=== PATIENT | female | born 1955 | race Caucasian/White ===

== ENCOUNTER 2016-04-15 13:26 | Emergency (ER) | payer BC ==
[~2016-04-15] VITALS: Ht 170.2 cm; Wt 102.1 kg
[~2016-04-15 13:26] MED LIST: ALBU83IN INH; ALDA25TA2 PO; AMLO25TA PO; ASPI81CH PO; HYDR100T PO; IMDU60TA PO; LASI40TA PO; MAGN250T2 PO; MICR10CA PO; MILKSUS PO; ZOCO20TA PO
[2016-04-15] MEDS ORDERED: AMLO25TA PO (13:58)
[2016-04-15] MEDS ORDERED: COMBAER6 INH (13:58)
[2016-04-15] MEDS ORDERED: ISOS20TA PO (13:58)
[2016-04-15] MEDS ORDERED: FIBE625T PO (13:58)
[2016-04-15] MEDS ORDERED: PRAV40TA2 PO (13:58)
[2016-04-15] MEDS ORDERED: K-TA10TA2 PO (13:58)
[2016-04-15] MEDS ORDERED: CARV12.5 PO (13:58)
[2016-04-15] MEDS ORDERED: HYDR100T PO (13:58)
[2016-04-15] MEDS ORDERED: TIOT18INH INH (13:58)
[2016-04-15] MEDS ORDERED: CALC1CAP31 PO (13:58)
[2016-04-15] MEDS ORDERED: PROA1AER INH (13:58)
[2016-04-15] MEDS ORDERED: VITA-176 PO (13:58)
[2016-04-15] MEDS ORDERED: calcitrol (13:58)
[2016-04-15] MEDS ORDERED: SPIR100T PO (13:58)
[2016-04-15] MEDS ORDERED: INSULANT SC (13:58)
[2016-04-15] MEDS ORDERED: ASPIRIN 81 MG CHEW TABLET PO ONE ×2 (14:00→14:30)
[2016-04-15 14:28] LABS: BASO # 0.1 K/mm3 (0.0-0.2); BASO % 0.5 % (0.0-1.0); EOS # 0.3 K/mm3 (0.0-0.50); EOS % 2.6 % (0.0-3.0); LARGE UNSTAINED CELL # 0.1 K/mm3 (0.0-0.4); LARGE UNSTAINED CELL % 0.7 % (0.0-4.0); LYMPH # 1.2 K/mm3 (1.5-4.5); LYMPH % 9.2 % (24.0-44.0); MEAN CORPUSCULAR HEMOGLOBIN 33.3 pg (27.0-33.0); MEAN CORPUSCULAR HGB CONC 34.4 g/dl (32.0-36.5); MEAN CORPUSCULAR VOLUME 96.9 fl (80.0-96.0); MONO # 0.6 K/mm3 (0.0-0.8); MONO % 4.6 % (0.0-5.0); NEUTROPHILS # 10.2 K/mm3 (1.8-7.7); NEUTROPHILS % 82.4 % (36.0-66.0); PLATELET COUNT, AUTOMATED 181 k/mm3 (150-450); RED CELL DISTRIBUTION WIDTH 12.3 % (11.5-14.5); WHITE BLOOD COUNT 12.4 K/mm3 (4.0-10.0)
[2016-04-15] MEDS ORDERED: ASPIRIN 81 MG CHEW TABLET ONE (14:34)
[2016-04-15 14:51] LABS: ANION GAP 11 MEQ/L (8-16); BLOOD UREA NITROGEN 39 MG/DL (7-18); CARBON DIOXIDE LEVEL 23 MEQ/L (21-32); CHLORIDE LEVEL 101 MEQ/L (98-107); CREATININE FOR GFR 2.51 MG/DL (0.55-1.02); GLOMERULAR FILTRATION RATE 20.7 (>45); GLUCOSE, FASTING 380 MG/DL (80-110); POTASSIUM SERUM 4.4 MEQ/L (3.5-5.1); SODIUM LEVEL 135 MEQ/L (136-145)
--- NOTE | 2016-04-15 15:07 | REP ---
Sitting portable chest x-ray: Single view. History: Chest pain. Comparison chest x-ray December 26, 2014. Findings: EKG monitoring electrodes overlie the chest. A multi lead pacemaker is again seen in the right heart via the left side. Heart is at the upper range of normal in size, unchanged. The lungs are symmetrically aerated and free of infiltrate. There is a soft tissue nodular opacity superimposed on one of the posterior ribs in the left apex, which could be a pulmonary nodule. This measures approximately 8 mm. It is not visible previously. Consider chest CT. Pleural angles are sharp. Pulmonary vasculature is not increased. There is no evidence of pleural effusion or pulmonary edema. Impression: Question 8 mm nodule left upper lobe. Pacemaker. Borderline heart size. Otherwise negative. Consider chest CT. Signed by Dyllan Akhtar MD 04/15/2016 04:44 P
[2016-04-15] MEDS ORDERED: MORPHINE 2 MG/ML 1ML SYRINGE IV ONE (15:30)
--- NOTE | 2016-04-15 15:33 | REP ---
REASON: Chest pain. The examination was ordered and performed without intravenous contrast. The lack of intravenous contrast significantly decreases the sensitivity of the examination particularly when assessing for an aortic dissection which is, according to the patient's history, a clinical consideration. There is no mediastinal or hilar adenopathy. There are no pleural or pericardial effusions. There is calcific atherosclerotic change seen in the aortic arch and descending thoracic aorta. There is no evidence of an abnormal intraluminal curvilinear density, and there is no evidence of abnormal centrally displaced calcium. The proximal descending thoracic aorta has a maximal dimension of 3.7 cm, and just distal to this, the measurement of the thoracic aorta is 2.8 cm. This somewhat bulbous configuration cannot be definitively determined as an aneurysm without intravenous contrast. The imaged upper abdomen shows bilateral low density adrenal gland thickening, likely benign. There is marked atrophy of the imaged portion of the left kidney. The osseous structures are within normal limits for the patient's age. A dual-chamber bipolar pacemaker device is in place. Evaluation of the lung simental shows no evidence of an abnormal nodule, mass, or opacity. IMPRESSION: 1. Exam limitations, as described above. Although there is no evidence of an aortic dissection, it cannot be completely ruled out due to the lack of intravenous contrast. 2. Possible small proximal descending thoracic aortic aneurysm, as described above. This too is difficult to evaluate without intravenous contrast, and followup is recommended if clinically indicated. 3. Benign-appearing bilateral adrenal gland thickening. 4. Left renal atrophy. 5. Other findings as described above. Signed by Timothy Washington DO 04/15/2016 03:50 P
[2016-04-15 15:54] VITALS: BP 165/81
--- NOTE | 2016-04-16 10:37 | ECGEPIP ---
Stationary ECG Study [facility] - ED Test Date: 2016-04-15 Pat Name: PATRICIA PARKS Department: Room: - Gender: F Demand Planning Analyst: tash : 1955 Requested By: Ekta Mari Order Number: [id number] Reading MD: Kb Jaeger Measurements Intervals [place] Rate: 59 P: 119 NE: 165 QRS: 252 QRSD: 138 T: -53 QT: 442 QTc: 441 Interpretive Statements ELECTRONIC ATRIAL PACEMAKER MARKED RIGHT AXIS DEVIATION RIGHT BUNDLE BRANCH BLOCK NSTTW ABNORMALITIES SIMILAR TO 10/08/13 Electronically Signed On 04-16-2016 10:36:33 EST by Kb Jaeger
== END 2016-04-15 14:33 | disposition short-term general hospital (02) ==
LOC: M ED 14:33
DX: M54.9 Dorsalgia, unspecified (principal); I25.10 Atherosclerotic heart disease of native coronary artery without angina pectoris; E11.9 Type 2 diabetes mellitus without complications; Z95.0 Presence of cardiac pacemaker; Z87.891 Personal history of nicotine dependence; I10 Essential (primary) hypertension; E78.5 Hyperlipidemia, unspecified; I50.20 Unspecified systolic (congestive) heart failure; Z88.8 Allergy status to other drugs, medicaments and biological substances; Z79.82 Long term (current) use of aspirin; Z79.899 Other long term (current) drug therapy

== ENCOUNTER → 2016-09-09 | Day surgery (SDC) | payer BC ==
[~2016-09-09] VITALS: Ht 170.2 cm; Wt 100.7 kg
[~2016-09-09] MED LIST changes: +ARNU1INH INH; +ASPIRIN 325 MG TAB PO ONE; +ASPIRIN 81 MG CHEW TABLET As Ordered ONE; +BUPIVACAINE HCL 0.5% 30 ML VIAL As Ordered ONE; +CALC1CAP31 PO; +CARV12.5 PO; +CARVedilol 6.25 MG TAB As Ordered ONE; +CARVedilol 6.25 MG TAB PO ONE; +CLOP75TA2 PO; +CLOPIDOGREL 300 MG TAB (PLAVIX) PO ONE; +COMBAER6 INH; +FIBE625T PO; +HEPARIN SOD (PORCINE) 5000 UNITS/ML VIAL As Ordered ONE; +INSULANT SC; +ISOS20TA PO; +ISOS60TA2 PO; +K-TA10TA2 PO; +KETAMINE HCL 200 MG/20 ML VIAL As Ordered ONE; +LIDOCAINE 1% SDV INJ 30 ML VIAL As Ordered ONE; +LIDOCAINE 2% INJ 100 MG/5 ML SDV (FOR ANES.) As Ordered ONE; +LR 1,000 ML IV ONE; -MAGN250T2 PO; +MAGN250T7 PO; +MIDAZOLAM INJ 2 MG/2 ML VIAL (J2250) As Ordered ONE; +NS 1,000 ML IV SCH; +ONDANSETRON 4MG/2ML VIAL (J2405) As Ordered ONE; +PRAV40TA2 PO; +PROAAER10 INH; +PROPOFOL 200 MG/20 ML VIAL As Ordered ONE; +SPIR100T PO; +TIOT18INH INH; +VITA-176 PO; +calcitrol; +fentaNYL 100 MCG/2 ML INJECTION (J3010) As Ordered ONE
[2016-09-09 16:50] VITALS: BP 169/79
--- NOTE | 2016-09-23 23:55 | RO ---
DATE OF PROCEDURE: 09/09/2016 PREPROCEDURE DIAGNOSIS: Chronic renal insufficiency, nearing end-stage renal disease. POSTPROCEDURE DIAGNOSIS: Chronic renal insufficiency, nearing end-stage renal disease. PROCEDURE: Left radiocephalic arteriovenous fistula formation. SURGEON: Dr. Destiny Cancino WOOD TYPE FINISHER: None. ANESTHESIA: Local MAC. ESTIMATED BLOOD LOSS: 20 mL. IV FLUID: 300 mL. HEPARIN: None. COMPLICATIONS: None. DRAINS: None. SPECIMENS: None. IMPLANTS: None. INDICATION: The patient is a 61-year-old female with chronic renal insufficiency who will require hemodialysis in the future and will undergo creation of arteriovenous fistula for future hemodialysis use. Risks, benefits and alternative treatment options were discussed with the patient. Alternative treatment options included but were not limited to no intervention. Benefits included but were not limited to presence of a functioning fistula at the time of induction of hemodialysis and avoiding use of a PermCath. Risks included but were not limited to infection, bleeding, worsening of patient's renal function requiring hemodialysis sooner than expected, failure of arteriovenous fistula to maintain patency with thrombosis, failure of arteriovenous fistula mature requiring secondary intervention, steal syndrome, possible need for further open surgical intervention, cerebrovascular accident, myocardial infarction, pulmonary embolus, deep vein thrombosis (DVT), loss of limb, loss of life and poor outcome. Patient understands, accepts these risks and consents to proceed. DESCRIPTION OF PROCEDURE: The patient was taken to the operating room, placed supine on the operating room table and the left upper extremity was prepped and draped in the standard surgical fashion. A time-out was then completed with myself and all the staff members in the room, confirming the appropriate procedure, patient and laterality. Two incisions were then made in the wrist overlying the radial artery and cephalic vein after anesthetizing the overlying skin with 1% lidocaine mixed with 0.5% Marcaine. The cephalic vein was sharply dissected free proximally and distally and then transected as far distal as possible with the remnant ligated with a #3-0 silk suture. The cephalic vein was then dilated with heparinized saline, brought through a tunnel between the two incisions and then anastomosed to the radial artery in an end-to-side fashion using #6-0 Prolene suture. There was good flow in the fistula at the completion of the anastomosis. Hemostasis was then obtained after which the incisions were closed using #3-0 Monocryl to approximate the skin in a running subcuticular fashion. Steri-Strips and dressings were applied. The patient tolerated the procedure well. All instrument, sponge and needle counts were correct at the end of the case. There were no complications. Dr. Cancino was present for and directed the entire case. The patient was transferred to the recovery room, awake, alert, extubated and in stable condition.
== END | disposition home or self-care (01) ==
LOC: M SDC 10:40
PROVIDERS: ATTEND Surgery Vascular Surgery
DX: N18.4 Chronic kidney disease, stage 4 (severe) (principal); N26.1 Atrophy of kidney (terminal); I25.10 Atherosclerotic heart disease of native coronary artery without angina pectoris; I15.0 Renovascular hypertension; I13.0 Hypertensive heart and chronic kidney disease with heart failure and stage 1 through stage 4 chronic kidney disease, or unspecified chronic kidney disease; E11.22 Type 2 diabetes mellitus with diabetic chronic kidney disease; I25.5 Ischemic cardiomyopathy; E78.00 Pure hypercholesterolemia, unspecified; J45.909 Unspecified asthma, uncomplicated; R33.9 Retention of urine, unspecified; D45 Polycythemia vera; E66.9 Obesity, unspecified; Z88.8 Allergy status to other drugs, medicaments and biological substances; Z79.899 Other long term (current) drug therapy; Z79.4 Long term (current) use of insulin; Z79.82 Long term (current) use of aspirin; Z87.891 Personal history of nicotine dependence; Z95.5 Presence of coronary angioplasty implant and graft; Z95.810 Presence of automatic (implantable) cardiac defibrillator; Z78.0 Asymptomatic menopausal state
CPT/HCPCS: 36821; J2250; J2405; J3010

== ENCOUNTER → 2016-09-17 | Outpatient (CLI) | payer BC ==
[~2016-09-17] MED LIST changes: -ASPIRIN 325 MG TAB PO ONE; -ASPIRIN 81 MG CHEW TABLET As Ordered ONE; -BUPIVACAINE HCL 0.5% 30 ML VIAL As Ordered ONE; -CARVedilol 6.25 MG TAB As Ordered ONE; -CARVedilol 6.25 MG TAB PO ONE; -CLOPIDOGREL 300 MG TAB (PLAVIX) PO ONE; -HEPARIN SOD (PORCINE) 5000 UNITS/ML VIAL As Ordered ONE; -KETAMINE HCL 200 MG/20 ML VIAL As Ordered ONE; -LIDOCAINE 1% SDV INJ 30 ML VIAL As Ordered ONE; -LIDOCAINE 2% INJ 100 MG/5 ML SDV (FOR ANES.) As Ordered ONE; -LR 1,000 ML IV ONE; -MIDAZOLAM INJ 2 MG/2 ML VIAL (J2250) As Ordered ONE; -NS 1,000 ML IV SCH; -ONDANSETRON 4MG/2ML VIAL (J2405) As Ordered ONE; -PROPOFOL 200 MG/20 ML VIAL As Ordered ONE; -fentaNYL 100 MCG/2 ML INJECTION (J3010) As Ordered ONE
--- NOTE | 2016-09-18 07:00 | REP ---
Clinical: Urinary retention. Technique: Lacy scale ultrasound examination using curved array transducer. Findings: The bladder is normal in appearance. No bladder wall thickening or mass lesion is identified. Prevoid bladder measures 7.4 x 9.0 x 5.6 cm. Postvoid bladder is completely collapsed. Impression: Normal bladder Signed by Leonardo Dior MD 09/18/2016 06:51 A
== END ==
LOC: M RAD 10:30
PROVIDERS: ATTEND Internal Medicine Nephrology
DX: R33.9 Retention of urine, unspecified (principal)

== ENCOUNTER → 2016-09-24 | Outpatient (CLI) | payer BC ==
[2016-09-24 16:06] LABS: CALCIUM LEVEL 9.6 MG/DL (8.8-10.2); CREATININE FOR GFR 2.11 MG/DL (0.55-1.02); GLOMERULAR FILTRATION RATE 25.3 (>45); POTASSIUM SERUM 4.9 MEQ/L (3.5-5.1)
== END ==
LOC: M WUC 08:46
PROVIDERS: ATTEND Surgery Vascular Surgery
DX: N18.6 End stage renal disease (principal)

== ENCOUNTER → 2016-09-30 | Outpatient (CLI) | payer BC ==
[~2016-09-30] MED LIST changes: +HEPARIN 1,000 UNITS/ML 10ML VIAL (FOR RADIOLOGY& DIALYSIS ONLY) As Ordered ONE; +ISOVUE-300 61% 50ML VIAL (Q9967) As Ordered ONE; +MIDAZOLAM INJ 2 MG/2 ML VIAL (J2250) As Ordered ONE; +fentaNYL 100 MCG/2 ML INJECTION (J3010) As Ordered ONE
--- NOTE | 2016-09-30 10:47 | REPKIM ---
DATE OF PROCEDURE: 09/30/2016 ATTENDING SURGEON: Dr. Destiny Cancino WEIGHT AND TEST BAR CLERK: Peg John and Kavitha Lovell, licensed radiologic technicians PREOPERATIVE DIAGNOSIS: Chronic renal insufficiency nearing end-stage renal disease. Dysfunctional left radiocephalic arteriovenous fistula. POSTOPERATIVE DIAGNOSIS: Chronic renal insufficiency nearing end-stage renal disease. Dysfunctional left radiocephalic arteriovenous fistula. PROCEDURE: Left radiocephalic arteriovenous fistulogram. INDICATION: Patient is a 61-year-old female with chronic renal insufficiency nearing end-stage renal disease who underwent creation of a left radiocephalic arteriovenous fistula which is pulsatile and small with non-maturation. Patient will undergo a fistulogram with possible angioplasty and/or stent. Risks, benefits, and alternative treatment options were discussed with the patient. Benefits included, but were not limited to maintenance of patency of the fistula. Alternative treatment options included, but were not limited to no intervention. Risks included, but were not limited to infection, bleeding, worsening of patient's renal failure requiring hemodialysis sooner than expected, possible need for open surgical intervention, steal syndrome, cerebrovascular accident, myocardial infarction, pulmonary embolism, deep venous thrombosis (DVT), loss of limb, loss of life, and poor outcome. Patient's questions were answered. Patient understands and accepts these risks and consents to proceed with a left radiocephalic arteriovenous fistulogram with possible angioplasty and/or stent. ANESTHESIA: Was local with 1 mL of 2% lidocaine. FLUOROSCOPIC TIME: 0.1 minutes. CONTRAST: 1 mL of Isovue 300. Heparin - none. Protamine - none. COMPLICATIONS: None. DRAINS: None. SPECIMENS: None. IMPLANTS: None. PROCEDURE: Patient was taken to the angiography suite, placed supine on the angiography room table and the left upper extremity was prepped and draped in a standard surgical fashion. The arteriovenous fistula was cannulated with a micropuncture needle after anesthetizing the overlying skin with 1% lidocaine. The micropuncture wire was advanced through the micropuncture needle which was upsized to a micropuncture sheath. A fistulogram was performed showing the fistula to be patent, but small in caliber, but was without obstruction or occlusion and did not require any intervention at this time. The micropuncture sheath was removed and manual compression applied at the puncture site for hemostasis. Dressings were then applied. Patient tolerated the procedure well. All instruments, sponge, and needle counts were correct at the end of the case. There were no complications. Dr. Cancino was present for and directed the entire case. The patient was transferred to the holding area and subsequently discharged in stable condition. RADIOLOGIC SUPERVISION AND INTERPRETATION: Initial fistulogram shows the cephalic vein to be patent to the antecubital fossa where the cephalic vein was patent into the upper arm. There were also a large number of collaterals crossing over into the deeper venous system with good outflow through the deeper venous system. CONCLUSION: The patient underwent a fistulogram showing the cephalic vein to be small in caliber, but patent all the way up the forearm and into the upper arm with good outflow through the deep and superficial venous systems. Patient was instructed to check the fistula twice daily and should there be any change in the fistula to notify me immediately.
== END | disposition home or self-care (01) ==
LOC: M RADPRO 06:55 → M IRPRO 06:55
PROVIDERS: ATTEND Surgery Vascular Surgery
DX: T82.898A Other specified complication of vascular prosthetic devices, implants and grafts, initial encounter (principal); N18.9 Chronic kidney disease, unspecified
CPT/HCPCS: 36901; C1894; Q9967

== ENCOUNTER → 2016-11-10 | Outpatient (CLI) | payer BC ==
[~2016-11-10] MED LIST changes: -HEPARIN 1,000 UNITS/ML 10ML VIAL (FOR RADIOLOGY& DIALYSIS ONLY) As Ordered ONE; +LIDOCAINE 2% MDV 20 ML VIAL As Ordered ONE; -MIDAZOLAM INJ 2 MG/2 ML VIAL (J2250) As Ordered ONE; -fentaNYL 100 MCG/2 ML INJECTION (J3010) As Ordered ONE
--- NOTE | 2016-11-26 13:34 | REPKIM ---
DATE OF PROCEDURE: 11/10/2016 ATTENDING SURGEON: Dr. Destiny Cancino SMOKING PIPE MOUNTER: Kavitha Lovell PREOPERATIVE DIAGNOSIS: Chronic renal insufficiency nearing end-stage renal disease. Dysfunctional left radiocephalic arteriovenous fistula. POSTOPERATIVE DIAGNOSIS: Chronic renal insufficiency nearing end-stage renal disease. Dysfunctional left radiocephalic arteriovenous fistula. PROCEDURE: Left radiocephalic arteriovenous fistulogram. INDICATION: Patient is a 61-year-old female who underwent creation of a left radiocephalic arteriovenous fistula which is pulsatile and there is concern for thrombosis and loss of the fistula. Patient is not yet on hemodialysis and will undergo a left radiocephalic arteriovenous fistulogram. Risks, benefits, and alternative treatment options were discussed with the patient. ANESTHESIA: Was local with 1 mL of 2% lidocaine. CONTRAST: 1 mL. COMPLICATIONS: None. DRAINS: None. SPECIMENS: None. IMPLANTS: None. PROCEDURE: Patient was taken to the angiography suite, placed supine on the angiography room table and the left upper extremity was prepped and draped in a standard surgical fashion. The left radiocephalic arteriovenous fistula was cannulated with a micropuncture needle after anesthetizing the overlying skin with 1% lidocaine. The micropuncture wire was advanced through the micropuncture needle which was upsized to a micropuncture sheath. A fistulogram was performed through the micropuncture sheath showing the cephalic vein to be widely patent at the antecubital fossa where there was dual outflow into the upper arm. The micropuncture sheath was removed and manual compression applied for hemostasis. Dressings were then applied. Patient tolerated the procedure well. All instruments, sponge, and needle counts were correct at the end of the case. There were no complications. Dr. Cancino was present for and directed the entire case. The patient was transferred to the holding area and subsequently discharged in stable condition. RADIOLOGIC SUPERVISION INTERPRETATION: The fistulogram shows the cephalic vein to be patent although small in caliber to the antecubital fossa there was no visualization above this area as there was dual outflow at the antecubital fossa and the patient is not yet on hemodialysis and there are contrast limitations. No intervention was required and the fistula was patent and will be allowed to mature spontaneously.
== END | disposition home or self-care (01) ==
LOC: M IRPRO 12:41
PROVIDERS: ATTEND Surgery Vascular Surgery
DX: T82.9XXA Unspecified complication of cardiac and vascular prosthetic device, implant and graft, initial encounter (principal); N18.6 End stage renal disease
CPT/HCPCS: 36901; C1894; Q9967

== ENCOUNTER → 2016-12-29 | Outpatient (CLI) | payer BC ==
[~2016-12-29] MED LIST changes: -ISOVUE-300 61% 50ML VIAL (Q9967) As Ordered ONE; -LIDOCAINE 2% MDV 20 ML VIAL As Ordered ONE
--- NOTE | 2016-12-29 13:52 | REPMRS ---
Patient History The patient states she has not had a clinical breast exam in over a year. Baseline Mammogram Patient is postmenopausal and is nulliparous. Family history of ovarian cancer in daughter at age 50 or over. Digital Woman Screen Mammo: December 29, 2016 - Exam #: [id number] Bilateral CC and MLO view(s) were taken. Technologist: Rosanne Solorzano, Technologist FINDINGS: There are scattered fibroglandular densities. There is no evidence of cancer on this mammogram. ASSESSMENT: BI-RADS/ACR category 2 mammogram. Benign finding(s). Recommendation Routine screening mammogram of both breasts in 1 year (for women over age 40). This mammogram was interpreted with the aid of an FDA-approved computer-aided dectection system. Electronically Signed By: Jamal Lacy MD 12/29/16 [id number]
== END ==
LOC: M WHC 13:02
PROVIDERS: ATTEND Student in an Organized Health Care Education/Training Program
DX: Z12.31 Encounter for screening mammogram for malignant neoplasm of breast (principal)

== ENCOUNTER → 2017-08-09 | Outpatient (CLI) | payer OTHER ==
[2017-08-09 13:30] LABS: BASO # 0.1 10^3/uL (0.0-0.2); BASO % 0.8 % (0.0-1.0); EOS # 0.2 10^3/uL (0.0-0.50); EOS % 1.5 % (0.0-3.0); HEMATOCRIT 48.2 % (36.0-47.0); HEMOGLOBIN 16.7 g/dl (12.0-15.5); LYMPH # 2.7 10^3/uL (1.5-4.5); LYMPH % 18.6 % (24.0-44.0); MEAN CORPUSCULAR HEMOGLOBIN 32.9 pg (27.0-33.0); MEAN CORPUSCULAR HGB CONC 34.6 g/dl (32.0-36.5); MEAN CORPUSCULAR VOLUME 95.1 fl (80.0-96.0); MONO % 6.9 % (0.0-5.0); NEUTROPHILS # 10.3 10^3/uL (1.8-7.7); NEUTROPHILS % 71.2 % (36.0-66.0); PLATELET COUNT, AUTOMATED 237 10^3/uL (150-450); RED BLOOD COUNT 5.07 10^6/uL (4.00-5.40); RED CELL DISTRIBUTION WIDTH 12.1 % (11.5-14.5); WHITE BLOOD COUNT 14.4 10^3/uL (4.0-10.0)
[2017-08-09 13:45] LABS: ESTIMATED AVERAGE GLUCOSE 243 MG/DL (60-110); HEMOGLOBIN A1c 10.1 %
[2017-08-09 13:47] LABS: ALBUMIN 4.3 GM/DL (3.2-5.2); ALBUMIN/GLOBULIN RATIO 1.08 (1.00-1.93); ALKALINE PHOSPHATASE 116 U/L (45-117); ALT/SGPT 25 U/L (12-78); ANION GAP 10 MEQ/L (8-16); AST/SGOT 12 U/L (7-37); BILIRUBIN,TOTAL 0.6 MG/DL (0.2-1.0); BLOOD UREA NITROGEN 44 MG/DL (7-18); CALCIUM LEVEL 10.1 MG/DL (8.8-10.2); CARBON DIOXIDE LEVEL 29 MEQ/L (21-32); CHLORIDE LEVEL 96 MEQ/L (98-107); CHOLESTEROL LEVEL 173 MG/DL (<200); CHOLESTEROL RISK RATIO 4.219 (<5); CREATININE FOR GFR 2.33 MG/DL (0.55-1.30); GLOMERULAR FILTRATION RATE 22.5 (>45); GLUCOSE, FASTING 281 MG/DL (70-100); HDL CHOLESTEROL 41 MG/DL (>40); NON-HDL-C 132 MG/DL; POTASSIUM SERUM 4.6 MEQ/L (3.5-5.1); SODIUM LEVEL 135 MEQ/L (136-145); TOTAL PROTEIN 8.3 GM/DL (6.4-8.2); TRIGLYCERIDES LEVEL 414 MG/DL (<150)
[2017-08-09 18:42] LABS: CREATININE, URINE 25.4 MG/DL; MALB URINE SIEMENS 8.7 MG/L; MAU/CREAT RATIO 34.2 MCG/MG (0.0-30.0)
== END ==
LOC: M WUC 12:06
DX: I10 Essential (primary) hypertension (principal); E11.9 Type 2 diabetes mellitus without complications
CPT/HCPCS: 84443

== ENCOUNTER → 2017-08-11 | Outpatient (CLI) | payer OTHER ==
[2017-08-11 13:17] LABS: FREE T4 1.12 NG/DL (0.76-1.46)
== END ==
LOC: M WUC 10:10
DX: R79.89 Other specified abnormal findings of blood chemistry (principal)
CPT/HCPCS: 84443

== ENCOUNTER → 2017-12-14 | Outpatient (CLI) | payer OTHER ==
[2017-12-14 12:40] LABS: HEMATOCRIT 45.9 % (36.0-47.0); HEMOGLOBIN 15.5 g/dl (12.0-15.5); MEAN CORPUSCULAR HGB CONC 33.8 g/dl (32.0-36.5); MEAN CORPUSCULAR VOLUME 97.7 fl (80.0-96.0); PLATELET COUNT, AUTOMATED 233 10^3/uL (150-450); RED CELL DISTRIBUTION WIDTH 11.9 % (11.5-14.5); WHITE BLOOD COUNT 13.7 10^3/uL (4.0-10.0)
[2017-12-14 12:50] LABS: ANION GAP 7 MEQ/L (8-16); BLOOD UREA NITROGEN 40 MG/DL (7-18); CALCIUM LEVEL 10.2 MG/DL (8.8-10.2); CARBON DIOXIDE LEVEL 30 MEQ/L (21-32); CHLORIDE LEVEL 95 MEQ/L (98-107); CREATININE FOR GFR 2.32 MG/DL (0.55-1.30); GLOMERULAR FILTRATION RATE 22.6 (>45); GLUCOSE, FASTING 271 MG/DL (70-100); POTASSIUM SERUM 4.2 MEQ/L (3.5-5.1); SODIUM LEVEL 132 MEQ/L (136-145)
== END ==
LOC: M WUC 08:50
DX: T82.198A Other mechanical complication of other cardiac electronic device, initial encounter (principal); Y83.1 Surgical operation with implant of artificial internal device as the cause of abnormal reaction of the patient, or of later complication, without mention of misadventure at the time of the procedure
CPT/HCPCS: 80048

== ENCOUNTER → 2018-04-29 | Outpatient (CLI) | payer OTHER ==
[~2018-04-29] MED LIST changes: -LASI40TA PO; +LASI40TA9 PO; +MILK120011 PO; -MILKSUS PO; -SPIR100T PO; +SPIR100T3 PO
[2018-04-29 13:13] LABS: MALB URINE SIEMENS 34.5 MG/L; MAU/CREAT RATIO 30.2 MCG/MG (0.0-30.0)
[2018-04-29 14:12] LABS: HEMOGLOBIN A1c 9.2 %
== END ==
LOC: M WUC 08:42
PROVIDERS: ATTEND Student in an Organized Health Care Education/Training Program
DX: E11.9 Type 2 diabetes mellitus without complications (principal)

== ENCOUNTER 2018-07-09 08:43 | Day surgery (SDC) | payer OTHER ==
[~2018-07-09] VITALS: Ht 170.2 cm; Wt 93.8 kg
[~2018-07-09 08:43] MED LIST changes: -ASPI81CH PO; +ASPI81CH49 PO; +BASA100I SC; +INCR1INH IN; +INSUHUMDS SC
[2018-07-09] MEDS ORDERED: NS 1,000 ML IV ONE (10:00)
[2018-07-09] MEDS ORDERED: PROPOFOL 200 MG/20 ML VIAL As Ordered ONE (13:12)
[2018-07-09] MEDS ORDERED: LIDOCAINE 2% INJ 100 MG/5 ML SDV (FOR ANES.) As Ordered ONE (13:12)
--- NOTE | 2018-07-09 13:29 | ROOR ---
Patient Name: Farida Cotton Procedure Date: 07/09/2018 10:51 AM Date of : 1955 Age: 63 Room: [facility] Gender: Female Note Status: Finalized Procedure: Colonoscopy Indications: Screening for colorectal malignant neoplasm Providers: Diogenes Castaneda MD Referring MD: Corrie Walker DO Requesting Provider: Linus Krishna MD Medicines: Monitored Anesthesia Care Complications: No immediate complications. Procedure: Pre-Anesthesia Assessment: - Prior to the procedure, a History and Physical was performed, and patient medications and allergies were reviewed. The patient is competent. The risks and benefits of the procedure and the sedation options and risks were discussed with the patient. All questions were answered and informed consent was obtained. Patient identification and proposed procedure were verified by the physician, the nurse and the anesthesiologist in the procedure room. Mental Status Examination: alert and oriented. Airway Examination: normal oropharyngeal airway and neck mobility. Respiratory Examination: clear to auscultation. CV Examination: normal. Prophylactic Antibiotics: The patient does not require prophylactic antibiotics. Prior Anticoagulants: The patient has taken Plavix (clopidogrel), last dose was 5 days prior to procedure. ASA Grade Assessment: III - A patient with severe systemic disease. After reviewing the risks and benefits, the patient was deemed in satisfactory condition to undergo the procedure. The anesthesia plan was to use monitored anesthesia care (MAC). Immediately prior to administration of medications, the patient was re-assessed for adequacy to receive sedatives. The heart rate, respiratory rate, oxygen saturations, blood pressure, adequacy of pulmonary ventilation, and response to care were monitored throughout the procedure. The physical status of the patient was re-assessed after the procedure. The colonoscopy was performed without difficulty. The patient tolerated the procedure well. The quality of the bowel preparation was good. The terminal ileum, ileocecal valve, appendiceal orifice, and rectum were photographed. Scope insertion time was 3 minutes. Scope withdrawal time was 9 minutes. The total duration of the procedure was 12 minutes. The Colonoscope was introduced through the anus and advanced to the terminal ileum, with identification of the appendiceal orifice and IC valve. Findings: The perianal and digital rectal examinations were normal. The terminal ileum appeared normal. Five sessile polyps were found in the transverse colon and ascending colon. The polyps were 5 to 8 mm in size. These polyps were removed with a cold snare. Resection and retrieval were complete. Verification of patient identification for the specimen was done by the physician and nurse using the patient's name, date and medical record number. Estimated blood loss was minimal. Multiple small and large-mouthed diverticula were found from sigmoid to transverse colon. There was no evidence of diverticular bleeding. A large amount of semi-solid stool was found from sigmoid to ascending colon, precluding visualization. Lavage of the area was performed using a large amount of sterile water, resulting in incomplete clearance with fair visualization. Non-bleeding external and internal hemorrhoids were found during retroflexion. The hemorrhoids were medium-sized. Impression: - The examined portion of the ileum was normal. - Five 5 to 8 mm polyps in the transverse colon and in the ascending colon, removed with a cold snare. Resected and retrieved. - Severe diverticulosis from sigmoid to transverse colon. There was no evidence of diverticular bleeding. - Stool from sigmoid to ascending colon. - Non-bleeding external and internal hemorrhoids. Recommendation: - Patient has a contact number available for emergencies. The signs and symptoms of potential delayed complications were discussed with the patient. Return to normal activities tomorrow. Written discharge instructions were provided to the patient. - High fiber diet. - Continue present medications. - Await pathology results. - Repeat colonoscopy in 1 year because the bowel preparation was poor and for surveillance based on pathology results. - Based on the biopsy results you will receive a phone call from GI clinic in 2-3 weeks to review the pathology results AND/OR your results will be faxed to your Primary care physician. - Return to GI clinic in 1 year. - Return to primary care physician. Diogenes Castaneda MD Diogenes Castaneda MD 07/09/2018 1:28:51 PM Electronically signed by Diogenes Castaneda MD Number of Addenda: 0 Note Initiated On: 07/09/2018 10:51 AM Estimated Blood Loss: Estimated blood loss was minimal.
[2018-07-09 13:44] VITALS: BP 140/90
== END 2018-07-09 13:43 | disposition home or self-care (01) ==
LOC: M OPP 08:43
PROVIDERS: ATTEND Internal Medicine Gastroenterology
DX: D12.2 Benign neoplasm of ascending colon (principal); D12.3 Benign neoplasm of transverse colon; K57.30 Diverticulosis of large intestine without perforation or abscess without bleeding; K64.8 Other hemorrhoids; Z12.11 Encounter for screening for malignant neoplasm of colon

== ENCOUNTER → 2018-09-14 | Outpatient (CLI) | payer OTHER ==
[~2018-09-14] MED LIST changes: +BUPIVACAINE HCL 0.5% 10 ML VIAL As Ordered ONE; +ISOVUE-300 61% 50ML VIAL (Q9967) As Ordered ONE; +LIDOCAINE 2% MDV 20 ML VIAL As Ordered ONE; +diphenhydrAMINE INJ 50MG/ML VIAL (J1200) As Ordered ONE
[2018-09-14 11:02] VITALS: BP 125/63
== END ==
LOC: M IRPRO 08:11
PROVIDERS: ATTEND Surgery Vascular Surgery
DX: N18.6 End stage renal disease (principal); Z53.09 Procedure and treatment not carried out because of other contraindication

== ENCOUNTER → 2018-10-15 | Outpatient (REF) | payer OTHER ==
[~2018-10-15] MED LIST changes: -BUPIVACAINE HCL 0.5% 10 ML VIAL As Ordered ONE; -ISOVUE-300 61% 50ML VIAL (Q9967) As Ordered ONE; -LIDOCAINE 2% MDV 20 ML VIAL As Ordered ONE; -diphenhydrAMINE INJ 50MG/ML VIAL (J1200) As Ordered ONE
[2018-10-15 16:05] LABS: BASO # 0.1 10^3/uL (0.0-0.2); BASO % 0.8 % (0.0-1.0); EOS # 0.2 10^3/uL (0.0-0.50); EOS % 1.4 % (0.0-3.0); HEMATOCRIT 47.6 % (36.0-47.0); HEMOGLOBIN 16.1 g/dl (12.0-15.5); LYMPH # 3.2 10^3/uL (1.5-4.5); LYMPH % 20.8 % (24.0-44.0); MEAN CORPUSCULAR HEMOGLOBIN 33.3 pg (27.0-33.0); MEAN CORPUSCULAR HGB CONC 33.8 g/dl (32.0-36.5); MEAN CORPUSCULAR VOLUME 98.3 fl (80.0-96.0); MONO # 1.1 10^3/uL (0.0-0.8); MONO % 7.3 % (0.0-5.0); NEUTROPHILS # 10.5 10^3/uL (1.8-7.7); PLATELET COUNT, AUTOMATED 238 10^3/uL (150-450); RED BLOOD COUNT 4.84 10^6/uL (4.00-5.40); WHITE BLOOD COUNT 15.4 10^3/uL (4.0-10.0)
[2018-10-15 16:19] LABS: ALBUMIN 4.3 GM/DL (3.2-5.2); ALT/SGPT 28 U/L (12-78); BILIRUBIN,TOTAL 0.4 MG/DL (0.2-1.0); BLOOD UREA NITROGEN 54 MG/DL (7-18); CALCIUM LEVEL 10.9 MG/DL (8.8-10.2); CARBON DIOXIDE LEVEL 28 MEQ/L (21-32); CHLORIDE LEVEL 94 MEQ/L (98-107); CHOLESTEROL LEVEL 176 MG/DL (<200); CHOLESTEROL RISK RATIO 4.756 (<5); FREE T4 0.99 NG/DL (0.76-1.46); GLOMERULAR FILTRATION RATE 18.9 (>45); GLUCOSE, FASTING 184 MG/DL (70-100); HDL CHOLESTEROL 37 MG/DL (>40); NON-HDL-C 139 MG/DL; SODIUM LEVEL 134 MEQ/L (136-145); TRIGLYCERIDES LEVEL 573 MG/DL (<150)
[2018-10-15 16:23] LABS: HEMOGLOBIN A1c 8.2 %
== END ==
LOC: M SFHCPLAZ 14:48
DX: Z00.00 Encounter for general adult medical examination without abnormal findings (principal)

== ENCOUNTER → 2018-11-16 | Outpatient (CLI) | payer OTHER ==
--- NOTE | 2018-11-16 15:14 | REPMRS ---
Patient History The patient states she has not had a clinical breast exam in over a year. Patient is postmenopausal and is nulliparous. Family history of ovarian cancer at age 50 in mother. No Hormone Replacement Therapy 3D TOMOSYNTHESIS WAS PERFORMED. [facility] lifetime risk for breast cancer is 6.9%. Digital Woman Screen Mammo: November 16, 2018 - Exam #: [id number] Bilateral CC and MLO view(s) were taken. Technologist: Dara Boles Technologist Prior study comparison: December 29, 2016, digital woman screen mammo performed at [facility]. FINDINGS: There are scattered fibroglandular densities. There has been no change in the appearance of the mammogram from the prior studies. There is a mild amount of residual fibroglandular tissue which is fairly symmetric. There is no interval development of dominant mass, architectural distortion, or clustered microcalcification suggestive of malignancy. Assessment: BI-RADS/ACR category 1 mammogram. Negative Mammogram. Recommendation Routine screening mammogram in 1 year (for women over age 40). This mammogram was interpreted with the aid of an FDA-approved computer-aided dectection system. Electronically Signed By: Jamal Lacy MD 11/16/18 [id number]
--- NOTE | 2018-11-18 11:34 | DEXA ---
AP SPINE L1 - L4 1.181 -0.1 1.4 LT FEMUR TOTAL 0.755 -2.0 -0.9 LT NECK 0.672 -2.6 -1.2 RT FEMUR TOTAL 0.796 -1.7 -0.6 RT NECK 0.641 -2.9 -1.5 TOTAL BODY TOTAL OTHER COMMENTS: Normal bone densitometry of the spine. There is osteoporosis of the hips. FOLLOW-UP: Recommendation for the next bone density exam: 2 years. BHUPENDRA
== END ==
LOC: M WHC 14:14
PROVIDERS: ATTEND Internal Medicine
DX: Z12.31 Encounter for screening mammogram for malignant neoplasm of breast (principal); Z13.820 Encounter for screening for osteoporosis; Z78.0 Asymptomatic menopausal state; Z80.41 Family history of malignant neoplasm of ovary

== ENCOUNTER → 2018-11-19 | Outpatient (REF) | payer OTHER ==
[2018-11-19 15:34] LABS: BASO # 0.1 10^3/uL (0.0-0.2); BASO % 1.1 % (0.0-1.0); EOS # 0.2 10^3/uL (0.0-0.5); EOS % 1.3 % (0.0-3.0); HEMATOCRIT 46.1 % (36.0-47.0); HEMOGLOBIN 15.6 g/dl (12.0-15.5); LYMPH # 2.4 10^3/uL (1.5-5.0); LYMPH % 18.3 % (24.0-44.0); MEAN CORPUSCULAR HEMOGLOBIN 34.1 pg (27.0-33.0); MEAN CORPUSCULAR HGB CONC 33.8 g/dl (32.0-36.5); MEAN CORPUSCULAR VOLUME 100.9 fl (80.0-96.0); MONO % 7.8 % (0.0-5.0); PLATELET COUNT, AUTOMATED 220 10^3/uL (150-450); RED BLOOD COUNT 4.57 10^6/uL (4.00-5.40)
[2018-11-19 15:59] LABS: ALBUMIN 4.1 GM/DL (3.2-5.2); ALT/SGPT 30 U/L (12-78); BILIRUBIN,TOTAL 0.5 MG/DL (0.2-1.0); BLOOD UREA NITROGEN 45 MG/DL (7-18); CALCIUM LEVEL 9.9 MG/DL (8.8-10.2); CARBON DIOXIDE LEVEL 29 MEQ/L (21-32); CHLORIDE LEVEL 100 MEQ/L (98-107); CREATININE FOR GFR 2.56 MG/DL (0.55-1.30); GLOMERULAR FILTRATION RATE 20.1 (>45); GLUCOSE, FASTING 144 MG/DL (70-100); SODIUM LEVEL 137 MEQ/L (136-145); TOTAL PROTEIN 7.9 GM/DL (6.4-8.2)
[2018-11-19 16:09] LABS: CREATININE, URINE 32.8 MG/DL; MALB URINE SIEMENS 7.2 MG/L; MAU/CREAT RATIO 21.9 MCG/MG (0.0-30.0); PTH INTACT 87.5 PG/ML (18.5-88.0); URINE TOTAL PROTEIN 9.8 MG/DL (0-12)
[2018-11-23 12:11] LABS: ALBUMIN 4.67 GM/DL (3.29-5.55); ALBUMIN % 59.1 % (55.8-66.1); ALPHA-1-GLOBULIN % 4.7 % (2.9-4.9); ALPHA-2-GLOBULINS % 13.2 % (7.1-11.8); BETA-1-GLOBULINS % 6.8 % (4.7-7.2); BETA-2-GLOBULINS % 4.7 % (3.2-6.5); GAMMA GLOBULIN % 11.5 % (11.1-18.8)
[2018-11-23 12:12] LABS: ALPHA-1-GLOBULINS 0.37 GM/DL (0.17-0.41); ALPHA-2-GLOBULINS 1.04 GM/DL (0.42-0.99); BETA-1-GLOBULINS 0.54 GM/DL (0.28-0.60); BETA-2-GLOBULINS 0.37 GM/DL (0.19-0.55); GAMMA GLOBULINS 0.91 GM/DL (0.65-1.58)
[2018-11-25 11:09] LABS: UPEP INTERPRETATION NO M-SPIKE NOTED; URINE VOLUME RANDOM ML
== END ==
LOC: M SFHCPLAZ 14:17
DX: E83.52 Hypercalcemia (principal); E11.65 Type 2 diabetes mellitus with hyperglycemia; R23.3 Spontaneous ecchymoses

== ENCOUNTER → 2019-03-23 | Outpatient (CLI) | payer OTHER ==
--- NOTE | 2019-03-24 08:04 | REP ---
Right upper extremity arterial and venous Doppler ultrasound: History: Vein mapping study right upper extremity. Chronic kidney disease stage IV. Encounter for preprocedural evaluation. Findings: The internal jugular, right subclavian, right brachial, right cephalic, and right basilic veins are anechoic and compressible. There is no evidence of right upper extremity venous thrombosis. Right upper extremity arterial velocity and size diameter chart: Axillary artery 54 cm/S, 6.5 mm Brachial artery 72 cm/S, 3.8 mm, radial artery 58 cm/S, 2.8 mm Ulnar artery 40 cm/S, 3.0 mm Right upper extremity vein diameter chart: Upper humerus basilic 2.6 mm, cephalic 4.0 mm Mid humerus basilic 3.4 mm, cephalic 3.4 mm Lower humerus basilic 3.7 mm, cephalic 3.2 mm Upper forearm basilic 3.6 mm, cephalic 2.8 mm Mid forearm basilic 3.2 mm, cephalic 2.6 mm Wrist basilic 3.0 mm, cephalic 1.9 mm Median cubital 3.5 mm Electronically Signed by Dyllan Akhtar MD 03/24/2019 07:56 A
== END ==
LOC: M RAD 08:33
PROVIDERS: ATTEND Surgery Vascular Surgery
DX: Z01.818 Encounter for other preprocedural examination (principal); N18.4 Chronic kidney disease, stage 4 (severe)

== ENCOUNTER 2019-04-03 17:51 | Inpatient (IN) | payer OTHER ==
[~2019-04-03] VITALS: Ht 170.2 cm; Wt 88.0 kg
[~2019-04-03 17:51] MED LIST changes: -INCR1INH IN; +INCR1INH INH
[2019-04-03 18:51] LABS: HEMATOCRIT 24.8 % (36.0-47.0); HEMOGLOBIN 7.4 g/dl (12.0-15.5); MEAN CORPUSCULAR HEMOGLOBIN 27.3 pg (27.0-33.0); MEAN CORPUSCULAR HGB CONC 29.8 g/dl (32.0-36.5); MEAN CORPUSCULAR VOLUME 91.5 fl (80.0-96.0); RED BLOOD COUNT 2.71 10^6/uL (4.00-5.40); WHITE BLOOD COUNT 23.3 10^3/uL (4.0-10.0)
[2019-04-03 18:53] LABS: PLATELET COUNT, AUTOMATED 49 10^3/uL (150-450)
[2019-04-03 19:14] LABS: BLOOD UREA NITROGEN 49 MG/DL (7-18); CALCIUM LEVEL 8.8 MG/DL (8.8-10.2); CARBON DIOXIDE LEVEL 24 MEQ/L (21-32); CHLORIDE LEVEL 102 MEQ/L (98-107); CK-MB VALUE MASS < 1.0 NG/ML (<3.6); CPK CREATINE PHOSPHOKINASE 18 U/L (26-192); CREATININE FOR GFR 2.72 MG/DL (0.55-1.30); GLOMERULAR FILTRATION RATE 18.7 (>45); GLUCOSE, FASTING 167 MG/DL (70-100); MB/CK RELATIVE INDEX 5.56 (< OR =4); NT-PRO BNP 1727 PG/ML (<125); POTASSIUM SERUM 4.8 MEQ/L (3.5-5.1); SODIUM LEVEL 133 MEQ/L (136-145); TROPONIN I < 0.02 NG/ML (< 0.10)
[2019-04-03 19:17] LABS: ATYPICAL LYMPH 4 % (0-5); EOSINOPHILS 1 % (0-3); INFLUENZA A AMPLIFICATION NEGATIVE (NEGATIVE); INFLUENZA B AMPLIFICATION NEGATIVE (NEGATIVE); LYMPHOCYTES 28 % (16-44); METAMYELOCYTES 1 % (0-0); MONOCYTES 12 % (0-5); MYELOCYTES 9 % (0-0); NEUTROPHILS 38 % (28-66); PROMYELOCYTES 2 % (0-0)
[2019-04-03 19:19] LABS: ANISOCYTOSIS 2+; HYPOCHROMASIA 2+
--- NOTE | 2019-04-03 19:21 | REP ---
Clinical: Cough and dyspnea. Technique: PA and lateral. Comparison: 04/15/2016. Findings: Left lower lobe consolidation. Mediastinum and cardiac silhouette are normal / stable. Pacemaker again noted. No effusion. No pneumothorax. Skeletal structures intact. Impression: Left lower lobe consolidation. Follow-up to resolution recommended. Electronically Signed by Leonardo Dior MD 04/03/2019 07:12 P
[2019-04-03 19:22] LABS: SCHISTOCYTES 1+; SPHEROCYTES 2+
[2019-04-03 19:23] LABS: PLATELET ESTIMATE DECREASED (NORMAL); TEAR DROP CELLS 1+
[2019-04-03] MEDS ORDERED: PIPERACILLIN/TAZOBACTAM SOD 2.25 GM in D5W MINI-BAG PLUS 50 ML IV ONE (20:15)
[2019-04-03 20:52] LABS: INR 1.41
[2019-04-03 20:53] LABS: PARTIAL THROMBOPLASTIN TIME 35.6 SECONDS (25.0-38.4)
[2019-04-03 20:55] LABS: D-DIMER QUANT 550.79 ng/ml (<500)
[2019-04-03] MEDS ORDERED: HEPARIN SOD (PORCINE) 5000 UNITS/ML VIAL (J1644 PER 1000UNITS) SC SCH (21:00)
[2019-04-03] MEDS ORDERED: PROAAER10 INH (21:13)
--- NOTE | 2019-04-03 21:19 | HPEPDOC ---
General Date of Admission 04/03/19 Date of Service: Apr 03, 2019 Chief Complaint The patient is a 64-year-old female admitted with a reason for visit of Short Of Breath. Source: Patient Exam Limitations: No limitations Timing/Duration: Week(s) Severity: Mild Associated Symptoms: Shortness of breath History of Present Illness Patient is 64 years old female with past medical history of coronary artery diseases, status post stent placement, systolic CHF, COPD with active smoker presented hospital with increased shortness of breath, cough, generalized weakness. Patient stated that his symptoms started around one week ago and became progressively worse. In emergency room patient was found to have leukocytosis of 23, hemoglobin of 7.4, platelet count 49, neutrophils of 39, d- dimer 550, PT 17. Chest x-ray showed Left lower lobe consolidation. Dr. Leiva was contacted by phone he recommended FISH, DIC panel. Patient denied fever, chills, nausea, vomiting, chest pain, palpitations, diarrhea or dysuria Home Medications Scheduled Amlodipine Besylate (Amlodipine Besylate) 2.5 Mg Tab, 5 MG PO DAILY, (Reported) Aspirin (Aspirin) 81 Mg Chw, 81 MG PO DAILY, (Reported) Calcium Polycarbophil (Fibercon) 625 Mg Tab, 625 MG PO DAILY, (Reported) Carvedilol (Carvedilol) 12.5 Mg Tab, 12.5 MG PO BID, (Reported) Clopidogrel Bisulfate (Clopidogrel) 75 Mg Tablet, 75 MG PO DAILY, (Reported) Insulin Glargine,Hum.rec.anlog (Basaglar Kwikpen U-100) 100 Unit/1 Ml Insuln.pen, 30 UNIT SC QHS, (Reported) Insulin Human Lispro (Humalog) 100 Unit/1 Ml Vial, 1 UNIT SC TID, (Reported) Isosorbide Mononitrate (Isosorbide Mononitrate ER) 60 Mg Tab, 60 MG PO DAILY, (Reported) Pravastatin Sodium (Pravastatin Sodium) 40 Mg Tab, 40 MG PO DAILY, (Reported) Spironolactone (Spironolactone) 100 Mg Tab, 100 MG PO DAILY, (Reported) Umeclidinium Staples (Incruse Ellipta) 62.5 Mcg Blst.w.dev, 1 PUFF INH DAILY, (Reported) Scheduled PRN Albuterol Sulfate (Proair Hfa) 8.5 Gm Hfa.aer.ad, 2 PUFF INH Q4-6HP PRN for wheezing, (Reported) Furosemide (Lasix) 40 Mg Tab, 40 MG PO DAILY PRN for EDEMA IN LEGS, (Reported) Allergies Coded Allergies: losartan (Verified Allergy, Severe, throat swelling, 06/28/18) Past Medical History Medical History AICD 2009 ECHOCARDIOGRAM 2013 EF 40% SYSTOLIC CHF ISCHEMIC CARDIOMYOPATHY- FOLLOWS WITH DR. COLEY CARDIAC STENT X 2 IN 2009- Mariel LOBATO CARDIAC STENT X 2 AT [facility] 03/2016 TOBACCO ABUSE (QUIT 2013) CHRONIC KIDNEY DISEASE STAGE 4, GFR FROM OUTSIDE RECORDS 21% IN JANUARY 2015. FOLLOWS WITH DR. BLUE ATROPHIC LEFT KIDNEY - RENAL 2013 POLYCYTHEMIA: WAS REFERRED TO PULMONOLOGY FOR HECTOR BUT STATES THAT SHE IS NOT READY TO MAKE APPOINTMENT ASTHMA OBESITY TYPE II DM SYSTOLIC CHF WITH REDUCED LEFT VENTRICULAR FUNCTION, NYHA CLASS 2 ABNORMAL OXIMETRY 10-YR ASCVD RISK: 8.3% HYPERCHOLESTEROLEMIA Surgical History PACEMAKER WITH DEFIBRILLATOR-[employer] 2009 2 CARDIAC STENTS 2009 2 CARDIAC STENTS-[facility] 03/2016 PORTACATH PLACEMENT 09/09/16 PACEMAKER WITH DEFIB REPLACEMENT 12/2017 Family History FATHER: 69 YRS, [place] AND DIABETES MELLITUS MOTHER: 62 YRS, THROAT, THYROID, UTERINE CANCERS SIBLINGS: ALIVE, LUPUS, DIAGNOSED WITH DIABETES, HYPERTENSION, UNSPECIFIED HEART DISEASE 3 BROTHER(S) , 3 SISTER(S) . SISTERS WITH DIABETES AND LUPUS, 3 BROTHERS WITH CABG. Social History * Smoker: Denies, current smoker Alcohol: Denies Drugs: denies A-FIB/CHADSVASC A-FIB History Current/History of A-Fib/PAF?: No Current PO Anticoag Therapy: No Review of Systems Constitutional: Reports: Malaise; Denies: Chills, Fever Eyes: Reports: Pain ENT: Denies: Head Aches Skin: Denies: Rash Pulmonary: Reports: Dyspnea, Cough Cardiovascular: Denies: Chest Pain, Palpitations Gastrointestinal: Denies: Nausea, Vomiting Genitourinary: Denies: Dysuria, Frequency Hematologic: Denies: Bruising Endocrine: Denies: Polydipsia, Polyphagia Musculoskeletal: Denies: Neck Pain Neurological: Denies: Weakness Psych: Reports: Mood Normal Physical Examination General Exam: Positive: Alert, Cooperative Eye Exam: Positive: PERRLA ENT Exam: Positive: Atraumatic Neck Exam: Positive: Supple; Negative: JVD Chest Exam: Positive: Clear to auscultation Heart Exam: Positive: Rate Normal Telemetry: Positive: No significant arrhythmia Abdomen Exam: Positive: Normal bowel sounds Extremity Exam: Positive: Clubbing; Negative: Cyanosis Skin Exam: Positive: Nl turgor and temperature Neuro Exam: Positive: Normal Gait, Strength at 5/5 X4 ext, Cranial Nerves 3-12 NL Psych Exam: Positive: Mental status NL Vital Signs Vital Signs Date Time Temp Pulse Resp B/P (MAP) Pulse Ox O2 Delivery O2 Flow Rate FiO2 04/03/19 19:15 58 107/51 (69) 96 Room Air 04/03/19 18:12 98.0 20 Laboratory Data Labs 24H Laboratory Tests 2 04/03/19 18:37: Immature Granulocyte % (Auto) , Neutrophils (%) (Auto) , Monocytes # (Auto) , Nucleated Red Blood Cells % (auto) 11.6H, Neutrophils 38, Band Neutrophils 5, Lymphocytes (Manual) 28, Monocytes (Manual) 12H, Eosinophils (Manual) 1, Metamyelocytes 1H, Myelocytes 9H, Promyelocytes 2H, Atypical Lymphocytes 4, Hypochromasia 2+, Anisocytosis 2+, Macrocytosis 2+, Spherocytes 2+, Schistocytes 1+, Tear Drop Cells 1+, Platelet Estimate DECREASED, Immature Platelet Fraction 42.8H, Anion Gap 7L, Glomerular Filtration Rate 18.7L, Lactic Acid Level 1.1, Calcium Level 8.8, Total Creatine Kinase 18L, Creatine Kinase MB < 1.0, Creatine Kinase MB Relative Index 5.56H, Troponin I < 0.02, RP-Xew-L-Type Natriuretic Peptide 1727H, Influenza Type A (RT-PCR) NEGATIVE, Influenza Type B (RT-PCR) NEGATIVE 04/03/19 20:30: Prothrombin Time 17.0H, Prothromb Time International Ratio 1.41, Activated Partial Thromboplast Time 35.6, D-Dimer, Quantitative 550.79H CBC/BMP Laboratory Tests 04/03/19 18:37 Microbiology Microbiology 04/03/19 Blood Culture, Received Pending 04/03/19 Blood Culture, Received Pending Assessment/Plan Patient is 64 years old female with past medical history of coronary artery diseases, status post stent placement, systolic CHF, COPD with active smoker presented hospital with increased shortness of breath, cough, generalized weakness. Patient stated that his symptoms started around one week ago and became progressively worse. In emergency room patient was found to have leukocytosis of 23, hemoglobin of 7.4, platelet count 49, neutrophils of 39, d- dimer 550, PT 17. Chest x-ray showed Left lower lobe consolidation Problems (1) Pneumonia Status: Acute Problem Text: Patient has cough, consolidation on the imaging study Levofloxacin IV CT chest Sputum culture Incentive spirometry Inhalers (2) Anemia Status: Acute Problem Text: Unknown etiology Could be secondary to CLL, myelofibrosis, MDS We will check iron study Stool for blood Flow cytometry, peripheral smear, DIDIER Appreciate/agree with trout farmer consult Will check Babesia AB and Ehrlichia PCR (3) Leukocytosis Status: Acute Problem Text: Secondary to infection, there is concern for malignancy especially CLL (4) Thrombocytopenia Status: Acute Problem Text: Unknown etiology for now see above DIC panel negative for hemolysis Will check liver panel (5) Diabetes mellitus Status: Chronic Problem Text: Insulin sliding scale Detemir 15 units twice a day Plan / VTE VTE Prophylaxis Ordered?: No (thrombocytopenia) BOWEN CLANCY DO Apr 03, 2019 21:19
[2019-04-03] MEDS ORDERED: FUROSEMIDE 40 MG TAB PO PRN (21:30)
[2019-04-03] MEDS ORDERED: ALBUTEROL 90 MCG/ACT 8GM HFA INHALER INH PRN (21:30)
[2019-04-03] MEDS ORDERED: GLUCOSE 4 GM CHEW TABLET PO PRN (21:45)
[2019-04-03] MEDS ORDERED: GLUCAGON FOR INJ 1 MG VIAL (J1610) SC PRN (21:45)
[2019-04-03] MEDS ORDERED: DEXTROSE 50% 50 ML SYRINGE IV PRN (21:45)
[2019-04-03] MEDS ORDERED: LevoFLOXacin IV 750 MG in IV 1 EA IV SCH (22:00)
[2019-04-03 22:08] LABS: ALBUMIN 3.1 GM/DL (3.2-5.2); ALT/SGPT 20 U/L (12-78); BILIRUBIN,DIRECT 0.4 MG/DL (0.0-0.2); BILIRUBIN,TOTAL 0.9 MG/DL (0.2-1.0); IRON (FE) 92 UG/DL (50-170); PERCENT SATURATION 28.3 % (13.2-45.0); TOTAL IRON BINDING CAPACITY 325 UG/DL (250-450); TOTAL PROTEIN 6.8 GM/DL (6.4-8.2)
[2019-04-03 22:12] VITALS: BP 117/51
[2019-04-03] MEDS: CARVedilol 12.5 MG TAB PO SCH (22:43)
[2019-04-03] MEDS: HumaLOG INSULIN (NovoLOG) PER UNIT SC SCH (22:43)
[2019-04-03] MEDS: LEVEMIR (INSULIN DETEMIR) 1 UNITS/0.01ML SC SCH (22:43)
[2019-04-04 06:00] VITALS: BP 107/57
[2019-04-04 07:38] LABS: HEMOGLOBIN 7.2 g/dl (12.0-15.5); MEAN CORPUSCULAR HEMOGLOBIN 27.5 pg (27.0-33.0); MEAN CORPUSCULAR VOLUME 91.6 fl (80.0-96.0); RED BLOOD COUNT 2.62 10^6/uL (4.00-5.40); WHITE BLOOD COUNT 26.4 10^3/uL (4.0-10.0)
[2019-04-04 07:51] LABS: CALCIUM LEVEL 9.2 MG/DL (8.8-10.2); CREATININE FOR GFR 2.66 MG/DL (0.55-1.30); GLOMERULAR FILTRATION RATE 19.2 (>45); MAGNESIUM LEVEL 2.7 MG/DL (1.8-2.4); POTASSIUM SERUM 5.2 MEQ/L (3.5-5.1)
[2019-04-04 07:57] LABS: PLATELET COUNT, AUTOMATED 49 10^3/uL (150-450)
[2019-04-04] MEDS: LEVEMIR (INSULIN DETEMIR) 1 UNITS/0.01ML SC SCH ×2 (08:08→22:03)
[2019-04-04] MEDS: HumaLOG INSULIN (NovoLOG) PER UNIT SC SCH ×4 (08:09→22:03)
[2019-04-04] MEDS: amLODIPine 5 MG TAB PO SCH (08:10)
[2019-04-04] MEDS: ISOSORBIDE MON. (IMDUR) 60 MG XR TAB PO SCH (08:10)
[2019-04-04] MEDS: PRAVASTATIN 20 MG TAB PO SCH (08:10)
[2019-04-04] MEDS: CARVedilol 12.5 MG TAB PO SCH ×2 (08:11→22:01)
--- NOTE | 2019-04-04 08:33 | ECGEPIP ---
[facility] - ED Test Date: 2019-04-03 Pat Name: PATRICIA PARKS Department: Room: [place] [address] Gender: Female Title Coordinator: XAVIER : 1955 Requested By: Kb Vidales Order Number: [id number] Reading MD: Ekta Mari Measurements Intervals [place] Rate: 62 P: 28 LA: 140 QRS: 89 QRSD: 132 T: 9 QT: 447 QTc: 456 Interpretive Statements SINUS RHYTHM INDETERMINATE AXIS RIGHT BUNDLE BRANCH BLOCK NSTTW abnormalities PRIOR ATRIAL PACED 04/15/16 Electronically Signed on 04-04-2019 8:33:12 EST by Ekta Mari
[2019-04-04] MEDS ORDERED: ASPIRIN 81 MG CHEW TABLET PO SCH (09:00)
[2019-04-04] MEDS ORDERED: SPIRONOLACTONE 50 MG TAB PO SCH (09:00)
[2019-04-04] MEDS ORDERED: CLOPIDOGREL 75 MG TAB PO SCH (09:00)
--- NOTE | 2019-04-04 12:08 | IPNPDOC ---
Subjective Date Seen The patient was seen on 04/04/19. Subjective Chief Complaint/HPI Farida feels well this morning, no sob, not wearing any oxygen. Denies any chest discomfort. Objective Physical Examination General Exam: Positive: Alert, Cooperative Eye Exam: Positive: PERRLA ENT Exam: Positive: Atraumatic Neck Exam: Positive: Supple; Negative: JVD Chest Exam: Positive: Clear to auscultation Heart Exam: Positive: Rate Normal Telemetry: Positive: No significant arrhythmia Abdomen Exam: Positive: Normal bowel sounds Extremity Exam: Positive: Clubbing; Negative: Cyanosis Skin Exam: Positive: Nl turgor and temperature Neuro Exam: Positive: Normal Gait, Strength at 5/5 X4 ext, Cranial Nerves 3-12 NL Psych Exam: Positive: Mental status NL Assessment /Plan Assessment # New-onset pancytopenia - FISH pending, Check SPEP + UPEP - PS showing atypical lymphs - consult oncology - will hold asa + Plavix starting now, likely will need BM biopsy this admission. Can resume once this is obtained. - iron studies reviewed, add ferritin # CKD stage 4 with mild hyperkalemia - stop Aldactone, resume when K normalized - avoid nephrotoxins # LLL consolidation possibly indicative of CAP (clinically patient does not have PNA) # Smoker - on renal dosed IV levaquin - CT chest w/o contrast to r/o lung mass - neb # Chronic CAD (last stents placed 2016) # Hyperlipidemia - hold asa + plavix with acute platelet drop and likely need for BM bx - continue coreg + imdur + pravastatin # HTN - continue norvasc # Chronic systolic CHF (LVEF 40%) s/p AICD/PPM - continue lasix # IDDM2 - Levemir 15 units bid and SS Plan/VTE VTE Prophylaxis Ordered?: No VTE Exclusion Mechanical Proph: N/A:VTE Prophy Ordered VTE Exclusion Pharmacological: Thrombocytopenia VS, I&O, 24H, Fishbone Vital Signs/I&O Vital Signs Date Time Temp Pulse Resp B/P (MAP) Pulse Ox O2 Delivery O2 Flow Rate FiO2 04/04/19 08:10 108/50 04/04/19 08:10 57 04/04/19 06:00 96.7 17 97 Room Air I&O- Last 24 Hours up to 6 AM 04/04/19 06:00 Intake Total 500 ml Output Total 400 ml Balance 100 ml Laboratory Data 24H LABS Laboratory Tests 2 04/03/19 18:27: Differential Slide Review Report, Peripheral Blood Smear Path Consult PERIPHERAL SMEAR 04/03/19 18:37: Immature Granulocyte % (Auto) , Neutrophils (%) (Auto) , Monocytes # (Auto) , Nucleated Red Blood Cells % (auto) 11.6H, Neutrophils 38, Band Neutrophils 5, Lymphocytes (Manual) 28, Monocytes (Manual) 12H, Eosinophils (Manual) 1, Metamyelocytes 1H, Myelocytes 9H, Promyelocytes 2H, Atypical Lymphocytes 4, Hypochromasia 2+, Anisocytosis 2+, Macrocytosis 2+, Spherocytes 2+, Schistocytes 1+, Tear Drop Cells 1+, Platelet Estimate DECREASED, Immature Platelet Fraction 42.8H, Anion Gap 7L, Glomerular Filtration Rate 18.7L, Lactic Acid Level 1.1, Calcium Level 8.8, Iron Level 92, Total Iron Binding Capacity 325, Transferrin % Saturation 28.3, Total Bilirubin 0.9, Direct Bilirubin 0.4H, Aspartate Amino Transf (AST/SGOT) 19, Alanine Aminotransferase (ALT/SGPT) 20, Alkaline Phosphatase 77, Total Creatine Kinase 18L, Creatine Kinase MB < 1.0, Creatine Kinase MB Relative Index 5.56H, Troponin I < 0.02, MW-Ocu-Y-Type Natriuretic Peptide 1727H, Total Protein 6.8, Albumin 3.1L, Albumin/Globulin Ratio 0.84L, Influenza Type A (RT-PCR) NEGATIVE, Influenza Type B (RT-PCR) NEGATIVE 04/03/19 20:30: Prothrombin Time 17.0H, Prothromb Time International Ratio 1.41, Activated Partial Thromboplast Time 35.6, D-Dimer, Quantitative 550.79H 04/03/19 21:07: Bedside Glucose (Misc Panel) 233H 04/03/19 22:19: Bedside Glucose (Misc Panel) 253H 04/03/19 22:31: 04/04/19 00:05: 04/04/19 07:16: Nucleated Red Blood Cells % (auto) 9.6H, Anion Gap 8, Glomerular Filtration Rate 19.2L, Calcium Level 9.2, Magnesium Level 2.7H 04/04/19 11:32: Bedside Glucose (Misc Panel) 305H CBC/BMP Laboratory Tests 04/03/19 18:37 04/04/19 07:16 Microbiology Microbiology 2/16/20 Gram Stain, Received Pending 04/03/19 Sputum Culture, Received Pending 04/03/19 Blood Culture, Received Pending 04/03/19 Blood Culture, Received Pending KOKO GLASGOW MD Apr 04, 2019 12:08
--- NOTE | 2019-04-04 12:10 | REP ---
Clinical: Pancytopenia. High risk factors. Technique: Axial noncontrast images from the thoracic inlet to the upper abdomen with coronal and sagittal re-formations. Comparison: 04/15/2016 Findings: Moderate emphysematous changes with mild bronchiectasis and chronic peribronchial thickening. No significant nodule. No consolidation. No effusion. No mass lesion. No pneumothorax. No axillary, hilar, or E. Adenopathy appreciated. Atherosclerotic changes to the thoracic aorta and coronary arteries noted without aortic aneurysm. No cardiomegaly or pericardial effusion. Surrounding musculoskeletal structures demonstrate age-related degenerative changes. Pacemaker in satisfactory position. Impression: Moderate emphysematous changes. No acute mediastinal or pleuroparenchymal process. Electronically Signed by Leonardo Dior MD 04/04/2019 12:02 P
[2019-04-04 13:40] LABS: FERRITIN 511 NG/ML (8-252)
[2019-04-04 14:00] VITALS: BP 125/54
[2019-04-04] MEDS ORDERED: NS 1,000 ML IV SCH (18:41)
[2019-04-04] MEDS ORDERED: ACETAMINOPHEN TAB 650MG DOSE (2X325MG) PO ONE (18:45)
[2019-04-04] MEDS ORDERED: diphenhydrAMINE 25 MG CAP PO ONE (18:45)
[2019-04-04 20:14] LABS: FOLATE 5.2 NG/ML (>5.4)
[2019-04-04 22:00] VITALS: BP 119/55
[2019-04-04 23:18] VITALS: BP 98/48
[2019-04-04 23:33] VITALS: BP 118/56
[2019-04-05 00:33] VITALS: BP 109/51
[2019-04-05 01:33] VITALS: BP 115/55
[2019-04-05 02:33] VITALS: BP 108/55
[2019-04-05 05:52] LABS: HEMATOCRIT 26.8 % (36.0-47.0); HEMOGLOBIN 8.2 g/dl (12.0-15.5); MEAN CORPUSCULAR HGB CONC 30.6 g/dl (32.0-36.5); MEAN CORPUSCULAR VOLUME 91.5 fl (80.0-96.0); PLATELET COUNT, AUTOMATED 45 10^3/uL (150-450); RED BLOOD COUNT 2.93 10^6/uL (4.00-5.40); WHITE BLOOD COUNT 22.1 10^3/uL (4.0-10.0)
[2019-04-05 06:00] VITALS: BP 102/55
[2019-04-05 06:11] LABS: ANISOCYTOSIS 2+; LYMPHOCYTES 33 % (16-44); METAMYELOCYTES 9 % (0-0); MYELOCYTES 14 % (0-0); NEUTROPHILS 43 % (28-66); PLATELET ESTIMATE MARKED DECREASE (NORMAL); PROMYELOCYTES 1 % (0-0)
[2019-04-05 06:12] LABS: HYPOCHROMASIA 2+
[2019-04-05 06:13] LABS: GIANT PLATELETS 1+
[2019-04-05 06:17] LABS: CALCIUM LEVEL 8.9 MG/DL (8.8-10.2); CREATININE FOR GFR 2.48 MG/DL (0.55-1.30); GLOMERULAR FILTRATION RATE 20.8 (>45); POTASSIUM SERUM 5.2 MEQ/L (3.5-5.1)
[2019-04-05] MEDS: HumaLOG INSULIN (NovoLOG) PER UNIT SC SCH ×4 (08:34→20:22)
[2019-04-05] MEDS: PRAVASTATIN 20 MG TAB PO SCH (08:34)
[2019-04-05] MEDS: LEVEMIR (INSULIN DETEMIR) 1 UNITS/0.01ML SC SCH ×2 (08:35→20:23)
[2019-04-05] MEDS: amLODIPine 5 MG TAB PO SCH (09:00)
[2019-04-05] MEDS: ISOSORBIDE MON. (IMDUR) 60 MG XR TAB PO SCH (09:00)
[2019-04-05] MEDS: CARVedilol 12.5 MG TAB PO SCH ×2 (09:00→20:23)
[2019-04-05 10:47] LABS: ALBUMIN % 52.4 % (55.8-66.1); ALPHA-1-GLOBULIN % 8.7 % (2.9-4.9); ALPHA-2-GLOBULINS % 13.6 % (7.1-11.8)
[2019-04-05 10:48] LABS: ALBUMIN 3.67 GM/DL (3.29-5.55); ALPHA-1-GLOBULINS 0.61 GM/DL (0.17-0.41); ALPHA-2-GLOBULINS 0.95 GM/DL (0.42-0.99); BETA-1-GLOBULINS 0.46 GM/DL (0.28-0.60); BETA-1-GLOBULINS % 6.5 % (4.7-7.2); BETA-2-GLOBULINS 0.36 GM/DL (0.19-0.55); BETA-2-GLOBULINS % 5.2 % (3.2-6.5); GAMMA GLOBULIN % 13.6 % (11.1-18.8); GAMMA GLOBULINS 0.95 GM/DL (0.65-1.58)
--- NOTE | 2019-04-05 12:12 | CR ---
DATE OF CONSULTATION: 04/04/2019 REASON FOR CONSULTATION: Pancytopenia. HISTORY OF PRESENTING ILLNESS: Farida is a 64-year-old who we were asked to see in consultation for the above. She was admitted 04/03/2019 with complaints of a 1-week history of shortness of breath, increasing fatigue. On arrival, she was found to have leukocytosis of 23, hemoglobin 7.4, platelets 49, neutrophils 39, 11.6 nucleated RBCs, 1 metamyelocyte, 9 myelocytes, 2 promyelocytes. A chest x-ray on arrival was suspicious for left lower lobe consolidation. Patient was started on empiric antibiotics. Clinically, however, the patient did not have a productive cough. No fevers or chills. 04/04/2019 CT chest without contrast - no acute mediastinal or pleuroparenchymal process. Per notes, antibiotic was discontinued. Upon my evaluation, patient states that she overall feels a little bit better, though is short of breath to the bathroom. She denies any sites of pain or bleeding. She denies any other complaints. REVIEW OF SYSTEMS: CONSTITUTIONAL: No fevers, chills, night sweats, fatigue, malaise, or weight loss. CARDIOPULMONARY: No chest pain, palpitations, dizziness. No cough. No hemoptysis. GASTROINTESTINAL: No pain, nausea, vomiting, constipation or diarrhea. No hematemesis, melena or hematochezia. GENITOURINARY: No dysuria, hematuria, incontinence, frequency or urgency. MUSCULOSKELETAL: No bony, muscle, or joint aches or pains. TOGGLE PRESS OPERATOR: No tingling, weakness, numbness. No headaches, dizziness, seizures, speech or visual disturbances. All other systems are negative unless otherwise specified in HPI. PAST MEDICAL/SURGICAL HISTORY: Ischemic cardiomyopathy. CAD S/P stent. CKD stage IV. Atrophic left kidney. Prior history of polycythemia. Was apparently referred to pulmonology for HECTOR evaluation but states she was not ready to make that appointment. Asthma. Obesity. Type 2 diabetes. CHF. Hypercholesterolemia. Pacemaker with defibrillator placement December 2017. MEDICATIONS: Reviewed in EMR and reconciled. ALLERGIES: LOSARTAN - throat swelling. SOCIAL HISTORY: Smoking - 10 cigarettes a day since the age of 14. Quit in 2013, but commenced smoking again February 2019 about 10 cigarettes a day. Alcohol - Denies history of alcohol or recreational drug use. FAMILY HISTORY: Mother - had history throat, thyroid and uterine cancers. Sister had diabetes and Lupus. Three brothers have CAD. No other history of malignancies or dyscrasias per patient. VITAL SIGNS: Reviewed in EMR - stable. PHYSICAL EXAM: HEENT: Oral mucosa - pink and moist, no conjunctival pallor, sclera anicteric bilaterally. LYMPHATICS: No cervical, supraclavicular, axillary or inguinal LAD. LUNGS: Clear to auscultation bilaterally, resonant to percussion bilaterally. HEART: Regular rhythm, no murmurs, no S3, S4, no rubs. ABDOMEN: Soft, nontender, bowel sounds normoactive, no hepatosplenomegaly. EXTREMITIES: No edema bilaterally. Calves, nontender bilaterally. SKIN/NAILS: No nail changes. No petechiae/ecchymosis or other skin changes. MUSCULOSKELETAL: Spine nontender to palpation. INVESTIGATIONS: Reviewed in the EMR. ASSESSMENT/PLAN: 1. Leukocytosis with normocytic anemia and thrombocytopenia with left shifted WBC differential with nucleated red cells C/W leukoerythroblastosis. Smear review by pathology revealed many nucleated red cells and immature myelocyte cells as scattered blast forms. Flow cytometry cytogenetics and FISH are pending. With circulating blasts cells, I am concerned about an acute leukemia. Discussed with patient the need for bone marrow biopsy and transfer to a tertiary care facility - either [facility] or [facility]. She wishes to discuss this with her prior to her finalizing her decision of transfer and choice of institution. If she agrees to a transfer, that can be initiated tomorrow and her bone marrow biopsy can also be performed at the tertiary care center of her choice. Her leukocytosis is not concerning enough to cause leukostasis. Would not add hydroxyurea at this time, especially with hemoglobin in the 7 range and platelets of 49. Given symptomatic anemia, would recommend at least 1 unit of packed RBCs - discussed with Dr. Do who will arrange for the same. For completion please check B12 and folate panel - replenish low stores. Noted paraproteinemia markers are also pending. Iron studies reveal no evidence of deficiency - ferritin is elevated at 511 - could be secondary to acute phase reactant. Component of anemia is also secondary to anemia of chronic kidney disease for which she states an AV fistula is planned in the near future. 2. DVT prophylaxis Use SCDs - avoid pharmacologic prophylaxis secondary to thrombocytopenia with platelets < 50,000. All of the above was relayed to the patient and disccussed with Dr. Do. Thank you for asking us to see this patient in consultation. It is always a privilege and pleasure to participate in the care of your patients.
[2019-04-05 14:00] VITALS: BP 107/52
[2019-04-05] MEDS ORDERED: MOM 30ML SUSPENSION UDC PO ONE (17:00)
--- NOTE | 2019-04-05 19:04 | MEDONCENPD ---
Date/Time of Encounter Date of Encounter: Apr 05, 2019 Encounter REASON FOR F/U: Anemia, T penia, lekocytosis HPI: S/P 1 unit of PRBC yest- less fatigued and much less COTE, up in couch eating supper, in better spritis, d/w - she has decided to be transferred to [facility] No CP, sob, palp, dizziness No pain or bleeding at any site No abd pain/n/v/c/d No fevers, chills, night sweats No other c/o MEDICATIONS: Reviewed in EMR VITAL SIGNS: Reviewed in EMR - stable. PHYSICAL EXAM: HEENT: Oral mucosa - pink and moist, no conjunctival pallor, sclera anicteric bilaterally. LUNGS: Clear to auscultation bilaterally, resonant to percussion bilaterally. HEART: Regular rhythm, no murmurs, no S3, S4, no rubs. ABDOMEN: Soft, nontender, bowel sounds normoactive, no hepatosplenomegaly. EXTREMITIES: No edema bilaterally. Calves, nontender bilaterally. SKIN/NAILS: No nail changes. No petechiae/ecchymosis or other skin changes. INVESTIGATIONS: Reviewed in the EMR. ASSESSMENT/PLAN: 1. Leukocytosis with normocytic anemia and thrombocytopenia with left shifted WBC differential with nucleated red cells C/W leukoerythroblastosis. Smear review by pathology revealed many nucleated red cells and immature myelocyte cells as scattered blast forms. Cytogenetics and FISH are pending. With circulating blasts cells, and flow showing no evidence of acute leukemia, we could do the BM bx here to confirm MDS vs acute leukemia - will need to be coordinated between floor and pathology and outpatient Onc schedule for me to bedside BM bx in AM. Patient has decided to be transferred to [facility]- d/w Dr. Perez- transfer process underway and was already accepted by [facility]. Discharge paperwork signed. Infectious serology pending. BM bx can be performed at [facility]. Given symptomatic anemia, s/p 1 unit PRBCs w/ improvement in fatigue and COTE No b12 def, has folate def- can start folate 1 mg po qd, Noted paraproteinemia markers are also pending. Iron studies reveal no evidence of deficiency - ferritin is elevated at 511 - could be secondary to acute phase reactant. Component of anemia is also secondary to anemia of chronic kidney disease for which she states an AV fistula is planned in the near future. 2. DVT prophylaxis Use SCDs - avoid pharmacologic prophylaxis secondary to thrombocytopenia with platelets < 50,000. D/w Dr. Perez. LUCERO STODDARD MD Apr 05, 2019 19:04
[2019-04-05 20:23] VITALS: BP 121/55
[2019-04-05] MEDS ORDERED: SENNA 8.6 MG TAB (SENOKOT) PO SCH (21:00)
--- NOTE | 2019-04-05 23:53 | DS.PDOC ---
Discharge Summary General Date of Admission Apr 03, 2019 at 20:52 Date of Discharge 04/05/2019 Primary Care Physician: DEENA FERRARA MD Attending Physician: MADYSON WAGNER DO Specialist/Consultants Involve: LUCERO STODDARD MD Discharge Summary DISCHARGE DIAGNOSES: 1. 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 Normocytic anemia 3. Thrombocytopenia 4. CKD stage IV, with baseline creatinine of 2.3-2.6 since approximately 2016 (currently at baseline) 5. Diabetes mellitus type 2 6. Status post placement of cardiac pacemaker/defibrillator, no prior records av ailable to indicate reason for placement. HOSPITAL COURSE: Patient presented to the hospital with new onset of shortness of breath. New onset leukocytosis with anemia and thrombocytopenia discovered. Hematology/oncology was consulted. Due to concerns for acute leukemia, recommendation for transfer to tertiary care center was recommended. Transfer was delayed by approximately 1 day because the patient was unsure as to how she wished to proceed. Today she did make the determination that she would like to go ahead with the transfer, and undergo further diagnostic evaluation and possible treatment. Nevertheless, she does wish to be DNR/DNI, and therefore a MOLST form was filled out and signed prior to her transfer. Upon admission there was some concern for pneumonia, however subsequent inv estigations including labs, chest x-ray, and chest CT all indicate that she does not currently have pneumonia. DISCHARGE MEDICATIONS: Please see below. ALLERGIES: Please see below. PHYSICAL EXAMINATION ON DISCHARGE: VITAL SIGNS: Please see below. GENERAL: Awake, alert, she does not appear to be in any acute distress at this time. HEENT: Atraumatic, normocephalic, extraocular movements are grossly intact. Buccal mucosa is pink and moist with no lesions in the oropharynx. CARDIOVASCULAR EXAMINATION: Regular rate and rhythm with no murmurs, rubs, or gallops. RESPIRATORY EXAMINATION: Clear to auscultation bilaterally with no wheezes, rales, or rhonchi. ABDOMINAL EXAMINATION: Soft, nontender, nondistended EXTREMITIES: Multiple bruises in the bilateral upper extremities due to lab draws. 2+ pulses in the radial bilaterally NEUROLOGICAL EXAMINATION: Alert and oriented 3. Cranial nerves II-XII appear to be grossly intact PSYCHIATRIC EXAMINATION: She is certainly capable of making her own medical decisions. Judgment and insight appears to be appropriate. Appropriate mood and affect. LABORATORY DATA: Please see below. IMAGING: Chest x-ray performed 04/03/21 showing left lower lobe consolidation. CT of the chest performed 04/04/19 shows moderate emphysematous changes with no acute mediastinal or pleural parenchymal process. ACTIVITY: As tolerated. DIET: As tolerated. DISCHARGE PLAN: Transfer to [facility]/Onc Inpatient Service for evaluation of possible treatment of acute leukemia. Receiving Doctor: Dr. Diaz. DISCHARGE CONDITION: Stable. TIME SPENT ON DISCHARGE: Greater than 45 minutes. Vital Signs/I&Os Vital Signs Date Time Temp Pulse Resp B/P (MAP) Pulse Ox O2 Delivery O2 Flow Rate FiO2 04/05/19 20:23 63 121/55 04/05/19 14:00 97.3 20 94 Room Air I&O- Last 24 Hours up to 6 AM 04/05/19 06:00 Intake Total 2075 ml Output Total 650 ml Balance 1425 ml Laboratory Data Labs 24H Laboratory Tests 2 04/05/19 05:40: Immature Granulocyte % (Auto) , Neutrophils (%) (Auto) , Monocytes # (Auto) , Nucleated Red Blood Cells % (auto) 12.8H, Neutrophils 43, Lymphocytes (Manual) 33, Metamyelocytes 9H, Myelocytes 14H, Promyelocytes 1H, Hypochromasia 2+, Basophilic Stippling 1+, Anisocytosis 2+, Giant Platelets 1+, Platelet Estimate MARKED DECREASE, Immature Platelet Fraction 46.0H, Anion Gap 6L, Glomerular Filtration Rate 20.8L, Calcium Level 8.9 04/05/19 11:32: Bedside Glucose (Misc Panel) 337H 04/05/19 16:35: Bedside Glucose (Misc Panel) 159H 04/05/19 20:16: Bedside Glucose (Misc Panel) 192H CBC/BMP Laboratory Tests 04/05/19 05:40 FSBS Laboratory Tests Test 04/05/19 11:32 04/05/19 16:35 04/05/19 20:16 Range/Units Bedside Glucose (Misc Panel) 337 159 192 80-115 MG/DL Microbiology Microbiology 04/03/19 Gram Stain - Final, Complete 04/03/19 Sputum Culture - Final, Complete 04/03/19 Blood Culture - Preliminary, Resulted No Growth after 48 hours. All Specime... 04/03/19 Blood Culture - Preliminary, Resulted No Growth after 48 hours. All Specime... Discharge Medications Scheduled Amlodipine Besylate (Amlodipine Besylate) 2.5 Mg Tab, 5 MG PO DAILY, (Reported) Aspirin (Aspirin) 81 Mg Chw, 81 MG PO DAILY, (Reported) Calcium Polycarbophil (Fibercon) 625 Mg Tab, 625 MG PO DAILY, (Reported) Carvedilol (Carvedilol) 12.5 Mg Tab, 12.5 MG PO BID, (Reported) Clopidogrel Bisulfate (Clopidogrel) 75 Mg Tablet, 75 MG PO DAILY, (Reported) Insulin Glargine,Hum.rec.anlog (Basaglar Kwikpen U-100) 100 Unit/1 Ml Insuln.pen, 30 UNIT SC QHS, (Reported) Insulin Human Lispro (Humalog) 100 Unit/1 Ml Vial, 1 UNIT SC TID, (Reported) Isosorbide Mononitrate (Isosorbide Mononitrate ER) 60 Mg Tab, 60 MG PO DAILY, (Reported) Pravastatin Sodium (Pravastatin Sodium) 40 Mg Tab, 40 MG PO DAILY, (Reported) Spironolactone (Spironolactone) 100 Mg Tab, 100 MG PO DAILY, (Reported) Umeclidinium Fitzhugh (Incruse Ellipta) 62.5 Mcg Blst.w.dev, 1 PUFF INH DAILY, (Reported) Scheduled PRN Albuterol Sulfate (Proair Hfa) 8.5 Gm Hfa.aer.ad, 2 PUFF INH Q4-6HP PRN for wheezing, (Reported) Furosemide (Lasix) 40 Mg Tab, 40 MG PO DAILY PRN for EDEMA IN LEGS, (Reported) Allergies Coded Allergies: losartan (Verified Allergy, Severe, throat swelling, 06/28/18) MADYSON WAGNER DO Apr 05, 2019 23:53
[2019-04-06] MEDS ORDERED: MOM 30ML SUSPENSION UDC PO PRN (02:00)
[2019-04-07 00:07] LABS: BODY FLUID CULTURE Not indicated. (.); ORGANISM ID Not indicated. (.); SPECIMEN SOURCE Urine (.); URINE STREP PNEUMONIAE ANTIGEN Negative (Negative)
[2019-04-07 10:07] LABS: BABESIA MICROTI PCR Negative (Negative); E CHAFFEENSIS IgG TITER Negative (Neg:<1:64); E CHAFFEENSIS IgM TITER Negative (Neg:<1:20); HUMAN GRANULCYTIC EHRLIC IgG Negative (Neg:<1:64); HUMAN GRANULCYTIC EHRLIC IgM Negative (Neg:<1:20)
== END 2019-04-05 21:02 | disposition short-term general hospital (02) | DRG 663 ==
LOC: M ED 17:51 → M ED INP 20:52 → ENRESERVDT 21:18 → ENRESERVTM 21:18 → M MSPAV 22:12
PROVIDERS: ADMIT Internal Medicine; ATTEND Neuromusculoskeletal Medicine & OMM
PROC: 30233N1 Transfusion of Nonautologous Red Blood Cells into Peripheral Vein, Percutaneous Approach (ICD-10-PCS; principal; 2019-04-05)
DX: D72.829 Elevated white blood cell count, unspecified (principal); J18.9 Pneumonia, unspecified organism; I13.0 Hypertensive heart and chronic kidney disease with heart failure and stage 1 through stage 4 chronic kidney disease, or unspecified chronic kidney disease; N18.4 Chronic kidney disease, stage 4 (severe); E11.22 Type 2 diabetes mellitus with diabetic chronic kidney disease; D69.6 Thrombocytopenia, unspecified; I50.22 Chronic systolic (congestive) heart failure; E87.5 Hyperkalemia; D75.1 Secondary polycythemia; I25.10 Atherosclerotic heart disease of native coronary artery without angina pectoris; Z98.61 Coronary angioplasty status; J44.9 Chronic obstructive pulmonary disease, unspecified; F17.200 Nicotine dependence, unspecified, uncomplicated; Z79.82 Long term (current) use of aspirin; Z79.4 Long term (current) use of insulin; Z79.899 Other long term (current) drug therapy; Z88.8 Allergy status to other drugs, medicaments and biological substances; I25.5 Ischemic cardiomyopathy; G47.33 Obstructive sleep apnea (adult) (pediatric); E66.9 Obesity, unspecified; E78.00 Pure hypercholesterolemia, unspecified; Z95.0 Presence of cardiac pacemaker; E78.5 Hyperlipidemia, unspecified; N26.1 Atrophy of kidney (terminal); Z68.30 Body mass index [BMI] 30.0-30.9, adult; D61.818 Other pancytopenia

== ENCOUNTER → 2019-04-18 | Outpatient (CLI) | payer OTHER ==
[~2019-04-18] MED LIST changes: +ALLO100T PO; +FOLI1TAB11 PO; +INSU100I9
--- NOTE | 2019-04-18 12:08 | REP ---
Duplex extremity venous ultrasound: Bilateral lower extremity. History: Bilateral calf tenderness. Rule out DVT. Findings: The deep veins are anechoic and fully compressible from the groin to the popliteal fossa in the left and right lower extremity. Color flow imaging is homogeneous. Spectral Doppler interrogation demonstrates intact respiratory variation in flow and normal manual augmentation of flow. There is no evidence of deep vein thrombosis. Impression: Negative bilateral lower extremity duplex venous ultrasound. No evidence of deep vein thrombosis. Electronically Signed by Dyllan Akhtar MD 04/18/2019 12:00 P
== END ==
LOC: M RAD 11:19
PROVIDERS: ATTEND Internal Medicine Hematology & Oncology
DX: M79.661 Pain in right lower leg (principal); M79.662 Pain in left lower leg

== ENCOUNTER → 2019-04-25 | Outpatient (CLI) | payer OTHER ==
[~2019-04-25] MED LIST changes: +GASTROGRAFIN SOLUTION 30ML (Q9963) As Ordered ONE
--- NOTE | 2019-04-25 18:16 | REPVR ---
PROCEDURE INFORMATION: Exam: CT Cervical Spine Without Contrast Exam date and time: 04/25/2019 5:32 PM Age: 64 years old Clinical indication: Neck pain; Additional info: Back pain, cmml eval for lad, organomagly TECHNIQUE: Imaging protocol: Computed tomography images of the cervical spine without contrast. Radiation optimization: All CT scans at this facility use at least one of these dose optimization techniques: automated exposure control; mA and/or kV adjustment per patient size (includes targeted exams where dose is matched to clinical indication); or iterative reconstruction. COMPARISON: No relevant prior studies available. FINDINGS: Vertebrae: No acute fracture or subluxation. There is mild interspace narrowing at C5-C6 and mild anterolisthesis of C4 relative to C5 and to a lesser degree C3 relative to C4. There are hypertrophic changes of uncovertebral joints from C5-C7 and to a lesser degree C4-C5. Discs/Spinal canal/Neural foramina: No significant spinal stenosis. Mild bilateral neural foraminal stenosis at C3-C4 and on the right at C4-C5. Otherwise, no foraminal stenosis. Soft tissues: Unremarkable. Mastoid air cells: Debris in the external auditory canals and opacification of some right mastoid air cells. Lungs: Lung apices are normal. Other findings: Motion artifact with image degradation. IMPRESSION: 1. Multilevel degenerative changes with mild bilateral neural foraminal stenosis at C3-C4 and on the right at C4-C5. No spinal stenosis. 2. No acute fracture or subluxation. The Electronically signed by: Luis Angel Scherer On 04/25/2019 18:16:30 PM
--- NOTE | 2019-04-25 18:21 | REPVR ---
PROCEDURE INFORMATION: Exam: CT Lumbar Spine Without Contrast Exam date and time: 04/25/2019 5:32 PM Age: 64 years old Clinical indication: Low back pain; Additional info: Back pain, cmml eval for lad, organomagly TECHNIQUE: Imaging protocol: Computed tomography images of the lumbar spine without contrast. Radiation optimization: All CT scans at this facility use at least one of these dose optimization techniques: automated exposure control; mA and/or kV adjustment per patient size (includes targeted exams where dose is matched to clinical indication); or iterative reconstruction. COMPARISON: No relevant prior studies available. FINDINGS: Vertebrae: Minimal levoscoliosis centered at L2-L3. No fracture or compression. L1-L2: The disc is well maintained with no significant facet arthropathy and no spinal or foraminal stenosis. L2-L3: Slight interspace narrowing with no significant facet arthropathy and no spinal or foraminal stenosis L3-L4: Minimal diffuse bulge of the disc with mild right facet arthropathy and low normal size of the spinal canal. No foraminal stenosis. L4-L5: Slight anterolisthesis with minimal broad-based posterior protrusion and mild bilateral facet arthropathy. The spinal canal and neural foramen are of adequate size. L5-S1: Mild interspace narrowing with degenerative vacuum phenomenon with greatest posterior protrusion centered toward the left posterolaterally. There is mild facet arthropathy and posterior osteophytes. No spinal stenosis but mild narrowing of the left lateral recess. No significant foraminal stenosis. Other bones/joints: Small hypoplastic rib on the left at L1. Kidneys and ureters: Prominent atrophy of the left kidney. Soft tissues: Unremarkable. IMPRESSION: 1. Prominent atrophy of the left kidney. 2. Multilevel degenerative changes with no significant spinal or foraminal stenosis. Electronically signed by: Luis Angel Scherer On 04/25/2019 18:20:47 PM
--- NOTE | 2019-04-25 18:23 | REPVR ---
PROCEDURE INFORMATION: Exam: CT Thoracic Spine Without Contrast Exam date and time: 04/25/2019 5:32 PM Age: 64 years old Clinical indication: Pain in thoracic spine; Additional info: Back pain, cmml eval for lad, organomagly TECHNIQUE: Imaging protocol: Computed tomography images of the thoracic spine without contrast. Radiation optimization: All CT scans at this facility use at least one of these dose optimization techniques: automated exposure control; mA and/or kV adjustment per patient size (includes targeted exams where dose is matched to clinical indication); or iterative reconstruction. COMPARISON: No relevant prior studies available. FINDINGS: Tubes, catheters and devices: Pacemaker in position from the left. Vertebrae: No acute fracture. Normal alignment. Discs/Spinal canal/Neural foramina: Minimal degenerative spurring in the lower thoracic spine. No spinal or foraminal stenosis. Soft tissues: Unremarkable. IMPRESSION: 1. Minimal degenerative spurring in the lower thoracic spine. 2. Otherwise negative CT thoracic spine. No spinal or foraminal stenosis. Electronically signed by: Luis Angel cSherer On 04/25/2019 18:23:23 PM
--- NOTE | 2019-04-26 03:07 | REP ---
Clinical: Back pain. Technique: Axial images from the lung bases to the pubic symphysis using oral contrast material with coronal and sagittal re-formations. Findings: Lung bases are clear. Liver, spleen, pancreas, gallbladder, and right kidney appear normal. Chronic atrophic appearance to the left kidney likely related to atherosclerotic disease at the origin of the left renal artery and associated vascular compromise suggested. Bilateral adrenal glands remain stable as compared to chest CT dated 2017. The enteric system demonstrates diffuse diverticulosis without acute diverticulitis and no evidence for bowel obstruction or acute process. Normal terminal ileum and appendix identified in the right lower quadrant. Pelvis demonstrates normal bladder and age-appropriate uterus/adnexa. Extensive atherosclerotic changes to the aorta and vasculature noted without aneurysm. No ascites. No free air. No adenopathy. Skeletal structures demonstrate age-related changes without focal abnormality. Impression: 1. Atherosclerotic disease with chronic atrophic appearance to the left kidney likely on the basis of vascular insufficiency. 2. Diverticulosis without acute diverticulitis. Electronically Signed by Leonardo Dior MD 04/26/2019 02:57 A
== END ==
LOC: M RAD 15:46
PROVIDERS: ATTEND Internal Medicine Hematology & Oncology
DX: K57.30 Diverticulosis of large intestine without perforation or abscess without bleeding (principal); I25.10 Atherosclerotic heart disease of native coronary artery without angina pectoris; D61.818 Other pancytopenia; C93.10 Chronic myelomonocytic leukemia not having achieved remission
CPT/HCPCS: 72125; 72128; 72131; 74176; 74177; Q9963

== ENCOUNTER 2019-05-04 08:43 | Outpatient (CLI) | payer OTHER ==
[2019-05-04] VITALS (7 sets, daily range): BP systolic 93–129; BP diastolic 48–58
[~2019-05-04] VITALS: Ht 162.6 cm; Wt 85.0 kg
[~2019-05-04 08:43] MED LIST changes: -GASTROGRAFIN SOLUTION 30ML (Q9963) As Ordered ONE
[2019-05-04] MEDS ORDERED: diphenhydrAMINE 25 MG CAP PO ONE (09:00)
[2019-05-04] MEDS ORDERED: ACETAMINOPHEN TAB 650MG DOSE (2X325MG) PO ONE (09:00)
[2019-05-04] MEDS ORDERED: FUROSEMIDE 20 MG/2 ML VIAL (J1940) IV ONE (12:00)
== END 2019-05-04 15:00 | disposition home or self-care (01) ==
LOC: M INFU 08:43
PROVIDERS: ATTEND Internal Medicine Hematology & Oncology
DX: D46.9 Myelodysplastic syndrome, unspecified (principal); Z88.8 Allergy status to other drugs, medicaments and biological substances
CPT/HCPCS: 36430; 96374; J1940; P9016

== ENCOUNTER 2019-05-05 08:12 | Outpatient (CLI) | payer OTHER ==
[~2019-05-05] VITALS: Ht 162.6 cm; Wt 85.0 kg
[2019-05-05 08:35] VITALS: BP 114/53
[2019-05-05 08:49] VITALS: BP 114/53
[2019-05-05] MEDS ORDERED: diphenhydrAMINE 25 MG CAP PO ONE (09:00)
[2019-05-05] MEDS ORDERED: ACETAMINOPHEN TAB 650MG DOSE (2X325MG) PO ONE (09:00)
[2019-05-05 09:15] VITALS: BP 126/60
[2019-05-05 10:21] VITALS: BP 117/58
[2019-05-05 10:24] VITALS: BP 117/58
== END 2019-05-05 10:50 | disposition home or self-care (01) ==
LOC: M INFU 08:12
PROVIDERS: ATTEND Internal Medicine Hematology & Oncology
DX: D46.9 Myelodysplastic syndrome, unspecified (principal); Z88.8 Allergy status to other drugs, medicaments and biological substances
CPT/HCPCS: 36430; P9016

== ENCOUNTER → 2019-05-12 | Outpatient (REF) | payer OTHER ==
[2019-05-12 17:19] LABS: HEMATOCRIT 26.5 % (36.0-47.0); HEMOGLOBIN 7.9 g/dl (12.0-15.5); MEAN CORPUSCULAR HEMOGLOBIN 27.1 pg (27.0-33.0); MEAN CORPUSCULAR HGB CONC 29.8 g/dl (32.0-36.5); MEAN CORPUSCULAR VOLUME 90.8 fl (80.0-96.0); RED BLOOD COUNT 2.92 10^6/uL (4.00-5.40)
[2019-05-12 17:34] LABS: CALCIUM LEVEL 8.7 MG/DL (8.8-10.2); CREATININE FOR GFR 2.08 MG/DL (0.55-1.30); GLOMERULAR FILTRATION RATE 25.5 (>45); POTASSIUM SERUM 4.5 MEQ/L (3.5-5.1)
[2019-05-12 17:38] LABS: PLATELET COUNT, AUTOMATED 24 10^3/uL (150-450)
[2019-05-12 17:56] LABS: ATYPICAL LYMPH 4 % (0-5); LYMPHOCYTES 20 % (16-44); METAMYELOCYTES 4 % (0-0); MONOCYTES 17 % (0-5); MYELOCYTES 16 % (0-0); NEUTROPHILS 35 % (28-66)
[2019-05-12 17:57] LABS: GIANT PLATELETS 1+; PLATELET ESTIMATE DECREASED (NORMAL)
[2019-05-12 17:58] LABS: DOHLE BODIES 1+; MICROCYTOSIS 1+
[2019-05-12 17:59] LABS: OVALOCYTES 1+
[2019-05-12 18:00] LABS: TEAR DROP CELLS 1+
[2019-05-12 18:01] LABS: HYPOCHROMASIA 1+
== END ==
LOC: M SFHCPLAZ 15:18
PROVIDERS: ATTEND Family Medicine
DX: D61.82 Myelophthisis (principal); N18.4 Chronic kidney disease, stage 4 (severe)

== ENCOUNTER → 2019-05-27 | Outpatient (CLI) | payer OTHER ==
--- NOTE | 2019-05-27 15:07 | REPPI ---
CHEST, TWO VIEWS: Two views of the chest are performed and compared to a prior study of 04/03/2019. There is no acute infiltrate. The heart is not enlarged. There is mild calcification and tortuosity of the thoracic aorta. Mediastinal silhouette is unchanged. Left dual-lead pacemaker is again noted, unchanged. There are mild degenerative changes of the spine. IMPRESSION: No acute pulmonary disease. Electronically Signed by Jamal Lacy MD 05/27/2019 03:09 P
== END ==
LOC: M PLAIMG 13:55
PROVIDERS: ATTEND Internal Medicine
DX: R05 Cough (principal)

== ENCOUNTER → 2019-05-30 | Outpatient (REF) | payer OTHER ==
[2019-05-30 11:13] LABS: HEMOGLOBIN A1c 6.9 %
[2019-05-30 11:17] LABS: CHOLESTEROL RISK RATIO 2.793 (<5)
== END ==
LOC: M SFHCPLAZ 10:11
PROVIDERS: ATTEND Internal Medicine
DX: E78.2 Mixed hyperlipidemia (principal); E11.9 Type 2 diabetes mellitus without complications

== ENCOUNTER → 2019-06-01 | Outpatient (CLI) | payer OTHER ==
[~2019-06-01] MED LIST changes: +MIDAZOLAM INJ 2 MG/2 ML VIAL (J2250) As Ordered ONE; +diphenhydrAMINE 50MG/ML VIAL (J1200) As Ordered ONE; +fentaNYL 100 MCG/2 ML INJECTION (J3010) As Ordered ONE
--- NOTE | 2019-06-01 12:35 | IRHP ---
[facility] IR Pre-Procedure H & P General Date of Service: Jun 01, 2019 Procedure: Same Day Surgery Interval History and Physical I have seen the patient and reviewed last H & P performed within 30 days. There is no significant interval change. History of Present Illness Chief Complaint The patient is a 64-year-old female admitted with a reason for visit of Cancer Chemo Treatment. PRE-PROCEDURE DIAGNOSIS: leukemia HEART: normal rate. LUNGS: normal breathing at rest. ASA Classification ASA Classification: II-Mild systemic disease Mallampati Score: II NPO: Yes Problems with prior sedation: No Obstructive Sleep Apnea: No Plan moderate sedation Allergies Coded Allergies: losartan (Verified Allergy, Severe, throat swelling, 06/28/18) Home Medications Scheduled Allopurinol (Allopurinol), 100 MG PO DAILY, (Reported) Amlodipine Besylate (Amlodipine Besylate), 5 MG PO DAILY, (Reported) Aspirin (Aspirin), 81 MG PO DAILY, (Reported) Calcium Polycarbophil (Fibercon), 625 MG PO DAILY, (Reported) Carvedilol (Carvedilol), 12.5 MG PO BID, (Reported) Clopidogrel Bisulfate (Clopidogrel), 75 MG PO DAILY, (Reported) Folic Acid (Folic Acid), 1 MG PO DAILY Furosemide (Lasix), 40 MG PO DAILY, (Reported) Insulin Glargine,Hum.rec.anlog (Basaglar Kwikpen U-100), 30 UNIT SC QHS, (Reported) Insulin Human Lispro (Humalog), 1 UNIT SC TID, (Reported) Isosorbide Mononitrate (Isosorbide Mononitrate ER), 60 MG PO DAILY, (Reported) Pravastatin Sodium (Pravastatin Sodium), 40 MG PO DAILY, (Reported) Spironolactone (Spironolactone), 100 MG PO DAILY, (Reported) Umeclidinium [place] (Incruse Ellipta), 1 PUFF INH DAILY, (Reported) Scheduled PRN Albuterol Sulfate (Proair Hfa), 2 PUFF INH Q4-6HP PRN for wheezing, (Reported) Miscellaneous Medications Insulin Lispro (Insulin Lispro Kwikpen U-100), (Reported) VS, I&O, 24H, Fishbone Vital Signs/I&O Vital Signs Date Time Temp Pulse Resp B/P (MAP) Pulse Ox O2 Delivery O2 Flow Rate FiO2 4/15/20 11:36 97.9 73 20 100 Room Air Laboratory Data 24H LABS Laboratory Tests 2 06/01/19 11:45: Bedside Glucose (Misc Panel) 97 06/01/19 12:30: Lab Scanned Report LAB OTHER DARION VAUGHN MD Jun 01, 2019 12:35
[2019-06-01 13:02] LABS: PLATELET COUNT, AUTOMATED 9 10^3/uL (150-450)
--- NOTE | 2019-06-01 13:25 | REP ---
IR Ultrasound and fluoroscopy-guided port placement. IR Ultrasound of the neck. IR Moderate sedation. Clinical information: Lung cancer. Physician: Dr. Manzano. Procedure: The patient was advised of the benefits, risks, and alternatives of the procedure and informed consent was obtained. A time-out was performed with verification of the patient's name, MRN, site of procedure and type of procedure to be performed. The patient was positioned in the supine position on the angiographic table. The site was prepped and draped in the usual sterile fashion. Moderate sedation was performed by the physician including the presence of an independent trained observer who assisted and monitored the patient's level of consciousness and physiologic status. Following the administration of fentanyl and versed, the physician spent 45 minutes of continuous face to face time with the patient. Ultrasound of the neck reveals a patent and compressible right internal jugular vein. A converter skimmer radiograph reveals a cardiac pacer. The neck and anterior chest wall were anesthetized with lidocaine. The right internal jugular vein was accessed using a microintroducer needle under ultrasound guidance, via a lateral approach. An 018 wire was advanced into the superior vena cava, the needle was removed and a microsheath was placed. An Amplatz wire was then passed into the inferior vena cava. An incision at the internal jugular vein access site and anterior chest wall were made using a scalpel. An incision was made at the anterior chest wall. A small pocket was created using a combination of blunt and sharp dissection. A tunneling device was then used to pass the catheter from the pocket to the neck puncture site. An 8-Urdu Angiodynamics smart power port was then positioned in the pocket. The catheter was then measured and cut. The introducer sheath was exchanged for a peel-away sheath. The catheter was passed through the peel-away sheath into the internal jugular vein and the peel-away sheath was removed. The port tip was positioned at the cavoatrial junction. The port was then accessed with a Sawant needle. The port flushes and aspirates well. The puncture site in the neck was closed. The chest wall incision was then closed with 2-0 Vicryl and 4-0 Monocryl. Glue and Steri-Strips were applied. A sterile dressing was then applied. The patient tolerated the procedure well and was returned to the PRU in stable condition. Estimated blood loss: <5 ml. Complications: None. Conclusion: 1. Successful placement of an 8-Urdu Angiodynamics smart power port via the right internal jugular vein. The port is ready for immediate use. 2. Patient to follow up in IR clinic in 2 weeks. Thank you for this referral. Electronically Signed by Harper Manzano MD 06/01/2019 01:24 P
[2019-06-01 13:35] VITALS: BP 125/58
--- NOTE | 2019-06-01 13:36 | POST-OPPD ---
Postoperative Procedure Note Date Of Procedure: Jun 01, 2019 Time Of Procedure: 13:35 PREOPERATIVE DIAGNOSIS: leukemia POSTOPERATIVE DIAGNOSIS: same FINDINGS: patent right IJ PROCEDURE: right side port placed. see full report under imaging tab SURGEON: sanjiv ANESTHESIA: mod sed ESTIMATED BLOOD LOSS: < 5 ml COMPLICATIONS: none POSTOPERATIVE CONDITION: stable DARION VAUGHN MD Jun 01, 2019 13:36
[2019-06-01 15:20] VITALS: BP 151/61
== END ==
LOC: M IRPRO 11:19
PROVIDERS: ATTEND Internal Medicine Hematology & Oncology
DX: C34.90 Malignant neoplasm of unspecified part of unspecified bronchus or lung (principal); Z45.2 Encounter for adjustment and management of vascular access device; D46.9 Myelodysplastic syndrome, unspecified; E11.9 Type 2 diabetes mellitus without complications; J44.9 Chronic obstructive pulmonary disease, unspecified; Z79.4 Long term (current) use of insulin; Z79.899 Other long term (current) drug therapy; Z88.8 Allergy status to other drugs, medicaments and biological substances
CPT/HCPCS: 36571; 85027; 85049; 85055; 99152; 99153; C1769; C1788; C1894; J1200; J2250; J3010; P9036

== ENCOUNTER → 2019-06-14 | Outpatient (POV) | payer OTHER ==
[~2019-06-14] MED LIST changes: -MIDAZOLAM INJ 2 MG/2 ML VIAL (J2250) As Ordered ONE; -diphenhydrAMINE 50MG/ML VIAL (J1200) As Ordered ONE; -fentaNYL 100 MCG/2 ML INJECTION (J3010) As Ordered ONE
--- NOTE | 2019-06-15 14:55 | IRPN ---
[facility] IR Progress Note IR Progress Note DATE: Jun 14, 2019 Teleconsult FOLLOW-UP: status post port placement. Patient states port is doing well. Port being accessed and used without issues. No pain, fevers, chills or discharge at site. ON EXAMINATION: Video conference not available in patient side. IMPRESSION: Doing well status post port placement. No further follow up scheduled unless initiated by patient and/or referring provider. Thank you for this referral Allergies Coded Allergies: losartan (Verified Allergy, Severe, throat swelling, 06/28/18) DARION VAUGHN MD Jun 15, 2019 14:55
== END ==
LOC: M TMIRPOV 13:30
PROVIDERS: ATTEND Radiology Diagnostic Radiology
DX: Z45.2 Encounter for adjustment and management of vascular access device (principal)

== ENCOUNTER 2019-06-24 16:31 | Inpatient (IN) | payer OTHER ==
[~2019-06-24] VITALS: Ht 167.6 cm; Wt 81.9 kg
[2019-06-24 17:12] LABS: HEMATOCRIT 24.1 % (36.0-47.0); HEMOGLOBIN 7.8 g/dl (12.0-15.5); MEAN CORPUSCULAR HEMOGLOBIN 28.5 pg (27.0-33.0); MEAN CORPUSCULAR HGB CONC 32.4 g/dl (32.0-36.5); RED BLOOD COUNT 2.74 10^6/uL (4.00-5.40); WHITE BLOOD COUNT 6.4 10^3/uL (4.0-10.0)
[2019-06-24 17:36] LABS: ALBUMIN 3.4 GM/DL (3.2-5.2); ALT/SGPT 12 U/L (12-78); BILIRUBIN,DIRECT 0.2 MG/DL (0.0-0.2); BILIRUBIN,TOTAL 0.7 MG/DL (0.2-1.0); BLOOD UREA NITROGEN 26 MG/DL (7-18); CARBON DIOXIDE LEVEL 24 MEQ/L (21-32); CHLORIDE LEVEL 104 MEQ/L (98-107); CK-MB VALUE MASS < 1.0 NG/ML (<3.6); CPK CREATINE PHOSPHOKINASE 23 U/L (26-192); CREATININE FOR GFR 1.76 MG/DL (0.55-1.30); GLOMERULAR FILTRATION RATE 30.9 (>45); GLUCOSE, FASTING 123 MG/DL (70-100); MB/CK RELATIVE INDEX 4.35 (< OR =4); NT-PRO BNP 2942 PG/ML (<125); SODIUM LEVEL 136 MEQ/L (136-145); TOTAL PROTEIN 6.9 GM/DL (6.4-8.2); TROPONIN I < 0.02 NG/ML (< 0.10)
[2019-06-24 17:39] LABS: PLATELET COUNT, AUTOMATED 30 10^3/uL (150-450)
[2019-06-24 17:58] LABS: ATYPICAL LYMPH 5 % (0-5); BASOPHILS 3 % (0-1); BLAST CELLS 2 % (0-0); LYMPHOCYTES 34 % (16-44); METAMYELOCYTES 1 % (0-0); MONOCYTES 7 % (0-5); MYELOCYTES 2 % (0-0); NEUTROPHILS 31 % (28-66)
[2019-06-24 18:04] LABS: PLATELET ESTIMATE DECREASED (NORMAL)
[2019-06-24 18:05] LABS: ANISOCYTOSIS 2+; HYPOCHROMASIA 1+
[2019-06-24 18:06] LABS: TEAR DROP CELLS 1+
[2019-06-24] MEDS ORDERED: FUROSEMIDE 20MG/2ML VIAL (J1940) IV ONE (18:15)
[2019-06-24] MEDS ORDERED: AMLO5TAB6 PO (18:47)
[2019-06-24] MEDS ORDERED: FOLI800C PO (18:47)
[2019-06-24] MEDS ORDERED: EQ S0.65 (18:47)
[2019-06-24] MEDS ORDERED: FOLI1TAB11 PO (18:47)
--- NOTE | 2019-06-24 19:43 | HPEPDOC ---
[facility] Medical History & Physical Date of Admission June 24, 2019 Date of Service: June 24, 2019 Primary Care Physician: DEENA FERRARA MD Attending Physician: BASHIR NEWELL MD History and Physical TIME OF SERVICE: 7:20 PM CHIEF COMPLAINT:, Shortness of breath HISTORY OF PRESENT ILLNESS: This is a 64-year-old female saw her oncologist yesterday and reported feeling well but was found to have a hemoglobin of 7.2. She was offered transfusion but declined. This morning at about noon she begun to feel short of breath, "like every thing is shutting off" and she was not getting enough oxygen. Today she the shortness of breath is worse when she walks a few feet. Her symptoms got gradually worse as the day went on therefore she decided to come to the hospital. She denies having chest pain, denies missing any doses of her diuretics, denies eating food that someone else cooked, denies having unilateral leg swelling, denies having fever or chills, denies having a runny nose, denies having a change in her chronic cough, and denies wheezing. She feels like she has lost weight. She reports "drinking quiet a bit of fluid" all the time. Blood work done in the ER revealed a hemoglobin of 7.8, and a BNP greater than 2000. 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 HOME MEDICATIONS: Please see below. PHYSICAL EXAMINATION: Vital Signs Date Time Temp Pulse Resp B/P (MAP) Pulse Ox O2 Delivery O2 Flow Rate FiO2 06/24/19 16:32 98.1 90 19 121/58 (79) 98 Room Air GEN: well nourished / well developed NAD INTEGUMENT: generalized palor HEENT: NCAT / MMM&P CVS: RRR/NMRG/ no LE edema LUNGS: equal air entry bilaterally / CTAB / no wheezing ABDOMEN: soft & she doesn't grimace with palpation MSK: JHONY x 4 NEURO: CN 2-12 grossly intact / speech not dysarthric PSYCH: A&Ox 3 / able to understand and follow all commands LABORATORY DATA: Immature Granulocyte % (Auto) , Neutrophils (%) (Auto) , Nucleated Red Blood Cells % (auto) 11.7H, Neutrophils 31, Band Neutrophils 15H, Lymphocytes (Manual) 34, Monocytes (Manual) 7H, Basophils (Manual) 3H, Metamyelocytes 1H, Myelocytes 2H, Blastocytes 2H, Atypical Lymphocytes 5, Hypochromasia 1+, Anisocytosis 2+, Tear Drop Cells 1+, Platelet Estimate DECREASED, Immature Platelet Fraction 37.5H, Anion Gap 8, Glomerular Filtration Rate 30.9L, Lactic Acid Level 1.1, Calcium Level 9.0, Total Bilirubin 0.7, Direct Bilirubin 0.2, Aspartate Amino Transf (AST/SGOT) 8, Alanine Aminotransferase (ALT/SGPT) 12, Alkaline Phosphatase 84, Total Creatine Kinase 23L, Creatine Kinase MB < 1.0, Creatine Kinase MB Relative Index 4.35H, Troponin I < 0.02, BW-Hkx-G-Type Natriuretic Peptide 2942H, Total Protein 6.9, Albumin 3.4, Albumin/Globulin Ratio 0.97L IMAGING: X-ray there appears to be some pulmonary vascular congestion, but the final read is pending ASSESSMENT: Ms. Cotton is a 64-year-old with a history of systolic CHF, CAD, CKD 4, emphysema & NIDDM was admitted for shortness of breath, likely due to acute CHF. PLAN: 1. Acute on Chronic Systolic CHF Trigger likely non-compliance with fluid restrictions or inability to tolerate previous levels of fluid and salt intake due to progression of left ventricular dysfunction The primary cause of her left sided failure based on the Echo in 2014 is ischemic cardiomyopathy and her EF was 40 to 45% ACC/AHA Heart Failure Staging and tx recommendations = stage C ADHERE Algorithm to predict in-hospital mortality in acute CHF = low risk NYHF Class III Today her BNP is higher than it was in Mar Plan: admit to PCU / elevate head of bed to 50 degrees/ Is/OS, daily weights, fluid restriction to 2L or 67oz, salt restriction to 2G / BNP should be measured before discharge for prognostic purposes because high levels and levels that dont trend down are linked with increased mortality and rehospitalization / f/u final chest xray report, TSH, serial Troponin& repeat Echo (last one in EMR was done in 2013) / lasix, beta sheila/ she is not on an ACEI and is not a candidate for K sparing diuretic bc of her CKD / when she is ready for dc she should f/u w PCP or Operations Forester w/in one week of discharge to prevent re- admission & be referred to cardiac rehab 2. Transfusion dependent CMML In the past she had pancytopenia but today she has bicytopenia. I don't think the dyspnea is due to her anemia bc she was asymptomatic yesterday when her Hg was lower Plan: transfuse 1 unit of PRBCs / target Hg of at least 8 3. Chronic Emphysema - Incruse Ellipta 4. CKD 4 - f/u BMP avoid nephrotoxins 5. Chronic CAD status post stent / Dyslipidemia - pravastatin 7. IDDM. A1C6.9% in May - diabetic diet / f/u accuchecks / hypoglycemia protocol / sliding scale insulin / her home long acting insulin is glargine 30 units QHS we will decrease this to 20 units QHS for now 7. Chronic HTN - amlodipine 8. Tobacco Abuse - smoking cessation education DVT PROPHYLAXIS: SCDs bc of anemia DISPOSITION: home after more than 2 midnight's stay LATE ENTRY 9. Elevated d-dimer. The age adjusted cut off for a normal d-dimer for her is 640, since her d-dimer is only 680 and her Wells score for PE is 1, which is low risk I won't order a CTA to r/o PE. Home Medications Scheduled Amlodipine Besylate (Amlodipine Besylate) 5 Mg Tablet, 5 MG PO DAILY DINNER Calcium Polycarbophil (Fibercon) 625 Mg Tab, 625 MG PO DAILY DINNER Carvedilol (Carvedilol) 12.5 Mg Tab, 12.5 MG PO BID Folic Acid (Folic Acid) 1 Mg Tablet, 1 MG PO DAILY DINNER Furosemide (Lasix) 40 Mg Tab, 40 MG PO BID AM AND MID AFTERNOON Insulin Glargine,Hum.rec.anlog (Basaglar Kwikpen U-100) 100 Unit/1 Ml Insuln.pen, 30 UNIT SC QHS Insulin Human Lispro (Humalog) 100 Unit/1 Ml Vial, 1 DOSE SC TID SLIDING SCALE Isosorbide Mononitrate (Isosorbide Mononitrate ER) 60 Mg Tab, 60 MG PO DAILY DINNER Pravastatin Sodium (Pravastatin Sodium) 40 Mg Tab, 40 MG PO DAILY DINNER Umeclidinium [place] (Incruse Ellipta) 62.5 Mcg Blst.w.dev, 1 PUFF INH DAILY Scheduled PRN Sodium Chloride (Nasal [place]) 44 Ml [place], 2 SPRAYS NA Q2H PRN for NASAL CONGESTION Allergies Coded Allergies: losartan (Verified Allergy, Severe, throat swelling, 06/28/18) A-FIB/CHADSVASC A-FIB History Current/History of A-Fib/PAF?: No Current PO Anticoag Therapy: No BASHIR NEWELL MD June 24, 2019 19:42
[2019-06-24] MEDS ORDERED: ACETAMINOPHEN TAB 650MG DOSE (2X325MG) PO PRN ×2 (19:45→22:00)
[2019-06-24] MEDS ORDERED: MOM 30ML SUSPENSION UDC PO PRN ×2 (19:45→22:00)
[2019-06-24] MEDS ORDERED: MAALOX 30 ML SUSP *UDC PO PRN ×2 (19:45→22:00)
[2019-06-24] MEDS: FUROSEMIDE 40MG/4ML VIAL (J1940) IV SCH ×2 (20:00→23:19)
[2019-06-24 20:09] LABS: INR 1.27; PROTHROMBIN TIME 15.6 SECONDS (11.8-14.0)
[2019-06-24 20:17] LABS: D-DIMER QUANT 683.35 ng/ml (<500)
[2019-06-24 20:22] LABS: MAGNESIUM LEVEL 2.4 MG/DL (1.8-2.4); PHOSPHORUS LEVEL 3.2 MG/DL (2.5-4.9)
[2019-06-24] MEDS ORDERED: LEVEMIR (INSULIN DETEMIR) 1 UNITS/0.01ML SC SCH (21:00)
[2019-06-24] MEDS ORDERED: PRAVASTATIN 20 MG TAB PO SCH (21:00)
[2019-06-24] MEDS ORDERED: GLUCOSE 4GM CHEW TABLET PO PRN (21:15)
[2019-06-24] MEDS ORDERED: GLUCAGON INJ 1MG VIAL SC PRN (21:15)
[2019-06-24] MEDS ORDERED: DEXTROSE 50% 50 ML SYRINGE IV PRN (21:15)
[2019-06-24] MEDS ORDERED: SODIUM CHLORIDE NASAL 0.65% SPRAY BTL (OCEAN) PRN (22:00)
[2019-06-24] MEDS ORDERED: traZODone 50 MG TAB PO PRN (22:00)
[2019-06-24 22:01] VITALS: BP 117/72
[2019-06-24 23:00] VITALS: O2SAT 98
[2019-06-24] MEDS: CARVedilol 12.5 MG TAB PO SCH (23:18)
[2019-06-25] VITALS (14 sets, daily range): BP systolic 97–128; BP diastolic 46–61; O2SAT 95–97
[2019-06-25] MEDS: FUROSEMIDE 40MG/4ML VIAL (J1940) IV SCH (03:30)
[2019-06-25 05:02] LABS: HEMATOCRIT 28.5 % (36.0-47.0); HEMOGLOBIN 9.4 g/dl (12.0-15.5); MEAN CORPUSCULAR HEMOGLOBIN 28.3 pg (27.0-33.0); MEAN CORPUSCULAR VOLUME 85.8 fl (80.0-96.0); RED BLOOD COUNT 3.32 10^6/uL (4.00-5.40); WHITE BLOOD COUNT 6.7 10^3/uL (4.0-10.0)
[2019-06-25 05:19] LABS: PLATELET COUNT, AUTOMATED 29 10^3/uL (150-450)
[2019-06-25 05:25] LABS: CALCIUM LEVEL 9.1 MG/DL (8.8-10.2); CREATININE FOR GFR 1.66 MG/DL (0.55-1.30); GLOMERULAR FILTRATION RATE 33.1 (>45); MAGNESIUM LEVEL 2.3 MG/DL (1.8-2.4); POTASSIUM SERUM 4.3 MEQ/L (3.5-5.1)
[2019-06-25] MEDS ORDERED: HumaLOG INSULIN (NovoLOG) PER UNIT SC SCH ×2 (07:30→21:00)
[2019-06-25] MEDS ORDERED: TIOTROPIUM INHALER/CAPSULE (SPIRIVA) INH SCH (08:00)
[2019-06-25] MEDS ORDERED: FUROSEMIDE 40 MG TAB PO SCH (09:00)
[2019-06-25] MEDS ORDERED: ISOSORBIDE MON. (IMDUR) 60 MG XR TAB PO SCH (09:00)
[2019-06-25] MEDS ORDERED: amLODIPine 5 MG TAB PO SCH (09:00)
[2019-06-25] MEDS ORDERED: ENTER DRUG NAME HERE (PATIENT'S OWN MED) INH SCH (09:00)
[2019-06-25] MEDS ORDERED: FIBER-CON 625 MG TAB PO SCH (09:00)
[2019-06-25] MEDS ORDERED: FOLIC ACID 1 MG TAB PO SCH (09:00)
[2019-06-25] MEDS: CARVedilol 12.5 MG TAB PO SCH (09:14)
--- NOTE | 2019-06-25 09:45 | REP ---
REASON: Cough and dyspnea. COMPARISON: 06/06/2019 The technique utilized in obtaining the radiograph has magnified the cardiac silhouette and accentuated the interstitial markings. Since the last examination, a MediPort device has been placed, the tip is silhouetted out by monitoring tech leads strewn across the chest. There is a dual-chamber bipolar pacemaker device, status quo. The cardiomediastinal silhouette is unchanged. The lung simental are unchanged from the prior exam allowing for the differences in technique. IMPRESSION: No acute cardiopulmonary disease. Findings and limitations as described above. Electronically Signed by Timothy Washington DO 06/25/2019 10:56 A
--- NOTE | 2019-06-25 10:55 | DS.PDOC ---
Discharge Summary General Date of Admission June 24, 2019 at 19:32 Date of Discharge June 25, 2019 Primary Care Physician: DEENA FERRARA MD Attending Physician: DALTON COLLINS MD Discharge Summary PROCEDURES PERFORMED DURING STAY: [None]. ADMITTING DIAGNOSES: 1. SOB 2/2 CHF exacerbation vs Symptomatic anemia DISCHARGE DIAGNOSES: 1. SOB 2/2 CHF exacerbation vs Symptomatic anemia COMPLICATIONS/CHIEF COMPLAINT: Systolic Chf Acute Or Chronic. HISTORY OF PRESENT ILLNESS: This is a 64-year-old female saw her oncologist yesterday and reported feeling well but was found to have a hemoglobin of 7.2. She was offered transfusion but declined. This morning at about noon she begun to feel short of breath, "like every thing is shutting off" and she was not getting enough oxygen. Today she the shortness of breath is worse when she walks a few feet. Her symptoms got gradually worse as the day went on therefore she decided to come to the hospital. She denies having chest pain, denies missing any doses of her diuretics, denies eating food that someone else cooked, denies having unilateral leg swelling, denies having fever or chills, denies having a runny nose, denies having a change in her chronic cough, and denies wheezing. She feels like she has lost we ight. She reports "drinking quiet a bit of fluid" all the time. Blood work done in the ER revealed a hemoglobin of 7.8, and a BNP greater than 2000. 1 units of PRBCs and Lasix have been ordered HOSPITAL COURSE: The patient was admitted for possible CHF exacerbation vs symptomatic anemia in setting of transfusion dependence from CMML and chemotherapy. She was given 2U pRBCs and hgb improved to 9.4 from 7.1. She was diuresed and output was around 3L. All other labs remained stable. On HD#2 the patient reported her SOB had improved. She was sent home in stable condition with plan to follow up with Oncology and PCP. DISCHARGE MEDICATIONS: Please see below. ALLERGIES: Please see below. PHYSICAL EXAMINATION ON DISCHARGE: VITAL SIGNS: Please see below. GENERAL APPEARANCE: Laying in bed, appears stated age, no acute distress, calm, cooperative HEENT: EOMI, PERRLA, neck is supple with no thyromegaly or lymphadenopathy RESPIRATORY: Some scattered wheezing bilaterally, otherwise no other adventitious breath sounds appreciated CARDIOVASCULAR: no JVD, RRR, no murmurs/rubs/gallops, normal S1 and S2 ABDOMEN: +BS, soft, nontender to palpation in all four quadrants, no masses/organomegaly EXTREMITIES: no clubbing, cyanosis or edema noted NEUROLOGICAL: CN 2-12 intact, No obvious focal deficits PSYCHIATRIC: normal mood/affect Skin: No rashes or ulcers appreciated, warm and well-perfused LN: No significant cervical or inguinal lymphadenopathy LABORATORY DATA: Please see below. IMAGING: CXR: REASON: Cough and dyspnea. COMPARISON: 06/06/2019 The technique utilized in obtaining the radiograph has magnified the cardiac silhouette and accentuated the interstitial markings. Since the last examination, a MediPort device has been placed, the tip is silhouetted out by air sampling and monitoring leads strewn across the chest. There is a dual-chamber bipolar pacemaker device, status quo. The cardiomediastinal silhouette is unchanged. The lung simental are unchanged from the prior exam allowing for the differences in technique. IMPRESSION: No acute cardiopulmonary disease. Findings and limitations as described above. PROGNOSIS: fair ACTIVITY: [As tolerated]. DIET: consistent carb DISCHARGE PLAN: Home DISPOSITION: . DISCHARGE INSTRUCTIONS: 1. Follow up with Oncology, PCP ITEMS TO FOLLOWUP ON ON OUTPATIENT: None DISCHARGE CONDITION: [Stable]. TIME SPENT ON DISCHARGE: Greater than 35 minutes. Vital Signs/I&Os Vital Signs Date Time Temp Pulse Resp B/P (MAP) Pulse Ox O2 Delivery O2 Flow Rate FiO2 06/25/19 09:15 128/61 06/25/19 09:15 70 06/25/19 09:00 97 Room Air 06/25/19 08:00 98.5 20 I&O- Last 24 Hours up to 6 AM 06/25/19 05:59 Intake Total 1780 ml Output Total 2625 ml Balance -845 ml Laboratory Data Labs 24H Laboratory Tests 2 06/24/19 16:57: Immature Granulocyte % (Auto) , Neutrophils (%) (Auto) , Nucleated Red Blood Cells % (auto) 11.7H, Neutrophils 31, Band Neutrophils 15H, Lymphocytes (Manual) 34, Monocytes (Manual) 7H, Basophils (Manual) 3H, Metamyelocytes 1H, Myelocytes 2H, Blastocytes 2H, Atypical Lymphocytes 5, Hypochromasia 1+, Anisocytosis 2+, Tear Drop Cells 1+, Platelet Estimate DECREASED, Immature Platelet Fraction 37.5H, Prothrombin Time 15.6H, Prothromb Time International Ratio 1.27, D-Dimer, Quantitative 683.35H, Anion Gap 8, Glomerular Filtration Rate 30.9L, Lactic Ac id Level 1.1, Calcium Level 9.0, Phosphorus Level 3.2, Magnesium Level 2.4, Total Bilirubin 0.7, Direct Bilirubin 0.2, Aspartate Amino Transf (AST/SGOT) 8, Alanine Aminotransferase (ALT/SGPT) 12, Alkaline Phosphatase 84, Total Creatine Kinase 23L, Creatine Kinase MB < 1.0, Creatine Kinase MB Relative Index 4.35H, Troponin I < 0.02, ST-Cjl-N-Type Natriuretic Peptide 2942H, Total Protein 6.9, Albumin 3.4, Albumin/Globulin Ratio 0.97L, Thyroid Stimulating Hormone (TSH) 4.520H 06/24/19 22:33: Troponin I < 0.02 06/24/19 22:55: Bedside Glucose (Misc Panel) 149H 06/25/19 04:41: Nucleated Red Blood Cells % (auto) 10.7H, Anion Gap 8, Glomerular Filtration Rate 33.1L, Calcium Level 9.1, Magnesium Level 2.3, Troponin I < 0.02, Ferritin 976H CBC/BMP Laboratory Tests 06/24/19 16:57 06/25/19 04:41 FSBS Laboratory Tests Test 06/24/19 22:55 Range/Units Bedside Glucose (Misc Panel) 149 80-115 MG/DL Discharge Medications Scheduled Amlodipine Besylate (Amlodipine Besylate) 5 Mg Tablet, 5 MG PO DAILY, (Reported) DINNER Calcium Polycarbophil (Fibercon) 625 Mg Tab, 625 MG PO DAILY, (Reported) DINNER Carvedilol (Carvedilol) 12.5 Mg Tab, 12.5 MG PO BID, (Reported) Folic Acid (Folic Acid) 1 Mg Tablet, 1 MG PO DAILY, (Reported) DINNER Furosemide (Lasix) 40 Mg Tab, 40 MG PO BID, (Reported) AM AND MID AFTERNOON Insulin Glargine,Hum.rec.anlog (Basaglar Kwikpen U-100) 100 Unit/1 Ml Insuln.pen, 30 UNIT SC QHS, (Reported) Insulin Human Lispro (Humalog) 100 Unit/1 Ml Vial, 1 DOSE SC TID, (Reported) SLIDING SCALE Isosorbide Mononitrate (Isosorbide Mononitrate ER) 60 Mg Tab, 60 MG PO DAILY, (Reported) DINNER Pravastatin Sodium (Pravastatin Sodium) 40 Mg Tab, 40 MG PO DAILY, (Reported) DINNER Umeclidinium [place] (Incruse Ellipta) 62.5 Mcg Blst.w.dev, 1 PUFF INH DAILY, (Reported) Scheduled PRN Sodium Chloride (Nasal [place]) 44 Ml [place], 2 SPRAYS NA Q2H PRN for NASAL CONGESTION, (Reported) Allergies Coded Allergies: losartan (Verified Allergy, Severe, throat swelling, 06/28/18) GME ATTESTATION GME ATTESTATION My faculty preceptor for this patient encounter was physically present during the encounter and was fully available. All aspects of the patient interview, examination, medical decision making process, and medical care plan development were reviewed and approved by the faculty preceptor. The faculty preceptor is a magallanes and concurs with the plan as stated in the body of this note and will attest to such by his/her cosignature. DEENA FERRARA MD June 25, 2019 10:55
--- NOTE | 2019-06-25 14:13 | ECHO ---
DATE OF STUDY: 06/25/2019 REFERRING PHYSICIAN: Mellissa Reese MD INDICATION: Dyspnea. HEIGHT: 168 cm WEIGHT: 82 kg 2D MEASUREMENTS: Left atrium: 3.5 cm LVOT: 2.0 cm Aortic annulus: 2.2 cm Proximal ascending aorta: 3.3 cm Ventricular septum: 1.25-1.30 cm Posterior wall: 1.15-1.26 cm Left ventricle diastole: 5.0 cm Inferior vena cava: 1.7 cm (more than 50% respiratory variation) DOPPLER MEASUREMENTS: No aortic stenosis. No aortic regurgitation. Aortic valve velocity: 132 cm/s LVOT velocity: 101 cm/s LVOT VTI: 20.5 cm No mitral stenosis. No mitral regurgitation. Mitral E velocity: 95.5 cm/s Mitral A velocity: 109 cm/s Mitral deceleration time: 218 ms Very mild tricuspid regurgitation. Estimated right ventricle systolic pressure: 33-38 mmHg assuming a pressure of 5-10 mmHg No pulmonic regurgitation. Pulmonary acceleration time: 116 ms MITRAL ANNULAR TISSUE DOPPLER: E prime septal: 5.8 cm/s E prime lateral: 7.29 cm/s DESCRIPTION: Rhythm was sinus. Image quality was adequate. No pericardial effusion. This was a 2D, M-mode, color flow Doppler, and pulse wave Doppler examination and included mitral annular tissue Doppler. CONCLUSIONS: 1. Mild concentric left ventricle hypertrophy. Normal regional left ventricle (LV) wall motion and wall thickening. Normal LV systolic function. Left ventricular ejection fraction (LVEF) 60% by visual estimate. Grade 1 LV diastolic dysfunction. 2. Moderate mitral annular calcification. No mitral regurgitation. No mitral stenosis. 3. Suggestive of mild elevation of estimated right ventricle systolic pressure. 4. Cardiac rhythm management endocardial leads present with an implantable cardioverter-defibrillator (ICD) coursing towards the right ventricle apex and a right atrial pacing lead. 5. No pericardial effusion. 6. Otherwise, normal-appearing echocardiogram Doppler findings.
--- NOTE | 2019-06-26 11:10 | ECGEPIP ---
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
== END 2019-06-25 12:03 | disposition home or self-care (01) | DRG 194 ==
LOC: M ED 16:31 → M ED INP 19:32 → ENRESERV 20:09 → M PCU 22:01
PROVIDERS: ADMIT Internal Medicine; ATTEND Internal Medicine
PROC: 30233N1 Transfusion of Nonautologous Red Blood Cells into Peripheral Vein, Percutaneous Approach (ICD-10-PCS; principal; 2019-06-24)
DX: I13.0 Hypertensive heart and chronic kidney disease with heart failure and stage 1 through stage 4 chronic kidney disease, or unspecified chronic kidney disease (principal); C93.10 Chronic myelomonocytic leukemia not having achieved remission; N18.4 Chronic kidney disease, stage 4 (severe); E11.22 Type 2 diabetes mellitus with diabetic chronic kidney disease; D64.81 Anemia due to antineoplastic chemotherapy; J43.9 Emphysema, unspecified; I70.1 Atherosclerosis of renal artery; I25.10 Atherosclerotic heart disease of native coronary artery without angina pectoris; E78.5 Hyperlipidemia, unspecified; N26.1 Atrophy of kidney (terminal); F17.200 Nicotine dependence, unspecified, uncomplicated; D63.0 Anemia in neoplastic disease; M81.0 Age-related osteoporosis without current pathological fracture; K57.90 Diverticulosis of intestine, part unspecified, without perforation or abscess without bleeding; Z95.810 Presence of automatic (implantable) cardiac defibrillator; Z95.5 Presence of coronary angioplasty implant and graft; Z79.4 Long term (current) use of insulin; Z79.899 Other long term (current) drug therapy; Z88.8 Allergy status to other drugs, medicaments and biological substances; I50.23 Acute on chronic systolic (congestive) heart failure

== ENCOUNTER 2019-07-26 10:30 | Outpatient (CLI) | payer OTHER ==
[~2019-07-26] VITALS: Ht 167.6 cm; Wt 79.0 kg
[~2019-07-26 10:30] MED LIST changes: +ACETAMINOPHEN TAB 650MG DOSE (2X325MG) PO SCH; +AMLO5TAB6 PO; +EQ S0.65; +FOLI800C PO; +diphenhydrAMINE 25MG CAP PO SCH
[2019-07-26 11:15] VITALS: BP 128/58
[2019-07-26] MEDS ORDERED: SODIUM CHLORIDE 0.9% INJ 10 ML SYR IV PRN (11:15)
[2019-07-26 11:30] VITALS: BP 108/53
[2019-07-26 14:35] VITALS: BP 128/58
[2019-07-27] MEDS ORDERED: SODIUM CHLORIDE 0.9% INJ 10 ML SYR IV SCH (09:00)
== END 2019-07-26 14:30 | disposition home or self-care (01) ==
LOC: M INFU 10:30
PROVIDERS: ATTEND Internal Medicine Hematology & Oncology
DX: C93.10 Chronic myelomonocytic leukemia not having achieved remission (principal); D46.9 Myelodysplastic syndrome, unspecified; D61.818 Other pancytopenia; Z88.8 Allergy status to other drugs, medicaments and biological substances
CPT/HCPCS: 36430; J1642; P9016; P9034

== ENCOUNTER 2019-07-27 10:15 | Outpatient (CLI) | payer OTHER ==
[~2019-07-27] VITALS: Ht 167.6 cm; Wt 79.0 kg
[2019-07-27 11:12] VITALS: BP 96/52
[2019-07-27 11:13] VITALS: BP 96/52
[2019-07-27 11:15] VITALS: BP 107/52
[2019-07-27] MEDS ORDERED: SODIUM CHLORIDE 0.9% INJ 10 ML SYR IV PRN (11:30)
[2019-07-27 12:20] VITALS: BP 124/74
[2019-07-27 12:59] VITALS: BP 131/68
[2019-07-28] MEDS ORDERED: SODIUM CHLORIDE 0.9% INJ 10 ML SYR IV SCH (09:00)
== END 2019-07-27 13:00 | disposition home or self-care (01) ==
LOC: M INFU 10:15
PROVIDERS: ATTEND Internal Medicine Hematology & Oncology
DX: D61.818 Other pancytopenia (principal); D46.9 Myelodysplastic syndrome, unspecified; C93.10 Chronic myelomonocytic leukemia not having achieved remission; Z88.8 Allergy status to other drugs, medicaments and biological substances
CPT/HCPCS: 36430; J1642; P9016

== ENCOUNTER 2019-08-18 10:20 | Outpatient (CLI) | payer OTHER ==
[~2019-08-18] VITALS: Ht 167.6 cm; Wt 81.9 kg
[~2019-08-18 10:20] MED LIST changes: -ACETAMINOPHEN TAB 650MG DOSE (2X325MG) PO SCH; +AMLO1TAB24 PO; -AMLO5TAB6 PO; +D31000TA2 PO; +PROC10TA4 PO; -diphenhydrAMINE 25MG CAP PO SCH
[2019-08-18 10:44] VITALS: BP 129/61
[2019-08-18 11:00] VITALS: BP 133/71
[2019-08-18] MEDS ORDERED: SODIUM CHLORIDE 0.9% INJ 10 ML SYR IV PRN (11:00)
[2019-08-19] MEDS ORDERED: SODIUM CHLORIDE 0.9% INJ 10 ML SYR IV SCH (09:00)
[2019-12-06] MEDS ORDERED: DECI1TAB PO (16:27)
[2019-12-29] MEDS ORDERED: LEVO500T3 PO (10:26)
== END 2019-08-18 12:20 | disposition home or self-care (01) ==
LOC: M INFU 10:20
PROVIDERS: ATTEND Internal Medicine Hematology & Oncology
DX: C93.10 Chronic myelomonocytic leukemia not having achieved remission (principal); D69.59 Other secondary thrombocytopenia; Z88.8 Allergy status to other drugs, medicaments and biological substances
CPT/HCPCS: 36430; J1642; P9036

== ENCOUNTER 2019-08-22 09:54 | Outpatient (CLI) | payer OTHER ==
[~2019-08-22] VITALS: Ht 198.1 cm; Wt 81.6 kg
[2019-08-22] VITALS (7 sets, daily range): BP systolic 97–126; BP diastolic 52–72
[~2019-08-22 09:54] MED LIST changes: -AMLO1TAB24 PO; +AMLO5TAB6 PO; -D31000TA2 PO; +SODIUM CHLORIDE 0.9% INJ 10 ML SYR IV PRN; +SODIUM CHLORIDE 0.9% INJ 10 ML SYR IV SCH; +VITAD1000T PO
[2019-08-22] MEDS ORDERED: ACETAMINOPHEN TAB 650MG DOSE (2X325MG) PO ONE (10:30)
[2019-08-22] MEDS ORDERED: diphenhydrAMINE 25MG CAP PO ONE (10:30)
== END 2019-08-22 16:00 | disposition home or self-care (01) ==
LOC: M INFU 09:54
PROVIDERS: ATTEND Internal Medicine Hematology & Oncology
DX: D64.9 Anemia, unspecified (principal)
CPT/HCPCS: 36430; 36591; 86850; 86900; 86901; 86920; P9034

== ENCOUNTER 2019-08-23 09:51 | Outpatient (CLI) | payer OTHER ==
[2019-08-23] VITALS (8 sets, daily range): BP systolic 106–132; BP diastolic 51–66
[~2019-08-23] VITALS: Ht 167.6 cm; Wt 81.6 kg
[~2019-08-23 09:51] MED LIST changes: +ACETAMINOPHEN TAB 650MG DOSE (2X325MG) PO SCH; -SODIUM CHLORIDE 0.9% INJ 10 ML SYR IV PRN; -SODIUM CHLORIDE 0.9% INJ 10 ML SYR IV SCH; +diphenhydrAMINE 25MG CAP PO SCH
[2019-08-23] MEDS ORDERED: SODIUM CHLORIDE 0.9% INJ 10 ML SYR IV PRN (10:00)
[2019-08-24] MEDS ORDERED: SODIUM CHLORIDE 0.9% INJ 10 ML SYR IV SCH (09:00)
== END 2019-08-23 13:33 | disposition home or self-care (01) ==
LOC: M INFU 09:51
PROVIDERS: ATTEND Internal Medicine Hematology & Oncology
DX: D64.9 Anemia, unspecified (principal)
CPT/HCPCS: 36430; J1642; P9016

== ENCOUNTER 2019-08-25 12:59 | Outpatient (CLI) | payer OTHER ==
[~2019-08-25] VITALS: Ht 165.1 cm; Wt 83.0 kg
[~2019-08-25 12:59] MED LIST changes: -ACETAMINOPHEN TAB 650MG DOSE (2X325MG) PO SCH; +AMLO1TAB24 PO; -AMLO5TAB6 PO; +D31000TA2 PO; +SODIUM CHLORIDE 0.9% INJ 10 ML SYR IV SCH; -VITAD1000T PO
[2019-08-25 13:15] VITALS: BP 124/57
[2019-08-25 14:56] VITALS: BP 121/56
[2019-08-25 15:41] VITALS: BP 138/65
[2019-08-25 16:35] VITALS: BP 141/64
[2019-12-06] MEDS ORDERED: DECI1TAB PO (16:27)
[2019-12-29] MEDS ORDERED: LEVO500T3 PO (10:26)
== END 2019-08-25 16:50 | disposition home or self-care (01) ==
LOC: M INFU 12:59
PROVIDERS: ATTEND Internal Medicine Hematology & Oncology
DX: D46.9 Myelodysplastic syndrome, unspecified (principal)
CPT/HCPCS: 36430; 86850; 86900; 86901; 86920; J1642; P9016

== ENCOUNTER 2019-08-30 10:51 | Outpatient (CLI) | payer OTHER ==
[~2019-08-30] VITALS: Ht 165.1 cm; Wt 83.0 kg
[~2019-08-30 10:51] MED LIST changes: -SODIUM CHLORIDE 0.9% INJ 10 ML SYR IV SCH; -diphenhydrAMINE 25MG CAP PO SCH
[2019-08-30 11:12] VITALS: BP 125/57
[2019-08-30] MEDS ORDERED: SODIUM CHLORIDE 0.9% INJ 10 ML SYR IV PRN (11:15)
[2019-08-30 12:15] VITALS: BP 125/57
[2019-08-30 12:35] VITALS: BP 118/56
[2019-08-30 13:35] VITALS: BP 126/58
[2019-08-30 13:45] VITALS: BP 136/78
[2019-08-30 14:06] VITALS: BP 136/78
[2019-08-31] MEDS ORDERED: SODIUM CHLORIDE 0.9% INJ 10 ML SYR IV SCH (09:00)
[2019-12-06] MEDS ORDERED: DECI1TAB PO (16:27)
[2019-12-29] MEDS ORDERED: LEVO500T3 PO (10:26)
== END 2019-08-30 14:00 | disposition home or self-care (01) ==
LOC: M INFU 10:51
PROVIDERS: ATTEND Internal Medicine Hematology & Oncology
DX: D46.9 Myelodysplastic syndrome, unspecified (principal)
CPT/HCPCS: 36430; 86850; 86900; 86901; 86920; J1642; P9034

== ENCOUNTER 2019-08-31 10:04 | Outpatient (CLI) | payer OTHER ==
[~2019-08-31] VITALS: Ht 165.1 cm; Wt 83.0 kg
[2019-08-31] MEDS ORDERED: diphenhydrAMINE 25MG CAP PO ONE (10:15)
[2019-08-31] MEDS ORDERED: ACETAMINOPHEN TAB 650MG DOSE (2X325MG) PO ONE (10:15)
[2019-08-31 10:26] VITALS: BP 120/55
[2019-08-31 10:40] VITALS: BP 135/60
[2019-08-31 12:01] VITALS: BP 127/60
[2019-08-31 12:30] VITALS: BP 115/51
[2019-08-31 12:45] VITALS: BP 106/52
[2019-08-31] MEDS ORDERED: SODIUM CHLORIDE 0.9% INJ 10 ML SYR IV PRN (13:15)
[2019-08-31 13:45] VITALS: BP 106/56
[2019-09-01] MEDS ORDERED: SODIUM CHLORIDE 0.9% INJ 10 ML SYR IV SCH (09:00)
[2019-12-06] MEDS ORDERED: DECI1TAB PO (16:27)
[2019-12-29] MEDS ORDERED: LEVO500T3 PO (10:26)
== END 2019-08-31 14:30 | disposition home or self-care (01) ==
LOC: M INFU 10:04
PROVIDERS: ATTEND Internal Medicine Hematology & Oncology
DX: D46.9 Myelodysplastic syndrome, unspecified (principal)
CPT/HCPCS: 36430; J1642; P9016

== ENCOUNTER 2019-09-16 12:30 | Outpatient (CLI) | payer BC, OTHER ==
[~2019-09-16 12:30] MED LIST changes: +ACETAMINOPHEN TAB 650MG DOSE (2X325MG) As Ordered ONE; +diphenhydrAMINE 25MG CAP As Ordered ONE
[2019-12-06] MEDS ORDERED: DECI1TAB PO (16:27)
[2019-12-10 08:52] LABS: ALBUMIN 3.4 GM/DL (3.2-5.2); BILIRUBIN,TOTAL 0.7 MG/DL (0.2-1.0); CALCIUM LEVEL 9.1 MG/DL (8.8-10.2); CREATININE FOR GFR 1.61 MG/DL (0.55-1.30); GLOMERULAR FILTRATION RATE 34.3 (>45); POTASSIUM SERUM 3.4 MEQ/L (3.5-5.1); TOTAL PROTEIN 6.9 GM/DL (6.4-8.2)
[2019-12-29] MEDS ORDERED: LEVO500T3 PO (10:26)
== END 2019-09-16 14:53 | disposition home or self-care (01) ==
LOC: M INFU 12:30
PROVIDERS: ATTEND Internal Medicine Medical Oncology
DX: D64.9 Anemia, unspecified (principal); D46.9 Myelodysplastic syndrome, unspecified
CPT/HCPCS: 36430; 80053; J1642; P9016

== ENCOUNTER 2019-09-23 06:48 | Outpatient (CLI) | payer OTHER ==
[~2019-09-23 06:48] MED LIST changes: -ACETAMINOPHEN TAB 650MG DOSE (2X325MG) As Ordered ONE; -diphenhydrAMINE 25MG CAP As Ordered ONE
[2019-09-23] MEDS ORDERED: ACETAMINOPHEN TAB 650MG DOSE (2X325MG) As Ordered ONE (07:10)
[2019-09-23] MEDS ORDERED: diphenhydrAMINE 25MG CAP As Ordered ONE (07:11)
[2019-12-06] MEDS ORDERED: DECI1TAB PO (16:27)
[2019-12-29] MEDS ORDERED: LEVO500T3 PO (10:26)
== END 2019-09-23 10:00 | disposition home or self-care (01) ==
LOC: M INFU 06:48
PROVIDERS: ATTEND Internal Medicine Medical Oncology
DX: D46.9 Myelodysplastic syndrome, unspecified (principal)
CPT/HCPCS: 36430; J1642; P9016

== ENCOUNTER 2019-10-21 08:53 | Outpatient (CLI) | payer OTHER ==
[~2019-10-21] VITALS: Ht 167.6 cm; Wt 82.4 kg
[2019-10-21] VITALS (7 sets, daily range): BP systolic 110–134; BP diastolic 53–62
[~2019-10-21 08:53] MED LIST changes: +ACETAMINOPHEN TAB 650MG DOSE (2X325MG) PO SCH; +FUROSEMIDE 20MG/2ML VIAL (J1940) IV ONE; +diphenhydrAMINE 25MG CAP PO SCH
[2019-10-21] MEDS ORDERED: ACETAMINOPHEN TAB 650MG DOSE (2X325MG) As Ordered ONE (09:10)
[2019-10-21] MEDS ORDERED: diphenhydrAMINE 25MG CAP As Ordered ONE (09:10)
[2019-12-06] MEDS ORDERED: DECI1TAB PO (16:27)
[2019-12-29] MEDS ORDERED: LEVO500T3 PO (10:26)
== END 2019-10-21 14:20 | disposition home or self-care (01) ==
LOC: M INFU 08:53
PROVIDERS: ATTEND Internal Medicine Medical Oncology
DX: D46.9 Myelodysplastic syndrome, unspecified (principal); Z88.8 Allergy status to other drugs, medicaments and biological substances
CPT/HCPCS: 36430; P9016

== ENCOUNTER 2019-12-01 10:38 | Outpatient (CLI) | payer OTHER ==
[2019-12-01] VITALS (8 sets, daily range): BP systolic 122–152; BP diastolic 50–67
[~2019-12-01] VITALS: Ht 167.6 cm; Wt 79.7 kg
[~2019-12-01 10:38] MED LIST changes: -ACETAMINOPHEN TAB 650MG DOSE (2X325MG) PO SCH; -FUROSEMIDE 20MG/2ML VIAL (J1940) IV ONE; -diphenhydrAMINE 25MG CAP PO SCH
[2019-12-01] MEDS ORDERED: SODIUM CHLORIDE 0.9% INJ 10 ML SYR IV PRN (11:00)
[2019-12-01] MEDS ORDERED: ACETAMINOPHEN TAB 650MG DOSE (2X325MG) PO ONE (11:00)
[2019-12-01] MEDS ORDERED: diphenhydrAMINE 25MG CAP PO ONE (11:00)
[2019-12-01] MEDS ORDERED: FUROSEMIDE 20MG/2ML VIAL (J1940) IV ONE (13:00)
[2019-12-02] MEDS ORDERED: SODIUM CHLORIDE 0.9% INJ 10 ML SYR IV SCH (09:00)
[2019-12-06] MEDS ORDERED: DECI1TAB PO (16:27)
[2019-12-29] MEDS ORDERED: LEVO500T3 PO (10:26)
== END 2019-12-01 15:00 | disposition home or self-care (01) ==
LOC: M INFU 10:38
PROVIDERS: ATTEND Internal Medicine Medical Oncology
DX: D46.9 Myelodysplastic syndrome, unspecified (principal)
CPT/HCPCS: 36430; J1642; P9016

== ENCOUNTER 2020-01-31 07:58 | Outpatient (CLI) | payer MEDICARE, OTHER ==
[~2020-01-31] VITALS: Ht 167.6 cm; Wt 79.7 kg
[~2020-01-31 07:58] MED LIST changes: +ACYC400T PO; +DECI1TAB PO; +LEVO500T3 PO
[2020-01-31 08:12] VITALS: BP 109/65
[2020-01-31] MEDS ORDERED: SODIUM CHLORIDE 0.9% INJ 10 ML SYR IV PRN (08:30)
[2020-01-31 08:53] VITALS: BP 108/53
[2020-01-31] MEDS ORDERED: SODIUM CHLORIDE 0.9% INJ 10 ML SYR IV SCH (09:00)
[2020-01-31 09:43] VITALS: BP 117/56
[2020-01-31 10:30] VITALS: BP 138/60
[2020-01-31 11:30] VITALS: BP 147/61
[2020-01-31 11:50] VITALS: BP 133/75
== END 2020-01-31 11:50 | disposition home or self-care (01) ==
LOC: M INFU 07:58
PROVIDERS: ATTEND Internal Medicine Medical Oncology
DX: D46.9 Myelodysplastic syndrome, unspecified (principal); D64.9 Anemia, unspecified; Z88.8 Allergy status to other drugs, medicaments and biological substances
CPT/HCPCS: 36430; J1642; P9036

== ENCOUNTER 2020-02-16 09:06 | Observation (INO) | payer MEDICARE, OTHER ==
[2020-02-16] VITALS (10 sets, daily range): BP systolic 131–150; BP diastolic 50–61
[~2020-02-16] VITALS: Ht 170.2 cm; Wt 78.1 kg
[~2020-02-16 09:06] MED LIST changes: +FOLIC ACID 1 MG TAB PO SCH; +ISOS1TAB36 PO; -ISOS60TA2 PO; +ISOSORBIDE MON. (IMDUR) 60 MG XR TAB PO SCH; +PRAVASTATIN 20 MG TAB PO SCH
[2020-02-16] MEDS ORDERED: PREDNISOL (09:14)
[2020-02-16] MEDS ORDERED: FIBE625T PO (10:48)
[2020-02-16] MEDS ORDERED: ACYC400T PO (10:48)
[2020-02-16] MEDS ORDERED: ACET-683 PO (10:49)
[2020-02-16 11:04] LABS: BILIRUBIN,TOTAL 0.5 MG/DL (0.2-1.0); CALCIUM LEVEL 8.3 MG/DL (8.8-10.2); CREATININE FOR GFR 1.73 MG/DL (0.55-1.30); GLOMERULAR FILTRATION RATE 31.5 (>45); POTASSIUM SERUM 4.4 MEQ/L (3.5-5.1)
[2020-02-16] MEDS ORDERED: DEXTROSE 50% 50 ML SYRINGE IV PRN (11:15)
[2020-02-16] MEDS ORDERED: GLUCAGON INJ 1MG VIAL SC PRN (11:15)
[2020-02-16] MEDS ORDERED: ACETAMINOPHEN 500 MG TAB PO PRN (11:15)
[2020-02-16] MEDS ORDERED: GLUCOSE 4GM CHEW TABLET PO PRN (11:15)
[2020-02-16 11:19] LABS: RSV AMPLIFICATION NEGATIVE (NEGATIVE)
[2020-02-16] MEDS: ACYCLOVIR 200 MG CAPSULE PO SCH ×2 (12:15→21:00)
[2020-02-16] MEDS: CARVedilol 12.5 MG TAB PO SCH ×2 (12:16→21:00)
[2020-02-16] MEDS: FUROSEMIDE 40 MG TAB PO SCH ×2 (12:16→21:00)
[2020-02-16] MEDS: PROCHLORPERAZINE 5 MG TAB (S0183) PO SCH ×3 (12:18→22:00)
[2020-02-16] MEDS: HumaLOG INSULIN (NovoLOG) PER UNIT SC SCH ×2 (13:12→17:28)
--- NOTE | 2020-02-16 13:37 | ECGEPIP ---
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
--- NOTE | 2020-02-16 14:39 | HPE ---
HISTORY AND PHYSICAL DATE OF ADMISSION: 02/16/2020 DIAGNOSIS: 1. Symptomatic anemia. HISTORY OF PRESENT ILLNESS: Farida Cotton is a 65-year-old with CML sent by her oncologist for transfusions, being admitted to the Hospitalist Service for observation status transfusion of blood and platelets. She has received these numerous times over the last year. She has CML diagnosed by bone marrow biopsy in 04/07. She is currently on Decitabine/Cedazuridine with intermittent Neupogen. PAST MEDICAL HISTORY: 1. Ischemic cardiomyopathy. 2. Coronary disease. 3. Coronary disease stent in unspecified vessels. 4. Stage IV chronic kidney disease with GFR of around 30. 5. Atrophic left kidney. 6. HECTOR, suspected never diagnosed. 7. Asthma. 8. Type 2 diabetes. 9. Hyperlipidemia. 10.Anemia of chronic disease. 11.Folate deficiency. PAST SURGICAL HISTORY: 1. Pacemaker with defibrillator in 12/03. FAMILY HISTORY: Mother had throat, thyroid and uterine cancer. A sister had diabetes and lupus. Three brothers with coronary disease. SOCIAL HISTORY: Quit smoking in 2013. Restarted in February 2019, half a pack per day. Denies any alcohol use. REVIEW OF SYSTEMS: No epistaxis, rectal bleeding, urinary bleeding, fevers, chills or night sweats. MEDICATIONS: See ER list. ALLERGIES: Losartan. PHYSICAL EXAMINATION: VITAL SIGNS: Per flow sheet. GENERAL: Alert, conversant and in no distress. Eager to "get my transfusion and go home." HEENT: Unremarkable. LUNGS: Clear. HEART: Without murmur. ABDOMEN: Soft, nontender, no masses. Spleen not enlarged. EXTREMITIES: No clubbing, no cyanosis, no edema. Normal strength in the arms and legs. LABS: White count 1.5, hemoglobin 5.3, platelets of 7. Sodium 136, potassium 4.4, BUN 62, creatinine 1.7, glucose 145. IMPRESSION: 1. Symptomatic anemia. She is going to be transfused 2 units of packed red blood cells with a follow-up CBC. I think she has received 46 units of blood so far this year. 2. Thrombocytopenia, per Oncology recommendations she is being transfused single donor apheresis platelets. Follow-up CBC pending. She has no active bleeding. 3. Diabetes, on sliding scale insulin. Hold her basal insulin for now. 4. Hypertension, continue her antihypertensive therapy. 5. Coronary disease, continue antianginal therapy. Expect discharge after transfusion with follow-up CBC. She has an appointment to be seen again by Oncology on 02/20/2020.
[2020-02-16] MEDS ORDERED: FOLIC ACID 1 MG TAB PO SCH (18:00)
[2020-02-16] MEDS ORDERED: ISOSORBIDE MON. (IMDUR) 60 MG XR TAB PO SCH (18:00)
[2020-02-16] MEDS ORDERED: HumaLOG INSULIN (NovoLOG) PER UNIT SC SCH (21:00)
[2020-02-16 21:01] LABS: HEMATOCRIT 23.9 % (36.0-47.0); MEAN CORPUSCULAR HEMOGLOBIN 29.7 pg (27.0-33.0); MEAN CORPUSCULAR HGB CONC 32.6 g/dl (32.0-36.5); MEAN CORPUSCULAR VOLUME 90.9 fl (80.0-96.0); RED BLOOD COUNT 2.63 10^6/uL (4.00-5.40)
[2020-02-16 21:02] LABS: HEMOGLOBIN 7.8 g/dl (12.0-15.5)
[2020-02-16 21:03] LABS: PLATELET COUNT, AUTOMATED 26 10^3/uL (150-450)
[2020-02-16] MEDS ORDERED: PRAV1TAB39 PO (21:26)
[2020-02-17] MEDS ORDERED: amLODIPine 5 MG TAB PO SCH (09:00)
[2020-03-20] MEDS ORDERED: ACYC1CAP20 PO (08:30)
[2020-03-20] MEDS ORDERED: PROM-188 PO (08:30)
[2020-03-20] MEDS ORDERED: LEVO500T3 PO (08:30)
[2020-03-20] MEDS ORDERED: PANT40TA29 PO (08:30)
[2020-03-20] MEDS ORDERED: FLUC200T2 PO (08:30)
[2020-03-20] MEDS ORDERED: SENN1TAB41 PO (08:30)
== END 2020-02-16 21:40 | disposition home or self-care (01) ==
LOC: M ED 09:06 → M ED INP 09:07 → M MS5PR 15:05
PROVIDERS: ADMIT Family Medicine; ATTEND Internal Medicine
DX: D64.9 Anemia, unspecified (principal); D69.6 Thrombocytopenia, unspecified; D52.9 Folate deficiency anemia, unspecified; C92.10 Chronic myeloid leukemia, BCR/ABL-positive, not having achieved remission; I10 Essential (primary) hypertension; E11.9 Type 2 diabetes mellitus without complications; E78.49 Other hyperlipidemia; I25.10 Atherosclerotic heart disease of native coronary artery without angina pectoris; Z98.61 Coronary angioplasty status; N18.4 Chronic kidney disease, stage 4 (severe); N26.1 Atrophy of kidney (terminal); J45.909 Unspecified asthma, uncomplicated; F17.218 Nicotine dependence, cigarettes, with other nicotine-induced disorders; Z79.899 Other long term (current) drug therapy; G47.30 Sleep apnea, unspecified
CPT/HCPCS: 36415; 36430; 36591; 80053; 85025; 85027; 85049; 85055; 86850; 86900; 86901; 86920; 87631; 93005; 96372; 99285; G0378; J1442; J1642; P9016; P9034

== ENCOUNTER 2020-02-20 08:57 | Outpatient (CLI) | payer MEDICARE, OTHER ==
[2020-02-20] VITALS (9 sets, daily range): BP systolic 113–160; BP diastolic 51–88
[~2020-02-20] VITALS: Ht 170.2 cm; Wt 78.1 kg
[~2020-02-20 08:57] MED LIST changes: +ACET-683 PO; -FOLIC ACID 1 MG TAB PO SCH; -ISOS1TAB36 PO; +ISOS60TA2 PO; -ISOSORBIDE MON. (IMDUR) 60 MG XR TAB PO SCH; +PRAV1TAB39 PO; -PRAVASTATIN 20 MG TAB PO SCH; +PREDNISOL
[2020-02-20] MEDS ORDERED: diphenhydrAMINE 25MG CAP PO ONE (09:15)
[2020-02-20] MEDS ORDERED: SODIUM CHLORIDE 0.9% INJ 10 ML SYR IV PRN (09:15)
[2020-02-20] MEDS ORDERED: ACETAMINOPHEN TAB 650MG DOSE (2X325MG) PO ONE (09:15)
[2020-02-21] MEDS ORDERED: SODIUM CHLORIDE 0.9% INJ 10 ML SYR IV SCH (09:00)
[2020-03-20] MEDS ORDERED: SENN1TAB41 PO (08:30)
[2020-03-20] MEDS ORDERED: FLUC200T2 PO (08:30)
[2020-03-20] MEDS ORDERED: LEVO500T3 PO (08:30)
[2020-03-20] MEDS ORDERED: ACYC1CAP20 PO (08:30)
[2020-03-20] MEDS ORDERED: PROM-188 PO (08:30)
[2020-03-20] MEDS ORDERED: PANT40TA29 PO (08:30)
== END 2020-02-20 17:15 | disposition home or self-care (01) ==
LOC: M INFU 08:57
PROVIDERS: ATTEND Internal Medicine Hematology & Oncology
DX: D46.9 Myelodysplastic syndrome, unspecified (principal); D46.4 Refractory anemia, unspecified; D69.6 Thrombocytopenia, unspecified; N18.4 Chronic kidney disease, stage 4 (severe); D63.1 Anemia in chronic kidney disease; C93.10 Chronic myelomonocytic leukemia not having achieved remission; Z88.8 Allergy status to other drugs, medicaments and biological substances
CPT/HCPCS: 36430; 36591; 85025; 85049; 85055; 86850; 86900; 86901; 86920; 96372; J0885; J1442; J1642; P9016; P9034

== ENCOUNTER 2020-02-23 10:38 | Outpatient (CLI) | payer MEDICARE, OTHER ==
[2020-02-23] VITALS (7 sets, daily range): BP systolic 125–131; BP diastolic 56–69
[~2020-02-23] VITALS: Ht 167.6 cm; Wt 78.1 kg
[2020-02-23] MEDS ORDERED: FUROSEMIDE 20MG/2ML VIAL (J1940) IV ONE (11:00)
[2020-02-23] MEDS ORDERED: ACETAMINOPHEN TAB 650MG DOSE (2X325MG) PO ONE (11:00)
[2020-02-23] MEDS ORDERED: SODIUM CHLORIDE 0.9% INJ 10 ML SYR IV PRN (11:00)
[2020-02-23] MEDS ORDERED: diphenhydrAMINE 25MG CAP PO ONE (11:00)
[2020-02-24] MEDS ORDERED: SODIUM CHLORIDE 0.9% INJ 10 ML SYR IV SCH (09:00)
== END 2020-02-23 15:00 | disposition home or self-care (01) ==
LOC: M INFU 10:38
PROVIDERS: ATTEND Internal Medicine Medical Oncology
DX: D46.9 Myelodysplastic syndrome, unspecified (principal); C93.10 Chronic myelomonocytic leukemia not having achieved remission; Z88.8 Allergy status to other drugs, medicaments and biological substances
CPT/HCPCS: 36430; 36591; 85025; 85049; 85055; 86850; 86900; 86901; 86920; 96372; J1442; J1642; P9016; P9034

== ENCOUNTER 2020-02-24 06:50 | Outpatient (CLI) | payer MEDICARE, OTHER ==
[2020-02-24] VITALS (7 sets, daily range): BP systolic 106–140; BP diastolic 55–67
[~2020-02-24] VITALS: Ht 167.6 cm; Wt 81.9 kg
[2020-02-24] MEDS ORDERED: diphenhydrAMINE 25MG CAP PO SCH (07:00)
[2020-02-24] MEDS ORDERED: ACETAMINOPHEN TAB 650MG DOSE (2X325MG) PO SCH (07:01)
[2020-02-24] MEDS ORDERED: SODIUM CHLORIDE 0.9% INJ 10 ML SYR IV PRN (08:00)
[2020-02-24] MEDS ORDERED: SODIUM CHLORIDE 0.9% INJ 10 ML SYR IV SCH (09:00)
[2020-02-24] MEDS ORDERED: FUROSEMIDE 20MG/2ML VIAL (J1940) IV ONE (10:00)
== END 2020-02-24 11:15 | disposition home or self-care (01) ==
LOC: M INFU 06:50
PROVIDERS: ATTEND Internal Medicine Medical Oncology
DX: D46.9 Myelodysplastic syndrome, unspecified (principal); Z88.8 Allergy status to other drugs, medicaments and biological substances
CPT/HCPCS: 36430; J1642; P9016; P9034

== ENCOUNTER 2020-03-01 09:50 | Outpatient (CLI) | payer MEDICARE, OTHER ==
[~2020-03-01] VITALS: Ht 167.6 cm; Wt 81.9 kg
[2020-03-01 10:30] VITALS: BP 125/59
[2020-03-01 13:15] VITALS: BP 145/65
[2020-03-01] MEDS ORDERED: SODIUM CHLORIDE 0.9% INJ 10 ML SYR IV PRN (13:30)
[2020-03-02] MEDS ORDERED: SODIUM CHLORIDE 0.9% INJ 10 ML SYR IV SCH (09:00)
== END 2020-03-01 13:30 | disposition home or self-care (01) ==
LOC: M INFU 09:50
PROVIDERS: ATTEND Internal Medicine Medical Oncology
DX: C94.6 Myelodysplastic disease, not elsewhere classified (principal); C93.10 Chronic myelomonocytic leukemia not having achieved remission; N18.9 Chronic kidney disease, unspecified; D63.1 Anemia in chronic kidney disease; Z88.8 Allergy status to other drugs, medicaments and biological substances
CPT/HCPCS: 36430; 36591; 85025; 85049; 85055; 86850; 86900; 86901; 96372; J1442; J1642; P9034; P9036

== ENCOUNTER 2020-03-06 12:56 | Emergency (ER) | payer MEDICARE, OTHER ==
[~2020-03-06] VITALS: Ht 167.6 cm; Wt 80.0 kg
[~2020-03-06 12:56] MED LIST changes: +ISOS1TAB36 PO; -ISOS60TA2 PO
[2020-03-06 14:03] LABS: MEAN CORPUSCULAR HEMOGLOBIN 30.1 pg (27.0-33.0); MEAN CORPUSCULAR HGB CONC 32.9 g/dl (32.0-36.5); MEAN CORPUSCULAR VOLUME 91.3 fl (80.0-96.0); RED BLOOD COUNT 1.83 10^6/uL (4.00-5.40)
--- NOTE | 2020-03-06 14:07 | REP ---
INDICATION: general weakness. COMPARISON: Comparison chest x-ray June 24, 2019.. TECHNIQUE: Upright AP portable radiograph. FINDINGS: Monitoring electrodes are seen. A right-sided Dohutx-U-Ryjr catheter is seen in place with its tip in the expected location of the SVC. A bipolar pacemaker is seen view of the left side with intact right heart leads. The lungs are well inflated and clear. The pleural angles are sharp. Pulmonary vasculature is not increased. Heart is near the upper range of normal unchanged. No significant bony abnormality is seen. IMPRESSION: Pacemaker and borderline heart size. Ubijpo-N-Oqzy catheter. No acute disease. <Electronically signed by Hebert Akhtar > 03/06/20 [id number]
[2020-03-06 14:12] LABS: HEMATOCRIT 16.7 % (36.0-47.0); HEMOGLOBIN 5.5 g/dl (12.0-15.5)
[2020-03-06 14:13] LABS: PLATELET COUNT, AUTOMATED 5 10^3/uL (150-450)
[2020-03-06] MEDS ORDERED: PANTOPRAZOLE 40MG VIAL (C9113 PER 1) IV ONE (14:15)
[2020-03-06 14:23] LABS: INR 1.28; PROTHROMBIN TIME 16.3 SECONDS (12.5-14.3)
[2020-03-06 14:24] LABS: PARTIAL THROMBOPLASTIN TIME 75.3 SECONDS (24.2-38.5)
[2020-03-06 14:50] LABS: BASOPHILS 1 % (0-1); LYMPHOCYTES 74 % (16-44); MONOCYTES 2 % (0-5); NEUTROPHILS 4 % (28-66); PROMYELOCYTES 1 % (0-0)
[2020-03-06 14:51] LABS: ATYPICAL LYMPH 4 % (0-5); BLAST CELLS 14 % (0-0); PLATELET ESTIMATE MARKED DECREASE (NORMAL); SMUDGE CELLS 2+
[2020-03-06 15:13] LABS: ALBUMIN 2.6 GM/DL (3.2-5.2); ALT/SGPT 12 U/L (12-78); BILIRUBIN,DIRECT 0.2 MG/DL (0.0-0.2); BILIRUBIN,TOTAL 0.6 MG/DL (0.2-1.0); BLOOD UREA NITROGEN 84 MG/DL (7-18); CALCIUM LEVEL 8.5 MG/DL (8.8-10.2); CARBON DIOXIDE LEVEL 21 MEQ/L (21-32); CHLORIDE LEVEL 110 MEQ/L (98-107); CK-MB VALUE MASS < 1.0 NG/ML (<3.6); CPK CREATINE PHOSPHOKINASE 21 U/L (26-192); CREATININE FOR GFR 1.62 MG/DL (0.55-1.30); GLOMERULAR FILTRATION RATE 33.9 (>45); GLUCOSE, FASTING 189 MG/DL (70-100); LIPASE 56 U/L (73-393); MB/CK RELATIVE INDEX 4.76 (< OR =4); POTASSIUM SERUM 4.7 MEQ/L (3.5-5.1); SODIUM LEVEL 139 MEQ/L (136-145); TOTAL PROTEIN 5.6 GM/DL (6.4-8.2); TROPONIN I < 0.02 NG/ML (< 0.10)
[2020-03-06 16:20] VITALS: BP 126/77
[2020-03-06 16:35] VITALS: BP 151/63
[2020-03-06 17:23] VITALS: BP 145/72
[2020-03-06 18:24] VITALS: BP 126/62
[2020-03-06 18:30] VITALS: BP 134/64
[2020-03-06 20:57] VITALS: BP 129/62
--- NOTE | 2020-03-07 05:43 | ECGEPIP ---
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
[2020-03-20] MEDS ORDERED: ACYC1CAP20 PO (08:30)
[2020-03-20] MEDS ORDERED: LEVO500T3 PO (08:30)
[2020-03-20] MEDS ORDERED: SENN1TAB41 PO (08:30)
[2020-03-20] MEDS ORDERED: FLUC200T2 PO (08:30)
[2020-03-20] MEDS ORDERED: PANT40TA29 PO (08:30)
[2020-03-20] MEDS ORDERED: PROM-188 PO (08:30)
== END 2020-03-06 21:01 | disposition short-term general hospital (02) ==
LOC: M ED 12:56
DX: C92.Z0 Other myeloid leukemia not having achieved remission (principal); K92.2 Gastrointestinal hemorrhage, unspecified; E11.9 Type 2 diabetes mellitus without complications; J45.909 Unspecified asthma, uncomplicated; N18.9 Chronic kidney disease, unspecified; D64.9 Anemia, unspecified; E78.9 Disorder of lipoprotein metabolism, unspecified; I25.10 Atherosclerotic heart disease of native coronary artery without angina pectoris; Z95.0 Presence of cardiac pacemaker; Z79.899 Other long term (current) drug therapy; Z79.4 Long term (current) use of insulin; Z88.8 Allergy status to other drugs, medicaments and biological substances
CPT/HCPCS: 71045; 80048; 80076; 81001; 82550; 82553; 83690; 84484; 85025; 85049; 85055; 85610; 85730; 86850; 86900; 86901; 86920; 87486; 87581; 87633; 87798; 93005; 93041; 96374; 99285; C9113; P9016; P9034

== ENCOUNTER 2020-03-24 06:35 | Inpatient (IN) | payer MEDICARE, OTHER ==
[2020-03-24] VITALS (12 sets, daily range): BP systolic 89–160; BP diastolic 42–89
[~2020-03-24] VITALS: Ht 170.2 cm; Wt 89.1 kg
[~2020-03-24 06:35] MED LIST changes: +ACYC1CAP20 PO; +FLUC200T2 PO; +PANT40TA29 PO; +PROM-188 PO; +SENN1TAB41 PO
--- NOTE | 2020-03-24 07:42 | REPVR ---
PROCEDURE INFORMATION: Exam: CT Head Without Contrast Exam date and time: 03/24/2020 7:33 AM Age: 65 years old Clinical indication: Weakness, facial; Additional info: CVA - nursing interventions must not delay CT TECHNIQUE: Imaging protocol: Computed tomography of the head without contrast. Radiation optimization: All CT scans at this facility use at least one of these dose optimization techniques: automated exposure control; mA and/or kV adjustment per patient size (includes targeted exams where dose is matched to clinical indication); or iterative reconstruction. Other technique: STROKE PROTOCOL was implemented. COMPARISON: CT Head without contrast 11/02/2015 5:15 PM FINDINGS: Brain: There is mild left subinsular hypoattenuation on coronal image 15 probably an old lacunar infarct, seen on CT of 2016. Cerebral ventricles: There is age-related cerebral atrophy with secondary ventricular dilatation. There is hypoattenuation in the inferior left basal ganglia on axial image 11 either old lacunar infarct or prominent Virchow Quentin space. Bones/joints: Unremarkable. No acute fracture. Paranasal sinuses: There is moderate mucosal thickening in the left sphenoid sinus. Mastoid air cells: Visualized mastoid air cells are well aerated. Soft tissues: Unremarkable. IMPRESSION: 1. No CT evidence of acute intracranial hemorrhage, mass effect or midline shift. 2. Small left subinsular chronic lacunar infarct and inferior left basal ganglia chronic lacunar infarct versus prominent Virchow Quentin space, seen on CT scan of 2016. 3. No large acute territorial infarct seen. 4. Left sphenoid sinus mucoperiosteal disease ASSESSMENT: ASPECTS ([place] Stroke Program Early CT Score) is 10. . Electronically signed by: Vikram Brown On 03/24/2020 07:42:39 AM
[2020-03-24 07:59] LABS: LYMPH # 0.3 10^3/uL (1.5-5.0); LYMPH % 58.1 % (24.0-44.0); MEAN CORPUSCULAR HEMOGLOBIN 28.2 pg (27.0-33.0); MEAN CORPUSCULAR HGB CONC 31.8 g/dl (32.0-36.5); MEAN CORPUSCULAR VOLUME 88.5 fl (80.0-96.0); MONO # 0.1 10^3/uL (0.0-0.8); MONO % 23.3 % (0.0-5.0); NEUTROPHILS % 18.6 % (36.0-66.0); RED BLOOD COUNT 2.27 10^6/uL (4.00-5.40)
[2020-03-24] MEDS ORDERED: TIOTROPIUM INHALER/CAPSULE (SPIRIVA) INH SCH (08:00)
[2020-03-24 08:07] LABS: HEMATOCRIT 20.1 % (36.0-47.0); WHITE BLOOD COUNT 0.4 10^3/uL (4.0-10.0)
[2020-03-24 08:08] LABS: HEMOGLOBIN 6.4 g/dl (12.0-15.5); NEUTROPHILS # 0.1 10^3/uL (1.5-8.5); PLATELET COUNT, AUTOMATED 8 10^3/uL (150-450)
[2020-03-24 08:09] LABS: INR 1.32; PROTHROMBIN TIME 16.7 SECONDS (12.5-14.3)
[2020-03-24 08:10] LABS: PARTIAL THROMBOPLASTIN TIME 56.5 SECONDS (24.2-38.5)
[2020-03-24] MEDS ORDERED: DEXTROSE 50% 50 ML SYRINGE IV STA ×2 (08:16→10:21)
--- NOTE | 2020-03-24 08:23 | REP ---
INDICATION: CVA. COMPARISON: 03/06/2020. TECHNIQUE: SINGLE PORTABLE AP VIEW OF THE CHEST WAS PERFORMED. FINDINGS: Band like density in the right lung base probably represents atelectasis. This is new when compared to the prior study. Left lung is clear. Cardiomegaly is unchanged. There is calcification and tortuosity of the thoracic aorta. Right central venous catheter is seen with tip in the superior vena cava. Left pacemaker appears unchanged. IMPRESSION: Probable subsegmental atelectasis right lung base. Left lung clear. Cardiomegaly. <Electronically signed by Jamal Lacy > 03/24/20 [id number]
[2020-03-24 08:35] LABS: BLOOD UREA NITROGEN 23 MG/DL (7-18); CALCIUM LEVEL 7.9 MG/DL (8.8-10.2); CARBON DIOXIDE LEVEL 26 MEQ/L (21-32); CHLORIDE LEVEL 109 MEQ/L (98-107); CK-MB VALUE MASS < 1.0 NG/ML (<3.6); CPK CREATINE PHOSPHOKINASE 26 U/L (26-192); CREATININE FOR GFR 1.69 MG/DL (0.55-1.30); GLOMERULAR FILTRATION RATE 32.3 (>45); GLUCOSE, FASTING 46 MG/DL (70-100); MAGNESIUM LEVEL 1.9 MG/DL (1.8-2.4); MB/CK RELATIVE INDEX 3.85 (< OR =4); POTASSIUM SERUM 3.1 MEQ/L (3.5-5.1); SODIUM LEVEL 143 MEQ/L (136-145); TROPONIN I < 0.02 NG/ML (< 0.10)
[2020-03-24 08:35] LABS: RSV AMPLIFICATION NEGATIVE (NEGATIVE)
[2020-03-24] MEDS ORDERED: POTASSIUM CHLORIDE 10 MEQ SR TABLET PO ONE (09:00)
[2020-03-24] MEDS: SENOKOT S TAB PO SCH (09:00)
[2020-03-24] MEDS ORDERED: PRAV40TA2 PO (09:46)
--- NOTE | 2020-03-24 10:20 | HPEPDOC ---
[facility] Medical History & Physical Date of Admission Mar 24, 2020 Date of Service: Mar 24, 2020 History and Physical CHIEF COMPLAINT: general malaise HISTORY OF PRESENT ILLNESS: 65 year old female with PMHx including CML/MDS, transfusion dependent, routine blood work Thursday/, recent blast crisis 03/06/20, sent to [facility], discharged with antifungal and antimicrobial therapy, presents for general malaise with estella-orbital tingling. In the ED she was found to be hypoglycemic, amp of D50 administered, with major improvement in her symptoms. Noted to be pancytopenic, and hematology was contacted, with recommendations for transfusion of PRBC, followed by platelets. She denies chest pain, shortness of breath, abdominal pain, headaches, N/V/D. PAST MEDICAL HISTORY: #CML #MDS #recent blast crisis 03/06/20 #CAD/stent #ischemic cardiomyopathy/AICD #atrophic left kidney #suspected HECTOR #asthma #DM #CKD #HLD #AOCD ALLERGIES: Please see below. REVIEW OF SYSTEMS: Negative except as per HPI. HOME MEDICATIONS: Please see below. PHYSICAL EXAMINATION: VITAL SIGNS: See below General; NAD, lying comfortably in bed HEENT: NC/AT, EOMI Lungs: CTA B/L Heart: +S1S2, RRR Abd: soft, NT, +BS Ext: lower extremity edema LABORATORY DATA: See below. MICROBIOLOGY: Please see below. A/P: 65 yo F with PMHx including CML/MDS, transfusion dependent, routine blood work Thursday/, recent blast crisis 03/06/20, sent to [facility], discharged with antifungal and antimicrobial therapy, presents for general malaise with estella-orbital tingling. In the ED she was found to be hypoglycemic, amp of D50 administered, with major improvement in her symptoms. Noted to be pancytopenic, and hematology was contacted, with recommendations for transfusion of PRBC, followed by platelets. She denies chest pain, shortness of breath, abdominal pain, headaches, N/V/D. #thrombocytopenia/anemia - heme c/s pending - contacted in ED - recs for PRBC transfusion then platelets #recent blast crisis - continue antimicrobial, antifungal therapy - levaquin, fluconazole, acyclovir, promacta #CML/MDS - as above - follow as per heme #CAD/stent #HTN - norvasc, carvedilol, isosorbide mononitrate #ischemic cardiomyopathy/AICD #atrophic left kidney #suspected HECTOR #asthma #DM - ISS #CKD #HLD - pravastatin #AOCD #DVT prophylaxis - mechanical Vital Signs Vital Signs Date Time Temp Pulse Resp B/P (MAP) Pulse Ox O2 Delivery O2 Flow Rate FiO2 03/24/20 09:37 51 18 135/63 (87) 100 03/24/20 08:07 Room Air 03/24/20 07:54 96.5 Laboratory Data Labs 24H Laboratory Tests 2 03/24/20 07:44: Immature Granulocyte % (Auto) 0.0, Neutrophils (%) (Auto) 18.6L, Lymphocytes (%) (Auto) 58.1H, Monocytes (%) (Auto) 23.3H, Eosinophils (%) (Auto) 0.0, Basophils (%) (Auto) 0.0, Neutrophils # (Auto) 0.1L, Lymphocytes # (Auto) 0.3L, Monocytes # (Auto) 0.1, Eosinophils # (Auto) 0.0, Basophils # (Auto) 0.0, Nucleated Red Blood Cells % (auto) 4.7H, Immature Platelet Fraction 2.9, Prothrombin Time 16.7H, Prothromb Time International Ratio 1.32, Activated Partial Thromboplast Time 56.5H, Anion Gap 8, Glomerular Filtration Rate 32.3L, Calcium Level 7.9L, Magnesium Level 1.9, Total Creatine Kinase 26, Creatine Kinase MB < 1.0, Creatine Kinase MB Relative Index 3.85, Troponin I < 0.02 03/24/20 07:51: Coronavirus (COVID-19)(PCR) NEGATIVE, Influenza Type A (RT-PCR) NEGATIVE, Influenza Type B (RT-PCR) NEGATIVE, Respiratory Syncytial Virus (PCR) NEGATIVE 03/24/20 07:55: POC Glucose (Misc Panel) 46L, POC Sodium (Misc Panel) 139, POC Potassium (Misc Panel) 3.1L, POC Chloride (Misc Panel) 104, POC Total CO2 (Misc Panel) 24.0, POC Blood Urea Nitrogen (Misc Panel 21, POC Ionized Calcium (Misc Panel) 4.8, POC Creatinine (Misc Panel) 2.0H, POC Hematocrit (Misc Panel) 18.0L 03/24/20 08:47: Bedside Glucose (Misc Panel) 112 CBC/BMP Laboratory Tests 03/24/20 07:44 Home Medications Scheduled Acyclovir (Acyclovir) 200 Mg Capsule, 400 MG PO TID Amlodipine Besylate (Amlodipine Besylate) 5 Mg Tablet, 5 MG PO DAILY Carvedilol (Carvedilol) 12.5 Mg Tab, 12.5 MG PO BID Cholecalciferol (Vitamin D3) (Vitamin D3) 1,000 Unit Tablet, 1,000 UNITS PO DAILY Eltrombopag Olamine (Promacta) 25 Mg Tablet, 25 MG PO DAILY Fluconazole (Fluconazole) 200 Mg Tablet, 200 MG PO DAILY Insulin Glargine,Hum.rec.anlog (Basaglar Kwikpen U-100) 100 Unit/1 Ml Insuln.pen, 30 UNIT SC QHS Insulin Human Lispro (Humalog) 100 Unit/1 Ml Vial, 1 DOSE SC TID SLIDING SCALE Isosorbide Mononitrate (Isosorbide Mononitrate ER) 60 Mg Tab, 60 MG PO DAILY Levofloxacin (Levofloxacin) 500 Mg Tablet, 500 MG PO DAILY Pantoprazole Sodium (Pantoprazole Sodium) 40 Mg Tablet.dr, 40 MG PO DAILY Pravastatin Sodium (Pravastatin Sodium) 40 Mg Tablet, 40 MG PO DAILY Prochlorperazine Maleate (Prochlorperazine Maleate) 10 Mg Tablet, 10 MG PO Q6H Sennosides/Docusate Sodium (Senna-S Tablet) 1 Each Tablet, 1 TAB PO DAILY Umeclidinium [place] (Incruse Ellipta) 62.5 Mcg Blst.w.dev, 1 PUFF INH DAILY Scheduled PRN Acetaminophen (Acetaminophen) 500 Mg Tablet, 1,000 MG PO Q6H PRN for PAIN Allergies Coded Allergies: losartan (Verified Allergy, Severe, throat swelling, 06/28/18) A-FIB/CHADSVASC A-FIB History Current/History of A-Fib/PAF?: No RADHA PRESCOTT MD Mar 24, 2020 10:20
[2020-03-24] MEDS ORDERED: ACETAMINOPHEN 500 MG TAB PO PRN (10:30)
[2020-03-24] MEDS ORDERED: GLUCAGON INJ 1MG VIAL SC PRN (10:30)
[2020-03-24] MEDS ORDERED: GLUCOSE 4GM CHEW TABLET PO PRN (10:30)
[2020-03-24] MEDS ORDERED: DEXTROSE 50% 50 ML SYRINGE IV PRN (10:30)
[2020-03-24] MEDS: HumaLOG INSULIN (NovoLOG) PER UNIT SC SCH ×2 (12:00→17:13)
--- NOTE | 2020-03-24 12:45 | ECGEPIP ---
[facility] - ED Test Date: 2020-03-24 Pat Name: PATRICIA PARKS Department: Room: - Gender: Female Contact Assembler: : 1955 Requested By: Favio Fernandez Order Number: [id number] Reading MD: Vielka Duenas Measurements Intervals [place] Rate: 45 P: 9 TN: 126 QRS: 23 QRSD: 142 T: -22 QT: 598 QTc: 517 Interpretive Statements Sinus bradycardia Right bundle branch block NONSPECIFIC ST T WAVE CHANGES CW 03/06/[address] T WAVE CHANGES TODAY Electronically Signed on 03-24-2020 12:45:10 EST by Vielka Duenas
[2020-03-24] MEDS: LevoFLOXacin 250 MG TABLET PO SCH (13:00)
[2020-03-24] MEDS: PRAVASTATIN 20 MG TAB PO SCH (14:18)
[2020-03-24] MEDS: FLUCONAZOLE 100 MG TAB PO SCH (14:18)
[2020-03-24] MEDS: PANTOPRAZOLE 40MG TAB (PROTONIX) PO SCH (14:19)
[2020-03-24] MEDS: amLODIPine 5 MG TAB PO SCH (14:19)
[2020-03-24] MEDS: ISOSORBIDE MON. (IMDUR) 60 MG XR TAB PO SCH (14:19)
[2020-03-24] MEDS: PROCHLORPERAZINE 5 MG TAB (S0183) PO SCH ×3 (14:19→23:10)
[2020-03-24] MEDS: CARVedilol 12.5 MG TAB PO SCH ×2 (14:19→21:00)
[2020-03-24] MEDS: ALBUTEROL SULFATE 2.5 MG/0.5 ML INH NEB SOLN NEB PRN (14:29)
[2020-03-24] MEDS: TIOTROPIUM INHALER/CAPSULE (SPIRIVA) INH SCH (14:29)
[2020-03-24] MEDS ORDERED: FUROSEMIDE 20MG/2ML VIAL (J1940) IV ONE ×2 (16:00→19:00)
[2020-03-24] MEDS: ACYCLOVIR 200 MG CAPSULE PO SCH ×2 (17:11→21:15)
[2020-03-24] MEDS ORDERED: FUROSEMIDE 20 MG TAB PO ONE (20:30)
--- NOTE | 2020-03-24 20:45 | IPNPDOC ---
Text Note Date of Service The patient was seen on 03/24/20. NOTE While working nights with the hospitalist service, I was called to the floor to help Mrs. Cotton documented her advanced directives. We reviewed the entirety of the [facility] Medical Orders for Life-Sustaining Treatment (MOLST) form and together completed in its entirety. This was witnessed by the floor nurse, Prisca Ruiz RN. The form was appropriately signed and placed on her chart. A DNR order was entered per her decision. In all this process took about 30 minutes. VS,Fishbone, I+O VS, Fishbone, I+O Laboratory Tests 03/24/20 07:44 Vital Signs Date Time Temp Pulse Resp B/P (MAP) Pulse Ox O2 Delivery O2 Flow Rate FiO2 03/24/20 19:55 99.8 81 18 89/45 96 Room Air Kenn Mayfield MD Mar 24, 2020 20:45
[2020-03-24 21:00] LABS: HEMATOCRIT 25.9 % (36.0-47.0); HEMOGLOBIN 8.6 g/dl (12.0-15.5); MEAN CORPUSCULAR HEMOGLOBIN 28.4 pg (27.0-33.0); MEAN CORPUSCULAR HGB CONC 33.2 g/dl (32.0-36.5); MEAN CORPUSCULAR VOLUME 85.5 fl (80.0-96.0); RED BLOOD COUNT 3.03 10^6/uL (4.00-5.40); WHITE BLOOD COUNT 0.8 10^3/uL (4.0-10.0)
[2020-03-24] MEDS ORDERED: HumaLOG INSULIN (NovoLOG) PER UNIT SC SCH (21:00)
[2020-03-24 21:01] LABS: PLATELET COUNT, AUTOMATED 21 10^3/uL (150-450)
[2020-03-25] MEDS: PROCHLORPERAZINE 5 MG TAB (S0183) PO SCH ×2 (05:07→12:49)
[2020-03-25 06:00] VITALS: BP 120/44
[2020-03-25] MEDS: LevoFLOXacin 250 MG TABLET PO SCH (06:27)
[2020-03-25 06:47] LABS: HEMATOCRIT 24.3 % (36.0-47.0); HEMOGLOBIN 8.1 g/dl (12.0-15.5); LYMPH # 0.4 10^3/uL (1.5-5.0); LYMPH % 58.1 % (24.0-44.0); MEAN CORPUSCULAR HEMOGLOBIN 28.4 pg (27.0-33.0); MEAN CORPUSCULAR HGB CONC 33.3 g/dl (32.0-36.5); MEAN CORPUSCULAR VOLUME 85.3 fl (80.0-96.0); MONO # 0.2 10^3/uL (0.0-0.8); MONO % 27.4 % (0.0-5.0); NEUTROPHILS % 11.3 % (36.0-66.0); RED BLOOD COUNT 2.85 10^6/uL (4.00-5.40)
[2020-03-25 07:05] LABS: PLATELET COUNT, AUTOMATED 26 10^3/uL (150-450); WHITE BLOOD COUNT 0.6 10^3/uL (4.0-10.0)
[2020-03-25 07:06] LABS: NEUTROPHILS # 0.1 10^3/uL (1.5-8.5)
[2020-03-25] MEDS: HumaLOG INSULIN (NovoLOG) PER UNIT SC SCH ×2 (07:30→11:56)
[2020-03-25] MEDS: TIOTROPIUM INHALER/CAPSULE (SPIRIVA) INH SCH (07:32)
[2020-03-25 07:33] LABS: ALBUMIN 1.9 GM/DL (3.2-5.2); BILIRUBIN,TOTAL 0.8 MG/DL (0.2-1.0); CREATININE FOR GFR 1.82 MG/DL (0.55-1.30); GLOMERULAR FILTRATION RATE 29.7 (>45); POTASSIUM SERUM 3.6 MEQ/L (3.5-5.1); TOTAL PROTEIN 4.9 GM/DL (6.4-8.2)
[2020-03-25] MEDS: PANTOPRAZOLE 40MG TAB (PROTONIX) PO SCH (08:45)
[2020-03-25] MEDS: CARVedilol 12.5 MG TAB PO SCH (08:46)
[2020-03-25 08:47] VITALS: BP 140/56
[2020-03-25] MEDS: amLODIPine 5 MG TAB PO SCH (08:47)
[2020-03-25] MEDS: SENOKOT S TAB PO SCH (08:47)
[2020-03-25] MEDS: ISOSORBIDE MON. (IMDUR) 60 MG XR TAB PO SCH (08:47)
[2020-03-25] MEDS: PRAVASTATIN 20 MG TAB PO SCH (08:47)
[2020-03-25] MEDS: FLUCONAZOLE 100 MG TAB PO SCH (08:48)
[2020-03-25] MEDS: ACYCLOVIR 200 MG CAPSULE PO SCH (08:48)
[2020-03-25] MEDS ORDERED: VITAMIN D 1,000 INTERNATIONAL UNITS TABLET PO SCH (09:00)
[2020-03-25] MEDS: ALBUTEROL SULFATE 2.5 MG/0.5 ML INH NEB SOLN NEB PRN (11:00)
--- NOTE | 2020-03-25 13:09 | DS.PDOC ---
Discharge Summary General Date of Admission Mar 24, 2020 at 10:25 Date of Discharge 03/25/20 Discharge Summary PROCEDURES PERFORMED DURING STAY: [None]. ADMITTING DIAGNOSES: #pancytopenia - CML/MDS SECONDARY DIAGNOSES: #CML #MDS #recent blast crisis 03/06/20 #CAD/stent #ischemic cardiomyopathy/AICD #atrophic left kidney #suspected HECTOR #asthma #DM #CKD #HLD #AOCD COMPLICATIONS/CHIEF COMPLAINT: Anemia, Thrombocytopenia. HISTORY OF PRESENT ILLNESS: 65 year old female with PMHx including CML/MDS, transfusion dependent, routine blood work Thursday/, recent blast crisis 03/06/20, sent to [facility], discharged with antifungal and antimicrobial therapy, presents for general malaise with estella-orbital tingling. In the ED she was found to be hypoglycemic, amp of D50 administered, with major improvement in her symptoms. Noted to be pancytopenic, and hematology was contacted, with recommendations for transfusion of PRBC, followed by platelets. She denies chest pain, shortness of breath, abdominal pain, headaches, N/V/D. Patient was admitted for further evaluation and treatment and treatment with transfusion of packed red blood cells and platelets. Hematology consulted for further assistance. Her platelets and hemoglobin improved. She was given IV Lasix for fluid management. Discussed with hematology with recommendations for outpatient follow-up. She does have an appointment tomorrow with her soccer referee. DISCHARGE MEDICATIONS: Please see below. ALLERGIES: Please see below. PHYSICAL EXAMINATION ON DISCHARGE: VITAL SIGNS: See below General; NAD, lying comfortably in bed HEENT: NC/AT, EOMI Lungs: CTA B/L Heart: +S1S2, RRR Abd: soft, NT, +BS Ext: lower extremity edema LABORATORY DATA: Please see below. ACTIVITY: [As tolerated]. DISCHARGE INSTRUCTIONS: 1. PCP in 3-5 days 2. Heme/onc as scheduled 03/26/20 DISCHARGE CONDITION: [Stable]. TIME SPENT ON DISCHARGE: 35 minutes. Vital Signs/I&Os Vital Signs Date Time Temp Pulse Resp B/P (MAP) Pulse Ox O2 Delivery O2 Flow Rate FiO2 03/25/20 08:47 140/56 03/25/20 08:47 60 03/25/20 06:00 98.0 18 91 Room Air I&O- Last 24 Hours up to 6 AM 03/25/20 06:00 Intake Total 1840 ml Output Total 1200 ml Balance 640 ml Laboratory Data Labs 24H Laboratory Tests 2 03/24/20 16:37: Bedside Glucose (Misc Panel) 96 03/24/20 20:25: Nucleated Red Blood Cells % (auto) 6.5H 03/24/20 20:30: Bedside Glucose (Misc Panel) 68L 03/25/20 06:20: Nucleated Red Blood Cells % (auto) 4.8H, Immature Granulocyte % (Auto) 3.2H, Neutrophils (%) (Auto) 11.3L, Lymphocytes (%) (Auto) 58.1H, Monocytes (%) (Auto) 27.4H, Eosinophils (%) (Auto) 0.0, Basophils (%) (Auto) 0.0, Neutrophils # (Auto) 0.1L, Lymphocytes # (Auto) 0.4L, Monocytes # (Auto) 0.2, Eosinophils # (Auto) 0.0, Basophils # (Auto) 0.0, Anion Gap 8, Glomerular Filtration Rate 2 9.7L, Calcium Level 8.0L, Magnesium Level 2.0, Total Bilirubin 0.8, Aspartate Amino Transf (AST/SGOT) 10, Alanine Aminotransferase (ALT/SGPT) 7L, Alkaline Phosphatase 99, Total Protein 4.9L, Albumin 1.9L, Albumin/Globulin Ratio 0.6L 03/25/20 08:44: Bedside Glucose (Misc Panel) 76L 03/25/20 11:48: Bedside Glucose (Misc Panel) 81 CBC/BMP Laboratory Tests 03/24/20 20:25 03/25/20 06:20 FSBS Laboratory Tests Test 03/24/20 16:37 03/24/20 20:30 03/25/20 08:44 03/25/20 11:48 Range/Units Bedside Glucose (Misc Panel) 96 68 76 81 80-115 MG/DL Discharge Medications Scheduled Acyclovir (Acyclovir) 200 Mg Capsule, 400 MG PO TID, (Reported) Amlodipine Besylate (Amlodipine Besylate) 5 Mg Tablet, 5 MG PO DAILY, (Reported) Carvedilol (Carvedilol) 12.5 Mg Tab, 12.5 MG PO BID, (Reported) Cholecalciferol (Vitamin D3) (Vitamin D3) 1,000 Unit Tablet, 1,000 UNITS PO DAILY, (Reported) Eltrombopag Olamine (Promacta) 25 Mg Tablet, 25 MG PO DAILY, (Reported) Fluconazole (Fluconazole) 200 Mg Tablet, 200 MG PO DAILY, (Reported) Insulin Glargine,Hum.rec.anlog (Basaglar Kwikpen U-100) 100 Unit/1 Ml Insuln.pen, 30 UNIT SC QHS, (Reported) Insulin Human Lispro (Humalog) 100 Unit/1 Ml Vial, 1 DOSE SC TID, (Reported) SLIDING SCALE Isosorbide Mononitrate (Isosorbide Mononitrate ER) 60 Mg Tab, 60 MG PO DAILY, (Reported) Levofloxacin (Levofloxacin) 500 Mg Tablet, 500 MG PO DAILY, (Reported) Pantoprazole Sodium (Pantoprazole Sodium) 40 Mg Tablet.dr, 40 MG PO DAILY, (Reported) Pravastatin Sodium (Pravastatin Sodium) 40 Mg Tablet, 40 MG PO DAILY, (Reported) Prochlorperazine Maleate (Prochlorperazine Maleate) 10 Mg Tablet, 10 MG PO Q6H Sennosides/Docusate Sodium (Senna-S Tablet) 1 Each Tablet, 1 TAB PO DAILY, (Reported) Umeclidinium [place] (Incruse Ellipta) 62.5 Mcg Blst.w.dev, 1 PUFF INH DAILY, (Reported) Scheduled PRN Acetaminophen (Acetaminophen) 500 Mg Tablet, 1,000 MG PO Q6H PRN for PAIN, (Reported) Allergies Coded Allergies: losartan (Verified Allergy, Severe, throat swelling, 06/28/18) RADHA PRESCOTT MD Mar 25, 2020 13:09
== END 2020-03-25 13:55 | disposition home or self-care (01) | DRG 812 ==
LOC: M ED 06:35 → M ED INP 10:25 → M MS5PR 13:05
PROVIDERS: ADMIT Internal Medicine; ATTEND Internal Medicine
PROC: 30233N1 Transfusion of Nonautologous Red Blood Cells into Peripheral Vein, Percutaneous Approach (ICD-10-PCS; principal; 2020-03-24)
PROC: 30233R1 Transfusion of Nonautologous Platelets into Peripheral Vein, Percutaneous Approach (ICD-10-PCS; 2020-03-24)
DX: D46.9 Myelodysplastic syndrome, unspecified (principal); C92.90 Myeloid leukemia, unspecified, not having achieved remission; D61.818 Other pancytopenia; E11.649 Type 2 diabetes mellitus with hypoglycemia without coma; I25.10 Atherosclerotic heart disease of native coronary artery without angina pectoris; I25.5 Ischemic cardiomyopathy; G47.33 Obstructive sleep apnea (adult) (pediatric); J45.909 Unspecified asthma, uncomplicated; N18.9 Chronic kidney disease, unspecified; Z66 Do not resuscitate; E11.22 Type 2 diabetes mellitus with diabetic chronic kidney disease; E78.5 Hyperlipidemia, unspecified; N26.1 Atrophy of kidney (terminal); Z20.822 Contact with and (suspected) exposure to COVID-19; Z79.4 Long term (current) use of insulin; Z79.899 Other long term (current) drug therapy; Z88.8 Allergy status to other drugs, medicaments and biological substances; D63.8 Anemia in other chronic diseases classified elsewhere

== ENCOUNTER 2020-03-30 09:46 | Outpatient (CLI) | payer MEDICARE, OTHER ==
[~2020-03-30] VITALS: Ht 165.1 cm; Wt 90.0 kg
[~2020-03-30 09:46] MED LIST changes: +ACETAMINOPHEN TAB 650MG DOSE (2X325MG) PO SCH; +SODIUM CHLORIDE 0.9% INJ 10 ML SYR IV PRN; +SODIUM CHLORIDE 0.9% INJ 10 ML SYR IV SCH; +diphenhydrAMINE 25MG CAP PO SCH
[2020-03-30 09:58] VITALS: BP 97/52
[2020-03-30 10:10] VITALS: BP 97/52
[2020-03-30 10:30] VITALS: BP 92/47
[2020-03-30] MEDS ORDERED: FUROSEMIDE 20MG/2ML VIAL (J1940) IV ONE (11:00)
[2020-03-30 11:49] VITALS: BP 100/54
== END 2020-03-30 14:10 | disposition home or self-care (01) ==
LOC: M INFU 09:46
PROVIDERS: ATTEND Internal Medicine Medical Oncology
DX: D46.9 Myelodysplastic syndrome, unspecified (principal); Z88.8 Allergy status to other drugs, medicaments and biological substances
CPT/HCPCS: 36430; J1642; P9016

== ENCOUNTER 2020-04-04 11:04 | Outpatient (CLI) | payer MEDICARE, OTHER ==
[~2020-04-04] VITALS: Ht 165.1 cm; Wt 90.0 kg
[~2020-04-04 11:04] MED LIST changes: -ACETAMINOPHEN TAB 650MG DOSE (2X325MG) PO SCH; -SODIUM CHLORIDE 0.9% INJ 10 ML SYR IV PRN; -SODIUM CHLORIDE 0.9% INJ 10 ML SYR IV SCH; -diphenhydrAMINE 25MG CAP PO SCH
[2020-04-04 11:25] VITALS: BP 128/76
[2020-04-04] MEDS ORDERED: diphenhydrAMINE 25MG CAP PO ONE (11:30)
[2020-04-04] MEDS ORDERED: ACETAMINOPHEN TAB 650MG DOSE (2X325MG) PO ONE (11:30)
[2020-04-04] MEDS ORDERED: SODIUM CHLORIDE 0.9% INJ 10 ML SYR IV PRN (11:30)
[2020-04-04 12:30] VITALS: BP 100/49
[2020-04-04] MEDS ORDERED: FUROSEMIDE 20MG/2ML VIAL (J1940) IV ONE (13:00)
[2020-04-04 14:10] VITALS: BP 128/59
[2020-04-04 14:59] VITALS: BP 123/59
[2020-04-04 16:30] VITALS: BP 168/73
[2020-04-04 16:45] VITALS: BP 132/62
[2020-04-05] MEDS ORDERED: SODIUM CHLORIDE 0.9% INJ 10 ML SYR IV SCH (09:00)
[2020-04-09] MEDS ORDERED: CEPH500C PO (09:37)
== END 2020-04-04 16:45 | disposition home or self-care (01) ==
LOC: M INFU 11:04
PROVIDERS: ATTEND Internal Medicine Medical Oncology
DX: D46.9 Myelodysplastic syndrome, unspecified (principal); Z88.8 Allergy status to other drugs, medicaments and biological substances
CPT/HCPCS: 36430; 36591; 85025; 85049; 85055; 86850; 86900; 86901; 86920; 96372; 96374; J0885; J1642; J1940; P9016; P9034

== ENCOUNTER → 2020-04-09 08:06 | Outpatient (RCR) | payer MEDICARE, OTHER ==
[2019-04-11 14:45] VITALS: BP 93/50
[2019-04-11 16:08] LABS: BASO # 0.3 10^3/uL (0.0-0.2); EOS % 0.1 % (0.0-3.0); HEMOGLOBIN 7.9 g/dl (12.0-15.5); LYMPH % 16.2 % (24.0-44.0); MEAN CORPUSCULAR HEMOGLOBIN 27.1 pg (27.0-33.0); MEAN CORPUSCULAR HGB CONC 30.4 g/dl (32.0-36.5); MEAN CORPUSCULAR VOLUME 89.3 fl (80.0-96.0); MONO % 23.8 % (0.0-5.0); NEUTROPHILS # 12.1 10^3/uL (1.5-8.5); NEUTROPHILS % 42.9 % (36.0-66.0); RED BLOOD COUNT 2.91 10^6/uL (4.00-5.40); WHITE BLOOD COUNT 28.3 10^3/uL (4.0-10.0)
[2019-04-11 16:10] LABS: LYMPH # 4.6 10^3/uL (1.5-5.0); MONO # 6.7 10^3/uL (0.0-0.8); PLATELET COUNT, AUTOMATED 31 10^3/uL (150-450)
[2019-04-11 16:42] LABS: ALBUMIN 3.3 GM/DL (3.2-5.2); BILIRUBIN,TOTAL 0.8 MG/DL (0.2-1.0); CALCIUM LEVEL 9.4 MG/DL (8.8-10.2); CREATININE FOR GFR 3.17 MG/DL (0.55-1.30); GLOMERULAR FILTRATION RATE 15.7 (>45); POTASSIUM SERUM 4.5 MEQ/L (3.5-5.1); TOTAL PROTEIN 7.2 GM/DL (6.4-8.2)
[2019-04-18 09:46] VITALS: BP 103/61
[2019-04-18 11:30] LABS: BASO # 0.2 10^3/uL (0.0-0.2); BASO % 0.9 % (0.0-1.0); EOS # 0.1 10^3/uL (0.0-0.5); EOS % 0.3 % (0.0-3.0); HEMATOCRIT 23.9 % (36.0-47.0); LYMPH % 8.6 % (24.0-44.0); MEAN CORPUSCULAR HEMOGLOBIN 26.9 pg (27.0-33.0); MEAN CORPUSCULAR HGB CONC 29.3 g/dl (32.0-36.5); MEAN CORPUSCULAR VOLUME 91.9 fl (80.0-96.0); MONO % 20.9 % (0.0-5.0); NEUTROPHILS # 11.6 10^3/uL (1.5-8.5); NEUTROPHILS % 49.8 % (36.0-66.0); WHITE BLOOD COUNT 23.4 10^3/uL (4.0-10.0)
[2019-04-18 11:35] LABS: MONO # 4.9 10^3/uL (0.0-0.8); PLATELET COUNT, AUTOMATED 30 10^3/uL (150-450)
[2019-04-18 11:47] LABS: INR 1.34; PROTHROMBIN TIME 16.3 SECONDS (11.8-14.0)
[2019-04-18 11:57] LABS: ALBUMIN 2.9 GM/DL (3.2-5.2); BILIRUBIN,TOTAL 0.7 MG/DL (0.2-1.0); CALCIUM LEVEL 9.6 MG/DL (8.8-10.2); CREATININE FOR GFR 2.06 MG/DL (0.55-1.30); GLOMERULAR FILTRATION RATE 25.8 (>45); PERCENT SATURATION 14.6 % (13.2-45.0); POTASSIUM SERUM 4.3 MEQ/L (3.5-5.1); TOTAL PROTEIN 7.2 GM/DL (6.4-8.2)
--- NOTE | 2019-04-19 06:53 | MEDONC ---
DATE OF SERVICE: 04/11/2019 REASON FOR VISIT: CMML. HISTORY OF PRESENTING ILLNESS: Farida is a 64-year-old who was admitted 04/03/2019 to [facility] with a one week history of history of shortness of breath and increasing fatigue. On arrival, she was found to have leukocytosis of 23, hemoglobin 7.4, platelets 49, neutrophils 39, 11.6 nucleated RBCs, 1 metamyelocyte, 9 myelocytes, 2 promyelocytes. CRX on arrival was suspicious for LLL consolidation. Patient was started on empiric antibiotics. Clinically, however, she did not have a productive cough. No fevers or chills. 04/04/2019 CT chest WC - no mediastinal or pleuroparenchymal process. Antibiotics were discontinued. She received a unit of packed RBC transfusion. Smear review by pathology revealed nucleated red cells and metamyelocytes as well as blast forms. At this stage, consideration was for acute leukemia pending flow cytometry results. The transfer process to a tertiary care center was initiated. Upon obtaining peripheral blood flow cytometry which revealed no evidence of non Hodgkin's lymphoma or acute leukemia with findings suspicious for myeloid neoplasm/dysplastic process, hematology offered a bone marrow biopsy. By that time, however, the patient family and the internal medicine team had arranged for a transfer, accepted by the team at [facility] and the patient was transferred to [facility]. While at there, she had a bone marrow biopsy on 04/06/2019 C/W MDS/myeloproliferative neoplasm with mildly increased bone marrow blasts (5% by CD34 IHC) - favor CMML-1, FISH pending, BCR-ABL pending. She was discharged on 04/07/2019. She now returns locally for followup. Symptomwise, she denies any current shortness of breath or other cardiopulmonary symptoms. She describes diffuse back pain over the past 3 weeks, 6/10 at its worst, 0/10 at its best. She takes 2-3 tablets of Tylenol. She states she stopped aspirin and Plavix given her thrombocytopenia. Otherwise, she at baseline is independent of her ADLs and IDLs. Currently comes to the office in a wheelchair. States her legs feel a little weak since her admission and she only needed it from the car to the office, but is getting stronger since her discharge. She denies any other sites of pain or bleeding. She has a good appetite and sleep. Denies any weight loss. Denies any other complaints. REVIEW OF SYSTEMS: CONSTITUTIONAL: No fevers, chills, night sweats, fatigue, malaise, or weight loss. CARDIOPULMONARY: No chest pain, palpitations, dizziness. No cough. No hemoptysis. GASTROINTESTINAL: No pain, nausea, vomiting, constipation or diarrhea. No hematemesis, melena or hematochezia. GENITOURINARY: No dysuria, hematuria, incontinence, frequency or urgency. MUSCULOSKELETAL: No bony, muscle, or joint aches or pains. CLINICAL ORTHOPTIST: No tingling, weakness, numbness. No headaches, dizziness, seizures, speech or visual disturbances. All other systems are negative unless otherwise specified in HPI. PAST MEDICAL/SURGICAL HISTORY: Ischemic cardiomyopathy. CAD S/P stent. CKD stage IV. Atrophic left kidney. Prior history of polycythemia. Was apparently referred to pulmonology for HECTOR evaluation but states she was not ready to make that appointment. Asthma. Obesity. Type 2 diabetes. CHF. Hypercholesterolemia. Pacemaker with defibrillator placement December 2017. MEDICATIONS: Reviewed in EMR and reconciled. ALLERGIES: LOSARTAN - throat swelling. SOCIAL HISTORY: Smoking - 10 cigarettes a day since the age of 14. Quit in 2013, but commenced smoking again February 2019 about 10 cigarettes a day. Alcohol - Denies history of alcohol or recreational drug use. FAMILY HISTORY: Mother - had history throat, thyroid and uterine cancers. Sister had diabetes and Lupus. Three brothers have CAD. No other history of malignancies or dyscrasias per patient. VITAL SIGNS: Reviewed in EMR - stable. PHYSICAL EXAM: HEENT: Oral mucosa - pink and moist, no conjunctival pallor, sclera anicteric bilaterally. LYMPHATICS: No cervical, supraclavicular, axillary or inguinal LAD. LUNGS: Clear to auscultation bilaterally, resonant to percussion bilaterally. HEART: Regular rhythm, no murmurs, no S3, S4, no rubs. ABDOMEN: Soft, nontender, bowel sounds normoactive, no hepatosplenomegaly. EXTREMITIES: No edema bilaterally. Calves, nontender bilaterally. SKIN/NAILS: No nail changes. Mild scattered bruising bilateral forearms 1-2 cm. MUSCULOSKELETAL: Spine nontender to palpation. INVESTIGATIONS: Reviewed in the EMR. ASSESSMENT/PLAN: 1. 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 Gave patient an overview of CMML which has features of both myeloproliferative and a myelodysplastic syndrome. Clinical manifestations and signs and symptoms of anemia and thrombocytopenia discussed with patient. Obtain full pathology report including flow cytometry, cytogenics and FISH from [facility]. Gave patient overview of Dacogen - risks and benefits discussed. The patient does have chronic kidney disease. Reports that dialysis was discussed with her and she was due for an AV graft. I will discuss this with her senior peoplesoft developer as we intend to start Dacogen as soon as possible and I will research any timing issues for administration should the patient go on dialysis. Will plan for packed RBC transfusion as needed. Currently she denies any cardiopulmonary symptoms. Hemoglobin stable at 7.9, platelets 31, without bleeding, WBC stable at 28.3. 2. Folate deficiency. 5.2 on 04/04/2019. Discussed with patient to commence folic acid 1 mg p.o. q. day. 3. CMV IgG positive per notes from [facility] - obtain IgM results and DNA by PCR which are pending. Reports requested. 4. Three week history of diffuse back pain. Given recent acuity, discussed with patient and she was agreeable to an MRI (without contrast, GFR less than 30) of the spine, believes her pacemaker is compatible. She will also discuss this with her PCP and rails developer. If there are any issues, we will need to switch to a CT. FOLLOW UP 1 week with above reports. All of the above was relayed to the patient who was given on option to ask questions that were answered to her satisfaction. She voiced an understanding and agreed to proceed. (addendum: Was subsequently notified by radiology that pacemaker was not compatible, patient also has eye implant - details unknown, changed to CT of cervical, thoracic and lumbosacral spine.) Electronically Signed by Jd Platt MD 04/19/2019 04:12 P DD: Jd Platt MD 04/18/2019 05:21 P DT: baylee 04/19/2019 06:04 A CC:
--- NOTE | 2019-04-20 08:24 | MEDONC ---
DATE OF SERVICE: 04/18/2019 REASON FOR VISIT: CMML. DIAGNOSIS AND TREATMENT HISTORY: 03/20/2019 - Leukoerythroblastic anemia 7-range, thrombocytopenia 40s range, WBC in the 20s range with left shift and nucleated RBCs, scattered circulating blasts. Peripheral blood flow cytometry - no acute leukemia non-Hodgkin lymphoma. 04/03/2019 - BM Bx MDS/MPD at [facility]- Mild increased bone marrow blasts (5% by CD34 IHC), favor CMML - 1. FISH - negative t(9;22) BCR/ABL-1, gene rearrangement - no evidence of CML. Karyotype - mononucleosis 75 and 7, FISH +deletion 17p supporting above diagnosis, at [facility]. INTERVAL HISTORY: Patient presents in followup today. I had previously discussed with her refund specialist. The patient may head to dialysis in the next few months but this is not imminent. An AV graft will be planned in due course, no issue with commencing chemotherapy. Patient states she is feeling stronger since her recent discharge from hospitalization, currently no cardiopulmonary symptoms. Has mild tiredness but denies any debilitating fatigue. Does not feel like she requires a transfusion today. Still has back pain. Sought a CT spine awaited, controlled with Tylenol. Has a good appetite and sleep. Denies any weight loss. No bleeding at any site. Denies any other complaints. REVIEW OF SYSTEMS: CONSTITUTIONAL: No fevers, chills, night sweats, fatigue, malaise, or weight loss. CARDIOPULMONARY: No chest pain, palpitations, dizziness. No cough. No hemoptysis. GASTROINTESTINAL: No pain, nausea, vomiting, constipation or diarrhea. No hematemesis, melena or hematochezia. GENITOURINARY: No dysuria, hematuria, incontinence, frequency or urgency. MUSCULOSKELETAL: No bony, muscle, or joint aches or pains. LAST TURNER: No tingling, weakness, numbness. No headaches, dizziness, seizures, speech or visual disturbances. All other systems are negative unless otherwise specified in HPI. PAST MEDICAL/SURGICAL HISTORY: Ischemic cardiomyopathy. CAD S/P stent. CKD stage IV. Atrophic left kidney. Prior history of polycythemia. Was apparently referred to pulmonology for HECTOR evaluation but states she was not ready to make that appointment. Asthma. Obesity. Type 2 diabetes. CHF. Hypercholesterolemia. Pacemaker with defibrillator placement December 2017. MEDICATIONS: Reviewed in EMR and reconciled. ALLERGIES: LOSARTAN - throat swelling. VITAL SIGNS: Reviewed in EMR - stable. PHYSICAL EXAM: HEENT: Oral mucosa - pink and moist, no conjunctival pallor, sclera anicteric bilaterally. LYMPHATICS: Per prior exam - no cervical, supraclavicular, axillary or inguinal LAD. LUNGS: Clear to auscultation bilaterally, resonant to percussion bilaterally. HEART: Regular rhythm, no murmurs, no S3, S4, no rubs. ABDOMEN: Soft, nontender, bowel sounds normoactive, no hepatosplenomegaly. EXTREMITIES: Mild pitting right more than left lower extremity edema with bilateral calf tenderness, right more than left - new per patient. SKIN/NAILS: No nail changes. Mild scattered bruising bilateral forearms 1-2 cm. MUSCULOSKELETAL: Spine nontender to palpation. INVESTIGATIONS: Reviewed in the EMR. ASSESSMENT/PLAN: 1. 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 Following review of the bone marrow biopsy performed at [facility], we discussed Dacogen with patient. Re-requested Next Gen Sequencing results. She does have baseline kidney dysfunction but there are no dose adjustments provided in the environmental law professor labeling, her baseline creatinine is > 2 mg/dL. Recommendations in up-to-date are to withhold treatment if patient develops renal toxicity during treatment, which is not her case. We discussed Dacogen. She has discussed this with her family and consents to proceed. Currently, hemoglobin 7, platelets 30. WBC is stable - has no cardiopulmonary symptoms. Feels she does not require transfusion today. Will check CBC weekly for the next 4 weeks to determine transfusion needs. Update CMP and B12. 2. Anemia - multifactorial - 2/2 CMML and component secondary to CKD. AV fistula planned in the future. 04/18/2019 - ferritin 745, serum iron 44. Will plan for Aranesp therapy for CKD. 3. Folate deficiency- 5.2 on 04/04/2019. Continue folic acid 1 mg p.o. q. day. 4. CMV IgG positive per notes from [facility] - obtain IgM results and DNA by PCR which are pending. Re- requested today. 5. Three week history of diffuse back pain. MRI spine was changed to CT due to pacemaker. Awaiting completion. 6. Bilateral mild calf tenderness right more than left. Obtain stat ultrasound - evaluate for DVT, though with platelets< 50k, anticoagulation would be prohibited. Await results for further decision. ADDENDUM: At the time of this dictation, B/L lower extremity venous Doppler US - no DVT. FOLLOWUP: 04/29/2019 - toxicity assessment, status check and to evaluate transfusion needs. All of the above was relayed to the patient who was given on option to ask questions that were answered to her satisfaction. She voiced an understanding and agreed to proceed. Electronically Signed by Jd Platt MD 04/21/2019 06:00 P DD: Jd Platt MD 04/18/2019 07:21 P DT: beata 04/20/2019 07:54 A CC: Mounika Packer CRISIS COUNSELOR
[2019-05-03 10:43] VITALS: BP 101/49
[2019-05-03 10:48] LABS: BASO # 0.2 10^3/uL (0.0-0.2); BASO % 0.6 % (0.0-1.0); EOS # 0.1 10^3/uL (0.0-0.5); EOS % 0.3 % (0.0-3.0); LYMPH % 18.5 % (24.0-44.0); MEAN CORPUSCULAR HEMOGLOBIN 25.1 pg (27.0-33.0); MEAN CORPUSCULAR HGB CONC 28.6 g/dl (32.0-36.5); MEAN CORPUSCULAR VOLUME 87.9 fl (80.0-96.0); MONO % 15.5 % (0.0-5.0); NEUTROPHILS # 13.4 10^3/uL (1.5-8.5); NEUTROPHILS % 48.4 % (36.0-66.0); RED BLOOD COUNT 2.31 10^6/uL (4.00-5.40)
[2019-05-03 11:07] LABS: HEMATOCRIT 20.3 % (36.0-47.0); LYMPH # 5.1 10^3/uL (1.5-5.0); MONO # 4.3 10^3/uL (0.0-0.8); PLATELET COUNT, AUTOMATED 24 10^3/uL (150-450); WHITE BLOOD COUNT 27.6 10^3/uL (4.0-10.0)
[2019-05-03 11:08] LABS: HEMOGLOBIN 5.8 g/dl (12.0-15.5)
--- NOTE | 2019-05-05 16:36 | MEDONC ---
DATE OF SERVICE: 05/03/2019 REASON FOR VISIT: CMML. DIAGNOSIS AND TREATMENT HISTORY: 03/20/2019 - Leukoerythroblastic anemia- Hgb 7-range, thrombocytopenia 40s range, WBC in the 20s range with left shift and nucleated RBCs, scattered circulating blasts. Peripheral blood flow cytometry - no acute leukemia, no NHL. - 04/03/2019 - BM Bx MDS/MPD at [facility]- Mild increased bone marrow blasts (5% by CD34 IHC), favor CMML - 1. FISH - negative t(9;22) BCR/ABL-1 gene rearrangement - no evidence of CML. Karyotype - mononucleosis 75 and 7, FISH: +deletion 17p supporting above diagnosis, at [facility]. INTERVAL HISTORY: Patient presents in followup today. She was to have started her decitabine last week but tells me she did not. Today she reports that she no longer has any back pain since her last visit. Does not require any further Tylenol. Has a good appetite and sleep. Denies any weight loss. No pain or bleeding at any site. Despite a hemoglobin of 5.8 today, she denies any cardiopulmonary symptoms - see ROS. Does have tiredness but denies any debilitating fatigue. REVIEW OF SYSTEMS: CONSTITUTIONAL: No fevers, chills, night sweats, fatigue, malaise, or weight loss. CARDIOPULMONARY: No chest pain, palpitations, dizziness. No cough. No hemoptysis. GASTROINTESTINAL: No pain, nausea, vomiting, constipation or diarrhea. No hematemesis, melena or hematochezia. GENITOURINARY: No dysuria, hematuria, incontinence, frequency or urgency. MUSCULOSKELETAL: No bony, muscle, or joint aches or pains. AQUATIC FACILITY MANAGER: No tingling, weakness, numbness. No headaches, dizziness, seizures, speech or visual disturbances. All other systems are negative unless otherwise specified in HPI. PAST MEDICAL/SURGICAL HISTORY: Ischemic cardiomyopathy. CAD S/P stent. CKD stage IV. Atrophic left kidney. Prior history of polycythemia. Was apparently referred to pulmonology for HECTOR evaluation but states she was not ready to make that appointment. Asthma Obesity Type 2 diabetes. CHF Hypercholesterolemia. Pacemaker with defibrillator placement December 2017. MEDICATIONS: Reviewed in EMR and reconciled. ALLERGIES: LOSARTAN - throat swelling. VITAL SIGNS: Reviewed in EMR - stable. PHYSICAL EXAM: HEENT: Oral mucosa - pink and moist, no conjunctival pallor, sclera anicteric bilaterally. LYMPHATICS: Not reexamined today. Per prior exam - no cervical, supraclavicular, axillary or inguinal LAD. LUNGS: Clear to auscultation bilaterally, resonant to percussion bilaterally. HEART: Regular rhythm, no murmurs, no S3, S4, no rubs. ABDOMEN: Soft, nontender, bowel sounds normoactive, no hepatosplenomegaly. EXTREMITIES: 1+ B/L symmetric pitting edema, B/L nontender calves. SKIN/NAILS: No nail changes. Mild scattered bruising bilateral forearms 1-2 cm. MUSCULOSKELETAL: Spine nontender to palpation. INVESTIGATIONS: Reviewed in the EMR. ASSESSMENT/PLAN: 1. 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 Re-requested again Next Gen Sequencing results from [facility]. Patient was slated to have commenced chemotherapy no later than 04/25/19 but states she has not. CBC today revealed hemoglobin of 5.8 - surprisingly she has no cardiopulmonary symptoms. But with a history of CHF and CAD, we discussed heading to the ER for at least an observation admission and complete three units of packed RBCs. Patient refused mainly due to fear of the Covid-19 pandemic. States she takes responsibility for any cardiac issues that might arise. Would only agree to outpatient infusions, the first of which we were told can start tomorrow. Three units ordered. We re-discussed Dacogen - advised to commence no later than 05/09/19. With weekly CBC check for at least the first 4 weeks to determine transfusion needs. Further CBC checks will be ordered based on the patient's response. 2. Anemia - multifactorial - 2/2 CMML and component secondary to CKD. AV fistula planned in the future. 04/18/2019 - ferritin 745, serum iron 44, TIBC 302, % saturation 14.6, B12 1663. Discussed with patient risks, benefits - plan for Aranesp therapy for CKD. 3. Folate deficiency- 5.2 on 04/04/2019. Continue folic acid 1 mg p.o. q. day. Plan to update level in 2 months. 4. CMV IgG positive per notes from [facility] - IgM <30, CMV quantitative DNA PCR - negative. 5. 3 week history of diffuse pain - per patient at her initial office visit. CT C/L/T spine multilevel DJD at C3-4, C4-5, no fracture or subluxation, minimal degenerative spurring in the lower thoracic spine, multilevel degenerative changes L2-L3, minimal disc bulge L3-L4, facet arthropathy L5-S1. No significant spinal or foraminal stenosis. Today patient states she no longer has any pain. For any further acute back pain issues, would benefit from seeing a spine surgeon, though currently with asymptomatic status and prohibitive counts for any intervention- no indication for referral yet. FOLLOW UP: Weekly CBC check to assess transfusion needs. 05/23/19 toxicity assessment, status check and to evaluate transfusion needs. All of the above was relayed to the patient who was given on option to ask questions that were answered to her satisfaction. She voiced an understanding and agreed to proceed. Electronically Signed by Jd Platt MD 05/05/2019 05:08 P DD: Jd Platt MD 05/03/2019 09:47 P DT: ernestina 05/03/2019 11:45 P CC: Mounika Packer NP
[2019-05-09 13:11] LABS: BASO # 0.1 10^3/uL (0.0-0.2); BASO % 0.9 % (0.0-1.0); EOS % 0.1 % (0.0-3.0); HEMATOCRIT 26.9 % (36.0-47.0); HEMOGLOBIN 8.2 g/dl (12.0-15.5); LYMPH # 2.1 10^3/uL (1.5-5.0); LYMPH % 13.6 % (24.0-44.0); MEAN CORPUSCULAR HEMOGLOBIN 27.2 pg (27.0-33.0); MEAN CORPUSCULAR HGB CONC 30.5 g/dl (32.0-36.5); MEAN CORPUSCULAR VOLUME 89.1 fl (80.0-96.0); MONO # 2.4 10^3/uL (0.0-0.8); MONO % 15.9 % (0.0-5.0); NEUTROPHILS # 7.6 10^3/uL (1.5-8.5); NEUTROPHILS % 49.9 % (36.0-66.0); RED BLOOD COUNT 3.02 10^6/uL (4.00-5.40); WHITE BLOOD COUNT 15.3 10^3/uL (4.0-10.0)
[2019-05-09 13:17] VITALS: BP 98/52
[2019-05-09 13:33] LABS: PLATELET COUNT, AUTOMATED 14 10^3/uL (150-450)
[2019-05-09 13:41] LABS: ALBUMIN 2.5 GM/DL (3.2-5.2); BILIRUBIN,TOTAL 0.9 MG/DL (0.2-1.0); CALCIUM LEVEL 8.9 MG/DL (8.8-10.2); CREATININE FOR GFR 2.66 MG/DL (0.55-1.30); GLOMERULAR FILTRATION RATE 19.2 (>45); POTASSIUM SERUM 4.3 MEQ/L (3.5-5.1); TOTAL PROTEIN 6.8 GM/DL (6.4-8.2)
--- NOTE | 2019-05-09 14:46 | ONC.PHACK ---
CHEMO ADMIN CHECKLIST Order Contains Pt ID: Name, Order on Chemo Order Form?: Yes Order Form Includes ALL: Correct Tx Day, Correct Date, Correct Cycle Number Pt ID on Order form Matches: Pt ID on PHA Label Med on Chemo OrderForm Matches: PHA Label, Med Used for Preparation [facility] May 09, 2019 14:46
[2019-05-10] VITALS (10 sets, daily range): BP systolic 98–122; BP diastolic 53–62
--- NOTE | 2019-05-10 06:32 | MEDONC ---
DATE OF SERVICE: 05/09/2019 REASON FOR VISIT: CMML. DIAGNOSIS AND TREATMENT HISTORY: CMML- diagnosed via BM bx 03/2019: - 03/20/19 - Leukoerythroblastic anemia- Hgb 7-range, thrombocytopenia 40s range, WBC in the 20s range with left shift and nucleated RBCs, scattered circulating blasts. Peripheral blood flow cytometry - no acute leukemia, no NHL. - 04/03/19 - BM Bx MDS/MPD at [facility]- Mild increased bone marrow blasts (5% by CD34 IHC), favor CMML - 1. FISH - negative t(9;22) BCR/ABL-1 gene rearrangement - no evidence of CML. Karyotype - mononucleosis 75 and 7, FISH: +deletion 17p supporting above diagnosis, at [facility]. - 05/10/19- Slated to start decitabine. INTERVAL HISTORY: Patient here to commence C1D1 of decitabine. States she feels more energetic since receiving 2 units of packed RBCs. Also looks less pale. Has good appetite and sleep. Denies any weight loss. Denies any gum bleeding, nose bleeds, rectal bleeding or bleeding at any site. Denies any increase in small bruises present on bilateral forearms or any new bruising at any other site. Reports no other complaints. REVIEW OF SYSTEMS: CONSTITUTIONAL: No fevers, chills, night sweats, fatigue, malaise, or weight loss. CARDIOPULMONARY: No chest pain, palpitations, dizziness. No cough. No hemoptysis. GASTROINTESTINAL: No pain, nausea, vomiting, constipation or diarrhea. No hematemesis, melena or hematochezia. GENITOURINARY: No dysuria, hematuria, incontinence, frequency or urgency. MUSCULOSKELETAL: No bony, muscle, or joint aches or pains. MILITARY PERSONNEL SPECIALIST: No tingling, weakness, numbness. No headaches, dizziness, seizures, speech or visual disturbances. All other systems are negative unless otherwise specified in HPI. PAST MEDICAL/SURGICAL HISTORY: Ischemic cardiomyopathy. CAD S/P stent. CKD stage IV. Atrophic left kidney. Prior history of polycythemia. Was apparently referred to pulmonology for HECTOR evaluation but states she was not ready to make that appointment. Asthma Obesity Type 2 diabetes. CHF Hypercholesterolemia. Pacemaker with defibrillator placement December 2017. MEDICATIONS: Reviewed in EMR. ALLERGIES: LOSARTAN - throat swelling. VITAL SIGNS: Reviewed in EMR PHYSICAL EXAM: B/L nares- no oozing or bleeding or evidence of old blood SKIN/NAILS: No nail changes. Mild scattered bruising bilateral forearms 1-2 cm. INVESTIGATIONS: Reviewed in the EMR. ASSESSMENT/PLAN: 1. 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 Re-requested and awaiting Next Gen Sequencing results from [facility]. For hemoglobin of 5.8 - S/P 2 units of packed RBCs with improvement of hemoglobin to 8.2 today. White count stable to improved at 15.3, platelets declined to 14 today. Currently asymptomatic without any new bruising or bleeding. Currently off Asa and Plavix with platelets <50K. Continue to stay off it until further instructions. She can proceed to get C1D1 of decitabine and we will arrange for 2 units of SDU platelets. Repeat CBC on 05/12/2019 to assess transfusion needs. Patient has a standing order for weekly CBC check for the first 4 weeks to assess transfusion needs, additional CBCs to assess transfusion needs will need to be added based on her weekly labs. Patient is aware that following the commencement of decitabine her transfusion requirements will likely increase for the first several weeks to months prior to her counts stabilizing. Proceed with C1D1 of decitabine today. 2. Anemia - multifactorial - 2/2 CMML and component secondary to CKD. AV fistula planned in the future. 04/18/2019 - ferritin 745, serum iron 44, TIBC 302, % saturation 14.6, B12 1663. At her last visit discussed risks, benefits of Aranesp for CKD - proceed as planned. 3. Folate deficiency- 5.2 on 04/04/2019. Continue folic acid 1 mg p.o. q. day. Plan to update level in 2 months. 4. CMV IgG positive per notes from [facility] - IgM <30, CMV quantitative DNA PCR - negative. FOLLOW UP: Weekly CBC check to assess transfusion needs. 05/23/19 toxicity assessment, status check and to evaluate transfusion needs. All of the above was relayed to the patient who was given on option to ask questions that were answered to her satisfaction. She voiced an understanding and agreed to proceed. I spent 15 minutes during this visit seeing the patient [id number] and reviewing records, discussing with RN and co-ordinating care. More than 50% of the time was spent in direct [id number] discussion and counseling of the patient. Addendum: 05/10/19- Called and discussed with patient's Cardiology Dr. Aldridge- patient had stents in 2017, ok to be off both Asa and Plavix, when platelets recover to >50K, can resume Asa, may hold off on Plavix. Called and notified patient. Electronically Signed by Jd Platt MD 05/10/2019 06:52 P DD: Jd Platt MD 05/09/2019 04:47 P DT: baylee 05/10/2019 06:01 A CC:
--- NOTE | 2019-05-10 12:37 | ONC.PHACK ---
CHEMO ADMIN CHECKLIST Order Contains Pt ID: Name, Order on Chemo Order Form?: Yes Order Form Includes ALL: Correct Tx Day, Correct Date, Correct Cycle Number Pt ID on Order form Matches: Pt ID on PHA Label Med on Chemo OrderForm Matches: PHA Label, Med Used for Preparation [facility] May 10, 2019 12:37
--- NOTE | 2019-05-11 13:14 | ONC.PHACK ---
CHEMO ADMIN CHECKLIST Order Contains Pt ID: Name, Order on Chemo Order Form?: Yes Order Form Includes ALL: Correct Tx Day, Correct Date, Correct Cycle Number Pt ID on Order form Matches: Pt ID on PHA Label Med on Chemo OrderForm Matches: PHA Label, Med Used for Preparation [facility] May 11, 2019 13:14
[2019-05-11 13:33] VITALS: BP 104/55
--- NOTE | 2019-05-13 15:40 | MEDONCTEEN ---
Date/Time of Encounter Date of Encounter: May 13, 2019 Telephone Encounter Patient called yesterday, was heading to PCP for evaluation of a productive cough, did not feel well enough to come for day 4 of decitabine. She called back today was started on an antibiotic for bronchitis. Discussed with RN- Hold decitabine today, evaluate 05/16/19 for count check and to see if patient has recovered sufficiently to complete cycle one of decitabine. s/p 2 SDU with improvement of platelets from 14 to 24, Hgb stable baseline 7.9. No issues with bleeding reported. Hold decitabine toady and reassess 05/16/19Thursday. Signed out to LUCERO Batista MD May 13, 2019 15:40
[2019-05-16 13:05] LABS: BASO # 0.1 10^3/uL (0.0-0.2); BASO % 0.7 % (0.0-1.0); EOS % 0.1 % (0.0-3.0); HEMATOCRIT 23.5 % (36.0-47.0); HEMOGLOBIN 7.1 g/dl (12.0-15.5); LYMPH # 1.2 10^3/uL (1.5-5.0); LYMPH % 17.6 % (24.0-44.0); MEAN CORPUSCULAR HEMOGLOBIN 27.2 pg (27.0-33.0); MEAN CORPUSCULAR HGB CONC 30.2 g/dl (32.0-36.5); MONO # 0.8 10^3/uL (0.0-0.8); MONO % 11.6 % (0.0-5.0); NEUTROPHILS # 3.8 10^3/uL (1.5-8.5); NEUTROPHILS % 56.2 % (36.0-66.0); RED BLOOD COUNT 2.61 10^6/uL (4.00-5.40); WHITE BLOOD COUNT 6.8 10^3/uL (4.0-10.0)
[2019-05-16 13:10] VITALS: BP 97/54
[2019-05-16 13:38] LABS: PLATELET COUNT, AUTOMATED 11 10^3/uL (150-450)
--- NOTE | 2019-05-16 14:24 | ONC.PHACK ---
CHEMO ADMIN CHECKLIST Order Contains Pt ID: Name, Order on Chemo Order Form?: Yes Order Form Includes ALL: Correct Tx Day, Correct Date, Correct Cycle Number Pt ID on Order form Matches: Pt ID on PHA Label Med on Chemo OrderForm Matches: PHA Label, Med Used for Preparation [facility] May 16, 2019 14:24
[2019-05-17] VITALS (8 sets, daily range): BP systolic 101–140; BP diastolic 53–70
--- NOTE | 2019-05-17 08:48 | ONC.PHACK ---
CHEMO ADMIN CHECKLIST Order Contains Pt ID: Name, Order on Chemo Order Form?: Yes Order Form Includes ALL: Correct Tx Day, Correct Date, Correct Cycle Number Pt ID on Order form Matches: Pt ID on PHA Label Med on Chemo OrderForm Matches: PHA Label, Med Used for Preparation [facility] May 17, 2019 08:48
[2019-05-18] VITALS (7 sets, daily range): BP systolic 109–137; BP diastolic 58–71
--- NOTE | 2019-05-19 08:00 | MEDONCPDOC ---
Medical Oncology Office Note Date of Service: May 16, 2019 Diagnosis/Treatment History REASON FOR VISIT: CMML. DIAGNOSIS AND TREATMENT HISTORY: CMML- diagnosed via BM bx 03/2019: - 03/20/19 - Leukoerythroblastic anemia- Hgb 7-range, thrombocytopenia 40s range, WBC in the 20s range with left shift and nucleated RBCs, scattered circulating blasts. Peripheral blood flow cytometry - no acute leukemia, no NHL. - 04/03/19 - BM Bx MDS/MPD at [facility]- Mild increased bone marrow blasts (5% by CD34 IHC), favor CMML - 1. FISH - negative t(9;22) BCR/ABL-1 gene rearrangement - no evidence of CML. Karyotype - mononucleosis 75 and 7, FISH: +deletion 17p supporting above diagnosis, at [facility]. - 05/09/19- Cycle 1 Day 1 Decitabine -05/10/19- Cycle 1 Day 2 Decitabine -05/11/19- Cycle 1 Day 3 Decitabine Interval History Ms Cotton is a 65 year old female patient with CMML who began Cycle 1 Day Decitabine on 05/09/2019, Cycle 1 Day2 on 05/10/2019, and Day 3 on 05/11/2019. She called on 05-12-2019, stating that she went to see her PCP with a cough. Per patient, she was diagnosed with viral infection She was not given any a ntibiotics but was given a nasal spray. She returns today to continue with Day 4 and 5 of her first cycle of Decitabine. She states that her cough is nearly gone. She denies any fevers for 5 days. She is eating well and did start her folic acid for her folate deficiency. She is eating well. Allergies Coded Allergies: losartan (Verified Allergy, Severe, throat swelling, 06/28/18) Home Medications Active Scripts Folic Acid (Folic Acid) 1 Mg Tablet, 1 MG PO DAILY, #90 TAB 1 Refill Prov:LUCERO STODDARD MD 04/11/19 Reported Medications Insulin Lispro (Insulin Lispro Kwikpen U-100) 100 Unit/1 Ml Insuln.pen sliding scale 04/11/19 Allopurinol (Allopurinol) 100 Mg Tablet, 100 MG PO DAILY 04/11/19 Albuterol Sulfate (Proair Hfa) 8.5 Gm Hfa.aer.ad, 2 PUFF INH Q4-6HP PRN for wheezing 2/16/20 Clopidogrel Bisulfate (Clopidogrel) 75 Mg Tablet, 75 MG PO DAILY, TAB 06/28/18 Umeclidinium [place] (Incruse Ellipta) 62.5 Mcg Blst.w.dev, 1 PUFF INH DAILY 06/28/18 Insulin Glargine,Hum.rec.anlog (Basaglar Kwikpen U-100) 100 Unit/1 Ml Insuln.pen, 30 UNIT SC QHS 06/28/18 Insulin Human Lispro (Humalog) 100 Unit/1 Ml Vial, 1 UNIT SC TID, INJ 06/28/18 Isosorbide Mononitrate (Isosorbide Mononitrate ER) 60 Mg Tab, 60 MG PO DAILY 09/03/16 Calcium Polycarbophil (Fibercon) 625 Mg Tab, 625 MG PO DAILY, TAB 04/15/16 Carvedilol (Carvedilol) 12.5 Mg Tab, 12.5 MG PO BID, TAB 04/15/16 Pravastatin Sodium (Pravastatin Sodium) 40 Mg Tab, 40 MG PO DAILY, TAB 04/15/16 Spironolactone (Spironolactone) 100 Mg Tab, 100 MG PO DAILY, TAB 04/15/16 Amlodipine Besylate (Amlodipine Besylate) 2.5 Mg Tab, 5 MG PO DAILY, TAB 04/15/16 Furosemide (Lasix) 40 Mg Tab, 40 MG PO DAILY 06/28/13 Aspirin (Aspirin) 81 Mg Chw, 81 MG PO DAILY, CHW 06/28/13 Past Medical History Past Medical History: CMML, anemia of chronic kidney disease, Diabetes, folate deficiency, CMV IgG positive, CHF, CAD s /p shunt, ischemic cardiomyopathy, atrophic left kidney, asthma, hypercholesteremia. pacemaker with defebrillator placement 12/2017 Review of Systems CONSTITUTIONAL: No fevers, no chills, no night sweats, no fatigue, no malaise, no weight loss. CARDIOPULMONARY: No chest pain, no SOB, no palpitations, no dizziness. No cough. No hemoptysis. GASTROINTESTINAL: No pain, constipation or diarrhea. No hematemesis, no melena or hematochezia. GENITOURINARY: No dysuria, no hematuria, incontinence, frequency, no urgency. MUSCULOSKELETAL: No bony, no muscle, no joint aches or pains. COLD PATCHER: No tingling, weakness, numbness. No dizziness, seizures, no speech, no visual disturbances, All other systems, are negative unless otherwise specified in HPI. General: Reports: Normal Appetite; Denies: Chills, Night Sweats, Fatigue Eyes: Denies: Redness HEENT: Denies: Head Aches, Ear Pain, Dysphagia, Epistaxis Skin: Denies: Bruising Pulmonary: Denies: Dyspnea Cardiovascular: Denies: Chest Pain, Palpitations, Orthopnea Gastrointestinal: Denies: Nausea, Vomiting, Abdominal Pain, Diarrhea, Constipation, Melena, Hematochezia Genitourinary: Denies: Dysuria, Incontinence, Hematuria Hematologic: Denies: Bruising, Bleeding Excessively Musculoskeletal: Denies: Joint sweling Psych: Reports: Mood Normal Physical Examination 65 year old female patient with no acute distress accompanied by her . HEENT: sclerae anicteric,conjunctiva pink, oropharynx clear. Neck is supple. Lungs are clear to auscultation, no wheezes. Heart: S1,S2, regular rate and rhythm, no murmurs, rubs, or gallops. Abdomen is soft , nontender with spleen tip palpated, normoactive bowel sounds. Extremities show 2+ pedal and ankle edema. Numerous scatter ecchymoses on upper extremities, no skin tears observed. Ht / Wt Ht / Wt Height:5 Feet 6 Inches Weight: 86.200 Kg Vital Signs Vital Signs Date Time Temp Pulse Resp B/P (MAP) Pulse Ox O2 Delivery O2 Flow Rate FiO2 05/18/19 11:29 96.2 62 18 137/71 99 Room Air Laboratory Data Laboratory Tests Test 05/12/19 15:18 Blood Urea Nitrogen 39 MG/DL (7-18) H Creatinine 2.08 MG/DL (0.55-1.30) H Glomerular Filtration Rate 25.5 (>45) L Fasting Glucose 79 MG/DL (70-100) Calcium Level 8.7 MG/DL (8.8-10.2) L Sodium Level 140 MEQ/L (136-145) Potassium Level 4.5 MEQ/L (3.5-5.1) Chloride Level 106 MEQ/L (98-107) Carbon Dioxide Level 28 MEQ/L (21-32) Anion Gap 6 MEQ/L (8-16) L Laboratory Tests 05/16/19 12:48 Assessment/Plan 65 year old female patient with CMML here to complete Day 4 and 5 of her first cycle of Decitabine. Her platelets are 11,00 so we will schedule her for 2 units of platelets. Her Hgb/Hct is 7.1/23.5 so we will also schedule transfusion of 2 units of PRBCs also. We will repeat her CBC later this week after her transfusions. She was reminded that we expect her to need more transfusion support at the beginning of her treatment. She verbalized understanding and agreement. Her questions were answered to the best of my ability and to her apparent satisfaction. She will return in one week for an office visit with Dr Linda ROLDAN, and CMP. She was advised to call with any problems especially bruising or bleeding. Portions of this note were obtained from patient's history and were read and edited as necessary. Attending Chart and laboratory data reviewed Agree with plan of care as listed above Patient will remain transfusion dependent for quite a while We'll proceed with biweekly blood count analysis Q Thursday and with transfusions as needed every Thursday and Thursday CC TO: Primary Care Provider: Ana Paul MD Referring Provider: Felicia Tellez PA-C May 19, 2019 08:00 AAYUSH PERERA MD May 19, 2019 19:32
[2019-05-25 14:59] LABS: BASO % 0.7 % (0.0-1.0); HEMATOCRIT 24.9 % (36.0-47.0); HEMOGLOBIN 7.9 g/dl (12.0-15.5); LYMPH # 0.9 10^3/uL (1.5-5.0); LYMPH % 61.3 % (24.0-44.0); MEAN CORPUSCULAR HEMOGLOBIN 27.5 pg (27.0-33.0); MEAN CORPUSCULAR HGB CONC 31.7 g/dl (32.0-36.5); MEAN CORPUSCULAR VOLUME 86.8 fl (80.0-96.0); MONO # 0.1 10^3/uL (0.0-0.8); RED BLOOD COUNT 2.87 10^6/uL (4.00-5.40); WHITE BLOOD COUNT 1.5 10^3/uL (4.0-10.0)
[2019-05-25 15:02] VITALS: BP 102/64
[2019-05-25 15:02] LABS: NEUTROPHILS # 0.4 10^3/uL (1.5-8.5); PLATELET COUNT, AUTOMATED 4 10^3/uL (150-450)
[2019-05-26 10:14] VITALS: BP 100/57
[2019-05-26 10:30] VITALS: BP 105/57
[2019-05-26 11:30] VITALS: BP 115/60
[2019-05-26 11:58] VITALS: BP 112/64
--- NOTE | 2019-05-26 17:51 | MEDONCPDOC ---
Medical Oncology Office Note Date of Service: May 25, 2019 Diagnosis/Treatment History Oncology problem list 1. CMML currently on cycle 1 decitabine 2. Pancytopenia due to CMML and treatment History of present illness Allergies Coded Allergies: losartan (Verified Allergy, Severe, throat swelling, 06/28/18) Home Medications Active Scripts Folic Acid (Folic Acid) 1 Mg Tablet, 1 MG PO DAILY, #90 TAB 1 Refill Prov:LUCERO STODDARD MD 04/11/19 Reported Medications Insulin Lispro (Insulin Lispro Kwikpen U-100) 100 Unit/1 Ml Insuln.pen sliding scale 04/11/19 Allopurinol (Allopurinol) 100 Mg Tablet, 100 MG PO DAILY 04/11/19 Albuterol Sulfate (Proair Hfa) 8.5 Gm Hfa.aer.ad, 2 PUFF INH Q4-6HP PRN for wheezing 04/03/19 Clopidogrel Bisulfate (Clopidogrel) 75 Mg Tablet, 75 MG PO DAILY, TAB 06/28/18 Umeclidinium [place] (Incruse Ellipta) 62.5 Mcg Blst.w.dev, 1 PUFF INH DAILY 06/28/18 Insulin Glargine,Hum.rec.anlog (Basaglar Kwikpen U-100) 100 Unit/1 Ml Insuln.pen, 30 UNIT SC QHS 06/28/18 Insulin Human Lispro (Humalog) 100 Unit/1 Ml Vial, 1 UNIT SC TID, INJ 06/28/18 Isosorbide Mononitrate (Isosorbide Mononitrate ER) 60 Mg Tab, 60 MG PO DAILY 09/03/16 Calcium Polycarbophil (Fibercon) 625 Mg Tab, 625 MG PO DAILY, TAB 04/15/16 Carvedilol (Carvedilol) 12.5 Mg Tab, 12.5 MG PO BID, TAB 04/15/16 Pravastatin Sodium (Pravastatin Sodium) 40 Mg Tab, 40 MG PO DAILY, TAB 04/15/16 Spironolactone (Spironolactone) 100 Mg Tab, 100 MG PO DAILY, TAB 04/15/16 Amlodipine Besylate (Amlodipine Besylate) 2.5 Mg Tab, 5 MG PO DAILY, TAB 04/15/16 Furosemide (Lasix) 40 Mg Tab, 40 MG PO DAILY 06/28/13 Aspirin (Aspirin) 81 Mg Chw, 81 MG PO DAILY, CHW 06/28/13 Past Medical History Past Medical History: CMML Ischemic cardiomyopathy. CAD S/P stent. CKD stage IV. Atrophic left kidney. Prior history of polycythemia. Was apparently referred to pulmonology for HECTOR evaluation but states she was not ready to make that appointment. Asthma. Obesity. Type 2 diabetes. CHF. Hypercholesterolemia. anemia of chronic kidney disease folate deficiency, CMV IgG positive asthma, hypercholesteremia. Past Surgical History: Pacemaker with defibrillator placement December 2017. Family History: Mother - had history throat, thyroid and uterine cancers. Sister had diabetes and Lupus. Three brothers have CAD. No other history of malignancies or dyscrasias per patient. Social History: Smoking - 10 cigarettes a day since the age of 14. Quit in 2013, but commenced smoking again February 2019 about 10 cigarettes a day. Alcohol - Denies history of alcohol or recreational drug use. Review of Systems General: Reports: Normal Appetite; Denies: Chills, Fatigue, Malaise Constitutional: Reports: Fatigue Eyes: Denies: Vision change HEENT: Denies: Head Aches, Dysphagia, Sore Throat, Epistaxis Skin: Reports: Rash (ecchymosis) Pulmonary: Reports: Dyspnea Cardiovascular: Denies: Chest Pain, Palpitations, Orthopnea, Edema Gastrointestinal: Denies: Nausea, Vomiting, Diarrhea Genitourinary: Denies: Dysuria, Frequency, Incontinence Hematologic: Denies: Bruising, Petecchia Neurological: Reports: Weakness, Numbness; Denies: Change in Speech Psych: Reports: Mood Normal Physical Examination General Exam: Positive: Cooperative, Mild Distress Eye Exam: Positive: PERRLA, Conjunctiva & lids normal; Negative: Sclera icteric ENT EXAM: Positive: Atraumatic, Mucous membr. moist/pink Neck Exam: Reports: Supple; Denies: JVD, Thyromegaly, Lymphadenopathy Chest Exam: Positive: Clear to auscultation, Normal air movement Heart Exam: Positive: Other (systolic flow murmur noted) Abdomen Exam: Positive: Other (obese) Extremity Exam: Positive: Other (significant ecchymosis and some purpura noted on her arms) Skin Exam: Positive: Other skin issue (ecchymosis purpura as listed above) Neuro Exam: Positive: Normal Speech, Normal Tone Psych Exam: Positive: Anxiety Ht / Wt Ht / Wt Height:5 Feet 6 Inches Weight: 86.200 Kg Vital Signs Vital Signs Date Time Temp Pulse Resp B/P (MAP) Pulse Ox O2 Delivery O2 Flow Rate FiO2 05/26/19 11:58 97.8 71 20 112/64 99 Room Air Laboratory Data Laboratory Tests 05/25/19 14:48 Assessment/Plan Assessment CMML with 5% myeloblasts seen on bone marrow biopsy presently on cycle 1 decitabine day 17 with resultant pancytopenia Plan Patient will remain transfusion dependent for quite some time Patient requires central access due to very poor venous access and difficulty with IVs and blood draws. Plan on port placement with temple fusion prior to port placement Proceed with platelet transfusion tomorrow scheduled Likely will need platelet support next week Discussed signs and symptoms of when to call us Discussed protocol if develops febrile illness given neutropenia Empiric prophylactic antibiotics will be considered next week pending blood work Biweekly blood work and transfusion support as needed Blood counts will not improve for at least another 2-4 weeks All of the above was relayed to the patient who was given an opportunity to ask questions that were answered to satisfaction. The patient voiced an understanding and agreed to proceed. I spent 30 minutes during this visit seeing the patient [id number] and reviewing records. More than 50% of the time was spent in direct [id number] discussion and counseling of the patient. CC TO: Primary Care Provider: Ana Paul MD Referring Provider: Problems: (1) CMML (chronic myelomonocytic leukemia) (2) MDS (myelodysplastic syndrome) (3) Myeloproliferative disease AAYUSH PERERA MD May 26, 2019 17:51
[2019-05-30] VITALS (11 sets, daily range): BP systolic 101–137; BP diastolic 55–67
[2019-05-30 09:40] LABS: BASO % 0.8 % (0.0-1.0); EOS % 0.4 % (0.0-3.0); LYMPH % 40.2 % (24.0-44.0); MEAN CORPUSCULAR HEMOGLOBIN 27.5 pg (27.0-33.0); MEAN CORPUSCULAR HGB CONC 31.6 g/dl (32.0-36.5); MEAN CORPUSCULAR VOLUME 87.1 fl (80.0-96.0); MONO # 0.3 10^3/uL (0.0-0.8); MONO % 10.8 % (0.0-5.0); NEUTROPHILS % 39.4 % (36.0-66.0); WHITE BLOOD COUNT 2.5 10^3/uL (4.0-10.0)
[2019-05-30 09:42] LABS: HEMATOCRIT 20.9 % (36.0-47.0); HEMOGLOBIN 6.6 g/dl (12.0-15.5); PLATELET COUNT, AUTOMATED 10 10^3/uL (150-450)
[2019-05-30 09:49] LABS: INR 1.38; PROTHROMBIN TIME 16.7 SECONDS (11.8-14.0)
[2019-05-30 09:51] LABS: PARTIAL THROMBOPLASTIN TIME 33.8 SECONDS (25.0-38.4)
[2019-05-30 10:18] LABS: ALBUMIN 3.2 GM/DL (3.2-5.2); BILIRUBIN,TOTAL 0.7 MG/DL (0.2-1.0); CALCIUM LEVEL 9.2 MG/DL (8.8-10.2); CREATININE FOR GFR 2.15 MG/DL (0.55-1.30); GLOMERULAR FILTRATION RATE 24.6 (>45); POTASSIUM SERUM 3.3 MEQ/L (3.5-5.1); TOTAL PROTEIN 7.6 GM/DL (6.4-8.2)
[2019-06-02 10:12] LABS: EOS % 1.5 % (0.0-3.0); HEMATOCRIT 24.1 % (36.0-47.0); HEMOGLOBIN 7.8 g/dl (12.0-15.5); LYMPH # 0.8 10^3/uL (1.5-5.0); LYMPH % 43.3 % (24.0-44.0); MEAN CORPUSCULAR HEMOGLOBIN 28.6 pg (27.0-33.0); MEAN CORPUSCULAR HGB CONC 32.4 g/dl (32.0-36.5); MEAN CORPUSCULAR VOLUME 88.3 fl (80.0-96.0); MONO # 0.1 10^3/uL (0.0-0.8); MONO % 7.2 % (0.0-5.0); NEUTROPHILS % 33.1 % (36.0-66.0); RED BLOOD COUNT 2.73 10^6/uL (4.00-5.40); WHITE BLOOD COUNT 1.9 10^3/uL (4.0-10.0)
[2019-06-02 10:26] VITALS: BP 150/75
[2019-06-02 10:33] LABS: NEUTROPHILS # 0.6 10^3/uL (1.5-8.5); PLATELET COUNT, AUTOMATED 12 10^3/uL (150-450)
[2019-06-02 10:36] LABS: BILIRUBIN,TOTAL 0.8 MG/DL (0.2-1.0); CALCIUM LEVEL 9.3 MG/DL (8.8-10.2); CREATININE FOR GFR 1.66 MG/DL (0.55-1.30); GLOMERULAR FILTRATION RATE 33.1 (>45); POTASSIUM SERUM 3.6 MEQ/L (3.5-5.1); TOTAL PROTEIN 6.9 GM/DL (6.4-8.2)
--- NOTE | 2019-06-02 10:50 | MEDONCPDOC ---
Medical Oncology Office Note Date of Service: Jun 02, 2019 Diagnosis/Treatment History Oncology problem list 1. Chronic myelomonocytic leukemia with significant pancytopenia and transfusion dependence 2. Anemia secondary to Stage IV chronic kidney disease DIAGNOSIS AND TREATMENT HISTORY: CMML- diagnosed via BM bx 03/2019: - 03/20/19 - Leukoerythroblastic anemia- Hgb 7-range, thrombocytopenia 40s range, WBC in the 20s range with left shift and nucleated RBCs, scattered circulating blasts. Peripheral blood flow cytometry - no acute leukemia, no NHL. - 04/03/19 - BM Bx MDS/MPD at [facility]- Mild increased bone marrow blasts (5% by CD34 IHC), favor CMML - 1. FISH - negative t(9;22) BCR/ABL-1 gene rearrangement - no evidence of CML. Karyotype - mononucleosis 75 and 7, FISH: +deletion 17p supporting above diagnosis, at [facility]. - 05/09/19- Cycle 1 Day 1 Decitabine -05/10/19- Cycle 1 Day 2 Decitabine -05/11/19- Cycle 1 Day 3 Decitabine Interval History Day +25 cycle 1 palliative decitabine Report was successfully placed quickly which estrogen prior Patient's blood count should start to improve We reviewed pathology with patient as well as diagnosis The goals of treatment discussed with patient The goal is for transfusion dependence Given sluggish improvement in blood counts, would recommend at least 6 week interval for considering cycle #2 decitabine Patient does have somewhat of a limited insight into her diagnosis and prognosis. Instructions given to patient went to call Potential blood transfusion next week We'll see the patient back in 1 week's time Allergies Coded Allergies: losartan (Verified Allergy, Severe, throat swelling, 06/28/18) Home Medications Active Scripts Folic Acid (Folic Acid) 1 Mg Tablet, 1 MG PO DAILY, #90 TAB 1 Refill Prov:LUCERO STODDARD MD 04/11/19 Reported Medications Insulin Lispro (Insulin Lispro Kwikpen U-100) 100 Unit/1 Ml Insuln.pen sliding scale 04/11/19 Allopurinol (Allopurinol) 100 Mg Tablet, 100 MG PO DAILY 04/11/19 Albuterol Sulfate (Proair Hfa) 8.5 Gm Hfa.aer.ad, 2 PUFF INH Q4-6HP PRN for wheezing 04/03/19 Clopidogrel Bisulfate (Clopidogrel) 75 Mg Tablet, 75 MG PO DAILY, TAB 06/28/18 Umeclidinium [place] (Incruse Ellipta) 62.5 Mcg Blst.w.dev, 1 PUFF INH DAILY 06/28/18 Insulin Glargine,Hum.rec.anlog (Basaglar Kwikpen U-100) 100 Unit/1 Ml Insuln.pen, 30 UNIT SC QHS 06/28/18 Insulin Human Lispro (Humalog) 100 Unit/1 Ml Vial, 1 UNIT SC TID, INJ 06/28/18 Isosorbide Mononitrate (Isosorbide Mononitrate ER) 60 Mg Tab, 60 MG PO DAILY 09/03/16 Calcium Polycarbophil (Fibercon) 625 Mg Tab, 625 MG PO DAILY, TAB 04/15/16 Carvedilol (Carvedilol) 12.5 Mg Tab, 12.5 MG PO BID, TAB 04/15/16 Pravastatin Sodium (Pravastatin Sodium) 40 Mg Tab, 40 MG PO DAILY, TAB 04/15/16 Spironolactone (Spironolactone) 100 Mg Tab, 100 MG PO DAILY, TAB 04/15/16 Amlodipine Besylate (Amlodipine Besylate) 2.5 Mg Tab, 5 MG PO DAILY, TAB 04/15/16 Furosemide (Lasix) 40 Mg Tab, 40 MG PO BID 06/28/13 Aspirin (Aspirin) 81 Mg Chw, 81 MG PO DAILY, CHW 06/28/13 Past Medical History Past Medical History: CMML Ischemic cardiomyopathy. CAD S/P stent. CKD stage IV. Atrophic left kidney. Prior history of polycythemia. Was apparently referred to pulmonology for HECTOR evaluation but states she was not ready to make that appointment. Asthma. Obesity. Type 2 diabetes. CHF. Hypercholesterolemia. anemia of chronic kidney disease folate deficiency, CMV IgG positive asthma, hypercholesteremia. Past Surgical History: Pacemaker with defibrillator placement December 2017. Family History: Mother - had history throat, thyroid and uterine cancers. Sister had diabetes and Lupus. Three brothers have CAD. No other history of malignancies or dyscrasias per patient. Social History: Smoking - 10 cigarettes a day since the age of 14. Quit in 2013, but commenced smoking again February 2019 about 10 cigarettes a day. Alcohol - Denies history of alcohol or recreational drug use. Review of Systems General: Reports: Normal Appetite; Denies: Chills, Fatigue, Malaise Constitutional: Reports: Fatigue Eyes: Denies: Vision change HEENT: Denies: Head Aches, Dysphagia, Sore Throat, Epistaxis Skin: Denies: Rash, Lesions, Jaundice, Bruising Pulmonary: Reports: Dyspnea (stable) Cardiovascular: Denies: Chest Pain, Palpitations, Orthopnea, Edema Gastrointestinal: Denies: Nausea, Vomiting, Diarrhea Genitourinary: Denies: Dysuria, Frequency, Incontinence Hematologic: Denies: Bruising, Petecchia Neurological: Reports: Weakness, Numbness; Denies: Change in Speech Psych: Reports: Mood Normal Physical Examination General Exam: Positive: Cooperative, No Acute Distress Eye Exam: Positive: PERRLA, Conjunctiva & lids normal; Negative: Sclera icteric ENT EXAM: Positive: Atraumatic, Mucous membr. moist/pink Neck Exam: Reports: Supple; Denies: JVD, Thyromegaly, Lymphadenopathy Chest Exam: Positive: Clear to auscultation, Normal air movement Heart Exam: Positive: Rate Normal Abdomen Exam: Positive: Other (obese) Extremity Exam: Positive: Swelling (minimal) Skin Exam: Positive: Rash (ecchymosis noted upper extremities. No petechiae noted) Neuro Exam: Positive: Normal Speech, Normal Tone Psych Exam: Positive: Mental status NL Ht / Wt Ht / Wt Height:5 Feet 6 Inches Weight: 81.800 Kg Vital Signs Vital Signs Date Time Temp Pulse Resp B/P (MAP) Pulse Ox O2 Delivery O2 Flow Rate FiO2 06/02/19 10:26 97.7 78 18 150/75 (100) 100 Room Air Laboratory Data Laboratory Tests Test 05/30/19 09:22 06/02/19 09:58 Blood Urea Nitrogen 49 MG/DL (7-18) H 35 MG/DL (7-18) H Creatinine 2.15 MG/DL (0.55-1.30) H 1.66 MG/DL (0.55-1.30) H Glomerular Filtration Rate 24.6 (>45) L 33.1 (>45) L Fasting Glucose 150 MG/DL (70-100) H 122 MG/DL (70-100) H Calcium Level 9.2 MG/DL (8.8-10.2) 9.3 MG/DL (8.8-10.2) Total Bilirubin 0.7 MG/DL (0.2-1.0) 0.8 MG/DL (0.2-1.0) Aspartate Amino Transf (AST/SGOT) 8 U/L (7-37) 8 U/L (7-37) Alanine Aminotransferase (ALT/SGPT) 11 U/L (12-78) L 10 U/L (12-78) L Total Protein 7.6 GM/DL (6.4-8.2) 6.9 GM/DL (6.4-8.2) Sodium Level 137 MEQ/L (136-145) 138 MEQ/L (136-145) Albumin 3.2 GM/DL (3.2-5.2) 3.0 GM/DL (3.2-5.2) L Alkaline Phosphatase 104 U/L (45-117) 89 U/L (45-117) Potassium Level 3.3 MEQ/L (3.5-5.1) L 3.6 MEQ/L (3.5-5.1) Chloride Level 101 MEQ/L (98-107) 103 MEQ/L (98-107) Carbon Dioxide Level 28 MEQ/L (21-32) 27 MEQ/L (21-32) Anion Gap 8 MEQ/L (8-16) 8 MEQ/L (8-16) Laboratory Tests 06/01/19 12:50 06/02/19 09:58 Assessment/Plan Assessment 1. Chronic myelomonocytic leukemia1 day 25 of cycle 1 decitabine 2. Pancytopenia with exacerbation secondary to decitabine 3. Anemia secondary to stage IV chronic kidney disease with adequate iron stores documented Plan 1. Proceed with erythropoietin with factor support Procrit 40,000 units subcutaneous today 2. Follow-up in 1 week's time for blood work and type and cross 2 units red cells with planned transfusion next Thursday 3. Hold off on additional platelet transfusions as counts are stable an expected to rise on its on given more than 3 weeks since initial chemotherapy 4. Hold cycle #2 decitabine All of the above was relayed to the patient who was given an opportunity to ask questions that were answered to satisfaction. The patient voiced an understanding and agreed to proceed. I spent 35 minutes during this visit seeing the patient [id number] and reviewing records. More than 50 % of the time was spent in direct [id number] discussion and counseling of the patient. CC TO: Primary Care Provider: Ana Paul MD Referring Provider: Problems: (1) CMML (chronic myelomonocytic leukemia) (2) Myeloproliferative disease (3) MDS (myelodysplastic syndrome) (4) Anemia due to stage 4 chronic kidney disease treated with erythropoietin AAYUSH PERERA MD Jun 02, 2019 10:50
[2019-06-09] VITALS (7 sets, daily range): BP systolic 104–144; BP diastolic 58–63
[2019-06-09 08:13] LABS: BASO # 0.1 10^3/uL (0.0-0.2); BASO % 1.7 % (0.0-1.0); EOS % 0.3 % (0.0-3.0); HEMATOCRIT 21.3 % (36.0-47.0); MEAN CORPUSCULAR HEMOGLOBIN 28.5 pg (27.0-33.0); MEAN CORPUSCULAR HGB CONC 31.9 g/dl (32.0-36.5); MEAN CORPUSCULAR VOLUME 89.1 fl (80.0-96.0); MONO # 0.4 10^3/uL (0.0-0.8); MONO % 13.9 % (0.0-5.0); NEUTROPHILS # 1.1 10^3/uL (1.5-8.5); NEUTROPHILS % 37.2 % (36.0-66.0); RED BLOOD COUNT 2.39 10^6/uL (4.00-5.40); WHITE BLOOD COUNT 2.9 10^3/uL (4.0-10.0)
[2019-06-09 08:25] LABS: HEMOGLOBIN 6.8 g/dl (12.0-15.5); PLATELET COUNT, AUTOMATED 28 10^3/uL (150-450)
--- NOTE | 2019-06-09 08:34 | MEDONCPDOC ---
Medical Oncology Office Note Date of Service: Jun 09, 2019 Diagnosis/Treatment History Oncology problem list 1. CMML currently on cycle 1 decitabine 2. Pancytopenia due to CMML and treatment 3. Grade 4 anemia History of present illness Allergies Coded Allergies: losartan (Verified Allergy, Severe, throat swelling, 06/28/18) Interval History Patient is day +24 status post cycle 1 decitabine Patient has grade 4 anemia today with a hemoglobin 6.8 Proceed with 2 units packed red blood cells Platelet count improving Plan on delay of cycle #2 pending kinetics of blood counts Allergies Coded Allergies: losartan (Verified Allergy, Severe, throat swelling, 06/28/18) Home Medications Active Scripts Folic Acid (Folic Acid) 1 Mg Tablet, 1 MG PO DAILY, #90 TAB 1 Refill Prov:LUCERO STODDARD MD 04/11/19 Reported Medications Albuterol Sulfate (Proair Hfa) 8.5 Gm Hfa.aer.ad, 2 PUFF INH Q4-6HP PRN for wheezing 04/03/19 Umeclidinium [place] (Incruse Ellipta) 62.5 Mcg Blst.w.dev, 1 PUFF INH DAILY 06/28/18 Insulin Glargine,Hum.rec.anlog (Basaglar Kwikpen U-100) 100 Unit/1 Ml In suln.pen, 30 UNIT SC QHS 06/28/18 Insulin Human Lispro (Humalog) 100 Unit/1 Ml Vial, 1 UNIT SC TID, INJ 06/28/18 Isosorbide Mononitrate (Isosorbide Mononitrate ER) 60 Mg Tab, 60 MG PO DAILY 09/03/16 Calcium Polycarbophil (Fibercon) 625 Mg Tab, 625 MG PO DAILY, TAB 04/15/16 Carvedilol (Carvedilol) 12.5 Mg Tab, 12.5 MG PO BID, TAB 04/15/16 Pravastatin Sodium (Pravastatin Sodium) 40 Mg Tab, 40 MG PO DAILY, TAB 04/15/16 Spironolactone (Spironolactone) 100 Mg Tab, 100 MG PO DAILY, TAB 04/15/16 Amlodipine Besylate (Amlodipine Besylate) 2.5 Mg Tab, 5 MG PO DAILY, TAB 04/15/16 Furosemide (Lasix) 40 Mg Tab, 40 MG PO BID 06/28/13 Discontinued Reported Medications Insulin Lispro (Insulin Lispro Kwikpen U-100) 100 Unit/1 Ml Insuln.pen sliding scale 04/11/19 Allopurinol (Allopurinol) 100 Mg Tablet, 100 MG PO DAILY 04/11/19 Clopidogrel Bisulfate (Clopidogrel) 75 Mg Tablet, 75 MG PO DAILY, TAB 06/28/18 Aspirin (Aspirin) 81 Mg Chw, 81 MG PO DAILY, CHW 06/28/13 Past Medical History Past Medical History: CMML Ischemic cardiomyopathy. CAD S/P stent. CKD stage IV. Atrophic left kidney. Prior history of polycythemia. Was apparently referred to pulmonology for HECTOR evaluation but states she was not ready to make that appointment. Asthma. Obesity. Type 2 diabetes. CHF. Hypercholesterolemia. anemia of chronic kidney disease folate deficiency, CMV IgG positive asthma, hypercholesteremia. Past Surgical History: Pacemaker with defibrillator placement December 2017. Family History: Mother - had history throat, thyroid and uterine cancers. Sister had diabetes and Lupus. Three brothers have CAD. No other history of malignancies or dyscrasias per patient. Social History: Smoking - 10 cigarettes a day since the age of 14. Quit in 2013, but commenced smoking again February 2019 about 10 cigarettes a day. Alcohol - Denies history of alcohol or recreational drug use. Review of Systems General: Reports: Normal Appetite; Denies: Chills, Fatigue, Malaise Constitutional: Reports: Fatigue Eyes: Denies: Vision change HEENT: Denies: Head Aches, Dysphagia, Sore Throat, Epistaxis Skin: Denies: Rash, Lesions, Jaundice, Bruising Pulmonary: Reports: Dyspnea Cardiovascular: Denies: Chest Pain, Palpitations, Orthopnea, Edema Gastrointestinal: Denies: Nausea, Vomiting, Diarrhea Genitourinary: Denies: Dysuria, Frequency, Incontinence Hematologic: Denies: Bruising, Petecchia Neurological: Reports: Weakness, Numbness; Denies: Change in Speech Psych: Reports: Mood Normal Physical Examination General Exam: Positive: Mild Distress Eye Exam: Positive: PERRLA, Conjunctiva & lids normal; Negative: Sclera icteric ENT EXAM: Positive: Atraumatic, Mucous membr. moist/pink Neck Exam: Reports: Supple; Denies: JVD, Thyromegaly, Lymphadenopathy Chest Exam: Positive: Clear to auscultation, Normal air movement Heart Exam: Positive: Other (soft flow mummur) Abdomen Exam: Positive: Normal bowel sounds; Negative: Tenderness, Hepatospenomegaly, Mass Extremity Exam: Negative: Clubbing, Cyanosis, Edema Skin Exam: Positive: Nl turgor and temperature; Negative: Rash, Breakdown, Lesion Neuro Exam: Positive: Normal Speech, Normal Tone Psych Exam: Positive: Mental status NL Ht / Wt Ht / Wt Height:5 Feet 6 Inches Weight: 81.800 Kg Vital Signs Vital Signs Date Time Temp Pulse Resp B/P (MAP) Pulse Ox O2 Delivery O2 Flow Rate FiO2 06/09/19 08:03 97.0 75 16 118/62 (80) 99 Room Air Laboratory Data Laboratory Tests Test 06/02/19 09:58 06/09/19 07:59 Blood Urea Nitrogen 35 MG/DL (7-18) H Creatinine 1.66 MG/DL (0.55-1.30) H Glomerular Filtration Rate 33.1 (>45) L Fasting Glucose 122 MG/DL (70-100) H Calcium Level 9.3 MG/DL (8.8-10.2) Total Bilirubin 0.8 MG/DL (0.2-1.0) Aspartate Amino Transf (AST/SGOT) 8 U/L (7-37) Alanine Aminotransferase (ALT/SGPT) 10 U/L (12-78) L Total Protein 6.9 GM/DL (6.4-8.2) Sodium Level 138 MEQ/L (136-145) Albumin 3.0 GM/DL (3.2-5.2) L Alkaline Phosphatase 89 U/L (45-117) Potassium Level 3.6 MEQ/L (3.5-5.1) Chloride Level 103 MEQ/L (98-107) Carbon Dioxide Level 27 MEQ/L (21-32) Anion Gap 8 MEQ/L (8-16) Laboratory Tests 06/09/19 07:59 Assessment/Plan Assessment CMML with 5% myeloblasts seen on bone marrow biopsy presently on cycle 1 decitabine day 24 with resultant pancytopenia Plan Patient will remain transfusion dependent for quite some time of both platelets and blood Continue with Procrit 40,000 units today to decrease red blood cell transfusion requirement 2 units red blood cells today for hemoglobin 6.8 for grade 4 symptomatic anemia Again discussed signs and symptoms of when to call us Given that the patient does not have splenomegaly, it may be prudent to delay next treatment to see where the kinetics of her blood counts go Discussed this with patient she is amenable This may be an indolent disease and given recent genetics of blood counts we may elect to observe patient in future pending kinetics of counts All of the above was relayed to the patient who was given an opportunity to ask questions that were answered to satisfaction. The patient voiced an understanding and agreed to proceed. I spent 30 minutes during this visit seeing the patient [id number] and reviewing records. More than 50% of the time was spent in direct [id number] discussion and counseling of the patient. CC TO: Primary Care Provider: Ana Paul MD Referring Provider: Problems: (1) CMML (chronic myelomonocytic leukemia) (2) MDS (myelodysplastic syndrome) (3) Anemia due to stage 4 chronic kidney disease treated with erythropoietin (4) Myeloproliferative disease AAYUSH PERERA MD Jun 09, 2019 08:34
[2019-06-09 08:35] LABS: ALBUMIN 2.9 GM/DL (3.2-5.2); BILIRUBIN,TOTAL 0.5 MG/DL (0.2-1.0); CALCIUM LEVEL 8.6 MG/DL (8.8-10.2); CREATININE FOR GFR 1.89 MG/DL (0.55-1.30); GLOMERULAR FILTRATION RATE 28.5 (>45); POTASSIUM SERUM 3.5 MEQ/L (3.5-5.1); TOTAL PROTEIN 6.8 GM/DL (6.4-8.2)
[2019-06-16 08:03] VITALS: BP 131/75
[2019-06-16 08:11] LABS: BASO # 0.1 10^3/uL (0.0-0.2); BASO % 1.4 % (0.0-1.0); EOS % 0.8 % (0.0-3.0); HEMATOCRIT 26.3 % (36.0-47.0); HEMOGLOBIN 8.5 g/dl (12.0-15.5); LYMPH # 1.2 10^3/uL (1.5-5.0); LYMPH % 32.7 % (24.0-44.0); MEAN CORPUSCULAR HEMOGLOBIN 28.4 pg (27.0-33.0); MEAN CORPUSCULAR HGB CONC 32.3 g/dl (32.0-36.5); MONO # 0.5 10^3/uL (0.0-0.8); MONO % 12.6 % (0.0-5.0); NEUTROPHILS # 1.5 10^3/uL (1.5-8.5); NEUTROPHILS % 40.4 % (36.0-66.0); RED BLOOD COUNT 2.99 10^6/uL (4.00-5.40); WHITE BLOOD COUNT 3.6 10^3/uL (4.0-10.0)
[2019-06-16 08:16] LABS: PLATELET COUNT, AUTOMATED 23 10^3/uL (150-450)
--- NOTE | 2019-06-16 08:24 | MEDONCPDOC ---
Medical Oncology Office Note Date of Service: Jun 16, 2019 Diagnosis/Treatment History Oncology problem list 1. CMML currently on cycle 1 decitabine 2. Pancytopenia due to CMML and treatment 3. Grade 4 anemia History of present illness Allergies Coded Allergies: losartan (Verified Allergy, Severe, throat swelling, 06/28/18) Interval History Patient is day +31 status post cycle 1 decitabine WBC was 3.6 today Hemoglobin 8.5 Platelet count 23,000 Cycle #2 of decitabine will be planned in approximately 2 weeks pending kinetics of blood counts Allergies Coded Allergies: losartan (Verified Allergy, Severe, throat swelling, 06/28/18) Home Medications Active Scripts Folic Acid (Folic Acid) 1 Mg Tablet, 1 MG PO DAILY, #90 TAB 1 Refill Prov:LUCERO STODDARD MD 04/11/19 Reported Medications Albuterol Sulfate (Proair Hfa) 8.5 Gm Hfa.aer.ad, 2 PUFF INH Q4-6HP PRN for wheezing 04/03/19 Umeclidinium [place] (Incruse Ellipta) 62.5 Mcg Blst.w.dev, 1 PUFF INH DAILY 06/28/18 Insulin Glargine,Hum.rec.anlog (Basaglar Kwikpen U-100) 100 Unit/1 Ml Insuln.pen, 30 UNIT SC QHS 06/28/18 Insulin Human Lispro (Humalog) 100 Unit/1 Ml Vial, 1 UNIT SC TID, INJ 06/28/18 Isosorbide Mononitrate (Isosorbide Mononitrate ER) 60 Mg Tab, 60 MG PO DAILY 09/03/16 Calcium Polycarbophil (Fibercon) 625 Mg Tab, 625 MG PO DAILY, TAB 04/15/16 Carvedilol (Carvedilol) 12.5 Mg Tab, 12.5 MG PO BID, TAB 04/15/16 Pravastatin Sodium (Pravastatin Sodium) 40 Mg Tab, 40 MG PO DAILY, TAB 04/15/16 Spironolactone (Spironolactone) 100 Mg Tab, 100 MG PO DAILY, TAB 04/15/16 Amlodipine Besylate (Amlodipine Besylate) 2.5 Mg Tab, 5 MG PO DAILY, TAB 04/15/16 Furosemide (Lasix) 40 Mg Tab, 40 MG PO BID 06/28/13 Discontinued Reported Medications Insulin Lispro (Insulin Lispro Kwikpen U-100) 100 Unit/1 Ml Insuln.pen sliding scale 04/11/19 Allopurinol (Allopurinol) 100 Mg Tablet, 100 MG PO DAILY 04/11/19 Clopidogrel Bisulfate (Clopidogrel) 75 Mg Tablet, 75 MG PO DAILY, TAB 06/28/18 Aspirin (Aspirin) 81 Mg Chw, 81 MG PO DAILY, CHW 06/28/13 Past Medical History Past Medical History: CMML Ischemic cardiomyopathy. CAD S/P stent. CKD stage IV. Atrophic left kidney. Prior history of polycythemia. Was apparently referred to pulmonology for HECTOR evaluation but states she was not ready to make that appointment. Asthma. Obesity. Type 2 diabetes. CHF. Hypercholesterolemia. anemia of chronic kidney disease folate deficiency, CMV IgG positive asthma, hypercholesteremia. Past Surgical History: Pacemaker with defibrillator placement December 2017. Family History: Mother - had history throat, thyroid and uterine cancers. Sister had diabetes and Lupus. Three brothers have CAD. No other history of malignancies or dyscrasias per patient. Social History: Smoking - 10 cigarettes a day since the age of 14. Quit in 2013, but commenced smoking again February 2019 about 10 cigarettes a day. Alcohol - Denies history of alcohol or recreational drug use. Review of Systems General: Reports: Normal Appetite; Denies: Chills, Fatigue, Malaise Constitutional: Denies: Chills, Fatigue, Weight Loss Eyes: Denies: Vision change HEENT: Denies: Head Aches, Dysphagia, Sore Throat, Epistaxis Skin: Denies: Rash, Lesions, Jaundice, Bruising Pulmonary: Denies: Dyspnea, Cough Cardiovascular: Denies: Chest Pain, Palpitations, Orthopnea, Edema Gastrointestinal: Denies: Nausea, Vomiting, Diarrhea Genitourinary: Denies: Dysuria, Frequency, Incontinence Hematologic: Denies: Bruising, Petecchia Neurological: Reports: Weakness, Numbness; Denies: Change in Speech Psych: Reports: Mood Normal Physical Examination General Exam: Positive: Alert, No Acute Distress Eye Exam: Positive: PERRLA, Conjunctiva & lids normal; Negative: Sclera icteric ENT EXAM: Positive: Atraumatic, Mucous membr. moist/pink Neck Exam: Reports: Supple; Denies: JVD, Thyromegaly, Lymphadenopathy Chest Exam: Positive: Clear to auscultation, Normal air movement, Other (port site is intact) Heart Exam: Positive: Rate Normal Abdomen Exam: Positive: Normal bowel sounds; Negative: Tenderness, Hepatospenomegaly, Mass Extremity Exam: Negative: Clubbing, Cyanosis, Edema Skin Exam: Positive: Nl turgor and temperature; Negative: Rash, Breakdown, Lesion Neuro Exam: Positive: Normal Speech, Normal Tone Psych Exam: Positive: Mental status NL Ht / Wt Ht / Wt Height:5 Feet 6 Inches Weight: 81.500 Kg Vital Signs Vital Signs Date Time Temp Pulse Resp B/P (MAP) Pulse Ox O2 Delivery O2 Flow Rate FiO2 06/16/19 08:03 97.9 74 18 131/75 (93) 99 Room Air Laboratory Data Laboratory Tests Test 06/09/19 07:59 06/16/19 07:59 Blood Urea Nitrogen 25 MG/DL (7-18) H Creatinine 1.89 MG/DL (0.55-1.30) H Glomerular Filtration Rate 28.5 (>45) L Fasting Glucose 173 MG/DL (70-100) H Calcium Level 8.6 MG/DL (8.8-10.2) L Total Bilirubin 0.5 MG/DL (0.2-1.0) Aspartate Amino Transf (AST/SGOT) 9 U/L (7-37) Alanine Aminotransferase (ALT/SGPT) 8 U/L (12-78) L Total Protein 6.8 GM/DL (6.4-8.2) Sodium Level 138 MEQ/L (136-145) Albumin 2.9 GM/DL (3.2-5.2) L Alkaline Phosphatase 80 U/L (45-117) Potassium Level 3.5 MEQ/L (3.5-5.1) Chloride Level 104 MEQ/L (98-107) Carbon Dioxide Level 25 MEQ/L (21-32) Anion Gap 9 MEQ/L (8-16) Laboratory Tests 06/16/19 07:59 Assessment/Plan Assessment CMML with 5% myeloblasts seen on bone marrow biopsy presently on cycle 1 decitabine day 31 with resultant pancytopenia Overall poor prognosis Plan Proceed with InelliGEN myeloid panel to see if there are any cab driver mutations Patient will remain transfusion dependent for quite some time of both platelets and blood Continue with Procrit 40,000 units today to decrease red blood cell transfusion requirement. Dose today for Hb 8.5gm/dl Again discussed signs and symptoms of when to call us Prolonged discussion on severity of her hematological malignancy. She now understands that this is a cancer that has no cure, just treatment to hopefully improve blood counts by disease control. Treatment remain dangerous, discussed this again with patient Smoking cessation counselling administered today. Cycle #2 decitabine tentatively be planned the week of July 03 Again, this may be an indolent disease and given recent genetics of blood counts we may elect to observe patient in future pending kinetics of counts All of the above was relayed to the patient who was given an opportunity to ask questions that were answered to satisfaction. The patient voiced an understanding and agreed to proceed. I spent 25 minutes during this visit seeing the patient [id number] and reviewing records. More than 50% of the time was spent in direct [id number] discussion and counseling of the patient. CC TO: Primary Care Provider: Ana Paul MD Referring Provider: Problems: (1) CMML (chronic myelomonocytic leukemia) (2) MDS (myelodysplastic syndrome) (3) Myeloproliferative disease AAYUSH PERERA MD Jun 16, 2019 08:24
[2019-06-16 08:42] LABS: ALBUMIN 3.1 GM/DL (3.2-5.2); BILIRUBIN,TOTAL 0.9 MG/DL (0.2-1.0); CALCIUM LEVEL 9.3 MG/DL (8.8-10.2); CREATININE FOR GFR 1.71 MG/DL (0.55-1.30); POTASSIUM SERUM 3.6 MEQ/L (3.5-5.1)
--- NOTE | 2019-06-23 08:17 | MEDONCPDOC ---
Medical Oncology Office Note Date of Service: June 23, 2019 Diagnosis/Treatment History Oncology problem list 1. CMML currently on cycle 1 decitabine day +31 2. Pancytopenia due to CMML and treatment 3. Grade 4 anemia History of present illness Patient initially evaluated and sent to us for pancytopenia. Bone marrow biopsy and aspiration was performed 03/20/2019 which revealed chronic myelomonocytic leukemia. Patient underwent induction decitabine. CMML- diagnosed via BM bx 03/2019: - 03/20/19 - Leukoerythroblastic anemia- Hgb 7-range, thrombocytopenia 40s range, WBC in the 20s range with left shift and nucleated RBCs, scattered circulating blasts. Peripheral blood flow cytometry - no acute leukemia, no NHL. - 04/03/19 - BM Bx MDS/MPD at [facility]- Mild increased bone marrow blasts (5% by CD34 IHC), favor CMML - 1. FISH - negative t(9;22) BCR/ABL-1 gene rearrangement - no evidence of CML. Karyotype - mononucleosis 75 and 7, FISH: +deletion 17p supporting above diagnosis, at [facility]. - 05/09/19- Cycle 1 Day 1 Decitabine Interval History Patient is day +31 status post cycle 1 decitabine Patient has grade 3 anemia today with a hemoglobin 7.2 Given patient is asymptomatic, we will hold off with red blood cell transfusion support today Plan on proceeding with 2 units packed red blood cells next week Platelet count improving and stable today 28,000 Plan on initiation of palliative cycle #2 decitabine week of July 03 Reason for treatment is to delay conversion to acute leukemia and to decrease or eliminate transfusion support We proceed with erythropoietin growth factor support as scheduled Allergies Coded Allergies: losartan (Verified Allergy, Severe, throat swelling, 06/28/18) Home Medications Active Scripts Folic Acid (Folic Acid) 1 Mg Tablet, 1 MG PO DAILY, #90 TAB 1 Refill Prov:LUCERO STODDARD MD 04/11/19 Reported Medications Albuterol Sulfate (Proair Hfa) 8.5 Gm Hfa.aer.ad, 2 PUFF INH Q4-6HP PRN for wheezing 04/03/19 Umeclidinium [place] (Incruse Ellipta) 62.5 Mcg Blst.w.dev, 1 PUFF INH DAILY 06/28/18 Insulin Glargine,Hum.rec.anlog (Basaglar Kwikpen U-100) 100 Unit/1 Ml Insuln.pen, 30 UNIT SC QHS 06/28/18 Insulin Human Lispro (Humalog) 100 Unit/1 Ml Vial, 1 UNIT SC TID, INJ 06/28/18 Isosorbide Mononitrate (Isosorbide Mononitrate ER) 60 Mg Tab, 60 MG PO DAILY 09/03/16 Calcium Polycarbophil (Fibercon) 625 Mg Tab, 625 MG PO DAILY, TAB 04/15/16 Carvedilol (Carvedilol) 12.5 Mg Tab, 12.5 MG PO BID, TAB 04/15/16 Pravastatin Sodium (Pravastatin Sodium) 40 Mg Tab, 40 MG PO DAILY, TAB 04/15/16 Spironolactone (Spironolactone) 100 Mg Tab, 100 MG PO DAILY, TAB 04/15/16 Amlodipine Besylate (Amlodipine Besylate) 2.5 Mg Tab, 5 MG PO DAILY, TAB 04/15/16 Furosemide (Lasix) 40 Mg Tab, 40 MG PO BID 06/28/13 Past Medical History Past Medical History: CMML Ischemic cardiomyopathy. CAD S/P stent. CKD stage IV. Atrophic left kidney. Prior history of polycythemia. Was apparently referred to pulmonology for HECTOR evaluation but states she was not ready to make that appointment. Asthma. Obesity. Type 2 diabetes. CHF. Hypercholesterolemia. anemia of chronic kidney disease folate deficiency, CMV IgG positive asthma, hypercholesteremia. Past Surgical History: Pacemaker with defibrillator placement December 2017. Family History: Mother - had history throat, thyroid and uterine cancers. Sister had diabetes and Lupus. Three brothers have CAD. No other history of malignancies or dyscrasias per patient. Social History: Smoking - 10 cigarettes a day since the age of 14. Quit in 2013, but commenced smoking again February 2019 about 10 cigarettes a day. Alcohol - Denies history of alcohol or recreational drug use. Review of Systems General: Reports: Normal Appetite; Denies: Chills, Fatigue, Malaise Constitutional: Reports: Fatigue Eyes: Denies: Vision change HEENT: Denies: Head Aches, Dysphagia, Sore Throat, Epistaxis Skin: Denies: Rash, Lesions, Jaundice, Bruising Pulmonary: Reports: Dyspnea (stable) Cardiovascular: Denies: Chest Pain, Palpitations, Orthopnea, Edema Gastrointestinal: Denies: Nausea, Vomiting, Diarrhea Genitourinary: Denies: Dysuria, Frequency, Incontinence Hematologic: Denies: Bruising, Petecchia Neurological: Reports: Weakness, Numbness; Denies: Change in Speech Psych: Reports: Mood Normal Physical Examination General Exam: Positive: Alert, No Acute Distress Eye Exam: Positive: PERRLA, Conjunctiva & lids normal; Negative: Sclera icteric ENT EXAM: Positive: Atraumatic, Mucous membr. moist/pink Neck Exam: Reports: Supple; Denies: JVD, Thyromegaly, Lymphadenopathy Chest Exam: Positive: Diminished (at bases), Other (core specimens bilaterally) Heart Exam: Positive: Other (soft systolic flow murmur) Abdomen Exam: Positive: Normal bowel sounds; Negative: Tenderness, Hepatospenomegaly, Mass Extremity Exam: Negative: Clubbing, Cyanosis, Edema Skin Exam: Positive: Nl turgor and temperature; Negative: Rash, Breakdown, Lesion Neuro Exam: Positive: Normal Speech, Normal Tone Psych Exam: Positive: Mental status NL Other Physical Findings Port in place without overlying cellulitis Ht / Wt Ht / Wt Height:5 Feet 6 Inches Weight: 81.500 Kg Laboratory Data Laboratory Tests Test 06/16/19 07:59 Blood Urea Nitrogen 27 MG/DL (7-18) H Creatinine 1.71 MG/DL (0.55-1.30) H Glomerular Filtration Rate 32.0 (>45) L Fasting Glucose 133 MG/DL (70-100) H Calcium Level 9.3 MG/DL (8.8-10.2) Total Bilirubin 0.9 MG/DL (0.2-1.0) Aspartate Amino Transf (AST/SGOT) 6 U/L (7-37) L Alanine Aminotransferase (ALT/SGPT) 12 U/L (12-78) Total Protein 7.0 GM/DL (6.4-8.2) Sodium Level 138 MEQ/L (136-145) Albumin 3.1 GM/DL (3.2-5.2) L Alkaline Phosphatase 76 U/L (45-117) Potassium Level 3.6 MEQ/L (3.5-5.1) Chloride Level 104 MEQ/L (98-107) Carbon Dioxide Level 28 MEQ/L (21-32) Anion Gap 6 MEQ/L (8-16) L Assessment/Plan Assessment CMML with 5% myeloblasts seen on bone marrow biopsy presently on cycle 1 decitabine day 31 with resultant pancytopenia Overall poor prognosis Plan Await results with [employer] myeloid panel to see if there are any route delivery driver mutations Patient will remain transfusion dependent for quite some time of both platelets and blood Delay red blood cell transfusion support 1 week and hemoglobin 7.2 and asymptomatic status at the present time Continue with Procrit 40,000 units today to decrease red blood cell transfusion requirement. Dose today for Hb 7.2 gm/dl Again discussed signs and symptoms of when to call us Prolonged discussion on severity of her hematological malignancy. Has reiterated back to me and understands she has a bone marrow cancer that has no cure, just treatment to hopefully improve blood counts by disease control. Treatment remain dangerous, discussed this again with patient Smoking cessation counselling administered today. Cycle #2 decitabine definitively planned the week of July 03 Again, this may be an indolent disease and given recent genetics of blood counts we may elect to observe patient in future pending kinetics of counts All of the above was relayed to the patient who was given an opportunity to ask questions that were answered to satisfaction. The patient voiced an understanding and agreed to proceed. I spent 30 minutes during this visit seeing the patient [id number] and reviewing records. More than 50% of the time was spent in direct [id number] discussion and counseling of the patient. CC TO: Primary Care Provider: Ana Paul MD Problems: (1) MDS (myelodysplastic syndrome) (2) Anemia due to stage 4 chronic kidney disease treated with erythropoietin (3) CMML (chronic myelomonocytic leukemia) (4) Myeloproliferative disease AAYUSH PERERA MD June 23, 2019 08:17
[2019-06-23 08:42] VITALS: BP 126/55
[2019-06-23 08:49] LABS: BASO # 0.1 10^3/uL (0.0-0.2); BASO % 1.1 % (0.0-1.0); EOS % 0.4 % (0.0-3.0); HEMATOCRIT 22.5 % (36.0-47.0); HEMOGLOBIN 7.2 g/dl (12.0-15.5); LYMPH # 1.7 10^3/uL (1.5-5.0); LYMPH % 30.9 % (24.0-44.0); MEAN CORPUSCULAR HEMOGLOBIN 28.2 pg (27.0-33.0); MEAN CORPUSCULAR VOLUME 88.2 fl (80.0-96.0); MONO # 0.5 10^3/uL (0.0-0.8); MONO % 9.5 % (0.0-5.0); NEUTROPHILS # 2.5 10^3/uL (1.5-8.5); NEUTROPHILS % 45.2 % (36.0-66.0); PLATELET COUNT, AUTOMATED 28 10^3/uL (150-450); RED BLOOD COUNT 2.55 10^6/uL (4.00-5.40); WHITE BLOOD COUNT 5.6 10^3/uL (4.0-10.0)
[2019-07-01 08:10] VITALS: BP 116/64
--- NOTE | 2019-07-01 08:16 | MEDONCPDOC ---
Medical Oncology Office Note Date of Service: July 01, 2019 Diagnosis/Treatment History Oncology problem list 1. CMML currently on cycle 1 decitabine day +31 2. Pancytopenia due to CMML and treatment 3. Grade 4 anemia History of present illness Patient initially evaluated and sent to us for pancytopenia. Bone marrow biopsy and aspiration was performed 03/20/2019 which revealed chronic myelomonocytic leukemia. Patient underwent induction decitabine. CMML- diagnosed via BM bx 03/2019: - 03/20/19 - Leukoerythroblastic anemia- Hgb 7-range, thrombocytopenia 40s range, WBC in the 20s range with left shift and nucleated RBCs, scattered circulating blasts. Peripheral blood flow cytometry - no acute leukemia, no NHL. - 04/03/19 - BM Bx MDS/MPD at [facility]- Mild increased bone marrow blasts (5% by CD34 IHC), favor CMML - 1. FISH - negative t(9;22) BCR/ABL-1 gene rearrangement - no evidence of CML. Karyotype - mononucleosis 75 and 7, FISH: +deletion 17p supporting above diagnosis, at [facility]. - 05/09/19- Cycle 1 Day 1 Decitabine Interval History Patient received 2 units of red cells on Thursday Patient clinically stable Afebrile Ongoing tobacco abuse noted with counseling given Proceed with cycle #2 decitabine 20 mg/m equals 40 mg IV daily Thursday to Thursday We'll see the patient back next in the office with type and cross 2 units red cells and planned blood and platelet transfusion next Thursday, July 07 Patient understands clearly that transfusion requirement will increase in the short-term Goal therapy is for transfusion independence Can take more than 3 months to see if medication effective Neutropenic precautions discussed with patient again Allergies Coded Allergies: losartan (Verified Allergy, Severe, throat swelling, 06/28/18) Home Medications Reported Medications Folic Acid (Folic Acid) 1 Mg Tablet, 1 MG PO DAILY DINNER 06/24/19 Amlodipine Besylate (Amlodipine Besylate) 5 Mg Tablet, 5 MG PO DAILY DINNER 06/24/19 Sodium Chloride (Nasal [place]) 44 Ml [place], 2 SPRAYS NA Q2H PRN for NASAL CONGESTION 06/24/19 Umeclidinium [place] (Incruse Ellipta) 62.5 Mcg Blst.w.dev, 1 PUFF INH DAILY 06/28/18 Insulin Glargine,Hum.rec.anlog (Basaglar Kwikpen U-100) 100 Unit/1 Ml Insuln.pen, 30 UNIT SC QHS 06/28/18 Insulin Human Lispro (Humalog) 100 Unit/1 Ml Vial, 1 DOSE SC TID SLIDING SCALE 06/28/18 Isosorbide Mononitrate (Isosorbide Mononitrate ER) 60 Mg Tab, 60 MG PO DAILY DINNER 09/03/16 Calcium Polycarbophil (Fibercon) 625 Mg Tab, 625 MG PO DAILY DINNER 04/15/16 Carvedilol (Carvedilol) 12.5 Mg Tab, 12.5 MG PO BID, TAB 04/15/16 Pravastatin Sodium (Pravastatin Sodium) 40 Mg Tab, 40 MG PO DAILY DINNER 04/15/16 Furosemide (Lasix) 40 Mg Tab, 40 MG PO BID AM AND MID AFTERNOON 06/28/13 Discontinued Reported Medications Folic Acid (Folic Acid) 0.8 Mg Capsule, 0.8 MG PO BID for 30 Days, #60 CAP 06/24/19 Albuterol Sulfate (Proair Hfa) 8.5 Gm Hfa.aer.ad, 2 PUFF INH Q4-6HP PRN for wheezing 04/03/19 Spironolactone (Spironolactone) 100 Mg Tab, 100 MG PO DAILY, TAB 04/15/16 Amlodipine Besylate (Amlodipine Besylate) 2.5 Mg Tab, 5 MG PO DAILY, TAB 04/15/16 Discontinued Scripts Folic Acid (Folic Acid) 1 Mg Tablet, 1 MG PO DAILY, #90 TAB 1 Refill Prov:LUCERO STODDARD MD 04/11/19 Past Medical History Past Medical History: CMML Ischemic cardiomyopathy. CAD S/P stent. CKD stage IV. Atrophic left kidney. Prior history of polycythemia. Was apparently referred to pulmonology for HECTOR evaluation but states she was not ready to make that appointment. Asthma. Obesity. Type 2 diabetes. CHF. Hypercholesterolemia. anemia of chronic kidney disease folate deficiency, CMV IgG positive asthma, hypercholesteremia. Past Surgical History: Pacemaker with defibrillator placement December 2017. Family History: Mother - had history throat, thyroid and uterine cancers. Sister had diabetes and Lupus. Three brothers have CAD. No other history of malignancies or dyscrasias per patient. Social History: Smoking - 10 cigarettes a day since the age of 14. Quit in 2013, but commenced smoking again February 2019 about 10 cigarettes a day. Alcohol - Denies history of alcohol or recreational drug use. Review of Systems General: Reports: Normal Appetite; Denies: Chills, Fatigue, Malaise Constitutional: Reports: Fatigue Eyes: Denies: Vision change HEENT: Denies: Head Aches, Dysphagia, Sore Throat, Epistaxis Skin: Denies: Rash, Lesions, Jaundice, Bruising Pulmonary: Reports: Dyspnea (stable with stable smoker's cough) Cardiovascular: Denies: Chest Pain, Palpitations, Orthopnea, Edema Gastrointestinal: Denies: Nausea, Vomiting, Diarrhea Genitourinary: Denies: Dysuria, Frequency, Incontinence Hematologic: Denies: Bruising, Petecchia Neurological: Reports: Weakness, Numbness; Denies: Change in Speech Psych: Reports: Mood Normal Physical Examination General Exam: Positive: Alert, No Acute Distress Eye Exam: Positive: PERRLA, Conjunctiva & lids normal; Negative: Sclera icteric ENT EXAM: Positive: Atraumatic, Mucous membr. moist/pink Neck Exam: Reports: Supple; Denies: JVD, Thyromegaly, Lymphadenopathy Chest Exam: Positive: Other (" the sacral breath sounds bilaterally) Heart Exam: Positive: Rate Normal Abdomen Exam: Positive: Normal bowel sounds; Negative: Tenderness, Hepatospenomegaly, Mass Extremity Exam: Negative: Clubbing, Cyanosis, Edema Skin Exam: Positive: Nl turgor and temperature; Negative: Rash, Breakdown, Lesion Neuro Exam: Positive: Normal Speech, Normal Tone Psych Exam: Positive: Mental status NL Ht / Wt Ht / Wt Height:5 Feet 6 Inches Weight: 78.200 Kg Vital Signs Vital Signs Date Time Temp Pulse Resp B/P (MAP) Pulse Ox O2 Delivery O2 Flow Rate FiO2 07/01/19 08:10 97.7 64 16 116/64 (81) 100 Room Air Laboratory Data Laboratory Tests Test 06/24/19 16:57 06/25/19 04:41 Blood Urea Nitrogen 26 MG/DL (7-18) H 30 MG/DL (7-18) H Creatinine 1.76 MG/DL (0.55-1.30) H 1.66 MG/DL (0.55-1.30) H Glomerular Filtration Rate 30.9 (>45) L 33.1 (>45) L Fasting Glucose 123 MG/DL (70-100) H 149 MG/DL (70-100) H Calcium Level 9.0 MG/DL (8.8-10.2) 9.1 MG/DL (8.8-10.2) Total Bilirubin 0.7 MG/DL (0.2-1.0) Aspartate Amino Transf (AST/SGOT) 8 U/L (7-37) Alanine Aminotransferase (ALT/SGPT) 12 U/L (12-78) Total Protein 6.9 GM/DL (6.4-8.2) Sodium Level 136 MEQ/L (136-145) 136 MEQ/L (136-145) Albumin 3.4 GM/DL (3.2-5.2) Alkaline Phosphatase 84 U/L (45-117) Potassium Level 4.0 MEQ/L (3.5-5.1) 4.3 MEQ/L (3.5-5.1) Thyroid Stimulating Hormone (TSH) 4.520 uIU/ML (0.358-3.740) Chloride Level 104 MEQ/L (98-107) 104 MEQ/L (98-107) Carbon Dioxide Level 24 MEQ/L (21-32) 24 MEQ/L (21-32) Anion Gap 8 MEQ/L (8-16) 8 MEQ/L (8-16) Magnesium Level 2.4 MG/DL (1.8-2.4) 2.3 MG/DL (1.8-2.4) Assessment/Plan Assessment CMML with 5% myeloblasts seen on bone marrow biopsy presently on cycle 1 decitabine day 38 with resultant pancytopenia Overall poor prognosis Plan Still Await results with [employer] myeloid panel to see if there are any highway truck driver mutations. This was sensory weeks ago and should have results and asked 2 weeks Patient will remain transfusion dependent for quite some time of both platelets and blood Proceed with cycle #2 decitabine beginning July 03 through the Continue with Procrit 40,000 units today to decrease red blood cell transfusion requirement. Dose today for Hb 9.0 gm/dl Again discussed signs and symptoms of when to call us Prolonged discussion on severity of her hematological malignancy. Has reiterated back to me and understands she has a bone marrow cancer that has no cure, just treatment to hopefully improve blood counts by disease control. Treatment remain dangerous, discussed this again with patient Smoking cessation counselling administered today. All of the above was relayed to the patient who was given an opportunity to ask questions that were answered to satisfaction. The patient voiced an understanding and agreed to proceed. I spent 28 minutes during this visit seeing the patient [id number] and r eviewing records. More than 50% of the time was spent in direct [id number] discussion and counseling of the patient. CC TO: Primary Care Provider: Ana Paul MD Problems: (1) Anemia due to stage 4 chronic kidney disease treated with erythropoietin (2) MDS (myelodysplastic syndrome) (3) CMML (chronic myelomonocytic leukemia) (4) Myeloproliferative disease AAYUSH PERERA MD July 01, 2019 08:16
[2019-07-01 08:33] LABS: BASO # 0.1 10^3/uL (0.0-0.2); EOS % 0.2 % (0.0-3.0); HEMATOCRIT 27.5 % (36.0-47.0); LYMPH # 1.3 10^3/uL (1.5-5.0); LYMPH % 30.3 % (24.0-44.0); MEAN CORPUSCULAR HEMOGLOBIN 28.6 pg (27.0-33.0); MEAN CORPUSCULAR HGB CONC 32.7 g/dl (32.0-36.5); MEAN CORPUSCULAR VOLUME 87.3 fl (80.0-96.0); MONO # 0.9 10^3/uL (0.0-0.8); MONO % 19.9 % (0.0-5.0); NEUTROPHILS # 1.8 10^3/uL (1.5-8.5); NEUTROPHILS % 39.9 % (36.0-66.0); RED BLOOD COUNT 3.15 10^6/uL (4.00-5.40); WHITE BLOOD COUNT 4.4 10^3/uL (4.0-10.0)
[2019-07-01 08:34] LABS: PLATELET COUNT, AUTOMATED 21 10^3/uL (150-450)
[2019-07-01 08:59] LABS: ALBUMIN 3.5 GM/DL (3.2-5.2); BILIRUBIN,TOTAL 0.7 MG/DL (0.2-1.0); CALCIUM LEVEL 9.5 MG/DL (8.8-10.2); CREATININE FOR GFR 2.28 MG/DL (0.55-1.30); TOTAL PROTEIN 7.5 GM/DL (6.4-8.2)
[2019-07-01 09:01] LABS: FERRITIN 1040 NG/ML (8-252); IRON (FE) 175 UG/DL (50-170); LDH LACTATE DEHYDROGENASE 467 U/L (84-246)
[2019-07-04 10:13] VITALS: BP 89/53
[2019-07-04 10:34] LABS: BASO # 0.1 10^3/uL (0.0-0.2); BASO % 0.9 % (0.0-1.0); HEMATOCRIT 25.1 % (36.0-47.0); HEMOGLOBIN 8.3 g/dl (12.0-15.5); LYMPH # 1.6 10^3/uL (1.5-5.0); MEAN CORPUSCULAR HEMOGLOBIN 28.9 pg (27.0-33.0); MEAN CORPUSCULAR HGB CONC 33.1 g/dl (32.0-36.5); MEAN CORPUSCULAR VOLUME 87.5 fl (80.0-96.0); MONO # 1.3 10^3/uL (0.0-0.8); MONO % 21.6 % (0.0-5.0); NEUTROPHILS # 2.3 10^3/uL (1.5-8.5); NEUTROPHILS % 40.1 % (36.0-66.0); RED BLOOD COUNT 2.87 10^6/uL (4.00-5.40); WHITE BLOOD COUNT 5.8 10^3/uL (4.0-10.0)
[2019-07-04 10:36] LABS: PLATELET COUNT, AUTOMATED 21 10^3/uL (150-450)
[2019-07-04 11:03] LABS: ALBUMIN 3.5 GM/DL (3.2-5.2); BILIRUBIN,TOTAL 0.7 MG/DL (0.2-1.0); CALCIUM LEVEL 9.4 MG/DL (8.8-10.2); CREATININE FOR GFR 2.23 MG/DL (0.55-1.30); GLOMERULAR FILTRATION RATE 23.6 (>45); POTASSIUM SERUM 3.8 MEQ/L (3.5-5.1); TOTAL PROTEIN 7.3 GM/DL (6.4-8.2)
[2019-07-05 09:52] VITALS: BP 90/48
--- NOTE | 2019-07-05 10:10 | ONC.PHACK ---
CHEMO ADMIN CHECKLIST Order Contains Pt ID: Name, Order on Chemo Order Form?: Yes Order Form Includes ALL: Correct Tx Day, Correct Date, Correct Cycle Number Pt ID on Order form Matches: Pt ID on PHA Label Med on Chemo OrderForm Matches: PHA Label, Med Used for Preparation [facility] July 05, 2019 10:10
[2019-07-06 11:34] VITALS: BP 97/47
--- NOTE | 2019-07-06 11:48 | ONC.PHACK ---
CHEMO ADMIN CHECKLIST Order Contains Pt ID: Name, Order on Chemo Order Form?: Yes Order Form Includes ALL: Correct Tx Day, Correct Date, Correct Cycle Number Pt ID on Order form Matches: Pt ID on PHA Label Med on Chemo OrderForm Matches: PHA Label, Med Used for Preparation [facility] July 06, 2019 11:48
[2019-07-06 13:33] VITALS: BP 120/69
[2019-07-07 09:24] VITALS: BP 103/59
[2019-07-07 09:41] LABS: APPEARANCE, URINE HAZY (CLEAR); BACTERIA, URINE AUTO NEGATIVE (NEGATIVE); BILIRUBIN, URINE AUTO NEGATIVE (NEGATIVE); BLOOD, URINE BLOOD NEGATIVE (NEGATIVE); COLOR, URINE YELLOW (YELLOW); GLUCOSE, URINE (UA) AUTO NEGATIVE (NEGATIVE); KETONE, URINE AUTO NEGATIVE (NEGATIVE); LEUKOCYTE ESTERASE, URINE AUTO NEGATIVE (NEGATIVE); NITRITE, URINE AUTO NEGATIVE (NEGATIVE); PROTEIN, URINE AUTO NEGATIVE (NEGATIVE); RBC, URINE AUTO 1 /HPF (0-3); SPECIFIC GRAVITY URINE AUTO 1.014 (1.002-1.035); SQUAMOUS EPITHELIAL CELL UR AU 6 /HPF (0-6); UROBILINOGEN, URINE AUTO 0.2 mg/dL (0.0-2.0); WBC, URINE AUTO 1 /HPF (0-3)
[2019-07-07 09:56] LABS: BASO # 0.1 10^3/uL (0.0-0.2); HEMATOCRIT 22.7 % (36.0-47.0); HEMOGLOBIN 7.4 g/dl (12.0-15.5); LYMPH # 1.4 10^3/uL (1.5-5.0); LYMPH % 27.8 % (24.0-44.0); MEAN CORPUSCULAR HEMOGLOBIN 28.7 pg (27.0-33.0); MEAN CORPUSCULAR HGB CONC 32.6 g/dl (32.0-36.5); MONO # 0.6 10^3/uL (0.0-0.8); MONO % 12.4 % (0.0-5.0); NEUTROPHILS # 2.5 10^3/uL (1.5-8.5); RED BLOOD COUNT 2.58 10^6/uL (4.00-5.40); WHITE BLOOD COUNT 4.9 10^3/uL (4.0-10.0)
[2019-07-07 09:57] LABS: PLATELET COUNT, AUTOMATED 22 10^3/uL (150-450)
[2019-07-07 10:02] LABS: ALBUMIN 3.3 GM/DL (3.2-5.2); BILIRUBIN,TOTAL 0.6 MG/DL (0.2-1.0); CALCIUM LEVEL 9.1 MG/DL (8.8-10.2); CREATININE FOR GFR 2.13 MG/DL (0.55-1.30); GLOMERULAR FILTRATION RATE 24.8 (>45); POTASSIUM SERUM 4.1 MEQ/L (3.5-5.1)
--- NOTE | 2019-07-07 10:09 | MEDONCPDOC ---
Medical Oncology Office Note Date of Service: July 07, 2019 Diagnosis/Treatment History Oncology problem list 1. CMML currently on cycle 2 decitabine day +4 2. Pancytopenia due to CMML and treatment 3. Grade 3 symptomatic anemia History of present illness Patient initially evaluated and sent to us for pancytopenia. Bone marrow biopsy and aspiration was performed 03/20/2019 which revealed chronic myelomonocytic leukemia. Patient underwent induction decitabine. CMML- diagnosed via BM bx 03/2019: - 03/20/19 - Leukoerythroblastic anemia- Hgb 7-range, thrombocytopenia 40s range, WBC in the 20s range with left shift and nucleated RBCs, scattered circulating blasts. Peripheral blood flow cytometry - no acute leukemia, no NHL. - 04/03/19 - BM Bx MDS/MPD at [facility]- Mild increased bone marrow blasts (5% by CD34 IHC), favor CMML - 1. FISH - negative t(9;22) BCR/ABL-1 gene rearrangement - no evidence of CML. Karyotype - mononucleosis 75 and 7, FISH: +deletion 17p supporting above diagnosis, at [facility]. - 05/09/19- Cycle 1 Day 1 Decitabine Interval History Doing well with cycle 2 Plan 2 units PRBC for symptomatic anemia with expected drop Plan on platelet and PRBC transfusion in 1 weeks time Neutropenic precautions reviewed No fevers, chills, SOB or cough Allergies Coded Allergies: losartan (Verified Allergy, Severe, throat swelling, 06/28/18) Home Medications Reported Medications Folic Acid (Folic Acid) 1 Mg Tablet, 1 MG PO DAILY DINNER 06/24/19 Amlodipine Besylate (Amlodipine Besylate) 5 Mg Tablet, 5 MG PO DAILY DINNER 06/24/19 Sodium Chloride (Nasal [place]) 44 Ml [place], 2 SPRAYS NA Q2H PRN for NASAL CONGESTION 06/24/19 Umeclidinium [place] (Incruse Ellipta) 62.5 Mcg Blst.w.dev, 1 PUFF INH DAILY 06/28/18 Insulin Glargine,Hum.rec.anlog (Basaglar Kwikpen U-100) 100 Unit/1 Ml Insuln.pen, 30 UNIT SC QHS 06/28/18 Insulin Human Lispro (Humalog) 100 Unit/1 Ml Vial, 1 DOSE SC TID SLIDING SCALE 06/28/18 Isosorbide Mononitrate (Isosorbide Mononitrate ER) 60 Mg Tab, 60 MG PO DAILY DINNER 09/03/16 Calcium Polycarbophil (Fibercon) 625 Mg Tab, 625 MG PO DAILY DINNER 04/15/16 Carvedilol (Carvedilol) 12.5 Mg Tab, 12.5 MG PO BID, TAB 04/15/16 Pravastatin Sodium (Pravastatin Sodium) 40 Mg Tab, 40 MG PO DAILY DINNER 04/15/16 Furosemide (Lasix) 40 Mg Tab, 40 MG PO BID AM AND MID AFTERNOON 06/28/13 Past Medical History Past Medical History: CMML Ischemic cardiomyopathy. CAD S/P stent. CKD stage IV. Atrophic left kidney. Prior history of polycythemia. Was apparently referred to pulmonology for HECTOR evaluation but states she was not ready to make that appointment. Asthma. Obesity. Type 2 diabetes. CHF. Hypercholesterolemia. anemia of chronic kidney disease folate deficiency, CMV IgG positive asthma, hypercholesteremia. Past Surgical History: Pacemaker with defibrillator placement December 2017. Family History: Mother - had history throat, thyroid and uterine cancers. Sister had diabetes and Lupus. Three brothers have CAD. No other history of malignancies or dyscrasias per patient. Social History: Smoking - 10 cigarettes a day since the age of 14. Quit in 2013, but commenced smoking again February 2019 about 10 cigarettes a day. Alcohol - Denies history of alcohol or recreational drug use. Review of Systems General: Reports: Normal Appetite; Denies: Chills, Fatigue, Malaise Constitutional: Reports: Fatigue Eyes: Denies: Vision change HEENT: Denies: Head Aches, Dysphagia, Sore Throat, Epistaxis Skin: Denies: Rash, Lesions, Jaundice, Bruising Pulmonary: Reports: Cough (smokers cough unchanged) Cardiovascular: Denies: Chest Pain, Palpitations, Orthopnea, Edema Gastrointestinal: Denies: Nausea, Vomiting, Diarrhea Genitourinary: Denies: Dysuria, Frequency, Incontinence Hematologic: Denies: Bruising, Petecchia Neurological: Reports: Weakness, Numbness; Denies: Change in Speech Psych: Reports: Mood Normal Physical Examination General Exam: Positive: Alert, No Acute Distress Eye Exam: Positive: PERRLA, Conjunctiva & lids normal; Negative: Sclera icteric ENT EXAM: Positive: Atraumatic, Mucous membr. moist/pink Neck Exam: Reports: Supple; Denies: JVD, Thyromegaly, Lymphadenopathy Chest Exam: Positive: Clear to auscultation, Normal air movement Heart Exam: Positive: Rate Normal Abdomen Exam: Positive: Normal bowel sounds; Negative: Tenderness, Hepatospenomegaly, Mass Extremity Exam: Negative: Clubbing, Cyanosis, Edema Skin Exam: Positive: Other skin issue (ecchymosis noted) Neuro Exam: Positive: Normal Speech, Normal Tone Psych Exam: Positive: Mental status NL Ht / Wt Ht / Wt Height:5 Feet 6 Inches Weight: 79.300 Kg Vital Signs Vital Signs Date Time Temp Pulse Resp B/P (MAP) Pulse Ox O2 Delivery O2 Flow Rate FiO2 07/07/19 09:24 97.9 63 16 103/59 (74) 100 Room Air Laboratory Data Laboratory Tests Test 07/01/19 08:15 07/04/19 09:57 07/07/19 09:06 Blood Urea Nitrogen 55 MG/DL (7-18) H 55 MG/DL (7-18) H 49 MG/DL (7-18) H Creatinine 2.28 MG/DL (0.55-1.30) H 2.23 MG/DL (0.55-1.30) H 2.13 MG/DL (0.55-1.30) H Glomerular Filtration Rate 23.0 (>45) L 23.6 (>45) L 24.8 (>45) L Fasting Glucose 131 MG/DL (70-100) H 128 MG/DL (70-100) H 179 MG/DL (70-100) H Calcium Level 9.5 MG/DL (8.8-10.2) 9.4 MG/DL (8.8-10.2) 9.1 MG/DL (8.8-10.2) Total Bilirubin 0.7 MG/DL (0.2-1.0) 0.7 MG/DL (0.2-1.0) 0.6 MG/DL (0.2-1.0) Aspartate Amino Transf (AST/SGOT) 3 U/L (7-37) L 8 U/L (7-37) 6 U/L (7-37) L Alanine Aminotransferase (ALT/SGPT) 12 U/L (12-78) 12 U/L (12-78) 12 U/L (12-78) Total Protein 7.5 GM/DL (6.4-8.2) 7.3 GM/DL (6.4-8.2) 7.0 GM/DL (6.4-8.2) Sodium Level 136 MEQ/L (136-145) 134 MEQ/L (136-145) L 135 MEQ/L (136-145) L Albumin 3.5 GM/DL (3.2-5.2) 3.5 GM/DL (3.2-5.2) 3.3 GM/DL (3.2-5.2) Alkaline Phosphatase 73 U/L (45-117) 78 U/L (45-117) 81 U/L (45-117) Potassium Level 4.0 MEQ/L (3.5-5.1) 3.8 MEQ/L (3.5-5.1) 4.1 MEQ/L (3.5-5.1) Chloride Level 100 MEQ/L (98-107) 99 MEQ/L (98-107) 102 MEQ/L (98-107) Carbon Dioxide Level 29 MEQ/L (21-32) 27 MEQ/L (21-32) 26 MEQ/L (21-32) Anion Gap 7 MEQ/L (8-16) L 8 MEQ/L (8-16) 7 MEQ/L (8-16) L Laboratory Tests 07/07/19 09:06 Assessment/Plan Assessment CMML with 5% myeloblasts seen on bone marrow biopsy presently on cycle 2 decitabine day 4 with resultant pancytopenia Overall poor prognosis Plan Still Await results with [employer] myeloid panel to see if there are any commercial driver's license driver mutations. Patient will remain transfusion dependent for quite some time of both platelets and blood Proceed with cycle #2 decitabine day 4 and 5 20mg/m2 Continue with Procrit 40,000 units today to decrease red blood cell transfusion requirement. Dose today for Hb 7.4 gm/dl 2 units PRBC ordered for today or tomorrow Again discussed signs and symptoms of when to call us Prolonged discussion on severity of her hematological malignancy. Has reiterated back to me and understands she has a bone marrow cancer that has no cure, just treatment to hopefully improve blood counts by disease control. Treatment remain dangerous, discussed this again with patient today. She will not hesitate to call with issues. Smoking cessation counselling administered today. All of the above was relayed to the patient who was given an opportunity to ask questions that were answered to satisfaction. The patient voiced an understanding and agreed to proceed. I spent 26 minutes during this visit seeing the patient [id number] and reviewing records. More than 50% of the time was spent in direct [id number] discussion and counseling of the patient. CC TO: Primary Care Provider: Ana Paul MD Problems: (1) Anemia due to stage 4 chronic kidney disease treated with erythropoietin (2) Symptomatic anemia (3) CMML (chronic myelomonocytic leukemia) (4) MDS (myelodysplastic syndrome) (5) Myeloproliferative disease AAYUSH PERERA MD July 07, 2019 10:09
--- NOTE | 2019-07-07 10:39 | ONC.PHACK ---
CHEMO ADMIN CHECKLIST Order Contains Pt ID: Name, Order on Chemo Order Form?: Yes Order Form Includes ALL: Correct Tx Day, Correct Date, Correct Cycle Number Pt ID on Order form Matches: Pt ID on PHA Label Med on Chemo OrderForm Matches: PHA Label, Med Used for Preparation [facility] July 07, 2019 10:39
[2019-07-07] MEDS: SODIUM CHLORIDE 0.9% INJ 10 ML SYR IV PRN ×2 (12:23→14:29)
[2019-07-07 12:43] VITALS: BP 96/52
[2019-07-07 13:03] VITALS: BP 99/47
[2019-07-07 13:48] VITALS: BP 97/53
[2019-07-07 14:25] VITALS: BP 109/57
[2019-07-08 10:23] VITALS: BP 112/57
[2019-07-08 10:43] VITALS: BP 102/56
[2019-07-08 11:30] VITALS: BP 101/58
[2019-07-08 12:10] VITALS: BP 105/51
[2019-07-08 13:10] VITALS: BP 101/56
[2019-07-08] MEDS: SODIUM CHLORIDE 0.9% INJ 10 ML SYR IV PRN (13:21)
--- NOTE | 2019-07-08 13:39 | ONC.PHACK ---
CHEMO ADMIN CHECKLIST Order Contains Pt ID: Name, Order on Chemo Order Form?: Yes Order Form Includes ALL: Correct Tx Day, Correct Date, Correct Cycle Number Pt ID on Order form Matches: Pt ID on PHA Label Med on Chemo OrderForm Matches: PHA Label, Med Used for Preparation [facility] July 08, 2019 13:39
[2019-07-15] VITALS (12 sets, daily range): BP systolic 98–124; BP diastolic 52–64
--- NOTE | 2019-07-15 08:11 | MEDONCPDOC ---
Medical Oncology Office Note Date of Service: July 15, 2019 Diagnosis/Treatment History Oncology problem list 1. CMML currently on cycle 2 decitabine day +12 2. Pancytopenia due to CMML and treatment 3. Grade 2 symptomatic anemia 4. Grade 4 thrombocytopenia HISTORY OF PRESENT ILLNESS Patient initially evaluated and sent to us for pancytopenia. Bone marrow biopsy and aspiration was performed 03/20/2019 which revealed chronic myelomonocytic leukemia. Patient underwent induction decitabine. CMML- diagnosed via BM bx 03/2019: - 03/20/19 - Leukoerythroblastic anemia- Hgb 7-range, thrombocytopenia 40s range, WBC in the 20s range with left shift and nucleated RBCs, scattered circulating blasts. Peripheral blood flow cytometry - no acute leukemia, no NHL. - 04/03/19 - BM Bx MDS/MPD at [facility]- Mild increased bone marrow blasts (5% by CD3 4 IHC), favor CMML - 1. FISH - negative t(9;22) BCR/ABL-1 gene rearrangement - no evidence of CML. Karyotype - mononucleosis 75 and 7, FISH: +deletion 17p supporting above diagnosis, at [facility]. - 05/09/19- Cycle 1 Day 1 Decitabine - 07/04/19- Cycle 2 Day 1 Decitabine Interval History Doing well with cycle 2 Today day +12 Proceed with platelet transfusion for platelet count 8 Plan on 2 units PRBC for symptomatic anemia with expected drop next week Neutropenic precautions reviewed No fevers, chills, SOB or cough Patient has an aunt condition which is helping her breathing Still smoking Looking Cessation counseling given Allergies Coded Allergies: losartan (Verified Allergy, Severe, throat swelling, 06/28/18) Home Medications Reported Medications Folic Acid (Folic Acid) 1 Mg Tablet, 1 MG PO DAILY DINNER 06/24/19 Amlodipine Besylate (Amlodipine Besylate) 5 Mg Tablet, 5 MG PO DAILY DINNER 06/24/19 Sodium Chloride (Nasal [place]) 44 Ml [place], 2 SPRAYS NA Q2H PRN for NASAL CONGESTION 06/24/19 Umeclidinium [place] (Incruse Ellipta) 62.5 Mcg Blst.w.dev, 1 PUFF INH DAILY 06/28/18 Insulin Glargine,Hum.rec.anlog (Basaglar Kwikpen U-100) 100 Unit/1 Ml Insuln.pen, 30 UNIT SC QHS 06/28/18 Insulin Human Lispro (Humalog) 100 Unit/1 Ml Vial, 1 DOSE SC TID SLIDING SCALE 06/28/18 Isosorbide Mononitrate (Isosorbide Mononitrate ER) 60 Mg Tab, 60 MG PO DAILY DINNER 09/03/16 Calcium Polycarbophil (Fibercon) 625 Mg Tab, 625 MG PO DAILY DINNER 04/15/16 Carvedilol (Carvedilol) 12.5 Mg Tab, 12.5 MG PO BID, TAB 04/15/16 Pravastatin Sodium (Pravastatin Sodium) 40 Mg Tab, 40 MG PO DAILY DINNER 04/15/16 Furosemide (Lasix) 40 Mg Tab, 40 MG PO BID AM AND MID AFTERNOON 06/28/13 Past Medical History Past Medical History: CMML Ischemic cardiomyopathy. CAD S/P stent. CKD stage IV. Atrophic left kidney. Prior history of polycythemia. Was apparently referred to pulmonology for HECTOR evaluation but states she was not ready to make that appointment. Asthma. Obesity. Type 2 diabetes. CHF. Hypercholesterolemia. anemia of chronic kidney disease folate deficiency, CMV IgG positive asthma, hypercholesteremia. Past Surgical History: Pacemaker with defibrillator placement December 2017. Family History: Mother - had history throat, thyroid and uterine cancers. Sister had diabetes and Lupus. Three brothers have CAD. No other history of malignancies or dyscrasias per patient. Social History: Smoking - 10 cigarettes a day since the age of 14. Quit in 2013, but commenced smoking again February 2019 about 10 cigarettes a day. Alcohol - Denies history of alcohol or recreational drug use. Review of Systems General: Reports: Normal Appetite; Denies: Chills, Fatigue, Malaise Constitutional: Reports: Fatigue; Denies: Chills, Weight Loss Eyes: Denies: Vision change HEENT: Denies: Head Aches, Dysphagia, Sore Throat, Epistaxis Skin: Reports: Bruising, Other (petechiae noted on arms and legs) Pulmonary: Reports: Dyspnea, Cough Cardiovascular: Denies: Chest Pain, Palpitations, Orthopnea, Edema Gastrointestinal: Denies: Nausea, Vomiting, Diarrhea Genitourinary: Denies: Dysuria, Frequency, Incontinence Hematologic: Denies: Bruising, Petecchia Neurological: Reports: Weakness, Numbness; Denies: Change in Speech Psych: Reports: Mood Normal Physical Examination General Exam: Positive: Alert, No Acute Distress Eye Exam: Positive: PERRLA, Conjunctiva & lids normal; Negative: Sclera icteric ENT EXAM: Positive: Atraumatic, Mucous membr. moist/pink Neck Exam: Reports: Supple; Denies: JVD, Thyromegaly, Lymphadenopathy Chest Exam: Positive: Clear to auscultation, Normal air movement, Other (coarse breath sounds bilaterally) Heart Exam: Positive: Rate Normal Abdomen Exam: Positive: Normal bowel sounds; Negative: Tenderness, Hepatospenomegaly, Mass Extremity Exam: Negative: Clubbing, Cyanosis, Edema Skin Exam: Positive: Nl turgor and temperature; Negative: Rash, Breakdown, Lesion Neuro Exam: Positive: Normal Speech, Normal Tone Psych Exam: Positive: Mental status NL Ht / Wt Ht / Wt Height:5 Feet 6 Inches Weight: 79.300 Kg Vital Signs Vital Sign - Last 24 Hours 07/15/19 08:06 Temp 97.8 Pulse 62 Resp 16 B/P (MAP) 110/64 (79) Pulse Ox 99 O2 Delivery Room Air Laboratory Data Laboratory Tests Test 07/15/19 07:55 Blood Urea Nitrogen 41 MG/DL (7-18) H Creatinine 1.74 MG/DL (0.55-1.30) H Glomerular Filtration Rate 31.4 (>45) L Fasting Glucose 87 MG/DL (70-100) Calcium Level 9.5 MG/DL (8.8-10.2) Total Bilirubin 0.6 MG/DL (0.2-1.0) Aspartate Amino Transf (AST/SGOT) 6 U/L (7-37) L Alanine Aminotransferase (ALT/SGPT) 13 U/L (12-78) Total Protein 6.9 GM/DL (6.4-8.2) Sodium Level 139 MEQ/L (136-145) Albumin 3.2 GM/DL (3.2-5.2) Alkaline Phosphatase 83 U/L (45-117) Potassium Level 4.0 MEQ/L (3.5-5.1) Chloride Level 104 MEQ/L (98-107) Carbon Dioxide Level 25 MEQ/L (21-32) Anion Gap 10 MEQ/L (8-16) Laboratory Tests 07/15/19 07:55 Laboratory Tests Test 07/15/19 07:55 Assessment/Plan Assessment CMML with 5% myeloblasts seen on bone marrow biopsy presently on cycle 2 decitabine day 12 with resultant pancytopenia Overall poor prognosis Plan Still Await results with [facility] myeloid panel to see if there are any jinriksha driver mutations. Patient will remain transfusion dependent for quite some time of both platelets and blood Continue with Procrit 40,000 units today to decrease red blood cell transfusion requirement. Dose today for Hb 7.9 gm/dl 2 units PRBC ordered for today 1 unit of platelets today Again discussed signs and symptoms of when to call us Prolonged discussion on severity of her hematological malignancy. Has reiterated back to me and understands she has a bone marrow cancer that has no cure, just treatment to hopefully improve blood counts by disease control. Treatment remain dangerous, discussed this again with patient today. She will not hesitate to call with issues. Smoking cessation counselling administered today. All of the above was relayed to the patient who was given an opportunity to ask questions that were answered to satisfaction. The patient voiced an understanding and agreed to proceed. I spent 28 minutes during this visit seeing the patient [id number] and reviewing records. More than 50% of the time was spent in direct [id number] discussion and counseling of the patient. CC TO: Primary Care Provider: Ana Paul MD Problems: (1) Anemia due to stage 4 chronic kidney disease treated with erythropoietin (2) MDS (myelodysplastic syndrome) (3) CMML (chronic myelomonocytic leukemia) (4) Myeloproliferative disease AAYUSH PERERA MD July 15, 2019 08:11
[2019-07-15 08:14] LABS: BASO % 1.1 % (0.0-1.0); HEMATOCRIT 23.8 % (36.0-47.0); HEMOGLOBIN 7.9 g/dl (12.0-15.5); LYMPH # 0.8 10^3/uL (1.5-5.0); LYMPH % 42.2 % (24.0-44.0); MEAN CORPUSCULAR HGB CONC 33.2 g/dl (32.0-36.5); MEAN CORPUSCULAR VOLUME 87.5 fl (80.0-96.0); MONO # 0.1 10^3/uL (0.0-0.8); NEUTROPHILS % 48.1 % (36.0-66.0); RED BLOOD COUNT 2.72 10^6/uL (4.00-5.40); WHITE BLOOD COUNT 1.9 10^3/uL (4.0-10.0)
[2019-07-15 08:51] LABS: ALBUMIN 3.2 GM/DL (3.2-5.2); BILIRUBIN,TOTAL 0.6 MG/DL (0.2-1.0); CALCIUM LEVEL 9.5 MG/DL (8.8-10.2); CREATININE FOR GFR 1.74 MG/DL (0.55-1.30); GLOMERULAR FILTRATION RATE 31.4 (>45); TOTAL PROTEIN 6.9 GM/DL (6.4-8.2)
[2019-07-15 09:09] LABS: NEUTROPHILS # 0.9 10^3/uL (1.5-8.5); PLATELET COUNT, AUTOMATED 8 10^3/uL (150-450)
--- NOTE | 2019-07-20 08:40 | MEDONCPDOC ---
Medical Oncology Office Note Date of Service: Jul 20, 2019 Diagnosis/Treatment History Oncology problem list 1. CMML currently on cycle 2 decitabine day +17 2. Pancytopenia due to CMML and treatment 3. Grade 2 symptomatic anemia 4. Grade 4 thrombocytopenia HISTORY OF PRESENT ILLNESS Patient initially evaluated and sent to us for pancytopenia. Bone marrow biopsy and aspiration was performed 03/20/2019 which revealed chronic myelomonocytic leukemia. Patient underwent induction decitabine. CMML- diagnosed via BM bx 03/2019: - 03/20/19 - Leukoerythroblastic anemia- Hgb 7-range, thrombocytopenia 40s range, WBC in the 20s range with left shift and nucleated RBCs, scattered circulating blasts. Peripheral blood flow cytometry - no acute leukemia, no NHL. - 04/03/19 - BM Bx MDS/MPD at [facility]- Mild increased bone marrow blasts (5% by CD34 IHC), favor CMML - 1. FISH - negative t(9;22) BCR/ABL-1 gene rearrangement - no evidence of CML. Karyotype - mononucleosis 75 and 7, FISH: +deletion 17p supporting above diagnosis, at [facility]. - 05/09/19- Cycle 1 Day 1 Decitabine - 07/04/19- Cycle 2 Day 1 Decitabine Interval History Doing well with cycle 2 Today day +17 Proceed with platelet transfusion for count of 5,000 platelets/ul Neutropenic precautions reviewed No fevers, chills, SOB or cough Still smoking Smoking Cessation counseling given Allergies Coded Allergies: losartan (Verified Allergy, Severe, throat swelling, 06/28/18) Home Medications Reported Medications Folic Acid (Folic Acid) 1 Mg Tablet, 1 MG PO DAILY DINNER 06/24/19 Amlodipine Besylate (Amlodipine Besylate) 5 Mg Tablet, 5 MG PO DAILY DINNER 06/24/19 Sodium Chloride (Nasal [place]) 44 Ml [place], 2 SPRAYS NA Q2H PRN for NASAL CONGESTION 06/24/19 Umeclidinium [place] (Incruse Ellipta) 62.5 Mcg Blst.w.dev, 1 PUFF INH DAILY 06/28/18 Insulin Glargine,Hum.rec.anlog (Basaglar Kwikpen U-100) 100 Unit/1 Ml Insuln.pen, 30 UNIT SC QHS 06/28/18 Insulin Human Lispro (Humalog) 100 Unit/1 Ml Vial, 1 DOSE SC TID SLIDING SCALE 06/28/18 Isosorbide Mononitrate (Isosorbide Mononitrate ER) 60 Mg Tab, 60 MG PO DAILY DINNER 09/03/16 Calcium Polycarbophil (Fibercon) 625 Mg Tab, 625 MG PO DAILY DINNER 04/15/16 Carvedilol (Carvedilol) 12.5 Mg Tab, 12.5 MG PO BID, TAB 04/15/16 Pravastatin Sodium (Pravastatin Sodium) 40 Mg Tab, 40 MG PO DAILY DINNER 04/15/16 Furosemide (Lasix) 40 Mg Tab, 40 MG PO BID AM AND MID AFTERNOON 06/28/13 Past Medical History Past Medical History: CMML Ischemic cardiomyopathy. CAD S/P stent. CKD stage IV. Atrophic left kidney. Prior history of polycythemia. Was apparently referred to pulmonology for HECTOR evaluation but states she was not ready to make that appointment. Asthma. Obesity. Type 2 diabetes. CHF. Hypercholesterolemia. anemia of chronic kidney disease folate deficiency, CMV IgG positive asthma, hypercholesteremia. Past Surgical History: Pacemaker with defibrillator placement December 2017. Family History: Mother - had history throat, thyroid and uterine cancers. Sister had diabetes and Lupus. Three brothers have CAD. No other history of malignancies or dyscrasias per patient. Social History: Smoking - 10 cigarettes a day since the age of 14. Quit in 2013, but commenced smoking again February 2019 about 10 cigarettes a day. Alcohol - Denies history of alcohol or recreational drug use. Review of Systems General: Reports: Normal Appetite; Denies: Chills, Fatigue, Malaise Constitutional: Denies: Chills, Fatigue, Weight Loss Eyes: Denies: Vision change HEENT: Denies: Head Aches, Dysphagia, Sore Throat, Epistaxis Skin: Reports: Rash (petechial) Pulmonary: Reports: Cough (smokers cough) Cardiovascular: Denies: Chest Pain, Palpitations, Orthopnea, Edema Gastrointestinal: Denies: Nausea, Vomiting, Diarrhea Genitourinary: Denies: Dysuria, Frequency, Incontinence Hematologic: Denies: Bruising, Petecchia Neurological: Reports: Weakness, Numbness; Denies: Change in Speech Psych: Reports: Mood Normal Physical Examination General Exam: Positive: Alert, No Acute Distress Eye Exam: Positive: PERRLA, Conjunctiva & lids normal; Negative: Sclera icteric ENT EXAM: Positive: Atraumatic, Mucous membr. moist/pink Neck Exam: Reports: Supple; Denies: JVD, Thyromegaly, Lymphadenopathy Chest Exam: Positive: Diminished, Other (coarse b/l) Heart Exam: Positive: Rate Normal Abdomen Exam: Positive: Normal bowel sounds; Negative: Tenderness, Hepatospenomegaly, Mass Extremity Exam: Negative: Clubbing, Cyanosis, Edema Skin Exam: Positive: Other skin issue (petechiae on arms and legs) Neuro Exam: Positive: Normal Speech, Normal Tone Psych Exam: Positive: Mental status NL Ht / Wt Ht / Wt Height:5 Feet 6 Inches Weight: 79.700 Kg Vital Signs Vital Signs Date Time Temp Pulse Resp B/P (MAP) Pulse Ox O2 Delivery O2 Flow Rate FiO2 07/15/19 15:35 96.8 57 18 124/61 97 Room Air Laboratory Data Laboratory Tests 07/20/19 08:47 Laboratory Tests Test 07/15/19 07:55 Blood Urea Nitrogen 41 MG/DL (7-18) H Creatinine 1.74 MG/DL (0.55-1.30) H Glomerular Filtration Rate 31.4 (>45) L Fasting Glucose 87 MG/DL (70-100) Calcium Level 9.5 MG/DL (8.8-10.2) Total Bilirubin 0.6 MG/DL (0.2-1.0) Aspartate Amino Transf (AST/SGOT) 6 U/L (7-37) L Alanine Aminotransferase (ALT/SGPT) 13 U/L (12-78) Total Protein 6.9 GM/DL (6.4-8.2) Sodium Level 139 MEQ/L (136-145) Albumin 3.2 GM/DL (3.2-5.2) Alkaline Phosphatase 83 U/L (45-117) Potassium Level 4.0 MEQ/L (3.5-5.1) Chloride Level 104 MEQ/L (98-107) Carbon Dioxide Level 25 MEQ/L (21-32) Anion Gap 10 MEQ/L (8-16) Assessment/Plan Assessment CMML with 5% myeloblasts seen on bone marrow biopsy presently on cycle 2 d ecitabine day 12 with resultant pancytopenia Overall poor prognosis Plan Still Await results with [facility] myeloid panel to see if there are any warehouse delivery driver mutations. Patient will remain transfusion dependent for quite some time of both platelets and blood Continue with Procrit 40,000 units today to decrease red blood cell transfusion requirement. Dose today for Hb 9.3 gm/dl 1 unit of platelets today f/u 07/21 for planned platelet transfusion day +19 cycle 2 decitabine f/u 07/25 fo planned PRBC and platelet transfusion Again discussed signs and symptoms of when to call us Patient has understanding of the severity of her hematological malignancy. Has reiterated back to me and understands she has a bone marrow cancer that has no cure, just treatment to hopefully improve blood counts by disease control. Treatment remain dangerous, discussed this again with patient today. She will not hesitate to call with issues. Smoking cessation counselling administered today. All of the above was relayed to the patient who was given an opportunity to ask questions that were answered to satisfaction. The patient voiced an understanding and agreed to proceed. I spent 25 minutes during this visit seeing the patient [id number] and reviewing records. More than 50% of the time was spent in direct [id number] discussion and counseling of the patient. CC TO: Primary Care Provider: Ana Paul MD Problems: (1) MDS (myelodysplastic syndrome) (2) Anemia due to stage 4 chronic kidney disease treated with erythropoietin (3) CMML (chronic myelomonocytic leukemia) (4) Myeloproliferative disease (5) Thrombocytopenia AAYUSH PERERA MD Jul 20, 2019 08:40
[2019-07-20 08:51] VITALS: BP 130/68
[2019-07-20 09:07] LABS: BASO % 0.8 % (0.0-1.0); EOS % 0.8 % (0.0-3.0); HEMATOCRIT 27.9 % (36.0-47.0); HEMOGLOBIN 9.3 g/dl (12.0-15.5); LYMPH # 0.8 10^3/uL (1.5-5.0); LYMPH % 64.4 % (24.0-44.0); MEAN CORPUSCULAR HEMOGLOBIN 29.1 pg (27.0-33.0); MEAN CORPUSCULAR HGB CONC 33.3 g/dl (32.0-36.5); MEAN CORPUSCULAR VOLUME 87.2 fl (80.0-96.0); MONO # 0.1 10^3/uL (0.0-0.8); MONO % 9.3 % (0.0-5.0); NEUTROPHILS % 21.3 % (36.0-66.0); WHITE BLOOD COUNT 1.2 10^3/uL (4.0-10.0)
[2019-07-20 09:14] LABS: NEUTROPHILS # 0.3 10^3/uL (1.5-8.5); PLATELET COUNT, AUTOMATED 5 10^3/uL (150-450)
[2019-07-20 09:24] LABS: ALBUMIN 3.4 GM/DL (3.2-5.2); BILIRUBIN,TOTAL 0.8 MG/DL (0.2-1.0); CALCIUM LEVEL 9.2 MG/DL (8.8-10.2); CREATININE FOR GFR 1.72 MG/DL (0.55-1.30); GLOMERULAR FILTRATION RATE 31.8 (>45); POTASSIUM SERUM 3.9 MEQ/L (3.5-5.1)
[2019-07-20 10:09] VITALS: BP 130/68
[2019-07-20 12:06] VITALS: BP 103/56
[2019-07-22 08:25] LABS: BASO % 0.9 % (0.0-1.0); EOS % 0.9 % (0.0-3.0); HEMATOCRIT 26.7 % (36.0-47.0); LYMPH # 0.7 10^3/uL (1.5-5.0); LYMPH % 63.7 % (24.0-44.0); MEAN CORPUSCULAR HEMOGLOBIN 29.6 pg (27.0-33.0); MEAN CORPUSCULAR HGB CONC 33.7 g/dl (32.0-36.5); MEAN CORPUSCULAR VOLUME 87.8 fl (80.0-96.0); MONO # 0.1 10^3/uL (0.0-0.8); MONO % 8.8 % (0.0-5.0); NEUTROPHILS % 21.3 % (36.0-66.0); RED BLOOD COUNT 3.04 10^6/uL (4.00-5.40); WHITE BLOOD COUNT 1.1 10^3/uL (4.0-10.0)
[2019-07-22 08:26] VITALS: BP 125/66
[2019-07-22 08:27] LABS: NEUTROPHILS # 0.2 10^3/uL (1.5-8.5); PLATELET COUNT, AUTOMATED 19 10^3/uL (150-450)
[2019-07-22 08:48] LABS: ALBUMIN 3.3 GM/DL (3.2-5.2); BILIRUBIN,TOTAL 0.7 MG/DL (0.2-1.0); CALCIUM LEVEL 9.1 MG/DL (8.8-10.2); CREATININE FOR GFR 1.69 MG/DL (0.55-1.30); GLOMERULAR FILTRATION RATE 32.4 (>45); POTASSIUM SERUM 3.8 MEQ/L (3.5-5.1); TOTAL PROTEIN 7.2 GM/DL (6.4-8.2)
--- NOTE | 2019-07-22 09:15 | MEDONCPDOC ---
Medical Oncology Office Note Date of Service: Jul 22, 2019 Diagnosis/Treatment History Oncology problem list 1. CMML currently on cycle 2 decitabine day +19 2. Pancytopenia due to CMML and treatment 3. Grade 2 anemia 4. Grade 4 thrombocytopenia HISTORY OF PRESENT ILLNESS Patient initially evaluated and sent to us for pancytopenia. Bone marrow biopsy and aspiration was performed 03/20/2019 which revealed chronic myelomonocytic leukemia. Patient underwent induction decitabine. CMML- diagnosed via BM bx 03/2019: - 03/20/19 - Leukoerythroblastic anemia- Hgb 7-range, thrombocytopenia 40s range, WBC in the 20s range with left shift and nucleated RBCs, scattered circulating blasts. Peripheral blood flow cytometry - no acute leukemia, no NHL. - 04/03/19 - BM Bx MDS/MPD at [facility]- Mild increased bone marrow blasts (5% by CD34 IHC), favor CMML - 1. FISH - negative t(9;22) BCR/ABL-1 gene rearrangement - no evidence of CML. Karyotype - mononucleosis 75 and 7, FISH: +deletion 17p supporting above diagnosis, at [facility]. - 05/09/19- Cycle 1 Day 1 Decitabine - 07/04/19- Cycle 2 Day 1 Decitabine Interval History Doing well with cycle 2 Today day +19 Proceed with platelet transfusion for count of 19,000 platelets/ul with expected drop Neutropenic precautions reviewed No fevers, chills, SOB or cough Still smoking Smoking Cessation counseling given Allergies Coded Allergies: losartan (Verified Allergy, Severe, throat swelling, 06/28/18) Home Medications Reported Medications Folic Acid (Folic Acid) 1 Mg Tablet, 1 MG PO DAILY DINNER 06/24/19 Amlodipine Besylate (Amlodipine Besylate) 5 Mg Tablet, 5 MG PO DAILY DINNER 06/24/19 Sodium Chloride (Nasal [place]) 44 Ml [place], 2 SPRAYS NA Q2H PRN for NASAL CONGESTION 06/24/19 Umeclidinium [place] (Incruse Ellipta) 62.5 Mcg Blst.w.dev, 1 PUFF INH DAILY 06/28/18 Insulin Glargine,Hum.rec.anlog (Basaglar Kwikpen U-100) 100 Unit/1 Ml Insuln.pen, 30 UNIT SC QHS 06/28/18 Insulin Human Lispro (Humalog) 100 Unit/1 Ml Vial, 1 DOSE SC TID SLIDING SCALE 06/28/18 Isosorbide Mononitrate (Isosorbide Mononitrate ER) 60 Mg Tab, 60 MG PO DAILY DINNER 09/03/16 Calcium Polycarbophil (Fibercon) 625 Mg Tab, 625 MG PO DAILY DINNER 04/15/16 Carvedilol (Carvedilol) 12.5 Mg Tab, 12.5 MG PO BID, TAB 04/15/16 Pravastatin Sodium (Pravastatin Sodium) 40 Mg Tab, 40 MG PO DAILY DINNER 04/15/16 Furosemide (Lasix) 40 Mg Tab, 40 MG PO BID AM AND MID AFTERNOON 06/28/13 Past Medical History Past Medical History: CMML Ischemic cardiomyopathy. CAD S/P stent. CKD stage IV. Atrophic left kidney. Prior history of polycythemia. Was apparently referred to pulmonology for HECTOR evaluation but states she was not ready to make that appointment. Asthma. Obesity. Type 2 diabetes. CHF. Hypercholesterolemia. anemia of chronic kidney disease folate deficiency, CMV IgG positive asthma, hypercholesteremia. Past Surgical History: Pacemaker with defibrillator placement December 2017. Family History: Mother - had history throat, thyroid and uterine cancers. Sister had diabetes and Lupus. Three brothers have CAD. No other history of malignancies or dyscrasias per patient. Social History: Smoking - 10 cigarettes a day since the age of 14. Quit in 2013, but commenced smoking again February 2019 about 10 cigarettes a day. Alcohol - Denies history of alcohol or recreational drug use. Review of Systems General: Reports: Normal Appetite; Denies: Chills, Fatigue, Malaise Constitutional: Reports: Fatigue Eyes: Denies: Vision change HEENT: Denies: Head Aches, Dysphagia, Sore Throat, Epistaxis Skin: Denies: Rash, Lesions, Jaundice, Bruising Pulmonary: Reports: Dyspnea Cardiovascular: Denies: Chest Pain, Palpitations, Orthopnea, Edema Gastrointestinal: Denies: Nausea, Vomiting, Diarrhea Genitourinary: Denies: Dysuria, Frequency, Incontinence Hematologic: Denies: Bruising, Petecchia Neurological: Reports: Weakness, Numbness; Denies: Change in Speech Psych: Reports: Mood Normal Physical Examination General Exam: Positive: Alert, No Acute Distress Eye Exam: Positive: PERRLA, Conjunctiva & lids normal; Negative: Sclera icteric ENT EXAM: Positive: Atraumatic, Mucous membr. moist/pink Neck Exam: Reports: Supple; Denies: JVD, Thyromegaly, Lymphadenopathy Chest Exam: Positive: Diminished, Other (bronchovesicular bs b/l) Heart Exam: Positive: Rate Normal Abdomen Exam: Positive: Normal bowel sounds; Negative: Tenderness, Hepatospenomegaly, Mass Extremity Exam: Negative: Clubbing, Cyanosis, Edema Skin Exam: Positive: Nl turgor and temperature; Negative: Rash, Breakdown, Lesion Neuro Exam: Positive: Normal Speech, Normal Tone Psych Exam: Positive: Mental status NL Ht / Wt Ht / Wt Height:5 Feet 6 Inches Weight: 79.300 Kg Vital Signs Vital Signs Date Time Temp Pulse Resp B/P (MAP) Pulse Ox O2 Delivery O2 Flow Rate FiO2 07/22/19 08:26 97.8 60 16 125/66 (85) 99 Room Air Laboratory Data Laboratory Tests Test 07/15/19 07:55 07/20/19 08:47 07/22/19 08:08 Blood Urea Nitrogen 41 MG/DL (7-18) H 33 MG/DL (7-18) H 31 MG/DL (7-18) H Creatinine 1.74 MG/DL (0.55-1.30) H 1.72 MG/DL (0.55-1.30) H 1.69 MG/DL (0.55-1.30) H Glomerular Filtration Rate 31.4 (>45) L 31.8 (>45) L 32.4 (>45) L Fasting Glucose 87 MG/DL (70-100) 100 MG/DL (70-100) 95 MG/DL (70-100) Calcium Level 9.5 MG/DL (8.8-10.2) 9.2 MG/DL (8.8-10.2) 9.1 MG/DL (8.8-10.2) Total Bilirubin 0.6 MG/DL (0.2-1.0) 0.8 MG/DL (0.2-1.0) 0.7 MG/DL (0.2-1.0) Aspartate Amino Transf (AST/SGOT) 6 U/L (7-37) L 4 U/L (7-37) L 4 U/L (7-37) L Alanine Aminotransferase (ALT/SGPT) 13 U/L (12-78) 12 U/L (12-78) 11 U/L (12-78) L Total Protein 6.9 GM/DL (6.4-8.2) 7.0 GM/DL (6.4-8.2) 7.2 GM/DL (6.4-8.2) Sodium Level 139 MEQ/L (136-145) 136 MEQ/L (136-145) 138 MEQ/L (136-145) Albumin 3.2 GM/DL (3.2-5.2) 3.4 GM/DL (3.2-5.2) 3.3 GM/DL (3.2-5.2) Alkaline Phosphatase 83 U/L (45-117) 93 U/L (45-117) 97 U/L (45-117) Potassium Level 4.0 MEQ/L (3.5-5.1) 3.9 MEQ/L (3.5-5.1) 3.8 MEQ/L (3.5-5.1) Chloride Level 104 MEQ/L (98-107) 103 MEQ/L (98-107) 102 MEQ/L (98-107) Carbon Dioxide Level 25 MEQ/L (21-32) 27 MEQ/L (21-32) 27 MEQ/L (21-32) Anion Gap 10 MEQ/L (8-16) 6 MEQ/L (8-16) L 9 MEQ/L (8-16) Laboratory Tests 07/20/19 08:47 07/22/19 08:08 Assessment/Plan Assessment CMML with 5% myeloblasts seen on bone marrow biopsy presently on cycle 2 decitabine day 12 with resultant pancytopenia Overall poor prognosis Plan Still Await results with [facility] myeloid panel to see if there are any milk wagon driver mutations. Patient will remain transfusion dependent for quite some time of both platelets and blood Continue with Procrit 40,000 units today to decrease red blood cell transfusion requirement. Dose today for Hb 9.0 gm/dl 1 unit of platelets today f/u 07/25 fo planned PRBC and platelet transfusion day +23 cycle 2 decitabine Again discussed signs and symptoms of when to call us Patient has understanding of the severity of her hematological malignancy. Has reiterated back to me and understands she has a bone marrow cancer that has no cure, just treatment to hopefully improve blood counts by disease control. Treatment remain dangerous, discussed this again with patient today. She will not hesitate to call with issues. Smoking cessation counselling administered today. All of the above was relayed to the patient who was given an opportunity to ask questions that were answered to satisfaction. The patient voiced an understanding and agreed to proceed. I spent 15 minutes during this visit seeing the patient [id number] and reviewing records. More than 50% of the time was spent in direct [id number] discussion and counseling of the patient. CC TO: Primary Care Provider: Ana Paul MD Problems: (1) Thrombocytopenia (2) Anemia due to stage 4 chronic kidney disease treated with erythropoietin (3) MDS (myelodysplastic syndrome) (4) CMML (chronic myelomonocytic leukemia) AAYUSH PERERA MD Jul 22, 2019 09:14
[2019-07-22 10:05] VITALS: BP 111/62
[2019-07-22 10:20] VITALS: BP 105/59
[2019-07-22 11:46] VITALS: BP 118/57
[2019-07-26 09:40] LABS: HEMOGLOBIN 7.8 g/dl (12.0-15.5); LYMPH # 0.7 10^3/uL (1.5-5.0); LYMPH % 61.6 % (24.0-44.0); MEAN CORPUSCULAR HEMOGLOBIN 29.5 pg (27.0-33.0); MEAN CORPUSCULAR HGB CONC 33.9 g/dl (32.0-36.5); MEAN CORPUSCULAR VOLUME 87.1 fl (80.0-96.0); MONO # 0.1 10^3/uL (0.0-0.8); MONO % 9.8 % (0.0-5.0); RED BLOOD COUNT 2.64 10^6/uL (4.00-5.40); WHITE BLOOD COUNT 1.1 10^3/uL (4.0-10.0)
[2019-07-26 09:41] LABS: NEUTROPHILS # 0.3 10^3/uL (1.5-8.5); PLATELET COUNT, AUTOMATED 10 10^3/uL (150-450)
[2019-07-26 09:56] LABS: CREATININE FOR GFR 1.9 MG/DL (0.55-1.30); GLOMERULAR FILTRATION RATE 28.3 (>45); POTASSIUM SERUM 3.6 MEQ/L (3.5-5.1)
[2019-07-26 10:18] VITALS: BP 114/63
--- NOTE | 2019-07-26 12:00 | MEDONCPDOC ---
Medical Oncology Office Note Date of Service: Jul 26, 2019 Diagnosis/Treatment History Oncology problem list 1. CMML currently on cycle 2 decitabine day +19 2. Pancytopenia due to CMML and treatment 3. Grade 2 anemia 4. Grade 4 thrombocytopenia HISTORY OF PRESENT ILLNESS Patient initially evaluated and sent to us for pancytopenia. Bone marrow biopsy and aspiration was performed 03/20/2019 which revealed chronic myelomonocytic leukemia. Patient underwent induction decitabine. CMML- diagnosed via BM bx 03/2019: - 03/20/19 - Leukoerythroblastic anemia- Hgb 7-range, thrombocytopenia 40s range, WBC in the 20s range with left shift and nucleated RBCs, scattered circulating blasts. Peripheral blood flow cytometry - no acute leukemia, no NHL. - 04/03/19 - BM Bx MDS/MPD at [facility]- Mild increased bone marrow blasts (5% by CD34 IHC), favor CMML - 1. FISH - negative t(9;22) BCR/ABL-1 gene rearrangement - no evidence of CML. Karyotype - mononucleosis 75 and 7, FISH: +deletion 17p supporting above diagnosis, at [facility]. - 05/09/19- Cycle 1 Day 1 Decitabine - 07/04/19- Cycle 2 Day 1 Decitabine Interval History Doing well with cycle 2 Today day +21 Proceed with platelet transfusion for count of 10,000 platelets/ul with expected drop Proceed with 2 units packed red blood cells for hemoglobin 7.8 with expected drop Neutropenic precautions reviewed No fevers, chills, SOB or cough Still smoking Smoking Cessation counseling given Allergies Coded Allergies: losartan (Verified Allergy, Severe, throat swelling, 06/28/18) Home Medications Reported Medications Folic Acid (Folic Acid) 1 Mg Tablet, 1 MG PO DAILY DINNER 06/24/19 Amlodipine Besylate (Amlodipine Besylate) 5 Mg Tablet, 5 MG PO DAILY DINNER 06/24/19 Sodium Chloride (Nasal [place]) 44 Ml [place], 2 SPRAYS NA Q2H PRN for NASAL [place] ESTION 06/24/19 Umeclidinium [place] (Incruse Ellipta) 62.5 Mcg Blst.w.dev, 1 PUFF INH DAILY 06/28/18 Insulin Glargine,Hum.rec.anlog (Basaglar Kwikpen U-100) 100 Unit/1 Ml Insuln.pen, 30 UNIT SC QHS 06/28/18 Insulin Human Lispro (Humalog) 100 Unit/1 Ml Vial, 1 DOSE SC TID SLIDING SCALE 06/28/18 Isosorbide Mononitrate (Isosorbide Mononitrate ER) 60 Mg Tab, 60 MG PO DAILY DINNER 09/03/16 Calcium Polycarbophil (Fibercon) 625 Mg Tab, 625 MG PO DAILY DINNER 04/15/16 Carvedilol (Carvedilol) 12.5 Mg Tab, 12.5 MG PO BID, TAB 04/15/16 Pravastatin Sodium (Pravastatin Sodium) 40 Mg Tab, 40 MG PO DAILY DINNER 04/15/16 Furosemide (Lasix) 40 Mg Tab, 40 MG PO BID AM AND MID AFTERNOON 06/28/13 Past Medical History Past Medical History: CMML Ischemic cardiomyopathy. CAD S/P stent. CKD stage IV. Atrophic left kidney. Prior history of polycythemia. Was apparently referred to pulmonology for HECTOR evaluation but states she was not ready to make that appointment. Asthma. Obesity. Type 2 diabetes. CHF. Hypercholesterolemia. anemia of chronic kidney disease folate deficiency, CMV IgG positive asthma, hypercholesteremia. Past Surgical History: Pacemaker with defibrillator placement December 2017. Family History: Mother - had history throat, thyroid and uterine cancers. Sister had diabetes and Lupus. Three brothers have CAD. No other history of malignancies or dyscrasias per patient. Social History: Smoking - 10 cigarettes a day since the age of 14. Quit in 2013, but commenced smoking again February 2019 about 10 cigarettes a day. Alcohol - Denies history of alcohol or recreational drug use. Review of Systems General: Reports: Normal Appetite; Denies: Chills, Fatigue, Malaise Constitutional: Denies: Chills, Fatigue, Weight Loss Eyes: Denies: Vision change HEENT: Denies: Head Aches, Dysphagia, Sore Throat, Epistaxis Skin: Denies: Rash, Lesions, Jaundice, Bruising Pulmonary: Reports: Dyspnea (stable), Cough (stable) Cardiovascular: Denies: Chest Pain, Palpitations, Orthopnea, Edema Gastrointestinal: Denies: Nausea, Vomiting, Diarrhea Genitourinary: Denies: Dysuria, Frequency, Incontinence Hematologic: Denies: Bruising, Petecchia Neurological: Reports: Weakness, Numbness; Denies: Change in Speech Psych: Reports: Mood Normal Physical Examination General Exam: Positive: Alert, No Acute Distress Eye Exam: Positive: PERRLA, Conjunctiva & lids normal; Negative: Sclera icteric ENT EXAM: Positive: Atraumatic, Mucous membr. moist/pink, Other ENT (a few intraoral petechiae) Neck Exam: Reports: Supple; Denies: JVD, Thyromegaly, Lymphadenopathy Chest Exam: Positive: Diminished, Other (stable bronchovesicular breath sounds) Heart Exam: Positive: Rate Normal Abdomen Exam: Positive: Normal bowel sounds; Negative: Tenderness, Hepatospenomegaly, Mass Extremity Exam: Negative: Clubbing, Cyanosis, Edema Skin Exam: Positive: Other skin issue (purpura and ecchymosis on her arms unchanged) Neuro Exam: Positive: Normal Speech, Normal Tone Psych Exam: Positive: Mental status NL Ht / Wt Ht / Wt Height:5 Feet 6 Inches Weight: 79.000 Kg Vital Signs Vital Signs Date Time Temp Pulse Resp B/P (MAP) Pulse Ox O2 Delivery O2 Flow Rate FiO2 07/26/19 10:18 97.6 63 16 114/63 (80) 100 Room Air Laboratory Data Laboratory Tests Test 07/20/19 08:47 07/22/19 08:08 07/26/19 09:16 Blood Urea Nitrogen 33 MG/DL (7-18) H 31 MG/DL (7-18) H 36 MG/DL (7-18) H Creatinine 1.72 MG/DL (0.55-1.30) H 1.69 MG/DL (0.55-1.30) H 1.90 MG/DL (0.55-1.30) H Glomerular Filtration Rate 31.8 (>45) L 32.4 (>45) L 28.3 (>45) L Fasting Glucose 100 MG/DL (70-100) 95 MG/DL (70-100) 145 MG/DL (70-100) H Calcium Level 9.2 MG/DL (8.8-10.2) 9.1 MG/DL (8.8-10.2) 9.0 MG/DL (8.8-10.2) Total Bilirubin 0.8 MG/DL (0.2-1.0) 0.7 MG/DL (0.2-1.0) Aspartate Amino Transf (AST/SGOT) 4 U/L (7-37) L 4 U/L (7-37) L Alanine Aminotransferase (ALT/SGPT) 12 U/L (12-78) 11 U/L (12-78) L Total Protein 7.0 GM/DL (6.4-8.2) 7.2 GM/DL (6.4-8.2) Sodium Level 136 MEQ/L (136-145) 138 MEQ/L (136-145) 134 MEQ/L (136-145) L Albumin 3.4 GM/DL (3.2-5.2) 3.3 GM/DL (3.2-5.2) Alkaline Phosphatase 93 U/L (45-117) 97 U/L (45-117) Potassium Level 3.9 MEQ/L (3.5-5.1) 3.8 MEQ/L (3.5-5.1) 3.6 MEQ/L (3.5-5.1) Chloride Level 103 MEQ/L (98-107) 102 MEQ/L (98-107) 100 MEQ/L (98-107) Carbon Dioxide Level 27 MEQ/L (21-32) 27 MEQ/L (21-32) 27 MEQ/L (21-32) Anion Gap 6 MEQ/L (8-16) L 9 MEQ/L (8-16) 7 MEQ/L (8-16) L Laboratory Tests 07/26/19 09:16 Assessment/Plan Assessment CMML with 5% myeloblasts seen on bone marrow biopsy presently on cycle 2 decitabine day 12 with resultant pancytopenia Overall poor prognosis Plan Still Await results with [facility] myeloid panel to see if there are any driver/sales workers mutations. Patient will remain transfusion dependent for quite some time of both platelets and blood Continue with Procrit 40,000 units weekly Proceed with planned PRBC and platelet transfusion day +23 cycle 2 decitabine Plan delay in cycle 3 decitabine 1 week to see where Platelet and red blood cell and kinetics go. Again discussed signs and symptoms of when to call us Patient has understanding of the severity of her hematological malignancy. Has reiterated back to me and understands she has a bone marrow cancer that has no cure, just treatment to hopefully improve blood counts by disease control. Treatment remain dangerous, discussed this again with patient today. She will not hesitate to call with issues. Smoking cessation counselling administered today. All of the above was relayed to the patient who was given an opportunity to ask questions that were answered to satisfaction. The patient voiced an understanding and agreed to proceed. I spent 15 minutes during this visit seeing the patient [id number] and reviewing records. More than 50% of the time was spent in direct [id number] discussion and counseling of the patient. CC TO: Primary Care Provider: Ana Paul MD Problems: (1) Symptomatic anemia (2) Thrombocytopenia (3) Anemia due to stage 4 chronic kidney disease treated with erythropoietin AAYUSH PERERA MD Jul 26, 2019 12:00
[2019-07-29 08:32] LABS: BASO % 0.8 % (0.0-1.0); HEMATOCRIT 25.8 % (36.0-47.0); HEMOGLOBIN 8.8 g/dl (12.0-15.5); LYMPH # 0.7 10^3/uL (1.5-5.0); LYMPH % 55.6 % (24.0-44.0); MEAN CORPUSCULAR HGB CONC 34.1 g/dl (32.0-36.5); MEAN CORPUSCULAR VOLUME 88.1 fl (80.0-96.0); MONO # 0.2 10^3/uL (0.0-0.8); MONO % 12.7 % (0.0-5.0); NEUTROPHILS % 24.6 % (36.0-66.0); RED BLOOD COUNT 2.93 10^6/uL (4.00-5.40); WHITE BLOOD COUNT 1.3 10^3/uL (4.0-10.0)
[2019-07-29 08:33] LABS: NEUTROPHILS # 0.3 10^3/uL (1.5-8.5); PLATELET COUNT, AUTOMATED 10 10^3/uL (150-450)
[2019-08-03 09:49] LABS: BASO % 1.1 % (0.0-1.0); HEMATOCRIT 25.1 % (36.0-47.0); HEMOGLOBIN 8.3 g/dl (12.0-15.5); LYMPH # 0.8 10^3/uL (1.5-5.0); LYMPH % 43.3 % (24.0-44.0); MEAN CORPUSCULAR HEMOGLOBIN 29.7 pg (27.0-33.0); MEAN CORPUSCULAR HGB CONC 33.1 g/dl (32.0-36.5); MONO # 0.3 10^3/uL (0.0-0.8); NEUTROPHILS % 32.6 % (36.0-66.0); RED BLOOD COUNT 2.79 10^6/uL (4.00-5.40); WHITE BLOOD COUNT 1.9 10^3/uL (4.0-10.0)
[2019-08-03 09:50] VITALS: BP 94/51
[2019-08-03 09:52] LABS: PLATELET COUNT, AUTOMATED 16 10^3/uL (150-450)
[2019-08-03 09:53] LABS: NEUTROPHILS # 0.6 10^3/uL (1.5-8.5)
[2019-08-03 10:09] LABS: ALBUMIN 3.1 GM/DL (3.2-5.2); BILIRUBIN,TOTAL 0.6 MG/DL (0.2-1.0); CREATININE FOR GFR 1.92 MG/DL (0.55-1.30); POTASSIUM SERUM 3.7 MEQ/L (3.5-5.1)
--- NOTE | 2019-08-03 10:27 | MEDONCPDOC ---
Medical Oncology Office Note Date of Service: Aug 03, 2019 Diagnosis/Treatment History Oncology problem list 1. CMML currently on cycle 2 decitabine day +33 2. Pancytopenia due to CMML and treatment 3. Grade 2 anemia 4. Grade 4 thrombocytopenia HISTORY OF PRESENT ILLNESS Patient initially evaluated and sent to us for pancytopenia. Bone marrow biopsy and aspiration was performed 03/20/2019 which revealed chronic myelomonocytic leukemia. Patient underwent induction decitabine. CMML- diagnosed via BM bx 03/2019: - 03/20/19 - Leukoerythroblastic anemia- Hgb 7-range, thrombocytopenia 40s range, WBC in the 20s range with left shift and nucleated RBCs, scattered circulating blasts. Peripheral blood flow cytometry - no acute leukemia, no NHL. - 04/03/19 - BM Bx MDS/MPD at [facility]- Mild increased bone marrow blasts (5% by CD34 IHC), favor CMML - 1. FISH - negative t(9;22) BCR/ABL-1 gene rearrangement - no evidence of CML. Karyotype - mononucleosis 75 and 7, FISH: +deletion 17p supporting above diagnosis, at [facility]. - 05/09/19- Cycle 1 Day 1 Decitabine - 07/04/19- Cycle 2 Day 1 Decitabine Interval History Doing well with cycle 2 Today day +33 Hold on PLT and BRBC transfusions Hb 8.3gm/dl last PRBC 07/14! Proceed with 40,000 units procrit today Neutropenic precautions reviewed No fevers, chills, SOB or cough Still smoking Smoking Cessation counseling given Allergies Coded Allergies: losartan (Verified Allergy, Severe, throat swelling, 06/28/18) Home Medications Reported Medications Cholecalciferol (Vitamin D3) (Vitamin D3) 1,000 Unit Tablet, 1000 UNITS PO DAILY, TAB 08/03/19 Folic Acid (Folic Acid) 1 Mg Tablet, 1 MG PO DAILY DINNER 06/24/19 Amlodipine Besylate (Amlodipine Besylate) 5 Mg Tablet, 5 MG PO DAILY DINNER 06/24/19 Sodium Chloride (Nasal [place]) 44 Ml [place], 2 SPRAYS NA Q2H PRN for NASAL CONGESTION 06/24/19 Umeclidinium [place] (Incruse Ellipta) 62.5 Mcg Blst.w.dev, 1 PUFF INH DAILY 06/28/18 Insulin Glargine,Hum.rec.anlog (Basaglar Kwikpen U-100) 100 Unit/1 Ml Insuln.pen, 30 UNIT SC QHS 06/28/18 Insulin Human Lispro (Humalog) 100 Unit/1 Ml Vial, 1 DOSE SC TID SLIDING SCALE 06/28/18 Isosorbide Mononitrate (Isosorbide Mononitrate ER) 60 Mg Tab, 60 MG PO DAILY DINNER 09/03/16 Calcium Polycarbophil (Fibercon) 625 Mg Tab, 625 MG PO DAILY DINNER 04/15/16 Carvedilol (Carvedilol) 12.5 Mg Tab, 12.5 MG PO BID, TAB 04/15/16 Pravastatin Sodium (Pravastatin Sodium) 40 Mg Tab, 40 MG PO DAILY DINNER 04/15/16 Furosemide (Lasix) 40 Mg Tab, 40 MG PO BID AM AND MID AFTERNOON 06/28/13 Past Medical History Past Medical History: CMML Ischemic cardiomyopathy. CAD S/P stent. CKD stage IV. Atrophic left kidney. Prior history of polycythemia. Was apparently referred to pulmonology for HECTOR evaluation but states she was not ready to make that appointment. Asthma. Obesity. Type 2 diabetes. CHF. Hypercholesterolemia. anemia of chronic kidney disease folate deficiency, CMV IgG positive asthma, hypercholesteremia. Past Surgical History: Pacemaker with defibrillator placement December 2017. Family History: Mother - had history throat, thyroid and uterine cancers. Sister had diabetes and Lupus. Three brothers have CAD. No other history of malignancies or dyscrasias per patient. Social History: Smoking - 10 cigarettes a day since the age of 14. Quit in 2013, but commenced smoking again February 2019 about 10 cigarettes a day. Alcohol - Denies history of alcohol or recreational drug use. Review of Systems General: Reports: Normal Appetite; Denies: Chills, Fatigue, Malaise Constitutional: Reports: Fatigue Eyes: Denies: Vision change HEENT: Denies: Head Aches, Dysphagia, Sore Throat, Epistaxis Skin: Denies: Rash, Lesions, Jaundice, Bruising Pulmonary: Reports: Cough (stable) Cardiovascular: Denies: Chest Pain, Palpitations, Orthopnea, Edema Gastrointestinal: Denies: Nausea, Vomiting, Diarrhea Genitourinary: Denies: Dysuria, Frequency, Incontinence Hematologic: Denies: Bruising, Petecchia Neurological: Reports: Weakness, Numbness; Denies: Change in Speech Psych: Reports: Mood Normal Physical Examination General Exam: Positive: Alert, No Acute Distress Eye Exam: Positive: PERRLA, Conjunctiva & lids normal; Negative: Sclera icteric ENT EXAM: Positive: Atraumatic, Mucous membr. moist/pink Neck Exam: Reports: Supple; Denies: JVD, Thyromegaly, Lymphadenopathy Chest Exam: Positive: Other (stable bronchvesicular breath sounds) Heart Exam: Positive: Rate Normal Abdomen Exam: Positive: Normal bowel sounds; Negative: Tenderness, Hepatospenomegaly, Mass Extremity Exam: Negative: Clubbing, Cyanosis, Edema Skin Exam: Positive: Nl turgor and temperature; Negative: Rash, Breakdown, Lesion Neuro Exam: Positive: Normal Speech, Normal Tone Psych Exam: Positive: Mental status NL Ht / Wt Ht / Wt Height:5 Feet 6 Inches Weight: 80.200 Kg Vital Signs Vital Signs Date Time Temp Pulse Resp B/P (MAP) Pulse Ox O2 Delivery O2 Flow Rate FiO2 08/03/19 09:50 97.9 64 16 94/51 (65) 99 Room Air Laboratory Data Laboratory Tests Test 08/03/19 09:27 Blood Urea Nitrogen 30 MG/DL (7-18) H Creatinine 1.92 MG/DL (0.55-1.30) H Glomerular Filtration Rate 28.0 (>45) L Fasting Glucose 73 MG/DL (70-100) Calcium Level 9.0 MG/DL (8.8-10.2) Total Bilirubin 0.6 MG/DL (0.2-1.0) Aspartate Amino Transf (AST/SGOT) 6 U/L (7-37) L Alanine Aminotransferase (ALT/SGPT) 15 U/L (12-78) Total Protein 7.0 GM/DL (6.4-8.2) Sodium Level 138 MEQ/L (136-145) Albumin 3.1 GM/DL (3.2-5.2) L Alkaline Phosphatase 85 U/L (45-117) Potassium Level 3.7 MEQ/L (3.5-5.1) Chloride Level 103 MEQ/L (98-107) Carbon Dioxide Level 28 MEQ/L (21-32) Anion Gap 7 MEQ/L (8-16) L Laboratory Tests 08/03/19 09:27 Assessment/Plan Assessment CMML with 5% myeloblasts seen on bone marrow biopsy presently on cycle 2 decitabine day 12 with resultant pancytopenia Overall poor prognosis Plan [facility] myeloid panel results pending-to see if there are any rail car driver mutations. Patient will remain transfusion dependent for quite some time of both platelets and blood Continue with Procrit 40,000 units weekly dose today. Responding to therapy. Given for CKD stage 4 and MDS Adequate iron stored documented Proceed wtth cycle 3 decitabine day 1 08/08/19 Again discussed signs and symptoms of when to call us Patient has understanding of the severity of her hematological malignancy. Has reiterated back to me and understands she has a bone marrow cancer that has no cure, just treatment to hopefully improve blood counts by disease control. Treatment remain dangerous, discussed this again with patient today. She will not hesitate to call with issues. Smoking cessation counselling administered today. All of the above was relayed to the patient who was given an opportunity to ask questions that were answered to satisfaction. The patient voiced an u nderstanding and agreed to proceed. I spent 25 minutes during this visit seeing the patient [id number] and reviewing records. More than 50% of the time was spent in direct [id number] discussion and counseling of the patient. CC TO: Primary Care Provider: Ana Paul MD Problems: (1) Anemia due to stage 4 chronic kidney disease treated with erythropoietin (2) MDS (myelodysplastic syndrome) (3) CMML (chronic myelomonocytic leukemia) (4) Myeloproliferative disease AAYUSH PERERA MD Aug 03, 2019 10:27
[2019-08-08 10:15] VITALS: BP 98/52
[2019-08-08 10:40] LABS: HEMATOCRIT 21.9 % (36.0-47.0); HEMOGLOBIN 7.3 g/dl (12.0-15.5); LYMPH # 0.9 10^3/uL (1.5-5.0); LYMPH % 43.2 % (24.0-44.0); MEAN CORPUSCULAR HEMOGLOBIN 30.2 pg (27.0-33.0); MEAN CORPUSCULAR HGB CONC 33.3 g/dl (32.0-36.5); MEAN CORPUSCULAR VOLUME 90.5 fl (80.0-96.0); MONO # 0.4 10^3/uL (0.0-0.8); MONO % 18.9 % (0.0-5.0); RED BLOOD COUNT 2.42 10^6/uL (4.00-5.40); WHITE BLOOD COUNT 2.1 10^3/uL (4.0-10.0)
[2019-08-08 10:42] LABS: PLATELET COUNT, AUTOMATED 21 10^3/uL (150-450)
[2019-08-08 10:43] LABS: NEUTROPHILS # 0.7 10^3/uL (1.5-8.5)
[2019-08-08 11:11] LABS: BILIRUBIN,TOTAL 0.7 MG/DL (0.2-1.0); CALCIUM LEVEL 9.1 MG/DL (8.8-10.2); CREATININE FOR GFR 1.7 MG/DL (0.55-1.30); GLOMERULAR FILTRATION RATE 32.2 (>45); POTASSIUM SERUM 3.4 MEQ/L (3.5-5.1); TOTAL PROTEIN 6.7 GM/DL (6.4-8.2)
--- NOTE | 2019-08-08 11:50 | ONC.PHACK ---
CHEMO ADMIN CHECKLIST Order Contains Pt ID: Name, Order on Chemo Order Form?: Yes Order Form Includes ALL: Correct Tx Day, Correct Date, Correct Cycle Number Pt ID on Order form Matches: Pt ID on PHA Label Med on Chemo OrderForm Matches: PHA Label, Med Used for Preparation [facility] Aug 08, 2019 11:50
[2019-08-08] MEDS: SODIUM CHLORIDE 0.9% INJ 10 ML SYR IV PRN (13:48)
[2019-08-09 10:27] VITALS: BP 105/53
--- NOTE | 2019-08-09 10:36 | ONC.PHACK ---
CHEMO ADMIN CHECKLIST Order Contains Pt ID: Name, Order on Chemo Order Form?: Yes Order Form Includes ALL: Correct Tx Day, Correct Date, Correct Cycle Number Pt ID on Order form Matches: Pt ID on PHA Label Med on Chemo OrderForm Matches: PHA Label, Med Used for Preparation [facility] Aug 09, 2019 10:36
[2019-08-09] MEDS: SODIUM CHLORIDE 0.9% INJ 10 ML SYR IV PRN (11:55)
--- NOTE | 2019-08-10 12:51 | MEDONCPDOC ---
Medical Oncology Office Note Date of Service: Aug 10, 2019 Diagnosis/Treatment History Oncology problem list 1. CMML currently on cycle 3 decitabine day +3 2. Pancytopenia due to CMML and treatment 3. Grade 4 anemia 4. Grade 4 thrombocytopenia HISTORY OF PRESENT ILLNESS Patient initially evaluated and sent to us for pancytopenia. Bone marrow biopsy and aspiration was performed 03/20/2019 which revealed chronic myelomonocytic leukemia. Patient underwent induction decitabine. CMML- diagnosed via BM bx 03/2019: - 03/20/19 - Leukoerythroblastic anemia- Hgb 7-range, thrombocytopenia 40s range, WBC in the 20s range with left shift and nucleated RBCs, scattered circulating blasts. Peripheral blood flow cytometry - no acute leukemia, no NHL. - 04/03/19 - BM Bx MDS/MPD at [facility]- Mild increased bone marrow blasts (5% by CD34 IHC), favor CMML - 1. FISH - negative t(9;22) BCR/ABL-1 gene rearrangement - no evidence of CML. Karyotype - mononucleosis 75 and 7, FISH: +deletion 17p supporting above diagnosis, at [facility]. - 05/09/19- Cycle 1 Day 1 Decitabine - 07/04/19- Cycle 2 Day 1 Decitabine - 08/08/19 -Cycle 3 Day 1 Decitabine Interval History Today's date +3 of cycle 3 palliative decitabine Platelets holding but hemoglobin down to 7.3 Proceed with 2 units of packed red blood cells and 1 unit of platelets either September 09 or September 10 Proceed with 1 unit of platelets on August 16 or August 17 Allergies Coded Allergies: losartan (Verified Allergy, Severe, throat swelling, 06/28/18) Home Medications Reported Medications Cholecalciferol (Vitamin D3) (Vitamin D3) 1,000 Unit Tablet, 1000 UNITS PO DAILY, TAB 08/03/19 Folic Acid (Folic Acid) 1 Mg Tablet, 1 MG PO DAILY DINNER 06/24/19 Amlodipine Besylate (Amlodipine Besylate) 5 Mg Tablet, 5 MG PO DAILY DINNER 06/24/19 Sodium Chloride (Nasal [place]) 44 Ml [place], 2 SPRAYS NA Q2H PRN for NASAL CONGESTION 06/24/19 Umeclidinium [place] (Incruse Ellipta) 62.5 Mcg Blst.w.dev, 1 PUFF INH DAILY 06/28/18 Insulin Glargine,Hum.rec.anlog (Seth Zaldivar U-100) 100 Unit/1 Ml Insuln.pen, 30 UNIT SC QHS 06/28/18 Insulin Human Lispro (Humalog) 100 Unit/1 Ml Vial, 1 DOSE SC TID SLIDING SCALE 06/28/18 Isosorbide Mononitrate (Isosorbide Mononitrate ER) 60 Mg Tab, 60 MG PO DAILY DINNER 09/03/16 Calcium Polycarbophil (Fibercon) 625 Mg Tab, 625 MG PO DAILY DINNER 04/15/16 Carvedilol (Carvedilol) 12.5 Mg Tab, 12.5 MG PO BID, TAB 04/15/16 Pravastatin Sodium (Pravastatin Sodium) 40 Mg Tab, 40 MG PO DAILY DINNER 04/15/16 Furosemide (Lasix) 40 Mg Tab, 40 MG PO BID AM AND MID AFTERNOON 06/28/13 Past Medical History Past Medical History: CMML Ischemic cardiomyopathy. CAD S/P stent. CKD stage IV. Atrophic left kidney. Prior history of polycythemia. Was apparently referred to pulmonology for HECTOR evaluation but states she was not ready to make that appointment. Asthma. Obesity. Type 2 diabetes. CHF. Hypercholesterolemia. anemia of chronic kidney disease folate deficiency, CMV IgG positive asthma, hypercholesteremia. Past Surgical History: Pacemaker with defibrillator placement December 2017. Family History: Mother - had history throat, thyroid and uterine cancers. Sister had diabetes and Lupus. Three brothers have CAD. No other history of malignancies or dyscrasias per patient. Social History: Smoking - 10 cigarettes a day since the age of 14. Quit in 2013, but commenced smoking again February 2019 about 10 cigarettes a day. Alcohol - Denies history of alcohol or recreational drug use. Review of Systems General: Reports: Fatigue Constitutional: Denies: Chills, Fatigue, Weight Loss Eyes: Denies: Vision change HEENT: Denies: Head Aches, Dysphagia, Sore Throat, Epistaxis Skin: Denies: Rash, Lesions, Jaundice, Bruising Pulmonary: Reports: Dyspnea Cardiovascular: Denies: Chest Pain, Palpitations, Orthopnea, Edema Breast: Denies: New Breast Lumps / Masses, Breast Skin Changes, Breast Pain or Tenderness Gastrointestinal: Denies: Nausea, Vomiting, Diarrhea Genitourinary: Denies: Dysuria, Frequency, Incontinence Hematologic: Denies: Bruising, Petecchia Neurological: Reports: Weakness, Numbness; Denies: Change in Speech Psych: Reports: Mood Normal Physical Examination General Exam: Positive: Alert, No Acute Distress Eye Exam: Positive: PERRLA, Conjunctiva & lids normal; Negative: Sclera icteric ENT EXAM: Positive: Atraumatic, Mucous membr. moist/pink Neck Exam: Reports: Supple; Denies: JVD, Thyromegaly, Lymphadenopathy Chest Exam: Positive: Diminished, Other (bronchovesicular breath sounds bilaterally) Heart Exam: Positive: Rate Normal Breast Exam: Positive: Symmetric Bilaterally; Negative: Lumps or Masses, Skin Changes Abdomen Exam: Positive: Normal bowel sounds; Negative: Tenderness, Hepatospenomegaly, Mass Extremity Exam: Negative: Clubbing, Cyanosis, Edema Skin Exam: Positive: Nl turgor and temperature; Negative: Rash, Breakdown, Lesion Neuro Exam: Positive: Normal Speech, Normal Tone Psych Exam: Positive: Mental status NL Ht / Wt Ht / Wt Height:5 Feet 6 Inches Weight: 80.200 Kg Vital Signs Vital Signs Date Time Temp Pulse Resp B/P (MAP) Pulse Ox O2 Delivery O2 Flow Rate FiO2 08/09/19 10:27 96.8 79 18 105/53 (70) 99 Room Air Laboratory Data Laboratory Tests Test 08/03/19 09:27 08/08/19 10:11 Blood Urea Nitrogen 30 MG/DL (7-18) H 24 MG/DL (7-18) H Creatinine 1.92 MG/DL (0.55-1.30) H 1.70 MG/DL (0.55-1.30) H Glomerular Filtration Rate 28.0 (>45) L 32.2 (>45) L Fasting Glucose 73 MG/DL (70-100) 102 MG/DL (70-100) H Calcium Level 9.0 MG/DL (8.8-10.2) 9.1 MG/DL (8.8-10.2) Total Bilirubin 0.6 MG/DL (0.2-1.0) 0.7 MG/DL (0.2-1.0) Aspartate Amino Transf (AST/SGOT) 6 U/L (7-37) L 8 U/L (7-37) Alanine Aminotransferase (ALT/SGPT) 15 U/L (12-78) 6 U/L (12-78) L Total Protein 7.0 GM/DL (6.4-8.2) 6.7 GM/DL (6.4-8.2) Sodium Level 138 MEQ/L (136-145) 136 MEQ/L (136-145) Albumin 3.1 GM/DL (3.2-5.2) L 3.0 GM/DL (3.2-5.2) L Alkaline Phosphatase 85 U/L (45-117) 82 U/L (45-117) Potassium Level 3.7 MEQ/L (3.5-5.1) 3.4 MEQ/L (3.5-5.1) L Chloride Level 103 MEQ/L (98-107) 102 MEQ/L (98-107) Carbon Dioxide Level 28 MEQ/L (21-32) 29 MEQ/L (21-32) Anion Gap 7 MEQ/L (8-16) L 5 MEQ/L (8-16) L Laboratory Tests 08/08/19 10:11 Assessment/Plan Assessment CMML with 5% myeloblasts seen on bone marrow biopsy presently on cycle 2 decitabine day 12 with resultant pancytopenia Overall poor prognosis Plan [facility] myeloid panel results still pending-to see if there are any lead driver mutations. Orders and paperwork filled out more than a month ago. Suspect test has not been performed Patient will remain transfusion dependent for quite some time of both platelets and blood Continue with Procrit 40,000 units weekly dose today. Responding to therapy. Given for CKD stage 4 and MDS Adequate iron stored documented Proceed with 2 units packed red blood cells for hemoglobin of 7.3 and expected drop in counts other to August 10August 11 Proceed with 1 unit of platelets for grade 4, cytopenia on August 10 and again on August 16August 2 Continue with cycle 3 decitabine day +3 today Again discussed signs and symptoms of when to call us Patient has understanding of the severity of her hematological malignancy. Has reiterated back to me and understands she has a bone marrow cancer that has no cure, just treatment to hopefully improve blood counts by disease control. Treatment remain dangerous, discussed this again with patient today. She will not hesitate to call with issues. Smoking cessation counselling administered today. I spent 15 minutes during this visit seeing the patient [id number] and reviewing records. More than 50% of the time was spent in direct [id number] discussion and counseling of the patient. CC TO: Primary Care Provider: Ana Paul MD Problems: (1) Symptomatic anemia (2) Thrombocytopenia (3) CMML (chronic myelomonocytic leukemia) (4) MDS (myelodysplastic syndrome) (5) Anemia due to stage 4 chronic kidney disease treated with erythropoietin AAYUSH PERERA MD Aug 10, 2019 12:51
[2019-08-10 13:10] VITALS: BP 97/56
[2019-08-10 13:28] LABS: LYMPH # 0.7 10^3/uL (1.5-5.0); LYMPH % 36.9 % (24.0-44.0); MEAN CORPUSCULAR HGB CONC 33.8 g/dl (32.0-36.5); MEAN CORPUSCULAR VOLUME 91.6 fl (80.0-96.0); MONO # 0.4 10^3/uL (0.0-0.8); MONO % 21.2 % (0.0-5.0); NEUTROPHILS % 34.8 % (36.0-66.0); RED BLOOD COUNT 2.26 10^6/uL (4.00-5.40)
[2019-08-10 13:31] LABS: HEMATOCRIT 20.7 % (36.0-47.0)
[2019-08-10 13:33] LABS: NEUTROPHILS # 0.7 10^3/uL (1.5-8.5); PLATELET COUNT, AUTOMATED 19 10^3/uL (150-450)
--- NOTE | 2019-08-10 13:53 | ONC.PHACK ---
CHEMO ADMIN CHECKLIST Order Contains Pt ID: Name, Order on Chemo Order Form?: Yes Order Form Includes ALL: Correct Tx Day, Correct Date, Correct Cycle Number Pt ID on Order form Matches: Pt ID on PHA Label Med on Chemo OrderForm Matches: PHA Label, Med Used for Preparation [facility] Aug 10, 2019 13:53
[2019-08-10] MEDS: SODIUM CHLORIDE 0.9% INJ 10 ML SYR IV PRN (15:25)
[2019-08-11] VITALS (7 sets, daily range): BP systolic 96–120; BP diastolic 45–61
[2019-08-11] MEDS: SODIUM CHLORIDE 0.9% INJ 10 ML SYR IV PRN (13:26)
[2019-08-12 08:00] VITALS: BP 114/60
[2019-08-12 08:02] VITALS: BP 114/60
[2019-08-12 08:17] VITALS: BP 120/61
[2019-08-12 09:17] VITALS: BP 124/62
--- NOTE | 2019-08-12 09:51 | ONC.PHACK ---
CHEMO ADMIN CHECKLIST Order Contains Pt ID: Name, Order on Chemo Order Form?: Yes Order Form Includes ALL: Correct Tx Day, Correct Date, Correct Cycle Number Pt ID on Order form Matches: Pt ID on PHA Label Med on Chemo OrderForm Matches: PHA Label, Med Used for Preparation [facility] Aug 12, 2019 09:51
[2019-08-12 09:54] VITALS: BP 116/61
--- NOTE | 2019-08-12 11:06 | ONC.PHACK ---
CHEMO ADMIN CHECKLIST Order Contains Pt ID: Name, Order on Chemo Order Form?: Yes Order Form Includes ALL: Correct Tx Day, Correct Date, Correct Cycle Number Pt ID on Order form Matches: Pt ID on PHA Label Med on Chemo OrderForm Matches: PHA Label, Med Used for Preparation [facility] Aug 12, 2019 11:06
[2019-08-12 11:23] VITALS: BP 112/60
[2019-08-12] MEDS: SODIUM CHLORIDE 0.9% INJ 10 ML SYR IV PRN (11:30)
[2019-08-18 09:16] VITALS: BP 98/62
[2019-08-18 09:25] LABS: BASO % 0.6 % (0.0-1.0); EOS % 0.6 % (0.0-3.0); HEMATOCRIT 23.8 % (36.0-47.0); HEMOGLOBIN 7.8 g/dl (12.0-15.5); LYMPH # 0.8 10^3/uL (1.5-5.0); LYMPH % 48.1 % (24.0-44.0); MEAN CORPUSCULAR HEMOGLOBIN 29.9 pg (27.0-33.0); MEAN CORPUSCULAR HGB CONC 32.8 g/dl (32.0-36.5); MEAN CORPUSCULAR VOLUME 91.2 fl (80.0-96.0); MONO # 0.1 10^3/uL (0.0-0.8); NEUTROPHILS % 40.8 % (36.0-66.0); RED BLOOD COUNT 2.61 10^6/uL (4.00-5.40); WHITE BLOOD COUNT 1.6 10^3/uL (4.0-10.0)
[2019-08-18 09:26] LABS: NEUTROPHILS # 0.7 10^3/uL (1.5-8.5); PLATELET COUNT, AUTOMATED 15 10^3/uL (150-450)
--- NOTE | 2019-08-18 09:48 | MEDONCPDOC ---
Medical Oncology Office Note Date of Service: Aug 18, 2019 Diagnosis/Treatment History Oncology problem list 1. CMML currently on cycle 3 decitabine day +11 2. Pancytopenia due to CMML and treatment 3. Grade 4 anemia 4. Grade 4 thrombocytopenia HISTORY OF PRESENT ILLNESS Patient initially evaluated and sent to us for pancytopenia. Bone marrow biopsy and aspiration was performed 03/20/2019 which revealed chronic myelomonocytic leukemia. Patient underwent induction decitabine. CMML- diagnosed via BM bx 03/2019: - 03/20/19 - Leukoerythroblastic anemia- Hgb 7-range, thrombocytopenia 40s range, WBC in the 20s range with left shift and nucleated RBCs, scattered circulating blasts. Peripheral blood flow cytometry - no acute leukemia, no NHL. - 04/03/19 - BM Bx MDS/MPD at [facility]- Mild increased bone marrow blasts (5% by CD34 IHC), favor CMML - 1. FISH - negative t(9;22) BCR/ABL-1 gene rearrangement - no evidence of CML. Karyotype - mononucleosis 75 and 7, FISH: +deletion 17p supporting above diagnosis, at [facility]. - 05/09/19- Cycle 1 Day 1 Decitabine - 07/04/19- Cycle 2 Day 1 Decitabine - 08/08/19 -Cycle 3 Day 1 Decitabine Interval History Today's date +11 of cycle 3 palliative decitabine As you know, palliative decitabine accentuates cytopenias Patient is currently midcycle Patient remains transfusion dependent of both platelets and packed red blood cells We may start to see response after current cycle Goal of care is transfusion independence Patient understands increased utilization of blood product support during therapy at this juncture Proceed with 1 unit today for platelet count 15,000 Proceed with 1 unit of platelets transfusion on August 21 Proceed with 2 units packed red blood cells on August 21 Proceed with 1 unit of platelets on August 24 Tobacco cessation counseling given Patient using a condition at home Allergies Coded Allergies: losartan (Verified Allergy, Severe, throat swelling, 06/28/18) Home Medications Active Scripts Prochlorperazine Maleate (Prochlorperazine Maleate) 10 Mg Tablet, 10 MG PO Q6H for 7 Days, #30 TAB Prov:AAYUSH PERERA MD 08/12/19 Reported Medications Cholecalciferol (Vitamin D3) (Vitamin D3) 1,000 Unit Tablet, 1000 UNITS PO DAILY, TAB 08/03/19 Folic Acid (Folic Acid) 1 Mg Tablet, 1 MG PO DAILY DINNER 06/24/19 Amlodipine Besylate (Amlodipine Besylate) 5 Mg Tablet, 5 MG PO DAILY DINNER 06/24/19 Sodium Chloride (Nasal [place]) 44 Ml Hiram, 2 SPRAYS NA Q2H PRN for NASAL CONGESTION 06/24/19 Umeclidinium [place] (Incruse Ellipta) 62.5 Mcg Blst.w.dev, 1 PUFF INH DAILY 06/28/18 Insulin Glargine,Hum.rec.anlog (Basaglar Kwikpen U-100) 100 Unit/1 Ml I nsuln.pen, 30 UNIT SC QHS 06/28/18 Insulin Human Lispro (Humalog) 100 Unit/1 Ml Vial, 1 DOSE SC TID SLIDING SCALE 06/28/18 Isosorbide Mononitrate (Isosorbide Mononitrate ER) 60 Mg Tab, 60 MG PO DAILY DINNER 09/03/16 Calcium Polycarbophil (Fibercon) 625 Mg Tab, 625 MG PO DAILY DINNER 04/15/16 Carvedilol (Carvedilol) 12.5 Mg Tab, 12.5 MG PO BID, TAB 04/15/16 Pravastatin Sodium (Pravastatin Sodium) 40 Mg Tab, 40 MG PO DAILY DINNER 04/15/16 Furosemide (Lasix) 40 Mg Tab, 40 MG PO BID AM AND MID AFTERNOON 06/28/13 Past Medical History Past Medical History: CMML Ischemic cardiomyopathy. CAD S/P stent. CKD stage IV. Atrophic left kidney. Prior history of polycythemia. Was apparently referred to pulmonology for HECTOR evaluation but states she was not ready to make that appointment. Asthma. Obesity. Type 2 diabetes. CHF. Hypercholesterolemia. anemia of chronic kidney disease folate deficiency, CMV IgG positive asthma, hypercholesteremia. Past Surgical History: Pacemaker with defibrillator placement December 2017. Family History: Mother - had history throat, thyroid and uterine cancers. Sister had diabetes and Lupus. Three brothers have CAD. No other history of malignancies or dyscrasias per patient. Social History: Smoking - 10 cigarettes a day since the age of 14. Quit in 2013, but commenced smoking again February 2019 about 10 cigarettes a day. Alcohol - Denies history of alcohol or recreational drug use. Review of Systems General: Reports: Fatigue Constitutional: Denies: Chills, Fatigue, Weight Loss Eyes: Denies: Vision change HEENT: Denies: Head Aches, Dysphagia, Sore Throat, Epistaxis Skin: Denies: Rash, Lesions, Jaundice, Bruising Pulmonary: Reports: Cough (smoker's cough) Cardiovascular: Denies: Chest Pain, Palpitations, Orthopnea, Edema Breast: Denies: New Breast Lumps / Masses, Breast Skin Changes, Breast Pain or Tenderness Gastrointestinal: Denies: Nausea, Vomiting, Diarrhea Genitourinary: Denies: Dysuria, Frequency, Incontinence Hematologic: Denies: Bruising, Petecchia Neurological: Reports: Weakness, Numbness; Denies: Change in Speech Psych: Reports: Mood Normal Physical Examination General Exam: Positive: Alert, No Acute Distress Eye Exam: Positive: PERRLA, Conjunctiva & lids normal; Negative: Sclera icteric ENT EXAM: Positive: Atraumatic, Mucous membr. moist/pink Neck Exam: Positive: Supple; Negative: JVD, Thyromegaly, Lymphadenopathy Chest Exam: Positive: Wheezing, Diminished, Other (coarse bilaterally) Heart Exam: Positive: Rate Normal Breast Exam: Positive: Symmetric Bilaterally; Negative: Lumps or Masses, Skin Changes Abdomen Exam: Positive: Normal bowel sounds; Negative: Tenderness, Hepatospenomegaly, Mass Extremity Exam: Negative: Clubbing, Cyanosis, Edema Skin Exam: Positive: Other skin issue (some petechiae noted on lotion many. Ecchymosis on her arms noted) Neuro Exam: Positive: Normal Speech, Normal Tone Psych Exam: Positive: Mental status NL Ht / Wt Ht / Wt Height:5 Feet 6 Inches Weight: 81.000 Kg Vital Signs Vital Signs Date Time Temp Pulse Resp B/P (MAP) Pulse Ox O2 Delivery O2 Flow Rate FiO2 08/12/19 11:23 98.0 59 18 112/60 98 Room Air 08/12/19 09:54 99.0 Laboratory Data Laboratory Tests 08/18/19 09:06 Assessment/Plan Assessment CMML with 5% myeloblasts seen on bone marrow biopsy presently on cycle 2 decitabine day 12 with resultant pancytopenia Overall poor prognosis Plan [employer] myeloid panel results still pending-to see if there are any refrigerated company driver mutations. Orders and paperwork filled out more than a month ago. Again, suspe ct test has not been performed. This test is necessary to help us with management going forward Patient will remain transfusion dependent for quite some time of both platelets and blood Continue with Procrit 40,000 units weekly dose today. Responding to therapy. Given for CKD stage 4 and MDS Adequate iron stored documented Proceed with 2 units packed red blood cells for hemoglobin of 7.8 which and expected drop in counts August 21 and Proceed with 1 unit of platelets for grade 4, cytopenia on August 17, August 21 and August 24 Continue with cycle 3 decitabine day +11 today Again discussed signs and symptoms of when to call us Patient has understanding of the severity of her hematological malignancy. Has reiterated back to me and understands she has a bone marrow cancer that has no cure, just treatment to hopefully improve blood counts by disease control. Treatment remain dangerous, discussed this again with patient today. She will not hesitate to call with issues. Smoking cessation counselling administered today. I spent 15 minutes during this visit seeing the patient [id number] and reviewing records. More than 50% of the time was spent in direct [id number] discussion and counseling of the patient. CC TO: CC TO: Primary Care Provider: Ana Paul MD Problems: (1) Anemia due to stage 4 chronic kidney disease treated with erythropoietin (2) MDS (myelodysplastic syndrome) (3) CMML (chronic myelomonocytic leukemia) (4) Myeloproliferative disease (5) Symptomatic anemia (6) Thrombocytopenia AAYUSH PERERA MD Aug 18, 2019 08:12
--- NOTE | 2019-08-25 09:43 | MEDONCPDOC ---
Medical Oncology Office Note Date of Service: Aug 25, 2019 Diagnosis/Treatment History Oncology problem list 1. CMML currently on cycle 3 decitabine day +18 2. Pancytopenia due to CMML and treatment 3. Grade 4 anemia 4. Grade 4 thrombocytopenia HISTORY OF PRESENT ILLNESS Patient initially evaluated and sent to us for pancytopenia. Bone marrow biopsy and aspiration was performed 03/20/2019 which revealed chronic myelomonocytic leukemia. Patient underwent induction decitabine. CMML- diagnosed via BM bx 03/2019: - 03/20/19 - Leukoerythroblastic anemia- Hgb 7-range, thrombocytopenia 40s range, WBC in the 20s range with left shift and nucleated RBCs, scattered circulating blasts. Peripheral blood flow cytometry - no acute leukemia, no NHL. - 04/03/19 - BM Bx MDS/MPD at [facility]- Mild increased bone marrow blasts (5% by CD34 IHC), favor CMML - 1. FISH - negative t(9;22) BCR/ABL-1 gene rearrangement - no evidence of CML. Karyotype - mononucleosis 75 and 7, FISH: +deletion 17p supporting above diagnosis, at [facility]. - 05/09/19- Cycle 1 Day 1 Decitabine - 07/04/19- Cycle 2 Day 1 Decitabine - 08/08/19 -Cycle 3 Day 1 Decitabine Interval History Today's date +18 of cycle 3 palliative decitabine As you know, palliative decitabine accentuates cytopenias Patient is currently midcycle Patient remains transfusion dependent of both platelets and packed red blood cells We may start to see response after current cycle The sole goal of care is transfusion independence Patient understands increased utilization of blood product support during therapy at this juncture we proceeded with 1 unit on 08/17 for platelet count 15,000 we proceeded with 1 unit of platelets transfusion on August 21 we proceeded with 2 units packed red blood cells on August 21 Patient unexpectedly had a drop in hemoglobin. Patient reports some bleeding at her port site after discharge. LDH was elevated a little bit and I am concerned about posttransfusion hemolysis. Patient is asymptomatic there is no evidence of TRALI. Repeat LDH Today we will proceed with 1 unit of blood and tomorrow 1 unit of blood and 1 unit of platelets for platelet count of 9 Patient will transition to Dr[address] Carter Given that we are midcycle day +18 of cycle #3 of palliative decitabine, I have written transfusion orders for the next 2 weeks to occur on Tuesdays and Fridays. Recommend delaying cycle #4 to have at least 6 weeks in-between cycles. This will help with kinetics of blood counts and to see if we are improving baseline cytopenias Recommend continuing Procrit 40,000 units subcutaneous weekly to decrease red blood cell transfusion support by up to an estimated 50% Tobacco cessation counseling given and encouraged use of air-conditioner Allergies Coded Allergies: losartan (Verified Allergy, Severe, throat swelling, 06/28/18) Home Medications Active Scripts Prochlorperazine Maleate (Prochlorperazine Maleate) 10 Mg Tablet, 10 MG PO Q6H for 7 Days, #30 TAB Prov:AAYUSH PERERA MD 08/12/19 Reported Medications Cholecalciferol (Vitamin D3) (Vitamin D3) 1,000 Unit Tablet, 1000 UNITS PO DAILY, TAB 08/03/19 Folic Acid (Folic Acid) 1 Mg Tablet, 1 MG PO DAILY DINNER 06/24/19 Amlodipine Besylate (Amlodipine Besylate) 5 Mg Tablet, 5 MG PO DAILY DINNER 06/24/19 Sodium Chloride (Nasal [place]) 44 Ml [place], 2 SPRAYS NA Q2H PRN for NASAL CONGESTION 06/24/19 Umeclidinium [place] (Incruse Ellipta) 62.5 Mcg Blst.w.dev, 1 PUFF INH DAILY 06/28/18 Insulin Glargine,Hum.rec.anlog (Basaglar Kwikpen U-100) 100 Unit/1 Ml Insuln.pen, 30 UNIT SC QHS 06/28/18 Insulin Human Lispro (Humalog) 100 Unit/1 Ml Vial, 1 DOSE SC TID SLIDING SCALE 06/28/18 Isosorbide Mononitrate (Isosorbide Mononitrate ER) 60 Mg Tab, 60 MG PO DAILY DINNER 09/03/16 Calcium Polycarbophil (Fibercon) 625 Mg Tab, 625 MG PO DAILY DINNER 04/15/16 Carvedilol (Carvedilol) 12.5 Mg Tab, 12.5 MG PO BID, TAB 04/15/16 Pravastatin Sodium (Pravastatin Sodium) 40 Mg Tab, 40 MG PO DAILY DINNER 04/15/16 Furosemide (Lasix) 40 Mg Tab, 40 MG PO BID AM AND MID AFTERNOON 06/28/13 Past Medical History Past Medical History: CMML Ischemic cardiomyopathy. CAD S/P stent. CKD stage IV. Atrophic left kidney. Prior history of polycythemia. Was apparently referred to pulmonology for HECTOR evaluation but states she was not ready to make that appointment. Asthma. Obesity. Type 2 diabetes. CHF. Hypercholesterolemia. anemia of chronic kidney disease folate deficiency, CMV IgG positive asthma, hypercholesteremia. Past Surgical History: Pacemaker with defibrillator placement December 2017. Family History: Mother - had history throat, thyroid and uterine cancers. Sister had diabetes and Lupus. Three brothers have CAD. No other history of malignancies or dyscrasias per patient. Social History: Smoking - 10 cigarettes a day since the age of 14. Quit in 2013, but commenced smoking again February 2019 about 10 cigarettes a day. Alcohol - Denies history of alcohol or recreational drug use. Review of Systems General: Reports: Fatigue Constitutional: Denies: Chills, Fatigue, Weight Loss Eyes: Denies: Vision change HEENT: Denies: Head Aches, Dysphagia, Sore Throat, Epistaxis Skin: Denies: Rash, Lesions, Jaundice, Bruising Pulmonary: Reports: Cough (smokers) Cardiovascular: Denies: Chest Pain, Palpitations, Orthopnea, Edema Breast: Reports: New Breast Lumps / Masses Gastrointestinal: Denies: Nausea, Vomiting, Diarrhea Genitourinary: Denies: Dysuria, Frequency, Incontinence Hematologic: Denies: Bruising, Petecchia Neurological: Reports: Weakness Psych: Reports: Mood Normal Physical Examination General Exam: Positive: Alert, No Acute Distress Eye Exam: Positive: PERRLA, Conjunctiva & lids normal; Negative: Sclera icteric ENT EXAM: Positive: Atraumatic, Mucous membr. moist/pink Neck Exam: Positive: Supple; Negative: JVD, Thyromegaly, Lymphadenopathy Chest Exam: Positive: Wheezing (stable expiratory wheeze), Other (coarse breath sounds bilaterally) Heart Exam: Positive: Rate Normal Breast Exam: Positive: Symmetric Bilaterally Abdomen Exam: Positive: Normal bowel sounds; Negative: Tenderness, Hepatospenomegaly, Mass Extremity Exam: Positive: Edema (minimal 1+) Skin Exam: Positive: Nl turgor and temperature; Negative: Rash, Breakdown, Lesion Neuro Exam: Positive: Normal Speech, Normal Tone Psych Exam: Positive: Mental status NL Ht / Wt Ht / Wt Height:5 Feet 6 Inches Weight: 81.600 Kg Vital Signs Vital Sign - Last 24 Hours 08/25/19 09:56 Temp 97.6 Pulse 63 Resp 16 B/P (MAP) 111/55 (73) Pulse Ox 98 O2 Delivery Room Air Laboratory Data Laboratory Tests 08/25/19 09:45: White Blood Count 0.9*L, Red Blood Count 2.29L, Hemoglobin 6.9*L, Hematocrit 20.8L, Mean Corpuscular Volume 90.8, Mean Corpuscular Hemoglobin 30.1, Mean Corpuscular Hemoglobin Concent 33.2, Red Cell Distribution Width 15.6H, Platelet Count 9*L, Immature Granulocyte % (Auto) 1.2, Neutrophils (%) (Auto) 22.3L, Lymphocytes (%) (Auto) 67.1H, Monocytes (%) (Auto) 9.4H, Eosinophils (%) (Auto) 0.0, Basophils (%) (Auto) 0.0, Neutrophils # (Auto) 0.2L, Lymphocytes # (Auto) 0.6L, Monocytes # (Auto) 0.1, Eosinophils # (Auto) 0.0, Basophils # (Auto) 0.0, Nucleated Red Blood Cells % (auto) 3.5H, Immature Platelet Fraction 8.9 Laboratory Tests 08/25/19 09:45 Assessment/Plan Assessment CMML with 5% myeloblasts seen on bone marrow biopsy presently on cycle 3 tab day 18 with resultant pancytopenia Overall poor prognosis Unexpected drop in hemoglobin from exsanguination from port site and possible transfusion hemolytic process Plan [facility] myeloid panel results still pending-to see if there are any pick up driver mutations. Orders and paperwork filled out more than a month ago. Again, suspect test has not been performed. This test is necessary to help us with management going forward Patient will remain transfusion dependent for quite some time of both platelets and blood. We call in pathology department to see on results today Continue with Procrit 40,000 units weekly dose today. Responding to therapy. Given for CKD stage 4 and MDS Adequate iron stored documented Proceed with 2 units packed red blood cells for hemoglobin of 6.9 which and exp ected drop in counts August 24 or Proceed with 1 unit of platelets for grade 4, cytopenia for platelet count 9 We will proceed with reordering the next 2 weeks of platelet and blood transfusion support. We have the kinetics of her blood counts and needs. It's possible to calculate what needs the patient likely to meet on Tuesdays and Fridays. This can be altered by Dr. Carter when she assumes care if need be Neutropenic precautions reviewed and discussed signs and symptoms of when to ca ll us and when to call 911. Patient has understanding of the severity of her hematological malignancy. Has reiterated back to me and understands she has a bone marrow cancer that has no cure, just treatment to hopefully improve blood counts by disease control. Treatment remain dangerous, discussed this again with patient today. She will not hesitate to call with issues. Smoking cessation counselling administered today. I spent 20 minutes during this visit seeing the patient [id number] and reviewing records. More than 50% of the time was spent in direct [id number] discussion and counseling of the patient. CC TO: CC TO: Primary Care Provider: Ana Paul MD Problems: (1) Anemia due to stage 4 chronic kidney disease treated with erythropoietin (2) Symptomatic anemia (3) Thrombocytopenia (4) MDS (myelodysplastic syndrome) (5) CMML (chronic myelomonocytic leukemia) (6) Myeloproliferative disease AAYUSH PERERA MD Aug 25, 2019 09:43
[2019-08-25 09:56] VITALS: BP 111/55
[2019-08-25 10:18] LABS: LYMPH # 0.6 10^3/uL (1.5-5.0); LYMPH % 67.1 % (24.0-44.0); MEAN CORPUSCULAR HEMOGLOBIN 30.1 pg (27.0-33.0); MEAN CORPUSCULAR HGB CONC 33.2 g/dl (32.0-36.5); MEAN CORPUSCULAR VOLUME 90.8 fl (80.0-96.0); MONO # 0.1 10^3/uL (0.0-0.8); MONO % 9.4 % (0.0-5.0); NEUTROPHILS % 22.3 % (36.0-66.0); RED BLOOD COUNT 2.29 10^6/uL (4.00-5.40)
[2019-08-25 10:19] LABS: WHITE BLOOD COUNT 0.9 10^3/uL (4.0-10.0)
[2019-08-25 10:22] LABS: HEMATOCRIT 20.8 % (36.0-47.0); HEMOGLOBIN 6.9 g/dl (12.0-15.5)
[2019-08-25 10:30] LABS: NEUTROPHILS # 0.2 10^3/uL (1.5-8.5); PLATELET COUNT, AUTOMATED 9 10^3/uL (150-450)
[2019-08-26 09:33] VITALS: BP 114/53
[2019-08-26 09:55] VITALS: BP 99/55
[2019-08-26 10:35] VITALS: BP 105/58
[2019-08-26 11:24] VITALS: BP 129/63
[2019-08-26 12:49] VITALS: BP 130/69
[2019-08-30 09:42] LABS: BASO % 1.2 % (0.0-1.0); HEMATOCRIT 22.7 % (36.0-47.0); HEMOGLOBIN 7.4 g/dl (12.0-15.5); LYMPH # 0.5 10^3/uL (1.5-5.0); LYMPH % 65.4 % (24.0-44.0); MEAN CORPUSCULAR HGB CONC 32.6 g/dl (32.0-36.5); MEAN CORPUSCULAR VOLUME 91.9 fl (80.0-96.0); MONO # 0.1 10^3/uL (0.0-0.8); MONO % 11.1 % (0.0-5.0); NEUTROPHILS % 22.3 % (36.0-66.0); RED BLOOD COUNT 2.47 10^6/uL (4.00-5.40)
[2019-08-30 09:47] VITALS: BP 101/62
[2019-08-30 09:58] LABS: NEUTROPHILS # 0.2 10^3/uL (1.5-8.5); PLATELET COUNT, AUTOMATED 9 10^3/uL (150-450); WHITE BLOOD COUNT 0.8 10^3/uL (4.0-10.0)
[2019-08-30 10:11] LABS: ALBUMIN 3.1 GM/DL (3.2-5.2); BILIRUBIN,TOTAL 0.8 MG/DL (0.2-1.0); CALCIUM LEVEL 8.8 MG/DL (8.8-10.2); CREATININE FOR GFR 1.74 MG/DL (0.55-1.30); GLOMERULAR FILTRATION RATE 31.4 (>45); POTASSIUM SERUM 3.7 MEQ/L (3.5-5.1); TOTAL PROTEIN 6.6 GM/DL (6.4-8.2)
--- NOTE | 2019-08-30 10:45 | MEDONCPDOC ---
Medical Oncology Office Note Date of Service: Aug 30, 2019 Diagnosis/Treatment History Diagnosis; CMML with pancytopenia. Anemia, transfusion dependent. Thrombocytopenia requiring transfusions. Hematology history: CMML- diagnosed via BM bx 03/2019: - 03/20/19 - Leukoerythroblastic anemia- Hgb 7-range, thrombocytopenia 40s range, WBC in the 20s range with left shift and nucleated RBCs, scattered circulating blasts. Peripheral blood flow cytometry - no acute leukemia, no NHL. - 04/03/19 - BM Bx MDS/MPD at [facility]- Mild increased bone marrow blasts (5% by CD34 IHC), favor CMML - 1. FISH - negative t(9;22) BCR/ABL-1 gene rearrangement - no evidence of CML. Karyotype - mononucleosis 75 and 7, FISH: +deletion 17p supporting above diagnosis, at [facility]. - 05/09/19- Cycle 1 Day 1 Decitabine - 07/04/19- Cycle 2 Day 1 Decitabine - 08/08/19 -Cycle 3 Day 1 Decitabine Interval History Ms. Farida Cotton reports no night sweats. No fevers. No chills. No recent infections. She reports easy bruising, but no other bleeding issues. In particular, no gum bleeding, no epistaxis for no rectal bleeding and no urinary bleeding. She was here today for CBC check and blood transfusion as needed. Allergies Coded Allergies: losartan (Verified Allergy, Severe, throat swelling, 06/28/18) Home Medications Active Scripts Prochlorperazine Maleate (Prochlorperazine Maleate) 10 Mg Tablet, 10 MG PO Q6H for 7 Days, #30 TAB Prov:AAYUSH PERERA MD 08/12/19 Reported Medications Cholecalciferol (Vitamin D3) (Vitamin D3) 1,000 Unit Tablet, 1000 UNITS PO DAILY, TAB 08/03/19 Folic Acid (Folic Acid) 1 Mg Tablet, 1 MG PO DAILY DINNER 06/24/19 Amlodipine Besylate (Amlodipine Besylate) 5 Mg Tablet, 5 MG PO DAILY DINNER 06/24/19 Sodium Chloride (Nasal [place]) 44 Ml [place], 2 SPRAYS NA Q2H PRN for NASAL CONGESTION 06/24/19 Umeclidinium [place] (Incruse Ellipta) 62.5 Mcg Blst.w.dev, 1 PUFF INH DAILY 06/28/18 Insulin Glargine,Hum.rec.anlog (Basaglar Johanikpen U-100) 100 Unit/1 Ml Insuln.pen, 30 UNIT SC QHS 06/28/18 Insulin Human Lispro (Humalog) 100 Unit/1 Ml Vial, 1 DOSE SC TID SLIDING SCALE 06/28/18 Isosorbide Mononitrate (Isosorbide Mononitrate ER) 60 Mg Tab, 60 MG PO DAILY DINNER 09/03/16 Calcium Polycarbophil (Fibercon) 625 Mg Tab, 625 MG PO DAILY DINNER 04/15/16 Carvedilol (Carvedilol) 12.5 Mg Tab, 12.5 MG PO BID, TAB 04/15/16 Pravastatin Sodium (Pravastatin Sodium) 40 Mg Tab, 40 MG PO DAILY DINNER 04/15/16 Furosemide (Lasix) 40 Mg Tab, 40 MG PO BID AM AND MID AFTERNOON 06/28/13 Past Medical History Past Medical History: CMML Ischemic cardiomyopathy. CAD S/P stent. CKD stage IV. Atrophic left kidney. Prior history of polycythemia. Was apparently referred to pulmonology for HECTOR evaluation but states she was not ready to make that appointment. Asthma. Obesity. Type 2 diabetes. CHF. Hypercholesterolemia. anemia of chronic kidney disease folate deficiency, CMV IgG positive asthma, hypercholesteremia. Past Surgical History: Pacemaker with defibrillator placement December 2017. Family History: Mother - had history throat, thyroid and uterine cancers. Sister had diabetes and Lupus. Three brothers have CAD. No other history of malignancies or dyscrasias per patient. Social History: Smoking - 10 cigarettes a day since the age of 14. Quit in 2013, but commenced smoking again February 2019 about 10 cigarettes a day. Alcohol - Denies history of alcohol or recreational drug use. Review of Systems General: Reports: Normal Appetite; Denies: Chills, Night Sweats, Fatigue, Malaise Constitutional: Reports: Weakness, Normal appetite; Denies: ROS Unabtainable, Chills, Fever, Malaise, Night Sweats, Fatigue, Weight Loss, Lethargy, Other symptoms Eyes: Denies: Pain, Vision change, Conjunctivae inflammation, Eyelid inflammation, Redness, Other HEENT: Denies: Head Aches, Ear Pain, Dysphagia, Sinus Congestion, Post Nasal Drip, Sore Throat, Epistaxis, Other Symptoms Skin: Denies: Rash, Lesions, Jaundice, Bruising, Other Pulmonary: Denies: Dyspnea, Cough, Pleuritic Chest Pain, Other Symptoms Cardiovascular: Denies: Chest Pain, Palpitations, Orthopnea, Paroxysmal Noc. Dyspnea, Edema, Lt Headedness, Other Symptoms Gastrointestinal: Denies: Nausea, Vomiting, Abdominal Pain, Diarrhea, Constipation, Melena, Hematochezia, Other Symptoms Genitourinary: Denies: Dysuria, Frequency, Incontinence, Hematuria, Retention, Other Symptoms Hematologic: Reports: Bruising; Denies: Bleeding Excessively, Petecchia, Purpura, Enlarged Lymph Nodes, Other Hematologic Endocrine: Denies: Polydipsia, Polyphagia, Polyuria, Heat Intolerance, Cold Intolerance, Other Endocrine Sx Musculoskeletal: Denies: Neck pain, Shoulder pain, Arm pain, Back pain, Hand pain, Leg pain, Foot pain, Joint pain, Muscle pain, Spasms, Gout, Joint sweling, Muscle stiffness, Midthoracic pain, Other Neurological: Reports: Weakness; Denies: Numbness, Incoordination, Change in Speech, Confusion, Seizures, Othe r Symptoms Psych: Reports: Mood Normal; Denies: Anxiety, Depression Physical Examination General Exam: Positive: Alert, Cooperative, No Acute Distress, Oriented Times Three; Negative: Mild Distress, Moderate Distress, Severe Distress, Other Eye Exam: Positive: PERRLA, Conjunctiva & lids normal, EOMI; Negative: Sclera icteric ENT EXAM: Positive: Atraumatic, Mucous membr. moist/pink, Pharynx Normal, Tongue Midline, Nares Patent; Negative: Pharyngeal Edema Neck Exam: Positive: Supple; Negative: JVD, Thyromegaly, Lymphadenopathy Chest Exam: Positive: Clear to auscultation, Normal air movement; Negative: Rales, Rhonchi, Wheezing, Diminished, Other Heart Exam: Positive: Rate Normal, Regular Rhythm, Normal S1, Normal S2; Negative: Tachycardic, Bradycardic, Irregular Rhythm, Gallops, Murmurs, Rubs, Other Abdomen Exam: Positive: Normal bowel sounds; Negative: BS Hyperactive, BS Hypoactive, Soft, Tenderness, Hepatospenomegaly, Mass, Hernia, Other Extremity Exam: Positive: Edema (mild bilateral lower extremity edema), Normal pulses; Negative: Clubbing, Cyanosis, Tenderness, Swelling, Other Skin Exam: Positive: Nl turgor and temperature; Negative: Rash, Breakdown, Lesion Neuro Exam: Positive: Normal Speech, Normal Tone; Negative: Normal Gait (. Came in a wheelchair) Psych Exam: Positive: Mental status NL, Mood NL, Oriented x 3; Negative: Anxiety Ht / Wt Ht / Wt Height:5 Feet 6 Inches Weight: 82.600 Kg Vital Signs Vital Signs Date Time Temp Pulse Resp B/P (MAP) Pulse Ox O2 Delivery O2 Flow Rate FiO2 08/30/19 09:47 97.5 62 18 101/62 (75) 99 Room Air Laboratory Data Laboratory Tests Test 08/30/19 09:12 Blood Urea Nitrogen 32 MG/DL (7-18) H Creatinine 1.74 MG/DL (0.55-1.30) H Glomerular Filtration Rate 31.4 (>45) L Fasting Glucose 112 MG/DL (70-100) H Calcium Level 8.8 MG/DL (8.8-10.2) Total Bilirubin 0.8 MG/DL (0.2-1.0) Aspartate Amino Transf (AST/SGOT) 7 U/L (7-37) Alanine Aminotransferase (ALT/SGPT) 8 U/L (12-78) L Total Protein 6.6 GM/DL (6.4-8.2) Sodium Level 139 MEQ/L (136-145) Albumin 3.1 GM/DL (3.2-5.2) L Alkaline Phosphatase 92 U/L (45-117) Potassium Level 3.7 MEQ/L (3.5-5.1) Chloride Level 104 MEQ/L (98-107) Carbon Dioxide Level 28 MEQ/L (21-32) Anion Gap 7 MEQ/L (8-16) L Laboratory Tests 08/30/19 09:12 Assessment/Plan Assessment CMML with 5% myeloblasts seen on bone marrow biopsy. Overall poor prognosis Plan [facility] myeloid panel results still pending-to see if there are any electric mule driver mutations. Patient will remain transfusion dependent for quite some time of both platelets and blood. Continue with Procrit 40,000 units weekly dose for CKD stage 4 and MDS. Next dose due 08/31. Adequate iron stored documented For packed red cell transfusion and platelet transfusion today. Thrombocytopenia and Neutropenia precautions reviewed and signs and symptoms discussed with patient. For next cycle of chemotherapy 09/05/2019. CC TO: CC TO: Primary Care Provider: Ana Paul MD, FLORENCE P. MD Aug 30, 2019 10:45
[2019-09-01] MEDS: SODIUM CHLORIDE 0.9% INJ 10 ML SYR IV PRN ×2 (09:47→13:07)
[2019-09-01 10:14] LABS: BASO % 0.9 % (0.0-1.0); HEMATOCRIT 27.3 % (36.0-47.0); HEMOGLOBIN 9.1 g/dl (12.0-15.5); LYMPH # 0.8 10^3/uL (1.5-5.0); LYMPH % 70.6 % (24.0-44.0); MEAN CORPUSCULAR HEMOGLOBIN 30.2 pg (27.0-33.0); MEAN CORPUSCULAR HGB CONC 33.3 g/dl (32.0-36.5); MEAN CORPUSCULAR VOLUME 90.7 fl (80.0-96.0); MONO # 0.1 10^3/uL (0.0-0.8); MONO % 8.3 % (0.0-5.0); NEUTROPHILS % 20.2 % (36.0-66.0); RED BLOOD COUNT 3.01 10^6/uL (4.00-5.40); WHITE BLOOD COUNT 1.1 10^3/uL (4.0-10.0)
[2019-09-01 10:17] LABS: NEUTROPHILS # 0.2 10^3/uL (1.5-8.5); PLATELET COUNT, AUTOMATED 12 10^3/uL (150-450)
[2019-09-01 10:43] LABS: ALBUMIN 3.3 GM/DL (3.2-5.2); CREATININE FOR GFR 1.63 MG/DL (0.55-1.30); GLOMERULAR FILTRATION RATE 33.8 (>45); POTASSIUM SERUM 3.6 MEQ/L (3.5-5.1); TOTAL PROTEIN 6.8 GM/DL (6.4-8.2)
[2019-09-01 11:32] VITALS: BP 121/62
[2019-09-01 13:07] VITALS: BP 131/60
[2019-09-05 08:45] VITALS: BP 113/50
--- NOTE | 2019-09-05 08:45 | MEDONCPDOC ---
Medical Oncology Office Note Date of Service: Sep 05, 2019 Diagnosis/Treatment History Diagnosis; CMML with pancytopenia. Anemia, transfusion dependent. Thrombocytopenia requiring transfusions. Hematology history: CMML- diagnosed via BM bx 03/2019: - 03/20/19 - Leukoerythroblastic anemia- Hgb 7-range, thrombocytopenia 40s r celia, WBC in the 20s range with left shift and nucleated RBCs, scattered circulating blasts. Peripheral blood flow cytometry - no acute leukemia, no NHL. - 04/03/19 - BM Bx MDS/MPD at [facility]- Mild increased bone marrow blasts (5% by CD34 IHC), favor CMML - 1. FISH - negative t(9;22) BCR/ABL-1 gene rearrangement - no evidence of CML. Karyotype - mononucleosis 75 and 7, FISH: +deletion 17p supporting above diagnosis, at [facility]. - 05/09/19- Cycle 1 Day 1 Decitabine - 07/04/19- Cycle 2 Day 1 Decitabine - 08/08/19 -Cycle 3 Day 1 Decitabine - 09/05/19- cycle 4 Day 1 Decitabine Interval History Throughout this time, Ms. Farida Cotton continues to be transfusion dependent. She received 1 unit of packed red cells last week and 2 units of apheresed platelets altogether. However she reports no new problems at this time. She has had no fevers. No night sweats. Appetite fair. Weight stable. She reports no overt bleeding issues other than easy bruising on upper extremities. Specifically no epistaxis, no gum bleeding. No melena, no hematochezia. No hematuria. She comes in to the cancer center in a wheelchair but she tells me that at home she uses a walker and is up and about. Allergies Coded Allergies: losartan (Verified Allergy, Severe, throat swelling, 06/28/18) Home Medications Active Scripts Prochlorperazine Maleate (Prochlorperazine Maleate) 10 Mg Tablet, 10 MG PO Q6H for 7 Days, #30 TAB Prov:AAYUSH PERERA MD 08/12/19 Reported Medications Cholecalciferol (Vitamin D3) (Vitamin D3) 1,000 Unit Tablet, 1000 UNITS PO DAILY, TAB 08/03/19 Folic Acid (Folic Acid) 1 Mg Tablet, 1 MG PO DAILY DINNER 06/24/19 Amlodipine Besylate (Amlodipine Besylate) 5 Mg Tablet, 5 MG PO DAILY DINNER 06/24/19 Sodium Chloride (Nasal [place]) 44 Ml [place], 2 SPRAYS NA Q2H PRN for NASAL CONGESTION 06/24/19 Umeclidinium [place] (Incruse Ellipta) 62.5 Mcg Blst.w.dev, 1 PUFF INH DAILY 06/28/18 Insulin Glargine,Hum.rec.anlog (Basaglar Kwikpen U-100) 100 Unit/1 Ml Insuln.pen, 30 UNIT SC QHS 06/28/18 Insulin Human Lispro (Humalog) 100 Unit/1 Ml Vial, 1 DOSE SC TID SLIDING SCALE 06/28/18 Isosorbide Mononitrate (Isosorbide Mononitrate ER) 60 Mg Tab, 60 MG PO DAILY DINNER 09/03/16 Calcium Polycarbophil (Fibercon) 625 Mg Tab, 625 MG PO DAILY DINNER 04/15/16 Carvedilol (Carvedilol) 12.5 Mg Tab, 12.5 MG PO BID, TAB 04/15/16 Pravastatin Sodium (Pravastatin Sodium) 40 Mg Tab, 40 MG PO DAILY DINNER 04/15/16 Furosemide (Lasix) 40 Mg Tab, 40 MG PO BID AM AND MID AFTERNOON 06/28/13 Past Medical History Past Medical History: CMML Ischemic cardiomyopathy. CAD S/P stent. CKD stage IV. Atrophic left kidney. Prior history of polycythemia. Was apparently referred to pulmonology for HECTOR evaluation but states she was not ready to make that appointment. Asthma. Obesity. Type 2 diabetes. CHF. Hypercholesterolemia. anemia of chronic kidney disease folate deficiency, CMV IgG positive asthma, hypercholesteremia. Past Surgical History: Pacemaker with defibrillator placement December 2017. Family History: Mother - had history throat, thyroid and uterine cancers. Sister had diabetes and Lupus. Three brothers have CAD. No other history of malignancies or dyscrasias per patient. Social History: Smoking - 10 cigarettes a day since the age of 14. Quit in 2013, but commenced smoking again February 2019 about 10 cigarettes a day. Alcohol - Denies history of alcohol or recreational drug use. Review of Systems General: Reports: Normal Appetite; Denies: Chills, Night Sweats, Fatigue, Malaise Constitutional: Reports: Weakness, Normal appetite; Denies: ROS Unabtainable, Chills, Fever, Malaise, Night Sweats, Fatigue, Weight Loss, Lethargy, Other symptoms Eyes: Denies: Pain, Vision change, Conjunctivae inflammation, Eyelid inflammation, Redness, Other HEENT: Denies: Head Aches, Ear Pain, Dysphagia, Sinus Congestion, Post Nasal Drip, Sore Throat, Epistaxis, Other Symptoms Skin: Reports: Bruising; Denies: Rash, Lesions, Jaundice, Other Pulmonary: Denies: Dyspnea, Cough, Pleuritic Chest Pain, Other Symptoms Cardiovascular: Denies: Chest Pain, Palpitations, Orthopnea, Paroxysmal Noc. Dyspnea, Edema, Lt Headedness, Other Symptoms Gastrointestinal: Denies: Nausea, Vomiting, Abdominal Pain, Diarrhea, Constipation, Melena, Hematochezia, Other Symptoms Genitourinary: Denies: Dysuria, Frequency, Incontinence, Hematuria, Retention, Other Symptoms Hematologic: Reports: Bruising; Denies: Bleeding Excessively, Petecchia, Purpura, Enlarged Lymph Nodes, Other Hematologic Endocrine: Denies: Polydipsia, Polyphagia, Polyuria, Heat Intolerance, Cold Intolerance, Other Endocrine Sx Musculoskeletal: Denies: Neck pain, Shoulder pain, Arm pain, Back pain, Hand pain, Leg pain, Foot pain, Joint pain, Muscle pain, Spasms, Gout, Joint sweling, Muscle stiffness, Midthoracic pain, Other Neurological: Reports: Weakness; Denies: Numbness, Incoordination, Change in Speech, Confusion, Seizures, Other Symptoms Psych: Reports: Mood Normal; Denies: Anxiety, Depression Physical Examination General Exam: Positive: Alert, Cooperative, No Acute Distress, Oriented Times Three; Negative: Other Eye Exam: Positive: PERRLA, Conjunctiva & lids normal, EOMI; Negative: Sclera icteric ENT EXAM: Positive: Atraumatic, Mucous membr. moist/pink, Pharynx Normal, Tongue Midline, Nares Patent; Negative: Pharyngeal Edema Neck Exam: Positive: Supple; Negative: JVD, Thyromegaly, Lymphadenopathy Chest Exam: Positive: Clear to auscultation, Normal air movement; Negative: Rales, Rhonchi, Wheezing, Diminished, Other Heart Exam: Positive: Rate Normal, Regular Rhythm, Normal S1, Normal S2; Negative: Irregular Rhythm, Gallops, Murmurs, Rubs, Other Breast Exam: Positive: Symmetric Bilaterally Abdomen Exam: Positive: Normal bowel sounds; Negative: Soft, Tenderness, Hepatospenomegaly, Mass, Hernia, Other Extremity Exam: Positive: Edema (mild bilateral lower extremity edema), Normal pulses; Negative: Clubbing, Cyanosis, Tenderness, Swelling, Other Skin Exam: Positive: Nl turgor and temperature, Other skin issue (mild ecchymosis on upper extremities); Negative: Rash, Breakdown, Lesion Neuro Exam: Positive: Normal Speech, Normal Tone; Negative: Normal Gait (. Came in a wheelchair) Psych Exam: Positive: Mental status NL, Mood NL, Oriented x 3; Negative: Anxiety Ht / Wt Ht / Wt Height:5 Feet 6 Inches Weight: 82.600 Kg Vital Signs Vital Signs Date Time Temp Pulse Resp B/P (MAP) Pulse Ox O2 Delivery O2 Flow Rate FiO2 09/01/19 13:07 97.5 60 18 131/60 99 Room Air Item Value Date Time Oncology Treatment Order (Scanned) Scanned 08/12/19 1010 Vital Signs Label Value Date Time Patient Temperature 96.8 degrees F 09/05/19 0845 Temperature Source Temporal 09/05/19 0845 Pulse 59 09/05/19 0845 Respiratory Rate 18 bpm 09/05/19 0845 Blood Pressure Assessment 113/50 (71) 09/05/19 0845 Bedside Pulse Oximetry 98 % 09/05/19 0845 Laboratory Data Laboratory Tests Item Value Date Time White Blood Count 1.0 10^3/uL L 09/05/19 0838 Red Blood Count 3.06 10^6/uL L 09/05/19 0838 Hemoglobin 9.2 g/dl L 09/05/19 0838 Hematocrit 28.6 % L 09/05/19 0838 Mean Corpuscular Volume 93.5 fl 09/05/19 0838 Mean Corpuscular Hemoglobin 30.1 pg 09/05/19 0838 Mean Corpuscular Hemoglobin Concent 32.2 g/dl 09/05/19 0838 Red Cell Distribution Width 16.6 % H 09/05/19 0838 Platelet Count 20 10^3/uL *L 09/05/19 0838 Immature Granulocyte % (Auto) 3.1 % H 09/05/19 0838 Neutrophils (%) (Auto) 21.7 % L 09/05/19 0838 Lymphocytes (%) (Auto) 59.8 % H 09/05/19 0838 Monocytes (%) (Auto) 14.4 % H 09/05/19 0838 Eosinophils (%) (Auto) 0.0 % 09/05/19 0838 Basophils (%) (Auto) 1.0 % 09/05/19 0838 Neutrophils # (Auto) 0.2 10^3/uL L 09/05/19 0838 Lymphocytes # (Auto) 0.6 10^3/uL L 09/05/19 0838 Monocytes # (Auto) 0.1 10^3/uL 09/05/19 0838 Eosinophils # (Auto) 0.0 10^3/uL 09/05/19 0838 Basophils # (Auto) 0.0 10^3/uL 09/05/19 0838 Nucleated Red Blood Cells % (auto) 6.2 % H 09/05/19 0838 Immature Platelet Fraction 10.7 % H 09/05/19 0838 Test 08/30/19 09:12 09/01/19 09:42 Blood Urea Nitrogen 32 MG/DL (7-18) H 31 MG/DL (7-18) H Creatinine 1.74 MG/DL (0.55-1.30) H 1.63 MG/DL (0.55-1.30) H Glomerular Filtration Rate 31.4 (>45) L 33.8 (>45) L Fasting Glucose 112 MG/DL (70-100) H 63 MG/DL (70-100) L Calcium Level 8.8 MG/DL (8.8-10.2) 9.0 MG/DL (8.8-10.2) Total Bilirubin 0.8 MG/DL (0.2-1.0) 1.0 MG/DL (0.2-1.0) Aspartate Amino Transf (AST/SGOT) 7 U/L (7-37) 8 U/L (7-37) Alanine Aminotransferase (ALT/SGPT) 8 U/L (12-78) L 8 U/L (12-78) L Total Protein 6.6 GM/DL (6.4-8.2) 6.8 GM/DL (6.4-8.2) Sodium Level 139 MEQ/L (136-145) 139 MEQ/L (136-145) Albumin 3.1 GM/DL (3.2-5.2) L 3.3 GM/DL (3.2-5.2) Alkaline Phosphatase 92 U/L (45-117) 83 U/L (45-117) Potassium Level 3.7 MEQ/L (3.5-5.1) 3.6 MEQ/L (3.5-5.1) Chloride Level 104 MEQ/L (98-107) 104 MEQ/L (98-107) Carbon Dioxide Level 28 MEQ/L (21-32) 29 MEQ/L (21-32) Anion Gap 7 MEQ/L (8-16) L 6 MEQ/L (8-16) L Assessment/Plan Assessment CMML with 5% myeloblasts seen on bone marrow biopsy. Overall poor prognosis Patient is currently transfusion dependent. Plan Continue with Procrit 40,000 units weekly dose for CKD stage 4 and MDS. Next dose due 09/07. For packed red cell transfusion and platelet transfusion as needed. Will have CBC checked twice a week on a non-chemotherapy week and 3 times a week this week since she will be receiving decitabine chemotherapy throughout the week. Thrombocytopenia and Neutropenia precautions reviewed and signs and symptoms discussed with patient. For decitabine chemotherapy cycle 4 this week, starting today. CC TO: CC TO: Primary Care Provider: Ana Paul MD, FLORENCE P. MD Sep 05, 2019 08:45
[2019-09-05 08:59] LABS: HEMATOCRIT 28.6 % (36.0-47.0); HEMOGLOBIN 9.2 g/dl (12.0-15.5); LYMPH # 0.6 10^3/uL (1.5-5.0); LYMPH % 59.8 % (24.0-44.0); MEAN CORPUSCULAR HEMOGLOBIN 30.1 pg (27.0-33.0); MEAN CORPUSCULAR HGB CONC 32.2 g/dl (32.0-36.5); MEAN CORPUSCULAR VOLUME 93.5 fl (80.0-96.0); MONO # 0.1 10^3/uL (0.0-0.8); MONO % 14.4 % (0.0-5.0); NEUTROPHILS % 21.7 % (36.0-66.0); RED BLOOD COUNT 3.06 10^6/uL (4.00-5.40)
[2019-09-05 09:00] LABS: NEUTROPHILS # 0.2 10^3/uL (1.5-8.5); PLATELET COUNT, AUTOMATED 20 10^3/uL (150-450)
[2019-09-05 09:21] LABS: ALBUMIN 3.1 GM/DL (3.2-5.2); BILIRUBIN,TOTAL 0.7 MG/DL (0.2-1.0); CALCIUM LEVEL 8.6 MG/DL (8.8-10.2); CREATININE FOR GFR 1.72 MG/DL (0.55-1.30); GLOMERULAR FILTRATION RATE 31.8 (>45); POTASSIUM SERUM 3.4 MEQ/L (3.5-5.1); TOTAL PROTEIN 6.8 GM/DL (6.4-8.2)
--- NOTE | 2019-09-05 10:37 | ONC.PHACK ---
CHEMO ADMIN CHECKLIST Order Contains Pt ID: Name, Order on Chemo Order Form?: Yes Order Form Includes ALL: Correct Tx Day, Correct Date, Correct Cycle Number Pt ID on Order form Matches: Pt ID on PHA Label Med on Chemo OrderForm Matches: PHA Label, Med Used for Preparation [facility] Sep 05, 2019 10:37
[2019-09-06 14:38] VITALS: BP 116/63
--- NOTE | 2019-09-06 14:43 | ONC.PHACK ---
CHEMO ADMIN CHECKLIST Order Contains Pt ID: Name, Order on Chemo Order Form?: Yes Order Form Includes ALL: Correct Tx Day, Correct Date, Correct Cycle Number Pt ID on Order form Matches: Pt ID on PHA Label Med on Chemo OrderForm Matches: PHA Label, Med Used for Preparation [facility] Sep 06, 2019 14:43
[2019-09-06] MEDS: SODIUM CHLORIDE 0.9% INJ 10 ML SYR IV PRN (14:59)
[2019-09-07 12:25] VITALS: BP 99/65
[2019-09-07] MEDS: SODIUM CHLORIDE 0.9% INJ 10 ML SYR IV PRN (12:34)
[2019-09-07 12:37] LABS: BASO % 0.8 % (0.0-1.0); HEMATOCRIT 27.1 % (36.0-47.0); HEMOGLOBIN 8.9 g/dl (12.0-15.5); LYMPH # 0.8 10^3/uL (1.5-5.0); MEAN CORPUSCULAR HEMOGLOBIN 30.7 pg (27.0-33.0); MEAN CORPUSCULAR HGB CONC 32.8 g/dl (32.0-36.5); MEAN CORPUSCULAR VOLUME 93.4 fl (80.0-96.0); MONO # 0.1 10^3/uL (0.0-0.8); MONO % 9.8 % (0.0-5.0); NEUTROPHILS % 21.4 % (36.0-66.0); WHITE BLOOD COUNT 1.2 10^3/uL (4.0-10.0)
[2019-09-07 12:40] LABS: NEUTROPHILS # 0.3 10^3/uL (1.5-8.5); PLATELET COUNT, AUTOMATED 23 10^3/uL (150-450)
--- NOTE | 2019-09-07 13:10 | ONC.PHACK ---
CHEMO ADMIN CHECKLIST Order Contains Pt ID: Name, Order on Chemo Order Form?: Yes Order Form Includes ALL: Correct Tx Day, Correct Date, Correct Cycle Number Pt ID on Order form Matches: Pt ID on PHA Label Med on Chemo OrderForm Matches: PHA Label, Med Used for Preparation [facility] Sep 07, 2019 13:10
[2019-09-08 09:15] VITALS: BP 116/51
[2019-10-05 07:58] VITALS: BP 106/51
[2019-10-06 08:20] VITALS: BP 112/58
[2019-10-06 09:01] LABS: HEMATOCRIT 25.2 % (36.0-47.0); HEMOGLOBIN 8.2 g/dl (12.0-15.5); LYMPH # 0.6 10^3/uL (1.5-5.0); MEAN CORPUSCULAR HEMOGLOBIN 32.2 pg (27.0-33.0); MEAN CORPUSCULAR HGB CONC 32.5 g/dl (32.0-36.5); MEAN CORPUSCULAR VOLUME 98.8 fl (80.0-96.0); MONO # 0.1 10^3/uL (0.0-0.8); RED BLOOD COUNT 2.55 10^6/uL (4.00-5.40)
[2019-10-06 09:04] LABS: PLATELET COUNT, AUTOMATED 98 10^3/uL (150-450)
[2019-10-06 09:05] LABS: NEUTROPHILS # 0.3 10^3/uL (1.5-8.5)
[2019-10-06 09:15] LABS: ALBUMIN 3.2 GM/DL (3.2-5.2); BILIRUBIN,TOTAL 0.7 MG/DL (0.2-1.0); CALCIUM LEVEL 8.7 MG/DL (8.8-10.2); CREATININE FOR GFR 1.81 MG/DL (0.55-1.30); POTASSIUM SERUM 3.8 MEQ/L (3.5-5.1); TOTAL PROTEIN 6.9 GM/DL (6.4-8.2)
[2019-10-07 07:41] VITALS: BP 103/53
[2019-10-13 08:44] LABS: BASO % 1.8 % (0.0-1.0); HEMOGLOBIN 8.5 g/dl (12.0-15.5); LYMPH # 0.8 10^3/uL (1.5-5.0); LYMPH % 48.5 % (24.0-44.0); MEAN CORPUSCULAR HEMOGLOBIN 32.4 pg (27.0-33.0); MEAN CORPUSCULAR HGB CONC 32.7 g/dl (32.0-36.5); MEAN CORPUSCULAR VOLUME 99.2 fl (80.0-96.0); MONO # 0.1 10^3/uL (0.0-0.8); MONO % 7.2 % (0.0-5.0); NEUTROPHILS % 41.3 % (36.0-66.0); RED BLOOD COUNT 2.62 10^6/uL (4.00-5.40); WHITE BLOOD COUNT 1.7 10^3/uL (4.0-10.0)
[2019-10-13 08:50] LABS: NEUTROPHILS # 0.7 10^3/uL (1.5-8.5); PLATELET COUNT, AUTOMATED 51 10^3/uL (150-450)
[2019-10-18 14:59] LABS: HEMATOCRIT 23.9 % (36.0-47.0); HEMOGLOBIN 7.8 g/dl (12.0-15.5); LYMPH # 0.7 10^3/uL (1.5-5.0); LYMPH % 68.6 % (24.0-44.0); MEAN CORPUSCULAR HEMOGLOBIN 30.7 pg (27.0-33.0); MEAN CORPUSCULAR HGB CONC 32.6 g/dl (32.0-36.5); MEAN CORPUSCULAR VOLUME 94.1 fl (80.0-96.0); MONO # 0.1 10^3/uL (0.0-0.8); MONO % 7.6 % (0.0-5.0); NEUTROPHILS % 21.8 % (36.0-66.0); RED BLOOD COUNT 2.54 10^6/uL (4.00-5.40); WHITE BLOOD COUNT 1.1 10^3/uL (4.0-10.0)
[2019-10-18 15:00] LABS: NEUTROPHILS # 0.2 10^3/uL (1.5-8.5); PLATELET COUNT, AUTOMATED 20 10^3/uL (150-450)
[2019-10-20 08:12] LABS: BASO % 0.6 % (0.0-1.0); EOS % 0.6 % (0.0-3.0); HEMATOCRIT 22.9 % (36.0-47.0); HEMOGLOBIN 7.7 g/dl (12.0-15.5); LYMPH # 1.1 10^3/uL (1.5-5.0); LYMPH % 65.6 % (24.0-44.0); MEAN CORPUSCULAR HEMOGLOBIN 33.3 pg (27.0-33.0); MEAN CORPUSCULAR HGB CONC 33.6 g/dl (32.0-36.5); MEAN CORPUSCULAR VOLUME 99.1 fl (80.0-96.0); MONO # 0.1 10^3/uL (0.0-0.8); NEUTROPHILS % 26.9 % (36.0-66.0); RED BLOOD COUNT 2.31 10^6/uL (4.00-5.40); WHITE BLOOD COUNT 1.6 10^3/uL (4.0-10.0)
[2019-10-20 08:15] LABS: NEUTROPHILS # 0.4 10^3/uL (1.5-8.5); PLATELET COUNT, AUTOMATED 30 10^3/uL (150-450)
[2019-10-27 10:27] VITALS: BP 125/57
[2019-10-27 10:54] LABS: BASO % 3.6 % (0.0-1.0); EOS % 1.8 % (0.0-3.0); HEMATOCRIT 30.2 % (36.0-47.0); HEMOGLOBIN 9.8 g/dl (12.0-15.5); LYMPH # 0.9 10^3/uL (1.5-5.0); LYMPH % 77.5 % (24.0-44.0); MEAN CORPUSCULAR HEMOGLOBIN 33.6 pg (27.0-33.0); MEAN CORPUSCULAR HGB CONC 32.5 g/dl (32.0-36.5); MEAN CORPUSCULAR VOLUME 103.4 fl (80.0-96.0); MONO # 0.1 10^3/uL (0.0-0.8); MONO % 4.5 % (0.0-5.0); NEUTROPHILS % 12.6 % (36.0-66.0); RED BLOOD COUNT 2.92 10^6/uL (4.00-5.40); WHITE BLOOD COUNT 1.1 10^3/uL (4.0-10.0)
[2019-10-27 11:00] LABS: NEUTROPHILS # 0.1 10^3/uL (1.5-8.5); PLATELET COUNT, AUTOMATED 44 10^3/uL (150-450)
[2019-10-27 11:08] LABS: ALBUMIN 3.7 GM/DL (3.2-5.2); BILIRUBIN,TOTAL 0.9 MG/DL (0.2-1.0); CREATININE FOR GFR 1.95 MG/DL (0.55-1.30); GLOMERULAR FILTRATION RATE 27.5 (>45); POTASSIUM SERUM 4.2 MEQ/L (3.5-5.1); TOTAL PROTEIN 7.1 GM/DL (6.4-8.2)
--- NOTE | 2019-10-27 11:09 | MEDONCPDOC ---
Medical Oncology Office Note Date of Service: Oct 27, 2019 Diagnosis/Treatment History Diagnosis; CMML with pancytopenia. Anemia, transfusion dependent. Thrombocytopenia requiring transfusions. Hematology history: CMML- diagnosed via BM bx 03/2019: - 03/20/19 - Leukoerythroblastic anemia- Hgb 7-range, thrombocytopenia 40s range, WBC in the 20s range with left shift and nucleated RBCs, scattered circulating blasts. Peripheral blood flow cytometry - no acute leukemia, no NHL. - 04/03/19 - BM Bx MDS/MPD at [facility]- Mild increased bone marrow blasts (5% by CD34 IHC), favor CMML - 1. FISH - negative t(9;22) BCR/ABL-1 gene rearrangement - no evidence of CML. Karyotype - mononucleosis 75 and 7, FISH: +deletion 17p supporting above diagnosis, at [facility]. -Decitabine chemotherapy started 05/09/2019 Interval History Mrs. Judy. Cotton is an 80-year-old woman with CMML with pancytopenia, currently on decitabine chemotherapy and has so far received 5 cycles. She has had improvement in platelet counts and hemoglobin level with a corresponding decrease in transfusion requirements since starting decitabine. She continues to have leukopenia/neutropenia but has not had any recurring infections or increased incidence of infections. She also receives epoetin alpha injections for anemia. No fevers. No night sweats. Allergies Coded Allergies: losartan (Verified Allergy, Severe, throat swelling, 06/28/18) Home Medications Active Scripts Prochlorperazine Maleate (Prochlorperazine Maleate) 10 Mg Tablet, 10 MG PO Q6H for 7 Days, #30 TAB Prov:AAYUSH PERERA MD 08/12/19 Reported Medications Cholecalciferol (Vitamin D3) (Vitamin D3) 1,000 Unit Tablet, 1000 UNITS PO DAILY, TAB 08/03/19 Folic Acid (Folic Acid) 1 Mg Tablet, 1 MG PO DAILY DINNER 06/24/19 Amlodipine Besylate (Amlodipine Besylate) 5 Mg Tablet, 5 MG PO DAILY DINNER 06/24/19 Sodium Chloride (Nasal [place]) 44 Ml [place], 2 SPRAYS NA Q2H PRN for NASAL CONGESTION 06/24/19 Umeclidinium [place] (Incruse Ellipta) 62.5 Mcg Blst.w.dev, 1 PUFF INH DAILY 06/28/18 Insulin Glargine,Hum.rec.anlog (Basaglar [place] U-100) 100 Unit/1 Ml Insuln.pen, 30 UNIT SC QHS 06/28/18 Insulin Human Lispro (Humalog) 100 Unit/1 Ml Vial, 1 DOSE SC TID SLIDING SCALE 06/28/18 Isosorbide Mononitrate (Isosorbide Mononitrate ER) 60 Mg Tab, 60 MG PO DAILY DINNER 09/03/16 Calcium Polycarbophil (Fibercon) 625 Mg Tab, 625 MG PO DAILY DINNER 04/15/16 Carvedilol (Carvedilol) 12.5 Mg Tab, 12.5 MG PO BID, TAB 04/15/16 Pravastatin Sodium (Pravastatin Sodium) 40 Mg Tab, 40 MG PO DAILY DINNER 04/15/16 Furosemide (Lasix) 40 Mg Tab, 40 MG PO BID AM AND MID AFTERNOON 06/28/13 Past Medical History Past Medical History: CMML Ischemic cardiomyopathy. CAD S/P stent. CKD stage IV. Atrophic left kidney. Prior history of polycythemia. Was apparently referred to pulmonology for HECTOR evaluation but states she was not ready to make that appointment. Asthma. Obesity. Type 2 diabetes. CHF. Hypercholesterolemia. anemia of chronic kidney disease folate deficiency, CMV IgG positive asthma, hypercholesteremia. Past Surgical History: Pacemaker with defibrillator placement December 2017. Family History: Mother - had history throat, thyroid and uterine cancers. Sister had diabetes and Lupus. Three brothers have CAD. No other history of malignancies or dyscrasias per patient. Social History: Smoking - 10 cigarettes a day since the age of 14. Quit in 2013, but commenced smoking again February 2019 about 10 cigarettes a day. Alcohol - Denies history of alcohol or recreational drug use. Review of Systems General: Reports: Normal Appetite; Denies: Chills, Night Sweats, Fatigue, Malaise Constitutional: Reports: Normal appetite; Denies: ROS Unabtainable, Chills, Fever, Malaise, Night Sweats, Weakness, Fatigue, Weight Loss, Lethargy, Other symptoms Eyes: Denies: Pain, Vision change, Conjunctivae inflammation, Eyelid inflammation, Redness, Other HEENT: Denies: Head Aches, Ear Pain, Dysphagia, Sinus Congestion, Post Nasal Drip, Sore Throat, Epistaxis, Other Symptoms Skin: Reports: Bruising; Denies: Rash, Lesions, Jaundice, Other Pulmonary: Denies: Dyspnea, Cough, Pleuritic Chest Pain, Other Symptoms Cardiovascular: Denies: Chest Pain, Palpitations, Orthopnea, Paroxysmal Noc. Dyspnea, Edema, Lt Headedness, Other Symptoms Gastrointestinal: Denies: Nausea, Vomiting, Abdominal Pain, Diarrhea, Constipation, Melena, Hematochezia, Other Symptoms Genitourinary: Denies: Dysuria, Frequency, Incontinence, Hematuria, Retention, Other Symptoms Hematologic: Reports: Bruising; Denies: Bleeding Excessively, Petecchia, Purpura, Enlarged Lymph Nodes, Other Hematologic Endocrine: Denies: Polydipsia, Polyphagia, Polyuria, Heat Intolerance, Cold Intolerance, Other Endocrine Sx Musculoskeletal: Denies: Neck pain, Shoulder pain, Arm pain, Back pain, Hand pain, Leg pain, Foot pain, Joint pain, Muscle pain, Spasms, Gout, Joint sweling, Muscle stiffness, Midthoracic pain, Other Neurological: Reports: Weakness; Denies: Numbness, Incoordination, Change in Speech, Confusion, Seizures, Other Symptoms Psych: Reports: Mood Normal; Denies: Anxiety, Depression Physical Examination General Exam: Positive: Alert, Cooperative, No Acute Distress, Oriented Times Three; Negative: Mild Distress, Moderate Distress, Severe Distress, Other Eye Exam: Positive: PERRLA, Conjunctiva & lids normal, EOMI; Negative: Sclera icteric ENT EXAM: Positive: Atraumatic, Mucous membr. moist/pink, Pharynx Normal, Tongue Midline, Nares Patent; Negative: Pharyngeal Edema Neck Exam: Positive: Supple; Negative: JVD, Thyromegaly, Lymphadenopathy Chest Exam: Positive: Clear to auscultation, Normal air movement; Negative: Rales, Rhonchi, Wheezing, Diminished, Other Heart Exam: Positive: Rate Normal, Regular Rhythm, Normal S1, Normal S2; Negative: Tachycardic, Bradycardic, Irregular Rhythm, Gallops, Murmurs, Rubs, Other Breast Exam: Positive: Symmetric Bilaterally Abdomen Exam: Positive: Normal bowel sounds; Negative: BS Hyperactive, BS Hypoactive, Soft, Tenderness, Hepatospenomegaly, Mass, Hernia, Other Extremity Exam: Positive: Edema (mild bilateral lower extremity edema), Normal pulses; Negative: Clubbing, Cyanosis, Tenderness, Swelling, Other Skin Exam: Positive: Nl turgor and temperature, Other skin issue (mild ecchymosis on upper extremities); Negative: Rash, Breakdown, Lesion Neuro Exam: Positive: Normal Speech, Normal Tone; Negative: Normal Gait (. Came in a wheelchair) Psych Exam: Positive: Mental status NL, Mood NL, Oriented x 3; Negative: Anxiety Ht / Wt Ht / Wt Height:5 Feet 6 Inches Weight: 80.000 Kg Vital Signs Vital Signs Date Time Temp Pulse Resp B/P (MAP) Pulse Ox O2 Delivery O2 Flow Rate FiO2 10/27/19 10:27 97.3 52 16 125/57 (79) 100 Room Air Laboratory Data Laboratory Tests Test 10/27/19 10:12 Laboratory Tests 10/27/19 10:12 Assessment/Plan Assessment CMML with 5% myeloblasts seen on bone marrow biopsy. Overall poor prognosis Patient is currently transfusion dependent. Plan Continue with epoetin alpha 40,000 units weekly dose for CKD stage 4 and MDS. For packed red cell transfusion and platelet transfusion as needed. CBC to be checked weekly with epoetin alpha injections as needed. Thrombocytopenia and Neutropenia precautions reviewed and signs and symptoms discussed with patient. For decitabine chemotherapy cycle 6 next week. CC TO: CC TO: Primary Care Provider: Ana Paul MD, FLORENCE P. MD Oct 27, 2019 11:09
[2019-10-31 08:15] VITALS: BP 107/56
[2019-10-31 08:23] LABS: BASO % 2.4 % (0.0-1.0); EOS % 2.4 % (0.0-3.0); HEMOGLOBIN 10.3 g/dl (12.0-15.5); LYMPH # 0.6 10^3/uL (1.5-5.0); LYMPH % 66.7 % (24.0-44.0); MEAN CORPUSCULAR HEMOGLOBIN 33.8 pg (27.0-33.0); MEAN CORPUSCULAR HGB CONC 32.2 g/dl (32.0-36.5); MEAN CORPUSCULAR VOLUME 104.9 fl (80.0-96.0); MONO # 0.1 10^3/uL (0.0-0.8); MONO % 10.7 % (0.0-5.0); NEUTROPHILS % 16.6 % (36.0-66.0); RED BLOOD COUNT 3.05 10^6/uL (4.00-5.40)
[2019-10-31 08:29] LABS: NEUTROPHILS # 0.1 10^3/uL (1.5-8.5); PLATELET COUNT, AUTOMATED 86 10^3/uL (150-450); WHITE BLOOD COUNT 0.8 10^3/uL (4.0-10.0)
[2019-10-31 08:43] LABS: ALBUMIN 3.6 GM/DL (3.2-5.2); BILIRUBIN,TOTAL 0.9 MG/DL (0.2-1.0); CALCIUM LEVEL 9.1 MG/DL (8.8-10.2); CREATININE FOR GFR 2.2 MG/DL (0.55-1.30); GLOMERULAR FILTRATION RATE 23.9 (>45); POTASSIUM SERUM 4.1 MEQ/L (3.5-5.1); TOTAL PROTEIN 7.4 GM/DL (6.4-8.2)
[2019-10-31 15:19] LABS: ALBUMIN 3.4 GM/DL (3.2-5.2); BILIRUBIN,TOTAL 0.7 MG/DL (0.2-1.0); CALCIUM LEVEL 9.1 MG/DL (8.8-10.2); CREATININE FOR GFR 1.61 MG/DL (0.55-1.30); GLOMERULAR FILTRATION RATE 34.3 (>45); POTASSIUM SERUM 3.4 MEQ/L (3.5-5.1); TOTAL PROTEIN 6.9 GM/DL (6.4-8.2)
[2019-11-04 08:14] LABS: BASO % 2.4 % (0.0-1.0); EOS % 1.2 % (0.0-3.0); HEMATOCRIT 33.5 % (36.0-47.0); HEMOGLOBIN 10.8 g/dl (12.0-15.5); LYMPH % 61.1 % (24.0-44.0); MEAN CORPUSCULAR HEMOGLOBIN 34.3 pg (27.0-33.0); MEAN CORPUSCULAR HGB CONC 32.2 g/dl (32.0-36.5); MEAN CORPUSCULAR VOLUME 106.3 fl (80.0-96.0); MONO # 0.2 10^3/uL (0.0-0.8); MONO % 14.4 % (0.0-5.0); NEUTROPHILS % 20.3 % (36.0-66.0); PLATELET COUNT, AUTOMATED 104 10^3/uL (150-450); RED BLOOD COUNT 3.15 10^6/uL (4.00-5.40); WHITE BLOOD COUNT 1.7 10^3/uL (4.0-10.0)
[2019-11-04 08:16] LABS: NEUTROPHILS # 0.3 10^3/uL (1.5-8.5)
[2019-11-04 08:46] LABS: ALBUMIN 3.7 GM/DL (3.2-5.2); BILIRUBIN,TOTAL 0.7 MG/DL (0.2-1.0); CALCIUM LEVEL 9.8 MG/DL (8.8-10.2); CREATININE FOR GFR 2.11 MG/DL (0.55-1.30); GLOMERULAR FILTRATION RATE 25.1 (>45); POTASSIUM SERUM 4.2 MEQ/L (3.5-5.1); TOTAL PROTEIN 7.4 GM/DL (6.4-8.2)
[2019-11-04 14:04] LABS: PERCENT SATURATION 47.6 % (13.2-45.0)
[2019-11-07 13:29] LABS: BASO % 1.1 % (0.0-1.0); EOS % 1.1 % (0.0-3.0); HEMATOCRIT 32.3 % (36.0-47.0); HEMOGLOBIN 10.7 g/dl (12.0-15.5); LYMPH % 38.2 % (24.0-44.0); MEAN CORPUSCULAR HEMOGLOBIN 35.1 pg (27.0-33.0); MEAN CORPUSCULAR HGB CONC 33.1 g/dl (32.0-36.5); MEAN CORPUSCULAR VOLUME 105.9 fl (80.0-96.0); MONO # 0.4 10^3/uL (0.0-0.8); MONO % 12.9 % (0.0-5.0); NEUTROPHILS # 1.3 10^3/uL (1.5-8.5); PLATELET COUNT, AUTOMATED 101 10^3/uL (150-450); RED BLOOD COUNT 3.05 10^6/uL (4.00-5.40); WHITE BLOOD COUNT 2.7 10^3/uL (4.0-10.0)
[2019-11-07 13:46] VITALS: BP 128/64
[2019-11-07 13:53] LABS: ALBUMIN 3.8 GM/DL (3.2-5.2); BILIRUBIN,TOTAL 0.6 MG/DL (0.2-1.0); CALCIUM LEVEL 9.9 MG/DL (8.8-10.2); CREATININE FOR GFR 2.12 MG/DL (0.55-1.30); POTASSIUM SERUM 3.9 MEQ/L (3.5-5.1); TOTAL PROTEIN 7.5 GM/DL (6.4-8.2)
--- NOTE | 2019-11-07 14:17 | MEDONCPDOC ---
Medical Oncology Office Note Date of Service: Nov 07, 2019 Diagnosis/Treatment History Diagnosis; CMML with pancytopenia. Anemia, transfusion dependent. Thrombocytopenia requiring transfusions. Hematology history: CMML- diagnosed via BM bx 03/2019: - 03/20/19 - Leukoerythroblastic anemia- Hgb 7-range, thrombocytopenia 40s range, WBC in the 20s range with left shift and nucleated RBCs, scattered circulating blasts. Peripheral blood flow cytometry - no acute leukemia, no NHL. - 04/03/19 - BM Bx MDS/MPD at [facility]- Mild increased bone marrow blasts (5% by CD34 IHC), favor CMML - 1. FISH - negative t(9;22) BCR/ABL-1 gene rearrangement - no evidence of CML. Karyotype - mononucleosis 75 and 7, FISH: +deletion 17p supporting above diagnosis, at [facility]. -Decitabine chemotherapy started 05/09/2019 Interval History Mrs. Judy. Cotton is an 80-year-old woman with CMML with pancytopenia, currently on decitabine chemotherapy and has so far received 5 cycles. She has had improvement in platelet counts and hemoglobin level with a corresponding decrease in transfusion requirements since starting decitabine. She continues to have leukopenia/neutropenia but has not had any recurring infections or increased incidence of infections. She also receives epoetin alpha injections for anemia. Chemotherapy was deferred last week because of significant leukopenia. Here today for another cycle of chemotherapy. Allergies Coded Allergies: losartan (Verified Allergy, Severe, throat swelling, 06/28/18) Home Medications Active Scripts Prochlorperazine Maleate (Prochlorperazine Maleate) 10 Mg Tablet, 10 MG PO Q6H for 7 Days, #30 TAB Prov:AAYUSH PERERA MD 08/12/19 Reported Medications Cholecalciferol (Vitamin D3) (Vitamin D3) 1,000 Unit Tablet, 1000 UNITS PO DAILY, TAB 08/03/19 Folic Acid (Folic Acid) 1 Mg Tablet, 1 MG PO DAILY DINNER 06/24/19 Amlodipine Besylate (Amlodipine Besylate) 5 Mg Tablet, 5 MG PO DAILY DINNER 06/24/19 Sodium Chloride (Nasal [place]) 44 Ml [place], 2 SPRAYS NA Q2H PRN for NASAL CONGESTION 06/24/19 Umeclidinium [place] (Incruse Ellipta) 62.5 Mcg Blst.w.dev, 1 PUFF INH DAILY 5/13/19 Insulin Glargine,Hum.rec.anlog (Basaglar Kwikpen U-100) 100 Unit/1 Ml Insuln.pen, 30 UNIT SC QHS 06/28/18 Insulin Human Lispro (Humalog) 100 Unit/1 Ml Vial, 1 DOSE SC TID SLIDING SCALE 06/28/18 Isosorbide Mononitrate (Isosorbide Mononitrate ER) 60 Mg Tab, 60 MG PO DAILY DINNER 09/03/16 Calcium Polycarbophil (Fibercon) 625 Mg Tab, 625 MG PO DAILY DINNER 04/15/16 Carvedilol (Carvedilol) 12.5 Mg Tab, 12.5 MG PO BID, TAB 04/15/16 Pravastatin Sodium (Pravastatin Sodium) 40 Mg Tab, 40 MG PO DAILY DINNER 04/15/16 Furosemide (Lasix) 40 Mg Tab, 40 MG PO BID AM AND MID AFTERNOON 06/28/13 Past Medical History Past Medical History: CMML Ischemic cardiomyopathy. CAD S/P stent. CKD stage IV. Atrophic left kidney. Prior history of polycythemia. Was apparently referred to pulmonology for HECTOR evaluation but states she was not ready to make that appointment. Asthma. Obesity. Type 2 diabetes. CHF. Hypercholesterolemia. anemia of chronic kidney disease folate deficiency, CMV IgG positive asthma, hypercholesteremia. Past Surgical History: Pacemaker with defibrillator placement December 2017. Family History: Mother - had history throat, thyroid and uterine cancers. Sister had diabetes and Lupus. Three brothers have CAD. No other history of malignancies or dyscrasias per patient. Social History: Smoking - 10 cigarettes a day since the age of 14. Quit in 2013, but commenced smoking again February 2019 about 10 cigarettes a day. Alcohol - Denies history of alcohol or recreational drug use. Review of Systems General: Reports: Normal Appetite; Denies: Chills, Night Sweats, Fatigue, Malaise Constitutional: Reports: Normal appetite; Denies: Chills, Fever, Malaise, Night Sweats, Weakness, Fatigue, Weight Loss, Lethargy, Other symptoms Eyes: Denies: Pain, Vision change, Conjunctivae inflammation, Eyelid inflammation, Redness, Other HEENT: Denies: Head Aches, Ear Pain, Dysphagia, Sinus Congestion, Post Nasal Drip, Sore Throat, Epistaxis, Other Symptoms Skin: Reports: Bruising (improved with improvement in platelet counts.); Denies: Rash, Lesions, Jaundice, Other Pulmonary: Denies: Dyspnea, Cough, Pleuritic Chest Pain, Other Symptoms Cardiovascular: Denies: Chest Pain, Palpitations, Orthopnea, Paroxysmal Noc. Dyspnea, Edema, Lt Headedness, Other Symptoms Gastrointestinal: Denies: Nausea, Vomiting, Abdominal Pain, Diarrhea, Constipation, Melena, Hematochezia, Other Symptoms Genitourinary: Denies: Dysuria, Frequency, Incontinence, Hematuria, Retention, Other Symptoms Hematologic: Reports: Bruising; Denies: Bleeding Excessively, Petecchia, Purpura, Enlarged Lymph Nodes, Other Hematologic Endocrine: Denies: Polydipsia, Polyphagia, Polyuria, Heat Intolerance, Cold Intolerance, Other Endocrine Sx Musculoskeletal: Denies: Neck pain, Shoulder pain, Arm pain, Back pain, Hand pain, Leg pain, Foot pain, Joint pain, Muscle pain, Spasms, Gout, Joint sweling, Muscle stiffness, Midthoracic pain, Other Neurological: Denies: Weakness, Numbness, Incoordination, Change in Speech, Confusion, Seizures, Other Symptoms Psych: Reports: Mood Normal; Denies: Anxiety, Depression Physical Examination General Exam: Positive: Alert, Cooperative, No Acute Distress, Oriented Times Three; Negative: Other Eye Exam: Positive: PERRLA, Conjunctiva & lids normal, EOMI; Negative: Sclera icteric ENT EXAM: Positive: Atraumatic, Mucous membr. moist/pink, Pharynx Normal, Tongue Midline, Nares Patent; Negative: Pharyngeal Edema Neck Exam: Positive: Supple; Negative: JVD, Thyromegaly, Lymphadenopathy Chest Exam: Positive: Clear to auscultation, Normal air movement; Negative: Rales, Rhonchi, Wheezing, Diminished, Other Heart Exam: Positive: Rate Normal, Regular Rhythm, Normal S1, Normal S2; Negative: Irregular Rhythm, Gallops, Murmurs, Rubs, Other Breast Exam: Positive: Symmetric Bilaterally Abdomen Exam: Positive: Normal bowel sounds; Negative: Soft, Tenderness, Hepatospenomegaly, Mass, Hernia, Other Extremity Exam: Positive: Edema (mild bilateral lower extremity edema), Normal pulses; Negative: Clubbing, Cyanosis, Tenderness, Swelling, Other Skin Exam: Positive: Nl turgor and temperature, Other skin issue (mild ecchymosis on upper extremities); Negative: Rash, Breakdown, Lesion Neuro Exam: Positive: Normal Speech; Negative: Normal Gait (. Came in a wheelchair) Psych Exam: Positive: Mental status NL, Mood NL, Oriented x 3; Negative: Anxiety Ht / Wt Ht / Wt Height:5 Feet 6 Inches Weight: 79.700 Kg Vital Signs Vital Signs Date Time Temp Pulse Resp B/P (MAP) Pulse Ox O2 Delivery O2 Flow Rate FiO2 11/07/19 13:46 97.9 62 16 128/64 (85) 98 Room Air Laboratory Data Laboratory Tests Test 10/31/19 07:53 11/04/19 08:01 11/07/19 13:05 Blood Urea Nitrogen 32 MG/DL (7-18) H 37 MG/DL (7-18) H 32 MG/DL (7-18) H Creatinine 2.20 MG/DL (0.55-1.30) H 2.11 MG/DL (0.55-1.30) H 2.12 MG/DL (0.55-1.30) H Glomerular Filtration Rate 23.9 (>45) L 25.1 (>45) L 25.0 (>45) L Fasting Glucose 125 MG/DL (70-100) H 145 MG/DL (70-100) H 127 MG/DL (70-100) H Calcium Level 9.1 MG/DL (8.8-10.2) 9.8 MG/DL (8.8-10.2) 9.9 MG/DL (8.8-10.2) Total Bilirubin 0.9 MG/DL (0.2-1.0) 0.7 MG/DL (0.2-1.0) 0.6 MG/DL (0.2-1.0) Aspartate Amino Transf (AST/SGOT) 6 U/L (7-37) L 8 U/L (7-37) 11 U/L (7-37) Alanine Aminotransferase (ALT/SGPT) 11 U/L (12-78) L 12 U/L (12-78) 16 U/L (12-78) Total Protein 7.4 GM/DL (6.4-8.2) 7.4 GM/DL (6.4-8.2) 7.5 GM/DL (6.4-8.2) Sodium Level 135 MEQ/L (136-145) L 135 MEQ/L (136-145) L 134 MEQ/L (136-145) L Albumin 3.6 GM/DL (3.2-5.2) 3.7 GM/DL (3.2-5.2) 3.8 GM/DL (3.2-5.2) Alkaline Phosphatase 81 U/L (45-117) 87 U/L (45-117) 84 U/L (45-117) Potassium Level 4.1 MEQ/L (3.5-5.1) 4.2 MEQ/L (3.5-5.1) 3.9 MEQ/L (3.5-5.1) Chloride Level 102 MEQ/L (98-107) 100 MEQ/L (98-107) 102 MEQ/L (98-107) Carbon Dioxide Level 26 MEQ/L (21-32) 29 MEQ/L (21-32) 29 MEQ/L (21-32) Anion Gap 7 MEQ/L (8-16) L 6 MEQ/L (8-16) L 3 MEQ/L (8-16) L Laboratory Tests 11/07/19 13:05 Assessment/Plan Assessment CMML with 5% myeloblasts seen on bone marrow biopsy. Overall poor prognosis Patient is currently transfusion dependent. Plan Continue with epoetin alpha 40,000 units weekly dose for CKD stage 4 and MDS. For packed red cell transfusion and platelet transfusion as needed. CBC to be checked weekly with epoetin alpha injections as needed. For decitabine chemotherapy cycle 6 this week. CC TO: CC TO: Primary Care Provider: Ana Paul MD, FLORENCE P. MD Nov 07, 2019 14:08
[2019-11-07] MEDS: SODIUM CHLORIDE 0.9% INJ 10 ML SYR IV PRN (16:28)
[2019-11-08 08:10] VITALS: BP 121/63
--- NOTE | 2019-11-08 08:17 | ONC.PHACK ---
CHEMO ADMIN CHECKLIST Order Contains Pt ID: Name, Order on Chemo Order Form?: Yes Order Form Includes ALL: Correct Tx Day, Correct Date, Correct Cycle Number Pt ID on Order form Matches: Pt ID on PHA Label Med on Chemo OrderForm Matches: PHA Label, Med Used for Preparation [facility] Nov 08, 2019 08:17
[2019-11-08] MEDS: SODIUM CHLORIDE 0.9% INJ 10 ML SYR IV PRN (09:56)
[2019-11-09 12:58] VITALS: BP 122/65
[2019-11-09] MEDS: SODIUM CHLORIDE 0.9% INJ 10 ML SYR IV PRN ×2 (14:26→14:28)
[2019-11-10 08:55] VITALS: BP 131/59
--- NOTE | 2019-11-10 09:02 | ONC.PHACK ---
CHEMO ADMIN CHECKLIST Order Contains Pt ID: Name, Order on Chemo Order Form?: Yes Order Form Includes ALL: Correct Tx Day, Correct Date, Correct Cycle Number Pt ID on Order form Matches: Pt ID on PHA Label Med on Chemo OrderForm Matches: PHA Label, Med Used for Preparation [facility] Nov 10, 2019 09:02
[2019-11-11 12:05] VITALS: BP 108/55
--- NOTE | 2019-11-11 12:43 | ONC.PHACK ---
CHEMO ADMIN CHECKLIST Order Contains Pt ID: Name, Order on Chemo Order Form?: Yes Order Form Includes ALL: Correct Tx Day, Correct Date, Correct Cycle Number Pt ID on Order form Matches: Pt ID on PHA Label Med on Chemo OrderForm Matches: PHA Label, Med Used for Preparation [facility] Nov 11, 2019 12:43
[2019-11-14 08:53] LABS: BASO % 0.8 % (0.0-1.0); EOS % 0.3 % (0.0-3.0); HEMATOCRIT 31.5 % (36.0-47.0); HEMOGLOBIN 10.5 g/dl (12.0-15.5); LYMPH # 0.9 10^3/uL (1.5-5.0); LYMPH % 22.9 % (24.0-44.0); MEAN CORPUSCULAR HEMOGLOBIN 35.4 pg (27.0-33.0); MEAN CORPUSCULAR HGB CONC 33.3 g/dl (32.0-36.5); MEAN CORPUSCULAR VOLUME 106.1 fl (80.0-96.0); MONO # 0.2 10^3/uL (0.0-0.8); MONO % 5.9 % (0.0-5.0); NEUTROPHILS # 2.7 10^3/uL (1.5-8.5); NEUTROPHILS % 69.3 % (36.0-66.0); RED BLOOD COUNT 2.97 10^6/uL (4.00-5.40); WHITE BLOOD COUNT 3.9 10^3/uL (4.0-10.0)
[2019-11-14 09:02] LABS: PLATELET COUNT, AUTOMATED 61 10^3/uL (150-450)
[2019-11-21 09:09] LABS: BASO % 0.8 % (0.0-1.0); EOS % 1.1 % (0.0-3.0); HEMOGLOBIN 9.7 g/dl (12.0-15.5); LYMPH # 1.2 10^3/uL (1.5-5.0); LYMPH % 32.5 % (24.0-44.0); MEAN CORPUSCULAR HEMOGLOBIN 35.9 pg (27.0-33.0); MEAN CORPUSCULAR HGB CONC 34.6 g/dl (32.0-36.5); MEAN CORPUSCULAR VOLUME 103.7 fl (80.0-96.0); MONO # 0.2 10^3/uL (0.0-0.8); MONO % 4.9 % (0.0-5.0); NEUTROPHILS # 2.2 10^3/uL (1.5-8.5); NEUTROPHILS % 59.6 % (36.0-66.0); WHITE BLOOD COUNT 3.7 10^3/uL (4.0-10.0)
[2019-11-21 09:13] LABS: PLATELET COUNT, AUTOMATED 24 10^3/uL (150-450)
[2019-11-24 15:05] LABS: BASO % 0.9 % (0.0-1.0); EOS % 0.9 % (0.0-3.0); HEMATOCRIT 22.4 % (36.0-47.0); HEMOGLOBIN 7.4 g/dl (12.0-15.5); LYMPH # 0.8 10^3/uL (1.5-5.0); LYMPH % 70.2 % (24.0-44.0); MEAN CORPUSCULAR HEMOGLOBIN 30.8 pg (27.0-33.0); MEAN CORPUSCULAR VOLUME 93.3 fl (80.0-96.0); MONO # 0.1 10^3/uL (0.0-0.8); NEUTROPHILS # 0.2 10^3/uL (1.5-8.5); NEUTROPHILS % 19.2 % (36.0-66.0); PLATELET COUNT, AUTOMATED 14 10^3/uL (150-450); WHITE BLOOD COUNT 1.1 10^3/uL (4.0-10.0)
[2019-11-25 09:02] LABS: BASO % 0.5 % (0.0-1.0); EOS % 1.5 % (0.0-3.0); HEMATOCRIT 24.4 % (36.0-47.0); HEMOGLOBIN 8.2 g/dl (12.0-15.5); LYMPH # 0.9 10^3/uL (1.5-5.0); LYMPH % 43.1 % (24.0-44.0); MEAN CORPUSCULAR HEMOGLOBIN 35.5 pg (27.0-33.0); MEAN CORPUSCULAR HGB CONC 33.6 g/dl (32.0-36.5); MEAN CORPUSCULAR VOLUME 105.6 fl (80.0-96.0); MONO # 0.2 10^3/uL (0.0-0.8); MONO % 8.4 % (0.0-5.0); NEUTROPHILS % 45.5 % (36.0-66.0); RED BLOOD COUNT 2.31 10^6/uL (4.00-5.40)
[2019-11-25 09:04] LABS: NEUTROPHILS # 0.9 10^3/uL (1.5-8.5); PLATELET COUNT, AUTOMATED 17 10^3/uL (150-450)
--- NOTE | 2019-11-25 11:27 | MEDONC ---
DATE: 09/29/2019 DIAGNOSIS: Myelodysplastic syndrome (MDS) CMML/MPN with significant cytopenias currently on decitabine chemotherapy. HISTORY OF PRESENT ILLNESS: Ms. Cotton is on regular monitoring of CBC and blood transfusion as needed, as well as decitabine chemotherapy for CMML/MDS/MPN. She reports no recent hospitalizations. She received one unit of packed red cells last week; but before that, she did not need any transfusion for at least 15 days. Her platelet counts have been consistently above the transfusion range. She reports a good appetite. Weight stable. No fevers. No night sweats. Her energy levels have improved lately. She still comes into the office in a wheelchair, but at home she does not use any walking aid, although sometimes she does use a walker when she has to walk long distances. She reports that she does housework and even light vacuuming. At present, she has had no headaches. No dizziness. No new changes in the right eye, although she was in follow-up with an eye doctor for a right eye problem. No chest pain. No shortness of breath. No cough. She still smokes and she was advised to quit smoking. No nausea. No vomiting. No abdominal pains. No bone pains. No diarrhea. No constipation. No urinary problems. She has had easy bruising usually on the upper extremities. No rectal bleeding. No urinary bleeding. No vaginal bleeding. No epistaxis and no gum bleeding. She normally has no edema, although she is on furosemide and Spironolactone diuretics. PHYSICAL EXAMINATION: VITAL SIGNS: Blood pressure 109/55, heart rate 56 per minutes, O2 saturation 99% on room air, temperature 97.6. Weight 81.7 kg. HEENT: Normocephalic, atraumatic. Pupils equal and reactive to light. No oral mucosal lesions. Pinkish conjunctivae. Anicteric sclerae. No palpable cervical lymphadenopathy. LUNGS: Fair air entry. No rales, no rhonchi, no wheeze. HEART: S1, S2 regular. ABDOMEN: Soft, nontender, no guarding. Positive bowel sounds. No palpable masses. EXTREMITIES: No calf swelling, no calf tenderness, and no pedal edema. No cyanosis. Mild ecchymosis on the upper extremities. NEUROLOGIC: Alert, oriented to time, place, and person. No lateralizing signs, although she came in a wheelchair. IMPRESSION AND PLAN: Ms. Cotton is on decitabine chemotherapy for CMML/MDS/MPN and is due for her next cycle next week.. Lately, her blood counts have improved such as she has not need a blood transfusion straight for two weeks; although, she did need a blood transfusion last week. We will continue to monitor her blood counts weekly with Procrit injections and blood transfusion as needed. Since she has not had any recent infections, we will monitor her white blood cell count for now and may consider filgrastim injection as needed in the future. MTDD
[2019-11-25 23:46] LABS: BASO % 2.1 % (0.0-1.0); EOS % 1.1 % (0.0-3.0); HEMATOCRIT 23.2 % (36.0-47.0); HEMOGLOBIN 7.6 g/dl (12.0-15.5); LYMPH # 0.7 10^3/uL (1.5-5.0); LYMPH % 74.5 % (24.0-44.0); MEAN CORPUSCULAR HEMOGLOBIN 31.8 pg (27.0-33.0); MEAN CORPUSCULAR HGB CONC 32.8 g/dl (32.0-36.5); MEAN CORPUSCULAR VOLUME 97.1 fl (80.0-96.0); MONO # 0.1 10^3/uL (0.0-0.8); MONO % 8.5 % (0.0-5.0); NEUTROPHILS # 0.1 10^3/uL (1.5-8.5); NEUTROPHILS % 13.8 % (36.0-66.0); PLATELET COUNT, AUTOMATED 30 10^3/uL (150-450); RED BLOOD COUNT 2.39 10^6/uL (4.00-5.40); WHITE BLOOD COUNT 0.9 10^3/uL (4.0-10.0)
[2019-11-26 06:54] LABS: BASO % 1.3 % (0.0-1.0); HEMATOCRIT 22.7 % (36.0-47.0); HEMOGLOBIN 7.2 g/dl (12.0-15.5); LYMPH # 0.5 10^3/uL (1.5-5.0); MEAN CORPUSCULAR HGB CONC 31.7 g/dl (32.0-36.5); MEAN CORPUSCULAR VOLUME 100.9 fl (80.0-96.0); MONO # 0.1 10^3/uL (0.0-0.8); NEUTROPHILS % 21.4 % (36.0-66.0); RED BLOOD COUNT 2.25 10^6/uL (4.00-5.40); WHITE BLOOD COUNT 0.8 10^3/uL (4.0-10.0)
[2019-11-26 06:55] LABS: NEUTROPHILS # 0.2 10^3/uL (1.5-8.5); PLATELET COUNT, AUTOMATED 68 10^3/uL (150-450)
[2019-11-28 09:31] LABS: BASO % 0.5 % (0.0-1.0); EOS % 1.1 % (0.0-3.0); HEMATOCRIT 25.1 % (36.0-47.0); HEMOGLOBIN 8.5 g/dl (12.0-15.5); LYMPH # 0.9 10^3/uL (1.5-5.0); LYMPH % 47.3 % (24.0-44.0); MEAN CORPUSCULAR HEMOGLOBIN 36.5 pg (27.0-33.0); MEAN CORPUSCULAR HGB CONC 33.9 g/dl (32.0-36.5); MEAN CORPUSCULAR VOLUME 107.7 fl (80.0-96.0); MONO # 0.1 10^3/uL (0.0-0.8); MONO % 6.9 % (0.0-5.0); NEUTROPHILS % 42.1 % (36.0-66.0); RED BLOOD COUNT 2.33 10^6/uL (4.00-5.40); WHITE BLOOD COUNT 1.9 10^3/uL (4.0-10.0)
[2019-11-28 09:34] LABS: NEUTROPHILS # 0.8 10^3/uL (1.5-8.5)
[2019-11-28 09:37] LABS: PLATELET COUNT, AUTOMATED 19 10^3/uL (150-450)
[2019-12-01 09:22] LABS: EOS % 0.5 % (0.0-3.0); HEMATOCRIT 23.3 % (36.0-47.0); HEMOGLOBIN 7.7 g/dl (12.0-15.5); LYMPH # 0.9 10^3/uL (1.5-5.0); LYMPH % 44.6 % (24.0-44.0); MEAN CORPUSCULAR HEMOGLOBIN 36.8 pg (27.0-33.0); MEAN CORPUSCULAR VOLUME 111.5 fl (80.0-96.0); MONO # 0.1 10^3/uL (0.0-0.8); MONO % 6.7 % (0.0-5.0); NEUTROPHILS % 46.7 % (36.0-66.0); RED BLOOD COUNT 2.09 10^6/uL (4.00-5.40); WHITE BLOOD COUNT 1.9 10^3/uL (4.0-10.0)
[2019-12-01 09:31] LABS: NEUTROPHILS # 0.9 10^3/uL (1.5-8.5); PLATELET COUNT, AUTOMATED 17 10^3/uL (150-450)
[2019-12-05 11:18] VITALS: BP 127/64
[2019-12-05 11:49] LABS: BASO % 1.5 % (0.0-1.0); EOS % 0.4 % (0.0-3.0); HEMATOCRIT 31.6 % (36.0-47.0); HEMOGLOBIN 10.4 g/dl (12.0-15.5); LYMPH # 1.1 10^3/uL (1.5-5.0); LYMPH % 42.1 % (24.0-44.0); MEAN CORPUSCULAR HEMOGLOBIN 34.8 pg (27.0-33.0); MEAN CORPUSCULAR HGB CONC 32.9 g/dl (32.0-36.5); MEAN CORPUSCULAR VOLUME 105.7 fl (80.0-96.0); MONO # 0.2 10^3/uL (0.0-0.8); MONO % 5.6 % (0.0-5.0); NEUTROPHILS # 1.3 10^3/uL (1.5-8.5); NEUTROPHILS % 49.6 % (36.0-66.0); RED BLOOD COUNT 2.99 10^6/uL (4.00-5.40); WHITE BLOOD COUNT 2.7 10^3/uL (4.0-10.0)
[2019-12-05 11:57] LABS: PLATELET COUNT, AUTOMATED 16 10^3/uL (150-450)
--- NOTE | 2019-12-05 12:04 | MEDONCPDOC ---
Medical Oncology Office Note Date of Service: Dec 05, 2019 Diagnosis/Treatment History Diagnosis; CMML with pancytopenia. Anemia, transfusion dependent. Thrombocytopenia requiring transfusions. Hematology history: CMML- diagnosed via BM bx 03/2019: - 03/20/19 - Leukoerythroblastic anemia- Hgb 7-range, thrombocytopenia 40s r celia, WBC in the 20s range with left shift and nucleated RBCs, scattered circulating blasts. Peripheral blood flow cytometry - no acute leukemia, no NHL. - 04/03/19 - BM Bx MDS/MPD at [facility]- Mild increased bone marrow blasts (5% by CD34 IHC), favor CMML - 1. FISH - negative t(9;22) BCR/ABL-1 gene rearrangement - no evidence of CML. Karyotype - mononucleosis 75 and 7, FISH: +deletion 17p supporting above diagnosis, at [facility]. -Decitabine chemotherapy started 05/09/2019 Interval History 64 yo F with CMML with pancytopenia currently on decitabine chemotherapy that presents to the office today for her 6th cycle. Her platelet count has decreased since last visit. Her Hgb has remained around baseline (she still receives epoetin alpha injections). Allergies Coded Allergies: losartan (Verified Allergy, Severe, throat swelling, 06/28/18) Home Medications Active Scripts Prochlorperazine Maleate (Prochlorperazine Maleate) 10 Mg Tablet, 10 MG PO Q6H for 7 Days, #30 TAB Prov:AAYUSH PERERA MD 08/12/19 Reported Medications Cholecalciferol (Vitamin D3) (Vitamin D3) 1,000 Unit Tablet, 1000 UNITS PO DAILY, TAB 08/03/19 Folic Acid (Folic Acid) 1 Mg Tablet, 1 MG PO DAILY DINNER 06/24/19 Amlodipine Besylate (Amlodipine Besylate) 5 Mg Tablet, 5 MG PO DAILY DINNER 06/24/19 Sodium Chloride (Nasal [place]) 44 Ml [place], 2 SPRAYS NA Q2H PRN for NASAL CONGESTION 06/24/19 Umeclidinium [place] (Incruse Ellipta) 62.5 Mcg Blst.w.dev, 1 PUFF INH DAILY 06/28/18 Insulin Glargine,Hum.rec.anlog (Basaglar Kwikpen U-100) 100 Unit/1 Ml Insuln.pen, 30 UNIT SC QHS 06/28/18 Insulin Human Lispro (Humalog) 100 Unit/1 Ml Vial, 1 DOSE SC TID SLIDING SCALE 06/28/18 Isosorbide Mononitrate (Isosorbide Mononitrate ER) 60 Mg Tab, 60 MG PO DAILY DINNER 09/03/16 Calcium Polycarbophil (Fibercon) 625 Mg Tab, 625 MG PO DAILY DINNER 04/15/16 Carvedilol (Carvedilol) 12.5 Mg Tab, 12.5 MG PO BID, TAB 04/15/16 Pravastatin Sodium (Pravastatin Sodium) 40 Mg Tab, 40 MG PO DAILY DINNER 04/15/16 Furosemide (Lasix) 40 Mg Tab, 40 MG PO BID AM AND MID AFTERNOON 06/28/13 Past Medical History Past Medical History: CMML Ischemic cardiomyopathy. CAD S/P stent. CKD stage IV. Atrophic left kidney. Prior history of polycythemia. Was apparently referred to pulmonology for HECTOR evaluation but states she was not ready to make that appointment. Asthma. Obesity. Type 2 diabetes. CHF. Hypercholesterolemia. anemia of chronic kidney disease folate deficiency, CMV IgG positive asthma, hypercholesteremia. Past Surgical History: Pacemaker with defibrillator placement December 2017. Family History: Mother - had history throat, thyroid and uterine cancers. Sister had diabetes and Lupus. Three brothers have CAD. No other history of malignancies or dyscrasias per patient. Social History: Smoking - 10 cigarettes a day since the age of 14. Quit in 2013, but commenced smoking again February 2019 about 10 cigarettes a day. Alcohol - Denies history of alcohol or recreational drug use. Review of Systems General: Reports: Normal Appetite; Denies: Chills, Night Sweats, Fatigue, Malaise Constitutional: Reports: Normal appetite; Denies: Chills, Fever, Malaise, Night Sweats, Weakness, Fatigue, Weight Loss, Lethargy, Other symptoms Eyes: Denies: Pain, Vision change, Conjunctivae inflammation, Eyelid inflammation, Redness, Other HEENT: Denies: Head Aches, Ear Pain, Dysphagia, Sinus Congestion, Post Nasal Drip, Sore Throat, Epistaxis, Other Symptoms Skin: Reports: Bruising; Denies: Rash, Lesions, Jaundice, Other Pulmonary: Denies: Dyspnea, Cough, Pleuritic Chest Pain, Other Symptoms Cardiovascular: Denies: Chest Pain, Palpitations, Orthopnea, Paroxysmal Noc. Dyspnea, Edema, Lt Headedness, Other Symptoms Gastrointestinal: Denies: Nausea, Vomiting, Abdominal Pain, Diarrhea, Constipation, Melena, Hematochezia, Other Symptoms Genitourinary: Denies: Dysuria, Frequency, Incontinence, Hematuria, Retention, Other Symptoms Hematologic: Reports: Bruising; Denies: Bleeding Excessively, Petecchia, Purpura, Enlarged Lymph Nodes, Other Hematologic Endocrine: Denies: Polydipsia, Polyphagia, Polyuria, Heat Intolerance, Cold Intolerance, Other Endocrine Sx Musculoskeletal: Denies: Neck pain, Shoulder pain, Arm pain, Back pain, Hand pain, Leg pain, Foot pain, Joint pain, Muscle pain, Spasms, Gout, Joint sweling, Muscle stiffness, Midthoracic pain, Other Neurological: Denies: Weakness, Numbness, Incoordination, Change in Speech, Confusion, Seizures, Other Symptoms Psych: Reports: Mood Normal; Denies: Anxiety, Depression Physical Examination General Exam: Positive: Alert, Cooperative, No Acute Distress, Oriented Times Three; Negative: Other Eye Exam: Positive: PERRLA, Conjunctiva & lids normal, EOMI; Negative: Sclera icteric ENT EXAM: Positive: Atraumatic, Mucous membr. moist/pink, Pharynx Normal, Tongue Midline, Nares Patent; Negative: Pharyngeal Edema Neck Exam: Positive: Supple; Negative: JVD, Thyromegaly, Lymphadenopathy Chest Exam: Positive: Clear to auscultation, Normal air movement; Negative: Rales, Rhonchi, Wheezing, Diminished, Other Heart Exam: Positive: Rate Normal, Regular Rhythm, Normal S1, Normal S2; Negative: Irregular Rhythm, Gallops, Murmurs, Rubs, Other Breast Exam: Positive: Symmetric Bilaterally Abdomen Exam: Positive: Normal bowel sounds; Negative: Soft, Tenderness, Hepatospenomegaly, Mass, Hernia, Other Extremity Exam: Positive: Normal pulses; Negative: Clubbing, Cyanosis, Edema, Tenderness, Swelling, Other Skin Exam: Positive: Nl turgor and temperature, Other skin issue (mild ecchymosis on upper extremities); Negative: Rash, Breakdown, Lesion Neuro Exam: Positive: Normal Speech; Negative: Normal Gait (. Came in a wheelchair) Psych Exam: Positive: Mental status NL, Mood NL, Oriented x 3; Negative: Anxiety Ht / Wt Ht / Wt Height:5 Feet 5.50 Inches Weight: 80.100 Kg Vital Signs Vital Signs Date Time Temp Pulse Resp B/P (MAP) Pulse Ox O2 Delivery O2 Flow Rate FiO2 12/05/19 11:18 96.9 54 16 127/64 (85) 18 Room Air Laboratory Data Laboratory Tests Test 12/05/19 11:05 Assessment/Plan Assessment CMML with 5% myeloblasts seen on bone marrow biopsy. Overall poor prognosis Patient is currently transfusion dependent. Plan The patient's blood counts initially improved after the third cycle of chemotherapy but has now again worsened. Continue with epoetin alpha 40,000 units weekly dose for CKD stage 4 and MDS. For packed red cell transfusion and platelet transfusion as needed. We will arrange a platelet transfusion today since platelet count significantly low at 16 and patient has increased bruising and she is for chemotherapy this week. Incidentally, the patient received packed red cell transfusion for symptomatic anemia last week. CBC to be checked biweekly with blood transfusion and platelet transfusion as needed and epoetin alpha injections weekly as needed. For cycle 6 decitabine chemotherapy this week. Discussed the possibility of switching to an oral chemotherapeutic agent Inqovi pending insurance approval. Risks include cytopenias, hepatic impairment, cardiac arrhythmia, skin rash, among others. She was given printed information on Inqovi. We also talked about sending her to an MDS specialist, such as in [place] or [place] for consideration of bone marrow transplant, but Ms. Cotton declined a referral. CC TO: CC TO: Primary Care Provider: Ana Paul MD, FLORENCE P. MD Dec 05, 2019 12:04
[2019-12-05 12:19] LABS: ALBUMIN 3.7 GM/DL (3.2-5.2); BILIRUBIN,TOTAL 0.7 MG/DL (0.2-1.0); CALCIUM LEVEL 10.2 MG/DL (8.8-10.2); CREATININE FOR GFR 1.87 MG/DL (0.55-1.30); GLOMERULAR FILTRATION RATE 28.9 (>45); POTASSIUM SERUM 4.6 MEQ/L (3.5-5.1); TOTAL PROTEIN 7.2 GM/DL (6.4-8.2)
[2019-12-05 12:48] VITALS: BP 117/69
[2019-12-05 14:10] VITALS: BP 117/54
[2019-12-05] MEDS: SODIUM CHLORIDE 0.9% INJ 10 ML SYR IV PRN (14:59)
[2019-12-05 15:23] VITALS: BP 119/58
[2019-12-06 13:02] VITALS: BP 116/62
[2019-12-06] MEDS: SODIUM CHLORIDE 0.9% INJ 10 ML SYR IV PRN (14:25)
[2019-12-07] MEDS: SODIUM CHLORIDE 0.9% INJ 10 ML SYR IV PRN (15:00)
[2019-12-08 13:15] VITALS: BP 106/56
[2019-12-08 13:49] LABS: BASO # 0.1 10^3/uL (0.0-0.2); BASO % 2.4 % (0.0-1.0); EOS % 0.4 % (0.0-3.0); HEMATOCRIT 30.5 % (36.0-47.0); HEMOGLOBIN 10.1 g/dl (12.0-15.5); LYMPH # 0.9 10^3/uL (1.5-5.0); MEAN CORPUSCULAR HEMOGLOBIN 34.9 pg (27.0-33.0); MEAN CORPUSCULAR HGB CONC 33.1 g/dl (32.0-36.5); MEAN CORPUSCULAR VOLUME 105.5 fl (80.0-96.0); MONO # 0.2 10^3/uL (0.0-0.8); MONO % 6.3 % (0.0-5.0); NEUTROPHILS # 1.4 10^3/uL (1.5-8.5); NEUTROPHILS % 55.5 % (36.0-66.0); RED BLOOD COUNT 2.89 10^6/uL (4.00-5.40); WHITE BLOOD COUNT 2.5 10^3/uL (4.0-10.0)
[2019-12-08 13:50] LABS: PLATELET COUNT, AUTOMATED 17 10^3/uL (150-450)
[2019-12-08] MEDS: SODIUM CHLORIDE 0.9% INJ 10 ML SYR IV PRN (15:01)
[2019-12-09 10:24] LABS: BASO % 1.1 % (0.0-1.0); HEMATOCRIT 25.3 % (36.0-47.0); HEMOGLOBIN 8.2 g/dl (12.0-15.5); LYMPH # 0.5 10^3/uL (1.5-5.0); LYMPH % 53.4 % (24.0-44.0); MEAN CORPUSCULAR HEMOGLOBIN 30.5 pg (27.0-33.0); MEAN CORPUSCULAR HGB CONC 32.4 g/dl (32.0-36.5); MEAN CORPUSCULAR VOLUME 94.1 fl (80.0-96.0); MONO # 0.1 10^3/uL (0.0-0.8); MONO % 10.2 % (0.0-5.0); NEUTROPHILS % 30.8 % (36.0-66.0); RED BLOOD COUNT 2.69 10^6/uL (4.00-5.40); WHITE BLOOD COUNT 0.9 10^3/uL (4.0-10.0)
[2019-12-09 10:25] LABS: NEUTROPHILS # 0.3 10^3/uL (1.5-8.5); PLATELET COUNT, AUTOMATED 27 10^3/uL (150-450)
[2019-12-12 08:52] VITALS: BP 105/57
[2019-12-12 09:17] LABS: BASO % 1.7 % (0.0-1.0); EOS % 0.4 % (0.0-3.0); HEMATOCRIT 27.8 % (36.0-47.0); HEMOGLOBIN 9.2 g/dl (12.0-15.5); LYMPH # 0.8 10^3/uL (1.5-5.0); LYMPH % 32.5 % (24.0-44.0); MEAN CORPUSCULAR HEMOGLOBIN 34.7 pg (27.0-33.0); MEAN CORPUSCULAR HGB CONC 33.1 g/dl (32.0-36.5); MEAN CORPUSCULAR VOLUME 104.9 fl (80.0-96.0); MONO # 0.2 10^3/uL (0.0-0.8); MONO % 6.7 % (0.0-5.0); NEUTROPHILS # 1.4 10^3/uL (1.5-8.5); NEUTROPHILS % 57.4 % (36.0-66.0); RED BLOOD COUNT 2.65 10^6/uL (4.00-5.40); WHITE BLOOD COUNT 2.4 10^3/uL (4.0-10.0)
[2019-12-12 09:21] LABS: PLATELET COUNT, AUTOMATED 18 10^3/uL (150-450)
[2019-12-15 09:08] LABS: BASO % 1.5 % (0.0-1.0); EOS % 0.5 % (0.0-3.0); HEMOGLOBIN 8.1 g/dl (12.0-15.5); LYMPH # 0.8 10^3/uL (1.5-5.0); LYMPH % 39.7 % (24.0-44.0); MEAN CORPUSCULAR HEMOGLOBIN 34.2 pg (27.0-33.0); MEAN CORPUSCULAR HGB CONC 32.4 g/dl (32.0-36.5); MEAN CORPUSCULAR VOLUME 105.5 fl (80.0-96.0); MONO # 0.1 10^3/uL (0.0-0.8); MONO % 4.5 % (0.0-5.0); NEUTROPHILS % 49.3 % (36.0-66.0); RED BLOOD COUNT 2.37 10^6/uL (4.00-5.40)
[2019-12-15 09:12] LABS: PLATELET COUNT, AUTOMATED 14 10^3/uL (150-450)
[2019-12-15 10:09] VITALS: BP 108/56
[2019-12-15 11:36] VITALS: BP 108/58
[2019-12-15 15:09] LABS: BILIRUBIN,TOTAL 0.7 MG/DL (0.2-1.0); CALCIUM LEVEL 8.4 MG/DL (8.8-10.2); CREATININE FOR GFR 1.73 MG/DL (0.55-1.30); GLOMERULAR FILTRATION RATE 31.6 (>45); POTASSIUM SERUM 3.4 MEQ/L (3.5-5.1); TOTAL PROTEIN 6.5 GM/DL (6.4-8.2)
[2019-12-19 09:34] LABS: BASO % 0.7 % (0.0-1.0); EOS % 0.7 % (0.0-3.0); HEMATOCRIT 22.7 % (36.0-47.0); HEMOGLOBIN 7.7 g/dl (12.0-15.5); LYMPH # 0.9 10^3/uL (1.5-5.0); LYMPH % 61.6 % (24.0-44.0); MEAN CORPUSCULAR HGB CONC 33.9 g/dl (32.0-36.5); MEAN CORPUSCULAR VOLUME 103.2 fl (80.0-96.0); MONO # 0.1 10^3/uL (0.0-0.8); NEUTROPHILS # 0.5 10^3/uL (1.5-8.5); NEUTROPHILS % 29.7 % (36.0-66.0); PLATELET COUNT, AUTOMATED 20 10^3/uL (150-450); WHITE BLOOD COUNT 1.5 10^3/uL (4.0-10.0)
[2019-12-19] MEDS: SODIUM CHLORIDE 0.9% INJ 10 ML SYR IV PRN ×2 (09:47→13:47)
[2019-12-19 11:12] VITALS: BP 115/60
[2019-12-19 11:35] VITALS: BP 122/61
[2019-12-19 12:52] VITALS: BP 124/56
[2019-12-19 13:09] VITALS: BP 122/56
[2019-12-19 14:43] VITALS: BP 130/57
[2019-12-22 09:44] LABS: BASO % 0.7 % (0.0-1.0); EOS % 0.7 % (0.0-3.0); HEMATOCRIT 29.2 % (36.0-47.0); HEMOGLOBIN 9.6 g/dl (12.0-15.5); LYMPH # 0.9 10^3/uL (1.5-5.0); LYMPH % 63.5 % (24.0-44.0); MEAN CORPUSCULAR HEMOGLOBIN 31.9 pg (27.0-33.0); MEAN CORPUSCULAR HGB CONC 32.9 g/dl (32.0-36.5); MONO # 0.1 10^3/uL (0.0-0.8); MONO % 9.5 % (0.0-5.0); NEUTROPHILS % 24.9 % (36.0-66.0); RED BLOOD COUNT 3.01 10^6/uL (4.00-5.40); WHITE BLOOD COUNT 1.4 10^3/uL (4.0-10.0)
[2019-12-22 09:46] LABS: NEUTROPHILS # 0.3 10^3/uL (1.5-8.5); PLATELET COUNT, AUTOMATED 11 10^3/uL (150-450)
[2019-12-22 09:50] LABS: ALBUMIN 3.3 GM/DL (3.2-5.2); BILIRUBIN,TOTAL 0.8 MG/DL (0.2-1.0); CALCIUM LEVEL 9.5 MG/DL (8.8-10.2); CREATININE FOR GFR 2.1 MG/DL (0.55-1.30); GLOMERULAR FILTRATION RATE 25.2 (>45); POTASSIUM SERUM 4.2 MEQ/L (3.5-5.1); TOTAL PROTEIN 7.2 GM/DL (6.4-8.2)
[2019-12-22 10:47] VITALS: BP 126/62
[2019-12-22 12:12] VITALS: BP 114/61
[2019-12-22 14:07] VITALS: BP 112/58
[2019-12-22 15:42] VITALS: BP 126/56
[2019-12-24 09:11] LABS: ALBUMIN 3.3 GM/DL (3.2-5.2); BILIRUBIN,TOTAL 0.8 MG/DL (0.2-1.0); CALCIUM LEVEL 8.7 MG/DL (8.8-10.2); CREATININE FOR GFR 1.81 MG/DL (0.55-1.30); POTASSIUM SERUM 3.5 MEQ/L (3.5-5.1); TOTAL PROTEIN 6.3 GM/DL (6.4-8.2)
[2019-12-24 10:07] LABS: ALBUMIN 3.2 GM/DL (3.2-5.2); BILIRUBIN,TOTAL 0.8 MG/DL (0.2-1.0); CALCIUM LEVEL 8.9 MG/DL (8.8-10.2); CREATININE FOR GFR 1.95 MG/DL (0.55-1.30); GLOMERULAR FILTRATION RATE 27.5 (>45); POTASSIUM SERUM 3.5 MEQ/L (3.5-5.1); TOTAL PROTEIN 6.8 GM/DL (6.4-8.2)
[2019-12-26 09:30] LABS: BASO % 0.9 % (0.0-1.0); HEMATOCRIT 25.4 % (36.0-47.0); HEMOGLOBIN 8.3 g/dl (12.0-15.5); LYMPH # 0.7 10^3/uL (1.5-5.0); LYMPH % 64.6 % (24.0-44.0); MEAN CORPUSCULAR HEMOGLOBIN 32.5 pg (27.0-33.0); MEAN CORPUSCULAR HGB CONC 32.7 g/dl (32.0-36.5); MEAN CORPUSCULAR VOLUME 99.6 fl (80.0-96.0); MONO # 0.1 10^3/uL (0.0-0.8); MONO % 8.8 % (0.0-5.0); NEUTROPHILS % 24.8 % (36.0-66.0); RED BLOOD COUNT 2.55 10^6/uL (4.00-5.40); WHITE BLOOD COUNT 1.1 10^3/uL (4.0-10.0)
[2019-12-26 09:38] LABS: NEUTROPHILS # 0.3 10^3/uL (1.5-8.5); PLATELET COUNT, AUTOMATED 14 10^3/uL (150-450)
[2019-12-26 10:56] VITALS: BP 109/62
[2019-12-26 12:14] VITALS: BP 119/59
[2019-12-26 13:35] VITALS: BP 115/59
[2019-12-29] VITALS (7 sets, daily range): BP systolic 108–127; BP diastolic 52–60
[2019-12-29 08:58] LABS: BASO % 1.1 % (0.0-1.0); HEMATOCRIT 22.4 % (36.0-47.0); HEMOGLOBIN 7.4 g/dl (12.0-15.5); LYMPH # 0.7 10^3/uL (1.5-5.0); LYMPH % 70.7 % (24.0-44.0); MEAN CORPUSCULAR HEMOGLOBIN 32.9 pg (27.0-33.0); MEAN CORPUSCULAR VOLUME 99.6 fl (80.0-96.0); MONO # 0.1 10^3/uL (0.0-0.8); MONO % 8.7 % (0.0-5.0); NEUTROPHILS # 0.2 10^3/uL (1.5-8.5); NEUTROPHILS % 18.4 % (36.0-66.0); PLATELET COUNT, AUTOMATED 24 10^3/uL (150-450); RED BLOOD COUNT 2.25 10^6/uL (4.00-5.40); WHITE BLOOD COUNT 0.9 10^3/uL (4.0-10.0)
[2020-01-02 09:40] VITALS: BP 123/63
[2020-01-02 09:40] LABS: BASO % 1.1 % (0.0-1.0); HEMATOCRIT 26.9 % (36.0-47.0); HEMOGLOBIN 8.8 g/dl (12.0-15.5); LYMPH # 0.7 10^3/uL (1.5-5.0); LYMPH % 73.9 % (24.0-44.0); MEAN CORPUSCULAR HEMOGLOBIN 30.9 pg (27.0-33.0); MEAN CORPUSCULAR HGB CONC 32.7 g/dl (32.0-36.5); MEAN CORPUSCULAR VOLUME 94.4 fl (80.0-96.0); MONO # 0.1 10^3/uL (0.0-0.8); NEUTROPHILS % 10.8 % (36.0-66.0); RED BLOOD COUNT 2.85 10^6/uL (4.00-5.40)
[2020-01-02 09:47] LABS: NEUTROPHILS # 0.1 10^3/uL (1.5-8.5); PLATELET COUNT, AUTOMATED 15 10^3/uL (150-450)
[2020-01-02 09:48] LABS: WHITE BLOOD COUNT 0.9 10^3/uL (4.0-10.0)
[2020-01-02 10:02] LABS: BILIRUBIN,TOTAL 0.7 MG/DL (0.2-1.0); CALCIUM LEVEL 9.1 MG/DL (8.8-10.2); CREATININE FOR GFR 2.26 MG/DL (0.55-1.30); GLOMERULAR FILTRATION RATE 23.2 (>45); POTASSIUM SERUM 4.1 MEQ/L (3.5-5.1); TOTAL PROTEIN 7.1 GM/DL (6.4-8.2)
--- NOTE | 2020-01-02 10:39 | MEDONCPDOC ---
Medical Oncology Office Note Date of Service: Jan 02, 2020 Diagnosis/Treatment History Diagnosis; CMML with pancytopenia. Anemia, transfusion dependent. Thrombocytopenia requiring transfusions. Hematology history: CMML- diagnosed via BM bx 03/2019: - 03/20/19 - Leukoerythroblastic anemia- Hgb 7-range, thrombocytopenia 40s range, WBC in the 20s range with left shift and nucleated RBCs, scattered circulating blasts. Peripheral blood flow cytometry - no acute leukemia, no NHL. - 04/03/19 - BM Bx MDS/MPD at [facility]- Mild increased bone marrow blasts (5% by CD34 IHC), favor CMML - 1. FISH - negative t(9;22) BCR/ABL-1 gene rearrangement - no evidence of CML. Karyotype - mononucleosis 75 and 7, FISH: +deletion 17p supporting above diagnosis, at [facility]. -Decitabine chemotherapy started 05/09/2019 -Switched to inqovi (decitabine/cedazuridine) oral medication 12/2019. Next cycle to be started 01/23/2020. Interval History Farida Cotton is a 64-year-old woman with CMML, previously on decitabine. I had talked to her about switching to inqovi (decitabine/cedazuridine) on her last visit here and she agreed to this switch. I had advised her to start this on her next visit with me, which was scheduled today. I also instructed pharmacy that this was not to started until 01/02/2020, but unfortunately the patient started this a week ago. She was here today for a follow-up appointment. Reports that she developed nausea while on chemotherapy. She currently has antiemetics for this. She has not had any recurring infections nor recent infections. No bleeding issues besides easy bruising. She is currently on continued monitoring of blood counts twice a week. Allergies Coded Allergies: losartan (Verified Allergy, Severe, throat swelling, 06/28/18) Home Medications Active Scripts Acyclovir (Acyclovir) 400 Mg Tablet, 1 TAB PO BID for 30 Days, #60 TAB 1 Refill Prov:RAFAELA SONI MD 01/02/20 Levofloxacin (Levofloxacin) 500 Mg Tablet, 1 TAB PO DAILY, #30 TAB Prov:RAFAELA SONI MD 01/02/20 Decitabine/Cedazuridine (Inqovi 35 mg-100 mg Tablet) 35 Mg-100 Mg Tablet, 1 TAB PO DAILY for 5 Days, #5 TAB 3 Refills 1 tablet by mouth once daily on days 1 to 5 of each 28-day treatment cycle Prov:RAFAELA SONI MD 12/06/19 Prochlorperazine Maleate (Prochlorperazine Maleate) 10 Mg Tablet, 10 MG PO Q6H for 7 Days, #30 TAB Prov:AAYUSH PERERA MD 08/12/19 Reported Medications Cholecalciferol (Vitamin D3) (Vitamin D3) 1,000 Unit Tablet, 1000 UNITS PO DAILY, TAB 08/03/19 Folic Acid (Folic Acid) 1 Mg Tablet, 1 MG PO DAILY DINNER 06/24/19 Amlodipine Besylate (Amlodipine Besylate) 5 Mg Tablet, 5 MG PO DAILY DINNER 06/24/19 Sodium Chloride (Nasal [place]) 44 Ml [place], 2 SPRAYS NA Q2H PRN for NASAL CONGESTION 06/24/19 Umeclidinium [place] (Incruse Ellipta) 62.5 Mcg Blst.w.dev, 1 PUFF INH DAILY 06/28/18 Insulin Glargine,Hum.rec.anlog (Basaglar Kwikpen U-100) 100 Unit/1 Ml Insuln.pen, 30 UNIT SC QHS 06/28/18 Insulin Human Lispro (Humalog) 100 Unit/1 Ml Vial, 1 DOSE SC TID SLIDING SCALE 06/28/18 Isosorbide Mononitrate (Isosorbide Mononitrate ER) 60 Mg Tab, 60 MG PO DAILY DINNER 09/03/16 Calcium Polycarbophil (Fibercon) 625 Mg Tab, 625 MG PO DAILY DINNER 04/15/16 Carvedilol (Carvedilol) 12.5 Mg Tab, 12.5 MG PO BID, TAB 04/15/16 Pravastatin Sodium (Pravastatin Sodium) 40 Mg Tab, 40 MG PO DAILY DINNER 04/15/16 Furosemide (Lasix) 40 Mg Tab, 40 MG PO BID AM AND MID AFTERNOON 06/28/13 Past Medical History Past Medical History: CMML Ischemic cardiomyopathy. CAD S/P stent. CKD stage IV. Atrophic left kidney. Prior history of polycythemia. Was apparently referred to pulmonology for HECTOR evaluation but states she was not ready to make that appointment. Asthma. Obesity. Type 2 diabetes. CHF. Hypercholesterolemia. anemia of chronic kidney disease folate deficiency, CMV IgG positive asthma, hypercholesteremia. Past Surgical History: Pacemaker with defibrillator placement December 2017. Family History: Mother - had history throat, thyroid and uterine cancers. Sister had diabetes and Lupus. Three brothers have CAD. No other history of malignancies or dyscrasias per patient. Social History: Smoking - 10 cigarettes a day since the age of 14. Quit in 2013, but commenced smoking again February 2019 about 10 cigarettes a day. Alcohol - Denies history of alcohol or recreational drug use. Review of Systems General: Reports: Fatigue, Normal Appetite; Denies: Chills, Night Sweats, Malaise Constitutional: Reports: Normal appetite; Denies: Chills, Fever, Malaise, Night Sweats, Weakness, Fatigue, Weight Loss, Lethargy, Other symptoms Eyes: Denies: Pain, Vision change, Conjunctivae inflammation, Eyelid inflammation, Redness, Other HEENT: Denies: Head Aches, Ear Pain, Dysphagia, Sinus Congestion, Post Nasal Drip, Sore Throat, Epistaxis, Other Symptoms Skin: Reports: Bruising; Denies: Rash, Lesions, Jaundice, Other Pulmonary: Denies: Dyspnea, Cough, Pleuritic Chest Pain, Other Symptoms Cardiovascular: Denies: Chest Pain, Palpitations, Orthopnea, Paroxysmal Noc. Dyspnea, Edema, Lt Headedness, Other Symptoms Gastrointestinal: Denies: Nausea, Vomiting, Abdominal Pain, Diarrhea, Constipa tion, Melena, Hematochezia, Other Symptoms Genitourinary: Denies: Dysuria, Frequency, Incontinence, Hematuria, Retention, Other Symptoms Hematologic: Reports: Bruising; Denies: Bleeding Excessively, Petecchia, Purpura, Enlarged Lymph Nodes, Other Hematologic Endocrine: Denies: Polydipsia, Polyphagia, Polyuria, Heat Intolerance, Cold Intolerance, Other Endocrine Sx Musculoskeletal: Denies: Neck pain, Shoulder pain, Arm pain, Back pain, Hand pain, Leg pain, Foot pain, Joint pain, Muscle pain, Spasms, Gout, Joint sweling, Muscle stiffness, Midthoracic pain, Other Neurological: Reports: Weakness; Denies: Numbness, Incoordination, Change in Speech, Confusion, Seizures, Other Symptoms Psych: Reports: Mood Normal; Denies: Anxiety, Depression Physical Examination General Exam: Positive: Alert, Cooperative, No Acute Distress, Oriented Times Three; Negative: Mild Distress, Moderate Distress, Other Eye Exam: Positive: PERRLA, Conjunctiva & lids normal, EOMI; Negative: Sclera icteric ENT EXAM: Positive: Atraumatic, Mucous membr. moist/pink, Pharynx Normal, Tongue Midline, Nares Patent; Negative: Pharyngeal Edema Neck Exam: Positive: Supple; Negative: JVD, Thyromegaly, Lymphadenopathy Chest Exam: Positive: Clear to auscultation, Normal air movement; Negative: Rales, Rhonchi, Wheezing, Diminished, Other Heart Exam: Positive: Rate Normal, Regular Rhythm, Normal S1, Normal S2; Negative: Irregular Rhythm, Gallops, Murmurs, Rubs, Other Breast Exam: Positive: Symmetric Bilaterally Abdomen Exam: Positive: Normal bowel sounds; Negative: Soft, Tenderness, Hepatospenomegaly, Mass, Hernia, Other Extremity Exam: Positive: Normal pulses; Negative: Clubbing, Cyanosis, Edema, Tenderness, Swelling, Other Skin Exam: Positive: Nl turgor and temperature, Other skin issue (mild ecchymosis on upper extremities); Negative: Rash, Breakdown, Lesion Neuro Exam: Positive: Normal Speech; Negative: Normal Gait (. Came in a wheelchair) Psych Exam: Positive: Mental status NL, Mood NL, Oriented x 3; Negative: Anxiety Ht / Wt Ht / Wt Height:5 Feet 5 Inches Weight: 79.200 Kg Vital Signs Vital Signs Date Time Temp Pulse Resp B/P (MAP) Pulse Ox O2 Delivery O2 Flow Rate FiO2 01/02/20 09:40 97.0 57 16 123/63 (83) 98 Room Air Laboratory Data Laboratory Tests Test 01/02/20 09:07 Blood Urea Nitrogen 56 MG/DL (7-18) H Creatinine 2.26 MG/DL (0.55-1.30) H Glomerular Filtration Rate 23.2 (>45) L Fasting Glucose 251 MG/DL (70-100) H Calcium Level 9.1 MG/DL (8.8-10.2) Total Bilirubin 0.7 MG/DL (0.2-1.0) Aspartate Amino Transf (AST/SGOT) 13 U/L (7-37) Alanine Aminotransferase (ALT/SGPT) 19 U/L (12-78) Total Protein 7.1 GM/DL (6.4-8.2) Sodium Level 132 MEQ/L (136-145) L Albumin 3.0 GM/DL (3.2-5.2) L Alkaline Phosphatase 96 U/L (45-117) Potassium Level 4.1 MEQ/L (3.5-5.1) Chloride Level 100 MEQ/L (98-107) Carbon Dioxide Level 26 MEQ/L (21-32) Anion Gap 6 MEQ/L (8-16) L Laboratory Tests 01/02/20 09:07 Assessment/Plan Assessment CMML with 5% myeloblasts seen on bone marrow biopsy. Pancytopenia secondary to CMML/MDS. Overall poor prognosis Patient is currently transfusion dependent. Plan The patient's pancytopenia initially improved after the third cycle of chemotherapy but has now again worsened. Continue with epoetin alpha 40,000 units weekly dose for CKD stage 4 and MDS. CBC to be checked biweekly with blood transfusion and platelet transfusion as needed. Also on epoetin alpha injections for moderate anemia. Filgrastim injections biweekly with CBC check for significant neutropenia/leukopenia. Prophylactic Antiviral medication and antibacterial medication prescribed for patient as she has had significant neutropenia. Previously on decitabine chemotherapy, now on inqovi (decitabine/cedazuridine). Next cycle to be started 01/23/2020. She will be seen for a follow-up appointment on that day and was told to hold the next dose until we've seen her blood counts. We again talked about sending her to an MDS specialist, such as in [place] or [place] for consideration of bone marrow transplant, but Ms. Cotton declined a referral. She informed me that she is being considered for cataract surgery. She would need platelet transfusion prior to cataract surgery, although this is usually a bloodless procedure. CC TO: CC TO: Primary Care Provider: Ana Paul MD, FLORENCE P. MD Jan 02, 2020 10:39
[2020-01-05] VITALS (7 sets, daily range): BP systolic 108–125; BP diastolic 47–61
[2020-01-05] MEDS: SODIUM CHLORIDE 0.9% INJ 10 ML SYR IV PRN ×2 (07:51→12:42)
[2020-01-05 08:07] LABS: HEMATOCRIT 22.9 % (36.0-47.0); HEMOGLOBIN 7.4 g/dl (12.0-15.5); LYMPH # 0.6 10^3/uL (1.5-5.0); LYMPH % 63.6 % (24.0-44.0); MEAN CORPUSCULAR HEMOGLOBIN 30.6 pg (27.0-33.0); MEAN CORPUSCULAR HGB CONC 32.3 g/dl (32.0-36.5); MEAN CORPUSCULAR VOLUME 94.6 fl (80.0-96.0); MONO # 0.2 10^3/uL (0.0-0.8); MONO % 16.2 % (0.0-5.0); NEUTROPHILS % 17.2 % (36.0-66.0); RED BLOOD COUNT 2.42 10^6/uL (4.00-5.40)
[2020-01-05 08:12] LABS: NEUTROPHILS # 0.2 10^3/uL (1.5-8.5); PLATELET COUNT, AUTOMATED 16 10^3/uL (150-450)
[2020-01-09 08:25] LABS: BASO % 0.8 % (0.0-1.0); EOS % 0.8 % (0.0-3.0); HEMATOCRIT 31.1 % (36.0-47.0); HEMOGLOBIN 10.4 g/dl (12.0-15.5); LYMPH # 0.7 10^3/uL (1.5-5.0); MEAN CORPUSCULAR HEMOGLOBIN 31.3 pg (27.0-33.0); MEAN CORPUSCULAR HGB CONC 33.4 g/dl (32.0-36.5); MEAN CORPUSCULAR VOLUME 93.7 fl (80.0-96.0); MONO # 0.3 10^3/uL (0.0-0.8); NEUTROPHILS % 15.2 % (36.0-66.0); RED BLOOD COUNT 3.32 10^6/uL (4.00-5.40); WHITE BLOOD COUNT 1.3 10^3/uL (4.0-10.0)
[2020-01-09 08:48] LABS: ALBUMIN 3.2 GM/DL (3.2-5.2); BILIRUBIN,TOTAL 0.7 MG/DL (0.2-1.0); CALCIUM LEVEL 9.1 MG/DL (8.8-10.2); CREATININE FOR GFR 2.25 MG/DL (0.55-1.30); GLOMERULAR FILTRATION RATE 23.3 (>45); POTASSIUM SERUM 4.1 MEQ/L (3.5-5.1); TOTAL PROTEIN 7.1 GM/DL (6.4-8.2)
[2020-01-09 09:11] LABS: NEUTROPHILS # 0.2 10^3/uL (1.5-8.5); PLATELET COUNT, AUTOMATED 21 10^3/uL (150-450)
[2020-01-11 09:07] LABS: BASO % 0.8 % (0.0-1.0); HEMATOCRIT 26.9 % (36.0-47.0); HEMOGLOBIN 8.8 g/dl (12.0-15.5); LYMPH # 0.8 10^3/uL (1.5-5.0); LYMPH % 59.1 % (24.0-44.0); MEAN CORPUSCULAR HEMOGLOBIN 31.1 pg (27.0-33.0); MEAN CORPUSCULAR HGB CONC 32.7 g/dl (32.0-36.5); MEAN CORPUSCULAR VOLUME 95.1 fl (80.0-96.0); MONO # 0.2 10^3/uL (0.0-0.8); MONO % 18.2 % (0.0-5.0); NEUTROPHILS % 17.4 % (36.0-66.0); RED BLOOD COUNT 2.83 10^6/uL (4.00-5.40); WHITE BLOOD COUNT 1.3 10^3/uL (4.0-10.0)
[2020-01-11 09:31] LABS: NEUTROPHILS # 0.2 10^3/uL (1.5-8.5); PLATELET COUNT, AUTOMATED 19 10^3/uL (150-450)
[2020-01-16] VITALS (10 sets, daily range): BP systolic 107–123; BP diastolic 52–59
[2020-01-16 08:43] LABS: BASO % 1.2 % (0.0-1.0); HEMATOCRIT 23.7 % (36.0-47.0); HEMOGLOBIN 7.6 g/dl (12.0-15.5); LYMPH # 0.9 10^3/uL (1.5-5.0); LYMPH % 53.3 % (24.0-44.0); MEAN CORPUSCULAR HEMOGLOBIN 30.6 pg (27.0-33.0); MEAN CORPUSCULAR HGB CONC 32.1 g/dl (32.0-36.5); MEAN CORPUSCULAR VOLUME 95.6 fl (80.0-96.0); MONO # 0.4 10^3/uL (0.0-0.8); NEUTROPHILS % 22.5 % (36.0-66.0); RED BLOOD COUNT 2.48 10^6/uL (4.00-5.40); WHITE BLOOD COUNT 1.7 10^3/uL (4.0-10.0)
[2020-01-16 08:46] LABS: NEUTROPHILS # 0.4 10^3/uL (1.5-8.5); PLATELET COUNT, AUTOMATED 22 10^3/uL (150-450)
[2020-01-19 08:34] LABS: BASO % 1.1 % (0.0-1.0); HEMATOCRIT 28.3 % (36.0-47.0); HEMOGLOBIN 9.2 g/dl (12.0-15.5); LYMPH # 0.8 10^3/uL (1.5-5.0); LYMPH % 23.1 % (24.0-44.0); MEAN CORPUSCULAR HEMOGLOBIN 30.9 pg (27.0-33.0); MEAN CORPUSCULAR HGB CONC 32.5 g/dl (32.0-36.5); MONO # 0.9 10^3/uL (0.0-0.8); MONO % 24.4 % (0.0-5.0); NEUTROPHILS # 1.8 10^3/uL (1.5-8.5); NEUTROPHILS % 48.9 % (36.0-66.0); PLATELET COUNT, AUTOMATED 21 10^3/uL (150-450); RED BLOOD COUNT 2.98 10^6/uL (4.00-5.40); WHITE BLOOD COUNT 3.6 10^3/uL (4.0-10.0)
[2020-01-23 08:24] LABS: BASO % 1.3 % (0.0-1.0); EOS % 0.3 % (0.0-3.0); HEMATOCRIT 26.9 % (36.0-47.0); HEMOGLOBIN 8.6 g/dl (12.0-15.5); LYMPH % 30.7 % (24.0-44.0); MEAN CORPUSCULAR HEMOGLOBIN 30.8 pg (27.0-33.0); MEAN CORPUSCULAR VOLUME 96.4 fl (80.0-96.0); MONO # 0.7 10^3/uL (0.0-0.8); MONO % 23.6 % (0.0-5.0); NEUTROPHILS # 1.2 10^3/uL (1.5-8.5); NEUTROPHILS % 38.6 % (36.0-66.0); RED BLOOD COUNT 2.79 10^6/uL (4.00-5.40); WHITE BLOOD COUNT 3.1 10^3/uL (4.0-10.0)
[2020-01-23 08:26] LABS: PLATELET COUNT, AUTOMATED 20 10^3/uL (150-450)
[2020-01-26 08:33] LABS: HEMATOCRIT 25.1 % (36.0-47.0); HEMOGLOBIN 7.9 g/dl (12.0-15.5); LYMPH # 0.8 10^3/uL (1.5-5.0); LYMPH % 25.4 % (24.0-44.0); MEAN CORPUSCULAR HEMOGLOBIN 30.7 pg (27.0-33.0); MEAN CORPUSCULAR HGB CONC 31.5 g/dl (32.0-36.5); MEAN CORPUSCULAR VOLUME 97.7 fl (80.0-96.0); MONO # 0.5 10^3/uL (0.0-0.8); MONO % 16.5 % (0.0-5.0); NEUTROPHILS # 1.6 10^3/uL (1.5-8.5); NEUTROPHILS % 53.8 % (36.0-66.0); RED BLOOD COUNT 2.57 10^6/uL (4.00-5.40)
[2020-01-26 08:34] LABS: PLATELET COUNT, AUTOMATED 17 10^3/uL (150-450)
[2020-01-26 10:15] VITALS: BP 109/53
[2020-01-26 10:34] VITALS: BP 101/49
[2020-01-26 11:21] VITALS: BP 103/53
[2020-01-26 11:51] VITALS: BP 100/60
[2020-01-30 09:07] LABS: BASO % 0.4 % (0.0-1.0); HEMOGLOBIN 8.1 g/dl (12.0-15.5); LYMPH # 0.6 10^3/uL (1.5-5.0); LYMPH % 24.2 % (24.0-44.0); MEAN CORPUSCULAR HEMOGLOBIN 31.4 pg (27.0-33.0); MEAN CORPUSCULAR HGB CONC 32.4 g/dl (32.0-36.5); MEAN CORPUSCULAR VOLUME 96.9 fl (80.0-96.0); MONO # 0.3 10^3/uL (0.0-0.8); MONO % 11.4 % (0.0-5.0); NEUTROPHILS # 1.6 10^3/uL (1.5-8.5); NEUTROPHILS % 62.1 % (36.0-66.0); RED BLOOD COUNT 2.58 10^6/uL (4.00-5.40); WHITE BLOOD COUNT 2.6 10^3/uL (4.0-10.0)
[2020-01-30 09:08] LABS: PLATELET COUNT, AUTOMATED 11 10^3/uL (150-450)
[2020-02-02 07:58] VITALS: BP 109/58
--- NOTE | 2020-02-02 08:17 | MEDONCPDOC ---
Medical Oncology Office Note Date of Service: Feb 02, 2020 Diagnosis/Treatment History Diagnosis; CMML with pancytopenia. Anemia, transfusion dependent. Thrombocytopenia requiring transfusions. Hematology history: CMML- diagnosed via BM bx 03/2019: - 03/20/19 - Leukoerythroblastic anemia- Hgb 7-range, thrombocytopenia 40s range, WBC in the 20s range with left shift and nucleated RBCs, scattered circulating blasts. Peripheral blood flow cytometry - no acute leukemia, no NHL. - 04/03/19 - BM Bx MDS/MPD at [facility]- Mild increased bone marrow blasts (5% by CD34 IHC), favor CMML - 1. FISH - negative t(9;22) BCR/ABL-1 gene rearrangement - no evidence of CML. Karyotype - mononucleosis 75 and 7, FISH: +deletion 17p supporting above diagnosis, at [facility]. -Decitabine chemotherapy started 05/09/2019 -Switched to inqovi (decitabine/cedazuridine) oral medication 12/2019. Interval History 65-year-old with CMML/MDS currently on Inqovi (decitabine/cedazuridine). Started 2nd cycle January 22. Easy bruising noted. No other bleeding issues. No recent infections. No recurrent infections. No fever. Allergies Coded Allergies: losartan (Verified Allergy, Severe, throat swelling, 06/28/18) Home Medications Active Scripts Acyclovir (Acyclovir) 400 Mg Tablet, 1 TAB PO BID for 30 Days, #60 TAB 1 Refill Prov:RAFAELA SONI MD 01/02/20 Levofloxacin (Levofloxacin) 500 Mg Tablet, 1 TAB PO DAILY, #30 TAB Prov:RAFAELA SONI MD 01/02/20 Decitabine/Cedazuridine (Inqovi 35 mg-100 mg Tablet) 35 Mg-100 Mg Tablet, 1 TAB PO DAILY for 5 Days, #5 TAB 3 Refills 1 tablet by mouth once daily on days 1 to 5 of each 28-day treatment cycle Prov:RAFAELA SONI MD 12/06/19 Prochlorperazine Maleate (Prochlorperazine Maleate) 10 Mg Tablet, 10 MG PO Q6H for 7 Days, #30 TAB Prov:AAYUSH PERERA MD 08/12/19 Reported Medications Cholecalciferol (Vitamin D3) (Vitamin D3) 1,000 Unit Tablet, 1000 UNITS PO DAILY, TAB 6/17/20 Folic Acid (Folic Acid) 1 Mg Tablet, 1 MG PO DAILY DINNER 06/24/19 Amlodipine Besylate (Amlodipine Besylate) 5 Mg Tablet, 5 MG PO DAILY DINNER 06/24/19 Sodium Chloride (Nasal [place]) 44 Ml [place], 2 SPRAYS NA Q2H PRN for NASAL CONGESTION 06/24/19 Umeclidinium [place] (Incruse Ellipta) 62.5 Mcg Blst.w.dev, 1 PUFF INH DAILY 06/28/18 Insulin Glargine,Hum.rec.anlog (Basaglar Kwikpen U-100) 100 Unit/1 Ml Insuln.pen, 30 UNIT SC QHS 06/28/18 Insulin Human Lispro (Humalog) 100 Unit/1 Ml Vial, 1 DOSE SC TID SLIDING SCALE 06/28/18 Isosorbide Mononitrate (Isosorbide Mononitrate ER) 60 Mg Tab, 60 MG PO DAILY DINNER 09/03/16 Calcium Polycarbophil (Fibercon) 625 Mg Tab, 625 MG PO DAILY DINNER 04/15/16 Carvedilol (Carvedilol) 12.5 Mg Tab, 12.5 MG PO BID, TAB 04/15/16 Pravastatin Sodium (Pravastatin Sodium) 40 Mg Tab, 40 MG PO DAILY DINNER 04/15/16 Furosemide (Lasix) 40 Mg Tab, 40 MG PO BID AM AND MID AFTERNOON 06/28/13 Past Medical History Past Medical History: CMML Ischemic cardiomyopathy. CAD S/P stent. CKD stage IV. Atrophic left kidney. Prior history of polycythemia. Was apparently referred to pulmonology for HECTOR evaluation but states she was not ready to make that appointment. Asthma. Obesity. Type 2 diabetes. CHF. Hypercholesterolemia. anemia of chronic kidney disease folate deficiency, CMV IgG positive asthma, hypercholesteremia. Past Surgical History: Pacemaker with defibrillator placement December 2017. Family History: Mother - had history throat, thyroid and uterine cancers. Sister had diabetes and Lupus. Three brothers have CAD. No other history of malignancies or dyscrasias per patient. Social History: Smoking - 10 cigarettes a day since the age of 14. Quit in 2013, but commenced smoking again February 2019 about 10 cigarettes a day. Alcohol - Denies history of alcohol or recreational drug use. Review of Systems General: Reports: Normal Appetite; Denies: Chills, Night Sweats, Fatigue, Malaise Constitutional: Reports: Normal appetite; Denies: Fever, Malaise, Weakness, Fatigue, Weight Loss, Lethargy, Other symptoms Eyes: Denies: Pain, Vision change, Conjunctivae inflammation, Eyelid inflammation, Redness, Other HEENT: Denies: Head Aches, Ear Pain, Dysphagia, Sinus Congestion, Post Nasal Drip, Sore Throat, Epistaxis, Other Symptoms Skin: Reports: Bruising; Denies: Rash, Lesions, Jaundice, Other Pulmonary: Denies: Dyspnea, Cough, Pleuritic Chest Pain, Other Symptoms Cardiovascular: Denies: Chest Pain, Palpitations, Orthopnea, Paroxysmal Noc. Dyspnea, Edema, Lt Headedness, Other Symptoms Gastrointestinal: Reports: Diarrhea (occasional loose stools); Denies: Nausea, Vomiting, Abdominal Pain, Constipation, Melena, Hematochezia, Other Symptoms Genitourinary: Denies: Dysuria, Frequency, Incontinence, Hematuria, Retention, Other Symptoms Hematologic: Reports: Bruising; Denies: Bleeding Excessively, Petecchia, Purpura, Enlarged Lymph Nodes, Other Hematologic Endocrine: Denies: Polydipsia, Polyphagia, Polyuria, Heat Intolerance, Cold Intolerance, Other Endocrine Sx Musculoskeletal: Denies: Neck pain, Shoulder pain, Arm pain, Back pain, Hand pain, Leg pain, Foot pain, Joint pain, Muscle pain, Spasms, Gout, Joint sweling, Muscle stiffness, Midthoracic pain, Other Neurological: Reports: Weakness; Denies: Numbness, Incoordination, Change in Speech, Confusion, Seizures, Other Symptoms Psych: Reports: Mood Normal; Denies: Anxiety, Depression Physical Examination General Exam: Positive: Alert, Cooperative, No Acute Distress, Oriented Times Three; Negative: Other Eye Exam: Positive: PERRLA, Conjunctiva & lids normal, EOMI; Negative: Sclera icteric ENT EXAM: Positive: Atraumatic, Mucous membr. moist/pink, Pharynx Normal, T ongue Midline, Nares Patent; Negative: Pharyngeal Edema Neck Exam: Positive: Supple; Negative: JVD, Thyromegaly, Lymphadenopathy Chest Exam: Positive: Clear to auscultation, Normal air movement; Negative: Rales, Rhonchi, Wheezing, Diminished, Other Heart Exam: Positive: Rate Normal, Regular Rhythm, Normal S1, Normal S2; Negative: Irregular Rhythm, Gallops, Murmurs, Rubs, Other Breast Exam: Positive: Symmetric Bilaterally Abdomen Exam: Positive: Normal bowel sounds; Negative: Soft, Tenderness, Hepatospenomegaly, Mass, Hernia, Other Extremity Exam: Positive: Normal pulses; Negative: Clubbing, Cyanosis, Edema, Tenderness, Swelling, Other Skin Exam: Positive: Nl turgor and temperature, Other skin issue (ecchymosis on upper extremities); Negative: Rash, Breakdown, Lesion Neuro Exam: Positive: Normal Speech; Negative: Normal Gait (. Came in a wheelchair) Psych Exam: Positive: Mental status NL, Mood NL, Oriented x 3; Negative: Anxiety Ht / Wt Ht / Wt Height:5 Feet 5 Inches Weight: 79.600 Kg Vital Signs Vital Signs Date Time Temp Pulse Resp B/P (MAP) Pulse Ox O2 Delivery O2 Flow Rate FiO2 02/02/20 07:58 97.5 61 18 109/58 (75) 99 Room Air Laboratory Data Laboratory Tests 01/30/20 08:32 Assessment/Plan Assessment CMML with 5% myeloblasts seen on bone marrow biopsy. Pancytopenia secondary to CMML/MDS. Overall poor prognosis Patient is currently transfusion dependent. Previously on decitabine chemotherapy since 04/2019, now on inqovi (decitabine/cedazuridine) as of 01/06/2020. Plan Pancytopenia initially improved after the third cycle of chemotherapy but has now again worsened. Continue with epoetin alpha 40,000 units weekly dose for CKD stage 4 and MDS. CBC to be checked biweekly with blood transfusion and platelet transfusion as needed. Also on epoetin alpha injections for moderate anemia. Filgrastim injections weekly for significant neutropenia/leukopenia. To continue on prophylactic Antiviral medication and antibacterial medication as she has had significant neutropenia. Previously on decitabine chemotherapy, now on inqovi (decitabine/cedazuridine). Third cycle of inqovi (decitabine/cedazuridine) to be started 02/20/2020. We rediscussed a referral to an MDS specialist, such as in [place] or [place] for consideration of bone marrow transplant, but Ms. Cotton declined a referral. She is being considered for cataract surgery. She would need platelet transfusion prior to cataract surgery, although this is usually a bloodless procedure. CC TO: CC TO: Primary Care Provider: Ana Paul MD, FLORENCE P. MD Feb 02, 2020 08:07
[2020-02-02 08:37] LABS: BASO % 0.5 % (0.0-1.0); HEMATOCRIT 22.8 % (36.0-47.0); HEMOGLOBIN 7.4 g/dl (12.0-15.5); LYMPH # 0.7 10^3/uL (1.5-5.0); LYMPH % 32.9 % (24.0-44.0); MEAN CORPUSCULAR HEMOGLOBIN 31.4 pg (27.0-33.0); MEAN CORPUSCULAR HGB CONC 32.5 g/dl (32.0-36.5); MEAN CORPUSCULAR VOLUME 96.6 fl (80.0-96.0); MONO # 0.2 10^3/uL (0.0-0.8); MONO % 9.3 % (0.0-5.0); NEUTROPHILS # 1.1 10^3/uL (1.5-8.5); NEUTROPHILS % 52.2 % (36.0-66.0); RED BLOOD COUNT 2.36 10^6/uL (4.00-5.40); WHITE BLOOD COUNT 2.2 10^3/uL (4.0-10.0)
[2020-02-02 08:39] LABS: PLATELET COUNT, AUTOMATED 8 10^3/uL (150-450)
[2020-02-02 08:47] LABS: ALBUMIN 2.7 GM/DL (3.2-5.2); BILIRUBIN,TOTAL 0.5 MG/DL (0.2-1.0); CALCIUM LEVEL 8.5 MG/DL (8.8-10.2); CREATININE FOR GFR 1.95 MG/DL (0.55-1.30); GLOMERULAR FILTRATION RATE 27.4 (>45); POTASSIUM SERUM 4.4 MEQ/L (3.5-5.1); TOTAL PROTEIN 6.4 GM/DL (6.4-8.2)
[2020-02-02 09:34] LABS: PERCENT SATURATION 72.1 % (13.2-45.0)
[2020-02-02 10:37] VITALS: BP 109/58
[2020-02-02 12:08] VITALS: BP 119/58
[2020-02-02 12:28] VITALS: BP 121/54
[2020-02-02 13:13] VITALS: BP 125/56
[2020-02-02 14:30] VITALS: BP 138/60
[2020-02-03 10:05] VITALS: BP 117/55
[2020-02-03 10:26] VITALS: BP 108/60
[2020-02-03 12:10] VITALS: BP 124/57
[2020-02-03 14:05] VITALS: BP 135/60
[2020-02-06 08:52] LABS: HEMATOCRIT 28.9 % (36.0-47.0); HEMOGLOBIN 9.3 g/dl (12.0-15.5); LYMPH # 0.7 10^3/uL (1.5-5.0); MEAN CORPUSCULAR HEMOGLOBIN 30.5 pg (27.0-33.0); MEAN CORPUSCULAR HGB CONC 32.2 g/dl (32.0-36.5); MEAN CORPUSCULAR VOLUME 94.8 fl (80.0-96.0); MONO # 0.2 10^3/uL (0.0-0.8); RED BLOOD COUNT 3.05 10^6/uL (4.00-5.40)
[2020-02-06 08:54] LABS: NEUTROPHILS # 0.1 10^3/uL (1.5-8.5); PLATELET COUNT, AUTOMATED 12 10^3/uL (150-450)
[2020-02-06 10:12] VITALS: BP 133/72
[2020-02-06 12:01] VITALS: BP 113/58
[2020-02-06 13:17] VITALS: BP 110/58
[2020-02-09 08:09] LABS: BASO % 0.8 % (0.0-1.0); HEMATOCRIT 25.7 % (36.0-47.0); HEMOGLOBIN 8.2 g/dl (12.0-15.5); LYMPH # 0.9 10^3/uL (1.5-5.0); LYMPH % 66.4 % (24.0-44.0); MEAN CORPUSCULAR HEMOGLOBIN 30.5 pg (27.0-33.0); MEAN CORPUSCULAR HGB CONC 31.9 g/dl (32.0-36.5); MEAN CORPUSCULAR VOLUME 95.5 fl (80.0-96.0); MONO # 0.3 10^3/uL (0.0-0.8); MONO % 19.5 % (0.0-5.0); NEUTROPHILS % 9.4 % (36.0-66.0); RED BLOOD COUNT 2.69 10^6/uL (4.00-5.40); WHITE BLOOD COUNT 1.3 10^3/uL (4.0-10.0)
[2020-02-09 08:12] LABS: NEUTROPHILS # 0.1 10^3/uL (1.5-8.5); PLATELET COUNT, AUTOMATED 17 10^3/uL (150-450)
[2020-02-13] VITALS (7 sets, daily range): BP systolic 102–127; BP diastolic 43–64
[2020-02-13] MEDS: SODIUM CHLORIDE 0.9% INJ 10 ML SYR IV PRN ×2 (08:19→15:11)
[2020-02-13 08:39] LABS: BASO % 0.6 % (0.0-1.0); LYMPH # 0.8 10^3/uL (1.5-5.0); LYMPH % 52.9 % (24.0-44.0); MEAN CORPUSCULAR HEMOGLOBIN 30.3 pg (27.0-33.0); MEAN CORPUSCULAR HGB CONC 32.1 g/dl (32.0-36.5); MEAN CORPUSCULAR VOLUME 94.4 fl (80.0-96.0); MONO # 0.4 10^3/uL (0.0-0.8); RED BLOOD COUNT 1.98 10^6/uL (4.00-5.40); WHITE BLOOD COUNT 1.6 10^3/uL (4.0-10.0)
[2020-02-13 08:43] LABS: HEMATOCRIT 18.7 % (36.0-47.0); NEUTROPHILS # 0.3 10^3/uL (1.5-8.5); PLATELET COUNT, AUTOMATED 3 10^3/uL (150-450)
[2020-02-16 08:31] LABS: BASO % 0.7 % (0.0-1.0); LYMPH # 0.8 10^3/uL (1.5-5.0); LYMPH % 49.3 % (24.0-44.0); MEAN CORPUSCULAR HGB CONC 32.3 g/dl (32.0-36.5); MEAN CORPUSCULAR VOLUME 95.9 fl (80.0-96.0); MONO # 0.4 10^3/uL (0.0-0.8); NEUTROPHILS % 14.4 % (36.0-66.0); RED BLOOD COUNT 1.71 10^6/uL (4.00-5.40); WHITE BLOOD COUNT 1.5 10^3/uL (4.0-10.0)
[2020-02-16 08:39] LABS: HEMATOCRIT 16.4 % (36.0-47.0); NEUTROPHILS # 0.2 10^3/uL (1.5-8.5); PLATELET COUNT, AUTOMATED 7 10^3/uL (150-450)
[2020-02-16 08:40] LABS: HEMOGLOBIN 5.3 g/dl (12.0-15.5)
[2020-02-20 08:15] LABS: BASO % 1.2 % (0.0-1.0); HEMOGLOBIN 6.4 g/dl (12.0-15.5); LYMPH # 0.8 10^3/uL (1.5-5.0); MEAN CORPUSCULAR HEMOGLOBIN 29.9 pg (27.0-33.0); MEAN CORPUSCULAR VOLUME 93.5 fl (80.0-96.0); MONO # 0.4 10^3/uL (0.0-0.8); NEUTROPHILS % 19.2 % (36.0-66.0); RED BLOOD COUNT 2.14 10^6/uL (4.00-5.40); WHITE BLOOD COUNT 1.7 10^3/uL (4.0-10.0)
[2020-02-20 08:16] LABS: NEUTROPHILS # 0.3 10^3/uL (1.5-8.5); PLATELET COUNT, AUTOMATED 7 10^3/uL (150-450)
[2020-02-23 08:26] LABS: HEMATOCRIT 21.6 % (36.0-47.0); LYMPH # 0.7 10^3/uL (1.5-5.0); LYMPH % 33.2 % (24.0-44.0); MEAN CORPUSCULAR HEMOGLOBIN 29.4 pg (27.0-33.0); MEAN CORPUSCULAR HGB CONC 31.9 g/dl (32.0-36.5); MEAN CORPUSCULAR VOLUME 91.9 fl (80.0-96.0); MONO # 0.6 10^3/uL (0.0-0.8); MONO % 30.1 % (0.0-5.0); NEUTROPHILS % 30.1 % (36.0-66.0); RED BLOOD COUNT 2.35 10^6/uL (4.00-5.40)
[2020-02-23 08:28] LABS: HEMOGLOBIN 6.9 g/dl (12.0-15.5); NEUTROPHILS # 0.6 10^3/uL (1.5-8.5); PLATELET COUNT, AUTOMATED 7 10^3/uL (150-450)
[2020-02-27] VITALS (10 sets, daily range): BP systolic 100–129; BP diastolic 52–61
[2020-02-27 08:04] LABS: BASO % 0.9 % (0.0-1.0); HEMATOCRIT 23.9 % (36.0-47.0); HEMOGLOBIN 7.7 g/dl (12.0-15.5); LYMPH # 0.5 10^3/uL (1.5-5.0); LYMPH % 45.4 % (24.0-44.0); MEAN CORPUSCULAR HEMOGLOBIN 28.8 pg (27.0-33.0); MEAN CORPUSCULAR HGB CONC 32.2 g/dl (32.0-36.5); MEAN CORPUSCULAR VOLUME 89.5 fl (80.0-96.0); MONO # 0.3 10^3/uL (0.0-0.8); MONO % 26.9 % (0.0-5.0); NEUTROPHILS % 23.1 % (36.0-66.0); RED BLOOD COUNT 2.67 10^6/uL (4.00-5.40); WHITE BLOOD COUNT 1.1 10^3/uL (4.0-10.0)
[2020-02-27 08:10] LABS: NEUTROPHILS # 0.3 10^3/uL (1.5-8.5); PLATELET COUNT, AUTOMATED 9 10^3/uL (150-450)
[2020-03-01 08:51] LABS: BASO % 1.1 % (0.0-1.0); HEMATOCRIT 28.1 % (36.0-47.0); HEMOGLOBIN 9.1 g/dl (12.0-15.5); LYMPH # 0.5 10^3/uL (1.5-5.0); MEAN CORPUSCULAR HEMOGLOBIN 28.9 pg (27.0-33.0); MEAN CORPUSCULAR HGB CONC 32.4 g/dl (32.0-36.5); MEAN CORPUSCULAR VOLUME 89.2 fl (80.0-96.0); MONO # 0.2 10^3/uL (0.0-0.8); MONO % 16.7 % (0.0-5.0); NEUTROPHILS % 18.9 % (36.0-66.0); RED BLOOD COUNT 3.15 10^6/uL (4.00-5.40)
[2020-03-01 08:57] LABS: NEUTROPHILS # 0.2 10^3/uL (1.5-8.5); PLATELET COUNT, AUTOMATED 9 10^3/uL (150-450)
[2020-03-01 08:59] LABS: WHITE BLOOD COUNT 0.9 10^3/uL (4.0-10.0)
[2020-03-05 08:09] LABS: HEMATOCRIT 21.5 % (36.0-47.0); LYMPH # 0.9 10^3/uL (1.5-5.0); LYMPH % 80.6 % (24.0-44.0); MEAN CORPUSCULAR HEMOGLOBIN 28.8 pg (27.0-33.0); MEAN CORPUSCULAR HGB CONC 32.6 g/dl (32.0-36.5); MEAN CORPUSCULAR VOLUME 88.5 fl (80.0-96.0); MONO # 0.1 10^3/uL (0.0-0.8); MONO % 11.1 % (0.0-5.0); NEUTROPHILS % 8.3 % (36.0-66.0); RED BLOOD COUNT 2.43 10^6/uL (4.00-5.40); WHITE BLOOD COUNT 1.1 10^3/uL (4.0-10.0)
[2020-03-05 08:12] LABS: NEUTROPHILS # 0.1 10^3/uL (1.5-8.5); PLATELET COUNT, AUTOMATED 4 10^3/uL (150-450)
[2020-03-05 10:14] VITALS: BP 109/63
[2020-03-05 10:39] VITALS: BP 120/63
[2020-03-05 11:24] VITALS: BP 132/60
[2020-03-05 13:45] VITALS: BP 135/69
[2020-03-20 08:17] VITALS: BP 115/54
[2020-03-20] MEDS: SODIUM CHLORIDE 0.9% INJ 10 ML SYR IV PRN (08:51)
--- NOTE | 2020-03-20 08:55 | MEDONCPDOC ---
Medical Oncology Office Note Date of Service: Mar 20, 2020 Diagnosis/Treatment History Diagnosis; CMML with pancytopenia. Anemia, transfusion dependent. Thrombocytopenia requiring transfusions. Hematology history: CMML- diagnosed via BM bx 03/2019: - 03/20/19 - Leukoerythroblastic anemia- Hgb 7-range, thrombocytopenia 40s ra nge, WBC in the 20s range with left shift and nucleated RBCs, scattered circulating blasts. Peripheral blood flow cytometry - no acute leukemia, no NHL. - 04/03/19 - BM Bx MDS/MPD at [facility]- Mild increased bone marrow blasts (5% by CD34 IHC), favor CMML - 1. FISH - negative t(9;22) BCR/ABL-1 gene rearrangement - no evidence of CML. Karyotype - mononucleosis 75 and 7, FISH: +deletion 17p supporting above diagnosis, at [facility]. -Decitabine chemotherapy started 05/09/2019 -Switched to inqovi (decitabine/cedazuridine) oral medication 12/2019. Interval History 65-year-old with CMML/MDS, currently on Inqovi (decitabine/cedazuridine). Transfusion dependent. Sent to [place] last week because CBC showed blasts. Discharged 2 days ago Thursday on antifungal, antiviral and anitbacterial prophylaxis. She has also been put on promacta. Will obtain records from [facility]. Allergies Coded Allergies: losartan (Verified Allergy, Severe, throat swelling, 06/28/18) Home Medications Active Scripts Pravastatin Sodium (Pravachol) 20 Mg Tablet, 40 MG PO DAILY for 30 Days, #30 TAB Prov:CRIS FIGUEROA M.D.,PGY-2 02/16/20 Decitabine/Cedazuridine (Inqovi 35 mg-100 mg Tablet) 35 Mg-100 Mg Tablet, 1 TAB PO DAILY for 5 Days, #5 TAB 3 Refills 1 tablet by mouth once daily on days 1 to 5 of each 28-day treatment cycle Prov:RAFAELA SONI MD 12/06/19 Prochlorperazine Maleate (Prochlorperazine Maleate) 10 Mg Tablet, 10 MG PO Q6H for 7 Days, #30 TAB Prov:AAYUSH PERERA MD 08/12/19 Reported Medications Sennosides/Docusate Sodium (Senna-S Tablet) 1 Each Tablet, 1 TAB PO DAILY, TAB 2/2/21 Acyclovir (Acyclovir) 200 Mg Capsule, 1 CAP PO DAILY for 10 Days, #10 CAP 03/20/20 Eltrombopag Olamine (Promacta) 25 Mg Tablet, 25 MG PO DAILY, TAB 03/20/20 Levofloxacin (Levofloxacin) 500 Mg Tablet, 1 TAB PO DAILY for 10 Days, #10 TAB 03/20/20 Pantoprazole Sodium (Pantoprazole Sodium) 40 Mg Tablet.dr, 1 TAB PO DAILY for 30 Days, #30 TAB 03/20/20 Fluconazole (Fluconazole) 200 Mg Tablet, 1 TAB PO DAILY for yeast infection for 10 Days, #10 TAB 03/20/20 Acetaminophen (Acetaminophen) 500 Mg Tablet, 1000 MG PO Q6H PRN for PAIN, TAB 02/16/20 Cholecalciferol (Vitamin D3) (Vitamin D3) 1,000 Unit Tablet, 1000 UNITS PO DAILY, TAB 08/03/19 Amlodipine Besylate (Amlodipine Besylate) 5 Mg Tablet, 5 MG PO DAILY 06/24/19 Umeclidinium [place] (Incruse Ellipta) 62.5 Mcg Blst.w.dev, 1 PUFF INH DAILY 06/28/18 Insulin Glargine,Hum.rec.anlog (Basaglar Kwikpen U-100) 100 Unit/1 Ml Insuln.pen, 30 UNIT SC QHS 06/28/18 Insulin Human Lispro (Humalog) 100 Unit/1 Ml Vial, 1 DOSE SC TID SLIDING SCALE 06/28/18 Isosorbide Mononitrate (Isosorbide Mononitrate ER) 60 Mg Tab, 60 MG PO DAILY DINNER 09/03/16 Carvedilol (Carvedilol) 12.5 Mg Tab, 12.5 MG PO BID, TAB 04/15/16 Discontinued Reported Medications Calcium Polycarbophil (Fibercon) 625 Mg Tablet, 625 MG PO QHS, TAB 02/16/20 Acyclovir (Acyclovir) 400 Mg Tablet, 400 MG PO BID, TAB 02/16/20 Folic Acid (Folic Acid) 1 Mg Tablet, 1 MG PO DAILY DINNER 06/24/19 Furosemide (Lasix) 40 Mg Tab, 40 MG PO BID AM AND MID AFTERNOON 06/28/13 Past Medical History Past Medical History: CMML Ischemic cardiomyopathy. CAD S/P stent. CKD stage IV. Atrophic left kidney. Prior history of polycythemia. Was apparently referred to pulmonology for HECTOR evaluation but states she was not ready to make that appointment. Asthma. Obesity. Type 2 diabetes. CHF. Hypercholesterolemia. anemia of chronic kidney disease folate deficiency, CMV IgG positive asthma, hypercholesteremia. Past Surgical History: Pacemaker with defibrillator placement December 2017. Family History: Mother - had history throat, thyroid and uterine cancers. Sister had diabetes and Lupus. Three brothers have CAD. No other history of malignancies or dyscrasias per patient. Social History: Smoking - 10 cigarettes a day since the age of 14. Quit in 2013, but commenced smoking again February 2019 about 10 cigarettes a day. Alcohol - Denies history of alcohol or recreational drug use. Review of Systems General: Reports: Normal Appetite; Denies: Chills, Night Sweats, Fatigue, Malaise Constitutional: Reports: Normal appetite; Denies: Chills, Fever, Malaise, Weakness, Fatigue, Weight Loss, Lethargy, Other symptoms Eyes: Denies: Pain, Vision change, Conjunctivae inflammation, Eyelid inflammation, Redness, Other HEENT: Denies: Head Aches, Ear Pain, Dysphagia, Sinus Congestion, Post Nasal Drip, Sore Throat, Epistaxis, Other Symptoms Skin: Reports: Bruising; Denies: Rash, Lesions, Jaundice, Other Pulmonary: Denies: Dyspnea, Cough, Pleuritic Chest Pain, Other Symptoms Cardiovascular: Reports: Edema; Denies: Chest Pain, Palpitations, Orthopnea, Paroxysmal Noc. Dyspnea, Lt Headedness, Other Symptoms Gastrointestinal: Denies: Nausea, Vomiting, Abdominal Pain, Diarrhea, Constipation, Melena, Hematochezia, Other Symptoms Genitourinary: Denies: Dysuria, Frequency, Incontinence, Hematuria, Retention, Other Symptoms Hematologic: Reports: Bruising; Denies: Bleeding Excessively, Petecchia, Purpura, Enlarged Lymph Nodes, Other Hematologic Endocrine: Denies: Polydipsia, Polyphagia, Polyuria, Heat Intolerance, Cold Intolerance, Other Endocrine Sx Musculoskeletal: Denies: Neck pain, Shoulder pain, Arm pain, Back pain, Hand pain, Leg pain, Foot pain, Joint pain, Muscle pain, Spasms, Gout, Joint sweling, Muscle stiffness, Midthoracic pain, Other Neurological: Reports: Weakness; Denies: Numbness, Incoordination, Change in Speech, Confusion, Seizures, Other Symptoms Psych: Reports: Mood Normal; Denies: Anxiety, Depression Physical Examination General Exam: Positive: Alert, Cooperative, No Acute Distress, Oriented Times Three; Negative: Other Eye Exam: Positive: Conjunctiva & lids normal, EOMI; Negative: Sclera icteric ENT EXAM: Positive: Atraumatic, Mucous membr. moist/pink, Pharynx Normal, Tongue Midline, Nares Patent; Negative: Pharyngeal Edema Neck Exam: Positive: Supple; Negative: JVD, Thyromegaly, Lymphadenopathy Chest Exam: Positive: Clear to auscultation, Normal air movement; Negative: Rales, Rhonchi, Wheezing, Diminished, Other Heart Exam: Positive: Rate Normal, Regular Rhythm, Normal S1, Normal S2; Negative: Irregular Rhythm, Gallops, Murmurs, Rubs, Other Breast Exam: Positive: Symmetric Bilaterally Abdomen Exam: Positive: Normal bowel sounds; Negative: Soft, Tenderness, Hepatospenomegaly, Mass, Hernia, Other Extremity Exam: Positive: Edema, Normal pulses; Negative: Clubbing, Cyanosis, Tenderness, Swelling, Other Skin Exam: Positive: Nl turgor and temperature, Other skin issue (ecchymosis on upper extremities); Negative: Rash, Breakdown, Lesion Neuro Exam: Positive: Normal Speech; Negative: Normal Gait (. Came in a wheelchair) Psych Exam: Positive: Mental status NL, Mood NL, Oriented x 3; Negative: Anxiety Ht / Wt Ht / Wt Height:5 Feet 5 Inches Weight: 90.000 Kg Vital Signs Vital Signs Date Time Temp Pulse Resp B/P (MAP) Pulse Ox O2 Delivery O2 Flow Rate FiO2 03/20/20 08:17 99.8 70 18 115/54 (74) 97 Room Air Assessment/Plan Assessment CMML with 5% myeloblasts seen on bone marrow biopsy. Pancytopenia secondary to CMML/MDS. Overall poor prognosis Patient is currently transfusion dependent. Previously on decitabine chemotherapy since 04/2019, now on inqovi (decitabine/cedazuridine) as of 01/06/2020. Plan Pancytopenia initially improved after the third cycle of chemotherapy but has now again worsened. Continue with epoetin alpha 60,000 units weekly dose for CKD stage 4 and MDS. CBC to be checked biweekly with blood transfusion and platelet transfusion as needed. Has been on Filgrastim injections weekly for significant neutropenia/leukopenia, however, will hold off on this until we obtain records from [facility]. To continue on prophylactic antifungal, Antiviral and antibacterial medications as she has had significant neutropenia. The patient has been started on Promacta at [facility]. Unclear to me what the in dication was for Promacta but will obtain records from [facility]. Previously on decitabine chemotherapy, now on inqovi (decitabine/cedazuridine). Third cycle of inqovi (decitabine/cedazuridine) started 02/20/2020. Will obtain records from [facility]. In the meantime, will continue transfusion support with CBC check 2x a week. I discussed a referral to [place] [facility] or [facility] for additional treatment options. I also discussed purely supportive care and or hospice (without active treatment for CMML) as she has had signs and symptoms of disease progression on decitabine. She wanted more time to think about the above options, but in the meantime, she will continue transfusion support as needed twice a week. Scheduled for cataract surgery on Mar. May need platelet transfusion around that time. CC TO: CC TO: Primary Care Provider: Ana Paul MD, FLORENCE P. MD Mar 20, 2020 08:42
[2020-03-20 09:07] LABS: BASO % 1.5 % (0.0-1.0); HEMATOCRIT 24.5 % (36.0-47.0); HEMOGLOBIN 8.3 g/dl (12.0-15.5); LYMPH # 0.4 10^3/uL (1.5-5.0); LYMPH % 62.1 % (24.0-44.0); MEAN CORPUSCULAR HGB CONC 33.9 g/dl (32.0-36.5); MEAN CORPUSCULAR VOLUME 85.7 fl (80.0-96.0); MONO # 0.2 10^3/uL (0.0-0.8); MONO % 27.3 % (0.0-5.0); NEUTROPHILS % 4.6 % (36.0-66.0); RED BLOOD COUNT 2.86 10^6/uL (4.00-5.40)
[2020-03-20 09:13] LABS: PLATELET COUNT, AUTOMATED 10 10^3/uL (150-450); WHITE BLOOD COUNT 0.7 10^3/uL (4.0-10.0)
[2020-03-20 09:22] LABS: BILIRUBIN,TOTAL 0.7 MG/DL (0.2-1.0); CALCIUM LEVEL 8.9 MG/DL (8.8-10.2); CREATININE FOR GFR 1.32 MG/DL (0.55-1.30); POTASSIUM SERUM 3.2 MEQ/L (3.5-5.1); TOTAL PROTEIN 5.6 GM/DL (6.4-8.2)
[2020-03-21 11:45] VITALS: BP 102/58
[2020-03-21 13:03] VITALS: BP 113/48
[2020-03-21] MEDS: SODIUM CHLORIDE 0.9% INJ 10 ML SYR IV PRN (14:26)
[2020-03-21 14:40] VITALS: BP 122/70
[2020-03-26 09:35] LABS: BASO % 1.4 % (0.0-1.0); HEMATOCRIT 26.5 % (36.0-47.0); HEMOGLOBIN 8.9 g/dl (12.0-15.5); LYMPH # 0.4 10^3/uL (1.5-5.0); MEAN CORPUSCULAR HEMOGLOBIN 29.3 pg (27.0-33.0); MEAN CORPUSCULAR HGB CONC 33.6 g/dl (32.0-36.5); MEAN CORPUSCULAR VOLUME 87.2 fl (80.0-96.0); MONO # 0.2 10^3/uL (0.0-0.8); MONO % 32.9 % (0.0-5.0); RED BLOOD COUNT 3.04 10^6/uL (4.00-5.40); WHITE BLOOD COUNT 0.7 10^3/uL (4.0-10.0)
[2020-03-26 09:36] LABS: NEUTROPHILS # 0.1 10^3/uL (1.5-8.5); PLATELET COUNT, AUTOMATED 20 10^3/uL (150-450)
[2020-03-29] VITALS (8 sets, daily range): BP systolic 110–127; BP diastolic 50–59
[2020-03-29 08:28] LABS: BASO % 1.5 % (0.0-1.0); HEMATOCRIT 23.4 % (36.0-47.0); HEMOGLOBIN 7.7 g/dl (12.0-15.5); LYMPH # 0.3 10^3/uL (1.5-5.0); LYMPH % 50.7 % (24.0-44.0); MEAN CORPUSCULAR HEMOGLOBIN 28.8 pg (27.0-33.0); MEAN CORPUSCULAR HGB CONC 32.9 g/dl (32.0-36.5); MEAN CORPUSCULAR VOLUME 87.6 fl (80.0-96.0); MONO # 0.2 10^3/uL (0.0-0.8); MONO % 34.3 % (0.0-5.0); RED BLOOD COUNT 2.67 10^6/uL (4.00-5.40)
[2020-03-29 08:34] LABS: WHITE BLOOD COUNT 0.7 10^3/uL (4.0-10.0)
[2020-03-29 08:35] LABS: NEUTROPHILS # 0.1 10^3/uL (1.5-8.5); PLATELET COUNT, AUTOMATED 4 10^3/uL (150-450)
[2020-04-02 09:13] LABS: HEMATOCRIT 28.1 % (36.0-47.0); HEMOGLOBIN 9.2 g/dl (12.0-15.5); LYMPH # 0.4 10^3/uL (1.5-5.0); MEAN CORPUSCULAR HEMOGLOBIN 28.1 pg (27.0-33.0); MEAN CORPUSCULAR HGB CONC 32.7 g/dl (32.0-36.5); MEAN CORPUSCULAR VOLUME 85.9 fl (80.0-96.0); MONO # 0.4 10^3/uL (0.0-0.8); RED BLOOD COUNT 3.27 10^6/uL (4.00-5.40)
[2020-04-02 09:29] LABS: NEUTROPHILS # 0.2 10^3/uL (1.5-8.5); PLATELET COUNT, AUTOMATED 8 10^3/uL (150-450)
[2020-04-02 11:22] VITALS: BP 101/46
[2020-04-02 13:05] VITALS: BP 105/54
[2020-04-02 14:41] VITALS: BP 110/52
[2020-04-04 09:35] LABS: BASO % 0.8 % (0.0-1.0); HEMOGLOBIN 7.8 g/dl (12.0-15.5); LYMPH # 0.4 10^3/uL (1.5-5.0); LYMPH % 36.7 % (24.0-44.0); MEAN CORPUSCULAR HEMOGLOBIN 27.3 pg (27.0-33.0); MEAN CORPUSCULAR HGB CONC 31.2 g/dl (32.0-36.5); MEAN CORPUSCULAR VOLUME 87.4 fl (80.0-96.0); MONO # 0.5 10^3/uL (0.0-0.8); MONO % 39.2 % (2.0-8.0); NEUTROPHILS % 16.6 % (36.0-66.0); RED BLOOD COUNT 2.86 10^6/uL (4.00-5.40); WHITE BLOOD COUNT 1.2 10^3/uL (4.0-10.0)
[2020-04-04 09:36] LABS: NEUTROPHILS # 0.2 10^3/uL (1.5-8.5); PLATELET COUNT, AUTOMATED 14 10^3/uL (150-450)
[2020-04-05 08:57] VITALS: BP 97/42
[2020-04-05 09:46] VITALS: BP 102/45
[2020-04-05 10:39] VITALS: BP 108/49
[2020-04-05 11:29] VITALS: BP 117/48
[2020-04-05 12:02] VITALS: BP 125/50
[~2020-04-09] VITALS: Ht 165.1 cm; Wt 90.0 kg
[2020-04-09] VITALS (8 sets, daily range): BP systolic 99–128; BP diastolic 54–82
[~2020-04-09 08:06] MED LIST changes: +ACETAMINOPHEN TAB 650MG DOSE (2X325MG) As Ordered ONE; +ACETAMINOPHEN TAB 650MG DOSE (2X325MG) PO ONE; +ACETAMINOPHEN TAB 650MG DOSE (2X325MG) PO SCH; +ACYC1TAB PO; -ACYC400T PO; +CEPH500C PO; +CORE6.25 PO; +DARBEPOETIN 100 MCG/0.5 ML *NON-DIALYSIS* SYRINGE (J0881) SC ONE; +DECITABINE IV ONE; +DECITABINE ONE; +EPOETIN 20,000 UNIT/ML SC ONE; +EPOETIN 40,000 UNIT 1ML VIAL (PROCRIT) (J0885 PER 1,000UNITS)(FOR ONCOLO) As Ordered ONE; +EPOETIN 40,000 UNIT 1ML VIAL (PROCRIT) (J0885 PER 1,000UNITS)(FOR ONCOLO) SC ONE; +EPOETIN 40,000 UNIT/ML SC ONE; +EPOETIN ALFA SC SCH; +EPOETIN As Ordered ONE; +FILGRASTIM 300 MCG/0.5 ML SYRINGE (J1442 PER 1MCG) SC ONE; +FILGRASTIM 300 MCG/0.5 ML SYRINGE (J1442 PER 1MCG) SC SCH; +FUROSEMIDE 20MG/2ML VIAL (J1940) IV ONE; +FUROSEMIDE 20MG/2ML VIAL (J1940) IV SCH; +LIDO5TD TOP; +LIDOCAINE 1% MDV 20ML VIAL As Ordered ONE; +NS IV ONE; +ONDANSETRON 4MG/2ML VIAL As Ordered ONE; +ONDANSETRON 4MG/2ML VIAL IV ONE; +PROCHLORPERAZINE 5 MG TAB (S0183) PO ONE; +SODIUM CHLORIDE 0.9% INJ 10 ML SYR IV PRN; +SODIUM CHLORIDE IV ONE; +[UNRECOGNIZED DRUG - OTHER] IV ONE; +ceFAZolin 1GM VIAL (J0690 PER 500MG) As Ordered ONE; +diphenhydrAMINE 25MG CAP As Ordered ONE; +diphenhydrAMINE 25MG CAP PO ONE; +diphenhydrAMINE 25MG CAP PO SCH; +diphenhydrAMINE 50MG CAP PO ONE
[2020-04-09 09:19] LABS: BASO % 1.4 % (0.0-1.0); HEMATOCRIT 30.1 % (36.0-47.0); HEMOGLOBIN 9.6 g/dl (12.0-15.5); LYMPH # 0.9 10^3/uL (1.5-5.0); LYMPH % 29.3 % (24.0-44.0); MEAN CORPUSCULAR HEMOGLOBIN 27.5 pg (27.0-33.0); MEAN CORPUSCULAR HGB CONC 31.9 g/dl (32.0-36.5); MEAN CORPUSCULAR VOLUME 86.2 fl (80.0-96.0); MONO # 1.4 10^3/uL (0.0-0.8); NEUTROPHILS % 18.6 % (36.0-66.0); RED BLOOD COUNT 3.49 10^6/uL (4.00-5.40); WHITE BLOOD COUNT 2.9 10^3/uL (4.0-10.0)
[2020-04-09 09:22] LABS: NEUTROPHILS # 0.6 10^3/uL (1.5-8.5); PLATELET COUNT, AUTOMATED 9 10^3/uL (150-450)
--- NOTE | 2020-04-09 09:31 | MEDONCPDOC ---
Medical Oncology Office Note Date of Service: Apr 09, 2020 Diagnosis/Treatment History Diagnosis; CMML with pancytopenia. Anemia, transfusion dependent. Thrombocytopenia requiring transfusions. Hematology history: CMML- diagnosed via BM bx 03/2019: - 03/20/19 - Leukoerythroblastic anemia- Hgb 7-range, thrombocytopenia 40s r celia, WBC in the 20s range with left shift and nucleated RBCs, scattered circulating blasts. Peripheral blood flow cytometry - no acute leukemia, no NHL. - 04/03/19 - BM Bx MDS/MPD at [facility]- Mild increased bone marrow blasts (5% by CD34 IHC), favor CMML - 1. FISH - negative t(9;22) BCR/ABL-1 gene rearrangement - no evidence of CML. Karyotype - mononucleosis 75 and 7, FISH: +deletion 17p supporting above diagnosis, at [facility]. -Decitabine chemotherapy started 05/09/2019 -Switched to inqovi (decitabine/cedazuridine) oral medication 12/2019. Interval History 65-year-old with MDS/CMML. On transfusion support for MDS. Feels more tired today than usual. No fever. Complains for diarrhea at least 3-4x a day. Allergies Coded Allergies: losartan (Verified Allergy, Severe, throat swelling, 06/28/18) Home Medications Active Scripts Cephalexin (Cephalexin) 500 Mg Capsule, 1 CAP PO TID for 7 Days, #21 CAP Prov:RAFAELA SONI MD 04/09/20 Prochlorperazine Maleate (Prochlorperazine Maleate) 10 Mg Tablet, 10 MG PO Q6H for 7 Days, #30 TAB Prov:AAYUSH PERERA MD 08/12/19 Reported Medications Pravastatin Sodium (Pravastatin Sodium) 40 Mg Tablet, 40 MG PO DAILY, TAB 03/24/20 Sennosides/Docusate Sodium (Senna-S Tablet) 1 Each Tablet, 1 TAB PO DAILY, TAB 03/20/20 Acyclovir (Acyclovir) 200 Mg Capsule, 400 MG PO TID 03/20/20 Eltrombopag Olamine (Promacta) 25 Mg Tablet, 25 MG PO DAILY, TAB 03/20/20 Levofloxacin (Levofloxacin) 500 Mg Tablet, 500 MG PO DAILY 03/20/20 Pantoprazole Sodium (Pantoprazole Sodium) 40 Mg Tablet.dr 40 MG PO DAILY 03/20/20 Fluconazole (Fluconazole) 200 Mg Tablet, 200 MG PO DAILY 03/20/20 Acetaminophen (Acetaminophen) 500 Mg Tablet, 1000 MG PO Q6H PRN for PAIN, TAB 02/16/20 Cholecalciferol (Vitamin D3) (Vitamin D3) 1,000 Unit Tablet, 1000 UNITS PO DAILY, TAB 08/03/19 Amlodipine Besylate (Amlodipine Besylate) 5 Mg Tablet, 5 MG PO DAILY 06/24/19 Umeclidinium [place] (Incruse Ellipta) 62.5 Mcg Blst.w.dev, 1 PUFF INH DAILY 06/28/18 Insulin Glargine,Hum.rec.anlog (Basaglar Kwikpen U-100) 100 Unit/1 Ml Insuln.pen, 30 UNIT SC QHS 06/28/18 Insulin Human Lispro (Humalog) 100 Unit/1 Ml Vial, 1 DOSE SC TID SLIDING SCALE 06/28/18 Isosorbide Mononitrate (Isosorbide Mononitrate ER) 60 Mg Tab, 60 MG PO DAILY 09/03/16 Carvedilol (Carvedilol) 12.5 Mg Tab, 12.5 MG PO BID, TAB 04/15/16 Past Medical History Past Medical History: CMML Ischemic cardiomyopathy. CAD S/P stent. CKD stage IV. Atrophic left kidney. Prior history of polycythemia. Was apparently referred to pulmonology for HECTOR evaluation but states she was not ready to make that appointment. Asthma. Obesity. Type 2 diabetes. CHF. Hypercholesterolemia. anemia of chronic kidney disease folate deficiency, CMV IgG positive asthma, hypercholesteremia. Past Surgical History: Pacemaker with defibrillator placement December 2017. Family History: Mother - had history throat, thyroid and uterine cancers. Sister had diabetes and Lupus. Three brothers have CAD. No other history of malignancies or dyscrasias per patient. Social History: Smoking - 10 cigarettes a day since the age of 14. Quit in 2013, but commenced smoking again February 2019 about 10 cigarettes a day. Alcohol - Denies history of alcohol or recreational drug use. Review of Systems General: Reports: Fatigue, Normal Appetite; Denies: Chills, Night Sweats, Malaise Constitutional: Reports: Weakness, Fatigue, Normal appetite; Denies: Chills, Fever, Malaise, Weight Loss, Lethargy Eyes: Denies: Pain, Vision change, Conjunctivae inflammation, Eyelid inflammation, Redness, Other HEENT: Denies: Head Aches, Ear Pain, Dysphagia, Sinus Congestion, Post Nasal Drip, Sore Throat, Epistaxis, Other Symptoms Skin: Reports: Bruising; Denies: Rash, Lesions, Jaundice, Other Pulmonary: Denies: Dyspnea, Cough, Pleuritic Chest Pain, Other Symptoms Cardiovascular: Reports: Edema; Denies: Chest Pain, Palpitations, Orthopnea, Paroxysmal Noc. Dyspnea, Lt Headedness, Other Symptoms Gastrointestinal: Reports: Diarrhea; Denies: Nausea, Vomiting, Abdominal Pain, Constipation, Melena, Hematochezia, Other Symptoms Genitourinary: Denies: Dysuria, Frequency, Incontinence, Hematuria, Retention, Other Symptoms Hematologic: Reports: Bruising; Denies: Bleeding Excessively, Petecchia, Purpura, Enlarged Lymph Nodes, Other Hematologic Endocrine: Denies: Polydipsia, Polyphagia, Polyuria, Heat Intolerance, Cold Intolerance, Other Endocrine Sx Musculoskeletal: Denies: Neck pain, Shoulder pain, Arm pain, Back pain, Hand pain, Leg pain, Foot pain, Joint pain, Muscle pain, Spasms, Gout, Joint sweling, Muscle stiffness, Midthoracic pain, Other Neurological: Reports: Weakness; Denies: Numbness, Incoordination, Change in Speech, Confusion, Seizures, Other Symptoms Psych: Reports: Mood Normal; Denies: Anxiety, Depression Physical Examination ECOG PERFORMANCE STATUS: 2 General Exam: Positive: Alert, Cooperative, No Acute Distress, Oriented Times Three; Negative: Other Eye Exam: Positive: Conjunctiva & lids normal, EOMI; Negative: Sclera icteric ENT EXAM: Positive: Atraumatic, Nares Patent Neck Exam: Positive: Supple; Negative: JVD, Thyromegaly, Lymphadenopathy Chest Exam: Positive: Clear to auscultation, Normal air movement; Negative: Rales, Rhonchi, Wheezing, Diminished, Other Heart Exam: Positive: Rate Normal, Regular Rhythm, Normal S1, Normal S2; Negative: Irregular Rhythm, Gallops, Murmurs, Rubs, Other Breast Exam: Positive: Symmetric Bilaterally Abdomen Exam: Positive: Normal bowel sounds; Negative: Soft, Tenderness, Hepatospenomegaly, Mass, Hernia, Other Extremity Exam: Positive: Edema, Normal pulses; Negative: Clubbing, Cyanosis, Tenderness, Swelling, Other Skin Exam: Positive: Nl turgor and temperature, Other skin issue (ecchymosis on upper extremities); Negative: Rash, Breakdown, Lesion Neuro Exam: Positive: Normal Speech; Negative: Normal Gait (. Came in a wheelchair) Psych Exam: Positive: Mental status NL, Mood NL, Oriented x 3; Negative: Anxiety Ht / Wt Ht / Wt Height:5 Feet 5 Inches Weight: 90.000 Kg Vital Signs Vital Signs Date Time Temp Pulse Resp B/P (MAP) Pulse Ox O2 Delivery O2 Flow Rate FiO2 04/09/20 09:08 98.2 82 18 99/54 (69) 96 Room Air Laboratory Data Assessment/Plan Assessment CMML with 5% myeloblasts seen on bone marrow biopsy. Pancytopenia secondary to CMML/MDS. Overall poor prognosis Patient is currently transfusion dependent. Previously on decitabine chemotherapy since 04/2019, On inqovi (decitabine/cedazuridine) as of 01/06/2020 to 02/2020. 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 Bone marrow biopsy 03/07/2020 in [facility] showed markedly hypocellular bone marrow with marked pancytopenia with 9% circulating blasts. No evidence of increased blasts in bone marrow. No evidence of acute leukemia but residual disease could not be completely ruled out. Plan Previously on decitabine chemotherapy then on inqovi (decitabine/cedazuridine) up to 02/2020. Started azacitidine chemotherapy in [facility] 03/10/2020, but this was subsequently put on hold because of pancytopenia and GI bleed. I again discussed a referral to [facility] or [facility] for additional treatment options. I discussed that there are no other treatment options we could offer her at this point and a referral to an academic center would be appropriate if she wanted to pursue additional treatment options. I also discussed purely supportive care and or hospice (without active treatment for CMML) as she has had signs and symptoms of disease progression on decitabine. She does not want to do any of the above. Wants to continue on transfusion support as needed. I also advised going to ER for an assessment and possible admission for failure to thrive but she did not want to do this at this time either. Scheduled for cataract surgery on Mar. Continue with epoetin alpha 60,000 units weekly dose for CKD stage 4 and MDS. CBC to be checked biweekly with blood transfusion and platelet transfusion as needed. Will restart Filgrastim injections weekly for significant neutropenia/leukopenia since records from [facility] showed no evidence of acute leukemia on last bone marrow aspirate biopsy. To continue on prophylactic antifungal, Antiviral and antibacterial medications as she has had significant neutropenia. The patient was started on Promacta at [facility] after failure to respond to blood transfusions. CBC today showed anemia and thrombocytopenia. Needs platelet transfusion. For Epoetin alpha injection today. Also for filgrastim injection. CC TO: CC TO: Primary Care Provider: Ana Paul MD, FLORENCE P. MD Apr 09, 2020 09:31
== END | disposition home or self-care (01) ==
LOC: M ONCM 04-11 14:30
PROVIDERS: ATTEND Internal Medicine Medical Oncology
DX: Z51.11 Encounter for antineoplastic chemotherapy (principal); R42 Dizziness and giddiness; W19.XXXA Unspecified fall, initial encounter; J90 Pleural effusion, not elsewhere classified; D46.9 Myelodysplastic syndrome, unspecified; D69.6 Thrombocytopenia, unspecified; N18.4 Chronic kidney disease, stage 4 (severe); D63.1 Anemia in chronic kidney disease; C93.10 Chronic myelomonocytic leukemia not having achieved remission; E53.8 Deficiency of other specified B group vitamins; G72.9 Myopathy, unspecified; I25.10 Atherosclerotic heart disease of native coronary artery without angina pectoris; Z95.5 Presence of coronary angioplasty implant and graft; J45.909 Unspecified asthma, uncomplicated; E66.9 Obesity, unspecified; E11.9 Type 2 diabetes mellitus without complications; I50.9 Heart failure, unspecified; E78.00 Pure hypercholesterolemia, unspecified; Z95.810 Presence of automatic (implantable) cardiac defibrillator; F17.210 Nicotine dependence, cigarettes, uncomplicated; Z88.8 Allergy status to other drugs, medicaments and biological substances; Z79.899 Other long term (current) drug therapy; D46.4 Refractory anemia, unspecified; D61.82 Myelophthisis; C94.6 Myelodysplastic disease, not elsewhere classified; D72.829 Elevated white blood cell count, unspecified; Z79.4 Long term (current) use of insulin; D64.9 Anemia, unspecified
CPT/HCPCS: 36415; 36430; 36591; 70450; 71045; 80048; 80053; 81001; 82270; 82550; 82553; 82607; 82728; 83010; 83540; 83550; 83605; 83615; 83735; 84439; 84443; 84484; 85025; 85027; 85049; 85055; 85610; 85730; 86850; 86900; 86901; 86920; 87631; 93005; 93041; 94760; 96372; 96375; 96413; 96415; 99285; G0463; J0690; J0881; J0885; J0894; J1442; J1642; J1644; J1940; J2405; P9016; P9034; P9036

== ENCOUNTER 2020-04-09 21:58 | Inpatient (IN) | payer MEDICARE, OTHER ==
[~2020-04-09] VITALS: Ht 170.2 cm; Wt 78.5 kg
[~2020-04-09 21:58] MED LIST changes: -ACETAMINOPHEN TAB 650MG DOSE (2X325MG) As Ordered ONE; -ACETAMINOPHEN TAB 650MG DOSE (2X325MG) PO ONE; -ACETAMINOPHEN TAB 650MG DOSE (2X325MG) PO SCH; -ACYC1TAB PO; +ACYC400T PO; -CORE6.25 PO; -DARBEPOETIN 100 MCG/0.5 ML *NON-DIALYSIS* SYRINGE (J0881) SC ONE; -DECITABINE IV ONE; -DECITABINE ONE; -EPOETIN 20,000 UNIT/ML SC ONE; -EPOETIN 40,000 UNIT 1ML VIAL (PROCRIT) (J0885 PER 1,000UNITS)(FOR ONCOLO) As Ordered ONE; -EPOETIN 40,000 UNIT 1ML VIAL (PROCRIT) (J0885 PER 1,000UNITS)(FOR ONCOLO) SC ONE; -EPOETIN 40,000 UNIT/ML SC ONE; -EPOETIN ALFA SC SCH; -EPOETIN As Ordered ONE; -FILGRASTIM 300 MCG/0.5 ML SYRINGE (J1442 PER 1MCG) SC ONE; -FILGRASTIM 300 MCG/0.5 ML SYRINGE (J1442 PER 1MCG) SC SCH; -FUROSEMIDE 20MG/2ML VIAL (J1940) IV ONE; -FUROSEMIDE 20MG/2ML VIAL (J1940) IV SCH; -LIDO5TD TOP; -LIDOCAINE 1% MDV 20ML VIAL As Ordered ONE; -NS IV ONE; -ONDANSETRON 4MG/2ML VIAL As Ordered ONE; -ONDANSETRON 4MG/2ML VIAL IV ONE; -PROCHLORPERAZINE 5 MG TAB (S0183) PO ONE; -SODIUM CHLORIDE 0.9% INJ 10 ML SYR IV PRN; -SODIUM CHLORIDE IV ONE; -[UNRECOGNIZED DRUG - OTHER] IV ONE; -ceFAZolin 1GM VIAL (J0690 PER 500MG) As Ordered ONE; -diphenhydrAMINE 25MG CAP As Ordered ONE; -diphenhydrAMINE 25MG CAP PO ONE; -diphenhydrAMINE 25MG CAP PO SCH; -diphenhydrAMINE 50MG CAP PO ONE
--- OUTSIDE RECORDS SUMMARY | 2020-04-09 22:03 | CCD ---
Author Author [facility] Organization [facility] Address Unknown Phone Unavailable Care Team Providers Care Justowriter Operator Name Role Phone Ana Paul Unavailable PROBLEMS Type Condition ICD9-CM Code [id number] Code Onset Dates Condition S tatus W/U Status Risk SNOMED Code Notes Problem Coronary artery disease invo lving [place] coronary artery of [place] heart without angina pectoris I25.10 Active confirmed 031121 3837095 Problem History of permanent cardiac pacemaker placement Z 95.0 Active confirmed 007742108 Problem Systolic CHF, chronic I50.22 Active confirmed 550077174 Problem Type 2 diabetes mellitus E11.9 Active confirmed 69551485 Problem Abnormal chest x-ray R93.8 Active confirmed 342811909 Problem Renovascular hypertension I15.0 Active confirmed 116779662 Problem Ischemic cardiomyopathy I25.5 Active confirmed 405517219 Problem Hyperparathyroidism E21.3 Active confirmed 95767287 Problem Obesity E66.9 Active confirmed 189558846 Problem HECTOR (obstructive sleep apnea) G47.33 Active confirm ed 83928845 Problem Hypoparathyroidism E20.9 Active confirmed 3 7341655 Problem Abnormal pulse oximetry R79.81 Active confirmed 664027486 Problem Left renal atrophy N26.1 Active confirmed 1 99692607 Problem Hypertriglyceridemia E78.1 Active confirmed 494519156 Problem Chronic diastolic congestive heart failure I50.32 Active confirmed 444746417 Problem Dyslipidemia E78.5 Active confirmed 8460773 07 Problem Type 2 diabetes mellitus with diabetic chronic kidney disease E11.22 Active confirmed 644909368284 Problem Unspecified systolic (congestive) heart failure I5 0.20 Active confirmed 490181629 Problem Secondary hyperparathyroidism (of renal origin) N2 5.81 Active confirmed 35508923 Problem Type 2 diabetes mellitus with hyperglycemia E11.65 Active confirmed 49372862 Problem Tobacco dependence F17.200 Active confirmed 13165536 Problem Hypercalcemia E83.52 Active confirmed 807590 09 Problem History of heart artery stent Z95.5 Active confirm ed 584575878 Problem Thrombocytopenia D69.6 Active confirmed 415 274546 Problem 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 Active confirmed 740555198 Problem 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 Active confirmed 1785194 Problem Essential hypertension I10 Active confirmed 16268386 Problem Uncomplicated asthma, unspecified asthma severity J45.909 Active confirmed 956575387 Problem Coronary angioplasty status Z98.61 Active confirmed 589813372 Problem Mixed hyperlipidemia E78.2 Active confirmed 137665636 Problem Chronic obstructive pulmonary disease, unspecified COPD ty pe J44.9 Active confirmed 41926357 Problem History of implantable cardioverter-defibrillato r (ICD) placement Z95.810 Active confirmed 779647205 Problem Diastolic CHF with preserved left ventricular fu nction, NYHA class 2 I50.30 Active confirmed 901279847 Problem Bilateral carotid artery stenosis I65.23 Active confirmed 473902467048818 Problem CKD (chronic kidney disease) stage 4, GFR 15-29 ml/min N18.4 Active confirmed 413379016 ALLERGIES Allergen (clinical drug ingredient) Drug/Non Drug Allergy do cumented on EMR Reaction Allergy Type Onset Date Status losartan Losartan Potassium([facility] Code:[address]-03) throa t swelling Drug Allergy Active ENCOUNTERS from 1955 to 2020-03-22 Encounter Location Date Provider Diagnosis [address] [address] 02 Mar, 2020 Ana Paul Renovascular hypertension I15.0 IMMUNIZATIONS Vaccine Route Administration Date Status Influenza (18 yrs & older) Flublok IM Intramuscular Dec 17, 2018 Administered Pneumococcal 0.5mL (Prevnar 13) IM Intramuscular Apr 15, 2018 Administered Pneumococcal Adult 0.5mL (Pneumovax 23) IM Intramuscular Mar 19, 2017 Administered Hepatitis A & B 1mL (Twinrix) IM Intramuscular April 25, 2016 A dministered Influenza (6mo & up) Fluzone Unknown Jan 15, 2017 Adm inistered Influenza (6mo & up) Fluzone IM Intramuscular Nov 14, 2015 Ad ministered Influenza (6mo & up) Fluzone Unknown Nov 07, 2015 Oth ers Influenza (6mo & up) Fluzone IM Intramuscular Nov 09, 2014 Ad ministered Influenza (6mo & up) Fluzone IM Intramuscular Nov 16, 2013 Ad ministered SOCIAL HISTORY Tobacco Use: Social History Observation Description Date Details (start date - stop date) Former Smoker Sex Assigned At : Social History Observation Description Sex Assigned At Unknown Education: Question Answer Notes Level of Education: High School Audit Question Answer Notes Total Score: 0 Interpretation: Alcohol Education Language: Question Answer Notes Languages spoken: Divehi Confucianist: Question Answer Notes Confucianist No adventist beliefs that would impact health care. Sexual Hx: Question Answer Notes Had sex in the last 12 months (vaginal, oral, or anal)? Yes Drug and Alcohol Question Answer Notes Total Score: 0 Interpretation: No problems reported Alcohol Screening: Question Answer Notes Did you have a drink containing alcohol in the past year? No Points 0 Interpretation Negative BMI Care Goal Follow-Up Question Answer Notes Above Normal BMI Follow-Up Dietary management educatio n, guidance, and counseling Tobacco Use: Question Answer Notes Are you a: former smoker How long has it been since you last smoked? 1-5 years REASON FOR REFERRAL No Information VITAL SIGNS No information MEDICATIONS Medication SIG (Take, Route, Frequency, Duration) Notes Start Da te End Date Status Saline Nasal [place] 0.65 % 2 sprays in each nostril as needed Nasally every 2 hrs for 30 Days Active Pravastatin Sodium 40 MG 1 tablet Orally Once a day for 30 day(s ) June, Active Folic Acid 1 MG 1 tablet Orally Once a day for 30 day(s) Active Artificial Tear Solution - 1 drop Ophthalmic daily as needed Active Shower Chair without wheels as directed _ Daily Use for 999 days May, Active Pen Lithia 30G X 8 MM dx: e11.9 topically qid Mar, 8 Active Incruse Ellipta 62.5 MCG/INH 1 puff Inhalation Once a day for 30 days Active Isosorbide Mononitrate ER 60 MG 1 tablet in the morning Orally O nce a day May, Active Basaglar KwikPen 100 UNIT/ML as directed 30 units subcutaneous b efore bedtime Mar, Active One Touch Ultra 2 Lancet One Touch 1 intradermally bef ore breakfast and at night Mar, Active Debrox 6.5 % 5 drops into affected ear Otic Twice a day prn Apr, Active Spironolactone 100 MG 1 tablet Orally once daily Active ReliOn Lancets Micro-Thin 33G . as directed Dx E11.9 three times daily Mar, Active AmLODIPine Besylate 5 mg 1 tablet Orally daily for 90 day(s) Active FiberCon 625 MG 1 tab(s) Orally Daily Active Furosemide 40 MG 1 tablet Orally bid, AM and midafternoon. Hold SBP < 140 or creatinine > 1.8 Active Humalog KwikPen 100 UNIT/ML DX: E11.9; sliding scale as directed Subcutaneous tid June, Active Coreg 12.5 MG 1 tab Orally bid Activ e Wheelchair - as directed _ Daily for 999 days May, Active PROCEDURES No Information RESULTS No Results REASON FOR VISIT amlodopoine MEDICAL (GENERAL) HISTORY Type Description Date Medical History AICD 2009 Medical History Echocardiogram 2013 EF 40% Systolic CHF Medical History Ischemic Cardiomyopathy- follows with Dr Mariel Aldridge Medical History Cardiac Stent x 2 in 2009- [place] Medical History Cardiac stent x 2 at [facility] 03/2016 Medical History Tobacco abuse (quit 2013) Medical History Chronic kidney disease stage 4, GFR from outside records 21% in January 2015. Follows with Dr. Krishna Medical History Atrophic Left Kidney - Renal 2013 Medical History Polycythemia: Was referred to pulmonology for HECTOR but states that she is not ready to make appointment Medical History Asthma Medical History Obesity Medical History Type II DM Medical History Systolic CHF with reduced le ft ventricular function, NYHA class 2 Medical History Abnormal oximetry Medical History 10-yr ASCVD risk: 8.3% Medical History Hypercholesterolemia Medical History CMML diagnosed by BM biopsy, [facility], 03/2019 chemotherapy (Decitabine) Medical History leukemia Surgical History Pacemaker with Defibrillator-Medtronic 2 010 Surgical History 2 cardiac stents 2009 Surgical History 2 cardiac stents-[facility] 03/2016 Surgical History portacath placement 09/09/16 Surgical History Pacemaker with defib replacement 12/2017 Hospitalization History Stent Placement 4 2016 Hospitalization History Pacemaker w/ Defibrillator. 2009 Hospitalization History CHF exacerbation and hypertensive ur gency 06/2013 Hospitalization History blood transfusion at [facility] 04/2019 Goals Section No Information Health Concerns No Information MEDICAL EQUIPMENT No Information MENTAL STATUS No Information FUNCTIONAL STATUS No Information ASSESSMENTS Encounter Date Diagnosis Assessment Notes Treatment Notes Treatm ent Clinical Notes Mar, Renovascular hypertension (ICD-10 - I15.0) PLAN OF TREATMENT Medication Medication Name Sig Start Date Stop Date One Touch Ultra 2 Lancet One Touch 1 intradermally bef ore breakfast and at night Mar, Humalog KwikPen 100 UNIT/ML DX: E11.9; sliding scale as directed Subcutaneous tid June, Basaglar KwikPen 100 UNIT/ML as directed 30 units subcutaneo us before bedtime Mar, Incruse Ellipta 62.5 MCG/INH 1 puff Inhalation Once a day for 30 days Isosorbide Mononitrate ER 60 MG 1 tablet in the morning Oral ly Once a day May, AmLODIPine Besylate 5 mg 1 tablet Orally daily for 90 day(s) Furosemide 40 MG 1 tablet Orally bid, AM and midafternoon. Hold SBP < 140 or creatinine > 1.8 ReliOn Lancets Micro-Thin 33G . as directed Dx E11.9 three t imes daily Mar, Pen [place] 30G X 8 MM dx: e11.9 topically qid Mar, Spironolactone 100 MG 1 tablet Orally once daily Coreg 12.5 MG 1 tab Orally bid Next Appt Details Provider Name:Anachristiano Herronhay, 2020-03-30 01:30:00 PM, [address] [place] [address], [phone], Provider Name:Imelda Ronquillo, 2020-04-05 02: 30:00 PM, [address] [place] [address], [id number], Provider Name:Anachristiano Herronhay, 2020-04-20 01:45:00 PM, [address] [place] [address], [id number], Insurance Providers Payer Name Payer Address Payer Phone Insured Name Patient Relati onship to Insured Coverage Start Date Coverage End Date [facility] [address] [place] [id number] PATRICIA PAKRS
--- OUTSIDE RECORDS SUMMARY | 2020-04-09 22:03 | CCD ---
Author Author [facility] Organization [facility] Address Unknown Phone Unavailable Care Team Providers Care Mechanical Assembler Name Role Phone Ana Paul Unavailable PROBLEMS Type Condition ICD9-CM Code ULM15-HT Code Onset Dates Condition S tatus W/U Status Risk SNOMED Code Notes Problem Coronary artery disease invo lving [place] coronary artery of [place] heart without angina pectoris I25.10 Active confirmed 657606 6111111 Problem History of permanent cardiac pacemaker placement Z 95.0 Active confirmed 085174484 Problem Systolic CHF, chronic I50.22 Active confirmed 536286076 Problem Type 2 diabetes mellitus E11.9 Active confirmed 27934302 Problem Abnormal chest x-ray R93.8 Active confirmed 120469590 Problem Renovascular hypertension I15.0 Active confirmed 200685523 Problem Ischemic cardiomyopathy I25.5 Active confirmed 982015966 Problem Hyperparathyroidism E21.3 Active confirmed 43323077 Problem Obesity E66.9 Active confirmed 779393177 Problem HECTOR (obstructive sleep apnea) G47.33 Active confirm ed 22824379 Problem Hypoparathyroidism E20.9 Active confirmed 3 9144688 Problem Abnormal pulse oximetry R79.81 Active confirmed 251411627 Problem Left renal atrophy N26.1 Active confirmed 1 84823285 Problem Hypertriglyceridemia E78.1 Active confirmed 184890023 Problem Chronic diastolic congestive heart failure I50.32 Active confirmed 341862412 Problem Dyslipidemia E78.5 Active confirmed 9292936 07 Problem Type 2 diabetes mellitus with diabetic chronic kidney disease E11.22 Active confirmed 840096423761 Problem Unspecified systolic (congestive) heart failure I5 0.20 Active confirmed 786879460 Problem Secondary hyperparathyroidism (of renal origin) N2 5.81 Active confirmed 63062999 Problem Type 2 diabetes mellitus with hyperglycemia E11.65 Active confirmed 54710818 Problem Tobacco dependence F17.200 Active confirmed 67202501 Problem Hypercalcemia E83.52 Active confirmed 079554 09 Problem History of heart artery stent Z95.5 Active confirm ed 819332079 Problem Thrombocytopenia D69.6 Active confirmed 415 636302 Problem 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 Active confirmed 585391074 Problem 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 Active confirmed 1147879 Problem Essential hypertension I10 Active confirmed 89048341 Problem Uncomplicated asthma, unspecified asthma severity J45.909 Active confirmed 686365137 Problem Coronary angioplasty status Z98.61 Active confirmed 455104256 Problem Mixed hyperlipidemia E78.2 Active confirmed 436982698 Problem Chronic obstructive pulmonary disease, unspecified COPD ty pe J44.9 Active confirmed 90659321 Problem History of implantable cardioverter-defibrillato r (ICD) placement Z95.810 Active confirmed 319096024 Problem Diastolic CHF with preserved left ventricular fu nction, NYHA class 2 I50.30 Active confirmed 289171975 Problem Bilateral carotid artery stenosis I65.23 Active confirmed 614388804516669 Problem CKD (chronic kidney disease) stage 4, GFR 15-29 ml/min N18.4 Active confirmed 687284006 ALLERGIES Allergen (clinical drug ingredient) Drug/Non Drug Allergy do cumented on EMR Reaction Allergy Type Onset Date Status losartan Losartan Potassium([facility] Code:[address]-72) throa t swelling Drug Allergy Active ENCOUNTERS from 1955 to 2020-03-27 Encounter Location Date Provider Diagnosis [facility] Resident [address] [place] [address] 08 Mar, 2020 Ana Paul IMMUNIZATIONS Vaccine Route Administration Date Status Influenza (18 yrs & older) Flublok IM Intramuscular Dec 17, 2018 Administered Hepatitis A & B 1mL (Twinrix) IM Intramuscular April 25, 2016 A dministered Pneumococcal Adult 0.5mL (Pneumovax 23) IM Intramuscular Mar 19, 2017 Administered Pneumococcal 0.5mL (Prevnar 13) IM Intramuscular Apr 15, 2018 Administered Influenza (6mo & up) Fluzone Unknown Jan [...] Education Language: Question Answer Notes Languages spoken: Thai Baptism: Question Answer Notes Baptism No jew beliefs that would impact health care. Sexual [...] Notes Start Da te End Date Status Humalog RaminPen 100 UNIT/ML DX: E11.9; sliding scale as directed Subcutaneous tid June, Active Artificial Tear Solution - 1 drop Ophthalmic daily as needed Active Isosorbide Mononitrate ER 60 MG 1 tablet in the morning Orally O nce a day May, Active Wheelchair - as directed _ Daily for 999 days May, Active Pravastatin Sodium 40 MG 1 tablet Orally Once a day for 30 day(s ) June, Active Sennosides-Docusate Sodium 8.6-50 MG 1 tablet in the e vening as needed Orally Once a day for 30 day(s) Mar, Active Spironolactone 100 MG 1 tablet Orally once daily Active Umeclidinium Jud 62.5 MCG/INH 1 puff Inhalation Once a day Mar, Active Pantoprazole Sodium 40 MG 1 tablet Orally Once a day for 30 day( s) Mar, Active Folic Acid 1 MG 1 tablet Orally Once a day for 30 day(s) Active Prochlorperazine Maleate 10 MG 1 tablet as needed Orally Three t imes a day Mar, Active AmLODIPine Besylate 5 mg 1 tablet Orally daily for 90 day(s) Active Furosemide 40 MG 1 tablet Orally bid, AM and midafternoon. Hold SBP < 140 or creatinine > 1.8 Active ReliOn Lancets Micro-Thin 33G . as directed Dx E11.9 three times daily Mar, Active Basaglar KwikPen 100 UNIT/ML as directed 30 units subcutaneous b efore bedtime Mar, Active Coreg 12.5 MG 1 tab Orally bid Activ e Humalog 100 UNIT/ML as directed Subcutaneous Mar, Active Pen [place] 30G X 8 MM dx: e11.9 topically qid Mar, 8 Active FiberCon 625 MG 1 tab(s) Orally Daily prn Unknown Shower Chair without wheels as directed _ Daily Use for 999 days May, Active Levofloxacin 500 MG 1 tablet Orally Once a day for 10 day(s) Mar, Active One Touch Ultra 2 Lancet One Touch 1 intradermally bef ore breakfast and at night Mar, Active Fluconazole 200 MG 1 tablet Orally for 10 day(s) Mar, 021 Active Acetaminophen 500 MG 2 tablet as needed Orally every 6 hrs Mar, Active Acyclovir 200 MG 1 capsule Orally Three times a day for 10 day(s ) Mar, Active Incruse Ellipta 62.5 MCG/INH 1 puff Inhalation Once a day for 30 days Active Vitamin D-3 25 MCG (1000 UT) 1 capsule Orally Once a day for 30 day(s) Mar, Active Promacta 25 MG 1 tablet on an empty stomach 1 hour before or 2 hours after a meal Orally Once a day for 30 day(s) Mar, Active PROCEDURES No Information RESULTS No Results REASON FOR VISIT [facility] D/C 03/25; Anemia/ Thrombocytopenia MEDICAL (GENERAL) HISTORY Type Description Date Medical History AICD 2009 Medical History Echocardiogram 2013 EF 40% Systolic CHF Medical History Ischemic Cardiomyopathy- follows with Dr Mariel Aldridge Medical History Cardiac Stent x 2 in 2009- [place] Medical History Cardiac stent x 2 at [facility] 03/2016 Medical History Tobacco abuse (quit 2013) [...] Medical History CMML diagnosed by BM biopsy, [facility], 03/2019 chemotherapy (Decitabine) Medical History leukemia Surgical History Pacemaker with Defibrillator-Medtronic 2 010 Surgical History 2 cardiac stents 2009 Surgical History 2 cardiac stents-[facility] 03/2016 Surgical History portacath placement 09/09/16 Surgical History Pacemaker with defib replacement 12/2017 Hospitalization History Stent Placement 4 2009, 2016 Hospitalization History Pacemaker w/ Defibrillator. 2009 Hospitalization History CHF exacerbation and hypertensive ur gency 06/2013 Hospitalization History blood transfusion at [facility] 04/2019 Goals Section No Information Health Concerns No Information MEDICAL EQUIPMENT No Information MENTAL STATUS No Information FUNCTIONAL STATUS No Information ASSESSMENTS Encounter Date Diagnosis Assessment Notes Treatment Notes Treatm ent Clinical Notes Mar, Other Discussion with patient about recent discharge from hospital. Reports she is doing well, and went to Oncology today and did not need any treatment. Medication reconciliation completed. Reports that she uses a walker to get around outside and a w/c on the bus. PLAN OF TREATMENT Next Appt Details Provider Name:Ana Beverly, 2020-03-30 01:30:00 PM, [address] [place] [address], [place], [place], [id number], Provider Name:Imelda Ronquillo, 2020-04-05 02: 30:00 PM, [address] [place] [address], [phone], Provider Name:Ana Beverly, 2020-04-20 01:45:00 PM, [address] [place] [address], [id number], Insurance Providers Payer Name Payer Address Payer Phone Insured Name Patient Relati onship to Insured Coverage Start Date Coverage End Date [facility] [address] [facility] [phone] PATRICIA PARKS
--- OUTSIDE RECORDS SUMMARY | 2020-04-09 22:04 | CCD ---
Author Author [facility] Organization [facility] Address Unknown Phone Unavailable Care Team Providers Care Inspector Watch Train Name Role Phone Ana Paul Unavailable PROBLEMS Type Condition ICD9-CM Code [id number] Code Onset Dates Condition S tatus SNOMED Code Notes Problem Coronary artery disease invo lving [place] coronary artery of [place] heart without angina pectoris I25.10 Active 010967286809 7 Problem History of permanent cardiac pacemaker placement Z 95.0 Active 155080435 Problem Systolic CHF, chronic I50.22 Active 417904030 Problem Type 2 diabetes mellitus E11.9 Active 3161445 6 Problem Abnormal chest x-ray R93.8 Active 099386592 Problem Renovascular hypertension I15.0 Active 103467 005 Problem Ischemic cardiomyopathy I25.5 Active 58843249 4 Problem Hyperparathyroidism E21.3 Active 35255886 Problem Obesity E66.9 Active 102650809 Problem HECTOR (obstructive sleep apnea) G47.33 Active 78 005593 Problem Hypoparathyroidism E20.9 Active 24773734 Problem Abnormal pulse oximetry R79.81 Active 67630982 0 Problem Left renal atrophy N26.1 Active 198677209 Problem Hypertriglyceridemia E78.1 Active 032799035 Problem Chronic diastolic congestive heart failure I50.32 Active 707531021 Problem Dyslipidemia E78.5 Active 309288331 Problem Type 2 diabetes mellitus with diabetic chronic kidney disease E11.22 Active 408001113440 Problem Unspecified systolic (congestive) heart failure I5 0.20 Active 892225943 Problem Secondary hyperparathyroidism (of renal origin) N2 5.81 Active 56671487 Problem Type 2 diabetes mellitus with hyperglycemia E11.65 Active 08903430 Problem Tobacco dependence F17.200 Active 50540353 Problem Hypercalcemia E83.52 Active 37509992 Problem History of heart artery stent Z95.5 Active 38 5448834 Problem Thrombocytopenia D69.6 Active 556759135 Problem 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 Active 676951800 Problem 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 Active 30630 01 Problem Essential hypertension I10 Active 23881100 Problem Uncomplicated asthma, unspecified asthma severity J45.909 Active 328024380 Problem Coronary angioplasty status Z98.61 Active 4169 31597 Problem Mixed hyperlipidemia E78.2 Active 146341631 Problem Chronic obstructive pulmonary disease, unspecified COPD ty pe J44.9 Active 23528029 Problem History of implantable cardioverter-defibrillato r (ICD) placement Z95.810 Active 233284882 Problem Diastolic CHF with preserved left ventricular fu nction, NYHA class 2 I50.30 Active 411750815 Problem Bilateral carotid artery stenosis I65.23 Active 390964536743531 Problem CKD (chronic kidney disease) stage 4, GFR 15-29 ml/min N18.4 Active 380072673 ALLERGIES Allergen (clinical drug ingredient) Drug/Non Drug Allergy do cumented on EMR Reaction Allergy Type Onset Date Status losartan Losartan Potassium([facility] Code:[address]-41) throa t swelling Drug Allergy Active ENCOUNTERS from 1955 to 2020-03-11 Encounter Location Date Provider Diagnosis [address] [id number] Feb, Ana Paul Chronic obstructive pulmonary disease, u nspecified COPD type J44.9 IMMUNIZATIONS Vaccine Route Administration Date Status Influenza [...] Education Language: Question Answer Notes Languages spoken: Gren[place] Spiritism: Question Answer Notes Spiritism No zoroastrianism beliefs that would impact health care. Sexual [...] Da te End Date Status Saline Nasal [place] 0.65 % 2 sprays in each nostril as needed Nasally every 2 hrs for 30 Days Active Pravastatin Sodium 40 MG 1 tablet Orally Once a day for 30 day(s ) June, Active Folic Acid 1 MG 1 tablet Orally Once a day for 30 day(s) Active FiberCon 625 MG 1 tab(s) Orally Daily Active Shower Chair without wheels as directed _ Daily Use for 999 days May, Active [place] 30G X 8 MM dx: e11.9 topically [...] ore breakfast and at night Mar, Active Spironolactone 100 MG 1 tablet Orally once daily Active Artificial Tear Solution - 1 drop Ophthalmic daily as needed Active ReliOn Lancets Micro-Thin 33G . as directed Dx E11.9 three times daily Mar, Active Furosemide 40 MG 1 tablet Orally bid, AM and midafternoon. Hold SBP < 140 or creatinine > 1.8 Active Coreg 12.5 MG 1 tab Orally bid Activ e Debrox 6.5 % 5 drops into affected ear Otic Twice a day prn Apr, Active Humalog JohanikPen 100 UNIT/ML DX: E11.9; sliding scale as directed Subcutaneous tid June, Active AmLODIPine Besylate 5 mg 1 tablet Orally daily for 30 days Active Wheelchair - as directed _ Daily for 999 days May, Active PROCEDURES No Information RESULTS No Results REASON FOR VISIT please send to different pharmacy MEDICAL (GENERAL) HISTORY Type Description Date Medical History AICD 2009 Medical History Echocardiogram 2013 EF 40% Systolic CHF Medical History Ischemic Cardiomyopathy- follows with Dr Mariel Aldridge Medical History Cardiac Stent x 2 in 2009- [place] Medical History Cardiac stent x 2 at [facility] 03/2016 Medical History Tobacco abuse (quit 2013) [...] Medical History CMML diagnosed by BM biopsy, [facility] 03/2019 chemotherapy (Decitabine) Medical History leukemia Surgical History Pacemaker with Defibrillator-Medtronic 2 010 Surgical History 2 cardiac stents 2009 Surgical History 2 cardiac stents-[facility] 03/2016 Surgical History portacath placement 09/09/16 Surgical History Pacemaker with defib replacement 12/2017 Hospitalization History Stent Placement 4 2016 Hospitalization History Pacemaker w/ Defibrillator. 2009 Hospitalization History CHF exacerbation and hypertensive ur gency 06/2013 Hospitalization History blood transfusion [facility] 04/2019 Goals Section No Information Health Concerns No Information MEDICAL EQUIPMENT No Information MENTAL STATUS No Information FUNCTIONAL STATUS No Information ASSESSMENTS Encounter Date Diagnosis Assessment Notes Treatment Notes Treatm ent Clinical Notes Feb, Chronic obstructive pulmonar y disease, unspecified COPD type (ICD- 10 - J44.9) PLAN OF TREATMENT Medication Medication Name Sig Start Date Stop Date One Touch Ultra 2 Lancet One Touch 1 intradermally bef ore breakfast and at night Mar, Humalog KwikPen 100 UNIT/ML DX: E11.9; sliding scale as directed Subcutaneous tid June, Basaglar KwikPen 100 UNIT/ML as directed 30 units subcutaneo us before bedtime Mar, Isosorbide Mononitrate ER 60 MG 1 tablet in the morning Oral ly Once a day May, Incruse Ellipta 62.5 MCG/INH 1 puff Inhalation Once a day for 30 days Furosemide 40 MG 1 tablet Orally bid, AM and midafternoon. Hold SBP < 140 or creatinine > 1.8 ReliOn Lancets Micro-Thin 33G . as directed Dx E11.9 three t imes daily Mar, [place] 30G X 8 MM dx: e11.9 topically qid Mar, Spironolactone 100 MG 1 tablet Orally once daily Coreg 12.5 MG 1 tab Orally bid Next Appt Details Provider Name:Anachristiano Herronhay, 2020-03-16 03:15:00 PM, [address] [place] [address], [id number], Provider Name:Ana Paul 2020-03-30 01:30:00 PM, [address] [place] [address], [id number], Provider Name:Ana Paul 2020-04-20 01:45:00 PM, [address] [place] [address], [id number], Insurance Providers Payer Name Payer Address Payer Phone Insured Name Patient Relati onship to Insured Coverage Start Date Coverage End Date [facility] [address] [place] [address] PATRICIA PARKS
--- OUTSIDE RECORDS SUMMARY | 2020-04-09 22:04 | CCD ---
Author Author [facility] Organization [facility] Address Unknown Phone Unavailable Care Team Providers Care Basic Acoustic Analyst Name Role Phone Ana Paul Unavailable PROBLEMS Type Condition ICD9-CM Code [id number] Code Onset Dates Condition S tatus SNOMED Code Notes Problem Coronary artery disease invo lving [place] coronary artery of [place] heart without angina pectoris I25.10 Active 161337117974 7 Problem History of permanent cardiac pacemaker placement Z 95.0 Active 202472948 Problem Systolic CHF, chronic I50.22 Active 139799618 Problem Type 2 diabetes mellitus E11.9 Active 5237708 6 Problem Abnormal chest x-ray R93.8 Active 538661157 Problem Renovascular hypertension I15.0 Active 429940 005 Problem Ischemic cardiomyopathy I25.5 Active 15045385 4 Problem Hyperparathyroidism E21.3 Active 94730942 Problem Obesity E66.9 Active 244054240 Problem HECTOR (obstructive sleep apnea) G47.33 Active 78 495010 Problem Hypoparathyroidism E20.9 Active 67427752 Problem Abnormal pulse oximetry R79.81 Active 21589086 0 Problem Left renal atrophy N26.1 Active 700806036 Problem Hypertriglyceridemia E78.1 Active 024003707 Problem Chronic diastolic congestive heart failure I50.32 Active 009710502 Problem Dyslipidemia E78.5 Active 145940173 Problem Type 2 diabetes mellitus with diabetic chronic kidney disease E11.22 Active 723497488285 Problem Unspecified systolic (congestive) heart failure I5 0.20 Active 244528988 Problem Secondary hyperparathyroidism (of renal origin) N2 5.81 Active 09413394 Problem Type 2 diabetes mellitus with hyperglycemia E11.65 Active 55382231 Problem Tobacco dependence F17.200 Active 19725086 Problem Hypercalcemia E83.52 Active 56120233 Problem History of heart artery stent Z95.5 Active 38 0049096 Problem Thrombocytopenia D69.6 Active 741271604 Problem 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 Active 697145134 Problem 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 Active 35198 01 Problem Essential hypertension I10 Active 28421110 Problem Uncomplicated asthma, unspecified asthma severity J45.909 Active 981497471 Problem Coronary angioplasty status Z98.61 Active 4169 07760 Problem Mixed hyperlipidemia E78.2 Active 391476650 Problem Chronic obstructive pulmonary disease, unspecified COPD ty pe J44.9 Active 01479306 Problem History of implantable cardioverter-defibrillato r (ICD) placement Z95.810 Active 597895853 Problem Diastolic CHF with preserved left ventricular fu nction, NYHA class 2 I50.30 Active 188976414 Problem Bilateral carotid artery stenosis I65.23 Active 549270150760943 Problem CKD (chronic kidney disease) stage 4, GFR 15-29 ml/min N18.4 Active 680752639 ALLERGIES Allergen (clinical drug ingredient) Drug/Non Drug Allergy do cumented on EMR Reaction Allergy Type Onset Date Status losartan Losartan Potassium([facility] Code:[address]-27) throa t swelling Drug Allergy Active ENCOUNTERS from 1955 to 2020-03-09 Encounter Location Date Provider Diagnosis [address] [address] Feb, Ana Paul Chronic obstructive pulmonary disease, [...] Education Language: Question Answer Notes Languages spoken: Vietnamese Episcopal: Question Answer Notes Episcopal No latter-day beliefs that would impact health care. Sexual [...] Da te End Date Status Saline Nasal [place] 0.65 % 2 sprays in each nostril [...] Use for 999 days May, Active [place] 30G X 8 MM dx: e11.9 topically [...] Information RESULTS No Results REASON FOR VISIT incruse MEDICAL (GENERAL) HISTORY Type Description Date Medical History AICD 2009 Medical History Echocardiogram 2013 EF 40% Systolic CHF Medical History Ischemic Cardiomyopathy- follows with Dr Mariel Aldridge Medical History Cardiac Stent x 2 in 2009- [place] Medical History Cardiac stent x 2 at [facility] 03/2016 Medical History Tobacco abuse (quit [...] Medical History CMML diagnosed by BM biopsy, [facility], 03/2019 chemotherapy (Decitabine) Medical History leukemia Surgical History Pacemaker with Defibrillator-Medtronic 2 010 Surgical History 2 cardiac stents 2009 Surgical History 2 cardiac stents-[facility] 03/2016 Surgical History portacath placement 09/09/16 Surgical History Pacemaker with defib replacement 12/2017 Hospitalization History Stent Placement 4 2016 Hospitalization History Pacemaker w/ Defibrillator. 2009 Hospitalization History CHF exacerbation and hypertensive ur gency 06/2013 Hospitalization History blood transfusion at [facility] 04/2019 Goals Section No Information Health [...] E11.9 three t imes daily Mar, [place] 30G X 8 MM dx: e11.9 topically qid Mar, Spironolactone 100 MG 1 tablet Orally once daily Coreg 12.5 MG 1 tab Orally bid Next Appt Details Provider Name:Ana Paul, 2020-03-16 03:15:00 PM, [address] [place] [address], [id number], Provider Name:Ana Paul 2020-03-30 01:30:00 PM, [address] [place] [address], [id number], Provider Name:Ana Paul 2020-04-20 01:45:00 PM, [address] [place] [address], [id number], Insurance Providers Payer Name Payer Address Payer Phone Insured Name Patient Relati onship to Insured Coverage Start Date Coverage End Date [facility] [address] [place] [phone] PATRICIA PARKS
--- OUTSIDE RECORDS SUMMARY | 2020-04-09 22:05 | CCD | Summary of Care ---
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 (Primary Dx) 03/06/[address] BONE MARROW - Encounter TRANSPLANT 03/18/[address] [place] [address] Allergies Comments Active Allergy Reactions Severity Noted Date Losartan Anaphylaxis High 04/05/2019 documented as of this encounter (statuses as of 03/18/2020) Medications End Date Status Medication Sig Dispensed Refills Start Date 04/08/2020 Active amLODIPine Besylate 5 MG Take 1 tablet 30 tablet Oral Tablet (NORVASC) by mouth 0 daily 04/08/2020 Active Calcium Polycarbophil 625 Take 1 tablet 30 tablet MG Oral Tablet (FIBERCON) by mouth 0 daily 04/08/2020 Active Isosorbide Mononitrate ER Take 1 tablet 30 tablet 11 60 MG Oral Tablet by mouth 0 Extended Release 24 Hour daily (IMDUR) Active Spironolactone 100 MG Take 100 mg 0 Oral Tablet (ALDACTONE) by mouth daily Active Vitamin D3 25 MCG (1000 Take 1,000 0 UT) Oral Tablet Units by (CHOLECALCIFEROL) mouth daily Active Incruse Ellipta 62.5 Inhale 1 puff 0 MCG/INH Inhalation into the Aerosol Powder Breath lungs daily Activated (Umeclidinium [place]) Active Insulin Lispro (1 Unit Inject into 0 Dial) 100 UNIT/ML the skin Subcutaneous Solution Three times Pen-injector (HumaLOG daily per KwikPen) sliding scale. Max daily dose of 30 units. Active Pravastatin Sodium 40 MG Take 40 mg by 0 Oral Tablet (PRAVACHOL) mouth daily Active Polyvinyl Alcohol 1.4 % Place 1 drop 0 Ophthalmic Solution into both (LIQUIFILM TEARS) eyes daily 04/14/2020 Active Eltrombopag Olamine 25 MG Take 2 60 tablet 0 Oral Tablet (PROMACTA) tablets by 1 mouth daily Administer on an empty stomach, 1 hour before or 2 hours after a meal. 04/14/2020 Active Senna 8.6 MG Oral Tablet Take 2 60 tablet 0 0 tablets by 1 mouth nightly 04/14/2020 Active Acyclovir 200 MG Oral Take 2 180 capsule 0 02/17 Capsule (ZOVIRAX) capsules by 1 mouth Three times daily 04/15/2020 Active Fluconazole 200 MG Oral Take 1 tablet 30 tablet 0 Tablet (DIFLUCAN) by mouth 1 daily 04/15/2020 Active Lidocaine 5 % External Place 1 patch 30 patch 0 0 Patch (LIDODERM) onto the skin 1 daily 12 hours on 12 hours off 04/15/2020 Active Pantoprazole Sodium 40 MG Take 1 tablet 30 tablet 0 Oral Tablet Delayed by mouth 1 Release (PROTONIX) daily 03/26/2020 Active maalox/lidocaine/diphenhy Swish and 200 mL 0 drAMINE 1:1:1 SWISH & spit 5 mLs 1 SWAL oral suspension Four times daily before meals & bedtime as needed (mucositis) for up to 10 daysPharmacy compound: Maalox, lidocaine viscous 2 %, Benadryl 12.5 mg/5 mL 04/15/2020 Active Basaglar KwikPen 100 Inject 10 1 pen 0 03/16 UNIT/ML Subcutaneous Units into 1 Solution Pen-injector the skin (insulin glargine) nightly 03/25/2020 Active levoFLOXacin 500 MG Oral Take 1 tablet 7 tablet 0 Tablet (LEVAQUIN) by mouth 1 daily for 7 days 03/17/2021 Active Carvedilol 12.5 MG Oral Take 0.5 30 tablet 11 Tablet (COREG) tablets by 1 mouth Two Times Daily 03/18/2020 Discontinued (Reorder) Carvedilol 12.5 MG Oral Take 1 tablet 60 tablet 11 Tablet (COREG) by mouth Two 0 Times Daily 03/08/2020 Discontinued (Medication Rec oncilation) Furosemide 40 MG Oral Take 1 tablet 30 tablet 11 Tablet (LASIX) by mouth 0 daily 03/08/2020 Discontinued (Medication Rec oncilation) Insulin Glargine 100 Inject 24 1 vial 0 04/09 UNIT/ML Subcutaneous Units into 0 Solution (LANTUS) the skin nightly 03/08/2020 Discontinued (Medication Rec oncilation) Pravastatin Sodium 40 MG Take 1 tablet 30 tablet 11 Oral Tablet (PRAVACHOL) by mouth 0 every evening 03/08/2020 Discontinued (Medication Rec oncilation) Senna 8.6 MG Oral Tablet Take 2 120 each 0 0 tablets by 0 mouth nightly 03/08/2020 Discontinued (Medication Rec oncilation) Tiotropium [place] Inhale 2 1 Inhaler 11 02 Monohydrate 2.5 MCG/ACT puffs into 0 Inhalation Aerosol the lungs Solution (SPIRIVA daily RESPIMAT) 03/08/2020 Discontinued (Medication Rec oncilation) insulin lispro 100 Patient 10 mL 12 02 UNIT/ML SC injection Instructions: 0 MEDIUM DOSE EATING Please refer INSULIN patients to Insulin Sliding Scale Instructions in the Discharge Instructions. 03/18/2020 Discontinued (Stop Taking at Discharge) Furosemide 40 MG Oral Take 40 mg by 0 Tablet (LASIX) mouth Two Times Daily 03/16/2020 Discontinued (Reorder) Basaglar KwikPen 100 Inject 30 0 UNIT/ML Subcutaneous Units into Solution Pen-injector the skin (insulin glargine) nightly 03/15/2020 Discontinued (Stop Taking at Discharge) Acyclovir 400 MG Oral Take 400 mg 0 Tablet (ZOVIRAX) by mouth Two Times Daily 03/15/2020 Discontinued (Stop Taking at Discharge) Inqovi 35-100 MG Oral Take 1 tablet 0 Tablet by mouth (Decitabine-Cedazuridine) daily for 5 days every 28 day cycle. 03/15/2020 Discontinued (Stop Taking at Discharge) Acetaminophen 500 MG Oral Take 1,000 mg 0 Tablet (TYLENOL) by mouth every 6 (six) hours as needed for Pain 03/16/2020 Discontinued (Stop Taking at Discharge) Tiotropium [place] Inhale 2 0 Monohydrate 2.5 MCG/ACT puffs into 1 Inhalation Aerosol the lungs Solution (SPIRIVA daily RESPIMAT) 03/16/2020 Discontinued maalox/lidocaine/diphenhy Swish and 120 mL 0 drAMINE 1:1:1 SWISH & spit 5 mLs 1 SWAL oral suspension Four times daily before meals & bedtime as needed (mucositis) for up to 10 daysPharmacy compound: Maalox, lidocaine viscous 2 %, Benadryl 12.5 mg/5 mL documented as of this encounter (statuses as of 03/18/2020) Active Problems Problem Noted Date Chronic myelomonocytic leukemia not having achieved r emission 03/06/2020 Chronic myelomonocytic leukemia not hav ing achieved remission documented as of this encounter (statuses as of 03/18/2020) Social History Date Tobacco Use Types Packs/Day Years Used Quit: 2019 Former Smoker Cigarettes Smokeless Tobacco: Never Used Tobacco Cessation: Counseling Given: No Drinks/Week oz/Week Comments Alcohol Use Not Currently Social Isolation Answer Date Recorded In a typical week, how many times do you talk on More than three times a week 03/06/2020 the phone with family, friends, or neig hbors? How often do you get together with friends or Once a week 03/06/2020 relatives? How often do you attend scientologist or mandaen Never 03/06/2020 services? Do you belong to any clubs or organizations such No 03/06/2020 as scientologist groups, unions, fraternal or athletic groups, or school groups? How often do you attend meetings of the clubs or Never 03/06/2020 organizations you belong to? Are you now , , , , 03/06/2020 never or living with a partner? Physical Activity Answer Date Recorded On average, how many days per week do you engage 0 days 03/06/2020 in moderate to strenuous exercise (like walking fast, running, jogging, dancing, swimmi ng, biking, or other activities that cause a light or heavy sweat)? On average, how many minutes do you engage in 0 min 03/06/2020 exercise at this level? Stress Answer Date Recorded Do you feel stress - tense, restless, nervous, or Not at a ll 03/06/2020 anxious, or unable to sleep at night be cause your mind is troubled all the time - these d ays? Financial Resource Strain Answer Date Recorde d How hard is it for you to pay for the very basics Not very hard 03/06/2020 like food, housing, medical care, and h eating? Intimate Partner Violence Answer Date Recorde d Within the last year, have you been afraid of your No 03/06/2020 partner or ex-partner? Within the last year, have you been humiliated or No 03/06/2020 emotionally abused in other ways by you r partner or ex-partner? Within the last year, have you been kicked, hit, No 03/06/2020 slapped, or otherwise physically hurt b y your partner or ex-partner? Within the last year, have you been raped or No 03/06/2020 forced to have any kind of sexual activ ity by your partner or ex-partner? Food Insecurity Answer Date Recorded Within the past 12 months, you worried that your Never aquilino e 03/06/2020 food would run out before you got money to buy more. Within the past 12 months, the food you bought Never true 03/06/2020 just didn't last and you didn't have mo mona to get more. Transportation Needs Answer Date Recorded In the past 12 months, has lack of transportation No 03/06/2020 kept you from medical appointments or f rom getting medications? In the past 12 months, has lack of transportation No 03/06/2020 kept you from meetings, work, or gettin g things needed for daily living? Sex Assigned at Date Recorded Not on file Date Recorded COVID-19 Exposure Response 03/06/2020 3:44 PM EST In the last month, have you been in contact with No / Unsure someone who was confirmed or suspected to have Coronavirus / COVID-19? documented as of this encounter Last Filed Vital Signs Reading Time Taken Comments Vital Sign 152/58 03/18/2020 4:00 PM EST Blood Pressure 64 03/18/2020 4:00 PM EST Pulse 36.8 C (98.2 F) 03/18/2020 4:00 PM EST Temperature 16 03/18/2020 4:00 PM EST Respiratory Rate 98% 03/18/2020 4:00 PM EST Oxygen Saturation - - Inhaled Oxygen Concentration 87.8 kg (193 lb 9 oz) 03/13/2020 1:00 AM EST Weight 163 cm (5' 4.17") 03/10/2020 10:59 AM EST Height 33.05 03/10/2020 10:59 AM EST Body Mass Index documented in this encounter Discharge Summaries * Hayde Mcdowell - 03/18/2020 11:50 AM EST Discharge Summary Patient Patricia Cotton Admit Date 03/06/2020 1955 Discharge Date 03/18/2020 PCP Ana Shin MD Discharge Physician Lisa Palumbo MD Primary Discharge Diagnosis: 1) CMML-1, 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 Juarez, H&P: "Ms. Patricia Cotton is a 65 y.o. female with a past medical history of coronary artery disease status post 2 stents in 2009 to in 2017, hypertension, type 2 diabetes on insulin, hyperlipidemia, COPD, CKD stage IV, atrophic left kidney, diverticulosis, pancytopenia, presented to [facility] for complaint of weakness. Patient was scheduled to receive 1 unit RBC and 1 unit platelet today but patient was unable to make to outpatient because of weakness. Patient has diagnosis of CMML 1, was started on Decitabine- Cedazuridine. Patient follows Dr. Carter in [place] Bone marrow 03/2019 , core biopsy, aspirate, clot, and peripheral blood: Myelodysplastic/myeloproliferative neoplasm with mildly increased bone marrow bl asts (approximately 5% by CD34 immunohistochemical staining), favor chronic myel omonocytic leukemia-1 (CMML-1). The peripheral blood shows leukocytosis with abs olute neutrophilia (11.8 K/uL), absolute monocytosis (3.1 K/uL), frequent dyspla stic granulocytes and nucleated red blood cells, and rare blasts. The marrow is markedly hypercellular with trilineage dysplasia. 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 These findings support the CMML-1. PDGFRA, PDGFRB, FGFR1, JA K2 mutations negative. Myeloid gene panel Myeloid Markers (expressed as % of LYM PHOCYTE gate): CD11b = 48, CD13 = 71, CD14 = 14, CD15 = 43, CD33 = 95, CD41 = 36 , CD64 = 27, CD71 = 37, CD117 = 44. Patient reports that her black stool correspond to the initiation of chemothera py. Patient denies history of ulcers, GERD. Patient has not noted hematochezia , gross blood in stool. Whenever she initiates chemotherapy she has diarrhea on day 1 and followed by constipation. Patient denies fevers chills nausea vomiti ng headache or SOB. Patient reports feeling intolerant of cold and sometimes he at infrequently. Her last colonoscopy was in February 2019 where 2 polyps were r emoved and were negative for malignancy. At the outside hospital vital signs st able, FOBT positive, chest x-ray negative for acute disease, port in place and p acemaker in place. Elevated creatinine 1.62, GFR 33, albumin 2.6, calcium 8.5, WBC 2.0, hemoglobin 5.5, platelets 5, ANC 4%, promyelocytes 1%, blasts 14%, smud ge cell+2. Patient received 1 unit RBC and 1 unit platelets at outside hospital prior to s. Patient has been requiring frequent transfusions, with increased blasts percent, concern for transformation to AML. Patient being admitted for further hematolo gical management." 1) Pancytopenia and concern for AML transformation While admitted, Ms. Cotton received transfusional support throughout admission fo r HgB <7.0 and platelets <10K. Of note, the patient had one episode of febrile non-hemolytic transfusion reaction on 03/07/20 with symptoms of rigors, fever, and tachycardia. She was evaluated by clinical pathology at the time of symptoms. Symptoms resolved with Tylenol. She had no further adverse reactions during admission to blood products. Despite transfusions of blood products, the patient's CBC did not significantly respond. She was started on Promacta 50 mg. She was tested for HLA-antibodies which were found to be positive. She was given HLA-matched platelets for the re mainder of her hospitalization. For evaluation of her CMML-1 and concern for AML transformation, the patient un derwent a bone marrow biopsy on 02/2020. The results were not consistent with tra nsformation to AML, however showed bone marrow fibrosis/hypoplasia, which likely contributed to the patient's severe and persistent pancytopenia. Patient has pr ogressive CMML-1, which was seemingly worsened leading up to this admission afte r she was switched to oral decitabine-cedazurdine. Patient was started on IV Aza citidine on 03/10/20, however chemotherapy was stopped due to the patient's persi stent pancytopenia and upper GI bleed, requiring acute intervention (received 2 doses total). Pt was discharged with plan to re-start chemotherapy with primary oncologist Dr. Carter in [place]. On day of discharge, the patient received 1 additional unit of RBCs, H/H was 8. 3/23.8, platelets were low at 10. Patient to receive one additional unit of HLA matched platelets on day of discharge. She has close follow-up with her primary oncologist scheduled for 03/20/20. 2) Melena, upper GI bleed During admission, Ms. Cotton complained of dark black/tarry stools and diarrhea. FOBT lower GI tract was negative on 03/07, FOBT upper GI tract positive on 03/11. Tagged RBC scan was positive for active bleeding, likely in the small bowel. GI was consulted and the patient went for diagnostic and therapeutic endoscopy on , which showed an angioectasia with bleeding in the second part of the duoden um and hemostasis was achieved with clips. On day of discharge, the patient reported an improvement in both the frequency and color of her BMs. She reported <2 BMs daily and that her stools were gradually lightening in color. 3) Neutropenic Fever Ms. Cotton was severely neutropenic (ANC 0.01, WBC 0.4) on admission. Neutropenic precautions started, empiric viral and fungal coverage with Acyclovir 400 mg tid and Fluconazole 200 mg. She developed fever with Tmax of 102.4 on 03/10 and was started on Zosyn and Vancomycin. Initial blood cultures were negative (no growth 5 days on the day of discharge). Vancomycin d/c after MRSA culture negative. S econd fever spike on 03/16 with Tmax of 101.1, repeat blood and urine cultures o btained. Patient was treated with a total of 6 days of Zosyn and was switched to Levaquin on 03/16. She had received 2 days of Levaquin on day of discharge and w as afebrile with no fevers overnight. Repeat blood cultures from 03/18 showed no growth 1 day on discharge. Patient will be discharged with an additional 7 days of Levaquin, with fluconazole and acyclovir for empiric anti-microbial coverage. 4) Management of Co-Morbid Conditions Patient was maintained on home medications for her co-morbid medical conditions including CAD, HTN, COPD, and Type II DM with some medication changes. For her T2DM, home lantus was held during admission due to BGs in the low 80s-90s and th e patient was continued on home sliding scale insulin. The patient was re-starte d on lantus 10 u after several days of admission as BG levels were between 150-2 50. Patient was persistently bradycardic throughout admission with HR baseline arou nd 50. Dose of Co-reg was decreased to 6.25 mg bid. Home Lasix 40 mg bid was discontinued given the patient's CKD stage IV. The pat ient had bilateral LE edema, largely unchanged throughout the admission. Lasix w as re-started at 40 mg daily, which caused a significant elevation in the patien t's baseline creatinine and thus was discontinued. Consults: Gastroenterology, Physical Therapy Relevant studies done during this hospitalization: 1) Bone Marrow Biopsy, Hematopathology (03/07/2020) A: Bone Marrow Biopsy, RPIC; Received 1 biopsy and 10 touch preps B: Blood; Received 4 PB smears C: Core Biopsy, Flow Cytometry; Received bone marrow core biopsy in [facility] Clinical History History of CMML, concern for conversion to AML. Pancytopenia, increasing peripheral blast count. TEST REQUESTED/PERFORMED: Bone marrow and flow cytometry analysis Diagnosis Markedly hypocellular bone marrow with marked pancytopenia with 9% circulating blasts. There is no evidence of increased blasts in the bone marrow. There is no evidence of acute leukemia, but residual disease cannot be completely ruled out. 2) CT Abdomen, Pelvis (03/08/20) IMPRESSION: 1. There is enlargement of the right renal pelvis with inflammatory change and mild right perinephric stranding. No stone. This may possibly be secondary to infection. Suggest clinical correlation. 2. The left kidney is atrophic. 3. Extensive diverticulosis throughout the colon. 4. There is extensive atherosclerotic calcification. 3) Nuclear Med Tagged RBC scan (03/12/20): FINDINGS: Normal physiologic activity is seen within blood pool, liver, spleen. Trace active bleeding is noted within the mid abdomen and left upper quadrant which appears to cross midline. No dist inct activity is seen within the lower GI tract or rectum at the time of the jim dy. These findings could be consistent with a small bowel bleed, however, exact localization is limited. IMPRESSION: Active GI bleed which may be of small bowel origin, however, localiz ation is limited on this study. 4) Small Bowel Enteroscopy (03/14/20): Impression: - Normal esophagus. - Normal stomach. - The examined portion of the jejunum was normal. - A single bleeding angioectasia in the duodenum. Clips (MR conditional) were p laced. - No specimens collected. 5) Chest X-ray (03/17/20): FINDINGS: Tubes, catheters and devices: An infusion port is present. A pacemaker device is present, and its leads are in appropriate position. Lungs: Minimal airspace disease at the right lung base. Pleural spaces: Unremarkable. No pleural effusion. No pneumothorax. Heart/Mediastinum: The heart is enlarged. Bones/joints: Unremarkable. IMPRESSION: 1. Minimal airspace disease at the right lung base. 2. Followup radiographs recommended after appropriate therapy. Laboratory Data (Most Recent in Past 3 Days) Lab 03/17/20 1603 03/18/20 0112 03/18/20 0901 WBC -- 0.5* 0.5* HGB -- 6.7* 8.3* MCV -- 85.0 85.3 PLT 16* 12* 10* Invalid input(s): BILDIR Lab 03/16/20 0025 03/17/20 0108 03/18/20 0112 NA 138 136 138 K 4.1 3.8 3.6 CL 108* 105 108* BICARBONATE 23 22 22 GLUCOSE 151* 105 117 BUN 33* 28* 26* CREATININE 1.52* 1.44* 1.45* Discharge Medications Discharge Medications: Medication List Discharge Medications Sig/Dispense acyclovir 200 MG capsule Commonly known as: ZOVIRAX Si mg, Oral, Three Times Daily Standard Dispense: 180 capsule amlodipine 5 MG tablet Commonly known as: NORVASC Si mg, Oral, Daily Standard Dispense: 30 tablet Basaglar KwikPen 100 UNIT/ML pen Generic drug: insulin glargine Si Units, Subcutaneous, Nightly Dispense: 1 pen carvedilol 12.5 MG tablet Commonly known as: COREG Si.25 mg, Oral, 2 Times Daily Dispense: 30 tablet eltrombopag 25 MG tablet Commonly known as: PROMACTA Si mg, Oral, Daily Standard, Administer on an empty stomach, 1 hour befor e or 2 hours after a meal. Dispense: 60 tablet fluconazole 200 MG tablet Commonly known as: DIFLUCAN Si mg, Oral, Daily Standard Dispense: 30 tablet HumaLOG KwikPen 100 UNIT/ML Sopn pen Generic drug: insulin lispro (1 Unit Dial) Sig: Subcutaneous, Three Times Daily Standard, per sliding scale. Max daily do se of 30 units. Incruse Ellipta 62.5 MCG/INH Aepb Generic drug: Umeclidinium [place] Si puff, Inhalation, Daily Standard isosorbide mononitrate 60 MG 24 hr tablet Commonly known as: IMDUR Si mg, Oral, Daily Standard Dispense: 30 tablet levoFLOXacin 500 MG tablet Commonly known as: LEVAQUIN Si mg, Oral, Daily Standard Dispense: 7 tablet lidocaine 5 % patch Commonly known as: LIDODERM Si patch, Transdermal, Daily Standard, 12 hours on 12 hours off Dispense: 30 patch maalox/lidocaine/diphenhydrAMINE 1:1:1 oral suspension Commonly known as: RADIATION MIXTURE Si mLs, Swish & Spit, Before Meals & Bedtime-PRN, Pharmacy compound: Maalox, lidocaine viscous 2 %, Benadryl 12.5 mg/5 mL Dispense: 200 mL pantoprazole 40 MG tablet Commonly known as: PROTONIX Si mg, Oral, Daily Standard Dispense: 30 tablet polycarbophil 625 MG tablet Commonly known as: FIBERCON Si mg, Oral, Daily Standard Dispense: 30 tablet polyvinyl alcohol 1.4 % ophthalmic solution Commonly known as: LIQUIFILM TEARS Si drop, Both Eyes, Daily Standard pravastatin 40 MG tablet Commonly known as: PRAVACHOL Si mg, Oral, Daily Standard senna 8.6 MG tablet Si tablets, Oral, Nightly Dispense: 60 tablet spironolactone 100 MG tablet Commonly known as: ALDACTONE Si mg, Oral, Daily Standard vitamin D3 25 MCG (1000 UT) tablet Commonly known as: CHOLECALCIFEROL Si,000 Units, Oral, Daily Standard Allergies:Losartan Medications Discontinued: Lasix 40 mg bid, Inqovi Medications Added or Modified: Modified: Lantus 10u, Carvediol 6.25 mg Medications, including new medication and medication changes, were discussed wit h patient and/or family prior to discharge. Follow Up Appointments & Patient Instructions No future appointments. Discharge planning was discussed with the patient and/or family. Please see disc harge instructions provided to the patient OR After-Visit summary on file for ad ditional information. Discharge Recommendations & Disposition Communication/Instructions to the PCP: Yes Pending labs/ tests done in hospital and still need to be followed up after disc harge: Blood Culture Follow-up with PCP: 1 week Referrals: None Disposition: The patient was hemodynamically stable at the time of discharge. Discharge to: [facility] Diet: regular diet Activity: activity as tolerated Code Status: DNR/DNI Condition Upon Discharge: Cognitive: Alert and oriented Functional: Independent Social Supports: Family in home Patient was seen and discussed on day of discharge with the attending physician, Dr. Lisa Palumbo M.D., who agrees with the assessment and plan for discharge. Signature:Hayde Mcdowell AI Date/Time: March 18, 2020 11:50 AM Associated attestation - Lisa Palumbo MD - 03/18/2020 1:44 PM EST I have reviewed the notes, assessments, and/or procedures performed by Hayde chino I concur with her/his documentation of Patricia Cotton. Patient seen examined a nd discussed. LAbs reviewed. She is clinically stable for discharge documented in this encounter Progress Notes * Klaudia Goins RN - 03/18/2020 4:15 PM EST Pt. Received 1 unit HLA platelets per MD orders. Okay to discharge patient witho ut platelet count per Dr. Palumbo. Pt. Has f/u appt with oncologist in [place] 03/20/20. Discharge paperwork, medication regimen, treatment side effects and man agement at home, and when to call provider all discussed in detail with patient, patient verbalized understanding. Vitals taken prior to discharge and stable. R CW SL port flushed, heparinized and deaccessed. Pt. Taken to hospital entrance v ia wheelchair and assisted to vehicle where family will drive her home. * Klaudia Goins RN - 03/17/2020 2:26 PM EST Pt. With a platelet count of 10. Per Dr. Palumbo she would like the patient to r eceive 1 unit of HLA matched platelets today. Pt. Premedicated per MD orders, an d platelets infusing per policy, no s/s of transfusion reaction, VSS. * Lobito Mirza - 03/17/2020 11:15 AM EST Spiritual Care Progress Note Vice President Of Contracts: Rev. Lobito Mirza MAlonzo.; [facility] Patient Name: Patricia Cotton Age: 65 y.o. Sex: female Room/Bed: 58894/1 Maya Affiliation/Tradition: Spiritual Admit Date: 03/06/2020 Referrals: Referral From: Nurse Referral To: Vice President Of Contracts Contact Information: [id number] Spiritual Care Assessment Spouse/Significant Other Name/Relationship: None Assessed Need for Visit: Adjustment/Coping Issues, Change in Health Status, Spi ritual Companionship Patient Description: Calm, Accepting, At Peace, Hope-filled Spiritual/Cultural/Social Issues Assessment: I visited Patricia when she was lying in bed.[facility] was a referral to Spiritual Care. Patricia said she was resting because there is nothing else to do while she is here. Patricia is looking forward to going home to be with her after been here a number of days. She said she es in [place] and it takes about 11/[address] there. Patricia notes that he r is longing to see her because it is only the two of them. Her religiou s practice is a one and one relationship with God. Spiritual Care Intervention: Affirmation, Identify/Encourage Coping, Prayer, Pr ovide [facility], Supportive Listening Spiritual Outcomes - Patient: Expressed feelings, [place] comforted, accompanied, Processed life story Spiritual Outcomes - Family: Not available for assessment Spiritual Care Plan Goals of Care: Identify sources of hope and support these hopes. Outcome: gradually improving Spiritual Care Follow Up Patient Follow-up Plan: Discharged/Discharge pending, Visit if requested by arina ent/family Family Follow-up Plan: No contact made at this time * Maryjane Baer DO - 03/17/2020 10:07 AM EST Hematology Oncology Inpatient Progress Note Subjective Patient seen and examined at bedside. Patient spiked a fever overnight for which cultures were sent. She was asymptomatic, reports feeling well this morning. Review of Systems Constitutional: Negative for chills, fatigue and fever. HENT: Negative for trouble swallowing and voice change. Respiratory: Negative for cough and shortness of breath. Cardiovascular: Negative for chest pain and palpitations. Gastrointestinal: Negative for abdominal distention, abdominal pain, blood in st ool, constipation, diarrhea, nausea and vomiting. Genitourinary: Negative for difficulty urinating, dysuria and hematuria. Neurological: Negative for dizziness and headaches. Psychiatric/Behavioral: Negative for agitation, behavioral problems and confusio n. Objective Temp: [36.7 C (98.1 F)-38.4 C (101.1 F)] 36.7 C (98.1 F ) Pulse: [53-68] 54 Resp: [16-18] 18 BP: (128-138)/(45-62) 134/62 SpO2: [97 %-100 %] 100 % O2 Therapy: Room air Intake/Output Summary (Last 24 hours) at 03/17/2020 1007 Last data filed at 03/17/2020 0900 Gross per 24 hour Intake 1541.07 ml Output 50 ml Net 1491.07 ml I/O last 3 completed shifts: In: 1307.7 [P.O.:1060; IV Piggyback:247.7] Out: 50 [Urine:50] I/O this shift: In: 283.3 [P.O.:120; IV Piggyback:163.3] Out: - Physical Exam Constitutional: She is oriented to person, place, and time. HENT: Head: Normocephalic and atraumatic. Mouth/Throat: Mucous membranes are moist. Eyes: Pupils are equal, round, and reactive to light. Conjunctivae are normal. Cardiovascular: Normal rate and regular rhythm. No murmur heard. Pulmonary/Chest: Effort normal and breath sounds normal. No respiratory distress . She has no wheezes. She has no rales. Abdominal: Soft. Normal appearance. She exhibits no distension. There is no abdo trini tenderness. Neurological: She is alert and oriented to person, place, and time. No cranial n erve deficit. Skin: Skin is warm and dry. Psychiatric: Her behavior is normal. Mood normal. Nursing note and vitals reviewed. Total Days of Anti-infective Therapy: 11 Anti-infectives (From admission, onward) Start Dose/Rate Route Frequency Ordered Stop 03/17/20 0915 levoFLOXacin (LEVAQUIN) tablet 500 mg Note to Pharmacy: Per renal dosing policy 500 mg Oral Every 48 hours 03/17/20 0901 03/23/20 0914 03/16/20 0000 Fluconazole 200 MG Oral Tablet (DIFLUCAN) 200 mg Oral Daily Standard 03/15/20 1425 04/15/20 2359 03/15/20 0000 Acyclovir 200 MG Oral Capsule (ZOVIRAX) 400 mg Oral Three Times Daily Standard 03/15/20 1425 04/14/20 2359 03/07/20 0900 acyclovir (ZOVIRAX) capsule 400 mg 400 mg Oral Three Times Daily Standard 03/06/20 2348 03/25/20 0808 03/07/20 0900 fluconazole (DIFLUCAN) tablet 200 mg 200 mg Oral Daily Standard 03/06/20 2348 03/25/20 0808 Laboratory Data (Most Recent in Past 3 Days) Lab 03/15/20 1148 03/16/20 0025 03/17/20 0108 WBC 0.5* 0.5* 0.6* HGB 8.3* 7.3* 6.8* HCT 23.6* 20.8* 19.6* MCV 85.7 84.9 85.9 PLT 29* 18* 10* Lab 03/15/20 0016 03/16/20 0025 03/17/20 0108 NA 138 138 136 K 4.0 4.1 3.8 CL 106 108* 105 BICARBONATE 23 23 22 GLUCOSE 249* 151* 105 BUN 41* 33* 28* CREATININE 1.55* 1.52* 1.44* Lab 03/15/20 0016 03/16/20 0025 03/17/20 0108 CALCIUM 8.1* 8.5* 8.4* MG 2.0 2.0 1.9 PHOS 3.8 3.2 2.9 Lab 03/15/20 1148 03/16/20 0025 03/17/20 0108 NEUTOPHILPCT 5 1 2 LYMPHOPCT 77 86 84 MONOPCT -- -- 1 EOSPCT 3 1 -- Invalid input(s): BILDIR Blood cultures 03/17/20: no growth to date Chest xray 03/17/20: IMPRESSION: 1. Minimal airspace disease at the right lung base. 2. Followup radiographs recommended after appropriate therapy. Results for PATRICIA COTTON V ( ) as of 03/17/2020 10:07 Ref. Range 03/17/2020 01:08 Total Protein UA Latest Ref Range: Negative mg/dL Negative Bacteria, UA Latest Ref Range: None /HPF 1+ (A) Bilirubin Latest Ref Range: Negative Negative Clarity Unknown Clear Color Unknown Yellow Glucose UA Latest Ref Range: Negative mg/dL Negative Hemoglobin, Urine Latest Ref Range: Negative 1+ (A) Ketone Urine Latest Ref Range: Negative mg/dL Negative Leukocyte Esterase Latest Ref Range: Negative Raeann/uL Negative Mucus, UA Latest Ref Range: None /LPF Trace (A) Nitrite Latest Ref Range: Negative Negative PH Urine Latest Ref Range: 5.0 - 8.0 5.0 RBC, UA Latest Ref Range: 0 - 3 /HPF <1 Specific [place] Latest Ref Range: 1.003 - 1.030 1.012 Squam Epithel, UA Latest Ref Range: None /HPF 8 (A) WBC, UA Latest Ref Range: 0 - 5 /HPF 0 Assessment/Plan Ms. Patricia Cototn is a 65 y.o. female with past medical history of CAD, hypertensi on, type II diabetes mellitus, hypertension, CKD stage IV, CMML (currently on tr eatment with decitabine-cedazuridine with Dr. Carter in [place]), who presente d an outside hospital with fatigue, found to have worsening pancytopenia and tra [facility] for higher level of care. #CMML-1: -bone marrow not consistent with transformation to AML. Patient has progressive CMML, seemingly worsening after switching to oral decitabine-cedazuridine. Had s tarted treatment with IV azacitadine inpatient, however hospital course complica daron by GI bleed and thus this was discontinued. -have sent for PDGF receptor rearrangement on peripheral blood to determine if c andidate for Gleevec. -continued transfusional support (hemoglobin 6.8 today, will transfu se 1 uPRBC), platelet count 10,000 and will receive HLA-matched platelets #Neutropenic fever: -spiked fever to 38.4 overnight, cultures sent. Was given a dose of vancom ycin and zosyn, stopped this morning and placed back on prophylactic antimicrobi als with levaquin, acyclovir, fluconazole. Will await culture results. #Pancytopenia: -transfusional support as above -started promacta 03/09/20 #CAD: -will continue home dose of coreg, Imdur #Hypertension: -will continue home dose of spironolactone #CKD: -creatinine stable #COPD: -no acute exacerbation; continue tiotropium, prn albuterol #type II Diabetes mellitus: -continue lantus, SSI, diabetic diet DVT Prophylaxis: held due to thrombocytopenia GI Prophylaxis: PPi Reason: Risk for stress ulcers Functional Status: normal Code Status: DNR/DNI Disposition: Plan discharge to: Home Estimated Discharge Date: to be determined The patient was discussed with Lisa Palumbo MD who agrees with the assessme nt and plan as noted above. Signature: Maryjane Baer DO Date/Time: March 17, 2020 10:07 AM Associated attestation - Lisa Palumbo MD - 03/17/2020 10:18 AM EST I have reviewed the notes, assessments, and/or procedures performed by Dr Baer , I concur with her/his documentation of Patricia Cotton. Patient seen examined and discussed. LAbs reviewed. Transfusion today in anticipation of possible d/c kaia melendez. 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 No specific c/o. She is eager to d/c home, and states that she may be able to go on Saturday 03/18 Pain: Patient currently complains of pain. Location: back . Patient describes pain as Nonspecific. Verbal Scale: Patient reports a pain level of 2 out of 10. Pain Medication Today: yes. OBJECTIVE General Observation: Pt in bed. Awake and alert. No bed alarm. Skin Integrity Screen: scattered bruising noted at exposed areas of bilat UE and bilat orbital region Vital Signs: Stable. Functional Status: Transfers: sit to/from stand independently. Performed 5 reps of sit-stand during this session. Bed Mobility: supine to sitting independently. Locomotion/Gait/Ambulation: Ambulated 130 feet with rolling walker and standby assist for safety in hallway environment. No loss of balance noted. Stairs: Not assessed. No stairs at home - has elevator Outcome Measures: [facility] AM-PAC "6 Clicks" Basic Mobility Inpatient Short Form: Turning over in bed: Unable to perform (1) Sitting down on and standing up from a chair with arms: No difficulty (4) Moving from lying on back to sitting on the side of the bed: No difficulty (4) Moving to and from a bed to a chair (including a wheelchair): No help (4) Walking in hospital room: A little help (3) Climbing 3-5 steps with a railing: A little help (3) Raw Score 19 /24. Interventions: Gait Training: as described above. Instructed pt to continue using rolling walker to maximize safety and stability. Cues provided to move especially cautious when turning / changing directions. Cues provided to rest as needed (pt did not require any rest break during this ambulation trial). Gait belt used for safety. Therapeutic Exercise: Instructed pt in bilat LE exercises for strengthening: - repeated sit-stand from edge of bed - shallow squats x 10 reps (used rolling walker for support) - heel raise x 10 reps (used rolling walker for support) - hip flexion x 10 reps bilat (used rolling walker for support) Therapist provided verbal cues / demonstration for these exercises. Education: Mode of education provided: Explanation. Audience: Patient. Education Provided: Importance of continuing to ambulate with staff at least 3x/day, as tolerated, to prepare for home d/c. . Response: Applied knowledge. Verbalized understanding. ASSESSMENT Response to Visit: Pt continues to mobilize relatively well using rolling walker, and she has this device at home. She is cleared for d/c home from a physical therapy standpoint, but we will continue to stay involved in her care during this hospitalization. Pt sitting on edge of bed after this treatment per her request. Call dean, phone, and tray table are within reach. Pain: Yes, pain is unchanged from start of today's treatment. PLAN Treatment Frequency, Duration and Interventions: Restorative Physical Therapy is recommended for 5x per week for 3 weeks Treatment is to include: Gait Training. Neuromuscular Re-education. Therapeutic Activity. Therapeutic Exercise. Self Care/Home Management. Recommended Physical Therapy Follow Up: Upon acute care discharge, the following is currently recommended: Home Physical Therapy. to assist pt as needed. Equipment Provided: None issued this visit. Visit Number: Today's visit is number 8 Program: Oncology (Therapist may be reached on [facility] [employer]) SESSION: Duration: 23 CHARGES: 31309 - CHARGE - PT GAIT TRNG - 15 MIN 1 Units [id number] - CHARGE - PT THER EX - 15 MIN 1 Units - CANCER VISIT 1 Units - ORDER - Physical Therapy Treatment 1 Units Total treatment minutes: 23.00 Minutes Electronically Signed by: Gucci Alvarado PT, DPT, 03/16/2020 2:55:26 PM * Sanam Sam RN - 03/16/2020 2:07 PM EST Per PT notes pt would benefit from home PT, referrals made to [facility], will see who can accept pt. Possible dc over the weekend. * Hayde Mcdowell - 03/16/2020 8:24 AM EST Hematology Oncology Inpatient Progress Note Subjective Patient was seen and examined at the bedside this morning. There were no acute e vents overnight. Pt denies fever, chills, or diaphoresis overnight. She had mini mal subjective complaints on exam, aside from fatigue. She states that her bowel movements have been decreasing significantly in frequency. She denies diarrhea. She states that her stools are still dark in color. States that her appetite is good and she is eating and drinking well. She feels like her energy levels are improving overall and is willing to work with PT to get stronger before discharg e. Review of Systems Constitutional: Positive for fatigue. Negative for chills, diaphoresis and fever . HENT: Positive for postnasal drip. Negative for congestion, mouth sores and sore throat. Respiratory: Negative for cough, shortness of breath and wheezing. Gastrointestinal: Negative for abdominal pain, constipation, diarrhea, nausea an d vomiting. Genitourinary: Negative for dysuria, frequency and urgency. Musculoskeletal: Positive for back pain. Negative for arthralgias and myalgias. Neurological: Negative for dizziness, light-headedness and headaches. Hematological: Bruises/bleeds easily. Psychiatric/Behavioral: Negative for agitation. The patient is not nervous/anxio us. Objective Temp: [36.4 C (97.6 F)-36.8 C (98.2 F)] 36.8 C (98.2 F) Pulse: [57-65] 59 Resp: [16-18] 18 BP: (120-141)/(54-70) 134/70 SpO2: [97 %-100 %] 99 % O2 Therapy: Room air Intake/Output Summary (Last 24 hours) at 03/16/2020 0824 Last data filed at 03/16/2020 0608 Gross per 24 hour Intake 2004.63 ml Output 1125 ml Net 879.63 ml I/O last 3 completed shifts: In: 2104.7 [P.O.:1117; I.V.:797.6; IV Piggyback:190] Out: 1375 [Urine:950; Other:425] No intake/output data recorded. Last bowel movement: 03/14/2020 Physical Exam Constitutional: She is oriented to person, place, and time. She does not appear ill. No distress. HENT: Head: Normocephalic and atraumatic. Mouth/Throat: Mucous membranes are moist. Cardiovascular: Normal rate and regular rhythm. Exam reveals no gallop and no fr iction rub. No murmur heard. Pulmonary/Chest: She has decreased breath sounds in the right upper field and th e left upper field. She has no wheezes. She has no rhonchi. She has no rales. Abdominal: Soft. She exhibits no distension. There is no abdominal tenderness. T here is no rebound and no guarding. Musculoskeletal: Right lower le+ Pitting Edema present. Left lower le+ Pitting Edema present. Neurological: She is alert and oriented to person, place, and time. She displays no weakness. Skin: Skin is warm and dry. Bruising, ecchymosis and petechiae noted. There is p allor. Diffuse bruising and ecchymoses over the bilateral upper and lower extremities, consistent with yesterday's exam. Psychiatric: Her behavior is normal. Mood, judgment and thought content normal. Total Days of Anti-infective Therapy: 10 Anti-infectives (From admission, onward) Start Dose/Rate Route Frequency Ordered Stop 03/16/20 0000 Fluconazole 200 MG Oral Tablet (DIFLUCAN) 200 mg Oral Daily Standard 03/15/20 1425 04/15/20 2359 03/15/20 0000 Acyclovir 200 MG Oral Capsule (ZOVIRAX) 400 mg Oral Three Times Daily Standard 03/15/20 1425 04/14/20 2359 03/11/20 0130 piperacillin-tazobactam (ZOSYN) IVPB 3.375 g (premix) 3.375 g 100 mL/hr over 0.5 Hours Intravenous Every 6 hours 03/10/20 1942 03/17/20 0803 03/07/20 0900 acyclovir (ZOVIRAX) capsule 400 mg 400 mg Oral Three Times Daily Standard 03/06/20 2348 03/25/20 0808 03/07/20 0900 fluconazole (DIFLUCAN) tablet 200 mg 200 mg Oral Daily Standard 03/06/20 2348 03/25/20 0808 Laboratory Data (Most Recent in Past 3 Days) Lab 03/15/20 0016 03/15/20 1148 03/16/20 0025 WBC 0.4* 0.5* 0.5* HGB 8.5* 8.3* 7.3* HCT 24.3* 23.6* 20.8* MCV 85.5 85.7 84.9 PLT 34* 29* 18* Lab 03/14/20 0029 03/15/20 0016 03/16/20 0025 NA 134* 138 138 K 3.3* 4.0 4.1 CL 104 106 108* BICARBONATE 22 23 23 GLUCOSE 123 249* 151* BUN 44* 41* 33* CREATININE 1.66* 1.55* 1.52* Lab 03/14/20 0029 03/15/20 0016 03/16/20 0025 CALCIUM 8.1* 8.1* 8.5* MG 1.7 2.0 2.0 PHOS 2.8 3.8 3.2 Lab 03/14/20 0029 03/15/20 0016 03/15/20 1148 03/16/20 0025 NEUTOPHILPCT 1 < > 3 5 1 LYMPHOPCT 82 < > 75 77 86 MONOPCT 0 -- 3 -- -- EOSPCT 1 -- -- 3 1 < > = values in this interval not displayed. Invalid input(s): BILDIR Assessment/Plan Ms. Patricia Cotton is a 65 y.o. female with a medical history of CAD s/p 2 stent pr ocedures in 2009 and 2016, HTN, T2DM on insulin, HLD. COPD, CKD stage IV, and di verticulosis with an oncologic history of chronic myelomonocytic leukemia (CMML- 1) diagnosed in 2019. She presented at [facility] with complaints o f weakness and fatigue, and found to beseverelypancytopenic.She was transferred to for further management and evaluation. Active Problems: #CMML-1,not having achieved remission - Bone marrow biopsy on 03/07/20 was not consistentwith transformation to AML -Patient has progressive CMML, seemingly worsening after switching to oral d ecitabine-cedazuridine - Patient was started on IV Azacitidineon03/10/20,currently held - Will not resume chemotherapy while inpatient, plan to d/c for outpatient follo w up and treatment with pts primary oncologist - Pt has an appointment on March [address] Zandra lo #Pancytopenia, requiring blood and platelet transfusions - Pt had positive HLA Ab screen and will require HLA matched platelets - CBC following endoscopy was significant for H/H of 6.6/19.3 --> transfused with an additional unit on 03/14 - CBC today showed H/H 7.3/20.8, WBC 0.5, ANC 0.01 -C/w daily CBC - C/w Promacta - Continue transfusion support (for HgB < 7.0 and platelets <10) - Plan to transfuse 1 unit PRBCs + 1 unit HLA matched platelets on 03/17 prior to discharge on 03/18 #Neutropenic Fever - On 03/10, pt developed fever + rigors with Tmax of 102.4- started Zosyn/Van comycin - Pt is severely neutropenic: ANC 0.01, WBC 0.7(03/14) -Pt spiked a second fever on 03/13with Tmax of 102.4 - BCx, MRSA, and UCx(03/10): no growth 5 days - BCx and UCx (03/13): no growth 3 days - UA negative, CXR negative (03/13) -D/c Zosyn today, switched to Levaquin 500 mg - C/w neutropenic precautions - C/w prophylactic Acyclovir and Fluconazole #Upper GI Bleed, Melena -Pt complained of melena and diarrhea since admission - FOBT, upper GI tractpositive 03/11 - Tagged RBC scan on 03/12: positive for active GI bleed, possibly small bowel - Endoscopy on 03/14 with GI, which was significant for an angioectasia with blee ding in the 2nd part of the duodenum s/p hemostasis, no complications - Per pt, melena has significantly decreased, BMs are more formed and regular - ContinueProtonix 40 mg #Edema - 1+ pitting edema in b/l lower extremities, per pt is overall improving -Home lasix dose (40 mg bid) currently held due to elevated creatinine - Will continue to monitor #Hypercholemic Metabolic Acidosis, resolved - BMP todaystable, [id number], Cl-108 - Will replete bicarb as necessary - D/c fluids today #CAD -Continue home dose ofCoreg, Imdur #Hypertension -Continue home dose ofSpironolactone - BP stable: 134/70 - Continue to monitor #CKD, stage IV -Creatininetoday improving, 1.52 -Continue to hold Lasix for now, will consider re-starting home dose given L E edema if creatinine continues to improve back to baseline (around 1.3-1.4) -Continue to monitor BMP daily #COPD - No acute exacerbation; mild wheezing on PE today - Saturating 99% on room air - Continuehometiotropium, PRNalbuterol for wheezing #Type II DiabetesMellitus - Restarted Lantus 10 units yesterday - Glucose improved to 151 -ContinueinsulinSSI, diabetic diet, and POC glucosefollowing pro cedure DVT Prophylaxis: None, thrombocytopenia GI Prophylaxis: PPi Reason: Known GI bleed Functional Status: normal Code Status: DNR/DNI Disposition: Plan discharge to: Home Estimated Discharge Date: Tentatively Saturday 03/18, patient to receive 1 unit HLA -matched platelets and 1 unit PRBCs prior to discharge - follow up appointment with primary oncologist Dr. Carter scheduled for Thursday, Patient was discussed on rounds with the attending physician, Dr. Lisa Palumbo MD, who agrees with the above assessment and plan and will edit the note as ne mary. Please see the final attending attestation. Signature: Hayde Mcdowell AI Date/Time: March 16, 2020 8:24 AM Associated attestation - Lisa Palumbo MD - 03/16/2020 2:55 PM EST I have reviewed the notes, assessments, and/or procedures performed by Hayde martinez I concur with her/his documentation of Patricia Cotton. Patient was seen [place] on AM rounds. I personally examined patient Management was discussed as docume nted. Physician time spent 35 minutes > 50% face to face discussion of treatment plan * Lauren Ashraf, RN - 03/16/2020 6:39 AM EST Assumed care of patient from [id number]. Revived and agree with previous RN asses sment. Patient resting in bed, safety precautions maintained. Assessment is ongo ing. 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 States that she took a good nap earlier this afternoon. She hopes to be able to d/c home soon. Pain: Patient has no complaints of pain currently. Pain Medication Today: yes. OBJECTIVE General Observation: Pt in bed. Awake and alert. No bed alarm. On room air. Bilat LE edema. Vital Signs: Stable. Range of Motion:No change observed. Strength:functional for mobility as described below. Skin Integrity Screen: scattered bruising noted at exposed areas of bilat UE. Functional Status: Transfers: sit to/from stand with rolling walker and close supervision for safety. No loss of balance. Bed Mobility: supine to short sitting independently. Locomotion/Wheelchair: Not assessed. Locomotion/Gait/Ambulation: Ambulated 140 feet x 1, 100 feet x 1, with rolling walker and close supervision for safety. No loss of balance. Limited foot clearance during swing phase. Stairs: Not assessed. Outcome Measures: [facility] AM-PAC "6 Clicks" Basic Mobility Inpatient Short Form: Turning over in bed: Unable to perform (1) Sitting down on and standing up from a chair with arms: A little difficulty (3) Moving from lying on back to sitting on the side of the bed: No difficulty (4) Moving to and from a bed to a chair (including a wheelchair): A little help (3) Walking in hospital room: A little help (3) Climbing 3-5 steps with a railing: Total assistance (1) Raw Score 15 /24. Interventions: Therapeutic Exercise: Instructed pt in bilat LE exercises to promote strengthening for improved mobility: - heel raise in standing x 12 reps (using walker for support) - hip flexion in standing x 10 reps bilat (using rolling walker for support) - repeated sit-stand transfers from edge of bed, without using arms for support, x 6 reps Gait Training: as described above. Instructed pt to stay close to the walker / stay properly positioned inside the walker, including when turning and changing directions. Encouraged increased foot clearance during swing phase as tolerated, via increased hip and knee flexion (difficult due to LE edema) Education: Mode of education provided: Explanation. Audience: Patient. Education Provided: Importance of continuing to work with therapy to maximize her strength, endurance, and overall activity tolerance prior to d/c home . Response: Verbalized understanding. ASSESSMENT Response to Visit: Pt demonstrated good participation in PT today. She acknowleded feeling fatigued after this session. Remains sitting at the edge of the bed per her request. Call dean, phone, and tray table are within reach. Pt agrees to call nursing if she wants to stand / mobilize in the room. Pain: Patient has no complaints of pain currently. Goal review: Increased ambulation distance noted the past 2 days. Changes in or Continuation of Plan of Care: Patient will benefit from continued therapy to achieve planned goals. PLAN Treatment Frequency, Duration and Interventions: Restorative Physical Therapy is recommended for 5x per week for 3 weeks Treatment is to include: Gait Training. Neuromuscular Re-education. Therapeutic Activity. Therapeutic Exercise. Physical Performance Test. Self Care/Home Management. Equipment Provided: None issued this visit. Equipment Recommended: Pt will continue using rolling walker Recommended Physical Therapy Follow Up: Upon acute care discharge, the following is currently recommended: Home Physical Therapy. to assist as needed Recommended Consults: None currently. Development of Plan of Care: Participants included: Patient. Visit Number: Today's visit is number 7 Program: Oncology (Therapist may be reached on MIKA Audio) SESSION: Duration: 23 CHARGES: - ORDER - Physical Therapy Treatment 1 Units 53852 - CHARGE - PT GAIT TRNG - 15 MIN 1 Units 09780 - CHARGE - PT THER EX - 15 MIN 1 Units - CANCER VISIT 1 Units Total treatment minutes: 23.00 Minutes Electronically Signed by: Gucci Alvarado PT, DPT, 03/15/2020 3:25:32 PM * Hayde Mcdowell - 03/15/2020 8:56 AM EST Hematology Oncology Inpatient Progress Note Subjective Patient was seen and examined at the bedside this morning. There were no acute e vents overnight. The patient had an enteroscopy yesterday which revealed angioec patricia in the 2nd part of the duodenum. The pt tolerated the procedure very well. She had minimal subjective complaints on today's exam. She states that her bowel movements have decreased in frequency and the color has become less dark. She denies abdominal pain, nausea, and vomiting. She denies recent fevers, chills/di aphoresis, chest pain, dyspnea, or palpitations. Pt states that the swelling in her lower legs and ankles has improved since yest erday. She has a cough, POA, that is improving. Review of Systems Constitutional: Negative for chills, diaphoresis, fatigue and fever. HENT: Negative for congestion, rhinorrhea and sore throat. Respiratory: Positive for cough. Negative for chest tightness, shortness of irma th and wheezing. Cardiovascular: Positive for leg swelling. Negative for chest pain and palpitati ons. Gastrointestinal: Negative for abdominal pain, blood in stool, constipation, mariela rrhea, nausea and vomiting. Genitourinary: Negative for dysuria, frequency and urgency. Musculoskeletal: Positive for back pain. Negative for arthralgias. Lower back pain, chronic issue per patient. Worse with lying down. Neurological: Negative for dizziness, light-headedness and headaches. Psychiatric/Behavioral: Negative for agitation and confusion. Objective Temp: [36.3 C (97.3 F)-36.6 C (97.9 F)] 36.4 C (97.5 F) Pulse: [55-68] 66 Resp: [16-18] 16 BP: (107-140)/(42-68) 128/66 SpO2: [98 %-100 %] 100 % O2 Therapy: Room air Intake/Output Summary (Last 24 hours) at 03/15/2020 0856 Last data filed at 03/15/2020 0825 Gross per 24 hour Intake 4240.92 ml Output 1125 ml Net 3115.92 ml I/O last 3 completed shifts: In: 4120.9 [P.O.:1200; I.V.:2061.8; Blood:651.5; IV Piggyback:207.6] Out: 1725 [Urine:725; Other:1000] I/O this shift: In: 220 [P.O.:120; I.V.:100] Out: 250 [Other:250] Last bowel movement: 03/14/2020 Physical Exam Constitutional: She is oriented to person, place, and time. She does not appear ill. No distress. HENT: Head: Normocephalic and atraumatic. Head is with right periorbital erythema and with left periorbital erythema. Mouth/Throat: Mucous membranes are moist. Oropharynx is clear. Cardiovascular: Normal rate and regular rhythm. Exam reveals no gallop and no fr iction rub. No murmur heard. LE edema is slightly more pronounced on the right side. No associated erythema, warmth, or pain on palpation. Pulmonary/Chest: Effort normal. Decreased air movement is present. She has wheez es in the right upper field and the right middle field. She has no rhonchi. She has no rales. Abdominal: Soft. Bowel sounds are normal. She exhibits no distension. There is n o abdominal tenderness. There is no rebound and no guarding. Musculoskeletal: Right lower le+ Pitting Edema present. Left lower le+ Pitting Edema present. Neurological: She is alert and oriented to person, place, and time. Psychiatric: Her behavior is normal. Mood, judgment and thought content normal. Total Days of Anti-infective Therapy: 9 Anti-infectives (From admission, onward) Start Dose/Rate Route Frequency Ordered Stop 03/11/20 0130 piperacillin-tazobactam (ZOSYN) IVPB 3.375 g (premix) 3.375 g 100 mL/hr over 0.5 Hours Intravenous Every 6 hours 03/10/20 1942 03/17/20 0803 03/07/20 0900 acyclovir (ZOVIRAX) capsule 400 mg 400 mg Oral Three Times Daily Standard 03/06/20 2348 03/25/20 0808 03/07/20 0900 fluconazole (DIFLUCAN) tablet 200 mg 200 mg Oral Daily Standard 03/06/20 2348 03/25/20 0808 Laboratory Data (Most Recent in Past 3 Days) Lab 03/14/20 0458 03/14/20 1603 03/15/20 0016 WBC -- 0.5* 0.4* HGB -- 6.6* 8.5* HCT -- 19.3* 24.3* MCV -- 86.8 85.5 PLT 22* 36* 34* Lab 03/13/20 0135 03/14/20 0029 03/15/20 0016 NA 136 134* 138 K 3.6 3.3* 4.0 CL 109* 104 106 BICARBONATE 19* 22 23 GLUCOSE 134 123 249* BUN 42* 44* 41* CREATININE 1.78* 1.66* 1.55* Lab 03/13/20 0135 03/14/20 0029 03/15/20 0016 CALCIUM 8.0* 8.1* 8.1* MG 1.8 1.7 2.0 PHOS 3.5 2.8 3.8 Lab 03/13/20 1019 03/14/20 0029 03/15/20 0016 NEUTOPHILPCT 1 1 < > 3 LYMPHOPCT 79 82 < > 75 MONOPCT 1 0 -- 3 EOSPCT 1 1 -- -- < > = values in this interval not displayed. Invalid input(s): BILDIR Small Bowel Enteroscopy (Dr. Powell, 03/14/20): Assessment/Plan Ms. Patricia Cotton is a 65 y.o. female with a medical history of CAD s/p 2 stent pr ocedures in 2009 and 2016, HTN, T2DM on insulin, HLD. COPD, CKD stage IV, and di verticulosis with an oncologic history of chronic myelomonocytic leukemia (CMML- 1) diagnosed in 2019. She presented at [facility] with complaints o f weakness and fatigue, and found to beseverelypancytopenic.She was transferred to for further management and evaluation. Active Problems: #CMML-1,not having achieved remission - Bone marrow biopsy on 03/07/20 was not consistentwith transformation to AML -Patient has progressive CMML, seemingly worsening after switching to oral d ecitabine-cedazuridine - Patient was started on IV Azacitidineon03/10/20,currently held - Will not resume chemotherapy while inpatient, plan to d/c for outpatient follo w up and treatment with pts primary oncologist #Pancytopenia, requiring blood and platelet transfusions - Pt had positive HLA Ab screen and will require HLA matched platelets - CBC following endoscopy was significant for H/H of 6.6/19.3 --> transfused with an additional unit on 03/14 - CBC on 03/15 improving: H/H 8.5/24.3, platelets 34, WBC 0.4, ANC 0.01 -C/w bid CBC - C/w Promacta - Continue transfusion support (for HgB < 7.0 and platelets <10) #Neutropenic Fever - On 03/10, pt developed fever + rigors with Tmax of 102.4- started Zosyn/Van comycin - Pt is severely neutropenic: ANC 0.01, WBC 0.7(03/14) -Pt spiked a second fever on 03/13 with Tmax of 102.4 - BCx, MRSA, and UCx(03/10): no growth 5 days - BCx and UCx (03/13): no growth 2 days - UA negative, CXR negative (03/13) -C/w Zosyn for an additional day, then will plan to de-escalate antibiotics over the weekend and monitor for recurrence of fevers - C/w neutropenic precautions - C/w prophylactic Acyclovir and Fluconazole #Upper GI Bleed, Melena -Ptcontinues to endorsemelena, overall frequency of BMs is decreasin g - FOBT, upper GI tractpositive 03/11 - Tagged RBC scan on 03/12: positive for active GI bleed, possibly small bowel - Endoscopy on 03/14 with GI, which was significant for an angioectasia with blee ding in the 2nd part of the duodenum s/p hemostasis - Per procedure note, pt tolerated the endoscopy without significant complicatio ns - Re-started pt on regular diet today - ContinueProtonix 40 mg #Edema - 1+ pitting edema present in the bilateral lower extremities - Right lower extremity is slightly more swollen compared with left, not associa daron with pain or warmth - Per pt, right leg swelling has always been worse than the left side -Home lasix dose (40 mg bid) currently held due to elevated creatinine - Encouraged pt to work with PT and try to sit up in her chair during the day mo re often - Will continue to monitor #Hypercholemic Metabolic Acidosis, resolved - BMP todayshowedbicarbonate 23, Cl- 106 - Will replete bicarb as necessary #CAD -Continue home dose ofCoreg, Imdur #Hypertension -Continue home dose ofSpironolactone - BP stable: 128/66 - Continue to monitor #CKD, stage IV -Creatininetoday improving, 1.55 down from 1.78 on 03/13 - Continue to hold Lasix for now, will consider re-starting home dose given JORDY vancea if creatinine continues to improve back to baseline (around 1.3-1.4) -Continue to monitor BMP daily #COPD - No acute exacerbation; pt has mild wheezing on PE but has not required O2 ther apy since admission - Saturating 100% on room air - Continuehometiotropium, PRNalbuterol for wheezing #Type II DiabetesMellitus - Home lantus held -ContinueinsulinSSI, diabetic diet, and POC glucosefollowing pro cedure - Pt hyperglycemic today to 249, POC glucose also elevated at 206 - Will monitor glucose today and consider restarting home Lantus dose if she con tinues to have hyperglycemia DVT Prophylaxis: None, thrombocytopenia GI Prophylaxis: PPi Reason: Known GI bleed Functional Status: mildly impaired Code Status: DNR/DNI Disposition: Plan discharge to: Home Estimated Discharge Date: , but possibly Thursday or Thursday if blood cultures a re negative, no fevers, and CBC continues to improve or remains stable Patient was discussed on rounds with the attending physician, Dr. Palmubo, who a grees with the above assessment and plan and will edit the note as necessary. Pl ease see the final attending attestation. Signature: Hayde Mcdowell AI Date/Time: March 15, 2020 8:56 AM Associated attestation - Lisa Palumbo MD - 03/15/2020 12:28 PM EST I have reviewed the notes, assessments, and/or procedures performed by Hayde chino I concur with her/his documentation of Patricia Cotton. Patient seen examined a nd discussed together on AM rounds. Physician time spent 35 minutes > 50% face to face discussion of treatment plan * Katie Francois, JESSY - 03/15/2020 12:00 AM EST Patient received 1 unit PRBCs without any signs or symptoms of transfusion react ion. Patient assisted with toileting and denies any pain or discomfort. Patient status continues to be monitored. * Dayana Lyman RN - 03/14/2020 7:42 PM EST Assumed care of patient 15. Read and agree with previous gyn physician. Pt returned to floor after procedure. VSS. No c/o. Diet resumed. CBC sent per order . PRBC infusing at this time. No s/sx of reaction at this time. Will monitor. * Lui Burrows, CAR REPAIRER - 03/14/2020 1:43 PM EST RESPIRATORY CARE NOTE: The therapist assisted in a theraputic bronchoscopy in the endoscopy suitevia t he mouth. The patient tolerated the bronchoscopy well. The patient was suctioned for moderate amount of thick clear and bloody. No, there were no adverse effect s noted during the bronchoscopy. The therapist assisted in the bronchoscopy for 60 min * Gelacio Sheehan PT - 03/14/2020 10:48 AM EST Physical Therapy Acute Care Encounter Note Medical Diagnosis: CMML-1, possible AML transformation Anemia Throbocytopenia Neutropenia Hypertension Hyperlipidemia DM Type II Rehabilitation Precautions/Restrictions: DNR / DNI Neutropenic Precautions Activity: OOB ad james Goal Review Visit Number: 6 SUBJECTIVE Patient Report: Pt agrees to participate with PT Pain: Patient currently complains of pain. Location: back . Patient describes pain as Nonspecific. Verbal Scale: Patient reports a pain level of 3 out of 10. Pain Medication Today: yes. OBJECTIVE General Observation: Supine in bed with head of bed slightly elevated in no apparent distress No bed alarm noted at start of session. Skin Integrity Screen: scattered bruising noted at exposed areas of bilat UE. Vital Signs: Stable. Functional Status: Transfers: Sit<>stand with contact guard assistance utilizing rolling walker Bed Mobility: Supine<>sit with stand by assistance Locomotion/Gait/Ambulation: Patient was contact guard with gait/ambulation of 1 person for 30 ft x2, 140 ft . Patient requires the following assistive device(s): Rolling walker. Gait belt. Decreased ltaasha Stairs: Not assessed. Outcome Measures: [facility]-PAC "6 Clicks" Basic Mobility Inpatient Short Form: Turning over in bed: A little difficulty (3) Sitting down on and standing up from a chair with arms: A little difficulty (3) Moving from lying on back to sitting on the side of the bed: A little difficulty (3) Moving to and from a bed to a chair (including a wheelchair): A little help (3) Walking in hospital room: A little help (3) Climbing 3-5 steps with a railing: A little help (3) Raw Score 18 /24. Interventions: Gait Training: Pt required verbal cues for proper management of assistive device, proper hand placement onto assistive device, proper LE placement to ensure optimal base of support, proper self pacing and deep breathing to ensure acceptable oxygen saturation is maintained. Pt required one seated and two standing rest breaks during ambulation secondary to LE fatigue. Neuromuscular Reeducation: Pt instructed to perform static and dynamic standing balance task during todays session. Pt instructed to perform lateral gazes left right, up/down during standing and with ambulation. Pt also instructed to perform static standing with eyes closed and open requiring rest breaks secondary to fatigue. Pt perform three rounds of each task during todays session. Education: Mode of education provided: Demonstration. Explanation. Audience: Patient. Nurse. Education Provided: Safe mobility. Treatment plan. Response: Applied knowledge. Indicates understanding. Needs practice/reinforcement. Requires cues (auditory/physical). ASSESSMENT Response to Visit: The session was tolerated fair, as evidenced by: Patient reported fatigue Call dean was in patient's reach at end of session. Pain: Patient has no complaints of pain currently. PLAN Treatment Frequency, Duration and Interventions: Restorative Physical Therapy is recommended for 5x per week for 3 weeks Treatment is to include: Gait Training. Manual Therapy. Neuromuscular Re-education. Therapeutic Activity. Therapeutic Exercise. Self Care/Home Management. Pt will continue to benefit from skilled PT services to optimize functional mobility Recommended Physical Therapy Follow Up: Upon acute care discharge, the following is currently recommended: Anticipate that pt will make functional progress in PT and be able to d/c home with support from . Will likely benefit from Home PT Equipment Provided: None issued this visit. Visit Number: Today's visit is number 6 Program: Oncology (Therapist may be reached on Vocera) SESSION: Duration: 38 CHARGES: - ORDER - Physical Therapy Treatment 1 Units 63137 - CHARGE - PT GAIT TRNG - 15 MIN 2 Units 71999 - CHARGE - PT NEURO RE-ED - 15 MIN 1 Units - CANCER VISIT 1 Units Total treatment minutes: 38.00 Minutes Electronically Signed by: Gelacio Sheehan Jr, PT, DPT, 03/15/2020 9:47:48 AM * Dwayne Villanueva - 03/14/2020 10:36 AM EST Spiritual Care Progress Note Vice President Of Contracts: Rev. Louis Villanueva Vice President Of Contracts Chemist Physical Patient Name: Patricia Cotton Age: 65 y.o. Sex: female Room/Bed: [address] [place] [address] Maya Affiliation/Tradition: Caodaism Admit Date: 03/06/2020 Referrals: Referral From: Rounding On Unit Referral To: Vice President Of Contracts Chemist Physical Contact Information: Teo Spiritual Care Assessment Spouse/Significant Other Name/Relationship: None Assessed Need for Visit: Pre-surgical Visit Patient Description: Anxious, Calm, Accepting, At Peace Spiritual/Cultural/Social Issues Assessment: I visited Patricia Cotton today as a Vice President Of Contracts Chemist Physical assigned to 10 H unit. Patricia was sitting in her recliner waiting for her preparation for her surgery. She just finished her walking exercise with her physical therapist. She share with me that her surgery is schedule at 1:30 pm today. She is very much anxious and hoping everything will go according to pl an. She just want to get the surgery done with so that she can start drinking wa ter normally. She requested prayer for her surgery and we ended the visit with leander gomez. Spiritual Care remains available as needed or requested for spiritual sup port throughout this hospitalization. Spiritual Care Intervention: Pastoral Touch, Prayer, Spiritual Companionship, S upportive Listening Spiritual Outcomes - Patient: Expressed feelings, [place] comforted, accompanied Spiritual Outcomes - Family: Not available for assessment Spiritual Care Plan Goals of Care: Vice President Of Contracts will monitor and/or provide for ongoing identified spiri tual needs as they emerge throughout the hospitalization. Outcome: gradually improving Spiritual Care Follow Up Patient Follow-up Plan: Routine visit Family Follow-up Plan: No contact made at this time Associated attestation - Feliciano Capellan - 03/14/2020 5:11 PM EST Chart note reviewed..Rev. Feliciano Capellan MDIV, [facility], [place] Vice President Of Contracts District Administrator * Hayde Mcdowell - 03/14/2020 10:19 AM EST Hematology Oncology Inpatient Progress Note Subjective Patient was seen and examined at the bedside this morning. Overnight, the patien t spiked a fever to 39.1 C. NF obtained blood and urine cultures, chest X-ray, U A and gave tylenol. Patient is currently afebrile. The patient stated that she f elt hot at the time of the fever, but denies other symptoms including diaphoresi s/chills, dysuria, increased frequency or urgency, chest pain or dyspnea. The pa connor has had a cough since admission that has not significantly worsened. This morning, the patient had minimal subjective complaints aside from fatigue. She states that her diarrhea has somewhat improved since yesterday's visit, but continues to be dark black in color. She denies associated abdominal pain, nause a, or vomiting. She had some wheezing noted on PE, but did not complain of respiratory distress or dyspnea. She continues to endorse bilateral lower extremity edema. Her right lower extremity is slightly more enlarged compared to the left and associated wi th some pain. Review of Systems Constitutional: Positive for fatigue. Negative for chills, diaphoresis and fever . HENT: Positive for postnasal drip. Negative for congestion, mouth sores and rhin orrhea. Respiratory: Positive for cough and wheezing. Negative for shortness of breath. Gastrointestinal: Positive for diarrhea. Negative for abdominal distention, abdo trini pain, constipation, nausea and vomiting. Genitourinary: Negative for difficulty urinating, dysuria, frequency and urgency . Musculoskeletal: Negative for arthralgias, back pain and myalgias. Neurological: Negative for dizziness, weakness, light-headedness, numbness and h eadaches. Psychiatric/Behavioral: Negative for agitation and confusion. The patient is not nervous/anxious. Objective Temp: [36.4 C (97.5 F)-39.1 C (102.4 F)] 37.3 C (99.1 F ) Pulse: [61-80] 69 Resp: [14-18] 18 BP: (99-129)/(42-62) 113/53 SpO2: [96 %-100 %] 96 % O2 Therapy: Room air Intake/Output Summary (Last 24 hours) at 03/14/2020 1019 Last data filed at 03/14/2020 1000 Gross per 24 hour Intake 3516.75 ml Output 4200 ml Net -683.25 ml I/O last 3 completed shifts: In: 3698.9 [P.O.:1394; I.V.:1774.4; Blood:383.1; IV Piggyback:147.5] Out: 4350 [Urine:2350; Other:2000] I/O this shift: In: 237.8 [I.V.:237.8] Out: 850 [Other:850] Last bowel movement: 03/14/2020 Physical Exam Constitutional: She is oriented to person, place, and time. She does not appear ill. No distress. HENT: Head: Normocephalic and atraumatic. Mouth/Throat: Mucous membranes are moist. Oropharynx is clear. Cardiovascular: Normal rate and regular rhythm. Pulmonary/Chest: Effort normal. No respiratory distress. She has decreased breat h sounds. She has wheezes in the right upper field, the right middle field, the left upper field and the left middle field. She has no rhonchi. She has no rales . Abdominal: Soft. Bowel sounds are normal. There is no abdominal tenderness. Ther e is no rebound and no guarding. Neurological: She is alert and oriented to person, place, and time. Skin: Skin is warm and dry. Bruising, ecchymosis and petechiae noted. There is p allor. Bilateral upper and lower extremities, consistent with yesterday's exam. Psychiatric: Her behavior is normal. Mood, judgment and thought content normal. Total Days of Anti-infective Therapy: 8 Anti-infectives (From admission, onward) Start Dose/Rate Route Frequency Ordered Stop 03/11/20 0130 piperacillin-tazobactam (ZOSYN) IVPB 3.375 g (premix) 3.375 g 100 mL/hr over 0.5 Hours Intravenous Every 6 hours 03/10/20 1942 03/17/20 0803 03/07/20 0900 acyclovir (ZOVIRAX) capsule 400 mg 400 mg Oral Three Times Daily Standard 03/06/20 2348 03/17/20 0859 03/07/20 0900 fluconazole (DIFLUCAN) tablet 200 mg 200 mg Oral Daily Standard 03/06/20 2348 03/17/20 0859 Laboratory Data (Most Recent in Past 3 Days) Lab 03/13/20 1019 03/14/20 0029 03/14/20 0458 WBC 0.6* 0.7* -- HGB 8.2* 7.2* -- HCT 23.2* 20.2* -- MCV 85.6 84.7 -- PLT 16* 11* 22* Lab 03/12/20 0507 03/13/20 0135 03/14/20 0029 NA 135* 136 134* K 4.0 3.6 3.3* CL 113* 109* 104 BICARBONATE 16* 19* 22 GLUCOSE 130 134 123 BUN 43* 42* 44* CREATININE 1.64* 1.78* 1.66* Lab 03/12/20 0507 03/13/20 0135 03/14/20 0029 CALCIUM 8.2* 8.0* 8.1* MG 2.0 1.8 1.7 PHOS 3.1 3.5 2.8 Lab 03/12/20 0507 03/13/20 1019 03/14/20 0029 NEUTOPHILPCT 1 -- 1 1 LYMPHOPCT 87 < > 79 82 MONOPCT 0 < > 1 0 EOSPCT 1 -- 1 1 < > = values in this interval not displayed. Lab 03/12/20 0507 PROT 4.5* ALBUMIN 2.3* AST 5 ALT 5 TBILI 0.7 ALKPHOS 74 Assessment/Plan Ms. Patricia Cotton is a 65 y.o. female with a medical history of CAD s/p 2 stent pr ocedures in 2009 and 2016, HTN, T2DM on insulin, HLD. COPD, CKD stage IV, and di verticulosis with an oncologic history of chronic myelomonocytic leukemia (CMML- 1) diagnosed in 2019. She presented at [facility] with complaints o f weakness and fatigue, and found to beseverelypancytopenic.She was transferred to for further management and evaluation. Active Problems: #CMML-1,not having achieved remission - Bone marrow biopsy on 03/07/20 was not consistentwith transformation to AML -Patient has progressive CMML, seemingly worsening after switching to oral d ecitabine-cedazuridine - Patient was started on IV Azacitidineon03/10/20,currently held #Pancytopenia, requiring blood and platelet transfusions - Pt had positive HLA Ab screen and will require HLA matched platelets - Pt has received 1 unit HLA-matched platelets on 03/13, platelets increased to 2 2 from 11 - Pt will receive 2nd unit of HLA-matched platelets today during endoscopy - C/w bid CBC - C/w Promacta - Continue transfusion support #Neutropenic Fever - On 03/10, pt developed fever + rigors with Tmax of 102.4 - started Zosyn/Vancom ycin - Pt is severely neutropenic: ANC 0.01, WBC 0.7 (03/14) - Pt spiked a second fever on 03/13 with Tmax of 102.4 - BCxand UCx(03/10): no growth 3 days, MRSA negative - Repeated BCx and UCx following second fever spike on 03/13, pending - UA negative, CXR negative (03/13) -Will continue Zosyn for up to an additional 3 days - C/w neutropenic precautions - C/w prophylactic Acyclovir and Fluconazole #Upper GI Bleed, Melena -Pt continues to endorse melena, overall frequency of BMs is decreasing - FOBT, upper GI tractpositive 03/11 - Tagged RBC scan on 03/12: positive for active GI bleed, possibly small bowel - GI consulted: source of GI bleed is likely upper GI tract - Plan for endoscopy under general anesthesia today at ~1330 - Will follow GI recs after procedure - Per GI recs: transfuse to keep platelets >40, pt will receive additional unit of HLA-matched platelets prior to procedure today - Continue to resuscitate with IVFs - Continue Protonix 40 mg #Edema - Pt continues to endorse edema and b/l leg soreness, 1+ pitting edema on PEx - Right lower extremity is slightly more swollen compared with left, pt reports some pain in the right LE - Lasix held for now given elevation in baseline Cr up to 1.78 - Will continue to monitor right LE for possibly of DVT, however unlikely given the pts thrombocytopenia #Hypercholemic Metabolic Acidosis, resolved - BMP today showed bicarbonate 22, Cl- 104 s/p 0.45% NS + 75 mEq bicarbonate @ 1 00 cc/hr for 2 days - Will replete bicarb as necessary - Switched fluids back to NS given drop in Na+ to 134 today #CAD -Continue home dose ofCoreg, Imdur #Hypertension -Continue home dose ofSpironolactone - BP stable: 113/53 - Continue to monitor #CKD, stage IV -Creatinine today improving, 1.66 down from 1.78 - Continue to hold Lasix for now - Continue to monitor BMP daily - Fluids: Normal saline #COPD - No acute exacerbation; pt has moderate wheezing on PE - Per pt, wheezing improves with Albuterol treatment and denies respiratory dist ress/dyspnea - Saturating 96% on room air - Continuehometiotropium, PRNalbuterol for wheezing #Type II DiabetesMellitus - Pt is currently NPO given endoscopy today - Home lantus held -ContinueinsulinSSI, diabetic diet, and POC glucosefollowing pro cedure DVT Prophylaxis: Contraindicated, thrombocytopenia GI Prophylaxis: PPi Reason: Risk for stress ulcers Functional Status: mildly impaired Code Status: DNR/DNI Disposition: Plan discharge to: Home Estimated Discharge Date: TBD Patient was discussed on rounds with the attending physician, Dr. Palumbo, who a grees with the above assessment and plan and will edit the note as necessary. Pl ease see the final attending attestation. Signature: Hayde Mcdowell AI Date/Time: March 14, 2020 10:19 AM Associated attestation - Lisa Palumbo MD - 03/14/2020 3:50 PM EST I have reviewed the notes, assessments, and/or procedures performed by Hayde chino I concur with her/his documentation of Patricia Cotton. Patient seen examined a nd discussed on AM rounds. Labs reviewed. Physician time spent 35 minutes > 50% face to face discussion of treatment plan * Justin Mendoza - 03/14/2020 5:24 AM EST Results for PATRICIA COTTON V ( ) as of 03/14/2020 05:20 Ref. Range 03/14/2020 00:29 Potassium Latest Ref Range: 3.4 - 5.1 mmol/L 3.3 (L) At 0259 James Melissa was notified of the above K+ value. was asked to plac e PO K+ replacement d/t PORT line being utilized for PLT's transfusions and Bica rb afterwards. PO Potassium ordered and administered. At 0400 pt completed 1 unit of HLA PLT"s without adverse reaction noted. Pt was pre-medicated per APR. Pt tolerated transfusion well. Post PLT" count 22. Second unit of HLA PLT's ordered and will transfuse to keep PLT's >40 for endoscopy procedure today. At 0545 Pathology resident Everett Tavares informed this RN that second unit of HLA PLT's will not be released to transfuse at this time but during the endosco py procedure this AM d/t HLA PLT's shortage. James Melissa was informed of the above. 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 Reports that she woke up early today, as she though that she was going to be having a procedure. Pain: Patient currently complains of pain. Location: back . Patient describes pain as Nonspecific. Verbal Scale: Patient reports a pain level of 1 out of 10. Pain Medication Today: no. OBJECTIVE General Observation: Pt in bed. Awakens easily. On room air. No bed alarm. Vital Signs: Stable. On room air througout this session At rest, HR 80 Oxygen saturation = 97% Immediately following ambulation, HR = 107 Oxygen saturation = 95% Range of Motion:No change observed. Strength: functional for mobility as described below Skin Integrity Screen: scattered bruising noted at exposed areas of bilat UE. Functional Status: Transfers: sit to/from stand with close supervision - contact guard assist for safety. Used UEs for support on edge of bed / arms of commode / arms of chair. Bed Mobility: supine to short sitting independently. Locomotion/Wheelchair: Not assessed. Locomotion/Gait/Ambulation: Stairs: Not assessed. Outcome Measures: [facility] "6 Clicks" Basic Mobility Inpatient Short Form: Turning over in bed: Unable to perform (1) Sitting down on and standing up from a chair with arms: A little difficulty (3) Moving from lying on back to sitting on the side of the bed: A little difficulty (3) Moving to and from a bed to a chair (including a wheelchair): A little help (3) Walking in hospital room: A little help (3) Climbing 3-5 steps with a railing: Total assistance (1) Raw Score 14 /24. Interventions: Therapeutic Exercise: Instructed pt in bilat LE exercises to promote strengthening for improved mobility, and to facilitate ROM and circulation: - heel raise in standing x 15 reps (used rolling walker for support) - hip flexion in standing, x 15 reps bilat (used rolling walker for support) - squats in standing x 12 reps (used rolling walker for support) - repeated sit-stand from edge of bed (with arms across her chest), x 5 reps with contact guard assist, and bed elevated only slightly. Therapist provided verbal / physical cues and demonstration for these exercises. Rest breaks provided. Pt monitored oxygen saturation (noted to be mid-upper 90's on room air) Gait Training: as described above. Therapist provided contact guard assist at gait belt for safety. Occasional verbal cues provided for pt to safely navigate around obstacles in the [place] (i.e. the keyboard tray from a computer that was sticking out) so that pt didn't bump into them. Educated pt regarding the importance of moving cautiously and only with assistance from staff, to prevent fall / subsequent injury. Immediately following ambulation, HR = 107 Oxygen saturation = 95% Therapeutic Activities: Peformed multiple sit-stand transfers during this session, including from edge of bed and from the commode (used commode 2x during this session). Required contact guard assist for safety, use of rolling walker, and use of arms of commode / chair / edge of bed. Gait belt used for safety. Instructed pt to fully back up to surface prior to attemting to sit. Education: Mode of education provided: Explanation. Demonstration. Audience: Patient. Education Provided: LE exercises as described above. Importance of continuing to work with therapy to maximize functional strength, endurance, and mobility prior to d/c . Response: Verbalized understanding. ASSESSMENT Response to Visit: Pt was pleasant and very cooperative throughout this session. Admits to feeling a little fatigued after treatment. Pt sitting in recliner chair after this session. Call dean, phone, and tray table are within reach. Pt agrees to use call dean to request nursing assistance for all transfers / ambulation. Pain: Yes, pain is unchanged from start of today's treatment. Goal review: Slightly more fatigued today vs her performance in PT at the end of last week, however, she continues to mobilize with assist of 1 for safety using rolling walker. Changes in or Continuation of Plan of Care: Patient will benefit from continued therapy to achieve planned goals. PLAN Treatment Frequency, Duration and Interventions: Restorative Physical Therapy is recommended for 5x per week for 3 weeks Treatment is to include: Gait Training. Neuromuscular Re-education. Therapeutic Activity. Therapeutic Exercise. Physical Performance Test. Self Care/Home Management. Patient/family/professionals conference. Equipment Provided: None issued this visit. Equipment Recommended: Pt has rollator at home. Recommended Physical Therapy Follow Up: Anticipate that pt will make functional progress in PT and be able to d/c home with support from . Will likely benefit from Home PT Recommended Consults: None currently. Development of Plan of Care: Participants included: Patient. Visit Number: Today's visit is number 5 Program: Oncology (Therapist may be reached on [facility] Audio) SESSION: Duration: 38 CHARGES: - ORDER - Physical Therapy Treatment 1 Units 90152 - CHARGE - PT GAIT TRNG - 15 MIN 1 Units 88421 - CHARGE - PT THER EX - 15 MIN 1 Units 33882 - CHARGE - PT THERAPEUTIC ACTIVITIES - 15 MIN 1 Units - CANCER VISIT 1 Units Total treatment minutes: 38.00 Minutes Electronically Signed by: Gucci Alvarado PT, DPT, 03/13/2020 4:03:41 PM * Hayde Mcdowell - 03/13/2020 12:24 PM EST Hematology Oncology Inpatient Progress Note Subjective Patient was seen and examined at the bedside this morning. There were no acute e vents overnight, aside from additional transfusional support. Today, the patient had minimal subjective complaints and states that she is feel ing well. She has some difficulty with fatigue when ambulating, however she michael es dyspnea, palpitations, or chest pain. She reports some wheezing and cough srinivas t was POA and has no worsened. Denies recent fevers, chills, or diaphoresis. She continues to endorse diarrhea and dark black/tar colored stools. She states that her BMs have somewhat decreased in frequency since yesterday. Review of Systems Constitutional: Positive for fatigue. Negative for appetite change, chills, diap horesis and fever. HENT: Positive for mouth sores and postnasal drip. Respiratory: Positive for cough and wheezing. Negative for shortness of breath. Cough POA has not worsened, per patient Cardiovascular: Positive for leg swelling. Negative for chest pain and palpitati ons. Endorses b/l lower extremity edema, unchanged since yesterday's exam Gastrointestinal: Positive for blood in stool and diarrhea. Negative for abdomin al pain, constipation, nausea and vomiting. Genitourinary: Negative for dysuria, frequency and urgency. Musculoskeletal: Positive for arthralgias and back pain. Negative for myalgias. Neurological: Negative for dizziness and headaches. Hematological: Bruises/bleeds easily. Psychiatric/Behavioral: Negative for agitation and confusion. The patient is not nervous/anxious. Objective Temp: [36.4 C (97.5 F)-37.1 C (98.8 F)] 36.4 C (97.5 F) Pulse: [50-68] 65 Resp: [16-18] 16 BP: (98-135)/(43-60) 129/60 SpO2: [99 %-100 %] 99 % O2 Therapy: Room air Intake/Output Summary (Last 24 hours) at 03/13/2020 1226 Last data filed at 03/13/2020 1200 Gross per 24 hour Intake 3117.7 ml Output 3505 ml Net -387.3 ml I/O last 3 completed shifts: In: 3175.5 [P.O.:500; I.V.:1218.2; Blood:1210; IV Piggyback:247.3] Out: 2975 [Urine:860; Other:2115] I/O this shift: In: 592.2 [P.O.:120; I.V.:469.5; IV Piggyback:2.7] Out: 1200 [Urine:200; Other:1000] Last bowel movement: 03/13/2020 Physical Exam Constitutional: She is oriented to person, place, and time. She does not appear ill. No distress. HENT: Head: Normocephalic and atraumatic. Mouth/Throat: Mucous membranes are dry. Eyes: Pupils are equal, round, and reactive to light. Cardiovascular: Normal rate, regular rhythm, normal heart sounds and normal puls es. Pulmonary/Chest: Effort normal. She has decreased breath sounds. She has wheezes in the right middle field and the left middle field. She has no rhonchi. She has no rales. Abdominal: Soft. Bowel sounds are normal. She exhibits no distension. There is n o abdominal tenderness. There is no rebound and no guarding. Musculoskeletal: Right lower le+ Pitting Edema present. Left lower le+ Pitting Edema present. Neurological: She is alert and oriented to person, place, and time. Skin: Skin is warm and dry. Bruising, ecchymosis and petechiae noted. There is p allor. Diffuse bruising/petechiae on the bilateral upper and lower extremities. New bru ising and ecchymosis over the b/l inguinal area. Psychiatric: Her behavior is normal. Mood, judgment and thought content normal. Total Days of Anti-infective Therapy: 7 Anti-infectives (From admission, onward) Start Dose/Rate Route Frequency Ordered Stop 03/11/20 0130 piperacillin-tazobactam (ZOSYN) IVPB 3.375 g (premix) 3.375 g 100 mL/hr over 0.5 Hours Intravenous Every 6 hours 03/10/20 1942 03/15/20 1229 03/07/20 0900 acyclovir (ZOVIRAX) capsule 400 mg 400 mg Oral Three Times Daily Standard 03/06/20 2348 03/17/20 0859 03/07/20 0900 fluconazole (DIFLUCAN) tablet 200 mg 200 mg Oral Daily Standard 03/06/20 2348 03/17/20 0859 Laboratory Data (Most Recent in Past 3 Days) Lab 03/12/20 1457 03/12/20 2207 03/13/20 1019 WBC -- 0.5* 0.6* HGB -- 6.8* 8.2* HCT -- 19.1* 23.2* MCV -- 86.6 85.6 PLT 18* 26* 16* Lab 03/11/20 0028 03/12/20 0507 03/13/20 0135 NA 136 135* 136 K 4.3 4.0 3.6 CL 114* 113* 109* BICARBONATE 16* 16* 19* GLUCOSE 114 130 134 BUN 42* 43* 42* CREATININE 1.39* 1.64* 1.78* Lab 03/11/20 0028 03/12/20 0507 03/13/20 0135 CALCIUM 7.4* 8.2* 8.0* MG 1.9 2.0 1.8 PHOS 2.7 3.1 3.5 Lab 03/11/20 1645 03/12/20 0507 03/12/20 2207 NEUTOPHILPCT 1 1 -- LYMPHOPCT 84 87 85 MONOPCT 2 0 1 EOSPCT 1 1 -- Lab 03/12/20 0507 PROT 4.5* ALBUMIN 2.3* AST 5 ALT 5 TBILI 0.7 ALKPHOS 74 Assessment/Plan Ms. Patricia Cotton is a 65 y.o. female with a medical history of CAD s/p 2 stent pr ocedures in 2009 and 2016, HTN, T2DM on insulin, HLD. COPD, CKD stage IV, and di verticulosis with an oncologic history of chronic myelomonocytic leukemia (CMML- 1) diagnosed in 2019. She presented at [facility] with complaints o f weakness and fatigue, and found to beseverelypancytopenic.She was transferred to for further management and evaluation. Active Problems: #CMML-1,not having achieved remission - Bone marrow biopsy on 03/07/20 was not consistentwith transformation to AML -Patient has progressive CMML, seemingly worsening after switching to oral d ecitabine-cedazuridine - Patient was started on IV Azacitidine on 03/10/20, currently held #Pancytopenia, requiring blood and platelet transfusions - Continue transfusion support (for HgB <7.0, per GI recs platelets <40) - Most recent CBC on 03/13 revealed H/H of 8.2/23.2, platelets 16 - C/w bid CBC - C/w Promacta - Given pts lack of response to platelet transfusions: HLA antibody screen and H LA typing ordered, pending - Per GI recs: will transfuse to keep platelets >40 prior to endoscopy #Neutropenic Fever, resolving - On 03/10, pt developed fever + rigors with Tmax of 102.4 - started Zosyn/Vancom ycin - Pt is severely neutropenic: ANC 0.01, WBC 0.6 (03/13) - No additional fever since 1800 on 03/10 - BCx and UCx obtained: no growth 3 days, MRSA negative - Vancomycin d/c - Plan to d/c Zosyn tomorrow and start Levaquin - C/w neutropenic precautions - C/w prophylactic Acyclovir and Fluconazole #Upper GI Bleed, Melena - Pt endorses melena with >4 BMs over the past 24 hours - FOBT, upper GI tract positive 03/11 - Tagged RBC scan on 03/12: positive for active GI bleed, possibly small bowel - GI consulted: source of GI bleed is likely upper GI tract - Plan for endoscopy under general anesthesia Thursday AM - Per GI recs: transfuse to keep platelets >40 - Continue to resuscitate with IVFs - Continue Protonix 40 mg #Edema - Pt continues to endorse edema and b/l leg soreness, 1+ pitting edema on PEx, o verall improving - Albumin low at 2.3 - Bump in creatinine today (up to 1.78), will hold Lasix for now #Hypercholemic Metabolic Acidosis, resolving - BMP today showed bicarbonate 19, Cl- 109 - Likely secondary to GI losses and fluid resuscitation - Continue 0.45% NS + 75 mEq bicarbonate @ 100 cc/hr - Will replete bicarb as necessary #CAD -Continue home dose ofCoreg, Imdur #Hypertension -Continue home dose ofSpironolactone - BP stable: 129/60 - Continue to monitor #CKD, stage IV -Creatinine trending up, today 1.78 - Possibly secondary to Lasix, will d/c for now - Continue to monitor BMP daily - Fluids: 1/2 NS + bicarbonate #COPD - No acute exacerbation; some mild wheezes on PE - Saturating 99% on room air, no respiratory distress or dyspnea - Continuehometiotropium, PRNalbuterol for wheezing #Type II DiabetesMellitus - BG max 184 over the past 24 hours - Home lantus held -ContinueinsulinSSI, diabetic diet, and POC glucose DVT Prophylaxis: Contraindicated, thrombocytopenia GI Prophylaxis: PPi Reason: Risk for stress ulcers Functional Status: mildly impaired Code Status: DNR/DNI Disposition: Plan discharge to: Home Estimated Discharge Date: TBD Patient was discussed on rounds with the attending physician, Dr. Palumbo, who a grees with the above assessment and plan and will edit the note as necessary. Pl ease see the final attending attestation. Signature: Hayde Mcdowell AI Date/Time: March 13, 2020 12:26 PM Associated attestation - Lisa Palumbo MD - 03/13/2020 2:59 PM EST I have reviewed the notes, assessments, and/or procedures performed by Hayde chino I concur with her/his documentation of Patricia Cotton. I personally saw the jonah connor and examined her. Labs reviewed. HLA Ab screen positive so she will requir e HLA matched antibodies. Blood bank alerted. Plan endoscopy tomorrow after plat elet transfusion. Physician time spent 35 minutes > 50% face to face discussion of treatment plan * Justin Mendoza - 03/13/2020 3:53 AM EST At 0345 pt completed 1 unit or PRBC without adverse reaction noted. Pre-meds giv en per APR. Pt tolerated transfusion well. 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 Pain: Patient has no complaints of pain currently. Pain Medication Today: unclear if she had pain medication today OBJECTIVE General Observation: Pt sitting at edge of bed when therapist arrived. No bed alarm. Getting RBC tranfusion at this time. Labs: Hematocrit = 18.3 Hemoglobin = 6.5 Platelets = 10 Skin Integrity Screen: visualized areas intact Vital Signs: Stable. Functional Status: Deferred mobility at this time as pt is getting blood at this time, and last blood counts were low. Transfers: Transfers were not assessed at this time. Bed Mobility: Not assessed. Locomotion/Gait/Ambulation: Not assessed. Stairs: Not assessed. Outcome Measures: [facility] "6 Clicks" Basic Mobility Inpatient Short Form: Turning over in bed: Unable to perform (1) Sitting down on and standing up from a chair with arms: A little difficulty (3) Moving from lying on back to sitting on the side of the bed: A little difficulty (3) Moving to and from a bed to a chair (including a wheelchair): A little help (3) Walking in hospital room: A little help (3) Climbing 3-5 steps with a railing: Total assistance (1) Raw Score 14 /24. Interventions: Therapeutic Exercise: Instructed pt in bilat LE exercises in sitting to promote strengthening for improved mobility, and also to facilitate ROM and circulation: - ankle pumps, 2 sets x 15 reps each - long arc quads, 2 sets x 10 reps each - hip flexion, 2 sets x 10 reps each. - hip adduction (squeezing pillow between knees) x 10 reps. Deferred mobility at this time due to low hemoglobin and hematocrit and pt's dinner just arrived. Education: Mode of education provided: Explanation. Demonstration. Audience: Patient. Education Provided: LE exercises as described above. . Response: Applied knowledge. Verbalized understanding. ASSESSMENT Response to Visit: Pt was very pleasant and cooperative during this encounter. Activity was limited due to low hemoglobin and hematocrit. SHe remains sitting at edge of bed and is eating her lunch at the end of this session. No immediate needs identified by pt at this time. Call dean and phone are within reach. Pain: Patient has no complaints of pain currently. PLAN Treatment Frequency, Duration and Interventions: Restorative Physical Therapy is recommended for 5x per week for 3 weeks Treatment is to include: Gait Training. Neuromuscular Re-education. Therapeutic Activity. Therapeutic Exercise. Self Care/Home Management. Recommended Physical Therapy Follow Up: Upon acute care discharge, the following is currently recommended: Anticipate that pt will be able to d/c home with support from . Will likely also benefit from Home PT. Equipment Provided: None issued this visit. Visit Number: Today's visit is number 4 Program: Oncology (Therapist may be reached on [facility] Audio) SESSION: Duration: 11 CHARGES: 80218 - CHARGE - PT THER EX - 15 MIN 1 Units - CANCER VISIT 1 Units Total treatment minutes: 11.00 Minutes Electronically Signed by: Gucci Alvarado PT, DPT, 03/13/2020 10:19:11 AM * Gucci Alvarado PT - 03/12/2020 1:36 PM EST Physical Therapy Acute Care Missed Visit Note Location: bedside Attempted to visit patient for therapy, but was unable for the following reasons: Pt is just returning to bed to rest. Hematocrit = 18.3 Hemoglobin = 6.5 Platelets = 10. This therapist spoke with Sharmin Olmedo (RN) and she reports that pt is getting platelets now, and will get RBCs later today. She also reports that pt got Tylenol and Benadryl prior to platelet infusion. (Therapist may be reached on [facility] Audio) SESSION: Duration: 0 CHARGES: - ORDER - Physical Therapy Treatment 1 Units Total treatment minutes: 0.00 Minutes Electronically Signed by: Gucci Alvarado PT, DPT, 03/12/2020 1:38:47 PM * Hayde Mcdowell - 03/12/2020 9:52 AM EST Hematology Oncology Inpatient Progress Note Subjective Patient was seen and examined at the bedside this morning.There were no acute e vents overnight. The patient complains of persistent diarrhea and black/tarry st ools. She states that she has had between 4-5 episodes over the past 24 hours an d that they are associated with urgency. She denies any associated abdominal rhona n, nausea, or vomiting. There is no ariane bright red blood in the stool. The patient continues to be pancytopenic and resistant blood and platelet trans fusions. She is asymptomatic, denies significant dizziness, fatigue, lightheaded ness or syncope. Pt reports no episodes of fever, diaphoresis or rigors overnigh t. Pt began chemotherapy with Azacitidine on 03/10. She is overall tolerating the c hemotherapy well and denies any significant side effects. Continues to endorse b ilateral leg swelling that has overall worsened since her admission. No signific ant associated pain or warmth. Review of Systems Constitutional: Negative for chills, diaphoresis, fatigue and fever. HENT: Positive for postnasal drip. Negative for congestion, mouth sores and nose bleeds. Respiratory: Negative for cough, chest tightness, shortness of breath and wheezi ng. Cardiovascular: Positive for leg swelling. Negative for chest pain and palpitati ons. Gastrointestinal: Positive for blood in stool and diarrhea. Negative for abdomin al distention, abdominal pain, constipation, nausea and vomiting. Endorses melena (black/tarry stools) Genitourinary: Negative for dysuria, frequency and urgency. Musculoskeletal: Negative for arthralgias, back pain and myalgias. Neurological: Negative for dizziness, syncope, light-headedness and headaches. Hematological: Bruises/bleeds easily. Psychiatric/Behavioral: Negative for agitation and confusion. Objective Temp: [36.6 C (97.8 F)-37.7 C (99.9 F)] 37.1 C (98.8 F) Pulse: [55-73] 63 Resp: [18] 18 BP: (104-145)/(43-99) 145/99 SpO2: [98 %-100 %] 98 % O2 Therapy: Room air Intake/Output Summary (Last 24 hours) at 03/12/2020 0953 Last data filed at 03/12/2020 0900 Gross per 24 hour Intake 3981.7 ml Output 3585 ml Net 396.7 ml I/O last 3 completed shifts: In: 4066 [P.O.:1717; I.V.:1476.4; Blood:267; IV Piggyback:605.6] Out: 3125 [Urine:2400; Other:725] I/O this shift: In: 300 [I.V.:300] Out: 670 [Other:670] Last bowel movement: 03/12/20 Patient reports 4-5 episodes of diarrhea over the past 24 hours Physical Exam Constitutional: She is oriented to person, place, and time. She does not appear ill. No distress. HENT: Head: Normocephalic and atraumatic. Nose: No congestion. Mouth/Throat: Mucous membranes are moist. Oropharynx is clear. Eyes: No scleral icterus. Cardiovascular: Normal rate, regular rhythm and normal pulses. Exam reveals no g allop and no friction rub. No murmur heard. Pulmonary/Chest: Effort normal. No respiratory distress. She has decreased breat h sounds. She has wheezes in the left middle field and the left lower field. Abdominal: Soft. Bowel sounds are normal. She exhibits no distension. There is n o abdominal tenderness. There is no rebound and no guarding. Musculoskeletal: Right lower le+ Pitting Edema present. Left lower le+ Pitting Edema present. Neurological: She is alert and oriented to person, place, and time. Skin: Skin is warm and dry. Bruising and petechiae noted. There is pallor. Bruising and petechiae on bilateral upper extremities, POA Psychiatric: Her behavior is normal. Mood, judgment and thought content normal. Total Days of Anti-infective Therapy: 6 Anti-infectives (From admission, onward) Start Dose/Rate Route Frequency Ordered Stop 03/11/20 0130 piperacillin-tazobactam (ZOSYN) IVPB 3.375 g (premix) 3.375 g 100 mL/hr over 0.5 Hours Intravenous Every 6 hours 03/10/20 1942 03/15/20 0851 03/07/20 0900 acyclovir (ZOVIRAX) capsule 400 mg 400 mg Oral Three Times Daily Standard 03/06/20 2348 03/17/20 0859 03/07/20 0900 fluconazole (DIFLUCAN) tablet 200 mg 200 mg Oral Daily Standard 03/06/20 2348 03/17/20 0859 Laboratory Data (Most Recent in Past 3 Days) Lab 03/11/20 0028 03/11/20 1645 03/12/20 0507 WBC 0.4* 0.5* 0.5* HGB 5.7* 6.8* 6.5* HCT 16.5* 19.1* 18.3* MCV 88.2 87.1 87.7 PLT 11* 13* 10* Lab 03/10/20 0023 03/11/20 0028 03/12/20 0507 NA 137 136 135* K 4.5 4.3 4.0 CL 113* 114* 113* BICARBONATE 17* 16* 16* GLUCOSE 100 114 130 BUN 43* 42* 43* CREATININE 1.35* 1.39* 1.64* Lab 03/10/20 0023 03/11/20 0028 03/12/20 0507 CALCIUM 7.6* 7.4* 8.2* MG 1.9 1.9 2.0 PHOS 3.0 2.7 3.1 Lab 03/09/20 1151 03/11/20 1645 03/12/20 0507 NEUTOPHILPCT 7 < > 1 1 LYMPHOPCT 81 < > 84 87 MONOPCT 1 < > 2 0 EOSPCT 2 -- 1 1 < > = values in this interval not displayed. Lab 03/12/20 0507 PROT 4.5* ALBUMIN 2.3* AST 5 ALT 5 TBILI 0.7 ALKPHOS 74 Assessment/Plan Ms. Patricia Cotton is a 65 y.o. female with a medical history of CAD s/p 2 stent pr ocedures in 2009 and 2016, HTN, T2DM on insulin, HLD. COPD, CKD stage IV, and di verticulosis with an oncologic history of chronic myelomonocytic leukemia (CMML- 1) diagnosed in 2019. She presented at [facility] with complaints o f weakness and fatigue, and found to be severely pancytopenic. She was transferr ed to for further management and evaluation due to concern for progression of disease, and remains admitted for management of the following active problems. Active Problems: #CMML-1, not having achieved remission - Bone marrow biopsy on 03/07/20 was not consistent with transformation to AML - Patient has progressive CMML, seemingly worsening after switching to oral deci tabine-cedazuridine - Patient was started on IV Azacitidine on 03/10/20, currently on day 3/7 - Pt is tolerating the chemo well with minimal subjective complaints - Requested pathology to complete additional testing for PDGF-R mutation to dete rmine if pt is candidate for Imatinib #Pancytopenia, requiring blood and platelet transfusions - Continue transfusion support (for HgB <7.0, platelets <25) *Increased threshold for platelet transfusion given possibly for GI procedure - Most recent CBC on 03/11 revealed H/H of 6.5/18.3, platelets 10 receiving an ad ditional unit RBCs and platelets this AM - Due to pts lack of response to transfusions, will check CBC bid - C/w Promacta - HLA antibody screen ordered, pending - GI consulted for possible upper GI bleed, will follow recs #Neutropenic Fever, resolving - On 03/10, pt developed fever + rigors with Tmax of 102.4 - Pt is severely neutropenic: ANC 0.01, WBC 0.5 (03/12/20) - NF gave Tylenol 2x 650 mg - Pt is currently afebrile (no fever since 1800 on 03/10), denies subjective feve r, diaphoresis overnight - BCx and UCx obtained: no growth 2 days - MRSA culture negative; discontinued Vancomycin - CXR showed no evidence of infiltrates or pneumonia - Will continue Zosyn for an additional day given neutropenia and high risk for infection, and plan to de-escalate Abx gradually - C/w neutropenic precautions - C/w prophylactic Acyclovir and Fluconazole #Melena/Dark stools - FOBT (lower GI tract) negative on 03/07 - Pt continues to have melena with 4-5 loose BMs over the past 24 hours - FOBT, upper GI tract positive 03/11 - GI consulted on 03/11: recommended obtaining tagged RBC scan to identify source of bleeding (in process) - Per conversation with GI: endoscopy/colonoscopy would place the patient at ext remely high risk of bleeding and infection due to the pts severe pancytopenia - Will follow official GI recommendations - Currently on Protonix 40 mg #Edema - Pt continues to endorse edema and b/l leg soreness, 1+ pitting edema on PEx, o verall improving - Pt has gained 7 kg since admission, likely 2/2 to fluid resuscitation, albumin low 2.6 - C/w Lasix 40 mg daily (takes 40 mg bid at home) #Hypercholemic Metabolic Acidosis - BMP today significant for: bicarbonate 16, Cl- 113 - Likely secondary to GI losses and fluid resuscitation with 0.9% NS - Will switch fluids to 0.45% NS + 75 mEq bicarbonate @ 100 cc/hr - Will replete bicarb as necessary and reassess AM BMP #CAD - Continue home dose of Coreg, Imdur #Hypertension - Continue home dose of Spironolactone - Re-started home Lasix, continue - BP stable since admission, today pt was hypertensive at 145/99 #CKD, stage IV - Creatinine stable since admission, today elevated at 1.64, BUN 43 - Will continue to monitor BMP daily - Fluids: 1/2 NS + bicarbonate #COPD - No acute exacerbation; some mild wheezes on PE - Saturating 98% on room air, no respiratory distress or dyspnea - Continue home tiotropium, PRN albuterol for wheezing #Type II Diabetes Mellitus - Held home lantus, BGs have been low/normal since admission (min 74, max 138) - Continue insulin SSI, diabetic diet, and POC glucose DVT Prophylaxis: Contraindicated, thrombocytopenia GI Prophylaxis: PPi Reason: Risk for stress ulcers Functional Status: mildly impaired Code Status: DNR/DNI Disposition: Plan discharge to: Home Estimated Discharge Date: TBD The patient was discussed with Lisa Palumbo MDwho agrees with the neville dobbs and jacqui noted above. Signature: Hayde Mcdowell AI Date/Time: March 12, 2020 9:53 AM Associated attestation - Lisa Palumbo MD - 03/12/2020 4:14 PM EST I have reviewed the notes, assessments, and/or procedures performed by Hayde chino, I concur with her/his documentation of Patricia Cotton. Patient seen examined and discussed on AM rounds. I reviewed RBC scan results and discussed with GI Th plan on endoscopy. I have ordered HLA ab screen to assess need for better mat ched platelets as she is not bumping very much with current products. Physician time spent 35 minutes > 50% face to face discussion of treatment plan * Kecia Soto, RN - 03/11/2020 5:24 PM EST Assumed care of patient at 1500. Patient tolerated remainder of platelet transfu belen without incident. VSS, no signs of reaction. CBC completed after transfusio n. Hg=6.8, Plt=13. Dr. Palumbo made aware. Stated no need to give another unit o f platelets at this time, but to give RBCs. Order placed. Will continue to monit or. * Sharmin Olmedo RN - 03/11/2020 2:38 PM EST Patricia Cotton received Azacitidine IV over 30 minutes. During the infusion, she received 100 ml of chemotherapy. Chemotherapy was infused via [facility] . Positi ve blood return was verified prior to and after the infusion. Following infusio n, maintenance IVF restarted. Patient tolerated infusion well with no reaction noted. Patient provided with education regarding medication received. * Hayde Mcdowell - 03/11/2020 11:47 AM EST Hematology Oncology Inpatient Progress Note Subjective Patient was seen and examined at the bedside this morning. Overnight, the patie nt developed a fever with Tmax of 102.4 F with associated rigors and diaphoresis . She was treated with Tylenol, elliott cultured (blood and urine), and started on Zosyn/Vancomycin. There is no clear source of infection at this point. This AM, the patient was afebrile and denied fever, chills, or diaphoresis since last ni ght. The patient also complained of diarrhea that appeared dark black in color. She states that she has had dark black stools for the past several weeks after start ing chemotherapy. Denies abdominal pain, nausea or vomiting. Denies dysuria or h ematuria. Pt also complained of bilateral lower leg edema, worsened since admiss ion. Review of Systems Constitutional: Positive for appetite change. Negative for chills, diaphoresis, fatigue and fever. Decreased appetite. HENT: Positive for postnasal drip. Negative for mouth sores, nosebleeds and rhin orrhea. Respiratory: Positive for cough. Negative for shortness of breath and wheezing. Cough productive of clear/white sputum. Cardiovascular: Positive for leg swelling. Negative for chest pain and palpitati ons. Gastrointestinal: Positive for diarrhea. Negative for abdominal pain, constipati on, nausea and vomiting. Reports dark black/tar colored stools. Genitourinary: Negative for dysuria, frequency, hematuria and urgency. Musculoskeletal: Negative for arthralgias, back pain and myalgias. Neurological: Negative for dizziness, syncope, light-headedness and headaches. Hematological: Bruises/bleeds easily. Psychiatric/Behavioral: Negative for agitation and confusion. Objective Temp: [36.7 C (98.1 F)-39.1 C (102.4 F)] 37.3 C (99.1 F ) Pulse: [56-70] 58 Resp: [18] 18 BP: (112-138)/(44-99) 112/44 SpO2: [98 %-100 %] 100 % O2 Therapy: Room air Intake/Output Summary (Last 24 hours) at 03/11/2020 1147 Last data filed at 03/11/2020 1000 Gross per 24 hour Intake 4178.99 ml Output 960 ml Net 3218.99 ml I/O last 3 completed shifts: In: 4426 [P.O.:1560; I.V.:1598.9; Blood:1017; IV Piggyback:250.1] Out: 750 [Urine:750] I/O this shift: In: 939.3 [P.O.:400; I.V.:484.2; IV Piggyback:55.1] Out: 210 [Urine:210] Last bowel movement: 03/11/20 Physical Exam Constitutional: She is oriented to person, place, and time. HENT: Head: Normocephalic and atraumatic. Mouth/Throat: Mucous membranes are moist. Oropharynx is clear. Cardiovascular: Normal rate, regular rhythm and normal pulses. Exam reveals no g allop and no friction rub. No murmur heard. Pulmonary/Chest: Effort normal. She has decreased breath sounds. She has wheezes in the right middle field and the left middle field. She has no rhonchi. She gutierrez s no rales. Abdominal: Normal appearance. Musculoskeletal: Right lower le+ Pitting Edema present. Left lower le+ Pitting Edema present. Neurological: She is alert and oriented to person, place, and time. Psychiatric: Her behavior is normal. Mood, judgment and thought content normal. Vitals reviewed. Total Days of Anti-infective Therapy: 5 Anti-infectives (From admission, onward) Start Dose/Rate Route Frequency Ordered Stop 03/11/201999 vancomycin (VANCOCIN) 1250 mg in NaCl 0.9 % 261 mL (premix) 1,250 mg 174 mL/hr over 90 Minutes Intravenous Every 24 hours 03/11/20 0848 03/14/20 195 9 03/11/20 0130 piperacillin-tazobactam (ZOSYN) IVPB 3.375 g (premix) 3.375 g 100 mL/hr over 0.5 Hours Intravenous Every 6 hours 03/10/20 1942 03/14/20 0129 03/07/20 0900 acyclovir (ZOVIRAX) capsule 400 mg 400 mg Oral Three Times Daily Standard 03/06/20 2348 03/17/20 0859 03/07/20 0900 fluconazole (DIFLUCAN) tablet 200 mg 200 mg Oral Daily Standard 03/06/20 2348 03/17/20 0859 Laboratory Data (Most Recent in Past 3 Days) Lab 03/10/20 0023 03/10/20 0900 03/11/20 0028 WBC 0.5* -- 0.4* HGB 6.3* -- 5.7* HCT 18.1* -- 16.5* MCV 88.1 -- 88.2 PLT 6* 19* 11* Lab 03/09/20 0004 03/10/20 0023 03/11/20 0028 NA 136 137 136 K 4.1 4.5 4.3 CL 111* 113* 114* BICARBONATE 18* 17* 16* GLUCOSE 86 100 114 BUN 50* 43* 42* CREATININE 1.53* 1.35* 1.39* Lab 03/09/20 0004 03/10/20 0023 03/11/20 0028 CALCIUM 7.9* 7.6* 7.4* MG 2.1 1.9 1.9 PHOS 2.8 3.0 2.7 Lab 03/09/20 1151 03/10/20 0023 03/11/20 0028 NEUTOPHILPCT 7 1 -- LYMPHOPCT 81 83 88 MONOPCT 1 2 2 EOSPCT 2 -- -- Lab 03/09/20 0004 PROT 4.7* ALBUMIN 2.6* AST 6 ALT <5 TBILI 0.5 ALKPHOS 72 Lab 03/09/20 0940 INR 1.26 CXR (03/10/20):FINDINGS: Tubes, catheters and devices: AICD on left. Right port catheter unchanged. Lungs: Prominent interstitial markings and peribronchial thickening suggesting reactive airway disease. No consolidation. Pleural space: No pleural effusion. No pneumothorax. Heart/Mediastinum: Cardiac silhouette enlarged. Calcified tortuous aorta. Bones/joints: Unremarkable. IMPRESSION: No acute infiltrate. Assessment/Plan Ms. Patricia Cotton is a 65 y.o. female with a medical history of CAD s/p 2 stent pr ocedures in 2009 and 2016, HTN, T2DM on insulin, HLD. COPD, CKD stage IV, and di verticulosis with an oncologic history of chronic myelomonocytic leukemia (CMML- 1) diagnosed in 2019. She presented at [facility] with complaints o f weakness and fatigue, and found to be severely pancytopenic. She was transferr ed to for further management and evaluation due to concern for progression of disease, and remains admitted for management of the following active problems. Active Problems: #CMML-1, not having achieved remission - Bone marrow biopsy on 03/07/20 was not consistent with transformation to AML - Patient has progressive CMML, seemingly worsening after switching to oral deci tabine-cedazuridine - Patient was started on IV Azacitidine yesterday (03/10/20, day 02/22) and is tole rating the chemo well with minimal subjective complaints - Requested pathology completed additional testing for PDGF-R mutation to determ ine if pt is candidate for Imatinib #Pancytopenia, requiring blood and platelet transfusions - Continue transfusion support (for HgB <7.0, platelets <10) - Most recent CBC on 03/11 revealed H/H of 5.7/16.5, receiving an additional unit this AM, platelets 11 - Got 1 unit platelets yesterday afternoon - Due to pts lack of response to transfusions, will check CBC bid and re-evaluat e for possible sources of bleeding (such as upper GI) - C/w Promacta #Neutropenic Fever - On 03/10, pt developed fever + rigors with Tmax of 102.4 - Pt is severely neutropenic: ANC 0.01, WBC 0.4 - NF gave Tylenol 2x 650 mg - Pt is currently afebrile (no fever since 1800 on 03/10) - BCx obtained, pending - UCx obtained, pending - MRSA culture pending - CXR showed no evidence of infiltrates or pneumonia - NF started patient on Zosyn and Vancomycin, will continue - Will tailor Abx as necessary based on results of cultures - C/w neutropenic precautions - C/w prophylactic Acyclovir and Fluconazole for viral and fungal coverage #Melena/Dark stools - FOBT (lower GI tract) negative on 03/07 - Pt previously was constipated and now is complaining of increased frequency of BMs and change in color to dark black/tar - FOBT, upper GI tract ordered, pending - Currently on Protonix 40 mg #Edema - Pt complaining of edema and b/l leg soreness, 2+ pitting edema on PEx - Pt has gained 7 kg since admission, likely 2/2 to fluid resuscitation, albumin low 2.6 - Started Lasix 40 mg daily (takes 40 mg bid at home) #CAD - Continue home dose of Coreg, Imdur #Hypertension - Continue home dose of Spironolactone - BP stable since admission (today 112/44) #CKD, stage IV - Creatinine stable since admission, today 1.39 - Continue to monitor BMP daily - Continue NS @100 mL/hr #COPD - No acute exacerbation; some mild wheezes on PE and pt complains of a cough POA - Saturating 100% on room air, no respiratory distress or dyspnea - Continue home tiotropium, PRN albuterol for wheezing #Type II Diabetes Mellitus - Per nursing and chart review, Lantus has not been given over the past 2 nights due to POC glucose <100 - POC glucose has been ranging between 74 - 135 over the past 2 days - D/c Lantus today - Continue insulin SSI, diabetic diet, and POC glucose DVT Prophylaxis: Contraindicated, thrombocytopenia GI Prophylaxis: PPi Reason: Risk for stress ulcers Functional Status: mildly impaired Code Status: DNR/DNI Disposition: Plan discharge to: Home Estimated Discharge Date: TBD The patient was discussed with Lisa Palumbo MD who agrees with the assessme nt and plan as noted above. Signature: Hayde Mcdowell AI Date/Time: March 11, 2020 11:47 AM Associated attestation - Lisa Palumbo MD - 03/11/2020 2:15 PM EST I have reviewed the notes, assessments, and/or procedures performed by Hayde chino, I personally saw and examined the patient this AM on rounds. I agree with her/his documentation of Patricia Cotton. Labs reviewed and discussed. Physician time spent 35 minutes > 50% face to face discussion of treatment plan * Apurva Guadalupe PharmD - 03/11/2020 8:49 AM EST Clinical Pharmacology - Therapeutic Drug Monitoring Interval History Patricia Cotton is a 65 y.o. female patient currently being treated with vancomycin, piperacillin-tazobactam, fluconazole, and acyclovir for neutropenic fever. Current Anti-microbials/Dosing Vancomycin pulse dosing Piperacillin-tazobactam 3.375g IV every 8 hours Fluconazole 200 mg by mouth daily Acyclovir 400 mg by mouth three times daily Drug Levels evaluated 03/11/2020 00:28 Vancomycin, Random 19.9 mcg/mL Labs/Clinical Factors Lab Results Component Value Date WBC 0.4 (LL) 03/11/2020 Lab Results Component Value Date CREATININE 1.39 (H) 03/11/2020 Temp Readings from Last 1 Encounters: 03/11/20 37.3 C (99.1 F) (Oral) Temp (24hrs), Av.4 C (99.4 F), Min:36.7 C (98.1 F), Max:39.1 C (102.4 F) Intake/Output Summary (Last 24 hours) at 03/11/2020 0849 Last data filed at 03/11/2020 0520 Gross per 24 hour Intake 4093.01 ml Output 750 ml Net 3343.01 ml No intake/output data recorded. Assessment Patient's current serum concentration is estimated to be within range to re-dose ~24 hours from patient's last vancomycin dose. Renal function appears stable, w ill start a standing regimen. Plan Pharmacy will start a standing regimen of vancomycin 1250 mg IV every 24 ho urs Pharmacy will continue to monitor, obtain levels, and make adjustments as c linically indicated Thank you, Apurva Guadalupe, Pharm. D * Sharmin Olmedo RN - 03/10/2020 7:43 PM EST Patient febrile. Notified covering MD. Cultures obtained. Antibiotics initiated. Tylenol given. Chest X-Ray completed. Will need to obtain urine sample. Report given to oncoming RN. * Sharmin Olmedo RN - 03/10/2020 4:10 PM EST Patricia Cotton received Azacitidine IV over 30 minutes. During the infusion, she received 100 ml of chemotherapy. Chemotherapy was infused via [facility] . Positi ve blood return was verified prior to and after the infusion. Following infusio n, maintenance IVF restarted. Patient tolerated infusion well with no reaction noted. Patient provided with education regarding medication received, side effe cts and symptom management. * Maryjane Baer DO - 03/10/2020 12:17 PM EST Hematology Oncology Inpatient Progress Note Subjective Patient seen and examined at bedside. No acute overnight events. Patient denies any bleeding. Denies fevers/chills. Review of Systems Constitutional: Negative for chills, fatigue and fever. HENT: Negative for trouble swallowing and voice change. Respiratory: Negative for cough, chest tightness and shortness of breath. Cardiovascular: Negative for chest pain and palpitations. Gastrointestinal: Negative for abdominal distention, abdominal pain, diarrhea, n ausea and vomiting. Genitourinary: Negative for difficulty urinating and dysuria. Skin: Negative for color change, rash and wound. Psychiatric/Behavioral: Negative for agitation, behavioral problems and confusio n. Objective Temp: [36.6 C (97.9 F)-37.6 C (99.7 F)] 37.1 C (98.8 F) Pulse: [53-74] 56 Resp: [16-18] 18 BP: (103-137)/(42-86) 114/50 SpO2: [96 %-100 %] 100 % O2 Therapy: Room air Intake/Output Summary (Last 24 hours) at 03/10/2020 1217 Last data filed at 03/10/2020 1200 Gross per 24 hour Intake 4195.49 ml Output 1000 ml Net 3195.49 ml I/O last 3 completed shifts: In: 4243 [P.O.:2070; I.V.:1862; Blood:311] Out: 1000 [Urine:1000] I/O this shift: In: 1186.4 [P.O.:600; I.V.:253.4; Blood:333] Out: - Physical Exam HENT: Mouth/Throat: Mucous membranes are moist. Eyes: Pupils are equal, round, and reactive to light. Cardiovascular: Normal rate and regular rhythm. No murmur heard. Pulmonary/Chest: Effort normal and breath sounds normal. No respiratory distress . She has no wheezes. She has no rales. Abdominal: Soft. Normal appearance. She exhibits no distension. There is no abdo trini tenderness. Neurological: She is alert. No cranial nerve deficit. Skin: Skin is warm and dry. Psychiatric: Her behavior is normal. Mood normal. Nursing note and vitals reviewed. Total Days of Anti-infective Therapy: 4 Anti-infectives (From admission, onward) Start Dose/Rate Route Frequency Ordered Stop 03/08/20 0900 levoFLOXacin (LEVAQUIN) tablet 250 mg 250 mg Oral Daily Standard 03/06/20 2348 03/18/20 0859 03/07/20 0900 acyclovir (ZOVIRAX) capsule 400 mg 400 mg Oral Three Times Daily Standard 03/06/20 2348 03/17/20 0859 03/07/20 0900 fluconazole (DIFLUCAN) tablet 200 mg 200 mg Oral Daily Standard 03/06/20 2348 03/17/20 0859 Laboratory Data (Most Recent in Past 3 Days) Lab 03/09/20 1151 03/10/20 0023 03/10/20 0900 WBC 0.6* 0.5* -- HGB 7.6* 6.3* -- HCT 21.7* 18.1* -- MCV 88.1 88.1 -- PLT 10* 6* 19* Lab 03/08/20 0230 03/09/20 0004 03/10/20 0023 NA 136 136 137 K 4.4 4.1 4.5 CL 111* 111* 113* BICARBONATE 20* 18* 17* GLUCOSE 137 86 100 BUN 67* 50* 43* CREATININE 1.52* 1.53* 1.35* Lab 03/08/20 0230 03/09/20 0004 03/10/20 0023 CALCIUM 7.9* 7.9* 7.6* MG 2.2 2.1 1.9 PHOS 3.5 2.8 3.0 Lab 03/07/20 2026 03/08/20 0230 03/09/20 1151 03/10/20 0023 NEUTOPHILPCT 1 2 7 1 LYMPHOPCT 74 78 81 83 MONOPCT 3 4 1 2 EOSPCT 3 2 2 -- Lab 03/08/20 0230 03/09/20 0004 PROT 4.6* 4.7* ALBUMIN 2.6* 2.6* AST <5 6 ALT <5 <5 TBILI 1.0 0.5 ALKPHOS 71 72 Lab 03/09/20 0940 INR 1.26 Assessment/Plan Ms. Patricia Cotton is a 65 y.o. female with past medical history of CAD, hypertensi on, type II diabetes mellitus, hypertension, CKD stage IV, CMML (currently on tr eatment with decitabine-cedazuridine with Dr. Carter in [place]), who presente d outside hospital with fatigue, found to have worsening pancytopenia and tra [facility] higher level of care. #CMML-1: -bone marrow not consistent with transformation to AML. Patient has progressive CMML, seemingly worsening after switching to oral decitabine-cedazuridine. -will plan to switch treatment to IV Azacitidine; chemotherapy teach and consent performed today and treatment plan entered to start today. -have also requested pathology to perform PDGF receptor gene rearrangement to d etermine if patient is a candidate for Gleevec. -continued transfusional support (hemoglobin 6.3 today, will transfuse 1 uPRBC) , platelet count 6,000 and received platelet transfusion with post transfusion p latelet count of 19,000. #Pancytopenia: -transfusional support as above -started promacta 03/09/20 #CAD: -will continue home dose of coreg, Imdur #Hypertension: -will continue home dose of spironolactone #CKD: -creatinine stable #COPD: -no acute exacerbation; continue tiotropium, prn albuterol #type II Diabetes mellitus: -continue lantus, SSI, diabetic diet DVT Prophylaxis: contraindicated, thrombocytopenia GI Prophylaxis: PPi Reason: Risk for stress ulcers Functional Status: mildly impaired Code Status: DNR/DNI Disposition: Plan discharge to: Home Estimated Discharge Date: to be determined The patient was discussed with Lisa Palumbo MD who agrees with the assessme nt and plan as noted above. Signature: Maryjane Baer DO Date/Time: March 10, 2020 12:17 PM Associated attestation - Lisa Palumbo MD - 03/10/2020 1:45 PM EST I have reviewed the notes, assessments, and/or procedures performed by Dr Baer , I concur with her/his documentation of Patricia Brodie Cotton. Patient seen examined and discussed. Labs reviewed. I discussed changing to IV azacitadine and she has agr eed. 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 States that she likes to walk and that it makes her feel better Pain: Patient has no complaints of pain currently. Pain Medication Today: no. OBJECTIVE General Observation: Pt sitting in recliner chair. Awake and alert. No chair alarm Labs: Hematrocrit = 21.7 Hemoglobin = 7.6 Platelets = 10 Vital Signs: Stable. Range of Motion:No change observed. Strength:functional for mobility / activity as described below. Skin Integrity Screen: visualized skin intact Functional Status: Transfers: sit to/from stand with close supervision for safety, and use of UEs for support on arms of chair. Used rolling walker for support in standing. Performed manu reps of sit-stand during this session. Bed Mobility: Not assessed. Locomotion/Wheelchair: Not assessed. Locomotion/Gait/Ambulation: Ambulated 125 feet, x 2 trials, with rolling walker and contact guard assist / verbal cues for safety (Verbal cues required at times for safety navigation due to visual deficits, as pt reports that she has cataracts that need to be removed). No loss of balance noted. Stairs: Not assessed. Outcome Measures: [facility]-PAC "6 Clicks" Basic Mobility Inpatient Short Form: Turning over in bed: Unable to perform (1) Sitting down on and standing up from a chair with arms: A little difficulty (3) Moving from lying on back to sitting on the side of the bed: A little difficulty (3) Moving to and from a bed to a chair (including a wheelchair): A little help (3) Walking in hospital room: A little help (3) Climbing 3-5 steps with a railing: A little help (3) Raw Score 16 /24. Interventions: Therapeutic Activities: Transfer Training: as described above. Instructed pt to use UEs for support on arms of chair (and avoid pushing / pulling on the walker), to promote safety and stability. Instructed pt to only stand with assist from staff to prevent fall / injury. Educated pt regarding the use of gait belt as a fall prevention strategy, and the risk for bleeding if she were to fall (low platelet count). Gait Training: as described above. Therapist provided contact guard assist for safety using gait belt. Occasional verbal cues provided to navigate safely around obstacles in the hallway due to visual deficits. Instructed pt to pace herself in terms of both ambulation speed and her respirations. Mild SOB reported with ambulation, however, oxygen sat = 100% on room air immediately following each ambulation trial Therapeutic Exercise: Instructed pt in bilat LE exercises in standing to promote strengthening for improved mobility: - heel raise x 15 reps - hip flexion x 15 reps - shallow squats x 15 reps - repeated sit-stands from chair Education: Mode of education provided: Explanation. Demonstration. Audience: Patient. Education Provided: LE exercises as described above. Importance of OOB and ambulating with nursing at least 3x/day, as tolerated . Response: Verbalized understanding. ASSESSMENT Response to Visit: Excellent participation and motivation in PT. Pt returned to recliner chair after this session. Call dean, phone, and tray table within reach. Pt agrees to call nursing for assist with mobility. Pain: Patient has no complaints of pain currently. Goal review: significantly increased ambulation distance today Changes in or Continuation of Plan of Care: Patient will benefit from continued therapy to achieve planned goals. PLAN Treatment Frequency, Duration and Interventions: Restorative Physical Therapy is recommended for 5x per week for 3 weeks Treatment is to include: Gait Training. Therapeutic Activity. Therapeutic Exercise. Neuromuscular Re-education. Equipment Provided: None issued this visit. Equipment Recommended: continue with rolling walker and gait belt Recommended Physical Therapy Follow Up: Upon acute care discharge, the following is currently recommended: Home Physical Therapy. Assist from as needed. Recommended Consults: None currently. Development of Plan of Care: Participants included: Patient. Visit Number: Today's visit is number 3 Program: Oncology (Therapist may be reached on [facility] Audio) SESSION: Duration: 38 CHARGES: - ORDER - Physical Therapy Treatment 1 Units 50080 - CHARGE - PT GAIT TRNG - 15 MIN 1 Units 12721 - CHARGE - PT THER EX - 15 MIN 2 Units 58875 - CHARGE - PT THERAPEUTIC ACTIVITIES - 15 MIN 0 Units - CANCER VISIT 1 Units Total treatment minutes: 38.00 Minutes Electronically Signed by: Gucci Alvarado PT, DPT, 03/09/2020 4:54:25 PM * Maryjane Baer, DO - 03/09/2020 10:26 AM EST Hematology Oncology Inpatient Progress Note Subjective Patient was seen and examined at the bedside this morning. There were no acute e vents overnight. She had no new complaints since yesterday's visit. She continue s to endorse pain associated with her canker sores and some difficulty eating an d drinking. She endorses some fatigue, but denies chest pain, dyspnea, or weakne ss. She had a BM yesterday that appeared dark, she did not endorse any ariane bl ood in the stool. Review of Systems Constitutional: Positive for fatigue. Negative for appetite change, chills and f ever. HENT: Positive for mouth sores. Negative for congestion and nosebleeds. Respiratory: Positive for wheezing. Negative for cough and shortness of breath. Cardiovascular: Positive for leg swelling. Negative for chest pain and palpitati ons. Gastrointestinal: Negative for abdominal pain, blood in stool, constipation, mariela rrhea, nausea and vomiting. Endocrine: Negative for cold intolerance and heat intolerance. Genitourinary: Negative for difficulty urinating, dysuria, hematuria and vaginal bleeding. Musculoskeletal: Negative for arthralgias, back pain and myalgias. Neurological: Negative for dizziness, light-headedness and headaches. Objective Temp: [36.5 C (97.7 F)-37.1 C (98.8 F)] 36.7 C (98.1 F) Pulse: [49-99] 59 Resp: [16] 16 BP: (98-138)/(49-56) 129/51 SpO2: [98 %-100 %] 99 % O2 Therapy: Room air Intake/Output Summary (Last 24 hours) at 03/09/2020 1026 Last data filed at 03/09/2020 0845 Gross per 24 hour Intake 4335.54 ml Output 780 ml Net 3555.54 ml I/O last 3 completed shifts: In: 4485.5 [P.O.:2240; I.V.:1904.5; Blood:341] Out: 980 [Urine:850; Stool:130] I/O this shift: In: 311 [Blood:311] Out: - Last bowel movement: 03/08/20 Physical Exam Constitutional: She is oriented to person, place, and time. She does not appear ill. No distress. HENT: Head: Normocephalic and atraumatic. Mouth/Throat: Mucous membranes are moist. Oropharynx is clear. Cardiovascular: Normal rate, regular rhythm and normal pulses. Exam reveals no g allop and no friction rub. No murmur heard. Pulmonary/Chest: Effort normal. No respiratory distress. She has wheezes. She gutierrez s no rhonchi. She has no rales. Abdominal: Soft. Bowel sounds are normal. She exhibits no distension. There is n o abdominal tenderness. There is no rebound and no guarding. Neurological: She is alert and oriented to person, place, and time. Skin: Skin is warm and dry. Bruising and petechiae noted. There is pallor. Located on the bilateral upper extremities, POA Psychiatric: Her behavior is normal. Mood, judgment and thought content normal. Total Days of Anti-infective Therapy: 3 Anti-infectives (From admission, onward) Start Dose/Rate Route Frequency Ordered Stop 03/08/20 0900 levoFLOXacin (LEVAQUIN) tablet 250 mg 250 mg Oral Daily Standard 03/06/20 2348 03/18/20 0859 03/07/20 0900 acyclovir (ZOVIRAX) capsule 400 mg 400 mg Oral Three Times Daily Standard 03/06/20 2348 03/17/20 0859 03/07/20 0900 fluconazole (DIFLUCAN) tablet 200 mg 200 mg Oral Daily Standard 03/06/20 2348 03/17/20 0859 Laboratory Data (Most Recent in Past 3 Days) Lab 03/08/20 0230 03/08/20 1137 03/09/20 0004 WBC 0.5* 0.7* 0.6* HGB 6.1* 7.2* 6.3* HCT 17.4* 20.7* 18.4* MCV 87.6 87.8 88.1 PLT 17* 17* 10* Lab 03/07/20 0047 03/08/20 0230 03/09/20 0004 NA 137 136 136 K 4.4 4.4 4.1 CL 107 111* 111* BICARBONATE 20* 20* 18* GLUCOSE 213* 137 86 BUN 82* 67* 50* CREATININE 1.51* 1.52* 1.53* Lab 03/08/20 0230 03/09/20 0004 CALCIUM 7.9* 7.9* MG 2.2 2.1 PHOS 3.5 2.8 Lab 03/07/20 1047 03/07/206 03/08/20 0230 NEUTOPHILPCT 3 1 2 LYMPHOPCT 87 74 78 MONOPCT 0 3 4 EOSPCT 1 3 2 Lab 03/07/20 0047 03/08/20 0230 03/09/20 0004 PROT 5.0* 4.6* 4.7* ALBUMIN 2.9* 2.6* 2.6* AST 6 <5 6 ALT 8 <5 <5 TBILI 0.6 1.0 0.5 ALKPHOS 80 71 72 Lab 03/09/20 0940 INR 1.26 Assessment/Plan Ms. Patricia Cotton is a 65 y.o. female with a medical history of CAD s/p 2 stent pr ocedures in 2009 and 2016, HTN, T2DM on insulin, HLD. COPD, CKD stage IV, and di verticulosis with an oncologic history of chronic myelomonocytic leukemia (CMML- 1) diagnosed in 2019. She presented at [facility] with complaints o f weakness and fatigue, and found to be pancytopenic with HgB 5.5, WBC 2.0, plat elets 5,ANC 4%, promyelocytes 1%, blasts 14%, smudge cell+2.She rece ived 1 unit RBCs and 1 unit platelets at OSH prior to transfer. She was transfer red to for further management and evaluation due to concern for transformatio n to AML, and remains admitted for management of the following active problems. 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 Carter in [place] ([facility]) - 04/03/19 BM biopsy at [facility]: mild increased bone marrow blasts (5%), favor C MML-1 - Decitabine therapy started on 05/09/2019 - Switched to Inqovl (Decitabine-Cedazuridine, oral medication) on 12/2019, most recent cycle started on 02/20/2020 - Concern for AML transformation given rising blast % in peripheral blood (14% a t OSH) - Per discussion with path: preliminary peripheral smear showing ~9% blasts - Pt underwent bone marrow biopsy yesterday, hematopathology report pending #Anemia #Thrombocytopenia #Need for blood and platelet transfusions - Repeat CBC 03/09/2020 @0004: H/H 6.3/18.4 , platelets 10, MCV 88.1 - Currently being transfused with an additional unit RBCs this AM, repeat CBC or dered for this afternoon (~1200) - At , patient has received 5 units RBCs, 2 units platelets in total - No additional transfusion reactions have been noted since 03/07 - No current source of bleeding identified - CT abdomen/pelvis (03/08) negative for acute bleeding - FOBT negative on 03/07 - No evidence of active hemolysis: LDH mildly elevated, Haptoglobin normal - Reticulocyte count low, 0.3% suggesting inadequate bone marrow production - Folate and B12 ordered, pending - Chronic DIC picture unlikely given normal fibrinogen (386), PTT, PT and INR el evated, but stable since admission - Will continue to transfuse platelets and RBCs as needed (if HgB <7.0 and platelets <10) - Will repeat CBC this afternoon to assess response to transfusion - Will continue to closely monitor CBC while awaiting definitive diagnosis #Neutropenia - CBC : severe neutropenia WBC 0.5, ANC 0.01, 8% blasts - WBC today 0.6 - Likely secondary to progression of leukemic disease - Pt underwent bone marrow biopsy on 03/07/20, results pending - C/w neutropenic PPx withacyclovir, fluconazole, Levaquin - C/w neutropenic precautions and diet #Melena/Dark stools #Constipation - Per pt and chart review, dark/black stools started at the same time as chemoth erapy initiation - Likely secondaryto severe thrombocytopenia s/p two units of platelets - FOBT at OSH was positive -FOBT negative 03/07/20 - Pt reports BM yesterday afternoon that was dark in color, but no ariane blood - C/w bowel regimen (colace+ miralax) as needed for constipation #CAD s/p stenting #status post pacemaker - Continue homepravastatin 40 mg - Chest x-ray revealed pacemaker in place #Hypertension #Hyperlipidemia -Continuehome on carvedilol, spironolactone, amlodipine - Hold Lasix due to LA #Type 2 diabetes - At home on sliding scale insulin, takes 30 units at night - Continue sliding scale insulin - Glucose 86 today - Continue POC glucose monitoring #COPD -Pt reports hoarseness and some cough related to her COPD - No acute respiratory distress, dyspnea or signs of acute exacerbation - Saturating at 97% on room air - Decreased breath sounds present on PEx - Continue home Tiotropium - Started PRN Albuterol #LA #CKD stage IV #Atrophic left kidney - Creatininetoday 1.53, stable since admission - Unclear what patient's baseline Cr given CKD Stage IV -Continue to hold home Lasix - Avoid nephrotoxic medications - Continue fluids, NS @ 100 mL/hr #Heat/cold intolerance, present on admission - No history of thyroid disease - TSH mildly elevated at 5.7, T3 low at 1.41, T4 normal - Pt is currently asymptomatic - No further evaluation needed at this time given pt is asymptomatic and previou s labs have shown mild elevations in TSH - Possibly sick euthyroid related to chronic illness DVT Prophylaxis: Held, given severe thrombocytopenia GI Prophylaxis: PPi Reason: Risk for stress ulcers Functional Status: moderately impaired Code Status: DNR/DNI Disposition: Plan discharge to: Home Estimated Discharge Date: TBD Patient was seen and discussed with the attending physician, Dr. Palumbo, and doctors hospital inpatient Hematology team. Signature: Hayde Mcdowell AI Date/Time: March 09, 2020 10:26 AM Reviewed note written by OSIRIS above, not edited. Additional anemia workup today. A waiting final results of bone marrow. Patient seen and discussed with Dr. Palumbo. Associated attestation - Lisa Palumbo MD - 03/09/2020 11:40 AM EST I have reviewed the notes, assessments, and/or procedures performed by Dr Baer I concur with her/his documentation of Patricia Cotton. Patient seen examined and d iscussed. LAbs reviewed. BM biopsy reviewed with pathology Additional trace olmstead. 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 Pain: Patient currently complains of pain. Location: R posterior pelvic region (s/p bone marrow biopsy 03/07) . Patient describes pain as Nonspecific. Verbal Scale: Patient reports a pain level of 1 out of 10. Pain Medication Today: no. OBJECTIVE General Observation: Pt in bed resting. R chest port. No bed alarm. Labs: Hematocrit = 20.7 Hemoglobin = 7.2 Platelets = 17 Skin Integrity Screen: visualized skin intact Vital Signs: Stable. HR = 55 Oxygen saturation = 100% (room air Functional Status: Gait belt used for safety during this session. Transfers: sit to/from stand with contact guard assist for safety. Bed Mobility: supine to sitting independently. Locomotion/Gait/Ambulation: Ambulated 70 feet x 1, with contact guard assist for safety. No loss of balance. Moves slowly / cautiously. Wide base of support. One brief (20 second) standing rest break during this distance. Stairs: Not assessed. Outcome Measures: [facility]-PAC "6 Clicks" Basic Mobility Inpatient Short Form: Turning over in bed: Unable to perform (1) Sitting down on and standing up from a chair with arms: A little difficulty (3) Moving from lying on back to sitting on the side of the bed: No difficulty (4) Moving to and from a bed to a chair (including a wheelchair): A little help (3) Walking in hospital room: A little help (3) Climbing 3-5 steps with a railing: Total assistance (1) Raw Score 15 /24. Interventions: Gait Training: as described above. Instructed pt to move slowly / cautiously, and to rest as needed. No loss of balance noted, but wide base of support identified. Discussed potential use of rolling walker during times when pt may feel weaker / more fatigued, and pt agrees that this may be useful. Rolling walker was ordered from Equipment and delivered to the room. Also instructed pt regarding use of gait belt as a fall prevention measure, especially considering her low platelet count (and risk for bleeding if she were to fall). Pt with mild SOB with ambulation, howeer, oxygen saturation = 98% and HR = 78 immediately following this ambulation trial. Therapeutic Exercise: Instructed pt in bilat LE exercises in sitting to promote strengthening, ROM, and circulation: - ankle pumps, 2 sets x 15 reps each - long arc quads, 2 sets x 15 reps each - hip flexion x 15 reps Therapist provided verbal cues / demonstration to promote proper technique. Therapeutic Activities: Therapist monitored HR and oxygen saturation during this session (see details above). Instructed pt to pause briefly after all mobility transitions (i.e. supine to sitting; sitting to standing) to be sure that she wasn't lightheaded / dizzy prior to progressing further. She agrees with this, and denies any symptoms Education: Mode of education provided: Explanation. Demonstration. Audience: Patient. Education Provided: LE exercises as described above. . Response: Applied knowledge. Educated pt regarding the role of acute PT, and the importance of ambulating with staff several times daily (as tolerated), to prevent further deconditioning - she acknowledged an understanding. ASSESSMENT Response to Visit: Pt was very pleasant and cooperative. She admits to feeling tired after this session. Sitting on the edge of the bed per her preference, with tray table in front of her (call dean within reach). Nursing present and indicates that bed alarm isn't necessary (difficult to set with pt in this position), as pt calls appropriately - pt agrees. Pain: Yes, pain is unchanged from start of today's treatment. PLAN Treatment Frequency, Duration and Interventions: Restorative Physical Therapy is recommended for 5x per week for 3 weeks Treatment is to include: Gait Training. Neuromuscular Re-education. Therapeutic Activity. Therapeutic Exercise. Physical Performance Test. Self Care/Home Management. Patient/family/professionals conference. Recommended Physical Therapy Follow Up: Upon acute care discharge, the following is currently recommended: Anticipate that pt will be able to d/c home with support from family. May benefit from Home PT, but we will make more definitive recommendations as d/c nears. Equipment Provided: None issued this visit. Visit Number: Today's visit is number 2 Program: Oncology (Therapist may be reached on [facility] Audio) SESSION: Duration: 24 CHARGES: - ORDER - Physical Therapy Treatment 1 Units 81920 - CHARGE - PT GAIT TRNG - 15 MIN 1 Units 83847 - CHARGE - PT THER EX - 15 MIN 1 Units - CANCER VISIT 1 Units Total treatment minutes: 24.00 Minutes Electronically Signed by: Gucci Alvarado PT, DPT, 03/08/2020 2:11:54 PM * Maryjane Baer, DO - 03/08/2020 11:29 AM EST Hematology Oncology Inpatient Progress Note Subjective Patient was seen and examined at the bedside this morning. Overnight, the patie nt had a transfusion reaction while receiving her 3rd unit of RBCs, she states t hat she developed severe rigors and malaise at the time of the transfusion, that resolved within the next couple hours with tylenol and benadryl. She states srinivas t she has never had a transfusion reaction before. She was currently receiving a n additional unit of RBCs at the time of the visit this AM and was currently asy mptomatic. She denies any symptomatic anemia, including chest pain, dyspnea, sig nificant fatigue or weakness. Pt states that she has not had a BM since last Thursday and complains of some as sociated abdominal distention, but denies pain. She complains of canker sores in her mouth, present on admission that interfere with her ability to eat and drin k. Review of Systems Constitutional: Negative for chills, fatigue and fever. HENT: Positive for mouth sores and postnasal drip. Negative for rhinorrhea. Canker sores on the upper gums. Eyes: Negative for visual disturbance. Respiratory: Negative for cough, shortness of breath and wheezing. Cardiovascular: Negative for chest pain, palpitations and leg swelling. Gastrointestinal: Positive for abdominal distention and constipation. Negative f or abdominal pain, blood in stool, diarrhea, nausea and vomiting. Musculoskeletal: Negative for arthralgias, back pain and myalgias. Neurological: Negative for dizziness, weakness, light-headedness and headaches. Hematological: Bruises/bleeds easily. Psychiatric/Behavioral: Negative for agitation and confusion. Objective Temp: [36.5 C (97.7 F)-38 C (100.4 F)] 36.5 C (97.7 F) Pulse: [61-89] 61 Resp: [16-22] 16 BP: (98-170)/(40-82) 108/56 SpO2: [97 %-100 %] 100 % O2 Therapy: Room air Intake/Output Summary (Last 24 hours) at 03/08/2020 1131 Last data filed at 03/08/2020 1116 Gross per 24 hour Intake 4855.85 ml Output 300 ml Net 4555.85 ml I/O last 3 completed shifts: In: 4669.1 [P.O.:1440; I.V.:1754.1; Blood:1475] Out: 100 [Urine:100] I/O this shift: In: 880.8 [P.O.:520; I.V.:19.8; Blood:341] Out: 200 [Urine:200] Last bowel movement: None Physical Exam Constitutional: She is oriented to person, place, and time. She does not appear ill. No distress. HENT: Head: Normocephalic and atraumatic. Mouth/Throat: Mucous membranes are moist. Oral lesions present. Oropharynx is cl ear. Cardiovascular: Normal rate, regular rhythm and normal pulses. No murmur heard. Pulmonary/Chest: Effort normal. She has decreased breath sounds. She has no whee zes. She has no rhonchi. She has no rales. Abdominal: Soft. Normal appearance and bowel sounds are normal. She exhibits dis tension. There is no abdominal tenderness. There is no rebound and no guarding. Musculoskeletal: Right lower le+ Pitting Edema present. Left lower le+ Pitting Edema present. Neurological: She is alert and oriented to person, place, and time. Skin: Skin is warm and dry. Bruising noted. Diffuse bruising and petechiae of upper extremities, present on admission. Total Days of Anti-infective Therapy: 2 Anti-infectives (From admission, onward) Start Dose/Rate Route Frequency Ordered Stop 03/08/20 0900 levoFLOXacin (LEVAQUIN) tablet 250 mg 250 mg Oral Daily Standard 03/06/20 2348 03/18/20 0859 03/07/20 0900 acyclovir (ZOVIRAX) capsule 400 mg 400 mg Oral Three Times Daily Standard 03/06/20 2348 03/17/20 0859 03/07/20 0900 fluconazole (DIFLUCAN) tablet 200 mg 200 mg Oral Daily Standard 03/06/20 2348 03/17/20 0859 Laboratory Data (Most Recent in Past 3 Days) Lab 03/07/20 1745 03/07/20202503/08/20 0230 WBC -- 0.8* 0.5* HGB -- 6.0* 6.1* HCT -- 17.4* 17.4* MCV -- 89.6 87.6 PLT 28* 26* 17* Lab 03/07/20 0047 03/08/20 0230 NA 137 136 K 4.4 4.4 CL 107 111* BICARBONATE 20* 20* GLUCOSE 213* 137 BUN 82* 67* CREATININE 1.51* 1.52* Lab 03/08/20 0230 CALCIUM 7.9* MG 2.2 PHOS 3.5 Lab 03/07/20 1047 03/07/20202503/08/20 0230 NEUTOPHILPCT 3 1 2 LYMPHOPCT 87 74 78 MONOPCT 0 3 4 EOSPCT 1 3 2 Lab 03/07/20 00403/08/20 0230 PROT 5.0* 4.6* ALBUMIN 2.9* 2.6* AST 6 <5 ALT 8 <5 TBILI 0.6 1.0 ALKPHOS 80 71 Lab 03/07/20 1047 INR 1.32 Assessment/Plan Ms. Patricia Cotton is a 65 y.o. female with a medical history of CAD s/p 2 stent pr ocedures in 2009 and 2016, HTN, T2DM on insulin, HLD. COPD, CKD stage IV, and di verticulosis with an oncologic history of chronic myelomonocytic leukemia (CMML- 1) diagnosed in 2019. She presented at [facility] with complaints o f weakness and fatigue, and found to be pancytopenic with HgB 5.5, WBC 2.0, plat elets 5, ANC 4%, promyelocytes 1%, blasts 14%, smudge cell+2.She receive d 1 unit RBCs and 1 unit platelets at OSH prior to transfer. She was transferred to for further management and evaluation due to concern for transformation t o AML, and remains admitted for management of the following active problems. 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 Carter in [place] ([facility]) - 04/03/19 BM biopsy at [facility]: mild increased bone marrow blasts (5%), favor C MML-1 - Decitabine therapy started on 05/09/2019 - Switched to Inqovl (Decitabine-Cedazuridine, oral medication) on 12/2019, most recent cycle started on 02/20/2020 - Concern for AML transformation given rising blast % in peripheral blood (14% a t OSH) - CBC with diff today significant for 8% blasts - Pt underwent bone marrow biopsy yesterday, results pending #Anemia #Thrombocytopenia #Need for blood and platelet transfusions - Repeat CBC 03/08/2020 @0230: H/H 6.1/17.4, platelets 17, - Currently being transfused with an additional unit RBCs this AM, repeat CBC or dered for this afternoon - At , patient has received 4 units RBCs, 2 units platelets in total - Pt developed rigors, fever and tachycardia after a transfusion of RBCs on 03/07, consistent with an acute febrile non-hemolytic reaction per clinical pathol ogy evaluation (no evidence of hemolysis, re-typing of pre and post transfusion samples were O positive) - Treated with tylenol + benadryl, symptoms resolved - Can contact transfusion medication attending (blood bank) if pt develops repea daron severe reactions - No further symptoms at this time - No current source of bleeding identified - CT abdomen/pelvis (03/08) negative for acute bleeding, showed extensive diverti culosis throughout the colon - No evidence of active hemolysis: LDH mildly elevated, Haptoglobin normal - Will continue to transfuse platelets and RBCs as needed - Will repeat CBC this afternoon to assess response to transfusion #Neutropenia - CBC 03/08/2020 @0230 showed: severe neutropenia WBC 0.5, ANC 0.01, 8% blasts - Likely secondary to progression of leukemic disease - Pt underwent bone marrow biopsy on 03/07/20, results pending - C/w neutropenic PPx with acyclovir, fluconazole, Levaquin - C/w neutropenic precautions and diet #Melena/Dark stools #Constipation - Per pt and chart review, dark/black stools started at the same time as chemoth erapy initiation - Likely secondary to severe thrombocytopenia s/p two units of platelets - FOBT at OSH was positive - FOBT ordered, pending - Pt has not had a BM since admission, unlikely a GI source of bleeding - Bowel regimen (colace+ miralax) ordered for constipation #CAD s/p stenting #status post pacemaker - Continue home pravastatin 40 mg - Chest x-ray revealed pacemaker in place #Hypertension #Hyperlipidemia - Continue home on carvedilol, spironolactone, amlodipine - Hold Lasix due to LA #Type 2 diabetes - At home on sliding scale insulin, takes 30 units at night - Started sliding scale insulin,continue monitoring glucose - Glucose 137 today, POC glucose reading trending down since admission - Continue POC glucose monitoring #COPD - Pt reports hoarseness and some cough related to her COPD - No acute respiratory distress, dyspnea or signs of acute exacerbation - Saturating at 97% on room air - Decreased breath sounds present on PEx - Continue home Tiotropium - Started PRN Albuterol #LA #CKD stage IV #Atrophic left kidney - Creatinine today 1.52, stable - Unclear what patient's baseline Cr given CKD Stage IV - Continue to hold home Lasix - Avoid nephrotoxic medications - Continue fluids, NS @ 100 mL/hr #Heat/cold intolerance, present on admission - No history of thyroid disease - TSH mildly elevated at 5.7, T3 low at 1.41, T4 normal - Pt is currently asymptomatic - Consider endocrine consult for further evaluation DVT Prophylaxis: Currently held 2/2 severe thrombocytopenia GI Prophylaxis: PPi Reason: Risk for stress ulcers Functional Status: moderately impaired Code Status: DNR/DNI Disposition: Plan discharge to: Home Estimated Discharge Date: TBD Patient seen and discussed with Dr. Palumbo and the [facility]. Signature: Hayde Mcdowell AI Date/Time: March 08, 2020 11:31 AM Reviewed AI note above, not edited. Awaiting bone marrow biopsy results. Persistent anemia, not appropriately respon sive to transfusion. LDH/haptoglobin unremarkable and unlikely to be hemolysis. CT scan of the abdomen was obtained to rule out a retroperitoneal bleed, which w as unremarkable. Was FOBT + at outside hospital however has not been moving rina ls here and thus unlikely to be a significant GI bleed. Will continue to monito r counts closely as we await diagnostics. Patient seen and discussed with Dr. Palumbo. Maryjane Baer DO PGY5 Hematology/Oncology Fellow Associated attestation - Lisa Palumbo MD - 03/08/2020 1:40 PM EST I have reviewed the notes, assessments, and/or procedures performed by Dr Baer I concur with her/his documentation of Patricia Cotton. Patient seen examined and d iscussed. LAbs reviewed. * Sanam Sam RN - 03/08/2020 10:21 AM EST Pt is a transfer from [facility], report received form previous CM SMariel Angelo RN CM * Hortensia Angelo RN - 03/08/2020 9:33 AM EST Case Management Screen & Assessment Patient Name: Patricia Cotton Gender: female Date of : 1955 Admission Dx: acute leukemia CML (chronic myelocytic leukemia) Age: 65 y.o. Admission: 03/06/2020 10:19 PM Attending Provider: Lisa Palumbo MD High Risk Criteria - Prior to Admission/Upon Arrival [place]-Type of Residence: Private Residence [place]- Home Care Services: No Limited Home Supports/Lives Alone?: No Multi trauma/Critical care/Step down admit?: No Head/Spinal cord injury?: No Self Pay: No Multiple ED visits?: No Related/Unplanned readmission within 30 days?: No Complex/New medical issues: n/v diarrhea Relevant comorbidities: CML, CAD, HTN, DM, HLD, COPD Func/Cognitive/Behavorial deficit(s): Patient is independnet with a rolling walk er Psychosocial considerations: Patient lives at home with her spouse - he assists as needed Screening Outcome Further Case Management Needs?: Case Management Needs Chart Review PCP Verified?: Patient has PCP Prior to Admission: Functional/Environmental Assessment Bathing: Independent Dressing: Independent Toileting: Independent Medication administration: Independent Transfers: Unable to assess Ambulation: Unable to assess Meal preparation: Unable to assess Number of stairs into home: 0(elevator) Durable Medical Equipment (DME): Walker, Wheelchair-manual Case Management Re-Review Case Management Re-Review Needed?: Yes Case Management Re-Review Date: 03/09/20 Discharge Planning Living Arrangements: Spouse/significant other Support Systems: Spouse/significant other Type of Residence: Private residence Is this patient appropriate for transfer to [facility]?: No Patient expects to be discharged to:: home with home care services Patient/Agent informed of choice and given written list?: Patient/agent accepted list Actual discharge location : Home-With Homecare Services Does the patient need discharge transport arranged?: No Note: Chart reviewed. Patient was admitted with n/v and diarrhea Patient has a PMH of CML. Patient lives at home with her spouse - patient has b een independent with a rolling walker - spouse is very supportive. Patient live s in senior housing has a elevator. Patient has in agreement to a home care ref erral - launched to [facility]. Report given to [facility] who will follo w for discharge needs. Hortensia Angelo * Britt Pagan RN - 03/07/2020 4:50 PM EST Pt's hgb at 1100 was 6.3 and plt was 10. One unit of prbcs and plts were ordered . Pt had tylenol earlier this afternoon for a headache of 2/10. Pt states that h er headache has resolved. Platelets are currently transfusing via port, with an excellent blood return. Report was given to Feliz JIMÉNEZ on 10H. Pt was transferred at 1650 with her belongings. * Kay Dwayne A - 03/07/2020 2:50 PM EST Spiritual Care Progress Note Vice President Of Contracts: Rev. Louis Villanueva Vice President Of Contracts Chemist Physical Patient Name: Patricia Cotton Age: 65 y.o. Sex: female Room/Bed: 15744/1 Maya Affiliation/Tradition: Caodaism Admit Date: 03/06/2020 Referrals: Referral From: Brandy On Unit Referral To: Vice President Of Contracts Chemist Physical Contact Information: Teo Spiritual Care Assessment Spouse/Significant Other Name/Relationship: None Assessed Need for Visit: Adjustment/Coping Issues Patient Description: Calm, Accepting, At Peace, Dealing with Decision Making, F rustrated Spiritual/Cultural/Social Issues Assessment: I visited Patricia Cotton while faith chavez on the 10 E as a Vice President Of Contracts Chemist Physical assigned to the unit. Patricia was in bed [facility] and her nurse was working with her. She was admitted to the hospital for Hadoop Analyst dina myelocytic leukemia and she receiving oncology treatment. She shares her sto ry with me that she is . Lately, she been complaining weakness and fatigu e. She just receive bone marrow transplant she is also dealing with other health issues that she needs to make decision one way or the other. She received suppo rt from her Juwan. She is a Caodaism woman and trust that God will spea k on her behalf. She find solace in prayer and requested prayer for her health. I gave her Word of Hope and ended the visit with prayer. Spiritual Care remains available as needed or requested for spiritual support throughout this hospitali zation. Spiritual Care Intervention: Identify/Encourage Coping, Pastoral Touch, Prayer, Spiritual Companionship, Supportive Listening Spiritual Outcomes - Patient: Expressed feelings, [place] comforted, accompanied, Identified spiritual strengths, Pastoral relationship established, Processed lif e story Spiritual Outcomes - Family: Not available for assessment Spiritual Care Plan Goals of Care: To assess spiritual care needs and hopes and mobilize spiritual r esources for patients/families/caregivers that support/enhance quality of life r elated to hospitalization. Outcome: gradually improving Spiritual Care Follow Up Patient Follow-up Plan: Routine visit Family Follow-up Plan: No contact made at this time Associated attestation - Feliciano Capellan - 03/08/2020 8:11 PM EST Chart note reviewed. Rev. Feliciano Capellan MDIV, [facility], [place] Vice President Of Contracts District Administrator * Adama Baerkraig Mcguire, - 03/07/2020 12:56 PM EST Hematology Oncology Inpatient Progress Note Subjective Patient was seen and examined at the bedside this morning. There were no acute e vents overnight. The patient complains of some weakness and fatigue, but overall feels improved since being admitted. She also complains of persistent trouble w ith bowel movements, including diarrhea, constipation, and dark/black stools. Sh e states that her bowel movements have been abnormal since she started the chemo therapy. She also complains of mouth sores and some non-productive cough. Review of Systems Constitutional: Positive for fatigue. Negative for appetite change, chills, diap horesis and fever. HENT: Positive for mouth sores and postnasal drip. Negative for congestion and r hinorrhea. Complains of hoarseness. Respiratory: Positive for cough. Negative for chest tightness, shortness of irma th and wheezing. Cardiovascular: Positive for leg swelling. Negative for chest pain and palpitati ons. Gastrointestinal: Positive for blood in stool. Negative for abdominal pain, cons tipation, diarrhea, nausea and vomiting. Reports black/tarry appearance of stools, no ariane blood. Has not had a BM since admission. Genitourinary: Negative for difficulty urinating and dysuria. Musculoskeletal: Negative for arthralgias and back pain. Neurological: Negative for dizziness, syncope and light-headedness. Hematological: Bruises/bleeds easily. Psychiatric/Behavioral: Negative for agitation. Objective Temp: [36.5 C (97.7 F)-36.8 C (98.2 F)] 36.5 C (97.7 F) Pulse: [71-94] 77 Resp: [20-24] 20 BP: (100-128)/(38-57) 110/54 SpO2: [97 %-100 %] 97 % O2 Therapy: Room air Intake/Output Summary (Last 24 hours) at 03/07/2020 1257 Last data filed at 03/07/2020 0905 Gross per 24 hour Intake 694 ml Output Net 694 ml No intake/output data recorded. I/O this shift: In: 694 [P.O.:400; Blood:294] Out: - Last bowel movement: None Physical Exam Constitutional: She is oriented to person, place, and time. She does not appear ill. No distress. HENT: Head: Normocephalic and atraumatic. Mouth/Throat: Mucous membranes are dry. Oropharynx is clear. Cardiovascular: Normal rate, regular rhythm, normal heart sounds and normal puls es. No murmur heard. Pulmonary/Chest: Effort normal. She has decreased breath sounds. She has no whee zes. She has no rhonchi. She has no rales. Abdominal: Soft. Bowel sounds are normal. She exhibits no distension. There is n o abdominal tenderness. There is no guarding. Musculoskeletal: Right lower leg: Edema present. Left lower leg: Edema present. Comments: 1+ pitting edema in the b/l lower extremities. Neurological: She is alert and oriented to person, place, and time. Skin: Skin is warm and dry. Psychiatric: Her behavior is normal. Mood, judgment and thought content normal. Nursing note and vitals reviewed. Total Days of Anti-infective Therapy: 1 Anti-infectives (From admission, onward) Start Dose/Rate Route Frequency Ordered Stop 03/08/20 09 levoFLOXacin (LEVAQUIN) tablet 250 mg 250 mg Oral Daily Standard 03/06/20 2348 03/18/20 0859 03/07/20 0900 acyclovir (ZOVIRAX) capsule 400 mg 400 mg Oral Three Times Daily Standard 03/06/20 2348 03/17/20 0859 03/07/20 0900 fluconazole (DIFLUCAN) tablet 200 mg 200 mg Oral Daily Standard 03/06/20 2348 03/17/20 0859 Laboratory Data (Most Recent in Past 3 Days) Lab 03/07/20 0047 03/07/20 1047 WBC 1.3* 1.2* HGB 5.9* 6.3* HCT 17.0* 18.0* MCV 88.4 87.6 PLT 12* 10* Lab 03/07/20 0047 NA 137 K 4.4 CL 107 BICARBONATE 20* GLUCOSE 213* BUN 82* CREATININE 1.51* Lab 03/07/20 0047 CALCIUM 8.1* Lab 03/07/20 0047 PROT 5.0* ALBUMIN 2.9* AST 6 ALT 8 TBILI 0.6 ALKPHOS 80 Lab 03/07/20 1047 INR 1.32 Assessment/Plan Ms. Patricia Cotton is a 65 y.o. female with a medical history of CAD s/p 2 stent pr ocedures in 2009 and 2016, HTN, T2DM on insulin, HLD. COPD, CKD stage IV, and di verticulosis with an oncologic history of chronic myelomonocytic leukemia (CMML- 1) diagnosed in 2019. She presented at [facility] with complaints o f weakness and fatigue, and found to be pancytopenic with HgB 5.5, WBC 2.0, plat elets 5, ANC 4%, promyelocytes 1%, blasts 14%, smudge cell+2. She received 1 un it RBCs and 1 unit platelets at OSH prior to transfer. She was transferred to for further management and evaluation due to concern for transformation to AML, and remains admitted for management of the following active problems. Active Problems: #CMML-1 Possible AML transformation Thrombocytopenia Neutropenia Anemia - CMML-1 diagnosed in 2019 - Follows with Dr. Carter in [place] ([facility]) - 04/03/19 BM biopsy at [facility]: mild increased bone marrow blasts (5%), favor C MML-1 - Decitabine therapy started on 05/09/2019 - Switched to Inqovl (Decitabine-Cedazuridine, oral medication) on 12/2019, most recent cycle started on 02/20/2020 - Concern for AML transformation given rising blast % in peripheral blood (14% a t OSH) - CBC 03/07/20 @0047: H/H of 5.9/17.0, platelets 10 given 1 u RBCs and 1 unit wayne telets overnight - Repeat CBC @1047: H/H 6.3/18.0, platelets 12, will receive additional unit RBCs and platelets today - Repeat CBC w/ diff ordered for 1800 - Pt underwent bone marrow biopsy today, results pending - C/w neutropenic PPx with acyclovir, fluconazole, Levaquin - C/w neutropenic precautions and diet #Melena/Dark stools - Per pt and chart review, dark/black stools started at the same time as chemoth erapy initiation - Likely secondary to severe thrombocytopenia - Pt to receive 2 units platelets today - FOBT at OSH was positive - FOBT ordered, pending #CAD s/p stenting #status post pacemaker - Continue home pravastatin 40 mg - Chest x-ray revealed pacemaker in place #Hypertension #Hyperlipidemia - Continue home on carvedilol, spironolactone, amlodipine - Hold Lasix due to LA #Type 2 diabetes - At home on sliding scale insulin, takes 30 units at night - Started sliding scale insulin, continue monitoring glucose - Glucose elevated today 213 - Continue POC glucose monitoring #COPD - Pt reports hoarseness and some cough related to her COPD - No acute respiratory distress, dyspnea or signs of acute exacerbation - Saturating at 97% on room air - Decreased breath sounds present on PEx - Continue home Tiotropium - Started PRN Albuterol #LA #CKD stage IV #Atrophic left kidney - Creatinine today 1.51, trending down - Continue to hold home Lasix - Avoid nephrotoxic medications - Continue fluids, NS @ 100 mL/hr #Heat/cold intolerance, present on admission - No history of thyroid disease - TSH mildly elevated at 5.7, T3 low at 1.41, T4 normal - Consider endocrine consult for further evaluation DVT Prophylaxis: Currently held secondary to thrombocytopenia GI Prophylaxis: PPi Reason: Risk for stress ulcers Functional Status: moderately impaired Code Status: DNR/DNI Disposition: Plan discharge to: Home Estimated Discharge Date: TBD Signature: Hayde Mcdowell AI Date/Time: March 07, 2020 12:57 PM Reviewed above note written by OSIRIS, not edited. Pancytopenic, requiring transfusional support. Concern for transformation to AML . Bone marrow biopsy performed today. Patient seen and discussed with Dr. Castellanos. Maryjane Baer DO PGY5 Hematology/Oncology Fellow Associated attestation - Gladys Castellanos MD - 03/07/2020 2:37 PM EST I saw and evaluated the patient with the resident. I discussed findings and wayne n and I agree with documentation by the resident. Results of bone marrow biopsy pending. Continuing with transfusion support. * Britt Pagan, RN - 03/07/2020 9:40 AM EST Pt received one unit of prbcs for a hgb of 5.9. The prbcs were transfused via po rt, with an excelellent blood return. Pt tolerated transfusion well and had no s /s reaction. Pt will have a CBC drawn at 1100. * Jak Harden RN - 03/07/2020 2:17 AM EST If wound was present on admission, this documentation was sent to attending prov ider for cosignature. documented in this encounter H&P Notes * Bob Vidales MD - 03/13/2020 12:07 PM EST PRESEDATION ASSESSMENT Diagnosis: Pre-Sedation Assessment Chief Complaint/History of Present Illness: GI bleeding possibly small bowel bas ed on nuclear study Past Medical/Surgical History: Past Medical History: Diagnosis Date Asthma Blood transfusion without reported diagnosis Cancer CHF (congestive heart failure) COPD (chronic obstructive pulmonary disease) Diabetes mellitus Hypertension Past Surgical History: Procedure Laterality Date CARDIAC SURGERY Problems with Sedation/Anesthesia? no Potential Drug/Sedative Interaction? no Family History: family history includes Asthma in her sister; Cancer in her moth er; Dementia in her brother; Diabetes in her father and sister; Heart attack in her father. Review of Systems: No fevers or chills, usual state of health Current Medications: Medications Prior to Admission Medication Sig Dispense Refill Last Dose Acetaminophen 500 MG Oral Tablet (TYLENOL) Take 1,000 mg by mouth every 6 (six) hours as needed for Pain Past Week at Unknown time Acyclovir 400 MG Oral Tablet (ZOVIRAX) Take 400 mg by mouth Two Times Gabriela ly 03/05/2020 at Unknown time amLODIPine Besylate 5 MG Oral Tablet (NORVASC) Take 1 tablet by mouth gabriela ly 30 tablet 11 03/05/2020 at 1600 Sandraaglmarina KwikPen 100 UNIT/ML Subcutaneous Solution Pen-injector (insulin glargine) Inject 30 Units into the skin nightly 03/05/2020 at 2000 Calcium Polycarbophil 625 MG Oral Tablet (FIBERCON) Take 1 tablet by mout h daily 30 tablet 11 03/05/2020 at 1600 Carvedilol 12.5 MG Oral Tablet (COREG) Take 1 tablet by mouth Two Times D aily 60 tablet 11 03/05/2020 at 1600 Furosemide 40 MG Oral Tablet (LASIX) Take 40 mg by mouth Two Times Daily 03/05/2020 at 0900 Incruse Ellipta 62.5 MCG/INH Inhalation Aerosol Powder Breath Activated ( Umeclidinium [place]) Inhale 1 puff into the lungs daily 03/05/2020 at Unknown time Inqovi 35-100 MG Oral Tablet (Decitabine-Cedazuridine) Take 1 tablet by m outh daily for 5 days every 28 day cycle. 02/24/2020 at Unknown time Insulin Lispro (1 Unit Dial) 100 UNIT/ML Subcutaneous Solution Pen-inject or (HumaLOG KwikPen) Inject into the skin Three times daily per sliding scale. M ax daily dose of 30 units. 03/05/2020 at Unknown time Isosorbide Mononitrate ER 60 MG Oral Tablet Extended Release 24 Hour (IMD UR) Take 1 tablet by mouth daily 30 tablet 11 03/05/2020 at 1600 Polyvinyl Alcohol 1.4 % Ophthalmic Solution (LIQUIFILM TEARS) Place 1 manuela p into both eyes daily 03/05/2020 at Unknown time Pravastatin Sodium 40 MG Oral Tablet (PRAVACHOL) Take 40 mg by mouth sarah y 03/05/2020 at 1600 Spironolactone 100 MG Oral Tablet (ALDACTONE) Take 100 mg by mouth daily 03/05/2020 at 1600 Vitamin D3 25 MCG (1000 UT) Oral Tablet (CHOLECALCIFEROL) Take 1,000 Unit s by mouth daily 03/05/2020 at 1600 Allergies/Reactions Allergies Allergen Reactions Losartan Anaphylaxis Physical Exam: Visit Vitals BP 129/60 (BP Location: Right arm, Patient Position: Sitting) Pulse 65 Temp 36.4 C (97.5 F) (Oral) Resp 16 Ht 1.63 m (5' 4.17") Wt 87.8 kg (193 lb 9 oz) SpO2 99% BMI 33.05 kg/m Airway: II Lungs:CTA Heart:RRR ASA Physical Status Classification: ASA 4 - Patient with severe systemic disease that is a constant threat to life Treatment Plan: General Anesthesia Rationale: Comfort and analgesia Procedure: EGD/enteroscopy Patient has been explained about the risks of the procedure including the risk f or perforation, corrective surgery, possible ostomy, chances of splenic injury r esulting in splenectomy, bleeding from and intervention during the procedure or later (which may require blood transfusion), complications of anesthesia/moderat e sedation (including aspiration pneumonia, cardiac arrhythmias, respiratory dec ompensation, which may require CPR). . Patient agrees to proceed with the proced ure. Associated attestation - Taco Powell MD - 03/14/2020 9:29 AM EST Taco Powell MD * Aldo Juarez MD - 03/06/2020 11:52 PM EST History & Physical Patient Patricia Cotton PCP Ana Shin MD Admission Date 03/06/2020 Chief Complaint/Reason for Admission: Patricia is coming in today as a transfer from another hospital , For hematology wo rkup Subjective History of Presenting Illness Ms. Patricia Cotton is a 65 y.o. female with a past medical history of coronary daron ry disease status post 2 stents in 2009 to in 2017, hypertension, type 2 diabete s on insulin, hyperlipidemia, COPD, CKD stage IV, atrophic left kidney, divertic ulosis, pancytopenia, presented to [facility] for complaint of weakness. Patient was scheduled to receive 1 unit RBC and 1 unit platelet today but arina ent was unable to make to outpatient because of weakness. Patient has diagnosis of CMML 1, was started on Decitabine-Cedazuridine. Patient follows Dr. Carter in [place] Bone marrow 03/2019 , core biopsy, aspirate, clot, and peripheral blood:Myelodysp lastic/myeloproliferative neoplasm with mildly increased bone marrow blasts (sima roximately 5% by CD34 immunohistochemical staining), favor chronic myelomonocyti c leukemia-1 (CMML-1). The peripheral blood shows leukocytosis with absolute moses trophilia (11.8 K/uL), absolute monocytosis (3.1 K/uL), frequent dysplastic gran ulocytes and nucleated red blood cells, and rare blasts. The marrow is markedly hypercellular with trilineage dysplasia. 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 These findings support the CMML-1. PDGFRA, PDGFRB, FGFR1, JAK2 mutati ons negative. Myeloid gene panel Myeloid Markers (expressed as % of LYMPHOCYTE g ate): CD11b = 48, CD13 = 71, CD14 = 14, CD15 = 43, CD33 = 95, CD41 = 36, CD64 = 27, CD71 = 37, CD117 = 44. Patient reports that her black stool correspond to the initiation of chemotherap y. Patient denies history of ulcers, GERD. Patient has not noted hematochezia, gross blood in stool. Whenever she initiates chemotherapy she has diarrhea on day 1 and followed by constipation. Patient denies fevers chills nausea vomitin g headache or SOB. Patient reports feeling intolerant of cold and sometimes hea t infrequently. Her last colonoscopy was in February 2019 where 2 polyps were re moved and were negative for malignancy. At the outside hospital vital signs sta ble, FOBT positive, chest x-ray negative for acute disease, port in place and pa cemaker in place. Elevated creatinine 1.62, GFR 33, albumin 2.6, calcium 8.5, W BC 2.0, hemoglobin 5.5, platelets 5, ANC 4%, promyelocytes 1%, blasts 14%, smudg e cell+2. Patient received 1 unit RBC and 1 unit platelets at outside hospital prior to chris xiao. Patient has been requiring frequent transfusions, with increased blasts percent, concern for transformation to AML. Patient being admitted for further hematolo gical management. 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 She lives with her family. She reports that she has quit smoking . Her smoking use included cigarettes. She has never used smokeless tobacco. She reports previous alcohol use. She reports that she does not use drugs. Travel: No recent history of long distance travel. Family History Her family history includes Asthma in her sister; Cancer in her mother; Dementia in her brother; Diabetes in her father and sister; Heart attack in her father. Home Medications Medication Sig amLODIPine Besylate 5 MG Oral Tablet (NORVASC) Take 1 tablet by mouth daily insulin lispro 100 UNIT/ML SC injection MEDIUM DOSE EATING INSULIN patients Arina ent Instructions: Please refer to Insulin Sliding Scale Instructions in the Disc harge Instructions. Isosorbide Mononitrate ER 60 MG Oral Tablet Extended Release 24 Hour (IMDUR) Tunde e 1 tablet by mouth daily Pravastatin Sodium 40 MG Oral Tablet (PRAVACHOL) Take 1 tablet by mouth every ev ening Spironolactone 100 MG Oral Tablet (ALDACTONE) Take 100 mg by mouth daily Vitamin D3 25 MCG (1000 UT) Oral Tablet (CHOLECALCIFEROL) Take 1,000 Units by mo uth daily Calcium Polycarbophil 625 MG Oral Tablet (FIBERCON) Take 1 tablet by mouth daily Carvedilol 12.5 MG Oral Tablet (COREG) Take 1 tablet by mouth Two Times Daily Furosemide 40 MG Oral Tablet (LASIX) Take 1 tablet by mouth daily Insulin Glargine 100 UNIT/ML Subcutaneous Solution (LANTUS) Inject 24 Units into the skin nightly Patient taking differently: Inject 30 Units into the skin nightly Senna 8.6 MG Oral Tablet Take 2 tablets by mouth nightly Tiotropium [place] Monohydrate 2.5 MCG/ACT Inhalation Aerosol Solution (SPIRIVA RESPIMAT) Inhale 2 puffs into the lungs daily Allergies: Losartan Review of Systems Constitutional: Negative for activity change, chills and unexpected weight calderon e. HENT: Negative for facial swelling and sneezing. Respiratory: Negative for cough and shortness of breath. Cardiovascular: Negative for chest pain and leg swelling. Gastrointestinal: Negative for abdominal pain, blood in stool, nausea and vomiti ng. Black stool Genitourinary: Negative for dysuria and frequency. Musculoskeletal: Negative for arthralgias and joint swelling. Neurological: Positive for weakness. Negative for dizziness and headaches. Psychiatric/Behavioral: Negative for agitation, behavioral problems and confusio n. Objective Temp: [36.6 C (97.9 F)] 36.6 C (97.9 F) Pulse: [94] 94 Resp: [24] 24 BP: (113)/(55) 113/55 SpO2: [100 %] 100 % Physical Exam Constitutional: She is oriented to person, place, and time. HENT: Head: Normocephalic and atraumatic. Nose: Nose normal. Mouth/Throat: Mucous membranes are moist. Eyes: Conjunctivae are normal. No scleral icterus. Cardiovascular: Normal rate, regular rhythm, normal heart sounds and normal puls es. Pulmonary/Chest: Effort normal. No respiratory distress. She has wheezes. She gutierrez s rhonchi. Abdominal: Normal appearance. There is no abdominal tenderness. There is no guar ding. Neurological: She is alert and oriented to person, place, and time. Skin: Skin is warm. Laboratory Data (Most Recent over Past 3 Years) Lab 04/07/19 0023 04/08/19 0046 04/09/19 0033 WBC 17.9* 18.3* 21.1* HGB 8.5* 8.6* 8.5* HCT 26.3* 27.0* 26.6* MCV 88.0 88.2 88.0 PLT 19* 16* 31* Lab 04/07/19 0023 04/08/19 0046 04/09/19 0033 NA 131* 131* 130* K 4.6 4.6 4.8 CL 96* 96* 97* BICARBONATE 22 21* 20* GLUCOSE 190* 188* 131 BUN 67* 71* 72* CREATININE 2.37* 2.33* 2.46* Lab 04/07/19 0023 04/08/19 0046 04/09/19 0033 NEUTOPHILPCT 19 35 37 LYMPHOPCT 24 14 19 MONOPCT 28 22 28 EOSPCT 1 2 -- Lab 04/06/19 0009 PROT 7.4 ALBUMIN 4.0 AST 19 ALT 16 TBILI 0.8 ALKPHOS 67 Lab 04/06/19 0954 INR 1.20 Lab 04/06/19 0954 04/07/19 0023 TSH 7.080* -- THYROIDAB -- 0.5 Assessment & Plan Ms. Patricia Cotton is a 65 y.o. female With past medical history of coronary arter y disease status post 2 stents in 2009 to in 2017, hypertension, type 2 diabetes on insulin, hyperlipidemia, COPD, CKD stage IV, atrophic left kidney, diverticu losis, pancytopenia, presented to [facility] for complaint of weakness. 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 Carter in [place] -Patient was too tired to get transfused today, hence presented to OSH -Hemoglobin 5.5, platelet 5, blasts 14%, WBC 2.0, ANC 4% -Patient received 1 unit RBC and 1 unit platelets at outside hospital prior to t ransfer -Concern for possible AML transformation from CML given reducing blood counts re quiring frequent transfusions and increasing blasts 14% -Placing patient on neutropenic precautions, neutropenic diet -Neutropenia prophylaxis with acyclovir, fluconazole, Levaquin -EKG ordered -Chest x-ray ordered -Bone marrow biopsy planned for tomorrow COVID-19 rule out -Patient does not have symptoms relating to COVID-19 -[facility] COVID-19 per patient was negative, however no results found in transfer pac ket -COVID-19 test ordered Dark stools likely secondary to chemotherapy -Symptoms correlate to initiation of chemotherapy -Patient does not have history of GERD, ulcers -Last colonoscopy in February 2019 revealed polyps that were removed and negative for malignancy -[facility] FOBT was positive -FOBT ordered CAD status post stent Status post pacemaker -At home on pravastatin 40 mg, continue -Chest x-ray revealed pacemaker in place Hypertension Hyperlipidemia -At home on carvedilol, spironolactone, amlodipine, continue -Hold Lasix due to LA Type 2 diabetes -At home on sliding scale insulin, takes 30 units at night -Started sliding scale insulin, continue monitoring glucose COPD -Not in acute exacerbation -Patient does not report shortness of breath or difficulty breathing -Patient saturating well -Pulmonary auscultation revealed wheezing and rhonchi -At home on tiotropium, continue -One-time DuoNeb LA CKD stage IV Atrophic left kidney -Creatinine 1.62, baseline unknown -Holding Lasix -IV fluid hydration Heat/cold intolerance -No history of thyroid disease -TSH, T3, T4 ordered DVT Prophylaxis: heparin GI Prophylaxis: PPi Reason: Risk for stress ulcers Disposition: Will admit to inpatient status as she meets the clinical criteria a nd is expected to stay for >2 midnights based on the current severity of the disease Code Status: DNR/DNI The patient was discussed with Dr. Gladys Castellanos MD, who agrees with the abo ve assessment and plan. This document was dictated using Trunq[employer] Speaking Software. A reasonab le attempt at proof reading has been made to minimize errors. Certain parts of t his note may have been carried over from prior notes to maintain accuracy of corinne morales's pertinent medical history and continuity of care. The details were verifi ed and edited as appropriate. Signature: Aldo Juarez MD Date/Time: March 06, 2020 11:52 PM Associated attestation - Gladys Castellanos MD - 03/07/2020 1:23 PM EST I saw and evaluated the patient with the resident. I discussed findings and wayne n and I agree with documentation by the resident. Will do bone marrow aspiration and biopsy to determine whether mds has progressed to AML. documented in this encounter Procedure Notes * Maryjane Baer DO - 03/07/2020 1:19 PM EST Indication for Bone Marrow Biopsy: Pancytopenia Procedure note: Written informed consent obtained from the patient. Risks and be nefits of the procedure discussed with the patient including pain, bleeding and infection. Patient verbalized understanding and signed the consent. Time out procedure carried out with nurse in the room. Patient placed in prone p osition. Right iliac crest identified. Area prepared and draped under aseptic p recautions with chlor prep. 2% Lidocaine used for LA. 2 mm skin incision given.B one marrow aspirate needle used to obtain the aspirate. Bone marrow aspirate nee dle was introduced in the marrow cavity; unable to obtain aspirate after three a ttempts. Bone marrow biopsy needle then inserted and bone marrow core obtained w ithout any difficulty. Patient tolerated the procedure well. Complications- No immediate complications. Pre sedation used- None Entire procedure supervised by Dr. Jasmin Baer DO Hematology/Oncology Fellow Associated attestation - Gladys Castellanos MD - 03/07/2020 1:45 PM EST I was present during the entire procedure. Bone marrow inaspirable. Biopsy spl it to send part for flow cytometry, cytogenetics. No adverse events. documented in this encounter Consult Notes * Taco Powell MD - 03/12/2020 9:39 AM EST Associated Order(s): IP CONSULT TO GI Gastroenterology Consult Note Reason for consult: melena, concern for upper GI bleed Physician requesting consult: Lisa Palumbo MD Physician performing the consult: Dr. Powell HISTORY History of Presenting Illness Ms. Patricia Cotton is a 65 y.o. female with coronary artery disease, hypertension, type 2 diabetes mellitus, hyperlipidemia, CKD stage IV, COPD, diverticulosis, an d CML with pancytopenia who is admitted to the hospital for hematological manage ment. GI has been consulted for melena. Ms. Patricia Cotton was diagnosed with CML in March of 2019. She states that she gutierrez s been having "very black and smelly" stools for the past two weeks. She states that she was supposed to go to the cancer center at [facility] last day however felt weak and tired, so she cancelled her appointment. She states th at, at the time, she felt generalized weakness and had multiple episodes of diar leo with stool that was black in color. She states that she follows up with the cancer center and goes one to two times per week to have her blood counts check ed. She states that she has been getting transfusions quite often, both with red blood cells and platelets. She denies any history of vomiting blood, denies any gross blood in the stool. She states that her diarrhea comes and goes, she may have a few days of diarrhea and then become constipated for other days. Her last bowel movement was this morning. It was dark in color, and mushy in consistency, bristol type 6. She states that some days she has no bowel movements, but on o ther days she may have 2-3 bowel movements and cannot control her bowel movement s at times. She denies any fever, chills, headaches, lightheadedness, nausea, vo miting, chest pain, shortness of breath, abdominal pain, constipation, or diarrh ea today. On review of her records from [facility], it appears that the patient has had CMML wit h pancytopenia including transfusion-dependent anemia and thrombocytopenia, requ iring transfusions. It is reported in one of her notes on [facility] that she has had 48 blood transfusions this past year. She started with decitabine in April and was switched to decitabine/cedazoridine (Inquovi) in December of 2019. Th ere was discussion about sending her to a MDS specialist however the patient rep ortedly refused the referral. She states that she sees Dr. Frias, a corporate security officer at [facility] . Per primary team, her last colonoscopy in February of 2019 showed two polyps th at were removed and were negative for any malignancy. She states that she has ne mandy had an upper endoscopy. Previous Endoscopies: Colonoscopy in February of 2019 Past Medical & Surgical History Past Medical History: Diagnosis Date Asthma Blood transfusion without reported diagnosis Cancer CHF (congestive heart failure) COPD (chronic obstructive pulmonary disease) Diabetes mellitus Hypertension Past Surgical History: Procedure Laterality Date CARDIAC SURGERY Allergies Allergen Reactions Losartan Anaphylaxis Home Medications Medication Sig Acetaminophen 500 MG Oral Tablet (TYLENOL) Take 1,000 mg by mouth every 6 (six) hours as needed for Pain Acyclovir 400 MG Oral Tablet (ZOVIRAX) Take 400 mg by mouth Two Times Daily amLODIPine Besylate 5 MG Oral Tablet (NORVASC) Take 1 tablet by mouth daily Basaglar KwikPen 100 UNIT/ML Subcutaneous Solution Pen-injector (insulin glargin e) Inject 30 Units into the skin nightly Calcium Polycarbophil 625 MG Oral Tablet (FIBERCON) Take 1 tablet by mouth daily Carvedilol 12.5 MG Oral Tablet (COREG) Take 1 tablet by mouth Two Times Daily Furosemide 40 MG Oral Tablet (LASIX) Take 40 mg by mouth Two Times Daily Incruse Ellipta 62.5 MCG/INH Inhalation Aerosol Powder Breath Activated (Umeclid inium [place]) Inhale 1 puff into the lungs daily Inqovi 35-100 MG Oral Tablet (Decitabine-Cedazuridine) Take 1 tablet by mouth da jerry for 5 days every 28 day cycle. Insulin Lispro (1 Unit Dial) 100 UNIT/ML Subcutaneous Solution Pen-injector (Hum aLOG KwikPen) Inject into the skin Three times daily per sliding scale. Max sarah y dose of 30 units. Isosorbide Mononitrate ER 60 MG Oral Tablet Extended Release 24 Hour (IMDUR) Tunde e 1 tablet by mouth daily Polyvinyl Alcohol 1.4 % Ophthalmic Solution (LIQUIFILM TEARS) Place 1 drop into both eyes daily Pravastatin Sodium 40 MG Oral Tablet (PRAVACHOL) Take 40 mg by mouth daily Spironolactone 100 MG Oral Tablet (ALDACTONE) Take 100 mg by mouth daily Vitamin D3 25 MCG (1000 UT) Oral Tablet (CHOLECALCIFEROL) Take 1,000 Units by mo uth daily Medications at this time acyclovir 400 mg Oral TID albuterol 2.5 mg Nebulization Q8H allopurinol 100 mg Oral Daily amlodipine 5 mg Oral Daily carvedilol 12.5 mg Oral BID docusate sodium 100 mg Oral BID eltrombopag 50 mg Oral Daily fluconazole 200 mg Oral Daily furosemide 40 mg Oral Daily insulin lispro 1-8 Units Subcutaneous 3 x Daily with Meals isosorbide mononitrate 60 mg Oral Daily lidocaine 1 patch Transdermal Daily pantoprazole 40 mg Oral Daily piperacillin-tazobactam 3.375 g Intravenous Q6H polyethylene glycol 17 g Oral Daily pravastatin 40 mg Oral QPM senna 2 tablet Oral Nightly spironolactone 100 mg Oral Daily tiotropium 2 puff Inhalation Daily acetaminophen (TYLENOL) tablet, acetaminophen (TYLENOL) tablet, albuterol, dextr ose, diphenhydrAMINE, glucagon (human recombinant), glucose, heparin flush (porc ine), heparin flush (porcine), heparin lock flush, heparin lock flush, maalox/li docaine/diphenhydrAMINE, sodium chloride, sodium chloride, prochlorperazine, sod ium chloride (preservative free), sodium chloride (preservative free) sodium chloride Social History She is . She reports that she has quit smoking. Her smoking use included cigarettes. She has never used smokeless tobacco. She reports previous alcohol u se. She reports that she does not use drugs. Family History family history includes Asthma in her sister; Cancer in her mother; Dementia in her brother; Diabetes in her father and sister; Heart attack in her father. No family history of GI//Flight Attendant Ramp cancers. Review of systems: Complete ROS performed and found to be negative except those mentioned in the HP I. PHYSICAL EXAMINATION Blood pressure (!) 145/99, pulse 63, temperature 37.1 C (98.8 F), temper ature source Oral, resp. rate 18, height 1.63 m, weight 84.1 kg (185 lb 6.4 oz), SpO2 98 %. Physical Exam General appearance: Alert, cooperative, appears well-developed and well-nourishe d Head: Normocephalic,atraumatic Eyes: No pallor, no icterus Neck: Supple, no thyromegaly CVS: Normal rate, regular rhythm and normal heart sounds RS: No respiratory distress. Effort normal. Vesicular breath sounds bilaterally Abdomen: BS +, soft, non-tender, non-distended, no guarding, no rigidity, no org anomegaly, no free fluid. DRAFTER TOOL DESIGN: Alert and oriented to person, place, and time. Normal speech. Skin: Skin is warm and dry. Bruising over the arms bilaterally. Petechiae/purpur a visualized on the upper chest. Psychiatric: Normal mood and affect. Behavior is normal. DATA REVIEW All relevant laboratory data, outside records and imaging that were available we re independently reviewed by me. Pertinent ones are listed here. Laboratory Data: Lab 03/09/20 0004 03/09/20 1151 03/10/20 0023 03/10/20 0900 03/11/20 0028 03/11/20 1645 03/12/20 0507 HGB 6.3* 7.6* 6.3* -- 5.7* 6.8* 6.5* HCT 18.4* 21.7* 18.1* -- 16.5* 19.1* 18.3* MCV 88.1 88.1 88.1 -- 88.2 87.1 87.7 PLT 10* 10* 6* 19* 11* 13* 10* WBC 0.6* 0.6* 0.5* -- 0.4* 0.5* 0.5* Lab 03/08/20 0230 03/09/20 0004 03/10/20 0023 03/11/20 0028 03/12/20 0507 NA 136 136 137 136 135* K 4.4 4.1 4.5 4.3 4.0 CL 111* 111* 113* 114* 113* BICARBONATE 20* 18* 17* 16* 16* BUN 67* 50* 43* 42* 43* CREATININE 1.52* 1.53* 1.35* 1.39* 1.64* Lab 04/06/19 0009 03/07/20 0047 03/08/20 0230 03/09/20 0004 03/12/20 0507 PROT 7.4 5.0* 4.6* 4.7* 4.5* ALBUMIN 4.0 2.9* 2.6* 2.6* 2.3* ALT 16 8 <5 <5 5 AST 19 6 <5 6 5 ALKPHOS 67 80 71 72 74 TBILI 0.8 0.6 1.0 0.5 0.7 Lab 04/06/19 0954 03/07/20 1047 03/09/20 0940 INR 1.20 1.32 1.26 Imaging and other investigations: Ct Abdomen Pelvis Without Contrast Result Date: 03/08/2020 PROCEDURE INFORMATION: Exam: CT Abdomen And Pelvis Without Contrast Exam date an d time: 03/08/2020 9:46 AM Age: 65 years old Clinical indication: Other: Anemia; Additional info: Anemia , evaluate for retroperitoneal bleed TECHNIQUE: Imaging protocol: Computed tomography of the abdomen and pelvis without contrast. Radiat ion optimization: All CT scans at this facility use at least one of these dose o ptimization techniques: automated exposure control; mA and/or kV adjustment per patient size (includes targeted exams where dose is matched to clinical indicati on); or iterative reconstruction. COMPARISON: No relevant prior studies availabl e. FINDINGS: Tubes, catheters and devices: An AICD is in place. Lungs: There is peribronchial thickening consistent with reactive airway disease. Liver: Normal. No mass. Gallbladder and bile ducts: Normal. No calcified stones. No ductal dil ation. Pancreas: Normal. No ductal dilation. Spleen: Normal. No splenomegaly. Ad renal glands: There is diffuse bilateral nonspecific adrenal enlargement. Kidney s and ureters: There is enlargement of the right renal pelvis with inflammatory change and mild right perinephric stranding. No stone. This may possibly be seco ndary to infection. Suggest clinical correlation. The left kidney is atrophic. S tomach and bowel: There is extensive diverticulosis throughout the colon. Append ix: A normal appendix is identified. Intraperitoneal space: Unremarkable. No lawrence e air. No significant fluid collection. Vasculature: There is extensive atherosc lerotic calcification. Lymph nodes: Unremarkable. No enlarged lymph nodes. Urina ry bladder: Unremarkable as visualized. Reproductive: Unremarkable as visualized . Bones/joints: There are degenerative changes of the spine. Soft tissues: Unrem arkable. IMPRESSION: 1. There is enlargement of the right renal pelvis with infl ammatory change and mild right perinephric stranding. No stone. This may possibl y be secondary to infection. Suggest clinical correlation. 2. The left kidney is atrophic. 3. Extensive diverticulosis throughout the colon. 4. There is extensi ve atherosclerotic calcification. 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 COMPARISON: DX XR CHEST FRONTAL ONLY [id number] PORTAB LE 03/06/2020 11:56 PM FINDINGS: Tubes, catheters and devices: AICD on left. Righ t port catheter unchanged. Lungs: Prominent interstitial markings and peribronch ial thickening suggesting reactive airway disease. No consolidation. Pleural spa ce: No pleural effusion. No pneumothorax. Heart/Mediastinum: Cardiac silhouette enlarged. Calcified tortuous aorta. Bones/joints: Unremarkable. IMPRESSION: No a cute infiltrate. THIS DOCUMENT HAS BEEN ELECTRONICALLY SIGNED BY ADELAIDA Beasley MD Xr Chest Frontal Only Result Date: 03/07/2020 PROCEDURE INFORMATION: Exam: XR Chest, 1 View Exam date and time: 03/07/2020 1:01 AM Age: 65 years old Clinical indication: Other: Chemotherapy initiation TECHNI QUE: Imaging protocol: XR of the chest Views: 1 view. COMPARISON: No relevant pr ior studies available. FINDINGS: Tubes, catheters and devices: Right port cathet er with the tip in the SVC. AICD/pacemaker on left. Lungs: Hyperinflation. No co nsolidation. Pleural space: No pleural effusion. No pneumothorax. Heart/Mediasti num: No cardiomegaly. Calcified tortuous aorta. Bones/joints: Unremarkable IMPR ESSION: No acute lung pathology. THIS DOCUMENT HAS BEEN ELECTRONICALLY SIGNED BY ADELAIDA PEÑA MD ASSESSMENT Ms. Patricia Cotton is a 65 y.o. female with coronary artery disease, hypertension, type 2 diabetes mellitus, hyperlipidemia, CKD stage IV, COPD, diverticulosis, an d CML with pancytopenia who is admitted to the hospital for hematological manage ment. GI has been consulted for melena. RECOMMENDATIONS The patient seems to have a hemodynamically non-significant gastrointestinal ble eding associated with acute drop in hemoglobin and hematocrit manifested by arabella na. The source of the GI bleed is like upper GI tract. FOBT upper GI was positiv e. CT abdomen/pelvis showed extensive diverticulosis throughout the colon. Nucle ar medicine GI blood loss imaging study showed active GI bleed which may be of s mall bowel origin. We will plan for upper endoscopy on Thursday. - Resuscitation is of paramount importance in any GI bleed. - Secure 2 large bore IV cannulae it not already done so. - Monitor CBC and transfuse to keep Hematocrit > 24% - Resuscitate the patient with IVF and blood products (obtain type and crossmatc h) as needed. - Avoid all anticoagulation, antiplatelet drugs, and NSAIDs. - Please transfuse to keep platelet count > 40. The patient has an HLA antibody screen pending and can potentially receive HLA-matched platelets - We will plan for upper endoscopy on Thursday - Please continue with appropriate antibiotic prophylaxis for neutropenia - Please call the GI fellow nutrition partner with any acute bleeding (bright red blood pe r rectum, melena or hemtochezia) or change in hemodynamic status. - The risks of the procedure including but not limited to a tear, perforation, b leeding, systemic infections, along with the risks of moderate sedation/anesthes ia including aspiration, pneumonia, airway/respiratory complications needing int ubation, cardiorespiratory complications were explained to the patient and patie nt expresses understanding and willingness to go ahead with the procedure. The patient was discussed with Dr. Powell who agrees with the above assessment and plan. Everett Smith MD PGY 1, medicine resident [phone] (Pager) 03/12/2020 9:40 AM Attending Note Patricia Brodie Cotton was seen and evaluated with the resident. I have personally reviewe d the chart including any outside records, available labs and imaging studies, a nd agree with the assessment and plan as discussed in the note. Please refer to enteroscopy note for additional recommendations. * Ilsa Mcgarry PharmD - 03/09/2020 1:03 PM EST Associated Order(s): IP CONSULT TO PHARMACY Pharmacy Inpatient Medication History Review Prior to Admission Medications Prescriptions Last Dose Informant Patient Reported? Taking? Acetaminophen 500 MG Oral Tablet (TYLENOL) Past Week at Unknown time Self Yes Ye s Sig: Take 1,000 mg by mouth every 6 (six) hours as needed for Pain Acyclovir 400 MG Oral Tablet (ZOVIRAX) 03/05/2020 at Unknown time Pharmacy Yes Ye s Sig: Take 400 mg by mouth Two Times Daily Basaglar KwikPen 100 UNIT/ML Subcutaneous Solution Pen-injector (insulin glargin e) 03/05/2020 at 2000 Pharmacy Yes Yes Sig: Inject 30 Units into the skin nightly Calcium Polycarbophil 625 MG Oral Tablet (FIBERCON) 03/05/2020 at 1600 Self No Ye s Sig: Take 1 tablet by mouth daily Carvedilol 12.5 MG Oral Tablet (COREG) 03/05/2020 at 1600 Pharmacy No Yes Sig: Take 1 tablet by mouth Two Times Daily Furosemide 40 MG Oral Tablet (LASIX) 03/05/2020 at 0900 Pharmacy Yes Yes Sig: Take 40 mg by mouth Two Times Daily Incruse Ellipta 62.5 MCG/INH Inhalation Aerosol Powder Breath Activated (Umeclid inium [place]) 03/05/2020 at Unknown time Pharmacy Yes Yes Sig: Inhale 1 puff into the lungs daily Inqovi 35-100 MG Oral Tablet (Decitabine-Cedazuridine) 02/24/2020 at Unknown time Pharmacy Yes Yes Sig: Take 1 tablet by mouth daily for 5 days every 28 day cycle. Note (03/08/2020): Took 1--21 to -8-21. Insulin Lispro (1 Unit Dial) 100 UNIT/ML Subcutaneous Solution Pen-injector (Hum aLOG KwikPen) 03/05/2020 at Unknown time Pharmacy Yes Yes Sig: Inject into the skin Three times daily per sliding scale. Max daily dose of 30 units. Isosorbide Mononitrate ER 60 MG Oral Tablet Extended Release 24 Hour (IMDUR) 02/16 at 1600 Pharmacy No Yes Sig: Take 1 tablet by mouth daily Polyvinyl Alcohol 1.4 % Ophthalmic Solution (LIQUIFILM TEARS) 03/05/2020 at Unkno wn time Self Yes Yes Sig: Place 1 drop into both eyes daily Pravastatin Sodium 40 MG Oral Tablet (PRAVACHOL) 03/05/2020 at 1600 Pharmacy Yes Yes Sig: Take 40 mg by mouth daily Spironolactone 100 MG Oral Tablet (ALDACTONE) 03/05/2020 at 1600 Pharmacy Yes Yes Sig: Take 100 mg by mouth daily Vitamin D3 25 MCG (1000 UT) Oral Tablet (CHOLECALCIFEROL) 03/05/2020 at 1600 Self Yes Yes Sig: Take 1,000 Units by mouth daily amLODIPine Besylate 5 MG Oral Tablet (NORVASC) 03/05/2020 at 1600 Pharmacy No Yes Sig: Take 1 tablet by mouth daily Facility-Administered Medications: None Medication History Source: [facility] - [place], [place] - [address] [facility] [address] [facility] [id number] [facility] - Located in the [facility] [address] [place] [address] [facility] [id number] - [place], [place] - [address] [facility] [address] [facility] [id number] The above prior to admission medications have been compared to current inpatient orders. Discrepancies: The following medications have not been resumed on admission: fibercon, furosemi de, artificial tears, vitamin D Patient is not due for her next inqovi treatment until first week of Mar 2020. Recommendations: Consider resuming the above noted medications if/when appropriate. Medication history was completed based on information available during this arina ent encounter, the list above may not be all inclusive. Thank you, documented in this encounter Miscellaneous Notes * Plan of Care - Klaudia Goins RN - 03/18/2020 4:15 PM EST Problem: Risk for Falls Goal: No falls during hospitalization Description: Patient will not fall during hospitalization. Outcome: Adequate for Discharge Problem: Knowledge Deficit Goal: Knowledge - personal safety Description: Patient will verbalize understanding of fall prevention. Outcome: Adequate for Discharge Problem: Fall Prevention Goal: No fall during Hospitalization Outcome: Adequate for Discharge Problem: Risk for Infection Goal: The patient will receive immunization screening as indicated Outcome: Adequate for Discharge Goal: Patient will remain free of infection in operative site Outcome: Adequate for Discharge Goal: The patient will not develop pneumonia post-operatively Outcome: Adequate for Discharge Goal: The patient will not develop Catheter Acquired Urinary Tract Infection (CA UTI) Outcome: Adequate for Discharge Problem: Risk for DVT/PE Goal: Patient will not develop a DVT/PE Outcome: Adequate for Discharge Problem: Risk for Gastrointestinal Complications Goal: Patient will not develop gastrointestinal complications Description: Nausea/vomiting, constipation, dehydration Outcome: Adequate for Discharge Problem: Sensory Perception is less than 4 (< 4) Goal: Improve Sensory Perception Outcome: Adequate for Discharge Problem: Moisture is less than 4 (< 4) Goal: Eliminate Moisture Outcome: Adequate for Discharge Problem: Activity is less than 4 (< 4) Goal: Improve Activity Outcome: Adequate for Discharge Problem: Mobility is less than 4 (< 4) Goal: Improve Mobility Outcome: Adequate for Discharge Problem: Nutrition is Less than 3 (< 3) Goal: Improve Nutrition Outcome: Adequate for Discharge Problem: Friction Shear is less than 3 (< 3) Goal: Eliminate Friction Shear Outcome: Adequate for Discharge Problem: INJURY, RISK FOR Goal: Patient will not be injured from a fall during hospitalization Outcome: Adequate for Discharge Problem: Knowledge Deficit Goal: Patient requires education regarding causes of high risk injury from a fal l Outcome: Adequate for Discharge Goal: Patient's family requires education regarding causes of high risk injury f rom a fall Outcome: Adequate for Discharge * Plan of Care - Gal Cabrera RN - 03/17/2020 4:46 AM EST Problem: Risk for Falls Goal: No falls during hospitalization Description: Patient will not fall during hospitalization. Outcome: Progressing Problem: Knowledge Deficit Goal: Knowledge - personal safety Description: Patient will verbalize understanding of fall prevention. Outcome: Progressing Problem: Fall Prevention Goal: No fall during Hospitalization Outcome: Progressing Problem: Risk for Infection Goal: The patient will receive immunization screening as indicated Outcome: Progressing Goal: Patient will remain free of infection in operative site Outcome: Progressing Goal: The patient will not develop pneumonia post-operatively Outcome: Progressing Goal: The patient will not develop Catheter Acquired Urinary Tract Infection (CA UTI) Outcome: Progressing Problem: Risk for Gastrointestinal Complications Goal: Patient will not develop gastrointestinal complications Description: Nausea/vomiting, constipation, dehydration Outcome: Progressing Problem: Sensory Perception is less than 4 (< 4) Goal: Improve Sensory Perception Outcome: Progressing Problem: Moisture is less than 4 (< 4) Goal: Eliminate Moisture Outcome: Progressing Problem: Activity is less than 4 (< 4) Goal: Improve Activity Outcome: Progressing Problem: Mobility is less than 4 (< 4) Goal: Improve Mobility Outcome: Progressing Problem: Nutrition is Less than 3 (< 3) Goal: Improve Nutrition Outcome: Progressing Problem: Friction Shear is less than 3 (< 3) Goal: Eliminate Friction Shear Outcome: Progressing * Plan of Care - Sharmin Olmedo RN - 03/16/2020 9:47 AM EST Problem: Risk for Falls Goal: No falls during hospitalization Description: Patient will not fall during hospitalization. Outcome: Progressing Problem: Knowledge Deficit Goal: Knowledge - personal safety Description: Patient will verbalize understanding of fall prevention. Outcome: Progressing Problem: Fall Prevention Goal: No fall during Hospitalization Outcome: Progressing Problem: Risk for Infection Goal: The patient will receive immunization screening as indicated Outcome: Progressing Goal: Patient will remain free of infection in operative site Outcome: Progressing Goal: The patient will not develop pneumonia post-operatively Outcome: Progressing Goal: The patient will not develop Catheter Acquired Urinary Tract Infection (CA UTI) Outcome: Progressing Problem: Risk for DVT/PE Goal: Patient will not develop a DVT/PE Outcome: Progressing Problem: Risk for Gastrointestinal Complications Goal: Patient will not develop gastrointestinal complications Description: Nausea/vomiting, constipation, dehydration Outcome: Progressing Problem: Sensory Perception is less than 4 (< 4) Goal: Improve Sensory Perception Outcome: Progressing Problem: Moisture is less than 4 (< 4) Goal: Eliminate Moisture Outcome: Progressing Problem: Activity is less than 4 (< 4) Goal: Improve Activity Outcome: Progressing Problem: Mobility is less than 4 (< 4) Goal: Improve Mobility Outcome: Progressing Problem: Nutrition is Less than 3 (< 3) Goal: Improve Nutrition Outcome: Progressing Problem: Friction Shear is less than 3 (< 3) Goal: Eliminate Friction Shear Outcome: Progressing Problem: INJURY, RISK FOR Goal: Patient will not be injured from a fall during hospitalization Outcome: Progressing Problem: Knowledge Deficit Goal: Patient requires education regarding causes of high risk injury from a fal l Outcome: Progressing Goal: Patient's family requires education regarding causes of high risk injury f rom a fall Outcome: Progressing * Plan of Care - Katie Francois RN - 03/15/2020 2:36 AM EST Problem: Risk for Falls Goal: No falls during hospitalization Description: Patient will not fall during hospitalization. Outcome: Progressing Problem: Knowledge Deficit Goal: Knowledge - personal safety Description: Patient will verbalize understanding of fall prevention. Outcome: Progressing Problem: Fall Prevention Goal: No fall during Hospitalization Outcome: Progressing Problem: Risk for Infection Goal: The patient will receive immunization screening as indicated Outcome: Progressing Goal: Patient will remain free of infection in operative site Outcome: Progressing Goal: The patient will not develop pneumonia post-operatively Outcome: Progressing Goal: The patient will not develop Catheter Acquired Urinary Tract Infection (CA UTI) Outcome: Progressing Problem: Risk for DVT/PE Goal: Patient will not develop a DVT/PE Outcome: Progressing Problem: Risk for Gastrointestinal Complications Goal: Patient will not develop gastrointestinal complications Description: Nausea/vomiting, constipation, dehydration Outcome: Progressing Problem: Sensory Perception is less than 4 (< 4) Goal: Improve Sensory Perception Outcome: Progressing Problem: Moisture is less than 4 (< 4) Goal: Eliminate Moisture Outcome: Progressing Problem: Activity is less than 4 (< 4) Goal: Improve Activity Outcome: Progressing Problem: Mobility is less than 4 (< 4) Goal: Improve Mobility Outcome: Progressing Problem: Nutrition is Less than 3 (< 3) Goal: Improve Nutrition Outcome: Progressing Problem: Friction Shear is less than 3 (< 3) Goal: Eliminate Friction Shear Outcome: Progressing Problem: Knowledge Deficit Goal: Patient requires education regarding causes of high risk injury from a fal l Outcome: Progressing * Plan of Cornelio - Feliz Ponce RN - 03/14/2020 10:09 AM EST Problem: Risk for Falls Goal: No falls during hospitalization Description: Patient will not fall during hospitalization. Outcome: Progressing Problem: Knowledge Deficit Goal: Knowledge - personal safety Description: Patient will verbalize understanding of fall prevention. Outcome: Progressing Problem: Fall Prevention Goal: No fall during Hospitalization Outcome: Progressing Problem: Risk for Infection Goal: The patient will receive immunization screening as indicated Outcome: Progressing Goal: Patient will remain free of infection in operative site Outcome: Progressing Goal: The patient will not develop pneumonia post-operatively Outcome: Progressing Goal: The patient will not develop Catheter Acquired Urinary Tract Infection (CA UTI) Outcome: Progressing Problem: Risk for DVT/PE Goal: Patient will not develop a DVT/PE Outcome: Progressing Problem: Risk for Gastrointestinal Complications Goal: Patient will not develop gastrointestinal complications Description: Nausea/vomiting, constipation, dehydration Outcome: Progressing Problem: Sensory Perception is less than 4 (< 4) Goal: Improve Sensory Perception Outcome: Progressing Problem: Moisture is less than 4 (< 4) Goal: Eliminate Moisture Outcome: Progressing Problem: Activity is less than 4 (< 4) Goal: Improve Activity Outcome: Progressing Problem: Mobility is less than 4 (< 4) Goal: Improve Mobility Outcome: Progressing Problem: Nutrition is Less than 3 (< 3) Goal: Improve Nutrition Outcome: Progressing Problem: Friction Shear is less than 3 (< 3) Goal: Eliminate Friction Shear Outcome: Progressing Problem: INJURY, RISK FOR Goal: Patient will not be injured from a fall during hospitalization Outcome: Progressing Problem: Knowledge Deficit Goal: Patient requires education regarding causes of high risk injury from a fal l Outcome: Progressing Goal: Patient's family requires education regarding causes of high risk injury f rom a fall Outcome: Progressing * Plan of Care - Feliz Ponce RN - 03/13/2020 9:50 AM EST Problem: Risk for Falls Goal: No falls during hospitalization Description: Patient will not fall during hospitalization. Outcome: Progressing Problem: Knowledge Deficit Goal: Knowledge - personal safety Description: Patient will verbalize understanding of fall prevention. Outcome: Progressing Problem: Fall Prevention Goal: No fall during Hospitalization Outcome: Progressing Problem: Risk for Infection Goal: The patient will receive immunization screening as indicated Outcome: Progressing Goal: Patient will remain free of infection in operative site Outcome: Progressing Goal: The patient will not develop pneumonia post-operatively Outcome: Progressing Goal: The patient will not develop Catheter Acquired Urinary Tract Infection (CA UTI) Outcome: Progressing Problem: Risk for DVT/PE Goal: Patient will not develop a DVT/PE Outcome: Progressing Problem: Risk for Gastrointestinal Complications Goal: Patient will not develop gastrointestinal complications Description: Nausea/vomiting, constipation, dehydration Outcome: Progressing Problem: Sensory Perception is less than 4 (< 4) Goal: Improve Sensory Perception Outcome: Progressing Problem: Moisture is less than 4 (< 4) Goal: Eliminate Moisture Outcome: Progressing Problem: Activity is less than 4 (< 4) Goal: Improve Activity Outcome: Progressing Problem: Mobility is less than 4 (< 4) Goal: Improve Mobility Outcome: Progressing Problem: Nutrition is Less than 3 (< 3) Goal: Improve Nutrition Outcome: Progressing Problem: Friction Shear is less than 3 (< 3) Goal: Eliminate Friction Shear Outcome: Progressing Problem: INJURY, RISK FOR Goal: Patient will not be injured from a fall during hospitalization Outcome: Progressing Problem: Knowledge Deficit Goal: Patient requires education regarding causes of high risk injury from a fal l Outcome: Progressing Goal: Patient's family requires education regarding causes of high risk injury f rom a fall Outcome: Progressing * Plan of Care - Sharmin Olmedo RN - 03/12/2020 10:43 AM EST Problem: Risk for Falls Goal: No falls during hospitalization Description: Patient will not fall during hospitalization. Outcome: Progressing Problem: Knowledge Deficit Goal: Knowledge - personal safety Description: Patient will verbalize understanding of fall prevention. Outcome: Progressing Problem: Fall Prevention Goal: No fall during Hospitalization Outcome: Progressing Problem: Risk for Infection Goal: The patient will receive immunization screening as indicated Outcome: Progressing Goal: Patient will remain free of infection in operative site Outcome: Progressing Goal: The patient will not develop pneumonia post-operatively Outcome: Progressing Goal: The patient will not develop Catheter Acquired Urinary Tract Infection (CA UTI) Outcome: Progressing Problem: Risk for DVT/PE Goal: Patient will not develop a DVT/PE Outcome: Progressing Problem: Risk for Gastrointestinal Complications Goal: Patient will not develop gastrointestinal complications Description: Nausea/vomiting, constipation, dehydration Outcome: Progressing Problem: Sensory Perception is less than 4 (< 4) Goal: Improve Sensory Perception Outcome: Progressing Problem: Moisture is less than 4 (< 4) Goal: Eliminate Moisture Outcome: Progressing Problem: Activity is less than 4 (< 4) Goal: Improve Activity Outcome: Progressing Problem: Mobility is less than 4 (< 4) Goal: Improve Mobility Outcome: Progressing Problem: Nutrition is Less than 3 (< 3) Goal: Improve Nutrition Outcome: Progressing Problem: Friction Shear is less than 3 (< 3) Goal: Eliminate Friction Shear Outcome: Progressing Problem: INJURY, RISK FOR Goal: Patient will not be injured from a fall during hospitalization Outcome: Progressing Problem: Knowledge Deficit Goal: Patient requires education regarding causes of high risk injury from a fal l Outcome: Progressing Goal: Patient's family requires education regarding causes of high risk injury f rom a fall Outcome: Progressing * Plan Sharmin Chavarria RN - 03/11/2020 9:48 AM EST Problem: Risk for Falls Goal: No falls during hospitalization Description: Patient will not fall during hospitalization. Outcome: Progressing Problem: Knowledge Deficit Goal: Knowledge - personal safety Description: Patient will verbalize understanding of fall prevention. Outcome: Progressing Problem: Fall Prevention Goal: No fall during Hospitalization Outcome: Progressing Problem: Risk for Infection Goal: The patient will receive immunization screening as indicated Outcome: Progressing Goal: Patient will remain free of infection in operative site Outcome: Progressing Goal: The patient will not develop pneumonia post-operatively Outcome: Progressing Goal: The patient will not develop Catheter Acquired Urinary Tract Infection (CA UTI) Outcome: Progressing Problem: Risk for DVT/PE Goal: Patient will not develop a DVT/PE Outcome: Progressing Problem: Risk for Gastrointestinal Complications Goal: Patient will not develop gastrointestinal complications Description: Nausea/vomiting, constipation, dehydration Outcome: Progressing Problem: Sensory Perception is less than 4 (< 4) Goal: Improve Sensory Perception Outcome: Progressing Problem: Moisture is less than 4 (< 4) Goal: Eliminate Moisture Outcome: Progressing Problem: Activity is less than 4 (< 4) Goal: Improve Activity Outcome: Progressing Problem: Mobility is less than 4 (< 4) Goal: Improve Mobility Outcome: Progressing Problem: Nutrition is Less than 3 (< 3) Goal: Improve Nutrition Outcome: Progressing Problem: Friction Shear is less than 3 (< 3) Goal: Eliminate Friction Shear Outcome: Progressing Problem: INJURY, RISK FOR Goal: Patient will not be injured from a fall during hospitalization Outcome: Progressing Problem: Knowledge Deficit Goal: Patient requires education regarding causes of high risk injury from a fal l Outcome: Progressing Goal: Patient's family requires education regarding causes of high risk injury f rom a fall Outcome: Progressing * Plan of Care - Sharmin Olmedo RN - 03/10/2020 9:34 AM EST Problem: Risk for Falls Goal: No falls during hospitalization Description: Patient will not fall during hospitalization. Outcome: Progressing Problem: Knowledge Deficit Goal: Knowledge - personal safety Description: Patient will verbalize understanding of fall prevention. Outcome: Progressing Problem: Fall Prevention Goal: No fall during Hospitalization Outcome: Progressing Problem: Risk for Infection Goal: The patient will receive immunization screening as indicated Outcome: Progressing Goal: Patient will remain free of infection in operative site Outcome: Progressing Goal: The patient will not develop pneumonia post-operatively Outcome: Progressing Goal: The patient will not develop Catheter Acquired Urinary Tract Infection (CA UTI) Outcome: Progressing Problem: Risk for DVT/PE Goal: Patient will not develop a DVT/PE Outcome: Progressing Problem: Risk for Gastrointestinal Complications Goal: Patient will not develop gastrointestinal complications Description: Nausea/vomiting, constipation, dehydration Outcome: Progressing Problem: Sensory Perception is less than 4 (< 4) Goal: Improve Sensory Perception Outcome: Progressing Problem: Moisture is less than 4 (< 4) Goal: Eliminate Moisture Outcome: Progressing Problem: Activity is less than 4 (< 4) Goal: Improve Activity Outcome: Progressing Problem: Mobility is less than 4 (< 4) Goal: Improve Mobility Outcome: Progressing Problem: Nutrition is Less than 3 (< 3) Goal: Improve Nutrition Outcome: Progressing Problem: Friction Shear is less than 3 (< 3) Goal: Eliminate Friction Shear Outcome: Progressing Problem: INJURY, RISK FOR Goal: Patient will not be injured from a fall during hospitalization Outcome: Progressing Problem: Knowledge Deficit Goal: Patient requires education regarding causes of high risk injury from a fal l Outcome: Progressing Goal: Patient's family requires education regarding causes of high risk injury f rom a fall Outcome: Progressing * Mike of Gal Jensen RN - 03/08/2020 2:13 AM EST Problem: Risk for Falls Goal: No falls during hospitalization Description: Patient will not fall during hospitalization. Outcome: Progressing Problem: Knowledge Deficit Goal: Knowledge - personal safety Description: Patient will verbalize understanding of fall prevention. Outcome: Progressing Problem: Fall Prevention Goal: No fall during Hospitalization Outcome: Progressing Problem: Risk for Infection Goal: The patient will receive immunization screening as indicated Outcome: Progressing Goal: Patient will remain free of infection in operative site Outcome: Progressing Goal: The patient will not develop pneumonia post-operatively Outcome: Progressing Goal: The patient will not develop Catheter Acquired Urinary Tract Infection (CA UTI) Outcome: Progressing Problem: Risk for DVT/PE Goal: Patient will not develop a DVT/PE Outcome: Progressing Problem: Risk for Gastrointestinal Complications Goal: Patient will not develop gastrointestinal complications Description: Nausea/vomiting, constipation, dehydration Outcome: Progressing Problem: Sensory Perception is less than 4 (< 4) Goal: Improve Sensory Perception Outcome: Progressing Problem: Moisture is less than 4 (< 4) Goal: Eliminate Moisture Outcome: Progressing Problem: Activity is less than 4 (< 4) Goal: Improve Activity Outcome: Progressing * Significant Event - Des Conway Jr., MD - 03/07/2020 9:47 PM EST Paged due to possible transfusion reaction. Was told patient was experiencing ri gors and tachycardia. Went to assess patient at bedside. Per discussion with pat ient has had rigors before which is usually resolved with tylenol. Denied CP, SO B, or rashes. VS showed low grade fever (100.4) and hypertension (170/49). Physi nikolay exam benign. CBC and type and screen and urinalysis was ordered. Was given t ylenol and benadryl PO (Patient preferred no Demerol because of sedative effects ). Blood bank was notified by nursing and transfusion was temporarily halted. Re peat CBC showed H/H below 7 so called blood bank. Per discussion said to prepare to transfuse one unit and per approval by blood bank resident will release the transfusion order. Will continue to monitor. See clinical pathology note for more detail. * Significant Event - Zack Hickey MD PhD - 03/07/2020 9:46 PM EST Transfusion Reaction Evaluation Clinical Data: Patricia Cotton is a 65 y.o. y/o woman with past medical history of CAD s/p stent pl acement in 2009 and 2016, HTN, T2DM, HLD, COPD, CKD IV, and CMML diagnosed in 2019. On 03/07/2020, a transfusion of 1 unit of irradiated red blood cells was ordered for symptomatic anemia with hemoglobin of 6.0 and hematocrit of 17.4. At 1938, the transfusion was started. At 2008, 120 mL into transfusion of red blood cell s, the patient developed rigors, fever, and an increase in heart rate. Maximum b mario temperature since admission preceding the reaction was 37.1 C. The patient s history of transfusion at [facility] consists of 2 units of RBCs and [address] atelets on 03/07/2020. She has no past history of transfusion reactions. Vital signs: Time Blood Pressure mmHg Temp C Pulse beats/min Resp breaths/min Pre-transfusion 1803 119/48 37 74 18 Time of reaction 2008 152/82 37 89 24 Follow-up time 2026 170/49 38 82 22 The transfusion was stopped and the blood bank notified at 2039. The patient rec eived tylenol with resolution of rigors. Laboratory Evaluation: The patient typed as O Positive on repeat testing of the pre- and post-transfusi on samples. The RBC unit was retyped as O Positive. A pre- and post-transfusion direct antiglobulin test was negative. A pre-transfusion and post-transfusion serum sample showed no hemolysis. A post transfusion urine sample showed no hem olysis. Interpretation: Febrile non-hemolytic transfusion reaction. Severity: Non-severe Imputability: Probable Comments: The patients symptoms are most consistent with a febrile non-he molytic transfusion reaction. Febrile reactions are commonly associated with t he transfusion of white cell-derived cytokines, which accumulate during blood st orage. Febrile reactions may also result from anti-platelet or anti-leukocyte antibodies in the recipient, which react with transfused donor cells. If the p atient has repeated, severe febrile non-hemolytic transfusion reactions, please contact the Transfusion Medicine physician through the Blood Bank ([phone]) . I have reviewed the available clinical history and laboratory results, reviewed the interpretation with the trainee physician, and made edits as appropriate. I agree with the final assessment and plan presented. * Assessment & Plan Note - Jacque Montano, PT - 03/07/2020 8:39 AM EST Physical Therapy Acute Care Examination Medical Diagnosis: AML History of Present Illness: Per EPIC: "Ms. Patricia Cotton is a 65 y.o. female with a past medical history of coronary artery disease status post 2 stents in 2009 to in 2017, hypertension, type 2 diabetes on insulin, hyperlipidemia, COPD, CKD stage IV, atrophic left kidney, diverticulosis, pancytopenia, presented to [facility] for complaint of weakness. Patient was scheduled to receive 1 unit RBC and 1 unit platelet today but patient was unable to make to outpatient because of weakness. Patient has diagnosis of CMML 1, was started on Decitabine-Cedazuridine. Patient follows Dr. Carter in [place] ? Bone marrow 03/2019 , core biopsy, aspirate, clot, and peripheral blood:Myelodysplastic/myeloproliferative neoplasm with mildly increased bone marrow blasts (approximately 5% by CD34 immunohistochemical staining), favor chronic myelomonocytic leukemia-1 (CMML-1). The peripheral blood shows leukocytosis with absolute neutrophilia (11.8 K/uL), absolute monocytosis (3.1 K/uL), frequent dysplastic granulocytes and nucleated red blood cells, and rare blasts. The marrow is markedly hypercellular with trilineage dysplasia. 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 ?These findings support the CMML-1. PDGFRA, PDGFRB, FGFR1, JAK2 mutations negative. Myeloid gene panel Myeloid Markers (expressed as % of LYMPHOCYTE gate): CD11b = 48, CD13 = 71, CD14 = 14, CD15 = 43, CD33 = 95, CD41 = 36, CD64 = 27, CD71 = 37, CD117 = 44. ? Patient reports that her black stool correspond to the initiation of chemotherapy. Patient denies history of ulcers, GERD. Patient has not noted hematochezia, gross blood in stool. Whenever she initiates chemotherapy she has diarrhea on day 1 and followed by constipation. Patient denies fevers chills nausea vomiting headache or SOB. Patient reports feeling intolerant of cold and sometimes heat infrequently. Her last colonoscopy was in February 2019 where 2 polyps were removed and were negative for malignancy. At the outside hospital vital signs stable, FOBT positive, chest x-ray negative for acute disease, port in place and pacemaker in place. Elevated creatinine 1.62, GFR 33, albumin 2.6, calcium 8.5, WBC 2.0, hemoglobin 5.5, platelets 5, ANC 4%, promyelocytes 1%, blasts 14%, smudge cell+2. Patient received 1 unit RBC and 1 unit platelets at outside hospital prior to transfer. Patient has been requiring frequent transfusions, with increased blasts percent, concern for transformation to AML. Patient being admitted for further hematological management." Date of Onset: Prior to admission Date of Admission: 03/06/2020 10:19:00 PM Demographics: Age: 65 Gender: Female Past Medical History and Radiographics: Significant rehabilitation considerations: Per H&P: "past medical history of CAD s/p 4 stents (on aspirin and plavix, 2 stents placed in 2009 and 2 stents in 2016), systolic CHF (EF 40%) with pacemaker and debfibrillator (medtronic, replaced in 2018), obesity, DM2, HLD, ?COPD, CKD4, active smoker (47 pack year)" Rehabilitation Precautions/Restrictions: DNR/DNI OOB ADLIB Telemetry Neutropenic PT 1 hour enhanced PPE precautions after breathing treatments SUBJECTIVE Mental Status: Orientation:The patient is oriented to person, place and time. Command Following:The patient is able to follow 3+ step commands Prior Functional Level: The patient reported the premorbid level of function was Prior to admission pt reports using a manual wheelchair to go long distances in the community and sometimes her has to push her around. Within her house she ambulates independently without a device. occasionally has to assist with showering and dressing. Pt does not drive and uses para transit to get to dr appointments. Occupation: retired. used to work at [employer] Social History: Patient does not live alone. Patient lives with . If needed: Family member is willing to assist. reports he is physically well and able to help as needed Home Environment: lives in assisted living, no stairs to enter. single story living. has elevator access. tub shower, no shower chair, with grab bars. normal toilet seat- the facility said they can come put in a raised toilet seat Equipment Owned: manual wheelchair; rollator walker Pain: Patient has no complaints of pain currently. Pain Medication Today: no. OBJECTIVE General Observation: + PIV L UE - pt receiving blood currently due to low H&H. Pt seated in bedside chair in NAD. Lines and tubes intact. Bedside RN present and consents to PT treatment. No chair alarm noted at start of session. Range of Motion:WFL's throughout for functional mobility Strength:Flo UE's grossly 4/5 throughout. Professional Services Consultant strong and equal flo Flo LE's grossly 4/5 throughout and equal flo Skin Integrity Screen: Scattered bruising noted throughout flo UE's + PIV L UE All other visualized skin intact Tone/Spasticity: No relevant impairments. Sensation: Grossly intact. Balance: Static balance in a seated position: independent Dynamic balance in a seated position: independent Static balance in a standing position: contact guard without device Dynamic balance in a standing position: contact guard to min assist without device Endurance: fair. Coordination: Upper and lower extremity gross motor coordination grossly intact. Therapeutic/Functional Activities: Bed Mobility: Not assessed. Transfers: Patient transferred sit to/from stand requiring contact guard assistance of 1 person. Patient used the following equipment: Arms of chair. pt uses UE's to assist with sit to stand. Therapist assisting to manage lines. Locomotion/Wheelchair: Not assessed. Locomotion/Gait/Ambulation: Patient was contact guard with gait/ambulation of 1 person for 5 feet forward and backward . No assistive devices were required. slow gait speed, small shuffled steps flo, increased lateral movement over stance leg, decreased push off and trail limb, mildly unsteady requiring contact guard assist Pt noted to have dyspnea on exertion after short distance gait, improves with seated rest break. Stairs: Not assessed. Vital Signs: BP: 110/54 mmHg HR: 77 bpm O2: 97% on room air Outcome Measures: [facility] AM-PAC "6 Clicks" Basic Mobility Inpatient Short Form: Turning over in bed: A little difficulty (3) Sitting down on and standing up from a chair with arms: Unable to perform (1) Moving from lying on back to sitting on the side of the bed: A little difficulty (3) Moving to and from a bed to a chair (including a wheelchair): A little help (3) Walking in hospital room: A little help (3) Climbing 3-5 steps with a railing: A little help (3) Raw Score 16 /24. Interventions: None provided today. Education: Educational needs: role of acute care PT; PT plan of care; safety; functional mobility; discharge planning Barriers to Learning: No barriers. Learning Preference: Auditory. Demonstration. Kinesthetic/tactile. Mode of education provided: Demonstration. Explanation. Audience: Patient. Education Provided: role of acute care PT; PT plan of care; safety; functional mobility; discharge planning . Response: Applied knowledge. Indicates understanding. ASSESSMENT Moderate Complexity Evaluation: A history of present problem with 1-2 personal factors and/or comorbidities that impact the plan of care. An examination of body system(s) using standardized tests and measures addressing a total of 3 or more elements from any of the following: body structures and functions, activity limitations, and/or participation restrictions. An evolving clinical presentation with changing characteristics. Clinical decision-making of moderate complexity using standardized patient assessment instrument and/or measurable assessment of functional outcome. Response to Evaluation: The session was tolerated well. Call dean was in patient's reach at end of session. Pain: Patient has no complaints of pain currently. Other Rehabilitation Considerations: Patient's progress may be impaired by the following potential barriers: Medical condition. Support Structure: Support structure is good. Pt reports was assisting with ADL's and mobility as needed at baseline and can continue to do so at discharge. Pt reports living in assisted living facility which is fully accessible. Strengths: Independent premorbid function. Transfers. Social/family support. Strength. Goals: Patient's functional goals: to get better and go home The patient's therapy goals are based on limitations/impairments in the following areas: Balance. Bed Mobility. Gait. Stairs/Curbs/Environmental barrier negotiation. Strength. Transfers. Wheelchair Mobility. Short Term Goals: 1. Patient will ambulate 150 feet with least restrictive device and supervision within 1 week 2. Patient will perform all transfers with least restrictive device and supervision within 1 week Shelter Goals: 1. Patient will ambulate 500 feet with least restrictive device and modified independence within 3 weeks 2. Patient will perform all transfers with least restrictive device and modified independence within 3 weeks PLAN Treatment Frequency, Duration and Interventions: Restorative Physical Therapy is recommended for 5x per week for 3 weeks Treatment is to include: Gait Training. Manual Therapy. Neuromuscular Re-education. Therapeutic Activity. Therapeutic Exercise. Wheelchair Management Self Care/Home Management. Patient/family/professionals conference. Equipment Provided: None issued this visit. Equipment Recommended: to be assessed as patient progresses. Pt has rollator and manual wheelchair at home currently. . Recommended Physical Therapy Follow Up: Upon acute care discharge, the following is currently recommended: Anticipate patient will be able to discharge home with assist when medically ready. Pt may benefit from home PT to address fatigue and endurance impairments, pending patient progress Recommended Consults: None currently. Development of Plan of Care: Participants included: Patient. Nurse. Goal Review Visit Number: 1 Visit Number: Today's visit is number 1 Program: Oncology (Therapist may be reached on Vocera) SESSION: Duration: 40 CHARGES: - ORDER - Physical Therapy Treatment 1 Units - ORDER - PHYSICAL THERAPY CONSULT 1 Units - CANCER VISIT 1 Units 72932 - CHARGE - PT EVAL; MODERATE COMPLEXITY 3 Units - 0 Units - 0 Units - 0 Units - 0 Units Total treatment minutes: 40.00 Minutes Electronically Signed by: Jacque Montano PT, DPT, 03/07/2020 9:32:01 AM * Plan of Care - Jak Harden RN - 03/07/2020 3:59 AM EST Problem: Risk for Falls Goal: No falls during hospitalization Description: Patient will not fall during hospitalization. Outcome: Progressing Problem: Knowledge Deficit Goal: Knowledge - personal safety Description: Patient will verbalize understanding of fall prevention. Outcome: Progressing Problem: Fall Prevention Goal: No fall during Hospitalization Outcome: Progressing Problem: Risk for Infection Goal: The patient will receive immunization screening as indicated Outcome: Progressing Goal: Patient will remain free of infection in operative site Outcome: Progressing Goal: The patient will not develop pneumonia post-operatively Outcome: Progressing Goal: The patient will not develop Catheter Acquired Urinary Tract Infection (CA UTI) Outcome: Progressing Problem: Risk for DVT/PE Goal: Patient will not develop a DVT/PE Outcome: Progressing Problem: Risk for Gastrointestinal Complications Goal: Patient will not develop gastrointestinal complications Description: Nausea/vomiting, constipation, dehydration Outcome: Progressing * Provider Notified - Jak Harden RN - 03/07/2020 3:35 AM EST Night float Dr Conway made aware of pt's BUN = 82, creatinine = 1.51, WBC = 1.3, H&H = 5.9/17.0, plt = 12, T3 = 1.41, TSH = 5.700 - will transfuse PRBCs per standing orders. No other concerns at this time. Will continue to monitor. * Significant Event - Des Conway Jr., MD - 03/07/2020 2:35 AM EST Discontinued heparin sq due to profound thrombocytopenia and anemia. documented in this encounter Plan of Treatment Date/Time Name Type Priority Associated Diag noses 03/07/2020 6:09 PM EST Transfuse RBC Units Nursing Routine (Once) 1 Unit Over 2 Transfusion Hours Each 03/07/2020 6:09 PM EST Transfuse RBC Units Nursing Routine (Once) 1 Unit Over 2 Transfusion Hours Each 03/07/2020 7:54 PM EST EKG 12 Lead ECG Routine 03/11/2020 3:12 AM EST Transfuse RBC Units Nursing STAT (Once) 1 Unit Over 2 Transfusion Hours Each 03/11/2020 3:12 AM EST Transfuse RBC Units Nursing STAT (Once) 1 Unit Over 2 Transfusion Hours Each 03/11/2020 10:51 PM EST Transfuse RBC Units Nursing STAT (Once) 1 Unit Over 2 Transfusion Hours Each 03/11/2020 10:51 PM EST Transfuse RBC Units Nursing STAT (Once) 1 Unit Over 2 Transfusion Hours Each 03/15/2020 11:49 PM EST Cytogenetics Oncology, Pathology and Routine Blood and Bone Marrow Cytology 03/17/2020 1:00 AM EST Blood culture ; Microbiology Routine Peripheral 03/17/2020 1:00 AM EST Blood culture ; Microbiology Routine Peripheral 03/17/2020 1:00 AM EST Blood culture ; Line Microbiology Routine 03/17/2020 1:08 AM EST Type and Screen Blood Bank Routine 03/17/2020 10:25 AM EST Prepare platelet HLA Blood Bank Routine matched 1 Unit; 300 03/18/2020 9:41 AM EST Prepare platelet HLA Blood Bank Routine matched 1 Unit; 300 Order Schedule Name Type Priority Associated Diag noses 4X Daily (AC & HS) for 30 Days starting 03/07/2020 until 04/05/2020, 34 completed POCT glucose, docked Point of Care Routine Testing-Docked Device STAT for 1 Occurrences starting 03/07/19 21 until 03/07/2020 Prepare RBC 1 Unit Blood Bank STAT STAT for 1 Occurrences starting 03/07/19 21 until 03/07/2020 Prepare RBC 1 Unit Blood Bank STAT STAT for 1 Occurrences starting 03/07/19 21 until 03/07/2020 Prepare RBC 1 Unit Blood Bank STAT STAT for 1 Occurrences starting 03/08/19 21 until 03/08/2020 Prepare RBC 1 Unit Blood Bank STAT STAT for 1 Occurrences starting 03/09/19 21 until 03/09/2020 Prepare RBC 1 Unit Blood Bank STAT STAT for 1 Occurrences starting 03/10/19 21 until 03/10/2020 Prepare RBC 1 Unit Blood Bank STAT STAT for 1 Occurrences starting 03/11/19 21 until 03/11/2020 Prepare RBC 1 Unit Blood Bank STAT STAT for 1 Occurrences starting 03/11/19 21 until 03/11/2020 Prepare RBC 1 Unit Blood Bank STAT STAT for 1 Occurrences starting 03/12/19 21 until 03/12/2020 Prepare RBC 1 Unit Blood Bank STAT Once for 1 Occurrences starting 03/12/19 21 until 03/12/2020 Prepare RBC 1 Unit Blood Bank Routine STAT for 1 Occurrences starting 03/13/19 21 until 03/13/2020 Prepare RBC 1 Unit Blood Bank STAT STAT for 1 Occurrences starting 03/14/19 21 until 03/14/2020 Prepare RBC 1 Unit Blood Bank STAT Daily for 30 Days starting 03/16/2020 un til 04/14/2020, 3 completed CBC and Differential Lab Routine Once for 1 Occurrences starting 03/15/19 21 until 03/15/2020 Cytogenetics Oncology, Pathology and Routine Blood and Bone Marrow Cytology Daily for 3 Days starting 03/17/2020 unt il 03/19/2020, 2 completed Basic Metabolic Panel Lab Routine STAT for 1 Occurrences starting 03/17/19 21 until 03/17/2020 Prepare RBC 1 Unit Blood Bank STAT STAT for 1 Occurrences starting 03/18/19 21 until 03/18/2020 Prepare RBC 1 Unit Blood Bank STAT Health Maintenance Due Date Last Done Comments Hepatitis C Screening (B. 1955 [id number]) MMR Vaccines (1 of 1 - 01/22/1956 Standard series) Varicella Vaccines (1 of 01/22/1956 2 - 2-dose childhood series) Pneumococcal Vaccine: 1961 Pediatrics (0 to 5 Years) and At-Risk Patients (6 to 64 Years) (1 of 3 - PCV13) DTaP,Tdap,and Td Vaccines 1962 (1 - Tdap) Breast Cancer Screening 2 2005 years Colon Cancer Screening 10 2005 yrs Zoster Vaccines (1 of 2) 2005 Osteoporosis Screening 2 01/22/2020 yr Pneumococcal Vaccine: 65+ 01/22/2020 Years (1 of 1 - PPSV23) Influenza Vaccine Completed 12/14/2019, 12/17/2018, 01/05/2018, Additional history exists HIB Vaccines Aged Out No longer eligible based on patient's age to complete this topic Hepatitis A Vaccines Aged Out No longer eligibl e based on patient's age to complete this topic Hepatitis B Vaccines Aged Out No longer eligibl e based on patient's age to complete this topic IPV Vaccines Aged Out No longer eligible based on patient's age to complete this topic documented as of this encounter Implants Device Identifier Shelf Expiration Date Model / Serial / L ot Implanted Type Area Manufactur er 12/11/2022 [id number] / / [id number] Resolution 360 Clip 235cm Bx 1 - Clip BOSTO N [id number] SCIENTIFIC Implanted: Qty: 1 on 03/14/2020 by Taco Powell MD at OR ENDO Description:Small bowel 12/11/2022 [id number] / / [id number] Resolution 360 Clip 235cm Bx 1 - Clip BOSTO N [id number] SCIENTIFIC Implanted: Qty: 1 on 03/14/2020 by Taco Powell MD at OR ENDO documented as of this encounter Procedures Comments Procedure Name Priority Date/Time Associated Diag nosis PLATELET COUNT Routine 03/18/2020 3:41 PM EST TRANSFUSE PLATELET HLA Routine 03/18/2020 MATCHED (ONCE) 3:25 PM EST POCT GLUCOSE, DOCKED Routine 03/18/2020 11:46 AM EST PREPARE HLA PLATELET Routine 03/18/2020 MATCHED 9:41 AM EST CBC Routine 03/18/2020 9:01 AM EST TRANSFUSE RBC (ONCE) STAT 03/18/2020 7:58 AM EST POCT GLUCOSE, DOCKED Routine 03/18/2020 7:37 AM EST CBC AND DIFFERENTIAL Routine 03/18/2020 1:12 AM EST PHOSPHORUS LEVEL Routine 03/18/2020 1:12 AM EST MAGNESIUM LEVEL Routine 03/18/2020 1:12 AM EST BASIC METABOLIC PANEL Routine 03/18/2020 1:12 AM EST POCT GLUCOSE, DOCKED Routine 03/17/2020 9:14 PM EST POCT GLUCOSE, DOCKED Routine 03/17/2020 4:43 PM EST PLATELET COUNT Routine 03/17/2020 4:03 PM EST TRANSFUSE PLATELET HLA Routine 03/17/2020 MATCHED (ONCE) 3:32 PM EST POCT GLUCOSE, DOCKED Routine 03/17/2020 11:33 AM EST TRANSFUSE RBC (ONCE) STAT 03/17/2020 11:27 AM EST PREPARE HLA PLATELET Routine 03/17/2020 MATCHED 10:25 AM EST POCT GLUCOSE, DOCKED Routine 03/17/2020 7:36 AM EST XR CHEST FRONTAL ONLY Routine 03/17/2020 32152 3:22 AM EST URINALYSIS WITH Routine 03/17/2020 MICROSCOPIC 1:08 AM EST CBC AND DIFFERENTIAL Routine 03/17/2020 1:08 AM EST TYPE AND SCREEN Routine 03/17/2020 1:08 AM EST PHOSPHORUS LEVEL Routine 03/17/2020 1:08 AM EST MAGNESIUM LEVEL Routine 03/17/2020 1:08 AM EST BASIC METABOLIC PANEL Routine 03/17/2020 1:08 AM EST BLOOD CULTURE Routine 03/17/2020 1:00 AM EST BLOOD CULTURE Routine 03/17/2020 1:00 AM EST BLOOD CULTURE Routine 03/17/2020 1:00 AM EST POCT GLUCOSE, DOCKED Routine 03/16/2020 9:56 PM EST POCT GLUCOSE, DOCKED Routine 03/16/2020 4:28 PM EST POCT GLUCOSE, DOCKED Routine 03/16/2020 11:29 AM EST POCT GLUCOSE, DOCKED Routine 03/16/2020 8:01 AM EST CBC AND DIFFERENTIAL Routine 03/16/2020 12:25 AM EST PHOSPHORUS LEVEL Routine 03/16/2020 12:25 AM EST MAGNESIUM LEVEL Routine 03/16/2020 12:25 AM EST BASIC METABOLIC PANEL Routine 03/16/2020 12:25 AM EST POCT GLUCOSE, DOCKED Routine 03/15/2020 10:02 PM EST POCT GLUCOSE, DOCKED Routine 03/15/2020 4:28 PM EST CBC AND DIFFERENTIAL Timed 03/15/2020 11:48 AM EST POCT GLUCOSE, DOCKED Routine 03/15/2020 11:42 AM EST POCT GLUCOSE, DOCKED Routine 03/15/2020 7:53 AM EST CBC AND DIFFERENTIAL Timed 03/15/2020 12:16 AM EST PHOSPHORUS LEVEL Routine 03/15/2020 12:16 AM EST MAGNESIUM LEVEL Routine 03/15/2020 12:16 AM EST BASIC METABOLIC PANEL Routine 03/15/2020 12:16 AM EST POCT GLUCOSE, DOCKED Routine 03/14/2020 11:00 PM EST TRANSFUSE RBC (ONCE) STAT 03/14/2020 10:00 PM EST TRANSFUSE PLATELET HLA Routine 03/14/2020 MATCHED (ONCE) 7:47 PM EST POCT GLUCOSE, DOCKED Routine 03/14/2020 4:35 PM EST CBC AND DIFFERENTIAL Timed 03/14/2020 4:03 PM EST POCT GLUCOSE, DOCKED Routine 03/14/2020 3:04 PM EST UPPER GI ENDOSCOPY 03/14/2020 GI bleeding -possi farooq W/CONTROL, BLEEDING, ANY 2:06 PM EST Small GI ble eding METHOD SMALL INTESTINAL 03/14/2020 GI bleeding -possib ly ENDO/ENTEROSCOPY, > 2ND 2:06 PM EST Small GI blee ding PORTION DUODENUM, NOT W/ILEUM DX W/WO SPECIMEN (SEP PROC) POCT GLUCOSE, DOCKED Routine 03/14/2020 11:40 AM EST POCT GLUCOSE, DOCKED Routine 03/14/2020 7:55 AM EST PREPARE HLA PLATELET Routine 03/14/2020 MATCHED 5:22 AM EST PLATELET COUNT Routine 03/14/2020 4:58 AM EST TRANSFUSE PLATELET HLA Routine 03/14/2020 MATCHED (ONCE) 4:11 AM EST CBC AND DIFFERENTIAL Timed 03/14/2020 12:29 AM EST PHOSPHORUS LEVEL Routine 03/14/2020 12:29 AM EST MAGNESIUM LEVEL Routine 03/14/2020 12:29 AM EST BASIC METABOLIC PANEL Routine 03/14/2020 12:29 AM EST SMALL BOWEL ENTEROSCOPY 03/14/2020 12:00 AM EST POCT GLUCOSE, DOCKED Routine 03/13/2020 9:29 PM EST BLOOD CULTURE Routine 03/13/2020 8:41 PM EST BLOOD CULTURE Routine 03/13/2020 8:27 PM EST BLOOD CULTURE Routine 03/13/2020 8:25 PM EST URINALYSIS WITH Routine 03/13/2020 MICROSCOPIC 8:25 PM EST XR CHEST FRONTAL ONLY Routine 03/13/2020 73778 8:09 PM EST POCT GLUCOSE, DOCKED Routine 03/13/2020 4:34 PM EST PREPARE HLA PLATELET Routine 03/13/2020 MATCHED 2:24 PM EST LAB RESULTS 03/13/2020 (OUTSIDE/HISTORICAL) 1:03 PM EST POCT GLUCOSE, DOCKED Routine 03/13/2020 11:38 AM EST CBC AND DIFFERENTIAL Timed 03/13/2020 10:19 AM EST POCT GLUCOSE, DOCKED Routine 03/13/2020 7:41 AM EST TRANSFUSE RBC (ONCE) Routine 03/13/2020 3:50 AM EST PHOSPHORUS LEVEL Routine 03/13/2020 1:35 AM EST MAGNESIUM LEVEL Routine 03/13/2020 1:35 AM EST BASIC METABOLIC PANEL Routine 03/13/2020 1:35 AM EST PREPARE PLATELET PHERESIS Routine 03/13/2020 12:04 AM EST CBC AND DIFFERENTIAL Timed 03/12/2020 10:07 PM EST TRANSFUSE PLATELET Routine 03/12/2020 PHERESIS (ONCE) 9:40 PM EST POCT GLUCOSE, DOCKED Routine 03/12/2020 9:17 PM EST TRANSFUSE RBC (ONCE) STAT 03/12/2020 5:23 PM EST POCT GLUCOSE, DOCKED Routine 03/12/2020 4:42 PM EST PREPARE PLATELET PHERESIS Routine 03/12/2020 3:56 PM EST PLATELET COUNT Routine 03/12/2020 2:57 PM EST TRANSFUSE PLATELET Routine 03/12/2020 PHERESIS (ONCE) 2:45 PM EST POCT GLUCOSE, DOCKED Routine 03/12/2020 12:21 PM EST NM GI BLOOD LOSS IMAGING Routine 03/12/2020 [id number] 11:58 AM EST HLA ANTIBODY ID SCREEN Routine 03/12/2020 9:31 AM EST PREPARE PLATELET PHERESIS Routine 03/12/2020 8:52 AM EST POCT GLUCOSE, DOCKED Routine 03/12/2020 7:43 AM EST CBC AND DIFFERENTIAL Timed 03/12/2020 5:07 AM EST PHOSPHORUS LEVEL Routine 03/12/2020 5:07 AM EST MAGNESIUM LEVEL Routine 03/12/2020 5:07 AM EST COMPREHENSIVE METABOLIC Timed 03/12/2020 PANEL 5:07 AM EST TRANSFUSE RBC (ONCE) STAT 03/11/2020 10:51 PM EST POCT GLUCOSE, DOCKED Routine 03/11/2020 9:35 PM EST CBC AND DIFFERENTIAL Timed 03/11/2020 4:45 PM EST POCT GLUCOSE, DOCKED Routine 03/11/2020 4:34 PM EST TRANSFUSE PLATELET Routine 03/11/2020 PHERESIS (ONCE) 4:09 PM EST PREPARE PLATELET PHERESIS Routine 03/11/2020 1:56 PM EST FECAL OCCULT BLOOD, UPPER Routine 03/11/2020 GI (HEMOCCULT-SENSA) 11:49 AM EST POCT GLUCOSE, DOCKED Routine 03/11/2020 11:40 AM EST POCT GLUCOSE, DOCKED Routine 03/11/2020 7:37 AM EST TRANSFUSE RBC (ONCE) STAT 03/11/2020 3:12 AM EST TYPE AND SCREEN STAT 03/11/2020 1:20 AM EST URINE CULTURE Routine 03/11/2020 12:44 AM EST CBC AND DIFFERENTIAL Routine 03/11/2020 12:28 AM EST PHOSPHORUS LEVEL Routine 03/11/2020 12:28 AM EST MAGNESIUM LEVEL Routine 03/11/2020 12:28 AM EST VANCOMYCIN, RANDOM Routine 03/11/2020 12:28 AM EST BASIC METABOLIC PANEL Timed 03/11/2020 12:28 AM EST POCT GLUCOSE, DOCKED Routine 03/10/2020 9:05 PM EST MRSA CULTURE Routine 03/10/2020 7:05 PM EST XR CHEST FRONTAL ONLY Routine 03/10/2020 [id number] 6:51 PM EST BLOOD CULTURE Routine 03/10/2020 6:45 PM EST BLOOD CULTURE Routine 03/10/2020 6:45 PM EST POCT GLUCOSE, DOCKED Routine 03/10/2020 4:57 PM EST TRANSFUSE RBC (ONCE) STAT 03/10/2020 1:38 PM EST POCT GLUCOSE, DOCKED Routine 03/10/2020 11:26 AM EST PLATELET COUNT Routine 03/10/2020 9:00 AM EST TRANSFUSE PLATELET Routine 03/10/2020 PHERESIS (ONCE) 8:47 AM EST POCT GLUCOSE, DOCKED Routine 03/10/2020 7:54 AM EST PREPARE PLATELET PHERESIS Routine 03/10/2020 2:17 AM EST CBC AND DIFFERENTIAL Routine 03/10/2020 12:23 AM EST PHOSPHORUS LEVEL Routine 03/10/2020 12:23 AM EST MAGNESIUM LEVEL Routine 03/10/2020 12:23 AM EST BASIC METABOLIC PANEL Timed 03/10/2020 12:23 AM EST POCT GLUCOSE, DOCKED Routine 03/09/2020 9:16 PM EST POCT GLUCOSE, DOCKED Routine 03/09/2020 4:45 PM EST CBC AND DIFFERENTIAL Routine 03/09/2020 11:51 AM EST FOLATE Routine 03/09/2020 11:51 AM EST POCT GLUCOSE, DOCKED Routine 03/09/2020 11:32 AM EST PARTIAL THROMBOPLASTIN Routine 03/09/2020 TIME (PTT) 9:40 AM EST PROTIME INR Routine 03/09/2020 9:40 AM EST FIBRINOGEN LEVEL Routine 03/09/2020 9:40 AM EST RETICULOCYTES Routine 03/09/2020 9:40 AM EST VITAMIN B12 Routine 03/09/2020 9:40 AM EST TRANSFUSE RBC (ONCE) STAT 03/09/2020 9:28 AM EST POCT GLUCOSE, DOCKED Routine 03/09/2020 7:45 AM EST CBC Routine 03/09/2020 12:04 AM EST PHOSPHORUS LEVEL Routine 03/09/2020 12:04 AM EST MAGNESIUM LEVEL Routine 03/09/2020 12:04 AM EST COMPREHENSIVE METABOLIC Routine 03/09/2020 PANEL 12:04 AM EST POCT GLUCOSE, DOCKED Routine 03/08/2020 9:28 PM EST POCT GLUCOSE, DOCKED Routine 03/08/2020 4:40 PM EST EKG 12-LEAD - CMAXX 03/08/2020 REPORT 2:29 PM EST EKG 12-LEAD - CMAXX 03/08/2020 REPORT 2:29 PM EST EKG 12-LEAD Routine 03/08/2020 2:29 PM EST CBC Routine 03/08/2020 11:37 AM EST POCT GLUCOSE, DOCKED Routine 03/08/2020 11:[address] ABDOMEN PELVIS WITHOUT STAT 03/08/2020 CONTRAST [id number] 9:46 AM EST TRANSFUSE RBC (ONCE) STAT 03/08/2020 8:56 AM EST POCT GLUCOSE, DOCKED Routine 03/08/2020 7:48 AM EST TRANSFUSE RBC (ONCE) Routine 03/08/2020 2:44 AM EST CBC AND DIFFERENTIAL Routine 03/08/2020 2:30 AM EST URIC ACID Routine 03/08/2020 2:30 AM EST PHOSPHORUS LEVEL Routine 03/08/2020 2:30 AM EST MAGNESIUM LEVEL Routine 03/08/2020 2:30 AM EST LACTATE DEHYDROGENASE Routine 03/08/2020 2:30 AM EST HAPTOGLOBIN Routine 03/08/2020 2:30 AM EST COMPREHENSIVE METABOLIC Routine 03/08/2020 PANEL 2:30 AM EST URINALYSIS WITH REFLEX Routine 03/07/2020 URINE CULTURE 9:50 PM EST FECAL OCCULT BLOOD, LOWER Routine 03/07/2020 GI (HEMOCCULT-ICT), FIT 9:48 PM EST TESTING, POCT GLUCOSE, DOCKED Routine 03/07/2020 9:16 PM EST CBC AND DIFFERENTIAL Routine 03/07/2020 8:26 PM EST HC BLOOD TYPING;ABO Routine 03/07/2020 8:25 PM EST EKG 12-LEAD - CMAXX 03/07/2020 REPORT 7:54 PM EST EKG 12-LEAD - CMAXX 03/07/2020 REPORT 7:54 PM EST EKG 12-LEAD Routine 03/07/2020 7:54 PM EST Procedure Note - Interface, Received Via Department [employer] - 03/07/2020 7:54 PM EST Ventricula r Rate: 87 BPM Atrial Rate: 87 BPM P-R Interval: 128 ms QRS Duration: 118 ms Q-T Interval: 416 ms QTC Calculatio n(Bazett): 500 ms P Dequincy: 54 degrees R Dequincy: 75 degrees T Dequincy: -16 degrees : SINUS RHYTHM : LOW VOLTAGE QRS : INCOMPLETE RIGHT BUNDLE BRANCH BLOCK PATTERN : ST AND NONSPECIFI C T WAVE ABNORMALIT IES T WAVE ABNORMALIT Y. : NONSPECIFI C ANTEROLATE RAL LEADS : ABNORMAL ECG : WHEN COMPARED WITH ECG OF 0 09:45, : VENT. RATE HAS INCREASED BY 29 BPM : NON SPECIFIC T WAVE ABNORMALIT Y INFERIOR LEADS : QT HAS LENGTHENED : THIS IS A PRELIMINAR Y RESULT. EKG 12-LEAD Routine 03/07/2020 7:54 PM EST TRANSFUSE RBC (ONCE) Routine 03/07/2020 6:09 PM EST TRANSFUSE PLATELET Routine 03/07/2020 PHERESIS (ONCE) 6:06 PM EST PLATELET COUNT Routine 03/07/2020 5:45 PM EST POCT GLUCOSE, DOCKED Routine 03/07/2020 4:45 PM EST PREPARE PLATELET PHERESIS Routine 03/07/2020 12:31 PM EST POCT GLUCOSE, DOCKED Routine 03/07/2020 12:21 PM EST PARTIAL THROMBOPLASTIN Routine 03/07/2020 TIME (PTT) 10:47 AM EST PROTIME INR Routine 03/07/2020 10:47 AM EST CBC AND DIFFERENTIAL Routine 03/07/2020 10:47 AM EST TRANSFUSE RBC (ONCE) STAT 03/07/2020 9:18 AM EST POCT GLUCOSE, DOCKED Routine 03/07/2020 8:08 AM EST COVID-19 PCR Routine 03/07/2020 12:47 AM EST CONFIRMATORY TYPE Routine 03/07/2020 12:47 AM EST CROSSMATCH, ADDITIONAL Routine 03/07/2020 12:47 AM EST CBC Routine 03/07/2020 12:47 AM EST TYPE AND SCREEN Routine 03/07/2020 12:47 AM EST T3, FREE Routine 03/07/2020 12:47 AM EST TSH Routine 03/07/2020 12:47 AM EST T4, FREE Routine 03/07/2020 12:47 AM EST COMPREHENSIVE METABOLIC Routine 03/07/2020 PANEL 12:47 AM EST POCT GLUCOSE, DOCKED Routine 03/07/2020 12:16 AM EST XR CHEST FRONTAL ONLY Routine 03/07/2020 [id number] 12:10 AM EST CYTOGENETICS ONCOLOGY, Routine 03/07/2020 BLOOD AND BONE MARROW 12:00 AM EST HEMATOPATHOLOGY Routine 03/07/2020 12:00 AM EST documented in this encounter Results * Platelet count (03/18/2020 3:41 PM EST) Platelet Count 18 (LL)Comment: No significant 150 - 400 10*3/ uL [facility] change since last result [facility] called Pathology Specimen EDTA Whole Blood Performing Organization Address City/State/Zipcode Ph one Number [facility] [address] [place], [place] [address] [facility] [address], [place] [address] Clin Pathology * POCT glucose, docked (03/18/2020 11:46 AM EST) POC Glucose 124 70 - 140 mg/dL [facility] POC Specimen Whole Blood Performing Organization Address [facility] Ph one Number POINT OF CARE TEST [address] [place] [address] [facility] POC [address] [place] [address] * CBC (03/18/2020 9:01 AM EST) White Blood 0.5 (LL)Comment: No 4 - 10 10[facility] since last [facility] result called Pathology Red Blood Cell 2.78 (L) 4.1 - 5.3 10*6/uL [facility] Univ Clin Pathology Hemoglobin 8.3 (L) 11.5 - 15.5 g/dL [facility] Clin Pathology Hematocrit 23.8 (L) 36 - 45 % [facility] Univ Clin Pathology Mean Cell 85.3 80 - 96 fL [facility] Volume [facility] Pathology Mean Cell 29.8 27 - 33 pg [facility] Hemoglobin [facility] Pathology Mean Cell Hgb 34.9 32.0 - 36.0 g/dL [facility] Conc [facility] Clin Pathology Red Cell Dist 14.7 (H) 11.5 - 14.5 % [facility] Width [facility] Clin Pathology Platelet Count 10 (LL)Comment: No significant 150 - 400 10*3/ uL [facility] change since last result [facility] called Pathology Specimen EDTA Whole Blood Performing Organization Address [facility] Ph one Number [facility] [address] [place], [place] [address] [facility] [address], [place] [address] Clin Pathology * POCT glucose, docked (03/18/2020 7:37 AM EST) POC Glucose 85 70 - 140 mg/dL [facility] POC Specimen Whole Blood Performing Organization Address [facility] Ph one Number POINT OF CARE TEST [address] [place] [address] [facility] POC [address] [place] [address] * Basic Metabolic Panel (03/18/2020 1:12 AM EST) Bicarbonate 22 22 - 29 mmol/L [facility] Clin Pathology Chloride 108 (H) 98 - 107 mmol/L [facility] Pathology Creatinine 1.45 (H) 0.50 - 0.90 mg/dL [facility] Clin Pathology Glucose 117 70 - 140 mg/dL [facility] Clin Pathology Potassium 3.6 3.4 - 5.1 mmol/L [facility] Clin Pathology Sodium 138 136 - 145 mmol/L [facility] Pathology Blood Urea 26 (H) 8 - 23 mg/dL [facility] Clin Pathology Anion Gap 9 8 - 15 mmol/L [facility] Clin Pathology Osmolality, Nikolay 292 275 - 300 mosm/kg [facility] Pathology BUN/Cre Ratio 18 [facility] Pathology Calcium 8.0 (L) 8.8 - 10.2 mg/dL [facility] Clin Pathology GFR Non 37 (L) >60 mL/min/1.73m2 [facility] 2008 [facility] CDK-EPI Pathology GFR 43 (L) >60 mL/min/1.73m2 [facility] 2008 [facility] CKD-EPI Pathology Specimen Plasma Performing Organization Address City/[facility] Ph one Number [facility] [address] [place], [place] [address] [facility] [address] [place], [place] [address] Clin Pathology * CBC and Differential (03/18/2020 1:12 AM EST) White Blood 0.5 (LL)Comment: No 4 - 10 10*3/uL [facility] change since last [facility] result called Pathology Red Blood Cell 2.27 (L) 4.1 - 5.3 10*6/uL [facility] Clin Pathology Hemoglobin 6.7 (L) 11.5 - 15.5 g/dL [facility] Clin Pathology Hematocrit 19.3 (LL)Comment: No 36 - 45 % [facility] change since last [facility] result called Pathology Mean Cell 85.0 80 - 96 fL [facility] Volume [facility] Univ Clin Pathology Mean Cell 29.5 27 - 33 pg [facility] Hemoglobin [facility] Clin Pathology Mean Cell Hgb 34.7 32.0 - 36.0 g/dL [facility] Clin Pathology Red Cell Dist 14.7 (H) 11.5 - 14.5 % [facility] Width [facility] Clin Pathology Platelet Count 12 (LL)Comment: No significant 150 - 400 10*3/ uL [facility] change since last result [facility] called Pathology Differential Manual Diff [facility] Type [facility] Univ Clin Pathology Neutrophil 2 % [facility] Clin Pathology Lymphocyte 87 % [facility] Clin Pathology Monocyte 0 % [facility] Clin Pathology Eosinophil 1 % [facility] Clin Pathology Abs Neutrophil 0.01 (L) 1.8 - 7.0 10*3/uL [facility] Clin Pathology Abs Lymphocyte 0.44 (L) 1.2 - 4.0 10*3/uL [facility] Clin Pathology Abs Monocyte 0.00 0 - 0.8 10*3/uL [facility] Clin Pathology Abs Eosinophil 0.00 0 - 0.5 10*3/uL [facility] Clin Pathology Nucleated Red 0 0 - 0 /100{WBCs} [facility] Blood Cells [facility] Univ Clin Pathology Atypical 4 % [facility] Lymphocytes [facility] Clin Pathology Metamyelocyte 0 % [facility] Clin Pathology Blast 6 % [facility] Clin Pathology Abs Atyp Lymph 0.02 (H) 0 10*3/uL [facility] Clin Pathology Abs 0.00 0 - 0 10*3/uL [facility] Metamyelocyte [facility] Clin Pathology Abs Blast 0.03 (H) 0 - 0 10*3/uL [facility] Clin Pathology Anisocytosis 1+ [facility] Clin Pathology Poikilocytosis 1+ [facility] Clin Pathology Specimen EDTA Whole Blood Performing Organization Address City/State/[place] Ph one Number [facility] [address], [place] [address] PATHOLOGY [facility] Univ [address] [place], [place] [address] Clin Pathology * Phosphorus Level (03/18/2020 1:12 AM EST) Phosphorus 3.2 2.5 - 4.5 mg/dL [facility] Clin Pathology Specimen Plasma Performing Organization Address [facility] one Number [facility] [address] [place], [place] [address] [facility] [address] [place], [place] [address] Clin Pathology * Magnesium Level (03/18/2020 1:12 AM EST) Magnesium 1.8 1.6 - 2.4 mg/dL [facility] Clin Pathology Specimen Plasma Performing Organization Address [facility] one Number [facility] [address] [place], [place] [address] [facility] [address] [place], [place] [address] Clin Pathology * POCT glucose, docked (03/17/2020 9:14 PM EST) POC Glucose 104 70 - 140 mg/dL [facility] POC Specimen Whole Blood Performing Organization Address [facility] POINT OF CARE TEST [address] [place] [address] [facility] POC [address] [place] [address] * POCT glucose, docked (03/17/2020 4:43 PM EST) POC Glucose 93 70 - 140 mg/dL [facility] POC Specimen Whole Blood Performing Organization Address [facility] POINT OF CARE TEST [address] [place] [address] [facility] POC [address] [place] [address] * Platelet count (03/17/2020 4:03 PM EST) Platelet Count 16 (LL)Comment: No significant 150 - 400 10*3/ uL [facility] change since last result [facility] Clin called Pathology Specimen EDTA Whole Blood Performing Organization Address [facility] one Number [facility] [address] [place], [place] [address] [facility] [address] [place], [place] [address] Clin Pathology * POCT glucose, docked (03/17/2020 11:33 AM EST) POC Glucose 110 70 - 140 mg/dL [facility] POC Specimen Whole Blood Performing Organization Address [facility]/Zipcode Ph one Number POINT OF CARE TEST [address] [place] [address] [facility] POC [address] [place] [address] * POCT glucose, docked (03/17/2020 7:36 AM EST) POC Glucose 125 70 - 140 mg/dL [facility] POC Specimen Whole Blood Performing Organization Address [facility] Ph one Number POINT OF CARE TEST [address] 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 COMPARISON: CR XR CHEST FRONTAL ONLY [id number] PORTABLE 03/13/2020 7:59 PM FINDINGS: Tubes, catheters and devices: An infusi on port is present. A pacemaker device is present, and its leads are in approp riate position. Lungs: Minimal airspace disease at the right lung base. Pleural spaces: Unremarkable. No pleura l effusion. No pneumothorax. Heart/Mediastinum: The heart is enlarge d. Bones/joints: Unremarkable. IMPRESSION: 1. Minimal airspace disease at the righ t lung base. 2. Followup radiographs recommended aft er appropriate therapy. 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 COMPARISON: CR XR CHEST FRONTAL ONLY [id number] PORTABLE 03/13/2020 7:59 PM FINDINGS: Tubes, catheters and devices: An infusion port is present. A pacemaker device is present, and its leads are in appropriate position. Lungs: Minimal airspace disease at the right lung base. Pleural spaces: Unremarkable. No pleural effusion. No pneumothorax. Heart/Mediastinum: The heart is enlarged. Bones/joints: Unremarkable. IMPRESSION: 1. Minimal airspace disease at the right lung base. 2. Followup radiographs recommended afte r appropriate therapy. THIS DOCUMENT HAS BEEN ELECTRONICALLY SIGNED BY DIONNE ANGEL MD Performing Organization Address [facility] Ph one Number [facility] [address] [place] [address] * Urinalysis with microscopic (03/17/2020 1:08 AM EST) Color Yellow [facility] Univ Clin Pathology Clarity Clear [facility] Clin Pathology Specific 1.012 1.003 - 1.030 [facility] [place] [facility] Clin Pathology PH Urine 5.0 5.0 - 8.0 [facility] Clin Pathology Total Protein Negative Negative mg/dL [facility] Med Univ Clin Pathology Glucose UA Negative Negative mg/dL [facility] Clin Pathology Ketone Urine Negative Negative mg/dL [facility] Clin Pathology Bilirubin Negative Negative [facility] Clin Pathology Hemoglobin, 1+ (A) Negative [facility] Urine [facility] Clin Pathology Leukocyte Negative Negative Raeann/uL [facility] Esterase [facility] Clin Pathology Nitrite Negative Negative [facility] Univ Clin Pathology WBC 0 0 - 5 /HPF [facility] Clin Pathology RBC <1 0 - 3 /HPF [facility] Clin Pathology Bacteria, UA 1+ (A) None /HPF [facility] Clin Pathology Squam Epithel, 8 (A) None /HPF [facility] Univ Clin Pathology Mucus, UA Trace (A) None /LPF [facility] Clin Pathology Specimen Urine Performing Organization Address [facility] Ph one Number [facility] [address] [place], [place] [address] [facility] [address] [place], [place] [address] Clin Pathology * Basic Metabolic Panel (03/17/2020 1:08 AM EST) Bicarbonate 22 22 - 29 mmol/L [facility] Clin Pathology Chloride 105 98 - 107 mmol/L [facility] Clin Pathology Creatinine 1.44 (H) 0.50 - 0.90 mg/dL [facility] Clin Pathology Glucose 105 70 - 140 mg/dL [facility] Clin Pathology Potassium 3.8 3.4 - 5.1 mmol/L [facility] Clin Pathology Sodium 136 136 - 145 mmol/L [facility] Clin Pathology Blood Urea 28 (H) 8 - 23 mg/dL [facility] Clin Pathology Anion Gap 9 8 - 15 mmol/L [facility] Clin Pathology Osmolality, Nikolay 288 275 - 300 mosm/kg [facility] Clin Pathology BUN/Cre Ratio 19 [facility] Clin Pathology Calcium 8.4 (L) 8.8 - 10.2 mg/dL [facility] Clin Pathology GFR Non 37 (L) >60 mL/min/1.73m2 [facility] 2008 [facility] Clin CDK-EPI Pathology GFR 43 (L) >60 mL/min/1.73m2 [facility] 2008 [facility] CKD-EPI Pathology Specimen Plasma Performing Organization Address City/State/[facility] Ph one Number [facility] [address] [place], [place] [address] [facility] [address] [place], [place] [address] Clin Pathology * CBC and Differential (03/17/2020 1:08 AM EST) White Blood 0.6 (LL)Comment: Called to and 4 - 10 10*3/uL [facility] Cell read back by katrina cabrera rn [facility] Uni v Clin [id number] [id number] at 0141 by 1522 Pathology Red Blood Cell 2.28 (L) 4.1 - 5.3 10*6/uL [facility] Clin Pathology Hemoglobin 6.8 (L) 11.5 - 15.5 g/dL [facility] Clin Pathology Hematocrit 19.6 (LL)Comment: Called to 36 - 45 % [facility] and read back by katrina cabrera [facility] Clin rn [id number] [id number] at 0141 by 1522 Pathology Mean Cell 85.9 80 - 96 fL [facility] Volume [facility] Univ Clin Pathology Mean Cell 29.9 27 - 33 pg [facility] Hemoglobin [facility] Clin Pathology Mean Cell Hgb 34.8 32.0 - 36.0 g/dL [facility] Univ Clin Pathology Red Cell Dist 14.8 (H) 11.5 - 14.5 % [facility] Width [facility] Clin Pathology Platelet Count 10 (LL)Comment: Called to and 150 - 400 10*3/u L [facility] read back by katrina cabrera rn [facility] [id number] [id number] at 0141 by 1522 Pathology Differential Manual Diff [facility] Type [facility] Pathology Neutrophil 2 % [facility] Clin Pathology Lymphocyte 84 % [facility] Clin Pathology Monocyte 1 % [facility] Clin Pathology Abs Neutrophil 0.01 (L) 1.8 - 7.0 10*3/uL [facility] Clin Pathology Abs Lymphocyte 0.51 (L) 1.2 - 4.0 10*3/uL [facility] Clin Pathology Abs Monocyte 0.01 0 - 0.8 10*3/uL [facility] Clin Pathology Atypical 1 % [facility] Lymphocytes [facility] Pathology Blast 11 % [facility] Clin Pathology Abs Atyp Lymph 0.01 (H) 0 10*3/uL [facility] Clin Pathology Abs Blast 0.06 (H) 0 - 0 10*3/uL [facility] Univ Clin Pathology Anisocytosis 1+ [facility] Clin Pathology Poikilocytosis 1+ [facility] Pathology Unclassed Diff 1 (H) 0 % [facility] Cell for Med Univ Clin Pathologist Pathology Review Absolute 0.01 (H) 0 10*3/uL [facility] Unclassed Diff [facility] Clin Cell for Pathology Pathologist Review Specimen EDTA Whole Blood Performing Organization Address [facility] Ph one Number [facility] [address] [place], [place] [address] 132 10 Clin Pathology * Phosphorus Level (03/17/2020 1:08 AM EST) Phosphorus 2.9 2.5 - 4.5 mg/dL [facility] Pathology Specimen Plasma Performing Organization Address [facility] one Number [facility] [address] [place], [place] [address] 132 10 Clin Pathology * Magnesium Level (03/17/2020 1:08 AM EST) Magnesium 1.9 1.6 - 2.4 mg/dL [facility] Clin Pathology Specimen Plasma Performing Organization Address [facility] one Number [facility] [address] [place], [place] [address] [facility] [address] [place], [place] [address] 10 Clin Pathology * POCT glucose, docked (03/16/2020 9:56 PM EST) POC Glucose 123 70 - 140 mg/dL [facility] POC Specimen Whole Blood Performing Organization Address [facility] one Number POINT OF CARE TEST [address] [place] [address] [facility] POC [address] [place] [address] * POCT glucose, docked (03/16/2020 4:28 PM EST) POC Glucose 88 70 - 140 mg/dL [facility] POC Specimen Whole Blood Performing Organization Address [facility] one [facility] POINT OF CARE TEST [address] [place], [place] [id number] [place] [address] POC [address] [place] [address] * POCT glucose, docked (03/16/2020 11:29 AM EST) POC Glucose 124 70 - 140 mg/dL [facility] POC Specimen Whole Blood Performing Organization Address [facility] one [facility] POINT OF CARE TEST [address] [place], [place] [id number] [place] [address] POC [address] [place] [address] * POCT glucose, docked (03/16/2020 8:01 AM EST) POC Glucose 104 70 - 140 mg/dL [facility] POC Specimen Whole Blood Performing Organization Address [facility] one [facility] POINT OF CARE TEST [address] [place] [address] [facility] POC [address] [place] [address] * Basic Metabolic Panel (03/16/2020 12:25 AM EST) Bicarbonate 23 22 - 29 mmol/L [facility] Pathology Chloride 108 (H) 98 - 107 mmol/L [facility] Pathology Creatinine 1.52 (H) 0.50 - 0.90 mg/dL [facility] Pathology Glucose 151 (H) 70 - 140 mg/dL [facility] Pathology Potassium 4.1 3.4 - 5.1 mmol/L [facility] Pathology Sodium 138 136 - 145 mmol/L [facility] Pathology Blood Urea 33 (H) 8 - 23 mg/dL [facility] Clin Pathology Anion Gap 8 8 - 15 mmol/L [facility] Clin Pathology Osmolality, Nikolay 297 275 - 300 mosm/kg [facility] Clin Pathology BUN/Cre Ratio 22 [facility] Clin Pathology Calcium 8.5 (L) 8.8 - 10.2 mg/dL [facility] Clin Pathology GFR Non 35 (L) >60 mL/min/1.73m2 [address] Clin CDK-EPI Pathology GFR 41 (L) >60 mL/min/1.73m2 [facility] 2008 [facility] CKD-EPI Pathology Specimen Plasma Performing Organization Address City/State/[facility] Ph one Number [facility] [address] [place], [place] [address] [facility] [address] [place], [place] [address] 10 Clin Pathology * CBC and Differential (03/16/2020 12:25 AM EST) White Blood 0.5 (LL)Comment: Called to and 4 - 10 10*3/uL [facility] Cell read back by kecia soto rn [facility] Uni v Clin on 10h at 0120 by 2050 Pathology Red Blood Cell 2.44 (L) 4.1 - 5.3 10*6/uL [facility] Pathology Hemoglobin 7.3 (L) 11.5 - 15.5 g/dL [facility] Pathology Hematocrit 20.8 (LL)Comment: Called to 36 - 45 % [facility] and read back by kecia soto [facility] Clin rn on 10h at 0120 by 2050 Pathology Mean Cell 84.9 80 - 96 fL [facility] Volume [facility] Clin Pathology Mean Cell 30.0 27 - 33 pg [facility] Hemoglobin [facility] Clin Pathology Mean Cell Hgb 35.4 32.0 - 36.0 g/dL [facility] Clin Pathology Red Cell Dist 14.8 (H) 11.5 - 14.5 % [facility] Width [facility] Clin Pathology Platelet Count 18 (LL)Comment: Called to and 150 - 400 10*3/u L [facility] read back by kecia soto rn Med Univ Clin on 10h at 0120 by 2050 Pathology Differential Manual Diff [facility] Type [facility] Pathology Neutrophil 1 % [facility] Clin Pathology Lymphocyte 86 % [facility] Pathology Eosinophil 1 % [facility] Pathology Abs Neutrophil 0.01 (L) 1.8 - 7.0 10*3/uL [facility] Pathology Abs Lymphocyte 0.43 (L) 1.2 - 4.0 10*3/uL [facility] Pathology Abs Eosinophil 0.01 0 - 0.5 10*3/uL [facility] Pathology Nucleated Red 1 (H) 0 - 0 /100{WBCs} [facility] Blood Cells [facility] Clin Pathology Atypical 2 % [facility] Lymphocytes [facility] Clin Pathology Blast 10 % [facility] Pathology Abs Atyp Lymph 0.01 (H) 0 10*3/uL [facility] Pathology Abs Blast 0.05 (H) 0 - 0 10*3/uL [facility] Clin Pathology Anisocytosis 1+ [facility] Clin Pathology Microcytosis 1+ [facility] Pathology Specimen EDTA Whole Blood Performing Organization Address [facility] Ph one Number [facility] [address] [place], [place] [address] 132 10 Clin Pathology * Phosphorus Level (03/16/2020 12:25 AM EST) Phosphorus 3.2 2.5 - 4.5 mg/dL [facility] Clin Pathology Specimen Plasma Performing Organization Address [facility] Ph one Number [facility] [address] [place], [place] [address] 132 10 Clin Pathology * Magnesium Level (03/16/2020 12:25 AM EST) Magnesium 2.0 1.6 - 2.4 mg/dL [facility] Clin Pathology Specimen Plasma Performing Organization Address [facility] Ph one Number [facility] [address] [place], [place] [address] [facility] [address] [place], [place] [address] 10 Clin Pathology * POCT glucose, docked (03/15/2020 10:02 PM EST) POC Glucose 150 (H) 70 - 140 mg/dL [facility] POC Specimen Whole Blood Performing Organization Address [facility] one Number POINT OF CARE TEST [address] [place] [address] [facility] POC [address] [place] [address] * POCT glucose, docked (03/15/2020 4:28 PM EST) Pathologist [facility] POC Glucose 181 (H) 70 - 140 mg/dL [facility] POC Specimen Whole Blood Performing Organization Address [facility] one [facility] POINT OF CARE TEST [address] [place] [address] [facility] POC [address] [place] [address] * CBC and Differential (03/15/2020 11:48 AM EST) Pathologist [facility] White Blood 0.5 (LL)Comment: Called to and 4 - 10 10*3/uL [facility] Cell read back by FELIZ PONCE RN [facility] iv Clin AT 10H AT 1227 BY 1590 Pathology Red Blood Cell 2.76 (L) 4.1 - 5.3 10*6/uL [facility] Pathology Hemoglobin 8.3 (L) 11.5 - 15.5 g/dL [facility] Clin Pathology Hematocrit 23.6 (L) 36 - 45 % [facility] Clin Pathology Mean Cell 85.7 80 - 96 fL [facility] Volume [facility] Clin Pathology Mean Cell 30.1 27 - 33 pg [facility] Hemoglobin [facility] Clin Pathology Mean Cell Hgb 35.1 32.0 - 36.0 g/dL [facility] Clin Pathology Red Cell Dist 14.8 (H) 11.5 - 14.5 % [facility] Width [facility] Clin Pathology Platelet Count 29 (LL)Comment: Called to and 150 - 400 10*3/u L [facility] read back by FELIZ PONCE RN Med Univ Clin AT 10H AT 1227 BY 1590 Pathology Differential Manual Diff [facility] Clin Pathology Neutrophil 5 % [facility] Clin Pathology Lymphocyte 77 % [facility] Pathology Eosinophil 3 % [facility] Pathology Abs Neutrophil 0.02 (L) 1.8 - 7.0 10*3/uL [facility] Pathology Abs Lymphocyte 0.39 (L) 1.2 - 4.0 10*3/uL [facility] Pathology Abs Eosinophil 0.01 0 - 0.5 10*3/uL [facility] Clin Pathology Blast 15 % [facility] Clin Pathology Abs Blast 0.07 (H) 0 - 0 10*3/uL [facility] Clin Pathology Specimen EDTA Whole Blood Performing Organization Address [facility] one Number [facility] [address] [place], [place] [address] [facility] [address] [place], [place] [address] 10 Clin Pathology * POCT glucose, docked (03/15/2020 11:42 AM EST) POC Glucose 217 (H) 70 - 140 mg/dL [facility] POC Specimen Whole Blood Performing Organization Address [facility] Number POINT OF CARE TEST [address] [place], [place] [id number] [place] [address] POC [address] [place] [address] * POCT glucose, docked (03/15/2020 7:53 AM EST) POC Glucose 206 (H) 70 - 140 mg/dL [facility] POC Specimen Whole Blood Performing Organization Address [facility] POINT OF CARE TEST [address] [place], [place] [id number] [place] [address] POC [address] [place] [address] * Basic Metabolic Panel (03/15/2020 12:16 AM EST) Bicarbonate 23 22 - 29 mmol/L [facility] Clin Pathology Chloride 106 98 - 107 mmol/L [facility] Clin Pathology Creatinine 1.55 (H) 0.50 - 0.90 mg/dL [facility] Clin Pathology Glucose 249 (H) 70 - 140 mg/dL [facility] Clin Pathology Potassium 4.0 3.4 - 5.1 mmol/L [facility] Clin Pathology Sodium 138 136 - 145 mmol/L [facility] Clin Pathology Blood Urea 41 (H) 8 - 23 mg/dL [facility] Nitrogen [facility] Clin Pathology Anion Gap 9 8 - 15 mmol/L [facility] Clin Pathology Osmolality, Nikolay 304 (H) 275 - 300 mosm/kg [facility] Clin Pathology BUN/Cre Ratio 26 [facility] Clin Pathology Calcium 8.1 (L) 8.8 - 10.2 mg/dL [facility] Clin Pathology GFR Non 34 (L) >60 mL/min/1.73m2 [facility] 2008 Med Univ Clin CDK-EPI Pathology GFR 40 (L) >60 mL/min/1.73m2 [facility] 2008 [facility] Clin CKD-EPI Pathology Specimen Plasma Performing Organization Address City/State/[facility] Ph one Number [facility] [address] [place], [place] [address] [facility] [address] [place], [place] [address] Clin Pathology * CBC and Differential (03/15/2020 12:16 AM EST) White Blood 0.4 (LL)Comment: No 4 - 10 10*3/uL [facility] te Cell significant change since last Med Uni v Clin result called Pathology Red Blood Cell 2.84 (L) 4.1 - 5.3 10*6/uL [facility] Clin Pathology Hemoglobin 8.5 (L) 11.5 - 15.5 g/dL [facility] Clin Pathology Hematocrit 24.3 (L) 36 - 45 % [facility] Clin Pathology Mean Cell 85.5 80 - 96 fL [facility] Volume Med Univ Clin Pathology Mean Cell 30.1 27 - 33 pg [facility] Hemoglobin Med [facility] Clin Pathology Mean Cell Hgb 35.2 32.0 - 36.0 g/dL [facility] Clin Pathology Red Cell Dist 14.7 (H) 11.5 - 14.5 % [facility] Width [facility] Clin Pathology Platelet Count 34 (LL)Comment: No significant 150 - 400 10*3/ uL [facility] change since last result Med Univ Clin called Pathology Differential Manual Diff [facility] Type [facility] Clin Pathology Neutrophil 3 % [facility] Pathology Lymphocyte 75 % [facility] Clin Pathology Monocyte 3 % [facility] Pathology Basophil 0 % [facility] Pathology Abs Neutrophil 0.01 (L) 1.8 - 7.0 10*3/uL [facility] Clin Pathology Abs Lymphocyte 0.30 (L) 1.2 - 4.0 10*3/uL [facility] Clin Pathology Abs Monocyte 0.01 0 - 0.8 10*3/uL [facility] Clin Pathology Abs Basophil 0.00 0 - 0.2 10*3/uL [facility] Clin Pathology Nucleated Red 0 0 - 0 /100{WBCs} [facility] Blood Cells [facility] Clin Pathology Atypical 3 % [facility] Lymphocytes [facility] Clin Pathology Myelocyte 1 % [facility] Clin Pathology Metamyelocyte 0 % [facility] Clin Pathology Blast 15 % [facility] Pathology Abs Atyp Lymph 0.01 (H) 0 10*3/uL [facility] Pathology Abs Myelocyte 0.00 0 - 0 10*3/uL [facility] Clin Pathology Abs 0.00 0 - 0 10*3/uL [facility] Metamyelocyte [facility] Clin Pathology Abs Blast 0.06 (H) 0 - 0 10*3/uL [facility] Clin Pathology Anisocytosis 1+ [facility] Clin Pathology Specimen EDTA Whole Blood Performing Organization Address City/[facility] Ph one Number [facility] [address] [place], [place] [address] [address] 10 Clin Pathology * Phosphorus Level (03/15/2020 12:16 AM EST) Phosphorus 3.8 2.5 - 4.5 mg/dL [facility] Clin Pathology Specimen Plasma Performing Organization Address City/[facility] Ph one Number [facility] [address] [place], [place] [address] 132 10 Clin Pathology * Magnesium Level (03/15/2020 12:16 AM EST) Magnesium 2.0 1.6 - 2.4 mg/dL [facility] Clin Pathology Specimen Plasma Performing Organization Address [facility] Ph one Number [facility] [address] [place], [place] [address] [facility] [address] [place], [place] [address] Clin Pathology * POCT glucose, docked (03/14/2020 11:00 PM EST) POC Glucose 231 (H) 70 - 140 mg/dL [facility] POC Specimen Whole Blood Performing Organization Address [facility] Ph one Number POINT OF CARE TEST [address] [place] [address] [facility] POC [address] [place] [address] * POCT glucose, docked (03/14/2020 4:35 PM EST) POC Glucose 111 70 - 140 mg/dL [facility] POC Specimen Whole Blood Performing Organization Address [facility] one [facility] POINT OF CARE TEST [address] [place] [address] [facility] POC [address] [place] [address] * CBC and Differential (03/14/2020 4:03 PM EST) White Blood 0.5 (LL)Comment: No 4 - 10 [facility] change since last [facility] v Clin result called Pathology Red Blood Cell 2.22 (L) 4.1 - 5.3 10*6/uL [facility] Clin Pathology Hemoglobin 6.6 (L) 11.5 - 15.5 g/dL [facility] Clin Pathology Hematocrit 19.3 (LL)Comment: No 36 - 45 % [facility] since last [facility] Clin result called Pathology Mean Cell 86.8 80 - 96 fL [facility] Volume [facility] Clin Pathology Mean Cell 29.9 27 - 33 pg [facility] Hemoglobin Med [facility] Clin Pathology Mean Cell Hgb 34.4 32.0 - 36.0 g/dL [facility] Clin Pathology Red Cell Dist 14.5 11.5 - 14.5 % [facility] Width [facility] Clin Pathology Platelet Count 36 (LL)Comment: No significant 150 - 400 10*3/ uL [facility] change since last result Med [facility] Clin called Pathology Differential Manual Diff [facility] [place] Type Med [facility] Clin Pathology Neutrophil 1 % [facility] Clin Pathology Lymphocyte 85 % [facility] Clin Pathology Abs Neutrophil 0.01 (L) 1.8 - 7.0 10*3/uL [facility] Clin Pathology Abs Lymphocyte 0.43 (L) 1.2 - 4.0 10*3/uL [facility] Clin Pathology Atypical 1 % [facility] Clin Pathology Myelocyte 1 % [facility] Clin Pathology Blast 12 % [facility] Clin Pathology Abs Atyp Lymph 0.01 (H) 0 10*3/uL [facility] Clin Pathology Abs Myelocyte 0.01 (H) 0 - 0 10*3/uL [facility] Clin Pathology Abs Blast 0.06 (H) 0 - 0 10*3/uL [facility] Clin Pathology Specimen EDTA Whole Blood Performing Organization Address [facility] one Number [facility] [address] [place], [place] [address] [facility] [address] [place], [place] [address] Clin Pathology * POCT glucose, docked (03/14/2020 3:04 PM EST) POC Glucose 104 70 - 140 mg/dL [facility] POC Specimen Whole Blood Performing Organization Address [facility] Number POINT OF CARE TEST [address] [place] [address] [facility] POC [address] [place] [address] * POCT glucose, docked (03/14/2020 11:40 AM EST) POC Glucose 95 70 - 140 mg/dL [facility] POC Specimen Whole Blood Performing Organization Address [facility] Number POINT OF CARE TEST [address] [place] [address] [facility] POC [address] [place] [address] * POCT glucose, docked (03/14/2020 7:55 AM EST) POC Glucose 98 70 - 140 mg/dL [facility] POC Specimen Whole Blood Performing Organization Address [facility] Number POINT OF CARE TEST [address] [place] [address] [facility] POC [address] [place] [address] * Prepare platelet HLA matched 1 Unit; 350 (03/14/2020 5:22 AM EST) Site Performed at [place], [place] Med Univ Clin Pathology UNIT NUMBER [id number] [facility] Pathology Blood Component Irr HI(PAS) Plt Pheresis, 1st [facility] Type Container Med Univ Clin Pathology Unit Division 00 [facility] Pathology STATUS OF UNIT ISSUED, FINAL [facility] Clin Pathology UNIT TAG Store at room temperature. Do [facility] COMMENT not refrigerate or place in [facility] Univ Clin cooler. Pathology Patient/Unit blood types differ. Okay to transfuse. HLA Matched Product. A2 A26 B44 B45 TRANSFUSION OK TO TRANSFUSE [facility] Clin Pathology Specimen EDTA Whole Blood Performing Organization Address [facility] one Number [facility] [address] [place], [place] [address] [address] Clin Pathology * Platelet count (03/14/2020 4:58 AM EST) Pathologist [facility] Platelet Count 22 (LL)Comment: No significant 150 - 400 10*3/ uL [facility] change since last result [facility] called Pathology Specimen EDTA Whole Blood Performing Organization Address [facility] Ph one Number [facility] [address] [place], [place] [address] [address] Clin Pathology * Basic Metabolic Panel (03/14/2020 12:29 AM EST) Bicarbonate 22 22 - 29 mmol/L [facility] Clin Pathology Chloride 104 98 - 107 mmol/L [facility] Clin Pathology Creatinine 1.66 (H) 0.50 - 0.90 mg/dL [facility] Clin Pathology Glucose 123 70 - 140 mg/dL [facility] Clin Pathology Potassium 3.3 (L) 3.4 - 5.1 mmol/L [facility] Clin Pathology Sodium 134 (L) 136 - 145 mmol/L [facility] Clin Pathology Blood Urea 44 (H) 8 - 23 mg/dL [facility] Univ Clin Pathology Anion Gap 7 (L) 8 - 15 mmol/L [facility] Clin Pathology Osmolality, Nikolay 290 275 - 300 mosm/kg [facility] Clin Pathology BUN/Cre Ratio 27 [facility] Clin Pathology Calcium 8.1 (L) 8.8 - 10.2 mg/dL [facility] Clin Pathology GFR Non 31 (L) >60 mL/min/1.73m2 [facility] 2008 [facility] Clin CDK-EPI Pathology GFR 36 (L) >60 mL/min/1.73m2 [facility] 2008 [facility] CKD-EPI Pathology Specimen Plasma Performing Organization Address City/State/[facility] Ph one Number [facility] [address] [place], [place] [address] [facility] [address] [place], [place] [address] Clin Pathology * CBC and Differential (03/14/2020 12:29 AM EST) White Blood 0.7 (LL)Comment: Called to and 4 - 10 10*3/uL [facility] Cell read back by Eve Sierra RN [facility] v Clin on 10H at 0105 by 1521 Pathology Red Blood Cell 2.38 (L) 4.1 - 5.3 10*6/uL [facility] Clin Pathology Hemoglobin 7.2 (L) 11.5 - 15.5 g/dL [facility] Clin Pathology Hematocrit 20.2 (LL)Comment: Called to 36 - 45 % [facility] and read back by Eve Sierra [facility] Clin RN on 10H at 0105 by 1521 Pathology Mean Cell 84.7 80 - 96 fL [facility] Volume [facility] Clin Pathology Mean Cell 30.2 27 - 33 pg [facility] Hemoglobin [facility] Clin Pathology Mean Cell Hgb 35.7 32.0 - 36.0 g/dL [facility] Conc [facility] Clin Pathology Red Cell Dist 14.6 (H) 11.5 - 14.5 % [facility] Width [facility] Clin Pathology Platelet Count 11 (LL)Comment: Called to and 150 - 400 10*3/u L [facility] read back by Eve Sierra RN Med Univ Clin on 10H at 0105 by 1521 Pathology Differential Manual Diff [facility] Type [facility] Clin Pathology Neutrophil 1 % [facility] Pathology Lymphocyte 82 % [facility] Pathology Monocyte 0 % [facility] Clin Pathology Eosinophil 1 % [facility] Clin Pathology Abs Neutrophil 0.01 (L) 1.8 - 7.0 10*3/uL [facility] Clin Pathology Abs Lymphocyte 0.57 (L) 1.2 - 4.0 10*3/uL [facility] Clin Pathology Abs Monocyte 0.00 0 - 0.8 10*3/uL [facility] Clin Pathology Abs Eosinophil 0.00 0 - 0.5 10*3/uL [facility] Clin Pathology Nucleated Red 0 0 - 0 /100{WBCs} [facility] Blood Cells [facility] Clin Pathology Atypical 6 % [facility] Lymphocytes [facility] Clin Pathology Blast 10 % [facility] Clin Pathology Abs Atyp Lymph 0.04 (H) 0 10*3/uL [facility] Clin Pathology Abs Blast 0.07 (H) 0 - 0 10*3/uL [facility] Clin Pathology Anisocytosis 1+ [facility] Clin Pathology Poikilocytosis 1+ [facility] Clin Pathology Specimen EDTA Whole Blood Performing Organization Address [facility] Ph one Number [address] 132 10 Clin Pathology * Phosphorus Level (03/14/2020 12:29 AM EST) Phosphorus 2.8 2.5 - 4.5 mg/dL [facility] Clin Pathology Specimen Plasma Performing Organization Address [facility] Ph one Number [facility] CL[facility] [address] [place], [place] [address] 132 10 Clin Pathology * Magnesium Level (03/14/2020 12:29 AM EST) Magnesium 1.7 1.6 - 2.4 mg/dL [facility] Clin Pathology Specimen Plasma Performing Organization Address [facility] Ph one Number [facility] [address] [place], [place] [address] [place] [address] 10 Clin Pathology * POCT glucose, docked (03/13/2020 9:29 PM EST) POC Glucose 155 (H) 70 - 140 mg/dL [facility] POC Specimen Whole Blood Performing Organization Address [facility] Ph one Number POINT OF CARE TEST [address] [place] [address] [facility] POC [address] [place] [address] * Blood culture ; Line (03/13/2020 8:41 PM EST) Special Request PORT [facility] Clin Pathology Culture/Results NO GROWTH [facility] Clin Pathology Specimen Line Performing Organization Address [facility] one Number [facility] [address] [place], [place] [address] [facility] [address] [place], [place] [address] 10 Clin Pathology * Blood culture ; Peripheral (03/13/2020 8:27 PM EST) Special Request R ARM [facility] Clin Pathology Culture/Results NO GROWTH [facility] Clin Pathology Specimen Peripheral Performing Organization Address [facility] one Number [facility] [address] [place], [place] [address] [facility] [address] [place], [place] [address] 10 Clin Pathology * Urinalysis with microscopic (03/13/2020 8:25 PM EST) Color Colorless [facility] Clin Pathology Clarity Clear [facility] Clin Pathology Specific 1.009 1.003 - 1.030 [facility] Clin Pathology PH Urine 5.0 5.0 - 8.0 [facility] Clin Pathology Total Protein Negative Negative mg/dL [facility] Univ Clin Pathology Glucose UA Negative Negative mg/dL [facility] Clin Pathology Ketone Urine Negative Negative mg/dL [facility] Clin Pathology Bilirubin Negative Negative [facility] Clin Pathology Hemoglobin, 1+ (A) Negative [facility] Urine [facility] Clin Pathology Leukocyte Negative Negative Raeann/uL [facility] Esterase [facility] Clin Pathology Nitrite Negative Negative [facility] Clin Pathology WBC <1 0 - 5 /HPF [facility] Clin Pathology RBC <1 0 - 3 /HPF [facility] Clin Pathology Squam Epithel, <1 (A) None /HPF [facility] Clin Pathology Specimen Urine Performing Organization Address City/[facility] Ph one Number [facility] [address] [place], [place] [address] 132 10 Clin Pathology * Blood culture ; Peripheral (03/13/2020 8:25 PM EST) Special Request L ARM [facility] Clin Pathology Culture/Results NO GROWTH 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 COMPARISON: DX XR CHEST FRONTAL ONLY [id number] PORTABLE 03/10/2020 6:45 PM FINDINGS: Tubes, catheters and devices: A right i nfusion port is present. A pacemaker device is present and its leads are in appropriate position. Lungs: The pulmonary vasculature is not engorged. The lungs are normal. Pleural space: There are no pleural eff usions present. Heart/Mediastinum: The heart is not enl arged. Bones/joints: Unremarkable IMPRESSION: No acute abnormality. 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 COMPARISON: DX XR CHEST FRONTAL ONLY [id number] PORTABLE 03/10/2020 6:45 PM FINDINGS: Tubes, catheters and devices: A right infusion port is present. A pacemaker device is present and its leads are in appropriate position. Lungs: The pulmonary vasculature is not engorged. The lungs are normal. Pleural space: There are no pleural effusions present. Heart/Mediastinum: The heart is not enlarged. Bones/joints: Unremarkable IMPRESSION: No acute abnormality. THIS DOCUMENT HAS BEEN ELECTRONICALLY SIGNED BY ELEAZAR DRUMMOND MD Performing Organization Address [facility] one Number [facility] [address] [place] [address] * POCT glucose, docked (03/13/2020 4:34 PM EST) Pathologist [facility] POC Glucose 130 70 - 140 mg/dL [facility] POC Specimen Whole Blood Performing Organization Address [facility] one Number POINT OF CARE TEST [address] [place], [place] [id number] [place] [address] POC [address] [place] [address] * Prepare platelet HLA matched 1 Unit; 300 (03/13/2020 2:24 PM EST) Pathologist [facility] Site Performed at [facility] Clin Pathology Called to FELIZ ON 10H AT 0653 [facility] Clin Pathology UNIT NUMBER [id number] [facility] Pathology Blood Component Irr HI(PAS) Plt Pheresis, 2nd [facility] Type Container [facility] Pathology Unit Division 00 [facility] Clin Pathology STATUS OF UNIT ISSUED, FINAL [facility] Pathology UNIT TAG Patient/Unit blood types [facility] COMMENT differ. Med Univ Clin Okay to transfuse. Pathology Store at room temperature. Do not refrigerate or place in cooler. HLA Matched Product. TRANSFUSION OK TO TRANSFUSE [facility] Pathology Specimen EDTA Whole Blood Performing Organization Address [facility] one Number [facility] [address] [place], [place] [address] [facility] [address] [place], [place] [address] Clin Pathology * LAB RESULTS (OUTSIDE/HISTORICAL) (03/13/2020 1:03 PM EST) Narrative Performed At This result has an attachment that is n ot available. * POCT glucose, docked (03/13/2020 11:38 AM EST) [facility] POC Glucose 141 (H) 70 - 140 mg/dL [facility] POC Specimen Whole Blood Performing Organization Address City/State/Zipcode Ph one Number POINT OF CARE TEST [address] [place], [place] [id number] [place] [address] POC [address] [place] [address] * CBC and Differential (03/13/2020 10:19 AM EST) [facility] White Blood 0.6 (LL)Comment: Called to and 4 - 10 10*3/uL [facility] Cell read back by KECIA SPENCER RN [facility] [phone] [id number] Pathology Red Blood Cell 2.71 (L) 4.1 - 5.3 10*6/uL [facility] Clin Pathology Hemoglobin 8.2 (L) 11.5 - 15.5 g/dL [facility] Clin Pathology Hematocrit 23.2 (L) 36 - 45 % [facility] Clin Pathology Mean Cell 85.6 80 - 96 fL [facility] Volume [facility] Clin Pathology Mean Cell 30.3 27 - 33 pg [facility] Hemoglobin [facility] Clin Pathology Mean Cell Hgb 35.3 32.0 - 36.0 g/dL [facility] Clin Pathology Red Cell Dist 14.7 (H) 11.5 - 14.5 % [facility] Width [facility] Clin Pathology Platelet Count 16 (LL)Comment: Called to and 150 - 400 10*3/u L [facility] read back by KECIA SPENCER RN [facility] [phone] [phone] Pathology Differential Manual Diff [facility] Type [facility] Clin Pathology Neutrophil 1 % [facility] Clin Pathology Lymphocyte 79 % [facility] Clin Pathology Monocyte 1 % [facility] Clin Pathology Eosinophil 1 % [facility] Univ Clin Pathology Basophil 1 % [facility] Clin Pathology Abs Neutrophil 0.00 (L) 1.8 - 7.0 10*3/uL [facility] Univ Clin Pathology Abs Lymphocyte 0.46 (L) 1.2 - 4.0 10*3/uL [facility] Univ Clin Pathology Abs Monocyte 0.01 0 - 0.8 10*3/uL [facility] Clin Pathology Abs Eosinophil 0.01 0 - 0.5 10*3/uL [facility] Clin Pathology Abs Basophil 0.00 0 - 0.2 10*3/uL [facility] Clin Pathology Nucleated Red 0 0 - 0 /100{WBCs} [facility] Blood Cells [facility] Clin Pathology Atypical 5 % [facility] Lymphocytes [facility] Clin Pathology Myelocyte 1 % [facility] Pathology Metamyelocyte 0 % [facility] Pathology Blast 11 % [facility] Pathology ABNORMAL 0 % [facility] IMMATURE LYMPH [facility] Clin Pathology Abs Atyp Lymph 0.03 (H) 0 10*3/uL [facility] Clin Pathology Abs Myelocyte 0.00 0 - 0 10*3/uL [facility] Clin Pathology Abs 0.00 0 - 0 10*3/uL [facility] Metamyelocyte [facility] Clin Pathology Abs Blast 0.07 (H) 0 - 0 10*3/uL [facility] Clin Pathology ABS ABNORMAL 0.00 0 - 0 10*3/uL [facility] IMM LYMPH [facility] Clin Pathology Poikilocytosis 1+ [facility] Clin Pathology ROULEAU 1+ [facility] Clin Pathology DWARF 3 (H) 0 - 0 % [facility] MEGAKARYOCYTE [facility] Clin Pathology Specimen EDTA Whole Blood Performing Organization Address [facility] Ph one Number [facility] [address] [place], [place] [address] [facility] [address] [place], [place] [address] Clin Pathology * POCT glucose, docked (03/13/2020 7:41 AM EST) POC Glucose 113 70 - 140 mg/dL [facility] POC Specimen Whole Blood Performing Organization Address City/[facility] Ph one Number POINT OF CARE TEST [address] [place] [address] [facility] POC [address] [place] [address] * Basic Metabolic Panel (03/13/2020 1:35 AM EST) Bicarbonate 19 (L) 22 - 29 mmol/L [facility] Clin Pathology Chloride 109 (H) 98 - 107 mmol/L [facility] Pathology Creatinine 1.78 (H) 0.50 - 0.90 mg/dL [facility] Pathology Glucose 134 70 - 140 mg/dL [facility] Clin Pathology Potassium 3.6 3.4 - 5.1 mmol/L [facility] Clin Pathology Sodium 136 136 - 145 mmol/L [facility] Clin Pathology Blood Urea 42 (H) 8 - 23 mg/dL [facility] Clin Pathology Anion Gap 8 8 - 15 mmol/L [facility] Clin Pathology Osmolality, Nikolay 294 275 - 300 mosm/kg [facility] Clin Pathology BUN/Cre Ratio 24 [facility] Clin Pathology Calcium 8.0 (L) 8.8 - 10.2 mg/dL [facility] Clin Pathology GFR Non 29 (L) >60 mL/min/1.73m2 [facility] 2008 [facility] CDK-EPI Pathology GFR 33 (L) >60 mL/min/1.73m2 [facility] 2008 [facility] CKD-EPI Pathology Specimen Plasma Performing Organization Address [facility] Ph one Number [address] 132 10 Clin Pathology * Phosphorus Level (03/13/2020 1:35 AM EST) Phosphorus 3.5 2.5 - 4.5 mg/dL [facility] Clin Pathology Specimen Plasma Performing Organization Address [facility] Ph one Number [address] 132 10 Clin Pathology * Magnesium Level (03/13/2020 1:35 AM EST) Magnesium 1.8 1.6 - 2.4 mg/dL [facility] Clin Pathology Specimen Plasma Performing Organization Address [facility] Ph one Number [address] 132 10 Clin Pathology * Prepare platelet pheresis 1 Unit (03/13/2020 12:04 AM EST) Site Performed at [facility] [place], [place] Med Univ Clin Pathology UNIT NUMBER [id number] [facility] Pathology Blood Component Irr HI(PAS) Plt Pheresis, 2nd [facility] Type Container [facility] Pathology Unit Division 00 [facility] Univ Clin Pathology STATUS OF UNIT REL FROM ALLOC [facility] Clin Pathology UNIT TAG Store at room temperature. Do [facility] COMMENT not refrigerate or place in Med Univ Clin cooler. Pathology Patient/Unit blood types differ. Okay to transfuse. TRANSFUSION OK TO TRANSFUSE [facility] Univ Clin Pathology Specimen EDTA Whole Blood Performing Organization Address City/[facility] Ph one Number [facility] [address] [place], [place] [address] [facility] [address] [place], [place] [address] Clin Pathology * CBC and Differential (03/12/2020 10:07 PM EST) White Blood 0.5 (LL)Comment: No 4 - 10 [facility] since last [facility] Clin result called Pathology Red Blood Cell 2.20 (L) 4.1 - 5.3 10*6/uL [facility] Univ Clin Pathology Hemoglobin 6.8 (L) 11.5 - 15.5 g/dL [facility] Univ Clin Pathology Hematocrit 19.1 (LL)Comment: No 36 - 45 % [facility] since last [facility] result called Pathology Mean Cell 86.6 80 - 96 fL [facility] Volume [facility] Pathology Mean Cell 30.8 27 - 33 pg [facility] Hemoglobin [facility] Pathology Mean Cell Hgb 35.6 32.0 - 36.0 g/dL [facility] Conc [facility] Pathology Red Cell Dist 14.8 (H) 11.5 - 14.5 % [facility] Width [facility] Pathology Platelet Count 26 (LL)Comment: No significant 150 - 400 10*3/ uL [facility] change since last result [facility] called Pathology Differential Manual Diff [facility] Type [facility] Pathology Lymphocyte 85 % [facility] Clin Pathology Monocyte 1 % [facility] Univ Clin Pathology Abs Lymphocyte 0.42 (L) 1.2 - 4.0 10*3/uL [facility] Clin Pathology Abs Monocyte 0.00 0 - 0.8 10*3/uL [facility] Clin Pathology Atypical 3 % [facility] Lymphocytes [facility] Clin Pathology Myelocyte 1 % [facility] Clin Pathology Blast 10 % [facility] Pathology Abs Atyp Lymph 0.01 (H) 0 10*3/uL [facility] Pathology Abs Myelocyte 0.00 0 - 0 10*3/uL [facility] Pathology Abs Blast 0.05 (H) 0 - 0 10*3/uL [facility] Clin Pathology Anisocytosis 1+ [facility] Clin Pathology Specimen EDTA Whole Blood Performing Organization Address [facility] one Number [facility] [address] [place], [place] [address] [facility] [address] [place], [place] [address] Clin Pathology * POCT glucose, docked (03/12/2020 9:17 PM EST) POC Glucose 184 (H) 70 - 140 mg/dL [facility] POC Specimen Whole Blood Performing Organization Address [facility] one Number POINT OF CARE TEST [address] [place], [place] [id number] [place] [address] POC [address] [place] [address] * POCT glucose, docked (03/12/2020 4:42 PM EST) Pathologist [facility] POC Glucose 166 (H) 70 - 140 mg/dL [facility] POC Specimen Whole Blood Performing Organization Address [facility] Number POINT OF CARE TEST [address] [place] [address] [facility] POC [address] [place] [address] * Prepare platelet pheresis 1 Unit (03/12/2020 3:56 PM EST) Pathologist [facility] Site Performed at [facility] Clin Pathology UNIT NUMBER [id number] [facility] Pathology Blood Component Irr HI(PAS) Plt Pheresis, 1st [facility] Type Container [facility] Clin Pathology Unit Division 00 [facility] Clin Pathology STATUS OF UNIT ISSUED, FINAL [facility] Pathology UNIT TAG Patient/Unit blood types [facility] COMMENT differ. [facility] Clin Okay to transfuse. Pathology Store at room temperature. Do not refrigerate or place in cooler. TRANSFUSION OK TO TRANSFUSE [facility] STATUS [facility] Clin Pathology Specimen EDTA Whole Blood Performing Organization Address [facility] one Number [facility] [address] [place], [place] [address] [facility] [address] [place], [place] [address] Clin Pathology * Platelet count (03/12/2020 2:57 PM EST) Platelet Count 18 (LL)Comment: No significant 150 - 400 10*3/ uL [facility] change since last result [facility] called Pathology Specimen EDTA Whole Blood Performing Organization Address [facility] one Number [facility] [address] [place], [place] [address] [facility] [address] [place], [place] [address] Clin Pathology * POCT glucose, docked (03/12/2020 12:21 PM EST) POC Glucose 131 70 - 140 mg/dL [facility] POC Specimen Whole Blood Performing Organization Address [facility] one Number POINT OF CARE TEST [address] [place] [address] [facility] POC [address] [place] [address] * NM GI Blood Loss Imaging (03/12/2020 11:58 AM EST) Specimen Impressions Performed At IMPRESSION: Active GI bleed which may be of small bow el origin, however, [facility] localization is limited on this study. Narrative Performed At [facility] RADIOLOGY HISTORY: 65-year-old woman with history of GI bleed. TECHNIQUE: Immediately following the in travenous injection of 24 mCi of autologous red blood cells, multiple an terior sequential images of the abdomen and pelvis were obtained. COMPARISON is made to a CT abdomen pelvis dated 03/08/2020. FINDINGS: Normal physiologic activity i s seen within blood pool, liver, spleen. Trace active bleeding is noted within t he mid abdomen and left upper quadrant which appears to cross midline. No dist inct activity is seen within the lower GI tract or rectum at the time of the stud y. These findings could be consistent with a small bowel bleed, however, exac t localization is limited. Procedure Note Interface, Received Via [employer] [facility] - 03/12/2020 12:44 PM EST HISTORY: 65-year-old woman with history of GI bleed. TECHNIQUE: Immediately following the intravenous injection of 24 mCi of autologous red blood cells, multiple anterior sequential images of the abdomen and pelvis were obtained. COMPARISON is made to a CT abdomen pelvis dated 03/08/2020. FINDINGS: Normal physiologic activity is seen within blood pool, liver, spleen. Trace active bleeding is noted within the mid abdomen and left upper quadrant which appears to cross midline. No distinct activity is seen within the lower GI tract or rectum at the time of the study. These findings could be consistent with a small bowel bleed, however, exact localization is limited. IMPRESSION: Active GI bleed which may be of small bowel origin, however, localization is limited on this study. Performing Organization Address City/[facility] Ph one Number [facility] RADIOLOGY [address] [place] [address] * HLA Antibody ID Screen (03/12/2020 9:31 AM EST) HLA ANTIBODY ID See Special Report [facility] CLINICAL PATHOLOGY Specimen Serum Performing Organization Address [facility] Ph one Number [facility] CL[facility]ICAL [address] [place], [place] [address] PATHOLOGY * Prepare platelet pheresis 1 Unit (03/12/2020 8:52 AM EST) Site Performed at [place], [place] Med Univ Clin Pathology Called to ALIN [address] [place] [address] Univ Clin Pathology UNIT NUMBER [id number] [facility] Clin Pathology Blood Component Irr Lkrd(PAS) Plt Pheresis, [facility] ate Type 3rd Container Med Univ Clin Pathology Unit Division 00 [facility] Univ Clin Pathology STATUS OF UNIT REL FROM ALLOC [facility] Clin Pathology UNIT TAG Patient/Unit blood types [facility] COMMENT differ. Med Univ Clin Okay to transfuse. Pathology Store at room temperature. Do not refrigerate or place in cooler. TRANSFUSION OK TO TRANSFUSE [facility] Med Univ Clin Pathology UNIT NUMBER [id number] [facility] Pathology Blood Component Irr Lkrd(PAS) Plt Pheresis, JEFFREY Upst ate Type 3rd Container [facility] Pathology Unit Division 00 [facility] Pathology STATUS OF UNIT ISSUED, FINAL [facility] Pathology UNIT TAG Patient/Unit blood types [facility] COMMENT differ. Med Univ Clin Okay to transfuse. Pathology Store at room temperature. Do not refrigerate or place in cooler. TRANSFUSION OK TO TRANSFUSE [facility] STATUS [facility] Pathology Specimen EDTA Whole Blood Performing Organization Address City/[facility] Ph one Number [facility] [address] [place], [place] [address] [facility] [address] [place], [place] [address] 10 Clin Pathology * POCT glucose, docked (03/12/2020 7:43 AM EST) Pathologist [facility] POC Glucose 138 70 - 140 mg/dL [facility] POC Specimen Whole Blood Performing Organization Address [facility] Ph one Number POINT OF CARE TEST [address] [place] [address] [facility] POC [address] [place] [address] * CBC and Differential (03/12/2020 5:07 AM EST) Pathologist [facility] White Blood 0.5 (LL)Comment: No 4 - 10 10*3/[facility]L [facility] change since last Med Uni v Clin result called Pathology Red Blood Cell 2.09 (L) 4.1 - 5.3 10*6/uL [facility] Clin Pathology Hemoglobin 6.5 (L) 11.5 - 15.5 g/dL [facility] Pathology Hematocrit 18.3 (LL)Comment: No 36 - 45 % [facility] change since last Med Univ Clin result called Pathology Mean Cell 87.7 80 - 96 fL [facility] Volume [facility] Univ Clin Pathology Mean Cell 31.0 27 - 33 pg [facility] Hemoglobin Med Univ Clin Pathology Mean Cell Hgb 35.3 32.0 - 36.0 g/dL [facility] Univ Clin Pathology Red Cell Dist 13.8 11.5 - 14.5 % [facility] Width [facility] Univ Clin Pathology Platelet Count 10 (LL)Comment: No significant 150 - 400 10*3/ uL [facility] change since last result Med Univ Clin called Pathology Differential Manual Diff [facility] Type [facility] Univ Clin Pathology Neutrophil 1 % [facility] Clin Pathology Lymphocyte 87 % [facility] Clin Pathology Monocyte 0 % [facility] Clin Pathology Eosinophil 1 % [facility] Clin Pathology Basophil 0 % [facility] Clin Pathology Abs Neutrophil 0.01 (L) 1.8 - 7.0 10*3/uL [facility] Clin Pathology Abs Lymphocyte 0.43 (L) 1.2 - 4.0 10*3/uL [facility] Clin Pathology Abs Monocyte 0.00 0 - 0.8 10*3/uL [facility] Clin Pathology Abs Eosinophil 0.01 0 - 0.5 10*3/uL [facility] Clin Pathology Abs Basophil 0.00 0 - 0.2 10*3/uL [facility] Clin Pathology Nucleated Red 2 (H) 0 - 0 /100{WBCs} [facility] Blood Cells [facility] Univ Clin Pathology Atypical 3 % [facility] Lymphocytes [facility] Univ Clin Pathology Myelocyte 0 % [facility] Clin Pathology Blast 8 % [facility] Clin Pathology Abs Atyp Lymph 0.01 (H) 0 10*3/uL [facility] Clin Pathology Abs Myelocyte 0.00 0 - 0 10*3/uL [facility] Clin Pathology Abs Blast 0.04 (H) 0 - 0 10*3/uL [facility] Clin Pathology WBC Morphology Dysplastic cells seen [facility] Pathology Specimen EDTA Whole Blood Performing Organization Address [facility] Ph one Number [facility] [address] [place], [place] [address] [facility] [address] [place], [place] [address] Clin Pathology * Comprehensive Metabolic Panel (03/12/2020 5:07 AM EST) Albumin 2.3 (L) 3.5 - 5.2 g/dL [facility] Clin Pathology Bilirubin, 0.7 <1.2 mg/dL [facility] Total [facility] Clin Pathology Calcium 8.2 (L) 8.8 - 10.2 mg/dL [facility] Clin Pathology Chloride 113 (H) 98 - 107 mmol/L [facility] Clin Pathology Creatinine 1.64 (H) 0.50 - 0.90 mg/dL [facility] Clin Pathology Glucose 130 70 - 140 mg/dL [facility] Clin Pathology Alkaline 74 35 - 104 U/L [facility] Clin Pathology Potassium 4.0 3.4 - 5.1 mmol/L [facility] Clin Pathology Total Protein 4.5 (L) 6.4 - 8.3 g/dL [facility] Clin Pathology Sodium 135 (L) 136 - 145 mmol/L [facility] Clin Pathology AST/SGO 5 <32 U/L [facility] Clin Pathology Blood Urea 43 (H) 8 - 23 mg/dL [facility] Clin Pathology Osmolality, Nikolay 293 275 - 300 mosm/kg [facility] Pathology BUN/Cre Ratio 26 [facility] Clin Pathology Bicarbonate 16 (L) 22 - 29 mmol/L [facility] Clin Pathology ALT/SGP 5 <33 U/L [facility] Pathology Anion Gap 6 (L) 8 - 15 mmol/L [facility] Clin Pathology GFR Non 32 (L) >60 mL/min/1.73m2 [facility] 2008 [facility] CDK-EPI Pathology GFR 37 (L) >60 mL/min/1.73m2 [facility] 2008 [facility] CKD-EPI Pathology Specimen Plasma Performing Organization Address [facility] Ph one Number [facility] [address] [place], [place] [address] [address] Clin Pathology * Phosphorus Level (03/12/2020 5:07 AM EST) Phosphorus 3.1 2.5 - 4.5 mg/dL [facility] Clin Pathology Specimen Plasma Performing Organization Address [facility] Ph one Number [facility] [address] [place], [place] [address] [address] 10 Clin Pathology * Magnesium Level (03/12/2020 5:07 AM EST) Magnesium 2.0 1.6 - 2.4 mg/dL [facility] Clin Pathology Specimen Plasma Performing Organization Address [facility]/Zipcode Ph one Number [facility] [address] [place], [place] [address] [facility] [address] [place], [place] [address] 10 Clin Pathology * POCT glucose, docked (03/11/2020 9:35 PM EST) Pathologist [facility] POC Glucose 128 70 - 140 mg/dL [facility] POC Specimen Whole Blood Performing Organization Address City/[facility] Ph one Number POINT OF CARE TEST [address] [place] [address] [facility] POC [address] [place] [address] * CBC and Differential (03/11/2020 4:45 PM EST) Pathologist [facility] White Blood 0.5 (LL)Comment: No 4 - 10 10*3/uL [facility] significant change since last Med Uni v Clin result called Pathology Red Blood Cell 2.19 (L) 4.1 - 5.3 10*6/uL [facility] Univ Clin Pathology Hemoglobin 6.8 (L) 11.5 - 15.5 g/dL [facility] Univ Clin Pathology Hematocrit 19.1 (LL)Comment: No 36 - 45 % [facility] change since last Med Univ Clin result called Pathology Mean Cell 87.1 80 - 96 fL [facility] Volume Med [facility] Clin Pathology Mean Cell 31.0 27 - 33 pg [facility] Hemoglobin Med [facility] Clin Pathology Mean Cell Hgb 35.5 32.0 - 36.0 g/dL [facility] Conc [facility] Univ Clin Pathology Red Cell Dist 14.1 11.5 - 14.5 % [facility] Width [facility] Univ Clin Pathology Platelet Count 13 (LL)Comment: No significant 150 - 400 10*3/ uL [facility] change since last result Med Univ Clin called Pathology Differential Manual Diff [facility] Type Med [facility] Clin Pathology Neutrophil 1 % [facility] Univ Clin Pathology Lymphocyte 84 % [facility] Univ Clin Pathology Monocyte 2 % [facility] Univ Clin Pathology Eosinophil 1 % [facility] Univ Clin Pathology Abs Neutrophil 0.01 (L) 1.8 - 7.0 10*3/uL [facility] Univ Clin Pathology Abs Lymphocyte 0.42 (L) 1.2 - 4.0 10*3/uL [facility] Univ Clin Pathology Abs Monocyte 0.01 0 - 0.8 10*3/uL [facility] Clin Pathology Abs Eosinophil 0.01 0 - 0.5 10*3/uL [facility] Pathology Nucleated Red 1 (H) 0 - 0 /100{WBCs} [facility] Blood Cells [facility] Clin Pathology Atypical 5 % [facility] Lymphocytes [facility] Pathology Myelocyte 1 % [facility] Clin Pathology Blast 6 % [facility] Clin Pathology Abs Atyp Lymph 0.03 (H) 0 10*3/uL [facility] Clin Pathology Abs Myelocyte 0.01 (H) 0 - 0 10*3/uL [facility] Clin Pathology Abs Blast 0.03 (H) 0 - 0 10*3/uL [facility] Pathology Specimen EDTA Whole Blood Performing Organization Address City/[facility] Ph one Number [facility] [address] [place], [place] [address] [facility] [address] [place], [place] [address] Clin Pathology * POCT glucose, docked (03/11/2020 4:34 PM EST) Pathologist [facility] POC Glucose 137 70 - 140 mg/dL [facility] POC Specimen Whole Blood Performing Organization Address [facility] Ph one Number POINT OF CARE TEST [address] [place], [place] [id number] [place] [address] POC [address] [place] [address] * Prepare platelet pheresis 1 Unit (03/11/2020 1:56 PM EST) Pathologist [facility] Site Performed at [facility] Clin Pathology UNIT NUMBER [id number] [facility] Pathology Blood Component Irr Lkrd(PAS) Plt Pheresis, [facility] ate Type 3rd Container Med [facility] Clin Pathology Unit Division 00 [facility] Clin Pathology STATUS OF UNIT ISSUED, FINAL [facility] Pathology UNIT TAG Patient/Unit blood types [facility] COMMENT differ. Med Univ Clin Okay to transfuse. Pathology Store at room temperature. Do not refrigerate or place in cooler. TRANSFUSION OK TO TRANSFUSE [facility] Pathology Specimen EDTA Whole Blood Performing Organization Address City/[facility] Ph one Number [facility] [address] [place], [place] [address] [facility] [address] [place], [place] [address] Clin Pathology * Fecal occult blood, upper GI (Hemoccult-GLORIA) (03/11/2020 11:49 AM EST) Special Request None [facility] PATHOLOGY Occult Blood FECAL OCCULT BLOOD: POSITIVE [facility]wari (A) [facility] Clin Pathology Specimen Stool Performing Organization Address [facility] one Number [facility] [address] [place], [place] [address] [facility] [address] [place], [place] [address] Clin Pathology * POCT glucose, docked (03/11/2020 11:40 AM EST) POC Glucose 98 70 - 140 mg/dL [facility] POC Specimen Whole Blood Performing Organization Address [facility] one Number POINT OF CARE TEST [address] [place] [address] [facility] POC [address] [place] [address] * POCT glucose, docked (03/11/2020 7:37 AM EST) POC Glucose 97 70 - 140 mg/dL [facility] POC Specimen Whole Blood Performing Organization Address [facility] one [facility] POINT OF CARE TEST [address] [place] [address] [facility] POC [address] [place] [address] * Type and Screen (03/11/2020 1:20 AM EST) ABO/RH(D) O POS [facility] Clin Pathology Gel Antibody NEG [facility] Screen [facility] Univ Clin Pathology Site Performed at [facility], [place], [place] Med Univ Clin Pathology UNIT NUMBER [id number] [facility] Clin Pathology Blood Component Irradiated Leukoreduced Red [facility] Upst ate Type Cell Med Univ Clin Pathology Unit Division 00 [facility] Clin Pathology STATUS OF UNIT ISSUED, FINAL [facility] Clin Pathology TRANSFUSION OK TO TRANSFUSE [facility] Med Univ Clin Pathology CROSSMATCH Compatible [facility] Univ Clin Pathology UNIT NUMBER [id number] [place] [facility] Pathology Blood Component Irradiated LRC, 1st Container [facility] Type Med Univ Clin Pathology Unit Division 00 [facility] Univ Clin Pathology STATUS OF UNIT ISSUED, FINAL [facility] Univ Clin Pathology TRANSFUSION OK TO TRANSFUSE [facility] Med Univ Clin Pathology CROSSMATCH Compatible [facility] Med Univ Clin Pathology UNIT NUMBER [id number] [facility] Clin Pathology Blood Component Irradiated Leukoreduced Red JEFFREY Upst ate Type Cell Med Univ Clin Pathology Unit Division 00 [facility] Univ Clin Pathology STATUS OF UNIT ISSUED, FINAL [facility] Univ Clin Pathology TRANSFUSION OK TO TRANSFUSE [facility] Med Univ Clin Pathology CROSSMATCH Compatible [facility] Univ Clin Pathology UNIT NUMBER [id number] [facility] Clin Pathology Blood Component Irradiated Leukoreduced Red JEFFREY Upst ate Type Cell Med Univ Clin Pathology Unit Division 00 [facility] Clin Pathology STATUS OF UNIT ISSUED, FINAL [facility] Univ Clin Pathology TRANSFUSION OK TO TRANSFUSE [facility] Univ Clin Pathology CROSSMATCH Compatible [facility] Med Univ Clin Pathology UNIT NUMBER [id number] [facility] Clin Pathology Blood Component Irradiated Leukoreduced Red JEFFREY Upst ate Type Cell Med Univ Clin Pathology Unit Division 00 [facility] Clin Pathology STATUS OF UNIT ISSUED, FINAL [facility] Clin Pathology TRANSFUSION OK TO TRANSFUSE [facility] Univ Clin Pathology CROSSMATCH Compatible [facility] Univ Clin Pathology Specimen EDTA Whole Blood Performing Organization Address [facility] Ph one Number [facility] [address] [place], [place] [address] [address] Clin Pathology * Urine Culture ; Urine (03/11/2020 12:44 AM EST) Special Request None [facility] PATHOLOGY Culture/Results NO GROWTH [facility] Clin Pathology Specimen Urine Performing Organization Address [facility] one Number [facility] [address] [place], [place] [address] [address] Clin Pathology * Vancomycin, random (03/11/2020 12:28 AM EST) Vancomycin, 19.9 ug/mL [facility] Random [facility] Univ Clin Pathology Specimen Plasma Performing Organization Address [facility] Ph one Number [facility] [address] [place], [place] [address] [facility] [address] [place], [place] [address] Clin Pathology * CBC and Differential (03/11/2020 12:28 AM EST) Pathologist [facility] White Blood 0.4 (LL)Comment: No 4 - 10 10*3/uL [facility] significant change since last Med Uni v Clin result called Pathology Red Blood Cell 1.87 (L) 4.1 - 5.3 10*6/uL [facility] Univ Clin Pathology Hemoglobin 5.7 (L) 11.5 - 15.5 g/dL [facility] Univ Clin Pathology Hematocrit 16.5 (LL)Comment: No 36 - 45 % [facility] change since last Med Univ Clin result called Pathology Mean Cell 88.2 80 - 96 fL [facility] Volume Med Univ Clin Pathology Mean Cell 30.4 27 - 33 pg [facility] Hemoglobin Med Univ Clin Pathology Mean Cell Hgb 34.5 32.0 - 36.0 g/dL [facility] Conc Med Univ Clin Pathology Red Cell Dist 14.0 11.5 - 14.5 % [facility] Width Med [facility] Clin Pathology Platelet Count 11 (LL)Comment: No significant 150 - 400 10*3/ uL [facility] change since last result Med Univ Clin called Pathology Differential Manual Diff [facility] Type Med [facility] Clin Pathology Lymphocyte 88 % [facility] Univ Clin Pathology Monocyte 2 % [facility] Univ Clin Pathology Abs Lymphocyte 0.35 (L) 1.2 - 4.0 10*3/uL [facility] Univ Clin Pathology Abs Monocyte 0.01 0 - 0.8 10*3/uL [facility] Univ Clin Pathology Atypical 4 % [facility] Lymphocytes Med Univ Clin Pathology Blast 6 % [facility] Univ Clin Pathology Abs Atyp Lymph 0.02 (H) 0 10*3/uL [facility] Univ Clin Pathology Abs Blast 0.03 (H) 0 - 0 10*3/uL [facility] Univ Clin Pathology Specimen EDTA Whole Blood Performing Organization Address City/[facility] Ph one Number [facility] [address] [place], [place] [address] [address] Clin Pathology * Basic Metabolic Panel (03/11/2020 12:28 AM EST) Bicarbonate 16 (L) 22 - 29 mmol/L [facility] Clin Pathology Chloride 114 (H) 98 - 107 mmol/L [facility] Clin Pathology Creatinine 1.39 (H) 0.50 - 0.90 mg/dL [facility] Clin Pathology Glucose 114 70 - 140 mg/dL [facility] Clin Pathology Potassium 4.3 3.4 - 5.1 mmol/L [facility] Clin Pathology Sodium 136 136 - 145 mmol/L [facility] Clin Pathology Blood Urea 42 (H) 8 - 23 mg/dL [facility] Clin Pathology Anion Gap 6 (L) 8 - 15 mmol/L [facility] Clin Pathology Osmolality, Nikolay 293 275 - 300 mosm/kg [facility] Clin Pathology BUN/Cre Ratio 30 [facility] Clin Pathology Calcium 7.4 (L) 8.8 - 10.2 mg/dL [facility] Clin Pathology GFR Non 39 (L) >60 mL/min/1.73m2 [facility] 2008 Med [facility] Clin CDK-EPI Pathology GFR 45 (L) >60 mL/min/1.73m2 [facility] 2008 [facility] Clin CKD-EPI Pathology Specimen Plasma Performing Organization Address [facility] Ph one Number [facility] [address] [place], [place] [address] [address] Clin Pathology * Phosphorus Level (03/11/2020 12:28 AM EST) Phosphorus 2.7 2.5 - 4.5 mg/dL [facility] Clin Pathology Specimen Plasma Performing Organization Address City/[facility] Ph one Number [facility] [address] [place], [place] [address] [address] Clin Pathology * Magnesium Level (03/11/2020 12:28 AM EST) Magnesium 1.9 1.6 - 2.4 mg/dL [facility] Clin Pathology Specimen Plasma Performing Organization Address [facility] one Number [facility] [address] [place], [place] [address] [facility] [address] [place], [place] [address] Clin Pathology * POCT glucose, docked (03/10/2020 9:05 PM EST) POC Glucose 135 70 - 140 mg/dL [facility] POC Specimen Whole Blood Performing Organization Address [facility] one Number POINT OF CARE TEST [address] [place] [address] [facility] POC [address] [place] [address] * MRSA Culture (03/10/2020 7:05 PM EST) Special Request None [facility] PATHOLOGY Culture/Results NO Methicillin resistant [facility] Staphylococcus aureus isolated [facility] Pathology Specimen Nares Performing Organization Address [facility] one Number [facility] [address] [place], [place] [address] 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 COMPARISON: DX XR CHEST FRONTAL ONLY [id number] PORTABLE 03/06/2020 11:56 PM FINDINGS: Tubes, catheters and devices: AICD on l eft. Right port catheter unchanged. Lungs: Prominent interstitial markings and peribronchial thickening suggesting reactive airway disease. No consolidati on. Pleural space: No pleural effusion. No pneumothorax. Heart/Mediastinum: Cardiac silhouette e nlarged. Calcified tortuous aorta. Bones/joints: Unremarkable. IMPRESSION: No acute infiltrate. 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 COMPARISON: DX XR CHEST FRONTAL ONLY [id number] PORTABLE 03/06/2020 11:56 PM FINDINGS: Tubes, catheters and devices: AICD on left. Right port catheter unchanged. Lungs: Prominent interstitial markings and peribronchial thickening suggesting reactive airway disease. No consolidation. Pleural space: No pleural effusion. No pneumothorax. Heart/Mediastinum: Cardiac silhouette enlarged. Calcified tortuous aorta. Bones/joints: Unremarkable. IMPRESSION: No acute infiltrate. THIS DOCUMENT HAS BEEN ELECTRONICALLY SIGNED BY ADELAIDA PEÑA MD Performing Organization Address City/[facility] one Number [facility] [address] [place] [address] * Blood culture ; Peripheral (03/10/2020 6:45 PM EST) Special Request PORT [facility] Clin Pathology Culture/Results NO GROWTH [facility] Clin Pathology Specimen Peripheral Performing Organization Address [facility] one Number [facility] [address] [place], [place] [address] [facility] [address] [place], [place] [address] Clin Pathology * Blood culture ; Line (03/10/2020 6:45 PM EST) Special Request R HAND [facility] Clin Pathology Culture/Results NO GROWTH [facility] Clin Pathology Specimen Line Performing Organization Address [facility] one Number [facility] [address] [place], [place] [address] [facility] [address] [place], [place] [address] Clin Pathology * POCT glucose, docked (03/10/2020 4:57 PM EST) POC Glucose 88 70 - 140 mg/dL [facility] POC Specimen Whole Blood Performing Organization Address [facility] one Number POINT OF CARE TEST [address] [place] [address] [facility] POC [address] [place] [address] * POCT glucose, docked (03/10/2020 11:26 AM EST) Pathologist [facility] POC Glucose 77 70 - 140 mg/dL [facility] POC Specimen Whole Blood Performing Organization Address [facility] one Number POINT OF CARE TEST [address] [place] [address] [facility] POC [address] [place] [address] * Platelet count (03/10/2020 9:00 AM EST) [facility] Platelet Count 19 (LL)Comment: Called to and 150 - 400 10*3/u L [facility] read back by kimberly olmeod rn Med Univ Clin in 10h at [phone] Pathology Specimen EDTA Whole Blood Performing Organization Address [facility] one Number [facility] [address] [place], [place] [address] [facility] [address] [place], [place] [address] Clin Pathology * POCT glucose, docked (03/10/2020 7:54 AM EST) Pathologist [facility] POC Glucose 91 70 - 140 mg/dL [facility] POC Specimen Whole Blood Performing Organization Address [facility] one Number POINT OF CARE TEST [address] [place] [address] [facility] POC [address] [place] [address] * Prepare platelet pheresis 1 Unit (03/10/2020 2:17 AM EST) Pathologist [facility] Site Performed at [facility] Univ Clin Pathology UNIT NUMBER [id number] [facility] Clin Pathology Blood Component Irr Lkrd(PAS) Plt Pheresis, [facility] ate Type 2nd Container Med Univ Clin Pathology Unit Division 00 [facility] Clin Pathology STATUS OF UNIT ISSUED, FINAL [facility] Clin Pathology UNIT TAG Patient/Unit blood types [facility] COMMENT differ. Med Univ [facility] Okay to transfuse. Pathology Store at room temperature. Do not refrigerate or place in cooler. TRANSFUSION OK TO TRANSFUSE [facility] STATUS [facility] Clin Pathology Specimen EDTA Whole Blood Performing Organization Address City/[facility] one Number [facility] [address] [place], [place] [address] [facility] [address] [place], [place] [address] Clin Pathology * CBC and Differential (03/10/2020 12:23 AM EST) White Blood 0.5 (LL)Comment: Called to and 4 - 10 10*3/uL [facility] Cell read back by Kaitlyn Muñoz [facility] Clin RN, 10H, 02:00. 1663 Pathology Red Blood Cell 2.06 (L) 4.1 - 5.3 10*6/uL [facility] Clin Pathology Hemoglobin 6.3 (L) 11.5 - 15.5 g/dL [facility] Clin Pathology Hematocrit 18.1 (LL)Comment: Called to 36 - 45 % [facility] and read back by Kaitlyn [facility] Clin JESSY Muñoz, 10H, 02:00. Pathology 1663 Mean Cell 88.1 80 - 96 fL [facility] Volume [facility] Univ Clin Pathology Mean Cell 30.8 27 - 33 pg [facility] Hemoglobin [facility] Clin Pathology Mean Cell Hgb 34.9 32.0 - 36.0 g/dL [facility] Conc [facility] Clin Pathology Red Cell Dist 13.9 11.5 - 14.5 % [facility] Width [facility] Clin Pathology Platelet Count 6 (LL)Comment: Called to and 150 - 400 10*3/uL [facility] read back by Kaitlyn Muñoz [facility] Clin RN, 10H, 02:00. 1663 Pathology Differential Manual Diff [facility] Type [facility] Clin Pathology Neutrophil 1 % [facility] Clin Pathology Lymphocyte 83 % [facility] Clin Pathology Monocyte 2 % [facility] Clin Pathology Abs Neutrophil 0.01 (L) 1.8 - 7.0 10*3/uL [facility] Clin Pathology Abs Lymphocyte 0.42 (L) 1.2 - 4.0 10*3/uL [facility] Clin Pathology Abs Monocyte 0.01 0 - 0.8 10*3/uL [facility] Clin Pathology Nucleated Red 1 (H) 0 - 0 /100{WBCs} [facility] Blood Cells [facility] Clin Pathology Atypical 5 % [facility] Lymphocytes [facility] Clin Pathology Blast 9 % [facility] Clin Pathology Abs Atyp Lymph 0.02 (H) 0 10*3/uL [facility] Clin Pathology Abs Blast 0.04 (H) 0 - 0 10*3/uL [facility] Clin Pathology Anisocytosis 1+ [facility] Clin Pathology Specimen EDTA Whole Blood Performing Organization Address [facility] one Number [facility] [address] [place], [place] [address] [address] Clin Pathology * Basic Metabolic Panel (03/10/2020 12:23 AM EST) Bicarbonate 17 (L) 22 - 29 mmol/L [facility] Clin Pathology Chloride 113 (H) 98 - 107 mmol/L [facility] Clin Pathology Creatinine 1.35 (H) 0.50 - 0.90 mg/dL [facility] Clin Pathology Glucose 100 70 - 140 mg/dL [facility] Clin Pathology Potassium 4.5 3.4 - 5.1 mmol/L [facility] Clin Pathology Sodium 137 136 - 145 mmol/L [facility] Pathology Blood Urea 43 (H) 8 - 23 mg/dL [facility] Clin Pathology Anion Gap 7 (L) 8 - 15 mmol/L [facility] Clin Pathology Osmolality, Nikolay 295 275 - 300 mosm/kg [facility] Clin Pathology BUN/Cre Ratio 32 [facility] Clin Pathology Calcium 7.6 (L) 8.8 - 10.2 mg/dL [facility] Clin Pathology GFR Non 40 (L) >60 mL/min/1.73m2 [facility] 2008 Med [facility] Clin CDK-EPI Pathology GFR 47 (L) >60 mL/min/1.73m2 [facility] 2008 [facility] Clin CKD-EPI Pathology Specimen Plasma Performing Organization Address [facility] one Number [facility] [address] [place], [place] [address] [address] Clin Pathology * Phosphorus Level (03/10/2020 12:23 AM EST) Phosphorus 3.0 2.5 - 4.5 mg/dL [facility] Clin Pathology Specimen Plasma Performing Organization Address [facility] one Number [facility] [address] [place], [place] [address] [facility] [address] [place], [place] [address] Clin Pathology * Magnesium Level (03/10/2020 12:23 AM EST) Pathologist [facility] Magnesium 1.9 1.6 - 2.4 mg/dL [facility] Clin Pathology Specimen Plasma Performing Organization Address [facility] one Number [facility] [address] [place], [place] [address] [facility] [address] [place], [place] [address] Clin Pathology * POCT glucose, docked (03/09/2020 9:16 PM EST) [facility] POC Glucose 90 70 - 140 mg/dL [facility] POC Specimen Whole Blood Performing Organization Address [facility] POINT OF CARE TEST [address] [place] [address] [facility] POC [address] [place] [address] * POCT glucose, docked (03/09/2020 4:45 PM EST) [facility] POC Glucose 102 70 - 140 mg/dL [facility] POC Specimen Whole Blood Performing Organization Address [facility] POINT OF CARE TEST [address] [place], [place] [address] [place] [address] POC [address] [place] [address] * Folate (03/09/2020 11:51 AM EST) [facility] Folate 7.21 >4.77 ng/mL [facility] Clin Pathology Specimen Serum Performing Organization Address [facility] one Number [facility] [address] [place], [place] [address] [facility] [address] [place], [place] [address] Clin Pathology * CBC and Differential (03/09/2020 11:51 AM EST) [facility] White Blood 0.6 (LL)Comment: Called to and 4 - 10 10*3/uL [facility] Cell read back by feliz davey rn Med Un iv Clin in 10h at [phone] Pathology Red Blood Cell 2.47 (L) 4.1 - 5.3 10*6/uL [facility] Clin Pathology Hemoglobin 7.6 (L) 11.5 - 15.5 g/dL [facility] Clin Pathology Hematocrit 21.7 (L)Comment: Called to and 36 - 45 % [facility] read back by feliz davey rn [facility] Clin in 10h at [phone] Pathology Mean Cell 88.1 80 - 96 fL [facility] Volume [facility] Clin Pathology Mean Cell 30.7 27 - 33 pg [facility] Hemoglobin [facility] Clin Pathology Mean Cell Hgb 34.9 32.0 - 36.0 g/dL [facility] Conc [facility] Clin Pathology Red Cell Dist 13.9 11.5 - 14.5 % [facility] Width [facility] Clin Pathology Platelet Count 10 (LL)Comment: Called to and 150 - 400 10*3/u L [facility] read back by feliz davey rn [facility] Clin in 10h at [phone] Pathology Differential Manual Diff [facility] Type [facility] Clin Pathology Neutrophil 7 % [facility] Clin Pathology Lymphocyte 81 % [facility] Univ Clin Pathology Monocyte 1 % [facility] Clin Pathology Eosinophil 2 % [facility] Clin Pathology Basophil 1 % [facility] Clin Pathology Abs Neutrophil 0.04 (L) 1.8 - 7.0 10*3/uL [facility] Clin Pathology Abs Lymphocyte 0.49 (L) 1.2 - 4.0 10*3/uL [facility] Clin Pathology Abs Monocyte 0.01 0 - 0.8 10*3/uL [facility] Clin Pathology Abs Eosinophil 0.01 0 - 0.5 10*3/uL [facility] Clin Pathology Abs Basophil 0.01 0 - 0.2 10*3/uL [facility] Clin Pathology Nucleated Red 1 (H) 0 - 0 /100{WBCs} [facility] Blood Cells [facility] Clin Pathology Myelocyte 1 % [facility] Clin Pathology Blast 7 % [facility] Clin Pathology Abs Myelocyte 0.01 (H) 0 - 0 10*3/uL [facility] Clin Pathology Abs Blast 0.04 (H) 0 - 0 10*3/uL [facility] Clin Pathology Specimen EDTA Whole Blood Performing Organization Address City/State/[place] [facility] one Number [facility] [address] [place], [place] [address] [address] Clin Pathology * POCT glucose, docked (03/09/2020 11:32 AM EST) POC Glucose 83 70 - 140 mg/dL [facility] POC Specimen Whole Blood Performing Organization Address [facility] one Number POINT OF CARE TEST [address] [place] [address] [facility] POC [address] [place] [address] * Partial Thromboplastin Time (PTT) (03/09/2020 9:40 AM EST) PTT 33.1 (H) 24.0 - 33.[address] [facility] Clin Pathology Specimen Plasma Performing Organization Address [facility] one Number [address] [address] Clin Pathology * Reticulocytes (03/09/2020 9:40 AM EST) % Reticulocytes 0.3 (L) 0.6 - 2.8 % [facility] Automated [facility] Clin Pathology Absolute Retic 7.2 (L) 26 - 122 10*3/uL [facility] Automated [facility] Clin Pathology Immature Retic 0.21 (L) 0.26 - 0.52 % [facility] Clin Pathology Specimen EDTA Whole Blood Performing Organization Address [facility] one Number [facility] [address] [place], [place] [address] [address] Clin Pathology * Vitamin B12 (03/09/2020 9:40 AM EST) Vitamin B12 621 211 - 946 pg/ml [facility] Clin Pathology Specimen Plasma Performing Organization Address [facility] one Number [facility] [address] [place], [place] [address] [address] Clin Pathology * Fibrinogen Level (03/09/2020 9:40 AM EST) Fibrinogen 386 190 - 450 mg/dl [facility] Clin Pathology Specimen Plasma Performing Organization Address [facility] one Number [facility] [address] [place], [place] [address] [facility] [address] [place], [place] [address] Clin Pathology * Protime-INR (03/09/2020 9:40 AM EST) PT Patient 15.9 (H) 12.5 - 14.[address] [facility] Clin Pathology Int'l 1.26Comment: Routine intensity JFEFREY [place] Normalized oral anticoagulation INR is Med Univ Clin Ratio typically 2.0-3.0. Target INR Patholo gy must be clinically individualized. Specimen Plasma Performing Organization Address [facility] one Number [address] [address] Clin Pathology * POCT glucose, docked (03/09/2020 7:45 AM EST) POC Glucose 74 70 - 140 mg/dL [facility] POC Specimen Whole Blood Performing Organization Address [facility] Number POINT OF CARE TEST [address] [place] [address] [facility] POC [address] [place] [address] * Phosphorus Level (03/09/2020 12:04 AM EST) Phosphorus 2.8 2.5 - 4.5 mg/dL [facility] Clin Pathology Specimen Plasma Performing Organization Address [facility] one Number [facility] [address] [place], [place] [address] [address] Clin Pathology * Magnesium Level (03/09/2020 12:04 AM EST) Magnesium 2.1 1.6 - 2.4 mg/dL [facility] Clin Pathology Specimen Plasma Performing Organization Address [facility] one Number [facility] [address] [place], [place] [address] [facility] [address] [place], [place] [address] Clin Pathology * Comprehensive Metabolic Panel (03/09/2020 12:04 AM EST) Albumin 2.6 (L) 3.5 - 5.2 g/dL [facility] Clin Pathology Bilirubin, 0.5 <1.2 mg/dL [facility] Clin Pathology Calcium 7.9 (L) 8.8 - 10.2 mg/dL [facility] Clin Pathology Chloride 111 (H) 98 - 107 mmol/L [facility] Clin Pathology Creatinine 1.53 (H) 0.50 - 0.90 mg/dL [facility] Clin Pathology Glucose 86 70 - 140 mg/dL [facility] Clin Pathology Alkaline 72 35 - 104 U/L [facility] Clin Pathology Potassium 4.1 3.4 - 5.1 mmol/L [facility] Pathology Total Protein 4.7 (L) 6.4 - 8.3 g/dL [facility] Clin Pathology Sodium 136 136 - 145 mmol/L [facility] Clin Pathology AST/SGO 6 <32 U/L [facility] Pathology Blood Urea 50 (H) 8 - 23 mg/dL [facility] Clin Pathology Osmolality, Nikolay 295 275 - 300 mosm/kg [facility] Clin Pathology BUN/Cre Ratio 33 [facility] Clin Pathology Bicarbonate 18 (L) 22 - 29 mmol/L [facility] Clin Pathology ALT/SGP <5 <33 U/L [facility] Clin Pathology Anion Gap 8 8 - 15 mmol/L [facility] Clin Pathology GFR Non 35 (L) >60 mL/min/1.73m2 [facility] 2008 [facility] Clin CDK-EPI Pathology GFR 40 (L) >60 mL/min/1.73m2 [facility] 2008 [facility] CKD-EPI Pathology Specimen Plasma Performing Organization Address [facility] one Number [facility] [address] [place], [place] [address] [address] Clin Pathology * CBC (03/09/2020 12:04 AM EST) White Blood 0.6 (LL)Comment: No 4 - 10 10*3/uL JEFFREY [facility] Cell significant change since last Med Uni v Clin result called Pathology Red Blood Cell 2.09 (L) 4.1 - 5.3 10*6/uL [facility] Univ Clin Pathology Hemoglobin 6.3 (L) 11.5 - 15.5 g/dL [facility] Clin Pathology Hematocrit 18.4 (LL)Comment: No 36 - 45 % JEFFREY Up[employer] ate significant change since last Med Univ Clin result called Pathology Mean Cell 88.1 80 - 96 fL [facility] Volume [facility] Clin Pathology Mean Cell 30.4 27 - 33 pg [facility] Hemoglobin [facility] Clin Pathology Mean Cell Hgb 34.5 32.0 - 36.0 g/dL [facility] Univ Clin Pathology Red Cell Dist 14.0 11.5 - 14.5 % [facility] Width [facility] Clin Pathology Platelet Count 10 (LL)Comment: No significant 150 - 400 10*3/ uL [facility] change since last result [facility] Clin called Pathology Specimen EDTA Whole Blood Performing Organization Address [facility] one Number [facility] [address] [place], [place] [address] [facility] [address] [place], [place] [address] Clin Pathology * POCT glucose, docked (03/08/2020 9:28 PM EST) POC Glucose 132 70 - 140 mg/dL [facility] POC Specimen Whole Blood Performing Organization Address [facility] one Number POINT OF CARE TEST [address] [place] [address] [facility] POC [address] [place] [address] * POCT glucose, docked (03/08/2020 4:40 PM EST) Pathologist [facility] POC Glucose 109 70 - 140 mg/dL [facility] POC Specimen Whole Blood Performing Organization Address [facility] one Number POINT OF CARE TEST [address] [place] [address] [facility] POC [address] [place] [address] * EKG 12-LEAD - CMAXX REPORT (03/08/2020 2:29 PM EST) Narrative Performed At This result has an attachment that is n ot available. * EKG 12-LEAD - CMAXX REPORT (03/08/2020 2:29 PM EST) Narrative Performed At This result has an attachment that is n ot available. * EKG 12 Lead (03/08/2020 2:29 PM EST) Specimen Narrative Performed At Ventricular Rate: [facility] [facility] EKG 58 BPM Atrial Rate: 58 BPM P-R Interval: 134 ms QRS Duration: 126 ms Q-T Interval: 484 ms QTC Calculation(Bazett): 475 ms P Dequincy: 25 degrees R Dequincy: -10 degrees T Dequincy: -43 degrees : SINUS BRADYCARDIA : LOW VOLTAGE QRS IN LIMB LEADS : RIGHT BUNDLE BRANCH BLOCK : ABNORMAL ECG : WHEN COMPARED WITH ECG OF 07-MAR-2020 19:54, : VENT. RATE HAS DECREASED BY 29 BPM : T WAVE INVERSION NO LONGER EVIDENT IN ANTEROLATERAL LEADS : Confirmed by Orlin Castillo ( 63) on 03/08/2020 2:41:49 : PM Procedure Note Interface, Received Via [employer] - 03/08/2020 2:42 PM EST Ventricular Rate: 58 BPM Atrial Rate: 58 BPM P-R Interval: 134 ms QRS Duration: 126 ms Q-T Interval: 484 ms QTC Calculation(Bazett): 475 ms P Dequincy: 25 degrees R Dequincy: -10 degrees T Dequincy: -43 degrees : SINUS BRADYCARDIA : LOW VOLTAGE QRS IN LIMB LEADS : RIGHT BUNDLE BRANCH BLOCK : ABNORMAL ECG : WHEN COMPARED WITH ECG OF 07-MAR-2020 19:54, : VENT. RATE HAS DECREASED BY 29 BPM : T WAVE INVERSION NO LONGER EVIDENT IN ANTEROLATERAL LEADS : Confirmed by Orlin Castillo ([id number]) on 03/08/2020 2:41:49 : PM Performing Organization Address City/State/Zipcode Ph one Number [facility] EKG * CBC (03/08/2020 11:37 AM EST) White Blood 0.7 (LL)Comment: No 4 - 10 10*3/uL [facility] te Cell significant change since last Med Uni v Clin result called Pathology Red Blood Cell 2.36 (L) 4.1 - 5.3 10*6/uL [facility] Clin Pathology Hemoglobin 7.2 (L) 11.5 - 15.5 g/dL [facility] Clin Pathology Hematocrit 20.7 (LL)Comment: No 36 - 45 % [facility] Upst ate significant change since last [facility] Clin result called Pathology Mean Cell 87.8 80 - 96 fL [facility] Volume Med Univ Clin Pathology Mean Cell 30.7 27 - 33 pg [facility] Hemoglobin Med Univ Clin Pathology Mean Cell Hgb 35.0 32.0 - 36.0 g/dL [facility] Conc [facility] Univ Clin Pathology Red Cell Dist 13.8 11.5 - 14.5 % [facility] Width [facility] Univ Clin Pathology Platelet Count 17 (LL)Comment: No significant 150 - 400 10*3/ uL [facility] change since last result [facility] Clin called Pathology Specimen EDTA Whole Blood Performing Organization Address [facility] Ph one Number [facility] CL[facility]ICAL [address] [place], [place] [address] [facility] [address] [place], [place] [address] 10 Clin Pathology * POCT glucose, docked (03/08/2020 11:35 AM EST) POC Glucose 128 70 - 140 mg/dL [facility] POC Specimen Whole Blood Performing Organization Address City/[facility] Ph one Number POINT OF CARE TEST [address] [place] [address] [facility] POC [address] [place] [address] * CT Abdomen Pelvis without Contrast (03/08/2020 9:46 AM EST) Specimen Narrative Performed At PROCEDURE INFORMATION: [facility] RADIOLOGY Exam: CT Abdomen And Pelvis Without Con trast Exam date and time: 03/08/2020 9:46 AM Age: 65 years old Clinical indication: Other: Anemia; Add itional info: Anemia , evaluate for retroperitoneal bleed TECHNIQUE: Imaging protocol: Computed tomography o f the abdomen and pelvis without contrast. Radiation optimization: All CT scans at this facility use at least one of these dose optimization techniques: automated exposure control; mA and/or kV adjustment per patient size (includes t argeted exams where dose is matched to clinical indication); or iterative charles nstruction. COMPARISON: No relevant prior studies available. FINDINGS: Tubes, catheters and devices: An AICD i s in place. Lungs: There is peribronchial thickenin g consistent with reactive airway disease. Liver: Normal. No mass. Gallbladder and bile ducts: Normal. No calcified stones. No ductal dilation. Pancreas: Normal. No ductal dilation. Spleen: Normal. No splenomegaly. Adrenal glands: There is diffuse bilate ral nonspecific adrenal enlargement. Kidneys and ureters: There is enlargeme nt of the right renal pelvis with inflammatory change and mild right estella nephric stranding. No stone. This may possibly be secondary to infection. Sug gest clinical correlation. The left kidney is atrophic. Stomach and bowel: There is extensive d iverticulosis throughout the colon. Appendix: A normal appendix is identifi ed. Intraperitoneal space: Unremarkable. No free air. No significant fluid collection. Vasculature: There is extensive atheros clerotic calcification. Lymph nodes: Unremarkable. No enlarged lymph nodes. Urinary bladder: Unremarkable as visual ized. Reproductive: Unremarkable as visualize d. Bones/joints: There are degenerative ch anges of the spine. Soft tissues: Unremarkable. IMPRESSION: 1. There is enlargement of the right re nal pelvis with inflammatory change and mild right perinephric stranding. No st one. This may possibly be secondary to infection. Suggest clinical correlation . 2. The left kidney is atrophic. 3. Extensive diverticulosis throughout the colon. 4. There is extensive atherosclerotic c alcification. THIS DOCUMENT HAS BEEN ELECTRONICALLY S IGNED BY GAL PAGAN MD Procedure Note Interface, Received Via [employer] - 03/08/2020 10:03 AM EST PROCEDURE INFORMATION: Exam: CT Abdomen And Pelvis Without Contrast Exam date and time: 03/08/2020 9:46 AM Age: 65 years old Clinical indication: Other: Anemia; Additional info: Anemia , evaluate for retroperitoneal bleed TECHNIQUE: Imaging protocol: Computed tomography of the abdomen and pelvis without contrast. Radiation optimization: All CT scans at this facility use at least one of these dose optimization techniques: automated exposure control; mA and/or kV adjustment per patient size (includes targeted exams where dose is matched to clinical indication); or iterative reconstruction. COMPARISON: No relevant prior studies available. FINDINGS: Tubes, catheters and devices: An AICD is in place. Lungs: There is peribronchial thickening consistent with reactive airway disease. Liver: Normal. No mass. Gallbladder and bile ducts: Normal. No calcified stones. No ductal dilation. Pancreas: Normal. No ductal dilation. Spleen: Normal. No splenomegaly. Adrenal glands: There is diffuse bilateral nonspecific adrenal enlargement. Kidneys and ureters: There is enlargement of the right renal pelvis with inflammatory change and mild right perinephric stranding. No stone. This may possibly be secondary to infection. Suggest clinical correlation. The left kidney is atrophic. Stomach and bowel: There is extensive diverticulosis throughout the colon. Appendix: A normal appendix is identified. Intraperitoneal space: Unremarkable. No free air. No significant fluid collection. Vasculature: There is extensive atherosclerotic calcification. Lymph nodes: Unremarkable. No enlarged lymph nodes. Urinary bladder: Unremarkable as visualized. Reproductive: Unremarkable as visualized. Bones/joints: There are degenerative changes of the spine. Soft tissues: Unremarkable. IMPRESSION: 1. There is enlargement of the right jennifer al pelvis with inflammatory change and mild right perinephric stranding. No stone. This may possibly be secondary to infection. Suggest clinical correlation. 2. The left kidney is atrophic. 3. Extensive diverticulosis throughout t he colon. 4. There is extensive atherosclerotic ca lcification. THIS DOCUMENT HAS BEEN ELECTRONICALLY SIGNED BY GAL PAGAN MD Performing Organization Address [facility] one Number [facility] RADIOLOGY [address] [place] [address] * POCT glucose, docked (03/08/2020 7:48 AM EST) POC Glucose 129 70 - 140 mg/dL [facility] POC Specimen Whole Blood Performing Organization Address [facility] one Number POINT OF CARE TEST [address] [place] [address] [facility] POC [address] [place] [address] * LDH (03/08/2020 2:30 AM EST) Lactate 219 (H) 122 - 214 U/L [facility] Clin Pathology Specimen Plasma Performing Organization Address [facility] one Number [facility] [address] [place], [place] [address] [facility] [address] [place], [place] [address] Clin Pathology * Haptoglobin (03/08/2020 2:30 AM EST) Haptoglobin 198 30 - 200 mg/dl [facility] Clin Pathology Specimen Plasma Performing Organization Address [facility] one Number [facility] [address] [place], [place] [address] [address] Clin Pathology * Uric acid (03/08/2020 2:30 AM EST) Uric Acid 6.9 (H) 2.4 - 5.7 mg/dl [facility] Clin Pathology Specimen Plasma Performing Organization Address [facility] Ph one Number [facility] [address] [place], [place] [address] [address] 10 Clin Pathology * Phosphorus Level (03/08/2020 2:30 AM EST) Phosphorus 3.5 2.5 - 4.5 mg/dL [facility] Clin Pathology Specimen Plasma Performing Organization Address [facility] Ph one Number [facility] [address] [place], [place] [address] [address] 10 Clin Pathology * Magnesium Level (03/08/2020 2:30 AM EST) Magnesium 2.2 1.6 - 2.4 mg/dL [facility] Clin Pathology Specimen Plasma Performing Organization Address [facility] one Number [facility] [address] [place], [place] [address] [address] 10 Clin Pathology * CBC and Differential (03/08/2020 2:30 AM EST) White Blood 0.5 (LL)Comment: No 4 - 10 10*3/uL [facility] Upsta te Cell significant change since last Med Uni v Clin result called Pathology Red Blood Cell 1.99 (L) 4.1 - 5.3 10*6/uL [facility] Univ Clin Pathology Hemoglobin 6.1 (L) 11.5 - 15.5 g/dL [facility] Clin Pathology Hematocrit 17.4 (LL)Comment: No 36 - 45 % [facility] Upst ate significant change since last Med Univ Clin result called Pathology Mean Cell 87.6 80 - 96 fL [facility] Volume [facility] Univ Clin Pathology Mean Cell 30.9 27 - 33 pg [facility] Hemoglobin Med Univ Clin Pathology Mean Cell Hgb 35.2 32.0 - 36.0 g/dL [facility] Univ Clin Pathology Red Cell Dist 13.9 11.5 - 14.5 % [facility] Width [facility] Univ Clin Pathology Platelet Count 17 (LL)Comment: No significant 150 - 400 10*3/ uL [facility] change since last result [facility] Clin called Pathology Differential Manual Diff [facility] Type Med Univ Clin Pathology Neutrophil 2 % [facility] Univ Clin Pathology Lymphocyte 78 % [facility] Univ Clin Pathology Monocyte 4 % [facility] Univ Clin Pathology Eosinophil 2 % [facility] Univ Clin Pathology Abs Neutrophil 0.01 (L) 1.8 - 7.0 10*3/uL [facility] Univ Clin Pathology Abs Lymphocyte 0.39 (L) 1.2 - 4.0 10*3/uL [facility] Univ Clin Pathology Abs Monocyte 0.02 0 - 0.8 10*3/uL [facility] Univ Clin Pathology Abs Eosinophil 0.01 0 - 0.5 10*3/uL [facility] Univ Clin Pathology Nucleated Red 4 (H) 0 - 0 /100{WBCs} [facility] Blood Cells [facility] Univ Clin Pathology Atypical 4 % [facility] Lymphocytes [facility] Univ Clin Pathology Blast 8Comment: Confirmed [id number] % [facility] Univ Clin Pathology Plasma Cell 2 % [facility] Univ Clin Pathology Abs Atyp Lymph 0.02 (H) 0 10*3/uL [facility] Univ Clin Pathology Abs Blast 0.04 (H) 0 - 0 10*3/uL [facility] Univ Clin Pathology Abs Plasma Cell 0.01 (H) 0 - 0 10*3/uL [facility] Univ Clin Pathology DWARF 2 (H) 0 - 0 % [facility] MEGAKARYOCYTE [facility] Univ Clin Pathology WBC Morphology SEE COMMENTComment: Diff [facility] performed on a atotal 50 celll [facility] Univ Clin count Pathology Specimen EDTA Whole Blood Performing Organization Address City/State/[facility] Ph one Number [facility] [address] [place], [place] [address] PATHOLOGY [facility] Univ [address] [place], [place] [address] Clin Pathology * Comprehensive Metabolic Panel (03/08/2020 2:30 AM EST) Albumin 2.6 (L) 3.5 - 5.2 g/dL [facility] Univ Clin Pathology Bilirubin, 1.0 <1.2 mg/dL [facility] Clin Pathology Calcium 7.9 (L) 8.8 - 10.2 mg/dL [facility] Clin Pathology Chloride 111 (H) 98 - 107 mmol/L [facility] Clin Pathology Creatinine 1.52 (H) 0.50 - 0.90 mg/dL [facility] Clin Pathology Glucose 137 70 - 140 mg/dL [facility] Clin Pathology Alkaline 71 35 - 104 U/L [facility] Univ Clin Pathology Potassium 4.4 3.4 - 5.1 mmol/L [facility] Clin Pathology Total Protein 4.6 (L) 6.4 - 8.3 g/dL [facility] Clin Pathology Sodium 136 136 - 145 mmol/L [facility] Clin Pathology AST/SGO <5 <32 U/L [facility] Pathology Blood Urea 67 (H) 8 - 23 mg/dL [facility] Clin Pathology Osmolality, Nikolay 304 (H) 275 - 300 mosm/kg [facility] Clin Pathology BUN/Cre Ratio 44 [facility] Clin Pathology Bicarbonate 20 (L) 22 - 29 mmol/L [facility] Clin Pathology ALT/SGP <5 <33 U/L [facility] Clin Pathology Anion Gap 5 (L) 8 - 15 mmol/L [facility] Clin Pathology GFR Non 35 (L) >60 mL/min/1.73m2 [facility] 2008 [facility] Clin CDK-EPI Pathology GFR 41 (L) >60 mL/min/1.73m2 [facility] 2008 [facility] CKD-EPI Pathology Specimen Plasma Performing Organization Address City/[facility] Ph one Number [facility] [address] [place], [place] [address] [facility] [address] [place], [place] [address] Clin Pathology * Urinalysis/Urine Culture (03/07/2020 9:50 PM EST) Color Yellow [facility] Clin Pathology Clarity Clear [facility] Clin Pathology Specific 1.014 1.003 - 1.030 [facility] [place] [facility] Clin Pathology PH Urine 5.0 5.0 - 8.0 [facility] Clin Pathology Total Protein Negative Negative mg/dL [facility] Clin Pathology Glucose UA Negative Negative mg/dL [facility] Clin Pathology Ketone Urine Negative Negative mg/dL [facility] Pathology Bilirubin Negative Negative [facility] Pathology Hemoglobin, 1+ (A) Negative [facility] Urine [facility] Pathology Leukocyte Negative Negative Raeann/uL [facility] Esterase [facility] Clin Pathology Nitrite Negative Negative [facility] Pathology WBC 0 0 - 5 /HPF [facility] Pathology RBC <1 0 - 3 /HPF [facility] Pathology Urine Culture Urinalysis does not suggest [facility] Upst ate infection. Culture not [facility] performed Pathology Squam Epithel, 1 (A) None /HPF [facility] Pathology Specimen Urine Performing Organization Address [facility] one Number [facility] [address] [place], [place] [address] [facility] [address] [place], [place] [address] Clin Pathology * Fecal occult blood, Lower GI (Hemoccult-ICT), FIT Testing (03/07/2020 9:48 PM EST) Special Request None [facility] PATHOLOGY Culture/Results NEGATIVE for fecal occult [facility] Upstat e blood by immunochromatography. [facility] This test is not designed to Pathology detect bleeding from the upper GI tract. To detect bleeding from the upper tract, order Fecal Occult Blood, Upper GI (Hemoccult-SENSA). Specimen Stool Performing Organization Address [facility] one Number [facility] CL[facility] [address] [place], [place] [address] [facility] [address] [place], [place] [address] Clin Pathology * POCT glucose, docked (03/07/2020 9:16 PM EST) POC Glucose 148 (H) 70 - 140 mg/dL [facility] POC Specimen Whole Blood Performing Organization Address [facility] one Number POINT OF CARE TEST [address] [place] [address] [facility] POC [address] [place] [address] * CBC and Differential (03/07/2020 8:26 PM EST) White Blood 0.8 (LL)Comment: Called to and 4 - 10 10*3/uL [facility] Cell read back by Katrina Helton RN [facility] Clin 10 [address] [place] 147 Pathology Red Blood Cell 1.95 (L) 4.1 - 5.3 10*6/uL [facility] Clin Pathology Hemoglobin 6.0 (L) 11.5 - 15.5 g/dL [facility] Pathology Hematocrit 17.4 (LL)Comment: Called to 36 - 45 % [facility] and read back by Katrina Helton [facility] Clin RN 10 [address] [place] 147 Pathology Mean Cell 89.6 80 - 96 fL [facility] Volume [facility] Clin Pathology Mean Cell 30.9 27 - 33 pg [facility] Hemoglobin [facility] Clin Pathology Mean Cell Hgb 34.5 32.0 - 36.0 g/dL [facility] Clin Pathology Red Cell Dist 15.0 (H) 11.5 - 14.5 % [facility] Width [facility] Clin Pathology Platelet Count 26 (LL)Comment: Called to and 150 - 400 10*3/u L [facility] read back by Katrina Helton RN [facility] Clin 10 [address] [place] 1478 Pathology Differential Manual Diff [facility] Type [facility] Clin Pathology Neutrophil 1 % [facility] Clin Pathology Lymphocyte 74 % [facility] Clin Pathology Monocyte 3 % [facility] Clin Pathology Eosinophil 3 % [facility] Clin Pathology Abs Neutrophil 0.01 (L) 1.8 - 7.0 10*3/uL [facility] Clin Pathology Abs Lymphocyte 0.59 (L) 1.2 - 4.0 10*3/uL [facility] Clin Pathology Abs Monocyte 0.02 0 - 0.8 10*3/uL [facility] Clin Pathology Abs Eosinophil 0.02 0 - 0.5 10*3/uL [facility] Clin Pathology Nucleated Red 3 (H) 0 - 0 /100{WBCs} [facility] Blood Cells [facility] Clin Pathology Atypical 9 % [facility] Lymphocytes [facility] Clin Pathology Blast 10 % [facility] Clin Pathology Abs Atyp Lymph 0.07 (H) 0 10*3/uL [facility] Clin Pathology Abs Blast 0.08 (H) 0 - 0 10*3/uL [facility] Clin Pathology Anisocytosis 1+ [facility] Clin Pathology Poikilocytosis 1+ [facility] Clin Pathology Specimen EDTA Whole Blood Performing Organization Address [facility] one Number [facility] [address] [place], [place] [address] [facility] [address] [place], [place] [address] Clin Pathology * Transfusion reaction evaluation (03/07/2020 8:25 PM EST) Clerical Check Clerical Data Correct [facility] Clin Pathology Pre-Trans Serum No Hemolysis Seen [facility] Hgb [facility] Univ Clin Pathology Post-Trans No Hemolysis Seen [facility] Serum Hgb Med Univ Clin Pathology Pre-Trans GLENDY NEG [facility] Clin Pathology Post-Trans GLENDY NEG [facility] Clin Pathology Transfusion RX Febrile Non-Hemolytic [facility] Report Reaction. Final report to [facility] Cl in follow. Pathology Pre-Trans O [facility] ABO/Rh Type POS [facility] Clin Pathology Post-Trans O [facility] ABO/Rh Type POS Med [facility] Clin Pathology UNIT NUMBER [id number] [facility] Clin Pathology Unit ABO/Rh O [facility] Type POS Med [facility] Clin Pathology Site Performed at [facility] Clin Pathology Specimen EDTA Whole Blood Performing Organization Address [facility] one Number [facility] CL[facility] [address] [place], [place] [address] [address] Clin Pathology * EKG 12-LEAD - CMAXX REPORT (03/07/2020 7:54 PM EST) Narrative Performed At This result has an attachment that is n ot available. * EKG 12-LEAD - CMAXX REPORT (03/07/2020 7:54 PM EST) Narrative Performed At This result has an attachment that is n ot available. * EKG 12 Lead (03/07/2020 7:54 PM EST) Specimen Narrative Performed At Ventricular Rate: [facility] EKG 87 BPM Atrial Rate: 87 BPM P-R Interval: 128 ms QRS Duration: 118 ms Q-T Interval: 416 ms QTC Calculation(Bazett): 500 ms P Dequincy: 54 degrees R Dequincy: 75 degrees T Dequincy: -16 degrees : SINUS RHYTHM : LOW VOLTAGE QRS : INCOMPLETE RIGHT BUNDLE BRANCH BLOCK : ST AND NONSPECIFIC T WAVE ABNORMALITI ES T WAVE ABNORMALITY. : NONSPECIFIC ANTEROLATERAL LEADS : ABNORMAL ECG : WHEN COMPARED WITH ECG OF 06-APR-2019 09:45, : VENT. RATE HAS INCREASED BY 29 BPM : LOW VOLTAGE QRS IN LIMB LEADS : CHANGING NONSPECIFIC REPOLARIZATION A BNORMALITIES INFERIOR : LEADS - LESS MARKED : QT HAS LENGTHENED : Confirmed by Orlin Castillo ( 63) on 03/08/2020 12:13:02 : PM Procedure Note Interface, Received Via [employer] - 03/08/2020 12:13 PM EST Ventricular Rate: 87 BPM Atrial Rate: 87 BPM P-R Interval: 128 ms QRS Duration: 118 ms Q-T Interval: 416 ms QTC Calculation(Bazett): 500 ms P Dequincy: 54 degrees R Dequincy: 75 degrees T Dequincy: -16 degrees : SINUS RHYTHM : LOW VOLTAGE QRS : INCOMPLETE RIGHT BUNDLE BRANCH BLOCK : ST AND NONSPECIFIC T WAVE ABNORMALITIES T WAVE ABNORMALITY. : NONSPECIFIC ANTEROLATERAL LEADS : ABNORMAL ECG : WHEN COMPARED WITH ECG OF 06-APR-2019 09:45, : VENT. RATE HAS INCREASED BY 29 BPM : LOW VOLTAGE QRS IN LIMB LEADS : CHANGING NONSPECIFIC REPOLARIZATION ABNORMALITIES INFERIOR : LEADS - LESS MARKED : QT HAS LENGTHENED : Confirmed by Orlin Castillo ([id number]) on 03/08/2020 12:13:02 : PM Performing Organization Address [facility] Center/[facility] one Number [facility] EKG * Platelet count (03/07/2020 5:45 PM EST) Platelet Count 28 (LL)Comment: Called to and 150 - 400 10*3/u L [facility] read back by Kecia Soto RN [facility] Clin 10H at 1817 by 2086 Pathology Specimen EDTA Whole Blood Performing Organization Address [facility] one Number [facility] CLINICAL [address] [place], [place] [address] [facility] [address] [place], [place] [address] Clin Pathology * POCT glucose, docked (03/07/2020 4:45 PM EST) POC Glucose 166 (H) 70 - 140 mg/dL [facility] POC Specimen Whole Blood Performing Organization Address [facility]/Zipcode Ph one Number POINT OF CARE TEST [address] [place] [address] [facility] POC [address] [place] [address] * Prepare platelet pheresis 1 Unit (03/07/2020 12:31 PM EST) Site Performed at [facility] Clin Pathology UNIT NUMBER [id number] [facility] Pathology Blood Component Irr Lkrd(PAS) Plt Pheresis, [facility] ate Type 3rd Container [facility] Clin Pathology Unit Division 00 [facility] Clin Pathology STATUS OF UNIT ISSUED, FINAL [facility] Clin Pathology UNIT TAG Patient/Unit blood types [facility] COMMENT differ. [facility] Clin Okay to transfuse. Pathology Store at room temperature. Do not refrigerate or place in cooler. TRANSFUSION OK TO TRANSFUSE [facility] Pathology Specimen EDTA Whole Blood Performing Organization Address City/[facility] one Number [facility] CLINICAL [address] [place], [place] [address] [address] Clin Pathology * POCT glucose, docked (03/07/2020 12:21 PM EST) Pathologist [facility] POC Glucose 184 (H) 70 - 140 mg/dL [facility] POC Specimen Whole Blood Performing Organization Address [facility] one Number POINT OF CARE TEST [address] [place] [address] [facility] POC [address] [place] [address] * Partial Thromboplastin Time (PTT) (03/07/2020 10:47 AM EST) Pathologist [facility] PTT 32.9 24.0 - 33.0 s [facility] Pathology Specimen Plasma Performing Organization Address City/[facility] Ph one Number [facility] [address] [place], [place] [address] [facility] [address] [place], [place] [address] Clin Pathology * Protime-INR (03/07/2020 10:47 AM EST) Pathologist [facility] PT Patient 16.6 (H) 12.5 - 14.9 s [facility] Pathology Int'l 1.32Comment: Routine intensity [facility] U pstate Normalized oral anticoagulation INR is Med Univ Clin Ratio typically 2.0-3.0. Target INR Patholo gy must be clinically individualized. Specimen Plasma Performing Organization Address City/State[facility] Ph one Number [facility] CLINICAL [address] [place], [place] [address] PATHOLOGY [facility] Univ [address] [place], [place] [address] Clin Pathology * CBC and Differential (03/07/2020 10:47 AM EST) White Blood 1.2 (LL)Comment: No 4 - 10 10*3/uL [facility] change since last Med [facility] v Clin result called Pathology Red Blood Cell 2.06 (L) 4.1 - 5.3 10*6/uL [facility] Univ Clin Pathology Hemoglobin 6.3 (L) 11.5 - 15.5 g/dL [facility] Univ Clin Pathology Hematocrit 18.0 (LL)Comment: No 36 - 45 % [facility] Upst ate significant change since last Med Univ Clin result called Pathology Mean Cell 87.6 80 - 96 fL [facility] Volume [facility] Clin Pathology Mean Cell 30.4 27 - 33 pg [facility] Hemoglobin [facility] Clin Pathology Mean Cell Hgb 34.7 32.0 - 36.0 g/dL [facility] Conc [facility] Clin Pathology Red Cell Dist 14.1 11.5 - 14.5 % [facility] Width [facility] Pathology Platelet Count 10 (LL)Comment: No significant 150 - 400 10*3/ uL [facility] change since last result [facility] Clin called Pathology Differential Manual Diff [facility] Type [facility] Clin Pathology Neutrophil 3 % [facility] Clin Pathology Lymphocyte 87 % [facility] Clin Pathology Monocyte 0 % [facility] Clin Pathology Eosinophil 1 % [facility] Clin Pathology Abs Neutrophil 0.04 (L) 1.8 - 7.0 10*3/uL [facility] Univ Clin Pathology Abs Lymphocyte 1.04 (L) 1.2 - 4.0 10*3/uL [facility] Univ Clin Pathology Abs Monocyte 0.00 0 - 0.8 10*3/uL [facility] Univ Clin Pathology Abs Eosinophil 0.01 0 - 0.5 10*3/uL [facility] Clin Pathology Nucleated Red 1 (H) 0 - 0 /100{WBCs} [facility] Blood Cells [facility] Clin Pathology Blast 9Comment: Confirmed by DR. PASCAL % [facility] Clin Pathology Abs Blast 0.11 (H) 0 - 0 10*3/uL [facility] Clin Pathology WBC Morphology SEE COMMENTComment: SLIDE [facility] RE[facility]ED BY DR SANTIAGO PASCAL [facility] Clin 03/07/20 Pathology Specimen EDTA Whole Blood Performing Organization Address City/[facility] Ph one Number [facility] CLINICAL [address] [place], [place] [address] [facility] [address] [place], [place] [address] Clin Pathology * POCT glucose, docked (03/07/2020 8:08 AM EST) POC Glucose 162 (H) 70 - 140 mg/dL [facility] POC Specimen Whole Blood Performing Organization Address [facility] Ph one Number POINT OF CARE TEST [address] [place] [address] [facility] POC [address] [place] [address] * CROSSMATCH, ADDITIONAL (03/07/2020 12:47 AM EST) Crossmatch 03/11/2020,0000 [facility] Expiration [facility] Clin Pathology CPOE Order [id number] [facility] Clin Pathology ABO/RH(D) O POS [facility] Clin Pathology Site Performed at [facility] Clin Pathology UNIT NUMBER [id number] [facility] Clin Pathology Blood Component Irradiated Leukoreduced Red [facility] Upst ate Type Cell [facility] Univ Clin Pathology Unit Division 00 [facility] Clin Pathology STATUS OF UNIT ISSUED, FINAL [facility] Clin Pathology TRANSFUSION OK TO TRANSFUSE [facility] Clin Pathology CROSSMATCH Compatible [facility] Univ Clin Pathology UNIT NUMBER [id number] [facility] Clin Pathology Blood Component Irradiated Leukoreduced Red [facility] Upst ate Type Cell [facility] Clin Pathology Unit Division 00 [facility] Clin Pathology STATUS OF UNIT ISSUED, FINAL [facility] Clin Pathology TRANSFUSION OK TO TRANSFUSE [facility] Clin Pathology CROSSMATCH Compatible [facility] Clin Pathology Specimen EDTA Whole Blood Performing Organization Address [facility] one Number [facility] CL[facility]ICAL [address] [place], [place] [address] [facility] [address] [place], [place] [address] Clin Pathology * Confirmatory Type (03/07/2020 12:47 AM EST) ABO/RH(D) O POS [facility] Clin Pathology Blood Bank Blood Type Confirmed [facility] Clin Pathology Specimen EDTA Whole Blood Performing Organization Address [facility] Ph one Number [facility] CLINICAL [address] [place], [place] [address] [facility] [address] [place], [place] [address] Clin Pathology * Type and Screen (03/07/2020 12:47 AM EST) ABO/RH(D) O POS [facility] Clin Pathology Gel Antibody NEG [facility] Clin Pathology Site Performed at [facility] Clin Pathology Called to KATRINA George ON 10H AT 2220 [facility] Clin Pathology UNIT NUMBER [id number] [facility] Clin Pathology Blood Component Irradiated Leukoreduced Red [facility] Type Cell [facility] Clin Pathology Unit Division 00 [facility] Univ Clin Pathology STATUS OF UNIT ISSUED, FINAL [facility] Clin Pathology TRANSFUSION OK TO TRANSFUSE [facility] Clin Pathology CROSSMATCH Compatible [facility] Clin Pathology UNIT NUMBER [id number] [facility] Clin Pathology Blood Component Irradiated Leukoreduced Red [facility] Upst ate Type Cell Med Univ Clin Pathology Unit Division 00 [facility] Univ Clin Pathology STATUS OF UNIT ISSUED, FINAL [facility] Clin Pathology TRANSFUSION OK TO TRANSFUSE [facility] Clin Pathology CROSSMATCH Compatible [facility] Clin Pathology UNIT NUMBER [id number] [facility] Clin Pathology Blood Component Irradiated LRC, 2nd Container [facility] Clin Pathology Unit Division 00 [facility] Clin Pathology STATUS OF UNIT ISSUED, FINAL [facility] Clin Pathology TRANSFUSION OK TO TRANSFUSE [facility] Med [facility] Clin Pathology CROSSMATCH Compatible [facility] RESULT [facility] Clin Pathology UNIT NUMBER [id number] [facility] Clin Pathology Blood Component Irradiated Leukoreduced Red JEFFREY Upst ate Type Cell [facility] Clin Pathology Unit Division 00 [facility] Clin Pathology STATUS OF UNIT ISSUED, FINAL [facility] Clin Pathology TRANSFUSION OK TO TRANSFUSE [facility] Clin Pathology CROSSMATCH Compatible [facility] Clin Pathology Specimen EDTA Whole Blood Performing Organization Address [facility] one Number [address] [address] Clin Pathology * T4, free (03/07/2020 12:47 AM EST) Free Thyroxine 1.00 0.93 - 1.70 ng/dL [facility] Clin Pathology Specimen Plasma Performing Organization Address [facility] one Number [address] [address] Clin Pathology * T3, free (03/07/2020 12:47 AM EST) Free T3 1.41 (L) 2.00 - 4.40 pg/mL [facility] Clin Pathology Specimen Plasma Performing Organization Address [facility] one Number [address] [address] Clin Pathology * TSH (03/07/2020 12:47 AM EST) TSH 5.700 (H) 0.270 - 4.200 [facility] u[IU]/mL [facility] Clin Pathology Specimen Plasma Performing Organization Address [facility] one Number [address] [address] Clin Pathology * COVID-19 PCR (03/07/2020 12:47 AM EST) Specimen Nasopharyngeal Swab [facility] Description CLINICAL PATHOLOGY SARS CoV-2 2019 nCoV Real-Time RT-PCR: 2019 nCoV Real-Eduardo e [facility] NOT DETECTED RT-PCR: NOT DETECTED [facility] Clin Pathology Assay performed Test performed using [employer] JEFFREY tiwari COVID-19 MDx Assay. This test [facility] Clin is only for use under Food and Pathology Drug Administration's Emergency Use Authorization. Additional information is available on the following FDA websites for healthcare providers and patients. https://www.fda.gov/media/1992 20/download, https://www.fda.gov/igobubble/0981 21/download First COVID-19 NO [facility] Test? CLINICAL PATHOLOGY Employed in NO [facility] CLINICAL setting? PATHOLOGY Symptomatic for NO [facility] COVID-19 as CLINICAL defined by CDC? PATHOLOGY Date of symptom UNKNOWN [facility] onset? CLINICAL ([id number]) PATHOLOGY Hospitalized NO [facility] for COVID-19? CLINICAL PATHOLOGY Admitted to ICU UNKNOWN [facility] for COVID-19? CLINICAL PATHOLOGY Resident in a [facility] CLINICAL (group) care PATHOLOGY setting? ? NO [facility] CLINICAL PATHOLOGY Specimen Nasopharyngeal Swab Performing Organization Address City/State/[facility] Ph one Number [facility] CLINICAL [address] [place], [place] [address] [facility] [address] [place], [place] [address] Clin Pathology * Comprehensive Metabolic Panel (03/07/2020 12:47 AM EST) Albumin 2.9 (L) 3.5 - 5.2 g/dL [facility] Clin Pathology Bilirubin, 0.6 <1.2 mg/dL [facility] Total [facility] Clin Pathology Calcium 8.1 (L) 8.8 - 10.2 mg/dL [facility] Clin Pathology Chloride 107 98 - 107 mmol/L [facility] Clin Pathology Creatinine 1.51 (H) 0.50 - 0.90 mg/dL [facility] Clin Pathology Glucose 213 (H) 70 - 140 mg/dL [facility] Clin Pathology Alkaline 80 35 - 104 U/L [facility] Phosphatase [facility] Clin Pathology Potassium 4.4 3.4 - 5.1 mmol/L [facility] Clin Pathology Total Protein 5.0 (L) 6.4 - 8.3 g/dL [facility] Clin Pathology Sodium 137 136 - 145 mmol/L [facility] Clin Pathology AST/SGO 6 <32 U/L [facility] Clin Pathology Blood Urea 82 (H) 8 - 23 mg/dL [facility] Clin Pathology Osmolality, Nikolay 314 (H) 275 - 300 mosm/kg [facility] Clin Pathology BUN/Cre Ratio 54 [facility] Clin Pathology Bicarbonate 20 (L) 22 - 29 mmol/L [facility] Clin Pathology ALT/SGP 8 <33 U/L [facility] Clin Pathology Anion Gap 10 8 - 15 mmol/L [facility] Clin Pathology GFR Non 35 (L) >60 mL/min/1.73m2 [facility] 2008 [facility] Clin CDK-EPI Pathology GFR 41 (L) >60 mL/min/1.73m2 [facility] 2008 [facility] CKD-EPI Pathology Specimen Plasma Performing Organization Address City/State/[facility] Ph one Number [facility] CLINICAL [address] [place], [place] [address] [facility] [address] [place], [place] [address] Clin Pathology * CBC (03/07/2020 12:47 AM EST) White Blood 1.3 (LL)Comment: Called to and 4 - 10 10*3/uL [facility] Cell read back by Neil Gudino RN [facility] iv Clin on at 0136 by 1521 Pathology Red Blood Cell 1.92 (L) 4.1 - 5.3 10*6/uL [facility] Clin Pathology Hemoglobin 5.9 (L) 11.5 - 15.5 g/dL [facility] Clin Pathology Hematocrit 17.0 (LL)Comment: Called to 36 - 45 % [facility] and read back by Neil [facility] Clin Terese JIMÉNEZ on at 0136 Pathology by 1521 Mean Cell 88.4 80 - 96 fL [facility] Volume [facility] Clin Pathology Mean Cell 30.8 27 - [address] [facility] Univ Clin Pathology Mean Cell Hgb 34.9 32.0 - 36.0 g/dL [facility] Clin Pathology Red Cell Dist 13.6 11.5 - 14.5 % [facility] Width [facility] Clin Pathology Platelet Count 12 (LL) 150 - 400 10*3/uL [facility] Comment: [facility] Clin Called to and read back by Neil Gudino RN on 10 at 0136 by 1521 Confirmed Specimen EDTA Whole Blood Performing Organization Address [facility] Ph one Number [facility] CLINICAL [address] [place], [place] [address] [facility] [address] [place], [place] [address] Clin Pathology * POCT glucose, docked (03/07/2020 12:16 AM EST) POC Glucose 198 (H) 70 - 140 mg/dL [facility] POC Specimen Whole Blood Performing Organization Address [facility] Ph one Number POINT OF CARE TEST [address] [place] [address] [facility] POC [address] [place] [address] * XR Chest Frontal Only (03/07/2020 12:10 AM EST) Specimen Narrative Performed At [facility] RADIOLOGY PROCEDURE INFORMATION: Exam: XR Chest, 1 View Exam date and time: 03/07/2020 1:01 AM Age: 65 years old Clinical indication: Other: Chemotherap y initiation TECHNIQUE: Imaging protocol: XR of the chest Views: 1 view. COMPARISON: No relevant prior studies available. FINDINGS: Tubes, catheters and devices: Right por t catheter with the tip in the SVC. AICD/pacemaker on left. Lungs: Hyperinflation. No consolidation . Pleural space: No pleural effusion. No pneumothorax. Heart/Mediastinum: No cardiomegaly. Calcified tortuous ao rta. Bones/joints: Unremarkable IMPRESSION: No acute lung pathology. THIS DOCUMENT HAS BEEN ELECTRONICALLY S IGNED BY ADELAIDA PEÑA MD Procedure Note Interface, Received Via [employer] [facility] - 03/07/2020 1:28 AM EST PROCEDURE INFORMATION: Exam: XR Chest, 1 View Exam date and time: 03/07/2020 1:01 AM Age: 65 years old Clinical indication: Other: Chemotherapy initiation TECHNIQUE: Imaging protocol: XR of the chest Views: 1 view. COMPARISON: No relevant prior studies available. FINDINGS: Tubes, catheters and devices: Right port catheter with the tip in the SVC. AICD/pacemaker on left. Lungs: Hyperinflation. No consolidation. Pleural space: No pleural effusion. No pneumothorax. Heart/Mediastinum: No cardiomegaly. Calcified tortuous aorta. Bones/joints: Unremarkable IMPRESSION: No acute lung pathology. THIS DOCUMENT HAS BEEN ELECTRONICALLY SIGNED BY ADELAIDA PEÑA MD Performing Organization Address [facility] one Number [facility] RADIOLOGY [address] [place] [address] * Cytogenetics Oncology, Blood and Bone Marrow (03/07/2020 12:00 AM EST) BONE MARROW Cytogenetics Report [facility] Name: PATRICIA COTTON V. 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 Please correlate with the concurrent Hematopathology report [id number]. Electronically Signed By Yokasta Curran MD, PhD Attending Pathologist 03/14/2020 11:07:08 Specimen Performing Organization Address [facility] one Number [facility] CLINICAL [address] [place], [place] [address] PATHOLOGY * Hematopathology (03/07/2020 12:00 AM EST) Pathologist [facility] HEMATOPATHOLOGY Hematopathology Report [facility] Name: PATRICIA COTTON V. CLINICAL PATHOLOGY Collection Date: 03/07/2020 00:00 Received Date: 03/07/2020 13:38 Physician(s): LISA PALUMBO MD GILLIGAN, DIANA M, MD Specimen(s) Received A: Bone Marrow Biopsy, RPIC; Received 1 biopsy and 10 touch preps B: Blood; Received 4 PB smears C: Core Biopsy, Flow Cytometry; Received bone marrow core biopsy in [facility] Clinical History History of CMML, concern for conversion to AML. Pancytopenia, increasing peripheral blast count. TEST REQUESTED/PERFORMED: Bone marrow and flow cytometry analysis Diagnosis Markedly hypocellular bone marrow with marked pancytopenia with 9% circulating blasts. There is no evidence of increased blasts in the bone marrow. There is no evidence of acute leukemia, but residual disease cannot be completely ruled out. Des Bravo M.D.;Resident Pathologist Electronically Signed By YONI PASCAL M.D. Attending Pathologist 03/09/2020 16:57:20 The attending pathologist named above attests that he/she has personally reviewed the relevant preparation(s) for the specimen(s) and rendered the final diagnosis. Gross Description The specimen is received in formalin labeled with the patient's name "Patricia Cotton" and "R BX". It consists of two red cylindrical fragments of bone measuring 0.5 x 0.2 cm. Totally submitted in one cassette following decalcification. ND/pmw Procedures Bone Marrow Date Ordered:03/07/2020 Status: Signed Out 03/08/2020 Interpretation PERIPHERAL BLOOD: CBC performed at [facility] #[id number] (03/07/20) WBC 1.2 K/uL RBC *2.06 M/uL Hgb *6.3 g/dL Hct 18.0 % MCV 87.6 fL MCH 30.4 pg MCHC 34.7 g/dL RDW 14.1 % MPV *6.9 fL Platelets 10 K/uL The erythrocytes appear severely decreased in number and are overall normochromic and normocytic. Anisocytosis is mild. Poikilocytosis is mild. Polychromasia is not increased. Nucleated red cells are seen (1/100 WBC). Rouleau formation is not increased. The platelets appear decreased in number. The leukocytes appear decreased in number. Differential Count (100 cells): 9.0 % Blasts 3.0 % Neutrophils 1.0 % Eosinophils 87.0 % Lymphocytes -------- 100.0 % No bone marrow aspirate smears are received. Touch imprint is reviewed for the differential count and consists mostly of peripheral blood. Cellularity cannot be assessed on touch imprint. MARROW BIOPSY: Biopsy sections show markedly hypocellular marrow with decreased M/E ratio. Megakaryocytes are markedly decreased. The bone marrow is diffusely replaced with fibrosis and serous atrophy with entrapped erythroid precursors and rare myeloid precursors. Many hemosiderin laden macrophages are scattered throughout the bone marrow. Mostly lymphocytes and plasma cells are noted. No clusters of blasts are seen. Bony trabeculae are unremarkable. Touch imprint slides show markedly diluted specimen consisting of mostly peripheral blood. A cytospin is received and shows poorly preserved specimen with a few scattered variably sized lymphoid cells with clumped chromatin and scant blue cytoplasm and rare myeloid and erythroid precursors. SPECIAL STAINS: CD34 immunostain does not show increase in blasts. MPO shows only very rare cells and reticulin stain does not show increased fibrosis. MORPHOLOGY SUMMARY: Hypocellular marrow with unevaluable blasts, unevaluable M/E ratio, and absent megakaryocytes. Peripheral Blood: Leukopenia, absolute lymphopenia, absolute neutropenia, severe normocytic anemia, and severe thrombocytopenia. Procedure Electronically Signed By: YONI PASCAL M.D. 03/09/2020 Flow Cytometry Date Ordered:03/07/2020 Status: Signed Out 03/08/2020 Interpretation Acute Panel for [place] [id number] The following markers were assayed: CD45 (gate), CD1a, CD2, CD3, CD4, CD5, CD7, CD8, CD10, CD11b, CD13, CD14, CD15, CD19, CD20, CD25,CD33, CD34, CD38, CD41, CD56, CD57, CD64, CD71, CD117, CD123, Cooter, Lambda, and HLA-DR. Events: [id number] NOTE: Routinely a minimum of 50,000 events are collected in each panel tube. Due to sample cellularity and/or processing this number was not achievable for this sample. Viability: 72% NOTE: Results are based on a sample that was partially compromised due to the presence of greater than 20% non-viable leukocytes. Flow Cytometry Differential (CD45/SSC) Lymphocyte [place]: 23% CD45 dim [place]: 3% Monocyte [place]: 1% Granulocyte [place]: 15% Nucleated/Erythroid [place]: 37% The lymphocyte gate shows B-Cells (CD19): 3% Cooter/Lambda Ratio: 2.3 T-Cells (CD3): 95% CD4/CD8 Ratio: 0.6 NK Cells: 2% Results (expressed as % of LYMPHOCYTE gate): B-Cell Markers: Cooter = 1.9, Lambda = 0.9, CD19 = 3, CD20 = 3, CD19/10 = 1, CD19/CD5 = 2, CD38/CD20 = 1 Light chain as % of B-Cells: CD19/Cooter = 56, CD19/Lambda = 25 T-Cell Markers: CD2 = 96, CD3 = 95, CD3/CD4 = 34, CD5 = 88, CD7 = 87, CD3/CD8 = 57, CD3/57 = 30 NK Cell Markers: CD56 = 9, CD57 = 33 Other Markers: CD10 = 5, CD38 = 42 Results (expressed as % of BLAST gate): B-Cell Markers: Cooter = 1.7, Lambda = 0.4, CD19 = 4, CD20 = 4, CD10 = 21, CD19/10 = 0 T-Cell Markers: CD1a = 1, CD2 = 3, CD3 = 8, CD4 = 5, CD5 = 4, CD7 = 7, CD8 = 4, CD3/CD4 = 1, CD3/CD8 = 2 Myeloid Markers: CD11b = 33, CD13 = 39, CD14 = 4, CD15 = 14, CD33 = 30, CD41 = 13, CD64 = 58, CD71 = 13, CD117 = 6 Other Markers: CD25 = 3, CD34 = 15, CD38 = 47, CD56 = 4, CD57 = 4, CD123 = 3, HLA-DR = 50 Results-Comments Lymphocytes consist predominantly of T cells with normal expression of elliott T-cell markers and decreased CD4/CD8 ratio, normal proportions of NK cells, slightly increased cytotoxic T cells, and polyclonal B cells. CD34+ blasts comprise fewer than 1% of cells studied. Blasts, monocytes, and granulocytes show no definitive immunophenotypic aberrancies. Procedure Electronically Signed By: YONI PASCAL M.D. 03/08/2020 This report may include one or more immunohistochemical stain/fluorochrome conjugated monoclonal antibody results that use analyte specific reagents. All positive and negative controls have been reviewed by the attending pathologist and are satisfactory. The tests were developed and their performance characteristics determined by [facility] Pathology department. They have not been cleared or approved by the US Food and Drug Administration. The FDA has determined that such clearance or approval is not necessary. 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 - Primary Chronic myeloid leukemia, without menti on of having achieved remission documented in this encounter Administered Medications Action Date Dose Rate Site Medication Order MAR Action 03/16/2020 12:45 PM EST 650 mg acetaminophen (TYLENOL) tablet 650 mg Given 650 mg, Oral, Every 6 hours PRN, Mild Pain (Pain Scale Score 1-3), Headaches, Starting Thu03/07/20 at 1158, For 30 days, Maximum daily dose of acetaminophen is 3,000 mg from all sources in 24 hours., 650 mg Given 03/14/2020 12:34 PM EST 650 mg Given 03/13/2020 12:41 AM EST 03/18/2020 4:29 AM EST 650 mg acetaminophen (TYLENOL) tablet 650 mg Given 650 mg, Oral, Daily PRN, transfusion, Starting Thu03/08/20 at 0839, For 30 days, Maximum daily dose of acetaminophen is 3000 mg from all sources in 24 hours., 650 mg Given 03/17/2020 8:52 AM EST 650 mg Given 03/14/2020 7:05 PM EST 03/18/2020 3:39 PM EST 400 mg acyclovir (ZOVIRAX) capsule 400 mg Given 400 mg, Oral, Three Times Daily Standard, First dose on Thu03/07/20 at 0900, For 54 doses 400 mg Given 03/18/2020 7:59 AM EST 400 mg Given 03/17/2020 8:11 PM EST 03/18/2020 7:59 AM EST 100 mg allopurinol (ZYLOPRIM) tablet 100 mg Given 100 mg, Oral, Daily Standard, First dose on Thu03/08/20 at 0900, For 30 day s 100 mg Given 03/17/2020 8:52 AM EST 100 mg Given 03/16/2020 8:47 AM EST 03/18/2020 8:03 AM EST 5 mg amlodipine (NORVASC) tablet 5 mg Given 5 mg, Oral, Daily Standard, First dose on Thu03/07/20 at 0900, For 30 days, Check vital signs before administering, 5 mg Given 03/17/2020 8:52 AM EST 5 mg Given 03/16/2020 8:47 AM EST dextrose 50 % IV solution 25 mL 25 mL, Intravenous, PRN, Other, blood glucose <55, Starting Thu03/06/20 at 2254, For 30 days, Not for midline administration., 03/13/2020 8:39 PM EST 100 mg docusate sodium (COLACE) capsule 100 mg Given 100 mg, Oral, 2 Times Daily, First dose on Thu03/08/20 at 2100, For 30 days 100 mg Given 03/09/2020 9:10 PM EST 100 mg Given 03/08/2020 9:26 PM EST 03/18/2020 8:14 AM EST 50 mg eltrombopag (PROMACTA) tablet 50 mg Given 50 mg, Oral, Daily Standard, First dos e on Thu03/09/20 at 1130, For 12 doses 50 mg Given 03/17/2020 8:57 AM EST 50 mg Given 03/16/2020 8:56 AM EST 03/18/2020 8:00 AM EST 200 mg fluconazole (DIFLUCAN) tablet 200 mg Given 200 mg, Oral, Daily Standard, First dose on Thu03/07/20 at 0900, For 18 doses 200 mg Given 03/17/2020 8:52 AM EST 200 mg Given 03/16/2020 8:48 AM EST glucagon (human recombinant) (GLUCAGEN) injection 1 mg 1 mg, Intramuscular, PRN, for glucose <55 without IV access, Starting Thu03/06/20 at 2254, For 30 days glucose (GLUTOSE) 40 % oral gel 15 g 15 g, Oral, PRN, Low blood sugar, for gluose 55-69 mg/dl and able to take PO, Starting Thu03/06/20 at 2254, For 30 days 03/18/2020 8:02 AM EST 500 Units heparin flush (porcine) 100 UNIT/ML Given by IV injection 500 Units push 500 Units, Intracatheter, PRN, Line Care, Starting 03/10/20 at 1113, For 30 days, Flush line after NS prior to port deaccess., 500 Units Given 03/16/2020 9:01 AM EST heparin flush (porcine) 100 UNIT/ML injection 500 Units 500 Units, Intracatheter, PRN, Line Care, Starting Mitchell 03/11/20 at 0915, For 30 days, Flush line after NS prior to port deaccess., heparin lock flush 10 UNIT/ML injection 50 Units 50 Units, Intracatheter, PRN, Line Care , Starting 03/10/20 at 1113, For 30 days, Flush line after NS for central line patency and/or prn to obtain blood return., heparin lock flush 10 UNIT/ML injection 50 Units 50 Units, Intracatheter, PRN, Line Care , Starting Mitchell 03/11/20 at 0915, For 30 days, Flush line after NS for central line patency and/or prn to obtain blood return., 03/18/2020 8:14 AM EST 10 Units insulin glargine (LANTUS) injection 10 Given Units 10 Units, Subcutaneous, Daily Standard , First dose on Ira 03/15/20 at 1430, For 30 days, For blood glucose less than 70 mg/dL: follow hypoglycemia protocol ( ) and notify provider. For blood glucose values between 70 mg/dL and 100 mg/dL at bedtime: provide snack (15 grams of carbohydrates) with some protein. Administer FULL DOSE of insulin glargine (LANTUS) after snack. Record snack in I&O's. For blood glucose more than 400 mg/dL: notify provider, 10 Units Given 03/17/2020 8:51 AM EST 10 Units Given 03/16/2020 8:41 AM EST 03/16/2020 5:26 PM EST 2 Units insulin lispro (HumaLOG) injection LOW Given DOSE EATING INSULIN patients 1-8 Units 1-8 Units, Subcutaneous, Three Times Daily-With Meals, First dose on Thu03/07/20 at 0800, For 30 days, Nursing MUST open the 'SQ Insulin Dosing Charts ' Sidebar Report, or, the Patient Summary or Summary Report within the ED. , 1 Units Given 03/16/2020 12:45 PM EST 3 Units Given 03/16/2020 8:41 AM EST 03/18/2020 8:00 AM EST 60 mg isosorbide mononitrate (IMDUR) 24 hr Given tablet 60 mg 60 mg, Oral, Daily Standard, First dos e on Thu03/07/20 at 0900, For 30 days 60 mg Given 03/17/2020 8:52 AM EST 60 mg Given 03/16/2020 8:45 AM EST 03/18/2020 8:00 AM EST 500 mg levoFLOXacin (LEVAQUIN) tablet 500 mg Given 500 mg, Oral, Every 48 hours, First dose (after last reorder) on Sat 1 at 0915, For 5 days, Administer 2 hours before or 4 hours after oral magnesium, calcium, iron, and sucralfate., Discouraged Uses: Treatment of UTI, 500 mg Given 03/17/2020 9:05 AM EST 03/18/2020 8:00 AM EST 1 patch Other lidocaine (LIDODERM) 5 % patch 1 patch Patch 1 patch, Transdermal, Daily Standard, Applied First dose (after last modification) on Mitchell 03/11/20 at 1245, For 8 doses, Apply to back 12 hours on - 12 hours off, 1 patch Other Patch Applied 03/17/2020 8:51 AM EST 1 patch Other Patch Applied 03/16/2020 8:49 AM EST 03/09/2020 12:04 PM EST 5 mLs maalox/lidocaine/diphenhydrAMINE Given (RADIATION MIXTURE) 1:1:1 oral suspension 5 mL 5 mL, Swish & Spit, Before Meals & Bedtime-PRN, mucositis, Starting Ira 03/08/20 at 0838, For 30 days NaCl infusion 0.9 % Intravenous, PRN, Line care, Starting 03/10/20 at 1113, For 30 days, Flush with 30mL after each medication given intravenously., NaCl infusion 0.9 % Intravenous, PRN, Line care, Starting Mitchell 03/11/20 at 0915, For 30 days, Flush with 30mL after each medication given intravenously., 03/18/2020 7:59 AM EST 40 mg pantoprazole (PROTONIX) EC tablet 40 mg Given 40 mg, Oral, Daily Standard, First dos e on Thu03/07/20 at 0000, For 30 days, Do not crush or chew, 40 mg Given 03/17/2020 8:52 AM EST 40 mg Given 03/16/2020 8:46 AM EST 03/08/2020 10:53 AM EST 17 g polyethylene glycol (MIRALAX) packet 17 Given g 17 g, Oral, Daily Standard, First dose on Thu03/08/20 at 1045, For 30 days, Mi x in 8 ounces of water, juice or milk. Avoid use in patients who require thickened liquids due to potential increased risk for aspiration., 03/17/2020 8:11 PM EST 40 mg pravastatin (PRAVACHOL) tablet 40 mg Given 40 mg, Oral, Every evening, First dose on Thu03/07/20 at 2100, For 30 days 40 mg Given 03/16/2020 8:54 PM EST 40 mg Given 03/15/2020 9:56 PM EST 03/14/2020 3:59 AM EST 5 mg prochlorperazine (COMPAZINE) injection 5 New Bag mg 5 mg, Intravenous, Every 6 hours PRN, Nausea, Vomiting, Starting 03/06/20 at 2353, For 30 days, For IV use: Prepare in 50 mL NS and infuse over 15 minutes., 03/08/2020 9:24 PM EST 2 tablets senna tablet 2 tablet Given 2 tablet, Oral, Nightly, First dose on Thu03/07/20 at 2200, For 30 days 2 tablets Given 03/07/2020 9:20 PM EST 03/18/2020 8:03 AM EST 10 mLs sodium chloride (preservative free) 0.9 Given by IV % flush 10 mL push 10 mL, Intravenous, PRN, Line Care, Starting 03/10/20 at 1113, For 30 days, Flush via port/central line/peripheral before and after each use., sodium chloride (preservative free) 0.9 % flush 10 mL 10 mL, Intravenous, PRN, Line Care, Starting Mitchell 03/11/20 at 0915, For 30 days, Flush via port/central line/peripheral before and after each use., 03/18/2020 8:00 AM EST 100 mg spironolactone (ALDACTONE) tablet 100 mg Given 100 mg, Oral, Daily Standard, First dose on Thu03/07/20 at 0900, For 30 day s 100 mg Given 03/17/2020 8:52 AM EST 100 mg Given 03/16/2020 8:46 AM EST 03/18/2020 8:35 AM EST 2 puffs tiotropium (SPIRIVA RESPIMAT) inhalation Given spray 2 puff 2 puff, Inhalation, Daily Standard, First dose on Thu03/07/20 at 0900, For 30 days 2 puffs Given 03/17/2020 9:27 AM EST 2 puffs Given 03/16/2020 9:36 AM EST Action Date Dose Rate Site Medication Order MAR Action 03/07/2020 8:48 PM EST 650 mg acetaminophen (TYLENOL) tablet 650 mg Given 650 mg, Oral, Once, Thu03/07/20 at 2030 , For 1 dose, Maximum daily dose of acetaminophen is 3,000 mg from all sources in 24 hours., 03/08/2020 5:43 AM EST 650 mg acetaminophen (TYLENOL) tablet 650 mg Given 650 mg, Oral, Once, [facility] 03/08/20 at 0530 , For 1 dose, Maximum daily dose of acetaminophen is 3,000 mg from all sources in 24 hours., 03/10/2020 6:16 PM EST 650 mg acetaminophen (TYLENOL) tablet 650 mg Given 650 mg, Oral, Once, [facility] 03/10/20 at 1815 , For 1 dose, Maximum daily dose of acetaminophen is 3,000 mg from all sources in 24 hours., 03/18/2020 1:35 PM EST 650 mg acetaminophen (TYLENOL) tablet 650 mg Given 650 mg, Oral, Once, [place] 03/18/20 at 1300 , For 1 dose, Maximum daily dose of acetaminophen is 3,000 mg from all sources in 24 hours., 03/11/2020 9:36 AM EST 2.5 mg albuterol (PROVENTIL) nebulizer solution Given 2.5 mg 2.5 mg, Nebulization, Every 8 hours, First dose on Thu03/07/20 at 0815, For 4 days, For Adults Q8 Hours is Hospital Standard, all orders will be changed to this unless CRISS is selected 'Yes' below . , 2.5 mg Given 03/11/2020 1:15 AM EST 2.5 mg Given 03/10/2020 4:32 PM EST 03/18/2020 12:18 AM EST 2.5 mg albuterol (PROVENTIL) nebulizer solution Given 2.5 mg 2.5 mg, Nebulization, Every 8 hours, First dose (after last reorder) on Thu03/11/20 at 1700, For 20 doses, For Adults Q8 Hours is Hospital Standard, all orders will be changed to this unless CRISS is selected 'Yes' below. , 2.5 mg Given 03/17/2020 4:24 PM EST 2.5 mg Given 03/17/2020 9:27 AM EST 03/10/2020 2:32 PM EST 145 mg 200 mL/hr azaCITIDine (VIDAZA) 145 mg in sodium New Bag chloride 0.9 % 100 mL IVPB 145 mg (rounded from 145.5 mg = 75 mg/m 2 1.94 m2 Treatment plan recorded BSA), Intravenous, Administer over 30 Minutes , Once, 03/10/20 at 1430, For 1 dose, Infusion must be completed within 1 hr of vial reconstitution., 03/11/2020 1:49 PM EST 145 mg 200 mL/hr azaCITIDine (VIDAZA) 145 mg in sodium New Bag chloride 0.9 % 100 mL IVPB 145 mg (rounded from 145.5 mg = 75 mg/m 2 1.94 m2 Treatment plan recorded BSA), Intravenous, Administer over 30 Minutes , Once, 03/11/20 at 1330, For 1 dose, Infusion must be completed within 1 hr of vial reconstitution., 03/11/2020 9:18 AM EST 12.5 mg carvedilol (COREG) tablet 12.5 mg Given 12.5 mg, Oral, 2 Times Daily, First dos e on Thu03/07/20 at 0900, For 30 days 12.5 mg Given 03/10/2020 9:06 PM EST 12.5 mg Given 03/10/2020 8:40 AM EST 03/17/2020 8:11 PM EST 12.5 mg carvedilol (COREG) tablet 12.5 mg Given 12.5 mg, Oral, 2 Times Daily, First dos e (after last modification) on Sun 1 at 2100, For 51 doses 12.5 mg Given 03/17/2020 8:51 AM EST 12.5 mg Given 03/16/2020 8:56 PM EST 03/18/2020 10:45 AM EST 6.25 mg carvedilol (COREG) tablet 6.25 mg Given 6.25 mg, Oral, Once, 03/18/20 at 1045, For 1 dose 03/07/2020 9:43 PM EST 25 mg diphenhydrAMINE (BENADRYL) capsule 25 mg Given 25 mg, Oral, Once, 03/07/20 at 2145, For 1 dose 03/11/2020 2:16 PM EST 25 mg diphenhydrAMINE (BENADRYL) capsule 25 mg Given 25 mg, Oral, Daily PRN, transfusion, Starting Ira 03/08/20 at 0840, For 30 days 25 mg Given 03/11/2020 2:33 AM EST 25 mg Given 03/10/2020 10:07 AM EST 03/18/2020 4:29 AM EST 25 mg diphenhydrAMINE (BENADRYL) capsule 25 mg Given 25 mg, Oral, Every 6 hours PRN, transfusion, Starting 03/11/20 at 1830, For 6 days 14 hours 25 mg Given 03/17/2020 8:52 AM EST 25 mg Given 03/14/2020 12:34 PM EST 03/18/2020 1:36 PM EST 25 mg diphenhydrAMINE (BENADRYL) capsule 25 mg Given 25 mg, Oral, Once, [place] 03/18/20 at 1300, For 1 dose 03/13/2020 8:51 AM EST 40 mg furosemide (LASIX) tablet 40 mg Given 40 mg, Oral, Daily Standard, First dos e on 03/11/20 at 0930, For 30 days 40 mg Given 03/12/2020 8:36 AM EST 40 mg Given 03/11/2020 12:12 PM EST 03/08/2020 9:27 PM EST 20 Units Abdomina l Tissue insulin glargine (LANTUS) injection 20 Given Units 20 Units, Subcutaneous, Nightly, First dose on Thu03/06/20 at 2300, For 30 days, For blood glucose less than 70 mg/dL: follow hypoglycemia protocol (CM H-) and notify provider. For blood glucose values between 70 mg/dL and 100 mg/dL at bedtime: provide snack (15 grams of carbohydrates) with some protein. Administer FULL DOSE of insulin glargine (LANTUS) after snack. Record snack in I&O's. For blood glucose more than 400 mg/dL: notify provider, 20 Units Given 03/07/2020 9:20 PM EST 20 Units Given 03/07/2020 12:17 AM EST 03/10/2020 8:39 AM EST 250 mg levoFLOXacin (LEVAQUIN) tablet 250 mg Given 250 mg, Oral, Daily Standard, First dose on Thu03/08/20 at 0900, For 10 days, Administer 2 hours before or 4 hours after oral magnesium, calcium, iron, and sucralfate., Discouraged Uses : Treatment of UTI, 250 mg Given 03/09/2020 9:22 AM EST 250 mg Given 03/08/2020 8:52 AM EST 03/07/2020 9:13 AM EST 500 mg levoFLOXacin (LEVAQUIN) tablet 500 mg Given 500 mg, Oral, Daily Standard, First dose (after last reorder) on Thu 1 at 0900, For 1 day, Administer 2 hours before or 4 hours after oral magnesium, calcium, iron, and sucralfate., Discouraged Uses: Treatment of UTI, 03/16/2020 8:56 AM EST 500 mg levoFLOXacin (LEVAQUIN) tablet 500 mg Given 500 mg, Oral, Daily Standard, First dose on Thu03/16/20 at 0900, For 10 days, Administer 2 hours before or 4 hours after oral magnesium, calcium, iron, and sucralfate., Discouraged Uses : Treatment of UTI, 03/07/2020 12:33 PM EST 10 mLs lidocaine (XYLOCAINE) 2 % injection 10 Given by mL Other 10 mL, Infiltration, Once, Thu03/07/20 at 1145, For 1 dose 03/12/2020 3:42 AM EST 100 mL/hr NaCl infusion 0.9 % New Bag at 100 mL/hr, Intravenous, Continuous, Starting Thu03/06/20 at 2345, For 135 hours 100 mL/hr Rate/Dose Verify 03/11/2020 6:00 PM EST 100 mL/hr Rate/Dose Verify 03/11/2020 5:00 PM EST 03/15/2020 4:00 PM EST 10 mL/hr NaCl infusion 0.9 % Rate/Dose at 100 mL/hr, Intravenous, Continuous, Verify Starting Thu03/14/20 at 0845, For 30 days 100 mL/hr Rate/Dose Verify 03/15/2020 3:00 PM EST 100 mL/hr Rate/Dose Verify 03/15/2020 2:00 PM EST 03/10/2020 1:48 PM EST 8 mg ondansetron (ZOFRAN) tablet 8 mg Given 8 mg, Oral, Once, 03/10/20 at 1400, For 1 dose, Give prior to chemotherapy. , 03/11/2020 1:11 PM EST 8 mg ondansetron (ZOFRAN) tablet 8 mg Given 8 mg, Oral, Once, 03/11/20 at 1300, For 1 dose, Give prior to chemotherapy. , 03/11/2020 4:02 PM EST 5 mg phytonadione (VITAMIN K1) 1 mg/mL oral Given solution 5 mg 5 mg, Oral, Once, 03/11/20 at 1430, For 1 dose 03/10/2020 7:04 PM EST 3.375 g 12.5 mL/hr piperacillin-tazobactam (ZOSYN) IVPB New Bag 3.375 g (premix) 3.375 g, Intravenous, Administer over 4 Hours, Every 8 hours, First dose on 03/10/20 at 1815, For 3 days, This specific formulation of piperacillin-tazobactam is compatible with Lactated Ringers., 03/16/2020 6:08 AM EST 3.375 g 100 mL/hr piperacillin-tazobactam (ZOSYN) IVPB New Bag 3.375 g (premix) 3.375 g, Intravenous, Administer over 0.5 Hours, Every 6 hours, First dose (after last reorder) on 03/11/20 at 0130, For 26 doses, This specific formulation of piperacillin-tazobactam is compatible with Lactated Ringers., 100 mL/hr Rate/Dose Verify 03/16/2020 1:00 AM EST 100 mL/hr Rate/Dose Verify 03/16/2020 12:29 AM EST 03/17/2020 1:58 AM EST 3.375 g 12.5 mL/hr piperacillin-tazobactam (ZOSYN) IVPB New Bag 3.375 g (premix) 3.375 g, Intravenous, Administer over 4 Hours, Every 8 hours, First dose on 03/17/20 at 0115, For 7 days, This specific formulation of piperacillin-tazobactam is compatible with Lactated Ringers., 03/14/2020 9:24 AM EST 40 mEq potassium chloride (K-DUR) dissolvable Given tablet 40 mEq 40 mEq, Oral, 2 Times Daily, First dose on 03/14/20 at 0315, For 1 day, May be dissolved in water for patients with a G-Tube or unable to swallow. If concern for clogging G-Tube, may contac t Pharmacy to switch formulation to a powder packet., 40 mEq Given 03/14/2020 3:52 AM EST 03/14/2020 9:00 AM EST 100 mL/hr sodium chloride 0.45 % 1,000 mL with Rate/Dose sodium bicarbonate 8.4 % 75 mEq infusion Verify at 100 mL/hr, Intravenous, Continuous, Starting 03/12/20 at 0900, For 30 days 100 mL/hr Rate/Dose Verify 03/14/2020 8:00 AM EST 100 mL/hr Rate/Dose Verify 03/14/2020 7:00 AM EST 03/12/2020 11:00 AM EST 24 millicuries TC-99M labeled red blood cells New Bag (ULTRATAG) Intravenous, Once, 03/12/20 at 1100, For 1 dose, Imaging Protocol 03/10/2020 8:13 PM EST 1,250 mg 174 mL/hr vancomycin (VANCOCIN) 1250 mg in NaCl New Bag 0.9 % 261 mL (premix) 1,250 mg, Intravenous, Administer over 90 Minutes, Once, 03/10/20 at 1845, For 1 dose 03/11/2020 7:54 PM EST 1,250 mg 174 mL/hr vancomycin (VANCOCIN) 1250 mg in NaCl New Bag 0.9 % 261 mL (premix) 1,250 mg, Intravenous, at 174 mL/hr, Every 24 hours, First dose on 03/11/20 at 2000, For 3 doses, Discouraged Uses: -Treatment of C. difficile infection -Routine treatmen t of neutropenic fever -Non-purulent cellulitis -Community-acquired intra-abdominal infection, 03/17/2020 8:42 AM EST 200 mL/hr vancomycin (VANCOCIN) 1250 mg in NaCl Rate/Dose 0.9 % 261 mL (premix) Change 1,250 mg, Intravenous, Administer over 90 Minutes, Every 24 hours, First dose (after last reorder) on 03/17/20 at 0145, For 3 days 174 mL/hr Rate/Dose Verify 03/17/2020 7:00 AM EST 174 mL/hr Rate/Dose Verify 03/17/2020 6:12 AM EST documented in this encounter
--- OUTSIDE RECORDS SUMMARY | 2020-04-09 22:06 | CCD ---
Author Author [facility] Organization [facility] Address Unknown Phone Unavailable Care Team Providers Care Cell Tuber Machine Name Role Phone Ana Paul Unavailable PROBLEMS Type Condition ICD9-CM Code [id number] Code Onset Dates Condition S tatus SNOMED Code Notes Problem Coronary artery disease invo lving hoh coronary artery of hoh heart without angina pectoris I25.10 Active 439633714116 7 Problem History of permanent cardiac pacemaker placement Z 95.0 Active 987493561 Problem Systolic CHF, chronic I50.22 Active 461915519 Problem Type 2 diabetes mellitus E11.9 Active 3619059 6 Problem Abnormal chest x-ray R93.8 Active 592197106 Problem Renovascular hypertension I15.0 Active 475808 005 Problem Ischemic cardiomyopathy I25.5 Active 48147776 4 Problem Hyperparathyroidism E21.3 Active 24522764 Problem Obesity E66.9 Active 530023339 Problem HECTOR (obstructive sleep apnea) G47.33 Active 78 009426 Problem Hypoparathyroidism E20.9 Active 35194953 Problem Abnormal pulse oximetry R79.81 Active 69137749 0 Problem Left renal atrophy N26.1 Active 061002009 Problem Hypertriglyceridemia E78.1 Active 400221388 Problem Chronic diastolic congestive heart failure I50.32 Active 481731689 Problem Dyslipidemia E78.5 Active 205603996 Problem Type 2 diabetes mellitus with diabetic chronic kidney disease E11.22 Active 779622350442 Problem Unspecified systolic (congestive) heart failure I5 0.20 Active 090014392 Problem Secondary hyperparathyroidism (of renal origin) N2 5.81 Active 98580364 Problem Type 2 diabetes mellitus with hyperglycemia E11.65 Active 23481376 Problem Tobacco dependence F17.200 Active 11842162 Problem Hypercalcemia E83.52 Active 13488577 Problem History of heart artery stent Z95.5 Active 38 3813110 Problem Thrombocytopenia D69.6 Active 588317994 Problem 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 Active 244131579 Problem 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 Active 92857 01 Problem Essential hypertension I10 Active 63858150 Problem Uncomplicated asthma, unspecified asthma severity J45.909 Active 773736728 Problem Coronary angioplasty status Z98.61 Active 4169 56555 Problem Mixed hyperlipidemia E78.2 Active 281572807 Problem Chronic obstructive pulmonary disease, unspecified COPD ty pe J44.9 Active 52977203 Problem History of implantable cardioverter-defibrillato r (ICD) placement Z95.810 Active 180312242 Problem Diastolic CHF with preserved left ventricular fu nction, NYHA class 2 I50.30 Active 728097939 Problem Bilateral carotid artery stenosis I65.23 Active 460115171172611 Problem CKD (chronic kidney disease) stage 4, GFR 15-29 ml/min N18.4 Active 315623239 ALLERGIES Allergen (clinical drug ingredient) Drug/Non Drug Allergy do cumented on EMR Reaction Allergy Type Onset Date Status losartan Losartan Potassium([facility] Code:[address]-24) throa t swelling Drug Allergy Active ENCOUNTERS from 1955 to 2020-02-20 Encounter Location Date Provider Diagnosis [address] [address] Feb, Ana Paul IMMUNIZATIONS Vaccine Route Administration Date [...] Education Language: Question Answer Notes Languages spoken: Mongolian Episcopal: Question Answer Notes Episcopal No mandaen beliefs that would impact health care. Sexual [...] Notes Start Da te End Date Status Pravastatin Sodium 40 MG 1 tablet Orally Once a day for 30 day(s ) June, Active Wheelchair - as directed _ Daily for 999 days May, Active Shower Chair without wheels as directed _ Daily Use for 999 days May, Active Coreg 12.5 MG 1 tab Orally bid Activ e Saline Nasal [place] 0.65 % 2 sprays in each nostril as needed Nasally every 2 hrs for 30 Days Active Basaglar KwikPen 100 UNIT/ML as directed 30 units subcutaneous b efore bedtime Mar, Active Folic Acid 1 MG 1 tablet Orally Once a day for 30 day(s) Active Incruse Ellipta 62.5 MCG/INH 1 puff Inhalation Once a day Active Isosorbide Mononitrate ER 60 MG 1 tablet in the morning Orally O nce a day May, Active One Touch Ultra 2 Lancet One Touch 1 intradermally bef ore breakfast and at night Mar, Active Artificial Tear Solution - 1 drop Ophthalmic daily as needed Active FiberCon 625 MG 1 tab(s) Orally Daily Active Pen Ripley 30G X 8 MM dx: e11.9 topically qid Mar, 201 8 Active Debrox 6.5 % 5 drops into affected ear Otic Twice a day prn Apr, Active AmLODIPine Besylate 5 mg 1 tablet Orally daily for 30 days Active Spironolactone 100 MG 1 tablet Orally once daily Active Humalog KwikPen 100 UNIT/ML DX: E11.9; sliding scale as directed Subcutaneous tid June, Active ReliOn Lancets Micro-Thin 33G . as directed Dx E11.9 three times daily Mar, Active Furosemide 40 MG 1 tablet Orally bid, AM and midafternoon. Hold SBP < 140 or creatinine > 1.8 Active PROCEDURES No Information RESULTS No Results REASON FOR VISIT [facility] 02/15; Symptomatic Anemia MEDICAL (GENERAL) HISTORY Type Description Date Medical History AICD 2009 Medical History Echocardiogram 2013 EF 40% Systolic CHF Medical History Ischemic Cardiomyopathy- follows with Dr Mariel Aldridge Medical History Cardiac Stent x 2 in 2009- [place] Medical History Cardiac stent x 2 at [facility] 03/2016 Medical History Tobacco abuse (quit [...] Medical History CMML diagnosed by BM biopsy, [facility] 03/2019 chemotherapy (Decitabine) Medical History leukemia Surgical History Pacemaker with Defibrillator-Medtronic 2 010 Surgical History 2 cardiac stents 2009 Surgical History 2 cardiac stents-[facility] 03/2016 Surgical History portacath placement 09/09/16 Surgical History Pacemaker with defib replacement 12/2017 Hospitalization History Stent Placement 4 2016 Hospitalization History Pacemaker w/ Defibrillator. 2009 Hospitalization History CHF exacerbation and hypertensive ur gency 06/2013 Hospitalization History blood transfusion at [facility] 04/2019 Goals Section No Information Health Concerns No Information MEDICAL EQUIPMENT No Information MENTAL STATUS No Information FUNCTIONAL STATUS No Information ASSESSMENTS No Information PLAN OF TREATMENT Medication Medication Name Sig Start Date Stop Date One Touch Ultra 2 Lancet One Touch 1 intradermally bef ore breakfast and at night Mar, Humalog KwikPen 100 UNIT/ML DX: E11.9; sliding scale as directed Subcutaneous tid June, Isosorbide Mononitrate ER 60 MG 1 tablet in the morning Oral ly Once a day May, Incruse Ellipta 62.5 MCG/INH 1 puff Inhalation Once a day Furosemide 40 MG 1 tablet Orally bid, AM and midafternoon. Hold SBP < 140 or creatinine > 1.8 Spironolactone 100 MG 1 tablet Orally once daily Pen Ripley 30G X 8 MM dx: e11.9 topically qid Mar, Basaglar KwikPen 100 UNIT/ML as directed 30 units subcutaneo us before bedtime Mar, Coreg 12.5 MG 1 tab Orally bid ReliOn Lancets Micro-Thin 33G . as directed Dx E11.9 three t imes daily Mar, Insurance Providers Payer Name Payer Address Payer Phone Insured Name Patient Relati onship to Insured Coverage Start Date Coverage End Date [facility] [address] [place] [id number] PATRICIA PARKS
--- OUTSIDE RECORDS SUMMARY | 2020-04-09 22:09 | CCD ---
Author Author [facility] Organization [facility] Address Unknown Phone Unavailable Care Team Providers Care Karate Teacher Name Role Phone Pedro Pablo Reece MD Unavailable Unavailable Pedro Pablo Reece MD Unavailable Unavailable Pedro Pablo Reece MD Unavailable Unavailable Pedro Pablo Reece MD Unavailable Unavailable Pedro Pablo Reece MD Unavailable Unavailable Pedro Pablo Reece MD Unavailable Unavailable Doris WARD MD Unavailable Unavailable Doris WARD MD Unavailable Unavailable Doris WARD MD Unavailable Unavailable Doris WARD MD Unavailable Unavailable Doris WARD MD Unavailable Unavailable Doris WARD MD Unavailable Unavailable Doris WARD MD Unavailable Unavailable Doris WARD MD Unavailable Unavailable Doris WARD MD Unavailable Unavailable Doris WARD MD Unavailable Unavailable Doris WARD MD Unavailable Unavailable Doris WARD MD Unavailable Unavailable Doris WARD MD Unavailable Unavailable Doris WARD MD Unavailable Unavailable Doris WARD MD Unavailable Unavailable Doris WARD MD Unavailable Unavailable Doris WARD MD Unavailable Unavailable Doris WARD MD Unavailable Unavailable Doris WARD MD Unavailable Unavailable Doris WARD MD Unavailable Unavailable Doris WARD MD Unavailable Unavailable Doris WARD MD Unavailable Unavailable Doris WARD MD Unavailable Unavailable Doris WARD MD Unavailable Unavailable Doris WARD MD Unavailable Unavailable Doris WARD MD Unavailable Unavailable Doris WARD MD Unavailable Unavailable Doris WARD MD Unavailable Unavailable Doris WARD MD Unavailable Unavailable Doris WARD MD Unavailable Unavailable Doris WARD MD Unavailable Unavailable Doris WARD MD Unavailable Unavailable Doris WARD MD Unavailable Unavailable Doris WARD MD Unavailable Unavailable Doris WARD MD Unavailable Unavailable Doris WARD MD Unavailable Unavailable Doris WARD MD Unavailable Unavailable Doris WARD MD Unavailable Unavailable Doris WARD MD Unavailable Unavailable Doris WARD MD Unavailable Unavailable Doris WARD MD Unavailable Unavailable Doris WARD MD Unavailable Unavailable Doris WARD MD Unavailable Unavailable Doris WARD MD Unavailable Unavailable Doris WARD MD Unavailable Unavailable Doris WARD MD Unavailable Unavailable Doris WARD MD Unavailable Unavailable Doris WARD MD Unavailable Unavailable Doris WARD MD Unavailable Unavailable Doris WARD MD Unavailable Unavailable Gaviria, L Isi PA Unavailable Unavailable Gaviria, L Isi PA Unavailable Unavailable Gaviria, L Isi PA Unavailable Unavailable Gaviria, L Isi PA Unavailable Unavailable Gaviria, L Isi PA Unavailable Unavailable Gaviria, L Isi PA Unavailable Unavailable Gaviria, L Isi PA Unavailable Unavailable Gaviria, L Isi PA Unavailable Unavailable Gaviria, L Isi PA Unavailable Unavailable Gaviria, L Isi PA Unavailable Unavailable Gaviria, L Isi PA Unavailable Unavailable Gaviria, L Isi PA Unavailable Unavailable Gaviria, L Isi PA Unavailable Unavailable Gaviria, L Isi PA Unavailable Unavailable Gaviria, L Isi PA Unavailable Unavailable Gaviria, L Isi PA Unavailable Unavailable Gaviria, L Isi PA Unavailable Unavailable Gaviria, L Isi PA Unavailable Unavailable Gaviria, L Isi PA Unavailable Unavailable Gaviria, L Isi PA Unavailable Unavailable Gaviria, L Isi PA Unavailable Unavailable Gaviria, L Isi PA Unavailable Unavailable Gaviria, L Isi PA Unavailable Unavailable Gaviria, L Isi PA Unavailable Unavailable Gaviria, L Isi PA Unavailable Unavailable Gaviria, L Isi PA Unavailable Unavailable Gaviria, L Isi PA Unavailable Unavailable Gaviria, L Isi PA Unavailable Unavailable Gaviria, L Isi PA Unavailable Unavailable Gaviria, L Isi PA Unavailable Unavailable Gaviria, L Isi PA Unavailable Unavailable Gaviria, L Isi PA Unavailable Unavailable Gaviria, L Isi PA Unavailable Unavailable Gaviria, L Isi PA Unavailable Unavailable Gaviria, L Isi PA Unavailable Unavailable Gaviria, L Isi PA Unavailable Unavailable Blair HUANG AMVICKY ALFONSO Unavailable Unavailable Blair HUANG AMVICKY ALFONSO Unavailable Unavailable Blair HUANG AMVICKY ALFONSO Unavailable Unavailable Blair HUANG AMVICKY ALFONSO Unavailable Unavailable Blair HUANG AMVICKY ALFONSO Unavailable Unavailable Blair HUANG AMVICKY ALFONSO Unavailable Unavailable Blair HUANG MD Unavailable Unavailable Blair HUANG AMVICKY ALFONSO Unavailable Unavailable Blair HUANG MD Unavailable Unavailable Blair HUANG MD Unavailable Unavailable Blair HUANG MD Unavailable Unavailable Blair HUANG MD Unavailable Unavailable Blair HUANG MD Unavailable Unavailable Blair HUANG MD Unavailable Unavailable Blair HUANG MD Unavailable Unavailable Blair HUANG MD Unavailable Unavailable Blair HUANG MD Unavailable Unavailable Blair HUANG MD Unavailable Unavailable Blair HUANG MD Unavailable Unavailable Blair HUANG MD Unavailable Unavailable Blair HUANG MD Unavailable Unavailable Blair HUANG MD Unavailable Unavailable Blair HUANG MD Unavailable Unavailable Blair HUANG MD Unavailable Unavailable Blair HUANG MD Unavailable Unavailable Blair HUANG MD Unavailable Unavailable Blair HUANG MD Unavailable Unavailable Blair HUANG MD Unavailable Unavailable Blair HUANG MD Unavailable Unavailable Blair HUANG MD Unavailable Unavailable Blair HUANG AMVICKY ALFONSO Unavailable Unavailable Blair HUANG MD Unavailable Unavailable Blair HUANG MD Unavailable Unavailable Blair HUANG MD Unavailable Unavailable Blair HUANG MD Unavailable Unavailable Blair HUANG MD Unavailable Unavailable Dara Hardy MD Unavailable Unavailable Dara Hardy MD Unavailable Unavailable Dara Hardy MD Unavailable Unavailable Dara Hardy MD Unavailable Unavailable Koloms, Dara MD Unavailable Unavailable Koloms, Dara MD Unavailable Unavailable Koloms, Dara MD Unavailable Unavailable Koloms, Dara MD Unavailable Unavailable Koloms, Dara MD Unavailable Unavailable Koloms, Dara MD Unavailable Unavailable Koloms, Dara MD Unavailable Unavailable Koloms, Dara MD Unavailable Unavailable Koloms, Dara MD Unavailable Unavailable Koloms, Dara MD Unavailable Unavailable Koloms, Dara MD Unavailable Unavailable Koloms, Dara MD Unavailable Unavailable Koloms, Dara MD Unavailable Unavailable Koloms, Dara MD Unavailable Unavailable Koloms, Dara MD Unavailable Unavailable Koloms, Dara MD Unavailable Unavailable Koloms, Dara MD Unavailable Unavailable Koloms, Dara MD Unavailable Unavailable Koloms, Dara MD Unavailable Unavailable Koloms, Dara MD Unavailable Unavailable Koloms, Dara MD Unavailable Unavailable Koloms, Dara MD Unavailable Unavailable Koloms, Dara MD Unavailable Unavailable Koloms, Dara MD Unavailable Unavailable Emily, B Zafarstar ALFONSO Unavailable Unavailable Emily, B Zafarstar ALFONSO Unavailable Unavailable Emily, B Zafarstar ALFONSO Unavailable Unavailable Emily, B Zafarstar ALFONSO Unavailable Unavailable Emily, B Zafarstar ALFONSO Unavailable Unavailable Emily, B Zafarstar ALFONSO Unavailable Unavailable Emily, B Zafarstar ALFONSO Unavailable Unavailable Emily, B Zafarstar ALFONSO Unavailable Unavailable Emily, B Zafarstar ALFONSO Unavailable Unavailable Emily, B Zafarstar ALFONSO Unavailable Unavailable Emily, B Zafarstar ALFONSO Unavailable Unavailable Emily, B Zafarstar ALFONSO Unavailable Unavailable Emily, B Zafarstar ALFONSO Unavailable Unavailable Emily, B Zafarstar ALFONSO Unavailable Unavailable Emily, B Zafarstar ALFONSO Unavailable Unavailable Emily, B Zafarstar ALFONSO Unavailable Unavailable Emily, B Zafarstar ALFONSO Unavailable Unavailable Emily, B Zafarstar ALFONSO Unavailable Unavailable Emily, B Zafarstar ALFONSO Unavailable Unavailable Emily, B Zafar MD Unavailable Unavailable Emily, B Zafarstar ALFONSO Unavailable Unavailable Emily, B Zafarstar ALFONSO Unavailable Unavailable Emily, B Zafarstar ALFONSO Unavailable Unavailable Emily, B Zafarstar ALFONSO Unavailable Unavailable Emily, B Zafarstar ALFONSO Unavailable Unavailable Emily, B Zafar MD Unavailable Unavailable Emily, B Zafarstar ALFONSO Unavailable Unavailable Emily, B Zafarstar ALFONSO Unavailable Unavailable SYSTEM IN, NOT IN PROVIDER Unavailable Unavailable Matty Veleza MD Unavailable Unavailable DeepaliMatty MD Unavailable Unavailable DeepaliMatty MD Unavailable Unavailable DeepaliMatty MD Unavailable Unavailable DeepaliMatty MD Unavailable Unavailable DeepaliMatty MD Unavailable Unavailable DeepaliMatty MD Unavailable Unavailable DeepaliMatty MD Unavailable Unavailable Deepali, Matty Leon MD Unavailable Unavailable Deepali, Matty Leon MD Unavailable Unavailable DeepaliMatty MD Unavailable Unavailable Deepali, Matty Leon MD Unavailable Unavailable Deepali, Matty Leon MD Unavailable Unavailable DeepaliMatty MD Unavailable Unavailable Deepali, Matty Leon MD Unavailable Unavailable Deepali, Matty Leon MD Unavailable Unavailable Deepali, Matty Leon MD Unavailable Unavailable Deepali, Matty Leon MD Unavailable Unavailable DeepaliMatty MD Unavailable Unavailable DeepaliMatty MD Unavailable Unavailable Deepali, Matty Leon MD Unavailable Unavailable DeepaliMatty MD Unavailable Unavailable Deepali, Matty Leon MD Unavailable Unavailable DeepaliMatty MD Unavailable Unavailable DeepaliMatty MD Unavailable Unavailable DeepaliMatty MD Unavailable Unavailable DeepaliMatty MD Unavailable Unavailable DeepaliMatty MD Unavailable Unavailable DeepaliMatty MD Unavailable Unavailable DeepaliMatty MD Unavailable Unavailable DeepaliMatty MD Unavailable Unavailable DeepaliMatty MD Unavailable Unavailable DeepaliMatty MD Unavailable Unavailable DeepaliMatty MD Unavailable Unavailable DeepaliMatty MD Unavailable Unavailable DeepaliMatty MD Unavailable Unavailable DeepaliMatty MD Unavailable Unavailable DeepaliMatty MD Unavailable Unavailable DeepaliMatty jordan MD Unavailable Unavailable DeepaliMatty MD Unavailable Unavailable DeepaliMatty MD Unavailable Unavailable DeepaliMatty MD Unavailable Unavailable DeepaliMatty MD Unavailable Unavailable DeepaliMatty MD Unavailable Unavailable DeepaliMatty MD Unavailable Unavailable DeepaliMatty jordan MD Unavailable Unavailable DeepaliMatty MD Unavailable Unavailable DeepaliMatty MD Unavailable Unavailable DeepaliMatty MD Unavailable Unavailable DeepaliMatty MD Unavailable Unavailable Deepali, C Lisa MD Unavailable Unavailable Deepali, C Lisa MD Unavailable Unavailable Deepali, C Lisa MD Unavailable Unavailable Deepali, C Lisa MD Unavailable Unavailable Deepali, C Lisa MD Unavailable Unavailable Deepali, C Lisa MD Unavailable Unavailable Deepali, C Lisa MD Unavailable Unavailable Re-disclosure Warning The records that you are about to access may contain information from federally-assisted alcohol or drug abuse programs. If such information is present, then the following federally mandated warning applies: This information has been disclosed to you from records protected by federal confidentiality rules (42 CFR part 2). The federal rules prohibit you from making any further disclosure of this information unless further disclosure is expressly permitted by the written consent of the person to whom it pertains or as otherwise permitted by 42 CFR part 2. A general authorization for the release of medical or other information is NOT sufficient for this purpose. The Federal rules restrict any use of the information to criminally investigate or prosecute any alcohol or drug abuse patient.The records that you are about to access may contain highly sensitive health information, the redisclosure of which is protected by Article 27-F of the [facility] Public Health law. If you continue you may have access to information: Regarding HIV / AIDS; Provided by facilities licensed or operated by the [facility] Office of Mental Health; or Provided by the [facility] Office for People With Developmental Disabilities. If such information is present, then the following [facility] mandated warning applies: This information has been disclosed to you from confidential records which are protected by state law. State law prohibits you from making any further disclosure of this information without the specific written consent of the person to whom it pertains, or as otherwise permitted by law. Any unauthorized further disclosure in violation of state law may result in a fine or assisted sentence or both. A general authorization for the release of medical or other information is NOT sufficient authorization for further disc losure. Allergies and Adverse Reactions Type Description Substance Reaction Status Data Source(s ) Drug allergy Losartan Potassium Losartan throat swelling Active eCW1 ([facility]) DRUG INGREDI LOSARTAN LOSARTAN Anaphylaxis [facility] Family History Family Member Name Family Member Gender Family Member Status Date o f Status Description Data Source(s) Unknown Unknown Problem MEDENT ([facility]) Encounters Encounter Providers Location Date Indications Data Source(s ) Outpatient Attender: Dara Hardy MDConsultant: LATOYA Pires MD 04/09/2020 08:49:46 AM [facility] Outpatient Attender: Dara Hardy MDConsultant: LATOYA Pires MD 04/09/2020 08:47:00 AM [facility] [place] [address] [facility] [place] [address] 03/26/2020 12:00:00 AM EST eCW1 ([facility]) Unknown [address] [facility] [place] [address] 03/20/2020 12:00:00 AM EST eCW1 ([facility]) [place] [address] [facility] [address] 03/09/2020 12:00:00 AM EST eCW1 ([facility]) Unknown [address] [facility] [place] [address] 03/07/2020 12:00:00 AM EST eCW1 ([facility]) Inpatient Attender: Lisa Velez MDA ttender: RAMY WARD MDAdmitter: Lisa Velez MDReferrer: RAMY WARD MD [id number] 03/06/2020 12:00 :00 AM EST - 03/18/2020 12:00:00 AM EST 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 Outpatient [email or web address] 02/24/2020 04:56:28 PM EST [facility] Outpatient [email or web address] 02/23/2020 12:00:00 AM EST [facility] [place] [address] [facility] [address] 02/20/2020 12:00:00 AM EST eCW1 ([facility]) Outpatient [address] [facility] [place] [address] 12/23/2019 12:00:00 AM EST eCW1 ([facility]) Outpatient Attender: Isi RODRIGUES-SJPMarielMAX 05/2019 12:00:00 AM EST - 12/21/2019 01:54:51 PM EST [facility] Outpatient RAVI-SJPMarielMAX 11/03/2019 09:39 :53 AM EDT - 11/03/2019 10:33:53 AM EDT [facility] Unknown [address] [facility] [id number] 07/28/2019 12:00:00 AM EDT eCW1 ([facility]) [facility] GME Resident [address] [place] [phone] 07/22/2019 12:00:00 AM EDT eCW1 ([facility]) Unknown [address] [place] [phone] 07/18/2019 12:00:00 AM EDT eCW1 ([facility]) [address] [address] 07/14/2019 12:00:00 AM EDT eCW1 ([facility]) Outpatient 07/06/2019 05:22:00 AM EDT [facility] [address] [facility] [address] 06/29/2019 12:00:00 AM EDT eCW1 ([facility]) [facility] [address] [facility] [place] [address] 06/29/2019 12:00:00 AM EDT eCW1 ([facility]) [facility] [address] [facility] [place] [address] 06/27/2019 12:00:00 AM EDT eCW1 ([facility]) [facility] GME Resident [address] [place] [phone] 06/24/2019 12:00:00 AM EDT eCW1 ([facility]) Outpatient 06/22/2019 05:30:00 AM EDT [facility] [address] [address] 06/10/2019 12:00:00 AM EDT eCW1 ([facility]) [address] [address] 06/06/2019 12:00:00 AM EDT eCW1 ([facility]) [address] [address] 06/03/2019 12:00:00 AM EDT eCW1 ([facility] [place]) Outpatient [email or web address] 06/02/2019 11:09:[address] [facility] [address] [place] [address], [place] [address] 06/02/2019 12:00:00 AM EDT eCW1 ([facility]) [address] [address] 05/30/2019 12:00:00 AM EDT eCW1 ([facility]) [facility] Resident [address] [place] [phone] 05/27/2019 12:00:00 AM EDT eCW1 ([facility]) [facility] Resident [address] [place] [phone] 05/16/2019 12:00:00 AM EDT eCW1 ([facility]) [address] [address] 05/12/2019 12:00:00 AM EDT eCW1 ([facility]) [address] [place] [address] 05/12/2019 12:00:00 AM EDT eCW1 ([facility]) [address] [place] [address] 05/12/2019 12:00:00 AM EDT eCW1 ([facility]) [address] [place] [address] 05/12/2019 12:00:00 AM EDT eCW1 ([facility]) [facility] [place] [address] [facility] [address] 05/09/2019 12:00:00 AM EDT eCW1 ([facility]) Outpatient 05/03/2019 11:18:00 AM EDT [facility] Outpatient 04/21/2019 01:58:00 PM EST [facility] Outpatient Attender: Zafar Diaz MD 04/19/2019 12:00:0 0 AM EST [facility] Outpatient 04/15/2019 06:06:00 AM EST [facility] [place] [address] [facility] [address] 04/15/2019 12:00:00 AM EST eCW1 ([facility]) [facility] GME Resident [address] [place] [address] 04/15/2019 12:00:00 AM EST eCW1 ([facility]) Outpatient 04/12/2019 10:01:00 AM EST [facility] Outpatient Attender: Zafar Diaz MD Admitter: Zafar Diaz MDReferrer: PROVIDER SYSTEM IN 04/05/2019 12:00:00 AM EST - 04/09/2019 12:00:00 AM EST acute leukemia [facility] acute leukemia Patient discharged. Outpatient Attender: Pedro Pablo George DAdmitter: Pedro Pablo Reece MDReferrer: Pedro Pablo Reece MD 04/03/2019 12:00:00 AM EST - 04/04/2019 12:00:00 AM EST Leukoerythroblastosis Rule out [facility] Leukoerythroblastosis Rule out Leukemia Outpatient [email or web address] 03/31/2019 09:24 :48 AM EST - 03/31/2019 09:45:58 AM EST [facility] Outpatient 03/30/2019 03:47:00 PM EST [facility] [place] [address] [facility] [address] 03/28/2019 12:00:00 AM EST eCW1 ([facility]) [facility] GME Resident [address] [place] [address] 03/25/2019 12:00:00 AM EST eCW1 ([facility]) [facility] Shandra Kang[address] [facility] [place] [address] 03/18/2019 12:00:00 AM EST eCW1 ([facility]) [facility] Shandra Kang[address] [facility] [address] 02/17/2019 12:00:00 AM EST eCW1 ([facility]) Immunizations Vaccine Date Status Description Data Source(s) INFLUENZA VIRUS VACCINE QUADRIVALENT 2019- (6 MOS AN D UP) 12/14/2019 12:00:00 AM EDT [facility] Medications Medication Brand Name Start Date Product Form Dose Route Admi nistrative Instructions Pharmacy Instructions Status Indications Reaction Description Data Source(s) Sennosides-Docusate Sodium 8.6-50 MG Sennosides-Docusate Sod ium 8.6-50 MG 03/25/2020 12:00:00 AM EST 1.0 {tablet_in_the_evening_as_needed} active Sennosides-Docusate Sodium 8.6-50 MG eCW 1 ([facility]) Vitamin D-3 25 MCG (1000 UT) Vitamin D-3 25 MCG (1000 UT) 12:00:00 AM EST 1.0 {capsule} active Vitamin D- 3 25 MCG (1000 UT) eCW1 ([facility]) Acyclovir 200 MG Oral Capsule Acyclovir 200 MG 03/25/2020 12:00:00 AM EST 1.0 {capsule} active Acyclovir 200 MG eCW1 ([facility]) eltrombopag 25 MG Oral Tablet [Promacta] Promacta 25 MG Prom acta 25 MG 03/25/2020 12:00:00 AM EST active Promacta 25 MG eCW1 ([facility]) Levofloxacin 500 MG Oral Tablet Levofloxacin 500 MG 03/25/2020 1 2:00:00 AM EST 1.0 {tablet} active Levofloxaci n 500 MG eCW1 ([facility]) Prochlorperazine 10 MG Oral Tablet Prochlorperazine Ma leate 10 MG Prochlorperazine Maleate 10 MG 03/25/2020 12:00:00 AM EST 1. 0 {tablet_as_needed} active Prochlorperaz ine Maleate 10 MG eCW1 ([facility]) Umeclidinium [place] 62.5 MCG/INH UNK 03/25/2020 12:00:00 AM EST 1.0 {puff} active Umeclidinium [place] 62.5 MCG/INH eCW1 ([facility]) Insulin Lispro 100 UNT/ML Injectable Solution [Humalog ] Humalog 100 UNIT/ML Humalog 100 UNIT/ML 03/25/2020 12:00:00 AM EST active Humalog 100 UNIT/ML eCW1 ([facility]) Fluconazole 200 MG Oral Tablet Fluconazole 200 MG 03/25/2020 12:00: 00 AM EST 1.0 {tablet} active Fluconazole 200 MG eCW1 ([facility]) pantoprazole 40 MG Delayed Release Oral Tablet Pantopr azole Sodium 40 MG Pantoprazole Sodium 40 MG 03/25/2020 12:00:00 AM EST 1.0 {tablet} active Pantoprazole Sodium 40 MG eCW1 ( [facility]) Acetaminophen 500 MG Oral Tablet Acetaminophen 500 MG 2020 12:00:00 AM EST 2.0 {tablet_as_needed} active A cetaminophen 500 MG eCW1 ([facility]) Acetaminophen 325 MG Oral Tablet acetaminophen (TYLENO L) tablet 650 mg acetaminophen (TYLENOL) tablet 650 mg 03/18/2020 01:00:00 PM EST 65 0 mg Oral completed 650 mg, Oral, O nce, 03/18/20 at 1300, For 1 dose
Maximum daily dose of acetaminophen is 3,000 mg from all sources in 24 hours.
[facility] Medication administered onsite Diphenhydramine Hydrochloride 25 MG Oral Capsule diphenhydrAMINE (BENADRYL) capsule 25 mg diphenhydrAMINE (BENADRYL) capsule 25 mg 03/18/2020 01 :00:00 PM EST 25 mg Oral completed 25 mg, Oral, Once, 03/18/20 at 1300, For 1 dose [facility] Medication administered onsite carvedilol 3.125 MG Oral Tablet carvedilol (COREG) tab let 6.25 mg carvedilol (COREG) tablet 6.25 mg 03/18/2020 10:45:00 AM EST 6.25 mg Oral active 6.25 mg, Oral, Once, 03/18/20 at 1045, For 1 dose [facility] Medication administered onsite carvedilol 12.5 MG Oral Tablet Carvedilol 12.5 MG Oral Tablet (COREG) Carvedilol 12.5 MG Oral Tablet (COREG) 03/18/2020 12:00:00 AM EST 6.25 mg Oral active Take 0.5 tablets by mouth Two Ti mes Daily [facility] Levofloxacin 500 MG Oral Tablet levoFLOXacin 500 MG Or al Tablet (LEVAQUIN) levoFLOXacin 500 MG Oral Tablet (LEVAQUIN) 03/18/2020 12:00:00 AM EST 500 mg Oral active Take 1 tablet by melissa th daily for 7 days [facility] Levofloxacin 500 MG Oral Tablet levoFLOXacin (LEVAQUIN ) tablet 500 mg levoFLOXacin (LEVAQUIN) tablet 500 mg 03/17/2020 09:15:00 AM EST 50 0 mg Oral active 500 mg, Oral, E very 48 hours, First dose (after last reorder) on 03/17/20 at 0915, For 5 days
Administer 2 hours before or 4 hours after oral magnesium, calcium, iron, and sucralfate.
Discouraged Uses: Treatment of UTI
[facility] Medication administered onsite vancomycin (VANCOCIN) 1250 mg in NaCl 0.9 % 261 mL (premix) 03/17/2020 01:45:00 AM EST 1250 mg Intravenous aborted 1,250 mg, Intravenous, Administer over 90 Minutes, Every 24 hours, First dose (after last reorder) on 03/17/20 at 0145, For 3 days [facility] Medication administered onsite Piperacillin 3000 MG / tazobactam 375 MG Injection piperacillin-tazobactam (ZOSYN) IVPB 3.375 g (premix) piperacillin-tazobactam (ZOSYN) IVPB 3.3 75 g (premix) 03/17/2020 01:15:00 AM EST 3.375 g Intravenous abo rted 3.375 g, Intravenous, Administer over 4 Hours, Every 8 hours, First dose on Thu03/17/20 at 0115, For 7 days
This specific formulation of piperacillin- tazobactam is compatible with Lactated Ringers.
[facility] Medication administered onsite Levofloxacin 500 MG Oral Tablet levoFLOXacin (LEVAQUIN ) tablet 500 mg levoFLOXacin (LEVAQUIN) tablet 500 mg 03/16/2020 09:00:00 AM EST 50 0 mg Oral aborted 500 mg, Oral, D aily Standard, First dose on Thu03/16/20 at 0900, For 10 days
Administer 2 hours before or 4 hours after oral magnesium, calcium, iron, and sucralfate.
Discouraged Uses: Treatment of UTI
[facility] Medication administered onsite Sandraaglmarina KwikPen 100 UNIT/ML Subcutaneou s Solution Pen-injector (insulin glargine) [id number] 03/16/2020 12:00:00 AM EST 10 U Subcutaneous active Inject 10 Units into the skin ni [facility] maalox/lidocaine/diphenhydrAMINE 1:1:1 SWISH & SWAL oral kourtney pension 03/16/2020 12:00:00 AM EST 5 mL Swish & Spit active Swish and spit 5 mLs Four times daily before meals & bedtime as needed (mucositis) for up to 10 daysPharmacy compound: Maalox, lidocaine viscous 2 %, Benadryl 12.5 mg/5 mL [facility] pantoprazole 40 MG Delayed Release Oral Tablet Pantoprazole Sodium 40 MG Oral Tablet Delayed Release (PROTONIX) Pantoprazole Sodium 40 MG Oral Tablet De layed Release (PROTONIX) 03/16/2020 12:00:00 AM EST 40 mg Oral active Take 1 tablet by mouth daily [facility] Lidocaine 5 % External Patch (LIDODERM) [id number] 03/16/19 12:00:00 AM EST 1 {patch} Transdermal active Place 1 pa tch onto the skin daily 12 hours on 12 hours off [facility] Fluconazole 200 MG Oral Tablet Fluconazole 200 MG Oral Tablet (DIFLUCAN) Fluconazole 200 MG Oral Tablet (DIFLUCAN) 03/16/2020 12:00:00 AM EST 200 mg Oral active Take 1 tablet by melissa th daily [facility] Insulin Glargine 100 UNT/ML Injectable S olution insulin glargine (LANTUS) injection 10 Units insulin glargine (LANTUS) injection 10 Units 02:30:00 PM EST 10 U Subcutaneous active 10 Units, Subcutaneous, Daily Standard, First dose on Ira 03/15/20 at 1430, For 30 days
For blood glucose less than 70 mg/dL: follow hypoglycemia protocol (CM ) and notify provider.For blood glucose values between 70 mg/dL and 100 mg/dL at bedtime: provide snack (15 grams of carbohydrates) with some protein. Administer FULL DOSE of insulin glargine (LANTUS) after snack.Record snack in I&O's. For blood glucose more than 400 mg/dL: notify provider
[facility] Medication administered onsite eltrombopag 25 MG Oral Tablet Eltrombopag Olamine 25 M G Oral Tablet (PROMACTA) Eltrombopag Olamine 25 MG Oral Tablet (PROMACTA) 03/15/2020 12:00:00 AM EST 50 mg Oral active Take 2 tab lets by mouth daily Administer on an empty stomach, 1 hour before or 2 hours after a meal. [facility] maalox/lidocaine/diphenhydrAMINE 1:1:1 SWISH & SWAL oral kourtney pension 03/15/2020 12:00:00 AM EST 5 mL Swish & Spit aborted Swish and spit 5 mLs Four times daily before meals & bedtime as needed (mucositis) for up to 10 daysPharmacy compound: Maalox, lidocaine viscous 2 %, Benadryl 12.5 mg/5 mL [facility] Acyclovir 200 MG Oral Capsule Acyclovir 200 MG Oral Ca psule (ZOVIRAX) Acyclovir 200 MG Oral Capsule (ZOVIRAX) 03/15/2020 12:00:00 AM EST 400 mg Ora l active Take 2 capsules by mouth Three t imes daily [facility] Tiotropium [place] Monohydrate 2.5 MCG/A CT Inhalation Aerosol Solution (SPIRIVA RESPIMAT) [id number] 03/15/2020 12:00:00 AM EST 2 {puff} Inhalation aborted Inhale 2 puffs into the lungs daily [facility] sennosides, LONG-TERM 8.6 MG Oral Tablet Senna 8.6 MG Oral T ablet Senna 8.6 MG Oral Tablet 03/15/2020 12:00:00 AM EST 2 {tbl} Oral active Take 2 tablets by mouth nightly [facility] NaCl infusion 0.9 % [id number] 03/14/2020 08:45:00 AM EST Intravenous aborted at 100 mL/hr, Intrav enous, Continuous, Starting Thu03/14/20 at 0845, For 30 days [facility] Medication administered onsite potassium chloride (K-DUR) dissolvable tablet 40 mEq [id number] 03/14/2020 03:15:00 AM EST 40 meq Oral completed 40 mEq, Oral, 2 Times Daily, First dose on Thu03/14/20 at 0315, For 1 day
May be dissolved in water for patients with a G-Tube or unable to swallow. If concern for clogging G-Tube, may contact Pharmacy to switch formulation to a powder packet.
[facility] Medication administered onsite TC-99M labeled red blood cells (ULTRATAG) 03/12/2020 11:00 :00 AM EST Intravenous completed Intravenous, Once, Thu03/12/20 at 1100, For 1 dose, Imaging Protocol [facility] Medication administered onsite sodium chloride 0.45 % 1,000 mL with sodium bicarbonate 8.4 % 75 mEq infusion 03/12/2020 09:00:00 AM EST Intravenous aborted at 100 mL/hr, Intravenous, Continuous, Starting Thu03/12/20 at 0900, For 30 days [facility] Medication administered onsite carvedilol 3.125 MG Oral Tablet carvedilol (COREG) tab let 12.5 mg carvedilol (COREG) tablet 12.5 mg 03/11/2020 09:00:00 PM EST 12.5 mg Oral aborted 12.5 mg, Oral, 2 Times Daily, First dose (after last modification) on Thu03/11/20 at 2100, For 51 doses [facility] Medication administered onsite vancomycin (VANCOCIN) 1250 mg in NaCl 0.9 % 261 mL (premix) 03/11/2020 08:00:00 PM EST 1250 mg Intravenous aborted 1,250 mg, Intravenous, at 174 mL/hr, Every 24 hours, First dose on 03/11/20 at 2000, For 3 doses
Discouraged Uses: -Treatment of C. difficile infection -Routine treatment of neutropenic fever -Non-purulent cellulitis -Community-acquired intra-abdominal infection
[facility] Medication administered onsite Diphenhydramine Hydrochloride 25 MG Oral Capsule diphenhydrAMINE (BENADRYL) capsule 25 mg diphenhydrAMINE (BENADRYL) capsule 25 mg 03/11/2020 06 :30:00 PM EST 25 mg Oral completed 25 mg, Oral, Every 6 hours PRN, transfusion, Starting 03/11/20 at 1830, For 6 days 14 hours [facility] Medication administered onsite Albuterol 0.83 MG/ML Inhalant Solution a lbuterol (PROVENTIL) nebulizer solution 2.5 mg albuterol (PROVENTIL) nebulizer solution 2.5 mg 2020 05:00:00 PM EST 2.5 mg Nebulization completed 2 .5 mg, Nebulization, Every 8 hours, First dose (after last reorder) on 03/11/20 at 1700, For 20 doses
For Adults Q8 Hours is Hospital Standard, all orders will be changed to this unless CRISS is selected 'Yes' below.
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
Infusion must be completed within 1 hr of vial reconstitution.
[facility] Chronic myelomonocytic leukemia not havi ng achieved remission Medication administered onsite Ondansetron 8 MG Oral Tablet ondansetron (ZOFRAN) tabl et 8 mg ondansetron (ZOFRAN) tablet 8 mg 03/11/2020 01:00:00 PM EST 8 mg Oral completed 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 8 mg, Oral, Once, 03/11/20 at 1300, For 1 dose
Give prior to chemotherapy.
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
Apply to back12 hours on - 12 hours off
[facility] Medication administered onsite Furosemide 20 MG Oral Tablet furosemide (LASIX) tablet 40 mg furosemide (LASIX) tablet 40 mg 03/11/2020 09:30:00 AM EST 40 mg Oral abort ed 40 mg, Oral, Daily Standard, First dose on 03/11/20 at 0930, For 30 days [facility] Medication administered onsite heparin sodium, porcine 10 UNT/ML Inject able Solution heparin lock flush 10 UNIT/ML injection 50 Units heparin lock flush 10 UNIT/ML injection 50 Units 03/11/2020 09:15:16 AM EST 50 U Intracatheter active 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 50 Units, Intracatheter, PRN, Line Care, Starting 03/11/20 at 0915, For 30 days
Flush line after NS for central line patency and/or prn to obtain blood return.
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
Flush via port/central line/peripheral before and after each use.
[facility] Chronic myelomonocytic leukemia not havi ng achieved remission Medication administered onsite 3 ML heparin sodium, porcine 100 UNT/ML Prefilled Syringe heparin flush (porcine) 100 UNIT/ML injection 500 Units heparin flush (porcine) 100 UNIT/ML injection 500 Units 03/11/2020 09:15:16 AM EST 500 U Intracatheter active 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 500 Units, Intracatheter, PRN, Line Care, Starting 03/11/20 at 0915, For 30 days
Flush line after NS prior to port deaccess.
[facility] Chronic myelomonocytic leukemia not havi ng achieved remission Medication administered onsite NaCl infusion 0.9 % [id number] 03/11/2020 09:15:16 AM EST Intravenous active Chronic myelomonocytic leukemia not having achieved remissio n Intravenous, PRN, Line care, Starting 03/11/20 at 0915, For 30 days
Flush with 30mL after each medication given intravenously.
[facility] Chronic myelomonocytic leukemia not havi ng achieved remission Medication administered onsite Piperacillin 3000 MG / tazobactam 375 MG Injection piperacillin-tazobactam (ZOSYN) IVPB 3.375 g (premix) piperacillin-tazobactam (ZOSYN) IVPB 3.3 75 g (premix) 03/11/2020 01:30:00 AM EST 3.375 g Intravenous abo rted 3.375 g, Intravenous, Administer over 0.5 Hours, Every 6 hours, First dose (after last reorder) on 03/11/20 at 0130, For 26 doses
This specific formulation of piperacillin-tazobactam is compatible with Lactated Ringers.
[facility] Medication administered onsite vancomycin (VANCOCIN) 1250 mg in NaCl 0.9 % 261 mL (premix) 03/10/2020 06:45:00 PM EST 1250 mg Intravenous completed 1,250 mg, Intravenous, Administer over 90 Minutes, Once, 03/10/20 at 1845, For 1 dose [facility] Medication administered onsite Acetaminophen 325 MG Oral Tablet acetaminophen (TYLENO L) tablet 650 mg acetaminophen (TYLENOL) tablet 650 mg 03/10/2020 06:15:00 PM EST 65 0 mg Oral completed 650 mg, Oral, O nce, 03/10/20 at 1815, For 1 dose
Maximum daily dose of acetaminophen is 3,000 mg from all sources in 24 hours.
[facility] Medication administered onsite Piperacillin 3000 MG / tazobactam 375 MG Injection piperacillin-tazobactam (ZOSYN) IVPB 3.375 g (premix) piperacillin-tazobactam (ZOSYN) IVPB 3.3 75 g (premix) 03/10/2020 06:15:00 PM EST 3.375 g Intravenous abo rted 3.375 g, Intravenous, Administer over 4 Hours, Every 8 hours, First dose on 03/10/20 at 1815, For 3 days
This specific formulation of piperacillin- tazobactam is compatible with Lactated Ringers.
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
Infusion must be completed within 1 hr of vial reconstitution.
[facility] Chronic myelomonocytic leukemia not havi ng achieved remission Medication administered onsite Ondansetron 8 MG Oral Tablet ondansetron (ZOFRAN) tabl et 8 mg ondansetron (ZOFRAN) tablet 8 mg 03/10/2020 02:00:00 PM EST 8 mg Oral completed 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 8 mg, Oral, Once, 03/10/20 at 1400, For 1 dose
Give prior to chemotherapy.
[facility] Chronic myelomonocytic leukemia not havi ng achieved remission Medication administered onsite heparin sodium, porcine 10 UNT/ML Inject able Solution heparin lock flush 10 UNIT/ML injection 50 Units heparin lock flush 10 UNIT/ML injection 50 Units 03/10/2020 11:13:25 AM EST 50 U Intracatheter active 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 50 Units, Intracatheter, PRN, Line Care, Starting 03/10/20 at 1113, For 30 days
Flush line after NS for central line patency and/or prn to obtain blood return.
[facility] Chronic myelomonocytic leukemia not havi ng achieved remission Medication administered onsite 3 ML heparin sodium, porcine 100 UNT/ML Prefilled Syringe heparin flush (porcine) 100 UNIT/ML injection 500 Units heparin flush (porcine) 100 UNIT/ML injection 500 Units 03/10/2020 11:13:25 AM EST 500 U Intracatheter active 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 500 Units, Intracatheter, PRN, Line Care, Starting 03/10/20 at 1113, For 30 days
Flush line after NS prior to port deaccess.
[facility] Chronic myelomonocytic leukemia not havi ng achieved remission Medication administered onsite NaCl infusion 0.9 % [id number] 03/10/2020 11:13:25 AM EST Intravenous active Chronic myelomonocytic leukemia not having achieved remissio n Intravenous, PRN, Line care, Starting 03/10/20 at 1113, For 30 days
Flush with 30mL after each medication given intravenously.
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
Flush via port/central line/peripheral before and after each use.
[facility] Chronic myelomonocytic leukemia not havi ng achieved remission Medication administered onsite eltrombopag 25 MG Oral Tablet eltrombopag (PROMACTA) t ablet 50 mg eltrombopag (PROMACTA) tablet 50 mg 03/09/2020 11:30:00 AM EST 50 mg Oral active 50 mg, Oral, Daily Standard, First dose on Thu03/09/20 at 1130, For 12 doses [facility] Medication administered onsite Docusate Sodium 100 MG Oral Capsule docusate sodium (C OLACE) capsule 100 mg docusate sodium (COLACE) capsule 100 mg 03/08/2020 09:00:00 PM EST 100 mg Oral active 100 mg, Oral, 2 Times Daily, First dose on Thu03/08/20 at 2100, For 30 days [facility] Medication administered onsite POLYETHYLENE GLYCOL 3350 142 MG/ML Oral Solution polyethylene glycol (MIRALAX) packet 17 g polyethylene glycol (MIRALAX) packet 17 g 03/08/2020 1 0:45:00 AM EST 17 g Oral active 17 g, Or al, Daily Standard, First dose on Thu03/08/20 at 1045, For 30 days
Mix in 8 ounces of water, juice or milk. Avoid use in patients who require thickened liquids due to potential increased risk for aspiration.
[facility] Medication administered onsite Levofloxacin 250 MG Oral Tablet levoFLOXacin (LEVAQUIN ) tablet 250 mg levoFLOXacin (LEVAQUIN) tablet 250 mg 03/08/2020 09:00:00 AM EST 25 0 mg Oral aborted 250 mg, Oral, D aily Standard, First dose on Thu03/08/20 at 0900, For 10 days
Administer 2 hours before or 4 hours after oral magnesium, calcium, iron, and sucralfate.
Discouraged Uses: Treatment of UTI
[facility] Medication administered onsite Allopurinol 100 MG Oral Tablet allopurinol (ZYLOPRIM) tablet 100 mg allopurinol (ZYLOPRIM) tablet 100 mg 03/08/2020 09:00:00 AM EST 100 mg Oral active 100 mg, Oral, Daily Standard, First dose on Thu at 0900, For 30 days [facility] Medication administered onsite Diphenhydramine Hydrochloride 25 MG Oral Capsule diphenhydrAMINE (BENADRYL) capsule 25 mg diphenhydrAMINE (BENADRYL) capsule 25 mg 03/08/2020 08 :40:18 AM EST 25 mg Oral aborted 25 mg, O ral, Daily PRN, transfusion, Starting Ira 03/08/20 at 0840, For 30 days [facility] Medication administered onsite Acetaminophen 325 MG Oral Tablet acetaminophen (TYLENO L) tablet 650 mg acetaminophen (TYLENOL) tablet 650 mg 03/08/2020 08:39:40 AM EST 65 0 mg Oral active 650 mg, Oral, D aily PRN, transfusion, Starting Ira 03/08/20 at 0839, For 30 days
Maximum daily dose of acetaminophen is 3000 mg from all sources in 24 hours.
[facility] Medication administered onsite maalox/lidocaine/diphenhydrAMINE (RADIATION MIXTURE) 1 :1:1 oral suspension 5 mL 03/08/2020 08:38:26 AM EST 5 mL Swish & Spit activ e 5 mL, Swish & Spit, Before Meals & Bedtime-PRN, mucositis, Starting Ira 03/08/20 at 0838, For 30 days [facility] Medication administered onsite Acetaminophen 325 MG Oral Tablet acetaminophen (TYLENO L) tablet 650 mg acetaminophen (TYLENOL) tablet 650 mg 03/08/2020 05:30:00 AM EST 65 0 mg Oral completed 650 mg, Oral, O nce, [facility] 03/08/20 at 0530, For 1 dose
Maximum daily dose of acetaminophen is 3,000 mg from all sources in 24 hours.
[facility] Medication administered onsite sennosides, LONG-TERM 8.6 MG Oral Tablet senna tablet 2 tablet sen na tablet 2 tablet 03/07/2020 10:00:00 PM EST 2 {tbl} Oral active 2 tablet, Oral, Nightly, First dose on Thu03/07/20 at 2200, For 30 days [facility] Medication administered onsite Diphenhydramine Hydrochloride 25 MG Oral Capsule diphenhydrAMINE (BENADRYL) capsule 25 mg diphenhydrAMINE (BENADRYL) capsule 25 mg 03/07/2020 09 :45:00 PM EST 25 mg Oral completed 25 mg, Oral, Once, Thu03/07/20 at 2145, For 1 dose [facility] Medication administered onsite Pravastatin Sodium 20 MG Oral Tablet pravastatin (PRAV ACHOL) tablet 40 mg pravastatin (PRAVACHOL) tablet 40 mg 03/07/2020 09:00:00 PM EST 40 mg Oral active 40 mg, Oral, Nai ry evening, First dose on Thu03/07/20 at 2100, For 30 days [facility] Medication administered onsite Acetaminophen 325 MG Oral Tablet acetaminophen (TYLENO L) tablet 650 mg acetaminophen (TYLENOL) tablet 650 mg 03/07/2020 08:30:00 PM EST 65 0 mg Oral completed 650 mg, Oral, O nce, Thu03/07/20 at 2030, For 1 dose
Maximum daily dose of acetaminophen is 3,000 mg from all sources in 24 hours.
[facility] Medication administered onsite Acetaminophen 325 MG Oral Tablet acetaminophen (TYLENO L) tablet 650 mg acetaminophen (TYLENOL) tablet 650 mg 03/07/2020 11:58:21 AM EST 65 0 mg Oral active 650 mg, Oral, E very 6 hours PRN, Mild Pain (Pain Scale Score 1- 3), Headaches, Starting Thu03/07/20 at 1158, For 30 days
Maximum daily dose of acetaminophen is 3,000 mg from all sources in 24 hours.
[facility] Medication administered onsite lidocaine (XYLOCAINE) 2 % injection 10 mL [id number] 03/07/2020 11:45:00 AM EST 10 mL Infiltration completed 1 0 mL, Infiltration, Once, Thu03/07/20 at 1145, For 1 dose [facility] Medication administered onsite Acyclovir 200 MG Oral Capsule acyclovir (ZOVIRAX) caps ule 400 mg acyclovir (ZOVIRAX) capsule 400 mg 03/07/2020 09:00:00 AM EST 400 mg Oral active 400 mg, Oral, Three Times Daily Standar d, First dose on Thu03/07/20 at 0900, For 54 doses [facility] Medication administered onsite Amlodipine 5 MG Oral Tablet amlodipine (NORVASC) table t 5 mg amlodipine (NORVASC) tablet 5 mg 03/07/2020 09:00:00 AM EST 5 mg Oral active 5 mg, Oral, Daily Standard, First dose on Thu03/07/20 at 0900, For 30 days
Check vital signs before administering
[facility] Medication administered onsite Fluconazole 200 MG Oral Tablet fluconazole (DIFLUCAN) tablet 200 mg fluconazole (DIFLUCAN) tablet 200 mg 03/07/2020 09:00:00 AM EST 200 mg Oral active 200 mg, Oral, Daily Standard, First dose on Thu at 0900, For 18 doses [facility] Medication administered onsite Spironolactone 100 MG Oral Tablet spironolactone (LOVELY CTONE) tablet 100 mg spironolactone (ALDACTONE) tablet 100 mg 03/07/2020 09:00:00 AM EST 100 mg Oral active 100 mg, Oral, Daily Standard, First dose on Thu03/07/20 at 0900, For 30 days [facility] Medication administered onsite carvedilol 3.125 MG Oral Tablet carvedilol (COREG) tab let 12.5 mg carvedilol (COREG) tablet 12.5 mg 03/07/2020 09:00:00 AM EST 12.5 mg Oral aborted 12.5 mg, Oral, 2 Times Daily, First dose on Thu 1 at 0900, For 30 days [facility] Medication administered onsite 24 HR Isosorbide Mononitrate 30 MG Exten ded Release Oral Tablet isosorbide mononitrate (IMDUR) 24 hr tablet 60 mg isosorbide mononitrate (IMDUR) 24 hr tablet 60 mg 03/07/2020 09:00:00 AM EST 60 mg Oral activ e 60 mg, Oral, Daily Standard, First dose on Thu03/07/20 at 0900, For 30 days [facility] Medication administered onsite tiotropium (SPIRIVA RESPIMAT) inhalation spray 2 puff [id number] 03/07/2020 09:00:00 AM EST 2 {puff} Inhalation active 2 pu ff, Inhalation, Daily Standard, First dose on Thu03/07/20 at 0900, For 30 days [facility] Medication administered onsite Albuterol 0.83 MG/ML Inhalant Solution a lbuterol (PROVENTIL) nebulizer solution 2.5 mg albuterol (PROVENTIL) nebulizer solution 2.5 mg 2020 08:15:00 AM EST 2.5 mg Nebulization completed 2 .5 mg, Nebulization, Every 8 hours, First dose on Thu03/07/20 at 0815, For 4 days
For Adults Q8 Hours is Hospital Standard, all orders will be changed to this unless CRISS is selected 'Yes' below.
[facility] Medication administered onsite insulin lispro (HumaLOG) injection LOW DOSE EATING INS ULIN patients 1-8 Units [id number] 03/07/2020 08:00:00 AM EST U Subcutaneous active 1-8 Units, Subcutaneous, Three Times Daily-With Meals, First dose on Thu03/07/20 at 0800, For 30 days
Nursing MUST open the 'SQ Insulin Dosing Charts' Sidebar Report, or, the Patient Summary or Summary Report within the ED.
[facility] Medication administered onsite Levofloxacin 500 MG Oral Tablet levoFLOXacin (LEVAQUIN ) tablet 500 mg levoFLOXacin (LEVAQUIN) tablet 500 mg 03/07/2020 02:16:37 AM EST 50 0 mg Oral completed 500 mg, Oral, D aily Standard, First dose (after last reorder) on Thu03/07/20 at 0900, For 1 day
Administer 2 hours before or 4 hours after oral magnesium, calcium, iron, and sucralfate.
Discouraged Uses: Treatment of UTI
[facility] Medication administered onsite pantoprazole 40 MG Delayed Release Oral Tablet pantoprazole (PROTONIX) EC tablet 40 mg pantoprazole (PROTONIX) EC tablet 40 mg 03/07/2020 12:00:[address] 40 mg Oral active 40 mg, Ora l, Daily Standard, First dose on Thu03/07/20 at 0000, For 30 days
Do not crush or chew
[facility] Medication administered onsite Prochlorperazine 5 MG/ML Injectable Solu tion prochlorperazine (COMPAZINE) injection 5 mg prochlorperazine (COMPAZINE) injection 5 mg 03/06/2020 11:53:38 PM EST 5 mg Intravenous active 5 mg , Intravenous, Every 6 hours PRN, Nausea, Vomiting, Starting Thu03/06/20 at 2353, For 30 days
For IV use: Prepare in 50 mL NS and infuse over 15 minutes.
[facility] Medication administered onsite NaCl infusion 0.9 % [id number] 03/06/2020 11:45:00 PM EST Intravenous aborted at 100 mL/hr, Intrav enous, Continuous, Starting Thu03/06/20 at 2345, For 135 hours [facility] Medication administered onsite Insulin Glargine 100 UNT/ML Injectable S olution insulin glargine (LANTUS) injection 20 Units insulin glargine (LANTUS) injection 20 Units 11:00:00 PM EST 20 U Subcutaneous aborted 20 Units, Subcutaneous, Nightly, First dose on Thu03/06/20 at 2300, For 30 days
For blood glucose less than 70 mg/dL: follow hypoglycemia protocol ( ) and notify provider.For blood glucose values between 70 mg/dL and 100 mg/dL at bedtime: provide snack (15 grams of carbohydrates) with some protein. Administer FULL DOSE of insulin glargine (LANTUS) after snack.Record snack in I&O's. For blood glucose more than 400 mg/dL: notify provider
[facility] Medication administered onsite Glucose 0.417 MG/MG Oral Gel glucose (GLUTOSE) 40 % or al gel 15 g glucose (GLUTOSE) 40 % oral gel 15 g 03/06/2020 10:54:02 PM EST 15 g Oral active 15 g, Oral, PRN, Low blood s ugar, for gluose 55-69 mg/dl and able to take PO, Starting Thu03/06/20 at 2254, For 30 days [facility] Medication administered onsite dextrose 50 % IV solution 25 mL [id number] 03/06/2020 10:54:[address] 25 mL Intravenous active 25 mL, Intrav enous, PRN, Other, blood glucose <55, Starting Thu03/06/20 at 2254, For 30 days
Not for midline administration.
[facility] Medication administered onsite Glucagon 1 MG Injection glucagon (human recombinant) ( GLUCAGEN) injection 1 mg glucagon (human recombinant) (GLUCAGEN) injection 1 mg 03/06/2020 10:54:02 PM EST 1 mg Intramuscular active 1 mg, Intramuscular, PRN, for glucose <55 without IV access, Starting Thu03/06/20 at 2254, For 30 days [facility] Medication administered onsite INQOVI 35-100 MG TABS [id number] 12/14/2019 12:00:00 AM EDT active [facility] Pravastatin Sodium 40 MG Oral Tablet pravastatin (PRAV ACHOL) 40 MG tablet pravastatin (PRAVACHOL) 40 MG tablet 12/06/2019 12:00:00 AM EDT 40 mg Oral active Take 1 tablet (40 mg total) by mouth daily [facility] 7 ACTUAT umeclidinium 0.0625 MG/ACTUAT D ry Powder Inhaler [Incruse] INCRUSE ELLIPTA 62.5 MCG/INH AEPB INCRUSE ELLIPTA 62.5 MCG/INH AEPB 11/28/2019 12:00:00 AM EDT active INHALE 1 PUFF BY MOUTH ONCE DAILY [facility] Pravastatin Sodium 40 MG Oral Tablet Pravastatin Sodium 40 M G 06/28/2019 12:00:00 AM EDT 1.0 {tablet} active Pr avastatin Sodium 40 MG eCW1 ([facility]) Pravastatin Sodium 40 MG Oral Tablet Pravastatin Sodium 40 M G 06/28/2019 12:00:00 AM EDT 1.0 {tablet} active Pr avastatin Sodium 40 MG eCW1 ([facility]) Pravastatin Sodium 40 MG Oral Tablet Pravastatin Sodium 40 M G 06/28/2019 12:00:00 AM EDT 1.0 {tablet} active Pr avastatin Sodium 40 MG eCW1 ([facility]) Pravastatin Sodium 40 MG Oral Tablet Pravastatin Sodium 40 M G 06/28/2019 12:00:00 AM EDT 1.0 {tablet} active Pr avastatin Sodium 40 MG eCW1 ([facility]) Pravastatin Sodium 40 MG Oral Tablet Pravastatin Sodium 40 M G 06/28/2019 12:00:00 AM EDT 1.0 {tablet} active Pr avastatin Sodium 40 MG eCW1 ([facility]) Pravastatin Sodium 40 MG Oral Tablet Pravastatin Sodium 40 M G 06/28/2019 12:00:00 AM EDT active 1 tablet eCW1 ([facility]) Pravastatin Sodium 40 MG Oral Tablet Pravastatin Sodium 40 M G 06/28/2019 12:00:00 AM EDT 1.0 {tablet} active Pr avastatin Sodium 40 MG eCW1 ([facility]) Pravastatin Sodium 40 MG Oral Tablet Pravastatin Sodium 40 M G 06/28/2019 12:00:00 AM EDT 1.0 {tablet} active Pr avastatin Sodium 40 MG eCW1 ([facility]) 24 HR Isosorbide Mononitrate 60 MG Exten ded Release Oral Tablet Isosorbide Mononitrate ER 60 MG Isosorbide Mononitrate ER 60 MG 06/10/2019 12:00:00 AM EDT 1.0 {tablet_in_the_morning} active Isosorbide Mononitrate ER 60 MG eCW1 ([facility]) 24 HR Isosorbide Mononitrate 60 MG Exten ded Release Oral Tablet Isosorbide Mononitrate ER 60 MG Isosorbide Mononitrate ER 60 MG 06/10/2019 12:00:00 AM EDT active 1 tablet in the morning eCW1 ([facility]) 24 HR Isosorbide Mononitrate 60 MG Exten ded Release Oral Tablet Isosorbide Mononitrate ER 60 MG Isosorbide Mononitrate ER 60 MG 06/10/2019 12:00:00 AM EDT 1.0 {tablet_in_the_morning} active Isosorbide Mononitrate ER 60 MG eCW1 ([facility]) 24 HR Isosorbide Mononitrate 60 MG Exten ded Release Oral Tablet Isosorbide Mononitrate ER 60 MG Isosorbide Mononitrate ER 60 MG 06/10/2019 12:00:00 AM EDT 1.0 {tablet_in_the_morning} active Isosorbide Mononitrate ER 60 MG eCW1 ([facility]) 24 HR Isosorbide Mononitrate 60 MG Exten ded Release Oral Tablet Isosorbide Mononitrate ER 60 MG Isosorbide Mononitrate ER 60 MG 06/10/2019 12:00:00 AM EDT 1.0 {tablet_in_the_morning} active Isosorbide Mononitrate ER 60 MG eCW1 ([facility]) 24 HR Isosorbide Mononitrate 60 MG Exten ded Release Oral Tablet Isosorbide Mononitrate ER 60 MG Isosorbide Mononitrate ER 60 MG 06/10/2019 12:00:00 AM EDT active 1 tablet in the morning eCW1 ([facility]) 24 HR Isosorbide Mononitrate 60 MG Exten ded Release Oral Tablet Isosorbide Mononitrate ER 60 MG Isosorbide Mononitrate ER 60 MG 06/10/2019 12:00:00 AM EDT 1.0 {tablet_in_the_morning} active Isosorbide Mononitrate ER 60 MG eCW1 ([facility]) 24 HR Isosorbide Mononitrate 60 MG Exten ded Release Oral Tablet Isosorbide Mononitrate ER 60 MG Isosorbide Mononitrate ER 60 MG 06/10/2019 12:00:00 AM EDT 1.0 {tablet_in_the_morning} active Isosorbide Mononitrate ER 60 MG eCW1 ([facility]) 24 HR Isosorbide Mononitrate 60 MG Exten ded Release Oral Tablet Isosorbide Mononitrate ER 60 MG Isosorbide Mononitrate ER 60 MG 06/10/2019 12:00:00 AM EDT active 1 tablet in the morning eCW1 ([facility]) 24 HR Isosorbide Mononitrate 60 MG Exten ded Release Oral Tablet Isosorbide Mononitrate ER 60 MG Isosorbide Mononitrate ER 60 MG 06/10/2019 12:00:00 AM EDT 1.0 {tablet_in_the_morning} active Isosorbide Mononitrate ER 60 MG eCW1 ([facility]) Shower Chair without wheels UNK 05/27/2019 12:00:00 AM EDT active Shower Chair without wheels eCW1 ([facility]) Wheelchair - Wheelchair - 05/27/2019 12:00:00 AM EDT active as directed eCW1 ([facility]) Shower Chair without wheels UNK 05/27/2019 12:00:00 AM EDT active Shower Chair without wheels eCW1 ([facility]) Wheelchair - Wheelchair - 05/27/2019 12:00:00 AM EDT active as directed eCW1 ([facility]) Shower Chair without wheels UNK 05/27/2019 12:00:00 AM EDT active Shower Chair without wheels eCW1 ([facility]) Wheelchair - Wheelchair - 05/27/2019 12:00:00 AM EDT active Wheelchair - eCW1 ([facility]) Shower Chair without wheels UNK 05/27/2019 12:00:00 AM EDT active Shower Chair without wheels eCW1 ([facility]) Wheelchair - Wheelchair - 05/27/2019 12:00:00 AM EDT active as directed eCW1 ([facility]) Shower Chair without wheels UNK 05/27/2019 12:00:00 AM EDT active Shower Chair without wheels eCW1 ([facility]) Shower Chair without wheels UNK 05/27/2019 12:00:00 AM EDT active as directed eCW1 ([facility]) Wheelchair - Wheelchair - 05/27/2019 12:00:00 AM EDT active Wheelchair - eCW1 ([facility]) Wheelchair - Wheelchair - 05/27/2019 12:00:00 AM EDT active Wheelchair - eCW1 ([facility]) Wheelchair - Wheelchair - 05/27/2019 12:00:00 AM EDT active Wheelchair - eCW1 ([facility]) Shower Chair without wheels UNK 05/27/2019 12:00:00 AM EDT active as directed eCW1 ([facility]) Wheelchair - Wheelchair - 05/27/2019 12:00:00 AM EDT active as directed eCW1 ([facility]) Shower Chair without wheels UNK 05/27/2019 12:00:00 AM EDT active Shower Chair without wheels eCW1 ([facility]) Wheelchair - Wheelchair - 05/27/2019 12:00:00 AM EDT active Wheelchair - eCW1 ([facility]) Wheelchair - Wheelchair - 05/27/2019 12:00:00 AM EDT active Wheelchair - eCW1 ([facility]) Wheelchair - Wheelchair - 05/27/2019 12:00:00 AM EDT active Wheelchair - eCW1 ([facility]) Shower Chair without wheels UNK 05/27/2019 12:00:00 AM EDT active as directed eCW1 ([facility]) Shower Chair without wheels UNK 05/27/2019 12:00:00 AM EDT active as directed eCW1 ([facility]) Shower Chair without wheels UNK 05/27/2019 12:00:00 AM EDT active Shower Chair without wheels eCW1 ([facility]) carbamide peroxide 65 MG/ML Otic Solution [Debrox] Debrox 6. 5 % Debrox 6.5 % 05/16/2019 12:00:00 AM EDT 5.0 {drops_into_affected_ear} active Debrox 6.5 % eCW1 ([facility]) carbamide peroxide 65 MG/ML Otic Solution [Debrox] Debrox 6. 5 % Debrox 6.5 % 05/16/2019 12:00:00 AM EDT active 5 drops into affected ear eCW1 ([facility]) carbamide peroxide 65 MG/ML Otic Solution [Debrox] Debrox 6. 5 % Debrox 6.5 % 05/16/2019 12:00:00 AM EDT 5.0 {drops_into_affected_ear} active Debrox 6.5 % eCW1 ([facility]) carbamide peroxide 65 MG/ML Otic Solution [Debrox] Debrox 6. 5 % Debrox 6.5 % 05/16/2019 12:00:00 AM EDT 5.0 {drops_into_affected_ear} active Debrox 6.5 % W1 ([facility]) carbamide peroxide 65 MG/ML Otic Solution [Debrox] Debrox 6. 5 % Debrox 6.5 % 05/16/2019 12:00:00 AM EDT active 5 drops into affected ear eCW1 ([facility]) carbamide peroxide 65 MG/ML Otic Solution [Debrox] Debrox 6. 5 % Debrox 6.5 % 05/16/2019 12:00:00 AM EDT 5.0 {drops_into_affected_ear} active Debrox 6.5 % eCW1 ([facility]) carbamide peroxide 65 MG/ML Otic Solution [Debrox] Debrox 6. 5 % Debrox 6.5 % 05/16/2019 12:00:00 AM EDT 5.0 {drops_into_affected_ear} active Debrox 6.5 % eCW1 ([facility]) carbamide peroxide 65 MG/ML Otic Solution [Debrox] Debrox 6. 5 % Debrox 6.5 % 05/16/2019 12:00:00 AM EDT active 5 drops into affected ear eCW1 ([facility]) carbamide peroxide 65 MG/ML Otic Solution [Debrox] Debrox 6. 5 % Debrox 6.5 % 05/16/2019 12:00:00 AM EDT 5.0 {drops_into_affected_ear} active Debrox 6.5 % eCW1 ([facility]) carbamide peroxide 65 MG/ML Otic Solution [Debrox] Debrox 6. 5 % Debrox 6.5 % 05/16/2019 12:00:00 AM EDT active 5 drops into affected ear eCW1 ([facility]) Sodium Chloride 0.111 MEQ/ML Nasal [place] Saline Nasal [place] 0.65 % Saline Nasal [place] 0.65 % 05/12/2019 12:00:00 AM EDT activ e 2 sprays in each nostril as needed eCW1 ([facility]) Amoxicillin 875 MG / Clavulanate 125 MG Oral Tablet Amoxicillin-Pot Clavulanate 875-125 MG Amoxicillin-Pot Clavulanate 875-125 MG 04/22/2019 12:00:00 AM ES T active 1 tablet eCW1 ([facility]) Amoxicillin 875 MG / Clavulanate 125 MG Oral Tablet Amoxicillin-Pot Clavulanate 875-125 MG Amoxicillin-Pot Clavulanate 875-125 MG 04/22/2019 12:00:00 AM ES T suspended 1 tablet eCW1 ([facility]) Amoxicillin 875 MG / Clavulanate 125 MG Oral Tablet Amoxicillin-Pot Clavulanate 875-125 MG Amoxicillin-Pot Clavulanate 875-125 MG 04/22/2019 12:00:00 AM ES T suspended 1 tablet eCW1 ([facility]) Allopurinol 100 MG Oral Tablet Allopurinol 100 MG Oral Tablet (ZYLOPRIM) Allopurinol 100 MG Oral Tablet (ZYLOPRIM) 04/10/2019 12:00:00 AM EST 100 mg Oral active Take 1 tablet by [facility] Furosemide 40 MG Oral Tablet Furosemide 40 MG Oral Tab let (LASIX) Furosemide 40 MG Oral Tablet (LASIX) 04/10/2019 12:00:00 AM EST 40 mg Oral aborted Take 1 tablet by mouth daily [facility] 24 HR Isosorbide Mononitrate 60 MG Exten ded Release Oral Tablet Isosorbide Mononitrate ER 60 MG Oral Tablet Extended Release 24 Hour (IMDUR) Isosorbide Mononitrate ER 60 MG Oral Tablet Extended Release 24 Hour (IMDUR) 04/10/2019 12:00:00 AM EST 60 mg Oral active Take 1 t ablet by mouth daily [facility] calcium polycarbophil 625 MG Oral Tablet Calcium Polycarbophil 625 MG Oral Tablet (FIBERCON) Calcium Polycarbophil 625 MG Oral Tablet (FIBERCON) 12:00:00 AM EST 625 mg Oral active Take 1 tablet by mouth daily [facility] Amlodipine 5 MG Oral Tablet amLODIPine Besylate 5 MG O ral Tablet (NORVASC) amLODIPine Besylate 5 MG Oral Tablet (NORVASC) 04/10/2019 12:00:00 AM EST 5 mg Oral active Take 1 tablet by mouth d [facility] Tiotropium [place] Monohydrate 2.5 MCG/A CT Inhalation Aerosol Solution (SPIRIVA RESPIMAT) [id number] 04/10/2019 12:00:00 AM EST 2 {puff} Inhalation aborted Inhale 2 puffs into the lungs daily [facility] Insulin Glargine 100 UNT/ML Injectable S olution Insulin Glargine 100 UNIT/ML Subcutaneous Solution (LANTUS) Insulin Glargine 100 UNIT/ML Subcutaneou s Solution (LANTUS) 04/09/2019 12:00:00 AM EST 24 U Subcutaneous aborted Inject 24 Units into the skin nightly [facility] carvedilol 12.5 MG Oral Tablet Carvedilol 12.5 MG Oral Tablet (COREG) Carvedilol 12.5 MG Oral Tablet (COREG) 04/09/2019 12:00:00 AM EST 12.5 mg Oral aborted Take 1 tablet by mouth Two Times Daily [facility] sennosides, LONG-TERM 8.6 MG Oral Tablet Senna 8.6 MG Oral T ablet Senna 8.6 MG Oral Tablet 04/09/2019 12:00:00 AM EST 2 {tbl} Oral aborted Take 2 tablets by mouth nightly [facility] Pravastatin Sodium 40 MG Oral Tablet Pra vastatin Sodium 40 MG Oral Tablet (PRAVACHOL) Pravastatin Sodium 40 MG Oral Tablet (PRAVACHOL) 04/09 12:00:00 AM EST 40 mg Oral aborted Take 1 tablet b y mouth every evening [facility] insulin lispro 100 UNIT/ML SC injection MEDIUM DOSE EA TING INSULIN patients [id number] 04/09/2019 12:00:00 AM EST U Subcutaneous aborted Patient Instructions: Please refer to Insulin Sliding Scale Instructions in the Discharge Instructions. [facility] Furosemide 20 MG Oral Tablet furosemide (LASIX) tablet 40 mg furosemide (LASIX) tablet 40 mg 04/08/2019 09:00:00 AM EST 40 mg Oral activ e 40 mg, Oral, Daily Standard, First dose (after last modification) on Thu04/08/19 at 0900, For 27 doses [facility] Medication administered onsite Acetaminophen 325 MG Oral Tablet acetaminophen (TYLENO L) tablet 650 mg acetaminophen (TYLENOL) tablet 650 mg 04/07/2019 05:58:02 PM EST 65 0 mg Oral active 650 mg, Oral, E very 6 hours PRN, Mild Pain (Pain Scale Score 1- 3), Starting Ira 04/07/19 at 1758, For 2 days
Maximum daily dose of acetaminophen is 3,000 mg from all sources in 24 hours.
[facility] Medication administered onsite Allopurinol 100 MG Oral Tablet allopurinol (ZYLOPRIM) tablet 100 mg allopurinol (ZYLOPRIM) tablet 100 mg 04/07/2019 09:00:00 AM EST 100 mg Oral active 100 mg, Oral, Daily Standard, First dos e (after last reorder) on Thu04/07/19 at 0900, For 7 days [facility] Medication administered onsite Furosemide 20 MG Oral Tablet furosemide (LASIX) tablet 20 mg furosemide (LASIX) tablet 20 mg 04/07/2019 09:00:00 AM EST 20 mg Oral abort ed 20 mg, Oral, Daily Standard, First dose (after last modification) on Ira 04/07/19 at 0900, For 28 doses [facility] Medication administered onsite Acetaminophen 325 MG Oral Tablet acetaminophen (TYLENO L) tablet 650 mg acetaminophen (TYLENOL) tablet 650 mg 04/07/2019 12:30:00 AM EST 65 0 mg Oral completed 650 mg, Oral, O nce, Ira 04/07/19 at 0030, For 1 dose
Maximum daily dose of acetaminophen is 3,000 mg from all sources in 24 hours.
[facility] Medication administered onsite sennosides, LONG-TERM 8.6 MG Oral Tablet senna 8.6 MG 2 tablet sen na 8.6 MG 2 tablet 04/06/2019 10:00:00 PM EST 2 {tbl} Oral active 2 tablet, Oral, Nightly, First dose on Thu04/06/19 at 2200, For 30 days [facility] Medication administered onsite Insulin Glargine 100 UNT/ML Injectable S olution insulin glargine (LANTUS) injection 24 Units insulin glargine (LANTUS) injection 24 Units 0 10:00:00 PM EST 24 U Subcutaneous active 24 Units, Subcutaneous, Nightly, First dose on Thu04/06/19 at 2200, For 5 doses
For blood glucose less than 70 mg/dL: follow hypoglycemia protocol (CM H-) and notify provider.For blood glucose values between 70 mg/dL and 100 mg/dL at bedtime: provide snack (15 grams of carbohydrates) with some protein. Administer FULL DOSE of insulin glargine (LANTUS) after snack.Record snack in I&O's. For blood glucose more than 400 mg/dL: notify provider
[facility] Medication administered onsite Pravastatin Sodium 20 MG Oral Tablet pravastatin (PRAV ACHOL) tablet 40 mg pravastatin (PRAVACHOL) tablet 40 mg 04/06/2019 09:00:00 PM EST 40 mg Oral active 40 mg, Oral, Nai ry evening, First dose on Thu04/06/19 at 2100, For 30 days [facility] Medication administered onsite Allopurinol 300 MG Oral Tablet allopurinol (ZYLOPRIM) tablet 300 mg allopurinol (ZYLOPRIM) tablet 300 mg 04/06/2019 01:15:00 PM EST 300 mg Oral completed 300 mg, Oral, Once, Thu04/06/19 at 1315, For 1 dose [facility] Medication administered onsite Amlodipine 5 MG Oral Tablet amlodipine (NORVASC) table t 5 mg amlodipine (NORVASC) tablet 5 mg 04/06/2019 09:00:00 AM EST 5 mg Oral active 5 mg, Oral, Daily Standard, First dose on Thu04/06/19 at 0900, For 30 days
Check vital signs before administering
[facility] Medication administered onsite calcium polycarbophil 625 MG Oral Tablet polycarbophil (FIBERCON) tablet 625 mg polycarbophil (FIBERCON) tablet 625 mg 04/06/2019 09:00:00 AM EST 6 25 mg Oral active 625 mg, Oral, D aily Standard, First dose on Thu04/06/19 at 0900, For 30 days [facility] Medication administered onsite carvedilol 6.25 MG Oral Tablet carvedilol (COREG) tabl et 12.5 mg carvedilol (COREG) tablet 12.5 mg 04/06/2019 09:00:00 AM EST 12.5 mg Oral active 12.5 mg, Oral, 2 Times Daily, First dose on Thu04/06/19 at 0900, For 30 days
Check vital signs before administering
[facility] Medication administered onsite 24 HR Isosorbide Mononitrate 30 MG Exten ded Release Oral Tablet isosorbide mononitrate (IMDUR) 24 hr tablet 60 mg isosorbide mononitrate (IMDUR) 24 hr tablet 60 mg 04/06/2019 09:00:00 AM EST 60 mg Oral activ e 60 mg, Oral, Daily Standard, First dose on Thu04/06/19 at 0900, For 30 days
DO NOT CRUSH/CHEW
[facility] Medication administered onsite lidocaine (XYLOCAINE) 2 % injection 10 mL [id number] 04/06/2019 08:30:00 AM EST 10 mL Infiltration completed 1 0 mL, Infiltration, Once, Thu04/06/19 at 0830, For 1 dose [facility] Medication administered onsite Insulin Lispro 100 UNT/ML Injectable [place] ution [Humalog] insulin lispro (HumaLOG) injection MEDIUM DOSE EATING INSULIN patients 1-16 Units insulin lispro (HumaLOG) injection MEDIUM DOSE EATING INSULIN patients 1-16 Units 04/06/2019 08:00:00 AM EST Subcutaneous active 1-16 Units, Subcutaneous, Three Times Daily-With Meals, First dose on Thu04/06/19 at 0800, For 30 days
Nursing MUST open the 'SQ Insulin Dosing Charts' Sidebar Report, or, the Patient Summary or Summary Report within the ED.
[facility] Medication administered onsite 28 ACTUAT tiotropium 0.0025 MG/ACTUAT Me tered Dose Inhaler tiotropium (SPIRIVA RESPIMAT) inhalation spray 2 puff tiotropium (SPIRIVA RESPIMAT) inhalation spray 2 puff 04/06/2019 08:00:00 AM EST 2 {puff} Inhalation acti ve 2 puff, Inhalation, Daily RT, First dose on Thu04/06/19 at 0800, For 30 days [facility] Medication administered onsite Furosemide 20 MG Oral Tablet furosemide (LASIX) tablet 40 mg furosemide (LASIX) tablet 40 mg 04/06/2019 03:15:00 AM EST 40 mg Oral abort ed 40 mg, Oral, Daily Standard, First dose (after last modification) on Thu04/06/19 at 0315, For 30 days [facility] Medication administered onsite calcium gluconate in NaCl 0.9 % infusion 1 g/50 mL [id number] 04/06/2019 03:15:00 AM EST 1 g Intravenous completed 1 g, Intravenous, Administer over 1 Hours, Once, Thu04/06/19 at 0315, For 1 dose
1 g calcium gluconate = 90 mg elemental Ca++ = 4.5 mEq Ca++. Dosed on mg of calcium gluconate.
[facility] Medication administered onsite albuterol (PROVENTIL HFA;VENTOLIN HFA) inhaler 2 puff [id number] 04/05/2019 11:50:41 PM EST 2 {puff} Inhalation active 2 puff, Inhalation, Every 4 hours PRN, Wheezing, Shortness of Breath, Starting Thu04/05/19 at 2350, For 4 days 9 hours
Shake the inhaler well before each spray.
[facility] Medication administered onsite dextrose 50 % IV solution 25 mL [id number] 04/05/2019 11:46:[address] 25 mL Intravenous active 25 mL, Intrav enous, PRN, Other, blood glucose <55, Starting Thu04/05/19 at 2346, For 30 days
Not for midline administration.
[facility] Medication administered onsite Glucose 0.4 MG/MG Oral Gel glucose (GLUTOSE) 40 % oral gel 15 g glucose (GLUTOSE) 40 % oral gel 15 g 04/05/2019 11:46:06 PM EST 15 g Oral active 15 g, Oral, PRN, Low blood s ugar, for gluose 55-69 mg/dl and able to take PO, Starting Thu04/05/19 at 2346, For 30 days [facility] Medication administered onsite Glucagon 1 MG Injection glucagon (human recombinant) ( GLUCAGEN) injection 1 mg glucagon (human recombinant) (GLUCAGEN) injection 1 mg 04/05/2019 11:46:06 PM EST 1 mg Intramuscular active 1 mg, Intramuscular, PRN, for glucose <55 without IV access, Starting Thu04/05/19 at 2346, For 30 days [facility] Medication administered onsite Spironolactone 50 MG Oral Tablet spironolactone (ALDAC TONE) 50 MG tablet spironolactone (ALDACTONE) 50 MG tablet 04/16/2016 12:00:00 AM EST 50 mg Oral aborted Take 1 tablet (50 mg tota l) by mouth daily [facility] Hydralazine Hydrochloride 100 MG Oral Ta blet hydrALAZINE (APRESOLINE) 100 MG tablet hydrALAZINE (APRESOLINE) 100 MG tablet 50 mg Oral aborted Take 50 mg by mouth 2 (two) times a day [facility] Aspirin 81 MG Delayed Release Oral Tablet aspirin EC 8 1 MG EC tablet aspirin EC 81 MG EC tablet 81 mg Oral aborted Take 81 mg by mouth daily [facility] albuterol (PROVENTIL HFA;VENTOLIN HFA) 108 (90 BASE) MCG/ACT inhale r [id number] 2 {puff} Inhalation aborted Inhale 2 puffs every 4 (four) hours as needed for wheezing or shortness of breath [facility] Acetaminophen 500 MG Oral Tablet Acetaminophen 500 MG Oral Tablet (TYLENOL) Acetaminophen 500 MG Oral Tablet (TYLENOL) 1000 mg Oral aborted Take 1,000 mg by mouth every 6 (six) hours as needed for Pain [facility] clopidogrel 75 MG Oral Tablet clopidogrel (PLAVIX) 75 MG tablet clopidogrel (PLAVIX) 75 MG tablet 75 mg Oral aborted Ta ke 75 mg by mouth daily [facility] Furosemide 40 MG Oral Tablet Furosemide 40 MG Oral Tab let (LASIX) Furosemide 40 MG Oral Tablet (LASIX) 40 mg Oral aborted Take 40 mg by mouth Two Times Daily [facility] Basaglar KwikPen 100 UNIT/ML Subcutaneou s Solution Pen-injector (insulin glargine) [id number] 30 U Subcutaneous aborted Inject 30 Units into the skin nightly [facility] Acyclovir 400 MG Oral Tablet Acyclovir 400 MG Oral Tab let (ZOVIRAX) Acyclovir 400 MG Oral Tablet (ZOVIRAX) 400 mg Oral aborted Take 400 mg by mouth Two Times Daily [facility] Inqovi 35-100 MG Oral Tablet (Decitabine-Cedazuridine) [id number] 1 {tbl} Oral aborted Take 1 tablet by mouth daily for 5 days every 28 day cycle. [facility] Insurance Providers Payer name Policy type / Coverage type Policy ID Covered constitution party ID Covered constitution party's relationship to wiseman Policy Wiseman Plan Information MEDICARE [id number] SP [id number] [facility] [id number] SP [id number] [facility] [id number] SP [id number] MEDICARE PART A -O/P [id number] 18 [id number] MEDICARE A [id number] Self [id number] MVP I [id number] Self [id number] MEDICAID [id number] MEDICARE [id number] Shira [id number] [facility] MEDICAID [id number] Shira [id number] [facility] [id number] SP [id number] [facility] HE[facility] CARE O [id number] S [id number] ANSI-Commercial [id number] ANSI-Not a Secondary Insurance [id number] ANSI-Not a Secondary Insurance [id number] ANSI-Commercial [id number] ANSI-Not a Secondary Insurance [id number] ANSI-Commercial [id number] [facility] Health Maintenance Organization (O) [id number] Self [id number] ANSI-Commercial [id number] ANSI-Not a Secondary Insurance [id number] ANSI-Not a Secondary Insurance [id number] ANSI-Commercial [id number] ANSI-Not a Secondary Insurance [id number] ANSI-Commercial [id number] ANSI-Not a Secondary Insurance [id number] ANSI-Commercial [id number] ANSI-Commercial [id number] ANSI-Not a Secondary Insurance [id number] ANSI-Commercial [id number] ANSI-Not a Secondary Insurance [id number] ANSI-Not a Secondary Insurance [id number] ANSI-Commercial [id number] ANSI-Commercial [id number] ANSI-Not a Secondary Insurance [id number] MVP MEDICAID PI PI ANSI-Commercial [id number] ANSI-Not a Secondary Insurance [id number] ANSI-Commercial [id number] ANSI-Not a Secondary Insurance [id number] ANSI-Not a Secondary Insurance [id number] ANSI-Commercial [id number] ANSI-Commercial [id number] ANSI-Not a Secondary Insurance [id number] ANSI-Commercial [id number] ANSI-Not a Secondary Insurance [id number] [place] [id number] [id number] SP [id number] [employer] [id number] SP [id number] [place]/307 [id number] SP [id number] [place] [employer] B [id number] S W [id number] [place] [place]/307 [id number] SP [id number] [employer] [place]/307 [id number] SP [id number] [employer] [id number] Shira W [id number] [employer] [place]/307 [id number] SP [id number] [employer] [place]/307 [id number] SP [id number] [employer] [place]/307 [id number] SP [id number] [employer] [place] [id number] SP [id number] Problems, Conditions, and Diagnoses Code Display Name Description Problem Type Effective Dates Data Source(s) N18.4 [id number] CKD (chronic kidney disease) stage 4, GFR 15-29 ml/min Problem 12/23/2019 12:00:00 AM EST eCW1 ([facility]) I65.23 [id number] Bilateral carotid artery stenosis Prob elaine 12/23/2019 12:00:00 AM EST eCW1 ([facility]) I50.30 [id number] Diastolic CHF with p reserved left ventricular function, NYHA class 2 Problem 12/23/2019 12:00:00 AM EST eCW1 ([facility]) Z95.810 Automatic implantable cardiac defibrilla tor in situ History of implantable cardioverter-defibrillator (ICD) placement Problem 12/23/2019 12:00:00 AM EST eCW1 ([facility]) Z98.61 [id number] Coronary angioplasty status Problem 12/23/19 12:00:00 AM EST eCW1 ([facility]) I10 14008010 Essential hypertension Problem 12/23/2019 12 :00:00 AM EST eCW1 ([facility]) C93.10 CMML (chronic myelomonocytic leukemia) C MML (chronic myelomonocytic leukemia) [id number] 12/21/2019 12:00:00 AM EST [facility] Z98.61 Coronary angioplasty status Coronary angioplasty statu s [id number] 12/21/2019 12:00:00 AM [facility] E78.5 Hyperlipidemia Hyperlipidemia 61714735 12/21/2019 12:00: 00 AM [facility] I50.9 Congestive heart failure Congestive heart failure 6457 2001 12/21/2019 12:00:00 AM [facility] D69.6 [id number] Thrombocytopenia Problem 06/07/2019 12:00:00 AM EDT eCW1 ([facility]) D69.6 823538911 Thrombocytopenia Problem 06/07/2019 12:00:00 AM EDT eCW1 ([facility]) C93.10 [id number] 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 Problem 05/27/2019 12:00:00 AM EDT eCW1 ([facility]) C93.10 [id number] 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 Problem 05/27/2019 12:00:00 AM EDT eCW1 ([facility]) 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 0 12:00:00 AM EDT eCW1 ([facility]) D61.82 7672541 Leukoerythroblastic anemia Problem 0 12:00:00 AM EDT eCW1 ([facility]) 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 Diagnosis 03/08/2020 03:31:00 PM [facility] acute leukemia acute leukemia Diagnosis 03/06/2020 10:19: 00 PM [facility] 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 Surgeries/Procedures Procedure Description Date Indications Data Source(s) BLOOD COUNT PLATELET AUTOMATED PLATELET COUNT Routine 021 3:41 PM EST 03/18/2020 03:41:[address] [facility] TRANSFUSE PLATELET HLA MATCHED (ONCE) TRANSFUSE PLATELET HL A MATCHED (ONCE) Routine 03/18/2020 3:25 PM EST 03/18/2020 03:25:49 PM [facility] POCT GLUCOSE, DOCKED POCT GLUCOSE, DOCKED Routine 03/18/2020 11:46 AM EST 03/18/2020 11:46:00 AM [facility] PREPARE HLA PLATELET MATCHED PREPARE HLA PLATELET MATCHED Lili ne 03/18/2020 9:41 AM EST 03/18/2020 09:41:00 AM [facility] BLOOD COUNT COMPLETE AUTOMATED CBC Routine 03/18/2020 9:01 A M EST 03/18/2020 09:01:00 AM [facility] TRANSFUSE RBC (ONCE) TRANSFUSE RBC (ONCE) STAT 03/18/2020 7:58 AM EST 03/18/2020 07:58:19 AM [facility] POCT GLUCOSE, DOCKED POCT GLUCOSE, DOCKED Routine 03/18/2020 7:37 AM EST 03/18/2020 07:37:00 AM [facility] BLOOD COUNT COMPLETE AUTO&AUTO DIFRNTL WBC COUNT CBC AND DIFFER ENTIAL Routine 03/18/2020 1:12 AM EST 03/18/2020 01:12:00 AM [facility] PHOSPHORUS INORGANIC PHOSPHORUS LEVEL Routine 03/18/2020 1:[address] 03/18/2020 01:12:00 AM [facility] MAGNESIUM MAGNESIUM LEVEL Routine 03/18/2020 1:12 AM EST 03/18/2020 01:12:00 AM [facility] BASIC METABOLIC PANEL CALCIUM TOTAL BASIC METABOLIC PANEL Routi ne 03/18/2020 1:12 AM EST 03/18/2020 01:12:00 AM [facility] GLUCOSE QUANTITATIVE BLOOD XCPT REAGENT STRIP POCT GLUCOSE, DOC KED Routine 03/17/2020 9:14 PM EST 03/17/2020 09:14:00 PM [facility] GLUCOSE QUANTITATIVE BLOOD XCPT REAGENT STRIP POCT GLUCOSE, DOC KED Routine 03/17/2020 4:43 PM EST 03/17/2020 04:43:00 PM [facility] BLOOD COUNT PLATELET AUTOMATED PLATELET COUNT Routine 021 4:03 PM EST 03/17/2020 04:03:[address] [facility] TRANSFUSE PLATELET HLA MATCHED (ONCE) TRANSFUSE PLATELET HL A MATCHED (ONCE) Routine 03/17/2020 3:32 PM EST 03/17/2020 03:32:15 PM [facility] GLUCOSE QUANTITATIVE BLOOD XCPT REAGENT STRIP POCT GLUCOSE, DOC KED Routine 03/17/2020 11:33 AM EST 03/17/2020 11:33:00 AM [facility] TRANSFUSE RBC (ONCE) TRANSFUSE RBC (ONCE) STAT 03/17/2020 11:27 AM EST 03/17/2020 11:27:56 AM [facility] PREPARE HLA PLATELET MATCHED PREPARE HLA PLATELET MATCHED Routi ne 03/17/2020 10:25 AM EST 03/17/2020 10:25:00 AM [facility] GLUCOSE QUANTITATIVE BLOOD XCPT REAGENT STRIP POCT GLUCOSE, DOC KED Routine 03/17/2020 7:36 AM EST 03/17/2020 07:36:00 AM [facility] XR CHEST FRONTAL ONLY 76897 XR CHEST FRONTAL ONLY 61220 Routine 03/17/2020 3:22 AM EST 03/17/2020 03:22:00 AM [facility] URNLS DIP STICK/TABLET REAGENT AUTO MICROSCOPY URINALYSIS W ITH MICROSCOPIC Routine 03/17/2020 1:08 AM EST 03/17/2020 01:08:00 AM [facility] BLOOD COUNT COMPLETE AUTOMATED CBC AND DIFFERENTIAL Routine 03/17/2020 1:08 AM EST 03/17/2020 01:08:00 AM [facility] BLOOD TYPING ABO TYPE AND SCREEN Routine 03/17/2020 1:08 AM EST 03/17/2020 01:08:00 AM [facility] PHOSPHORUS INORGANIC PHOSPHORUS LEVEL Routine 03/17/2020 1:[address] 03/17/2020 01:08:00 AM [facility] MAGNESIUM MAGNESIUM LEVEL Routine 03/17/2020 1:08 AM EST 03/17/2020 01:08:00 AM [facility] BASIC METABOLIC PANEL CALCIUM TOTAL BASIC METABOLIC PANEL Routi ne 03/17/2020 1:08 AM EST 03/17/2020 01:08:00 AM [facility] CULTURE BACTERIAL BLOOD AEROBIC W/ID ISOLATES BLOOD CULTURE R outine 03/17/2020 1:00 AM EST 03/17/2020 01:00:00 AM [facility] CULTURE BACTERIAL BLOOD AEROBIC W/ID ISOLATES BLOOD CULTURE R outine 03/17/2020 1:00 AM EST 03/17/2020 01:00:00 AM [facility] CULTURE BACTERIAL BLOOD AEROBIC W/ID ISOLATES BLOOD CULTURE R outine 03/17/2020 1:00 AM EST 03/17/2020 01:00:00 AM [facility] GLUCOSE QUANTITATIVE BLOOD XCPT REAGENT STRIP POCT GLUCOSE, DOC CLAUDIOD Routine 03/16/2020 9:56 PM EST 03/16/2020 09:56:00 PM [facility] GLUCOSE QUANTITATIVE BLOOD XCPT REAGENT STRIP POCT GLUCOSE, DOC KED Routine 03/16/2020 4:28 PM EST 03/16/2020 04:28:00 PM [facility] GLUCOSE QUANTITATIVE BLOOD XCPT REAGENT STRIP POCT GLUCOSE, DOC KED Routine 03/16/2020 11:29 AM EST 03/16/2020 11:29:00 AM [facility] GLUCOSE QUANTITATIVE BLOOD XCPT REAGENT STRIP POCT GLUCOSE, DOC KED Routine 03/16/2020 8:01 AM EST 03/16/2020 08:01:00 AM [facility] BLOOD COUNT COMPLETE AUTOMATED CBC AND DIFFERENTIAL Routine 03/16/2020 12:25 AM EST 03/16/2020 12:25:00 AM [facility] PHOSPHORUS INORGANIC PHOSPHORUS LEVEL Routine 03/16/2020 12:[address] 03/16/2020 12:25:00 AM [facility] MAGNESIUM MAGNESIUM LEVEL Routine 03/16/2020 12:25 AM EST 03/16/2020 12:25:00 AM [facility] BASIC METABOLIC PANEL CALCIUM TOTAL BASIC METABOLIC PANEL Routi ne 03/16/2020 12:25 AM EST 03/16/2020 12:25:00 AM [facility] GLUCOSE QUANTITATIVE BLOOD XCPT REAGENT STRIP POCT GLUCOSE, DOC KED Routine 03/15/2020 10:02 PM EST 03/15/2020 10:02:00 PM [facility] GLUCOSE QUANTITATIVE BLOOD XCPT REAGENT STRIP POCT GLUCOSE, DOC KED Routine 03/15/2020 4:28 PM EST 03/15/2020 04:28:00 PM [facility] BLOOD COUNT COMPLETE AUTOMATED CBC AND DIFFERENTIAL Timed 03/15/2020 11:48 AM EST 03/15/2020 11:48:00 AM [facility] GLUCOSE QUANTITATIVE BLOOD XCPT REAGENT STRIP POCT GLUCOSE, DOC KED Routine 03/15/2020 11:42 AM EST 03/15/2020 11:42:00 AM [facility] GLUCOSE QUANTITATIVE BLOOD XCPT REAGENT STRIP POCT GLUCOSE, DOC KED Routine 03/15/2020 7:53 AM EST 03/15/2020 07:53:00 AM [facility] BLOOD COUNT COMPLETE AUTOMATED CBC AND DIFFERENTIAL Timed 03/15/2020 12:16 AM EST 03/15/2020 12:16:00 AM [facility] PHOSPHORUS INORGANIC PHOSPHORUS LEVEL Routine 03/15/2020 12:[address] 03/15/2020 12:16:00 AM [facility] MAGNESIUM MAGNESIUM LEVEL Routine 03/15/2020 12:16 AM EST 03/15/2020 12:16:00 AM [facility] BASIC METABOLIC PANEL CALCIUM TOTAL BASIC METABOLIC PANEL Routi ne 03/15/2020 12:16 AM EST 03/15/2020 12:16:00 AM [facility] GLUCOSE QUANTITATIVE BLOOD XCPT REAGENT STRIP POCT GLUCOSE, DOC KED Routine 03/14/2020 11:00 PM EST 03/14/2020 11:00:00 PM [facility] TRANSFUSE RBC (ONCE) TRANSFUSE RBC (ONCE) STAT 03/14/2020 10:00 PM EST 03/14/2020 10:00:04 PM [facility] TRANSFUSE PLATELET HLA MATCHED (ONCE) TRANSFUSE PLATELET HL A MATCHED (ONCE) Routine 03/14/2020 7:47 PM EST 03/14/2020 07:47:03 PM [facility] GLUCOSE QUANTITATIVE BLOOD XCPT REAGENT STRIP POCT GLUCOSE, DOC KED Routine 03/14/2020 4:35 PM EST 03/14/2020 04:35:00 PM [facility] BLOOD COUNT COMPLETE AUTOMATED CBC AND DIFFERENTIAL Timed 03/14/2020 4:03 PM EST 03/14/2020 04:03:00 PM [facility] GLUCOSE QUANTITATIVE BLOOD XCPT REAGENT STRIP POCT GLUCOSE, DOC KED Routine 03/14/2020 3:04 PM EST 03/14/2020 03:04:00 PM [facility] UPPER GI ENDOSCOPY W/CONTROL, BLEEDING, ANY METHOD UP PER GI ENDOSCOPY W/CONTROL, BLEEDING, ANY METHOD 03/14/2020 2:06 PM EST GI bleeding -possibly Small GI bleeding 03/14/2020 02: 06:00 PM EST - 03/14/2020 03:18:00 PM [facility] SMALL INTESTINAL ENDO/ENTEROSCOPY, > 2ND PORTION DUODENUM, NOT W/ILEUM DX W/WO SPECIMEN (SEP PROC) SMALL INTESTINAL ENDO/ENTEROSCOPY, > 2ND PORTION DUODENUM, NOT W/ILEUM DX W/WO SPECIMEN (SEP PROC) 03/14/2020 2:06 PM EST GI bleeding -possibly Small GI bleeding 03/14/2020 02: 06:00 PM EST - 03/14/2020 03:18:00 PM [facility] GLUCOSE QUANTITATIVE BLOOD XCPT REAGENT STRIP POCT GLUCOSE, DOC KED Routine 03/14/2020 11:40 AM EST 03/14/2020 11:40:00 AM [facility] GLUCOSE QUANTITATIVE BLOOD XCPT REAGENT STRIP POCT GLUCOSE, DOC KED Routine 03/14/2020 7:55 AM EST 03/14/2020 07:55:00 AM [facility] PREPARE HLA PLATELET MATCHED PREPARE HLA PLATELET MATCHED Lili ramirez 03/14/2020 5:22 AM EST 03/14/2020 05:22:00 AM [facility] BLOOD COUNT PLATELET AUTOMATED PLATELET COUNT Routine 021 4:58 AM EST 03/14/2020 04:58:[address] [facility] TRANSFUSE PLATELET HLA MATCHED (ONCE) TRANSFUSE PLATELET HL A MATCHED (ONCE) Routine 03/14/2020 4:11 AM EST 03/14/2020 04:11:05 AM [facility] BLOOD COUNT COMPLETE AUTOMATED CBC AND DIFFERENTIAL Timed 03/14/2020 12:29 AM EST 03/14/2020 12:29:00 AM [facility] PHOSPHORUS INORGANIC PHOSPHORUS LEVEL Routine 03/14/2020 12:[address] 03/14/2020 12:29:00 AM [facility] MAGNESIUM MAGNESIUM LEVEL Routine 03/14/2020 12:29 AM EST 03/14/2020 12:29:00 AM [facility] BASIC METABOLIC PANEL CALCIUM TOTAL BASIC METABOLIC PANEL Routi ne 03/14/2020 12:29 AM EST 03/14/2020 12:29:00 AM [facility] SMALL BOWEL ENTEROSCOPY SMALL BOWEL ENTEROSCOPY 03/14/2020 12:00 AM EST 03/14/2020 12:00:00 AM [facility] GLUCOSE QUANTITATIVE BLOOD XCPT REAGENT STRIP POCT GLUCOSE, DOC KED Routine 03/13/2020 9:29 PM EST 03/13/2020 09:29:00 PM [facility] CULTURE BACTERIAL BLOOD AEROBIC W/ID ISOLATES BLOOD CULTURE R outine 03/13/2020 8:41 PM EST 03/13/2020 08:41:00 PM [facility] CULTURE BACTERIAL BLOOD AEROBIC W/ID ISOLATES BLOOD CULTURE R outine 03/13/2020 8:27 PM EST 03/13/2020 08:27:00 PM [facility] CULTURE BACTERIAL BLOOD AEROBIC W/ID ISOLATES BLOOD CULTURE R outine 03/13/2020 8:25 PM EST 03/13/2020 08:25:00 PM [facility] URNLS DIP STICK/TABLET REAGENT AUTO MICROSCOPY URINALYSIS W ITH MICROSCOPIC Routine 03/13/2020 8:25 PM EST 03/13/2020 08:25:00 PM [facility] XR CHEST FRONTAL ONLY 63067 XR CHEST FRONTAL ONLY 62213 Routine 03/13/2020 8:09 PM EST 03/13/2020 08:09:06 PM [facility] GLUCOSE QUANTITATIVE BLOOD XCPT REAGENT STRIP POCT GLUCOSE, DOC KED Routine 03/13/2020 4:34 PM EST 03/13/2020 04:34:00 PM [facility] PREPARE HLA PLATELET MATCHED PREPARE HLA PLATELET MATCHED Routi ne 03/13/2020 2:24 PM EST 03/13/2020 02:24:00 PM [facility] LAB RESULTS (OUTSIDE/HISTORICAL) LAB RESULTS (OUTSIDE/HISTORICA L) 03/13/2020 1:03 PM EST 03/13/2020 01:03:31 PM [facility] GLUCOSE QUANTITATIVE BLOOD XCPT REAGENT STRIP POCT GLUCOSE, DOC KED Routine 03/13/2020 11:38 AM EST 03/13/2020 11:38:00 AM [facility] BLOOD COUNT COMPLETE AUTOMATED CBC AND DIFFERENTIAL Timed 03/13/2020 10:19 AM EST 03/13/2020 10:19:00 AM [facility] GLUCOSE QUANTITATIVE BLOOD XCPT REAGENT STRIP POCT GLUCOSE, DOC KED Routine 03/13/2020 7:41 AM EST 03/13/2020 07:41:00 AM [facility] TRANSFUSE RBC (ONCE) TRANSFUSE RBC (ONCE) Routine 03/13/2020 3:50 AM EST 03/13/2020 03:50:39 AM [facility] PHOSPHORUS INORGANIC PHOSPHORUS LEVEL Routine 03/13/2020 1:[address] 03/13/2020 01:35:00 AM [facility] MAGNESIUM MAGNESIUM LEVEL Routine 03/13/2020 1:35 AM EST 03/13/2020 01:35:00 AM [facility] BASIC METABOLIC PANEL CALCIUM TOTAL BASIC METABOLIC PANEL Routi ne 03/13/2020 1:35 AM EST 03/13/2020 01:35:00 AM [facility] PREPARE PLATELET PHERESIS PREPARE PLATELET PHERESIS Routine 03/13/2020 12:04 AM EST 03/13/2020 12:04:00 AM [facility] BLOOD COUNT COMPLETE AUTO&AUTO DIFRNTL WBC COUNT CBC AND DIFFER ENTIAL Timed 03/12/2020 10:07 PM EST 03/12/2020 10:07:00 PM [facility] TRANSFUSE PLATELET PHERESIS (ONCE) TRANSFUSE PLATELET PHERESIS (ONCE) Routine 03/12/2020 9:40 PM EST 03/12/2020 09:40:45 PM [facility] GLUCOSE QUANTITATIVE BLOOD XCPT REAGENT STRIP POCT GLUCOSE, DOC KED Routine 03/12/2020 9:17 PM EST 03/12/2020 09:17:00 PM [facility] TRANSFUSE RBC (ONCE) TRANSFUSE RBC (ONCE) STAT 03/12/2020 5:23 PM EST 03/12/2020 05:23:27 PM [facility] GLUCOSE QUANTITATIVE BLOOD XCPT REAGENT STRIP POCT GLUCOSE, DOC KED Routine 03/12/2020 4:42 PM EST 03/12/2020 04:42:00 PM [facility] PREPARE PLATELET PHERESIS PREPARE PLATELET PHERESIS Routine 03/12/2020 3:56 PM EST 03/12/2020 03:56:00 PM [facility] BLOOD COUNT PLATELET AUTOMATED PLATELET COUNT Routine 021 2:57 PM EST 03/12/2020 02:57:[address] [facility] TRANSFUSE PLATELET PHERESIS (ONCE) TRANSFUSE PLATELET PHERESIS (ONCE) Routine 03/12/2020 2:45 PM EST 03/12/2020 02:45:05 PM [facility] GLUCOSE QUANTITATIVE BLOOD XCPT REAGENT STRIP POCT GLUCOSE, DOC KED Routine 03/12/2020 12:21 PM EST 03/12/2020 12:21:00 PM [facility] ACUTE GASTROINTESTINAL BLOOD LOSS IMAGING NM GI BLOOD LOSS IMAGING 33640 Routine 03/12/2020 11:58 AM EST 03/12/2020 11:58:33 AM [facility] SERUM SCREENING % REACTIVE ANTIBODY QUICK METH HLA ANTIBODY ID SCREEN Routine 03/12/2020 9:31 AM EST 03/12/2020 09:31:00 AM [facility] PREPARE PLATELET PHERESIS PREPARE PLATELET PHERESIS Routine 03/12/2020 8:52 AM EST 03/12/2020 08:52:00 AM [facility] GLUCOSE QUANTITATIVE BLOOD XCPT REAGENT STRIP POCT GLUCOSE, DOC KED Routine 03/12/2020 7:43 AM EST 03/12/2020 07:43:00 AM [facility] BLOOD COUNT COMPLETE AUTOMATED CBC AND DIFFERENTIAL Timed 03/12/2020 5:07 AM EST 03/12/2020 05:07:00 AM [facility] PHOSPHORUS INORGANIC PHOSPHORUS LEVEL Routine 03/12/2020 5:[address] 03/12/2020 05:07:00 AM [facility] MAGNESIUM MAGNESIUM LEVEL Routine 03/12/2020 5:07 AM EST 03/12/2020 05:07:00 AM [facility] COMPREHENSIVE METABOLIC PANEL COMPREHENSIVE METABOLIC PANEL Eduardo ed 03/12/2020 5:07 AM EST 03/12/2020 05:07:00 AM [facility] TRANSFUSE RBC (ONCE) TRANSFUSE RBC (ONCE) STAT 03/11/2020 10:51 PM EST 03/11/2020 10:51:10 PM [facility] GLUCOSE QUANTITATIVE BLOOD XCPT REAGENT STRIP POCT GLUCOSE, DOC SAMANTHA Routine 03/11/2020 9:35 PM EST 03/11/2020 09:35:00 PM [facility] BLOOD COUNT COMPLETE AUTOMATED CBC AND DIFFERENTIAL Timed 03/11/2020 4:45 PM EST 03/11/2020 04:45:00 PM [facility] GLUCOSE QUANTITATIVE BLOOD XCPT REAGENT STRIP POCT GLUCOSE, DOC SAMANTHA Routine 03/11/2020 4:34 PM EST 03/11/2020 04:34:00 PM [facility] TRANSFUSE PLATELET PHERESIS (ONCE) TRANSFUSE PLATELET PHERESIS (ONCE) Routine 03/11/2020 4:09 PM EST 03/11/2020 04:09:58 PM [facility] PREPARE PLATELET PHERESIS PREPARE PLATELET PHERESIS Routine 03/11/2020 1:56 PM EST 03/11/2020 01:56:00 PM [facility] BLOOD OCCULT PEROXIDASE ACTV QUAL FECES 1 DETER FECAL OCCULT BLOOD, UPPER GI (HEMOCCULT-SENSA) Routine 03/11/2020 11:49 AM EST 03/11/2020 11:49:00 AM [facility] GLUCOSE QUANTITATIVE BLOOD XCPT REAGENT STRIP POCT GLUCOSE, DOC SAMANTHA Routine 03/11/2020 11:40 AM EST 03/11/2020 11:40:00 AM [facility] GLUCOSE QUANTITATIVE BLOOD XCPT REAGENT STRIP POCT GLUCOSE, DOC KEJair Routine 03/11/2020 7:37 AM EST 03/11/2020 07:37:00 AM [facility] TRANSFUSE RBC (ONCE) TRANSFUSE RBC (ONCE) STAT 03/11/2020 3:12 AM EST 03/11/2020 03:12:46 AM [facility] BLOOD TYPING ABO TYPE AND SCREEN STAT 03/11/2020 1:20 AM EST 03/11/2020 01:20:00 AM [facility] CULTURE BCT ISOL&PRSMPTV ID ISOLATE EA URINE URINE CULTURE Ro utine 03/11/2020 12:44 AM EST 03/11/2020 12:44:00 AM [facility] BLOOD COUNT COMPLETE AUTOMATED CBC AND DIFFERENTIAL Routine 03/11/2020 12:28 AM EST 03/11/2020 12:28:00 AM [facility] PHOSPHORUS INORGANIC PHOSPHORUS LEVEL Routine 03/11/2020 12:[address] 03/11/2020 12:28:00 AM [facility] MAGNESIUM MAGNESIUM LEVEL Routine 03/11/2020 12:28 AM EST 03/11/2020 12:28:00 AM [facility] DRUG SCREEN QUALITATIVE VANCOMYCIN VANCOMYCIN, RANDOM Routine 03/11/2020 12:28 AM EST 03/11/2020 12:28:00 AM [facility] BASIC METABOLIC PANEL CALCIUM TOTAL BASIC METABOLIC PANEL Timed 03/11/2020 12:28 AM EST 03/11/2020 12:28:00 AM [facility] GLUCOSE QUANTITATIVE BLOOD XCPT REAGENT STRIP POCT GLUCOSE, DOC KED Routine 03/10/2020 9:05 PM EST 03/10/2020 09:05:00 PM [facility] CUL PRSMPTV PTHGNC ORGANISM SCRN W/COLONY ESTIMJ MRSA CULTURE Routine 03/10/2020 7:05 PM EST 03/10/2020 07:05:00 PM [facility] XR CHEST FRONTAL ONLY [id number] XR CHEST FRONTAL ONLY [id number] Routine 03/10/2020 6:51 PM EST 03/10/2020 06:51:54 PM [facility] CULTURE BACTERIAL BLOOD AEROBIC W/ID ISOLATES BLOOD CULTURE R outine 03/10/2020 6:45 PM EST 03/10/2020 06:45:00 PM [facility] CULTURE BACTERIAL BLOOD AEROBIC W/ID ISOLATES BLOOD CULTURE R outine 03/10/2020 6:45 PM EST 03/10/2020 06:45:00 PM [facility] GLUCOSE QUANTITATIVE BLOOD XCPT REAGENT STRIP POCT GLUCOSE, DOC KED Routine 03/10/2020 4:57 PM EST 03/10/2020 04:57:00 PM [facility] TRANSFUSE RBC (ONCE) TRANSFUSE RBC (ONCE) STAT 03/10/2020 1:38 PM EST 03/10/2020 01:38:04 PM [facility] GLUCOSE QUANTITATIVE BLOOD XCPT REAGENT STRIP POCT GLUCOSE, DOC KED Routine 03/10/2020 11:26 AM EST 03/10/2020 11:26:00 AM [facility] BLOOD COUNT PLATELET AUTOMATED PLATELET COUNT Routine 9:00 AM EST 03/10/2020 09:00:[address] [facility] TRANSFUSE PLATELET PHERESIS (ONCE) TRANSFUSE PLATELET PHERESIS (ONCE) Routine 03/10/2020 8:47 AM EST 03/10/2020 08:47:13 AM [facility] GLUCOSE QUANTITATIVE BLOOD XCPT REAGENT STRIP POCT GLUCOSE, DOC KED Routine 03/10/2020 7:54 AM EST 03/10/2020 07:54:00 AM [facility] PREPARE PLATELET PHERESIS PREPARE PLATELET PHERESIS Routine 03/10/2020 2:17 AM EST 03/10/2020 02:17:00 AM [facility] [facility] BLOOD COUNT COMPLETE AUTOMATED CBC AND DIFFERENTIAL Routine 03/10/2020 12:23 AM EST 03/10/2020 12:23:00 AM [facility] PHOSPHORUS INORGANIC PHOSPHORUS LEVEL Routine 03/10/2020 12:[address] 03/10/2020 12:23:00 AM [facility] MAGNESIUM MAGNESIUM LEVEL Routine 03/10/2020 12:23 AM EST 03/10/2020 12:23:00 AM [facility] BASIC METABOLIC PANEL CALCIUM TOTAL BASIC METABOLIC PANEL Timed 03/10/2020 12:23 AM EST 03/10/2020 12:23:00 AM [facility] GLUCOSE QUANTITATIVE BLOOD XCPT REAGENT STRIP POCT GLUCOSE, DOC KED Routine 03/09/2020 9:16 PM EST 03/09/2020 09:16:00 PM [facility] GLUCOSE QUANTITATIVE BLOOD XCPT REAGENT STRIP POCT GLUCOSE, DOC KED Routine 03/09/2020 4:45 PM EST 03/09/2020 04:45:00 PM [facility] BLOOD COUNT COMPLETE AUTOMATED CBC AND DIFFERENTIAL Routine 03/09/2020 11:51 AM EST 03/09/2020 11:51:00 AM [facility] FOLIC ACID SERUM FOLATE Routine 03/09/2020 11:51 AM EST 03/09/2020 11:51:00 AM [facility] GLUCOSE QUANTITATIVE BLOOD XCPT REAGENT STRIP POCT GLUCOSE, DOC KED Routine 03/09/2020 11:32 AM EST 03/09/2020 11:32:00 AM [facility] BLOOD COUNT RETICULOCYTE AUTOMATED RETICULOCYTES Routine 03/09/2020 9:40 AM EST 03/09/2020 09:40:00 AM [facility] CYANOCOBALAMIN VITAMIN B-12 VITAMIN B12 Routine 03/09/2020 9:40 AM EST 03/09/2020 09:40:00 AM [facility] THROMBOPLASTIN TIME PARTIAL PLASMA/WHOLE BLOOD PARTIA L THROMBOPLASTIN TIME (PTT) Routine 03/09/2020 9:40 AM EST 03/09/2020 09:40 :00 AM [facility] PROTHROMBIN TIME PROTIME INR Routine 03/09/2020 9:40 AM EST 03/09/2020 09:40:00 AM [facility] FIBRINOGEN ACTIVITY FIBRINOGEN LEVEL Routine 03/09/2020 9:40 AM ES T 03/09/2020 09:40:00 AM [facility] TRANSFUSE RBC (ONCE) TRANSFUSE RBC (ONCE) STAT 03/09/2020 9:28 AM EST 03/09/2020 09:28:41 AM [facility] GLUCOSE QUANTITATIVE BLOOD XCPT REAGENT STRIP POCT GLUCOSE, DOC KED Routine 03/09/2020 7:45 AM EST 03/09/2020 07:45:00 AM [facility] BLOOD COUNT COMPLETE AUTOMATED CBC Routine 03/09/2020 12:04 A M EST 03/09/2020 12:04:00 AM [facility] PHOSPHORUS INORGANIC PHOSPHORUS LEVEL Routine 03/09/2020 12:[address] 03/09/2020 12:04:00 AM [facility] MAGNESIUM MAGNESIUM LEVEL Routine 03/09/2020 12:04 AM EST 03/09/2020 12:04:00 AM [facility] COMPREHENSIVE METABOLIC PANEL COMPREHENSIVE METABOLIC PANEL Rou mary 03/09/2020 12:04 AM EST 03/09/2020 12:04:00 AM [facility] GLUCOSE QUANTITATIVE BLOOD XCPT REAGENT STRIP POCT GLUCOSE, GLORIA SINGH Routine 03/08/2020 9:28 PM EST 03/08/2020 09:28:00 PM [facility] GLUCOSE QUANTITATIVE BLOOD XCPT REAGENT STRIP POCT GLUCOSE, GLORIA SINGH Routine 03/08/2020 4:40 PM EST 03/08/2020 04:40:00 PM [facility] EKG 12-LEAD - CMAXX REPORT EKG 12-LEAD - CMAXX REPORT 03/08/2020 2:29 PM EST 03/08/2020 02:29:27 PM [facility] EKG 12-LEAD - CMAXX REPORT EKG 12-LEAD - CMAXX REPORT 03/08/2020 2:29 PM EST 03/08/2020 02:29:27 PM [facility] EKG 12-LEAD EKG 12-LEAD Routine 03/08/2020 2:29 PM EST 03/08/2020 02:29:27 PM [facility] BLOOD COUNT COMPLETE AUTOMATED CBC Routine 03/08/2020 11:37 A M EST 03/08/2020 11:37:00 AM [facility] GLUCOSE QUANTITATIVE BLOOD XCPT REAGENT STRIP POCT GLUCOSE, GLORIA SINGH Routine 03/08/2020 11:35 AM EST 03/08/2020 11:35:[address] [facility] [address] ABDOMEN & PELVIS W/O CONTRAST MATERIAL CT ABDOMEN PELVIS WITHOUT CONTRAST [id number] STAT 03/08/2020 9:46 AM EST 03/08/2020 09:46 :31 AM [facility] TRANSFUSE RBC (ONCE) TRANSFUSE RBC (ONCE) STAT 03/08/2020 8:56 AM EST 03/08/2020 08:56:56 AM [facility] GLUCOSE QUANTITATIVE BLOOD XCPT REAGENT STRIP POCT GLUCOSE, GLORIA SINGH Routine 03/08/2020 7:48 AM EST 03/08/2020 07:48:00 AM [facility] TRANSFUSE RBC (ONCE) TRANSFUSE RBC (ONCE) Routine 03/08/2020 2:44 AM EST 03/08/2020 02:44:59 AM [facility] BLOOD COUNT COMPLETE AUTOMATED CBC AND DIFFERENTIAL Routine 03/08/2020 2:30 AM EST 03/08/2020 02:30:00 AM [facility] URIC ACID BLOOD URIC ACID Routine 03/08/2020 2:30 AM EST 03/08/2020 02:30:00 AM [facility] PHOSPHORUS INORGANIC PHOSPHORUS LEVEL Routine 03/08/2020 2:[address] 03/08/2020 02:30:00 AM [facility] MAGNESIUM MAGNESIUM LEVEL Routine 03/08/2020 2:30 AM EST 03/08/2020 02:30:00 AM [facility] LACTATE DEHYDROGENASE LDH LACTATE DEHYDROGENASE Routine 03/08/2020 2:30 AM EST 03/08/2020 02:30:00 AM [facility] HAPTOGLOBIN QUANTITATIVE HAPTOGLOBIN Routine 03/08/2020 2:30 AM ES T 03/08/2020 02:30:00 AM [facility] COMPREHENSIVE METABOLIC PANEL COMPREHENSIVE METABOLIC PANEL Rou mary 03/08/2020 2:30 AM EST 03/08/2020 02:30:00 AM [facility] URNLS DIP STICK/TABLET REAGENT AUTO MICROSCOPY URINAL YSIS WITH REFLEX URINE CULTURE Routine 03/07/2020 9:50 PM EST 03/07/2020 09:50 :00 PM [facility] BLOOD OCCULT FECAL HGB DETER IA QUAL FECES 1-3 FECAL OCCULT BLOOD, LOWER GI (HEMOCCULT-ICT), FIT TESTING, Routine 03/07/2020 9:48 PM EST 03/07/2020 09:48:00 PM [facility] GLUCOSE QUANTITATIVE BLOOD XCPT REAGENT STRIP POCT GLUCOSE, DOC KED Routine 03/07/2020 9:16 PM EST 03/07/2020 09:16:00 PM [facility] BLOOD COUNT COMPLETE AUTOMATED CBC AND DIFFERENTIAL Routine 03/07/2020 8:26 PM EST 03/07/2020 08:26:00 PM [facility] BLOOD TYPING ABO HC BLOOD TYPING;ABO Routine 03/07/2020 8:25 PM ES T 03/07/2020 08:25:00 PM [facility] EKG 12-LEAD - CMAXX REPORT EKG 12-LEAD - CMAXX REPORT 03/07/2020 7:54 PM EST 03/07/2020 07:54:33 PM [facility] EKG 12-LEAD - CMAXX REPORT EKG 12-LEAD - CMAXX REPORT 03/07/2020 7:54 PM EST 03/07/2020 07:54:33 PM [facility] EKG 12-LEAD EKG 12-LEAD Routine 03/07/2020 7:54 PM EST 03/07/2020 07:54:33 PM [facility] EKG 12-LEAD EKG 12-LEAD Routine 03/07/2020 7:54 PM EST 03/07/2020 07:54:33 PM [facility] TRANSFUSE RBC (ONCE) TRANSFUSE RBC (ONCE) Routine 03/07/2020 6:09 PM EST 03/07/2020 06:09:20 PM [facility] TRANSFUSE PLATELET PHERESIS (ONCE) TRANSFUSE PLATELET PHERESIS (ONCE) Routine 03/07/2020 6:06 PM EST 03/07/2020 06:06:59 PM [facility] BLOOD COUNT PLATELET AUTOMATED PLATELET COUNT Routine 021 5:45 PM EST 03/07/2020 05:45:[address] [facility] GLUCOSE QUANTITATIVE BLOOD XCPT REAGENT STRIP POCT GLUCOSE, DOC KED Routine 03/07/2020 4:45 PM EST 03/07/2020 04:45:00 PM [facility] PREPARE PLATELET PHERESIS PREPARE PLATELET PHERESIS Routine 03/07/2020 12:31 PM EST 03/07/2020 12:31:00 PM [facility] GLUCOSE QUANTITATIVE BLOOD XCPT REAGENT STRIP POCT GLUCOSE, DOC KED Routine 03/07/2020 12:21 PM EST 03/07/2020 12:21:00 PM [facility] THROMBOPLASTIN TIME PARTIAL PLASMA/WHOLE BLOOD PARTIA L THROMBOPLASTIN TIME (PTT) Routine 03/07/2020 10:47 AM EST 03/07/2020 10:47 :00 AM [facility] PROTHROMBIN TIME PROTIME INR Routine 03/07/2020 10:47 AM EST 03/07/2020 10:47:00 AM [facility] BLOOD COUNT COMPLETE AUTOMATED CBC AND DIFFERENTIAL Routine 03/07/2020 10:47 AM EST 03/07/2020 10:47:00 AM [facility] TRANSFUSE RBC (ONCE) TRANSFUSE RBC (ONCE) STAT 03/07/2020 9:18 AM EST 03/07/2020 09:18:50 AM [facility] GLUCOSE QUANTITATIVE BLOOD XCPT REAGENT STRIP POCT GLUCOSE, DOC KED Routine 03/07/2020 8:08 AM EST 03/07/2020 08:08:00 AM [facility] COVID-19 PCR COVID-19 PCR Routine 03/07/2020 12:47 AM EST 03/07/2020 12:47:00 AM [facility] CONFIRMATORY TYPE CONFIRMATORY TYPE Routine 03/07/2020 12:47 AM EST 03/07/2020 12:47:00 AM [facility] CROSSMATCH, ADDITIONAL CROSSMATCH, ADDITIONAL Routine 021 12:47 AM EST 03/07/2020 12:47:[address] [facility] BLOOD COUNT COMPLETE AUTOMATED CBC Routine 03/07/2020 12:47 A M EST 03/07/2020 12:47:00 AM [facility] BLOOD TYPING ABO TYPE AND SCREEN Routine 03/07/2020 12:47 AM EST 03/07/2020 12:47:00 AM [facility] TRIIODOTHYRONINE T3 FREE T3, FREE Routine 03/07/2020 12:47 AM EST 03/07/2020 12:47:00 AM [facility] THYROID STIMULATING HORMONE TSH TSH Routine 03/07/2020 12:47 AM EST 03/07/2020 12:47:00 AM [facility] THYROXINE FREE T4, FREE Routine 03/07/2020 12:47 AM EST 03/07/2020 12:47:00 AM [facility] COMPREHENSIVE METABOLIC PANEL COMPREHENSIVE METABOLIC PANEL Rou mary 03/07/2020 12:47 AM EST 03/07/2020 12:47:00 AM [facility] GLUCOSE QUANTITATIVE BLOOD XCPT REAGENT STRIP POCT GLUCOSE, DOC KED Routine 03/07/2020 12:16 AM EST 03/07/2020 12:16:00 AM [facility] XR CHEST FRONTAL ONLY [id number] XR CHEST FRONTAL ONLY [id number] Routine 03/07/2020 12:10 AM EST 03/07/2020 12:10:00 AM [facility] CYTOGENETICS ONCOLOGY, BLOOD AND BONE MARROW CYTOGENE TICS ONCOLOGY, BLOOD AND BONE MARROW Routine 03/07/2020 12:00 AM EST 03/07/2020 12: 00:00 AM [facility] HEMATOPATHOLOGY HEMATOPATHOLOGY Routine 03/07/2020 12:00 AM EST 03/07/2020 12:00:00 AM [facility] ECG ROUTINE ECG W/LEAST 12 LDS W/I&R POCT AMB EKG Routine 12/21/2019 1:41 PM EST Coronary angioplasty status 12/21/2019 06:41:00 PM EST Coron evans angioplasty status [facility] Coronary angioplasty status BLOOD COUNT COMPLETE AUTO&AUTO DIFRNTL WBC COUNT CBC AND DIFFER ENTIAL Routine 12/19/2019 12/19/2019 12:00:00 AM EST [facility] HEPATIC FUNCTION PANEL HEPATIC FUNCTION PANEL Routine 12/05/2019 12/05/2019 12:00:00 AM EDT [facility] BASIC METABOLIC PANEL CALCIUM TOTAL BASIC METABOLIC PANEL Routine 12/05/2019 12/05/2019 12:00:00 AM EDT [facility] Transitional Care NO CHARGE Visit 06/29/2019 12:00:00 AM EDT [email or web address] ([facility]) LIPID PANEL LIPID PANEL Routine 05/30/2019 05/30/2019 1 2:00:00 AM EDT [facility] POCT GLUCOSE, DOCKED POCT GLUCOSE, DOCKED Routine 04/09/2019 11:54 AM EST 04/09/2019 04:54:00 PM [facility] POCT GLUCOSE, DOCKED POCT GLUCOSE, DOCKED Routine 04/09/2019 7:28 AM EST 04/09/2019 12:28:00 PM [facility] BLOOD COUNT COMPLETE AUTO&AUTO DIFRNTL WBC COUNT CBC AND DIFFER ENTIAL Routine 04/09/2019 12:33 AM EST 04/09/2019 05:33:00 AM [facility] URIC ACID BLOOD URIC ACID Routine 04/09/2019 12:33 AM EST 04/09/2019 05:33:00 AM [facility] BASIC METABOLIC PANEL CALCIUM TOTAL BASIC METABOLIC PANEL Routi ne 04/09/2019 12:33 AM EST 04/09/2019 05:33:00 AM EST [facility] GLUCOSE QUANTITATIVE BLOOD XCPT REAGENT STRIP POCT GLUCOSE, DOC KED Routine 04/08/2019 9:08 PM EST 04/09/2019 02:08:00 AM [facility] GLUCOSE QUANTITATIVE BLOOD XCPT REAGENT STRIP POCT GLUCOSE, GLORIA SINGH Routine 04/08/2019 4:55 PM EST 04/08/2019 09:55:00 PM [facility] GLUCOSE QUANTITATIVE BLOOD XCPT REAGENT STRIP POCT GLUCOSE, GLORIA SINGH Routine 04/08/2019 11:58 AM EST 04/08/2019 04:58:00 PM [facility] GLUCOSE QUANTITATIVE BLOOD XCPT REAGENT STRIP POCT GLUCOSE, GLORIA SINGH Routine 04/08/2019 7:44 AM EST 04/08/2019 12:44:00 PM [facility] BLOOD COUNT COMPLETE AUTOMATED CBC AND DIFFERENTIAL Routine 04/08/2019 12:46 AM EST 04/08/2019 05:46:00 AM [facility] URIC ACID BLOOD URIC ACID Routine 04/08/2019 12:46 AM EST 04/08/2019 05:46:00 AM [facility] BASIC METABOLIC PANEL CALCIUM TOTAL BASIC METABOLIC PANEL Routi ne 04/08/2019 12:46 AM EST 04/08/2019 05:46:00 AM [facility] GLUCOSE QUANTITATIVE BLOOD XCPT REAGENT STRIP POCT GLUCOSE, GLORIA SINGH Routine 04/07/2019 9:44 PM EST 04/08/2019 02:44:00 AM [facility] GLUCOSE QUANTITATIVE BLOOD XCPT REAGENT STRIP POCT GLUCOSE, GLORIA SINGH Routine 04/07/2019 4:35 PM EST 04/07/2019 09:35:00 PM [facility] GLUCOSE QUANTITATIVE BLOOD XCPT REAGENT STRIP POCT GLUCOSE, GLORIA SINGH Routine 04/07/2019 11:39 AM EST 04/07/2019 04:39:00 PM [facility] URIC ACID BLOOD URIC ACID Routine 04/07/2019 9:11 AM EST 04/07/2019 02:11:00 PM [facility] TRIIODOTHYRONINE T3 FREE T3, FREE Routine 04/07/2019 9:11 AM EST 04/07/2019 02:11:00 PM [facility] THYROXINE FREE T4, FREE Routine 04/07/2019 9:11 AM EST 04/07/2019 02:11:00 PM [facility] GLUCOSE QUANTITATIVE BLOOD XCPT REAGENT STRIP POCT GLUCOSE, GLORIA SINGH Routine 04/07/2019 7:42 AM EST 04/07/2019 12:42:00 PM [facility] HLA CLASS I&II LOW HLA-A -B -C -DRB1/3/4/5&-DQB1 HLA MOLECULAR MABDR Routine 04/07/2019 12:23 AM EST 04/07/2019 05:23:00 AM [facility] IAAD EIA HIV-1 AG W/HIV-1&HIV-2 ANTBDY SINGLE HIV AG AB COMBO S CREEN Routine 04/07/2019 12:23 AM EST 04/07/2019 05:23:00 AM [facility] ANTIBODY CYTOMEGALOVIRUS CMV CMV IGG Routine 04/07/2019 12:23 AM EST 04/07/2019 05:23:00 AM [facility] MICROSOMAL ANTIBODIES EACH THYROID PEROXIDASE ANTIBODY Routine 04/07/2019 12:23 AM EST 04/07/2019 05:23:00 AM [facility] COPPER COPPER, PLASMA Routine 04/07/2019 12:23 AM EST 04/07/2019 05:23:00 AM [facility] ZINC ZINC, PLASMA Routine 04/07/2019 12:23 AM EST 04/07/2019 05:23:00 AM [facility] ACUTE HEPATITIS PANEL HEPATITIS PANEL, ACUTE Routine 04/07/2019 1 2:23 AM EST 04/07/2019 05:23:00 AM [facility] BLOOD COUNT COMPLETE AUTOMATED CBC AND DIFFERENTIAL Routine 04/07/2019 12:23 AM EST 04/07/2019 05:23:00 AM [facility] PHOSPHORUS INORGANIC PHOSPHORUS LEVEL Routine 04/07/2019 12:[address] 04/07/2019 05:23:00 AM [facility] MAGNESIUM MAGNESIUM LEVEL Routine 04/07/2019 12:23 AM EST 04/07/2019 05:23:00 AM [facility] BASIC METABOLIC PANEL CALCIUM TOTAL BASIC METABOLIC PANEL Routi ne 04/07/2019 12:23 AM EST 04/07/2019 05:23:00 AM [facility] GLUCOSE QUANTITATIVE BLOOD XCPT REAGENT STRIP POCT GLUCOSE, DOC KED Routine 04/06/2019 8:59 PM EST 04/07/2019 01:59:00 AM [facility] GLUCOSE QUANTITATIVE BLOOD XCPT REAGENT STRIP POCT GLUCOSE, DOC KED Routine 04/06/2019 4:38 PM EST 04/06/2019 09:38:00 PM [facility] FLOW CYTOMETRY CELL CYCLE/DNA GENET LEUKEMIA / LYMPHOM A PHENOTYPE, PERIPHERAL BLOOD Routine 04/06/2019 1:40 PM EST 04/06/2019 06:40 :00 PM [facility] GLUCOSE QUANTITATIVE BLOOD XCPT REAGENT STRIP POCT GLUCOSE, DOC KED Routine 04/06/2019 11:48 AM EST 04/06/2019 04:48:00 PM [facility] NATRIURETIC PEPTIDE PROBNP Routine 04/06/2019 9:54 AM EST 04/06/2019 02:54:00 PM [facility] PROTHROMBIN TIME PROTIME INR Routine 04/06/2019 9:54 AM EST 04/06/2019 02:54:00 PM [facility] FIBRINOGEN ACTIVITY FIBRINOGEN LEVEL Routine 04/06/2019 9:54 AM ES T 04/06/2019 02:54:00 PM [facility] FIBRIN DGRADJ PRODUCTS D-DIMER QUAL/SEMIQUAN D-DIMER, QUANTITAT LESLYE Routine 04/06/2019 9:54 AM EST 04/06/2019 02:54:00 PM [facility] BLOOD COUNT RETICULOCYTE AUTOMATED RETICULOCYTES Routine 04/06/2019 9:54 AM EST 04/06/2019 02:54:00 PM [facility] URIC ACID BLOOD URIC ACID Routine 04/06/2019 9:54 AM EST 04/06/2019 02:54:00 PM [facility] THYROID STIMULATING HORMONE TSH TSH Routine 04/06/2019 9:54 AM EST 04/06/2019 02:54:00 PM [facility] PHOSPHORUS INORGANIC PHOSPHORUS LEVEL Routine 04/06/2019 9:[address] 04/06/2019 02:54:00 PM [facility] LACTATE DEHYDROGENASE LDH LACTATE DEHYDROGENASE Routine 04/06/2019 9:54 AM EST 04/06/2019 02:54:00 PM [facility] HAPTOGLOBIN QUANTITATIVE HAPTOGLOBIN Routine 04/06/2019 9:54 AM ES T 04/06/2019 02:54:00 PM [facility] FERRITIN FERRITIN LEVEL Routine 04/06/2019 9:54 AM EST 04/06/2019 02:54:00 PM [facility] CYANOCOBALAMIN VITAMIN B-12 VITAMIN B12 Routine 04/06/2019 9:54 AM EST 04/06/2019 02:54:00 PM [facility] BASIC METABOLIC PANEL CALCIUM TOTAL BASIC METABOLIC PANEL Routi ne 04/06/2019 9:54 AM EST 04/06/2019 02:54:00 PM [facility] EKG 12-LEAD - CMAXX REPORT EKG 12-LEAD - CMAXX REPORT 04/06/2019 9:45 AM EST 04/06/2019 02:45:45 PM [facility] EKG 12-LEAD - CMAXX REPORT EKG 12-LEAD - CMAXX REPORT 04/06/2019 9:45 AM EST 04/06/2019 02:45:45 PM [facility] EKG 12-LEAD EKG 12-LEAD Routine 04/06/2019 9:45 AM EST 04/06/2019 02:45:45 PM [facility] ECHO TTHRC R-T 2D W/WOM-MODE COMPL SPEC&COLR DOP ECHOCARDIO GRAM 2D COMPLETE Routine 04/06/2019 8:40 AM EST 04/06/2019 01:40:28 PM [facility] GLUCOSE QUANTITATIVE BLOOD XCPT REAGENT STRIP POCT GLUCOSE, DOC KED Routine 04/06/2019 7:47 AM EST 04/06/2019 12:47:00 PM [facility] EKG 12-LEAD - CMAXX REPORT EKG 12-LEAD - CMAXX REPORT 04/06/2019 2:43 AM EST 04/06/2019 07:43:24 AM [facility] EKG 12-LEAD - CMAXX REPORT EKG 12-LEAD - CMAXX REPORT 04/06/2019 2:42 AM EST 04/06/2019 07:42:52 AM [facility] EKG 12-LEAD - CMAXX REPORT EKG 12-LEAD - CMAXX REPORT 04/06/2019 2:42 AM EST 04/06/2019 07:42:52 AM [facility] EKG 12-LEAD EKG 12-LEAD Routine 04/06/2019 2:42 AM EST 04/06/2019 07:42:52 AM [facility] BLOOD COUNT COMPLETE AUTOMATED CBC AND DIFFERENTIAL Routine 04/06/2019 12:09 AM EST 04/06/2019 05:09:00 AM [facility] COMPREHENSIVE METABOLIC PANEL COMPREHENSIVE METABOLIC PANEL Rou mary 04/06/2019 12:09 AM EST 04/06/2019 05:09:00 AM [facility] CYTOGENETICS ONCOLOGY, BLOOD AND BONE MARROW CYTOGENE TICS ONCOLOGY, BLOOD AND BONE MARROW Routine 04/06/2019 12:00 AM EST 04/06/2019 05: 00:00 AM [facility] HEMATOPATHOLOGY HEMATOPATHOLOGY Routine 04/06/2019 12:00 AM EST 04/06/2019 05:00:00 AM [facility] RESPIRATORY PANEL RESPIRATORY PANEL Routine 04/05/2019 11:16 PM EST 04/06/2019 04:16:00 AM [facility] Results ID Date Data Source [id number] 03/24/2020 07:51:00 AM EST [facility] Name Value Range Interpretation Code Description Data [place] rce(s) Supporting Document(s) SARS coronavirus 2 RNA [Presence] in Res piratory specimen by JOSE ROBERTO with probe detection NEGATIVE [facility] This lab was ordered by [facility] a nd reported by [facility]. ID Date Data Source [id number] 03/18/2020 04:17:58 PM [facility] Name Value Range Interpretation Code Description Data [place] rce(s) Supporting Document(s) Platelets [#/volume] in Blood by Automated count 18 10*3/uL 150-400 [facility] No significant change since last result called ID Date Data Source [id number] 03/18/2020 01:44:37 PM 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 Name Value Range Interpretation Code Description Data [place] rce(s) Supporting Document(s) Glucose [Mass/volume] in Capillary blood by Glucometer 124 mg/dL 70- 140 [facility] ID Date Data Source [id number] 03/20/2020 01:56:04 AM [facility] Performed at [facility] [place] [address] 03/18/20 Name Value Range Interpretation Code Description Data [place] rce(s) Supporting Document(s) ID Date Data Source [id number] 03/18/2020 09:17:04 AM [facility] Name Value Range Interpretation Code Description Data [place] rce(s) Supporting Document(s) Leukocytes [#/volume] in Blood by Automated count 0.5 10*3/uL 4-10 [facility] No significant change since last result called Erythrocytes [#/volume] in Blood by Automated count 2.78 10*6/uL 4.1- 5.3 L [facility] Hemoglobin [Mass/volume] in Blood 8.3 g/dL 11.5-15.5 L [facility] Hematocrit [Volume Fraction] of Blood by Automated count 23.8 % 3 6-45 L [facility] Erythrocyte mean corpuscular volume [Entitic volume] by Auto mated count 85.3 fL 80-96 [facility] Erythrocyte mean corpuscular hemoglobin [Entitic mass] by Automated count 29.8 pg 27-33 [facility] Erythrocyte mean corpuscular hemoglobin concentration [Mass/volume] by Autom[facility] count 34.9 g/[facility] width [Ratio] by Automated count 14.7 % 11.5-14.5 H [facility] Platelets [#/volume] in Blood by Automated count 10 10*3/uL 150-400 [facility] No significant change since last result called ID Date Data Source [id number] 03/18/2020 07:52:46 AM [facility] Name Value Range Interpretation Code Description Data [place] rce(s) Supporting Document(s) Glucose [Mass/volume] in Capillary blood by Glucometer 85 mg/dL 70- 140 [facility] ID Date Data Source [id number] 03/18/2020 01:51:25 AM [facility] Name Value Range Interpretation Code Description Data [place] rce(s) Supporting Document(s) Bicarbonate [Moles/volume] in Serum 22 mmol/L 22-29 [facility] Chloride [Moles/volume] in Serum or Plasma 108 mmol/L 98-107 H [facility] Creatinine [Mass/volume] in Serum or Plasma 1.45 mg/dL 0.50-0.90 [facility] Glucose [Mass/volume] in Serum or Plasma 117 mg/dL 70-140 [facility] Potassium [Moles/volume] in Serum or Plasma 3.6 mmol/L 3.4-5.1 [facility] Sodium [Moles/volume] in Serum or Plasma 138 mmol/L 136-145 [facility] Urea nitrogen [Mass/volume] in Serum or Plasma 26 mg/dL 8-23 H [facility] Anion gap 3 in Serum or Plasma 9 mmol/L 8-15 [facility] Osmolality of Serum or Plasma by calculation 292 mosm/kg 275-300 [facility] Creatinine/Urea nitrogen [Mass Ratio] in Serum or Plasma 18 [facility] Calcium [Mass/volume] in Serum or Plasma 8.0 mg/dL 8.8-10.2 L [facility] Glomerular filtration rate/1.73 sq M pre dicted among non-blacks [Volume Rate/Area] in Serum or Plasma by Creatinine-based formula (MDRD) 37 mL/min/1.73m2 >60 L [facility] Glomerular filtration rate/1.73 sq M pre dicted among blacks [Volume Rate/Area] in Serum or Plasma by Creatinine-based formula (MDRD) 43 mL/min/1.73m2 >60 L [facility] ID Date Data Source [id number] 03/18/2020 01:51:25 AM [facility] Name Value Range Interpretation Code Description Data [place] rce(s) Supporting Document(s) Magnesium [Mass/volume] in Serum or Plasma 1.8 mg/dL 1.6-2.4 [facility] ID Date Data Source [id number] 03/18/2020 01:51:25 AM [facility] Name Value Range Interpretation Code Description Data [place] rce(s) Supporting Document(s) Phosphate [Mass/volume] in Serum or Plasma 3.2 mg/dL 2.5-4.5 [facility] ID Date Data Source [id number] 03/18/2020 02:34:55 AM [facility] Name Value Range Interpretation Code Description Data [place] rce(s) Supporting Document(s) Leukocytes [#/volume] in Blood by Automated count 0.5 10*3/uL 4-10 [facility] No significant change since last result called Erythrocytes [#/volume] in Blood by Automated count 2.27 10*6/uL 4.1- 5.3 L [facility] Hemoglobin [Mass/volume] in Blood 6.7 g/dL 11.5-15.5 L [facility] Hematocrit [Volume Fraction] of Blood by Automated count 19.3 % 3 6-45 [facility] No significant change since last result called Erythrocyte mean corpuscular volume [Entitic volume] by Auto mated count 85.0 fL 80-96 [facility] Erythrocyte mean corpuscular hemoglobin [Entitic mass] by Automated count 29.5 pg 27-33 [facility] Erythrocyte mean corpuscular hemoglobin concentration [Mass/volume] by Automated count 34.7 g/dL 32.0-36.0 [place] [facility] Erythrocyte distribution width [Ratio] by Automated count 14.7 % 11.5-14.5 H [facility] Platelets [#/volume] in Blood by Automated count 12 10*3/uL 150-400 [facility] No significant change since last result called Differential cell count method - Blood [facility] Neutrophils/100 leukocytes in Blood by Automated count 2 % [facility] Lymphocytes/100 leukocytes in Blood by Automated count 87 % [facility] Monocytes/100 leukocytes in Blood by Automated count 0 % [facility] Eosinophils/100 leukocytes in Blood by Automated count 1 % [facility] Neutrophils [#/volume] in Blood by Automated count 0.01 10*3/uL 1.8-7 .0 L [facility] Lymphocytes [#/volume] in Blood by Automated count 0.44 10*3/uL 1.2-4 .0 L [facility] Monocytes [#/volume] in Blood by Automated count 0.00 10*3/uL 0-0.8 [facility] Eosinophils [#/volume] in Blood by Automated count 0.00 10*3/uL 0-0.5 [facility] Nucleated erythrocytes/100 leukocytes [Ratio] in Blood by Automated count 0 /100{WBCs} 0-0 [facility] Variant lymphocytes/100 leukocytes in Blood by Manual count 4 % [facility] Metamyelocytes/100 leukocytes in Blood by Manual count 0 % [facility] Blasts/100 leukocytes in Blood by Manual count 6 % [facility] Lymphocytes [#/volume] in Blood 0.02 10*3/uL 0 H [facility] Metamyelocytes [#/volume] in Blood by Manual count 0.00 10*3/uL 0-0 [facility] Blasts [#/volume] in Blood by Manual count 0.03 10*3/uL 0-0 H [facility] Anisocytosis [Presence] in Blood by Light microscopy [facility] Poikilocytosis [Presence] in Blood by Light microscopy [facility] ID Date Data Source [id number] 03/17/2020 09:16:29 PM [facility] Value Range Interpretation Code Description Data [place] rce(s) Supporting Document(s) Glucose [Mass/volume] in Capillary blood by Glucometer 104 mg/dL 70- 140 [facility] ID Date Data Source [id number] 03/17/2020 04:47:17 PM [facility] Value Range Interpretation Code Description Data [place] rce(s) Supporting Document(s) Glucose [Mass/volume] in Capillary blood by Glucometer 93 mg/dL 70- 140 [facility] ID Date Data Source [id number] 03/17/2020 04:36:18 PM [facility] Value Range Interpretation Code Description Data [place] rce(s) Supporting Document(s) Platelets [#/volume] in Blood by Automated count 16 10*3/uL 150-400 [facility] No significant change since last result called ID Date Data Source [id number] 03/17/2020 11:34:49 AM [facility] Name Value Range Interpretation Code Description Data [place] rce(s) Supporting Document(s) Glucose [Mass/volume] in Capillary blood by Glucometer 110 mg/dL 70- 140 [facility] ID Date Data Source [id number] 03/19/2020 01:51:30 AM [facility] Name Value Range Interpretation Code Description Data [place] rce(s) Supporting Document(s) Blood bank comment [facility] ID Date Data Source [id number] 03/17/2020 07:41:19 AM [facility] Value Range Interpretation Code Description Data [place] rce(s) Supporting Document(s) Glucose [Mass/volume] in Capillary blood by Glucometer 125 mg/dL 70- 140 [facility] ID Date Data Source [id number] 03/17/2020 06:41:12 AM 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 COMPARISON: CR XR CHEST FRONTAL ONLY [id number] PORTABLE 03/13/2020 7:59 PM FINDINGS: Tubes, catheters [...] 2. Followup radiographs recommended after appropriate therapy. THIS DOCUMENT HAS BEEN ELECTRONICALLY SIGNED BY DWAIN WANG MDThis document has been electronically signed by Dwain Wang MD on 03/17/2020 6:41 AM Name Value Range Interpretation Code Description Data [place] rce(s) Supporting Document(s) ID Date Data Source [id number] 03/20/2020 01:56:04 AM [facility] Name Value Range Interpretation Code Description Data [place] rce(s) Supporting Document(s) ABO and Rh group [Type] in Blood [facility] Blood group antibody screen [Presence] in Serum or Plasma [facility] Blood bank comment [facility] ID Date Data Source [id number] 03/17/2020 04:39:46 AM [facility] Name Value Range Interpretation Code Description Data [place] rce(s) Supporting Document(s) Color of Urine [facility] Clarity of Urine [facility] Specific gravity of Urine by Refractometry automated 1.012 1.003 -1.030 [facility] pH of Urine by Automated test strip 5.0 5.0-8.0 [facility] Protein [Mass/volume] in Urine by Automated test strip Neg [facility] Glucose [Mass/volume] in Urine by Automated test strip Neg [facility] Ketones [Mass/volume] in Urine by Automated test strip Neg [facility] Bilirubin.total [Presence] in Urine by Automated test strip Negative [facility] Hemoglobin [Presence] in Urine by Automated test strip Neg ative A [facility] Leukocyte esterase [Presence] in Urine by Automated test strip Negative [facility] Nitrite [Presence] in Urine by Automated test strip Negati ve [facility] Leukocytes [#/area] in Urine sediment by Automated count 0 /HPF 0 -5 [facility] Erythrocytes [#/area] in Urine sediment by Automated count 0-3 [facility] Bacteria [#/area] in Urine sediment by Automated count Non e [facility] Epithelial cells.squamous [#/area] in Urine sediment by Auto mated count 8 /HPF None [facility] Mucus [#/area] in Urine sediment by Microscopy low power field None [facility] ID Date Data Source [id number] 03/17/2020 01:54:36 AM [facility] Name Value Range Interpretation Code Description Data [place] rce(s) Supporting Document(s) Bicarbonate [Moles/volume] in Serum 22 mmol/L 22-29 [facility] Chloride [Moles/volume] in Serum or Plasma 105 mmol/L 98-107 [facility] Creatinine [Mass/volume] in Serum or Plasma 1.44 mg/dL 0.50-0.90 H [facility] Glucose [Mass/volume] in Serum or Plasma 105 mg/dL 70-140 [facility] Potassium [Moles/volume] in Serum or Plasma 3.8 mmol/L 3.4-5.1 [facility] Sodium [Moles/volume] in Serum or Plasma 136 mmol/L 136-145 [facility] Urea nitrogen [Mass/volume] in Serum or Plasma 28 mg/dL 8-23 H [facility] Anion gap 3 in Serum or Plasma 9 mmol/L 8-15 [facility] Osmolality of Serum or Plasma by calculation 288 mosm/kg 275-300 [facility] Creatinine/Urea nitrogen [Mass Ratio] in Serum or Plasma 19 [facility] Calcium [Mass/volume] in Serum or Plasma 8.4 mg/dL 8.8-10.2 L [facility] Glomerular filtration rate/1.73 sq M pre dicted among non-blacks [Volume Rate/Area] in Serum or Plasma by Creatinine-based formula (MDRD) 37 mL/min/1.73m2 >60 L [facility] Glomerular filtration rate/1.73 sq M pre dicted among blacks [Volume Rate/Area] in Serum or Plasma by Creatinine-based formula (MDRD) 43 mL/min/1.73m2 >60 L [facility] ID Date Data Source [id number] 03/17/2020 01:54:36 AM [facility] Name Value Range Interpretation Code Description Data [place] rce(s) Supporting Document(s) Magnesium [Mass/volume] in Serum or Plasma 1.9 mg/dL 1.6-2.4 [facility] ID Date Data Source [id number] 03/17/2020 01:54:36 AM [facility] Name Value Range Interpretation Code Description Data [place] rce(s) Supporting Document(s) Phosphate [Mass/volume] in Serum or Plasma 2.9 mg/dL 2.5-4.5 [facility] ID Date Data Source [id number] 03/17/2020 02:24:43 AM [facility] Name Value Range Interpretation Code Description Data [place] rce(s) Supporting Document(s) Leukocytes [#/volume] in Blood by Automated count 0.6 10*3/uL 4-10 [facility] Called to and read back by katrina cabrera rn 10h [id number] at 0141 by 1522 Erythrocytes [#/volume] in Blood by Automated count 2.28 10*6/uL 4.1- 5.3 L [facility] Hemoglobin [Mass/volume] in Blood 6.8 g/dL 11.5-15.5 L [facility] Hematocrit [Volume Fraction] of Blood by Automated count 19.6 % 3 6-45 [facility] Called to and read back by katrina cabrera rn 10 [id number] at 0141 by 1522 Erythrocyte mean corpuscular volume [Entitic volume] by Auto mated count 85.9 fL 80-96 [facility] Erythrocyte mean corpuscular hemoglobin [Entitic mass] by Automated count 29.9 pg 27-33 [facility] Erythrocyte mean corpuscular hemoglobin concentration [Mass/volume] by Automated count 34.8 g/dL 32.0-36.[facility] width [Ratio] by Automated count 14.8 % 11.5-14.5 H [facility] Platelets [#/volume] in Blood by Automated count 10 10*3/uL 150-400 [facility] Called to and read back by katrina cabrera rn 10 [id number] at 0141 by 1522 Differential cell count method - Blood [facility] Neutrophils/100 leukocytes in Blood by Automated count 2 % [facility] Lymphocytes/100 leukocytes in Blood by Automated count 84 % [facility] Monocytes/100 leukocytes in Blood by Automated count 1 % [facility] Neutrophils [#/volume] in Blood by Automated count 0.01 10*3/uL 1.8-7 .0 L [facility] Lymphocytes [#/volume] in Blood by Automated count 0.51 10*3/uL 1.2-4 .0 L [facility] Monocytes [#/volume] in Blood by Automated count 0.01 10*3/uL 0-0.8 [facility] Variant lymphocytes/100 leukocytes in Blood by Manual count 1 % [facility] Blasts/100 leukocytes in Blood by Manual count 11 % [facility] Lymphocytes [#/volume] in Blood 0.01 10*3/uL 0 H [facility] Blasts [#/volume] in Blood by Manual count 0.06 10*3/uL 0-0 H [facility] Anisocytosis [Presence] in Blood by Light microscopy [facility] Poikilocytosis [Presence] in Blood by Light microscopy [facility] Immature cells/100 leukocytes in Blood 1 % 0 H [facility] UNCLASSIFIED CELL IS ARTIFACT. REVIEWED BY Boby CURRAN MD03/19/20 Unidentified cells [#/volume] in Blood 0.01 10*3/uL 0 H [facility] ID Date Data Source [id number] 03/22/2020 12:17:20 PM [facility] Cmnt XXX-Imp : PORTMicroorganism XXX Cult : No growth 5 days Name Value Range Interpretation Code Description Data [place] rce(s) Supporting Document(s) ID Date Data Source [id number] 03/22/2020 12:17:20 PM [facility] Cmnt XXX-Imp : R WRISTMicroorgan ism XXX Cult : No growth 5 days Name Value Range Interpretation Code Description Data [place] rce(s) Supporting Document(s) ID Date Data Source [id number] 03/22/2020 12:17:20 PM [facility] Cmnt XXX-Imp : L ACMicroorganism XXX Cult : No growth 5 days Name Value Range Interpretation Code Description Data [place] rce(s) Supporting Document(s) ID Date Data Source [id number] 03/16/2020 09:58:55 PM [facility] Value Range Interpretation Code Description Data [place] rce(s) Supporting Document(s) Glucose [Mass/volume] in Capillary blood by Glucometer 123 mg/dL 70- 140 [facility] ID Date Data Source [id number] 03/16/2020 04:31:17 PM [facility] Value Range Interpretation Code Description Data [place] rce(s) Supporting Document(s) Glucose [Mass/volume] in Capillary blood by Glucometer 88 mg/dL 70- 140 [facility] ID Date Data Source [id number] 03/16/2020 11:32:37 AM [facility] Value Range Interpretation Code Description Data [place] rce(s) Supporting Document(s) Glucose [Mass/volume] in Capillary blood by Glucometer 124 mg/dL 70- 140 [facility] ID Date Data Source [id number] 03/16/2020 08:05:42 AM [facility] Value Range Interpretation Code Description Data [place] rce(s) Supporting Document(s) Glucose [Mass/volume] in Capillary blood by Glucometer 104 mg/dL 70- 140 [facility] ID Date Data Source [id number] 03/16/2020 01:27:28 AM [facility] Name Value Range Interpretation Code Description Data [place] rce(s) Supporting Document(s) Bicarbonate [Moles/volume] in Serum 23 mmol/L 22-29 [facility] Chloride [Moles/volume] in Serum or Plasma 108 mmol/L 98-107 H [facility] Creatinine [Mass/volume] in Serum or Plasma 1.52 mg/dL 0.50-0.90 H [facility] Glucose [Mass/volume] in Serum or Plasma 151 mg/dL 70-140 H [facility] Potassium [Moles/volume] in Serum or Plasma 4.1 mmol/L 3.4-5.1 [facility] Sodium [Moles/volume] in Serum or Plasma 138 mmol/L 136-145 [facility] Urea nitrogen [Mass/volume] in Serum or Plasma 33 mg/dL 8-23 H [facility] Anion gap 3 in Serum or Plasma 8 mmol/L 8-15 [facility] Osmolality of Serum or Plasma by calculation 297 mosm/kg 275-300 [facility] Creatinine/Urea nitrogen [Mass Ratio] in Serum or Plasma 22 [facility] Calcium [Mass/volume] in Serum or Plasma 8.5 mg/dL 8.8-10.2 L [facility] Glomerular filtration rate/1.73 sq M pre dicted among non-blacks [Volume Rate/Area] in Serum or Plasma by Creatinine-based formula (MDRD) 35 mL/min/1.73m2 >60 L [facility] Glomerular filtration rate/1.73 sq M pre dicted among blacks [Volume Rate/Area] in Serum or Plasma by Creatinine-based formula (MDRD) 41 mL/min/1.73m2 >60 L [facility] ID Date Data Source [id number] 03/16/2020 01:27:28 AM [facility] Name Value Range Interpretation Code Description Data [place] rce(s) Supporting Document(s) Magnesium [Mass/volume] in Serum or Plasma 2.0 mg/dL 1.6-2.4 [facility] ID Date Data Source [id number] 03/16/2020 01:27:28 AM [facility] Value Range Interpretation Code Description Data [place] rce(s) Supporting Document(s) Phosphate [Mass/volume] in Serum or Plasma 3.2 mg/dL 2.5-4.5 [facility] ID Date Data Source [id number] 03/16/2020 02:45:58 AM [facility] Name Value Range Interpretation Code Description Data [place] rce(s) Supporting Document(s) Leukocytes [#/volume] in Blood by Automated count 0.5 10*3/uL 4-10 [facility] Called to and read back by kecia soto rn on 10h at 0120 by 2050 Erythrocytes [#/volume] in Blood by Automated count 2.44 10*6/uL 4.1- 5.3 L [facility] Hemoglobin [Mass/volume] in Blood 7.3 g/dL 11.5-15.5 [facility] Hematocrit [Volume Fraction] of Blood by Automated count 20.8 % 3 6-45 [facility] Called to and read back by kecia soto rn on 10h at 0120 by 2050 Erythrocyte mean corpuscular volume [Entitic volume] by Auto mated count 84.9 fL 80-96 [facility] Erythrocyte mean corpuscular hemoglobin [Entitic mass] by Automated count 30.0 pg 27-33 [facility] Erythrocyte mean corpuscular hemoglobin concentration [Mass/volume] by Automated count 35.4 g/dL 32.0-36.0 [facility] E[facility]th[facility] distribution width [Ratio] by Automated count 14.8 % 11.5-14.5 H [facility] Platelets [#/volume] in Blood by Automated count 18 10*3/uL 150-400 [facility] Called to and read back by kecia soto rn on 10h at 0120 by 2050 Differential cell count method - Blood [facility] Neutrophils/100 leukocytes in Blood by Automated count 1 % [facility] Lymphocytes/100 leukocytes in Blood by Automated count 86 % [facility] Eosinophils/100 leukocytes in Blood by Automated count 1 % [facility] Neutrophils [#/volume] in Blood by Automated count 0.01 10*3/uL 1.8-7 .0 L [facility] Lymphocytes [#/volume] in Blood by Automated count 0.43 10*3/uL 1.2-4 .0 L [facility] Eosinophils [#/volume] in Blood by Automated count 0.01 10*3/uL 0-0.5 [facility] Nucleated erythrocytes/100 leukocytes [Ratio] in Blood by Automated count 1 /100{WBCs} 0-0 H [facility] Variant lymphocytes/100 leukocytes in Blood by Manual count 2 % [facility] Blasts/100 leukocytes in Blood by Manual count 10 % [facility] Lymphocytes [#/volume] in Blood 0.01 10*3/uL 0 H [facility] Blasts [#/volume] in Blood by Manual count 0.05 10*3/uL 0-0 H [facility] Anisocytosis [Presence] in Blood by Light microscopy [facility] Microcytes [Presence] in Blood by Light microscopy [facility] ID Date Data Source [id number] 03/19/2020 02:10:00 PM [facility] Cytogenetics ReportName: PATRICIA COTTON V.MR N: [id number] Number: [id number] Date: 03/15/2020 23:49Received Date: 03/16/2020 09:08Physician(s): LISA VELEZ MD GENTILE, TERESA C,MDCopy To:VJ JONES,DOSpecimediane(s) ReceivedA: Peripheral Blood (U-IF)Clinical HistoryHistory of CMMLTEST REQUESTED/PERFORMED: Fluorescence in situ hybridization - FISH DiagnosisFISH analysis detected monosomy 5 in 41% and trisomy 8 in 6% of nucleiexamined. FISH was negative for deletion/rearrangement of the PDGFRA(4q12) and FGFR1 (8p12) loci; and negative for rearrangement of PDGFRB(2e08-m00)Previous Cytogenetic studies [TI24-341 (bone marrow) and LM70-138(peripheral blood)] showed monosomies 5 and 7, and additional material on17p by chromosome analysis. 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 FISH was negative for deletion/rearrangement of the PDGFRA(4q12) and FGFR1 (8p12) loci, ____Test DataSpecimen Processed: Peripheral BloodFluorescence in-situ Hybridization (FISH): 24 HR UnstimulatedProbe NormalCut-off Nuclei Analyzed FISH SIGNAL PATTERNS Normal Abnormal NKCSLSI PDGFRA (4q12) tricolor fusion: RABM1KF, LNX-SO, PDGFRA/KIT-SA 3% 100 2 tricolor fusion (G,O,A): 97% 0 % 3% *LSI PDGFRB (9l69-l88) - BA 3% 100 2Y: 58% 1Y: 41% 1% *LSI FGFR3 (8p12) R/G CEP 8 (D8Z2) - Aqua 3% 100 2RGA: 92% 3RGA: 6% 2% Vendor: [employer] or*[employer] Probes: LSI: Locus Specific Probe; BA: Break Apart; Fluorochromes/ Signals: SG: Spectrum Green; SO: Spectrum Shedd; SA:Spectrum Aqua; Y: Yellow Fusion NKCS: Signals with No Known Clinical SignificanceDisclaimer: Conventional chromosome analysis may not detect submicroscopicstructural chromosome abnormalities as well as aberrations present at lowpercentages. The FISH test was developed and its performance was validatedby the Cytogenetics section of the Department of Clinical Pathology. Thistest has not been cleared or approved by the U. S. Food and DrugAdministration (FDA). The FDA has determined that such approval is notnecessary. However, the procedure is considered investigational, andshould not be used as the sole criteria for diagnosis. Name Value Range Interpretation Code Description Data [place] rce(s) Supporting Document(s) ID Date Data Source [id number] 03/15/2020 10:18:13 PM [facility] Name Value Range Interpretation Code Description Data [place] rce(s) Supporting Document(s) Glucose [Mass/volume] in Capillary blood by Glucometer 150 mg/dL 70- 140 [facility] ID Date Data Source [id number] 03/15/2020 04:54:40 PM [facility] Name Value Range Interpretation Code Description Data [place] rce(s) Supporting Document(s) Glucose [Mass/volume] in Capillary blood by Glucometer 181 mg/dL 70- 140 H [facility] ID Date Data Source [id number] 03/15/2020 01:05:48 PM [facility] Name Value Range Interpretation Code Description Data [place] rce(s) Supporting Document(s) Leukocytes [#/volume] in Blood by Automated count 0.5 10*3/uL 4-10 [facility] Called to and read back by FELIZ Contreras RN AT 10H AT 1227 BY 1590 Erythrocytes [#/volume] in Blood by Automated count 2.76 10*6/uL 4.1- 5.3 L [facility] Hemoglobin [Mass/volume] in Blood 8.3 g/dL 11.5-15.5 [facility] Hematocrit [Volume Fraction] of Blood by Automated count 23.6 % 3 6-45 L [facility] Erythrocyte mean corpuscular volume [Entitic volume] by Auto mated count 85.7 fL 80-96 [facility] Erythrocyte mean corpuscular hemoglobin [Entitic mass] by Automated count 30.1 pg 27-33 [facility] Erythrocyte mean corpuscular hemoglobin concentration [Mass/volume] by Automated count 35.1 g/dL 32.0-36.0 [facility] E[facility]th[facility] distribution width [Ratio] by Automated count 14.8 % 11.5-14.5 H [facility] Platelets [#/volume] in Blood by Automated count 29 10*3/uL 150-400 [facility] Called to and read back by FELIZ Contreras RN AT 10H AT 1227 BY 1590 Differential cell count method - Blood [facility] Neutrophils/100 leukocytes in Blood by Automated count 5 % [facility] Lymphocytes/100 leukocytes in Blood by Automated count 77 % [facility] Eosinophils/100 leukocytes in Blood by Automated count 3 % [facility] Neutrophils [#/volume] in Blood by Automated count 0.02 10*3/uL 1.8-7 .0 L [facility] Lymphocytes [#/volume] in Blood by Automated count 0.39 10*3/uL 1.2-4 .0 L [facility] Eosinophils [#/volume] in Blood by Automated count 0.01 10*3/uL 0-0.5 [facility] Blasts/100 leukocytes in Blood by Manual count 15 % [facility] Blasts [#/volume] in Blood by Manual count 0.07 10*3/uL 0-0 H [facility] ID Date Data Source [id number] 03/15/2020 11:51:28 AM [facility] Name Value Range Interpretation Code Description Data [place] rce(s) Supporting Document(s) Glucose [Mass/volume] in Capillary blood by Glucometer 217 mg/dL 70- 140 H [facility] ID Date Data Source [id number] 03/15/2020 08:02:29 AM [facility] Value Range Interpretation Code Description Data [place] rce(s) Supporting Document(s) Glucose [Mass/volume] in Capillary blood by Glucometer 206 mg/dL 70- 140 H [facility] ID Date Data Source [id number] 03/15/2020 01:14:56 AM [facility] Value Range Interpretation Code Description Data [place] rce(s) Supporting Document(s) Bicarbonate [Moles/volume] in Serum 23 mmol/L 22-29 [facility] Chloride [Moles/volume] in Serum or Plasma 106 mmol/L 98-107 [facility] Creatinine [Mass/volume] in Serum or Plasma 1.55 mg/dL 0.50-0.90 H [facility] Glucose [Mass/volume] in Serum or Plasma 249 mg/dL 70-140 H [facility] Potassium [Moles/volume] in Serum or Plasma 4.0 mmol/L 3.4-5.1 [facility] Sodium [Moles/volume] in Serum or Plasma 138 mmol/L 136-145 [facility] Urea nitrogen [Mass/volume] in Serum or Plasma 41 mg/dL 8-23 H [facility] Anion gap 3 in Serum or Plasma 9 mmol/L 8-15 [facility] Osmolality of Serum or Plasma by calculation 304 mosm/kg 275-300 H [facility] Creatinine/Urea nitrogen [Mass Ratio] in Serum or Plasma 26 [facility] Calcium [Mass/volume] in Serum or Plasma 8.1 mg/dL 8.8-10.2 L [facility] Glomerular filtration rate/1.73 sq M pre dicted among non-blacks [Volume Rate/Area] in Serum or Plasma by Creatinine-based formula (MDRD) 34 mL/min/1.73m2 >60 L [facility] Glomerular filtration rate/1.73 sq M pre dicted among blacks [Volume Rate/Area] in Serum or Plasma by Creatinine-based formula (MDRD) 40 mL/min/1.73m2 >60 L [facility] ID Date Data Source [id number] 03/15/2020 01:14:56 AM [facility] Name Value Range Interpretation Code Description Data Cheyenne rce(s) Supporting Document(s) Magnesium [Mass/volume] in Serum or Plasma 2.0 mg/dL 1.6-2.4 [facility] ID Date Data Source [id number] 03/15/2020 01:14:56 AM [facility] Name Value Range Interpretation Code Description Data Cheyenne rce(s) Supporting Document(s) Phosphate [Mass/volume] in Serum or Plasma 3.8 mg/dL 2.5-4.5 [facility] ID Date Data Source [id number] 03/15/2020 03:35:11 AM [facility] Value Range Interpretation Code Description Data Cheyenne rce(s) Supporting Document(s) Leukocytes [#/volume] in Blood by Automated count 0.4 10*3/uL 4-10 [facility] No significant change since last result called Erythrocytes [#/volume] in Blood by Automated count 2.84 10*6/uL 4.1- 5.3 [facility] Hemoglobin [Mass/volume] in Blood 8.5 g/dL 11.5-15.5 [facility] Hematocrit [Volume Fraction] of Blood by Automated count 24.3 % 3 6-45 L [facility] Erythrocyte mean corpuscular volume [Entitic volume] by Auto mated count 85.5 fL 80-96 [facility] Erythrocyte mean corpuscular hemoglobin [Entitic mass] by Automated count 30.1 pg 27-33 [facility] Erythrocyte mean corpuscular hemoglobin concentration [Mass/volume] by Automated count 35.2 g/[facility].0[facility] width [Ratio] by Automated count 14.7 % 11.5-14.5 H [facility] Platelets [#/volume] in Blood by Automated count 34 10*3/uL 150-400 LL [facility] No significant change since last result called Differential cell count method - Blood [facility] Neutrophils/100 leukocytes in Blood by Automated count 3 % [facility] Lymphocytes/100 leukocytes in Blood by Automated count 75 % [facility] Monocytes/100 leukocytes in Blood by Automated count 3 % [facility] Basophils/100 leukocytes in Blood by Automated count 0 % [facility] Neutrophils [#/volume] in Blood by Automated count 0.01 10*3/uL 1.8-7 .0 L [facility] Lymphocytes [#/volume] in Blood by Automated count 0.30 10*3/uL 1.2-4 .0 L [facility] Monocytes [#/volume] in Blood by Automated count 0.01 10*3/uL 0-0.8 [facility] Basophils [#/volume] in Blood by Automated count 0.00 10*3/uL 0-0.2 [facility] Nucleated erythrocytes/100 leukocytes [Ratio] in Blood by Automated count 0 /100{WBCs} 0-0 [facility] Variant lymphocytes/100 leukocytes in Blood by Manual count 3 % [facility] Myelocytes/100 leukocytes in Blood by Manual count 1 % [facility] Metamyelocytes/100 leukocytes in Blood by Manual count 0 % [facility] Blasts/100 leukocytes in Blood by Manual count 15 % [facility] Lymphocytes [#/volume] in Blood 0.01 10*3/uL 0 H [facility] Myelocytes [#/volume] in Blood by Manual count 0.00 10*3/uL 0-0 [facility] Metamyelocytes [#/volume] in Blood by Manual count 0.00 10*3/uL 0-0 [facility] Blasts [#/volume] in Blood by Manual count 0.06 10*3/uL 0-0 H [facility] Anisocytosis [Presence] in Blood by Light microscopy [facility] ID Date Data Source [id number] 03/14/2020 11:02:51 PM [facility] Name Value Range Interpretation Code Description Data Cheyenne rce(s) Supporting Document(s) Glucose [Mass/volume] in Capillary blood by Glucometer 231 mg/dL 70- 140 H [facility] ID Date Data Source [id number] 03/14/2020 04:38:44 PM [facility] Name Value Range Interpretation Code Description Data Cheyenne rce(s) Supporting Document(s) Glucose [Mass/volume] in Capillary blood by Glucometer 111 mg/dL 70- 140 [facility] ID Date Data Source [id number] 03/14/2020 05:46:30 PM [facility] Name Value Range Interpretation Code Description Data Cheyenne rce(s) Supporting Document(s) Leukocytes [#/volume] in Blood by Automated count 0.5 10*3/uL 4-10 [facility] No significant change since last result called Erythrocytes [#/volume] in Blood by Automated count 2.22 10*6/uL 4.1- 5.3 [facility] Hemoglobin [Mass/volume] in Blood 6.6 g/dL 11.5-15.5 [facility] Hematocrit [Volume Fraction] of Blood by Automated count 19.3 % 3 6-45 [facility] No significant change since last result called Erythrocyte mean corpuscular volume [Entitic volume] by Auto mated count 86.8 fL 80-96 [facility] Erythrocyte mean corpuscular hemoglobin [Entitic mass] by Automated count 29.9 pg 27-33 [facility] Erythrocyte mean corpuscular hemoglobin concentration [Mass/volume] by Automated count 34.4 g/dL 32.0-36.0 [facility] E[facility]th[facility] distribution width [Ratio] by Automated count 14.5 % 11.5-14.5 [facility] Platelets [#/volume] in Blood by Automated count 36 10*3/uL 150-400 [facility] No significant change since last result called Differential cell count method - Blood [facility] Neutrophils/100 leukocytes in Blood by Automated count 1 % [facility] Lymphocytes/100 leukocytes in Blood by Automated count 85 % [facility] Neutrophils [#/volume] in Blood by Automated count 0.01 10*3/uL 1.8-7 .0 [facility] Lymphocytes [#/volume] in Blood by Automated count 0.43 10*3/uL 1.2-4 .0 L [facility] Variant lymphocytes/100 leukocytes in Blood by Manual count 1 % [facility] Myelocytes/100 leukocytes in Blood by Manual count 1 % [facility] Blasts/100 leukocytes in Blood by Manual count 12 % [facility] Lymphocytes [#/volume] in Blood 0.01 10*3/uL 0 H [facility] Myelocytes [#/volume] in Blood by Manual count 0.01 10*3/uL 0-0 H [facility] Blasts [#/volume] in Blood by Manual count 0.06 10*3/uL 0-0 H [facility] ID Date Data Source [id number] 03/14/2020 03:07:19 PM [facility] Name Value Range Interpretation Code Description Data Cheyenne rce(s) Supporting Document(s) Glucose [Mass/volume] in Capillary blood by Glucometer 104 mg/dL 70- 140 [facility] ID Date Data Source [id number] 03/14/2020 02:13:18 PM [facility] Name Value Range Interpretation Code Description Data Cheyenne rce(s) Supporting Document(s) [facility] [id number]/BSYrgHEDxd3HfVMbsTSa4PAwkKNMkE4ZmJMZ4rO3cGTU2QQyAWlTyPjRiGYW1 lbm [file] ICAgICAgICAgICAgICAgICAgICAgICAgICAgICAgIC AgICAgICAgICAgICAgICAgICAgICAgICAgICAgICAgICAgICAgICAgICAgICAgDQogICAgICAgICAgIC AgICAgICAgICAgICAgICAgICAgICAgICAgICAgICAgICAgICAgICAgICAgICAgICAgICAgICAgICAgIC AgICAgICAgICAgICAgICAgICAgICAgICAgICAgDQog ICAgICAgICAgICAgICAgICAgICAgICAgICAgICAgICAgICAgICAgICAgICAgICAgICAgICAgICAgICAg ICAgICAgICAgICAgICAgICAgICAgICAgICAgICAgICAgICAgICAgDQogICAgICAgICAgICAgICAgICAg ICAgICAgICAgICAgICAgICAgICAgICAgICAgICAgIC AgICAgICAgICAgICAgICAgICAgICAgICAgICAgICAgICAgICAgICAgICAgICAgICAgDQogICAgICAgIC AgICAgICAgICAgICAgICAgICAgICAgICAgICAgICAgICAgICAgICAgICAgICAgICAgICAgICAgICAgIC AgICAgICAgICAgICAgICAgICAgICAgICAgICAgICAg DQogICAgICAgICAgICAgICAgICAgICAgICAgICAgICAgICAgICAgICAgICAgICAgICAgICAgICAgICAg ICAgICAgICAgICAgICAgICAgICAgICAgICAgICAgICAgICAgICAgICAgDQogICAgICAgICAgICAgICAg ICAgICAgICAgICAgICAgICAgICAgICAgICAgICAgIC AgICAgICAgICAgICAgICAgICAgICAgICAgICAgICAgICAgICAgICAgICAgICAgICAgICAgDQogICAgIC AgICAgICAgICAgICAgICAgICAgICAgICAgICAgICAgICAgICAgICAgICAgICAgICAgICAgICAgICAgIC AgICAgICAgICAgICAgICAgICAgICAgICAgICAgICAg ICAgDQogICAgICAgICAgICAgICAgICAgICAgICAgICAgICAgICAgICAgICAgICAgICAgICAgICAgICAg ICAgICAgICAgICAgICAgICAgICAgICAgICAgICAgICAgICAgICAgICAgICAgDQogICAgICAgICAgICAg ICAgICAgICAgICAgICAgICAgICAgICAgICAgICAgIC NbPWHxMEQbZRYeDLWkZKCaWSTgEYPuGLYrQFRgYQIkYTPoIHOgRKWfGMTdSHVbBJUmXVSxTXLvAFu2T6 gvWPWkLLLzHZ0nDJf6Pk0+RFlVYpSwTVD9hfNduZ1BFR6wa7HfWIsjFWNcm8BiMGf9ZC1VBIHgLSsaEU 9ZKJqpcd3KEVMuEGFttBYZg4qqCkPhQDL6FPMwMing DM7MKOIhZ0wplxEoGBDjGWZJEUydRYATHPsyDCBZVQOaSFYxYxAoEoLjMDTeFVVtOTELLS2EPxJuN8Bf zK77CQILFj9+HWwwlcUvSokTOlP7BHEqm7YiAQu9SR2UJMByYnsda7WgMjQeOVWTFZdjSR3LDKV6GPNf MNSyJq2AXLOvT055toJqFW4IKm4ZAjWsIO9rpq1BNj QwVQEpJnfSBzf2QAzrYW6XmUSzOHtIm74rdHx8ecMmgAWWQIPsnqWKq8sfJTCOCCMagNOxIdN9XaCaKn TgPXw5GqnpED6lKVacIH3UGIP9LRyzBGLeXTPzM6tGDeLtEPPnLyLtuAvqXD4OOdRwV6NrwdRbnLUnRT AwIFINCj4+OCpkdjFnEauCQsLnUROjo6UuKHd5QQ8V ZVNrDFvyNN2FEKSfmU7zTZzbDA5TZbBnWhRbPMDJYaYwT40evXXxKPw7Y2AsHcPoOKYoHxbfRZCyPWkz TmFtZXMgWyBdDQogID4+ID4+BYorMX0UJTngrhCsIPTuUe0MQLNnGIGhMJ7iDTFsKHOsM7Z6vApvXFEC SaVdK8qmgujuNF1qQACyT214qMambhFyXWA7AGGpGm 9RXZQzTWO5ASLypUYnNewkIKMMQMlsDG7OvAJyDYJ8tK8tAOglHSXhYHVgL5oZAwDzhAqsWS60oLsmnx VsbCBdDQo+Am9FCC8rl5IdVNc1wdKePWxeBZTkYDfzYNFnPATzFKPwWVL0KFO2OXBORhQkGJIeWTOxCV avSZBuFXMkgx5CMVDzWSFfPGCzYnUxNGQaVEMlDJan QSHhXSKnOJB9MGWlQLZrOY6ICoEaPRHbZDVuDBezPDQcVZNsan8AJGKaWSDzOTExHQHzWCBiTNQnQUei RHCyLEW0XUU4BYGzTDRvNT6DOpLgEVYwTFbjUCQrWXBbCPVqbg4DAIGmPNUfObGlIZHmKCAwADIzCGcf BQNdQGVcXnZ5OHFvHAHpWI6RHcPwCQUzGLI0AbCzOD RlAOUiim3CIPUfRNNkViH2YoVvOPAcGNJsXSzsLVGsNNV4SLEuVVSvAGGlIK6FUuTpEKNiQgZ6CsIkJZ IePNLnhe3BJTUjKPRoYJm6FpLmLMDoCMJlONbeEDQcNOR5FrEhALDtQQZlYB0GEbLfWTUkTyE8WhxyHD ByMHEdju4QRKAlQNDaJDT1FNYnTXTbMFQrEAmlETUo VNH9ORq6OWQbVEGtZF3ISvPpSQMdKtA1IhslLXVeOWFplh5GXUElQCKvApugNUIiEUFaFXFlADgjEDVc KTV0DQQoKCYdZBSqEU9EBnNcGDWyDxozIOmiVNHqVAHutn8XQZLuKYMrMPVtAuVdGKDrIIVhTOeiUQIt ZYH1RCFiQVRjAMOpML4FLoReHEWlDiqiSoVdKOQeCX Iktz0WHUDmNHCzUNZ8HLPmFKBbXIUuIDmuNLUfZHO3XYI8BBAyNCVpJF9GMlVlBFLrHyw5RFFsHTZaJO Hcur1XVKFqTXZ7GCA0SlVmJSVbQWVjDSisDWBsFKUoKjZ9CAKlEQItKU9PYnGiVFKdEPM3GQnbOXXbMB Wldh4BuZTfeLzmcj6CRCcVSk6TvFyqSDIoHLsmCf2g zTGfSPYaKADAMb1VzsJdOSWhZPOBNFnbBUIuDXI4M5LtZdIrJ0ZbGXzxJBD5YaTnDvHhGXT6ITB2YkUu FdK2KbhdOILzOUNgU9EsYWEwIzd0YDMkCJZuBGx5AiDsHkP+PX8sZYq+Vq0Km3DensN8usEiPTu0CCb3 [id number]== ID Date Data Source [id number] 03/14/2020 11:42:19 AM [facility] Name Value Range Interpretation Code Description Data Cheyenne rce(s) Supporting Document(s) Glucose [Mass/volume] in Capillary blood by Glucometer 95 mg/dL 70- 140 [facility] ID Date Data Source [id number] 03/14/2020 09:29:25 AM [facility] Name Value Range Interpretation Code Description Data Cheyenne rce(s) Supporting Document(s) History and Physical [facility] [id number]/[id number]T2MVhFUiGtIgPnSNT7 lbm [file] [id number]== ID Date Data Source [id number] 03/14/2020 08:03:14 AM [facility] Name Value Range Interpretation Code Description Data Cheyenne rce(s) Supporting Document(s) Glucose [Mass/volume] in Capillary blood by Glucometer 98 mg/dL 70- 140 [facility] ID Date Data Source [id number] 03/16/2020 07:27:48 AM EST [facility] Name Value Range Interpretation Code Description Data Cheyenne rce(s) Supporting Document(s) Blood bank comment [facility] ID Date Data Source [id number] 03/14/2020 05:18:37 AM [facility] Name Value Range Interpretation Code Description Data Cheyenne rce(s) Supporting Document(s) Platelets [#/volume] in Blood by Automated count 22 10*3/uL 150-400 [facility] No significant change since last result called ID Date Data Source [id number] 03/14/2020 03:00:23 AM [facility] Name Value Range Interpretation Code Description Data Cheyenne rce(s) Supporting Document(s) Leukocytes [#/volume] in Blood by Automated count 0.7 10*3/uL 4-10 [facility] Called to and read back by Eve Sierra RN on 10H at 0105 by 1521 Erythrocytes [#/volume] in Blood by Automated count 2.38 10*6/uL 4.1- 5.3 L [facility] Hemoglobin [Mass/volume] in Blood 7.2 g/dL 11.5-15.5 [facility] Hematocrit [Volume Fraction] of Blood by Automated count 20.2 % 3 6-45 [facility] Called to and read back by Eve Sierra RN on 10H at 0105 by 1521 Erythrocyte mean corpuscular volume [Entitic volume] by Auto mated count 84.7 fL 80-96 [facility] Erythrocyte mean corpuscular hemoglobin [Entitic mass] by Automated count 30.2 pg 27-33 [facility] Erythrocyte mean corpuscular hemoglobin concentration [Mass/volume] by Automated count 35.7 g/dL 32.0-36.0 [facility] E[facility]th[facility] distribution width [Ratio] by Automated count 14.6 % 11.5-14.5 H [facility] Platelets [#/volume] in Blood by Automated count 11 10*3/uL 150-400 [facility] Called to and read back by Eve Sierra RN on 10H at 0105 by 1521 Differential cell count method - Blood [facility] Neutrophils/100 leukocytes in Blood by Automated count 1 % [facility] Lymphocytes/100 leukocytes in Blood by Automated count 82 % [facility] Monocytes/100 leukocytes in Blood by Automated count 0 % [facility] Eosinophils/100 leukocytes in Blood by Automated count 1 % [facility] Neutrophils [#/volume] in Blood by Automated count 0.01 10*3/uL 1.8-7 .0 L [facility] Lymphocytes [#/volume] in Blood by Automated count 0.57 10*3/uL 1.2-4 .0 L [facility] Monocytes [#/volume] in Blood by Automated count 0.00 10*3/uL 0-0.8 [facility] Eosinophils [#/volume] in Blood by Automated count 0.00 10*3/uL 0-0.5 [facility] Nucleated erythrocytes/100 leukocytes [Ratio] in Blood by Automated count 0 /100{WBCs} 0-0 [facility] Variant lymphocytes/100 leukocytes in Blood by Manual count 6 % [facility] Blasts/100 leukocytes in Blood by Manual count 10 % [facility] Lymphocytes [#/volume] in Blood 0.04 10*3/uL 0 H [facility] Blasts [#/volume] in Blood by Manual count 0.07 10*3/uL 0-0 H [facility] Anisocytosis [Presence] in Blood by Light microscopy [facility] Poikilocytosis [Presence] in Blood by Light microscopy [facility] ID Date Data Source [id number] 03/14/2020 01:25:37 AM [facility] Name Value Range Interpretation Code Description Data Cheyenne rce(s) Supporting Document(s) Phosphate [Mass/volume] in Serum or Plasma 2.8 mg/dL 2.5-4.5 [facility] ID Date Data Source [id number] 03/14/2020 01:25:37 AM [facility] Name Value Range Interpretation Code Description Data Cheyenne rce(s) Supporting Document(s) Magnesium [Mass/volume] in Serum or Plasma 1.7 mg/dL 1.6-2.4 [facility] ID Date Data Source [id number] 03/14/2020 01:25:37 AM [facility] Name Value Range Interpretation Code Description Data Cheyenne rce(s) Supporting Document(s) Bicarbonate [Moles/volume] in Serum 22 mmol/L 22-29 [facility] Chloride [Moles/volume] in Serum or Plasma 104 mmol/L 98-107 [facility] Creatinine [Mass/volume] in Serum or Plasma 1.66 mg/dL 0.50-0.90 H [facility] Glucose [Mass/volume] in Serum or Plasma 123 mg/dL 70-140 [facility] Potassium [Moles/volume] in Serum or Plasma 3.3 mmol/L 3.4-5.1 L [facility] Sodium [Moles/volume] in Serum or Plasma 134 mmol/L 136-145 L [facility] Urea nitrogen [Mass/volume] in Serum or Plasma 44 mg/dL 8-23 H [facility] Anion gap 3 in Serum or Plasma 7 mmol/L 8-15 L [facility] Osmolality of Serum or Plasma by calculation 290 mosm/kg 275-300 [facility] Creatinine/Urea nitrogen [Mass Ratio] in Serum or Plasma 27 [facility] Calcium [Mass/volume] in Serum or Plasma 8.1 mg/dL 8.8-10.2 L [facility] Glomerular filtration rate/1.73 sq M pre dicted among non-blacks [Volume Rate/Area] in Serum or Plasma by Creatinine-based formula (MDRD) 31 mL/min/1.73m2 >60 L [facility] Glomerular filtration rate/1.73 sq M pre dicted among blacks [Volume Rate/Area] in Serum or Plasma by Creatinine-based formula (MDRD) 36 mL/min/1.73m2 >60 L [facility] ID Date Data Source [id number] 03/13/2020 09:31:16 PM [facility] Value Range Interpretation Code Description Data Cheyenne rce(s) Supporting Document(s) Glucose [Mass/volume] in Capillary blood by Glucometer 155 mg/dL 70- 140 H [facility] ID Date Data Source [id number] 03/18/2020 10:15:58 AM [facility] Cmnt XXX-Imp : PORTMicroorganism XXX Cult : No growth 5 days Name Value Range Interpretation Code Description Data Cheyenne rce(s) Supporting Document(s) ID Date Data Source [id number] 03/18/2020 10:15:58 AM [facility] Cmnt XXX-Imp : R ARMMicroorganis m XXX Cult : No growth 5 days Name Value Range Interpretation Code Description Data Cheyenne rce(s) Supporting Document(s) ID Date Data Source [id number] 03/13/2020 09:20:34 PM [facility] Value Range Interpretation Code Description Data Cheyenne rce(s) Supporting Document(s) Color of Urine [facility] Clarity of Urine [employer] Specific gravity of Urine by Refractometry automated 1.009 1.003 -1.030 [facility] pH of Urine by Automated test strip 5.0 5.0-8.0 [facility] Protein [Mass/volume] in Urine by Automated test strip Neg [facility] Glucose [Mass/volume] in Urine by Automated test strip Neg [facility] Ketones [Mass/volume] in Urine by Automated test strip Neg [facility] Bilirubin.total [Presence] in Urine by Automated test strip Negative [facility] Hemoglobin [Presence] in Urine by Automated test strip Neg ative A [facility] Leukocyte esterase [Presence] in Urine by Automated test strip Negative [facility] Nitrite [Presence] in Urine by Automated test strip Negati ve [facility] Leukocytes [#/area] in Urine sediment by Automated count 0 -5 [facility] Erythrocytes [#/area] in Urine sediment by Automated count 0-3 [facility] Epithelial cells.squamous [#/area] in Urine sediment by Automate d count None A [facility] ID Date Data Source [id number] 03/18/2020 10:15:58 AM [facility] Service Cmnt XXX-Imp : L ARMMicroorganis m XXX Cult : No growth 5 days Name Value Range Interpretation Code Description Data Cheyenne rce(s) Supporting Document(s) ID Date Data Source [id number] 03/13/2020 08:14:35 PM 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 COMPARISON: DX XR CHEST FRONTAL ONLY [id number] PORTABLE 03/10/2020 6:45 PM FINDINGS: Tubes, catheters [...] THIS DOCUMENT HAS BEEN ELECTRONICALLY SIGNED BY EDWIN SPENCER MDThis document has been electronically signed by Edwin Spencer MD on 03/13/2020 8:14 PM Name Value Range Interpretation Code Description Data Cheyenne rce(s) Supporting Document(s) ID Date Data Source [id number] 03/13/2020 04:44:22 PM [facility] Name Value Range Interpretation Code Description Data Cehyenne rce(s) Supporting Document(s) Glucose [Mass/volume] in Capillary blood by Glucometer 130 mg/dL 70- 140 [facility] ID Date Data Source [id number] 03/16/2020 07:27:48 AM [facility] Performed at [facility], Amira Franks [place] ON 10H AT 0653 Name Value Range Interpretation Code Description Data Cheyenne rce(s) Supporting Document(s) ID Date Data Source [id number] 03/13/2020 11:39:55 AM [facility] Name Value Range Interpretation Code Description Data Cheyenne rce(s) Supporting Document(s) Glucose [Mass/volume] in Capillary blood by Glucometer 141 mg/dL 70- 140 H [facility] ID Date Data Source [id number] 03/13/2020 12:59:05 PM [facility] Name Value Range Interpretation Code Description Data Cheyenne rce(s) Supporting Document(s) Leukocytes [#/volume] in Blood by Automated count 0.6 10*3/uL 4-10 [facility] Called to and read back by KECIA SPENCER RN 10 [phone] [id number] Erythrocytes [#/volume] in Blood by Automated count 2.71 10*6/uL 4.1- 5.3 [facility] Hemoglobin [Mass/volume] in Blood 8.2 g/dL 11.5-15.5 L [facility] Hematocrit [Volume Fraction] of Blood by Automated count 23.2 % 3 6-45 L [facility] Erythrocyte mean corpuscular volume [Entitic volume] by Auto mated count 85.6 fL 80-96 [facility] Erythrocyte mean corpuscular hemoglobin [Entitic mass] by Automated count 30.3 pg 27-33 [facility] Erythrocyte mean corpuscular hemoglobin concentration [Mass/volume] by Automated count 35.3 g/dL 32.0-36.[facility] width [Ratio] by Automated count 14.7 % 11.5-14.5 H [facility] Platelets [#/volume] in Blood by Automated count 16 10*3/uL 150-400 LL [facility] Called to and read back by KECIA SPENCER RN [facility] [phone] [phone] Differential cell count method - Blood [facility] Neutrophils/100 leukocytes in Blood by Automated count 1 % [facility] Lymphocytes/100 leukocytes in Blood by Automated count 79 % [facility] Monocytes/100 leukocytes in Blood by Automated count 1 % [facility] Eosinophils/100 leukocytes in Blood by Automated count 1 % [facility] Basophils/100 leukocytes in Blood by Automated count 1 % [facility] Neutrophils [#/volume] in Blood by Automated count 0.00 10*3/uL 1.8-7 .0 L [facility] Lymphocytes [#/volume] in Blood by Automated count 0.46 10*3/uL 1.2-4 .0 L [facility] Monocytes [#/volume] in Blood by Automated count 0.01 10*3/uL 0-0.8 [facility] Eosinophils [#/volume] in Blood by Automated count 0.01 10*3/uL 0-0.5 [facility] Basophils [#/volume] in Blood by Automated count 0.00 10*3/uL 0-0.2 [facility] Nucleated erythrocytes/100 leukocytes [Ratio] in Blood by Automated count 0 /100{WBCs} 0-0 [facility] Variant lymphocytes/100 leukocytes in Blood by Manual count 5 % [facility] Myelocytes/100 leukocytes in Blood by Manual count 1 % [facility] Metamyelocytes/100 leukocytes in Blood by Manual count 0 % [facility] Blasts/100 leukocytes in Blood by Manual count 11 % [facility] Immature lymphocytes [Presence] in Blood by Manual count 0 % [facility] Lymphocytes [#/volume] in Blood 0.03 10*3/uL 0 H [facility] Myelocytes [#/volume] in Blood by Manual count 0.00 10*3/uL 0-0 [facility] Metamyelocytes [#/volume] in Blood by Manual count 0.00 10*3/uL 0-0 [facility] [facility] Bl[facility] [#/volume] in Blood by Manual count 0.07 10*3/uL 0-0 [facility] Abnormal lymphocytes [#/volume] in Blood 0.00 10*3/uL 0-0 [facility] Poikilocytosis [Presence] in Blood by Light microscopy [facility] Rouleaux [Presence] in Blood by Light microscopy [facility] Dwarf Megakaryocyte 3 % 0-0 [facility] ID Date Data Source [id number] 03/13/2020 07:43:20 AM [facility] Name Value Range Interpretation Code Description Data Cheyenne rce(s) Supporting Document(s) Glucose [Mass/volume] in Capillary blood by Glucometer 113 mg/dL 70- 140 [facility] ID Date Data Source [id number] 03/13/2020 02:10:44 AM [facility] Value Range Interpretation Code Description Data Cheyenne rce(s) Supporting Document(s) Phosphate [Mass/volume] in Serum or Plasma 3.5 mg/dL 2.5-4.5 [facility] ID Date Data Source [id number] 03/13/2020 02:10:44 AM [facility] Value Range Interpretation Code Description Data [place]yenne rce(s) Supporting Document(s) Magnesium [Mass/volume] in Serum or Plasma 1.8 mg/dL 1.6-2.4 [facility] ID Date Data Source [id number] 03/13/2020 02:10:44 AM [facility] Value Range Interpretation Code Description Data [place]yenne rce(s) Supporting Document(s) Bicarbonate [Moles/volume] in Serum 19 mmol/L 22-29 L [facility] Chloride [Moles/volume] in Serum or Plasma 109 mmol/L 98-107 [facility] Creatinine [Mass/volume] in Serum or Plasma 1.78 mg/dL 0.50-0.90 H [facility] Glucose [Mass/volume] in Serum or Plasma 134 mg/dL 70-140 [facility] Potassium [Moles/volume] in Serum or Plasma 3.6 mmol/L 3.4-5.1 [facility] Sodium [Moles/volume] in Serum or Plasma 136 mmol/L 136-145 [facility] Urea nitrogen [Mass/volume] in Serum or Plasma 42 mg/dL 8-23 H [facility] Anion gap 3 in Serum or Plasma 8 mmol/L 8-15 [facility] Osmolality of Serum or Plasma by calculation 294 mosm/kg 275-300 [facility] Creatinine/Urea nitrogen [Mass Ratio] in Serum or Plasma 24 [facility] Calcium [Mass/volume] in Serum or Plasma 8.0 mg/dL 8.8-10.2 L [facility] Glomerular filtration rate/1.73 sq M pre dicted among non-blacks [Volume Rate/Area] in Serum or Plasma by Creatinine-based formula (MDRD) 29 mL/min/1.73m2 >60 L [facility] Glomerular filtration rate/1.73 sq M pre dicted among blacks [Volume Rate/Area] in Serum or Plasma by Creatinine-based formula (MDRD) 33 mL/min/1.73m2 >60 L [facility] ID Date Data Source [id number] 03/13/2020 12:18:00 PM [facility] Name Value Range Interpretation Code Description Data [place]yenne rce(s) Supporting Document(s) Blood bank comment [facility] ID Date Data Source [id number] 03/13/2020 12:01:00 AM [facility] Name Value Range Interpretation Code Description Data [place] rce(s) Supporting Document(s) Leukocytes [#/volume] in Blood by Automated count 0.5 10*3/uL 4-10 [facility] No significant change since last result called Erythrocytes [#/volume] in Blood by Automated count 2.20 10*6/uL 4.1- 5.3 [facility] Hemoglobin [Mass/volume] in Blood 6.8 g/dL 11.5-15.5 [facility] Hematocrit [Volume Fraction] of Blood by Automated count 19.1 % 3 6-45 [facility] No significant change since last result called Erythrocyte mean corpuscular volume [Entitic volume] by Auto mated count 86.6 fL 80-96 [facility] Erythrocyte mean corpuscular hemoglobin [Entitic mass] by Automated count 30.8 pg 27-33 [facility] Erythrocyte mean corpuscular hemoglobin concentration [Mass/volume] by Automated count 35.6 g/dL 32.0-36[facility] width [Ratio] by Automated count 14.8 % 11.5-14.5 H [facility] Platelets [#/volume] in Blood by Automated count 26 10*3/uL 150-400 [facility] No significant change since last result called Differential cell count method - Blood [facility] Lymphocytes/100 leukocytes in Blood by Automated count 85 % [facility] Monocytes/100 leukocytes in Blood by Automated count 1 % [facility] Lymphocytes [#/volume] in Blood by Automated count 0.42 10*3/uL 1.2-4 .0 L [facility] Monocytes [#/volume] in Blood by Automated count 0.00 10*3/uL 0-0.8 [facility] Variant lymphocytes/100 leukocytes in Blood by Manual count 3 % [facility] Myelocytes/100 leukocytes in Blood by Manual count 1 % [facility] Blasts/100 leukocytes in Blood by Manual count 10 % [facility] Lymphocytes [#/volume] in Blood 0.01 10*3/uL 0 H [facility] Myelocytes [#/volume] in Blood by Manual count 0.00 10*3/uL 0-0 [facility] Blasts [#/volume] in Blood by Manual count 0.05 10*3/uL 0-0 H [facility] Anisocytosis [Presence] in Blood by Light microscopy [facility] ID Date Data Source [id number] 03/12/2020 09:21:29 PM [facility] Value Range Interpretation Code Description Data [place] rce(s) Supporting Document(s) Glucose [Mass/volume] in Capillary blood by Glucometer 184 mg/dL 70- 140 [facility] ID Date Data Source [id number] 03/12/2020 04:53:33 PM [facility] Value Range Interpretation Code Description Data [place] rce(s) Supporting Document(s) Glucose [Mass/volume] in Capillary blood by Glucometer 166 mg/dL 70- 140 [facility] ID Date Data Source [id number] 03/14/2020 07:22:17 AM [facility] Value Range Interpretation Code Description Data [place] rce(s) Supporting Document(s) Blood bank comment [facility] ID Date Data Source [id number] 03/12/2020 03:29:37 PM [facility] Value Range Interpretation Code Description Data [place] rce(s) Supporting Document(s) Platelets [#/volume] in Blood by Automated count 18 10*3/uL 150-400 [facility] No significant change since last result called ID Date Data Source [id number] 03/12/2020 12:44:54 PM [facility] NM GI BLOOD LOSS IMAGING [id number] RESU LTInterpreted by:Liliana Stevenson MDHISTORY: 65-year-old woman with history of GI bleed.TECHNIQUE: Immediately following the intravenous injection of 24 mCi of autologous red blood cells, multiple anterior sequential images of the abdomen and pelvis were obtained. COMPARISON is made to a CT abdomen pelvis dated 03/08/2020.FINDINGS: Normal physiologic activity is seen within blood pool, liver, spleen. Trace active bleeding is noted within the mid abdomen and left upper quadrant which appears to cross midline. No distinct activity is seen within the lower GI tract or rectum at the time of the study. These findings could be consistent with a small bowel bleed, however, exact localization is limited.IMPRESSION: Active GI bleed which may be of small bowel origin, however, localization is limited on this study.This document has been electronically signed by Liliana Stevenson MD on 03/12/2020 12:42 PM Name Value Range Interpretation Code Description Data [place] rce(s) Supporting Document(s) ID Date Data Source [id number] 03/12/2020 12:35:41 PM [facility] Name Value Range Interpretation Code Description Data [place] rce(s) Supporting Document(s) Glucose [Mass/volume] in Capillary blood by Glucometer 131 mg/dL 70- 140 [facility] ID Date Data Source [id number] 03/12/2020 09:57:00 AM [facility] Name Value Range Interpretation Code Description Data [place]yenne rce(s) Supporting Document(s) HLA Ab [Type] in Serum [facility] ID Date Data Source [id number] 03/14/2020 07:22:17 AM [facility] Performed at [facility], [facility] [place] [address] [id number] Name Value Range Interpretation Code Description Data [place] rce(s) Supporting Document(s) ID Date Data Source [id number] 03/12/2020 07:56:54 AM [facility] Name Value Range Interpretation Code Description Data [place] rce(s) Supporting Document(s) Glucose [Mass/volume] in Capillary blood by Glucometer 138 mg/dL 70- 140 [facility] ID Date Data Source [id number] 03/12/2020 05:45:08 AM [facility] Name Value Range Interpretation Code Description Data [place] rce(s) Supporting Document(s) Albumin [Mass/volume] in Serum or Plasma by Bromocresol green (BCG) dye binding method 2.3 g/dL 3.5-5.2 [facility] Bilirubin.total [Mass/volume] in Serum or Plasma 0.7 mg/dL <1.2 [facility] Calcium [Mass/volume] in Serum or Plasma 8.2 mg/dL 8.8-10.2 L [facility] Chloride [Moles/volume] in Serum or Plasma 113 mmol/L 98-107 H [facility] Creatinine [Mass/volume] in Serum or Plasma 1.64 mg/dL 0.50-0.90 H [facility] Glucose [Mass/volume] in Serum or Plasma 130 mg/dL 70-140 [facility] Alkaline phosphatase [Enzymatic activity/volume] in Serum or Plasma 74 U/L 35-104 [facility] Potassium [Moles/volume] in Serum or Plasma 4.0 mmol/L 3.4-5.1 [facility] Protein [Mass/volume] in Serum or Plasma 4.5 g/dL 6.4-8.3 L [facility] Sodium [Moles/volume] in Serum or Plasma 135 mmol/L 136-145 L [facility] Aspartate aminotransferase [Enzymatic activity/volume] in Se rum or Plasma 5 U/L <32 [facility] Urea nitrogen [Mass/volume] in Serum or Plasma 43 mg/dL 8-23 H [facility] Osmolality of Serum or Plasma by calculation 293 mosm/kg 275-300 [facility] Creatinine/Urea nitrogen [Mass Ratio] in Serum or Plasma 26 [facility] Bicarbonate [Moles/volume] in Serum 16 mmol/L 22-29 L [facility] Alanine aminotransferase [Enzymatic activity/volume] in Seru m or Plasma 5 U/L <33 [facility] Anion gap 3 in Serum or Plasma 6 mmol/L 8-15 L [facility] Glomerular filtration rate/1.73 sq M pre dicted among non-blacks [Volume Rate/Area] in Serum or Plasma by Creatinine-based formula (MDRD) 32 mL/min/1.73m2 >60 L [facility] Glomerular filtration rate/1.73 sq M pre dicted among blacks [Volume Rate/Area] in Serum or Plasma by Creatinine-based formula (MDRD) 37 mL/min/1.73m2 >60 L [facility] ID Date Data Source [id number] 03/12/2020 05:45:08 AM [facility] Name Value Range Interpretation Code Description Data [place] rce(s) Supporting Document(s) Magnesium [Mass/volume] in Serum or Plasma 2.0 mg/dL 1.6-2.4 [facility] ID Date Data Source [id number] 03/12/2020 05:45:08 AM [facility] Name Value Range Interpretation Code Description Data [place] rce(s) Supporting Document(s) Phosphate [Mass/volume] in Serum or Plasma 3.1 mg/dL 2.5-4.5 [facility] ID Date Data Source [id number] 03/12/2020 08:11:17 AM [facility] Name Value Range Interpretation Code Description Data [place] rce(s) Supporting Document(s) Leukocytes [#/volume] in Blood by Automated count 0.5 10*3/uL 4-10 [facility] No significant change since last result called Erythrocytes [#/volume] in Blood by Automated count 2.09 10*6/uL 4.1- 5.3 L [facility] Hemoglobin [Mass/volume] in Blood 6.5 g/dL 11.5-15.5 [facility] Hematocrit [Volume Fraction] of Blood by Automated count 18.3 % 3 6-45 [facility] No significant change since last result called Erythrocyte mean corpuscular volume [Entitic volume] by Auto mated count 87.7 fL 80-96 [facility] Erythrocyte mean corpuscular hemoglobin [Entitic mass] by Automated count 31.0 pg 27-33 [facility] Erythrocyte mean corpuscular hemoglobin concentration [Mass/volume] by Automated count 35.3 g/dL 32.0-36.0 [facility] Erythrocyte distribution width [Ratio] by Automated count 13.8 % 11.5-14.5 [facility] Platelets [#/volume] in Blood by Automated count 10 10*3/uL 150-400 [facility] No significant change since last result called Differential cell count method - Blood [facility] Neutrophils/100 leukocytes in Blood by Automated count 1 % [facility] Lymphocytes/100 leukocytes in Blood by Automated count 87 % [facility] Monocytes/100 leukocytes in Blood by Automated count 0 % [facility] Eosinophils/100 leukocytes in Blood by Automated count 1 % [facility] Basophils/100 leukocytes in Blood by Automated count 0 % [facility] Neutrophils [#/volume] in Blood by Automated count 0.01 10*3/uL 1.8-7 .0 L [facility] Lymphocytes [#/volume] in Blood by Automated count 0.43 10*3/uL 1.2-4 .0 L [facility] Monocytes [#/volume] in Blood by Automated count 0.00 10*3/uL 0-0.8 [facility] Eosinophils [#/volume] in Blood by Automated count 0.01 10*3/uL 0-0.5 [facility] Basophils [#/volume] in Blood by Automated count 0.00 10*3/uL 0-0.2 [facility] Nucleated erythrocytes/100 leukocytes [Ratio] in Blood by Automated count 2 /100{WBCs} 0-0 H [facility] Variant lymphocytes/100 leukocytes in Blood by Manual count 3 % [facility] Myelocytes/100 leukocytes in Blood by Manual count 0 % [facility] Blasts/100 leukocytes in Blood by Manual count 8 % [facility] Lymphocytes [#/volume] in Blood 0.01 10*3/uL 0 H [facility] Myelocytes [#/volume] in Blood by Manual count 0.00 10*3/uL 0-0 [facility] Blasts [#/volume] in Blood by Manual count 0.04 10*3/uL 0-0 [facility] ID Date Data Source [id number] 03/11/2020 09:39:59 PM [facility] Name Value Range Interpretation Code Description Data [place] rce(s) Supporting Document(s) Glucose [Mass/volume] in Capillary blood by Glucometer 128 mg/dL 70- 140 [facility] ID Date Data Source [id number] 03/11/2020 06:00:21 PM [facility] Name Value Range Interpretation Code Description Data [place] rce(s) Supporting Document(s) Leukocytes [#/volume] in Blood by Automated count 0.5 10*3/uL 4-10 [facility] No significant change since last result called Erythrocytes [#/volume] in Blood by Automated count 2.19 10*6/uL 4.1- 5.3 L [facility] Hemoglobin [Mass/volume] in Blood 6.8 g/dL 11.5-15.5 [facility] Hematocrit [Volume Fraction] of Blood by Automated count 19.1 % 3 6-45 [facility] No significant change since last result called Erythrocyte mean corpuscular volume [Entitic volume] by Auto mated count 87.1 fL 80-96 [facility] Erythrocyte mean corpuscular hemoglobin [Entitic mass] by Automated count 31.0 pg 27-33 [facility] Erythrocyte mean corpuscular hemoglobin concentration [Mass/volume] by Automated count 35.5 g/dL 32.0-36.0 [facility] Erythrocyte distribution width [Ratio] by Automated count 14.1 % 11.5-14.5 [facility] Platelets [#/volume] in Blood by Automated count 13 10*3/uL 150-400 [facility] No significant change since last result called Differential cell count method - Blood [facility] Neutrophils/100 leukocytes in Blood by Automated count 1 % [facility] Lymphocytes/100 leukocytes in Blood by Automated count 84 % [facility] Monocytes/100 leukocytes in Blood by Automated count 2 % [facility] Eosinophils/100 leukocytes in Blood by Automated count 1 % [facility] Neutrophils [#/volume] in Blood by Automated count 0.01 10*3/uL 1.8-7 .0 L [facility] Lymphocytes [#/volume] in Blood by Automated count 0.42 10*3/uL 1.2-4 .0 L [facility] Monocytes [#/volume] in Blood by Automated count 0.01 10*3/uL 0-0.8 [facility] Eosinophils [#/volume] in Blood by Automated count 0.01 10*3/uL 0-0.5 [facility] Nucleated erythrocytes/100 leukocytes [Ratio] in Blood by Automated count 1 /100{WBCs} 0-0 H [facility] Variant lymphocytes/100 leukocytes in Blood by Manual count 5 % [facility] Myelocytes/100 leukocytes in Blood by Manual count 1 % [facility] Blasts/100 leukocytes in Blood by Manual count 6 % [facility] Lymphocytes [#/volume] in Blood 0.03 10*3/uL 0 H [facility] Myelocytes [#/volume] in Blood by Manual count 0.01 10*3/uL 0-0 H [facility] Blasts [#/volume] in Blood by Manual count 0.03 10*3/uL 0-0 H [facility] ID Date Data Source [id number] 03/11/2020 04:37:05 PM [facility] Name Value Range Interpretation Code Description Data [place] rce(s) Supporting Document(s) Glucose [Mass/volume] in Capillary blood by Glucometer 137 mg/dL 70- 140 [facility] ID Date Data Source [id number] 03/13/2020 07:51:27 AM [facility] Value Range Interpretation Code Description Data [place] rce(s) Supporting Document(s) Blood bank comment [facility] ID Date Data Source [id number] 03/11/2020 12:57:44 PM [facility] Service Cmnt XXX-Imp : NoneOB Pnl Stl : Hemoccult slide is positive. This test detects blood from the upper and lower GI tract, however, it lacks specificity due to drug and dietary interferences. For the highly specific detection of blood (hemoglobin) from the lower tract without the need for prior patient preparation, order Fecal Occult Blood, Lower GI (Hemoccult-ICT). Name Value Range Interpretation Code Description Data [place] rce(s) Supporting Document(s) ID Date Data Source [id number] 03/11/2020 12:03:04 PM [facility] Value Range Interpretation Code Description Data [place] rce(s) Supporting Document(s) Glucose [Mass/volume] in Capillary blood by Glucometer 98 mg/dL 70- 140 [facility] ID Date Data Source [id number] 03/11/2020 07:48:58 AM [facility] Value Range Interpretation Code Description Data [place] rce(s) Supporting Document(s) Glucose [Mass/volume] in Capillary blood by Glucometer 97 mg/dL 70- 140 [facility] ID Date Data Source [id number] 03/16/2020 07:27:48 AM [facility] Value Range Interpretation Code Description Data [place] rce(s) Supporting Document(s) ABO and Rh group [Type] in Blood [facility] Blood group antibody screen [Presence] in Serum or Plasma [facility] Blood bank comment [facility] ID Date Data Source [id number] 03/12/2020 11:40:48 AM [facility] Service Cmnt XXX-Imp : NoneMicroorganism XXX Cult : No growth 1 day Name Value Range Interpretation Code Description Data [place]yenne rce(s) Supporting Document(s) ID Date Data Source [id number] 03/11/2020 01:14:23 AM [facility] Value Range Interpretation Code Description Data [place] rce(s) Supporting Document(s) Bicarbonate [Moles/volume] in Serum 16 mmol/L 22-29 L [facility] Chloride [Moles/volume] in Serum or Plasma 114 mmol/L 98-107 H [facility] Creatinine [Mass/volume] in Serum or Plasma 1.39 mg/dL 0.50-0.90 [facility] Glucose [Mass/volume] in Serum or Plasma 114 mg/dL 70-140 [facility] Potassium [Moles/volume] in Serum or Plasma 4.3 mmol/L 3.4-5.1 [facility] Sodium [Moles/volume] in Serum or Plasma 136 mmol/L 136-145 [facility] Urea nitrogen [Mass/volume] in Serum or Plasma 42 mg/dL 8-23 H [facility] Anion gap 3 in Serum or Plasma 6 mmol/L 8-15 [facility] Osmolality of Serum or Plasma by calculation 293 mosm/kg 275-300 [facility] Creatinine/Urea nitrogen [Mass Ratio] in Serum or Plasma 30 [facility] Calcium [Mass/volume] in Serum or Plasma 7.4 mg/dL 8.8-10.2 L [facility] Glomerular filtration rate/1.73 sq M pre dicted among non-blacks [Volume Rate/Area] in Serum or Plasma by Creatinine-based formula (MDRD) 39 mL/min/1.73m2 >60 L [facility] Glomerular filtration rate/1.73 sq M pre dicted among blacks [Volume Rate/Area] in Serum or Plasma by Creatinine-based formula (MDRD) 45 mL/min/1.73m2 >60 L [facility] ID Date Data Source [id number] 03/11/2020 01:14:23 AM [facility] Name Value Range Interpretation Code Description Data [place] rce(s) Supporting Document(s) Magnesium [Mass/volume] in Serum or Plasma 1.9 mg/dL 1.6-2.4 [facility] ID Date Data Source [id number] 03/11/2020 01:14:23 AM [facility] Name Value Range Interpretation Code Description Data [place] rce(s) Supporting Document(s) Phosphate [Mass/volume] in Serum or Plasma 2.7 mg/dL 2.5-4.5 [facility] ID Date Data Source [id number] 03/11/2020 01:14:23 AM [facility] Name Value Range Interpretation Code Description Data [place] rce(s) Supporting Document(s) Vancomycin [Mass/volume] in Serum or Plasma 19.9 ug/mL [facility] ID Date Data Source [id number] 03/11/2020 01:42:20 AM [facility] Name Value Range Interpretation Code Description Data [place] rce(s) Supporting Document(s) Leukocytes [#/volume] in Blood by Automated count 0.4 10*3/uL 4-10 [facility] No significant change since last result called Erythrocytes [#/volume] in Blood by Automated count 1.87 10*6/uL 4.1- 5.3 L [facility] Hemoglobin [Mass/volume] in Blood 5.7 g/dL 11.5-15.5 [facility] Hematocrit [Volume Fraction] of Blood by Automated count 16.5 % 3 6-45 [facility] No significant change since last result called Erythrocyte mean corpuscular volume [Entitic volume] by Auto mated count 88.2 fL 80-96 [facility] Erythrocyte mean corpuscular hemoglobin [Entitic mass] by Automated count 30.4 pg 27-33 [facility] Erythrocyte mean corpuscular hemoglobin concentration [Mass/volume] by Automated count 34.5 g/dL 32.0-36.0 [facility] Erythrocyte distribution width [Ratio] by Automated count 14.0 % 11.5-14.5 [facility] Platelets [#/volume] in Blood by Automated count 11 10*3/uL 150-400 [facility] No significant change since last result called Differential cell count method - Blood [facility] Lymphocytes/100 leukocytes in Blood by Automated count 88 % [facility] Monocytes/100 leukocytes in Blood by Automated count 2 % [facility] Lymphocytes [#/volume] in Blood by Automated count 0.35 10*3/uL 1.2-4 .0 L [facility] Monocytes [#/volume] in Blood by Automated count 0.01 10*3/uL 0-0.8 [facility] Variant lymphocytes/100 leukocytes in Blood by Manual count 4 % [facility] Blasts/100 leukocytes in Blood by Manual count 6 % [facility] Lymphocytes [#/volume] in Blood 0.02 10*3/uL 0 H [facility] Blasts [#/volume] in Blood by Manual count 0.03 10*3/uL 0-0 H [facility] ID Date Data Source [id number] 03/10/2020 09:21:11 PM [facility] Name Value Range Interpretation Code Description Data [place]yenne rce(s) Supporting Document(s) Glucose [Mass/volume] in Capillary blood by Glucometer 135 mg/dL 70- 140 [facility] ID Date Data Source [id number] 03/12/2020 07:46:13 AM [facility] Service Cmnt XXX-Imp : NoneMicroorganism XXX Cult : NO Methicillin resistant Staphylococcus aureus isolated Name Value Range Interpretation Code Description Data Cheyenne rce(s) Supporting Document(s) ID Date Data Source [id number] 03/10/2020 07:00:25 PM 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 COMPARISON: DX XR CHEST FRONTAL ONLY [id number] PORTABLE 03/06/2020 11:56 PM FINDINGS: Tubes, catheters and devices: AICD on left. Right port catheter unchanged. Lungs: Prominent interstitial markings and peribronchial thickening suggesting reactive airway disease. No consolidation. Pleural space: No pleural effusion. No pneumothorax. Heart/Mediastinum: Cardiac silhouette enlarged. Calcified tortuous aorta. Bones/joints: Unremarkable. IMPRESSION: No acute infiltrate.THIS DOCUMENT HAS BEEN ELECTRONICALLY SIGNED BY ADELAIDA PEÑA MDThis document has been electronically signed by Adelaida Peña MD on 03/10/2020 7:00 PM Name Value Range Interpretation Code Description Data Cheyenne rce(s) Supporting Document(s) ID Date Data Source [id number] 03/15/2020 09:14:16 AM [facility] Cmnt XXX-Imp : PORTMicroorganism XXX Cult : No growth 5 days Name Value Range Interpretation Code Description Data Cheyenne rce(s) Supporting Document(s) ID Date Data Source [id number] 03/15/2020 09:14:16 AM [facility] Service Cmnt XXX-Imp : R HANDMicroorgani sm XXX Cult : No growth 5 days Name Value Range Interpretation Code Description Data Cheyenne rce(s) Supporting Document(s) ID Date Data Source [id number] 03/10/2020 05:20:13 PM [facility] Value Range Interpretation Code Description Data Cheyenne rce(s) Supporting Document(s) Glucose [Mass/volume] in Capillary blood by Glucometer 88 mg/dL 70- 140 [facility] ID Date Data Source [id number] 03/10/2020 11:35:18 AM [facility] Value Range Interpretation Code Description Data Cheyenne rce(s) Supporting Document(s) Glucose [Mass/volume] in Capillary blood by Glucometer 77 mg/dL [address] [place] [address] ID Date Data Source [id number] 03/10/2020 10:04:32 AM [facility] Value Range Interpretation Code Description Data Cheyenne rce(s) Supporting Document(s) Platelets [#/volume] in Blood by Automated count 19 10*3/uL 150-400 [facility] Called to and read back by kimberly molina rn in 10h at 1000 1268 ID Date Data Source [id number] 03/10/2020 07:57:00 AM [facility] Value Range Interpretation Code Description Data Cheyenne rce(s) Supporting Document(s) Glucose [Mass/volume] in Capillary blood by Glucometer 91 mg/dL 70 140 [facility] ID Date Data Source [id number] 03/12/2020 08:58:45 AM [facility] Value Range Interpretation Code Description Data Cheyenne rce(s) Supporting Document(s) Blood bank comment [facility] ID Date Data Source [id number] 03/10/2020 02:17:03 AM [facility] Name Value Range Interpretation Code Description Data Cheyenne rce(s) Supporting Document(s) Bicarbonate [Moles/volume] in Serum 17 mmol/L 22-29 L [facility] Chloride [Moles/volume] in Serum or Plasma 113 mmol/L 98-107 H [facility] Creatinine [Mass/volume] in Serum or Plasma 1.35 mg/dL 0.50-0.90 H [facility] Glucose [Mass/volume] in Serum or Plasma 100 mg/dL 70-140 [facility] Potassium [Moles/volume] in Serum or Plasma 4.5 mmol/L 3.4-5.1 [facility] Sodium [Moles/volume] in Serum or Plasma 137 mmol/L 136-145 [facility] Urea nitrogen [Mass/volume] in Serum or Plasma 43 mg/dL 8-23 H [facility] Anion gap 3 in Serum or Plasma 7 mmol/L 8-15 L [facility] Osmolality of Serum or Plasma by calculation 295 mosm/kg 275-300 [facility] Creatinine/Urea nitrogen [Mass Ratio] in Serum or Plasma 32 [facility] Calcium [Mass/volume] in Serum or Plasma 7.6 mg/dL 8.8-10.2 L [facility] Glomerular filtration rate/1.73 sq M pre dicted among non-blacks [Volume Rate/Area] in Serum or Plasma by Creatinine-based formula (MDRD) 40 mL/min/1.73m2 >60 L [facility] Glomerular filtration rate/1.73 sq M pre dicted among blacks [Volume Rate/Area] in Serum or Plasma by Creatinine-based formula (MDRD) 47 mL/min/1.73m2 >60 L [facility] ID Date Data Source [id number] 03/10/2020 02:17:03 AM [facility] Name Value Range Interpretation Code Description Data [place]yenne rce(s) Supporting Document(s) Magnesium [Mass/volume] in Serum or Plasma 1.9 mg/dL 1.6-2.4 [facility] ID Date Data Source [id number] 03/10/2020 02:17:03 AM [facility] Value Range Interpretation Code Description Data [place]yenne rce(s) Supporting Document(s) Phosphate [Mass/volume] in Serum or Plasma 3.0 mg/dL 2.5-4.5 [facility] ID Date Data Source [id number] 03/10/2020 03:11:24 AM [facility] Hospital Name Value Range Interpretation Code Description Data [place]yenne rce(s) Supporting Document(s) Leukocytes [#/volume] in Blood by Automated count 0.5 10*3/uL 4-10 [facility] Called to and read back by Kaitlyn irvin RN, 10H, 02:00. 1663 Erythrocytes [#/volume] in Blood by Automated count 2.06 10*6/uL 4.1- 5.3 [facility] Hemoglobin [Mass/volume] in Blood 6.3 g/dL 11.5-15.5 [facility] Hematocrit [Volume Fraction] of Blood by Automated count 18.1 % 3 6-45 [facility] Called to and read back by Kaitlyn irvin RN, 10H, 02:00. 1663 Erythrocyte mean corpuscular volume [Entitic volume] by Auto mated count 88.1 fL 80-96 [facility] Erythrocyte mean corpuscular hemoglobin [Entitic mass] by Automated count 30.8 pg 27-33 [facility] Erythrocyte mean corpuscular hemoglobin concentration [Mass/volume] by Automated count 34.9 g/dL 32.0-36.[facility] width [Ratio] by Automated count 13.9 % 11.5-14.5 [facility] Platelets [#/volume] in Blood by Automated count 6 10*3/uL 150-400 [facility] Called to and read back by Kaitlyn irvin RN, 10H, 02:00. 1663 Differential cell count method - Blood [facility] Neutrophils/100 leukocytes in Blood by Automated count 1 % [facility] Lymphocytes/100 leukocytes in Blood by Automated count 83 % [facility] Monocytes/100 leukocytes in Blood by Automated count 2 % [facility] Neutrophils [#/volume] in Blood by Automated count 0.01 10*3/uL 1.8-7 .0 L [facility] Lymphocytes [#/volume] in Blood by Automated count 0.42 10*3/uL 1.2-4 .0 [facility] Monocytes [#/volume] in Blood by Automated count 0.01 10*3/uL 0-0.8 [facility] Nucleated erythrocytes/100 leukocytes [Ratio] in Blood by Automated count 1 /100{WBCs} 0-0 H [facility] Variant lymphocytes/100 leukocytes in Blood by Manual count 5 % [facility] Blasts/100 leukocytes in Blood by Manual count 9 % [facility] Lymphocytes [#/volume] in Blood 0.02 10*3/uL 0 H [facility] Blasts [#/volume] in Blood by Manual count 0.04 10*3/uL 0-0 H [facility] Anisocytosis [Presence] in Blood by Light microscopy [facility] ID Date Data Source [id number] 03/09/2020 09:20:58 PM [facility] Name Value Range Interpretation Code Description Data Cheyenne rce(s) Supporting Document(s) Glucose [Mass/volume] in Capillary blood by Glucometer 90 mg/dL 70- 140 [facility] ID Date Data Source [id number] 03/09/2020 04:47:46 PM [facility] Value Range Interpretation Code Description Data [place]yenne rce(s) Supporting Document(s) Glucose [Mass/volume] in Capillary blood by Glucometer 102 mg/dL 70- 140 [facility] ID Date Data Source [id number] 03/09/2020 01:06:57 PM [facility] Value Range Interpretation Code Description Data Cheyenne rce(s) Supporting Document(s) [facility] [id number]RB5nX1dDOU0MMuCTxFcLqBfEHEi lbm [file] [id number]= ID Date Data Source [id number] 03/09/2020 01:57:31 PM [facility] Name Value Range Interpretation Code Description Data [place]yenne rce(s) Supporting Document(s) Folate [Mass/volume] in Serum or Plasma 7.21 ng/mL >4.77 [facility] ID Date Data Source [id number] 03/09/2020 01:35:22 PM [facility] Name Value Range Interpretation Code Description Data [place]yenne rce(s) Supporting Document(s) Leukocytes [#/volume] in Blood by Automated count 0.6 10*3/uL 4-10 [facility] Called to and read back by feliz contreras rn in 10h at 1253 1268 Erythrocytes [#/volume] in Blood by Automated count 2.47 10*6/uL 4.1- 5.3 [facility] Hemoglobin [Mass/volume] in Blood 7.6 g/dL 11.5-15.5 [facility] Hematocrit [Volume Fraction] of Blood by Automated count 21.7 % 3 6-45 [facility] Called to and read back by feliz contreras rn in 10h at 1253 1268 Erythrocyte mean corpuscular volume [Entitic volume] by Auto mated count 88.1 fL 80-96 [facility] Erythrocyte mean corpuscular hemoglobin [Entitic mass] by Automated count 30.7 pg 27-33 [facility] Erythrocyte mean corpuscular hemoglobin concentration [Mass/volume] by Automated count 34.9 g/dL 32.0-36.0 [facility] E[facility]th[facility] distribution width [Ratio] by Automated count 13.9 % 11.5-14.5 [facility] Platelets [#/volume] in Blood by Automated count 10 10*3/uL 150-400 [facility] Called to and read back by feliz contreras rn in 10h at 1253 1268 Differential cell count method - Blood [facility] Neutrophils/100 leukocytes in Blood by Automated count 7 % [facility] Lymphocytes/100 leukocytes in Blood by Automated count 81 % [facility] Monocytes/100 leukocytes in Blood by Automated count 1 % [facility] Eosinophils/100 leukocytes in Blood by Automated count 2 % [facility] Basophils/100 leukocytes in Blood by Automated count 1 % [facility] Neutrophils [#/volume] in Blood by Automated count 0.04 10*3/uL 1.8-7 .0 [facility] Lymphocytes [#/volume] in Blood by Automated count 0.49 10*3/uL 1.2-4 .0 L [facility] Monocytes [#/volume] in Blood by Automated count 0.01 10*3/uL 0-0.8 [facility] Eosinophils [#/volume] in Blood by Automated count 0.01 10*3/uL 0-0.5 [facility] Basophils [#/volume] in Blood by Automated count 0.01 10*3/uL 0-0.2 [facility] Nucleated erythrocytes/100 leukocytes [Ratio] in Blood by Automated count 1 /100{WBCs} 0-0 H [facility] Myelocytes/100 leukocytes in Blood by Manual count 1 % [facility] Blasts/100 leukocytes in Blood by Manual count 7 % [facility] Myelocytes [#/volume] in Blood by Manual count 0.01 10*3/uL 0-0 H [facility] Blasts [#/volume] in Blood by Manual count 0.04 10*3/uL 0-0 H [facility] ID Date Data Source [id number] 03/09/2020 11:37:59 AM [facility] Value Range Interpretation Code Description Data Cheyenne rce(s) Supporting Document(s) Glucose [Mass/volume] in Capillary blood by Glucometer 83 mg/dL 70- 140 [facility] ID Date Data Source [id number] 03/09/2020 10:05:17 AM [facility] Value Range Interpretation Code Description Data [place]yenne rce(s) Supporting Document(s) Reticulocytes/100 erythrocytes in Blood by Automated count 0.3 % 0.6-2.8 [facility] Reticulocytes [#/volume] in Blood 7.2 10*3/uL 26-122 [facility] Immature reticulocytes/Reticulocytes.total in Blood 0.21 % 0.26-0 .52 [facility] ID Date Data Source [id number] 03/09/2020 10:17:46 AM [facility] Value Range Interpretation Code Description Data Cheyenne rce(s) Supporting Document(s) Fibrinogen [Mass/volume] in Platelet poor plasma by Coagulat ion assay 386 mg/dl 190-450 [facility] ID Date Data Source [id number] 03/09/2020 10:17:46 AM [facility] Value Range Interpretation Code Description Data Cheyenne rce(s) Supporting Document(s) Prothrombin time (PT) 15.9 s 12.5-14.9 H [facility] INR in Platelet poor plasma by Coagulation assay 1.26 [facility] Routine intensity oral anticoagulation I NR is typically 2.0-3.0. Target INR must be clinically individualized. ID Date Data Source [id number] 03/09/2020 10:17:46 AM [facility] Value Range Interpretation Code Description Data [place]yenne rce(s) Supporting Document(s) aPTT in Platelet poor plasma by Coagulation assay 33.1 s 24.0-33. 0 H [facility] ID Date Data Source [id number] 03/09/2020 01:52:11 PM [facility] Value Range Interpretation Code Description Data [place]yenne rce(s) Supporting Document(s) Cobalamin (Vitamin B12) [Mass/volume] in Serum or Plasma 621 pg/ml 2 11-946 [facility] ID Date Data Source [id number] 03/09/2020 07:47:24 AM [facility] Value Range Interpretation Code Description Data [place]yenne rce(s) Supporting Document(s) Glucose [Mass/volume] in Capillary blood by Glucometer 74 mg/dL 70- 140 [facility] ID Date Data Source [id number] 03/09/2020 12:26:38 AM [facility] Value Range Interpretation Code Description Data [place] rce(s) Supporting Document(s) Leukocytes [#/volume] in Blood by Automated count 0.6 10*3/uL 4-10 [facility] No significant change since last result called Erythrocytes [#/volume] in Blood by Automated count 2.09 10*6/uL 4.1- 5.3 L [facility] Hemoglobin [Mass/volume] in Blood 6.3 g/dL 11.5-15.5 L [facility] Hematocrit [Volume Fraction] of Blood by Automated count 18.4 % 3 6-45 [facility] No significant change since last result called Erythrocyte mean corpuscular volume [Entitic volume] by Auto mated count 88.1 fL 80-96 [facility] Erythrocyte mean corpuscular hemoglobin [Entitic mass] by Automated count 30.4 pg 27-33 [facility] Erythrocyte mean corpuscular hemoglobin concentration [Mass/volume] by Automated count 34.5 g/dL 32.0-36.0 [facility] Erythrocyte distribution width [Ratio] by Automated count 14.0 % 11.5-14.5 [facility] Platelets [#/volume] in Blood by Automated count 10 10*3/uL 150-400 [facility] No significant change since last result called ID Date Data Source [id number] 03/09/2020 12:41:11 AM [facility] Name Value Range Interpretation Code Description Data Cheyenne rce(s) Supporting Document(s) Magnesium [Mass/volume] in Serum or Plasma 2.1 mg/dL 1.6-2.4 [facility] ID Date Data Source [id number] 03/09/2020 12:41:11 AM [facility] Value Range Interpretation Code Description Data [place] rce(s) Supporting Document(s) Phosphate [Mass/volume] in Serum or Plasma 2.8 mg/dL 2.5-4.5 [facility] ID Date Data Source [id number] 03/09/2020 12:41:11 AM [facility] Value Range Interpretation Code Description Data [place]yenne rce(s) Supporting Document(s) Albumin [Mass/volume] in Serum or Plasma by Bromocresol green (BCG) dye binding method 2.6 g/dL 3.5-5.2 [facility] Bilirubin.total [Mass/volume] in Serum or Plasma 0.5 mg/dL <1.2 [facility] Calcium [Mass/volume] in Serum or Plasma 7.9 mg/dL 8.8-10.2 L [facility] Chloride [Moles/volume] in Serum or Plasma 111 mmol/L 98-107 H [facility] Creatinine [Mass/volume] in Serum or Plasma 1.53 mg/dL 0.50-0.90 H [facility] Glucose [Mass/volume] in Serum or Plasma 86 mg/dL 70-140 [facility] Alkaline phosphatase [Enzymatic activity/volume] in Serum or Plasma 72 U/L 35-104 [facility] Potassium [Moles/volume] in Serum or Plasma 4.1 mmol/L 3.4-5.1 [facility] Protein [Mass/volume] in Serum or Plasma 4.7 g/dL 6.4-8.3 [facility] Sodium [Moles/volume] in Serum or Plasma 136 mmol/L 136-145 [facility] Aspartate aminotransferase [Enzymatic activity/volume] in Se rum or Plasma 6 U/L <32 [facility] Urea nitrogen [Mass/volume] in Serum or Plasma 50 mg/dL 8-23 H [facility] Osmolality of Serum or Plasma by calculation 295 mosm/kg 275-300 [facility] Creatinine/Urea nitrogen [Mass Ratio] in Serum or Plasma 33 [facility] Bicarbonate [Moles/volume] in Serum 18 mmol/L 22-29 L [facility] Alanine aminotransferase [Enzymatic activity/volume] in Serum or Pl asma <33 [facility] Anion gap 3 in Serum or Plasma 8 mmol/L 8-15 [facility] Glomerular filtration rate/1.73 sq M pre dicted among non-blacks [Volume Rate/Area] in Serum or Plasma by Creatinine-based formula (MDRD) 35 mL/min/1.73m2 >60 L [facility] Glomerular filtration rate/1.73 sq M pre dicted among blacks [Volume Rate/Area] in Serum or Plasma by Creatinine-based formula (MDRD) 40 mL/min/1.73m2 >60 L [facility] ID Date Data Source [id number] 03/08/2020 09:35:28 PM [facility] Value Range Interpretation Code Description Data Cheyenne rce(s) Supporting Document(s) Glucose [Mass/volume] in Capillary blood by Glucometer 132 mg/dL 70- 140 [facility] ID Date Data Source [id number] 03/08/2020 04:46:38 PM [facility] Value Range Interpretation Code Description Data [place]yenne rce(s) Supporting Document(s) Glucose [Mass/volume] in Capillary blood by Glucometer 109 mg/dL 70- 140 [facility] ID Date Data Source [id number] 03/08/2020 02:41:54 PM [facility] Value Range Interpretation Code Description Data Cheyenne rce(s) Supporting Document(s) EKG [facility] CBZPEw3wCeRXNtVze2ZgFvSyTPMxSE7pzmn9N5M9eFEgJ3WawISlm7uxY1VuM7AnVGUeSWEPSP6TnJDw jb2 [file] cNuD+x00/s9BM7/games dealer/Ymd+uX28ub28g/s3J/YuT+vM03vtDAJPfXeoN74u990r819r067g726u975p9 70j519w012q287g206w509C58EMB1jb8RMRuQEvGJvHkBcGuikNLD0HaUGHlfEEmy0zoLLlC+xc39i5/ 7Nna1CfleKF/jkpd7V1IH1nYCVhE6euhZ7hE17Lni7 J3buT+sfh4d1H6Vfn0Uf/sTOeGLn/sTO/MrPsBAEEviz1yuJSmo8spOOYd7ceVSSPsiyZKAIhvDZiAYo DOPzxZgCMGtw7kFBXgc8OGCVvl4GzaDar0GrvSye8nlpHhi7fqLRTm9vzDFZb+Htb2Yf8Sw+4hGI0D/Y pPYsCQCndXkMKItPI6ubkrj4GqX9X0CMoxHFnyP5dk iyhvzGCLaG/CeQnsr9Jqr+lzwyMBjHW1VZQlWGVSLMpTFQm2m74tAurDKfKH9WLtB+Eec3mCFJAZbq2O PQnLXUBAUUjBVqjOlTGUPZdtxKHugFU3PS088N5lTctNXzBAqKKhcoUEMBf0TrIRARZBJkqrMnyQbsO6 NzeWWxBBPaV6aZ1lnVacrImlCLq+ldcgwb8V4eTxzt RgQfpUjTttyerPPVe5TFFEySFK8S5hPIpjqzrXcFLXSZIYiCsBWyNuRJTaf8MJxZde/woPQ25aJB7AYD m9KH5MILLPs/FbxIrKPLk1V+47QPZ/3HeR+ek/wiimdD26D7wc2DZeF/aS24Ur0qyg8XDbs1Msq/Q96S rARnCtkf5LWjqZK9k/cOIb1rqsJtnhORSNlJhjmWww vAD9QGqyzqmJq/aNQUXAvGISULXYZPpJn1TXcQme4gW/DE6KqKbMCL4pbE/xFoY2WFpKwSIlMbV65IpB mE7fNjuUeTCK8IaAkDgvb5w8wBtGCFVsOnCbIAbogzE5gxEZ7v9hOG/MWI7ngUYuV6PtDpS6IdKegAXU AWENMKkLVHnLXWpKYCIYDDNDHYUMoQKDLa0qoORqH+ [file] ID Date Data Source [id number] 03/08/2020 12:13:11 PM [facility] Name Value Range Interpretation Code Description Data Cheyenne rce(s) Supporting Document(s) [facility] PVAJXi3pKnVMAhGfg4FmHqToTYVvCD7xboi9W2I2tXGgL4VjcFWka1fmX6OvE6DsKEFhQJTTJD3HcOWr jb2 [file] Ru+Parcel Post Clerk+ryj3+3XGSWhxFniLHFT+wB6Z3g4wj80x0Xf [file] 7w089V4l8R2G1804b8e/o32wxd7CzlO5an8dMOt5SL 362BdGwe/S6ruXzhOC76mqdgD05h+33O9KXhDSqbdLigK33Dg+R0/+6g3mX/hu6r4jyNwdw59inNkhek pzqody+DJhAD9aWnyUsh3xQ5xFsxmP2K82qA0gf8ut8YQz7u5JUS9rC/IrwBjefI2iPEbjfd2Wd5m0gd Qe+ueLrbBSfwmkHvch+tinsmith apprentice/Xlvr4KgX/JkvO9gJlsL [file] zcok4wZ6/O23WvcAbj+accounting systems manager/dIjx3Xl93zPx+Ozq/VmoLVQFvGJe80N43p67ge/wP9cF5+DtXqWYW7crWo iTvkkpRbNkkPAuEdWOLtQvx7FI5YjWClXGLkO9N4PB Evxu6kTMOhTLXyoZZiNdOqVVZTWK9JsGRkFW2TQLo1YJM6PCQkAyZpTJMwQO34MPPwDDOCBi9gwjFdFe pBVuZsOR2fkrp5P4A6bQWrK711gSmcceHhNP7Pv7JsfQZeEZ0TrOJwtGVeUKKsQJKkP5qug0MoXoEjTU VVTs5olcQqDaeTPkAoZA6vayc3D7A0gUnawiZzAKKU QXsxYiiqMB7ehZhwchslT4JreZBnWNWqY1EpXRKga66NMFGzPJtMGqQgQoIiKTVsCKTfAqtzGfRsSKEr NJHlLYNyQG2GrDWhSTMxWPJQWTsuMcnyXHUsnB2whESNh9MjWVBYHEcsNzUIWSSoLYJ0FfHlNTZzD3Cv poFxsMHkBPJZOIvgXslmTMNqwC3okTgsR6TfPAG0g4 ViCQ7KY4PsALMzNQRBEXH5m1ZoNFXnjbpovbafXcFcSDSkZULaOOAgYE7Qnz5wuCUahtWuZCIFFCroUq fuOM4bdSucltngE5WpiCDrSMB+MuOqOL7rey0+OdZaETDrLmm0VXMgZQnlVUGmJPFoUPBbY6hiIAJgKf RaYKIuOsMzPYUeIIYhNDMdJ911hqVcWj9+LO4eq8Uq ZtmjQGHJLAHrUPLnRVQcAOY9XpIqUQXfBUIzKFTgPpB7NxAuYbPDVJFjNKQ1YuasHXGhPEEiBREjVVjd EYJsMYz9HRP2DNYzXUBtGS0cDuYgKLWsXxH3BwqxLRMeQCBbcgBQHAIuXFYhBMNhCRY4ZQQeYJAkXTzu WUMiOTRfEBT1BSLjOBJlZJ1lAiDjUJBxVSPxWnroWP HvGWUdtjDIZEJlRNCmMBW4CxUkEHYzYBCsSTokUZYdVANrLfr5RYNlIWAtVK9jRuHaUKMoYDS3ELfrYD LiZGSfotJGULFqVMWeYOMuAmWlUEKbYGWbJZcaFOBmNBLwJvYlVPMtPDPeAB7vQyWoYZRqIJK8YJYfDH KrXDYiaxUODERmMCEkDXr6OGMoTHLzPULxSCtnFMUv KBYiCMA8HZRwADFnZW7wHsWaXGCnFZVaHLYmYTRmZZQxqoKJPXFiOZYxGYB0IVEiFAVzRFTzPHkcITVq WUUoKzb8CNSdZZLwWA7kZpAjQZNcTOM0VLRpTUNlXPByteEGUTZsBCU6WcYoEgZsRNSyNJXtMNtpDWXh DDMyEwI0HZDyOVQcXL2iNgInLIKyRTD8YyTyXDHmGU ItmmXCXWSkFDAbNSO7YvRbIMIlNJZoHSgxAMDhZOe9GGf2GPEtZHHnTZ0cOkZwDNOaGmH9BqXwAXOnMI QigaCMLAAaDLG7RyR1XOVeVWTiHPFzDYxyFJEeVMhrFOCuBJPvAUDnNM7yCkVpMCOrEDByVJVdLlP1Qb FdFoWLwEEfkIwnyyr4WAudF6j1GYBpXWnfQZ4cauPu EASaShgkBu4afFA5RMGvInmSFb7Ew5CpgpT5ggJjUid1NWCtXvZvJA5Z ID Date Data Source [id number] 03/08/2020 12:04:38 PM [facility] Name Value Range Interpretation Code Description Data [place]yenne e(s) Supporting Document(s) Leukocytes [#/volume] in Blood by Automated count 0.7 10*3/uL 4-10 [facility] No significant change since last result called Erythrocytes [#/volume] in Blood by Automated count 2.36 10*6/uL 4.1- 5.3 L [facility] Hemoglobin [Mass/volume] in Blood 7.2 g/dL 11.5-15.5 L [facility] Hematocrit [Volume Fraction] of Blood by Automated count 20.7 % 3 6-45 [facility] No significant change since last result called Erythrocyte mean corpuscular volume [Entitic volume] by Auto mated count 87.8 fL 80-96 [facility] Erythrocyte mean corpuscular hemoglobin [Entitic mass] by Automated count 30.7 pg 27-33 [facility] Erythrocyte mean corpuscular hemoglobin concentration [Mass/volume] by Automated count 35.0 g/dL 32.0-[facility] width [Ratio] by Automated count 13.8 % 11.5-14.5 [facility] Platelets [#/volume] in Blood by Automated count 17 10*3/uL 150-400 [facility] No significant change since last result called ID Date Data Source [id number] 03/08/2020 11:38:54 AM [facility] Name Value Range Interpretation Code Description Data Cheyenne rce(s) Supporting Document(s) Glucose [Mass/volume] in Capillary blood by Glucometer 128 mg/dL 70- 140 [facility] ID Date Data Source [id number] 03/08/2020 10:03:09 AM [facility] CT ABDOMEN PELVIS WITHOUT CONTRAST [id number] FINAL RESULTInterpreted by:Gal Pagan, MDPROCEDURE INFORMATION: Exam: CT Abdomen And Pelvis Without [...] fluid collection. Vasculature: There is extensive atherosclerotic c alcification. Lymph nodes: Unremarkable. No enlarged lymph nodes. [...] colon. 4. There is extensive atherosclerotic calcification. THIS DOCUMENT HAS BEEN ELECTRONICALLY SIGNED BY GAL PAGAN MDThis document has been electronically signed by Gal Pagan MD on 03/08/2020 10:03 AM Name Value Range Interpretation Code Description Data [place]yenne rce(s) Supporting Document(s) ID Date Data Source [id number] 03/08/2020 08:00:45 AM [facility] Name Value Range Interpretation Code Description Data [place] rce(s) Supporting Document(s) Glucose [Mass/volume] in Capillary blood by Glucometer 129 mg/dL 70- 140 [facility] ID Date Data Source [id number] 03/08/2020 03:16:02 AM [facility] Name Value Range Interpretation Code Description Data Cheyenne rce(s) Supporting Document(s) Albumin [Mass/volume] in Serum or Plasma by Bromocresol green (BCG) dye binding method 2.6 g/dL 3.5-[facility].2 [facility] Bil[facility].total [Mass/volume] in Serum or Plasma 1.0 mg/dL <1.2 [facility] Calcium [Mass/volume] in Serum or Plasma 7.9 mg/dL 8.8-10.2 L [facility] Chloride [Moles/volume] in Serum or Plasma 111 mmol/L 98-107 H [facility] Creatinine [Mass/volume] in Serum or Plasma 1.52 mg/dL 0.50-0.90 H [facility] Glucose [Mass/volume] in Serum or Plasma 137 mg/dL 70-140 [facility] Alkaline phosphatase [Enzymatic activity/volume] in Serum or Plasma 71 U/L 35-104 [facility] Potassium [Moles/volume] in Serum or Plasma 4.4 mmol/L 3.4-5.1 [facility] Protein [Mass/volume] in Serum or Plasma 4.6 g/dL 6.4-8.3 L [facility] Sodium [Moles/volume] in Serum or Plasma 136 mmol/L 136-145 [facility] Aspartate aminotransferase [Enzymatic activity/volume] in Serum or Plasma <32 [facility] Urea nitrogen [Mass/volume] in Serum or Plasma 67 mg/dL 8-23 H [facility] Osmolality of Serum or Plasma by calculation 304 mosm/kg 275-300 H [facility] Creatinine/Urea nitrogen [Mass Ratio] in Serum or Plasma 44 [facility] Bicarbonate [Moles/volume] in Serum 20 mmol/L 22-29 L [facility] Alanine aminotransferase [Enzymatic activity/volume] in Serum or Pl asma <33 [facility] Anion gap 3 in Serum or Plasma 5 mmol/L 8-15 L [facility] Glomerular filtration rate/1.73 sq M pre dicted among non-blacks [Volume Rate/Area] in Serum or Plasma by Creatinine-based formula (MDRD) 35 mL/min/1.73m2 >60 L [facility] Glomerular filtration rate/1.73 sq M pre dicted among blacks [Volume Rate/Area] in Serum or Plasma by Creatinine-based formula (MDRD) 41 mL/min/1.73m2 >60 L [facility] ID Date Data Source [id number] 03/08/2020 03:16:02 AM [facility] Value Range Interpretation Code Description Data Cheyenne rce(s) Supporting Document(s) Urate [Mass/volume] in Serum or Plasma 6.9 mg/dl 2.4-5.7 H [facility] ID Date Data Source [id number] 03/08/2020 03:16:02 AM [facility] Value Range Interpretation Code Description Data Cheyenne rce(s) Supporting Document(s) Magnesium [Mass/volume] in Serum or Plasma 2.2 mg/dL 1.6-2.4 [facility] ID Date Data Source [id number] 03/08/2020 03:16:02 AM [facility] Value Range Interpretation Code Description Data Cheyenne rce(s) Supporting Document(s) Phosphate [Mass/volume] in Serum or Plasma 3.5 mg/dL 2.5-4.5 [facility] ID Date Data Source [id number] 03/08/2020 08:57:35 AM EST [facility] Name Value Range Interpretation Code Description Data Cheyenne rce(s) Supporting Document(s) Lactate dehydrogenase [Enzymatic activit y/volume] in Serum or Plasma by Lactate to pyruvate reaction 219 U/L 122-214 H [facility] ID Date Data Source [id number] 03/08/2020 10:30:44 AM [facility] Name Value Range Interpretation Code Description Data Cheyenne rce(s) Supporting Document(s) Haptoglobin [Mass/volume] in Serum or Plasma 198 mg/dl 30-200 [facility] ID Date Data Source [id number] 03/08/2020 08:20:21 AM [facility] Name Value Range Interpretation Code Description Data Cheyenne rce(s) Supporting Document(s) Leukocytes [#/volume] in Blood by Automated count 0.5 10*3/uL 4-10 [facility] No significant change since last result called Erythrocytes [#/volume] in Blood by Automated count 1.99 10*6/uL 4.1- 5.3 L [facility] Hemoglobin [Mass/volume] in Blood 6.1 g/dL 11.5-15.5 [facility] Hematocrit [Volume Fraction] of Blood by Automated count 17.4 % 3 6-45 [facility] No significant change since last result called Erythrocyte mean corpuscular volume [Entitic volume] by Auto mated count 87.6 fL 80-96 [facility] Erythrocyte mean corpuscular hemoglobin [Entitic mass] by Automated count 30.9 pg 27-33 [facility] Erythrocyte mean corpuscular hemoglobin concentration [Mass/volume] by Automated count 35.2 g/dL 32.0-36.0 [facility] Erythrocyte distribution width [Ratio] by Automated count 13.9 % 11.5-14.5 [facility] Platelets [#/volume] in Blood by Automated count 17 10*3/uL 150-400 [facility] No significant change since last result called Differential cell count method - Blood [facility] Neutrophils/100 leukocytes in Blood by Automated count 2 % [facility] Lymphocytes/100 leukocytes in Blood by Automated count 78 % [facility] Monocytes/100 leukocytes in Blood by Automated count 4 % [facility] Eosinophils/100 leukocytes in Blood by Automated count 2 % [facility] Neutrophils [#/volume] in Blood by Automated count 0.01 10*3/uL 1.8-7 .0 L [facility] Lymphocytes [#/volume] in Blood by Automated count 0.39 10*3/uL 1.2-4 .0 L [facility] Monocytes [#/volume] in Blood by Automated count 0.02 10*3/uL 0-0.8 [facility] Eosinophils [#/volume] in Blood by Automated count 0.01 10*3/uL 0-0.5 [facility] Nucleated erythrocytes/100 leukocytes [Ratio] in Blood by Automated count 4 /100{WBCs} 0-0 H [facility] Variant lymphocytes/100 leukocytes in Blood by Manual count 4 % [facility] Blasts/100 leukocytes in Blood by Manual count 8 % [facility] Confirmed [id number] Plasma cells/100 leukocytes in Blood 2 % [facility] Lymphocytes [#/volume] in Blood 0.02 10*3/uL 0 H [facility] Blasts [#/volume] in Blood by Manual count 0.04 10*3/uL 0-0 H [facility] Plasma cells [#/volume] in Blood by Manual count 0.01 10*3/uL 0-0 H [facility] Dwarf Megakaryocyte 2 % 0-0 H [facility] ID Date Data Source [id number] 03/07/2020 10:20:43 PM EST [facility] Name Value Range Interpretation Code Description Data Cheyenne rce(s) Supporting Document(s) Color of Urine [facility] Clarity of Urine [facility] Specific gravity of Urine by Refractometry automated 1.014 1.003 -1.030 [facility] pH of Urine by Automated test strip 5.0 5.0-8.0 [facility] Protein [Mass/volume] in Urine by Automated test strip Neg [facility] Glucose [Mass/volume] in Urine by Automated test strip Neg [facility] Ketones [Mass/volume] in Urine by Automated test strip Neg [facility] Bilirubin.total [Presence] in Urine by Automated test strip Negative [facility] Hemoglobin [Presence] in Urine by Automated test strip Neg ative A [facility] Leukocyte esterase [Presence] in Urine by Automated test strip Negative [facility] Nitrite [Presence] in Urine by Automated test strip Negati ve [facility] Leukocytes [#/area] in Urine sediment by Automated count 0 /HPF 0 -5 [facility] Erythrocytes [#/area] in Urine sediment by Automated count 0-3 [facility] Service comment [facility] Epithelial cells.squamous [#/area] in Urine sediment by Auto mated count 1 /HPF None A [facility] ID Date Data Source [id number] 03/08/2020 07:16:37 PM [facility] Service Cmnt XXX-Imp : NoneMicroorganism XXX Cult : NEGATIVE for fecal occult blood by immunochromatography. This test is not designed to detect bleeding from the upper GI tract. To detect bleeding from the upper tract, order Fecal Occult Blood, Upper GI (Hemoccult-SENSA). Name Value Range Interpretation Code Description Data Cheyenne rce(s) Supporting Document(s) ID Date Data Source [id number] 03/07/2020 09:18:45 PM [facility] Name Value Range Interpretation Code Description Data Cheyenne rce(s) Supporting Document(s) Glucose [Mass/volume] in Capillary blood by Glucometer 148 mg/dL 70- 140 H [facility] ID Date Data Source [id number] 03/07/2020 09:52:09 PM [facility] Name Value Range Interpretation Code Description Data Cheyenne rce(s) Supporting Document(s) Leukocytes [#/volume] in Blood by Automated count 0.8 10*3/uL 4-10 [facility] Called to and read back by Katrina Helton RN 10H 2103 [place] 1478 Erythrocytes [#/volume] in Blood by Automated count 1.95 10*6/uL 4.1- 5.3 L [facility] Hemoglobin [Mass/volume] in Blood 6.0 g/dL 11.5-15.5 L [facility] Hematocrit [Volume Fraction] of Blood by Automated count 17.4 % 3 6-45 [facility] Called to and read back by Katrina Helton RN 10H 2103 [place] 1478 Erythrocyte mean corpuscular volume [Entitic volume] by Auto mated count 89.6 fL 80-96 [facility] Erythrocyte mean corpuscular hemoglobin [Entitic mass] by Automated count 30.9 pg 27-33 [facility] Erythrocyte mean corpuscular hemoglobin concentration [Mass/volume] by Automated count 34.5 g/dL 32.0-36.0 [facility] Erythrocyte distribution width [Ratio] by Automated count 15.0 % 11.5-14.5 H [facility] Platelets [#/volume] in Blood by Automated count 26 10*3/uL 150-400 LL [facility] Called to and read back by Katrina Helton RN 10H 2103 [place] 6439 Differential cell count method - Blood [facility] Neutrophils/100 leukocytes in Blood by Automated count 1 % [facility] Lymphocytes/100 leukocytes in Blood by Automated count 74 % [facility] Monocytes/100 leukocytes in Blood by Automated count 3 % [facility] Eosinophils/100 leukocytes in Blood by Automated count 3 % [facility] Neutrophils [#/volume] in Blood by Automated count 0.01 10*3/uL 1.8-7 .0 L [facility] Lymphocytes [#/volume] in Blood by Automated count 0.59 10*3/uL 1.2-4 .0 L [facility] Monocytes [#/volume] in Blood by Automated count 0.02 10*3/uL 0-0.8 [facility] Eosinophils [#/volume] in Blood by Automated count 0.02 10*3/uL 0-0.5 [facility] Nucleated erythrocytes/100 leukocytes [Ratio] in Blood by Automated count 3 /100{WBCs} 0-0 H [facility] Variant lymphocytes/100 leukocytes in Blood by Manual count 9 % [facility] Blasts/100 leukocytes in Blood by Manual count 10 % [facility] Lymphocytes [#/volume] in Blood 0.07 10*3/uL 0 H [facility] Blasts [#/volume] in Blood by Manual count 0.08 10*3/uL 0-0 H [facility] Anisocytosis [Presence] in Blood by Light microscopy [facility] Poikilocytosis [Presence] in Blood by Light microscopy [facility] ID Date Data Source [id number] 03/08/2020 06:57:34 AM EST [facility] Name Value Range Interpretation Code Description Data Cheyenne rce(s) Supporting Document(s) Clerical Check [facility] No Hemolysis SeenNo Hemolysis Seen Direct antiglobulin test.poly specific reagent [Presence] on Red Blood Cells [facility] Direct antiglobulin test.poly specific r eagent [Presence] on Red Blood Cells --after transfusion reaction [facility] Transfusion reaction [Interpretation] in Plasma or RBC Narrative [facility] OPOSOPOS Blood product unit ID [#] [facility] Blood bank comment [facility] ID Date Data Source [id number] 03/07/2020 06:17:25 PM [facility] Name Value Range Interpretation Code Description Data Cheyenne rce(s) Supporting Document(s) Platelets [#/volume] in Blood by Automated count 28 10*3/uL 150-400 [facility] Called to and read back by Kecia Soto RN 10H at 1817 by 2086 ID Date Data Source [id number] 03/07/2020 04:52:40 PM [facility] Name Value Range Interpretation Code Description Data Cheyenne rce(s) Supporting Document(s) Glucose [Mass/volume] in Capillary blood by Glucometer 166 mg/dL 70- 140 [facility] ID Date Data Source [id number] 03/07/2020 01:23:31 PM [facility] Value Range Interpretation Code Description Data Cheyenne rce(s) Supporting Document(s) History and Physical [facility] [id number] [id number] [file] [id number] ID Date Data Source [id number] 03/09/2020 07:09:42 AM [facility] Name Value Range Interpretation Code Description Data Cheyenne rce(s) Supporting Document(s) Blood bank comment [facility] ID Date Data Source [id number] 03/07/2020 12:23:13 PM [facility] Value Range Interpretation Code Description Data Cheyenne rce(s) Supporting Document(s) Glucose [Mass/volume] in Capillary blood by Glucometer 184 mg/dL 70- 140 H [facility] ID Date Data Source [id number] 03/07/2020 11:46:33 AM [facility] Value Range Interpretation Code Description Data Cheyenne rce(s) Supporting Document(s) Prothrombin time (PT) 16.6 s 12.5-14.9 H [facility] INR in Platelet poor plasma by Coagulation assay 1.32 [facility] Routine intensity oral anticoagulation I NR is typically 2.0-3.0. Target INR must be clinically individualized. ID Date Data Source [id number] 03/07/2020 11:46:33 AM [facility] Value Range Interpretation Code Description Data Cheyenne rce(s) Supporting Document(s) aPTT in Platelet poor plasma by Coagulation assay 32.9 s 24.0-33. 0 [facility] ID Date Data Source [id number] 03/07/2020 03:03:10 PM [facility] Value Range Interpretation Code Description Data Cheyenne rce(s) Supporting Document(s) Leukocytes [#/volume] in Blood by Automated count 1.2 10*3/uL 4-10 [facility] No significant change since last result called Erythrocytes [#/volume] in Blood by Automated count 2.06 10*6/uL 4.1- 5.3 L [facility] Hemoglobin [Mass/volume] in Blood 6.3 g/dL 11.5-15.5 L [facility] Hematocrit [Volume Fraction] of Blood by Automated count 18.0 % 3 6-45 [facility] No significant change since last result called Erythrocyte mean corpuscular volume [Entitic volume] by Auto mated count 87.6 fL 80-96 [facility] Erythrocyte mean corpuscular hemoglobin [Entitic mass] by Automated count 30.4 pg 27-33 [facility] Erythrocyte mean corpuscular hemoglobin concentration [Mass/volume] by Automated count 34.7 g/dL 32.0-36.0 [facility] Erythrocyte distribution width [Ratio] by Automated count 14.1 % 11.5-14.5 [facility] Platelets [#/volume] in Blood by Automated count 10 10*3/uL 150-400 LL [facility] No significant change since last result called Differential cell count method - Blood [facility] Neutrophils/100 leukocytes in Blood by Automated count 3 % [facility] Lymphocytes/100 leukocytes in Blood by Automated count 87 % [facility] Monocytes/100 leukocytes in Blood by Automated count 0 % [facility] Eosinophils/100 leukocytes in Blood by Automated count 1 % [facility] Neutrophils [#/volume] in Blood by Automated count 0.04 10*3/uL 1.8-7 .0 L [facility] Lymphocytes [#/volume] in Blood by Automated count 1.04 10*3/uL 1.2-4 .0 L [facility] Monocytes [#/volume] in Blood by Automated count 0.00 10*3/uL 0-0.8 [facility] Eosinophils [#/volume] in Blood by Automated count 0.01 10*3/uL 0-0.5 [facility] Nucleated erythrocytes/100 leukocytes [Ratio] in Blood by Automated count 1 /100{WBCs} 0-0 H [facility] Blasts/100 leukocytes in Blood by Manual count 9 % [facility] Confirmed by DR. PASCAL Blasts [#/volume] in Blood by Manual count 0.11 10*3/uL 0-0 H [facility] ID Date Data Source [id number] 03/07/2020 08:13:34 AM [facility] Name Value Range Interpretation Code Description Data Cheyenne rce(s) Supporting Document(s) Glucose [Mass/volume] in Capillary blood by Glucometer 162 mg/dL 70- 140 H [facility] ID Date Data Source [id number] 03/07/2020 01:28:04 AM [facility] XR CHEST FRONTAL ONLY [id number] RESULTI nterpreted by:Adelaida Peña, MDPROCEDURE INFORMATION: Exam: XR Chest, 1 View Exam [...] No pneumothorax. Heart/Mediastinum: No cardiomegaly. Calcified tortuous aorta.[place] elsa/joints: Unremarkable IMPRESSION: No acute lung pathology.THIS DOCUMENT HAS BEEN ELECTRONICALLY SIGNED BY ADELAIDA PEÑA MDThis document has been electronically signed by Adelaida Peña MD on 03/07/2020 1:27 AM Name Value Range Interpretation Code Description Data Cheyenne rce(s) Supporting Document(s) ID Date Data Source [id number] 03/12/2020 08:58:45 AM [facility] 03/11/2020,[id number] Name Value Range Interpretation Code Description Data Cheyenne rce(s) Supporting Document(s) ABO and Rh group [Type] in [facility] Performed at [facility], [place], [place] ID Date Data Source [id number] 03/12/2020 08:58:45 AM [facility] Name Value Range Interpretation Code Description Data Cheyenne rce(s) Supporting Document(s) ABO and Rh group [Type] in [facility] Blood group antibody screen [Presence] in Serum or Plasma [facility] Performed at [facility], [place] M ON 10H AT 2220 Blood bank [facility] ID Date Data Source [id number] 03/07/2020 12:47:00 AM EST [facility] Name Value Range Interpretation Code Description Data Cheyenne rce(s) Supporting Document(s) SARS-CoV-2 RNA 2019 nCoV Real-Time RT-PCR: NOT DETECTED [facility] This lab was ordered by [facility] and reported by [facility]. ID Date Data Source [id number] 03/07/2020 09:40:06 AM [facility] Name Value Range Interpretation Code Description Data Cheyenne rce(s) Supporting Document(s) Specimen source [Identifier] of Unspecified specimen [facility] SARS-CoV-2 RNA 2019 nCoV Real-Time RT-PCR: NOT DETECTED [facility] Assay Performed [facility] Patients first test for condition [facility] Patient employed in healthcare setting [facility] Patient has symptoms related to condition [facility] When did you start to experience these symptoms [Date and time] [Phen X] [facility] Patient was hospitalized because of this condition [facility] patient was admitted to ICU for condition [facility] Patient resides in a congregate care setting [facility] status [facility] ID Date Data Source [id number] 03/07/2020 05:34:02 AM [facility] Name Value Range Interpretation Code Description Data Cheyenne rce(s) Supporting Document(s) ABO and Rh group [Type] in Blood [facility] Blood bank comment [facility] ID Date Data Source [id number] 03/07/2020 02:00:03 AM [facility] Name Value Range Interpretation Code Description Data Cheyenne rce(s) Supporting Document(s) Triiodothyronine (T3) Free [Mass/volume] in Serum or Plasma 1.41 pg/mL 2.00-4.40 [facility] ID Date Data Source [id number] 03/07/2020 02:00:03 AM [facility] Name Value Range Interpretation Code Description Data [place]yenne rce(s) Supporting Document(s) Albumin [Mass/volume] in Serum or Plasma by Bromocresol green (BCG) dye binding method 2.9 g[facility]dL [facility]2 [facility] Bil[facility].total [Mass/volume] in Serum or Plasma 0.6 mg/dL <1.2 [facility] Calcium [Mass/volume] in Serum or Plasma 8.1 mg/dL 8.8-10.2 L [facility] Chloride [Moles/volume] in Serum or Plasma 107 mmol/L 98-107 [facility] Creatinine [Mass/volume] in Serum or Plasma 1.51 mg/dL 0.50-0.90 H [facility] Glucose [Mass/volume] in Serum or Plasma 213 mg/dL 70-140 H [facility] Alkaline phosphatase [Enzymatic activity/volume] in Serum or Plasma 80 U/L 35-104 [facility] Potassium [Moles/volume] in Serum or Plasma 4.4 mmol/L 3.4-5.1 [facility] Protein [Mass/volume] in Serum or Plasma 5.0 g/dL 6.4-8.3 L [facility] Sodium [Moles/volume] in Serum or Plasma 137 mmol/L 136-145 [facility] Aspartate aminotransferase [Enzymatic activity/volume] in Se rum or Plasma 6 U/L <32 [facility] Urea nitrogen [Mass/volume] in Serum or Plasma 82 mg/dL 8-23 H [facility] Osmolality of Serum or Plasma by calculation 314 mosm/kg 275-300 H [facility] Creatinine/Urea nitrogen [Mass Ratio] in Serum or Plasma 54 [facility] Bicarbonate [Moles/volume] in Serum 20 mmol/L 22-29 L [facility] Alanine aminotransferase [Enzymatic activity/volume] in Seru m or Plasma 8 U/L <33 [facility] Anion gap 3 in Serum or Plasma 10 mmol/L 8-15 [facility] Glomerular filtration rate/1.73 sq M pre dicted among non-blacks [Volume Rate/Area] in Serum or Plasma by Creatinine-based formula (MDRD) 35 mL/min/1.73m2 >60 L [facility] Glomerular filtration rate/1.73 sq M pre dicted among blacks [Volume Rate/Area] in Serum or Plasma by Creatinine-based formula (MDRD) 41 mL/min/1.73m2 >60 L [facility] ID Date Data Source [id number] 03/07/2020 02:00:03 AM [facility] Name Value Range Interpretation Code Description Data Cheyenne rce(s) Supporting Document(s) Thyroxine (T4) free [Mass/volume] in Serum or Plasma 1.00 ng/dL 0.93- 1.70 [facility] ID Date Data Source [id number] 03/07/2020 02:00:03 AM [facility] Value Range Interpretation Code Description Data Cheyenne rce(s) Supporting Document(s) Thyrotropin [Units/volume] in Serum or Plasma 5.700 u[IU]/mL 0.270-4. 200 H [facility] ID Date Data Source [id number] 03/07/2020 02:20:48 AM [facility] Value Range Interpretation Code Description Data Cheyenne rce(s) Supporting Document(s) Leukocytes [#/volume] in Blood by Automated count 1.3 10*3/uL 4-10 [facility] Called to and read back by Neil beyer RN on at 135 by 1521 Erythrocytes [#/volume] in Blood by Automated count 1.92 10*6/uL 4.1- 5.3 L [facility] Hemoglobin [Mass/volume] in Blood 5.9 g/dL 11.5-15.5 [facility] Hematocrit [Volume Fraction] of Blood by Automated count 17.0 % 3 6-45 [facility] Called to and read back by Neil beyer RN on at 135 by 1521 Erythrocyte mean corpuscular volume [Entitic volume] by Auto mated count 88.4 fL 80-96 [facility] Erythrocyte mean corpuscular hemoglobin [Entitic mass] by Automated count 30.8 pg 27-33 [facility] Erythrocyte mean corpuscular hemoglobin concentration [Mass/volume] by Automated count 34.9 g/dL 32.0-36.0 [facility] E[facility]th[facility] distribution width [Ratio] by Automated count 13.6 % 11.5-14.5 [facility] Platelets [#/volume] in Blood by Automated count 12 10*3/uL 150-400 [facility] Called to and read back by Neil beyer RN on at 135 by 1521Confirmed ID Date Data Source [id number] 03/07/2020 12:28:08 AM [facility] Name Value Range Interpretation Code Description Data Cheyenne rce(s) Supporting Document(s) Glucose [Mass/volume] in Capillary blood by Glucometer 198 mg/dL 70- 140 H [facility] ID Date Data Source [id number] 03/14/2020 11:07:00 AM [facility] Cytogenetics ReportName: PATRICIA COTTON V.MR N: [id number] Number: [id number] Date: 03/07/2020 00:00Received Date: 03/12/2020 15:45Physician(s): LISA VELEZ MD BEDoris,SHELLY VALLEJOpecimen(s) ReceivedA: Bone Marrow - Interphase FISH onlyClinical [id number] patient with history of CMML, concern for conversion to AMLTEST REQUESTED/PERFORMED: Fluorescence in situ hybridization - FISH DiagnosisFluorescence in situ hybridization (FISH) could not be performed due toinsufficient specimen. 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 Please correlate with the concurrentHematopathology report [id number]. Electronically Signed By Yokasta Curran MD, PhD AttendingPathologist 03/14/2020 11:07:08 Name Value Range Interpretation Code Description Data Cheyenne rce(s) Supporting Document(s) ID Date Data Source [id number] 03/09/2020 04:57:00 PM [facility] Hematopathology ReportName: PATRICIA COTTONMRN: [id number] Number: [id number] Date: 03/07/2020 00:00Received Date: 03/07/2020 13:38Physician(s): LISA VELEZ MD GILLIGAN, DIANA M,MDSpecimen(s) ReceivedA: Bone Marrow Biopsy, RPIC; Received 1 biopsy and 10 touch prepsB: Blood; Received 4 PB smearsC: Core Biopsy, Flow Cytometry; [facility]Clinical HistoryHistory of CMML, concern for conversion to AML. Pancytopenia, increasingperipheral blast count.TEST REQUESTED/PERFORMED: Bone marrow and flow cytometry analysis DiagnosisMarkedly hypocellular bone marrow with marked pancytopenia with 9%circulating blasts. There is no evidence of increased blasts in the bonemarrow. There is no evidence of acute leukemia, but residual diseasecannot be completely ruled out.Des Bravo M.D.;Resident PathologistElectronically Signed By YONI PASCAL M.D. Attending Pathologist 116:57:20The attending pathologist named above attests that he/she has personallyreviewed the relevant preparation(s) for the specimen(s) and rendered thefinal diagnosis. Gross DescriptionThe specimen is received in formalin labeled with the patient's name "Daniel" and "R BX". It consists of two red cylindrical fragments of bonemeasuring 0.5 x 0.2 cm. Totally submitted in one cassette followingdecalcification. ND/pmw ProceduresBone Marrow Date Ordered:03/07/2020 Status: Signed Out03/08/2020 InterpretationPERIPHERAL BLOOD: CBC performed at [facility] #[id number](03/07/20)WBC 1.2 K/uLRBC *2.06 M/uLHgb *6.3 g/dLHct 18.0 %MCV 87.6 fLMCH 30.4 pgMCHC 34.7 g/dLRDW 14.1 %MPV *6.9 fLPlatelets 10 K/uL The erythrocytes appear severely decreased in number and are overallnormochromic and normocytic. Anisocytosis is mild. Poikilocytosis ismild. Polychromasia is not increased. Nucleated red cells are seen(1/100 WBC). Rouleau formation is not increased. The platelets appear decreased in number.The leukocytes appear decreased in number. Differential Count (100 cells): 9.0 % Blasts 3.0 % Neutrophils 1.0 % Kdkgsgpoogm10.0 % Lymphocytes--------100.0 % No bone marrow aspirate smears are received. Touch imprint is reviewed forthe differential count and consists mostly of peripheral blood.Cellularity cannot be assessed on touch imprint. MARROW BIOPSY: Biopsy sections show markedly hypocellular marrow with decreased M/Eratio. Megakaryocytes are markedly decreased. The bone marrow is diffuselyreplaced with fibrosis and serous atrophy with entrapped erythroidprecursors and rare myeloid precursors. Many hemosiderin laden macrophagesare scattered throughout the bone marrow. Mostly lymphocytes and plasmacells are noted. No clusters of blasts are seen. Bony trabeculae areunremarkable. Touch imprint slides show markedly diluted specimen consisting of mostlyperipheral blood. A cytospin is received and shows poorly preserved specimen with a fewscattered variably sized lymphoid cells with clumped chromatin and scantblue cytoplasm and rare myeloid and erythroid precursors. SPECIAL STAINS: CD34 immunostain does not show increase in blasts. MPOshows only very rare cells and reticulin stain does not show increasedfibrosis. MORPHOLOGY SUMMARY: Hypocellular marrow with unevaluable blasts,unevaluable M/E ratio, and absent megakaryocytes. Peripheral Blood: Leukopenia, absolute lymphopenia, absolute neutropenia,severe normocytic anemia, and severe thrombocytopenia. Procedure Electronically Signed By:YONI PASCAL M.D.03/09/2020 Flow Cytometry Date Ordered:03/07/2020 Status: Signed Out03/08/2020 InterpretationAcute Panel for Yury Iqbal [facility] 141 [id number] following markers were assayed: CD45 (gate), CD1a, CD2, CD3, CD4, CD5,CD7, CD8, CD10, CD11b, CD13, CD14, CD15, CD19, CD20, CD25,CD33, CD34,CD38, CD41, CD56, CD57, CD64, CD71, CD117, CD123, [place], Lambda, andHLA-DR.Events: [id number]: Routinely a minimum of 50,000 events are collected in each paneltube. Due to sample cellularity and/or processing this number was notachievable for this sample.Viability: 72%NOTE: Results are based on a sample that was partially compromised due tothe presence of greater than 20% non-viable leukocytes.Flow Cytometry Differential (CD45/SSC)Lymphocyte [place]: 23%CD45 dim [place]: 3%Monocyte [place]: 1%Granulocyte [place]: 15%Nucleated/Erythroid [place]: 37%The lymphocyte gate showsB-Cells (CD19): 3%[place]/Lambda Ratio: 2.3T- Cells (CD3): 95%CD4/CD8 Ratio: 0.6NK Cells: 2%Results (expressed as % of LYMPHOCYTE gate):B-Cell Markers: [place] = 1.9, Lambda = 0.9, CD19 = 3, CD20 = 3, CD19/10 =1, CD19/CD5 = 2, CD38/CD20 = 1Light chain as % of B-Cells: CD19/[place] = 56, CD19/Lambda = 25T-Cell Markers: CD2 = 96, CD3 = 95, CD3/CD4 = 34, CD5 = 88, CD7 = 87,CD3/CD8 = 57, CD3/57 = 30NK Cell Markers: CD56 = 9, CD57 = 33Other Markers: CD10 = 5, CD38 = 42Results (expressed as % of BLAST gate):B-Cell Markers: [place] = 1.7, Lambda = 0.4, CD19 = 4, CD20 = 4, CD10 = 21,CD19/10 = 0T- Cell Markers: CD1a = 1, CD2 = 3, CD3 = 8, CD4 = 5, CD5 = 4, CD7 = 7, CD8= 4, CD3/CD4 = 1, CD3/CD8 = 2Myeloid Markers: CD11b = 33, CD13 = 39, CD14 = 4, CD15 = 14, CD33 = 30,CD41 = 13, CD64 = 58, CD71 = 13, CD117 = 6Other Markers: CD25 = 3, CD34 = 15, CD38 = 47, CD56 = 4, CD57 = 4, CD123 =3, HLA-DR = 50Results- CommentsLymphocytes consist predominantly of T cells with normal expression of panT-cell markers and decreased CD4/CD8 ratio, normal proportions of NKcells, slightly increased cytotoxic T cells, and polyclonal B cells.CD34+ blasts comprise fewer than 1% of cells studied. Blasts, monocytes,and granulocytes show no definitive immunophenotypic aberrancies. Procedure Electronically Signed By:YONI PASCAL M.D.03/08/2020 This report may include one or more immunohistochem ical stain/fluorochromeconjugated monoclonal antibody results that use analyte specific reagents.All positive and negative controls have been reviewed by the attendingpathologist and are satisfactory. The tests were developed and theirperformance characteristics determined by [facility] Pathology department.They have not been cleared or approved by the US Food and DrugAdministration. The FDA has determined that such clearance or approval isnot necessary. Name Value Range Interpretation Code Description Data Cheyenne rce(s) Supporting Document(s) ID Date Data Source [id number] 03/06/2020 02:17:00 PM EST [facility] Name Value Range Interpretation Code Description Data Cheyenne rce(s) Supporting Document(s) SARS-CoV-2 (COVID 19) NEGATIVE - SARS-CoV-2 (COVID19) [facility] This lab was ordered by [facility] a nd reported by [facility]. ID Date Data Source [id number] 02/24/2020 04:54:23 PM EST [facility] Name Value Range Interpretation Code Description Data Cheeynne rce(s) Supporting Document(s) &PDF [facility] SNAYBk7fLtDYBhJr46/JMOdyHMUoy4VzRMvnGJg9GVxnESSxA2GuySkbFKtLIANyCyBUFNKLWDVESG6g FcG [file] KvIzQW0EVHd= ID Date Data Source [id number] 02/16/2020 10:16:00 AM EST [facility] Name Value Range Interpretation Code Description Data Cheyenne rce(s) Supporting Document(s) SARS coronavirus 2 RNA [Presence] in Res piratory specimen by JOSE ROBERTO with probe detection [facility] This lab was ordered by [facility] a nd reported by [facility]. ID Date Data Source [id number] 11/03/2019 11:20:00 AM EDT [facility] Name Value Range Interpretation Code Description Data Cheyenne rce(s) Supporting Document(s) &PDF [facility] EIDPNj4zXkEVAlHd22/ONVpmXDRnz0WnOXqfQNi2AVgeSHUoH2NtaFzgZJgABYZmZqQHYYMTURXOFX6g oRX [file] ICAgICAgICAgICAgICAgICAgICAgICAgICAgICAgIC AgICAgICAgICAgICAgICAgICAgICAgICAgICAgICAgICAgICAgDQogICAgICAgICAgICAgICAgICAgIC AgICAgICAgICAgICAgICAgICAgICAgICAgICAgICAgICAgICAgICAgICAgICAgICAgICAgICAgICAgIC AgICAgICAgICAgICAgICAgICAgDQogICAgICAgICAg ICAgICAgICAgICAgICAgICAgICAgICAgICAgICAgICAgICAgICAgICAgICAgICAgICAgICAgICAgICAg ICAgICAgICAgICAgICAgICAgICAgICAgICAgICAgDQogICAgICAgICAgICAgICAgICAgICAgICAgICAg ICAgICAgICAgICAgICAgICAgICAgICAgICAgICAgIC AgICAgICAgICAgICAgICAgICAgICAgICAgICAgICAgICAgICAgICAgDQogICAgICAgICAgICAgICAgIC AgICAgICAgICAgICAgICAgICAgICAgICAgICAgICAgICAgICAgICAgICAgICAgICAgICAgICAgICAgIC AgICAgICAgICAgICAgICAgICAgICAgDQogICAgICAg ICAgICAgICAgICAgICAgICAgICAgICAgICAgICAgICAgICAgICAgICAgICAgICAgICAgICAgICAgICAg ICAgICAgICAgICAgICAgICAgICAgICAgICAgICAgICAgDQogICAgICAgICAgICAgICAgICAgICAgICAg ICAgICAgICAgICAgICAgICAgICAgICAgICAgICAgIC AgICAgICAgICAgICAgICAgICAgICAgICAgICAgICAgICAgICAgICAgICAgDQogICAgICAgICAgICAgIC AgICAgICAgICAgICAgICAgICAgICAgICAgICAgICAgICAgICAgICAgICAgICAgICAgICAgICAgICAgIC AgICAgICAgICAgICAgICAgICAgICAgICAgDQogICAg ICAgICAgICAgICAgICAgICAgICAgICAgICAgICAgICAgICAgICAgICAgICAgICAgICAgICAgICAgICAg ICAgICAgICAgICAgICAgICAgICAgICAgICAgICAgICAgICAgDQogICAgICAgICAgICAgICAgICAgICAg ICAgICAgICAgICAgICAgICAgICAgICAgICAgICAgIC BnSJWuMEBfFJCqDUEdOFCgECDbKQQuPUVhPFViGELdOCPsQJBfMKAkQODyAGXfNZi1S8inVVHwEMExUQ 0iBVr3Ym8+NLeNVcSrZNQ2eeHzwA8ECG3eq7AnXSsbVFDzp4QfYSr1RO5DNEQjBWyeHH8COCfwtw0GDZ KyJXDvvMGPg2zxEzNaSLR2RJZmWwamBM4QJUNqA0rs obDrAOPzAMSLEPlbMNKWWD0XNsElO9OczI57QPVXEh1+ESdftiJjUerGCtT0XJUaf3XfCKo4CE6YQYXt ZMcpRE3YGUJndO0gHHzxWV4MZzLzViAuQEJIYaGrP88mhNJiKFq3O0FrNiHjCKPrOyyjTJGqMQgoMiZm ZXMgWyBdDQogID4+ID4+XZluMF8TBOwvrrYgCLMrEh 6OIYQwMGL2FDNkfFCuVMfdQGVDXLitEE7JvRNyXQG1fB5vGLzrMSCxRYUnY2hZZeAzeTvuUP90oGjelo VsbCBdDQo+Ql6NKD7fw6ZsMYb7ruNbWVsfBES2IDauDAPoGIWzRGFnVTU1UCJ0ALDRGwVaMZSuIHPtYG ypHDMuPHAhtq5EFWCcSCTwCOE7SiCyCVOfARNoMCdi ROKzSOL5NpMkBTNlMFGmEN4RWzTuAVSuULUpYPGiPYNgMAWeyn3HFOWnXUKcNfg4YtChNFAbTINxQTil CWSpCWCbWRY5WUChWQWyJZ8TIlRlFNBbDFF2KSAnAGYaCZJzmz6DZWEhCYMxEJB9NDZuFDJeTRRoNFhi RBIzDGV5ANC3TQHwLRGgSK2FKpKxYYYrGXZoKADjHJ QbAMRler7RMSHsFUFyAMJ6YfMwQFReFMXpIDmgTALdRFC8XnN0YDFtACYePR5TJhSjKDUjLQB9GTihPX EsOZHqxc9YRPAwNPEtHwg8CITsFREiDMBqPMriJKKdMAYxRWQ2KAKnFLPdBT5TDvKaUVPxCAW6OILyWU BqJRSrnl2JHAIiPPLqZNb1EWGyBDTdIMFuPDxqIECq QCH7YpU9RIYqYAFgZK2VFxKtGVtiUHCZBwh2QRhoE0o8JYKuOM6JB2Llm6LcJYeiTZXSPYdsFB9hzfEf RCBhUt8II2pWExp3WNUiLZu1VDtpXEX3GPbnHJIuFIL8ViXrOSupQdBjBy2hSJiySCB9BMudSWF1Auyt RXYyODRyPhb7EXT5NWY3SfBiFeArRK9MAy1IBvH7QFI5oSFkIt6WPRf4KEOYWmIvXQ0DBLk= ID Date Data Source LIPID PANEL (CARDIAC RISK) 05/30/2019 12:00:00 AM EDT eCW1 ( [facility]) Name Value Range Interpretation Code Description Data Cheyenne rce(s) Supporting Document(s) Triglyceride [Mass/volume] in Serum or Plasma by calculation 168 <150 TRIGLYCERIDES LEVEL eCW1 ([facility]) 52 NON-HDL-C eCW1 ([facility]) Cholesterol [Moles/volume] in Serum or Plasma 81 <200 CHOLESTEROL LEVEL eCW1 ([facility]) Cholesterol in LDL [Mass/volume] in Serum or Plasma by calculation 18 <100 LDL CHOLESTEROL eCW1 ([facility]) Cholesterol in HDL [Moles/volume] in Serum or Plasma 29 >40 HDL CHOLESTEROL eCW1 ([facility]) 2.793 <5 CHOLESTEROL RISK RATIO eCW1 ([facility]) ID Date Data Source [id number] 05/30/2019 12:00:00 AM EDT eCW1 ([facility]) Name Value Range Interpretation Code Description Data Cheyenne rce(s) Supporting Document(s) Hemoglobin A1c/Hemoglobin.total in Blood 6.9 HEMOGLOBIN A1c eCW1 ([facility]) ID Date Data Source Basic Metabolic Profile (BMP) 05/12/2019 12:00:00 AM EDT eCW 1 ([facility]) Name Value Range Interpretation Code Description Data Cheyenne rce(s) Supporting Document(s) 79 70-100 GLUCOSE, FASTING eCW1 ([facility]) 4.5 3.5-5.1 POTASSIUM SERUM eCW1 ([facility]) 39 7-18 BLOOD UREA NITROGEN eCW1 ([facility]) 25.5 >45 GLOMERULAR FILTRATION RATE eCW 1 ([facility]) 140 136-145 SODIUM LEVEL eCW1 ([facility]) 2.08 0.55-1.30 CREATININE FOR GFR eCW1 ([facility]) 106 98-107 CHLORIDE LEVEL eCW1 ([facility]) 8.7 8.8-10.2 CALCIUM LEVEL eCW1 ([facility]) 28 21-32 CARBON DIOXIDE LEVEL eCW1 ([facility]) ID Date Data Source CBC with Differential 05/12/2019 12:00:00 AM EDT eCW1 ([facility]) Name Value Range Interpretation Code Description Data Cheyenne rce(s) Supporting Document(s) 2.92 4.00-5.40 RED BLOOD COUNT eCW1 ([facility]) 12.0 4.0-10.0 WHITE BLOOD COUNT eCW1 ([facility]) 7.9 12.0-15.5 HEMOGLOBIN eCW1 ([facility]) 90.8 80.0-96.0 MEAN CORPUSCULAR VOLUME e CW1 ([facility]) 27.1 27.0-33.0 MEAN CORPUSCULAR HEMOGLOB IN eCW1 ([facility]) 26.5 36.0-47.0 HEMATOCRIT eCW1 ([facility]) 29.8 32.0-36.5 MEAN CORPUSCULAR HGB CONC eCW1 ([facility]) 24 150-450 PLATELET COUNT, AUTOMATED eCW1 ([facility]) 21.2 11.5-14.5 RED CELL DISTRIBUTION WID TH eCW1 ([facility]) ID Date Data Source [id number] 04/14/2019 12:50:40 PM [facility] Name Value Range Interpretation Code Description Data Cheyenne rce(s) Supporting Document(s) Discharge Summary [facility] SBKSTl8xCrHQIxGl57/NUQpcMLFaa9DyVBkdYPx1ANzdJUZjO6MrRNF4gP9sIAL8BEaPOmQpUaDoDaU9 lbm [file] B4PyJsZQKwNXFwIKH7BO1jTRRUCf9+UUtxfNOdhUuvGUPAGcC7IEc5ONgfQTWJJa8E ID Date Data Source [id number] 04/09/2019 11:58:57 AM [facility] Name Value Range Interpretation Code Description Data Cheyenne rce(s) Supporting Document(s) Glucose [Mass/volume] in Capillary blood by Glucometer 223 mg/dL 70- 140 H [facility] ID Date Data Source [id number] 04/09/2019 07:32:05 AM [facility] Name Value Range Interpretation Code Description Data Cheyenne rce(s) Supporting Document(s) Glucose [Mass/volume] in Capillary blood by Glucometer 195 mg/dL 70- 140 H [facility] ID Date Data Source [id number] 04/09/2019 01:18:22 AM [facility] Name Value Range Interpretation Code Description Data Cheyenne rce(s) Supporting Document(s) Bicarbonate [Moles/volume] in Serum 20 mmol/L 22-29 L [facility] Chloride [Moles/volume] in Serum or Plasma 97 mmol/L 98-107 L [facility] Creatinine [Mass/volume] in Serum or Plasma 2.46 mg/dL 0.50-0.90 H [facility] Glucose [Mass/volume] in Serum or Plasma 131 mg/dL 70-140 [facility] Potassium [Moles/volume] in Serum or Plasma 4.8 mmol/L 3.4-5.1 [facility] Sodium [Moles/volume] in Serum or Plasma 130 mmol/L 136-145 L [facility] Urea nitrogen [Mass/volume] in Serum or Plasma 72 mg/dL 8-23 H [facility] Anion gap 3 in Serum or Plasma 13 mmol/L 8-15 [facility] Osmolality of Serum or Plasma by calculation 293 mosm/kg 275-300 [facility] Creatinine/Urea nitrogen [Mass Ratio] in Serum or Plasma 29 [facility] Calcium [Mass/volume] in Serum or Plasma 9.1 mg/dL 8.8-10.2 [facility] Glomerular filtration rate/1.73 sq M pre dicted among non-blacks [Volume Rate/Area] in Serum or Plasma by Creatinine-based formula (MDRD) 20 mL/min/1.73m2 >60 L [facility] Glomerular filtration rate/1.73 sq M pre dicted among blacks [Volume Rate/Area] in Serum or Plasma by Creatinine-based formula (MDRD) 23 mL/min/1.73m2 >60 L [facility] ID Date Data Source [id number] 04/09/2019 01:18:22 AM [facility] Name Value Range Interpretation Code Description Data Cheyenne rce(s) Supporting Document(s) Urate [Mass/volume] in Serum or Plasma 11.2 mg/dl 2.4-5.7 H [facility] ID Date Data Source [id number] 04/09/2019 02:39:14 AM [facility] Name Value Range Interpretation Code Description Data Cheyenne rce(s) Supporting Document(s) Leukocytes [#/volume] in Blood by Automated count 21.1 10*3/uL 4-10 H [facility] Erythrocytes [#/volume] in Blood by Automated count 3.02 10*6/uL 4.1- 5.3 [facility] Hemoglobin [Mass/volume] in Blood 8.5 g/dL 11.5-15.5 [facility] Hematocrit [Volume Fraction] of Blood by Automated count 26.6 % 3 6-45 [facility] Erythrocyte mean corpuscular volume [Entitic volume] by Auto mated count 88.0 fL 80-96 [facility] Erythrocyte mean corpuscular hemoglobin [Entitic mass] by Automated count 28.0 pg 27-33 [facility] Erythrocyte mean corpuscular hemoglobin concentration [Mass/volume] by Automated count 31.8 g/dL 32.0-36.0 [facility] width [Ratio] by Automated count 23.1 % 11.5-14.5 [facility] Platelets [#/volume] in Blood by Automated count 31 10*3/uL 150-400 [facility] No Significant Change Since Last Result CalledManual Platelet Count PerformedConfirmed 4060 JWYOccasional Large Platelets seen on slide Differential cell count method - Blood [facility] Neutrophils/100 leukocytes in Blood by Automated count 37 % [facility] Lymphocytes/100 leukocytes in Blood by Automated count 19 % [facility] Monocytes/100 leukocytes in Blood by Automated count 28 % [facility] Basophils/100 leukocytes in Blood by Automated count 3 % [facility] Neutrophils [#/volume] in Blood by Automated count 7.91 10*3/uL 1.8-7 .0 H [facility] Lymphocytes [#/volume] in Blood by Automated count 4.05 10*3/uL 1.2-4 .0 [facility] Monocytes [#/volume] in Blood by Automated count 5.89 10*3/uL 0-0.8 H [facility] Confirmed by 4060 j[address] Basophils [#/volume] in Blood by Automated count 0.61 10*3/uL 0-0.2 H [facility] Confirmed by 1521 Nucleated erythrocytes/100 leukocytes [Ratio] in Blood by Automated count 9 /100{WBCs} 0-0 H [facility] Confirmed by [address] Band form neutrophils/100 leukocytes in Blood by Manual count 1 % [facility] Myelocytes/100 leukocytes in Blood by Manual count 5 % [facility] Metamyelocytes/100 leukocytes in Blood by Manual count 7 % [facility] Band form neutrophils [#/volume] in Blood by Manual count 0.21 10*3 /uL 0-0.6 [facility] Myelocytes [#/volume] in Blood by Manual count 1.01 10*3/uL 0-0 H [facility] Metamyelocytes [#/volume] in Blood by Manual count 1.41 10*3/uL 0-0 [facility] Anisocytosis [Presence] in Blood by Light microscopy [facility] Microcytes [Presence] in Blood by Light [facility] Poikilocytosis [Presence] in Blood by Light [facility] Stomatocytes [Presence] in Blood by [facility] ID Date Data Source [id number] 04/08/2019 09:16:43 PM [facility] Value Range Interpretation Code Description Data Cheyenne rce(s) Supporting Document(s) Glucose [Mass/volume] in Capillary blood by Glucometer 169 mg/dL 70- 140 [facility] ID Date Data Source [id number] 04/08/2019 04:58:01 PM [facility] Value Range Interpretation Code Description Data Cheyenne rce(s) Supporting Document(s) Glucose [Mass/volume] in Capillary blood by Glucometer 175 mg/dL 70- 140 [facility] ID Date Data Source [id number] 04/08/2019 12:07:39 PM [facility] Value Range Interpretation Code Description Data Chyeenne rce(s) Supporting Document(s) Glucose [Mass/volume] in Capillary blood by Glucometer 218 mg/dL 70- 140 [facility] ID Date Data Source [id number] 04/08/2019 07:49:38 AM [facility] Value Range Interpretation Code Description Data Cheyenne rce(s) Supporting Document(s) Glucose [Mass/volume] in Capillary blood by Glucometer 173 mg/dL 70- 140 H [facility] ID Date Data Source [id number] 04/08/2019 01:37:36 AM [facility] Value Range Interpretation Code Description Data Cheyenne rce(s) Supporting Document(s) Bicarbonate [Moles/volume] in Serum 21 mmol/L 22-29 L [facility] Chloride [Moles/volume] in Serum or Plasma 96 mmol/L 98-107 L [facility] Creatinine [Mass/volume] in Serum or Plasma 2.33 mg/dL 0.50-0.90 H [facility] Glucose [Mass/volume] in Serum or Plasma 188 mg/dL 70-140 H [facility] Potassium [Moles/volume] in Serum or Plasma 4.6 mmol/L 3.4-5.1 [facility] Sodium [Moles/volume] in Serum or Plasma 131 mmol/L 136-145 L [facility] Urea nitrogen [Mass/volume] in Serum or Plasma 71 mg/dL 8-23 H [facility] Anion gap 3 in Serum or Plasma 14 mmol/L 8-15 [facility] Osmolality of Serum or Plasma by calculation 298 mosm/kg 275-300 [facility] Creatinine/Urea nitrogen [Mass Ratio] in Serum or Plasma 30 [facility] Calcium [Mass/volume] in Serum or Plasma 9.4 mg/dL 8.8-10.2 [facility] Glomerular filtration rate/1.73 sq M pre dicted among non-blacks [Volume Rate/Area] in Serum or Plasma by Creatinine-based formula (MDRD) 21 mL/min/1.73m2 >60 L [facility] Glomerular filtration rate/1.73 sq M pre dicted among blacks [Volume Rate/Area] in Serum or Plasma by Creatinine-based formula (MDRD) 24 mL/min/1.73m2 >60 L [facility] ID Date Data Source [id number] 04/08/2019 01:37:36 AM [facility] Value Range Interpretation Code Description Data Cheyenne rce(s) Supporting Document(s) Urate [Mass/volume] in Serum or Plasma 11.3 mg/dl 2.4-5.7 H [facility] ID Date Data Source [id number] 04/08/2019 02:37:03 AM [facility] Name Value Range Interpretation Code Description Data Cheyenne rce(s) Supporting Document(s) Leukocytes [#/volume] in Blood by Automated count 18.3 10*3/uL 4-10 H [facility] Confirmed Erythrocytes [#/volume] in Blood by Automated count 3.06 10*6/uL 4.1- 5.3 L [facility] Hemoglobin [Mass/volume] in Blood 8.6 g/dL 11.5-15.5 [facility] Hematocrit [Volume Fraction] of Blood by Automated count 27.0 % 3 6-45 L [facility] Erythrocyte mean corpuscular volume [Entitic volume] by Auto mated count 88.2 fL 80-96 [facility] Erythrocyte mean corpuscular hemoglobin [Entitic mass] by Automated count 28.1 pg 27-33 [facility] Erythrocyte mean corpuscular hemoglobin concentration [Mass/volume] by Automated count 31.8 g/dL 32.0-[facility] width [Ratio] by Automated count 22.6 % 11.5-14.5 H [facility] Platelets [#/volume] in Blood by Automated count 16 10*3/uL 150-400 [facility] ConfirmedNo significant change since t result called Differential cell count method - Blood [facility] Neutrophils/100 leukocytes in Blood by Automated count 35 % [facility] Lymphocytes/100 leukocytes in Blood by Automated count 14 % [facility] Monocytes/100 leukocytes in Blood by Automated count 22 % [facility] Eosinophils/100 leukocytes in Blood by Automated count 2 % [facility] Basophils/100 leukocytes in Blood by Automated count 1 % [facility] Neutrophils [#/volume] in Blood by Automated count 6.64 10*3/uL 1.8-7 .0 [facility] Lymphocytes [#/volume] in Blood by Automated count 2.62 10*3/uL 1.2-4 .0 [facility] Monocytes [#/volume] in Blood by Automated count 4.02 10*3/uL 0-0.8 H [facility] Eosinophils [#/volume] in Blood by Automated count 0.36 10*3/uL 0-0.5 [facility] Basophils [#/volume] in Blood by Automated count 0.17 10*3/uL 0-0.2 [facility] Nucleated erythrocytes/100 leukocytes [Ratio] in Blood by Automated count 6 /100{WBCs} 0-0 H [facility] Band form neutrophils/100 leukocytes in Blood by Manual count 1 % [facility] Myelocytes/100 leukocytes in Blood by Manual count 12 % [facility] Metamyelocytes/100 leukocytes in Blood by Manual count 13 % [facility] Confirmed by [id number]. Band form neutrophils [#/volume] in Blood by Manual count 0.17 10*3 /uL 0-0.6 [facility] Myelocytes [#/volume] in Blood by Manual count 2.26 10*3/uL 0-0 H [facility] Metamyelocytes [#/volume] in Blood by Manual count 2.45 10*3/uL 0-0 H [facility] Acanthocytes [Presence] in Blood by Light microscopy [facility] Anisocytosis [Presence] in Blood by Light microscopy [facility] Schistocytes [Presence] in Blood by Light microscopy [facility] ID Date Data Source [id number] 04/13/2019 07:05:29 AM [facility] Name Value Range Interpretation Code Description Data Cheyenne rce(s) Supporting Document(s) Cytomegalovirus DNA [Units/volume] (sangita l load) in Plasma by Probe and target amplification method Negative [facility] (NOTE)No CMV DNA detected.The quantitati ve range of this assay is 200 to 1 million IU/mL.This test was developed and its performance characteristicsdetermined by [facility]. It has not been cleared or approved by theFood and Drug Administration. The FDA has determined that suchclearance or approval is not necessary.Performed At: [address] [place], [place] [id number] Waldron MD Ph:[phone] Cytomegalovirus DNA [log units/volume] ( viral load) in Plasma by Probe and target amplification method [facility] (NOTE)Unable to calculate result since n on-numeric result obtained forcomponent test. ID Date Data Source [id number] 04/07/2019 09:45:54 PM [facility] Name Value Range Interpretation Code Description Data Cheyenne rce(s) Supporting Document(s) Glucose [Mass/volume] in Capillary blood by Glucometer 196 mg/dL 70- 140 H [facility] ID Date Data Source [id number] 04/07/2019 04:51:37 PM [facility] Value Range Interpretation Code Description Data Cheyenne rce(s) Supporting Document(s) Glucose [Mass/volume] in Capillary blood by Glucometer 236 mg/dL 70- 140 [facility] ID Date Data Source [id number] 04/07/2019 11:42:45 AM [facility] Value Range Interpretation Code Description Data Cheyenne rce(s) Supporting Document(s) Glucose [Mass/volume] in Capillary blood by Glucometer 258 mg/dL 70- 140 [facility] ID Date Data Source [id number] 04/07/2019 09:59:47 AM [facility] Value Range Interpretation Code Description Data Cheyenne rce(s) Supporting Document(s) Urate [Mass/volume] in Serum or Plasma 12.1 mg/dl 2.4-5.7 [facility] ID Date Data Source [id number] 04/07/2019 01:26:38 PM [facility] Value Range Interpretation Code Description Data Cheyenne rce(s) Supporting Document(s) Triiodothyronine (T3) Free [Mass/volume] in Serum or Plasma 2.02 pg/mL 2.00-4.40 [facility] ID Date Data Source [id number] 04/07/2019 01:26:38 PM [facility] Value Range Interpretation Code Description Data Cheyenne rce(s) Supporting Document(s) Thyroxine (T4) free [Mass/volume] in Serum or Plasma 1.24 ng/dL 0.93- 1.70 [facility] ID Date Data Source [id number] 04/07/2019 08:09:49 AM [facility] Value Range Interpretation Code Description Data Cheyenne rce(s) Supporting Document(s) Glucose [Mass/volume] in Capillary blood by Glucometer 180 mg/dL 70- 140 [facility] ID Date Data Source [id number] 04/07/2019 01:51:09 AM [facility] Value Range Interpretation Code Description Data Cheyenne rce(s) Supporting Document(s) HIV 1+2 Ab+HIV1 p24 Ag [Presence] in Serum or Plasma by Immu noassay Non Reactive [facility] Negative for HIV-1 p24 antigenand HIV-1/ HIV-2 antibodies. Nolaboratory evidence of HIVinfection. ID Date Data Source [id number] 04/11/2019 02:06:05 PM [facility] Name Value Range Interpretation Code Description Data Cheyenne rce(s) Supporting Document(s) Cytomegalovirus IgM Ab [Units/volume] in Serum by Immunoassay 0.0-29.9 [facility] (NOTE) Neg ative <30.0 Equivocal 30.0 - 34.9 Positive >34.9A positive result is generally indicative of acuteinfection, reactivation or persistent IgM production.Performed At: RN [facility] [address] [id number] Griffin MD Ph:[phone] ID Date Data Source [id number] 04/07/2019 01:36:55 AM [facility] Name Value Range Interpretation Code Description Data Cheyenne rce(s) Supporting Document(s) Bicarbonate [Moles/volume] in Serum 22 mmol/L 22-29 [facility] Chloride [Moles/volume] in Serum or Plasma 96 mmol/L 98-107 L [facility] Creatinine [Mass/volume] in Serum or Plasma 2.37 mg/dL 0.50-0.90 H [facility] Glucose [Mass/volume] in Serum or Plasma 190 mg/dL 70-140 H [facility] Potassium [Moles/volume] in Serum or Plasma 4.6 mmol/L 3.4-5.1 [facility] Sodium [Moles/volume] in Serum or Plasma 131 mmol/L 136-145 L [facility] Urea nitrogen [Mass/volume] in Serum or Plasma 67 mg/dL 8-23 H [facility] Anion gap 3 in Serum or Plasma 13 mmol/L 8-15 [facility] Osmolality of Serum or Plasma by calculation 296 mosm/kg 275-300 [facility] Creatinine/Urea nitrogen [Mass Ratio] in Serum or Plasma 28 [facility] Calcium [Mass/volume] in Serum or Plasma 9.9 mg/dL 8.8-10.2 [facility] Glomerular filtration rate/1.73 sq M pre dicted among non-blacks [Volume Rate/Area] in Serum or Plasma by Creatinine-based formula (MDRD) 21 mL/min/1.73m2 >60 L [facility] Glomerular filtration rate/1.73 sq M pre dicted among blacks [Volume Rate/Area] in Serum or Plasma by Creatinine-based formula (MDRD) 24 mL/min/1.73m2 >60 L [facility] ID Date Data Source [id number] 04/07/2019 04:26:05 AM [facility] Name Value Range Interpretation Code Description Data Cheyenne rce(s) Supporting Document(s) Leukocytes [#/volume] in Blood by Automated count 17.9 10*3/uL 4-10 H [facility] Confirmed Erythrocytes [#/volume] in Blood by Automated count 2.99 10*6/uL 4.1- 5.3 L [facility] Hemoglobin [Mass/volume] in Blood 8.5 g/dL 11.5-15.5 L [facility] Hematocrit [Volume Fraction] of Blood by Automated count 26.3 % 3 6-45 L [facility] Erythrocyte mean corpuscular volume [Entitic volume] by Auto mated count 88.0 fL 80-96 [facility] Erythrocyte mean corpuscular hemoglobin [Entitic mass] by Automated count 28.4 pg 27-33 [facility] Erythrocyte mean corpuscular hemoglobin concentration [Mass/volume] by Automated count 32.3 g/dL [facility].0-[facility] [Ratio] by Automated count 22.6 % 11.5-14.5 H [facility] Platelets [#/volume] in Blood by Automated count 19 10*3/uL 150-400 LL [facility] ConfirmedCalled to and read back by Katrina Cabrera RN, 10H, 04:23. 8763 Differential cell count method - Blood [facility] Neutrophils/100 leukocytes in Blood by Automated count 19 % [facility] Lymphocytes/100 leukocytes in Blood by Automated count 24 % [facility] Monocytes/100 leukocytes in Blood by Automated count 28 % [facility] Eosinophils/100 leukocytes in Blood by Automated count 1 % [facility] Basophils/100 leukocytes in Blood by Automated count 2 % [facility] Neutrophils [#/volume] in Blood by Automated count 3.47 10*3/uL 1.8-7 .0 [facility] Lymphocytes [#/volume] in Blood by Automated count 4.35 10*3/uL 1.2-4 .0 H [facility] Monocytes [#/volume] in Blood by Automated count 5.05 10*3/uL 0-0.8 H [facility] Confirmed by 1663. Eosinophils [#/volume] in Blood by Automated count 0.18 10*3/uL 0-0.5 [facility] Basophils [#/volume] in Blood by Automated count 0.34 10*3/uL 0-0.2 H [facility] Nucleated erythrocytes/100 leukocytes [Ratio] in Blood by Automated count 12 /100{WBCs} 0-0 H [facility] Band form neutrophils/100 leukocytes in Blood by Manual count 2 % [facility] Variant lymphocytes/100 leukocytes in Blood by Manual count 1 % [facility] Myelocytes/100 leukocytes in Blood by Manual count 14 % [facility] Metamyelocytes/100 leukocytes in Blood by Manual count 9 % [facility] Band form neutrophils [#/volume] in Blood by Manual count 0.34 10*3 /uL 0-0.6 [facility] Lymphocytes [#/volume] in Blood 0.18 10*3/uL 0 H [facility] Myelocytes [#/volume] in Blood by Manual count 2.43 10*3/uL 0-0 H [facility] Metamyelocytes [#/volume] in Blood by Manual count 1.56 10*3/uL 0-0 [facility] Acanthocytes [Presence] in Blood by Light [facility] Anisocytosis [Presence] in Blood by Light [facility] Microcytes [Presence] in Blood by Light [facility] Poikilocytosis [Presence] in Blood by Light [facility] Polychromasia [Presence] in Blood by [facility] Spherocytes [Presence] in Blood by [facility] ID Date Data Source [id number] 04/07/2019 09:22:13 AM [facility] Value Range Interpretation Code Description Data Cheyenne rce(s) Supporting Document(s) Magnesium [Mass/volume] in Serum or Plasma 3.2 mg/dL 1.6-2.4 H [facility] ID Date Data Source [id number] 04/07/2019 09:22:13 AM [facility] Value Range Interpretation Code Description Data Cheyenne rce(s) Supporting Document(s) Phosphate [Mass/volume] in Serum or Plasma 4.4 mg/dL 2.5-4.5 [facility] ID Date Data Source [id number] 04/08/2019 11:24:44 AM EST [facility] Name Value Range Interpretation Code Description Data Cheyenne rce(s) Supporting Document(s) Cytomegalovirus IgG Ab [Presence] in Serum by Immunoassay Negative A [facility] ID Date Data Source [id number] 04/09/2019 06:05:22 AM [facility] Value Range Interpretation Code Description Data Cehyenne rce(s) Supporting Document(s) Copper [Mass/volume] in Serum or Plasma 123 ug/dL 72-166 [facility] (NOTE)This test was developed and its pe rformance characteristicsdetermined by [facility]. It has not been cleared or approvedby the Food and Drug Administration. Detection Limit = 5Performed At: [facility] [id number] Waldron MD Ph:[phone] ID Date Data Source [id number] 04/09/2019 06:05:23 AM [facility] Value Range Interpretation Code Description Data Cheyenne rce(s) Supporting Document(s) Zinc [Mass/volume] in Serum or Plasma 68 ug/dL 56-134 [facility] (NOTE)This test was developed and its pe rformance characteristicsdetermined by [facility]. It has not been cleared or approvedby the Food and Drug Administration. Detection Limit = 5Performed At: [facility] [id number] Waldron MD Ph:[phone] ID Date Data Source [id number] 04/07/2019 01:53:04 AM [facility] Value Range Interpretation Code Description Data Cheyenne rce(s) Supporting Document(s) Hepatitis A virus IgM Ab [Presence] in Serum or Plasma by Im munoassay Non Reactive [facility] Hepatitis B virus core IgM Ab [Presence] in Serum or Plasma by Immunoassay Non Reactive [facility] IgM antibodies to HBc were not detected, does not exclude the possibility of exposure to HBV. Hepatitis C virus Ab [Presence] in Serum or Plasma by Immuno assay Non Reactive [facility] No serological evidence of active infect ion. If recent exposure is suspected, test for HCV RNA. Hepatitis B virus surface Ag [Presence] in Serum or Plasma b y Immunoassay Non Reactive [facility] No active or previous infection. Suscept ible to infection. ID Date Data Source [id number] 04/08/2019 08:42:01 AM [facility] Value Range Interpretation Code Description Data Cheyenne rce(s) Supporting Document(s) Thyroperoxidase Ab [Units/volume] in Serum or Plasma 0.5 IU/mL <9.0 [facility] ID Date Data Source [id number] 04/07/2019 01:08:00 AM [facility] Value Range Interpretation Code Description Data Cheyenne rce(s) Supporting Document(s) HLA MOLECULAR ABCDRDQ [facility] ID Date Data Source [id number] 04/06/2019 11:13:36 PM [facility] Value Range Interpretation Code Description Data Cheyenne rce(s) Supporting Document(s) History and Physical [facility] JCCNPo1tIuVOLgTx86/ERZikCMQgn9JkCPodRIt2TSndXPYkC7RfXGN1aH7vSSY4YJrVMhGlNjJiCkX0 lbm [file] ICAgICAgICAgICAgICAgICAgICAgICAgICAgICAgIC AgICAgICAgICAgICAgICAgICAgICAgICAgICAgICAgICAgDQogICAgICAgICAgICAgICAgICAgICAgIC AgICAgICAgICAgICAgICAgICAgICAgICAgICAgICAgICAgICAgICAgICAgICAgICAgICAgICAgICAgIC AgICAgICAgICAgICAgICAgDQogICAgICAgICAgICAg ICAgICAgICAgICAgICAgICAgICAgICAgICAgICAgICAgICAgICAgICAgICAgICAgICAgICAgICAgICAg ICAgICAgICAgICAgICAgICAgICAgICAgICAgDQogICAgICAgICAgICAgICAgICAgICAgICAgICAgICAg ICAgICAgICAgICAgICAgICAgICAgICAgICAgICAgIC AgICAgICAgICAgICAgICAgICAgICAgICAgICAgICAgICAgICAgDQogICAgICAgICAgICAgICAgICAgIC AgICAgICAgICAgICAgICAgICAgICAgICAgICAgICAgICAgICAgICAgICAgICAgICAgICAgICAgICAgIC AgICAgICAgICAgICAgICAgICAgDQogICAgICAgICAg ICAgICAgICAgICAgICAgICAgICAgICAgICAgICAgICAgICAgICAgICAgICAgICAgICAgICAgICAgICAg ICAgICAgICAgICAgICAgICAgICAgICAgICAgICAgDQogICAgICAgICAgICAgICAgICAgICAgICAgICAg ICAgICAgICAgICAgICAgICAgICAgICAgICAgICAgIC AgICAgICAgICAgICAgICAgICAgICAgICAgICAgICAgICAgICAgICAgDQogICAgICAgICAgICAgICAgIC AgICAgICAgICAgICAgICAgICAgICAgICAgICAgICAgICAgICAgICAgICAgICAgICAgICAgICAgICAgIC AgICAgICAgICAgICAgICAgICAgICAgDQogICAgICAg ICAgICAgICAgICAgICAgICAgICAgICAgICAgICAgICAgICAgICAgICAgICAgICAgICAgICAgICAgICAg ICAgICAgICAgICAgICAgICAgICAgICAgICAgICAgICAgDQogICAgICAgICAgICAgICAgICAgICAgICAg ICAgICAgICAgICAgICAgICAgICAgICAgICAgICAgIC KvZYTjLVGjUSAyNENsZVKrNCGoUOOiVQHyPEZiFPPcYDYiVLAaBBYyBQOtUHc8P2huEZAlALFhMW3vBW d3Jz8+IJsFObHoNFQ0ifSioB0TOH8nj6FoMBvyPUZey7AlWLc8RC0BOHTmIBzfLJ3ZMCmrpg6AQVJzTP UxnYDTh4gkLkSfCNV1XHTpJhgvEW5LGQNqV0oqrgNg BMQwTHPUKRhkHMCLGQqbNTJKZHHtPDJsGqCkEoKxADChFD2IJRFfW720pqNpRF5JJs6WGgExIC0sah3M DzUlTOIqDowMVgd6PKvfAE6FgTEdbEOdPWTaKWSRSpXvT5ywo3VrMwZsVWKKHUigYI7Fq8OfeZAlHNd+ Tq1TCE6tk4XfMRhfRIEmDZ7rve2OAHcNFsHbY2PtpP zfUJfeOMKsvEUVjZZgmmOHXUaypNEdjzQsUT1KWTB7RGScUBpoPfHpXXDaIWhrQYQFQFwQIdMgA6Gqh8 TiGoM5RNYsZqSlBQggCKQbAbX4ZH92nNoqLC2AJSNwWRBkGU15UWAlHFIgQi5GRt5FAoJkXJ2mft4BCx ZaHWMqFekVQzg5GUnySN8QfFSpQ1WssHNuu6nISdZx L3NTBMRdBTHjPq1RQMNnBkJuSHFeXYlhMI6cJOSwBWENmUkntbG2GJ8GHS8pfjOlXP7FQfUtOu5tQm6E XzClX0JyU8TrJPJbZCMRUGwtEP3QRKveNV2eDB7Ke6HFkENiaK9mbv5PMNQrAYVxTzowgm6MMfijG2M6 qXfoHENaQoUnXCTKRWmzMY5RAHNrTIV3DKShQfZnUH OUMaNpI25cBH8ZT0Yel86nMfG8PUNkBmEaBEjmRX15jNivcpQbiASqiYwwAM2GGg2+DQplbmRvYmoNCn rhFLOTYrRhUcKVGcHcWNVoQOOaDQMaNkV4ZjCoNw1LTSKeQKVrDHLyFvKnMKHyHBVsIAybQUExBZR9JL GnAQWqKWIgZU4DFcTtFLCzDsB0GEIlEHNnKMVwnc8J JFDwPHFmGAH4FuXiQLWfMRPrATyaZNBcOZF3BCorMQJzOFVpFB3SWfThKUDyXCSwNFQeAEZvZKHbmo1L WCYuQNZvWrqpUpKrRYUxCSGaOSolWPJdQNJ9VCW9LWBsZSMwDD3ERsLyLNMuXTG4ALQtBFFvXDWhqu9Y CCDeZMZbFFA0EUDrNSQkIZDgITsjZJAkKNL1KqKzMH SeLGZfYK4CLdVdRJBrGZD7XUkxKCSeYXQdye2EYWOcIIWoIsH5EuXcVAAcPKQgLSicIDQvBEE4TDdcXL MdHYIhBJ8YEwRuVBYnYTt5RAHjFZLsLXZrky1CNVLyGRTrTTH1AGVkXYVuAABdBWcbDETlGXV3UZKsKD OeZOWoXC8LHkMxTSGcWGq5UGSqHJTjACBqca3WWILn YFDnLGj3GEMjALWiZDSzVFkfAEQmIMZpMWhsQDDgTUOgGS5KWcIsLJPlGoNtKEGgDCHgHZNtlq0NFCMv BNMbNVWnTWSiOFZqQZFbWNzqZZQbWLKcYBXwABBfVFIeZK9GRmZeIJKxHcA0UShmPUBtRBNevh7XBRHd RHWfAmUsDZAqYUFcUQLbRRmdOLCjCSBxNHW5YZUjHQ PfPH3OAkJrFRWtFaH4DkHoJVPpAEMtow6FYIXxZBAxOdzlHYMdUKYyVZInYTvbDHGsMDW7PqJlDVBhHW VnIC9WKxZdALBeKbR7WOBhXNLaQJCbml4PDFLbUOGlRXMyWFNhHHJzQBSeBDryPWCaEWF2EDIyRQMqJP IhSY6FZtOzDBViRqplSiEnGHYzXNKpog4OMWUtKMMw AfS7NxFuPKWxAPJfJRmoYYXnFXV1LsS1FVYtHFOuOI6HBrInDMiiOGRJVik5XYuyO7j8ESEbQv3RF9Ki r9OgMsHbKKTLAZkrXA0klaVnFJOkJf7UT6oNTccqD0G5OQZxGnyeHyMcXnK0RNWhLGBaMXSaYjU0CoA3 HF5mAWK1VpS2RkX4SHXpNYPpEOmcJJC9EAL0FQWgEX buPYDsAsHxAR8PGi3ZUeR9ZSK9gWJpSw2IZmy3NACBHrOcUO5MNXz= ID Date Data Source [id number] 04/06/2019 09:08:25 PM [facility] Value Range Interpretation Code Description Data Cheyenne rce(s) Supporting Document(s) Glucose [Mass/volume] in Capillary blood by Glucometer 296 mg/dL 70- 140 H [facility] ID Date Data Source [id number] 04/06/2019 04:40:27 PM [facility] Value Range Interpretation Code Description Data Cheyenne rce(s) Supporting Document(s) Glucose [Mass/volume] in Capillary blood by Glucometer 221 mg/dL 70- 140 H [facility] ID Date Data Source [id number] 04/07/2019 09:10:08 AM [facility] Value Range Interpretation Code Description Data Cheyenne rce(s) Supporting Document(s) Flow cytometry study [facility] ID Date Data Source [id number] 04/06/2019 11:50:40 AM EST [facility] Name Value Range Interpretation Code Description Data Cheyenne rce(s) Supporting Document(s) Glucose [Mass/volume] in Capillary blood by Glucometer 171 mg/dL 70- 140 H [facility] ID Date Data Source [id number] 04/06/2019 10:44:06 AM EST [facility] Name Value Range Interpretation Code Description Data Cheyenne rce(s) Supporting Document(s) [facility] DYJOSj9nNlDRHuUhe6KgQvWbMWVhNH7fldq7C5Y9tQZvQ4NxrBAja4vqW9BlX8PyCLNkOMKLXZ6KaLBv jb2 [file] 7Xhl+7+7Xh1+5+jfk9c20xkb0b18Fw+/f69D8IB6/mh4/m5+fZ/PDh/Pw8nR8+accounting systems manager+f5/PDB/Tz84R++I h+fp7RDx/Sz89T+uFj+vnxswmQ/74BUCeq81zRMq6ibOdHYs9CpPjiFuoM1WgYYTFky4qvDLrQS8YJVw +KRChJRH+2ObGrT51XeozBVdKCW/lRJkJpIj/aRChO 5EedCOWJ/AfCtLSDP2JrnUtrc0UYWwFpM8C9YmwaU0JZ/HvOrOHGH39eUWrbh8aVqiA+9IpQsMiPYhFK FvnRLELRIj+eHOti2Kd9WTJY/CgXoXSRH+0iFC/ia97S9mL+4AxKfLuGmeVIZNfTUJATNf6pEjoddP+7 6aAZB70KodsGjpMBCqrSK2Q6Zs06Wtsk5WtLOSXH/G eudhzGY6OxlCEkc0dFobxe003Kwl2oN7I2fV25B9C96tTsvHUSgmIRKAYOi5FRyfu5PIxAmTZ/OkcodO QM4FoismroVsWOwI+0Z3O61rF0jXGHiaANIUWIc+XBfd83BC3O8OP/ukcofORH+Qilj/tyW6I0nX/1I5 Q/8qN/hBZVbkFAEWUIzwPDdwA9NIHTNGN/OkgohORH AHdmiXmhObLJer70TAJQ7pPLqRoZb/SQUg/rqk7G9pA97THFFlQ/ekiph/SCJeq0oS1jUtKj4x55hTSO +qOHlHpIf/SQUg/ygg8A6dX19OZQErL/ekiph/VUPls7dD1jUpIu0c85jXRM+js/8xVqsxei8bFIjdvW 1bBtsjzh6sF/7jFtygS3iiXZ9neF9vEPyu/ZmjZd86 OHlHpIf/SQUg/cgm3B5mX20IVSIqM/ekiph/TBTpf8nY6fGfUu0f06zGBA+qOHlHpIf/SQUg/sti5L9x A33SWKVkO/ekiph/VSCqs3gI5bJeGd2n62nLPH+qOHlHpIf/SQUg/kzy6Z1wZ43UHWJfO/ekiph/RHDy e7eD1xNtLc6g41iCAC+qOHlHpIf/SQUg/oyy4O4qF2 0UNKPaQ/ekiph/KVTea9iX7iFxFf5h53rPTM+qOHlHpIf/SQUg/oky0eD0xPdN/aKXlIEWFB5SLEOUhx x/gzXhHSMGOyIguFMz0WsdAwwI5Xe0R+KP1R+mP0x+iP0R+jP0Z/jP4Y/TH6Y/TH6I/RH6M/Rn+M/hj9 Mfoz6M+gP4P+DPoz6M+gP4P+DPoz6M+gP4P+DPoz6M +gP4P+XPui2Rzpi3Nhsr3Be3c+OP1x+uP0x+mP05/Ws5z+OP1x+uP0J+hP0J+gP0F/gv4E/Qn6E/Qn6E /Qn6A/QX+C/oJ8NxfH3DmYf2v/Jm3R5KdTz4e/Rh7J9HrGa2n/Eu0S5UvLx0q/Sv1A6DfHq0N/Fv1Z9G fRn0V/Rv5P9InOd6E/Jt8D4UwUw1R/Jp8F6ByXn43/ Yo4T5WbYe29/Zm1E5GxFu60/Yp4U2KuQs27/Mq8M2Kvvkc+TsngmhQUAO5KZp2jDnv5ItbN0Pj1F+rRn 28Icca37ol2q4wp3/6T5J80/af5J80+af9L8k+afNP+k+DfMaw0etplk5lXaer4ayh6MNmGsYSlxJtGo hpAmIqSpCGkyQpqOkCYkpCkJaVJCmpaQJiakqQlpck [file] o09wv8S2139BY2K+9/++7jd+8//h4aeb93xFw3+O33 n95/8+1s58fMY9+/++2bDz/ryM1j7/993PWpOXOCNmTo2c/z/SlmX4t57/G4N816+Pb9m7/y2/sFfP/2 4/u//+rTyxfff/M2x8r7T3188ecCNp43++V//St/I9WVTy//+Wa0097nvGFCcr+/otQd6ns/+cDlj389 9/2lf99g53/52aqA22200cZJ4s2+/+9Ni863/dfOIJ dnojr5t/Py7su//ys/u/nA/bN//GkyE72P+fo3bz6+e/vyj+8/fXX/ehr3d34bvra5667//Bf5xLpXlJ sP77/+8hWEktwyB44+/94vXwd36i8K74182HELn5bAsEpvqGp82epV327+fB+pbDh1qs///Kd/+eNffv zhn1/+23+8/Ce0ux0xQs/lmRhslvt16cskp1736/7d h5d/+hvxf/rblz//6UV/JbpKfEFyww4695/8/c3X/+bbLoWGuQj4B8/81b/t2SmxoYK7sc/+FnjzVwb/ 1J375n2AzZ+uB1x/d/3dBBqCPGfX+m5U4eCtwPrk8vH8KByvD6/vl5fr5/2R2OwAIg/8yw9/+Uu46/OX l998/Pa3MVK++686f105/ZO+tp/83fHzF/cflmd/6n D+eZS/b7hhx93v20DHolDZ9qg+k/vntz/86d//7uUvv//5V79u73s17Lrcm9E/5RleklSaYNFg2S4De/ n48sc//fsPf/nfv//Py1B75fZ/tvtzqcbPd7/Bf/j43cs//6/Xk//jn//08/3HcnY/23/u4sH+4dOv/u HTH4C/ba7BlVp+q/1Cu12n91u/oqHd8967bx6zjl/A qxYLjeIZ9wrPD4udj/fo33baMv5/f374t/925ooA7tphnV955Lbf3/+f/mb0l//4yz/97c9+va/Er3/4 8ff/+bRbjM5El/n7//WH3//bH3//p/+8h8cTH//85x8/l4bjUv9HY/ZZf/jzHz5//GteWtxxJJS0MR3s D//jT3/8w+thPr+HjUr47J1XUOG/+2///jp6/vnzX3 /4/u8sG1887BIzCs6nv59/9+3Ht+/+8yoR2An+fPv1/MS66eKcwbnc1Y//k/yZTX0uBpD/8/v//sOLvP e9J684BAqJ9+qS5V10QTjr/cu71/4oL7eygz31yI12xbZWvn/95vhI9yD+xbK18bmmg/3+m9ff3l/P/f BEc1nk2/1NoiDUfhuhtyMbrSJlWM2BWH2lc9TaCrA0 UVKvr2XnPPwzSOd8kAUcQXkscgRyn0HkmruxO9Yju2IuLiNiYIWgKdBdNgo2VSFhJnZ6jOBmYhRyFDLd V8OlDCAeGzF7AxGjNAKREA7KYFYhifPpDlZiTIO+QqFjSE3bjpouAXOxt5AwSBotVNjtCWCyS4A1oYkq KFXjH8HfwA02MGRhS9QhtjP9EXW6YKNxZiZfJFInpR AxOSAwIFI+NfOjRK7apiijCZHyp0LaGEryRXG8kP2lNThEMQYNKWbOKYmhSfI8h81xuoLNQYLcJJWgMY 9RkbJamFnfhoOlaPThFMZ7XtXlNTWrKHfvEPR7LKJMPCViIEBdDHGbWSSiD3DcjGrdCKtAQQELUKsZAM zxDfWja4W2YBBmsmQQHGDRJGPVDWJRFJP2VCRrChPs DO6FiBEwQNU5KUxNEKBJDNnRSApjInPfn9D1WYIxE6UwIULfoxHaWKRUFAwzBccmBQ2ohIlrmcfjM6By qKEjSZETBGYcNWFyRBGySHNiK5Wsa9L2O1GfFBzPIKHRMLrFJXfrSbE1g26upiVJOWNqWBNzEZ0+ZW5k y8ApTv9ZCTUdBE7mjvq4YX6JnHJfTJ2RIFvrldDnT9 ycyqOcYxEpREUUNM4pV5LleL22MQL+SiCmKH0snvm3bsLsHiLcFVXqAELjNVSdAWdnZEWyNBIoXMCgUW Z6ORH6GHGqJsHqATKvIcT7JlyyLAHcETEowsATLULdBZY5USRwDeXzFLCoTXQtLNohXAUtUNM6ScK1CS TzPAXqTO5fUxPhLMDtVAKuQPFsAvF7SvUdBnJZKZGy GDXyKKVdNnNcGDGnKBIgVSxsFMGhZGQwZKo2HMSuWYHpYL7iHeQfRHBoNIQdUIKiDANeHGTyezTUHNHi XMZsQXP4MRCbHAKrSKCrNRsaMKAcWBXxHJJ6XYPwGFJuZZ7dPrNnSQQmKCI8HnDkNGKhXCNsxfQIBLGe MAOnRHP8RDKgYLOxPHUzQLknYMKbTXTjUfE8QDYkJI SzKX2zCuLrRSLnNZR0VLBdSWOuJHQrkaVHIGOqVYPbTHn2KwGiDZMqGIPjQKcxSCXpFSEgEClxHKTpVG WmSD6lKqPkHNGhZLWnESMaAMMjNZUnhhAZDQEzYDOyJTK8LsSjWKYuUIWzAJycNRQzQTUrSCI2QDNgIY UlGZ2sMuArBWDhYqU9NkwgUXQmOWHhqlGFSGNiFBAk WOEdNIPmAGUwCMVaBTdvPMYiCLGzTyV3GFTyKCWbJT1zHwJnBWWpIRM3UDNkKPFsWDUjsrDJJGDdYARs HGWmTMI6JGCcGVHbGEd8ypUtuJZuUcl1Mh5IiSccDBV8Ql3KpzQmRWSrZMNQRi6Mv842EGXeYETHEft+ HralyTUuaLsfCKCZPnNxMqMJICDBX8F= ID Date Data Source [id number] 04/06/2019 10:40:50 AM [facility] Value Range Interpretation Code Description Data [place] rce(s) Supporting Document(s) Fibrin D-dimer FEU [Mass/volume] in Platelet poor plas ma by Immunoassay 1.21 ug/mL{FEU} <0.50 H [facility] ID Date Data Source [id number] 04/06/2019 10:40:50 AM [facility] Value Range Interpretation Code Description Data [place] rce(s) Supporting Document(s) Prothrombin time (PT) 15.7 s 12.5-14.9 H [facility] INR in Platelet poor plasma by Coagulation assay 1.20 [facility] Routine intensity oral anticoagulation I NR is typically 2.0-3.0. Target INR must be clinically individualized. ID Date Data Source [id number] 04/06/2019 10:42:25 AM [facility] Value Range Interpretation Code Description Data Cheyenne rce(s) Supporting Document(s) Fibrinogen [Mass/volume] in Platelet poor plasma by Coagulat ion assay 662 mg/dl 190-450 H [facility] ID Date Data Source [id number] 04/06/2019 10:44:30 AM [facility] Value Range Interpretation Code Description Data Cheyenne rce(s) Supporting Document(s) Phosphate [Mass/volume] in Serum or Plasma 3.8 mg/dL 2.5-4.5 [facility] ID Date Data Source [id number] 04/06/2019 10:44:30 AM [facility] Value Range Interpretation Code Description Data Cheyenne rce(s) Supporting Document(s) Bicarbonate [Moles/volume] in Serum 22 mmol/L 22-29 [facility] Chloride [Moles/volume] in Serum or Plasma 98 mmol/L 98-107 [facility] Creatinine [Mass/volume] in Serum or Plasma 2.24 mg/dL 0.50-0.90 [facility] Glucose [Mass/volume] in Serum or Plasma 184 mg/dL 70-140 H [facility] Potassium [Moles/volume] in Serum or Plasma 5.2 mmol/L 3.4-5.1 [facility] Sodium [Moles/volume] in Serum or Plasma 134 mmol/L 136-145 L [facility] Urea nitrogen [Mass/volume] in Serum or Plasma 56 mg/dL 8-23 [facility] Anion gap 3 in Serum or Plasma 14 mmol/L 8-15 [facility] Osmolality of Serum or Plasma by calculation 298 mosm/kg 275-300 [facility] Creatinine/Urea nitrogen [Mass Ratio] in Serum or Plasma 25 [facility] Calcium [Mass/volume] in Serum or Plasma 10.4 mg/dL 8.8-10.2 [facility] Glomerular filtration rate/1.73 sq M pre dicted among non-blacks [Volume Rate/Area] in Serum or Plasma by Creatinine-based formula (MDRD) 22 mL/min/1.73m2 >60 L [facility] Glomerular filtration rate/1.73 sq M pre dicted among blacks [Volume Rate/Area] in Serum or Plasma by Creatinine-based formula (MDRD) 26 mL/min/1.73m2 >60 L [facility] ID Date Data Source [id number] 04/06/2019 10:44:30 AM EST [facility] Name Value Range Interpretation Code Description Data Cheyenne rce(s) Supporting Document(s) Urate [Mass/volume] in Serum or Plasma 12.6 mg/dl 2.4-5.7 H [facility] ID Date Data Source [id number] 04/06/2019 11:13:26 AM [facility] Value Range Interpretation Code Description Data Cheyenne rce(s) Supporting Document(s) Reticulocytes/100 erythrocytes in Blood by Automated count 5.0 % 0.6-2.8 [facility] Reticulocytes [#/volume] in Blood 172.0 10*3/uL 26-122 [facility] Immature reticulocytes/Reticulocytes.total in Blood 0.35 % 0.26-0 .52 [facility] ID Date Data Source [id number] 04/06/2019 12:55:32 PM [facility] Value Range Interpretation Code Description Data [place]yenne rce(s) Supporting Document(s) Cobalamin (Vitamin B12) [Mass/volume] in Serum or Plasma 1491 pg/ml 2 11-946 [facility] ID Date Data Source [id number] 04/06/2019 12:55:32 PM [facility] Value Range Interpretation Code Description Data [place]yenne rce(s) Supporting Document(s) Thyrotropin [Units/volume] in Serum or Plasma 7.080 u[IU]/mL 0.270-4. 200 [facility] ID Date Data Source [id number] 04/06/2019 12:55:32 PM [facility] Value Range Interpretation Code Description Data [place] rce(s) Supporting Document(s) Ferritin [Mass/volume] in Serum or Plasma 690 ng/ml 13-150 [facility] ID Date Data Source [id number] 04/06/2019 12:55:32 PM [facility] Value Range Interpretation Code Description Data [place] rce(s) Supporting Document(s) Natriuretic peptide.B prohormone N-Terminal [Mass/volu me] in Serum or Plasma 1067 pg/mL <125 [facility] ID Date Data Source [id number] 04/06/2019 01:00:28 PM [facility] Value Range Interpretation Code Description Data [place]yenne rce(s) Supporting Document(s) Lactate dehydrogenase [Enzymatic activit y/volume] in Serum or Plasma by Lactate to pyruvate reaction 676 U/L 122-214 H [facility] ID Date Data Source [id number] 04/06/2019 04:03:43 PM [facility] Name Value Range Interpretation Code Description Data [place]yenne rce(s) Supporting Document(s) Haptoglobin [Mass/volume] in Serum or Plasma 190 mg/dl 30-200 [facility] ID Date Data Source [id number] 04/06/2019 08:42:00 AM [facility] Name Value Range Interpretation Code Description Data [place] rce(s) Supporting Document(s) [facility] [id number] [file] [id number] ID Date Data Source [id number] 04/06/2019 07:48:44 AM [facility] Name Value Range Interpretation Code Description Data [place]yenne rce(s) Supporting Document(s) Glucose [Mass/volume] in Capillary blood by Glucometer 161 mg/dL 70- 140 [facility] ID Date Data Source [id number] 04/06/2019 12:54:23 AM [facility] Name Value Range Interpretation Code Description Data [place]yenne rce(s) Supporting Document(s) Albumin [Mass/volume] in Serum or Plasma by Bromocresol green (BCG) dye binding method 4.0 g[facility] 3.5[facility].2 [facility] Bil[facility].total [Mass/volume] in Serum or Plasma 0.8 mg/dL <1.2 [facility] Calcium [Mass/volume] in Serum or Plasma 9.9 mg/dL 8.8-10.2 [facility] Chloride [Moles/volume] in Serum or Plasma 101 mmol/L 98-107 [facility] Creatinine [Mass/volume] in Serum or Plasma 2.23 mg/dL 0.50-0.90 [facility] Glucose [Mass/volume] in Serum or Plasma 170 mg/dL 70-140 [facility] Alkaline phosphatase [Enzymatic activity/volume] in Serum or Plasma 67 U/L 35-104 [facility] Potassium [Moles/volume] in Serum or Plasma 5.6 mmol/L 3.4-5.1 [facility] Protein [Mass/volume] in Serum or Plasma 7.4 g/dL 6.4-8.3 [facility] Sodium [Moles/volume] in Serum or Plasma 135 mmol/L 136-145 L [facility] Aspartate aminotransferase [Enzymatic activity/volume] in Serum or Plasma 19 U/L <32 [facility] Urea nitrogen [Mass/volume] in Serum or Plasma 58 mg/dL 8-23 [facility] Osmolality of Serum or Plasma by calculation 300 mosm/kg 275-300 [facility] Creatinine/Urea nitrogen [Mass Ratio] in Serum or Plasma 26 [facility] Bicarbonate [Moles/volume] in Serum 20 mmol/L 22-29 L [facility] Alanine aminotransferase [Enzymatic activity/volume] in Seru m or Plasma 16 U/L <33 [facility] Anion gap 3 in Serum or Plasma 14 mmol/L 8-15 [facility] Albumin/Globulin [Mass Ratio] in Serum or Plasma 1.2 [facility] Glomerular filtration rate/1.73 sq M pre dicted among non-blacks [Volume Rate/Area] in Serum or Plasma by Creatinine-based formula (MDRD) 22 mL/min/1.73m2 >60 L [facility] Glomerular filtration rate/1.73 sq M pre dicted among blacks [Volume Rate/Area] in Serum or Plasma by Creatinine-based formula (MDRD) 26 mL/min/1.73m2 >60 L [facility] ID Date Data Source [id number] 04/06/2019 03:11:40 AM [facility] Name Value Range Interpretation Code Description Data [place] rce(s) Supporting Document(s) Leukocytes [#/volume] in Blood by Automated count 23.3 10*3/uL 4-10 H [facility] Confirmed Erythrocytes [#/volume] in Blood by Automated count 3.40 10*6/uL 4.1- 5.3 L [facility] Hemoglobin [Mass/volume] in Blood 9.5 g/dL 11.5-15.5 L [facility] Hematocrit [Volume Fraction] of Blood by Automated count 30.4 % 3 6-45 L [facility] Erythrocyte mean corpuscular volume [Entitic volume] by Auto mated count 89.6 fL 80-96 [facility] Erythrocyte mean corpuscular hemoglobin [Entitic mass] by Automated count 28.0 pg 27-33 [facility] Erythrocyte mean corpuscular hemoglobin concentration [Mass/volume] by Automated count 31.3 g/dL 32.0-36.0 [facility] E[facility] distribution width [Ratio] by Automated count 22.8 % 11.5-14.5 H [facility] Platelets [#/volume] in Blood by Automated count 50 10*3/uL 150-400 L [facility] ConfirmedMANUAL PLAT RESULT Differential cell count method - Blood [facility] Neutrophils/100 leukocytes in Blood by Automated count 47 % [facility] Lymphocytes/100 leukocytes in Blood by Automated count 15 % [facility] Monocytes/100 leukocytes in Blood by Automated count 25 % [facility] Basophils/100 leukocytes in Blood by Automated count 1 % [facility] Neutrophils [#/volume] in Blood by Automated count 10.94 10*3/uL 1.8- 7.0 H [facility] Lymphocytes [#/volume] in Blood by Automated count 3.35 10*3/uL 1.2-4 .0 [facility] Monocytes [#/volume] in Blood by Automated count 5.59 10*3/uL 0-0.8 H [facility] Confirmed by 1521 Basophils [#/volume] in Blood by Automated count 0.23 10*3/uL 0-0.2 [facility] Nucleated erythrocytes/100 leukocytes [Ratio] in Blood by Automated count 22 /100{WBCs} 0-0 H [facility] Confirmed by 1521 Band form neutrophils/100 leukocytes in Blood by Manual count 2 % [facility] Myelocytes/100 leukocytes in Blood by Manual count 7 % [facility] Confirmed by 1521 Metamyelocytes/100 leukocytes in Blood by Manual count 3 % [facility] Band form neutrophils [#/volume] in Blood by Manual count 0.46 10*3 /uL 0-0.6 [facility] Myelocytes [#/volume] in Blood by Manual count 1.57 10*3/uL 0-0 H [facility] Metamyelocytes [#/volume] in Blood by Manual count 0.66 10*3/uL 0-0 [facility] Anisocytosis [Presence] in Blood by Light microscopy [facility] Hypochromia [Presence] in Blood by Light microscopy [facility] Poikilocytosis [Presence] in Blood by Light microscopy [facility] Stomatocytes [Presence] in Blood by [facility] ID Date Data Source [id number] 04/21/2019 06:35:00 PM [facility] Hematopathology Report See Addendum Zeeshan w* Amended *Name: PATRICIA COTTON VMRN: [id number] Number: [id number] Date: 04/06/2019 00:00Received Date: 04/06/2019 14:04Physician(s): ZAFAR DIAZ BHASKARASpecimediane(s) ReceivedA: Bone Marrow Aspirate, [facility]; Received 1 clot and 6 aspirate smearsB: Bone Marrow Biopsy, [facility]; Received 1 biopsy and 6 touch prepsC: Blood; Received 4 PB smearsD: Bone Marrow, Flow Cytometry; Recieved 1 green top BM (1 EDTA toMolecular)Clinical [id number] female with leukocytosis, anemia, thrombocytopenia, fatigue,shortness of breath, and recent peripheral blood findings suspicious for amyeloid neoplasm DiagnosisA-B. 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 See comment.COMMENT: The peripheral blood shows leukocytosis with absoluteneutrophilia (11.8 K/uL), absolute monocytosis (3.1 K/uL), frequentdysplastic granulocytes and nucleated red blood cells, and rare blasts. The marrow is markedly hypercellular with trilineage dysplasia. 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 These findings supportthe above diagnosis.Pending studies include additional FISH testing to exclude the presence ofa BCR-ABL1 gene rearrangement, and a next-generation myeloid sequencingpanel.Lamar Stallings MD;Resident PathologistElectronically Signed By Radha Kaur M.D., Ph.D. AttendingPathologist 04/21/2019 18:35:48The attending pathologist named above attests that he/she has personallyreviewed the relevant preparation(s) for the specimen(s) and rendered thefinal diagnosis. Addendum 04/20/2019 ADDENDUM:Next-generation sequencing performed on this specimen by [facility] (MyeloidMolecular Profile; see JEFFREY molecular report [id number]) detects pathogenicalterations in the NF1 and TP53 genes. Within NF1, the alteration isc.7582C>T; p.Q2528* (nonsense) and occurs with an allele frequency of 45%. Within TP53, the alteration is c.681dupT; p.D228* (nonsense) and occurswith an allele frequency of 50%.Mutations in TP53 are associated with an adverse prognosis inmyelodysplastic syndromes, independent of IPSS-R category, age, and othergene mutations.Genes analyzed with no genomic alterations include ASXL1, BCOR, BRAF,CALR, CBL, CEBPA, CSF3R, DDX41, DNMT3A, ETNK1, ETV6, EZH2, GATA2, GNAS,GNB1, IDH1, IDH2, JAK2, KIT, KRAS, MPL, NPM1, NRAS, PDGFRA, PHF6, PPM1D,PTPN11, RAD21, RUNX1, SETBP1, SF3B1, SH2B3, SMC1A, SMC3, SRSF2, STAG2,STAT3, STAT5B, TET2, U2AF1, WT1, and ZRSR2.For additional discussion, see the full report from [facility] within theResults section of the patient's electronic medical record. Addendum Electronically Signed By: Radha Kaur M.D., Ph.D. 04/21/2019 18:29 Addendum 04/11/2019 ADDENDUM:FISH testing of this specimen (see [id number]) is negative for a t(9;22)BCR-ABL1 gene rearrangement, providing no evidence for chronic myeloidleukemia. Addendum Electronically Signed By: Radha Kaur M.D., Ph.D. 04/11/2019 17:22 Gross DescriptionThe specimen is received in two parts.Part A is received in formalin labeled with the patient's name "Patricia Cotton"and "[facility] BM ASP". It consists of a 1.4 x 1.0 x 0.8 cm aggregateof brown-red blood clot. Totally submitted in one cassette.Part B is received in formalin labeled with the patient's name "Patricia Cotton"and "[facility] BM BX". It consists of a 1.8 cm in length x 0.2 cm in diameterred cylindrical fragment of bone. Totally submitted in one cassettefollowing decalcification.DP/pmwMicroscopic DescriptionPERIPHERAL BLOOD: CBC performed at [facility] on 04/06/2019 (#[id number]) White blood cell *23.3 K/uL Red blood cell *3.4 M/uL Hemoglobin *9.5 g/dL Hematocrit *30.4 % Mean cell volume 89.6 fL Mean cell hemoglobin 28 pg Mean cell Hgb conc *31.3 g/dL Red cell dist width *22.8 % Platelet count *50 K/uLDifferential count (200 cells): 1.5 % Blasts 6 % Bhxvxkjxlp41.5 % Fljjobwrsbigen68.5 % Neutrophils 1 % Pghsrllna49 % Mxtslbrarzc79.5 % Monocytes--------100.0 %PERIPHERAL BLOOD SMEAR: Leukocytosis with absolute neutrophilia, absolutemonocytosis, frequent left-shifted granulocytes, and rare blasts. Mostgranulocytes are dysplastic with abnormally segmented nuclei,binucleation, and/or hypogranular cytoplasm. Many have markedly enlargednuclei. Moderate normocytic anemia with marked anisopoikilocytosisincluding elliptocytes, teardrop cells, macrocytes, microcytes, andfrequent nucleated red blood cells (11-12 per 100 leukocytes). Severethrombocytopenia with frequent large and bulbous platelets and a rarecirc ulating micromegakaryocyte.MARROW ASPIRATE:Aspirate smears show many hypercellular particles.Differential count (500 cells):67.2 % Erythroid precursors 4.2 % Blasts 2.8 % Gztiseruiiyja87.4 % Neutrophils and precursors 2.4 % Eosinophils and precursors 1 % Basophils and precursors 3.4 % Lymphocytes 4 % Monocytes 0.6 % Plasma cells--------100.0 %ERYTHROID ELEMENTS: Markedly increased in number with a shift toimmaturity and numerous dysplastic forms (irregular nuclear contours,nuclear lobation/budding, megaloblastoid change, bi- and multinucleation,nuclear/cytoplasmic dyssynchrony, karyorrhexis).MYELOID ELEMENTS: Marked relative decrease in number with a shift toimmaturity and decreased numbers of mature neutrophils. Exhibitdysplastic maturation (abnormal nuclear segmentation, hypogranularcytoplasm, megaloblastoid change, occasional bi- or multinucleated forms). Blasts are mildly increased.MEGAKARYOCYTES: Increased in number, with a mixture of morphologicallynormal forms and many dysplastic forms (monolobated or small andwidely- nuclei).MARROW BIOPSY SPECIMEN:The core biopsy contains 1.5 cm of evaluable marrow. Cellularity is80-90%. The core shows trilineage hype rplasia and dysplasia withespecially increased numbers of erythroid precursors. Mature segmentedneutrophils are relatively scarce.The touch imprint is adequate for interpretation and also shows trilineagedysplastic hematopoiesis.CLOT SECTION CELL BLOCK:The clot section shows many hypercellular particles with morphologicfindings similar to those of the core biopsy.IMMUNOHISTOCHEMISTRY/SPECIAL STAINS:A CD34 stain of the core biopsy highlights increased numbers of scatteredblasts comprising approximately 5% of marrow cellularity. An E-cadherinstain bhatia numerous clusters of erythroid precursors.An iron stain of a particulate aspirate smear shows increased storage andsideroblastic iron, and frequent ring sideroblasts (19% of erythroidprecursors).All stains were performed after flow cytometry had been completed. Stainswere necessary because flow cytometry does not report on the cellulararchitecture within formalin-fixed, paraffin-embedded specimens.MORPHOLOGY SUMMARY: Hypercellular bone marrow with trilineage dysplasia,marked erythroid hyperplasia, 5% blasts, and increased storage iron withfrequent ring sideroblasts. Peripheral blood with leukocytosis (23.3K/uL), absolute neutrophilia (11.8 K/uL) including numerous dysplasticneutrophils, absolute monocytosis (3.1 K/uL), 1.5% blasts, moderatenormocytic anemia with frequent nucleated red blood cells (11-12 per 100leukocytes), and severe thromb ocytopenia (50 K/uL).ANCILLARY STUDIES:Karyotype ([id number]):44,XX,-5,-7,add(17)(p11.2),dmin[19]/46,XX[1].FISH ([id number]): 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 ProceduresFlow C ytometry Date Ordered:04/06/2019 Status: Signed Out04/07/2019 InterpretationAcute Panel for Yury Iqbal [id number] 04/06/2019The following markers were assayed: CD45 (gate), CD1a, CD2, CD3, CD4, CD5,CD7, CD8, CD10, CD11b, CD13, CD14, CD15, CD19, CD20, CD25,CD33, CD34,CD38, CD41, CD56, CD57, CD64, CD71, CD117, CD123, [place], Lambda, andHLA-DR.Events: [id number]: 89%Flow Cytometry Differential (CD45/SSC)Lymphocyte [place]: 5%CD45 dim [place]: 2%Monocyte [place]: 8%Granulocyte [place]: 30%Nucleated/Erythroid [place]: 46%The lymphocyte gate showsB- Cells (CD19): 1%[place]/Lambda Ratio: 2.1T-Cells (CD3): 92%CD4/CD8 Ratio: 1.0NK Cells: 0%Results (expressed as % of LYMPHOCYTE gate):B-Cell Markers: [place] = 0.5, Lambda = 0.4, CD19 = 1, CD20 = 7, CD19/10 =0, CD19/CD5 = 0, CD38/CD20 = 1Light chain as % of B-Cells: CD19/[place] = 63, CD19/Lambda = 30T-Cell Markers: CD2 = 98, CD3 = 92, CD3/CD4 = 47, CD5 = 85, CD7 = 83,CD3/CD8 = 48, CD3/57 = 40NK Cell Markers: CD56 = 9, CD57 = 42Other Markers: CD10 = 0, CD38 = 21Results (e xpressed as % of BLAST gate):B-Cell Markers: [place] = 0.0, Lambda = 1.9, CD19 = 0, CD20 = 4, CD10 = 24,CD19/10 = 1T-Cell Markers: CD1a = 2, CD2 = 7, CD3 = 16, CD4 = 8, CD5 = 9, CD7 = 22,CD8 = 4, CD3/CD4 = 1, CD3/CD8 = 2Myeloid Markers: CD11b = 48, CD13 = 71, CD14 = 14, CD15 = 43, CD33 = 95,CD41 = 36, CD64 = 27, CD71 = 37, CD117 = 44Other Markers: CD25 = 26, CD34 = 61, CD38 = 75, CD56 = 5, CD57 = 1, CD123= 62, HLA-DR = 58Acute-Cytoplasmic Panel for [facility] [id number] following markers were assayed: CD45 (gate), TDT, cCD22, cCD79a, MPO,and cCD3.# events: [id number]: 91%Flow Cytometry Differential (CD45 dim/SSC):Lymphocyte [place]: 5%Blast [place]: 4%Monocyte [place]: 6%Granulocyte gate: 34%NRBC [place]: 12%Results (expressed as % of blast gate):T-cell Marker: cCD3 = 1B-cell Markers: cCD79a = 11, cCD22 = 4Myeloid Marker: MPO = 62Other Markers: TDT = 2Results-CommentsBlasts (CD34+/CD117+/dim CD45) comprise 1-2% of cells studied and show nodefinitive immunophenotypic aberrancies. Monocytes express maturemonocytic markers and are negative for CD56.Lymphocytes (moderate CD45, low side scatter) consist predominantly of Tcells with normal expression of elliott- T cell antigens and a normal CD4/II5bisan, an increased proportion of cytotoxic T cells, rare NK cells, andrare polyclonal B cells.Procedure Electronically Signed By:Radha Kaur M.D., Ph.D.04/08/2019 AmendmentsAmended: 04/21/2019 by Radha Kaur M.D., Ph.D.Reason: Typographical Error Corrected typo in the Peripheral Blood headerPrevious Signout Date: 04/08/2019This report may include one or more immunohistochemical stain/fluorochromeconjugated monoclonal antibody results that use analyte specific reagents.All positive and negative controls have been reviewed by the attendingpathologist and are satisfactory. The tests were developed and theirperformance characteristics determined by [facility] Pathology department.They have not been cleared or approved by the [place] Food and DrugAdministration. The FDA has determined that such clearance or approval isnot necessary. Name Value Range Interpretation Code Description Data [place] rce(s) Supporting Document(s) ID Date Data Source [id number] 04/19/2019 02:25:00 PM [facility] Molecular Diagnostics ReportName: PATRICIA COTTON VMRN: [id number] Number: [id number] Date: 04/06/2019 00:00Received Date: 04/08/2019 15:52Physician(s): ZAFAR DIAZ KRISHNA BCopy To:RADHA KAUR KSpecimen(s) ReceivedA: Bone Marrow - [facility] for NGS MyeloidTYPE OF STUDY: Myeloid Molecular ProfileCOMMENTS: A bone marrow sample for this patient was sent to [facility], [address] [place], [place] [id number] for analysis. Please see link forscanned external report.The report states in part: "Pathogenic alterations are DETECTED in the NF1 and TP53 genes. Genes analyzed with no genomic alterations by NGS: ASXL1, BCOR, BRAF,CALR, CBL, CEBPA, CSF3R, DDX41, DNMT3A, ETNK1, ETV6, EZH2, GATA2, GNAS,GNB1, IDH1, IDH2, JAK2, KIT, KRAS, MPL, NPM1, NRAS, PDGFRA, PHF6, PPM1D,PTPN11, RAD21, RUNX1, SETBP1, SF3B1, SH2B3, SMC1A, SMC3, SRSF2, STAG2,STAT3, STAT5B, TET2, U2AF1, WT1, and ZRSR2." See report for final results and interpretation.kadonay/ kgElectronically Signed By Yokasta alberto MD, PhD AttendingPathologist 04/19/2019 14:25:55Reported at [address] [place] [address]. Name Value Range Interpretation Code Description Data Cheyenne rce(s) Supporting Document(s) ID Date Data Source [id number] 04/08/2019 12:03:00 PM [facility] Cytogenetics Report See Addendum BelowNa me: PATRICIA COTTON VMRN: [id number] Number: [id number] Date: 04/06/2019 00:00Received Date: 04/06/2019 14:13Physician(s): ZAFAR DIAZ BHASKARASpecfrancheska(s) ReceivedA: Bone Marrow - Karyotype analysis and FISHClinical [id number]-[id number]-ahi female with leukocytosis, anemia, and thrombocytopenia,fatigue, shortness of breath, and recent peripheral blood findingssuspicious for a myeloid neoplasmTEST REQUESTED/PERFORMED: Karyotype Analysis and Fluorescence in situhybridization (FISH)Procedures/AddendaAddendum Date Complete: 04/11/2019 Date Reported: 04/11/2019 15:13 Addendum Diagnosis TEST REQUESTED/PERFORMED: Fluorescence in situ hybridization (FISH)FISH RESULTS: nuc dayday (ABL1,BCR)x2[190/200] INTERPRETATION: Negative for the BCR-ABL1 rearrangementThe fluorescence in situ hybridization (FISH) analysis showed a normalsignal pattern for BCR and ABL1, providing no evidence of a t(9;22). A concurrent Cytogenetic study showed monosomy 5, monosomy 7, additionalmaterial on 17p, and a double minute (chromosome analysis) and deletion of17p/ TP53 (FISH analysis) and was reported on 04/08/19. [facility] [id number].DATA:SPECIMEN TYPE: BONE MARROW CULTURE TYPE: 24 HOUR UNSTIMULATEDNUCLEI EVALUATED for ADDITIONAL FISH: 200ISCN Nomenclature: nuc dayday (ABL1,BCR)x2[190/200] COMMENTS:Interphase FISH was performed utilizing an LSI BCR/ABL1 ES probe from[employer] It is a combination, direct labeled dual colorextra signal system. In unrearranged cells, there should be 4 signals, 2green (chromosome 22) and 2 orange (chromosome 9). In Ph' positive cells,there are also 4 signals as follows: 1) one green (BCR), 2) one largeorange (ABL1) signal, 3) one fused yellow signal (BCR/ABL1) indicative ofthe 9;22 translocation, and 4) an extra small orange signal, which showsthe residual abl on chromosome 9. The fourth signal in Ph' positive cellsoccurs since the translocation splits the probe recognition site onchromosome 9 resulting in a portion being translocation to chromosome 22and a portion remaining on the original chromosome 9. Hybridization wascarried out as per the stated protocol and cells were counterstained withDAPI. There was no significant background or cross hybridization ofsignal. The laboratory validation data for this probe indicated 3% as thelower limit for sensitivity.The FISH study was negative for the BCR- ABL1 rearrangement in 100% ofnuclei examined. 95% of nuclei showed a normal signal pattern for BCR andABL1 (2 signals for each locus) and 5% of nuclei showed signal patternswith no known clinical significance.Note: This test was developed and its performance determined by theCytogenetics section of the Department of Clinical Pathology. Although thetest has not been cleared or approved by the U.S. Food and DrugAdministration (FDA), the FDA has determined that such approval is notnecessary. The test has been validated and authorized for clinical use by[facility] ([facility]). However, the procedure isconsidered investigational, and should not be used as the sole criteriafor diagnosis. Procedure Electronically Signed Yokasta Curran MD, PhD 04/11/2019 15:13 DiagnosisCYTOGENETIC RESULTS: 44,XX,-5,-7,add(17)(p11.2),dmin[19] 46,XX[1]FISH RESULTS: nuc dayday (TP53x1,D70T2u9)[71/100],(TP53x1,M17Q0y3)[100]INTERPRETATION: Monosomy 5, monosomy 7, hemizygosity for TP53 (71% ofnuclei) An abnormal female karyotype with loss of chromosomes 5 and 7, additionalmaterial on the short arm of chromosome 17, and a double minute wasobserved in nineteen of twenty metaphases analyzed. One metaphase waschromosomally normal. Fluorescence in situ hybridization (FISH) showed:71% of nuclei with deletion 17p; and 6% of nuclei with deletion of 17pplus with an extra signal for the 17 centromere. A recent chromosome analysis study ([id number]: peripheral blood) showedloss of chromosomes 5,7 and 17, a marker chromosome and a double minute.The current chromosome analysis showed better morphology and the markerchromosome has now been reclassified as "add(17)(p11.2)".A combination of monosomy 7, monosomy 5 and deletion 17p (hemizygosity forTP53) is associated with a poor prognosis in MDS and AML. Please correlatewith concurrent Hematopathology report ([id number]).Electronically Signed By Ramses Carl, Ph.D., [facility], Director ofCytogenetics 04/08/2019 12:03:46Gross DescriptionDATA:SPECIMEN TYPE: BONE MARROW CULTURE TYPE: 24 HOUR UNSTIMULATED METAPHASES COUNTED AND ANALYZED: 20 METAPHASES KARYOTYPED: 3BAND RESOLUTION: 400-450NUCLEI EVALUATED FOR FISH: 100ISCN NOMENCLATURE: 44,XX,-5,-7,add(17)(p11.2),dmin[19]/46,XX[1]nuc dayday (TP53x1,D16J3c0)[71/100],(TP53x1,E58I1n4)[100] COMMENTS: Fluorescence in situ hybridization (FISH) studies were performed toevaluate specifically for abnormalities of chromosome 17. The probe wasobtained from [employer], [employer]. Hybrid ization was carried out as per thestated protocol and cells were counterstained with DAPI. There was nosignificant background or cross hybridization of signal. The laboratoryvalidation data for this probe indicated 3% as the lower limit forsensitivity.The following probes were utilized:PROBE PROBE SITE COLOR OF SIGNALS CELLS EVALUATED RESULTS LSI p53/CEP 17(control) 17p13.1D17Z1 spectrum orange/redspectrum green 100 71% - 1 signal for 17p, 2 signals for CEP 17 6% - 1 signal for 17p, 3 signals for CEP 1723%- 2 signals each locus Note: These tests were developed and their performance determined by theCytogenetics section of the Department of Clinical Pathology. Althoughthe tests have not been cleared or approved by the U. S. Food and DrugAdministration (FDA), the FDA has determined that such approval is notnecessary. However, the procedure is considered investigational, andshould not be used as the sole criteria for diagnosis. Name Value Range Interpretation Code Description Data [facility](s) Supporting Document(s) ID Date Data Source [id number] 04/06/2019 12:53:45 AM [facility] Service Cmnt XXX-Imp : Microorganism XXX Cult : Polymerase chain reaction is NEGATIVE for Influenza A H1, H3 and 2009 H1 viruses, Influenza B virus, Respiratory syncytial virus, Human metapneumovirus, Parainfluenza virus 1, 2, 3 and 4, Adenovirus, Rhinovirus/Enterovirus, Coronavirus HKU1, NL63, OC43, and 229E, Bordetella pertussis, Mycoplasma pneumoniae and Chlamydia pneumoniae.This assay does not detect the 2019 Novel Coronavirus (2019-nCoV) Name Value Range Interpretation Code Description Data [facility](s) Supporting Document(s) ID Date Data Source [id number] 04/05/2019 09:20:26 AM [facility] Name Value Range Interpretation Code Description Data [facility](s) Supporting Document(s) Flow cytometry study [facility] ID Date Data Source [id number] 04/05/2019 01:15:00 PM [facility] Hematopathology Report See Addendum Zeeshan wName: PATRICIA COTTON VMRN: [id number] Number: [id number] Date: 04/03/2019 00:00Received Date: 04/04/2019 13:58Physician(s): PEDRO PABLO REECE SHAHANDEH [facility]) ReceivedA: Blood, Flow Cytometry; Received 2 green top PB (2 EDTA PB to Molecular)Clinical Olfqpbx44-cpjq-ozn female with leukocytosis, anemia, and thrombocytopenia DiagnosisPeripheral blood for flow cytometry: Leukoerythroblastic smear withabsolute neutrophilia (12.3 K/uL), absolute monocytosis (3.5 K/uL),frequent dysplastic and/or left-shifted granul ocytes, and a rare blast. Moderate to severe normocytic anemia and severe thrombocytopenia (49K/uL). No immunophenotypic evidence of non-Hodgkin lymphoma. Seecomment.COMMENT: The findings are highly suspicious for a myeloid neoplasm, andbone marrow examination is recommended for further characterization ofthis process. Cytogenetic studies are pending and the results will beincluded in an addendum when complete.Lamar Stallings MD;Resident PathologistElectronically Signed By Radha Kaur M.D., Ph.D. AttendingPathologist 04/05/2019 13:15:58The attending pathologist named above attests that he/she has personallyreviewed the relevant preparation(s) for the specimen(s) and rendered thefinal diagnosis. Addendum 04/08/2019 ADDENDUM:Cytogenetic analysis of this specimen (see [id number]) yielded the followingresult:Karyotype: 44,XX,-5,-7,-17,+mar,dmin[19]/46,XX[1].This karyotype is similar to that derived from the subsequent bone marrowbiopsy collected 04/06/2019 (see SH20-580 and [id number]). That karyotypeshowed better morphology, and the marker chromosome was reclassified as"add(17)(p11.2)". FISH studies of the latter karyotype also detecteddeletion 17p in 71% of nuclei, consistent with hemizygosity for the AK96qupp. Addendum Electronically Signed By: Radha Kaur M.D., Ph.D. 04/09/2019 17:09 Microscopic DescriptionPERIPHERAL BLOOD: CBC performed at [facility] on 04/03/2019 White blood cell *23.3 K/uL Red blood cell *2.71 M/uL Hemoglobin *7.4 g/dL Hematocrit *24.8 % Mean cell volume 91.5 fL Mean cell hemoglobin 27.3 pg Mean cell Hgb conc *29.8 g/dL Red cell dist width *22.1 % Platelet count *49 K/uLDifferential count (100 cells): 1 % Blasts 7 % Wfewxhcdyx54 % Uhvmngeojtezmb78 % Neutrophils 1 % Eosinophils 8 % Hmcfjormcyw14 % Monocytes--------100.0 %PERIPHERAL BLOOD SMEAR: Leukocytosis with absolute neutrophilia, absolutemonocytosis, frequent left-shifted granulocytes, and a rare blast. Manygranulocytes are dysplastic with abnormally segmented nuclei,binucleation, and/or hypogranular cytoplasm. Moderate to severe anemiawith marked anisopoikilocytosis including elliptocytes, teardrop cells,macrocytes, microcytes, and frequent nucleated red blood cells (12 per 100leukocytes). Severe thrombocytopenia. ProceduresFlow Cytometry Date Ordered:04/04/2019 Status: Signed Out04/05/2019 InterpretationAcute Panel for Yury Iqbal [id number] 04/03/2019The following markers were assayed: CD45 (gate), CD1a, CD2, CD3, CD4, CD5,CD7, CD8, CD10, CD11b, CD13, CD14, CD15, CD19, CD20, CD25,CD33, CD34,CD38, CD41, CD56, CD57, CD64, CD71, CD117, CD123, [place], Lambda, andHLA-DRMarielEvents: [id number]: 92%Flow cytometry differential (CD45/SSC)Lymphocyte [place]: 4%CD45 dim [place]: 2%Monocyte [place]: 12%Granulocyte [place]: 53%Nucleated/Erythroid [place]: 18%The lymphocyte gate showsB-Cells (CD19): 4%[place]/Lambda Ratio: 1.9T-Cells (CD3): 79%CD4/CD8 Ratio: 0.8NK Cells: 2%Results (expressed as % of LYMPHOCYTE gate):B-Cell Markers: [place] = 3.7, Lambda = 1.3, CD19 = 4, CD20 = 5, CD19/10 =0, CD19/CD5 = 1, CD38/CD20 = 2Light chain as % of B-Cells: CD19/[place] = 56, CD19/Lambda = 30T-Cell Markers: CD2 = 87, CD3 = 79, CD3/CD4 = 36, CD5 = 75, CD7 = 75,CD3/CD8 = 44, CD3/57 = 34NK Cell Markers: CD56 = 10, CD57 = 38Other Markers: CD10 = 2, CD38 = 30Results (expressed as % of BLAST gate):B-Cell Markers: [place] = 0.2, Lambda = 0.3, CD19 = 1, CD20 = 2, CD10 = 16,CD19/10 = 1T-Cell Markers: CD1a = 2, CD2 = 15, CD3 = 12, CD4 = 37, CD5 = 8, CD7 = 16,CD8 = 9, CD3/CD4 = 4, CD3/CD8 = 7Myeloid Markers: CD11b = 63, CD13 = 85, CD14 = 12, CD15 = 57, CD33 = 89,CD41 = 60, CD64 = 17, CD71 = 10, CD117 = 44Other Markers: CD25 = 53, CD34 = 72, CD38 = 70, CD56 = 3, CD57 = 8, CD123= 52, HLA-DR = 48Results-CommentsBlasts (dim CD45, moderate CD34 and CD117) comprise approximately 1% ofcells studied and express CD4 (dim), CD11b (moderate to bright), CD13(dim), CD15 (dim, subset), CD33 (moderate), CD41a (moderate), CD123(bright), and HLA-DR (moderate). They are negative for the remainingmarkers studied.An additional population of atypical cells lacking CD45 expression lieswithin the erythroid gate, of which separate subsets express CD34 andCD71. These may represent aberrant erythroid cells.Lymphocytes consist predominantly of T cells with normal expression ofpan-T cell antigens and a low- normal CD4/CD8 ratio, normal proportions ofNK and cytotoxic T cells, and polyclonal B cells.Procedure Electronically Signed By:Radha Kaur M.D., Ph.D.04/05/2019 This report may include one or more immunohistochemical stain/fluorochromeconjugated monoclonal antibody results that use analyte specific reagents.All positive and negative controls have been reviewed by the attendingpathologist and are satisfactory. The tests were developed and theirperformance characteristics determined by [facility] Pathology department .They have not been cleared or approved by the US Food and DrugAdministration. The FDA has determined that such clearance or approval isnot necessary. Name Value Range Interpretation Code Description Data [facility](s) Supporting Document(s) ID Date Data Source [id number] 04/07/2019 10:40:00 AM 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 One metaphase was chromosomally normal. The markerchromosome might be derived from chromosome 17. The FISH study wascanceled by Dr. Destiny Kaur. A complex karyotype with monosomy 5 and monosomy 7 is associated with appor prognosis in MDS and AML. FISH studies are needed to confirm deletionof TP53. Please correlate with concurrent Hematopathology report([id number]).Electronically Signed By Ramses Carl, Ph.D., FAC, Director ofCytogenetics 04/07/2019 10:40:14Gross DescriptionDATA: SPECIMEN TYPE: PERIPHERAL BLOOD CULTURE TYPE: 24 HOUR UNSTIMULATED METAPHASES COUNTED AND ANALYZED: 20 METAPHASES KARYOTYPED: 4BAND RESOLUTION: 400ISCN Nomenclature: 44,XX,-5,-7,-17,+mar,dmin[19]/46,XX[1] Name Value Range Interpretation Code Description Data [facility](s) Supporting Document(s) ID Date Data Source [id number] 03/31/2019 06:26:17 PM EST [facility] Name Value Range Interpretation Code Description Data [place] r[facility](s) Supporting Document(s) &PDF [facility] ABPFPi7uCdZNEuSm08/MKPgsVKCfy8AfNWddYVm2FFgnEIVxO1VszZvrKFpLULGyNdUGNXRTGZYHRH7y oRX [file] iqIoiqIoiqIoiqIoiqIoiqIoiqIoiqIoiqIoiqIoiq IoiqJ+R/3PfRh1sr9FFJ6xx7TrDHReUHxivkCcImsLZyD1IWWxt5FjSDkdSM8UAM8ai5CsEWkqYVFsm3 CxGJm5KI0CJBDbCXEuJ1CieEXxI4KXKy0XMCr0B7auHEzyRg7MdZXxBKGwGLqmDR9Gd285LDy7WK2CFQ TnSOQpWOBTUpVfWEFsYeNdPCMeNAZAFc9ZAjYdG0bR ZjzyL3LvVTndQ4vkFmTxFIPuQGZSDMsuWVQaU5hzHyPhDYZkUTJJVh8SFqCzR7D8iDbLhJE5QVG0CX2H DnMLLlGzDRp5J7F1aDNkZ7Y6zSwDjQR4FU9TLS0CRSCmYY2+ZlKgY1DCENrRWSR7BB3YzSTqTM7NgRCP U6EfeDPqWq0bHQXfaXkrjJn+LkPvD9RMKLMXSEB1MC 7LuAUeEA6JrGMZT5LavGHdHy5zZHawEsXvQF6uCH5+MK5JTEUHFuQKOlVvQHpvJVidWKTdRIu8P5E6KG TrX3JVL4S4L8p4b6esqo8+QW8VYIAgQ8QRAAXNIkPgGWmvQLqnXDBiBSz2Q3D9ZCQzT1MHJ4dyX6z6FI 4+PiANCiAgID4+DQo+Ed9WBU7mr5ElEHwxSfJzCN3o wt5EWHmtIRWsE9TiHIXuSSqcA1JdcSnhUE8XFOjwADqvDU0NIRFjPNA4KX9+WUvaxVMcQI0EAxv/eHBh Q5ulxNFbHVnehn9h17c/MsTuKJ1rBvOLNM3fU6TbmQo1gwQLok9KM9hbWbjhTe3+EAshMVw8PzwqaD1e qOKjeDz9kSL2lv1eTe7gJEelTZwapV4tjrQ3dK1zJZ EbLpT7aeF9eVD8BX5jNj8DUOHbEGgtAXB4QcHWEMeprZ6jTdRyWa8caEZ5uLaoJ4b6gp97Sx0oinooGO m9AY2pRx2kAg3zBJDbp5euvCV4QE2fHex+YWphCACrDD0oLCF6VyBJRp2BFZX1F1t2zO9juFS6ZL7TFp AgICAgICAgICAgICAgICAgICAgICAgICAgICAgICAg ICAgICAgICAgICAgICAgICAgICAgICAgICAgICAgICAgICAgICAgICAgICAgICAgICAgICAgICAgICAg ICAgICAgICANCiAgICAgICAgICAgICAgICAgICAgICAgICAgICAgICAgICAgICAgICAgICAgICAgICAg ICAgICAgICAgICAgICAgICAgICAgICAgICAgICAgIC AgICAgICAgICAgICAgICAgICANCiAgICAgICAgICAgICAgICAgICAgICAgICAgICAgICAgICAgICAgIC AgICAgICAgICAgICAgICAgICAgICAgICAgICAgICAgICAgICAgICAgICAgICAgICAgICAgICAgICAgIC ANCiAgICAgICAgICAgICAgICAgICAgICAgICAgICAg ICAgICAgICAgICAgICAgICAgICAgICAgICAgICAgICAgICAgICAgICAgICAgICAgICAgICAgICAgICAg ICAgICAgICAgICANCiAgICAgICAgICAgICAgICAgICAgICAgICAgICAgICAgICAgICAgICAgICAgICAg ICAgICAgICAgICAgICAgICAgICAgICAgICAgICAgIC AgICAgICAgICAgICAgICAgICAgICANCiAgICAgICAgICAgICAgICAgICAgICAgICAgICAgICAgICAgIC AgICAgICAgICAgICAgICAgICAgICAgICAgICAgICAgICAgICAgICAgICAgICAgICAgICAgICAgICAgIC AgICANCiAgICAgICAgICAgICAgICAgICAgICAgICAg ICAgICAgICAgICAgICAgICAgICAgICAgICAgICAgICAgICAgICAgICAgICAgICAgICAgICAgICAgICAg ICAgICAgICAgICAgICANCiAgICAgICAgICAgICAgICAgICAgICAgICAgICAgICAgICAgICAgICAgICAg ICAgICAgICAgICAgICAgICAgICAgICAgICAgICAgIC AgICAgICAgICAgICAgICAgICAgICAgICANCiAgICAgICAgICAgICAgICAgICAgICAgICAgICAgICAgIC AgICAgICAgICAgICAgICAgICAgICAgICAgICAgICAgICAgICAgICAgICAgICAgICAgICAgICAgICAgIC AgICAgICANCiAgICAgICAgICAgICAgICAgICAgICAg ICAgICAgICAgICAgICAgICAgICAgICAgICAgICAgICAgICAgICAgICAgICAgICAgICAgICAgICAgICAg ICAgICAgICAgICAgICAgICANCjw/vSMlA7xhpINbnzX7A4xvOs3DOd7AXU3hq5ZcDIHdEJpdazOfMvzD KyYmRUEvFkqXBlp1EMtcNC6NfZOnE4OtK3SvYMyiLY 5OBFWiZIFjtJRtVZTgTHQwUhN9AIHoLMfaTA2UqVRsLJzmDUBiDEInBfErQYWgEP9EWFIuL202iiIkMr 3HLs5VGhBtZG4mry2YQGuqVRNcQebBCay6AIgkUC4BjMYjJ2XefSHyj2cBMlBzJ9RWVRI1IZZfQz8LWB YeClAxRSNtXYcdSQ7bBYEnRPXUeCmhplO1NW4QKG4a dhZiOR3SFrYkFe6uPa2TCnRnD2AwF0ZkICFtPAZPZNliGV7AEVUhKSF1YVNiEpKwSFJLGeNlT58hSJ5I I4Hva66tVjK1ZZHjIyOrYGevIN82rGludrJxhSRviCivND2QWd6+DQplbmRvYmoNCnhyZWYNCjAgMTkN RqHrCUHrAHRwASEiLkK7JwBtJl1ZZKOqZUPlJQDhKy NeKDNxOWKvCAosUSIfJWZ6KtBlVLGiSDXuZC9UBhGcIAIyIKY7EAIyGTFkAPDeff2HPIOhVSLsKOX7DZ PmPGLnJGVmBDcuXHWvXWYbVxizZMHxUJMeVL9ZVfMcBXEfGMI1IJwhIPMhXXYuzf0XDXToIZAnQkAuMY UqKUItKCAmNEuySQCbDBQwVxMkQQHjGRRzCI4PLzPg HADkLXLlWKUbPTZyLHMuof2EKDHhRWBcAGL5SwImZJLiQVNvWNmaFOBkETK2Unw5CXHgIYCcSD7CIxIr JORrKOI4UjnqNKAnNEQwse2VMJXqYHJnZQjsHETkFBPnYOFaVQlzATFmCVX6JQA1KYAfECJsIG0YQaMw OABaEYU1GKIrZVPvJSTcph8MUIQtZTDpIBbbGAStWP UwROIyNIygARLcIVT4BKCsIMFkHFRjFS6TZbQlENGaMOV7AHvmTXEoBBAknk1HoFYwkRstwf4DPHjMQv 9PjIsqSYL0XPwrWw8htPJnJCAjRORRIg9PlpClSTNeJIRFPNszWBAvEGG8TmO2PIRpDok8UInnHBprIb P8WwPxFBCfITB7LKXpTtL1ALl8XVMpY3KfEMCmBMT8 OGViNTZjNjBhMmUxZTYwNWM+MR9cCFc+Ys1Es2PiprG9oeDuCQuuDxb4TE6XGZFVP1XLVl== Procedure Social History Code Duration Value Status Description Data Source(s ) Alcohol intake 03/14/2020 12:00:00 AM EST Ex-drinker (finding) comp leted Ex- drinker (finding) [facility] Tobacco use and exposure 03/14/2020 12:00:00 AM EST Never used co mpleted Never used [facility] Smoking 03/14/2020 12:00:00 AM EST Former smoker completed Former smoker [facility] Smoking 12/23/2019 12:00:00 AM EST Former Smoker completed Former Smoker eCW1 ([facility]) Smoking 12/23/2019 12:00:00 AM EST Former Smoker completed Former Smoker eCW1 ([facility]) Smoking 12/23/2019 12:00:00 AM EST Former Smoker completed Former Smoker eCW1 ([facility]) Smoking 12/23/2019 12:00:00 AM EST Former Smoker completed Former Smoker eCW1 ([facility]) Smoking 12/23/2019 12:00:00 AM EST Former Smoker completed Former Smoker eCW1 ([facility]) Smoking 12/23/2019 12:00:00 AM EST Former Smoker completed Former Smoker eCW1 ([facility]) Alcohol intake 12/21/2019 12:00:00 AM EST No completed [facility] Cigarette pack-years 12/21/2019 12:00:00 AM EST UNK completed [facility] Cigarettes smoked current (pack per day) - Reported 12/21/19 12:00:00 AM EST UNK completed [facility] Smoking 12/21/2019 12:00:00 AM EST Current some day smoker com pleted Current some day smoker [facility] Smoking 06/24/2019 12:00:00 AM EDT Former Smoker completed Former Smoker eCW1 ([facility]) Smoking 04/05/2019 12:00:00 AM EST Unknown if ever smoked comp leted Unknown if ever smoked [facility] Vital Signs ID Date Data Source UNK Name Value Range Interpretation Code Description Data Source(s) Diastolic blood pressure 72 mm[Hg] 72 mm[Hg] eCW1 ([facility]) Systolic blood pressure 138 mm[Hg] 138 mm[Hg] e CW1 ([facility]) Body temperature 98.3 [degF] 98.3 [degF] eCW1 ( [facility]) Respiratory rate 18 /min 18 /min eCW1 ([facility]) Heart rate 83 /min 83 /min eCW1 ([facility]) Body mass index (BMI) [Ratio] 26.61 kg/m2 26.61 kg/m2 W1 ([facility]) Body height 68 [in_i] 68 [in_i] eCW1 ([facility]) Body weight 175 [lb_av] 175 [lb_av] eCW1 ([facility]) Diastolic blood pressure 58 mm[Hg] 58 mm[Hg] [facility] Systolic blood pressure 120 mm[Hg] 120 mm[Hg] [facility] Oxygen saturation in Arterial blood by Pulse oximetry 98 % 98 % [facility] Body mass index (BMI) [Ratio] 27.25 kg/m2 27.25 kg/m2 [facility] Body weight 78.926 kg 78.926 kg [facility] Body height 170.2 cm 170.2 cm [facility] Heart rate 66 /min 66 /min [facility] Diastolic blood pressure 60 mm[Hg] 60 mm[Hg] eCW1 ([facility]) Systolic blood pressure 134 mm[Hg] 134 mm[Hg] e CW1 ([facility]) Body temperature 98.7 [degF] 98.7 [degF] eCW1 ( [facility]) Respiratory rate 20 /min 20 /min eCW1 ([facility]) Heart rate 88 /min 88 /min eCW1 ([facility]) Body mass index (BMI) [Ratio] 27.61 kg/m2 27.61 kg/m2 eCW1 ([facility]) Body height 68 [in_us] 68 [in_us] eCW1 ([facility]) Body weight Measured 181.6 [lb_av] 181.6 [lb_av ] eCW1 ([facility]) Diastolic blood pressure 80 mm[Hg] 80 mm[Hg] eCW1 ([facility]) Systolic blood pressure 130 mm[Hg] 130 mm[Hg] e CW1 ([facility]) Body temperature 97.4 [degF] 97.4 [degF] eCW1 ( [facility]) Respiratory rate 20 /min 20 /min eCW1 ([facility]) Heart rate 88 /min 88 /min eCW1 ([facility]) Body mass index (BMI) [Ratio] 27.21 kg/m2 27.21 kg/m2 eCW1 ([facility]) Body height 68 [in_us] 68 [in_us] eCW1 ([facility]) Body weight Measured 179 [lb_av] 179 [lb_av] eC W1 ([facility]) Diastolic blood pressure 72 mm[Hg] 72 mm[Hg] eCW1 ([facility]) Systolic blood pressure 122 mm[Hg] 122 mm[Hg] e CW1 ([facility]) Body temperature 97.9 [degF] 97.9 [degF] eCW1 ( [facility]) Respiratory rate 20 /min 20 /min eCW1 ([facility]) Heart rate 93 /min 93 /min eCW1 ([facility]) Body mass index (BMI) [Ratio] 28.49 kg/m2 28.49 kg/m2 eCW1 ([facility]) Body height 68 [in_us] 68 [in_us] eCW1 ([facility]) Body weight Measured 187.4 [lb_av] 187.4 [lb_av ] eCW1 ([facility]) Diastolic blood pressure 58 mm[Hg] 58 mm[Hg] eCW1 ([facility]) Systolic blood pressure 90 mm[Hg] 90 mm[Hg] e CW1 ([facility]) Body temperature 97.7 [degF] 97.7 [degF] eCW1 ( [facility]) Respiratory rate 20 /min 20 /min eCW1 ([facility]) Heart rate 90 /min 90 /min eCW1 ([facility]) Body mass index (BMI) [Ratio] 29.19 kg/m2 29.19 kg/m2 eCW1 ([facility]) Body height 68 [in_us] 68 [in_us] eCW1 ([facility]) Body weight Measured 192 [lb_av] 192 [lb_av] eC W1 ([facility]) ID Date Data Source [id number] 03/31/2020 08:37:32 AM [facility] Name Value Range Interpretation Code Description Data Source(s) WEIGHT RECORDED 193.56 lb 193.56 lb [facility] WEIGHT RECORDED 185.4 lb 185.4 lb [facility] Body height Measured 64.17 in 64.17 in [facility] WEIGHT RECORDED 183.8 lb 183.8 lb [facility] WEIGHT RECORDED 170.2 lb 170.2 lb [facility] Body height Measured 64.17 in 64.17 in [facility] TRANSFER FROM [facility] ID Date Data Source [id number] 04/21/2019 06:36:07 PM [facility] Name Value Range Interpretation Code Description Data Source(s) WEIGHT RECORDED 185.4 lb 185.4 lb [facility] Patient Treatment Plan of Care Planned Activity Planned Date Details Description Data Source (s) carvedilol 12.5 MG Oral Tablet 03/18/2020 12:00:00 AM [facility] Levofloxacin 500 MG Oral Tablet 03/18/2020 12:00:00 AM [facility] Basaglar KwikPen 100 UNIT/ML Subcutaneou s Solution Pen-injector (insulin glargine) 03/16/2020 12:00:[address] [facility] maalox/lidocaine/diphenhydrAMINE 1:1:1 SWISH & SWAL or al suspension 03/16/2020 12:00:00 AM [facility] ospital pantoprazole 40 MG Delayed Release Oral Tablet 03/16/2020 12:00:00 AM [facility] Lidocaine 5 % External Patch (LIDODERM) 03/16/2020 12:00:00 AM [facility] Fluconazole 200 MG Oral Tablet 03/16/2020 12:00:00 AM [facility] maalox/lidocaine/diphenhydrAMINE 1:1:1 SWISH & SWAL or al suspension 03/15/2020 12:00:00 AM [facility] ospital Acyclovir 200 MG Oral Capsule 03/15/2020 12:00:00 AM [facility] Tiotropium [place] Monohydrate 2.5 MCG/A CT Inhalation Aerosol Solution (SPIRIVA RESPIMAT) 03/15/2020 12:00:[address] [facility] sennosides, LONG-TERM 8.6 MG Oral Tablet 03/15/2020 12:00:00 AM [facility] eltrombopag 25 MG Oral Tablet 03/15/2020 12:00:00 AM [facility] 3 ML heparin sodium, porcine 100 UNT/ML Prefilled Syri nge 03/11/2020 09:15:16 AM [facility] ospital heparin sodium, porcine 10 UNT/ML Injectable Solution 03/11/2020 09:15:16 AM [facility]ital sodium chloride (preservative free) 0.9 % flush 10 mL 03/11/2020 09:15:16 AM [facility] NaCl infusion 0.9 % 03/11/2020 09:15:16 AM [facility] heparin sodium, porcine 10 UNT/ML Injectable Solution 03/10/2020 11:13:25 AM [facility] ospital NaCl infusion 0.9 % 03/10/2020 11:13:25 AM [facility] dextrose 50 % IV solution 25 mL 03/06/2020 10:54:02 PM [facility] Glucagon 1 MG Injection 03/06/2020 10:54:02 PM [facility] Glucose 0.417 MG/MG Oral Gel 03/06/2020 10:54:02 PM [facility] INQOVI 35-100 MG TABS 12/14/2019 12:00:00 AM EDT [facility] Pravastatin Sodium 40 MG Oral Tablet 12/06/2019 12:00:00 AM EDT [facility] 7 ACTUAT umeclidinium 0.0625 MG/ACTUAT Dry Powder Inha ler [Incruse] 11/28/2019 12:00:00 AM EDT [facility] 24 HR Isosorbide Mononitrate 60 MG Extended Release Or al Tablet 06/10/2019 12:00:00 AM EDT eCW1 (Formerly [facility]) 24 HR Isosorbide Mononitrate 60 MG Extended Release Or al Tablet 06/10/2019 12:00:00 AM EDT eCW1 (Formerly [facility]) 24 HR Isosorbide Mononitrate 60 MG Extended Release Or al Tablet 06/10/2019 12:00:00 AM EDT eCW1 (Formerly [facility]) 24 HR Isosorbide Mononitrate 60 MG Extended Release Or al Tablet 06/10/2019 12:00:00 AM EDT eCW1 (Formerly [facility]) 24 HR Isosorbide Mononitrate 60 MG Extended Release Or al Tablet 06/10/2019 12:00:00 AM EDT eCW1 (Formerly [facility]) 24 HR Isosorbide Mononitrate 60 MG Extended Release Or al Tablet 06/10/2019 12:00:00 AM EDT eCW1 ([facility]ly [facility]) 24 HR Isosorbide Mononitrate 60 MG Extended Release Or al Tablet 06/10/2019 12:00:00 AM EDT eCW1 ([facility]) Wheelchair - 05/27/2019 12:00:00 AM EDT e CW1 ([facility]) Shower Chair without wheels 05/27/2019 12:00:00 AM EDT eCW1 ([facility]) Wheelchair - 05/27/2019 12:00:00 AM EDT e CW1 ([facility]) Shower Chair without wheels 05/27/2019 12:00:00 AM EDT eCW1 ([facility]) carbamide peroxide 65 MG/ML Otic Solution [Debrox] 05/16/2019 12 :00:00 AM EDT eCW1 ([facility]) Sodium Chloride 0.111 MEQ/ML Nasal [place] 05/12/2019 12:00:00 AM EDT eCW1 ([facility]) Amoxicillin 875 MG / Clavulanate 125 MG Oral Tablet 04/22/19 12:00:00 AM EST eCW1 ([facility]) Tiotropium [place] Monohydrate 2.5 MCG/A CT Inhalation Aerosol Solution (SPIRIVA RESPIMAT) 04/10/2019 12:00:[address] [facility] 24 HR Isosorbide Mononitrate 60 MG Extended Release Or al Tablet 04/10/2019 12:00:00 AM [facility] ospital calcium polycarbophil 625 MG Oral Tablet 04/10/2019 12:00:00 AM [facility] Furosemide 40 MG Oral Tablet 04/10/2019 12:00:00 AM [facility] Amlodipine 5 MG Oral Tablet 04/10/2019 12:00:00 AM [facility] Allopurinol 100 MG Oral Tablet 04/10/2019 12:00:00 AM [facility] insulin lispro 100 UNIT/ML SC injection MEDIUM DOSE EA TING INSULIN patients 04/09/2019 12:00:00 AM [facility], LONG-TERM 8.6 MG Oral Tablet 04/09/2019 12:00:00 AM [facility] Pravastatin Sodium 40 MG Oral Tablet 04/09/2019 12:00:00 AM [facility] Insulin Glargine 100 UNT/ML Injectable Solution 04/09/2019 12:00:00 AM [facility] carvedilol 12.5 MG Oral Tablet 04/09/2019 12:00:00 AM [facility] albuterol (PROVENTIL HFA;VENTOLIN HFA) inhaler 2 puff 04/05/2019 11:50:41 PM [facility] ospital dextrose 50 % IV solution 25 mL 04/05/2019 11:46:06 PM [facility] Glucagon 1 MG Injection 04/05/2019 11:46:06 PM [facility] Glucose 0.4 MG/MG Oral Gel 04/05/2019 11:46:06 PM [facility] Spironolactone 50 MG Oral Tablet 04/16/2016 12:00:00 AM [facility] Acetaminophen 500 MG Oral Tablet [facility] Inqovi 35-100 MG Oral Tablet (Decitabine-Cedazuridine) [facility] Acyclovir 400 MG Oral Tablet [facility] Basaglar KwikPen 100 UNIT/ML Subcutaneou s Solution Pen-injector (insulin glargine) [facility] Furosemide 40 MG Oral Tablet [facility] clopidogrel 75 MG Oral Tablet [facility] albuterol (PROVENTIL HFA;VENTOLIN HFA) 108 (90 BASE) MCG/ACT inhale r [facility] Hydralazine Hydrochloride 100 MG Oral Tablet [facility] Aspirin 81 MG Delayed Release Oral Tablet [facility]
--- NOTE | 2020-04-09 23:04 | REPVR ---
PROCEDURE INFORMATION: Exam: CT Head Without Contrast Exam date and time: 04/09/2020 10:50 PM Age: 65 years old Clinical indication: Syncope and collapse TECHNIQUE: Imaging protocol: Computed tomography of the head without contrast. Radiation optimization: All CT scans at this facility use at least one of these dose optimization techniques: automated exposure control; mA and/or kV adjustment per patient size (includes targeted exams where dose is matched to clinical indication); or iterative reconstruction. COMPARISON: 1. CT Head without contrast 2020-03-24 07:[address] Head without contrast 2015-11-02 17:15 FINDINGS: Brain: Diffuse mild cerebral age related volume loss. Mild patchy low attenuation in the white matter compatible with mild chronic small vessel ischemic disease. No midline shift, mass, fluid collection, or evidence of hemorrhage. Cerebral ventricles: Ventricular enlargement proportional to volume loss. Bones/joints: Unremarkable. No acute fracture. Paranasal sinuses: Visualized sinuses are unremarkable. No fluid levels. Mastoid air cells: Visualized mastoid air cells are well aerated. Soft tissues: Unremarkable. IMPRESSION: Mild involutional changes, no acute intracranial abnormality. Electronically signed by: Juwan Reza On 04/09/2020 23:04:53 PM
--- NOTE | 2020-04-09 23:32 | REPVR ---
PROCEDURE INFORMATION: Exam: XR Chest, 1 View Exam date and time: 04/09/2020 11:14 PM Age: 65 years old Clinical indication: Other: Syncope; Additional info: Syncope/near-syncope TECHNIQUE: Imaging protocol: XR of the chest Views: 1 view. COMPARISON: 1. [place] PORTABLE CHEST X-RAY 2020-03-24 07:32 2. [place] Chest, 1 view 2020-03-06 13:55 3. [place] PORTABLE CHEST X-RAY 2019-06-24 16:50 FINDINGS: Tubes, catheters and devices: AICD/Pacemaker device is present, and its leads are in appropriate position. Right chest Port-A-Cath tip in the low SVC. Lungs: Pulmonary artery enlargement. Pleural spaces: Trace bilateral pleural effusions. Heart/Mediastinum: Cardiac enlargement. Bones/joints: Unremarkable. IMPRESSION: 1. Cardiac enlargement. 2. Trace bilateral pleural effusions. Electronically signed by: Juwan Reza On 04/09/2020 23:32:25 PM
[2020-04-10 00:14] LABS: INR 1.42; PROTHROMBIN TIME 17.7 SECONDS (12.5-14.3)
[2020-04-10 00:26] LABS: HEMATOCRIT 29.2 % (36.0-47.0); HEMOGLOBIN 9.3 g/dl (12.0-15.5); MEAN CORPUSCULAR HEMOGLOBIN 27.3 pg (27.0-33.0); MEAN CORPUSCULAR HGB CONC 31.8 g/dl (32.0-36.5); MEAN CORPUSCULAR VOLUME 85.6 fl (80.0-96.0); RED BLOOD COUNT 3.41 10^6/uL (4.00-5.40)
[2020-04-10 00:33] LABS: WHITE BLOOD COUNT 3.2 10^3/uL (4.0-10.0)
[2020-04-10 00:34] LABS: PLATELET COUNT, AUTOMATED 24 10^3/uL (150-450)
[2020-04-10 00:39] LABS: BLOOD UREA NITROGEN 35 MG/DL (7-18); CALCIUM LEVEL 8.3 MG/DL (8.8-10.2); CARBON DIOXIDE LEVEL 29 MEQ/L (21-32); CHLORIDE LEVEL 107 MEQ/L (98-107); CK-MB VALUE MASS < 1.0 NG/ML (<3.6); CPK CREATINE PHOSPHOKINASE 44 U/L (26-192); CREATININE FOR GFR 1.61 MG/DL (0.55-1.30); FREE T4 1.15 NG/DL (0.76-1.46); GLOMERULAR FILTRATION RATE 34.2 (>45); GLUCOSE, FASTING 130 MG/DL (70-100); MAGNESIUM LEVEL 2.2 MG/DL (1.8-2.4); MB/CK RELATIVE INDEX 2.27 (< OR =4); POTASSIUM SERUM 3.2 MEQ/L (3.5-5.1); SODIUM LEVEL 145 MEQ/L (136-145)
[2020-04-10 02:05] LABS: RSV AMPLIFICATION NEGATIVE (NEGATIVE)
[2020-04-10] MEDS ORDERED: SPIR100T3 PO (02:22)
[2020-04-10] MEDS ORDERED: LIDO5TD TOP (02:23)
--- OUTSIDE RECORDS SUMMARY | 2020-04-10 02:43 | CCD ---
Author Author [facility] Organization [facility] Address Unknown Phone Unavailable Care Team Providers Care Broadband Installer Name Role Phone Pedro Pablo Reece MD Unavailable Unavailable Pedro Pablo Reece MD Unavailable Unavailable Pedro Pablo Reece MD Unavailable Unavailable Pedro Pbalo Reece MD Unavailable Unavailable Pedro Pablo Reece [...] Unavailable Unavailable Blair HUANG MD Unavailable Unavailable Bliar HUANG MD Unavailable Unavailable Blair HUANG MD [...] Matty Leon MD Unavailable Unavailable Deepali, Matty Leno MD Unavailable Unavailable DeepaliMatty MD Unavailable Unavailable [...] MD Unavailable Unavailable DeepaliMatty MD Unavailable Unavailable DeepaliaMtty MD Unavailable Unavailable DeepaliMatty MD Unavailable Unavailable [...] is protected by Article 27-F of the [facility] Public Health law. If you continue you may have access to information: Regarding HIV / AIDS; Provided by facilities licensed or operated by the [facility] Office of Mental Health; or Provided by the [facility] Office for People With Developmental Disabilities. If such information is present, then the following [facility] mandated warning applies: This information has been [...] law may result in a fine or mcc sentence or both. A general authorization for the release of medical or other information is NOT sufficient authorization for further disc losure. Allergies and Adverse Reactions Type Description Substance Reaction Status Data Source(s ) Drug allergy Losartan Potassium Losartan throat swelling Active eCW1 ([facility]) DRUG INGREDI LOSARTAN LOSARTAN Anaphylaxis [facility] Family History Family Member Name Family Member Gender Family Member Status Date o f Status Description Data Source(s) Unknown Unknown Problem MEDENT ([facility]) Encounters Encounter Providers Location Date Indications Data Source(s ) Outpatient Attender: Dara Hardy MDConsultant: LATOYA Pires MD 04/09/2020 08:49:46 AM [facility] Outpatient Attender: Dara Hardy MDConsultant: LATOYA Pires MD 04/09/2020 08:47:00 AM [facility] Unknown [address] [facility] [place] [address] 03/26/2020 12:00:00 AM EST eCW1 ([facility]) Unknown [address] [facility] [place] [address] 03/20/2020 12:00:00 AM EST eCW1 ([facility]) Unknown [address] [facility] [address] 03/09/2020 12:00:00 AM EST eCW1 ([facility]) Unknown [address] [facility] [place] [address] 03/07/2020 12:00:00 AM EST eCW1 ([facility]) Inpatient Attender: Lisa Velez MDA ttender: RAMY WARD MDAdmitter: Lisa Velez MDReferrer: RAMY WARD MD [id number] 03/06/2020 12:00 :00 AM EST - 03/18/2020 12:00:00 AM EST Chronic myelomonocytic leukemia not havi ng achieved remission [facility] 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 Outpatient [email or web address] 02/24/2020 04:56:28 PM EST [facility] Outpatient [email or web address] 02/23/2020 12:00:00 AM EST [facility] Unknown [address] [facility] [address] 02/20/2020 12:00:00 AM EST eCW1 ([facility]) Outpatient [address] [facility] [place] [address] 12/23/2019 12:00:00 AM EST eCW1 ([facility]) Outpatient Attender: Isi RODRIGUES-SJPMarielMAX 05/2019 12:00:00 AM EST - 12/21/2019 01:54:51 PM EST [facility] Outpatient RAVI-[id number] 11/03/2019 09:39 :53 AM EDT - 11/03/2019 10:33:53 AM EDT [facility] Unknown [address] [facility] [address] 07/28/2019 12:00:00 AM EDT eCW1 ([facility]) [facility] GME Resident [address] [place] [phone] 07/22/2019 12:00:00 AM EDT eCW1 ([facility]) Unknown [address] [place] [address] 07/18/2019 12:00:00 AM EDT eCW1 ([facility]) [address] [address] 07/14/2019 12:00:00 AM EDT eCW1 ([facility]) Outpatient 07/06/2019 05:22:00 AM EDT [facility] [address] [facility] [address] 06/29/2019 12:00:00 AM EDT eCW1 ([facility]) [facility] [address] [facility] Y [address] 06/29/2019 12:00:00 AM EDT eCW1 ([facility]) [facility] [address] [facility] Y [address] 06/27/2019 12:00:00 AM EDT eCW1 ([facility]) [facility] GME Resident [address] [place] [phone] 06/24/2019 12:00:00 AM EDT eCW1 ([facility]) Outpatient 06/22/2019 05:30:00 AM EDT [facility] [address] [address] 06/10/2019 12:00:00 AM EDT eCW1 ([facility]) [address] [address] 06/06/2019 12:00:00 AM EDT eCW1 ([facility]) [address] [address] 06/03/2019 12:00:00 AM EDT eCW1 ([facility]) Outpatient [email or web address] 06/02/2019 11:09:[address] [facility] [address] [place] [address], [place] [address] 06/02/2019 12:00:00 AM EDT eCW1 ([facility]) [address] [address] 05/30/2019 12:00:00 AM EDT eCW1 ([facility]) [facility] Resident [address] [place] [phone] 05/27/2019 12:00:00 AM EDT eCW1 [facility] Resident [address] [place] [phone] 05/16/2019 12:00:00 AM EDT eCW1 ([facility]) [address] [address] 05/12/2019 12:00:00 AM EDT eCW1 ([facility]) [address] [place] [address] 05/12/2019 12:00:00 AM EDT eCW1 ([facility]) [address] [place] [address] 05/12/2019 12:00:00 AM EDT eCW1 ([facility]) [address] [place] [address] 05/12/2019 12:00:00 AM EDT eCW1 ([facility]) [facility] Dawson [address] [facility] [address] 05/09/2019 12:00:00 AM EDT eCW1 ([facility]) Outpatient 05/03/2019 11:18:00 AM EDT [facility] Outpatient 04/21/2019 01:58:00 PM EST [facility] Outpatient Attender: Zafar Diaz MD 04/19/2019 12:00:0 0 AM EST [facility] Outpatient 04/15/2019 06:06:00 AM EST [facility] [place] [address] [facility] [address] 04/15/2019 12:00:00 AM EST eCW1 ([facility]) [facility] GME Resident [address] [place] [address] 04/15/2019 12:00:00 AM EST eCW1 ([facility]) Outpatient 04/12/2019 10:01:00 AM EST [facility] Outpatient Attender: Zafar Diaz MD Admitter: Zafar Diaz MDReferrer: PROVIDER SYSTEM IN 04/05/2019 12:00:00 AM EST - 04/09/2019 12:00:00 AM EST acute leukemia [facility] acute leukemia Patient discharged. Outpatient Attender: Pedro Pablo George DAdmitter: Pedro Pablo Reece MDReferrer: Pedro Pablo Reece MD 04/03/2019 12:00:00 AM EST - 04/04/2019 12:00:00 AM EST Leukoerythroblastosis Rule out [facility] Leukoerythroblastosis Rule out Leukemia Outpatient [email or web address] 03/31/2019 09:24 :48 AM EST - 03/31/2019 09:45:58 AM EST [facility] Outpatient 03/30/2019 03:47:00 PM EST [facility] [place] [address] [facility] [address] 03/28/2019 12:00:00 AM EST eCW1 ([facility]) [facility] GME Resident [address] [place] [address] 03/25/2019 12:00:00 AM EST eCW1 ([facility]) [facility] Shandra Kang[address] [facility] [address] 03/18/2019 12:00:00 AM EST eCW1 ([facility]) [facility] Shandra Kang[address] [facility] [address] 02/17/2019 12:00:00 AM EST eCW1 ([facility]) Immunizations Vaccine Date Status Description Data Source(s) [...] active Sennosides-Docusate Sodium 8.6-50 MG eCW 1 ([facility]) Vitamin D-3 25 MCG (1000 UT) Vitamin D-3 25 MCG (1000 UT) 12:00:00 AM EST 1.0 {capsule} active Vitamin D- 3 25 MCG (1000 UT) eCW1 ([facility]) Acyclovir 200 MG Oral Capsule Acyclovir 200 MG 03/25/2020 12:00:00 AM EST 1.0 {capsule} active Acyclovir 200 MG eCW1 ([facility]) eltrombopag 25 MG Oral Tablet [Promacta] Promacta 25 MG Prom acta 25 MG 03/25/2020 12:00:00 AM EST active Promacta 25 MG eCW1 ([facility]) Levofloxacin 500 MG Oral Tablet Levofloxacin 500 MG 03/25/2020 1 2:00:00 AM EST 1.0 {tablet} active Levofloxaci n 500 MG eCW1 ([facility]) Prochlorperazine 10 MG Oral Tablet Prochlorperazine Ma leate 10 MG Prochlorperazine Maleate 10 MG 03/25/2020 12:00:00 AM EST 1. 0 {tablet_as_needed} active Prochlorperaz ine Maleate 10 MG eCW1 ([facility]) Umeclidinium Pomeroy 62.5 MCG/INH UNK 03/25/2020 12:00:00 AM EST 1.0 {puff} active Umeclidinium [place] 62.5 MCG/INH eCW1 ([facility]) Insulin Lispro 100 UNT/ML Injectable Solution [Humalog ] Humalog 100 UNIT/ML Humalog 100 UNIT/ML 03/25/2020 12:00:00 AM EST active Humalog 100 UNIT/ML eCW1 ([facility]) Fluconazole 200 MG Oral Tablet Fluconazole 200 MG 03/25/2020 12:00: 00 AM EST 1.0 {tablet} active Fluconazole 200 MG eCW1 ([facility]) pantoprazole 40 MG Delayed Release Oral Tablet Pantopr azole Sodium 40 MG Pantoprazole Sodium 40 MG 03/25/2020 12:00:00 AM EST 1.0 {tablet} active Pantoprazole Sodium 40 MG eCW1 ( [facility]) Acetaminophen 500 MG Oral Tablet Acetaminophen 500 MG 2020 12:00:00 AM EST 2.0 {tablet_as_needed} active A cetaminophen 500 MG eCW1 ([facility]) Acetaminophen 325 MG Oral Tablet acetaminophen (TYLENO L) tablet 650 mg acetaminophen (TYLENOL) tablet 650 mg 03/18/2020 01:00:00 PM EST 65 0 mg Oral completed 650 mg, Oral, O nce, 03/18/20 at 1300, For 1 dose
Maximum daily dose of acetaminophen is 3,000 mg from all sources in 24 hours.
[facility] Medication administered onsite Diphenhydramine Hydrochloride 25 MG Oral Capsule diphenhydrAMINE (BENADRYL) capsule 25 mg diphenhydrAMINE (BENADRYL) capsule 25 mg 03/18/2020 01 :00:00 PM EST 25 mg Oral completed 25 mg, Oral, Once, 03/18/20 at 1300, For 1 dose [facility] Medication administered onsite carvedilol 3.125 MG Oral Tablet carvedilol (COREG) tab let 6.25 mg carvedilol (COREG) tablet 6.25 mg 03/18/2020 10:45:00 AM EST 6.25 mg Oral active 6.25 mg, Oral, Once, 03/18/20 at 1045, For 1 dose [facility] Medication administered onsite carvedilol 12.5 MG Oral Tablet Carvedilol 12.5 MG Oral Tablet (COREG) Carvedilol 12.5 MG Oral Tablet (COREG) 03/18/2020 12:00:00 AM EST 6.25 mg Oral active Take 0.5 tablets by mouth Two Ti mes Daily [facility] Levofloxacin 500 MG Oral Tablet levoFLOXacin 500 MG Or al Tablet (LEVAQUIN) levoFLOXacin 500 MG Oral Tablet (LEVAQUIN) 03/18/2020 12:00:00 AM EST 500 mg Oral active Take 1 tablet by melissa th daily for 7 days [facility] Levofloxacin 500 MG Oral Tablet [...] and sucralfate.
Discouraged Uses: Treatment of UTI
[facility] Medication administered onsite vancomycin (VANCOCIN) 1250 mg in NaCl 0.9 % 261 mL (premix) 03/17/2020 01:45:00 AM EST 1250 mg Intravenous aborted 1,250 mg, Intravenous, Administer over 90 Minutes, Every 24 hours, First dose (after last reorder) on 03/17/20 at 0145, For 3 days [facility] Medication administered onsite Piperacillin 3000 [...] piperacillin- tazobactam is compatible with Lactated Ringers.
[facility] Medication administered onsite Levofloxacin 500 [...] and sucralfate.
Discouraged Uses: Treatment of UTI
[facility] Medication administered onsite Sandraaglmarina KwikPen 100 UNIT/ML Subcutaneou s Solution Pen-injector (insulin glargine) 4558-5866-53 03/16/2020 12:00:00 AM EST 10 U Subcutaneous active Inject 10 Units into the skin ni [facility] maalox/lidocaine/diphenhydrAMINE 1:1:1 SWISH & SWAL oral kourtney pension 03/16/2020 12:00:00 AM EST 5 mL Swish & Spit active Swish and spit 5 mLs Four times daily before meals & bedtime as needed (mucositis) for up to 10 daysPharmacy compound: Maalox, lidocaine viscous 2 %, Benadryl 12.5 mg/5 mL [facility] pantoprazole 40 MG Delayed Release Oral Tablet Pantoprazole Sodium 40 MG Oral Tablet Delayed Release (PROTONIX) Pantoprazole Sodium 40 MG Oral Tablet De layed Release (PROTONIX) 03/16/2020 12:00:00 AM EST 40 mg Oral active Take 1 tablet by mouth daily [facility] Lidocaine 5 % External Patch (LIDODERM) 8088-8778-46 03/16/19 12:00:00 AM EST 1 {patch} Transdermal active Place 1 pa tch onto the skin daily 12 hours on 12 hours off [facility] Fluconazole 200 MG Oral Tablet Fluconazole 200 MG Oral Tablet (DIFLUCAN) Fluconazole 200 MG Oral Tablet (DIFLUCAN) 03/16/2020 12:00:00 AM EST 200 mg Oral active Take 1 tablet by melissa th daily [facility] Insulin Glargine 100 UNT/ML Injectable [...] glucose more than 400 mg/dL: notify provider
[facility] Medication administered onsite eltrombopag 25 MG Oral Tablet Eltrombopag Olamine 25 M G Oral Tablet (PROMACTA) Eltrombopag Olamine 25 MG Oral Tablet (PROMACTA) 03/15/2020 12:00:00 AM EST 50 mg Oral active Take 2 tab lets by mouth daily Administer on an empty stomach, 1 hour before or 2 hours after a meal. [facility] maalox/lidocaine/diphenhydrAMINE 1:1:1 SWISH & SWAL oral kourtney pension 03/15/2020 12:00:00 AM EST 5 mL Swish & Spit aborted Swish and spit 5 mLs Four times daily before meals & bedtime as needed (mucositis) for up to 10 daysPharmacy compound: Maalox, lidocaine viscous 2 %, Benadryl 12.5 mg/5 mL [facility] Acyclovir 200 MG Oral Capsule Acyclovir 200 MG Oral Ca psule (ZOVIRAX) Acyclovir 200 MG Oral Capsule (ZOVIRAX) 03/15/2020 12:00:00 AM EST 400 mg Ora l active Take 2 capsules by mouth Three t imes daily [facility] Tiotropium Pomeroy Monohydrate 2.5 MCG/A CT Inhalation Aerosol Solution (SPIRIVA RESPIMAT) [id number] 03/15/2020 12:00:00 AM EST 2 {puff} Inhalation aborted Inhale 2 puffs into the lungs daily [facility] sennosides, LONGTERM 8.6 MG Oral Tablet Senna 8.6 MG Oral T ablet Senna 8.6 MG Oral Tablet 03/15/2020 12:00:00 AM EST 2 {tbl} Oral active Take 2 tablets by mouth nightly [facility] NaCl infusion 0.9 % 9430-9589-06 03/14/2020 08:45:00 AM EST Intravenous aborted at 100 mL/hr, Intrav enous, Continuous, Starting Thu03/14/20 at 0845, For 30 days [facility] Medication administered onsite potassium chloride (K-DUR) dissolvable tablet 40 mEq 08813-6 [id number] 03/14/2020 03:15:00 AM EST 40 meq Oral completed 40 mEq, Oral, 2 Times Daily, First dose on Thu03/14/20 at 0315, For 1 day
May be dissolved in water for patients with a G-Tube or unable to swallow. If concern for clogging G-Tube, may contact Pharmacy to switch formulation to a powder packet.
[facility] Medication administered onsite TC-99M labeled red blood cells (ULTRATAG) 03/12/2020 11:00 :00 AM EST Intravenous completed Intravenous, Once, Thu03/12/20 at 1100, For 1 dose, Imaging Protocol [facility] Medication administered onsite sodium chloride 0.45 % 1,000 mL with sodium bicarbonate 8.4 % 75 mEq infusion 03/12/2020 09:00:00 AM EST Intravenous aborted at 100 mL/hr, Intravenous, Continuous, Starting Thu03/12/20 at 0900, For 30 days [facility] Medication administered onsite carvedilol 3.125 MG Oral Tablet carvedilol (COREG) tab let 12.5 mg carvedilol (COREG) tablet 12.5 mg 03/11/2020 09:00:00 PM EST 12.5 mg Oral aborted 12.5 mg, Oral, 2 Times Daily, First dose (after last modification) on Thu03/11/20 at 2100, For 51 doses [facility] Medication administered onsite vancomycin (VANCOCIN) 1250 mg in NaCl 0.9 % 261 mL (premix) 03/11/2020 08:00:00 PM EST 1250 mg Intravenous aborted 1,250 mg, Intravenous, at 174 mL/hr, Every 24 hours, First dose on 03/11/20 at 2000, For 3 doses
Discouraged Uses: -Treatment of C. difficile infection -Routine treatment of neutropenic fever -Non-purulent cellulitis -Community-acquired intra-abdominal infection
[facility] Medication administered onsite Diphenhydramine Hydrochloride 25 MG Oral Capsule diphenhydrAMINE (BENADRYL) capsule 25 mg diphenhydrAMINE (BENADRYL) capsule 25 mg 03/11/2020 06 :30:00 PM EST 25 mg Oral completed 25 mg, Oral, Every 6 hours PRN, transfusion, Starting 03/11/20 at 1830, For 6 days 14 hours [facility] Medication administered onsite Albuterol 0.83 [...] this unless CRISS is selected 'Yes' below.
[facility] Medication administered onsite phytonadione (VITAMIN K1) 1 mg/mL oral solution 5 mg 03/11/2020 02:30:00 PM EST 5 mg Oral completed 5 mg, Oral, Once, 03/11/20 at 1430, For 1 dose [facility] Medication administered onsite azaCITIDine (VIDAZA) [...] completed within 1 hr of vial reconstitution.
[facility] Chronic myelomonocytic leukemia not havi ng achieved remission Medication administered onsite Ondansetron 8 MG Oral Tablet ondansetron (ZOFRAN) tabl et 8 mg ondansetron (ZOFRAN) tablet 8 mg 03/11/2020 01:00:00 PM EST 8 mg Oral completed 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 8 mg, Oral, Once, 03/11/20 at 1300, For 1 dose
Give prior to chemotherapy.
[facility] Chronic myelomonocytic leukemia not havi ng achieved remission Medication administered onsite lidocaine (LIDODERM) 5 % patch 1 patch [id number] 12:45:00 PM EST 1 {patch} Transdermal active 1 patch, T ransdermal, Daily Standard, First dose (after last modification) on 03/11/20 at 1245, For 8 doses
Apply to back12 hours on - 12 hours off
[facility] Medication administered onsite Furosemide 20 MG Oral Tablet furosemide (LASIX) tablet 40 mg furosemide (LASIX) tablet 40 mg 03/11/2020 09:30:00 AM EST 40 mg Oral abort ed 40 mg, Oral, Daily Standard, First dose on 03/11/20 at 0930, For 30 days [facility] Medication administered onsite heparin sodium, [...] patency and/or prn to obtain blood return.
[facility] Chronic myelomonocytic leukemia not havi ng achieved remission Medication administered onsite sodium chloride (preservative free) 0.9 % flush 10 mL 52836- 186-00 03/11/2020 09:15:16 AM EST 10 mL Intravenous active Ch ronic myelomonocytic leukemia not having achieved remission 10 mL, Intravenous, PRN, Line Care, Starting 03/11/20 at 0915, For 30 days
Flush via port/central line/peripheral before and after each use.
[facility] Chronic myelomonocytic leukemia not havi [...] line after NS prior to port deaccess.
[facility] Chronic myelomonocytic leukemia not havi ng achieved remission Medication administered onsite NaCl infusion 0.9 % 8323-2988-91 03/11/2020 09:15:16 AM EST Intravenous active Chronic myelomonocytic leukemia not having achieved remissio n Intravenous, PRN, Line care, Starting 03/11/20 at 0915, For 30 days
Flush with 30mL after each medication given intravenously.
[facility] Chronic myelomonocytic leukemia not havi [...] of piperacillin-tazobactam is compatible with Lactated Ringers.
[facility] Medication administered onsite vancomycin (VANCOCIN) 1250 mg in NaCl 0.9 % 261 mL (premix) 03/10/2020 06:45:00 PM EST 1250 mg Intravenous completed 1,250 mg, Intravenous, Administer over 90 Minutes, Once, 03/10/20 at 1845, For 1 dose [facility] Medication administered onsite Acetaminophen 325 MG Oral Tablet acetaminophen (TYLENO L) tablet 650 mg acetaminophen (TYLENOL) tablet 650 mg 03/10/2020 06:15:00 PM EST 65 0 mg Oral completed 650 mg, Oral, O nce, 03/10/20 at 1815, For 1 dose
Maximum daily dose of acetaminophen is 3,000 mg from all sources in 24 hours.
[facility] Medication administered onsite Piperacillin 3000 [...] piperacillin- tazobactam is compatible with Lactated Ringers.
[facility] Medication administered onsite azaCITIDine (VIDAZA) [...] completed within 1 hr of vial reconstitution.
[facility] Chronic myelomonocytic leukemia not havi ng achieved remission Medication administered onsite Ondansetron 8 MG Oral Tablet ondansetron (ZOFRAN) tabl et 8 mg ondansetron (ZOFRAN) tablet 8 mg 03/10/2020 02:00:00 PM EST 8 mg Oral completed 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 8 mg, Oral, Once, 03/10/20 at 1400, For 1 dose
Give prior to chemotherapy.
[facility] Chronic myelomonocytic leukemia not havi [...] patency and/or prn to obtain blood return.
[facility] Chronic myelomonocytic leukemia not havi [...] line after NS prior to port deaccess.
[facility] Chronic myelomonocytic leukemia not havi ng achieved remission Medication administered onsite NaCl infusion 0.9 % 8869-9398-40 03/10/2020 11:13:25 AM EST Intravenous active Chronic myelomonocytic leukemia not having achieved remissio n Intravenous, PRN, Line care, Starting 03/10/20 at 1113, For 30 days
Flush with 30mL after each medication given intravenously.
[facility] Chronic myelomonocytic leukemia not havi ng achieved remission Medication administered onsite sodium chloride (preservative free) 0.9 % flush 10 mL [id number]- 186-00 03/10/2020 11:13:25 AM EST 10 mL Intravenous active Ch ronic myelomonocytic leukemia not having achieved remission 10 mL, Intravenous, PRN, Line Care, Starting 03/10/20 at 1113, For 30 days
Flush via port/central line/peripheral before and after each use.
[facility] Chronic myelomonocytic leukemia not havi ng achieved remission Medication administered onsite eltrombopag 25 MG Oral Tablet eltrombopag (PROMACTA) t ablet 50 mg eltrombopag (PROMACTA) tablet 50 mg 03/09/2020 11:30:00 AM EST 50 mg Oral active 50 mg, Oral, Daily Standard, First dose on Thu03/09/20 at 1130, For 12 doses [facility] Medication administered onsite Docusate Sodium 100 MG Oral Capsule docusate sodium (C OLACE) capsule 100 mg docusate sodium (COLACE) capsule 100 mg 03/08/2020 09:00:00 PM EST 100 mg Oral active 100 mg, Oral, 2 Times Daily, First dose on Thu03/08/20 at 2100, For 30 days [facility] Medication administered onsite POLYETHYLENE GLYCOL [...] due to potential increased risk for aspiration.
[facility] Medication administered onsite Levofloxacin 250 [...] and sucralfate.
Discouraged Uses: Treatment of UTI
[facility] Medication administered onsite Allopurinol 100 MG Oral Tablet allopurinol (ZYLOPRIM) tablet 100 mg allopurinol (ZYLOPRIM) tablet 100 mg 03/08/2020 09:00:00 AM EST 100 mg Oral active 100 mg, Oral, Daily Standard, First dose on Thu at 0900, For 30 days [facility] Medication administered onsite Diphenhydramine Hydrochloride 25 MG Oral Capsule diphenhydrAMINE (BENADRYL) capsule 25 mg diphenhydrAMINE (BENADRYL) capsule 25 mg 03/08/2020 08 :40:18 AM EST 25 mg Oral aborted 25 mg, O ral, Daily PRN, transfusion, Starting Ira 03/08/20 at 0840, For 30 days [facility] Medication administered onsite Acetaminophen 325 MG Oral Tablet acetaminophen (TYLENO L) tablet 650 mg acetaminophen (TYLENOL) tablet 650 mg 03/08/2020 08:39:40 AM EST 65 0 mg Oral active 650 mg, Oral, D aily PRN, transfusion, Starting Ira 03/08/20 at 0839, For 30 days
Maximum daily dose of acetaminophen is 3000 mg from all sources in 24 hours.
[facility] Medication administered onsite maalox/lidocaine/diphenhydrAMINE (RADIATION MIXTURE) 1 :1:1 oral suspension 5 mL 03/08/2020 08:38:26 AM EST 5 mL Swish & Spit activ e 5 mL, Swish & Spit, Before Meals & Bedtime-PRN, mucositis, Starting Ira 03/08/20 at 0838, For 30 days [facility] Medication administered onsite Acetaminophen 325 MG Oral Tablet acetaminophen (TYLENO L) tablet 650 mg acetaminophen (TYLENOL) tablet 650 mg 03/08/2020 05:30:00 AM EST 65 0 mg Oral completed 650 mg, Oral, O nce, [facility] 03/08/20 at 0530, For 1 dose
Maximum daily dose of acetaminophen is 3,000 mg from all sources in 24 hours.
[facility] Medication administered onsite sennosides, LONGTERM 8.6 MG Oral Tablet senna tablet 2 tablet sen na tablet 2 tablet 03/07/2020 10:00:00 PM EST 2 {tbl} Oral active 2 tablet, Oral, Nightly, First dose on Thu03/07/20 at 2200, For 30 days [facility] Medication administered onsite Diphenhydramine Hydrochloride 25 MG Oral Capsule diphenhydrAMINE (BENADRYL) capsule 25 mg diphenhydrAMINE (BENADRYL) capsule 25 mg 03/07/2020 09 :45:00 PM EST 25 mg Oral completed 25 mg, Oral, Once, Thu03/07/20 at 2145, For 1 dose [facility] Medication administered onsite Pravastatin Sodium 20 MG Oral Tablet pravastatin (PRAV ACHOL) tablet 40 mg pravastatin (PRAVACHOL) tablet 40 mg 03/07/2020 09:00:00 PM EST 40 mg Oral active 40 mg, Oral, Nai ry evening, First dose on Thu03/07/20 at 2100, For 30 days [facility] Medication administered onsite Acetaminophen 325 MG Oral Tablet acetaminophen (TYLENO L) tablet 650 mg acetaminophen (TYLENOL) tablet 650 mg 03/07/2020 08:30:00 PM EST 65 0 mg Oral completed 650 mg, Oral, O nce, Thu03/07/20 at 2030, For 1 dose
Maximum daily dose of acetaminophen is 3,000 mg from all sources in 24 hours.
[facility] Medication administered onsite Acetaminophen 325 [...] mg from all sources in 24 hours.
[facility] Medication administered onsite lidocaine (XYLOCAINE) 2 % injection 10 mL [id number] 03/07/2020 11:45:00 AM EST 10 mL Infiltration completed 1 0 mL, Infiltration, Once, Thu03/07/20 at 1145, For 1 dose [facility] Medication administered onsite Acyclovir 200 MG Oral Capsule acyclovir (ZOVIRAX) caps ule 400 mg acyclovir (ZOVIRAX) capsule 400 mg 03/07/2020 09:00:00 AM EST 400 mg Oral active 400 mg, Oral, Three Times Daily Standar d, First dose on Thu03/07/20 at 0900, For 54 doses [facility] Medication administered onsite Amlodipine 5 MG Oral Tablet amlodipine (NORVASC) table t 5 mg amlodipine (NORVASC) tablet 5 mg 03/07/2020 09:00:00 AM EST 5 mg Oral active 5 mg, Oral, Daily Standard, First dose on Thu03/07/20 at 0900, For 30 days
Check vital signs before administering
[facility] Medication administered onsite Fluconazole 200 MG Oral Tablet fluconazole (DIFLUCAN) tablet 200 mg fluconazole (DIFLUCAN) tablet 200 mg 03/07/2020 09:00:00 AM EST 200 mg Oral active 200 mg, Oral, Daily Standard, First dose on Thu at 0900, For 18 doses [facility] Medication administered onsite Spironolactone 100 MG Oral Tablet spironolactone (LOVELY CTONE) tablet 100 mg spironolactone (ALDACTONE) tablet 100 mg 03/07/2020 09:00:00 AM EST 100 mg Oral active 100 mg, Oral, Daily Standard, First dose on Thu03/07/20 at 0900, For 30 days [facility] Medication administered onsite carvedilol 3.125 MG Oral Tablet carvedilol (COREG) tab let 12.5 mg carvedilol (COREG) tablet 12.5 mg 03/07/2020 09:00:00 AM EST 12.5 mg Oral aborted 12.5 mg, Oral, 2 Times Daily, First dose on Thu 1 at 0900, For 30 days [facility] Medication administered onsite 24 HR Isosorbide Mononitrate 30 MG Exten ded Release Oral Tablet isosorbide mononitrate (IMDUR) 24 hr tablet 60 mg isosorbide mononitrate (IMDUR) 24 hr tablet 60 mg 03/07/2020 09:00:00 AM EST 60 mg Oral activ e 60 mg, Oral, Daily Standard, First dose on Thu03/07/20 at 0900, For 30 days [facility] Medication administered onsite tiotropium (SPIRIVA RESPIMAT) inhalation spray 2 puff [id number] 03/07/2020 09:00:00 AM EST 2 {puff} Inhalation active 2 pu ff, Inhalation, Daily Standard, First dose on Thu03/07/20 at 0900, For 30 days [facility] Medication administered onsite Albuterol 0.83 [...] this unless CRISS is selected 'Yes' below.
[facility] Medication administered onsite insulin lispro (HumaLOG) injection LOW DOSE EATING INS ULIN patients 1-8 Units [id number] 03/07/2020 08:00:00 AM EST U Subcutaneous active 1-8 Units, Subcutaneous, Three Times Daily-With Meals, First dose on Thu03/07/20 at 0800, For 30 days
Nursing MUST open the 'SQ Insulin Dosing Charts' Sidebar Report, or, the Patient Summary or Summary Report within the ED.
[facility] Medication administered onsite Levofloxacin 500 [...] and sucralfate.
Discouraged Uses: Treatment of UTI
[facility] Medication administered onsite pantoprazole 40 MG Delayed Release Oral Tablet pantoprazole (PROTONIX) EC tablet 40 mg pantoprazole (PROTONIX) EC tablet 40 mg 03/07/2020 12:00:[address] 40 mg Oral active 40 mg, Ora l, Daily Standard, First dose on Thu03/07/20 at 0000, For 30 days
Do not crush or chew
[facility] Medication administered onsite Prochlorperazine 5 MG/ML Injectable Solu tion prochlorperazine (COMPAZINE) injection 5 mg prochlorperazine (COMPAZINE) injection 5 mg 03/06/2020 11:53:38 PM EST 5 mg Intravenous active 5 mg , Intravenous, Every 6 hours PRN, Nausea, Vomiting, Starting Thu03/06/20 at 2353, For 30 days
For IV use: Prepare in 50 mL NS and infuse over 15 minutes.
[facility] Medication administered onsite NaCl infusion 0.9 % [id number] 03/06/2020 11:45:00 PM EST Intravenous aborted at 100 mL/hr, Intrav enous, Continuous, Starting Thu03/06/20 at 2345, For 135 hours [facility] Medication administered onsite Insulin Glargine [...] glucose more than 400 mg/dL: notify provider
[facility] Medication administered onsite Glucose 0.417 MG/MG Oral Gel glucose (GLUTOSE) 40 % or al gel 15 g glucose (GLUTOSE) 40 % oral gel 15 g 03/06/2020 10:54:02 PM EST 15 g Oral active 15 g, Oral, PRN, Low blood s ugar, for gluose 55-69 mg/dl and able to take PO, Starting Thu03/06/20 at 2254, For 30 days [facility] Medication administered onsite dextrose 50 % IV solution 25 mL [id number] 03/06/2020 10:54:[address] 25 mL Intravenous active 25 mL, Intrav enous, PRN, Other, blood glucose <55, Starting Thu03/06/20 at 2254, For 30 days
Not for midline administration.
[facility] Medication administered onsite Glucagon 1 MG Injection glucagon (human recombinant) ( GLUCAGEN) injection 1 mg glucagon (human recombinant) (GLUCAGEN) injection 1 mg 03/06/2020 10:54:02 PM EST 1 mg Intramuscular active 1 mg, Intramuscular, PRN, for glucose <55 without IV access, Starting Thu03/06/20 at 2254, For 30 days [facility] Medication administered onsite INQOVI 35-100 MG TABS [id number] 12/14/2019 12:00:00 AM EDT active [facility] Pravastatin Sodium 40 MG Oral Tablet pravastatin (PRAV ACHOL) 40 MG tablet pravastatin (PRAVACHOL) 40 MG tablet 12/06/2019 12:00:00 AM EDT 40 mg Oral active Take 1 tablet (40 mg total) by mouth daily [facility] 7 ACTUAT umeclidinium 0.0625 MG/ACTUAT D ry Powder Inhaler [Incruse] INCRUSE ELLIPTA 62.5 MCG/INH AEPB INCRUSE ELLIPTA 62.5 MCG/INH AEPB 11/28/2019 12:00:00 AM EDT active INHALE 1 PUFF BY MOUTH ONCE DAILY [facility] Pravastatin Sodium 40 MG Oral Tablet Pravastatin Sodium 40 M G 06/28/2019 12:00:00 AM EDT 1.0 {tablet} active Pr avastatin Sodium 40 MG eCW1 ([facility]) Pravastatin Sodium 40 MG Oral Tablet Pravastatin Sodium 40 M G 06/28/2019 12:00:00 AM EDT 1.0 {tablet} active Pr avastatin Sodium 40 MG eCW1 ([facility]) Pravastatin Sodium 40 MG Oral Tablet Pravastatin Sodium 40 M G 06/28/2019 12:00:00 AM EDT 1.0 {tablet} active Pr avastatin Sodium 40 MG eCW1 ([facility]) Pravastatin Sodium 40 MG Oral Tablet Pravastatin Sodium 40 M G 06/28/2019 12:00:00 AM EDT 1.0 {tablet} active Pr avastatin Sodium 40 MG eCW1 ([facility]) Pravastatin Sodium 40 MG Oral Tablet Pravastatin Sodium 40 M G 06/28/2019 12:00:00 AM EDT 1.0 {tablet} active Pr avastatin Sodium 40 MG eCW1 ([facility]) Pravastatin Sodium 40 MG Oral Tablet Pravastatin Sodium 40 M G 06/28/2019 12:00:00 AM EDT active 1 tablet eCW1 ([facility]) Pravastatin Sodium 40 MG Oral Tablet Pravastatin Sodium 40 M G 06/28/2019 12:00:00 AM EDT 1.0 {tablet} active Pr avastatin Sodium 40 MG eCW1 ([facility]) Pravastatin Sodium 40 MG Oral Tablet Pravastatin Sodium 40 M G 06/28/2019 12:00:00 AM EDT 1.0 {tablet} active Pr avastatin Sodium 40 MG eCW1 ([facility]) 24 HR Isosorbide Mononitrate 60 MG Exten ded Release Oral Tablet Isosorbide Mononitrate ER 60 MG Isosorbide Mononitrate ER 60 MG 06/10/2019 12:00:00 AM EDT 1.0 {tablet_in_the_morning} active Isosorbide Mononitrate ER 60 MG eCW1 ([facility]) 24 HR Isosorbide Mononitrate 60 MG Exten ded Release Oral Tablet Isosorbide Mononitrate ER 60 MG Isosorbide Mononitrate ER 60 MG 06/10/2019 12:00:00 AM EDT active 1 tablet in the morning eCW1 ([facility]) 24 HR Isosorbide Mononitrate 60 MG Exten ded Release Oral Tablet Isosorbide Mononitrate ER 60 MG Isosorbide Mononitrate ER 60 MG 06/10/2019 12:00:00 AM EDT 1.0 {tablet_in_the_morning} active Isosorbide Mononitrate ER 60 MG eCW1 ([facility]) 24 HR Isosorbide Mononitrate 60 MG Exten ded Release Oral Tablet Isosorbide Mononitrate ER 60 MG Isosorbide Mononitrate ER 60 MG 06/10/2019 12:00:00 AM EDT 1.0 {tablet_in_the_morning} active Isosorbide Mononitrate ER 60 MG eCW1 ([facility]) 24 HR Isosorbide Mononitrate 60 MG Exten ded Release Oral Tablet Isosorbide Mononitrate ER 60 MG Isosorbide Mononitrate ER 60 MG 06/10/2019 12:00:00 AM EDT 1.0 {tablet_in_the_morning} active Isosorbide Mononitrate ER 60 MG eCW1 ([facility]) 24 HR Isosorbide Mononitrate 60 MG Exten ded Release Oral Tablet Isosorbide Mononitrate ER 60 MG Isosorbide Mononitrate ER 60 MG 06/10/2019 12:00:00 AM EDT active 1 tablet in the morning eCW1 ([facility]) 24 HR Isosorbide Mononitrate 60 MG Exten ded Release Oral Tablet Isosorbide Mononitrate ER 60 MG Isosorbide Mononitrate ER 60 MG 06/10/2019 12:00:00 AM EDT 1.0 {tablet_in_the_morning} active Isosorbide Mononitrate ER 60 MG eCW1 ([facility]) 24 HR Isosorbide Mononitrate 60 MG Exten ded Release Oral Tablet Isosorbide Mononitrate ER 60 MG Isosorbide Mononitrate ER 60 MG 06/10/2019 12:00:00 AM EDT 1.0 {tablet_in_the_morning} active Isosorbide Mononitrate ER 60 MG eCW1 ([facility]) 24 HR Isosorbide Mononitrate 60 MG Exten ded Release Oral Tablet Isosorbide Mononitrate ER 60 MG Isosorbide Mononitrate ER 60 MG 06/10/2019 12:00:00 AM EDT active 1 tablet in the morning eCW1 ([facility]) 24 HR Isosorbide Mononitrate 60 MG Exten ded Release Oral Tablet Isosorbide Mononitrate ER 60 MG Isosorbide Mononitrate ER 60 MG 06/10/2019 12:00:00 AM EDT 1.0 {tablet_in_the_morning} active Isosorbide Mononitrate ER 60 MG eCW1 ([facility]) Shower Chair without wheels UNK 05/27/2019 12:00:00 AM EDT active Shower Chair without wheels eCW1 ([facility]) Wheelchair - Wheelchair - 05/27/2019 12:00:00 AM EDT active as directed eCW1 ([facility]) Shower Chair without wheels UNK 05/27/2019 12:00:00 AM EDT active Shower Chair without wheels eCW1 ([facility]) Wheelchair - Wheelchair - 05/27/2019 12:00:00 AM EDT active as directed eCW1 ([facility]) Shower Chair without wheels UNK 05/27/2019 12:00:00 AM EDT active Shower Chair without wheels eCW1 ([facility]) Wheelchair - Wheelchair - 05/27/2019 12:00:00 AM EDT active Wheelchair - eCW1 ([facility]) Shower Chair without wheels UNK 05/27/2019 12:00:00 AM EDT active Shower Chair without wheels eCW1 ([facility]) Wheelchair - Wheelchair - 05/27/2019 12:00:00 AM EDT active as directed eCW1 ([facility]) Shower Chair without wheels UNK 05/27/2019 12:00:00 AM EDT active Shower Chair without wheels eCW1 ([facility]) Shower Chair without wheels UNK 05/27/2019 12:00:00 AM EDT active as directed eCW1 ([facility]) Wheelchair - Wheelchair - 05/27/2019 12:00:00 AM EDT active Wheelchair - eCW1 ([facility]) Wheelchair - Wheelchair - 05/27/2019 12:00:00 AM EDT active Wheelchair - eCW1 ([facility]) Wheelchair - Wheelchair - 05/27/2019 12:00:00 AM EDT active Wheelchair - eCW1 ([facility]) Shower Chair without wheels UNK 05/27/2019 12:00:00 AM EDT active as directed eCW1 ([facility]) Wheelchair - Wheelchair - 05/27/2019 12:00:00 AM EDT active as directed eCW1 ([facility]) Shower Chair without wheels UNK 05/27/2019 12:00:00 AM EDT active Shower Chair without wheels eCW1 ([facility]) Wheelchair - Wheelchair - 05/27/2019 12:00:00 AM EDT active Wheelchair - eCW1 ([facility]) Wheelchair - Wheelchair - 05/27/2019 12:00:00 AM EDT active Wheelchair - eCW1 ([facility]) Wheelchair - Wheelchair - 05/27/2019 12:00:00 AM EDT active Wheelchair - eCW1 ([facility]) Shower Chair without wheels UNK 05/27/2019 12:00:00 AM EDT active as directed eCW1 ([facility]) Shower Chair without wheels UNK 05/27/2019 12:00:00 AM EDT active as directed eCW1 ([facility]) Shower Chair without wheels UNK 05/27/2019 12:00:00 AM EDT active Shower Chair without wheels eCW1 ([facility]) carbamide peroxide 65 MG/ML Otic Solution [Debrox] Debrox 6. 5 % Debrox 6.5 % 05/16/2019 12:00:00 AM EDT 5.0 {drops_into_affected_ear} active Debrox 6.5 % eCW1 ([facility]) carbamide peroxide 65 MG/ML Otic Solution [Debrox] Debrox 6. 5 % Debrox 6.5 % 05/16/2019 12:00:00 AM EDT active 5 drops into affected ear eCW1 ([facility]) carbamide peroxide 65 MG/ML Otic Solution [Debrox] Debrox 6. 5 % Debrox 6.5 % 05/16/2019 12:00:00 AM EDT 5.0 {drops_into_affected_ear} active Debrox 6.5 % eCW1 ([facility]) carbamide peroxide 65 MG/ML Otic Solution [Debrox] Debrox 6. 5 % Debrox 6.5 % 05/16/2019 12:00:00 AM EDT 5.0 {drops_into_affected_ear} active Debrox 6.5 % W1 ([facility]) carbamide peroxide 65 MG/ML Otic Solution [Debrox] Debrox 6. 5 % Debrox 6.5 % 05/16/2019 12:00:00 AM EDT active 5 drops into affected ear eCW1 ([facility]) carbamide peroxide 65 MG/ML Otic Solution [Debrox] Debrox 6. 5 % Debrox 6.5 % 05/16/2019 12:00:00 AM EDT 5.0 {drops_into_affected_ear} active Debrox 6.5 % eCW1 ([facility]) carbamide peroxide 65 MG/ML Otic Solution [Debrox] Debrox 6. 5 % Debrox 6.5 % 05/16/2019 12:00:00 AM EDT 5.0 {drops_into_affected_ear} active Debrox 6.5 % eCW1 ([facility]) carbamide peroxide 65 MG/ML Otic Solution [Debrox] Debrox 6. 5 % Debrox 6.5 % 05/16/2019 12:00:00 AM EDT active 5 drops into affected ear eCW1 ([facility]) carbamide peroxide 65 MG/ML Otic Solution [Debrox] Debrox 6. 5 % Debrox 6.5 % 05/16/2019 12:00:00 AM EDT 5.0 {drops_into_affected_ear} active Debrox 6.5 % eCW1 ([facility]) carbamide peroxide 65 MG/ML Otic Solution [Debrox] Debrox 6. 5 % Debrox 6.5 % 05/16/2019 12:00:00 AM EDT active 5 drops into affected ear eCW1 ([facility]) Sodium Chloride 0.111 MEQ/ML Nasal [place] Saline Nasal [place] 0.65 % Saline Nasal [place] 0.65 % 05/12/2019 12:00:00 AM EDT activ e 2 sprays in each nostril as needed eCW1 ([facility]) Amoxicillin 875 MG / Clavulanate 125 MG Oral Tablet Amoxicillin-Pot Clavulanate 875-125 MG Amoxicillin-Pot Clavulanate 875-125 MG 04/22/2019 12:00:00 AM ES T active 1 tablet eCW1 ([facility]) Amoxicillin 875 MG / Clavulanate 125 MG Oral Tablet Amoxicillin-Pot Clavulanate 875-125 MG Amoxicillin-Pot Clavulanate 875-125 MG 04/22/2019 12:00:00 AM ES T suspended 1 tablet eCW1 ([facility]) Amoxicillin 875 MG / Clavulanate 125 MG Oral Tablet Amoxicillin-Pot Clavulanate 875-125 MG Amoxicillin-Pot Clavulanate 875-125 MG 04/22/2019 12:00:00 AM ES T suspended 1 tablet eCW1 ([facility]) Allopurinol 100 MG Oral Tablet Allopurinol 100 MG Oral Tablet (ZYLOPRIM) Allopurinol 100 MG Oral Tablet (ZYLOPRIM) 04/10/2019 12:00:00 AM EST 100 mg Oral active Take 1 tablet by [facility] Furosemide 40 MG Oral Tablet Furosemide 40 MG Oral Tab let (LASIX) Furosemide 40 MG Oral Tablet (LASIX) 04/10/2019 12:00:00 AM EST 40 mg Oral aborted Take 1 tablet by mouth daily [facility] 24 HR Isosorbide Mononitrate 60 MG Exten ded Release Oral Tablet Isosorbide Mononitrate ER 60 MG Oral Tablet Extended Release 24 Hour (IMDUR) Isosorbide Mononitrate ER 60 MG Oral Tablet Extended Release 24 Hour (IMDUR) 04/10/2019 12:00:00 AM EST 60 mg Oral active Take 1 t ablet by mouth daily [facility] calcium polycarbophil 625 MG Oral Tablet Calcium Polycarbophil 625 MG Oral Tablet (FIBERCON) Calcium Polycarbophil 625 MG Oral Tablet (FIBERCON) 12:00:00 AM EST 625 mg Oral active Take 1 tablet by mouth daily [facility] Amlodipine 5 MG Oral Tablet amLODIPine Besylate 5 MG O ral Tablet (NORVASC) amLODIPine Besylate 5 MG Oral Tablet (NORVASC) 04/10/2019 12:00:00 AM EST 5 mg Oral active Take 1 tablet by mouth d [facility] Tiotropium [place] Monohydrate 2.5 MCG/A CT Inhalation Aerosol Solution (SPIRIVA RESPIMAT) [id number] 04/10/2019 12:00:00 AM EST 2 {puff} Inhalation aborted Inhale 2 puffs into the lungs daily [facility] Insulin Glargine 100 UNT/ML Injectable S olution Insulin Glargine 100 UNIT/ML Subcutaneous Solution (LANTUS) Insulin Glargine 100 UNIT/ML Subcutaneou s Solution (LANTUS) 04/09/2019 12:00:00 AM EST 24 U Subcutaneous aborted Inject 24 Units into the skin nightly [facility] carvedilol 12.5 MG Oral Tablet Carvedilol 12.5 MG Oral Tablet (COREG) Carvedilol 12.5 MG Oral Tablet (COREG) 04/09/2019 12:00:00 AM EST 12.5 mg Oral aborted Take 1 tablet by mouth Two Times Daily [facility] sennosides, LONGTERM 8.6 MG Oral Tablet Senna 8.6 MG Oral T ablet Senna 8.6 MG Oral Tablet 04/09/2019 12:00:00 AM EST 2 {tbl} Oral aborted Take 2 tablets by mouth nightly [facility] Pravastatin Sodium 40 MG Oral Tablet Pra vastatin Sodium 40 MG Oral Tablet (PRAVACHOL) Pravastatin Sodium 40 MG Oral Tablet (PRAVACHOL) 04/09 12:00:00 AM EST 40 mg Oral aborted Take 1 tablet b y mouth every evening [facility] insulin lispro 100 UNIT/ML SC injection MEDIUM DOSE EA TING INSULIN patients [id number] 04/09/2019 12:00:00 AM EST U Subcutaneous aborted Patient Instructions: Please refer to Insulin Sliding Scale Instructions in the Discharge Instructions. [facility] Furosemide 20 MG Oral Tablet furosemide (LASIX) tablet 40 mg furosemide (LASIX) tablet 40 mg 04/08/2019 09:00:00 AM EST 40 mg Oral activ e 40 mg, Oral, Daily Standard, First dose (after last modification) on Thu04/08/19 at 0900, For 27 doses [facility] Medication administered onsite Acetaminophen 325 [...] mg from all sources in 24 hours.
[facility] Medication administered onsite Allopurinol 100 MG Oral Tablet allopurinol (ZYLOPRIM) tablet 100 mg allopurinol (ZYLOPRIM) tablet 100 mg 04/07/2019 09:00:00 AM EST 100 mg Oral active 100 mg, Oral, Daily Standard, First dos e (after last reorder) on Thu04/07/19 at 0900, For 7 days [facility] Medication administered onsite Furosemide 20 MG Oral Tablet furosemide (LASIX) tablet 20 mg furosemide (LASIX) tablet 20 mg 04/07/2019 09:00:00 AM EST 20 mg Oral abort ed 20 mg, Oral, Daily Standard, First dose (after last modification) on Ira 04/07/19 at 0900, For 28 doses [facility] Medication administered onsite Acetaminophen 325 MG Oral Tablet acetaminophen (TYLENO L) tablet 650 mg acetaminophen (TYLENOL) tablet 650 mg 04/07/2019 12:30:00 AM EST 65 0 mg Oral completed 650 mg, Oral, O nce, Ira 04/07/19 at 0030, For 1 dose
Maximum daily dose of acetaminophen is 3,000 mg from all sources in 24 hours.
[facility] Medication administered onsite sennosides, LONGTERM 8.6 MG Oral Tablet senna 8.6 MG 2 tablet sen na 8.6 MG 2 tablet 04/06/2019 10:00:00 PM EST 2 {tbl} Oral active 2 tablet, Oral, Nightly, First dose on Thu04/06/19 at 2200, For 30 days [facility] Medication administered onsite Insulin Glargine [...] glucose more than 400 mg/dL: notify provider
[facility] Medication administered onsite Pravastatin Sodium 20 MG Oral Tablet pravastatin (PRAV ACHOL) tablet 40 mg pravastatin (PRAVACHOL) tablet 40 mg 04/06/2019 09:00:00 PM EST 40 mg Oral active 40 mg, Oral, Nai ry evening, First dose on Thu04/06/19 at 2100, For 30 days [facility] Medication administered onsite Allopurinol 300 MG Oral Tablet allopurinol (ZYLOPRIM) tablet 300 mg allopurinol (ZYLOPRIM) tablet 300 mg 04/06/2019 01:15:00 PM EST 300 mg Oral completed 300 mg, Oral, Once, Thu04/06/19 at 1315, For 1 dose [facility] Medication administered onsite Amlodipine 5 MG Oral Tablet amlodipine (NORVASC) table t 5 mg amlodipine (NORVASC) tablet 5 mg 04/06/2019 09:00:00 AM EST 5 mg Oral active 5 mg, Oral, Daily Standard, First dose on Thu04/06/19 at 0900, For 30 days
Check vital signs before administering
[facility] Medication administered onsite calcium polycarbophil 625 MG Oral Tablet polycarbophil (FIBERCON) tablet 625 mg polycarbophil (FIBERCON) tablet 625 mg 04/06/2019 09:00:00 AM EST 6 25 mg Oral active 625 mg, Oral, D aily Standard, First dose on Thu04/06/19 at 0900, For 30 days [facility] Medication administered onsite carvedilol 6.25 MG Oral Tablet carvedilol (COREG) tabl et 12.5 mg carvedilol (COREG) tablet 12.5 mg 04/06/2019 09:00:00 AM EST 12.5 mg Oral active 12.5 mg, Oral, 2 Times Daily, First dose on Thu04/06/19 at 0900, For 30 days
Check vital signs before administering
[facility] Medication administered onsite 24 HR Isosorbide Mononitrate 30 MG Exten ded Release Oral Tablet isosorbide mononitrate (IMDUR) 24 hr tablet 60 mg isosorbide mononitrate (IMDUR) 24 hr tablet 60 mg 04/06/2019 09:00:00 AM EST 60 mg Oral activ e 60 mg, Oral, Daily Standard, First dose on Thu04/06/19 at 0900, For 30 days
DO NOT CRUSH/CHEW
[facility] Medication administered onsite lidocaine (XYLOCAINE) 2 % injection 10 mL [id number] 04/06/2019 08:30:00 AM EST 10 mL Infiltration completed 1 0 mL, Infiltration, Once, Thu04/06/19 at 0830, For 1 dose [facility] Medication administered onsite Insulin Lispro [...] Summary or Summary Report within the ED.
[facility] Medication administered onsite 28 ACTUAT tiotropium 0.0025 MG/ACTUAT Me tered Dose Inhaler tiotropium (SPIRIVA RESPIMAT) inhalation spray 2 puff tiotropium (SPIRIVA RESPIMAT) inhalation spray 2 puff 04/06/2019 08:00:00 AM EST 2 {puff} Inhalation acti ve 2 puff, Inhalation, Daily RT, First dose on Thu04/06/19 at 0800, For 30 days [facility] Medication administered onsite Furosemide 20 MG Oral Tablet furosemide (LASIX) tablet 40 mg furosemide (LASIX) tablet 40 mg 04/06/2019 03:15:00 AM EST 40 mg Oral abort ed 40 mg, Oral, Daily Standard, First dose (after last modification) on Thu04/06/19 at 0315, For 30 days [facility] Medication administered onsite calcium gluconate in NaCl 0.9 % infusion 1 g/50 mL [id number] 04/06/2019 03:15:00 AM EST 1 g Intravenous completed 1 g, Intravenous, Administer over 1 Hours, Once, Thu04/06/19 at 0315, For 1 dose
1 g calcium gluconate = 90 mg elemental Ca++ = 4.5 mEq Ca++. Dosed on mg of calcium gluconate.
[facility] Medication administered onsite albuterol (PROVENTIL HFA;VENTOLIN HFA) inhaler 2 puff [id number] 04/05/2019 11:50:41 PM EST 2 {puff} Inhalation active 2 puff, Inhalation, Every 4 hours PRN, Wheezing, Shortness of Breath, Starting Thu04/05/19 at 2350, For 4 days 9 hours
Shake the inhaler well before each spray.
[facility] Medication administered onsite dextrose 50 % IV solution 25 mL [id number] 04/05/2019 11:46:[address] 25 mL Intravenous active 25 mL, Intrav enous, PRN, Other, blood glucose <55, Starting Thu04/05/19 at 2346, For 30 days
Not for midline administration.
[facility] Medication administered onsite Glucose 0.4 MG/MG Oral Gel glucose (GLUTOSE) 40 % oral gel 15 g glucose (GLUTOSE) 40 % oral gel 15 g 04/05/2019 11:46:06 PM EST 15 g Oral active 15 g, Oral, PRN, Low blood s ugar, for gluose 55-69 mg/dl and able to take PO, Starting Thu04/05/19 at 2346, For 30 days [facility] Medication administered onsite Glucagon 1 MG Injection glucagon (human recombinant) ( GLUCAGEN) injection 1 mg glucagon (human recombinant) (GLUCAGEN) injection 1 mg 04/05/2019 11:46:06 PM EST 1 mg Intramuscular active 1 mg, Intramuscular, PRN, for glucose <55 without IV access, Starting Thu04/05/19 at 2346, For 30 days [facility] Medication administered onsite Spironolactone 50 MG Oral Tablet spironolactone (ALDAC TONE) 50 MG tablet spironolactone (ALDACTONE) 50 MG tablet 04/16/2016 12:00:00 AM EST 50 mg Oral aborted Take 1 tablet (50 mg tota l) by mouth daily [facility] Hydralazine Hydrochloride 100 MG Oral Ta blet hydrALAZINE (APRESOLINE) 100 MG tablet hydrALAZINE (APRESOLINE) 100 MG tablet 50 mg Oral aborted Take 50 mg by mouth 2 (two) times a day [facility] Aspirin 81 MG Delayed Release Oral Tablet aspirin EC 8 1 MG EC tablet aspirin EC 81 MG EC tablet 81 mg Oral aborted Take 81 mg by mouth daily [facility] albuterol (PROVENTIL HFA;VENTOLIN HFA) 108 (90 BASE) MCG/[place]ale r [id number] 2 {puff} Inhalation aborted Inhale 2 puffs every 4 (four) hours as needed for wheezing or shortness of breath [facility] Acetaminophen 500 MG Oral Tablet Acetaminophen 500 MG Oral Tablet (TYLENOL) Acetaminophen 500 MG Oral Tablet (TYLENOL) 1000 mg Oral aborted Take 1,000 mg by mouth every 6 (six) hours as needed for Pain [facility] clopidogrel 75 MG Oral Tablet clopidogrel (PLAVIX) 75 MG tablet clopidogrel (PLAVIX) 75 MG tablet 75 mg Oral aborted Ta ke 75 mg by mouth daily [facility] Furosemide 40 MG Oral Tablet Furosemide 40 MG Oral Tab let (LASIX) Furosemide 40 MG Oral Tablet (LASIX) 40 mg Oral aborted Take 40 mg by mouth Two Times Daily [facility] Basaglar KwikPen 100 UNIT/ML Subcutaneou s Solution Pen-injector (insulin glargine) 7529-0782-28 30 U Subcutaneous aborted Inject 30 Units into the skin nightly [facility] Acyclovir 400 MG Oral Tablet Acyclovir 400 MG Oral Tab let (ZOVIRAX) Acyclovir 400 MG Oral Tablet (ZOVIRAX) 400 mg Oral aborted Take 400 mg by mouth Two Times Daily [facility] Inqovi 35-100 MG Oral Tablet (Decitabine-Cedazuridine) [address]-1 1 {tbl} Oral aborted Take 1 tablet by mouth daily for 5 days every 28 day cycle. [facility] Insurance Providers Payer name Policy type / Coverage type Policy ID Covered constitution party ID Covered constitution party's relationship to wiseman Policy Wiseman Plan Information MEDICARE [id number] SP [id number] [facility] [id number] SP [id number] [facility] [id number] SP [id number] MEDICARE PART A -O/P [id number] MEDICARE A [id number] Self [id number] MVP I [id number] Self [id number] MEDICAID [id number] MEDICARE [id number] Shira [id number] [facility] MEDICAID [id number] Shira [id number] [facility] 020/520 [id number] SP [id number] [facility] HEALTH CARE O [id number] S [id number] ANSI-Commercial [id number] ANSI-Not a Secondary Insurance [id number] ANSI-Not a Secondary Insurance [id number] ANSI-Commercial [id number] ANSI-Not a Secondary Insurance [id number] ANSI-Commercial [id number] [facility] Health Maintenance Organization (O) [id number] Self [id number] ANSI-Commercial [id number] ANSI-Not a Secondary Insurance [id number] ANSI-Not a Secondary Insurance [id number] ANSI-Commercial [id number] ANSI-Not a Secondary Insurance [id number] ANSI-Commercial [id number] ANSI-Not a Secondary Insurance [id number] ANSI-Commercial [id number] ANSI-Commercial [id number] ANSI-Not a Secondary Insurance [id number] ANSI-Commercial [id number] ANSI-Not a Secondary Insurance [id number] ANSI-Not a Secondary Insurance [id number] ANSI-Commercial [id number] ANSI-Commercial [id number] ANSI-Not a Secondary Insurance [id number] MVP MEDICAID PI PI ANSI-Commercial [id number] ANSI-Not a Secondary Insurance [id number] ANSI-Commercial [id number] ANSI-Not a Secondary Insurance [id number] ANSI-Not a Secondary Insurance [id number] ANSI-Commercial [id number] ANSI-Commercial [id number] ANSI-Not a Secondary Insurance [id number] ANSI-Commercial [id number] ANSI-Not a Secondary Insurance [id number] [employer] [place] 020 [id number] SP [id number] [employer] [place] [id number] SP [id number] [place]/307 [id number] SP [id number] [employer] [employer] B [id number] S W [id number] [employer] [place] P[place]/307 [id number] SP [id number] [employer] [place]/307 [id number] SP [id number] [employer] [id number] Shira W [id number] [employer] [place] P[place]/307 [id number] SP [id number] [employer] [place]/307 [id number] SP [id number] [employer] [place] P[place]/307 [id number] SP [id number] [employer] [place] [id number] SP [id number] Problems, Conditions, and Diagnoses Code Display Name Description Problem Type Effective Dates Data Source(s) N18.4 [id number] CKD (chronic kidney disease) stage 4, GFR 15-29 ml/min Problem 12/23/2019 12:00:00 AM EST eCW1 ([facility]) I65.23 [id number] Bilateral carotid artery stenosis Prob elaine 12/23/2019 12:00:00 AM EST eCW1 ([facility]) I50.30 072848314 Diastolic CHF with p reserved left ventricular function, NYHA class 2 Problem 12/23/2019 12:00:00 AM EST eCW1 ([facility]) Z95.810 Automatic implantable cardiac defibrilla tor in situ History of implantable cardioverter-defibrillator (ICD) placement Problem 12/23/2019 12:00:00 AM EST eCW1 ([facility]) Z98.61 886480442 Coronary angioplasty status Problem 12/23/19 12:00:00 AM EST eCW1 ([facility]) I10 01635802 Essential hypertension Problem 12/23/2019 12 :00:00 AM EST eCW1 ([facility]) C93.10 CMML (chronic myelomonocytic leukemia) C MML (chronic myelomonocytic leukemia) 33262430 12/21/2019 12:00:00 AM EST [facility] Z98.61 Coronary angioplasty status Coronary angioplasty statu s [id number] 12/21/2019 12:00:00 AM [facility] E78.5 Hyperlipidemia Hyperlipidemia 05818920 12/21/2019 12:00: 00 AM [facility] I50.9 Congestive heart failure Congestive heart failure 6457 2001 12/21/2019 12:00:00 AM [facility] D69.6 858467383 Thrombocytopenia Problem 06/07/2019 12:00:00 AM EDT eCW1 ([facility]) D69.6 399303868 Thrombocytopenia Problem 06/07/2019 12:00:00 AM EDT eCW1 ([facility]) C93.10 900157359 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 Problem 05/27/2019 12:00:00 AM EDT eCW1 ([facility]) C93.10 208882062 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 Problem 05/27/2019 12:00:00 AM EDT eCW1 ([facility]) D61.82 1167846 Leukoerythroblastic anemia Problem 0 12:00:00 AM EDT eCW1 ([facility]) D61.82 7374741 Leukoerythroblastic anemia Problem 0 12:00:00 AM EDT eCW1 ([facility]) 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 Diagnosis 03/08/2020 03:31:00 PM [facility] acute leukemia acute leukemia Diagnosis 03/06/2020 10:19: 00 PM [facility] I65.23 Occlusion and stenosis of bilateral schultz tid arteries Occlusion and stenosis of bilateral schultz Diagnosis 12/21/2019 12:37:59 PM [facility] Z95.810 Presence of automatic (implantable) card iac defibrillator Presence of automatic (implantable) card Diagnosis 12/21/2019 12:37:59 PM [facility] Z98.61 Coronary angioplasty status Coronary angioplasty statu s Diagnosis 12/21/2019 12:37:59 PM [facility] Leukoerythroblastosis Rule out Leukemia Leukoerythroblastosis Rule out Leukemia Diagnosis 04/03/2019 01:55:00 PM [facility] Surgeries/Procedures Procedure Description Date Indications Data Source(s) BLOOD COUNT PLATELET AUTOMATED PLATELET COUNT Routine 021 3:41 PM EST 03/18/2020 03:41:00 PM [facility] TRANSFUSE PLATELET HLA MATCHED (ONCE) TRANSFUSE PLATELET HL A MATCHED (ONCE) Routine 03/18/2020 3:25 PM EST 03/18/2020 03:25:49 PM [facility] POCT GLUCOSE, DOCKED POCT GLUCOSE, DOCKED Routine 03/18/2020 11:46 AM EST 03/18/2020 11:46:00 AM [facility] PREPARE HLA PLATELET MATCHED PREPARE HLA PLATELET MATCHED Lili ne 03/18/2020 9:41 AM EST 03/18/2020 09:41:00 AM [facility] BLOOD COUNT COMPLETE AUTOMATED CBC Routine 03/18/2020 9:01 A M EST 03/18/2020 09:01:00 AM [facility] TRANSFUSE RBC (ONCE) TRANSFUSE RBC (ONCE) STAT 03/18/2020 7:58 AM EST 03/18/2020 07:58:19 AM [facility] POCT GLUCOSE, DOCKED POCT GLUCOSE, DOCKED Routine 03/18/2020 7:37 AM EST 03/18/2020 07:37:00 AM [facility] BLOOD COUNT COMPLETE AUTO&AUTO DIFRNTL WBC COUNT CBC AND DIFFER ENTIAL Routine 03/18/2020 1:12 AM EST 03/18/2020 01:12:00 AM [facility] PHOSPHORUS INORGANIC PHOSPHORUS LEVEL Routine 03/18/2020 1:[address] 03/18/2020 01:12:00 AM [facility] MAGNESIUM MAGNESIUM LEVEL Routine 03/18/2020 1:12 AM EST 03/18/2020 01:12:00 AM [facility] BASIC METABOLIC PANEL CALCIUM TOTAL BASIC METABOLIC PANEL Routi ne 03/18/2020 1:12 AM EST 03/18/2020 01:12:00 AM [facility] GLUCOSE QUANTITATIVE BLOOD XCPT REAGENT STRIP POCT GLUCOSE, DOC KED Routine 03/17/2020 9:14 PM EST 03/17/2020 09:14:00 PM [facility] GLUCOSE QUANTITATIVE BLOOD XCPT REAGENT STRIP POCT GLUCOSE, DOC KED Routine 03/17/2020 4:43 PM EST 03/17/2020 04:43:00 PM [facility] BLOOD COUNT PLATELET AUTOMATED PLATELET COUNT Routine 021 4:03 PM EST 03/17/2020 04:03:00 PM [facility] TRANSFUSE PLATELET HLA MATCHED (ONCE) TRANSFUSE PLATELET HL A MATCHED (ONCE) Routine 03/17/2020 3:32 PM EST 03/17/2020 03:32:15 PM [facility] GLUCOSE QUANTITATIVE BLOOD XCPT REAGENT STRIP POCT GLUCOSE, DOC KED Routine 03/17/2020 11:33 AM EST 03/17/2020 11:33:00 AM [facility] TRANSFUSE RBC (ONCE) TRANSFUSE RBC (ONCE) STAT 03/17/2020 11:27 AM EST 03/17/2020 11:27:56 AM [facility] PREPARE HLA PLATELET MATCHED PREPARE HLA PLATELET MATCHED Routi ne 03/17/2020 10:25 AM EST 03/17/2020 10:25:00 AM [facility] GLUCOSE QUANTITATIVE BLOOD XCPT REAGENT STRIP POCT GLUCOSE, DOC KED Routine 03/17/2020 7:36 AM EST 03/17/2020 07:36:00 AM [facility] XR CHEST FRONTAL ONLY 36202 XR CHEST FRONTAL ONLY [id number] Routine 03/17/2020 3:22 AM EST 03/17/2020 03:22:00 AM [facility] URNLS DIP STICK/TABLET REAGENT AUTO MICROSCOPY URINALYSIS W ITH MICROSCOPIC Routine 03/17/2020 1:08 AM EST 03/17/2020 01:08:00 AM [facility] BLOOD COUNT COMPLETE AUTOMATED CBC AND DIFFERENTIAL Routine 03/17/2020 1:08 AM EST 03/17/2020 01:08:00 AM [facility] BLOOD TYPING ABO TYPE AND SCREEN Routine 03/17/2020 1:08 AM EST 03/17/2020 01:08:00 AM [facility] PHOSPHORUS INORGANIC PHOSPHORUS LEVEL Routine 03/17/2020 1:[address] 03/17/2020 01:08:00 AM [facility] MAGNESIUM MAGNESIUM LEVEL Routine 03/17/2020 1:08 AM EST 03/17/2020 01:08:00 AM [facility] BASIC METABOLIC PANEL CALCIUM TOTAL BASIC METABOLIC PANEL Routi ne 03/17/2020 1:08 AM EST 03/17/2020 01:08:00 AM [facility] CULTURE BACTERIAL BLOOD AEROBIC W/ID ISOLATES BLOOD CULTURE R outine 03/17/2020 1:00 AM EST 03/17/2020 01:00:00 AM [facility] CULTURE BACTERIAL BLOOD AEROBIC W/ID ISOLATES BLOOD CULTURE R outine 03/17/2020 1:00 AM EST 03/17/2020 01:00:00 AM [facility] CULTURE BACTERIAL BLOOD AEROBIC W/ID ISOLATES BLOOD CULTURE R outine 03/17/2020 1:00 AM EST 03/17/2020 01:00:00 AM [facility] GLUCOSE QUANTITATIVE BLOOD XCPT REAGENT STRIP POCT GLUCOSE, DOC CLAUDIOD Routine 03/16/2020 9:56 PM EST 03/16/2020 09:56:00 PM [facility] GLUCOSE QUANTITATIVE BLOOD XCPT REAGENT STRIP POCT GLUCOSE, DOC KED Routine 03/16/2020 4:28 PM EST 03/16/2020 04:28:00 PM [facility] GLUCOSE QUANTITATIVE BLOOD XCPT REAGENT STRIP POCT GLUCOSE, DOC KED Routine 03/16/2020 11:29 AM EST 03/16/2020 11:29:00 AM [facility] GLUCOSE QUANTITATIVE BLOOD XCPT REAGENT STRIP POCT GLUCOSE, DOC KED Routine 03/16/2020 8:01 AM EST 03/16/2020 08:01:00 AM [facility] BLOOD COUNT COMPLETE AUTOMATED CBC AND DIFFERENTIAL Routine 03/16/2020 12:25 AM EST 03/16/2020 12:25:00 AM [facility] PHOSPHORUS INORGANIC PHOSPHORUS LEVEL Routine 03/16/2020 12:[address] 03/16/2020 12:25:00 AM [facility] MAGNESIUM MAGNESIUM LEVEL Routine 03/16/2020 12:25 AM EST 03/16/2020 12:25:00 AM [facility] BASIC METABOLIC PANEL CALCIUM TOTAL BASIC METABOLIC PANEL Routi ne 03/16/2020 12:25 AM EST 03/16/2020 12:25:00 AM [facility] GLUCOSE QUANTITATIVE BLOOD XCPT REAGENT STRIP POCT GLUCOSE, DOC KED Routine 03/15/2020 10:02 PM EST 03/15/2020 10:02:00 PM [facility] GLUCOSE QUANTITATIVE BLOOD XCPT REAGENT STRIP POCT GLUCOSE, DOC KED Routine 03/15/2020 4:28 PM EST 03/15/2020 04:28:00 PM [facility] BLOOD COUNT COMPLETE AUTOMATED CBC AND DIFFERENTIAL Timed 03/15/2020 11:48 AM EST 03/15/2020 11:48:00 AM [facility] GLUCOSE QUANTITATIVE BLOOD XCPT REAGENT STRIP POCT GLUCOSE, DOC KED Routine 03/15/2020 11:42 AM EST 03/15/2020 11:42:00 AM [facility] GLUCOSE QUANTITATIVE BLOOD XCPT REAGENT STRIP POCT GLUCOSE, DOC KED Routine 03/15/2020 7:53 AM EST 03/15/2020 07:53:00 AM [facility] BLOOD COUNT COMPLETE AUTOMATED CBC AND DIFFERENTIAL Timed 03/15/2020 12:16 AM EST 03/15/2020 12:16:00 AM [facility] PHOSPHORUS INORGANIC PHOSPHORUS LEVEL Routine 03/15/2020 12:[address] 03/15/2020 12:16:00 AM [facility] MAGNESIUM MAGNESIUM LEVEL Routine 03/15/2020 12:16 AM EST 03/15/2020 12:16:00 AM [facility] BASIC METABOLIC PANEL CALCIUM TOTAL BASIC METABOLIC PANEL Routi ne 03/15/2020 12:16 AM EST 03/15/2020 12:16:00 AM [facility] GLUCOSE QUANTITATIVE BLOOD XCPT REAGENT STRIP POCT GLUCOSE, DOC KED Routine 03/14/2020 11:00 PM EST 03/14/2020 11:00:00 PM [facility] TRANSFUSE RBC (ONCE) TRANSFUSE RBC (ONCE) STAT 03/14/2020 10:00 PM EST 03/14/2020 10:00:04 PM [facility] TRANSFUSE PLATELET HLA MATCHED (ONCE) TRANSFUSE PLATELET HL A MATCHED (ONCE) Routine 03/14/2020 7:47 PM EST 03/14/2020 07:47:03 PM [facility] GLUCOSE QUANTITATIVE BLOOD XCPT REAGENT STRIP POCT GLUCOSE, DOC KED Routine 03/14/2020 4:35 PM EST 03/14/2020 04:35:00 PM [facility] BLOOD COUNT COMPLETE AUTOMATED CBC AND DIFFERENTIAL Timed 03/14/2020 4:03 PM EST 03/14/2020 04:03:00 PM [facility] GLUCOSE QUANTITATIVE BLOOD XCPT REAGENT STRIP POCT GLUCOSE, DOC KED Routine 03/14/2020 3:04 PM EST 03/14/2020 03:04:00 PM [facility] UPPER GI ENDOSCOPY W/CONTROL, BLEEDING, ANY METHOD UP PER GI ENDOSCOPY W/CONTROL, BLEEDING, ANY METHOD 03/14/2020 2:06 PM EST GI bleeding -possibly Small GI bleeding 03/14/2020 02: 06:00 PM EST - 03/14/2020 03:18:00 PM [facility] SMALL INTESTINAL ENDO/ENTEROSCOPY, > 2ND PORTION DUODENUM, NOT W/ILEUM DX W/WO SPECIMEN (SEP PROC) SMALL INTESTINAL ENDO/ENTEROSCOPY, > 2ND PORTION DUODENUM, NOT W/ILEUM DX W/WO SPECIMEN (SEP PROC) 03/14/2020 2:06 PM EST GI bleeding -possibly Small GI bleeding 03/14/2020 02: 06:00 PM EST - 03/14/2020 03:18:00 PM [facility] GLUCOSE QUANTITATIVE BLOOD XCPT REAGENT STRIP POCT GLUCOSE, DOC KED Routine 03/14/2020 11:40 AM EST 03/14/2020 11:40:00 AM [facility] GLUCOSE QUANTITATIVE BLOOD XCPT REAGENT STRIP POCT GLUCOSE, DOC KED Routine 03/14/2020 7:55 AM EST 03/14/2020 07:55:00 AM [facility] PREPARE HLA PLATELET MATCHED PREPARE HLA PLATELET MATCHED Lili ramirez 03/14/2020 5:22 AM EST 03/14/2020 05:22:00 AM [facility] BLOOD COUNT PLATELET AUTOMATED PLATELET COUNT Routine 021 4:58 AM EST 03/14/2020 04:58:00 AM [facility] TRANSFUSE PLATELET HLA MATCHED (ONCE) TRANSFUSE PLATELET HL A MATCHED (ONCE) Routine 03/14/2020 4:11 AM EST 03/14/2020 04:11:05 AM [facility] BLOOD COUNT COMPLETE AUTOMATED CBC AND DIFFERENTIAL Timed 03/14/2020 12:29 AM EST 03/14/2020 12:29:00 AM [facility] PHOSPHORUS INORGANIC PHOSPHORUS LEVEL Routine 03/14/2020 12:[address] 03/14/2020 12:29:00 AM [facility] MAGNESIUM MAGNESIUM LEVEL Routine 03/14/2020 12:29 AM EST 03/14/2020 12:29:00 AM [facility] BASIC METABOLIC PANEL CALCIUM TOTAL BASIC METABOLIC PANEL Routi ne 03/14/2020 12:29 AM EST 03/14/2020 12:29:00 AM [facility] SMALL BOWEL ENTEROSCOPY SMALL BOWEL ENTEROSCOPY 03/14/2020 12:00 AM EST 03/14/2020 12:00:00 AM [facility] GLUCOSE QUANTITATIVE BLOOD XCPT REAGENT STRIP POCT GLUCOSE, DOC KED Routine 03/13/2020 9:29 PM EST 03/13/2020 09:29:00 PM [facility] CULTURE BACTERIAL BLOOD AEROBIC W/ID ISOLATES BLOOD CULTURE R outine 03/13/2020 8:41 PM EST 03/13/2020 08:41:00 PM [facility] CULTURE BACTERIAL BLOOD AEROBIC W/ID ISOLATES BLOOD CULTURE R outine 03/13/2020 8:27 PM EST 03/13/2020 08:27:00 PM [facility] CULTURE BACTERIAL BLOOD AEROBIC W/ID ISOLATES BLOOD CULTURE R outine 03/13/2020 8:25 PM EST 03/13/2020 08:25:00 PM [facility] URNLS DIP STICK/TABLET REAGENT AUTO MICROSCOPY URINALYSIS W ITH MICROSCOPIC Routine 03/13/2020 8:25 PM EST 03/13/2020 08:25:00 PM [facility] XR CHEST FRONTAL ONLY [id number] XR CHEST FRONTAL ONLY [id number] Routine 03/13/2020 8:09 PM EST 03/13/2020 08:09:06 PM [facility] GLUCOSE QUANTITATIVE BLOOD XCPT REAGENT STRIP POCT GLUCOSE, DOC KED Routine 03/13/2020 4:34 PM EST 03/13/2020 04:34:00 PM [facility] PREPARE HLA PLATELET MATCHED PREPARE HLA PLATELET MATCHED Routi ne 03/13/2020 2:24 PM EST 03/13/2020 02:24:00 PM [facility] LAB RESULTS (OUTSIDE/HISTORICAL) LAB RESULTS (OUTSIDE/HISTORICA L) 03/13/2020 1:03 PM EST 03/13/2020 01:03:31 PM [facility] GLUCOSE QUANTITATIVE BLOOD XCPT REAGENT STRIP POCT GLUCOSE, DOC KED Routine 03/13/2020 11:38 AM EST 03/13/2020 11:38:00 AM [facility] BLOOD COUNT COMPLETE AUTOMATED CBC AND DIFFERENTIAL Timed 03/13/2020 10:19 AM EST 03/13/2020 10:19:00 AM [facility] GLUCOSE QUANTITATIVE BLOOD XCPT REAGENT STRIP POCT GLUCOSE, DOC KED Routine 03/13/2020 7:41 AM EST 03/13/2020 07:41:00 AM [facility] TRANSFUSE RBC (ONCE) TRANSFUSE RBC (ONCE) Routine 03/13/2020 3:50 AM EST 03/13/2020 03:50:39 AM [facility] PHOSPHORUS INORGANIC PHOSPHORUS LEVEL Routine 03/13/2020 1:[address] 03/13/2020 01:35:00 AM [facility] MAGNESIUM MAGNESIUM LEVEL Routine 03/13/2020 1:35 AM EST 03/13/2020 01:35:00 AM [facility] BASIC METABOLIC PANEL CALCIUM TOTAL BASIC METABOLIC PANEL Routi ne 03/13/2020 1:35 AM EST 03/13/2020 01:35:00 AM [facility] PREPARE PLATELET PHERESIS PREPARE PLATELET PHERESIS Routine 03/13/2020 12:04 AM EST 03/13/2020 12:04:00 AM [facility] BLOOD COUNT COMPLETE AUTO&AUTO DIFRNTL WBC COUNT CBC AND DIFFER ENTIAL Timed 03/12/2020 10:07 PM EST 03/12/2020 10:07:00 PM [facility] TRANSFUSE PLATELET PHERESIS (ONCE) TRANSFUSE PLATELET PHERESIS (ONCE) Routine 03/12/2020 9:40 PM EST 03/12/2020 09:40:45 PM [facility] GLUCOSE QUANTITATIVE BLOOD XCPT REAGENT STRIP POCT GLUCOSE, DOC KED Routine 03/12/2020 9:17 PM EST 03/12/2020 09:17:00 PM [facility] TRANSFUSE RBC (ONCE) TRANSFUSE RBC (ONCE) STAT 03/12/2020 5:23 PM EST 03/12/2020 05:23:27 PM [facility] GLUCOSE QUANTITATIVE BLOOD XCPT REAGENT STRIP POCT GLUCOSE, DOC KED Routine 03/12/2020 4:42 PM EST 03/12/2020 04:42:00 PM [facility] PREPARE PLATELET PHERESIS PREPARE PLATELET PHERESIS Routine 03/12/2020 3:56 PM EST 03/12/2020 03:56:00 PM [facility] BLOOD COUNT PLATELET AUTOMATED PLATELET COUNT Routine 021 2:57 PM EST 03/12/2020 02:57:00 PM [facility] TRANSFUSE PLATELET PHERESIS (ONCE) TRANSFUSE PLATELET PHERESIS (ONCE) Routine 03/12/2020 2:45 PM EST 03/12/2020 02:45:05 PM [facility] GLUCOSE QUANTITATIVE BLOOD XCPT REAGENT STRIP POCT GLUCOSE, DOC KED Routine 03/12/2020 12:21 PM EST 03/12/2020 12:21:00 PM [facility] ACUTE GASTROINTESTINAL BLOOD LOSS IMAGING NM GI BLOOD LOSS IMAGING [id number] Routine 03/12/2020 11:58 AM EST 03/12/2020 11:58:33 AM [facility] SERUM SCREENING % REACTIVE ANTIBODY QUICK METH HLA ANTIBODY ID SCREEN Routine 03/12/2020 9:31 AM EST 03/12/2020 09:31:00 AM [facility] PREPARE PLATELET PHERESIS PREPARE PLATELET PHERESIS Routine 03/12/2020 8:52 AM EST 03/12/2020 08:52:00 AM [facility] GLUCOSE QUANTITATIVE BLOOD XCPT REAGENT STRIP POCT GLUCOSE, DOC KED Routine 03/12/2020 7:43 AM EST 03/12/2020 07:43:00 AM [facility] BLOOD COUNT COMPLETE AUTOMATED CBC AND DIFFERENTIAL Timed 03/12/2020 5:07 AM EST 03/12/2020 05:07:00 AM [facility] PHOSPHORUS INORGANIC PHOSPHORUS LEVEL Routine 03/12/2020 5:[address] 03/12/2020 05:07:00 AM [facility] MAGNESIUM MAGNESIUM LEVEL Routine 03/12/2020 5:07 AM EST 03/12/2020 05:07:00 AM [facility] COMPREHENSIVE METABOLIC PANEL COMPREHENSIVE METABOLIC PANEL Eduardo ed 03/12/2020 5:07 AM EST 03/12/2020 05:07:00 AM [facility] TRANSFUSE RBC (ONCE) TRANSFUSE RBC (ONCE) STAT 03/11/2020 10:51 PM EST 03/11/2020 10:51:10 PM [facility] GLUCOSE QUANTITATIVE BLOOD XCPT REAGENT STRIP POCT GLUCOSE, DOC SAMANTHA Routine 03/11/2020 9:35 PM EST 03/11/2020 09:35:00 PM [facility] BLOOD COUNT COMPLETE AUTOMATED CBC AND DIFFERENTIAL Timed 03/11/2020 4:45 PM EST 03/11/2020 04:45:00 PM [facility] GLUCOSE QUANTITATIVE BLOOD XCPT REAGENT STRIP POCT GLUCOSE, DOC SAMANTHA Routine 03/11/2020 4:34 PM EST 03/11/2020 04:34:00 PM [facility] TRANSFUSE PLATELET PHERESIS (ONCE) TRANSFUSE PLATELET PHERESIS (ONCE) Routine 03/11/2020 4:09 PM EST 03/11/2020 04:09:58 PM [facility] PREPARE PLATELET PHERESIS PREPARE PLATELET PHERESIS Routine 03/11/2020 1:56 PM EST 03/11/2020 01:56:00 PM [facility] BLOOD OCCULT PEROXIDASE ACTV QUAL FECES 1 DETER FECAL OCCULT BLOOD, UPPER GI (HEMOCCULT-SENSA) Routine 03/11/2020 11:49 AM EST 03/11/2020 11:49:00 AM [facility] GLUCOSE QUANTITATIVE BLOOD XCPT REAGENT STRIP POCT GLUCOSE, DOC SAMANTHA Routine 03/11/2020 11:40 AM EST 03/11/2020 11:40:00 AM [facility] GLUCOSE QUANTITATIVE BLOOD XCPT REAGENT STRIP POCT GLUCOSE, DOC KEJair Routine 03/11/2020 7:37 AM EST 03/11/2020 07:37:00 AM [facility] TRANSFUSE RBC (ONCE) TRANSFUSE RBC (ONCE) STAT 03/11/2020 3:12 AM EST 03/11/2020 03:12:46 AM [facility] BLOOD TYPING ABO TYPE AND SCREEN STAT 03/11/2020 1:20 AM EST 03/11/2020 01:20:00 AM [facility] CULTURE BCT ISOL&PRSMPTV ID ISOLATE EA URINE URINE CULTURE Ro utine 03/11/2020 12:44 AM EST 03/11/2020 12:44:00 AM [facility] BLOOD COUNT COMPLETE AUTOMATED CBC AND DIFFERENTIAL Routine 03/11/2020 12:28 AM EST 03/11/2020 12:28:00 AM [facility] PHOSPHORUS INORGANIC PHOSPHORUS LEVEL Routine 03/11/2020 12:[address] 03/11/2020 12:28:00 AM [facility] MAGNESIUM MAGNESIUM LEVEL Routine 03/11/2020 12:28 AM EST 03/11/2020 12:28:00 AM [facility] DRUG SCREEN QUALITATIVE VANCOMYCIN VANCOMYCIN, RANDOM Routine 03/11/2020 12:28 AM EST 03/11/2020 12:28:00 AM [facility] BASIC METABOLIC PANEL CALCIUM TOTAL BASIC METABOLIC PANEL Timed 03/11/2020 12:28 AM EST 03/11/2020 12:28:00 AM [facility] GLUCOSE QUANTITATIVE BLOOD XCPT REAGENT STRIP POCT GLUCOSE, DOC KED Routine 03/10/2020 9:05 PM EST 03/10/2020 09:05:00 PM [facility] CUL PRSMPTV PTHGNC ORGANISM SCRN W/COLONY ESTIMJ MRSA CULTURE Routine 03/10/2020 7:05 PM EST 03/10/2020 07:05:00 PM [facility] XR CHEST FRONTAL ONLY [id number] XR CHEST FRONTAL ONLY [id number] Routine 03/10/2020 6:51 PM EST 03/10/2020 06:51:54 PM [facility] CULTURE BACTERIAL BLOOD AEROBIC W/ID ISOLATES BLOOD CULTURE R outine 03/10/2020 6:45 PM EST 03/10/2020 06:45:00 PM [facility] CULTURE BACTERIAL BLOOD AEROBIC W/ID ISOLATES BLOOD CULTURE R outine 03/10/2020 6:45 PM EST 03/10/2020 06:45:00 PM [facility] GLUCOSE QUANTITATIVE BLOOD XCPT REAGENT STRIP POCT GLUCOSE, DOC KED Routine 03/10/2020 4:57 PM EST 03/10/2020 04:57:00 PM [facility] TRANSFUSE RBC (ONCE) TRANSFUSE RBC (ONCE) STAT 03/10/2020 1:38 PM EST 03/10/2020 01:38:04 PM [facility] GLUCOSE QUANTITATIVE BLOOD XCPT REAGENT STRIP POCT GLUCOSE, DOC KED Routine 03/10/2020 11:26 AM EST 03/10/2020 11:26:00 AM [facility] BLOOD COUNT PLATELET AUTOMATED PLATELET COUNT Routine 9:00 AM EST 03/10/2020 09:00:00 AM [facility] TRANSFUSE PLATELET PHERESIS (ONCE) TRANSFUSE PLATELET PHERESIS (ONCE) Routine 03/10/2020 8:47 AM EST 03/10/2020 08:47:13 AM [facility] GLUCOSE QUANTITATIVE BLOOD XCPT REAGENT STRIP POCT GLUCOSE, DOC KED Routine 03/10/2020 7:54 AM EST 03/10/2020 07:54:00 AM [facility] PREPARE PLATELET PHERESIS PREPARE PLATELET PHERESIS Routine 03/10/2020 2:17 AM EST 03/10/2020 02:17:00 AM [facility] BLOOD COUNT COMPLETE AUTOMATED CBC AND DIFFERENTIAL Routine 03/10/2020 12:23 AM EST 03/10/2020 12:23:00 AM [facility] PHOSPHORUS INORGANIC PHOSPHORUS LEVEL Routine 03/10/2020 12:[address] 03/10/2020 12:23:00 AM [facility] MAGNESIUM MAGNESIUM LEVEL Routine 03/10/2020 12:23 AM EST 03/10/2020 12:23:00 AM [facility] BASIC METABOLIC PANEL CALCIUM TOTAL BASIC METABOLIC PANEL Timed 03/10/2020 12:23 AM EST 03/10/2020 12:23:00 AM [facility] GLUCOSE QUANTITATIVE BLOOD XCPT REAGENT STRIP POCT GLUCOSE, DOC KED Routine 03/09/2020 9:16 PM EST 03/09/2020 09:16:00 PM [facility] GLUCOSE QUANTITATIVE BLOOD XCPT REAGENT STRIP POCT GLUCOSE, DOC KED Routine 03/09/2020 4:45 PM EST 03/09/2020 04:45:00 PM [facility] BLOOD COUNT COMPLETE AUTOMATED CBC AND DIFFERENTIAL Routine 03/09/2020 11:51 AM EST 03/09/2020 11:51:00 AM [facility] FOLIC ACID SERUM FOLATE Routine 03/09/2020 11:51 AM EST 03/09/2020 11:51:00 AM [facility] GLUCOSE QUANTITATIVE BLOOD XCPT REAGENT STRIP POCT GLUCOSE, DOC KED Routine 03/09/2020 11:32 AM EST 03/09/2020 11:32:00 AM [facility] BLOOD COUNT RETICULOCYTE AUTOMATED RETICULOCYTES Routine 03/09/2020 9:40 AM EST 03/09/2020 09:40:00 AM [facility] CYANOCOBALAMIN VITAMIN B-12 VITAMIN B12 Routine 03/09/2020 9:40 AM EST 03/09/2020 09:40:00 AM [facility] THROMBOPLASTIN TIME PARTIAL PLASMA/WHOLE BLOOD PARTIA L THROMBOPLASTIN TIME (PTT) Routine 03/09/2020 9:40 AM EST 03/09/2020 09:40 :00 AM [facility] PROTHROMBIN TIME PROTIME INR Routine 03/09/2020 9:40 AM EST 03/09/2020 09:40:00 AM [facility] FIBRINOGEN ACTIVITY FIBRINOGEN LEVEL Routine 03/09/2020 9:40 AM ES T 03/09/2020 09:40:00 AM [facility] TRANSFUSE RBC (ONCE) TRANSFUSE RBC (ONCE) STAT 03/09/2020 9:28 AM EST 03/09/2020 09:28:41 AM [facility] GLUCOSE QUANTITATIVE BLOOD XCPT REAGENT STRIP POCT GLUCOSE, DOC KED Routine 03/09/2020 7:45 AM EST 03/09/2020 07:45:00 AM [facility] BLOOD COUNT COMPLETE AUTOMATED CBC Routine 03/09/2020 12:04 A M EST 03/09/2020 12:04:00 AM [facility] PHOSPHORUS INORGANIC PHOSPHORUS LEVEL Routine 03/09/2020 12:[address] 03/09/2020 12:04:00 AM [facility] MAGNESIUM MAGNESIUM LEVEL Routine 03/09/2020 12:04 AM EST 03/09/2020 12:04:00 AM [facility] COMPREHENSIVE METABOLIC PANEL COMPREHENSIVE METABOLIC PANEL Rou mary 03/09/2020 12:04 AM EST 03/09/2020 12:04:00 AM [facility] GLUCOSE QUANTITATIVE BLOOD XCPT REAGENT STRIP POCT GLUCOSE, GLORIA SINGH Routine 03/08/2020 9:28 PM EST 03/08/2020 09:28:00 PM [facility] GLUCOSE QUANTITATIVE BLOOD XCPT REAGENT STRIP POCT GLUCOSE, GLORIA SINGH Routine 03/08/2020 4:40 PM EST 03/08/2020 04:40:00 PM [facility] EKG 12-LEAD - CMAXX REPORT EKG 12-LEAD - CMAXX REPORT 03/08/2020 2:29 PM EST 03/08/2020 02:29:27 PM [facility] EKG 12-LEAD - CMAXX REPORT EKG 12-LEAD - CMAXX REPORT 03/08/2020 2:29 PM EST 03/08/2020 02:29:27 PM [facility] EKG 12-LEAD EKG 12-LEAD Routine 03/08/2020 2:29 PM EST 03/08/2020 02:29:27 PM [facility] BLOOD COUNT COMPLETE AUTOMATED CBC Routine 03/08/2020 11:37 A M EST 03/08/2020 11:37:00 AM [facility] GLUCOSE QUANTITATIVE BLOOD XCPT REAGENT STRIP POCT GLUCOSE, GLORIA SINGH Routine 03/08/2020 11:35 AM EST 03/08/2020 11:35:00 AM [facility] CT ABDOMEN & PELVIS W/O CONTRAST MATERIAL CT ABDOMEN PELVIS WITHOUT CONTRAST [id number] STAT 03/08/2020 9:46 AM EST 03/08/2020 09:46 :31 AM [facility] TRANSFUSE RBC (ONCE) TRANSFUSE RBC (ONCE) STAT 03/08/2020 8:56 AM EST 03/08/2020 08:56:56 AM [facility] GLUCOSE QUANTITATIVE BLOOD XCPT REAGENT STRIP POCT GLUCOSE, GLORIA SINGH Routine 03/08/2020 7:48 AM EST 03/08/2020 07:48:00 AM [facility] TRANSFUSE RBC (ONCE) TRANSFUSE RBC (ONCE) Routine 03/08/2020 2:44 AM EST 03/08/2020 02:44:59 AM [facility] BLOOD COUNT COMPLETE AUTOMATED CBC AND DIFFERENTIAL Routine 03/08/2020 2:30 AM EST 03/08/2020 02:30:00 AM [facility] URIC ACID BLOOD URIC ACID Routine 03/08/2020 2:30 AM EST 03/08/2020 02:30:00 AM [facility] PHOSPHORUS INORGANIC PHOSPHORUS LEVEL Routine 03/08/2020 2:[address] 03/08/2020 02:30:00 AM [facility] MAGNESIUM MAGNESIUM LEVEL Routine 03/08/2020 2:30 AM EST 03/08/2020 02:30:00 AM [facility] LACTATE DEHYDROGENASE LDH LACTATE DEHYDROGENASE Routine 03/08/2020 2:30 AM EST 03/08/2020 02:30:00 AM [facility] HAPTOGLOBIN QUANTITATIVE HAPTOGLOBIN Routine 03/08/2020 2:30 AM ES T 03/08/2020 02:30:00 AM [facility] COMPREHENSIVE METABOLIC PANEL COMPREHENSIVE METABOLIC PANEL Rou mary 03/08/2020 2:30 AM EST 03/08/2020 02:30:00 AM [facility] URNLS DIP STICK/TABLET REAGENT AUTO MICROSCOPY URINAL YSIS WITH REFLEX URINE CULTURE Routine 03/07/2020 9:50 PM EST 03/07/2020 09:50 :00 PM [facility] BLOOD OCCULT FECAL HGB DETER IA QUAL FECES 1-3 FECAL OCCULT BLOOD, LOWER GI (HEMOCCULT-ICT), FIT TESTING, Routine 03/07/2020 9:48 PM EST 03/07/2020 09:48:00 PM [facility] GLUCOSE QUANTITATIVE BLOOD XCPT REAGENT STRIP POCT GLUCOSE, DOC KED Routine 03/07/2020 9:16 PM EST 03/07/2020 09:16:00 PM [facility] BLOOD COUNT COMPLETE AUTOMATED CBC AND DIFFERENTIAL Routine 03/07/2020 8:26 PM EST 03/07/2020 08:26:00 PM [facility] BLOOD TYPING ABO HC BLOOD TYPING;ABO Routine 03/07/2020 8:25 PM ES T 03/07/2020 08:25:00 PM [facility] EKG 12-LEAD - CMAXX REPORT EKG 12-LEAD - CMAXX REPORT 03/07/2020 7:54 PM EST 03/07/2020 07:54:33 PM [facility] EKG 12-LEAD - CMAXX REPORT EKG 12-LEAD - CMAXX REPORT 03/07/2020 7:54 PM EST 03/07/2020 07:54:33 PM [facility] EKG 12-LEAD EKG 12-LEAD Routine 03/07/2020 7:54 PM EST 03/07/2020 07:54:33 PM [facility] EKG 12-LEAD EKG 12-LEAD Routine 03/07/2020 7:54 PM EST 03/07/2020 07:54:33 PM [facility] TRANSFUSE RBC (ONCE) TRANSFUSE RBC (ONCE) Routine 03/07/2020 6:09 PM EST 03/07/2020 06:09:20 PM [facility] TRANSFUSE PLATELET PHERESIS (ONCE) TRANSFUSE PLATELET PHERESIS (ONCE) Routine 03/07/2020 6:06 PM EST 03/07/2020 06:06:59 PM [facility] BLOOD COUNT PLATELET AUTOMATED PLATELET COUNT Routine 021 5:45 PM EST 03/07/2020 05:45:00 PM [facility] GLUCOSE QUANTITATIVE BLOOD XCPT REAGENT STRIP POCT GLUCOSE, DOC KED Routine 03/07/2020 4:45 PM EST 03/07/2020 04:45:00 PM [facility] PREPARE PLATELET PHERESIS PREPARE PLATELET PHERESIS Routine 03/07/2020 12:31 PM EST 03/07/2020 12:31:00 PM [facility] GLUCOSE QUANTITATIVE BLOOD XCPT REAGENT STRIP POCT GLUCOSE, DOC KED Routine 03/07/2020 12:21 PM EST 03/07/2020 12:21:00 PM [facility] THROMBOPLASTIN TIME PARTIAL PLASMA/WHOLE BLOOD PARTIA L THROMBOPLASTIN TIME (PTT) Routine 03/07/2020 10:47 AM EST 03/07/2020 10:47 :00 AM [facility] PROTHROMBIN TIME PROTIME INR Routine 03/07/2020 10:47 AM EST 03/07/2020 10:47:00 AM [facility] BLOOD COUNT COMPLETE AUTOMATED CBC AND DIFFERENTIAL Routine 03/07/2020 10:47 AM EST 03/07/2020 10:47:00 AM [facility] TRANSFUSE RBC (ONCE) TRANSFUSE RBC (ONCE) STAT 03/07/2020 9:18 AM EST 03/07/2020 09:18:50 AM [facility] GLUCOSE QUANTITATIVE BLOOD XCPT REAGENT STRIP POCT GLUCOSE, DOC KED Routine 03/07/2020 8:08 AM EST 03/07/2020 08:08:00 AM [facility] COVID-19 PCR COVID-19 PCR Routine 03/07/2020 12:47 AM EST 03/07/2020 12:47:00 AM [facility] CONFIRMATORY TYPE CONFIRMATORY TYPE Routine 03/07/2020 12:47 AM EST 03/07/2020 12:47:00 AM [facility] CROSSMATCH, ADDITIONAL CROSSMATCH, ADDITIONAL Routine 021 12:47 AM EST 03/07/2020 12:47:00 AM [facility] BLOOD COUNT COMPLETE AUTOMATED CBC Routine 03/07/2020 12:47 A M EST 03/07/2020 12:47:00 AM [facility] BLOOD TYPING ABO TYPE AND SCREEN Routine 03/07/2020 12:47 AM EST 03/07/2020 12:47:00 AM [facility] TRIIODOTHYRONINE T3 FREE T3, FREE Routine 03/07/2020 12:47 AM EST 03/07/2020 12:47:00 AM [facility] THYROID STIMULATING HORMONE TSH TSH Routine 03/07/2020 12:47 AM EST 03/07/2020 12:47:00 AM [facility] THYROXINE FREE T4, FREE Routine 03/07/2020 12:47 AM EST 03/07/2020 12:47:00 AM [facility] COMPREHENSIVE METABOLIC PANEL COMPREHENSIVE METABOLIC PANEL Rou mary 03/07/2020 12:47 AM EST 03/07/2020 12:47:00 AM [facility] GLUCOSE QUANTITATIVE BLOOD XCPT REAGENT STRIP POCT GLUCOSE, DOC KED Routine 03/07/2020 12:16 AM EST 03/07/2020 12:16:00 AM [facility] XR CHEST FRONTAL ONLY [id number] XR CHEST FRONTAL ONLY [id number] Routine 03/07/2020 12:10 AM EST 03/07/2020 12:10:00 AM [facility] CYTOGENETICS ONCOLOGY, BLOOD AND BONE MARROW CYTOGENE TICS ONCOLOGY, BLOOD AND BONE MARROW Routine 03/07/2020 12:00 AM EST 03/07/2020 12: 00:00 AM [facility] HEMATOPATHOLOGY HEMATOPATHOLOGY Routine 03/07/2020 12:00 AM EST 03/07/2020 12:00:00 AM [facility] ECG ROUTINE ECG W/LEAST 12 LDS W/I&R POCT AMB EKG Routine 12/21/2019 1:41 PM EST Coronary angioplasty status 12/21/2019 06:41:00 PM EST Coron evans angioplasty status [facility] Coronary angioplasty status BLOOD COUNT COMPLETE AUTO&AUTO DIFRNTL WBC COUNT CBC AND DIFFER ENTIAL Routine 12/19/2019 12/19/2019 12:00:00 AM EST [facility] HEPATIC FUNCTION PANEL HEPATIC FUNCTION PANEL Routine 12/05/2019 12/05/2019 12:00:00 AM EDT [facility] BASIC METABOLIC PANEL CALCIUM TOTAL BASIC METABOLIC PANEL Routine 12/05/2019 12/05/2019 12:00:00 AM EDT [facility] Transitional Care NO CHARGE Visit 06/29/2019 12:00:00 AM EDT [email or web address] ([facility]) LIPID PANEL LIPID PANEL Routine 05/30/2019 05/30/2019 1 2:00:00 AM EDT [facility] POCT GLUCOSE, DOCKED POCT GLUCOSE, DOCKED Routine 04/09/2019 11:54 AM EST 04/09/2019 04:54:00 PM [facility] POCT GLUCOSE, DOCKED POCT GLUCOSE, DOCKED Routine 04/09/2019 7:28 AM EST 04/09/2019 12:28:00 PM [facility] BLOOD COUNT COMPLETE AUTO&AUTO DIFRNTL WBC COUNT CBC AND DIFFER ENTIAL Routine 04/09/2019 12:33 AM EST 04/09/2019 05:33:00 AM [facility] URIC ACID BLOOD URIC ACID Routine 04/09/2019 12:33 AM EST 04/09/2019 05:33:00 AM [facility] BASIC METABOLIC PANEL CALCIUM TOTAL BASIC METABOLIC PANEL Routi ne 04/09/2019 12:33 AM EST 04/09/2019 05:33:00 AM EST [facility] GLUCOSE QUANTITATIVE BLOOD XCPT REAGENT STRIP POCT GLUCOSE, DOC KED Routine 04/08/2019 9:08 PM EST 04/09/2019 02:08:00 AM [facility] GLUCOSE QUANTITATIVE BLOOD XCPT REAGENT STRIP POCT GLUCOSE, GLORIA SINGH Routine 04/08/2019 4:55 PM EST 04/08/2019 09:55:00 PM [facility] GLUCOSE QUANTITATIVE BLOOD XCPT REAGENT STRIP POCT GLUCOSE, GLORIA SINGH Routine 04/08/2019 11:58 AM EST 04/08/2019 04:58:00 PM [facility] GLUCOSE QUANTITATIVE BLOOD XCPT REAGENT STRIP POCT GLUCOSE, GLORIA SINGH Routine 04/08/2019 7:44 AM EST 04/08/2019 12:44:00 PM [facility] BLOOD COUNT COMPLETE AUTOMATED CBC AND DIFFERENTIAL Routine 04/08/2019 12:46 AM EST 04/08/2019 05:46:00 AM [facility] URIC ACID BLOOD URIC ACID Routine 04/08/2019 12:46 AM EST 04/08/2019 05:46:00 AM [facility] BASIC METABOLIC PANEL CALCIUM TOTAL BASIC METABOLIC PANEL Routi ne 04/08/2019 12:46 AM EST 04/08/2019 05:46:00 AM [facility] GLUCOSE QUANTITATIVE BLOOD XCPT REAGENT STRIP POCT GLUCOSE, GLORIA SINGH Routine 04/07/2019 9:44 PM EST 04/08/2019 02:44:00 AM [facility] GLUCOSE QUANTITATIVE BLOOD XCPT REAGENT STRIP POCT GLUCOSE, GLORIA SINGH Routine 04/07/2019 4:35 PM EST 04/07/2019 09:35:00 PM [facility] GLUCOSE QUANTITATIVE BLOOD XCPT REAGENT STRIP POCT GLUCOSE, GLORIA SINGH Routine 04/07/2019 11:39 AM EST 04/07/2019 04:39:00 PM [facility] URIC ACID BLOOD URIC ACID Routine 04/07/2019 9:11 AM EST 04/07/2019 02:11:00 PM [facility] TRIIODOTHYRONINE T3 FREE T3, FREE Routine 04/07/2019 9:11 AM EST 04/07/2019 02:11:00 PM [facility] THYROXINE FREE T4, FREE Routine 04/07/2019 9:11 AM EST 04/07/2019 02:11:00 PM [facility] GLUCOSE QUANTITATIVE BLOOD XCPT REAGENT STRIP POCT GLUCOSE, GLORIA SINGH Routine 04/07/2019 7:42 AM EST 04/07/2019 12:42:00 PM [facility] HLA CLASS I&II LOW HLA-A -B -C -DRB1/3/4/5&-DQB1 HLA MOLECULAR MABDR Routine 04/07/2019 12:23 AM EST 04/07/2019 05:23:00 AM [facility] IAAD EIA HIV-1 AG W/HIV-1&HIV-2 ANTBDY SINGLE HIV AG AB COMBO S CREEN Routine 04/07/2019 12:23 AM EST 04/07/2019 05:23:00 AM [facility] ANTIBODY CYTOMEGALOVIRUS CMV CMV IGG Routine 04/07/2019 12:23 AM EST 04/07/2019 05:23:00 AM [facility] MICROSOMAL ANTIBODIES EACH THYROID PEROXIDASE ANTIBODY Routine 04/07/2019 12:23 AM EST 04/07/2019 05:23:00 AM [facility] COPPER COPPER, PLASMA Routine 04/07/2019 12:23 AM EST 04/07/2019 05:23:00 AM [facility] ZINC ZINC, PLASMA Routine 04/07/2019 12:23 AM EST 04/07/2019 05:23:00 AM [facility] ACUTE HEPATITIS PANEL HEPATITIS PANEL, ACUTE Routine 04/07/2019 1 2:23 AM EST 04/07/2019 05:23:00 AM [facility] BLOOD COUNT COMPLETE AUTOMATED CBC AND DIFFERENTIAL Routine 04/07/2019 12:23 AM EST 04/07/2019 05:23:00 AM [facility] PHOSPHORUS INORGANIC PHOSPHORUS LEVEL Routine 04/07/2019 12:[address] 04/07/2019 05:23:00 AM [facility] MAGNESIUM MAGNESIUM LEVEL Routine 04/07/2019 12:23 AM EST 04/07/2019 05:23:00 AM [facility] BASIC METABOLIC PANEL CALCIUM TOTAL BASIC METABOLIC PANEL Routi ne 04/07/2019 12:23 AM EST 04/07/2019 05:23:00 AM [facility] GLUCOSE QUANTITATIVE BLOOD XCPT REAGENT STRIP POCT GLUCOSE, DOC KED Routine 04/06/2019 8:59 PM EST 04/07/2019 01:59:00 AM [facility] GLUCOSE QUANTITATIVE BLOOD XCPT REAGENT STRIP POCT GLUCOSE, DOC KED Routine 04/06/2019 4:38 PM EST 04/06/2019 09:38:00 PM [facility] FLOW CYTOMETRY CELL CYCLE/DNA GENET LEUKEMIA / LYMPHOM A PHENOTYPE, PERIPHERAL BLOOD Routine 04/06/2019 1:40 PM EST 04/06/2019 06:40 :00 PM [facility] GLUCOSE QUANTITATIVE BLOOD XCPT REAGENT STRIP POCT GLUCOSE, DOC KED Routine 04/06/2019 11:48 AM EST 04/06/2019 04:48:00 PM [facility] NATRIURETIC PEPTIDE PROBNP Routine 04/06/2019 9:54 AM EST 04/06/2019 02:54:00 PM [facility] PROTHROMBIN TIME PROTIME INR Routine 04/06/2019 9:54 AM EST 04/06/2019 02:54:00 PM [facility] FIBRINOGEN ACTIVITY FIBRINOGEN LEVEL Routine 04/06/2019 9:54 AM ES T 04/06/2019 02:54:00 PM [facility] FIBRIN DGRADJ PRODUCTS D-DIMER QUAL/SEMIQUAN D-DIMER, QUANTITAT LESLYE Routine 04/06/2019 9:54 AM EST 04/06/2019 02:54:00 PM [facility] BLOOD COUNT RETICULOCYTE AUTOMATED RETICULOCYTES Routine 04/06/2019 9:54 AM EST 04/06/2019 02:54:00 PM [facility] URIC ACID BLOOD URIC ACID Routine 04/06/2019 9:54 AM EST 04/06/2019 02:54:00 PM [facility] THYROID STIMULATING HORMONE TSH TSH Routine 04/06/2019 9:54 AM EST 04/06/2019 02:54:00 PM [facility] PHOSPHORUS INORGANIC PHOSPHORUS LEVEL Routine 04/06/2019 9:[address] 04/06/2019 02:54:00 PM [facility] LACTATE DEHYDROGENASE LDH LACTATE DEHYDROGENASE Routine 04/06/2019 9:54 AM EST 04/06/2019 02:54:00 PM [facility] HAPTOGLOBIN QUANTITATIVE HAPTOGLOBIN Routine 04/06/2019 9:54 AM ES T 04/06/2019 02:54:00 PM [facility] FERRITIN FERRITIN LEVEL Routine 04/06/2019 9:54 AM EST 04/06/2019 02:54:00 PM [facility] CYANOCOBALAMIN VITAMIN B-12 VITAMIN B12 Routine 04/06/2019 9:54 AM EST 04/06/2019 02:54:00 PM [facility] BASIC METABOLIC PANEL CALCIUM TOTAL BASIC METABOLIC PANEL Routi ne 04/06/2019 9:54 AM EST 04/06/2019 02:54:00 PM [facility] EKG 12-LEAD - CMAXX REPORT EKG 12-LEAD - CMAXX REPORT 04/06/2019 9:45 AM EST 04/06/2019 02:45:45 PM [facility] EKG 12-LEAD - CMAXX REPORT EKG 12-LEAD - CMAXX REPORT 04/06/2019 9:45 AM EST 04/06/2019 02:45:45 PM [facility] EKG 12-LEAD EKG 12-LEAD Routine 04/06/2019 9:45 AM EST 04/06/2019 02:45:45 PM [facility] ECHO TTHRC R-T 2D W/WOM-MODE COMPL SPEC&COLR DOP ECHOCARDIO GRAM 2D COMPLETE Routine 04/06/2019 8:40 AM EST 04/06/2019 01:40:28 PM [facility] GLUCOSE QUANTITATIVE BLOOD XCPT REAGENT STRIP POCT GLUCOSE, DOC KED Routine 04/06/2019 7:47 AM EST 04/06/2019 12:47:00 PM [facility] EKG 12-LEAD - CMAXX REPORT EKG 12-LEAD - CMAXX REPORT 04/06/2019 2:43 AM EST 04/06/2019 07:43:24 AM [facility] EKG 12-LEAD - CMAXX REPORT EKG 12-LEAD - CMAXX REPORT 04/06/2019 2:42 AM EST 04/06/2019 07:42:52 AM [facility] EKG 12-LEAD - CMAXX REPORT EKG 12-LEAD - CMAXX REPORT 04/06/2019 2:42 AM EST 04/06/2019 07:42:52 AM [facility] EKG 12-LEAD EKG 12-LEAD Routine 04/06/2019 2:42 AM EST 04/06/2019 07:42:52 AM [facility] BLOOD COUNT COMPLETE AUTOMATED CBC AND DIFFERENTIAL Routine 04/06/2019 12:09 AM EST 04/06/2019 05:09:00 AM [facility] COMPREHENSIVE METABOLIC PANEL COMPREHENSIVE METABOLIC PANEL Rou mary 04/06/2019 12:09 AM EST 04/06/2019 05:09:00 AM [facility] CYTOGENETICS ONCOLOGY, BLOOD AND BONE MARROW CYTOGENE TICS ONCOLOGY, BLOOD AND BONE MARROW Routine 04/06/2019 12:00 AM EST 04/06/2019 05: 00:00 AM [facility] HEMATOPATHOLOGY HEMATOPATHOLOGY Routine 04/06/2019 12:00 AM EST 04/06/2019 05:00:00 AM [facility] RESPIRATORY PANEL RESPIRATORY PANEL Routine 04/05/2019 11:16 PM EST 04/06/2019 04:16:00 AM [facility] Results ID Date Data Source [id number] 03/24/2020 07:51:00 AM [facility] Name Value Range Interpretation Code Description Data Cheyenne rce(s) Supporting Document(s) SARS coronavirus 2 RNA [Presence] in Res piratory specimen by JOSE ROBERTO with probe detection NEGATIVE [facility] This lab was ordered by [facility] a nd reported by [facility]. ID Date Data Source [id number] 03/18/2020 04:17:58 PM [facility] Name Value Range Interpretation Code Description Data [place]yenne rce(s) Supporting Document(s) Platelets [#/volume] in Blood by Automated count 18 10*3/uL 150-400 Health system No significant change since last result called ID Date Data Source [id number] 03/18/2020 01:44:37 PM [facility] Name Value Range Interpretation Code Description Data Cheyenne rce(s) Supporting Document(s) Discharge Summary [facility] OFLRMr8lVnBTEmCd23/GKMywKKJny5KqPVanWFe6KOboIZNaT5BmFYA7fN9xPCV6FSlRMmWtCfIsTXWu lbm [file] +tW++dupzfiJgczne2s0Cn7E5aRZ9MUeTZc0ZtOm+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/bcHVDYkaB/cyf2BTjVwxSOwEGmxfj7DS/+C3 hL+l4S10nkDIYuD9n+or0r7c4KsJvnPbUK9Gvn48WU1+FrgD+9ApQEIch+ZNRu6BgxnMIYjsi6Cp6ci/ xwZjiI6dJSiENZzsVGhZa5dTsqweFt6X2KwYX+98/k 4A+py2G+UYHl3KlPx2tVGc7fP9ESNDItHFTNkHwHevPSrAMRHPgfkdcFuLVS6tSJHC89qI/rhujgcfHt GSALYNCUm9WCHNxWJDcag8ccKW1u/AAfUoxbarzK/+fkwL1U19ufeRaYvYwMChb3lmF4/evDoCohjl/G h94CSPLP8l3URnnqtDKPNWcfTLUKk6TTUIHNp4/Tgp [file] [id number] ID Date Data Source [id number] 03/18/2020 11:51:42 AM [facility] Name Value Range Interpretation Code Description Data [place]yenne rce(s) Supporting Document(s) Glucose [Mass/volume] in Capillary blood by Glucometer 124 mg/dL 70- 140 [facility] ID Date Data Source [id number] 03/20/2020 01:56:04 AM [facility] Performed at [facility] [place], Boby lester[address] 03/18/20 Name Value Range Interpretation Code Description Data Cheyenne rce(s) Supporting Document(s) ID Date Data Source [id number] 03/18/2020 09:17:04 AM [facility] Name Value Range Interpretation Code Description Data [place] rce(s) Supporting Document(s) Leukocytes [#/volume] in Blood by Automated count 0.5 10*3/uL 4-10 Health system No significant change since last result called Erythrocytes [#/volume] in Blood by Automated count 2.78 10*6/uL 4.1- 5.3 L [facility] Hemoglobin [Mass/volume] in Blood 8.3 g/dL 11.5-15.5 L [facility] Hematocrit [Volume Fraction] of Blood by Automated count 23.8 % 3 6-45 L [facility] Erythrocyte mean corpuscular volume [Entitic volume] by Auto mated count 85.3 fL 80-96 [facility] Erythrocyte mean corpuscular hemoglobin [Entitic mass] by Automated count 29.8 pg 27-33 [facility] Erythrocyte mean corpuscular hemoglobin concentration [Mass/volume] by Automated count 34.9 g/dL 32.0-36.0 [facility] distribution width [Ratio] by Automated count 14.7 % 11.5-14.5 H [facility] Platelets [#/volume] in Blood by Automated count 10 10*3/uL 150-400 Health system No significant change since last result called ID Date Data Source [id number] 03/18/2020 07:52:46 AM [facility] Name Value Range Interpretation Code Description Data Cheyenne rce(s) Supporting Document(s) Glucose [Mass/volume] in Capillary blood by Glucometer 85 mg/dL 70- 140 [facility] ID Date Data Source [id number] 03/18/2020 01:51:25 AM [facility] Name Value Range Interpretation Code Description Data [place]yenne rce(s) Supporting Document(s) Bicarbonate [Moles/volume] in Serum 22 mmol/L 22-29 [facility] Chloride [Moles/volume] in Serum or Plasma 108 mmol/L 98-107 H [facility] Creatinine [Mass/volume] in Serum or Plasma 1.45 mg/dL 0.50-0.90 [facility] Glucose [Mass/volume] in Serum or Plasma 117 mg/dL 70-140 [facility] Potassium [Moles/volume] in Serum or Plasma 3.6 mmol/L 3.4-5.1 [facility] Sodium [Moles/volume] in Serum or Plasma 138 mmol/L 136-145 [facility] Urea nitrogen [Mass/volume] in Serum or Plasma 26 mg/dL 8-23 H [facility] Anion gap 3 in Serum or Plasma 9 mmol/L 8-15 [facility] Osmolality of Serum or Plasma by calculation 292 mosm/kg 275-300 [facility] Creatinine/Urea nitrogen [Mass Ratio] in Serum or Plasma 18 [facility] Calcium [Mass/volume] in Serum or Plasma 8.0 mg/dL 8.8-10.2 L [facility] Glomerular filtration rate/1.73 sq M pre dicted among non-blacks [Volume Rate/Area] in Serum or Plasma by Creatinine-based formula (MDRD) 37 mL/min/1.73m2 >60 L [facility] Glomerular filtration rate/1.73 sq M pre dicted among blacks [Volume Rate/Area] in Serum or Plasma by Creatinine-based formula (MDRD) 43 mL/min/1.73m2 >60 L [facility] ID Date Data Source [id number] 03/18/2020 01:51:25 AM [facility] Name Value Range Interpretation Code Description Data [place] rce(s) Supporting Document(s) Magnesium [Mass/volume] in Serum or Plasma 1.8 mg/dL 1.6-2.4 [facility] ID Date Data Source [id number] 03/18/2020 01:51:25 AM [facility] Name Value Range Interpretation Code Description Data [place] rce(s) Supporting Document(s) Phosphate [Mass/volume] in Serum or Plasma 3.2 mg/dL 2.5-4.5 [facility] ID Date Data Source [id number] 03/18/2020 02:34:55 AM [facility] Name Value Range Interpretation Code Description Data [place] rce(s) Supporting Document(s) Leukocytes [#/volume] in Blood by Automated count 0.5 10*3/uL 4-10 Health system No significant change since last result called Erythrocytes [#/volume] in Blood by Automated count 2.27 10*6/uL 4.1- 5.3 L [facility] Hemoglobin [Mass/volume] in Blood 6.7 g/dL 11.5-15.5 L [facility] Hematocrit [Volume Fraction] of Blood by Automated count 19.3 % 3 6-45 Health system No significant change since last result called Erythrocyte mean corpuscular volume [Entitic volume] by Auto mated count 85.0 fL 80-96 [facility] Erythrocyte mean corpuscular hemoglobin [Entitic mass] by Automated count 29.5 pg 27-33 [facility] Erythrocyte mean corpuscular hemoglobin concentration [Mass/volume] by Automated count 34.7 g/dL 32.0-36.0 [facility] E[facility]th[facility] distribution width [Ratio] by Automated count 14.7 % 11.5-14.5 H [facility] Platelets [#/volume] in Blood by Automated count 12 10*3/uL 150-400 Health system No significant change since last result called Differential cell count method - Blood [facility] Neutrophils/100 leukocytes in Blood by Automated count 2 % [facility] Lymphocytes/100 leukocytes in Blood by Automated count 87 % [facility] Monocytes/100 leukocytes in Blood by Automated count 0 % [facility] Eosinophils/100 leukocytes in Blood by Automated count 1 % [facility] Neutrophils [#/volume] in Blood by Automated count 0.01 10*3/uL 1.8-7 .0 L [facility] Lymphocytes [#/volume] in Blood by Automated count 0.44 10*3/uL 1.2-4 .0 L [facility] Monocytes [#/volume] in Blood by Automated count 0.00 10*3/uL 0-0.8 [facility] Eosinophils [#/volume] in Blood by Automated count 0.00 10*3/uL 0-0.5 [facility] Nucleated erythrocytes/100 leukocytes [Ratio] in Blood by Automated count 0 /100{WBCs} 0-0 [facility] Variant lymphocytes/100 leukocytes in Blood by Manual count 4 % [facility] Metamyelocytes/100 leukocytes in Blood by Manual count 0 % [facility] Blasts/100 leukocytes in Blood by Manual count 6 % [facility] Lymphocytes [#/volume] in Blood 0.02 10*3/uL 0 H [facility] Metamyelocytes [#/volume] in Blood by Manual count 0.00 10*3/uL 0-0 [facility] Blasts [#/volume] in Blood by Manual count 0.03 10*3/uL 0-0 H [facility] Anisocytosis [Presence] in Blood by Light microscopy [facility] Poikilocytosis [Presence] in Blood by Light microscopy [facility] ID Date Data Source [id number] 03/17/2020 09:16:29 PM [facility] Value Range Interpretation Code Description Data [place]yenne rce(s) Supporting Document(s) Glucose [Mass/volume] in Capillary blood by Glucometer 104 mg/dL 70- 140 [facility] ID Date Data Source [id number] 03/17/2020 04:47:17 PM [facility] Value Range Interpretation Code Description Data [place] rce(s) Supporting Document(s) Glucose [Mass/volume] in Capillary blood by Glucometer 93 mg/dL 70- 140 [facility] ID Date Data Source [id number] 03/17/2020 04:36:18 PM [facility] Value Range Interpretation Code Description Data [place] rce(s) Supporting Document(s) Platelets [#/volume] in Blood by Automated count 16 10*3/uL 150-400 Health system No significant change since last result called ID Date Data Source [id number] 03/17/2020 11:34:49 AM [facility] Name Value Range Interpretation Code Description Data [place] rce(s) Supporting Document(s) Glucose [Mass/volume] in Capillary blood by Glucometer 110 mg/dL 70- 140 [facility] ID Date Data Source [id number] 03/19/2020 01:51:30 AM [facility] Name Value Range Interpretation Code Description Data [place]yenne rce(s) Supporting Document(s) Blood bank comment [facility] ID Date Data Source [id number] 03/17/2020 07:41:19 AM [facility] Value Range Interpretation Code Description Data [place] rce(s) Supporting Document(s) Glucose [Mass/volume] in Capillary blood by Glucometer 125 mg/dL 70- 140 [facility] ID Date Data Source [id number] 03/17/2020 06:41:12 AM [facility] XR CHEST FRONTAL ONLY [id number] RESULTI nterpreted by:Dwain Wang, MDPROCEDURE INFORMATION: Exam: XR Chest, 1 View Exam date and time: 03/17/2020 5:22 AM Age: 65 years old 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 COMPARISON: CR XR CHEST FRONTAL ONLY [id number] PORTABLE 03/13/2020 7:59 PM FINDINGS: Tubes, catheters [...] rce(s) Supporting Document(s) ID Date Data Source [id number] 03/20/2020 01:56:04 AM [facility] Name Value Range Interpretation Code Description Data [place] rce(s) Supporting Document(s) ABO and Rh group [Type] in Blood [facility] Blood group antibody screen [Presence] in Serum or Plasma [facility] Blood bank comment [facility] ID Date Data Source [id number] 03/17/2020 04:39:46 AM [facility] Name Value Range Interpretation Code Description Data [place]yenne rce(s) Supporting Document(s) Color of Urine [facility] Clarity of Urine [facility] Specific gravity of Urine by Refractometry automated 1.012 1.003 -1.030 [facility] pH of Urine by Automated test strip 5.0 5.0-8.0 [facility] Protein [Mass/volume] in Urine by Automated test strip Neg [facility] Glucose [Mass/volume] in Urine by Automated test strip Neg [facility] Ketones [Mass/volume] in Urine by Automated test strip Neg [facility] Bilirubin.total [Presence] in Urine by Automated test strip Negative [facility] Hemoglobin [Presence] in Urine by Automated test strip Neg ative A [facility] Leukocyte esterase [Presence] in Urine by Automated test strip Negative [facility] Nitrite [Presence] in Urine by Automated test strip Negati ve [facility] Leukocytes [#/area] in Urine sediment by Automated count 0 /HPF 0 -5 [facility] Erythrocytes [#/area] in Urine sediment by Automated count 0-3 [facility] Bacteria [#/area] in Urine sediment by Automated count Non e [facility] Epithelial cells.squamous [#/area] in Urine sediment by Auto mated count 8 /HPF None [facility] Mucus [#/area] in Urine sediment by Microscopy low power field None [facility] ID Date Data Source [id number] 03/17/2020 01:54:36 AM [facility] Name Value Range Interpretation Code Description Data [place] rce(s) Supporting Document(s) Bicarbonate [Moles/volume] in Serum 22 mmol/L 22-29 [facility] Chloride [Moles/volume] in Serum or Plasma 105 mmol/L 98-107 [facility] Creatinine [Mass/volume] in Serum or Plasma 1.44 mg/dL 0.50-0.90 H [facility] Glucose [Mass/volume] in Serum or Plasma 105 mg/dL 70-140 [facility] Potassium [Moles/volume] in Serum or Plasma 3.8 mmol/L 3.4-5.1 [facility] Sodium [Moles/volume] in Serum or Plasma 136 mmol/L 136-145 [facility] Urea nitrogen [Mass/volume] in Serum or Plasma 28 mg/dL 8-23 H [facility] Anion gap 3 in Serum or Plasma 9 mmol/L 8-15 [facility] Osmolality of Serum or Plasma by calculation 288 mosm/kg 275-300 [facility] Creatinine/Urea nitrogen [Mass Ratio] in Serum or Plasma 19 [facility] Calcium [Mass/volume] in Serum or Plasma 8.4 mg/dL 8.8-10.2 L [facility] Glomerular filtration rate/1.73 sq M pre dicted among non-blacks [Volume Rate/Area] in Serum or Plasma by Creatinine-based formula (MDRD) 37 mL/min/1.73m2 >60 L [facility] Glomerular filtration rate/1.73 sq M pre dicted among blacks [Volume Rate/Area] in Serum or Plasma by Creatinine-based formula (MDRD) 43 mL/min/1.73m2 >60 L [facility] ID Date Data Source [id number] 03/17/2020 01:54:36 AM [facility] Name Value Range Interpretation Code Description Data [place] rce(s) Supporting Document(s) Magnesium [Mass/volume] in Serum or Plasma 1.9 mg/dL 1.6-2.4 [facility] ID Date Data Source [id number] 03/17/2020 01:54:36 AM [facility] Name Value Range Interpretation Code Description Data [place] rce(s) Supporting Document(s) Phosphate [Mass/volume] in Serum or Plasma 2.9 mg/dL 2.5-4.5 [facility] ID Date Data Source [id number] 03/17/2020 02:24:43 AM [facility] Name Value Range Interpretation Code Description Data [place] rce(s) Supporting Document(s) Leukocytes [#/volume] in Blood by Automated count 0.6 10*3/uL 4-10 Health system Called to and read back by katrina cabrera rn 10h [id number] at 0141 by 1522 Erythrocytes [#/volume] in Blood by Automated count 2.28 10*6/uL 4.1- 5.3 L [facility] Hemoglobin [Mass/volume] in Blood 6.8 g/dL 11.5-15.5 L [facility] Hematocrit [Volume Fraction] of Blood by Automated count 19.6 % 3 6-45 Health system Called to and read back by katrina cabrera rn 10 [id number] at 0141 by 1522 Erythrocyte mean corpuscular volume [Entitic volume] by Auto mated count 85.9 fL 80-96 [facility] Erythrocyte mean corpuscular hemoglobin [Entitic mass] by Automated count 29.9 pg 27-33 [facility] Erythrocyte mean corpuscular hemoglobin concentration [Mass/volume] by Automated count 34.8 g/dL 32.0-36.0 [facility] E[facility]th[facility] distribution width [Ratio] by Automated count 14.8 % 11.5-14.5 H [facility] Platelets [#/volume] in Blood by Automated count 10 10*3/uL 150-400 Health system Called to and read back by katrina cabrera rn 10 [id number] at 0141 by 1522 Differential cell count method - Blood [facility] Neutrophils/100 leukocytes in Blood by Automated count 2 % [facility] Lymphocytes/100 leukocytes in Blood by Automated count 84 % [facility] Monocytes/100 leukocytes in Blood by Automated count 1 % [facility] Neutrophils [#/volume] in Blood by Automated count 0.01 10*3/uL 1.8-7 .0 L [facility] Lymphocytes [#/volume] in Blood by Automated count 0.51 10*3/uL 1.2-4 .0 L [facility] Monocytes [#/volume] in Blood by Automated count 0.01 10*3/uL 0-0.8 [facility] Variant lymphocytes/100 leukocytes in Blood by Manual count 1 % [facility] Blasts/100 leukocytes in Blood by Manual count 11 % [facility] Lymphocytes [#/volume] in Blood 0.01 10*3/uL 0 H [facility] Blasts [#/volume] in Blood by Manual count 0.06 10*3/uL 0-0 H [facility] Anisocytosis [Presence] in Blood by Light microscopy [facility] Poikilocytosis [Presence] in Blood by Light microscopy [facility] Immature cells/100 leukocytes in Blood 1 % 0 H [facility] UNCLASSIFIED CELL IS ARTIFACT. REVIEWED BY Boby CURRAN MD03/19/20 Unidentified cells [#/volume] in Blood 0.01 10*3/uL 0 H [facility] ID Date Data Source [id number] 03/22/2020 12:17:20 PM [facility] Cmnt XXX-Imp : PORTMicroorganism XXX Cult : No growth 5 days Name Value Range Interpretation Code Description Data [place]yenne rce(s) Supporting Document(s) ID Date Data Source [id number] 03/22/2020 12:17:20 PM [facility] Cmnt XXX-Imp : R WRISTMicroorgan ism XXX Cult : No growth 5 days Name Value Range Interpretation Code Description Data [place] rce(s) Supporting Document(s) ID Date Data Source [id number] 03/22/2020 12:17:20 PM [facility] Cmnt XXX-Imp : L ACMicroorganism XXX Cult : No growth 5 days Name Value Range Interpretation Code Description Data [place] rce(s) Supporting Document(s) ID Date Data Source [id number] 03/16/2020 09:58:55 PM [facility] Value Range Interpretation Code Description Data [place] rce(s) Supporting Document(s) Glucose [Mass/volume] in Capillary blood by Glucometer 123 mg/dL 70- 140 [facility] ID Date Data Source [id number] 03/16/2020 04:31:17 PM [facility] Value Range Interpretation Code Description Data [place] rce(s) Supporting Document(s) Glucose [Mass/volume] in Capillary blood by Glucometer 88 mg/dL 70- 140 [facility] ID Date Data Source [id number] 03/16/2020 11:32:37 AM [facility] Value Range Interpretation Code Description Data [place] rce(s) Supporting Document(s) Glucose [Mass/volume] in Capillary blood by Glucometer 124 mg/dL 70- 140 [facility] ID Date Data Source [id number] 03/16/2020 08:05:42 AM [facility] Value Range Interpretation Code Description Data [place] rce(s) Supporting Document(s) Glucose [Mass/volume] in Capillary blood by Glucometer 104 mg/dL 70- 140 [facility] ID Date Data Source [id number] 03/16/2020 01:27:28 AM [facility] Name Value Range Interpretation Code Description Data [place] rce(s) Supporting Document(s) Bicarbonate [Moles/volume] in Serum 23 mmol/L 22-29 [facility] Chloride [Moles/volume] in Serum or Plasma 108 mmol/L 98-107 H [facility] Creatinine [Mass/volume] in Serum or Plasma 1.52 mg/dL 0.50-0.90 H [facility] Glucose [Mass/volume] in Serum or Plasma 151 mg/dL 70-140 H [facility] Potassium [Moles/volume] in Serum or Plasma 4.1 mmol/L 3.4-5.1 [facility] Sodium [Moles/volume] in Serum or Plasma 138 mmol/L 136-145 [facility] Urea nitrogen [Mass/volume] in Serum or Plasma 33 mg/dL 8-23 H [facility] Anion gap 3 in Serum or Plasma 8 mmol/L 8-15 [facility] Osmolality of Serum or Plasma by calculation 297 mosm/kg 275-300 [facility] Creatinine/Urea nitrogen [Mass Ratio] in Serum or Plasma 22 [facility] Calcium [Mass/volume] in Serum or Plasma 8.5 mg/dL 8.8-10.2 L [facility] Glomerular filtration rate/1.73 sq M pre dicted among non-blacks [Volume Rate/Area] in Serum or Plasma by Creatinine-based formula (MDRD) 35 mL/min/1.73m2 >60 L [facility] Glomerular filtration rate/1.73 sq M pre dicted among blacks [Volume Rate/Area] in Serum or Plasma by Creatinine-based formula (MDRD) 41 mL/min/1.73m2 >60 L [facility] ID Date Data Source [id number] 03/16/2020 01:27:28 AM [facility] Name Value Range Interpretation Code Description Data [place] rce(s) Supporting Document(s) Magnesium [Mass/volume] in Serum or Plasma 2.0 mg/dL 1.6-2.4 [facility] ID Date Data Source [id number] 03/16/2020 01:27:28 AM [facility] Value Range Interpretation Code Description Data [place] rce(s) Supporting Document(s) Phosphate [Mass/volume] in Serum or Plasma 3.2 mg/dL 2.5-4.5 [facility] ID Date Data Source [id number] 03/16/2020 02:45:58 AM [facility] Name Value Range Interpretation Code Description Data [place] rce(s) Supporting Document(s) Leukocytes [#/volume] in Blood by Automated count 0.5 10*3/uL 4-10 Health system Called to and read back by kecia soto rn on 10h at 0120 by 2050 Erythrocytes [#/volume] in Blood by Automated count 2.44 10*6/uL 4.1- 5.3 L [facility] Hemoglobin [Mass/volume] in Blood 7.3 g/dL 11.5-15.5 [facility] Hematocrit [Volume Fraction] of Blood by Automated count 20.8 % 3 6-45 Health system Called to and read back by kecia soto rn on 10h at 0120 by 2050 Erythrocyte mean corpuscular volume [Entitic volume] by Auto mated count 84.9 fL 80-96 [facility] Erythrocyte mean corpuscular hemoglobin [Entitic mass] by Automated count 30.0 pg 27-33 [facility] Erythrocyte mean corpuscular hemoglobin concentration [Mass/volume] by Automated count 35.4 g/dL 32.0-36.0 [facility] E[facility]th[facility] distribution width [Ratio] by Automated count 14.8 % 11.5-14.5 H [facility] Platelets [#/volume] in Blood by Automated count 18 10*3/uL 150-400 Health system Called to and read back by kecia soto rn on 10h at 0120 by 2050 Differential cell count method - Blood [facility] Neutrophils/100 leukocytes in Blood by Automated count 1 % [facility] Lymphocytes/100 leukocytes in Blood by Automated count 86 % [facility] Eosinophils/100 leukocytes in Blood by Automated count 1 % [facility] Neutrophils [#/volume] in Blood by Automated count 0.01 10*3/uL 1.8-7 .0 L [facility] Lymphocytes [#/volume] in Blood by Automated count 0.43 10*3/uL 1.2-4 .0 L [facility] Eosinophils [#/volume] in Blood by Automated count 0.01 10*3/uL 0-0.5 [facility] Nucleated erythrocytes/100 leukocytes [Ratio] in Blood by Automated count 1 /100{WBCs} 0-0 H [facility] Variant lymphocytes/100 leukocytes in Blood by Manual count 2 % [facility] Blasts/100 leukocytes in Blood by Manual count 10 % [facility] Lymphocytes [#/volume] in Blood 0.01 10*3/uL 0 H [facility] Blasts [#/volume] in Blood by Manual count 0.05 10*3/uL 0-0 H [facility] Anisocytosis [Presence] in Blood by Light microscopy [facility] Microcytes [Presence] in Blood by Light microscopy [facility] ID Date Data Source [id number] 03/19/2020 02:10:00 PM [facility] Cytogenetics ReportName: PATRICIA COTTON V.MR N: [id number] Number: [id number] Date: 03/15/2020 23:49Received Date: 03/16/2020 09:08Physician(s): LISA VELEZ MD GENTILE, TERESA C,MDCopy To:VJ JONES,DOSpecimediane(s) ReceivedA: Peripheral Blood (U-IF)Clinical HistoryHistory of CMMLTEST REQUESTED/PERFORMED: Fluorescence in situ hybridization - FISH DiagnosisFISH analysis detected monosomy 5 in 41% and trisomy 8 in 6% of nucleiexamined. 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%] and FISH negative for the BCR/ABL1 [t(9;22)]rearrangement.Electronically Signed By Ramses Carl, Ph.D., [facility], Director ofCytogenetics 03/19/2020 14:10:15Gross DescriptionFluorescence in situ Hybridization (FISH)nuc dayday(SCFD2,LNX,PDGFRA,KIT)x2[97/100],(PDGFRBx1)[41/100],(BFEC9q3)[6/100]Descripti onFluorescence in situ hybridization (FISH) studies showed [...] Normal Abnormal NKCSLSI PDGFRA (4q12) tricolor fusion: PESR1SC, LNX-SO, PDGFRA/KIT-SA 3% 100 2 tricolor fusion (G,O,A): 97% 0 % 3% *LSI PDGFRB (3t24-v13) - BA 3% 100 2Y: 58% 1Y: 41% 1% *LSI FGFR3 (8p12) R/G CEP 8 (D8Z2) - Aqua 3% 100 2RGA: 92% 3RGA: 6% 2% Vendor: [employer] or[employer] Probes: LSI: Locus Specific Probe; BA: Break Apart; Fluorochromes/ Signals: SG: Spectrum Green; SO: Spectrum [place]; SA:Spectrum Aqua; Y: Yellow Fusion NKCS: Signals [...] rce(s) Supporting Document(s) ID Date Data Source [id number] 03/15/2020 10:18:13 PM [facility] Name Value Range Interpretation Code Description Data [place] rce(s) Supporting Document(s) Glucose [Mass/volume] in Capillary blood by Glucometer 150 mg/dL 70- 140 [facility] ID Date Data Source [id number] 03/15/2020 04:54:40 PM [facility] Name Value Range Interpretation Code Description Data [place] rce(s) Supporting Document(s) Glucose [Mass/volume] in Capillary blood by Glucometer 181 mg/dL 70- 140 [facility] ID Date Data Source [id number] 03/15/2020 01:05:48 PM [facility] Name Value Range Interpretation Code Description Data [place] rce(s) Supporting Document(s) Leukocytes [#/volume] in Blood by Automated count 0.5 10*3/uL 4-10 Health system Called to and read back by FELIZ Contreras RN AT 10H AT 1227 BY 1590 Erythrocytes [#/volume] in Blood by Automated count 2.76 10*6/uL 4.1- 5.3 [facility] Hemoglobin [Mass/volume] in Blood 8.3 g/dL 11.5-15.5 [facility] Hematocrit [Volume Fraction] of Blood by Automated count 23.6 % 3 6-45 [facility] Erythrocyte mean corpuscular volume [Entitic volume] by Auto mated count 85.7 fL 80-96 [facility] Erythrocyte mean corpuscular hemoglobin [Entitic mass] by Automated count 30.1 pg 27-33 [facility] Erythrocyte mean corpuscular hemoglobin concentration [Mass/volume] by Automated count 35.1 g/dL 32.0-36.0 [facility] width [Ratio] by Automated count 14.8 % 11.5-14.5 [facility] Platelets [#/volume] in Blood by Automated count 29 10*3/uL 150-400 Health system Called to and read back by FELIZ Contreras RN AT 10H AT 1227 BY 1590 Differential cell count method - Blood [facility] Neutrophils/100 leukocytes in Blood by Automated count 5 % [facility] Lymphocytes/100 leukocytes in Blood by Automated count 77 % [facility] Eosinophils/100 leukocytes in Blood by Automated count 3 % [facility] Neutrophils [#/volume] in Blood by Automated count 0.02 10*3/uL 1.8-7 .0 [facility] Lymphocytes [#/volume] in Blood by Automated count 0.39 10*3/uL 1.2-4 .0 [facility] Eosinophils [#/volume] in Blood by Automated count 0.01 10*3/uL 0-0.5 [facility] Blasts/100 leukocytes in Blood by Manual count 15 % [facility] Blasts [#/volume] in Blood by Manual count 0.07 10*3/uL 0-0 [facility] ID Date Data Source [id number] 03/15/2020 11:51:28 AM [facility] Name Value Range Interpretation Code Description Data [place] rce(s) Supporting Document(s) Glucose [Mass/volume] in Capillary blood by Glucometer 217 mg/dL 70- 140 [facility] ID Date Data Source [id number] 03/15/2020 08:02:29 AM [facility] Value Range Interpretation Code Description Data [place]yenne rce(s) Supporting Document(s) Glucose [Mass/volume] in Capillary blood by Glucometer 206 mg/dL 70- 140 [facility] ID Date Data Source [id number] 03/15/2020 01:14:56 AM [facility] Value Range Interpretation Code Description Data [place] rce(s) Supporting Document(s) Bicarbonate [Moles/volume] in Serum 23 mmol/L 22-29 [facility] Chloride [Moles/volume] in Serum or Plasma 106 mmol/L 98-107 [facility] Creatinine [Mass/volume] in Serum or Plasma 1.55 mg/dL 0.50-0.90 [facility] Glucose [Mass/volume] in Serum or Plasma 249 mg/dL 70-140 [facility] Potassium [Moles/volume] in Serum or Plasma 4.0 mmol/L 3.4-5.1 [facility] Sodium [Moles/volume] in Serum or Plasma 138 mmol/L 136-145 [facility] Urea nitrogen [Mass/volume] in Serum or Plasma 41 mg/dL 8-23 [facility] Anion gap 3 in Serum or Plasma 9 mmol/L 8-15 [facility] Osmolality of Serum or Plasma by calculation 304 mosm/kg 275-300 [facility] Creatinine/Urea nitrogen [Mass Ratio] in Serum or Plasma 26 [facility] Calcium [Mass/volume] in Serum or Plasma 8.1 mg/dL 8.8-10.2 [facility] Glomerular filtration rate/1.73 sq M pre dicted among non-blacks [Volume Rate/Area] in Serum or Plasma by Creatinine-based formula (MDRD) 34 mL/min/1.73m2 >60 [facility] Glomerular filtration rate/1.73 sq M pre dicted among blacks [Volume Rate/Area] in Serum or Plasma by Creatinine-based formula (MDRD) 40 mL/min/1.73m2 >60 [facility] ID Date Data Source [id number] 03/15/2020 01:14:56 AM [facility] Name Value Range Interpretation Code Description Data [place] rce(s) Supporting Document(s) Magnesium [Mass/volume] in Serum or Plasma 2.0 mg/dL 1.6-2.4 [facility] ID Date Data Source [id number] 03/15/2020 01:14:56 AM [facility] Name Value Range Interpretation Code Description Data [place] rce(s) Supporting Document(s) Phosphate [Mass/volume] in Serum or Plasma 3.8 mg/dL 2.5-4.5 [facility] ID Date Data Source [id number] 03/15/2020 03:35:11 AM [facility] Value Range Interpretation Code Description Data [place] rce(s) Supporting Document(s) Leukocytes [#/volume] in Blood by Automated count 0.4 10*3/uL 4-10 Health system No significant change since last result called Erythrocytes [#/volume] in Blood by Automated count 2.84 10*6/uL 4.1- 5.3 [facility] Hemoglobin [Mass/volume] in Blood 8.5 g/dL 11.5-15.5 [facility] Hematocrit [Volume Fraction] of Blood by Automated count 24.3 % 3 6-45 [facility] Erythrocyte mean corpuscular volume [Entitic volume] by Auto mated count 85.5 fL 80-96 [facility] Erythrocyte mean corpuscular hemoglobin [Entitic mass] by Automated count 30.1 pg 27-33 [facility] Erythrocyte mean corpuscular hemoglobin concentration [Mass/volume] by Automated count 35.2 g/dL 32.0-36.0 [facility] E[facility]th[facility] distribution width [Ratio] by Automated count 14.7 % 11.5-14.5 [facility] Platelets [#/volume] in Blood by Automated count 34 10*3/uL 150-400 [facility] No significant change since last result called Differential cell count method - Blood [facility] Neutrophils/100 leukocytes in Blood by Automated count 3 % [facility] Lymphocytes/100 leukocytes in Blood by Automated count 75 % [facility] Monocytes/100 leukocytes in Blood by Automated count 3 % [facility] Basophils/100 leukocytes in Blood by Automated count 0 % [facility] Neutrophils [#/volume] in Blood by Automated count 0.01 10*3/uL 1.8-7 .0 L [facility] Lymphocytes [#/volume] in Blood by Automated count 0.30 10*3/uL 1.2-4 .0 L [facility] Monocytes [#/volume] in Blood by Automated count 0.01 10*3/uL 0-0.8 [facility] Basophils [#/volume] in Blood by Automated count 0.00 10*3/uL 0-0.2 [facility] Nucleated erythrocytes/100 leukocytes [Ratio] in Blood by Automated count 0 /100{WBCs} 0-0 [facility] Variant lymphocytes/100 leukocytes in Blood by Manual count 3 % [facility] Myelocytes/100 leukocytes in Blood by Manual count 1 % [facility] Metamyelocytes/100 leukocytes in Blood by Manual count 0 % [facility] Blasts/100 leukocytes in Blood by Manual count 15 % [facility] Lymphocytes [#/volume] in Blood 0.01 10*3/uL 0 H [facility] Myelocytes [#/volume] in Blood by Manual count 0.00 10*3/uL 0-0 [facility] Metamyelocytes [#/volume] in Blood by Manual count 0.00 10*3/uL 0-0 [facility] Blasts [#/volume] in Blood by Manual count 0.06 10*3/uL 0-0 [facility] Anisocytosis [Presence] in Blood by Light microscopy [facility] ID Date Data Source [id number] 03/14/2020 11:02:51 PM [facility] Name Value Range Interpretation Code Description Data [place] rce(s) Supporting Document(s) Glucose [Mass/volume] in Capillary blood by Glucometer 231 mg/dL 70- 140 [facility] ID Date Data Source [id number] 03/14/2020 04:38:44 PM [facility] Name Value Range Interpretation Code Description Data [place] rce(s) Supporting Document(s) Glucose [Mass/volume] in Capillary blood by Glucometer 111 mg/dL 70- 140 [facility] ID Date Data Source [id number] 03/14/2020 05:46:30 PM [facility] Name Value Range Interpretation Code Description Data [place] rce(s) Supporting Document(s) Leukocytes [#/volume] in Blood by Automated count 0.5 10*3/uL 4-10 Health system No significant change since last result called Erythrocytes [#/volume] in Blood by Automated count 2.22 10*6/uL 4.1- 5.3 [facility] Hemoglobin [Mass/volume] in Blood 6.6 g/dL 11.5-15.5 [facility] Hematocrit [Volume Fraction] of Blood by Automated count 19.3 % 3 6-45 Health system No significant change since last result called Erythrocyte mean corpuscular volume [Entitic volume] by Auto mated count 86.8 fL 80-96 [facility] Erythrocyte mean corpuscular hemoglobin [Entitic mass] by Automated count 29.9 pg 27-33 [facility] Erythrocyte mean corpuscular hemoglobin concentration [Mass/volume] by Automated count 34.4 g/dL 32.0-36.0 [facility] E[facility]throcyte distribution width [Ratio] by Automated count 14.5 % 11.5-14.5 [facility] Platelets [#/volume] in Blood by Automated count 36 10*3/uL 150-400 Health system No significant change since last result called Differential cell count method - Blood [facility] Neutrophils/100 leukocytes in Blood by Automated count 1 % [facility] Lymphocytes/100 leukocytes in Blood by Automated count 85 % [facility] Neutrophils [#/volume] in Blood by Automated count 0.01 10*3/uL 1.8-7 .0 [facility] Lymphocytes [#/volume] in Blood by Automated count 0.43 10*3/uL 1.2-4 .0 L [facility] Variant lymphocytes/100 leukocytes in Blood by Manual count 1 % [facility] Myelocytes/100 leukocytes in Blood by Manual count 1 % [facility] Blasts/100 leukocytes in Blood by Manual count 12 % [facility] Lymphocytes [#/volume] in Blood 0.01 10*3/uL 0 H [facility] Myelocytes [#/volume] in Blood by Manual count 0.01 10*3/uL 0-0 [facility] Blasts [#/volume] in Blood by Manual count 0.06 10*3/uL 0-0 [facility] ID Date Data Source [id number] 03/14/2020 03:07:19 PM [facility] Name Value Range Interpretation Code Description Data [place] rce(s) Supporting Document(s) Glucose [Mass/volume] in Capillary blood by Glucometer 104 mg/dL 70- 140 [facility] ID Date Data Source [id number] 03/14/2020 02:13:18 PM [facility] Name Value Range Interpretation Code Description Data [place] rce(s) Supporting Document(s) [facility] [id number]/[id number]gFCX2mC2tUUQ6GYjRYlJaWiGuBEK0 lbm [file] ICAgICAgICAgICAgICAgICAgICAgICAgICAgICAgIC AgICAgICAgICAgICAgICAgICAgICAgICAgICAgICAgICAgICAgICAgICAgICAgDQogICAgICAgICAgIC AgICAgICAgICAgICAgICAgICAgICAgICAgICAgICAgICAgICAgICAgICAgICAgICAgICAgICAgICAgIC AgICAgICAgICAgICAgICAgICAgICAgICAgICAgDQog ICAgICAgICAgICAgICAgICAgICAgICAgICAgICAgICAgICAgICAgICAgICAgICAgICAgICAgICAgICAg ICAgICAgICAgICAgICAgICAgICAgICAgICAgICAgICAgICAgICAgDQogICAgICAgICAgICAgICAgICAg ICAgICAgICAgICAgICAgICAgICAgICAgICAgICAgIC AgICAgICAgICAgICAgICAgICAgICAgICAgICAgICAgICAgICAgICAgICAgICAgICAgDQogICAgICAgIC AgICAgICAgICAgICAgICAgICAgICAgICAgICAgICAgICAgICAgICAgICAgICAgICAgICAgICAgICAgIC AgICAgICAgICAgICAgICAgICAgICAgICAgICAgICAg DQogICAgICAgICAgICAgICAgICAgICAgICAgICAgICAgICAgICAgICAgICAgICAgICAgICAgICAgICAg ICAgICAgICAgICAgICAgICAgICAgICAgICAgICAgICAgICAgICAgICAgDQogICAgICAgICAgICAgICAg ICAgICAgICAgICAgICAgICAgICAgICAgICAgICAgIC AgICAgICAgICAgICAgICAgICAgICAgICAgICAgICAgICAgICAgICAgICAgICAgICAgICAgDQogICAgIC AgICAgICAgICAgICAgICAgICAgICAgICAgICAgICAgICAgICAgICAgICAgICAgICAgICAgICAgICAgIC AgICAgICAgICAgICAgICAgICAgICAgICAgICAgICAg ICAgDQogICAgICAgICAgICAgICAgICAgICAgICAgICAgICAgICAgICAgICAgICAgICAgICAgICAgICAg ICAgICAgICAgICAgICAgICAgICAgICAgICAgICAgICAgICAgICAgICAgICAgDQogICAgICAgICAgICAg ICAgICAgICAgICAgICAgICAgICAgICAgICAgICAgIC VuGJWyCFWmSVVxBRUgWHNwORFcIKLeGSTtKVVdJEZhVOSwZGFuVQXhRFFvOXLzETHmEWAdYLBkHKu3O2 vbRPCoSHOsWD6bHXf8Bd4+OBcHRrViJMS0nkRjoG6SOX3cp3HdEBsbUAFmn0EpOYo9DM6MAXYyCJwmRO 4WNRbyzp8BARJaITRkwONOe3doKpWvGNC1BZCiWmds AZ9IAAKiY7nfwrOxMDXdILFWEClkDOEMWJnjSWLUURItSCMvOsSeVqFrVBOpORJpBOCAFI1LRlDbE5Zq hF62QXXTCe0+IXkdkrUqPolUOwP1GHVnw3InNGi3SB8UJSVyIguge1BwMmVkDDPPSOojEI5LPQB2MCZr EWBsIq1JHWEoF075ofXhMT7ZNm8ZClZfZF8myo7QAe NxQHDhCpyIZwt9KFwsQU3GfPUaGElWa01dyOq1roHoxJMJKIBnadDAm6ydQVOXPZQalMDcVnR4ZlLfQq CdPJd3McqzTB7bRTjqTU2QAWV8XKqrYOGeEPRrG8rGRvWeDAWwOsEubPtxWA6JQsZuQ5JxymMmvKWuQA AwIFINCj4+UDbpjrNlUhaDFqGtVLJfq6UkJAs4YA6T HFIwRXkkFB5XZZQymF7eYEncSE5ABoCrSoRnPBEBZnEpB20krEWhCQc9Q0EhUkHxNSDxCwbbFXOsURdz TmFtZXMgWyBdDQogID4+ID4+DLqoUM2GFHgovrOpJRMtId6EYKGvKKFeHJ2nUIMoXHKzF6A4vBtbCOQB IcHbY0hbolwxGC9mWZJsL604lNxjagXpSAH1JPImPe 7XUNGyLVV6YUXnxYAwNiqrWMYSEWtkRY2JuRIzSYB4yP4xJRcmSBFlNODjZ4vSRlUsaGmnGJ45eVwfrb VsbCBdDQo+Xa1PDP9ku7EdXQa7ubLfISdoQIZyIVojUBJfCCFvCKDrAMC1OIF8DZURErFpQSUlWGYzJL thMIDrMLWtgw8TDAAoXQGiTBVbAkXbEVQpNROaFGnu SPUlSDHvXEA8HHQyMBKhBE1MJyKhBHUvEHEnAAugCXXzODKbad6TOCKnCWThEKQkTUJwTXOfKUXsLHdr SFQwLXB7FEC1GILcKUDcQG8CWnTfWDKhRPliUDIpNMJaNKJtsa1MKAJxDPSjJuXuUPJyJFUiZUGrKOul DGPbOVKvJjR4ARVlLYZlES8NPnMtQLRzPVA2YmBzKE YyBTWncn8ZHKFoAHZoEfX1RhEuUKJlJLOgREmlTLCmFYU6ARUsSKNfDERkEQ3EAlPuMOMeAvG6QkYpLR QxGNAoyz1GOPFqSLXnSIn3NuDoYWHoUKNjDUmzBJAjHNT7WcEcTCLoHVGfQI6FMeMhBCQeLpM8RqvcQC CbHPEqoc0LDXViNWGuMOE9CTNiGXZjGMGxQWzlSPQf OPQ5XZq5GXJaPLCpDS0ARoCsJIUxToY1QgooPKYhYIPhie8FCLFwZASvTyspBLChLUPsVHKhKKdaZBGm QYL1NYIzPQCrQJMzCU9ETcWuUSNfImarHPucSQWtZYSbhe6YFQSqFLYlVODtGdUtYQKfGLHvDJuqDVEh DZH5ERGtVMUgTZUdML9CEhDvKOXeEntfLbDeUFMkFT Yzkz1YETHnCHQcFDH1CPNbBSXiVSHyBBgkHOJoUOX6HAU4EGXfKBBkSR7DHoLbBYFmFve9WGIiYNLkMH Eqzp2HUVObROQ0PPC6AkBmQYIvDAEhIBuiCWTnXSYxUbN4NDPqYWLwSQ8DSiUpUSJsJIF4GHzaWIXmKG Ltxj3CaGBlvOpxmx3CISpCQj8HeYgbDMGpAWhmIy2h fACeXEPcBJSSAf1GnpDbTGPcUOZXJMnzNJHmNAA0K5BdHqNrH0ClREgjAUR0XbFmFfBxWHE6SHG8NlDb VxH5WdzyRIWdWHRwG0EhGDNkJbg3LTQgCXXnGQo1CuFuLaG+MX5pPJq+Lj7Qv1QdsxP4yrNmUKp2YTb2 XK9JVQSIF6FCOx== ID Date Data Source [id number] 03/14/2020 11:42:19 AM [facility] Name Value Range Interpretation Code Description Data [place] rce(s) Supporting Document(s) Glucose [Mass/volume] in Capillary blood by Glucometer 95 mg/dL 70- 140 [facility] ID Date Data Source [id number] 03/14/2020 09:29:25 AM [facility] Name Value Range Interpretation Code Description Data [place] rce(s) Supporting Document(s) History and Physical [facility] NTCOOt9mAdJOJuIh40/UZOctNNKeq7RxUKcsUAi4LIsmMRAxM6WdTHA4cF2vKLX0LNeSHwGjDfSxMPR5 lbm [file] ICAgICAgICAgICAgICAgICAgICAgICAgICAgICAgICAgICAgICAgICAgICAgICAgICAgICAgICAgICAg MZJsQQYpRCMtNCRhGXNxCO9XCSQqUNTxIRYmCTVyXJFwKWHaPLMiRMQwLGOaBNYtHZDlXDReRPXnGALy ICAgICAgICAgICAgICAgICAgICAgICAgICAgICAgIC IdYWOoWNEbFTRdLEGxFUMtHTOzHTFnZLXrQQ6OHZPbHBKrXEOyDWEdDYVeULOpHQEpBRXyIPJxGDPgAF AgICAgICAgICAgICAgICAgICAgICAgICAgICAgICAgICAgICAgICAgICAgICAgICAgICAgICAgICAgIC HkNJIcDXEfBK5ZDGWeTDFyMWWhNQAnJZAcZCQhGNFk ICAgICAgICAgICAgICAgICAgICAgICAgICAgICAgICAgICAgICAgICAgICAgICAgICAgICAgICAgICAg WGZwRPZrKTSwGSBzJJNkFSNlJI8LSHKmRJLlSEEtKNOlABEqZVUpHFThEILxUSLgARNwXKCzCXSwILGh ICAgICAgICAgICAgICAgICAgICAgICAgICAgICAgIC PsCPMsDUBtICKjFXGyUHCzAUHqXCVtHSReYDGkPJ2DRWOfCXRpHQNpSHZxRCLjPUYsLYVcFSDpSWEuQN AgICAgICAgICAgICAgICAgICAgICAgICAgICAgICAgICAgICAgICAgICAgICAgICAgICAgICAgICAgIC FaUWPjIGYzTCCfXH7PXPJyEPGzYRXpTZZmHRJjAGAv ICAgICAgICAgICAgICAgICAgICAgICAgICAgICAgICAgICAgICAgICAgICAgICAgICAgICAgICAgICAg WBSiJZSiASGaGFXyLZMdQNUwYLYfEV4IKMHpRDHfZYLiSMGfACTtDCRlRVOlIZWbOTUbKXTsHEZlVVUx ICAgICAgICAgICAgICAgICAgICAgICAgICAgICAgIC PhJPDpXVRkCCXkWZDjAJIoDRIgWSTsECReSAHqGTKhDD7SFHThGRAoXGCuBDLnHHTfHXNoFQUmQYOrZX AgICAgICAgICAgICAgICAgICAgICAgICAgICAgICAgICAgICAgICAgICAgICAgICAgICAgICAgICAgIC HhTYCnRDHzTEXsIOAwFB2WCNMqBNWgTXHzGTPtSGKt ICAgICAgICAgICAgICAgICAgICAgICAgICAgICAgICAgICAgICAgICAgICAgICAgICAgICAgICAgICAg JIAzRDPzQQSwILUfNZBrTINhHHFbUGPxTX3JDL99sLGyc1S7HWFcVH9tgoq/Qt6GLDzmtiBvnZEgUZ1W AnUwMV8wnt0LFpEwAW8api0BBMtPJyZjL4F2hQUjNV GcWGSNBrEnT46gBLlxLl62IMeaSCIdNqWmLZu4Po0EEpJeJ4unJXDuXdR3JXCjAcL2OQGjZfH0MGQlQg WiIVngKD3Bm1GimUMcIKk+Oj6DVF2pl7JeELxnPvBbGE9roz6NNNcSQtMdO4UezsI8IAK5GBYbKe6GBE HbGIDplZOkZwTdOCLUMoHxT5XgrC21ORESNe9+DQpl xhFcIduUWzD7KWFgd3IlXNh3GW5BBDHtUOn0xIHaZYSJHRV2MGKvdvDuCOCvXFwtFOVyZWQdTQLJFLBk dQZbWkB8OdReTsSyLSO1AYizXU5pTNweNG0ZHLM7DNvcGIEzOEVpR2wNLiAdXMQiNxBnwLhiWV9LAeKf F1UksoTetPHeWkRtKTWAGk4+PTyoxpBtSphLFaA4XO Foi2IrULm5TU4WDUSiTEtkWU7NFHUtaY7bPSliWK1NKrLdUPFgKMKJHePeS81fmYPtKLc5T9DhCrHgMW VkRmlsZXMgPDwvTmFtZXMgWyBdDQogID4+ID4+UDomDD2UPYeqpeDpKUFlDo5BASWxMZRuCN7uEZLxVO BqU6F0rOarCPGCMqAhV1yoebvjQN1nELTvH646fRtv hlKmRLG7KTDjSf4IXBIsGHX2TSYrbEMuHdWnFNSLNXdkVM6BcHLvHVB1yB5hTJipMGRkTXNwF3yEGsLy yPqoTS21gAykfeKkpZKwPIf+Wz6HLA7ql1AaSBq1enDeKUyxQCW0RHnrQCUwVKYbICMaPVD4NES9IXYI NwNdZNOlLPFmMYssOHHtMGRnco6QNZUcTKGkAPI5FQ KeUVUeABAiYRxhMUVpNJH2Pum1IZToKUSmIH1SVjVnTCOqXLYdZHbyRONaSYPeiy8CXDGyZCPyYcirGg XaLFOzPPLmOWunIMJsRNQhYTH6TEKhUOBoEJ8CZjNwVFJkRVylGyVhJXUmRFDkif8CBOYaGOVoXnG0AY PdEAAxBCUdQNykAOFpNRO0QCLeWMOxBNPjNU8LYbMw TNVdSGyaGLErORXyGIHdyo5EMVUqSLEkOQD4NdVhAQTeCDCnOXbvFNEiGHLdFHlvCAPsKEReNJ0UTjOw JFDlJQI1QVYjWCUmKXWgki5IXRFgPKRhRBKkYXArZQBtIICeYFbrRMDeFZMvWUT5HYThKGAuKC1DSrGp PWQcCYFdIQGnCLXcGRDfle5OTHAmCAVxCku2ZXRhOY IkGUCjVOynLALzDNBpFSOeELJlHYCvJP9COyYsXGHhCVYaLJGoCGAiXUMtje5RWJVvLKPmVUooCHEdBB ElHYFxYNnoSLUcOTE6ECH1CROoTJZvRF1JHqIdRWChNyWvIIbiLCCuZGMtga5VAOMuYEKgFZX9LqKwAX QmTCRtDJqbGKLeFWW4MmWoQAReICByWK5GUeVpFDJe TwXqMJihLXDpKMIjxw4HXDDfVLZpRzRcHBXdDUFtLSJeNTkiYEJjPIY9SVjnWWTdCEZlPH5MWjEfNITj Ngt0JeEdJMUsSKEkfi2NcRDttEpgas4IYKgWCg4DiXhyUTN4QQncAi9gqVUeQXUzAOUUJk6IekAkQPGg JEKMSQomXSKvXDEbXIYjXBIiHzP1GAKzXGSiYZTeGA TmMtOmCFy8Tpp0QpJ2NGV1W5X5RnFhZvt4RfG5EiGdLXVuWFU4QiL4RBc9MFv+PX9eBOc+Kg6Kq0Bqwh J7tmBkTLxuEzk8UQ4HYQWPJ2CLLl== ID Date Data Source [id number] 03/14/2020 08:03:14 AM [facility] Name Value Range Interpretation Code Description Data [place]yenne rce(s) Supporting Document(s) Glucose [Mass/volume] in Capillary blood by Glucometer 98 mg/dL 70- 140 [facility] ID Date Data Source [id number] 03/16/2020 07:27:48 AM EST [facility] Name Value Range Interpretation Code Description Data [place]yenne rce(s) Supporting Document(s) Blood bank comment [facility] ID Date Data Source [id number] 03/14/2020 05:18:37 AM [facility] Name Value Range Interpretation Code Description Data [place] rce(s) Supporting Document(s) Platelets [#/volume] in Blood by Automated count 22 10*3/uL 150-400 Health system No significant change since last result called ID Date Data Source [id number] 03/14/2020 03:00:23 AM [facility] Name Value Range Interpretation Code Description Data [place] rce(s) Supporting Document(s) Leukocytes [#/volume] in Blood by Automated count 0.7 10*3/uL 4-10 Health system Called to and read back by Eve Sierra RN on 10H at 0105 by 1521 Erythrocytes [#/volume] in Blood by Automated count 2.38 10*6/uL 4.1- 5.3 L [facility] Hemoglobin [Mass/volume] in Blood 7.2 g/dL 11.5-15.5 [facility] Hematocrit [Volume Fraction] of Blood by Automated count 20.2 % 3 6-45 Health system Called to and read back by Eve Sierra RN on 10H at 0105 by 1521 Erythrocyte mean corpuscular volume [Entitic volume] by Auto mated count 84.7 fL 80-96 [facility] Erythrocyte mean corpuscular hemoglobin [Entitic mass] by Automated count 30.2 pg 27-33 [facility] Erythrocyte mean corpuscular hemoglobin concentration [Mass/volume] by Automated count 35.7 g/dL 32.0-[facility] width [Ratio] by Automated count 14.6 % 11.5-14.5 H [facility] Platelets [#/volume] in Blood by Automated count 11 10*3/uL 150-400 Health system Called to and read back by Eve Sierra RN on 10H at 0105 by 1521 Differential cell count method - Blood [facility] Neutrophils/100 leukocytes in Blood by Automated count 1 % [facility] Lymphocytes/100 leukocytes in Blood by Automated count 82 % [facility] Monocytes/100 leukocytes in Blood by Automated count 0 % [facility] Eosinophils/100 leukocytes in Blood by Automated count 1 % [facility] Neutrophils [#/volume] in Blood by Automated count 0.01 10*3/uL 1.8-7 .0 L [facility] Lymphocytes [#/volume] in Blood by Automated count 0.57 10*3/uL 1.2-4 .0 L [facility] Monocytes [#/volume] in Blood by Automated count 0.00 10*3/uL 0-0.8 [facility] Eosinophils [#/volume] in Blood by Automated count 0.00 10*3/uL 0-0.5 [facility] Nucleated erythrocytes/100 leukocytes [Ratio] in Blood by Automated count 0 /100{WBCs} 0-0 [facility] Variant lymphocytes/100 leukocytes in Blood by Manual count 6 % [facility] Blasts/100 leukocytes in Blood by Manual count 10 % [facility] Lymphocytes [#/volume] in Blood 0.04 10*3/uL 0 H [facility] Blasts [#/volume] in Blood by Manual count 0.07 10*3/uL 0-0 H [facility] Anisocytosis [Presence] in Blood by Light microscopy [facility] Poikilocytosis [Presence] in Blood by Light microscopy [facility] ID Date Data Source [id number] 03/14/2020 01:25:37 AM [facility] Name Value Range Interpretation Code Description Data [place] rce(s) Supporting Document(s) Phosphate [Mass/volume] in Serum or Plasma 2.8 mg/dL 2.5-4.5 [facility] ID Date Data Source [id number] 03/14/2020 01:25:37 AM [facility] Name Value Range Interpretation Code Description Data [place] rce(s) Supporting Document(s) Magnesium [Mass/volume] in Serum or Plasma 1.7 mg/dL 1.6-2.4 [facility] ID Date Data Source [id number] 03/14/2020 01:25:37 AM [facility] Name Value Range Interpretation Code Description Data [place] rce(s) Supporting Document(s) Bicarbonate [Moles/volume] in Serum 22 mmol/L 22-29 [facility] Chloride [Moles/volume] in Serum or Plasma 104 mmol/L 98-107 [facility] Creatinine [Mass/volume] in Serum or Plasma 1.66 mg/dL 0.50-0.90 H [facility] Glucose [Mass/volume] in Serum or Plasma 123 mg/dL 70-140 [facility] Potassium [Moles/volume] in Serum or Plasma 3.3 mmol/L 3.4-5.1 L [facility] Sodium [Moles/volume] in Serum or Plasma 134 mmol/L 136-145 L [facility] Urea nitrogen [Mass/volume] in Serum or Plasma 44 mg/dL 8-23 H [facility] Anion gap 3 in Serum or Plasma 7 mmol/L 8-15 L [facility] Osmolality of Serum or Plasma by calculation 290 mosm/kg 275-300 [facility] Creatinine/Urea nitrogen [Mass Ratio] in Serum or Plasma 27 [facility] Calcium [Mass/volume] in Serum or Plasma 8.1 mg/dL 8.8-10.2 L [facility] Glomerular filtration rate/1.73 sq M pre dicted among non-blacks [Volume Rate/Area] in Serum or Plasma by Creatinine-based formula (MDRD) 31 mL/min/1.73m2 >60 L [facility] Glomerular filtration rate/1.73 sq M pre dicted among blacks [Volume Rate/Area] in Serum or Plasma by Creatinine-based formula (MDRD) 36 mL/min/1.73m2 >60 L [facility] ID Date Data Source [id number] 03/13/2020 09:31:16 PM [place] [facility] Interpretation Code Description Data Cheyenne rce(s) Supporting Document(s) Glucose [Mass/volume] in Capillary blood by Glucometer 155 mg/dL 70- 140 [facility] ID Date Data Source [id number] 03/18/2020 10:15:58 AM [facility] Cmnt XXX-Imp : PORTMicroorganism XXX Cult : No growth 5 days Name Value Range Interpretation Code Description Data Cheyenne rce(s) Supporting Document(s) ID Date Data Source [id number] 03/18/2020 10:15:58 AM [facility] Cmnt XXX-Imp : R ARMMicroorganis m XXX Cult : No growth 5 days Name Value Range Interpretation Code Description Data Cheyenne rce(s) Supporting Document(s) ID Date Data Source [id number] 03/13/2020 09:20:34 PM [facility] Value Range Interpretation Code Description Data Cheyenne rce(s) Supporting Document(s) Color of Urine [facility] Clarity of Urine [facility] Specific gravity of Urine by Refractometry automated 1.009 1.003 -1.030 [facility] pH of Urine by Automated test strip 5.0 5.0-8.0 [facility] Protein [Mass/volume] in Urine by Automated test strip Neg [facility] Glucose [Mass/volume] in Urine by Automated test strip Neg [facility] Ketones [Mass/volume] in Urine by Automated test strip Neg [facility] Bilirubin.total [Presence] in Urine by Automated test strip Negative [facility] Hemoglobin [Presence] in Urine by Automated test strip Neg ative A [facility] Leukocyte esterase [Presence] in Urine by Automated test strip Negative [facility] Nitrite [Presence] in Urine by Automated test strip Negati ve [facility] Leukocytes [#/area] in Urine sediment by Automated count 0 -5 [facility] Erythrocytes [#/area] in Urine sediment by Automated count 0-3 [facility] Epithelial cells.squamous [#/area] in Urine sediment by Automate d count None A [facility] ID Date Data Source [id number] 03/18/2020 10:15:58 AM [facility] Cmnt XXX-Imp : L ARMMicroorganis m XXX Cult : No growth 5 days Name Value Range Interpretation Code Description Data Cheyenne rce(s) Supporting Document(s) ID Date Data Source [id number] 03/13/2020 08:14:35 PM [facility] XR CHEST FRONTAL ONLY [id number] RESULTI nterpreted by:Edwin Spencer, MDPROCEDURE INFORMATION: Exam: XR Chest, 1 View Exam date and time: 03/13/2020 8:08 PM Age: 65 years old 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 COMPARISON: DX XR CHEST FRONTAL ONLY [id number] PORTABLE 03/10/2020 6:45 PM FINDINGS: Tubes, catheters [...] rce(s) Supporting Document(s) ID Date Data Source [id number] 03/13/2020 04:44:22 PM [facility] Name Value Range Interpretation Code Description Data Cheyenne rce(s) Supporting Document(s) Glucose [Mass/volume] in Capillary blood by Glucometer 130 mg/dL 70- 140 [facility] ID Date Data Source [id number] 03/16/2020 07:27:48 AM [facility] Performed at [facility] [place], Amira Franks [place] [address] AT 0653 Name Value Range Interpretation Code Description Data Cheyenne rce(s) Supporting Document(s) ID Date Data Source [id number] 03/13/2020 11:39:55 AM [facility] Name Value Range Interpretation Code Description Data Cheyenne rce(s) Supporting Document(s) Glucose [Mass/volume] in Capillary blood by Glucometer 141 mg/dL 70- 140 H [facility] ID Date Data Source [id number] 03/13/2020 12:59:05 PM [facility] Name Value Range Interpretation Code Description Data Cheyenne rce(s) Supporting Document(s) Leukocytes [#/volume] in Blood by Automated count 0.6 10*3/uL 4-10 Health system Called to and read back by KECIA SPENCER RN 10 [phone] [id number] Erythrocytes [#/volume] in Blood by Automated count 2.71 10*6/uL 4.1- 5.3 [facility] Hemoglobin [Mass/volume] in Blood 8.2 g/dL 11.5-15.5 L [facility] Hematocrit [Volume Fraction] of Blood by Automated count 23.2 % 3 6-45 L [facility] Erythrocyte mean corpuscular volume [Entitic volume] by Auto mated count 85.6 fL 80-96 [facility] Erythrocyte mean corpuscular hemoglobin [Entitic mass] by Automated count 30.3 pg 27-33 [facility] Erythrocyte mean corpuscular hemoglobin concentration [Mass/volume] by Automated count 35.3 g/dL 32.0-36.0 [facility] width [Ratio] by Automated count 14.7 % 11.5-14.5 H [facility] Platelets [#/volume] in Blood by Automated count 16 10*3/uL 150-400 [facility] Called to and read back by KECIA SPENCER RN [facility] [phone] [id number] Differential cell count method - Blood [facility] Neutrophils/100 leukocytes in Blood by Automated count 1 % [facility] Lymphocytes/100 leukocytes in Blood by Automated count 79 % [facility] Monocytes/100 leukocytes in Blood by Automated count 1 % [facility] Eosinophils/100 leukocytes in Blood by Automated count 1 % [facility] Basophils/100 leukocytes in Blood by Automated count 1 % [facility] Neutrophils [#/volume] in Blood by Automated count 0.00 10*3/uL 1.8-7 .0 L [facility] Lymphocytes [#/volume] in Blood by Automated count 0.46 10*3/uL 1.2-4 .0 L [facility] Monocytes [#/volume] in Blood by Automated count 0.01 10*3/uL 0-0.8 [facility] Eosinophils [#/volume] in Blood by Automated count 0.01 10*3/uL 0-0.5 [facility] Basophils [#/volume] in Blood by Automated count 0.00 10*3/uL 0-0.2 [facility] Nucleated erythrocytes/100 leukocytes [Ratio] in Blood by Automated count 0 /100{WBCs} 0-0 [facility] Variant lymphocytes/100 leukocytes in Blood by Manual count 5 % [facility] Myelocytes/100 leukocytes in Blood by Manual count 1 % [facility] Metamyelocytes/100 leukocytes in Blood by Manual count 0 % [facility] Blasts/100 leukocytes in Blood by Manual count 11 % [facility] Immature lymphocytes [Presence] in Blood by Manual count 0 % [facility] Lymphocytes [#/volume] in Blood 0.03 10*3/uL 0 H [facility] Myelocytes [#/volume] in Blood by Manual count 0.00 10*3/uL 0-0 [facility] Metamyelocytes [#/volume] in Blood by Manual count 0.00 10*3/uL 0-0 [facility] Blasts [#/volume] in Blood by Manual count 0.07 10*3/uL 0-0 H [facility] Abnormal lymphocytes [#/volume] in Blood 0.00 10*3/uL 0-0 [facility] Poikilocytosis [Presence] in Blood by Light microscopy [facility] Rouleaux [Presence] in Blood by Light microscopy [facility] Dwarf Megakaryocyte 3 % 0-0 [facility] ID Date Data Source [id number] 03/13/2020 07:43:20 AM [facility] Name Value Range Interpretation Code Description Data Cheyenne rce(s) Supporting Document(s) Glucose [Mass/volume] in Capillary blood by Glucometer 113 mg/dL 70- 140 [facility] ID Date Data Source [id number] 03/13/2020 02:10:44 AM [facility] Value Range Interpretation Code Description Data Cheyenne rce(s) Supporting Document(s) Phosphate [Mass/volume] in Serum or Plasma 3.5 mg/dL 2.5-4.5 [facility] ID Date Data Source [id number] 03/13/2020 02:10:44 AM [facility] Value Range Interpretation Code Description Data Cheyenne rce(s) Supporting Document(s) Magnesium [Mass/volume] in Serum or Plasma 1.8 mg/dL 1.6-2.4 [facility] ID Date Data Source [id number] 03/13/2020 02:10:44 AM [facility] Value Range Interpretation Code Description Data Cheyenne rce(s) Supporting Document(s) Bicarbonate [Moles/volume] in Serum 19 mmol/L 22-29 L [facility] Chloride [Moles/volume] in Serum or Plasma 109 mmol/L 98-107 [facility] Creatinine [Mass/volume] in Serum or Plasma 1.78 mg/dL 0.50-0.90 [facility] Glucose [Mass/volume] in Serum or Plasma 134 mg/dL 70-140 [facility] Potassium [Moles/volume] in Serum or Plasma 3.6 mmol/L 3.4-5.1 [facility] Sodium [Moles/volume] in Serum or Plasma 136 mmol/L 136-145 [facility] Urea nitrogen [Mass/volume] in Serum or Plasma 42 mg/dL 8-23 H [facility] Anion gap 3 in Serum or Plasma 8 mmol/L 8-15 [facility] Osmolality of Serum or Plasma by calculation 294 mosm/kg 275-300 [facility] Creatinine/Urea nitrogen [Mass Ratio] in Serum or Plasma 24 [facility] Calcium [Mass/volume] in Serum or Plasma 8.0 mg/dL 8.8-10.2 L [facility] Glomerular filtration rate/1.73 sq M pre dicted among non-blacks [Volume Rate/Area] in Serum or Plasma by Creatinine-based formula (MDRD) 29 mL/min/1.73m2 >60 L [facility] Glomerular filtration rate/1.73 sq M pre dicted among blacks [Volume Rate/Area] in Serum or Plasma by Creatinine-based formula (MDRD) 33 mL/min/1.73m2 >60 L [facility] ID Date Data Source [id number] 03/13/2020 12:18:00 PM [facility] Name Value Range Interpretation Code Description Data Cheyenne rce(s) Supporting Document(s) Blood bank comment [facility] ID Date Data Source [id number] 03/13/2020 12:01:00 AM [facility] Name Value Range Interpretation Code Description Data Cheyenne rce(s) Supporting Document(s) Leukocytes [#/volume] in Blood by Automated count 0.5 10*3/uL 4-10 Health system No significant change since last result called Erythrocytes [#/volume] in Blood by Automated count 2.20 10*6/uL 4.1- 5.3 [facility] Hemoglobin [Mass/volume] in Blood 6.8 g/dL 11.5-15.5 [facility] Hematocrit [Volume Fraction] of Blood by Automated count 19.1 % 3 6-45 Health system No significant change since last result called Erythrocyte mean corpuscular volume [Entitic volume] by Auto mated count 86.6 fL 80-96 [facility] Erythrocyte mean corpuscular hemoglobin [Entitic mass] by Automated count 30.8 pg 27-33 [facility] Erythrocyte mean corpuscular hemoglobin concentration [Mass/volume] by Automated count 35.6 g/dL 32.0-36.0 [facility] E[facility] distribution width [Ratio] by Automated count 14.8 % 11.5-14.5 H [facility] Platelets [#/volume] in Blood by Automated count 26 10*3/uL 150-400 Health system No significant change since last result called Differential cell count method - Blood [facility] Lymphocytes/100 leukocytes in Blood by Automated count 85 % [facility] Monocytes/100 leukocytes in Blood by Automated count 1 % [facility] Lymphocytes [#/volume] in Blood by Automated count 0.42 10*3/uL 1.2-4 .0 L [facility] Monocytes [#/volume] in Blood by Automated count 0.00 10*3/uL 0-0.8 [facility] Variant lymphocytes/100 leukocytes in Blood by Manual count 3 % [facility] Myelocytes/100 leukocytes in Blood by Manual count 1 % [facility] Blasts/100 leukocytes in Blood by Manual count 10 % [facility] Lymphocytes [#/volume] in Blood 0.01 10*3/uL 0 H [facility] Myelocytes [#/volume] in Blood by Manual count 0.00 10*3/uL 0-0 [facility] Blasts [#/volume] in Blood by Manual count 0.05 10*3/uL 0-0 H [facility] Anisocytosis [Presence] in Blood by Light microscopy [facility] ID Date Data Source [id number] 03/12/2020 09:21:29 PM [facility] Value Range Interpretation Code Description Data Cheyenne rce(s) Supporting Document(s) Glucose [Mass/volume] in Capillary blood by Glucometer 184 mg/dL 70- 140 [facility] ID Date Data Source [id number] 03/12/2020 04:53:33 PM [facility] Value Range Interpretation Code Description Data Cheyenne rce(s) Supporting Document(s) Glucose [Mass/volume] in Capillary blood by Glucometer 166 mg/dL 70- 140 [facility] ID Date Data Source [id number] 03/14/2020 07:22:17 AM [facility] Value Range Interpretation Code Description Data Cheyenne rce(s) Supporting Document(s) Blood bank comment [facility] ID Date Data Source [id number] 03/12/2020 03:29:37 PM [facility] Value Range Interpretation Code Description Data Cheyenne rce(s) Supporting Document(s) Platelets [#/volume] in Blood by Automated count 18 10*3/uL 150-400 Health system No significant change since last result called ID Date Data Source [id number] 03/12/2020 12:44:54 PM [facility] [place] GI BLOOD LOSS IMAGING [id number] RESU LTInterpreted by:Liliana Stevenson MDHISTORY: 65-year-old woman [...] rce(s) Supporting Document(s) ID Date Data Source [id number] 03/12/2020 12:35:41 PM [facility] Name Value Range Interpretation Code Description Data Cheyenne rce(s) Supporting Document(s) Glucose [Mass/volume] in Capillary blood by Glucometer 131 mg/dL 70- 140 [facility] ID Date Data Source [id number] 03/12/2020 09:57:00 AM [facility] Name Value Range Interpretation Code Description Data Cheyenne rce(s) Supporting Document(s) HLA Ab [Type] in Serum [facility] ID Date Data Source [id number] 03/14/2020 07:22:17 AM [facility] Performed at [facility], Amira Franks [place] 10 0857 Name Value Range Interpretation Code Description Data Cheyenne rce(s) Supporting Document(s) ID Date Data Source [id number] 03/12/2020 07:56:54 AM [facility] Name Value Range Interpretation Code Description Data Cheyenne rce(s) Supporting Document(s) Glucose [Mass/volume] in Capillary blood by Glucometer 138 mg/dL 70- 140 [facility] ID Date Data Source [id number] 03/12/2020 05:45:08 AM [facility] Name Value Range Interpretation Code Description Data Cheyenen rce(s) Supporting Document(s) Albumin [Mass/volume] in Serum or Plasma by Bromocresol green (BCG) dye binding method 2.3 g/dL 3.5-5.2 [facility] Bilirubin.total [Mass/volume] in Serum or Plasma 0.7 mg/dL <1.2 [facility] Calcium [Mass/volume] in Serum or Plasma 8.2 mg/dL 8.8-10.2 L [facility] Chloride [Moles/volume] in Serum or Plasma 113 mmol/L 98-107 H [facility] Creatinine [Mass/volume] in Serum or Plasma 1.64 mg/dL 0.50-0.90 H [facility] Glucose [Mass/volume] in Serum or Plasma 130 mg/dL 70-140 [facility] Alkaline phosphatase [Enzymatic activity/volume] in Serum or Plasma 74 U/L 35-104 [facility] Potassium [Moles/volume] in Serum or Plasma 4.0 mmol/L 3.4-5.1 [facility] Protein [Mass/volume] in Serum or Plasma 4.5 g/dL 6.4-8.3 L [facility] Sodium [Moles/volume] in Serum or Plasma 135 mmol/L 136-145 L [facility] Aspartate aminotransferase [Enzymatic activity/volume] in Se rum or Plasma 5 U/L <32 [facility] Urea nitrogen [Mass/volume] in Serum or Plasma 43 mg/dL 8-23 H [facility] Osmolality of Serum or Plasma by calculation 293 mosm/kg 275-300 [facility] Creatinine/Urea nitrogen [Mass Ratio] in Serum or Plasma 26 [facility] Bicarbonate [Moles/volume] in Serum 16 mmol/L 22-29 L [facility] Alanine aminotransferase [Enzymatic activity/volume] in Seru m or Plasma 5 U/L <33 [facility] Anion gap 3 in Serum or Plasma 6 mmol/L 8-15 L [facility] Glomerular filtration rate/1.73 sq M pre dicted among non-blacks [Volume Rate/Area] in Serum or Plasma by Creatinine-based formula (MDRD) 32 mL/min/1.73m2 >60 L [facility] Glomerular filtration rate/1.73 sq M pre dicted among blacks [Volume Rate/Area] in Serum or Plasma by Creatinine-based formula (MDRD) 37 mL/min/1.73m2 >60 L [facility] ID Date Data Source [id number] 03/12/2020 05:45:08 AM [facility] Name Value Range Interpretation Code Description Data Cheyenne rce(s) Supporting Document(s) Magnesium [Mass/volume] in Serum or Plasma 2.0 mg/dL 1.6-2.4 [facility] ID Date Data Source [id number] 03/12/2020 05:45:08 AM [facility] Name Value Range Interpretation Code Description Data Cheyenne rce(s) Supporting Document(s) Phosphate [Mass/volume] in Serum or Plasma 3.1 mg/dL 2.5-4.5 [facility] ID Date Data Source [id number] 03/12/2020 08:11:17 AM [facility] Name Value Range Interpretation Code Description Data Cheyenne rce(s) Supporting Document(s) Leukocytes [#/volume] in Blood by Automated count 0.5 10*3/uL 4-10 Health system No significant change since last result called Erythrocytes [#/volume] in Blood by Automated count 2.09 10*6/uL 4.1- 5.3 L [facility] Hemoglobin [Mass/volume] in Blood 6.5 g/dL 11.5-15.5 [facility] Hematocrit [Volume Fraction] of Blood by Automated count 18.3 % 3 6-45 Health system No significant change since last result called Erythrocyte mean corpuscular volume [Entitic volume] by Auto mated count 87.7 fL 80-96 [facility] Erythrocyte mean corpuscular hemoglobin [Entitic mass] by Automated count 31.0 pg 27-33 [facility] Erythrocyte mean corpuscular hemoglobin concentration [Mass/volume] by Automated count 35.3 g/dL 32.0-36.0 [facility] E[facility]th[facility] distribution width [Ratio] by Automated count 13.8 % 11.5-14.5 [facility] Platelets [#/volume] in Blood by Automated count 10 10*3/uL 150-400 Health system No significant change since last result called Differential cell count method - Blood [facility] Neutrophils/100 leukocytes in Blood by Automated count 1 % [facility] Lymphocytes/100 leukocytes in Blood by Automated count 87 % [facility] Monocytes/100 leukocytes in Blood by Automated count 0 % [facility] Eosinophils/100 leukocytes in Blood by Automated count 1 % [facility] Basophils/100 leukocytes in Blood by Automated count 0 % [facility] Neutrophils [#/volume] in Blood by Automated count 0.01 10*3/uL 1.8-7 .0 L [facility] Lymphocytes [#/volume] in Blood by Automated count 0.43 10*3/uL 1.2-4 .0 L [facility] Monocytes [#/volume] in Blood by Automated count 0.00 10*3/uL 0-0.8 [facility] Eosinophils [#/volume] in Blood by Automated count 0.01 10*3/uL 0-0.5 [facility] Basophils [#/volume] in Blood by Automated count 0.00 10*3/uL 0-0.2 [facility] Nucleated erythrocytes/100 leukocytes [Ratio] in Blood by Automated count 2 /100{WBCs} 0-0 H [facility] Variant lymphocytes/100 leukocytes in Blood by Manual count 3 % [facility] Myelocytes/100 leukocytes in Blood by Manual count 0 % [facility] Blasts/100 leukocytes in Blood by Manual count 8 % [facility] Lymphocytes [#/volume] in Blood 0.01 10*3/uL 0 H [facility] Myelocytes [#/volume] in Blood by Manual count 0.00 10*3/uL 0-0 [facility] Blasts [#/volume] in Blood by Manual count 0.04 10*3/uL 0-0 [facility] ID Date Data Source [id number] 03/11/2020 09:39:59 PM [facility] Name Value Range Interpretation Code Description Data Cheyenne rce(s) Supporting Document(s) Glucose [Mass/volume] in Capillary blood by Glucometer 128 mg/dL 70- 140 [facility] ID Date Data Source [id number] 03/11/2020 06:00:21 PM [facility] Name Value Range Interpretation Code Description Data Cheyenne rce(s) Supporting Document(s) Leukocytes [#/volume] in Blood by Automated count 0.5 10*3/uL 4-10 Health system No significant change since last result called Erythrocytes [#/volume] in Blood by Automated count 2.19 10*6/uL 4.1- 5.3 L [facility] Hemoglobin [Mass/volume] in Blood 6.8 g/dL 11.5-15.5 [facility] Hematocrit [Volume Fraction] of Blood by Automated count 19.1 % 3 6-45 Health system No significant change since last result called Erythrocyte mean corpuscular volume [Entitic volume] by Auto mated count 87.1 fL 80-96 [facility] Erythrocyte mean corpuscular hemoglobin [Entitic mass] by Automated count 31.0 pg 27-33 [facility] Erythrocyte mean corpuscular hemoglobin concentration [Mass/volume] by Automated count 35.5 g/dL 32.0-36.0 [facility] E[facility]th[facility] distribution width [Ratio] by Automated count 14.1 % 11.5-14.5 [facility] Platelets [#/volume] in Blood by Automated count 13 10*3/uL 150-400 Health system No significant change since last result called Differential cell count method - Blood [facility] Neutrophils/100 leukocytes in Blood by Automated count 1 % [facility] Lymphocytes/100 leukocytes in Blood by Automated count 84 % [facility] Monocytes/100 leukocytes in Blood by Automated count 2 % [facility] Eosinophils/100 leukocytes in Blood by Automated count 1 % [facility] Neutrophils [#/volume] in Blood by Automated count 0.01 10*3/uL 1.8-7 .0 L [facility] Lymphocytes [#/volume] in Blood by Automated count 0.42 10*3/uL 1.2-4 .0 L [facility] Monocytes [#/volume] in Blood by Automated count 0.01 10*3/uL 0-0.8 [facility] Eosinophils [#/volume] in Blood by Automated count 0.01 10*3/uL 0-0.5 [facility] Nucleated erythrocytes/100 leukocytes [Ratio] in Blood by Automated count 1 /100{WBCs} 0-0 H [facility] Variant lymphocytes/100 leukocytes in Blood by Manual count 5 % [facility] Myelocytes/100 leukocytes in Blood by Manual count 1 % [facility] Blasts/100 leukocytes in Blood by Manual count 6 % [facility] Lymphocytes [#/volume] in Blood 0.03 10*3/uL 0 H [facility] Myelocytes [#/volume] in Blood by Manual count 0.01 10*3/uL 0-0 H [facility] Blasts [#/volume] in Blood by Manual count 0.03 10*3/uL 0-0 H [facility] ID Date Data Source [id number] 03/11/2020 04:37:05 PM [facility] Name Value Range Interpretation Code Description Data Cheyenne rce(s) Supporting Document(s) Glucose [Mass/volume] in Capillary blood by Glucometer 137 mg/dL 70- 140 [facility] ID Date Data Source [id number] 03/13/2020 07:51:27 AM [facility] Value Range Interpretation Code Description Data Cheyenne rce(s) Supporting Document(s) Blood bank comment [facility] ID Date Data Source [id number] 03/11/2020 12:57:44 PM [facility] Service Cmnt XXX-Imp : NoneOB Pnl [...] rce(s) Supporting Document(s) ID Date Data Source [id number] 03/11/2020 12:03:04 PM [facility] Value Range Interpretation Code Description Data Cheyenne rce(s) Supporting Document(s) Glucose [Mass/volume] in Capillary blood by Glucometer 98 mg/dL 70- 140 [facility] ID Date Data Source [id number] 03/11/2020 07:48:58 AM [facility] Value Range Interpretation Code Description Data Cheyenne rce(s) Supporting Document(s) Glucose [Mass/volume] in Capillary blood by Glucometer 97 mg/dL 70- 140 [facility] ID Date Data Source [id number] 03/16/2020 07:27:48 AM [facility] Value Range Interpretation Code Description Data Cheyenne rce(s) Supporting Document(s) ABO and Rh group [Type] in Blood [facility] Blood group antibody screen [Presence] in Serum or Plasma [facility] Blood bank comment [facility] ID Date Data Source [id number] 03/12/2020 11:40:48 AM [facility] Service Cmnt XXX-Imp : NoneMicroorganism XXX Cult : No growth 1 day Name Value Range Interpretation Code Description Data Cheyenne rce(s) Supporting Document(s) ID Date Data Source [id number] 03/11/2020 01:14:23 AM [facility] Value Range Interpretation Code Description Data Cheyenne rce(s) Supporting Document(s) Bicarbonate [Moles/volume] in Serum 16 mmol/L 22-29 L [facility] Chloride [Moles/volume] in Serum or Plasma 114 mmol/L 98-107 H [facility] Creatinine [Mass/volume] in Serum or Plasma 1.39 mg/dL 0.50-0.90 [facility] Glucose [Mass/volume] in Serum or Plasma 114 mg/dL 70-140 [facility] Potassium [Moles/volume] in Serum or Plasma 4.3 mmol/L 3.4-5.1 [facility] Sodium [Moles/volume] in Serum or Plasma 136 mmol/L 136-145 [facility] Urea nitrogen [Mass/volume] in Serum or Plasma 42 mg/dL 8-23 H [facility] Anion gap 3 in Serum or Plasma 6 mmol/L 8-15 [facility] Osmolality of Serum or Plasma by calculation 293 mosm/kg 275-300 [facility] Creatinine/Urea nitrogen [Mass Ratio] in Serum or Plasma 30 [facility] Calcium [Mass/volume] in Serum or Plasma 7.4 mg/dL 8.8-10.2 L [facility] Glomerular filtration rate/1.73 sq M pre dicted among non-blacks [Volume Rate/Area] in Serum or Plasma by Creatinine-based formula (MDRD) 39 mL/min/1.73m2 >60 L [facility] Glomerular filtration rate/1.73 sq M pre dicted among blacks [Volume Rate/Area] in Serum or Plasma by Creatinine-based formula (MDRD) 45 mL/min/1.73m2 >60 L [facility] ID Date Data Source [id number] 03/11/2020 01:14:23 AM [facility] Name Value Range Interpretation Code Description Data Cheyenne rce(s) Supporting Document(s) Magnesium [Mass/volume] in Serum or Plasma 1.9 mg/dL 1.6-2.4 [facility] ID Date Data Source [id number] 03/11/2020 01:14:23 AM [facility] Name Value Range Interpretation Code Description Data Cheyenne rce(s) Supporting Document(s) Phosphate [Mass/volume] in Serum or Plasma 2.7 mg/dL 2.5-4.5 [facility] ID Date Data Source [id number] 03/11/2020 01:14:23 AM [facility] Name Value Range Interpretation Code Description Data Cheyenne rce(s) Supporting Document(s) Vancomycin [Mass/volume] in Serum or Plasma 19.9 ug/mL [facility] ID Date Data Source [id number] 03/11/2020 01:42:20 AM [facility] Name Value Range Interpretation Code Description Data Cheyenne rce(s) Supporting Document(s) Leukocytes [#/volume] in Blood by Automated count 0.4 10*3/uL 4-10 Health system No significant change since last result called Erythrocytes [#/volume] in Blood by Automated count 1.87 10*6/uL 4.1- 5.3 L [facility] Hemoglobin [Mass/volume] in Blood 5.7 g/dL 11.5-15.5 [facility] Hematocrit [Volume Fraction] of Blood by Automated count 16.5 % 3 6-45 Health system No significant change since last result called Erythrocyte mean corpuscular volume [Entitic volume] by Auto mated count 88.2 fL 80-96 [facility] Erythrocyte mean corpuscular hemoglobin [Entitic mass] by Automated count 30.4 pg 27-33 [facility] Erythrocyte mean corpuscular hemoglobin concentration [Mass/volume] by Automated count 34.5 g/dL 32.0-36.[facility] width [Ratio] by Automated count 14.0 % 11.5-14.5 [facility] Platelets [#/volume] in Blood by Automated count 11 10*3/uL 150-400 Health system No significant change since last result called Differential cell count method - Blood [facility] Lymphocytes/100 leukocytes in Blood by Automated count 88 % [facility] Monocytes/100 leukocytes in Blood by Automated count 2 % [facility] Lymphocytes [#/volume] in Blood by Automated count 0.35 10*3/uL 1.2-4 .0 L [facility] Monocytes [#/volume] in Blood by Automated count 0.01 10*3/uL 0-0.8 [facility] Variant lymphocytes/100 leukocytes in Blood by Manual count 4 % [facility] Blasts/100 leukocytes in Blood by Manual count 6 % [facility] Lymphocytes [#/volume] in Blood 0.02 10*3/uL 0 H [facility] Blasts [#/volume] in Blood by Manual count 0.03 10*3/uL 0-0 H [facility] ID Date Data Source [id number] 03/10/2020 09:21:11 PM [facility] Name Value Range Interpretation Code Description Data Cheyenne rce(s) Supporting Document(s) Glucose [Mass/volume] in Capillary blood by Glucometer 135 mg/dL 70- 140 [facility] ID Date Data Source [id number] 03/12/2020 07:46:13 AM [facility] Service Cmnt XXX-Imp : NoneMicroorganism XXX Cult : NO Methicillin resistant Staphylococcus aureus isolated Name Value Range Interpretation Code Description Data Cheyenne rce(s) Supporting Document(s) ID Date Data Source [id number] 03/10/2020 07:00:25 PM [facility] XR CHEST FRONTAL ONLY [id number] RESULTI nterpreted by:CECIL JulioROCEDURE INFORMATION: Exam: XR Chest, 1 View Exam date and time: 03/10/2020 6:51 PM Age: 65 years old 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 COMPARISON: DX XR CHEST FRONTAL ONLY [id number] PORTABLE 03/06/2020 11:56 PM FINDINGS: Tubes, catheters [...] MDThis document has been electronically signed by Adelaiad Peña MD on 03/10/2020 7:00 PM Name Value Range Interpretation Code Description Data Cheyenne rce(s) Supporting Document(s) ID Date Data Source [id number] 03/15/2020 09:14:16 AM [facility] Cmnt XXX-Imp : PORTMicroorganism XXX Cult : No growth 5 days Name Value Range Interpretation Code Description Data Cheyenne rce(s) Supporting Document(s) ID Date Data Source [id number] 03/15/2020 09:14:16 AM [facility] Service Cmnt XXX-Imp : R HANDMicroorgani sm XXX Cult : No growth 5 days Name Value Range Interpretation Code Description Data Cheyenne rce(s) Supporting Document(s) ID Date Data Source [id number] 03/10/2020 05:20:13 PM [facility] Value Range Interpretation Code Description Data Cheyenne rce(s) Supporting Document(s) Glucose [Mass/volume] in Capillary blood by Glucometer 88 mg/dL 70- 140 [facility] ID Date Data Source [id number] 03/10/2020 11:35:18 AM [facility] Value Range Interpretation Code Description Data Cheyenne rce(s) Supporting Document(s) Glucose [Mass/volume] in Capillary blood by Glucometer 77 mg/dL [address] [place] [address] ID Date Data Source [id number] 03/10/2020 10:04:32 AM [facility] Value Range Interpretation Code Description Data [place]yenne rce(s) Supporting Document(s) Platelets [#/volume] in Blood by Automated count 19 10*3/uL 150-400 [facility] system Called to and read back by kimberly molina rn in 10h at 1000 1268 ID Date Data Source [id number] 03/10/2020 07:57:00 AM [facility] Value Range Interpretation Code Description Data [place]yenne rce(s) Supporting Document(s) Glucose [Mass/volume] in Capillary blood by Glucometer 91 mg/dL 70 140 [facility] ID Date Data Source [id number] 03/12/2020 08:58:45 AM [facility] Value Range Interpretation Code Description Data Cheyenne rce(s) Supporting Document(s) Blood bank comment [facility] ID Date Data Source [id number] 03/10/2020 02:17:03 AM [facility] Name Value Range Interpretation Code Description Data [place]yenne rce(s) Supporting Document(s) Bicarbonate [Moles/volume] in Serum 17 mmol/L 22-29 L [facility] Chloride [Moles/volume] in Serum or Plasma 113 mmol/L 98-107 H [facility] Creatinine [Mass/volume] in Serum or Plasma 1.35 mg/dL 0.50-0.90 H [facility] Glucose [Mass/volume] in Serum or Plasma 100 mg/dL 70-140 [facility] Potassium [Moles/volume] in Serum or Plasma 4.5 mmol/L 3.4-5.1 [facility] Sodium [Moles/volume] in Serum or Plasma 137 mmol/L 136-145 [facility] Urea nitrogen [Mass/volume] in Serum or Plasma 43 mg/dL 8-23 H [facility] Anion gap 3 in Serum or Plasma 7 mmol/L 8-15 L [facility] Osmolality of Serum or Plasma by calculation 295 mosm/kg 275-300 [facility] Creatinine/Urea nitrogen [Mass Ratio] in Serum or Plasma 32 [facility] Calcium [Mass/volume] in Serum or Plasma 7.6 mg/dL 8.8-10.2 L [facility] Glomerular filtration rate/1.73 sq M pre dicted among non-blacks [Volume Rate/Area] in Serum or Plasma by Creatinine-based formula (MDRD) 40 mL/min/1.73m2 >60 L [facility] Glomerular filtration rate/1.73 sq M pre dicted among blacks [Volume Rate/Area] in Serum or Plasma by Creatinine-based formula (MDRD) 47 mL/min/1.73m2 >60 L [facility] ID Date Data Source [id number] 03/10/2020 02:17:03 AM [facility] Name Value Range Interpretation Code Description Data [place]yenne rce(s) Supporting Document(s) Magnesium [Mass/volume] in Serum or Plasma 1.9 mg/dL 1.6-2.4 [facility] ID Date Data Source [id number] 03/10/2020 02:17:03 AM [facility] Value Range Interpretation Code Description Data [place]yenne rce(s) Supporting Document(s) Phosphate [Mass/volume] in Serum or Plasma 3.0 mg/dL 2.5-4.5 [facility] ID Date Data Source [id number] 03/10/2020 03:11:24 AM [facility] Name Value Range Interpretation Code Description Data Cheyenne rce(s) Supporting Document(s) Leukocytes [#/volume] in Blood by Automated count 0.5 10*3/uL 4-10 [facility] system Called to and read back by Kaitlyn irvin RN, 10H, 02:00. 1663 Erythrocytes [#/volume] in Blood by Automated count 2.06 10*6/uL 4.1- 5.3 [facility] Hemoglobin [Mass/volume] in Blood 6.3 g/dL 11.5-15.5 [facility] Hematocrit [Volume Fraction] of Blood by Automated count 18.1 % 3 6-45 Health system Called to and read back by Kaitlyn irvin RN, 10H, 02:00. 1663 Erythrocyte mean corpuscular volume [Entitic volume] by Auto mated count 88.1 fL 80-96 [facility] Erythrocyte mean corpuscular hemoglobin [Entitic mass] by Automated count 30.8 pg 27-33 [facility] Erythrocyte mean corpuscular hemoglobin concentration [Mass/volume] by Automated count 34.9 g/dL 32.0-36.0 [facility] E[facility]th[facility] distribution width [Ratio] by Automated count 13.9 % 11.5-14.5 [facility] Platelets [#/volume] in Blood by Automated count 6 10*3/uL 150-400 Health system Called to and read back by Kaitlyn irvin RN, 10H, 02:00. 1663 Differential cell count method - Blood [facility] Neutrophils/100 leukocytes in Blood by Automated count 1 % [facility] Lymphocytes/100 leukocytes in Blood by Automated count 83 % [facility] Monocytes/100 leukocytes in Blood by Automated count 2 % [facility] Neutrophils [#/volume] in Blood by Automated count 0.01 10*3/uL 1.8-7 .0 L [facility] Lymphocytes [#/volume] in Blood by Automated count 0.42 10*3/uL 1.2-4 .0 [facility] Monocytes [#/volume] in Blood by Automated count 0.01 10*3/uL 0-0.8 [facility] Nucleated erythrocytes/100 leukocytes [Ratio] in Blood by Automated count 1 /100{WBCs} 0-0 H [facility] Variant lymphocytes/100 leukocytes in Blood by Manual count 5 % [facility] Blasts/100 leukocytes in Blood by Manual count 9 % [facility] Lymphocytes [#/volume] in Blood 0.02 10*3/uL 0 H [facility] Blasts [#/volume] in Blood by Manual count 0.04 10*3/uL 0-0 H [facility] Anisocytosis [Presence] in Blood by Light microscopy [facility] ID Date Data Source [id number] 03/09/2020 09:20:58 PM [facility] Name Value Range Interpretation Code Description Data Cheyenne rce(s) Supporting Document(s) Glucose [Mass/volume] in Capillary blood by Glucometer 90 mg/dL 70- 140 [facility] ID Date Data Source [id number] 03/09/2020 04:47:46 PM [facility] Value Range Interpretation Code Description Data Cheyenne rce(s) Supporting Document(s) Glucose [Mass/volume] in Capillary blood by Glucometer 102 mg/dL 70- 140 [facility] ID Date Data Source [id number] 03/09/2020 01:06:57 PM [facility] Value Range Interpretation Code Description Data [place]yenne rce(s) Supporting Document(s) [facility] [id number] lbm [file] [id number] ID Date Data Source [id number] 03/09/2020 01:57:31 PM [facility] Name Value Range Interpretation Code Description Data [place]yenne rce(s) Supporting Document(s) Folate [Mass/volume] in Serum or Plasma 7.21 ng/mL >4.77 [facility] ID Date Data Source [id number] 03/09/2020 01:35:22 PM [facility] Name Value Range Interpretation Code Description Data Cheyenen rce(s) Supporting Document(s) Leukocytes [#/volume] in Blood by Automated count 0.6 10*3/uL 4-10 Health system Called to and read back by feliz contreras rn in 10h at 1253 1268 Erythrocytes [#/volume] in Blood by Automated count 2.47 10*6/uL 4.1- 5.3 [facility] Hemoglobin [Mass/volume] in Blood 7.6 g/dL 11.5-15.5 [facility] Hematocrit [Volume Fraction] of Blood by Automated count 21.7 % 3 6-45 [facility] Called to and read back by feliz contreras rn in 10h at 1253 1268 Erythrocyte mean corpuscular volume [Entitic volume] by Auto mated count 88.1 fL 80-96 [facility] Erythrocyte mean corpuscular hemoglobin [Entitic mass] by Automated count 30.7 pg 27-33 [facility] Erythrocyte mean corpuscular hemoglobin concentration [Mass/volume] by Automated count 34.9 g/dL 32.0-36.0 [facility] E[facility]th[facility] distribution width [Ratio] by Automated count 13.9 % 11.5-14.5 [facility] Platelets [#/volume] in Blood by Automated count 10 10*3/uL 150-400 Health system Called to and read back by feliz contreras rn in 10h at 1253 1268 Differential cell count method - Blood [facility] Neutrophils/100 leukocytes in Blood by Automated count 7 % [facility] Lymphocytes/100 leukocytes in Blood by Automated count 81 % [facility] Monocytes/100 leukocytes in Blood by Automated count 1 % [facility] Eosinophils/100 leukocytes in Blood by Automated count 2 % [facility] Basophils/100 leukocytes in Blood by Automated count 1 % [facility] Neutrophils [#/volume] in Blood by Automated count 0.04 10*3/uL 1.8-7 .0 [facility] Lymphocytes [#/volume] in Blood by Automated count 0.49 10*3/uL 1.2-4 .0 L [facility] Monocytes [#/volume] in Blood by Automated count 0.01 10*3/uL 0-0.8 [facility] Eosinophils [#/volume] in Blood by Automated count 0.01 10*3/uL 0-0.5 [facility] Basophils [#/volume] in Blood by Automated count 0.01 10*3/uL 0-0.2 [facility] Nucleated erythrocytes/100 leukocytes [Ratio] in Blood by Automated count 1 /100{WBCs} 0-0 H [facility] Myelocytes/100 leukocytes in Blood by Manual count 1 % [facility] Blasts/100 leukocytes in Blood by Manual count 7 % [facility] Myelocytes [#/volume] in Blood by Manual count 0.01 10*3/uL 0-0 H [facility] Blasts [#/volume] in Blood by Manual count 0.04 10*3/uL 0-0 H [facility] ID Date Data Source [id number] 03/09/2020 11:37:59 AM [facility] Value Range Interpretation Code Description Data Cheyenne rce(s) Supporting Document(s) Glucose [Mass/volume] in Capillary blood by Glucometer 83 mg/dL 70- 140 [facility] ID Date Data Source [id number] 03/09/2020 10:05:17 AM [facility] Value Range Interpretation Code Description Data [place]yenne rce(s) Supporting Document(s) Reticulocytes/100 erythrocytes in Blood by Automated count 0.3 % 0.6-2.8 [facility] Reticulocytes [#/volume] in Blood 7.2 10*3/uL 26-122 [facility] Immature reticulocytes/Reticulocytes.total in Blood 0.21 % 0.26-0 .52 [facility] ID Date Data Source [id number] 03/09/2020 10:17:46 AM [facility] Value Range Interpretation Code Description Data Cheyenne rce(s) Supporting Document(s) Fibrinogen [Mass/volume] in Platelet poor plasma by Coagulat ion assay 386 mg/dl 190-450 [facility] ID Date Data Source [id number] 03/09/2020 10:17:46 AM [facility] Value Range Interpretation Code Description Data Cheyenne rce(s) Supporting Document(s) Prothrombin time (PT) 15.9 s 12.5-14.9 H [facility] INR in Platelet poor plasma by Coagulation assay 1.26 [facility] Routine intensity oral anticoagulation I NR is typically 2.0-3.0. Target INR must be clinically individualized. ID Date Data Source [id number] 03/09/2020 10:17:46 AM [facility] Value Range Interpretation Code Description Data [place]yenne rce(s) Supporting Document(s) aPTT in Platelet poor plasma by Coagulation assay 33.1 s 24.0-33. 0 H [facility] ID Date Data Source [id number] 03/09/2020 01:52:11 PM [facility] Value Range Interpretation Code Description Data [place]yenne rce(s) Supporting Document(s) Cobalamin (Vitamin B12) [Mass/volume] in Serum or Plasma 621 pg/ml 2 11-946 [facility] ID Date Data Source [id number] 03/09/2020 07:47:24 AM [facility] Value Range Interpretation Code Description Data [place]yenne rce(s) Supporting Document(s) Glucose [Mass/volume] in Capillary blood by Glucometer 74 mg/dL 70- 140 [facility] ID Date Data Source [id number] 03/09/2020 12:26:38 AM [facility] Value Range Interpretation Code Description Data [place] rce(s) Supporting Document(s) Leukocytes [#/volume] in Blood by Automated count 0.6 10*3/uL 4-10 Health system No significant change since last result called Erythrocytes [#/volume] in Blood by Automated count 2.09 10*6/uL 4.1- 5.3 L [facility] Hemoglobin [Mass/volume] in Blood 6.3 g/dL 11.5-15.5 L [facility] Hematocrit [Volume Fraction] of Blood by Automated count 18.4 % 3 6-45 Health system No significant change since last result called Erythrocyte mean corpuscular volume [Entitic volume] by Auto mated count 88.1 fL 80-96 [facility] Erythrocyte mean corpuscular hemoglobin [Entitic mass] by Automated count 30.4 pg 27-33 [facility] Erythrocyte mean corpuscular hemoglobin concentration [Mass/volume] by Automated count 34.5 g/dL 32.0-36.0 [facility] Erythrocyte distribution width [Ratio] by Automated count 14.0 % 11.5-14.5 [facility] Platelets [#/volume] in Blood by Automated count 10 10*3/uL 150-400 Health system No significant change since last result called ID Date Data Source [id number] 03/09/2020 12:41:11 AM [facility] Name Value Range Interpretation Code Description Data Cheyenne rce(s) Supporting Document(s) Magnesium [Mass/volume] in Serum or Plasma 2.1 mg/dL 1.6-2.4 [facility] ID Date Data Source [id number] 03/09/2020 12:41:11 AM [facility] Value Range Interpretation Code Description Data [place]yenne rce(s) Supporting Document(s) Phosphate [Mass/volume] in Serum or Plasma 2.8 mg/dL 2.5-4.5 [facility] ID Date Data Source [id number] 03/09/2020 12:41:11 AM [facility] Value Range Interpretation Code Description Data [place]yenne rce(s) Supporting Document(s) Albumin [Mass/volume] in Serum or Plasma by Bromocresol green (BCG) dye binding method 2.6 g/dL 3.5-5.2 [facility] Bilirubin.total [Mass/volume] in Serum or Plasma 0.5 mg/dL <1.2 [facility] Calcium [Mass/volume] in Serum or Plasma 7.9 mg/dL 8.8-10.2 L [facility] Chloride [Moles/volume] in Serum or Plasma 111 mmol/L 98-107 H [facility] Creatinine [Mass/volume] in Serum or Plasma 1.53 mg/dL 0.50-0.90 H [facility] Glucose [Mass/volume] in Serum or Plasma 86 mg/dL 70-140 [facility] Alkaline phosphatase [Enzymatic activity/volume] in Serum or Plasma 72 U/L 35-104 [facility] Potassium [Moles/volume] in Serum or Plasma 4.1 mmol/L 3.4-5.1 [facility] Protein [Mass/volume] in Serum or Plasma 4.7 g/dL 6.4-8.3 [facility] Sodium [Moles/volume] in Serum or Plasma 136 mmol/L 136-145 [facility] Aspartate aminotransferase [Enzymatic activity/volume] in Se rum or Plasma 6 U/L <32 [facility] Urea nitrogen [Mass/volume] in Serum or Plasma 50 mg/dL 8-23 H [facility] Osmolality of Serum or Plasma by calculation 295 mosm/kg 275-300 [facility] Creatinine/Urea nitrogen [Mass Ratio] in Serum or Plasma 33 [facility] Bicarbonate [Moles/volume] in Serum 18 mmol/L 22-29 L [facility] Alanine aminotransferase [Enzymatic activity/volume] in Serum or Pl asma <33 [facility] Anion gap 3 in Serum or Plasma 8 mmol/L 8-15 [facility] Glomerular filtration rate/1.73 sq M pre dicted among non-blacks [Volume Rate/Area] in Serum or Plasma by Creatinine-based formula (MDRD) 35 mL/min/1.73m2 >60 L [facility] Glomerular filtration rate/1.73 sq M pre dicted among blacks [Volume Rate/Area] in Serum or Plasma by Creatinine-based formula (MDRD) 40 mL/min/1.73m2 >60 L [facility] ID Date Data Source [id number] 03/08/2020 09:35:28 PM [facility] Value Range Interpretation Code Description Data Cheyenne rce(s) Supporting Document(s) Glucose [Mass/volume] in Capillary blood by Glucometer 132 mg/dL 70- 140 [facility] ID Date Data Source [id number] 03/08/2020 04:46:38 PM [facility] Value Range Interpretation Code Description Data [place]yenne rce(s) Supporting Document(s) Glucose [Mass/volume] in Capillary blood by Glucometer 109 mg/dL 70- 140 [facility] ID Date Data Source [id number] 03/08/2020 02:41:54 PM [facility] Value Range Interpretation Code Description Data [place] rce(s) Supporting Document(s) EKG [facility] SEMOMb0dRsMYGePop1VcUiDgVAWgGF3mfyl8F5C5gQJgR7UfeAGnv6dzE7JlS4ZwJURvSTRPWQ4PcTWe jb2 [file] cNuD+x00/s9BM7/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/Ymd+jL99ry91j/s3J/YuT+zL55paFIRZzTkhQ75f568z302h546h774l357h9 46x147s440p895t266o398I68XLY9eg9AYVhNBlUVnUiHsVlyvBSH7VgJXKagOCgf2mzMLgH+xc39i5/ 2Ywk1VmjuCB/rxhv0O8JE0pLBUgV0wlkI6aE23Ugx3 J3buT+lvs2v7C8Jkk2Ra/sTOeGLn/sTO/BvPmQEGWahg4lgVLjg1biSERm9yrSEMTvfzVDRRmiWOjYJy NHIitDaFTMhs9xMFAoc2WGMYuo6AeqDsg6UfqVto7nfdSjo3znRRUu1exJAKa+Ixn9Oa3Sh+4hGI0D/Y dIUgBCYpyMpJZViZV4xplce1IjR4V1CVlbXVdyK5tk iyhvzGCLaG/OfJweu8Mvf+puicHLbFA3WNVaEZSQRKzPGGn4i73cVqfTUjXJ5PHbG+Ccq5hQBKTXka4U OGuFALENXQtJUbuCkJQFIXrtnBMfkKN4JO721R1aQpwKLnADdXUlmcHGXBf6CpLIEMAYMknxDanMleT8 YosHIzVTLbU9eS8zeGwemQwjANr+esmbtd0F8xBdeb AeCmkFoJqbstpIRKx0BUQBvFKD7J4aRRxnyzcClJPTUMFIaUiHMnRwKESjm3JUbMcw/tzTU96aPH1ZYU f7ZS6NGZLEr/OelIpVLRj9U+47QPZ/3HeR+ek/oahwlM96S1ou1MTeR/wX44Cu4lje9QBim8Ien/Q96S rTWnVkpf2NAfeME7g/iVQp4vpsHtzuSKHIkRnhaPex vMJ0SEexlqhXi/cYVQBZxZZVXRJGSZvDh6GHrQcg8wE/IR7DbXmJUE2fzF/bUjD7HWqLlQKoNcP50PuM rH5iUebDwVFB3JkRhYjkx0d7vTaBXAMhGvOeELueorD8xaHW1a7iHE/TBU9jdDBuH8KtIwQ3ZmQbrGER EOTJLMiYFKhTJOpFKVBQARWRTCIRuTTCTy0flTMaS+ [file] ID Date Data Source [id number] 03/08/2020 12:13:11 PM [facility] Name Value Range Interpretation Code Description Data Cheyenne rce(s) Supporting Document(s) [facility] XKIYBt1mMqWNQoLdd3XdKnMgTMYtCI8xoed6V1M2dMBrJ6KxrFJrh0qpQ6OaV3MvATVaHMPFBM1UdVZq jb2 [file] Ru+Finished Yarn Examiner+ryj3+3XGSWhxFniLHFT+iT8L9r0jh39t4Js [file] 2l420H2y5A0E9469k7z/f42eqh2RszO4un1aIAv8UY 362BdGwe/Y9gcSiwWA49umytI84h+30I1DEgATznyRvrD08Kg+R0/+6g3mX/ll1q4pcOlqz84wkDoadr pzqody+DCuFZ9fSeiLxu2jD1rSscaP3Q94cW8ma8mw3KSu3e6ZRS4bV/YjjHtluO0xNZxwai9Wd2l0xg Qe+ueLrbBSfwmkHvch+letter sorting machine operator/Suhu6VrU/YkxR9aQojI [file] qzbl7xX1/C91LbrKko+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/gWew0Gv69xYk+Ozq/FzkDMZJoHCr53R91t40fl/wP9cF5+WqLyXKC5cgPr dXsgjeFxHsmRYuIiKSLnUza6UD0YiHRqGOUfH9E0LC Qcoe7eANIvTFHpfJMcSfSaZWGAED5CzVEfWS6DNPd5GHE9KBExTgUqKPMsSI73KVLbNFZRNa4ymaWjAx hMRlRkGQ2jxys4U3Y0fAWpX064pBogpdEyAR4Rr2VunPIaQV2KpWIfpVYoRUZsHVNmQ4vxa6AxWeXqLD KQLo8escJqCzoLVjGwKP5qjiu5H4O3zHljvxVxQWYZ VRtqBzunVX2qvHuywhvqN7IckRCpPRBsN1SwXSVww36BGBIxGIdEObLdEaNgHUFdDUNwKsezEvTuIXBz MYTlUMAuHU5PiZAkKCDvQIODZKxjPzkbQFXdcV6snMUKd7UzIPOYQFfaLbUNQAIpVYI8CmDzKULqJ9Xi ipSywKWnKIJUCZsyJzzdNVUdeL6etOgdT6VgWTT9e7 OeVY5TE8InNANiGGQGEGK0s5HqXYTcmcltovhjPhVbQHTvPRYzSPDlBK1Odo1afGGotzJyJULCLDitYo igJD5xxWdvdlwjT0DjbJTlFDD+KcNvPE6ssm1+DjAdOWDnHeq7EEEbLWjrOKRpTZJcITZaD7dlRPUdLt XhDCLdIjEtIJMmKMDyBLJyG146toMqJp9+XK3ib5We VflgUBIBWWKkGLKpHYKqZUG5KlRbGVYiJEDdUZWgOcV3VbUqEyQSTAQgZBW8DvveLCApDXEdUFImXDct BNReHDs6YLV1HNBxMEYwMI3eIiTtDREmCmT8BvqsXIFdOTZecrUHSWWuFXLaYVEsKEN8NOSkVVFkAUxw IZSgLDRrDJI3LYXoJSVmHZ2oPdJrATTnDATpOtabUS UxNDLeysHOZWRzARLbITK2XaIzAWQdHEFkARrhUBXeBZSsSzi2DLNmYPXtAM2qCnWtDCUbTGN9LZjvJQ BsNMOchfLGGUDgZLNrTUIoRuXyKOWxJYJaXEtjKIGiKXHcAnZzJDIiICUxOY1vCsEgZDHdYNU3JMYkOU YjKIFqpoOXOJLlXRVhCCn6SGXlRANcANEgWZflJSNu YDKcSBL2ZSIyINJhXF1jKbRzCOVhNOXjIWSlGATwJXPrfhEZUXHpCGMnGAN1AWJsIGBhDRToVAxgBXSy NCLyPcm4TOWlIGGkFX5qKbBhOMLyNOA5PJPnVLJnWFWuxuPGYZRiRTX9YbMbGiWaUWVjNCMoPQpxSMWj RTJyZxH2WXCqYNMkZX4xZaHkDXIzXHI2PgCjUBZwPH ZvoqHDUOIsEFCaMRO8YdYbSZBdCCOqMVnxXBMyFIm1HQu7VYTkRCJoLC9iMbPqGSMwQoV2YcQnUQDvXT AuphURZHYmSIP3KqD9BACpAHHwIQZtKDbcWTWuCKfhJUEmOEExTRStIO1bUlCpKPAyQJLqTNYmIqI4Op MoRyVCkZBjbCoeiut8WIwfJ3q0LYBpCOyvLA4dmcKs IINxJvewVw1rrKF9UFDoRybTVf0Rx3CntxL9wnGwNot1OKRzZrLsRU2Y ID Date Data Source [id number] 03/08/2020 12:04:38 PM [facility] Name Value Range Interpretation Code Description Data [place]yenne e(s) Supporting Document(s) Leukocytes [#/volume] in Blood by Automated count 0.7 10*3/uL 4-10 Health system No significant change since last result called Erythrocytes [#/volume] in Blood by Automated count 2.36 10*6/uL 4.1- 5.3 L [facility] Hemoglobin [Mass/volume] in Blood 7.2 g/dL 11.5-15.5 L [facility] Hematocrit [Volume Fraction] of Blood by Automated count 20.7 % 3 6-45 Health system No significant change since last result called Erythrocyte mean corpuscular volume [Entitic volume] by Auto mated count 87.8 fL 80-96 [facility] Erythrocyte mean corpuscular hemoglobin [Entitic mass] by Automated count 30.7 pg 27-33 [facility] Erythrocyte mean corpuscular hemoglobin concentration [Mass/volume] by Automated count 35.0 g/dL 32.0-36.0 [facility] distribution width [Ratio] by Automated count 13.8 % 11.5-14.5 [facility] Platelets [#/volume] in Blood by Automated count 17 10*3/uL 150-400 Health system No significant change since last result called ID Date Data Source [id number] 03/08/2020 11:38:54 AM [facility] Name Value Range Interpretation Code Description Data Cheyenne rce(s) Supporting Document(s) Glucose [Mass/volume] in Capillary blood by Glucometer 128 mg/dL 70- 140 [facility] ID Date Data Source [id number] 03/08/2020 10:03:09 AM [facility] CT ABDOMEN PELVIS WITHOUT CONTRAST [id number] FINAL RESULTInterpreted by:Gal Pagan, MDPROCEDURE INFORMATION: Exam: [...] rce(s) Supporting Document(s) ID Date Data Source [id number] 03/08/2020 08:00:45 AM [facility] Name Value Range Interpretation Code Description Data [place] rce(s) Supporting Document(s) Glucose [Mass/volume] in Capillary blood by Glucometer 129 mg/dL 70- 140 [facility] ID Date Data Source [id number] 03/08/2020 03:16:02 AM [facility] Name Value Range Interpretation Code Description Data [place] rce(s) Supporting Document(s) Albumin [Mass/volume] in Serum or Plasma by Bromocresol green (BCG) dye binding method 2.6 g/dL 3.5-5.2 [facility] Bilirubin.total [Mass/volume] in Serum or Plasma 1.0 mg/dL <1.2 [facility] Calcium [Mass/volume] in Serum or Plasma 7.9 mg/dL 8.8-10.2 L [facility] Chloride [Moles/volume] in Serum or Plasma 111 mmol/L 98-107 H [facility] Creatinine [Mass/volume] in Serum or Plasma 1.52 mg/dL 0.50-0.90 H [facility] Glucose [Mass/volume] in Serum or Plasma 137 mg/dL 70-140 [facility] Alkaline phosphatase [Enzymatic activity/volume] in Serum or Plasma 71 U/L 35-104 [facility] Potassium [Moles/volume] in Serum or Plasma 4.4 mmol/L 3.4-5.1 [facility] Protein [Mass/volume] in Serum or Plasma 4.6 g/dL 6.4-8.3 L [facility] Sodium [Moles/volume] in Serum or Plasma 136 mmol/L 136-145 [facility] Aspartate aminotransferase [Enzymatic activity/volume] in Serum or Plasma <32 [facility] Urea nitrogen [Mass/volume] in Serum or Plasma 67 mg/dL 8-23 H [facility] Osmolality of Serum or Plasma by calculation 304 mosm/kg 275-300 H [facility] Creatinine/Urea nitrogen [Mass Ratio] in Serum or Plasma 44 [facility] Bicarbonate [Moles/volume] in Serum 20 mmol/L 22-29 L [facility] Alanine aminotransferase [Enzymatic activity/volume] in Serum or Pl asma <33 [facility] Anion gap 3 in Serum or Plasma 5 mmol/L 8-15 L [facility] Glomerular filtration rate/1.73 sq M pre dicted among non-blacks [Volume Rate/Area] in Serum or Plasma by Creatinine-based formula (MDRD) 35 mL/min/1.73m2 >60 L [facility] Glomerular filtration rate/1.73 sq M pre dicted among blacks [Volume Rate/Area] in Serum or Plasma by Creatinine-based formula (MDRD) 41 mL/min/1.73m2 >60 L [facility] ID Date Data Source [id number] 03/08/2020 03:16:02 AM [facility] Value Range Interpretation Code Description Data [place] rce(s) Supporting Document(s) Urate [Mass/volume] in Serum or Plasma 6.9 mg/dl 2.4-5.7 H [facility] ID Date Data Source [id number] 03/08/2020 03:16:02 AM [facility] Value Range Interpretation Code Description Data [place] rce(s) Supporting Document(s) Magnesium [Mass/volume] in Serum or Plasma 2.2 mg/dL 1.6-2.4 [facility] ID Date Data Source [id number] 03/08/2020 03:16:02 AM [facility] Value Range Interpretation Code Description Data [place] rce(s) Supporting Document(s) Phosphate [Mass/volume] in Serum or Plasma 3.5 mg/dL 2.5-4.5 [facility] ID Date Data Source [id number] 03/08/2020 08:57:35 AM EST [facility] Name Value Range Interpretation Code Description Data [place]yenne rce(s) Supporting Document(s) Lactate dehydrogenase [Enzymatic activit y/volume] in Serum or Plasma by Lactate to pyruvate reaction 219 U/L 122-214 H [facility] ID Date Data Source [id number] 03/08/2020 10:30:44 AM [facility] Name Value Range Interpretation Code Description Data [place] rce(s) Supporting Document(s) Haptoglobin [Mass/volume] in Serum or Plasma 198 mg/dl 30-200 [facility] ID Date Data Source [id number] 03/08/2020 08:20:21 AM [facility] Name Value Range Interpretation Code Description Data [place] rce(s) Supporting Document(s) Leukocytes [#/volume] in Blood by Automated count 0.5 10*3/uL 4-10 Health system No significant change since last result called Erythrocytes [#/volume] in Blood by Automated count 1.99 10*6/uL 4.1- 5.3 L [facility] Hemoglobin [Mass/volume] in Blood 6.1 g/dL 11.5-15.5 [facility] Hematocrit [Volume Fraction] of Blood by Automated count 17.4 % 3 6-45 Health system No significant change since last result called Erythrocyte mean corpuscular volume [Entitic volume] by Auto mated count 87.6 fL 80-96 [facility] Erythrocyte mean corpuscular hemoglobin [Entitic mass] by Automated count 30.9 pg 27-33 [facility] Erythrocyte mean corpuscular hemoglobin concentration [Mass/volume] by Automated count 35.2 g/dL 32.0-36.0 [facility] Erythrocyte distribution width [Ratio] by Automated count 13.9 % 11.5-14.5 [facility] Platelets [#/volume] in Blood by Automated count 17 10*3/uL 150-400 Health system No significant change since last result called Differential cell count method - Blood [facility] Neutrophils/100 leukocytes in Blood by Automated count 2 % [facility] Lymphocytes/100 leukocytes in Blood by Automated count 78 % [facility] Monocytes/100 leukocytes in Blood by Automated count 4 % [facility] Eosinophils/100 leukocytes in Blood by Automated count 2 % [facility] Neutrophils [#/volume] in Blood by Automated count 0.01 10*3/uL 1.8-7 .0 L [facility] Lymphocytes [#/volume] in Blood by Automated count 0.39 10*3/uL 1.2-4 .0 L [facility] Monocytes [#/volume] in Blood by Automated count 0.02 10*3/uL 0-0.8 [facility] Eosinophils [#/volume] in Blood by Automated count 0.01 10*3/uL 0-0.5 [facility] Nucleated erythrocytes/100 leukocytes [Ratio] in Blood by Automated count 4 /100{WBCs} 0-0 H [facility] Variant lymphocytes/100 leukocytes in Blood by Manual count 4 % [facility] Blasts/100 leukocytes in Blood by Manual count 8 % [facility] Confirmed [id number] Plasma cells/100 leukocytes in Blood 2 % [facility] Lymphocytes [#/volume] in Blood 0.02 10*3/uL 0 H [facility] Blasts [#/volume] in Blood by Manual count 0.04 10*3/uL 0-0 H [facility] Plasma cells [#/volume] in Blood by Manual count 0.01 10*3/uL 0-0 H [facility] Dwarf Megakaryocyte 2 % 0-0 H [facility] ID Date Data Source [id number] 03/07/2020 10:20:43 PM EST [facility] Name Value Range Interpretation Code Description Data Cheyenne rce(s) Supporting Document(s) Color of Urine [facility] Clarity of Urine [facility] Specific gravity of Urine by Refractometry automated 1.014 1.003 -1.030 [facility] pH of Urine by Automated test strip 5.0 5.0-8.0 [facility] Protein [Mass/volume] in Urine by Automated test strip Neg [facility] Glucose [Mass/volume] in Urine by Automated test strip Neg [facility] Ketones [Mass/volume] in Urine by Automated test strip Neg [facility] Bilirubin.total [Presence] in Urine by Automated test strip Negative [facility] Hemoglobin [Presence] in Urine by Automated test strip Neg ative A [facility] Leukocyte esterase [Presence] in Urine by Automated test strip Negative [facility] Nitrite [Presence] in Urine by Automated test strip Negati ve [facility] Leukocytes [#/area] in Urine sediment by Automated count 0 /HPF 0 -5 [facility] Erythrocytes [#/area] in Urine sediment by Automated count 0-3 [facility] Service comment [facility] Epithelial cells.squamous [#/area] in Urine sediment by Auto mated count 1 /HPF None A [facility] ID Date Data Source [id number] 03/08/2020 07:16:37 PM [facility] Service Cmnt XXX-Imp : NoneMicroorganism XXX Cult : NEGATIVE for fecal occult blood by immunochromatography. This test is not designed to detect bleeding from the upper GI tract. To detect bleeding from the upper tract, order Fecal Occult Blood, Upper GI (Hemoccult-SENSA). Name Value Range Interpretation Code Description Data [place]yenne rce(s) Supporting Document(s) ID Date Data Source [id number] 03/07/2020 09:18:45 PM [facility] Name Value Range Interpretation Code Description Data [place] rce(s) Supporting Document(s) Glucose [Mass/volume] in Capillary blood by Glucometer 148 mg/dL 70- 140 H [facility] ID Date Data Source [id number] 03/07/2020 09:52:09 PM [facility] Name Value Range Interpretation Code Description Data [place] rce(s) Supporting Document(s) Leukocytes [#/volume] in Blood by Automated count 0.8 10*3/uL 4-10 Health system Called to and read back by Katrina Helton RN 10H 2103 [place] 1478 Erythrocytes [#/volume] in Blood by Automated count 1.95 10*6/uL 4.1- 5.3 L [facility] Hemoglobin [Mass/volume] in Blood 6.0 g/dL 11.5-15.5 L [facility] Hematocrit [Volume Fraction] of Blood by Automated count 17.4 % 3 6-45 Health system Called to and read back by Katrina Helton RN 10H 2103 [place] 1478 Erythrocyte mean corpuscular volume [Entitic volume] by Auto mated count 89.6 fL 80-96 [facility] Erythrocyte mean corpuscular hemoglobin [Entitic mass] by Automated count 30.9 pg 27-33 [facility] Erythrocyte mean corpuscular hemoglobin concentration [Mass/volume] by Automated count 34.5 g/dL 32.0-36.0 [facility] Erythrocyte distribution width [Ratio] by Automated count 15.0 % 11.5-14.5 H [facility] Platelets [#/volume] in Blood by Automated count 26 10*3/uL 150-400 LL [facility] Called to and read back by Katrina Helton RN 10H 2103 [place] 2924 Differential cell count method - Blood [facility] Neutrophils/100 leukocytes in Blood by Automated count 1 % [facility] Lymphocytes/100 leukocytes in Blood by Automated count 74 % [facility] Monocytes/100 leukocytes in Blood by Automated count 3 % [facility] Eosinophils/100 leukocytes in Blood by Automated count 3 % [facility] Neutrophils [#/volume] in Blood by Automated count 0.01 10*3/uL 1.8-7 .0 L [facility] Lymphocytes [#/volume] in Blood by Automated count 0.59 10*3/uL 1.2-4 .0 L [facility] Monocytes [#/volume] in Blood by Automated count 0.02 10*3/uL 0-0.8 [facility] Eosinophils [#/volume] in Blood by Automated count 0.02 10*3/uL 0-0.5 [facility] Nucleated erythrocytes/100 leukocytes [Ratio] in Blood by Automated count 3 /100{WBCs} 0-0 H [facility] Variant lymphocytes/100 leukocytes in Blood by Manual count 9 % [facility] Blasts/100 leukocytes in Blood by Manual count 10 % [facility] Lymphocytes [#/volume] in Blood 0.07 10*3/uL 0 H [facility] Blasts [#/volume] in Blood by Manual count 0.08 10*3/uL 0-0 H [facility] Anisocytosis [Presence] in Blood by Light microscopy [facility] Poikilocytosis [Presence] in Blood by Light microscopy [facility] ID Date Data Source [id number] 03/08/2020 06:57:34 AM EST [facility] Name Value Range Interpretation Code Description Data [place]yenne rce(s) Supporting Document(s) Clerical Check [facility] No Hemolysis SeenNo Hemolysis Seen Direct antiglobulin test.poly specific reagent [Presence] on Red Blood Cells [facility] Direct antiglobulin test.poly specific r eagent [Presence] on Red Blood Cells --after transfusion reaction [facility] Transfusion reaction [Interpretation] in Plasma or RBC Narrative [facility] OPOSOPOS Blood product unit ID [#] Upst [facility] Blood bank comment [facility] ID Date Data Source [id number] 03/07/2020 06:17:25 PM [facility] Name Value Range Interpretation Code Description Data [place] rce(s) Supporting Document(s) Platelets [#/volume] in Blood by Automated count 28 10*3/uL 150-400 Health system Called to and read back by Kecia Soto RN 10H at 1817 by 2086 ID Date Data Source [id number] 03/07/2020 04:52:40 PM [facility] Name Value Range Interpretation Code Description Data [place] rce(s) Supporting Document(s) Glucose [Mass/volume] in Capillary blood by Glucometer 166 mg/dL 70- 140 [facility] ID Date Data Source [id number] 03/07/2020 01:23:31 PM [facility] Value Range Interpretation Code Description Data [place]yenne rce(s) Supporting Document(s) History and Physical [facility] BRJVJm6bQsDGVqGw56/AKXtaWZFbt8GzWWywLZz4WMmbZZZnM8DvWVC3dP8fTXA3NFjDUrKxRlRhMODz lbm [file] AgICAgICAgICAgICAgICAgICAgICAgICAgICAgICAgICAgICAgICAgICAgICAgICAgICAgICAgICAgIC AgICAgICAgICAgICAgICAgICAgICAgICAgICAgICAg CIRqFTKnRO4OWLKxOBBfUVHmIIMsNJHtLPHcFLVwSIXsDSWnEEGvOXDaERDvZFKtWTRcYZYhNELvEQEl ZKGfUXAuCMOrMXZlGZQkCDIcLVAwUNWpENNrGADpXNOqFQLsBADcFBOrJKWfPOJsOD9PXTQhBISdRYTg ICAgICAgICAgICAgICAgICAgICAgICAgICAgICAgIC AgICAgICAgICAgICAgICAgICAgICAgICAgICAgICAgICAgICAgICAgICAgICAgICAgICAgICAgICAgIA 0KICAgICAgICAgICAgICAgICAgICAgICAgICAgICAgICAgICAgICAgICAgICAgICAgICAgICAgICAgIC AgICAgICAgICAgICAgICAgICAgICAgICAgICAgICAg XIQiAETnRGSvCA3IGPLdNNLsECMjTGFpRWKqZEBnFEOmWEFtAVYzDKMwBBFhWPPcIZScCTQvXASsFZLy TCEzAPPdFFXfBWBaOBAfYXUwSIAnPWWfALYxCWHwKBElAZVgSJOeVNEuOTUbUARoKJRpST2EDKIfJNWz ICAgICAgICAgICAgICAgICAgICAgICAgICAgICAgIC AgICAgICAgICAgICAgICAgICAgICAgICAgICAgICAgICAgICAgICAgICAgICAgICAgICAgICAgICAgIC AcVX7QSRXdSWUsCEFbZCKpCNWdMTPqVCOdDEBvDVZnAVHsEHXeCDPkRJBtHTBnYQRkXYSeRMBzVHBcFN AgICAgICAgICAgICAgICAgICAgICAgICAgICAgICAg EZSyZAFiXNAqKNNdMC5HDQFlGBCnSJKbIOHfDQEkGQSdVHRjIUImRDUtHYBeKMDzQUJnDCUsMDEmYQSt QRDcMZCwISQjPBYzUHIsUTSzTDWfHEZuYJCzQDPkTZOpAJAfNLCvKVIlTWOaCBGrRMSlMYHmTM0UTEHv ICAgICAgICAgICAgICAgICAgICAgICAgICAgICAgIC AgICAgICAgICAgICAgICAgICAgICAgICAgICAgICAgICAgICAgICAgICAgICAgICAgICAgICAgICAgIC GvXTFlZL5CYYNyMJRiAISlSDUfHSPyFZOtWWWsJHFxCGHaXXMzLLByKVJpCTVaBLWhXPDuFUAiNPEeGX AgICAgICAgICAgICAgICAgICAgICAgICAgICAgICAg BJNeBTZiMMQrUOSgWVXeEP6QVD82zZDrt1J3KXXsZX0pccs/Nt8KOAfpxiOwrKTpLS3BSaOjYU1gvs7U QwYnSX3xit4LKDsOBcUnV1A7cMGtASFsELZVWvHsG14vUOsfYb56VVruHKPjCrKaCAd3Sk9SMbHxV4ch DQFmKkH7ZLIcYiL7ZFWpWxV7WHQuBgZoDJUzHXAgBZ VfXOEZWBR7LZAwCeWeJPfpYL4Si5KclPM2DDy+Rr3SBJ7sk1NtJYiiMEKbMW8tbg1WXJfHUyJkQ9Xdbs B1HDO9QTYgMt0EICRhGRFqjGCeJcOwATIREnPoV8XfgI49LTEFXe0+FEdkhcLjHzePVeD8PBHyk4OqFH w5FH1LDDMtFSs2tHTbYYUKMDG8FYFfiWAvZRFzKMJr EcNpIAsxc7MeGQ4DIUH4LFEzRGcnVvToJXDkERx3AnPXHMwFWhOnP9Iix1ZnVpK9ETGyYkPzFHdhBGXw DlF9QQ55zYchRE9ZUWClTWYxCM91NEF8DUZsJo2CSt5MElElHG5xev5AGsqfLAXuPxuDMly1MWpiIA5H yEXeL1NreFAfo7rOLmDrM3ONJUEpCJZlBf8CXGLkVa TjDQKmMMteJX0iZWBoOIIUdQkwsaH2FO6SMM7zpfPpUY1BGsXnMl9bCo4WTfDxE1DdS4HgMRBcFOKONS dvYX0EEAvkEA5oAP2Bd7SCuIIvrW5lke6RAXMhDVVfJzqfdg3WTylcQ1B4dZpfMRHrZxMgRMTZBLjvVY 0BNZXhFAC6NWFrSHImLDMHLgCpG51hFA3QG8Cuu67k CgF9GISwInRwJBjoAC71xDhfelPylRBawEjqLF3JRx5+DQplbmRvYmoNCnhyZWYNCjAgMzgNCjAwMDAw UINqMFWiRnH3IlUnFk0CHUEbDQSxSIDaJgTbUQNqUNZgPZxtHSYwAOI8PpK5CHUnPITuJD6WMtIvWAFn OGJqVHmhOKGmMONlmu4KOWFhGRAiJVQ1PfCkKIJdLV BdINumWXJvEOH4XRQ4LJOpCNBiJQ1WYgSrCHEzNKLkNUNzBJXhSUVsct5ZKQZqLNJmFCMrEmAtNADjQI AmRVahPHFcFZT0DXSjXJLzQKJiSM3VLoRoWAQbVKB8HcchFTYeZXPlho5SQFNzLKAiDqQ4GlHzCMOmMV RzJDjnDFDqNLR8Cey5URNlYRAqBN0SQoHhLSTfDAB6 FDZkMUHfCDAqjg4KQGQnOTJqFAAyQcFjEBFnRRMuPOcsUAFpSCY0BBQmTYMnEOZtVB5DBvVtLRUpJkC4 MNZfSBVmYLIhud8CSKJhJCKcEMg8OFRsHLKlAMPiNBsoCEHsRZNiSXJqQVTqHAQxPG4CRgZfWZZzOvCw SBbqSXMsFCKfdp2FTAFfWBVfIsY5RKUkMWQkJSDiRK akBHFkOYVeFrJ4FQReOAJjUF6XTfHtCXRnOfN6RJCmVVErYAZqnk4LLKFvQTJgZwWmVAJxIIFpMOYoCF caWZQsDIN7SGd4QXGiELShGP7IAdFgQTQdLsQ4ENAzXBSqPEPjub8XLCWwSYGrCJu1SSSkZEOiUVOiDE riKYTcZXC5DnC4JVTiFDRbID1NQfZeBHQkMrM5GWHe NFZiRHEkcf9YABSzNIGhWmg0LFNnGHLsGAZyFFduBWHkUJI3BSFyXWFvYGDrRF2SSxBjQAWuPniqUzKq NWMyVGPcyi5FLUYsIHRsBOPfESVwATAaHNBqGDbgBZUwGBN4TSW4XJNmTLFiGI1WOcQdGXZnYeb3ZAAq FGBsATOekk2SKOGsVEGcTUHmCKDoMXThHYEmCBcwUO OsHXWgMWhvFCIeNBFhBZ5RPzVkJTCwTZJ8MpDgWXPcGCYuwb4RPUImTST3TPzkGNUvRCNpTLFbYBe7hk JygITiZHq1OD7PK7CzekOdFlaSSh0Yi450YHJ1RDEcTa7MR9kpMl2cTLIvYZKLBe1DIEd3Zgw1CBS8N5 L1PHfgSpVkMNS5KXP9AFJiAeHdZQP7FuD+IDxjNzY1 BdB7WKQfMOEsAyIrHxO6Ltk4EgDzBvUcGgVdJs0uLQVZUx5+VXjgbSIskOkuZAAEBvCkNRQ5KFywPWGU Rg0K ID Date Data Source [id number] 03/09/2020 07:09:42 AM [facility] Name Value Range Interpretation Code Description Data [place] rce(s) Supporting Document(s) Blood bank comment [facility] ID Date Data Source [id number] 03/07/2020 12:23:13 PM [facility] Value Range Interpretation Code Description Data [place] rce(s) Supporting Document(s) Glucose [Mass/volume] in Capillary blood by Glucometer 184 mg/dL 70- 140 H [facility] ID Date Data Source [id number] 03/07/2020 11:46:33 AM [facility] Value Range Interpretation Code Description Data [place] rce(s) Supporting Document(s) Prothrombin time (PT) 16.6 s 12.5-14.9 H [facility] INR in Platelet poor plasma by Coagulation assay 1.32 [facility] Routine intensity oral anticoagulation I NR is typically 2.0-3.0. Target INR must be clinically individualized. ID Date Data Source [id number] 03/07/2020 11:46:33 AM [facility] Value Range Interpretation Code Description Data [place] rce(s) Supporting Document(s) aPTT in Platelet poor plasma by Coagulation assay 32.9 s 24.0-33. 0 [facility] ID Date Data Source [id number] 03/07/2020 03:03:10 PM [facility] Value Range Interpretation Code Description Data [place] rce(s) Supporting Document(s) Leukocytes [#/volume] in Blood by Automated count 1.2 10*3/uL 4-10 Health system No significant change since last result called Erythrocytes [#/volume] in Blood by Automated count 2.06 10*6/uL 4.1- 5.3 L [facility] Hemoglobin [Mass/volume] in Blood 6.3 g/dL 11.5-15.5 L [facility] Hematocrit [Volume Fraction] of Blood by Automated count 18.0 % 3 6-45 Health system No significant change since last result called Erythrocyte mean corpuscular volume [Entitic volume] by Auto mated count 87.6 fL 80-96 [facility] Erythrocyte mean corpuscular hemoglobin [Entitic mass] by Automated count 30.4 pg 27-33 [facility] Erythrocyte mean corpuscular hemoglobin concentration [Mass/volume] by Automated count 34.7 g/dL 32.0-36.0 [facility] distribution width [Ratio] by Automated count 14.1 % 11.5-14.5 [facility] Platelets [#/volume] in Blood by Automated count 10 10*3/uL 150-400 LL [facility] No significant change since last result called Differential cell count method - Blood [facility] Neutrophils/100 leukocytes in Blood by Automated count 3 % [facility] Lymphocytes/100 leukocytes in Blood by Automated count 87 % [facility] Monocytes/100 leukocytes in Blood by Automated count 0 % [facility] Eosinophils/100 leukocytes in Blood by Automated count 1 % [facility] Neutrophils [#/volume] in Blood by Automated count 0.04 10*3/uL 1.8-7 .0 L [facility] Lymphocytes [#/volume] in Blood by Automated count 1.04 10*3/uL 1.2-4 .0 L [facility] Monocytes [#/volume] in Blood by Automated count 0.00 10*3/uL 0-0.8 [facility] Eosinophils [#/volume] in Blood by Automated count 0.01 10*3/uL 0-0.5 [facility] Nucleated erythrocytes/100 leukocytes [Ratio] in Blood by Automated count 1 /100{WBCs} 0-0 H [facility] Blasts/100 leukocytes in Blood by Manual count 9 % [facility] Confirmed by DR. PASCAL Blasts [#/volume] in Blood by Manual count 0.11 10*3/uL 0-0 H [facility] ID Date Data Source [id number] 03/07/2020 08:13:34 AM [facility] Name Value Range Interpretation Code Description Data [place]yenne rce(s) Supporting Document(s) Glucose [Mass/volume] in Capillary blood by Glucometer 162 mg/dL 70- 140 H [facility] ID Date Data Source [id number] 03/07/2020 01:28:04 AM [facility] XR CHEST FRONTAL ONLY [id number] RESULTI nterpreted by:Adelaida Peña, MDPROCEDURE INFORMATION: Exam: [...] rce(s) Supporting Document(s) ID Date Data Source [id number] 03/12/2020 08:58:45 AM [facility] 03/11/2020,[id number] Name Value Range Interpretation Code Description Data [place] rce(s) Supporting Document(s) ABO and Rh group [Type] in [facility] Performed at [facility] [place], [place], [place] ID Date Data Source [id number] 03/12/2020 08:58:45 AM [facility] Name Value Range Interpretation Code Description Data [place] rce(s) Supporting Document(s) ABO and Rh group [Type] in [facility] Blood group antibody screen [Presence] in Serum or Plasma [facility] Performed at [facility] [place], [place] M ON 10H AT 2220 Blood bank [facility] ID Date Data Source [id number] 03/07/2020 12:47:00 AM EST [facility] Name Value Range Interpretation Code Description Data [place] rce(s) Supporting Document(s) SARS-CoV-2 RNA 2019 nCoV Real-Time RT-PCR: NOT DETECTED [facility] This lab was ordered by [facility] and reported by [facility] ID Date Data Source [id number] 03/07/2020 09:40:06 AM [facility] Name Value Range Interpretation Code Description Data [place]yenne rce(s) Supporting Document(s) Specimen source [Identifier] of Unspecified specimen [facility] SARS-CoV-2 RNA 2019 nCoV Real-Time RT-PCR: NOT DETECTED [facility] Assay Performed [facility] Patients first test for condition [facility] Patient employed in healthcare setting [facility] Patient has symptoms related to condition [facility] When did you start to experience these symptoms [Date and time] [Phen X] [facility] Patient was hospitalized because of this condition [facility] patient was admitted to ICU for condition [facility] Patient resides in a congregate care setting [facility] status [facility] ID Date Data Source [id number] 03/07/2020 05:34:02 AM [facility] Name Value Range Interpretation Code Description Data Cheyenne rce(s) Supporting Document(s) ABO and Rh group [Type] in Blood [facility] Blood bank comment [facility] ID Date Data Source [id number] 03/07/2020 02:00:03 AM [facility] Name Value Range Interpretation Code Description Data Cheyenne rce(s) Supporting Document(s) Triiodothyronine (T3) Free [Mass/volume] in Serum or Plasma 1.41 pg/mL 2.00-4.40 [facility] ID Date Data Source [id number] 03/07/2020 02:00:03 AM [facility] Name Value Range Interpretation Code Description Data Cheyenne rce(s) Supporting Document(s) Albumin [Mass/volume] in Serum or Plasma by Bromocresol green (BCG) dye binding method 2.9 g/dL 3.5-5.2 [facility].total [Mass/volume] in Serum or Plasma 0.6 mg/dL <1.2 [facility] Calcium [Mass/volume] in Serum or Plasma 8.1 mg/dL 8.8-10.2 L [facility] Chloride [Moles/volume] in Serum or Plasma 107 mmol/L 98-107 [facility] Creatinine [Mass/volume] in Serum or Plasma 1.51 mg/dL 0.50-0.90 H [facility] Glucose [Mass/volume] in Serum or Plasma 213 mg/dL 70-140 H [facility] Alkaline phosphatase [Enzymatic activity/volume] in Serum or Plasma 80 U/L 35-104 [facility] Potassium [Moles/volume] in Serum or Plasma 4.4 mmol/L 3.4-5.1 [facility] Protein [Mass/volume] in Serum or Plasma 5.0 g/dL 6.4-8.3 L [facility] Sodium [Moles/volume] in Serum or Plasma 137 mmol/L 136-145 [facility] Aspartate aminotransferase [Enzymatic activity/volume] in Se rum or Plasma 6 U/L <32 [facility] Urea nitrogen [Mass/volume] in Serum or Plasma 82 mg/dL 8-23 H [facility] Osmolality of Serum or Plasma by calculation 314 mosm/kg 275-300 H [facility] Creatinine/Urea nitrogen [Mass Ratio] in Serum or Plasma 54 [facility] Bicarbonate [Moles/volume] in Serum 20 mmol/L 22-29 L [facility] Alanine aminotransferase [Enzymatic activity/volume] in Seru m or Plasma 8 U/L <33 [facility] Anion gap 3 in Serum or Plasma 10 mmol/L 8-15 [facility] Glomerular filtration rate/1.73 sq M pre dicted among non-blacks [Volume Rate/Area] in Serum or Plasma by Creatinine-based formula (MDRD) 35 mL/min/1.73m2 >60 L [facility] Glomerular filtration rate/1.73 sq M pre dicted among blacks [Volume Rate/Area] in Serum or Plasma by Creatinine-based formula (MDRD) 41 mL/min/1.73m2 >60 L [facility] ID Date Data Source [id number] 03/07/2020 02:00:03 AM [facility] Name Value Range Interpretation Code Description Data Cheyenne rce(s) Supporting Document(s) Thyroxine (T4) free [Mass/volume] in Serum or Plasma 1.00 ng/dL 0.93- 1.70 [facility] ID Date Data Source [id number] 03/07/2020 02:00:03 AM [facility] Value Range Interpretation Code Description Data Cheyenne rce(s) Supporting Document(s) Thyrotropin [Units/volume] in Serum or Plasma 5.700 u[IU]/mL 0.270-4. 200 H [facility] ID Date Data Source [id number] 03/07/2020 02:20:48 AM [facility] Value Range Interpretation Code Description Data Cheyenen rce(s) Supporting Document(s) Leukocytes [#/volume] in Blood by Automated count 1.3 10*3/uL 4-10 Health system Called to and read back by Neil beyer RN on at 135 by 1521 Erythrocytes [#/volume] in Blood by Automated count 1.92 10*6/uL 4.1- 5.3 L [facility] Hemoglobin [Mass/volume] in Blood 5.9 g/dL 11.5-15.5 [facility] Hematocrit [Volume Fraction] of Blood by Automated count 17.0 % 3 6-45 Health system Called to and read back by Neil beyer RN on at 135 by 1521 Erythrocyte mean corpuscular volume [Entitic volume] by Auto mated count 88.4 fL 80-96 [facility] Erythrocyte mean corpuscular hemoglobin [Entitic mass] by Automated count 30.8 pg 27-33 [facility] Erythrocyte mean corpuscular hemoglobin concentration [Mass/volume] by Automated count 34.9 g/dL 32.0-36.0 [facility] E[facility]th[facility] distribution width [Ratio] by Automated count 13.6 % 11.5-14.5 [facility] Platelets [#/volume] in Blood by Automated count 12 10*3/uL 150-400 Health system Called to and read back by Neil beyer RN on at 135 by 1521Confirmed ID Date Data Source [id number] 03/07/2020 12:28:08 AM [facility] Name Value Range Interpretation Code Description Data Cheyenne rce(s) Supporting Document(s) Glucose [Mass/volume] in Capillary blood by Glucometer 198 mg/dL 70- 140 H [facility] ID Date Data Source [id number] 03/14/2020 11:07:00 AM [facility] Cytogenetics ReportName: PATRICIA COTTON V.MR N: [id number] Number: [id number] Date: 03/07/2020 00:00Received Date: 03/12/2020 15:45Physician(s): LISA VELEZ MD BEDoris,SHELLY VALLEJOpecimen(s) ReceivedA: Bone Marrow - Interphase FISH onlyClinical [id number] patient with history of CMML, concern for conversion to AMLTEST REQUESTED/PERFORMED: Fluorescence in situ hybridization - FISH DiagnosisFluorescence in situ hybridization (FISH) could not be performed due toinsufficient specimen. 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 Please correlate with the concurrentHematopathology report [id number]. Electronically Signed By Yokasta Curran MD, PhD AttendingPathologist 03/14/2020 11:07:08 Name Value Range Interpretation Code Description Data Cheyenne rce(s) Supporting Document(s) ID Date Data Source [id number] 03/09/2020 04:57:00 PM [facility] Hematopathology ReportName: PATRICIA COTTONMRN: [id number] Number: [id number] Date: 03/07/2020 00:00Received Date: 03/07/2020 13:38Physician(s): LISA VELEZ MD GILLIGAN, DIANA M,MDSpecimen(s) ReceivedA: Bone Marrow Biopsy, RPIC; Received 1 biopsy and 10 touch prepsB: Blood; Received 4 PB smearsC: Core Biopsy, Flow Cytometry; [facility] HistoryHistory of CMML, concern for conversion to [...] Signed Out03/08/2020 InterpretationPERIPHERAL BLOOD: CBC performed at [facility] #[id number](03/07/20)WBC 1.2 K/uLRBC *2.06 M/uLHgb *6.3 g/dLHct 18.0 [...] % Blasts 3.0 % Neutrophils 1.0 % Xrfclwrzegj09.0 % Lymphocytes--------100.0 % No bone marrow aspirate [...] Signed Out03/08/2020 InterpretationAcute Panel for Yury Iqbal [facility] 141 [id number] following markers were assayed: CD45 (gate), CD1a, CD2, CD3, CD4, CD5,CD7, CD8, CD10, CD11b, CD13, CD14, CD15, CD19, CD20, CD25,CD33, CD34,CD38, CD41, CD56, CD57, CD64, CD71, CD117, CD123, [place], Lambda, andHLA-DR.Events: [id number]: Routinely a minimum of 50,000 events are collected in each paneltube. Due to sample cellularity and/or processing this number was notachievable for this sample.Viability: 72%NOTE: Results are based on a sample that was partially compromised due tothe presence of greater than 20% non-viable leukocytes.Flow Cytometry Differential (CD45/SSC)Lymphocyte Turin: 23%CD45 dim [place]in: 3%Monocyte [place]: 1%Granulocyte [place]: 15%Nucleated/Erythroid [place]: 37%The lymphocyte gate showsB-Cells (CD19): 3%Tehama/Lambda Ratio: 2.3T- Cells (CD3): 95%CD4/CD8 Ratio: 0.6NK Cells: 2%Results (expressed as % of LYMPHOCYTE gate):B-Cell Markers: [place] = 1.9, Lambda = 0.9, CD19 = 3, CD20 = 3, CD19/10 =1, CD19/CD5 = 2, CD38/CD20 = 1Light chain as % of B-Cells: CD19/Teh[place] = 56, CD19/Lambda = 25T-Cell Markers: CD2 = 96, CD3 = 95, CD3/CD4 = 34, CD5 = 88, CD7 = 87,CD3/CD8 = 57, CD3/57 = 30NK Cell Markers: CD56 = 9, CD57 = 33Other Markers: CD10 = 5, CD38 = 42Results (expressed as % of BLAST gate):B-Cell Markers: [place] = 1.7, Lambda = 0.4, CD19 = [...] were developed and theirperformance characteristics determined by [facility] Pathology department.They have not been cleared or approved by the US Food and DrugAdministration. The FDA has determined that such clearance or approval isnot necessary. Name Value Range Interpretation Code Description Data Cheyenne rce(s) Supporting Document(s) ID Date Data Source [id number] 03/06/2020 02:17:00 PM EST [facility] Name Value Range Interpretation Code Description Data Cheyenne rce(s) Supporting Document(s) SARS-CoV-2 (COVID 19) NEGATIVE - SARS-CoV-2 (COVID19) [facility] This lab was ordered by [facility] a nd reported by [facility]. ID Date Data Source [id number] 02/24/2020 04:54:23 PM EST [facility] Name Value Range Interpretation Code Description Data Cheyenne rce(s) Supporting Document(s) &PDF [facility] EHXNVa6hVoFRQyXm03/SOWauLBRay2XkKRnyCAj2KVnxYRRiB2MhuXtfZRmMYCRbKwUYOFTTUPENTI6d FcG [file] ICAgICAgICAgICAgICAgICAgICAgICAgICAgICAgICAgICAgICAgICAgICAgICAgICAgICAgICAgICAg ICAgICAgICAgICAgICAgICAgICAgICAgDQogICAgIC AgICAgICAgICAgICAgICAgICAgICAgICAgICAgICAgICAgICAgICAgICAgICAgICAgICAgICAgICAgIC AgICAgICAgICAgICAgICAgICAgICAgICAgICAgICAgICAgDQogICAgICAgICAgICAgICAgICAgICAgIC AgICAgICAgICAgICAgICAgICAgICAgICAgICAgICAg ICAgICAgICAgICAgICAgICAgICAgICAgICAgICAgICAgICAgICAgICAgICAgDQogICAgICAgICAgICAg ICAgICAgICAgICAgICAgICAgICAgICAgICAgICAgICAgICAgICAgICAgICAgICAgICAgICAgICAgICAg ICAgICAgICAgICAgICAgICAgICAgICAgICAgDQogIC AgICAgICAgICAgICAgICAgICAgICAgICAgICAgICAgICAgICAgICAgICAgICAgICAgICAgICAgICAgIC AgICAgICAgICAgICAgICAgICAgICAgICAgICAgICAgICAgICAgDQogICAgICAgICAgICAgICAgICAgIC AgICAgICAgICAgICAgICAgICAgICAgICAgICAgICAg ICAgICAgICAgICAgICAgICAgICAgICAgICAgICAgICAgICAgICAgICAgICAgICAgDQogICAgICAgICAg ICAgICAgICAgICAgICAgICAgICAgICAgICAgICAgICAgICAgICAgICAgICAgICAgICAgICAgICAgICAg ICAgICAgICAgICAgICAgICAgICAgICAgICAgICAgDQ ogICAgICAgICAgICAgICAgICAgICAgICAgICAgICAgICAgICAgICAgICAgICAgICAgICAgICAgICAgIC AgICAgICAgICAgICAgICAgICAgICAgICAgICAgICAgICAgICAgICAgDQogICAgICAgICAgICAgICAgIC AgICAgICAgICAgICAgICAgICAgICAgICAgICAgICAg ICAgICAgICAgICAgICAgICAgICAgICAgICAgICAgICAgICAgICAgICAgICAgICAgICAgDQogICAgICAg ICAgICAgICAgICAgICAgICAgICAgICAgICAgICAgICAgICAgICAgICAgICAgICAgICAgICAgICAgICAg ICAgICAgICAgICAgICAgICAgICAgICAgICAgICAgIC GdDTr8K1iwBNZyHZVeVD0jONc7Zx2+OYkECwCrISL3woOpxK8DPK2ac6GjPWlqVWGol6LgULp9ZN7GMA LlTEivSQ9QHGqgmo2XQUUaAGBjfPINr7bbZaRwDSV0SEOqQlffZT6HTEQsH2nvwtSsOCZoDPEZLDhdHW DDFJ7JFlVgU0BrkV90VGPHTy9+DQplbmRvYmoNCjE4 TVSww9KrMAl3QL3OIAZtCBiyOV0QDBQuyH2lKXsuAD3TPcAzGpAfLQFSAmQrI77jmGPyQVv3U5SfNmSk ZGVkRmlsZXMgPDwvTmFtZXMgWyBdDQogID4+ID4+QWnpHG2RYIynfcGuGMZbBw1PUJCrYLD1NTMavXRy YNvjBWPGJRxyOX7WpGOpCMR0wB6iCIfeVQNaBRAmE3 hIQrPotOlkLN32uRqvgsGoaIAuJNc+Oi4RPB0ad9NkTXk9hbIbRGtkSWX3EIhpJWDsJYHfQLYiLRP4KG B8CIHUDxLbEKYqNRMvJYlsBIZfYDOcuw1FCGDoLFLtWXQaSnRaJAYvYWQiOKgjWRLmFTD2BWJ1FRPrOS BrIQ0DWsTmINYkRYSnMNYwPJRyGJWhhu1NJBZmWKBq Rah2KtOlGLRdHXLaUIfcTNEfKHXkTEe2ZDRrYFSaYE5AMxCbTYRvFAS2OYTsZANtJWCkbe4BFYRbPICn VFCpWOAbTAVaANWoSLbkTTFvEXS3TDa2VMZoHIVeHV2KMiSwQAPwDRMoZjAuVILiNZBvuo3PVHIeQHFm PRM3CEBqLQWwFJKkBZljXXMiAWU3ZrEqBKElKCJdXE 4ZFpEzLNYlNUS6XIZeWIYlXVIegv3NNLAhQLUvDaxnLEJwFHKtFJKmLLpiJZJdILPfEwruSAZqZYJlSR 3UWqFrZQRzSWN7LGBxCTSgTRIbku9UKQMaZDQnONoxQIArQOGeTKPtNXluIEYwBAB7YtU1SCDdDOIbIL 9NVhDyHFgyJGBDXek8TLpyY4j5HFSeYQ0XT3Lwq5Mf CDjsDULMQRyrZW4emdJhCCWuQl8FB2aRRogkRLc1HwA3F7CcKwHfYMGmGMQaCuUpHoxeVbQcAKMcCQ6v MCB5QHQhLGHgJwPyUSJmMQO3NcJzUCGgQ3VyILEiNGNrDuDfDM1VEk8RYaN1VQC1iLBwBf3ZRVk1FJJW OzCkBD3UJHb= ID Date Data Source [id number] 02/16/2020 10:16:00 AM EST [facility] Name Value Range Interpretation Code Description Data Cheyenne rce(s) Supporting Document(s) SARS coronavirus 2 RNA [Presence] in Res piratory specimen by JOSE ROBERTO with probe detection [facility] This lab was ordered by [facility] a nd reported by [facility]. ID Date Data Source [id number] 11/03/2019 11:20:00 AM EDT [facility] Name Value Range Interpretation Code Description Data Cheyenne rce(s) Supporting Document(s) &PDF [facility] ZMNZQm1aXnLDHmPe06/XAMzvXGMed0XtOMnyTMu0KKzyIGBnX6ItkSglHAzGZSRfXiKHRDIZFJPFIQ7k oRX [file] ICAgICAgICAgICAgICAgICAgICAgICAgICAgICAgIC AgICAgICAgICAgICAgICAgICAgICAgICAgICAgICAgICAgICAgDQogICAgICAgICAgICAgICAgICAgIC AgICAgICAgICAgICAgICAgICAgICAgICAgICAgICAgICAgICAgICAgICAgICAgICAgICAgICAgICAgIC AgICAgICAgICAgICAgICAgICAgDQogICAgICAgICAg ICAgICAgICAgICAgICAgICAgICAgICAgICAgICAgICAgICAgICAgICAgICAgICAgICAgICAgICAgICAg ICAgICAgICAgICAgICAgICAgICAgICAgICAgICAgDQogICAgICAgICAgICAgICAgICAgICAgICAgICAg ICAgICAgICAgICAgICAgICAgICAgICAgICAgICAgIC AgICAgICAgICAgICAgICAgICAgICAgICAgICAgICAgICAgICAgICAgDQogICAgICAgICAgICAgICAgIC AgICAgICAgICAgICAgICAgICAgICAgICAgICAgICAgICAgICAgICAgICAgICAgICAgICAgICAgICAgIC AgICAgICAgICAgICAgICAgICAgICAgDQogICAgICAg ICAgICAgICAgICAgICAgICAgICAgICAgICAgICAgICAgICAgICAgICAgICAgICAgICAgICAgICAgICAg ICAgICAgICAgICAgICAgICAgICAgICAgICAgICAgICAgDQogICAgICAgICAgICAgICAgICAgICAgICAg ICAgICAgICAgICAgICAgICAgICAgICAgICAgICAgIC AgICAgICAgICAgICAgICAgICAgICAgICAgICAgICAgICAgICAgICAgICAgDQogICAgICAgICAgICAgIC AgICAgICAgICAgICAgICAgICAgICAgICAgICAgICAgICAgICAgICAgICAgICAgICAgICAgICAgICAgIC AgICAgICAgICAgICAgICAgICAgICAgICAgDQogICAg ICAgICAgICAgICAgICAgICAgICAgICAgICAgICAgICAgICAgICAgICAgICAgICAgICAgICAgICAgICAg ICAgICAgICAgICAgICAgICAgICAgICAgICAgICAgICAgICAgDQogICAgICAgICAgICAgICAgICAgICAg ICAgICAgICAgICAgICAgICAgICAgICAgICAgICAgIC TpYBCwZHQxBKGpTMXaQMTqEWMbNKQqPHIqWIDzAFAgAEVnFLMyYUNdHYAjPKEkBDf6C1kwZNOnDGIuEV 3yCPl3Pl6+LIfXWnNoXAD3moBrwT4GKP5bu1VtIQzaGLEiz1OuWTu9IN4IMABsFTlgED5BWVtzwz2LCV MdBIIpvYRBl9koYzBaQMT5ALJaQpjeOT8CKYEdT2lw kiYtCCUjYRGVWYzkPXORBW8YFlVnO6ZnmX47VTGVZz9+RLkozuWrIhxRIzA8PNIcf5ArVYg3UF4FHDYp SRpsQL3MWHGqcF2yTIfiPT5OKoQkAcOlFRBLVeGuE47avEQmILd0X1YlVjYsULLwVatzYJVcOXffHmQo ZXMgWyBdDQogID4+ID4+SQpuVK5FKRwbbrPcQDYhSs 2TGZXhRYI8DFRbiXVmMFavLUHKOYwxRT2PnSYxBKV7lX0dLZciYZTqIGXjN3hVVfTtxQfpPG29aLgbjx VsbCBdDQo+Nu2GFR3au6MtFEp5qgLwEPikUVJ9CXrbXGRhNQIsUAHbXMQ5QBT7VWDVQhTnMNGgCKUpTR mnKSXiSTTwpr2AKRPoOQNiMHM3ZsYkMDQdCDTcCHwp TPPkHLP3EbCgKPNsOTPlQZ1WJuQqCJWuHQOlJWBjQAVlPRJklv1PPTGwGZHmBcb9KpXwTJZmPKHlXFdu RJVwGHFxWGW6LSViGFVbSF0ITuBmHTXvCQH3RVAbWMOtGBZlxh3OBOBvNSVgLSS8RYJkDXFsTRYaLHlv TJNgZVJ6ISG2PUPgCMRwVR0FFrNrAMBuDWWjHRIiVA GpNGIixs8QXNLsAVKbLHK9YoSxBBUbQPVjGZevNXUsXYF2PmX0VCSrNHAiWF7VYyDuHHVyMBJ7BOtyXQ WbEAEjkr2EFSTePDSpBtu5USDhRDJpDBOrEXipZJIeCHVmQOC9CLSfHZOaCN8HPpKmMVAzVEP4IRQlEB TqEXRnjt2AFEGvESJgIOm8NXAlIUXoMSQaQKgyANFr RZP5GpZ4SWTgBTWuKL3YRwCjEGtcILMVKpr4JCnhZ7p3GIHyHU4UC2Iub1LzMLxwKEOPFRjxKK4vslLi ECUlQg6QX5qPJlv0EILzKMc3BBmgWOS7XKkdYKOrEUH3ShPfXXpfJcOlWw2qZBupRDS4BOroCRB3Xzxv RMKiPDGhGni8BLV1RIL3OjKaNhMlRU1UPq1YXaD0UZU3uOIeRj2NTKa6GQCAKeGyZL1XSYp= ID Date Data Source LIPID PANEL (CARDIAC RISK) 05/30/2019 12:00:00 AM EDT eCW1 ( [facility]) Name Value Range Interpretation Code Description Data Cheyenne rce(s) Supporting Document(s) Triglyceride [Mass/volume] in Serum or Plasma by calculation 168 <150 TRIGLYCERIDES LEVEL eCW1 ([facility]) 52 NON-HDL-C eCW1 ([facility]) Cholesterol [Moles/volume] in Serum or Plasma 81 <200 CHOLESTEROL LEVEL eCW1 ([facility]) Cholesterol in LDL [Mass/volume] in Serum or Plasma by calculation 18 <100 LDL CHOLESTEROL eCW1 ([facility]) Cholesterol in HDL [Moles/volume] in Serum or Plasma 29 >40 HDL CHOLESTEROL eCW1 ([facility]) 2.793 <5 CHOLESTEROL RISK RATIO eCW1 ([facility]) ID Date Data Source [id number] 05/30/2019 12:00:00 AM EDT eCW1 ([facility]) Name Value Range Interpretation Code Description Data Cheyenne rce(s) Supporting Document(s) Hemoglobin A1c/Hemoglobin.total in Blood 6.9 HEMOGLOBIN A1c eCW1 ([facility]) ID Date Data Source Basic Metabolic Profile (BMP) 05/12/2019 12:00:00 AM EDT eCW 1 ([facility]) Name Value Range Interpretation Code Description Data Cheyenne rce(s) Supporting Document(s) 79 70-100 GLUCOSE, FASTING eCW1 ([facility]) 4.5 3.5-5.1 POTASSIUM SERUM eCW1 ([facility]) 39 7-18 BLOOD UREA NITROGEN eCW1 ([facility]) 25.5 >45 GLOMERULAR FILTRATION RATE eCW 1 ([facility]) 140 136-145 SODIUM LEVEL eCW1 ([facility]) 2.08 0.55-1.30 CREATININE FOR GFR eCW1 ([facility]) 106 98-107 CHLORIDE LEVEL eCW1 ([facility]) 8.7 8.8-10.2 CALCIUM LEVEL eCW1 ([facility]) 28 21-32 CARBON DIOXIDE LEVEL eCW1 ([facility]) ID Date Data Source CBC with Differential 05/12/2019 12:00:00 AM EDT eCW1 ([facility]) Name Value Range Interpretation Code Description Data Cheyenne rce(s) Supporting Document(s) 2.92 4.00-5.40 RED BLOOD COUNT eCW1 ([facility]) 12.0 4.0-10.0 WHITE BLOOD COUNT eCW1 ([facility]) 7.9 12.0-15.5 HEMOGLOBIN eCW1 ([facility]) 90.8 80.0-96.0 MEAN CORPUSCULAR VOLUME e CW1 ([facility]) 27.1 27.0-33.0 MEAN CORPUSCULAR HEMOGLOB IN eCW1 ([facility]) 26.5 36.0-47.0 HEMATOCRIT eCW1 ([facility]) 29.8 32.0-36.5 MEAN CORPUSCULAR HGB CONC eCW1 ([facility]) 24 150-450 PLATELET COUNT, AUTOMATED eCW1 ([facility]) 21.2 11.5-14.5 RED CELL DISTRIBUTION WID TH eCW1 ([facility]) ID Date Data Source [id number] 04/14/2019 12:50:40 PM [facility] Name Value Range Interpretation Code Description Data Cheyenne rce(s) Supporting Document(s) Discharge Summary [facility] [id number]/QJYekOLZiv9UuLQqnIOq6JZpvHOLmT7NeINJ4yE4qUZO7XWxYUmHfOrSaXkH2 lbm [file] [id number]+[id number]kmJIZJRy3Y ID Date Data Source [id number] 04/09/2019 11:58:57 AM [facility] Name Value Range Interpretation Code Description Data Cheyenne rce(s) Supporting Document(s) Glucose [Mass/volume] in Capillary blood by Glucometer 223 mg/dL 70- 140 H [facility] ID Date Data Source [id number] 04/09/2019 07:32:05 AM [facility] Name Value Range Interpretation Code Description Data Cheyenne rce(s) Supporting Document(s) Glucose [Mass/volume] in Capillary blood by Glucometer 195 mg/dL 70- 140 H [facility] ID Date Data Source [id number] 04/09/2019 01:18:22 AM [facility] Name Value Range Interpretation Code Description Data Cheyenne rce(s) Supporting Document(s) Bicarbonate [Moles/volume] in Serum 20 mmol/L 22-29 L [facility] Chloride [Moles/volume] in Serum or Plasma 97 mmol/L 98-107 L [facility] Creatinine [Mass/volume] in Serum or Plasma 2.46 mg/dL 0.50-0.90 H [facility] Glucose [Mass/volume] in Serum or Plasma 131 mg/dL 70-140 [facility] Potassium [Moles/volume] in Serum or Plasma 4.8 mmol/L 3.4-5.1 [facility] Sodium [Moles/volume] in Serum or Plasma 130 mmol/L 136-145 L [facility] Urea nitrogen [Mass/volume] in Serum or Plasma 72 mg/dL 8-23 H [facility] Anion gap 3 in Serum or Plasma 13 mmol/L 8-15 [facility] Osmolality of Serum or Plasma by calculation 293 mosm/kg 275-300 [facility] Creatinine/Urea nitrogen [Mass Ratio] in Serum or Plasma 29 [facility] Calcium [Mass/volume] in Serum or Plasma 9.1 mg/dL 8.8-10.2 [facility] Glomerular filtration rate/1.73 sq M pre dicted among non-blacks [Volume Rate/Area] in Serum or Plasma by Creatinine-based formula (MDRD) 20 mL/min/1.73m2 >60 L [facility] Glomerular filtration rate/1.73 sq M pre dicted among blacks [Volume Rate/Area] in Serum or Plasma by Creatinine-based formula (MDRD) 23 mL/min/1.73m2 >60 L [facility] ID Date Data Source [id number] 04/09/2019 01:18:22 AM [facility] Name Value Range Interpretation Code Description Data Cheyenne rce(s) Supporting Document(s) Urate [Mass/volume] in Serum or Plasma 11.2 mg/dl 2.4-5.7 H [facility] ID Date Data Source [id number] 04/09/2019 02:39:14 AM [facility] Name Value Range Interpretation Code Description Data Cheyenne rce(s) Supporting Document(s) Leukocytes [#/volume] in Blood by Automated count 21.1 10*3/uL 4-10 H [facility] Erythrocytes [#/volume] in Blood by Automated count 3.02 10*6/uL 4.1- 5.3 [facility] Hemoglobin [Mass/volume] in Blood 8.5 g/dL 11.5-15.5 [facility] Hematocrit [Volume Fraction] of Blood by Automated count 26.6 % 3 6-45 [facility] Erythrocyte mean corpuscular volume [Entitic volume] by Auto mated count 88.0 fL 80-96 [facility] Erythrocyte mean corpuscular hemoglobin [Entitic mass] by Automated count 28.0 pg 27-33 [facility] Erythrocyte mean corpuscular hemoglobin concentration [Mass/volume] by Automated count 31.8 g/dL 32.0-36.0 [facility] width [Ratio] by Automated count 23.1 % 11.5-14.5 [facility] Platelets [#/volume] in Blood by Automated count 31 10*3/uL 150-400 Health system No Significant Change Since Last Result CalledManual Platelet Count PerformedConfirmed 4060 JWYOccasional Large Platelets seen on slide Differential cell count method - Blood [facility] Neutrophils/100 leukocytes in Blood by Automated count 37 % [facility] Lymphocytes/100 leukocytes in Blood by Automated count 19 % [facility] Monocytes/100 leukocytes in Blood by Automated count 28 % [facility] Basophils/100 leukocytes in Blood by Automated count 3 % [facility] Neutrophils [#/volume] in Blood by Automated count 7.91 10*3/uL 1.8-7 .0 H [facility] Lymphocytes [#/volume] in Blood by Automated count 4.05 10*3/uL 1.2-4 .0 [facility] Monocytes [#/volume] in Blood by Automated count 5.89 10*3/uL 0-0.8 H [facility] Confirmed by 4060 jwy Basophils [#/volume] in Blood by Automated count 0.61 10*3/uL 0-0.2 H [facility] Confirmed by 1521 Nucleated erythrocytes/100 leukocytes [Ratio] in Blood by Automated count 9 /100{WBCs} 0-0 H [facility] Confirmed by 4060 j[address] Band form neutrophils/100 leukocytes in Blood by Manual count 1 % [facility] Myelocytes/100 leukocytes in Blood by Manual count 5 % [facility] Metamyelocytes/100 leukocytes in Blood by Manual count 7 % [facility] Band form neutrophils [#/volume] in Blood by Manual count 0.21 10*3 /uL 0-0.6 [facility] Myelocytes [#/volume] in Blood by Manual count 1.01 10*3/uL 0-0 H [facility] Metamyelocytes [#/volume] in Blood by Manual count 1.41 10*3/uL 0-0 [facility] Anisocytosis [Presence] in Blood by Light microscopy [facility] Microcytes [Presence] in Blood by Light [facility] Poikilocytosis [Presence] in Blood by Light [facility] Stomatocytes [Presence] in Blood by [facility] ID Date Data Source [id number] 04/08/2019 09:16:43 PM [facility] Value Range Interpretation Code Description Data Cheyenne rce(s) Supporting Document(s) Glucose [Mass/volume] in Capillary blood by Glucometer 169 mg/dL 70- 140 [facility] ID Date Data Source [id number] 04/08/2019 04:58:01 PM [facility] Value Range Interpretation Code Description Data [place] rce(s) Supporting Document(s) Glucose [Mass/volume] in Capillary blood by Glucometer 175 mg/dL 70- 140 [facility] ID Date Data Source [id number] 04/08/2019 12:07:39 PM [facility] Value Range Interpretation Code Description Data [place] rce(s) Supporting Document(s) Glucose [Mass/volume] in Capillary blood by Glucometer 218 mg/dL 70- 140 [facility] ID Date Data Source [id number] 04/08/2019 07:49:38 AM [facility] Value Range Interpretation Code Description Data Cheyenne rce(s) Supporting Document(s) Glucose [Mass/volume] in Capillary blood by Glucometer 173 mg/dL 70- 140 [facility] ID Date Data Source [id number] 04/08/2019 01:37:36 AM [facility] Value Range Interpretation Code Description Data Cheyenne rce(s) Supporting Document(s) Bicarbonate [Moles/volume] in Serum 21 mmol/L 22-29 L [facility] Chloride [Moles/volume] in Serum or Plasma 96 mmol/L 98-107 L [facility] Creatinine [Mass/volume] in Serum or Plasma 2.33 mg/dL 0.50-0.90 [facility] Glucose [Mass/volume] in Serum or Plasma 188 mg/dL 70-140 H [facility] Potassium [Moles/volume] in Serum or Plasma 4.6 mmol/L 3.4-5.1 [facility] Sodium [Moles/volume] in Serum or Plasma 131 mmol/L 136-145 L [facility] Urea nitrogen [Mass/volume] in Serum or Plasma 71 mg/dL 8-23 H [facility] Anion gap 3 in Serum or Plasma 14 mmol/L 8-15 [facility] Osmolality of Serum or Plasma by calculation 298 mosm/kg 275-300 [facility] Creatinine/Urea nitrogen [Mass Ratio] in Serum or Plasma 30 [facility] Calcium [Mass/volume] in Serum or Plasma 9.4 mg/dL 8.8-10.2 [facility] Glomerular filtration rate/1.73 sq M pre dicted among non-blacks [Volume Rate/Area] in Serum or Plasma by Creatinine-based formula (MDRD) 21 mL/min/1.73m2 >60 L [facility] Glomerular filtration rate/1.73 sq M pre dicted among blacks [Volume Rate/Area] in Serum or Plasma by Creatinine-based formula (MDRD) 24 mL/min/1.73m2 >60 L [facility] ID Date Data Source [id number] 04/08/2019 01:37:36 AM [facility] Value Range Interpretation Code Description Data Cheyenne rce(s) Supporting Document(s) Urate [Mass/volume] in Serum or Plasma 11.3 mg/dl 2.4-5.7 [facility] ID Date Data Source [id number] 04/08/2019 02:37:03 AM [facility] Name Value Range Interpretation Code Description Data Cheyenne rce(s) Supporting Document(s) Leukocytes [#/volume] in Blood by Automated count 18.3 10*3/uL 4-10 H [facility] Confirmed Erythrocytes [#/volume] in Blood by Automated count 3.06 10*6/uL 4.1- 5.3 L [facility] Hemoglobin [Mass/volume] in Blood 8.6 g/dL 11.5-15.5 [facility] Hematocrit [Volume Fraction] of Blood by Automated count 27.0 % 3 6-45 L [facility] Erythrocyte mean corpuscular volume [Entitic volume] by Auto mated count 88.2 fL 80-96 [facility] Erythrocyte mean corpuscular hemoglobin [Entitic mass] by Automated count 28.1 pg 27-33 [facility] Erythrocyte mean corpuscular hemoglobin concentration [Mass/volume] by Automated count 31.8 g/dL 32.0-36.0 [facility] width [Ratio] by Automated count 22.6 % 11.5-14.5 [facility] Platelets [#/volume] in Blood by Automated count 16 10*3/uL 150-400 [facility] system ConfirmedNo significant change since t result called Differential cell count method - Blood [facility] Neutrophils/100 leukocytes in Blood by Automated count 35 % [facility] Lymphocytes/100 leukocytes in Blood by Automated count 14 % [facility] Monocytes/100 leukocytes in Blood by Automated count 22 % [facility] Eosinophils/100 leukocytes in Blood by Automated count 2 % [facility] Basophils/100 leukocytes in Blood by Automated count 1 % [facility] Neutrophils [#/volume] in Blood by Automated count 6.64 10*3/uL 1.8-7 .0 [facility] Lymphocytes [#/volume] in Blood by Automated count 2.62 10*3/uL 1.2-4 .0 [facility] Monocytes [#/volume] in Blood by Automated count 4.02 10*3/uL 0-0.8 H [facility] Eosinophils [#/volume] in Blood by Automated count 0.36 10*3/uL 0-0.5 [facility] Basophils [#/volume] in Blood by Automated count 0.17 10*3/uL 0-0.2 [facility] Nucleated erythrocytes/100 leukocytes [Ratio] in Blood by Automated count 6 /100{WBCs} 0-0 [facility] Band form neutrophils/100 leukocytes in Blood by Manual count 1 % [facility] Myelocytes/100 leukocytes in Blood by Manual count 12 % [facility] Metamyelocytes/100 leukocytes in Blood by Manual count 13 % [facility] Confirmed by 1663. Band form neutrophils [#/volume] in Blood by Manual count 0.17 10*3 /uL 0-0.6 [facility] Myelocytes [#/volume] in Blood by Manual count 2.26 10*3/uL 0-0 H [facility] Metamyelocytes [#/volume] in Blood by Manual count 2.45 10*3/uL 0-0 H [facility] Acanthocytes [Presence] in Blood by Light microscopy [facility] Anisocytosis [Presence] in Blood by Light microscopy [facility] Schistocytes [Presence] in Blood by Light microscopy [facility] ID Date Data Source [id number] 04/13/2019 07:05:29 AM [facility] Name Value Range Interpretation Code Description Data Cheyenne rce(s) Supporting Document(s) Cytomegalovirus DNA [Units/volume] (sangita l load) in Plasma by Probe and target amplification method Negative [facility] (NOTE)No CMV DNA detected.The quantitati ve range of this assay is 200 to 1 million IU/mL.This test was developed and its performance characteristicsdetermined by [employer]. It has not been cleared or approved by theFood and Drug Administration. The FDA has determined that suchclearance or approval is not necessary.Performed At: [id number] [place], [place] [id number] Waldron MD Ph:[phone] Cytomegalovirus DNA [log units/volume] ( viral load) in Plasma by Probe and target amplification method [facility] (NOTE)Unable to calculate result since n on-numeric result obtained forcomponent test. ID Date Data Source [id number] 04/07/2019 09:45:54 PM [facility] Name Value Range Interpretation Code Description Data Cheyenne rce(s) Supporting Document(s) Glucose [Mass/volume] in Capillary blood by Glucometer 196 mg/dL 70- 140 H [facility] ID Date Data Source [id number] 04/07/2019 04:51:37 PM [facility] Value Range Interpretation Code Description Data Cheyenne rce(s) Supporting Document(s) Glucose [Mass/volume] in Capillary blood by Glucometer 236 mg/dL 70- 140 [facility] ID Date Data Source [id number] 04/07/2019 11:42:45 AM [facility] Value Range Interpretation Code Description Data Cheyenne rce(s) Supporting Document(s) Glucose [Mass/volume] in Capillary blood by Glucometer 258 mg/dL 70- 140 [facility] ID Date Data Source [id number] 04/07/2019 09:59:47 AM [facility] Value Range Interpretation Code Description Data Cheyenne rce(s) Supporting Document(s) Urate [Mass/volume] in Serum or Plasma 12.1 mg/dl 2.4-5.7 [facility] ID Date Data Source [id number] 04/07/2019 01:26:38 PM [facility] Value Range Interpretation Code Description Data Cheyenne rce(s) Supporting Document(s) Triiodothyronine (T3) Free [Mass/volume] in Serum or Plasma 2.02 pg/mL 2.00-4.40 [facility] ID Date Data Source [id number] 04/07/2019 01:26:38 PM [facility] Value Range Interpretation Code Description Data Cheyenne rce(s) Supporting Document(s) Thyroxine (T4) free [Mass/volume] in Serum or Plasma 1.24 ng/dL 0.93- 1.70 [facility] ID Date Data Source [id number] 04/07/2019 08:09:49 AM [facility] Value Range Interpretation Code Description Data Cheyenne rce(s) Supporting Document(s) Glucose [Mass/volume] in Capillary blood by Glucometer 180 mg/dL 70- 140 [facility] ID Date Data Source [id number] 04/07/2019 01:51:09 AM [facility] Value Range Interpretation Code Description Data Cheyenne rce(s) Supporting Document(s) HIV 1+2 Ab+HIV1 p24 Ag [Presence] in Serum or Plasma by Immu noassay Non Reactive [facility] Negative for HIV-1 p24 antigenand HIV-1/ HIV-2 antibodies. Nolaboratory evidence of HIVinfection. ID Date Data Source [id number] 04/11/2019 02:06:05 PM [facility] Name Value Range Interpretation Code Description Data Cheyenne rce(s) Supporting Document(s) Cytomegalovirus IgM Ab [Units/volume] in Serum by Immunoassay 0.0-29.9 [facility] (NOTE) Neg ative <30.0 Equivocal 30.0 - 34.9 Positive >34.9A positive result is generally indicative of acuteinfection, reactivation or persistent IgM production.Performed At: RN [facility] [address] [id number] Griffin MD Ph:[phone] ID Date Data Source [id number] 04/07/2019 01:36:55 AM [facility] Name Value Range Interpretation Code Description Data Cheyenne rce(s) Supporting Document(s) Bicarbonate [Moles/volume] in Serum 22 mmol/L 22-29 [facility] Chloride [Moles/volume] in Serum or Plasma 96 mmol/L 98-107 L [facility] Creatinine [Mass/volume] in Serum or Plasma 2.37 mg/dL 0.50-0.90 H [facility] Glucose [Mass/volume] in Serum or Plasma 190 mg/dL 70-140 H [facility] Potassium [Moles/volume] in Serum or Plasma 4.6 mmol/L 3.4-5.1 [facility] Sodium [Moles/volume] in Serum or Plasma 131 mmol/L 136-145 L [facility] Urea nitrogen [Mass/volume] in Serum or Plasma 67 mg/dL 8-23 H [facility] Anion gap 3 in Serum or Plasma 13 mmol/L 8-15 [facility] Osmolality of Serum or Plasma by calculation 296 mosm/kg 275-300 [facility] Creatinine/Urea nitrogen [Mass Ratio] in Serum or Plasma 28 [facility] Calcium [Mass/volume] in Serum or Plasma 9.9 mg/dL 8.8-10.2 [facility] Glomerular filtration rate/1.73 sq M pre dicted among non-blacks [Volume Rate/Area] in Serum or Plasma by Creatinine-based formula (MDRD) 21 mL/min/1.73m2 >60 L [facility] Glomerular filtration rate/1.73 sq M pre dicted among blacks [Volume Rate/Area] in Serum or Plasma by Creatinine-based formula (MDRD) 24 mL/min/1.73m2 >60 L [facility] ID Date Data Source [id number] 04/07/2019 04:26:05 AM [facility] Name Value Range Interpretation Code Description Data Cheyenne rce(s) Supporting Document(s) Leukocytes [#/volume] in Blood by Automated count 17.9 10*3/uL 4-10 H [facility] Confirmed Erythrocytes [#/volume] in Blood by Automated count 2.99 10*6/uL 4.1- 5.3 L [facility] Hemoglobin [Mass/volume] in Blood 8.5 g/dL 11.5-15.5 L [facility] Hematocrit [Volume Fraction] of Blood by Automated count 26.3 % 3 6-45 L [facility] Erythrocyte mean corpuscular volume [Entitic volume] by Auto mated count 88.0 fL 80-96 [facility] Erythrocyte mean corpuscular hemoglobin [Entitic mass] by Automated count 28.4 pg 27-33 [facility] Erythrocyte mean corpuscular hemoglobin concentration [Mass/volume] by Automated count 32.3 g/dL 32.0-36.0 [facility] E[facility]th[facility] distribution width [Ratio] by Automated count 22.6 % 11.5-14.5 H [facility] Platelets [#/volume] in Blood by Automated count 19 10*3/uL 150-400 [facility] ConfirmedCalled to and read back by Katrina Cabrera RN, 10H, 04:23. 1253 Differential cell count method - Blood [facility] Neutrophils/100 leukocytes in Blood by Automated count 19 % [facility] Lymphocytes/100 leukocytes in Blood by Automated count 24 % [facility] Monocytes/100 leukocytes in Blood by Automated count 28 % [facility] Eosinophils/100 leukocytes in Blood by Automated count 1 % [facility] Basophils/100 leukocytes in Blood by Automated count 2 % [facility] Neutrophils [#/volume] in Blood by Automated count 3.47 10*3/uL 1.8-7 .0 [facility] Lymphocytes [#/volume] in Blood by Automated count 4.35 10*3/uL 1.2-4 .0 H [facility] Monocytes [#/volume] in Blood by Automated count 5.05 10*3/uL 0-0.8 H [facility] Confirmed by 1663. Eosinophils [#/volume] in Blood by Automated count 0.18 10*3/uL 0-0.5 [facility] Basophils [#/volume] in Blood by Automated count 0.34 10*3/uL 0-0.2 H [facility] Nucleated erythrocytes/100 leukocytes [Ratio] in Blood by Automated count 12 /100{WBCs} 0-0 H [facility] Band form neutrophils/100 leukocytes in Blood by Manual count 2 % [facility] Variant lymphocytes/100 leukocytes in Blood by Manual count 1 % [facility] Myelocytes/100 leukocytes in Blood by Manual count 14 % [facility] Metamyelocytes/100 leukocytes in Blood by Manual count 9 % [facility] Band form neutrophils [#/volume] in Blood by Manual count 0.34 10*3 /uL 0-0.6 [facility] Lymphocytes [#/volume] in Blood 0.18 10*3/uL 0 H [facility] Myelocytes [#/volume] in Blood by Manual count 2.43 10*3/uL 0-0 H [facility] Metamyelocytes [#/volume] in Blood by Manual count 1.56 10*3/uL 0-0 [facility] Acanthocytes [Presence] in Blood by Light [facility] Anisocytosis [Presence] in Blood by Light [facility] Microcytes [Presence] in Blood by Light [facility] Poikilocytosis [Presence] in Blood by Light [facility] Polychromasia [Presence] in Blood by [facility] Spherocytes [Presence] in Blood by [facility] ID Date Data Source [id number] 04/07/2019 09:22:13 AM [facility] Value Range Interpretation Code Description Data Cheyenne rce(s) Supporting Document(s) Magnesium [Mass/volume] in Serum or Plasma 3.2 mg/dL 1.6-2.4 H [facility] ID Date Data Source [id number] 04/07/2019 09:22:13 AM [facility] Value Range Interpretation Code Description Data Cheyenne rce(s) Supporting Document(s) Phosphate [Mass/volume] in Serum or Plasma 4.4 mg/dL 2.5-4.5 [facility] ID Date Data Source [id number] 04/08/2019 11:24:44 AM EST [facility] Name Value Range Interpretation Code Description Data Cheyenne rce(s) Supporting Document(s) Cytomegalovirus IgG Ab [Presence] in Serum by Immunoassay Negative A [facility] ID Date Data Source [id number] 04/09/2019 06:05:22 AM [facility] Value Range Interpretation Code Description Data Cheyenne rce(s) Supporting Document(s) Copper [Mass/volume] in Serum or Plasma 123 ug/dL 72-166 [facility] (NOTE)This test was developed and its pe rformance characteristicsdetermined by [facility]. It has not been cleared or approvedby the Food and Drug Administration. Detection Limit = 5Performed At: [facility] [id number] Waldron MD Ph:[phone] ID Date Data Source [id number] 04/09/2019 06:05:23 AM [facility] Value Range Interpretation Code Description Data Cheyenne rce(s) Supporting Document(s) Zinc [Mass/volume] in Serum or Plasma 68 ug/dL 56-134 [facility] (NOTE)This test was developed and its pe rformance characteristicsdetermined by [facility]. It has not been cleared or approvedby the Food and Drug Administration. Detection Limit = 5Performed At: [facility] [id number] Waldron MD Ph:[phone] ID Date Data Source [id number] 04/07/2019 01:53:04 AM [facility] Value Range Interpretation Code Description Data Cheyenne rce(s) Supporting Document(s) Hepatitis A virus IgM Ab [Presence] in Serum or Plasma by Im munoassay Non Reactive [facility] Hepatitis B virus core IgM Ab [Presence] in Serum or Plasma by Immunoassay Non Reactive [facility] IgM antibodies to HBc were not detected, does not exclude the possibility of exposure to HBV. Hepatitis C virus Ab [Presence] in Serum or Plasma by Immuno assay Non Reactive [facility] No serological evidence of active infect ion. If recent exposure is suspected, test for HCV RNA. Hepatitis B virus surface Ag [Presence] in Serum or Plasma b y Immunoassay Non Reactive [facility] No active or previous infection. Suscept ible to infection. ID Date Data Source [id number] 04/08/2019 08:42:01 AM [facility] Value Range Interpretation Code Description Data Cheyenne rce(s) Supporting Document(s) Thyroperoxidase Ab [Units/volume] in Serum or Plasma 0.5 IU/mL <9.0 [facility] ID Date Data Source [id number] 04/07/2019 01:08:00 AM [facility] Value Range Interpretation Code Description Data Cheyenne rce(s) Supporting Document(s) HLA MOLECULAR ABCDRDQ [facility] ID Date Data Source [id number] 04/06/2019 11:13:36 PM [facility] Value Range Interpretation Code Description Data Cheyenne rce(s) Supporting Document(s) History and Physical [facility] TTSOTl2oYdSYArLk09/LSNdyWKNmo5BtHGjlQWm0XSgmWPOeK7SpNUW8yT1lPYZ7RZhOPmLeGnCoTiA7 lbm [file] ICAgICAgICAgICAgICAgICAgICAgICAgICAgICAgIC AgICAgICAgICAgICAgICAgICAgICAgICAgICAgICAgICAgDQogICAgICAgICAgICAgICAgICAgICAgIC AgICAgICAgICAgICAgICAgICAgICAgICAgICAgICAgICAgICAgICAgICAgICAgICAgICAgICAgICAgIC AgICAgICAgICAgICAgICAgDQogICAgICAgICAgICAg ICAgICAgICAgICAgICAgICAgICAgICAgICAgICAgICAgICAgICAgICAgICAgICAgICAgICAgICAgICAg ICAgICAgICAgICAgICAgICAgICAgICAgICAgDQogICAgICAgICAgICAgICAgICAgICAgICAgICAgICAg ICAgICAgICAgICAgICAgICAgICAgICAgICAgICAgIC AgICAgICAgICAgICAgICAgICAgICAgICAgICAgICAgICAgICAgDQogICAgICAgICAgICAgICAgICAgIC AgICAgICAgICAgICAgICAgICAgICAgICAgICAgICAgICAgICAgICAgICAgICAgICAgICAgICAgICAgIC AgICAgICAgICAgICAgICAgICAgDQogICAgICAgICAg ICAgICAgICAgICAgICAgICAgICAgICAgICAgICAgICAgICAgICAgICAgICAgICAgICAgICAgICAgICAg ICAgICAgICAgICAgICAgICAgICAgICAgICAgICAgDQogICAgICAgICAgICAgICAgICAgICAgICAgICAg ICAgICAgICAgICAgICAgICAgICAgICAgICAgICAgIC AgICAgICAgICAgICAgICAgICAgICAgICAgICAgICAgICAgICAgICAgDQogICAgICAgICAgICAgICAgIC AgICAgICAgICAgICAgICAgICAgICAgICAgICAgICAgICAgICAgICAgICAgICAgICAgICAgICAgICAgIC AgICAgICAgICAgICAgICAgICAgICAgDQogICAgICAg ICAgICAgICAgICAgICAgICAgICAgICAgICAgICAgICAgICAgICAgICAgICAgICAgICAgICAgICAgICAg ICAgICAgICAgICAgICAgICAgICAgICAgICAgICAgICAgDQogICAgICAgICAgICAgICAgICAgICAgICAg ICAgICAgICAgICAgICAgICAgICAgICAgICAgICAgIC NtQHLbCSUoEMAsILDtPGPwLXPkJXCgJWWmLCGtKRKxBHLtCHXuCVGgVLPpVGa6U8fbFDOyUDUaGC1hXM d3Jz8+HZrLAwSaPBY7wkDfsJ9NSW4js9QxTSalRZCsl0SrCVl6WS1TGAExMXbrRQ7HQUkrnm5AWMXuUS MorYLAf0xtCoPeJHZ9TOMcDsvcHK3KPGUnD7zwblXa YOUnGWSSMWohTCDNEIwoYVIVXFRyWQOlOiVrXhDqLXUdIK0KJWTuP636hwNdQH8MRg8HDyLiLG2azn5X OvEuITLySebCAac7QLqlKC3QeYHytDKoYFUrXEVTJxNpW8zjp2OiXiXpTENJBPolBK5Dm0FgoSVzAKm+ Ue4FVJ8vy9CjTZhtHGEjON2pij8PAJrCIyVfR6XyyN gpJHngNVJkkXQImSNwgjLNZAsmuUOwvvRiUN7YFLZ3MXJcKRyaWoFzELHcGEupVHOSBBhAZqJpB9Dxc8 QoGtR1HXYjRgIvBInbXVQpXqC6JC90hLpdPO3GQSOlVLUsUB52CSWiTCDyBe4RLj7HUlAtPA2evk1IDz OkAOJfEqoQUra6IIkpAO4JsLGsX4TksZAxb4mIFwYk F9EKIRDsUAAuUy5UWTPjRjToXUNnWUyrWW5wJYTgKCCMwVprxkB3KW7RIB2mpzEkCJ5AMgHzZg6gAz7Z YlKxO6PwN6BdEXDiPFJYSZnvNY6MLIbtEC4fZU5Aa7ZMjADyjC8srv2DZOYaYXEpNhuvxf6NIaniS0P9 sRqrASKeIfTeXHLQDTlwZS4LVFLyENX5QJHrXzDiXS FUBlWjK24lDE1OK5Ycz35zTdL6GGYdAxIaYIeqIV81zVibqqIxtKQkvLbwNK6FLw0+DQplbmRvYmoNCn jtLFOTWaFqPpXDPxBxTLAyVIMuNGUkTuA0WnCeSs3KIUHtXYWnAVUcKuZrZVXdBESmILfbOTNkVDC8BQ CoQATvXNKvTN0AHgKxLCFnObD3DUPuQMCwFMCvjp5Y ARZaALSaFFU0PqSmNXMcCFGfMGooPXVfHKL4SXvlUSKsXPLyLD8WSsTeAGQbTTXcPRYeYQVuYINjxo3B OPFnROVjKjkuKmPpCNByQTHhHMpqARPnBEY9ANT4KVBpKSCpMY4YGhGgCLLyYWD4SGErEPYiZQSdoa4X CRMfLDUlFDR3COApLSZdULRmCHboVELnKDT7BaGnKA GiPQKnSG2KLfIfWTXqWJM9WEesZFKqVAYqdp2NGMAvZVBtQrH5ObBvTQMdCLJvRJhxRGEbXEI9ZWgbQV HvKRMzCZ3DFkSaILDoRIs4PKHdOBAnMLDocq5WHTXaSYScHAI2SZJcVZGlZQEgXZobSEJiWLK7PUPlYY FaCKTtIQ6CQhWgCVCjOIn3BGQwBHNhIRUpof8TNNCv KGLxXMp5ZQRwZLIuRNWjCHstVISoEFYrDOckGQKzIRAdKK2QRnIlTCQhTrWlILNbZBGdAMJdaf9KAESs LIRmEXShASKgBPJeYIEnUHrwOOSkZNLrQIGeEJNlKTHdZY5YLqVuPWDlAyU8HAjuQDSmQJCszn8HQUVd GWThAvZqSKCjQVAgTYIyOPzbFFCiBKEzFYM6AKSkRK VnGE9TJyXpQPFyBsY0IqLcCLBtKGHduf3GENAdLXQrScrfYMQmEORnBRMsNDwfNPIeDSV6ZaAeVEMwVK ToPO8GQhTfDKNzQrF1UWJyIMElFLHgsf9OEQRtXCDuPCErUCCeXWTwDQQlLXfwPQVgELE8KDGcDWCfDB ZbAK7PPkRiBMAlJryuUwFyUTRtHDHktr7VOHFpTSRp TeY4PaYpNXNnFOSpSJilPLVyQTZ1ZjN8RRUsWEUnQD2LYiNhYDuvPYHTKqt9OMohT0s2QJZkLk5YK0Zi o2VpMvMjMJMIGRuaBT9amvPtWSAmVk0FS6uAQgtnX9V8DEPpLxqkWjLeRiY4BGJcKBCqDGYyAtN6LqV3 SS4yAOK4GtE6PeX9QQGoVWFlGMfkFEA2AGY2CLIkSV jgDYAdTvLuVY5TJu8GLoC9IVJ2jMYhQj8ICit1CVYERwTlUK9WPIz= ID Date Data Source [id number] 04/06/2019 09:08:25 PM [facility] Value Range Interpretation Code Description Data Cheyenne rce(s) Supporting Document(s) Glucose [Mass/volume] in Capillary blood by Glucometer 296 mg/dL 70- 140 H [facility] ID Date Data Source [id number] 04/06/2019 04:40:27 PM [facility] Value Range Interpretation Code Description Data Cheyenne rce(s) Supporting Document(s) Glucose [Mass/volume] in Capillary blood by Glucometer 221 mg/dL 70- 140 H [facility] ID Date Data Source [id number] 04/07/2019 09:10:08 AM [facility] Value Range Interpretation Code Description Data Cheyenne rce(s) Supporting Document(s) Flow cytometry study [facility] ID Date Data Source [id number] 04/06/2019 11:50:40 AM EST [facility] Name Value Range Interpretation Code Description Data Cheyenne rce(s) Supporting Document(s) Glucose [Mass/volume] in Capillary blood by Glucometer 171 mg/dL 70- 140 H [facility] ID Date Data Source [id number] 04/06/2019 10:44:06 AM EST [facility] Name Value Range Interpretation Code Description Data Cheyenne rce(s) Supporting Document(s) [facility] FXVAHt5mZaPAAiUmz5SzSaFdEJMqHV6sers8M5O8bJYgJ4RrvKVxb6ejH1UkZ5FgMEIpDRKBGZ3IsPDf jb2 [file] 7Xhl+7+7Xh1+5+pll2o86kzt2l27Hh+/z00J4TM4/mh4/m5+fZ/PDh/Pw8nR8+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+f5/PDB/Tz84R++I h+fp7RDx/Sz89T+uFj+vnxswmQ/42WYCkk17aNJq3rnHgVFq4RpSduNwsH7RaQOBSma0vuOElYQ4ZCLt +KRChJRH+5WtGmX40QvckAPbXBW/lRJkJpIj/aRChO 5EedCOWJ/UiTeSFOJ8FtvBnxf1YJTiMqM0J5UhsyZ0IB/KfPmVMFW56tWBocn1xCqdD+9IpQsMiPYhFK FvnRLELRIj+vQFqi6Yd3IQDB/CgXoXSRH+0iFC/hm12S5eG+4VfUvHpZpxCEDOyIPJEBZw5yQjcgsY+7 9xXGJ23BccpJjiYUAniHH4M0Tw39Sqzu0MxQYBWD/G rsyhsCP3ZcwAHuo8hDsoou243Gjv8wY8S2uO24V0P59zAezWONzaFGTAGVo3SYscj6NDgVpBM/OkcodO FC2GizmejmOqIYcZ+3U8W06bR9uGHUwbGLAVKJg+LQjk00LD7V3UD/ukcofORH+Qilj/cvB0S8zU/1I5 Q/8qN/fPZZaaNGEOMOanPLoeK2SOSASUT/OkgohORH XGdvvIbtRcOQxo20GLJI2dACqDwHo/SQUg/svt2R4cL87DMVMvL/ekiph/CDEou2qC6tOwMi8a79eENF +qOHlHpIf/SQUg/wyt1R0fD64SWNUiG/ekiph/GUFoj0iV5yQvEz5l64gIZJ+js/8wCchfwo9zTBswrH 2xAqvpfg7cJ/3fKdkbN3ugAF6yvS6rCSwg/ZmjZd86 OHlHpIf/SQUg/ppd2W2eJ90EUSGgH/ekiph/VLBas1yT1kZaYh4j03oHXT+qOHlHpIf/SQUg/bqz4E7l N45RYRZjW/ekiph/VVJeh3hG5tYvVg7w99pMHX+qOHlHpIf/SQUg/tbg9X0qG01NPGDkQ/ekiph/RHDy f1zM3qUdKp1h28xQZF+qOHlHpIf/SQUg/xet5V3iL2 0UNKPaQ/ekiph/LKNqo9eL7uBkHf4t57pVQJ+qOHlHpIf/SQUg/dqh5zR3gYtT/kHEtMASJU9DFWVTco x/lkCtUZCJYiUiwFAh7CrlBfpV5Bi2Q+KP1R+mP0x+iP0R+jP0Z/jP4Y/TH6Y/TH6I/RH6M/Rn+M/hj9 Mfoz6M+gP4P+DPoz6M+gP4P+DPoz6M+gP4P+DPoz6M +gP4P+EPqt3Eqem9Bvfo7Cs0o+OP1x+uP0x+mP05/Ws5z+OP1x+uP0J+hP0J+gP0F/gv4E/Qn6E/Qn6E /Qn6A/QX+C/jT0IydK0TlXe3p/Lg5W0YkXz3i/Zz0I6DcVo9k/Cj9Q3KcFy2h/Ql6F8OsOu4B/Fv1Z9G fRn0V/Ww5U0OsWt3X/Wd0F1LxZe5C/Sg2W4WjUq69/ Ch7E5HjFz40/Yw1W7RnXy52/Hv1Y0PeSz61/Ga0S1Dtxvj+HxdcjoIMXX9LLy0wLgs8LtkS2Ao0B+rRn 45Xmvo73iu4p5zt4/6T5J80/af5J80+af9L8k+afNP+k+FjRuy7vbaru8hMhgr6tvr0EOyAdUJdxKyYy hpAmIqSpCGkyQpqOkCYkpCkJaVJCmpaQJiakqQlpck [file] s67yd1F7889XJ5O+9/++7jd+8//j3qhi96cIn5+O33 n95/8+7z32cPF7+/++2bDz/ryM1j7/974ADsOUACQvVj1z/z/UhnR3x49/K0U797+Pb9m7/y2/sFfP/2 4/u//+rTyxfff/F1e7g5R1613hoKOj91++V//St/I9WVTy//+Xs2388qdQJTfi+/vqQc5hb/+zQil862 9/5jc93m04/96cxT51574iWJ6c4+/+2Gu774/dfOIJ mxftd2l/Py7su//ys/u/nA/bN//CgbH69U+fo3bz6+e/vyj+8/fXX/mlj3i95zqav5705//Wy6aAcNrN sP77/+1bNQulrxW17+/44gNvl78n7P30692AYNd6sYjUraqFl37pjG417+fB+caOx8gr///Kd/+eNffv zhn1/+23+8/Hx8lo1jUw/htStgucg59vcoh1261/7d h5d/+hvxf/rblz//6UV/HndSeQPcym6128/8/c3X/+qsOaQBrWv0J5/81b/d4LagmBR8eb/+FnjzVwb/ 1L661y6YaS+uB1x/d/3dBBqCPGfX+g0U1pKqnZfj9sQ9LOygG7/vl5fr5/0S6XbGEv/8yw9/+Uu46/OX l998/Pa3MVK++066c203/ZO+tp/83fHzF/cflmd/6n D+eZS/k8ebf28r11EQdbSR9sp+k/vntz/86d//7uUvv//3R75s36w13Njxt7Y/7JydknGdWRNo2T3Ww/ n48sc//fsPf/nfv//Zi2D49uN/tvtzqcbPd7/Bf/j43cs//6/Xk//jn//08/3HcnY/23/u4sH+4dOv/u HTH4C/pi1VhTa+q/3Op83m87w/mwOv4346ue7zwo/A doPEhpVN4ndUR1gqt/bz14wkIg0/f374t/989jnB9rtlvY589His9/+f/mb0l//4yz/97c9+va/Er3/4 8ff/+hZtbJ2Af/n7//WH3//bH3//p/+8h8cTH//85x8/i9bgNa8GH/ZZf/jzHz5//KnaEqqrFVW1VI6c D//jT3/8w+thPr+OzDy78W6ZASE/+2///jp6/vnzX3 /4/q3gU0596PCrKq7tk09/9+3Ht+/+1snO5Zh+fPv1/RE71rXfdird1C//k/rRGL9vEzI/8/v//sOLvP a1M036RKhO0+xM3B30PCgk/cu71/2qK6pcmo12pH92scLTby/82geJ3xF+phZ89aibi/3+m9ff3l/P/f NIh5av2/5GewCLnvjmwyIdfPCpQC3VWM3ir9YhOdC1 NLRxx4CvIZgxMWy8aHFaQTcslgVss6SakstpZ8Wrz5YnFuNnTRHvCwQyKcj1EQGnCmO6jFAoHlSiLYLg H1NaJHBkNtA2BhEvGHLKDN5ZYEAefnLzTmJyAZJ+EnUvPI5nfdusQAVjz9AvCQgpTItwSDVnF8F4hPch LRSdW9XphB51FQMiT2KeluC2NDJ6BAPiCvWyJSOxzX AxOSAwIFI+VeUwFZ8mdhdhCUYvt8LfIWdnHPB0eV4fTZiTEQNPQAnNRApdFfP5i72yvsDSVEHhLLXgYS 7IuhGzrIhtbbMrlFHfWVA7LiRkZHIhPSfjXWJ8XQLIDGEyKQSxYMUrDDWdP2ZkjTahPJlBDHPBQNfJIQ aoIgNru3E0MCRuqhVQWSWPLVNPADSBHCD9SDIwDsSo DY3KtRLmKFC8TBlCLFPOSDbPUYgbXeCtr2D0VWHfY3EiBZRtniHxLSVNGSczRszcGB3ybHvdmksmT5Sr qUZsOUJMCKBjWSNyRFHgGATuS0Mbh8R7E3AaSQmUTFKCPBvEAEvySmM3t26zytRMFLRbSTRvYC3+ZW5k r7RhAp5LCRQdRU3sgdj6JI2SmRKhPJ5GAIohthRrG9 vwztGgBpZpKMHLAG0eM5KcnO48QHV+HvKeTW4rotw3irUdFeKpIWSkCINhMZKbLQpqDDBlUUHaHPNnDL J4GZA1ZJGcWjFsCTFoGpP1KoviCILuVANgsvMBSNAhZHC8VZMtNsHzGOQoYUHlRMcwVNJaYSB8GeA0LK EeOEXoWG3gRhViDRJwCTQgIREcXiC1VcZjEmNEJIXr QJEySZVqVcChMFVhLOVzEEgjNZYgZLNzTFn0ZULbNPTpBC0dSuWyNCHsNSKcUPNvULRaLYKtneYODGNy VONqQSX3YQKtZLSsYOTyDWbxTVLwOPWiDDK3CUMaQBYqVD3oRgRqGBEiKVI1FwCjUUFjRXGxehZJBEPf QHDkTWT0SYTcFEIqVXVfPFvvBBGyKLVgYxW4UJCvKC KvEG5zMoJoHWJqLCS1ESHsUCKtHSBliwRFFGDiGTIeWKg1MgNjACPwTOVkHMrwUTVtIROnYZmsGWMeYJ FuLL7jInUbYZKrKIXaUUKzOWGbGSPoepVSAVMzDVVsTGA3AhFuUICoBNOnCDmhAVLsNIQcTWV7VXUeQX YaOW5oDlSfHQRvEpT6MmljPONlLRMrzkJKXEIqHZJw GAZwTVYuZGDxEJPdOZjwSQSgIUEwXtO4TZNgYAVwLR6cTwFlSKKvRCD5LLWhAAMuCQTlhaWQQWArVDVx VZMnCVG3FDVjHWXuMKr1dfSvoDCcHyi6Cn0LfYtkGHM2Cm3GgwGqVADuQNBRIp2Jj257DRVxNDDGZhl+ ZxvgsROzeXnbQVGXOxTnHtCMWZKQA1I= ID Date Data Source [id number] 04/06/2019 10:40:50 AM [facility] Value Range Interpretation Code Description Data Cheyenne rce(s) Supporting Document(s) Fibrin D-dimer FEU [Mass/volume] in Platelet poor plas ma by Immunoassay 1.21 ug/mL{FEU} <0.50 [facility] ID Date Data Source [id number] 04/06/2019 10:40:50 AM [facility] Value Range Interpretation Code Description Data Cheyenne rce(s) Supporting Document(s) Prothrombin time (PT) 15.7 s 12.5-14.9 [facility] INR in Platelet poor plasma by Coagulation assay 1.20 [facility] Routine intensity oral anticoagulation I NR is typically 2.0-3.0. Target INR must be clinically individualized. ID Date Data Source [id number] 04/06/2019 10:42:25 AM [facility] Value Range Interpretation Code Description Data Cheyenne rce(s) Supporting Document(s) Fibrinogen [Mass/volume] in Platelet poor plasma by Coagulat ion assay 662 mg/dl 190-450 [facility] ID Date Data Source [id number] 04/06/2019 10:44:30 AM [facility] Value Range Interpretation Code Description Data Cheyenne rce(s) Supporting Document(s) Phosphate [Mass/volume] in Serum or Plasma 3.8 mg/dL 2.5-4.5 [facility] ID Date Data Source [id number] 04/06/2019 10:44:30 AM [facility] Value Range Interpretation Code Description Data Cheyenne rce(s) Supporting Document(s) Bicarbonate [Moles/volume] in Serum 22 mmol/L 22-29 [facility] Chloride [Moles/volume] in Serum or Plasma 98 mmol/L 98-107 [facility] Creatinine [Mass/volume] in Serum or Plasma 2.24 mg/dL 0.50-0.90 [facility] Glucose [Mass/volume] in Serum or Plasma 184 mg/dL 70-140 [facility] Potassium [Moles/volume] in Serum or Plasma 5.2 mmol/L 3.4-5.1 [facility] Sodium [Moles/volume] in Serum or Plasma 134 mmol/L 136-145 [facility] Urea nitrogen [Mass/volume] in Serum or Plasma 56 mg/dL 8-23 [facility] Anion gap 3 in Serum or Plasma 14 mmol/L 8-15 [facility] Osmolality of Serum or Plasma by calculation 298 mosm/kg 275-300 [facility] Creatinine/Urea nitrogen [Mass Ratio] in Serum or Plasma 25 [facility] Calcium [Mass/volume] in Serum or Plasma 10.4 mg/dL 8.8-10.2 [facility] Glomerular filtration rate/1.73 sq M pre dicted among non-blacks [Volume Rate/Area] in Serum or Plasma by Creatinine-based formula (MDRD) 22 mL/min/1.73m2 >60 [facility] Glomerular filtration rate/1.73 sq M pre dicted among blacks [Volume Rate/Area] in Serum or Plasma by Creatinine-based formula (MDRD) 26 mL/min/1.73m2 >60 [facility] ID Date Data Source [id number] 04/06/2019 10:44:30 AM EST [facility] Name Value Range Interpretation Code Description Data Cheyenne rce(s) Supporting Document(s) Urate [Mass/volume] in Serum or Plasma 12.6 mg/dl 2.4-5.7 [facility] ID Date Data Source [id number] 04/06/2019 11:13:26 AM [facility] Value Range Interpretation Code Description Data Cheyenne rce(s) Supporting Document(s) Reticulocytes/100 erythrocytes in Blood by Automated count 5.0 % 0.6-2.8 [facility] Reticulocytes [#/volume] in Blood 172.0 10*3/uL 26-122 [facility] Immature reticulocytes/Reticulocytes.total in Blood 0.35 % 0.26-0 .52 [facility] ID Date Data Source [id number] 04/06/2019 12:55:32 PM [facility] Value Range Interpretation Code Description Data Cheyenne rce(s) Supporting Document(s) Cobalamin (Vitamin B12) [Mass/volume] in Serum or Plasma 1491 pg/ml 2 11-946 [facility] ID Date Data Source [id number] 04/06/2019 12:55:32 PM [facility] Value Range Interpretation Code Description Data Cheyenne rce(s) Supporting Document(s) Thyrotropin [Units/volume] in Serum or Plasma 7.080 u[IU]/mL 0.270-4. 200 [facility] ID Date Data Source [id number] 04/06/2019 12:55:32 PM [facility] Value Range Interpretation Code Description Data Cheyenne rce(s) Supporting Document(s) Ferritin [Mass/volume] in Serum or Plasma 690 ng/ml 13-150 [facility] ID Date Data Source [id number] 04/06/2019 12:55:32 PM [facility] Value Range Interpretation Code Description Data Cheyenne rce(s) Supporting Document(s) Natriuretic peptide.B prohormone N-Terminal [Mass/volu me] in Serum or Plasma 1067 pg/mL <125 [facility] ID Date Data Source [id number] 04/06/2019 01:00:28 PM [facility] Value Range Interpretation Code Description Data Cheyenne rce(s) Supporting Document(s) Lactate dehydrogenase [Enzymatic activit y/volume] in Serum or Plasma by Lactate to pyruvate reaction 676 U/L 122-214 [facility] ID Date Data Source [id number] 04/06/2019 04:03:43 PM [facility] Name Value Range Interpretation Code Description Data Cheyenne rce(s) Supporting Document(s) Haptoglobin [Mass/volume] in Serum or Plasma 190 mg/dl 30-200 [facility] ID Date Data Source [id number] 04/06/2019 08:42:00 AM [facility] Name Value Range Interpretation Code Description Data Cheyenne rce(s) Supporting Document(s) [facility] ospital [id number]E4sTRvP3ZspOJaj5igL5CgC2BnQBXiGTOFTY2TjQGn jb2 [file] [id number] ID Date Data Source [id number] 04/06/2019 07:48:44 AM [facility] Name Value Range Interpretation Code Description Data Cheyenne rce(s) Supporting Document(s) Glucose [Mass/volume] in Capillary blood by Glucometer 161 mg/dL 70- 140 [facility] ID Date Data Source [id number] 04/06/2019 12:54:23 AM [facility] Name Value Range Interpretation Code Description Data Cheyenne rce(s) Supporting Document(s) Albumin [Mass/volume] in Serum or Plasma by Bromocresol green (BCG) dye binding method 4.0 g/dL 3.5-5.2 [facility] Bil[facility].total [Mass/volume] in Serum or Plasma 0.8 mg/dL <1.2 [facility] Calcium [Mass/volume] in Serum or Plasma 9.9 mg/dL 8.8-10.2 [facility] Chloride [Moles/volume] in Serum or Plasma 101 mmol/L 98-107 [facility] Creatinine [Mass/volume] in Serum or Plasma 2.23 mg/dL 0.50-0.90 [facility] Glucose [Mass/volume] in Serum or Plasma 170 mg/dL 70-140 [facility] Alkaline phosphatase [Enzymatic activity/volume] in Serum or Plasma 67 U/L 35-104 [facility] Potassium [Moles/volume] in Serum or Plasma 5.6 mmol/L 3.4-5.1 [facility] Protein [Mass/volume] in Serum or Plasma 7.4 g/dL 6.4-8.3 [facility] Sodium [Moles/volume] in Serum or Plasma 135 mmol/L 136-145 [facility] Aspartate aminotransferase [Enzymatic activity/volume] in Serum or Plasma 19 U/L <32 [facility] Urea nitrogen [Mass/volume] in Serum or Plasma 58 mg/dL 8-23 [facility] Osmolality of Serum or Plasma by calculation 300 mosm/kg 275-300 [facility] Creatinine/Urea nitrogen [Mass Ratio] in Serum or Plasma 26 [facility] Bicarbonate [Moles/volume] in Serum 20 mmol/L 22-29 [facility] Alanine aminotransferase [Enzymatic activity/volume] in Seru m or Plasma 16 U/L <33 [facility] Anion gap 3 in Serum or Plasma 14 mmol/L 8-15 [facility] Albumin/Globulin [Mass Ratio] in Serum or Plasma 1.2 [facility] Glomerular filtration rate/1.73 sq M pre dicted among non-blacks [Volume Rate/Area] in Serum or Plasma by Creatinine-based formula (MDRD) 22 mL/min/1.73m2 >60 [facility] Glomerular filtration rate/1.73 sq M pre dicted among blacks [Volume Rate/Area] in Serum or Plasma by Creatinine-based formula (MDRD) 26 mL/min/1.73m2 >60 [facility] ID Date Data Source [id number] 04/06/2019 03:11:40 AM [facility] Name Value Range Interpretation Code Description Data Cheyenne rce(s) Supporting Document(s) Leukocytes [#/volume] in Blood by Automated count 23.3 10*3/uL 4-10 [facility] Confirmed Erythrocytes [#/volume] in Blood by Automated count 3.40 10*6/uL 4.1- 5.3 [facility] Hemoglobin [Mass/volume] in Blood 9.5 g/dL 11.5-15.5 [facility] Hematocrit [Volume Fraction] of Blood by Automated count 30.4 % 3 6-45 [facility] Erythrocyte mean corpuscular volume [Entitic volume] by Auto mated count 89.6 fL 80-96 [facility] Erythrocyte mean corpuscular hemoglobin [Entitic mass] by Automated count 28.0 pg 27-33 [facility] Erythrocyte mean corpuscular hemoglobin concentration [Mass/volume] by Automated count 31.3 g/dL 32.0-36.0 [facility] Erythrocyte distribution width [Ratio] by Automated count 22.8 % 11.5-14.5 [facility] Platelets [#/volume] in Blood by Automated count 50 10*3/uL 150-400 [facility] ConfirmedMANUAL PLAT RESULT Differential cell count method - Blood [facility] Neutrophils/100 leukocytes in Blood by Automated count 47 % [facility] Lymphocytes/100 leukocytes in Blood by Automated count 15 % [facility] Monocytes/100 leukocytes in Blood by Automated count 25 % [facility] Basophils/100 leukocytes in Blood by Automated count 1 % [facility] Neutrophils [#/volume] in Blood by Automated count 10.94 10*3/uL 1.8- 7.0 [facility] Lymphocytes [#/volume] in Blood by Automated count 3.35 10*3/uL 1.2-4 .0 [facility] Monocytes [#/volume] in Blood by Automated count 5.59 10*3/uL 0-0.8 [facility] Confirmed by 1521 Basophils [#/volume] in Blood by Automated count 0.23 10*3/uL 0-0.2 [facility] Nucleated erythrocytes/100 leukocytes [Ratio] in Blood by Automated count 22 /100{WBCs} 0-0 [facility] Confirmed by 1521 Band form neutrophils/100 leukocytes in Blood by Manual count 2 % [facility] Myelocytes/100 leukocytes in Blood by Manual count 7 % [facility] Confirmed by 1521 Metamyelocytes/100 leukocytes in Blood by Manual count 3 % [facility] Band form neutrophils [#/volume] in Blood by Manual count 0.46 10*3 /uL 0-0.6 [facility] Myelocytes [#/volume] in Blood by Manual count 1.57 10*3/uL 0-0 [facility] Metamyelocytes [#/volume] in Blood by Manual count 0.66 10*3/uL 0-0 [facility] Anisocytosis [Presence] in Blood by Light microscopy [facility] Hypochromia [Presence] in Blood by Light microscopy [facility] Poikilocytosis [Presence] in Blood by Light microscopy [facility] Stomatocytes [Presence] in Blood by [facility] ID Date Data Source [id number] 04/21/2019 06:35:00 PM [facility] Hematopathology Report See Addendum Zeeshan w* Amended *Name: PATRICIA COTTON VMRN: [id number] Number: [id number] Date: 04/06/2019 00:00Received Date: 04/06/2019 14:04Physician(s): ZAFAR DIAZ BHASKARASpecimediane(s) ReceivedA: Bone Marrow Aspirate, [facility]IC; Received 1 clot and 6 aspirate smearsB: Bone Marrow Biopsy, [facility]; Received 1 biopsy and 6 touch prepsC: Blood; Received 4 PB smearsD: Bone Marrow, Flow Cytometry; Recieved 1 green top BM (1 EDTA toMolecular)Clinical Vgjktmi29-rcxo-ctz female with leukocytosis, anemia, thrombocytopenia, fatigue,shortness of [...] ADDENDUM:Next-generation sequencing performed on this specimen by [facility] (MyeloidMolecular Profile; see JEFFREY molecular report MD20- [...] additional discussion, see the full report from [facility] within theResults section of the patient's electronic medical record. Addendum Electronically Signed By: Radha Kaur M.D., Ph.D. 04/21/2019 18:29 Addendum 04/11/2019 ADDENDUM:FISH testing of this specimen (see [id number]) is negative for a t(9;22)BCR-ABL1 gene rearrangement, [...] cassettefollowing decalcification.DP/pmwMicroscopic DescriptionPERIPHERAL BLOOD: CBC performed at [facility] on 04/06/2019 (#[id number]) White blood cell *23.3 K/uL Red blood cell *3.4 M/uL Hemoglobin *9.5 g/dL Hematocrit *30.4 % Mean cell volume 89.6 fL Mean cell hemoglobin 28 pg Mean cell Hgb conc *31.3 g/dL Red cell dist width *22.8 % Platelet count *50 K/uLDifferential count (200 cells): 1.5 % Blasts 6 % Wljstgqokn27.5 % Ucjfqlqmvegvhh65.5 % Neutrophils 1 % Umdnqlpyr68 % Sakliprvqlu73.5 % Monocytes--------100.0 %PERIPHERAL BLOOD SMEAR: Leukocytosis with [...] Erythroid precursors 4.2 % Blasts 2.8 % Jbszfptebthpb67.4 % Neutrophils and precursors 2.4 % Eosinophils [...] and severe thromb ocytopenia (50 K/uL).ANCILLARY STUDIES:Karyotype ([id number]):44,XX,-5,-7,add(17)(p11.2),dmin[19]/46,XX[1].FISH ([id number]): 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 ProceduresFlow C ytometry Date Ordered:04/06/2019 Status: Signed Out04/07/2019 InterpretationAcute Panel for Yury Iqbal [id number] 04/06/2019The following markers were assayed: CD45 (gate), CD1a, CD2, CD3, CD4, CD5,CD7, CD8, CD10, CD11b, CD13, CD14, CD15, CD19, CD20, CD25,CD33, CD34,CD38, CD41, CD56, CD57, CD64, CD71, CD117, CD123, [place], Lambda, andHLA-DR.Events: 55355Ufmkpxqcj: 89%Flow Cytometry Differential (CD45/SSC)Lymphocyte Turin: 5%CD45 dim Turin: 2%Monocyte Turin: 8%Granulocyte Turin: 30%Nucleated/Erythroid Turin: 46%The lymphocyte gate showsB- Cells (CD19): 1%Tehama/Lambda Ratio: 2.1T-Cells (CD3): 92%CD4/CD8 Ratio: 1.0NK Cells: 0%Results (expressed as % of LYMPHOCYTE gate):B-Cell Markers: [place] = 0.5, Lambda = 0.4, CD19 = 1, CD20 = 7, CD19/10 =0, CD19/CD5 = 0, CD38/CD20 = 1Light chain as % of B-Cells: CD19/Tehama = 63, CD19/Lambda = 30T-Cell Markers: CD2 = 98, CD3 = 92, CD3/CD4 = 47, CD5 = 85, CD7 = 83,CD3/CD8 = 48, CD3/57 = 40NK Cell Markers: CD56 = 9, CD57 = 42Other Markers: CD10 = 0, CD38 = 21Results (e xpressed as % of BLAST gate):B-Cell Markers: [place] = 0.0, Lambda = 1.9, CD19 = [...] CD123= 62, HLA-DR = 58Acute-Cytoplasmic Panel for [facility] HP20- 472 [id number] following markers were assayed: CD45 (gate), TDT, cCD22, cCD79a, MPO,and cCD3.# events: [id number]: 91%Flow Cytometry Differential (CD45 dim/SSC):Lymphocyte Turin: 5%Blast Turin: 4%Monocyte Turin: 6%Granulocyte gate: 34%NRBC Turin: 12%Results (expressed as % of blast gate):T-cell [...] elliott- T cell antigens and a normal CD4/HF4vjshs, an increased proportion of cytotoxic T cells, [...] were developed and theirperformance characteristics determined by [facility] Pathology department.They have not been cleared or approved by the US Food and DrugAdministration. The FDA has determined that such clearance or approval isnot necessary. Name Value Range Interpretation Code Description Data Cheyenne rce(s) Supporting Document(s) ID Date Data Source [id number] 04/19/2019 02:25:00 PM [facility] Molecular Diagnostics ReportName: PATRICIA COTTON VMRN: [id number] Number: [id number] Date: 04/06/2019 00:00Received Date: 04/08/2019 15:52Physician(s): ZAFAR IDAZ KRISHNA BCopy To:RADHA KAUR KSpecimen(s) ReceivedA: Bone Marrow - [facility] for NGS MyeloidTYPE OF STUDY: Myeloid Molecular ProfileCOMMENTS: A bone marrow sample for this patient was sent to [facility], [address] [place], [place] [address] for analysis. Please see link forscanned external [...] alberto MD, PhD AttendingPathologist 04/19/2019 14:25:55Reported at [address] [place] [address]. Name Value Range Interpretation Code Description Data Cheyenne rce(s) Supporting Document(s) ID Date Data Source [id number] 04/08/2019 12:03:00 PM [facility] Cytogenetics Report See Addendum BelowNa me: PATRICIA COTTON VMRN: [id number] Number: [id number] Date: 04/06/2019 00:00Received Date: 04/06/2019 14:13Physician(s): ZAFAR DIAZ BHASKARASpecfrancheska(s) ReceivedA: Bone Marrow - Karyotype analysis and FISHClinical Pxegwlq30-bpvl-dmj female with leukocytosis, anemia, and thrombocytopenia,fatigue, shortness [...] and was reported on 04/08/19. [facility] [id number].DATA:SPECIMEN TYPE: BONE MARROW CULTURE TYPE: 24 HOUR UNSTIMULATEDNUCLEI EVALUATED for ADDITIONAL FISH: 200ISCN Nomenclature: nuc dayday (ABL1,BCR)x2[190/200] COMMENTS:Interphase FISH was performed utilizing an LSI BCR/ABL1 ES probe from[employer] It is a combination, direct labeled [...] been validated and authorized for [facility] ([facility]). However, the procedure isconsidered investigational, and should not be used as the sole criteriafor diagnosis. Procedure Electronically Signed Yokasta Curran MD, PhD 04/11/2019 15:13 DiagnosisCYTOGENETIC RESULTS: 44,XX,-5,-7,add(17)(p11.2),dmin[19] 46,XX[1]FISH RESULTS: nuc dayday (TP53x1,M49K9l9)[71/100],(TP53x1,A90R2f2)[100]INTERPRETATION: Monosomy 5, monosomy 7, hemizygosity for TP53 [...] 17 centromere. A recent chromosome analysis study ([id number]: peripheral blood) showedloss of chromosomes 5,7 and 17, a marker chromosome and a double minute.The current chromosome analysis showed better morphology and the markerchromosome has now been reclassified as "add(17)(p11.2)".A combination of monosomy 7, monosomy 5 and deletion 17p (hemizygosity forTP53) is associated with a poor prognosis in MDS and AML. Please correlatewith concurrent Hematopathology report ([id number]).Electronically Signed By Ramses Carl, Ph.D., [facility], Director ofCytogenetics 04/08/2019 12:03:46Gross DescriptionDATA:SPECIMEN TYPE: BONE MARROW CULTURE TYPE: 24 HOUR UNSTIMULATED METAPHASES COUNTED AND ANALYZED: 20 METAPHASES KARYOTYPED: 3BAND RESOLUTION: 400-450NUCLEI EVALUATED FOR FISH: 100ISCN NOMENCLATURE: 44,XX,-5,-7,add(17)(p11.2),dmin[19]/46,XX[1]nuc dayday (TP53x1,A79U9b1)[71/100],(TP53x1,C33A7y9)[100] COMMENTS: Fluorescence in situ hybridization (FISH) studies were performed toevaluate specifically for abnormalities of chromosome 17. The probe wasobtained from [employer], [employer]. Hybrid ization was carried out as per [...] Name Value Range Interpretation Code Description Data [facility](s) Supporting Document(s) ID Date Data Source [id number] 04/06/2019 12:53:45 AM [facility] Service Cmnt XXX-Imp : Microorganism XXX [...] Name Value Range Interpretation Code Description Data [facility](s) Supporting Document(s) ID Date Data Source [id number] 04/05/2019 09:20:26 AM [facility] Name Value Range Interpretation Code Description Data [facility](s) Supporting Document(s) Flow cytometry study [facility] ID Date Data Source [id number] 04/05/2019 01:15:00 PM [facility] Hematopathology Report See Addendum Zeeshan wName: PATRICIA COTTON VMRN: [id number] Number: [id number] Date: 04/03/2019 00:00Received Date: 04/04/2019 13:58Physician(s): PEDRO PABLO REECE SHAHANDEH FCopy To:[facility]ALTHpecimen(s) ReceivedA: Blood, Flow Cytometry; Received 2 green top PB (2 EDTA PB to Molecular)Clinical Meqawja97-jqzu-nnb female with leukocytosis, anemia, and thrombocytopenia DiagnosisPeripheral [...] 04/08/2019 ADDENDUM:Cytogenetic analysis of this specimen (see [id number]) yielded the followingresult:Karyotype: 44,XX,-5,-7,-17,+mar,dmin[19]/46,XX[1].This karyotype is similar to that derived from the subsequent bone marrowbiopsy collected 04/06/2019 (see GD01-350 and VH36-167). That karyotypeshowed better morphology, and the marker chromosome was reclassified as"add(17)(p11.2)". FISH studies of the latter karyotype also detecteddeletion 17p in 71% of nuclei, consistent with hemizygosity for the QK49uawi. Addendum Electronically Signed By: Radha Kaur M.D., Ph.D. 04/09/2019 17:09 Microscopic DescriptionPERIPHERAL BLOOD: CBC performed at [facility] on 04/03/2019 White blood cell *23.3 K/uL Red blood cell *2.71 M/uL Hemoglobin *7.4 g/dL Hematocrit *24.8 % Mean cell volume 91.5 fL Mean cell hemoglobin 27.3 pg Mean cell Hgb conc *29.8 g/dL Red cell dist width *22.1 % Platelet count *49 K/uLDifferential count (100 cells): 1 % Blasts 7 % Bxpxybqifj50 % Nyslntzxsbzhfg57 % Neutrophils 1 % Eosinophils 8 % Busmphqtfgy34 % Monocytes--------100.0 %PERIPHERAL BLOOD SMEAR: Leukocytosis with absolute neutrophilia, absolutemonocytosis, frequent left-shifted granulocytes, and a rare blast. Manygranulocytes are dysplastic with abnormally segmented nuclei,binucleation, and/or hypogranular cytoplasm. Moderate to severe anemiawith marked anisopoikilocytosis including elliptocytes, teardrop cells,macrocytes, microcytes, and frequent nucleated red blood cells (12 per 100leukocytes). Severe thrombocytopenia. ProceduresFlow Cytometry Date Ordered:04/04/2019 Status: Signed Out04/05/2019 InterpretationAcute Panel for Yury Iqbal [id number] 04/03/2019The following markers were assayed: CD45 (gate), CD1a, CD2, CD3, CD4, CD5,CD7, CD8, CD10, CD11b, CD13, CD14, CD15, CD19, CD20, CD25,CD33, CD34,CD38, CD41, CD56, CD57, CD64, CD71, CD117, CD123, [place], Lambda, andHLA-DRMarielEvents: 85138Apdawlwkh: 92%Flow cytometry differential (CD45/SSC)Lymphocyte Turin: 4%CD45 dim Turin: 2%Monocyte Turin: 12%Granulocyte Turin: 53%Nucleated/Erythroid Turin: 18%The lymphocyte gate showsB-Cells (CD19): 4%[place]/Lambda Ratio: 1.9T-Cells (CD3): 79%CD4/CD8 Ratio: 0.8NK Cells: 2%Results (expressed as % of LYMPHOCYTE gate):B-Cell Markers: [place] = 3.7, Lambda = 1.3, CD19 = 4, CD20 = 5, CD19/10 =0, CD19/CD5 = 1, CD38/CD20 = 2Light chain as % of B-Cells: CD19/[place] = 56, CD19/Lambda = 30T-Cell Markers: CD2 = 87, CD3 = 79, CD3/CD4 = 36, CD5 = 75, CD7 = 75,CD3/CD8 = 44, CD3/57 = 34NK Cell Markers: CD56 = 10, CD57 = 38Other Markers: CD10 = 2, CD38 = 30Results (expressed as % of BLAST gate):B-Cell Markers: [place] = 0.2, Lambda = 0.3, CD19 = [...] were developed and theirperformance characteristics determined by [facility] Pathology [facility] .They have not been cleared or approved by the [place] Food and DrugAdministration. The FDA has determined that such clearance or approval isnot necessary. Name Value Range Interpretation Code Description Data [place] rce(s) Supporting Document(s) ID Date Data Source [id number] 04/07/2019 10:40:00 AM [facility] Cytogenetics ReportName: PATRICIA COTTON VMRN : [id number] Number: [id number] Date: 04/03/2019 00:00Received Date: 04/04/2019 14:08Physician(s): PEDRO PABLO REECE SHAHANDEH FSpecimen(s) ReceivedA: Peripheral Blood (-)Clinical [id number] female with leukocytosis, anemia, and thrombocytopeniaTEST REQUESTED/PERFORMED: [...] deletionof TP53. Please correlate with concurrent Hematopathology report([id number]).Electronically Signed By Ramses Carl, Ph.D., FAC, Director ofCytogenetics 04/07/2019 10:40:14Gross DescriptionDATA: SPECIMEN TYPE: PERIPHERAL BLOOD CULTURE TYPE: 24 HOUR UNSTIMULATED METAPHASES COUNTED AND ANALYZED: 20 METAPHASES KARYOTYPED: 4BAND RESOLUTION: 400ISCN Nomenclature: 44,XX,-5,-7,-17,+mar,dmin[19]/46,XX[1] Name Value Range Interpretation Code Description Data [place] rce(s) Supporting Document(s) ID Date Data Source [id number] 03/31/2019 06:26:17 PM EST [facility] Name Value Range Interpretation Code Description Data [place] rce(s) Supporting Document(s) &PDF [facility] GTXJUr1fNfXPNdTy06/LIHkmDRGxb8WdYBvhRLb0XHldKEZdY2PhsPfpMBzRXPNfVsYYBCUKOJDMXJ8j oRX [file] iqIoiqIoiqIoiqIoiqIoiqIoiqIoiqIoiqIoiqIoiq IoiqJ+R/4IlXo7go7BCN1qt0IlIHZpNCmelrJmDojBDaM9CWKca8UuMOqeEX9GLZ3re1FfOOsdAQXmy0 RiSHv2BW3LSJWtPIChG6HvlPIlC1QKZk7YFRn4W6efBRxjOd1FcHMpKOCwNYokEB7Lh585VCw6YI0JQY QtCJIoHNXXDtAbOJLmIbDbFRVtTSYYFw0KFiSbO3kD TzdhP9VgQUawI8bxSkWyVWMuYZRMKFnaDMFiS5bwPnTyUFOuUYMXQf0JBmIiC8B4eCcLwJM7XDR2UM1W YrTNMrSbFDo9S9P0iLErZ6S2wQdHgOO5DU4QDB0PDKWyPZ6+YdAgL4LUTAnACKR5SY0ZpJOsJB5AlVUC V2OypTZgKz7cQBMtwCvskFi+WfEgJ1ZJYACZGZG5BH 6YeKHyQY3KdUIGV4HoyGKqZc4cVRrxDuJzUY7pZS9+SS9BLFKHUmVLZnRjLEjlZDixXEPaKHd1F4J4MK ImB0JDV4L9B4f4y8uijf5+FQ6OSMQoV8RVNBXBFtCpLWnoIXpwMXKmVHo4R7Q8QFTvI2EDL7drB2z2GP 4+PiANCiAgID4+DQo+Aa0WPW7ho7YtTIyfJaHjCA9m im6PCEioQHJvQ4OxVLNxVTfsD4JmdPyhWX8HBBccZDwnQJ3XSGMcUZL4RE6+TRrbbTYzPX3LCej/eHBh Q6xjaRZqRVgyag3d09l/HgWvPE0yMyVEMX5rF5FkjLq9zbVSai3JJ1nmAsxdIl6+SWkfVQs3NhjzpQ8k kQYpzXz3mMZ6bv0mVe8iPYryEUkzlV9xacN0kL3sIH LuYjK2bpB4lGQ4PX9kKs8CJUUyNDdsLRO7NxLFZYajqA5uWzKmZm3frAC6jIlvB4c9bm64Pn0eexpbND f8YN8hYq3nAd2nAFPbw4osxZQ4XC0fMxt+FMliXSGiFP6zOQV0ThGNXs0MCUR9W9p2wP0ggWJ2RP4DRh AgICAgICAgICAgICAgICAgICAgICAgICAgICAgICAg ICAgICAgICAgICAgICAgICAgICAgICAgICAgICAgICAgICAgICAgICAgICAgICAgICAgICAgICAgICAg ICAgICAgICANCiAgICAgICAgICAgICAgICAgICAgICAgICAgICAgICAgICAgICAgICAgICAgICAgICAg ICAgICAgICAgICAgICAgICAgICAgICAgICAgICAgIC AgICAgICAgICAgICAgICAgICANCiAgICAgICAgICAgICAgICAgICAgICAgICAgICAgICAgICAgICAgIC AgICAgICAgICAgICAgICAgICAgICAgICAgICAgICAgICAgICAgICAgICAgICAgICAgICAgICAgICAgIC ANCiAgICAgICAgICAgICAgICAgICAgICAgICAgICAg ICAgICAgICAgICAgICAgICAgICAgICAgICAgICAgICAgICAgICAgICAgICAgICAgICAgICAgICAgICAg ICAgICAgICAgICANCiAgICAgICAgICAgICAgICAgICAgICAgICAgICAgICAgICAgICAgICAgICAgICAg ICAgICAgICAgICAgICAgICAgICAgICAgICAgICAgIC AgICAgICAgICAgICAgICAgICAgICANCiAgICAgICAgICAgICAgICAgICAgICAgICAgICAgICAgICAgIC AgICAgICAgICAgICAgICAgICAgICAgICAgICAgICAgICAgICAgICAgICAgICAgICAgICAgICAgICAgIC AgICANCiAgICAgICAgICAgICAgICAgICAgICAgICAg ICAgICAgICAgICAgICAgICAgICAgICAgICAgICAgICAgICAgICAgICAgICAgICAgICAgICAgICAgICAg ICAgICAgICAgICAgICANCiAgICAgICAgICAgICAgICAgICAgICAgICAgICAgICAgICAgICAgICAgICAg ICAgICAgICAgICAgICAgICAgICAgICAgICAgICAgIC AgICAgICAgICAgICAgICAgICAgICAgICANCiAgICAgICAgICAgICAgICAgICAgICAgICAgICAgICAgIC AgICAgICAgICAgICAgICAgICAgICAgICAgICAgICAgICAgICAgICAgICAgICAgICAgICAgICAgICAgIC AgICAgICANCiAgICAgICAgICAgICAgICAgICAgICAg ICAgICAgICAgICAgICAgICAgICAgICAgICAgICAgICAgICAgICAgICAgICAgICAgICAgICAgICAgICAg ICAgICAgICAgICAgICAgICANCjw/hYRiW8njhHEfzkE3V0enLr5NAl1KVM1ji4FqHVCeUOghejJsCywS DaZpFJTkDfeJWhh3RJqnVW3QgLQfD1CpC8BsWLdmUJ 7MJLEpUIBtnBJaUAFfIAJsXoG2VHLoSLbdNJ5VsLGfVMvfMIPqEEIlUzImNYFiOJ2VMHJiU559jzHtGf 9DTn2XElJwXY6nle8YAUbpXBDhMruIZzk5MSgzCC0KrVRqP5OngDVrm7yBYoEkZ3XWABL6KYIcHl3IXD EgYkQlMJDhVXavOF9lPXLrNSUBzHwhgoS9GG1IKU9o egNvJN3MWoOeVp7zSq1IYqCgT1JyS4YtYDWaEJRHDGlzLW2FLIYuZEI2WKMgTeAfVDMGSjEvI37pMA4S P5Abx02cWxX6QZRlFvFlGRdqPC68cElmxgJjyCCjzLigGV1DYx4+DQplbmRvYmoNCnhyZWYNCjAgMTkN VdOdOGRxLGRxTAWrPcD9OeZnAp2QSGOcKECpIEGiSv SsMTNoOTPuPVusTSLuNCC7LuScUAGzTJQrPS4YYiDpNCFfUYZ7KZTyQBOfGEXjqv4WOHAdBALvAYX6NF AmCSFgXOOzACqdZEFtLGDbGxdfQXHnDHZiDA3UEyMlOQKyFWV3CRgnCNLcFKKlxc3GYJHtLDLaTfCiHQ CzVIMhFTHsFElgTMEjGSYhJwUgKIQwOLXgFH2XGrEn YQGpJGMkCLRzBETyIHHlsl3DAWZdIWYrKGP9TlJqMCGtQOWmWVtsCYLhTSJ2Ikt1MQHiICVkEI5CRoGt LHQeKGU4FvzmFMStJLByeu7VGBYuWJSdDNdhXTOjKEQlBPTrMBzzZRJoUOA5SNZ3XAEzRAFyTR9GBpCz MHFuSOO6BCKgVXBfHRKlcn7VTMKoCIZyDUljGFGhTS LoUBVdFWbySMXnIKN8JBWmNXLiTDVuFO4MVtOaYTKhTBZ5HCeiONPrEOZyre5QcBNpjMztsw0TMXgHDf 2WoAbnQCP5YOheUt8htFDuOKXoUMIGCr4UhcJeAYVfQDCJFZwxHUMvBDK7VjG3BTBvMkg8IThoGXguMh T3TsEmJZLuGQV1IIGaReJ4FDz2JZRsA0KrPIUrZOI0 OGViNTZjNjBhMmUxZTYwNWM+XQ0wIDd+Ir3Hb0WbsdO2glDzLYtiSgr6GV4NOTBJC4DCCi== Procedure Social History Code Duration Value Status Description Data Source(s ) Alcohol intake 03/14/2020 12:00:00 AM EST Ex-drinker (finding) comp leted Ex- drinker (finding) [facility] Tobacco use and exposure 03/14/2020 12:00:00 AM EST Never used co mpleted Never used [facility] Smoking 03/14/2020 12:00:00 AM EST Former smoker completed Former smoker [facility] Smoking 12/23/2019 12:00:00 AM EST Former Smoker completed Former Smoker eCW1 ([facility]) Smoking 12/23/2019 12:00:00 AM EST Former Smoker completed Former Smoker eCW1 ([facility]) Smoking 12/23/2019 12:00:00 AM EST Former Smoker completed Former Smoker eCW1 ([facility]) Smoking 12/23/2019 12:00:00 AM EST Former Smoker completed Former Smoker eCW1 ([facility]) Smoking 12/23/2019 12:00:00 AM EST Former Smoker completed Former Smoker eCW1 ([facility]) Smoking 12/23/2019 12:00:00 AM EST Former Smoker completed Former Smoker eCW1 ([facility]) Alcohol intake 12/21/2019 12:00:00 AM EST No completed [facility] Cigarette pack-years 12/21/2019 12:00:00 AM EST UNK completed [facility] Cigarettes smoked current (pack per day) - Reported 12/21/19 12:00:00 AM EST UNK completed [facility] Smoking 12/21/2019 12:00:00 AM EST Current some day smoker com pleted Current some day smoker [facility] Smoking 06/24/2019 12:00:00 AM EDT Former Smoker completed Former Smoker eCW1 ([facility]) Smoking 04/05/2019 12:00:00 AM EST Unknown if ever smoked comp leted Unknown if ever smoked [facility] Vital Signs ID Date Data Source UNK Name Value Range Interpretation Code Description Data Source(s) Diastolic blood pressure 72 mm[Hg] 72 mm[Hg] eCW1 ([facility]) Systolic blood pressure 138 mm[Hg] 138 mm[Hg] e CW1 ([facility]) Body temperature 98.3 [degF] 98.3 [degF] eCW1 ( [facility]) Respiratory rate 18 /min 18 /min eCW1 ([facility]) Heart rate 83 /min 83 /min eCW1 ([facility]) Body mass index (BMI) [Ratio] 26.61 kg/m2 26.61 kg/m2 W1 ([facility]) Body height 68 [in_i] 68 [in_i] eCW1 ([facility]) Body weight 175 [lb_av] 175 [lb_av] eCW1 ([facility]) Diastolic blood pressure 58 mm[Hg] 58 mm[Hg] [facility] Systolic blood pressure 120 mm[Hg] 120 mm[Hg] [facility] Oxygen saturation in Arterial blood by Pulse oximetry 98 % 98 % [facility] Body mass index (BMI) [Ratio] 27.25 kg/m2 27.25 kg/m2 [facility] Body weight 78.926 kg 78.926 kg [facility] Body height 170.2 cm 170.2 cm [facility] Heart rate 66 /min 66 /min [facility] Diastolic blood pressure 60 mm[Hg] 60 mm[Hg] eCW1 ([facility]) Systolic blood pressure 134 mm[Hg] 134 mm[Hg] e CW1 ([facility]) Body temperature 98.7 [degF] 98.7 [degF] eCW1 ( [facility]) Respiratory rate 20 /min 20 /min eCW1 ([facility]) Heart rate 88 /min 88 /min eCW1 ([facility]) Body mass index (BMI) [Ratio] 27.61 kg/m2 27.61 kg/m2 eCW1 ([facility]) Body height 68 [in_us] 68 [in_us] eCW1 ([facility]) Body weight Measured 181.6 [lb_av] 181.6 [lb_av ] eCW1 ([facility]) Diastolic blood pressure 80 mm[Hg] 80 mm[Hg] eCW1 ([facility]) Systolic blood pressure 130 mm[Hg] 130 mm[Hg] e CW1 ([facility]) Body temperature 97.4 [degF] 97.4 [degF] eCW1 ( [facility]) Respiratory rate 20 /min 20 /min eCW1 ([facility]) Heart rate 88 /min 88 /min eCW1 ([facility]) Body mass index (BMI) [Ratio] 27.21 kg/m2 27.21 kg/m2 eCW1 ([facility]) Body height 68 [in_us] 68 [in_us] eCW1 ([facility]) Body weight Measured 179 [lb_av] 179 [lb_av] eC W1 ([facility]) Diastolic blood pressure 72 mm[Hg] 72 mm[Hg] eCW1 ([facility]) Systolic blood pressure 122 mm[Hg] 122 mm[Hg] e CW1 ([facility]) Body temperature 97.9 [degF] 97.9 [degF] eCW1 ( [facility]) Respiratory rate 20 /min 20 /min eCW1 ([facility]) Heart rate 93 /min 93 /min eCW1 ([facility]) Body mass index (BMI) [Ratio] 28.49 kg/m2 28.49 kg/m2 eCW1 ([facility]) Body height 68 [in_us] 68 [in_us] eCW1 ([facility]) Body weight Measured 187.4 [lb_av] 187.4 [lb_av ] eCW1 ([facility]) Diastolic blood pressure 58 mm[Hg] 58 mm[Hg] eCW1 ([facility]) Systolic blood pressure 90 mm[Hg] 90 mm[Hg] e CW1 ([facility]) Body temperature 97.7 [degF] 97.7 [degF] eCW1 ( [facility]) Respiratory rate 20 /min 20 /min eCW1 ([facility]) Heart rate 90 /min 90 /min eCW1 ([facility]) Body mass index (BMI) [Ratio] 29.19 kg/m2 29.19 kg/m2 eCW1 ([facility]) Body height 68 [in_us] 68 [in_us] eCW1 ([facility]) Body weight Measured 192 [lb_av] 192 [lb_av] eC W1 ([facility]) ID Date Data Source [id number] 03/31/2020 08:37:32 AM [facility] Name Value Range Interpretation Code Description Data Source(s) WEIGHT RECORDED 193.56 lb 193.56 lb [facility] WEIGHT RECORDED 185.4 lb 185.4 lb [facility] Body height Measured 64.17 in 64.17 in [facility] WEIGHT RECORDED 183.8 lb 183.8 lb [facility] WEIGHT RECORDED 170.2 lb 170.2 lb [facility] Body height Measured 64.17 in 64.17 in [facility] TRANSFER FROM [facility] ID Date Data Source [id number] 04/21/2019 06:36:07 PM [facility] Name Value Range Interpretation Code Description Data Source(s) WEIGHT RECORDED 185.4 lb 185.4 lb [facility] Patient Treatment Plan of Care Planned Activity Planned Date Details Description Data Source (s) carvedilol 12.5 MG Oral Tablet 03/18/2020 12:00:00 AM [facility] Levofloxacin 500 MG Oral Tablet 03/18/2020 12:00:00 AM [facility] Basaglar KwikPen 100 UNIT/ML Subcutaneou s Solution Pen-injector (insulin glargine) 03/16/2020 12:00:00 AM [facility] maalox/lidocaine/diphenhydrAMINE 1:1:1 SWISH & SWAL or al suspension 03/16/2020 12:00:00 AM [facility] ospital pantoprazole 40 MG Delayed Release Oral Tablet 03/16/2020 12:00:00 AM [facility] Lidocaine 5 % External Patch (LIDODERM) 03/16/2020 12:00:00 AM [facility] Fluconazole 200 MG Oral Tablet 03/16/2020 12:00:00 AM [facility] maalox/lidocaine/diphenhydrAMINE 1:1:1 SWISH & SWAL or al suspension 03/15/2020 12:00:00 AM [facility] ospital Acyclovir 200 MG Oral Capsule 03/15/2020 12:00:00 AM [facility] Tiotropium [place] Monohydrate 2.5 MCG/A CT Inhalation Aerosol Solution (SPIRIVA RESPIMAT) 03/15/2020 12:00:00 AM [facility] sennosides, LONGTERM 8.6 MG Oral Tablet 03/15/2020 12:00:00 AM [facility] eltrombopag 25 MG Oral Tablet 03/15/2020 12:00:00 AM [facility] 3 ML heparin sodium, porcine 100 UNT/ML Prefilled Syri nge 03/11/2020 09:15:16 AM [facility] ospital heparin sodium, porcine 10 UNT/ML Injectable Solution 03/11/2020 09:15:16 AM [facility] ospital sodium chloride (preservative free) 0.9 % flush 10 mL 03/11/2020 09:15:16 AM [facility] ospital NaCl infusion 0.9 % 03/11/2020 09:15:16 AM [facility] heparin sodium, porcine 10 UNT/ML Injectable Solution 03/10/2020 11:13:25 AM [facility] ospital NaCl infusion 0.9 % 03/10/2020 11:13:25 AM [facility] dextrose 50 % IV solution 25 mL 03/06/2020 10:54:02 PM [facility] Glucagon 1 MG Injection 03/06/2020 10:54:02 PM [facility] Glucose 0.417 MG/MG Oral Gel 03/06/2020 10:54:02 PM [facility] INQOVI 35-100 MG TABS 12/14/2019 12:00:00 AM EDT [facility] Pravastatin Sodium 40 MG Oral Tablet 12/06/2019 12:00:00 AM EDT [facility] 7 ACTUAT umeclidinium 0.0625 MG/ACTUAT Dry Powder Inha ler [Incruse] 11/28/2019 12:00:00 AM EDT [facility] 24 HR Isosorbide Mononitrate 60 MG Extended Release Or al Tablet 06/10/2019 12:00:00 AM EDT eCW1 ([facility]) 24 HR Isosorbide Mononitrate 60 MG Extended Release Or al Tablet 06/10/2019 12:00:00 AM EDT eCW1 ([facility]) 24 HR Isosorbide Mononitrate 60 MG Extended Release Or al Tablet 06/10/2019 12:00:00 AM EDT eCW1 ([facility]) 24 HR Isosorbide Mononitrate 60 MG Extended Release Or al Tablet 06/10/2019 12:00:00 AM EDT eCW1 ([facility]) 24 HR Isosorbide Mononitrate 60 MG Extended Release Or al Tablet 06/10/2019 12:00:00 AM EDT eCW1 ([facility]) 24 HR Isosorbide Mononitrate 60 MG Extended Release Or al Tablet 06/10/2019 12:00:00 AM EDT eCW1 ([facility]) 24 HR Isosorbide Mononitrate 60 MG Extended Release Or al Tablet 06/10/2019 12:00:00 AM EDT eCW1 ([facility]) Wheelchair - 05/27/2019 12:00:00 AM EDT e CW1 ([facility]) Shower Chair without wheels 05/27/2019 12:00:00 AM EDT eCW1 ([facility]) Wheelchair - 05/27/2019 12:00:00 AM EDT e CW1 ([facility]) Shower Chair without wheels 05/27/2019 12:00:00 AM EDT eCW1 ([facility]) carbamide peroxide 65 MG/ML Otic Solution [Debrox] 05/16/2019 12 :00:00 AM EDT eCW1 ([facility]) Sodium Chloride 0.111 MEQ/ML Nasal [place] 05/12/2019 12:00:00 AM EDT eCW1 ([facility]) Amoxicillin 875 MG / Clavulanate 125 MG Oral Tablet 04/22/19 12:00:00 AM EST eCW1 ([facility]) Tiotropium [place] Monohydrate 2.5 MCG/A CT Inhalation Aerosol Solution (SPIRIVA RESPIMAT) 04/10/2019 12:00:00 AM [facility] 24 HR Isosorbide Mononitrate 60 MG Extended Release Or al Tablet 04/10/2019 12:00:00 AM [facility] ospital calcium polycarbophil 625 MG Oral Tablet 04/10/2019 12:00:00 AM [facility] Furosemide 40 MG Oral Tablet 04/10/2019 12:00:00 AM [facility] Amlodipine 5 MG Oral Tablet 04/10/2019 12:00:00 AM [facility] Allopurinol 100 MG Oral Tablet 04/10/2019 12:00:00 AM [facility] insulin lispro 100 UNIT/ML SC injection MEDIUM DOSE EA TING INSULIN patients 04/09/2019 12:00:00 AM [facility], LONGTERM 8.6 MG Oral Tablet 04/09/2019 12:00:00 AM [facility] Pravastatin Sodium 40 MG Oral Tablet 04/09/2019 12:00:00 AM [facility] Insulin Glargine 100 UNT/ML Injectable Solution 04/09/2019 12:00:00 AM [facility] carvedilol 12.5 MG Oral Tablet 04/09/2019 12:00:00 AM [facility] albuterol (PROVENTIL HFA;VENTOLIN HFA) inhaler 2 puff 04/05/2019 11:50:41 PM [facility] ospital dextrose 50 % IV solution 25 mL 04/05/2019 11:46:06 PM [facility] Glucagon 1 MG Injection 04/05/2019 11:46:06 PM [facility] Glucose 0.4 MG/MG Oral Gel 04/05/2019 11:46:06 PM [facility] Spironolactone 50 MG Oral Tablet 04/16/2016 12:00:00 AM [facility] Acetaminophen 500 MG Oral Tablet [facility] Inqovi 35-100 MG Oral Tablet (Decitabine-Cedazuridine) [facility] Acyclovir 400 MG Oral Tablet [facility] Basaglar KwikPen 100 UNIT/ML Subcutaneou s Solution Pen-injector (insulin glargine) [facility] Furosemide 40 MG Oral Tablet [facility] clopidogrel 75 MG Oral Tablet [facility] albuterol (PROVENTIL HFA;VENTOLIN HFA) 108 (90 BASE) MCG/ACT inhale r [facility] Hydralazine Hydrochloride 100 MG Oral Tablet [facility] Aspirin 81 MG Delayed Release Oral Tablet [facility]
[2020-04-10] MEDS ORDERED: POTASSIUM CHLORIDE 10 MEQ SR TABLET PO ONE ×2 (03:45→04:45)
[2020-04-10] MEDS ORDERED: NS 1,000 ML IV SCH ×2 (03:45→04:30)
--- NOTE | 2020-04-10 03:57 | HPEPDOC ---
[facility] Medical History & Physical Date of Admission Apr 10, 2020 Date of Service: Apr 10, 2020 Primary Care Physician: DEENA FERRARA MD Attending Physician: BASHIR NEWELL MD History and Physical CHIEF COMPLAINT: Pre-syncope HISTORY OF PRESENT ILLNESS: Patient is year-old female, past medical history most significant for CML (currently receiving chemotherapy), who was brought to the emergency department via EMS 04/09/20 after sustaining a fall at home walking to the commode. Patient reports that she "misstep", resulting in a slow fall toward the ground. Patient denies any loss of consciousness or vision changes and reports that she did not hit her head. She denies any resulting pain or injury. Due to patient's chemotherapy, patient does carry a history of chronic pancytopenia for which she receives platelet and RBC infusion twice weekly. Patient reports that she had her last transfusion yesterday of platelets. In the emergency department, patient was found to have a temperature 100.1, pulse 100, respiratory rate of 20, blood pressure of 169/74 and oxygen saturation 98% room air. CBC was significant for a pancytopenia with platelet count of 24, which appears to be patient's baseline. Sodium of 145, hypokalemic with a potassium of 3.2. BUN/Cr of 35/1.61, baseline creatinine of 1.6. PT/INR 17.7/1.42. CT imaging of the patient's head was negative. Chest x-ray does show mild bilateral effusions. Hospitalist team was contacted to admit the patient for further observation and management. 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 Tobacco use: Patient reports that she continues to smoke approximately 3 cigarettes per day, is a significant improvement from her previous habit of one pack per day. ETOH: Denies drinking alcohol Illicit drug use: Denies any illicit or IV drug use FAMILY HISTORY: Father: , 69, OR and diabetes Mother: , 62, throat, thyroid, uterine cancer Siblings: Alive, lupus, hypertension, diabetes, CAD ALLERGIES: Losartan REVIEW OF SYSTEMS: CONSTITUTIONAL: Patient reports generalized chronic fatigue. She denies any recent subjective fevers or chills, no changes in her weight, no difficulty sleeping HEENT: Denies any headaches, vision changes, hearing changes, no sores/lesions, difficulty swallowing CARDIOVASCULAR: Denies any chest pain, palpitations, inappropriate tachycardia RESPIRATORY: Denies any shortness of breath or difficulty breathing, no new or increasing cough denies orthopnea or PAD. GASTROINTESTINAL: Denies any nausea or vomiting, no bellyaches or belly pains, no constipation. Patient does report intermittent diarrhea. No black tarry stools or bright red blood per rectum. GENITOURINARY: Denies hematuria. SKIN: Reports diffuse petechiae over the trunk and upper extremities, unchanged and baseline. MUSCULOSKELETAL: Denies any muscle aches or pains. NEUROLOGICAL: Denies any numbness or tingling in her hands or arms feet or legs, no weakness of her extremities, denies any difficulty with her memory. HOME MEDICATIONS: Please see below. PHYSICAL EXAMINATION: VITAL SIGNS: Please see below GENERAL APPEARANCE: Patient interviewed and examined in the emergency department. Patient was found to be lying in bed comfortably in no acute distress. Patient does appear quite pale. Patient was able to participate in the examination and was an accurate historian. HEENT: Normocephalic, atraumatic, EOMI, mucous membranes dry CARDIOVASCULAR: Regular rate and rhythm without any S3 or S4, no appreciable murmur LUNGS: Basilar crackles are appreciated, fair aeration throughout ABDOMEN: Obese, soft, nontender, nondistended, no peritoneal signs EXTREMITIES: 1-2+ pitting edema in the lower extremities bilaterally, chronic, evidence of chronic venous stasis also apparent, no tenderness to palpation NEUROLOGICAL: Awake, alert, oriented. No dysarthria or dysphagia. Patient is able to move her upper and lower extremities equally bilaterally. PSYCHIATRIC: Mood and affect are appropriate given patient's current medical condition LABORATORY DATA: See below. IMAGING: Chest x-ray (04/09/20): Cardiac enlargement, trace bilateral pleural effusions. Head CT (04/09/20): Mild involutional changes, no acute intracranial abnormality MICROBIOLOGY: Please see below. ASSESSMENT: Patient is a 65-year-old female with a medical history most significant for diabetes, chronic kidney disease, HFpEF s/p AICD, CAD s/p stenting x4 and CML undergoing chemotherapy. Patient presented to the emergency department this evening after sustaining a fall at home. Patient reports that she was moving from her bed to her commode and "misstep ". She denies any loss of consciousness she did not hit her head, no vision changes. In the emergency department, head CT was negative and chest x-ray demonstrated chronic changes. CBC was significant for pancytopenia which is chronic, in the setting of hypokalemia. She was also noted to be borderline tachycardic with a elevated temperature. This may or may not be related to patient's recent transfusion. Tachycardia may be secondary to dehydration. Given patient's history, she will be admitted to the hospital for further monitoring. Patient be placed on telemetry. She will receive IV fluid rehydration and oral potassium replacement. Assuming patient's hospital course remains uneventful, anticipate discharge within 24 hours. Of note, patient is scheduled to have cataract surgery in [place] on 04/11/20. PLAN: #Presyncope, weakness -Unclear as to the etiology of patient's fall. She is adamant that she did not lose consciousness or "collapse". She is is confident that she "miss-stepped" on her way to the commode. Given her strong cytopenia, patient had it prudent to present to the hospital for evaluation. -Patient will be admitted to the hospital for observation. Telemetry monitoring, IVF and orthostats. Close monitoring. -Clinically, patient does appear dry, I am hopeful that she will rebound with hydration. -As mentioned in HPI, patient was also noted to be hypokalemic, may have contributed to patient's presenting episode. -Patient does have known high lateral carotid artery stenosis of 50-69% as determined by ultrasound in 2017, consider repeat carotid ultrasound as an outpatient #Hypokalemia -PO supplementation -Repeating monitoring potassium and magnesium in a.m. #CMML/MDS -Patient follows with Dr. Carter. Currently undergoing chemotherapy with resulting pancytopenia. -She currently receiving transfusions of both red cells and platelets twice weekly. Last transfusion was yesterday, which time patient received 2 units of platelets. -Patient is also on antiviral and antifungal prophylaxis. #Thrombocytopenia/anemia -Secondary to chemotherapy as mentioned above. -Mechanical DVT prophylaxis #CAD/Stent -Patient to remain off dual antiplatelet therapy given thrombocytopenia -Continue patient's statin #HTN -Norvasc, carvediolol, isosorbide/mononitrate #Ischemic cardiomyopathy, HFpEF -Patient does follow with 's office. -Status post AICD. Echo performed in shows a LVEF of 60% in 07/05 #Insulin dependent diabetes mellitus -Sliding-scale insulin -Insisting can't diet #CKD -Follows with nephrology -Creatinine currently at baseline #HLD -Pravastatin DVT PROPHYLAXIS: Teds and sequentials CODE STATUS: DNR/DNI DISPOSITION: Anticipate discharge tomorrow assuming patient improvement. Patient reports that she does have a previously scheduled cataract surgery in [place] on 04/11/20. Vital Signs Vital Signs Date Time Temp Pulse Resp B/P (MAP) Pulse Ox O2 Delivery O2 Flow Rate FiO2 04/09/20 23:28 91 18 96 Room Air 04/09/20 23:15 165/74 (104) 04/09/20 22:16 100.1 Laboratory Data Labs 24H Laboratory Tests 2 04/09/20 23:42: Immature Granulocyte % (Auto) , Neutrophils (%) (Auto) , Neutrophils # (Auto) , Nucleated Red Blood Cells % (auto) 4.0H, Prothrombin Time 17.7H, Prothromb Time International Ratio 1.42, Activated Partial Thromboplast Time 50.0H, Anion Gap 9, Glomerular Filtration Rate 34.2L, Lactic Acid Level 1.1, Calcium Level 8.3L, Magnesium Level 2.2, Total Creatine Kinase 44, Creatine Kinase MB < 1.0, Creatine Kinase MB Relative Index 2.27, Troponin I 0.10, Thyroid Stimulating Hormone (TSH) 4.070H, Free Thyroxine 1.15 04/10/20 01:13: Coronavirus (COVID-19)(PCR) NEGATIVE, Influenza Type A (RT-PCR) NEGATIVE, Influenza Type B (RT-PCR) NEGATIVE, Respiratory Syncytial Virus (PCR) NEGATIVE CBC/BMP Laboratory Tests 04/09/20 23:42 Home Medications Scheduled Acyclovir (Acyclovir) 200 Mg Capsule, 400 MG PO TID Amlodipine Besylate (Amlodipine Besylate) 5 Mg Tablet, 5 MG PO DAILY Carvedilol (Carvedilol) 12.5 Mg Tab, 12.5 MG PO BID Cholecalciferol (Vitamin D3) (Vitamin D3) 1,000 Unit Tablet, 1,000 UNITS PO DAILY Eltrombopag Olamine (Promacta) 25 Mg Tablet, 25 MG PO DAILY Fluconazole (Fluconazole) 200 Mg Tablet, 200 MG PO DAILY Insulin Glargine,Hum.rec.anlog (Basaglar Kwikpen U-100) 100 Unit/1 Ml Insuln.pen, 30 UNIT SC QHS Insulin Human Lispro (Humalog) 100 Unit/1 Ml Vial, 1 DOSE SC AC SLIDING SCALE Isosorbide Mononitrate (Isosorbide Mononitrate ER) 60 Mg Tab, 60 MG PO DAILY Pantoprazole Sodium (Pantoprazole Sodium) 40 Mg Tablet.dr, 40 MG PO DAILY Pravastatin Sodium (Pravastatin Sodium) 40 Mg Tablet, 40 MG PO DAILY Spironolactone (Spironolactone) 100 Mg Tablet, 100 MG PO DAILY Umeclidinium [place] (Incruse Ellipta) 62.5 Mcg Blst.w.dev, 1 PUFF INH DAILY Scheduled PRN Acetaminophen (Acetaminophen) 500 Mg Tablet, 1,000 MG PO Q6H PRN for PAIN Lidocaine (Lidocaine) 5% Adh..patch, 1 PATCH TOP DAILY PRN for PAIN USES ON BACK Allergies Coded Allergies: losartan (Verified Allergy, Severe, throat swelling, 06/28/18) A-FIB/CHADSVASC A-FIB History Current/History of A-Fib/PAF?: No Current PO Anticoag Therapy: No GME ATTESTATION GME ATTESTATION My faculty preceptor for this patient encounter was physically present during the encounter and was fully available. All aspects of the patient interview, examination, medical decision making process, and medical care plan development were reviewed and approved by the faculty preceptor. The faculty preceptor is aware and concurs with the plan as stated in the body of this note and will attest to such by his/her cosignature. 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 She denied having dizziness, chest pain, palpitations, ringing in the ears, sensation of the ground moving beneath her, vomiting or diarrhea prior to the fall. She didn't have dinner last night because she was being evaluated in the ER. PE: mucus membranes dry / ecchymosis on arms / generalized pallor #Presyncope / weakness & fall Possibly due to hypokalemia vs deconditioning Plan: orthostats / telemetry / IVF / if the patient remains weak despite normalization of her K, the weakness may be due to deconditioning and day time team may consider referral for out pt physical therapy # Hypokalemia Possible causes include decrease potassium intake in the setting of insulin use vs renal losses due to hypomagnesemia vs hyper-hematopoesis if her CMML has transformed to AML (which mentioned was a concern based on the patietn's bone marrow biopsy results which showed 9% circulating blasts) She is on a K sparing diuretic. Plan; gave the patient two bananas & ordered 40meq of KCL & f/u Mag / f/u [facility] and [facility] to calculate transtubular potassium gradient (if TTKG is <3 hypokalemia is due to extrarenal causes / if TTKG is >3 hypokalemia is due to renal potassium losses / if TTKG is unequivocal the day time team may consider calling to discuss the possibility of the patient having AML) #SIRS Tachycardia is likely due to dehydration & the leukopenia is chronic. 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 She saw yesterday, her Plt # was 9 and the patient was given 2 units of platelets Plan: Per 's office note yesterday she offered to refer the patient to an academic center or transition to palliative/hospice but the patient declined / per the plan is to c/w Filgrastim, EPO & Eltrombopag to improve the cell counts and c/w prophylactic antifungal, antiviral and antibacterial medications bc she is at risk for various infections because of the neutropenia / if she has a fever >100.4 that sustained for 15min she will meet the criteria to diagnose her with neutropenic fever and we will start the appropriate work-up and medications #CKD 3/4 Cr at baseline Dispo: possibly dc in the AM, the patient reports that she has cataract surgery scheduled at [facility] in the morning OLVIN DELACRUZ DO Apr 10, 2020 03:57 BASHIR NEWELL MD Apr 10, 2020 04:21
[2020-04-10] MEDS ORDERED: LIDOCAINE 5% (LIDODERM) PATCH TOP PRN (04:00)
[2020-04-10] MEDS ORDERED: MAALOX 30 ML SUSP *UDC PO PRN (04:00)
[2020-04-10] MEDS ORDERED: MOM 30ML SUSPENSION UDC PO PRN (04:00)
[2020-04-10] MEDS ORDERED: ACETAMINOPHEN 500 MG TAB PO PRN (04:00)
--- OUTSIDE RECORDS SUMMARY | 2020-04-10 04:12 | CCD ---
Author Author [facility] Organization [facility] Address Unknown Phone Unavailable Care Team Providers Care Third Cook Name Role Phone Pedro Pablo Reece MD [...] Unavailable Unavailable Doris WARD MD Unavailable Unavailable Doirs WARD MD Unavailable Unavailable Doris WARD MD [...] L Isi PA Unavailable Unavailable Gaviria, L Sii PA Unavailable Unavailable Gaviria, L Isi PA [...] Unavailable Koloms, Dara MD Unavailable Unavailable Koloms, Adra MD Unavailable Unavailable Koloms, Dara MD Unavailable [...] Unavailable Unavailable DeepaliMatty jordan MD Unavailable Unavailable EdepaliMatty MD Unavailable Unavailable DeepaliMatty MD Unavailable Unavailable [...] is protected by Article 27-F of the [facility] Public Health law. If you continue you may have access to information: Regarding HIV / AIDS; Provided by facilities licensed or operated by the [facility] Office of Mental Health; or Provided by the [facility] Office for People With Developmental Disabilities. If such information is present, then the following [facility] mandated warning applies: This information has been [...] law may result in a fine or snf sentence or both. A general authorization for the release of medical or other information is NOT sufficient authorization for further disc losure. Allergies and Adverse Reactions Type Description Substance Reaction Status Data Source(s ) Drug allergy Losartan Potassium Losartan throat swelling Active eCW1 ([facility]) DRUG INGREDI LOSARTAN LOSARTAN Anaphylaxis High [facility] Family History Family Member Name Family Member Gender Family Member Status Date o f Status Description Data Source(s) Unknown Unknown Problem MEDENT ([facility]) Encounters Encounter Providers Location Date Indications Data Source(s ) Outpatient Attender: Dara Hardy MDConsultant: LATOYA Pires MD 04/09/2020 08:49:46 AM [facility] Outpatient Attender: Dara Hardy MDConsultant: LATOYA Pires MD 04/09/2020 08:47:00 AM [facility] [place] [address] [facility] [place] [address] 03/26/2020 12:00:00 AM EST eCW1 ([facility]) Unknown [address] [facility] [place] [address] 03/20/2020 12:00:00 AM EST eCW1 ([facility]) [place] [address] [facility] [address] 03/09/2020 12:00:00 AM EST eCW1 ([facility]) Unknown [address] [facility] [place] [address] 03/07/2020 12:00:00 AM EST eCW1 ([facility]) Inpatient Attender: Lisa Velez MDA ttender: RAMY WARD MDAdmitter: Lisa Velez MDReferrer: RAMY WARD MD [id number] 03/06/2020 12:00 :00 AM EST - 03/18/2020 12:00:00 AM EST Chronic myelomonocytic leukemia not havi ng achieved remission [facility] 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 Outpatient [email or web address] 02/24/2020 04:56:28 PM EST [facility] Outpatient [email or web address] 02/23/2020 12:00:00 AM EST [facility] [place] [address] [facility] [address] 02/20/2020 12:00:00 AM EST eCW1 ([facility]) [place]patient [address] [facility] [place] [address] 12/23/2019 12:00:00 AM EST eCW1 ([facility]) Outpatient Attender: Isi RODRIGUES-SJPMarielMAX 05/2019 12:00:00 AM EST - 12/21/2019 01:54:51 PM EST [facility] Outpatient RAVI-SJPMarielMAX 11/03/2019 09:39 :53 AM EDT - 11/03/2019 10:33:53 AM EDT [facility] Unknown [address] [facility] [address] 07/28/2019 12:00:00 AM EDT eCW1 ([facility]) [facility] GME Resident [address] [place] [phone] 07/22/2019 12:00:00 AM EDT eCW1 ([facility]) Unknown [address] [place] [address] 07/18/2019 12:00:00 AM EDT eCW1 ([facility]) [address] [address] 07/14/2019 12:00:00 AM EDT eCW1 ([facility]) Outpatient 07/06/2019 05:22:00 AM EDT [facility] [address] [facility] [address] 06/29/2019 12:00:00 AM EDT eCW1 ([facility]) [facility] [address] [facility] [place] [address] 06/29/2019 12:00:00 AM EDT eCW1 ([facility]) [facility] [address] [facility] [place] [address] 06/27/2019 12:00:00 AM EDT eCW1 ([facility]) [facility] GME Resident [address] [place] [phone] 06/24/2019 12:00:00 AM EDT eCW1 ([facility]) Outpatient 06/22/2019 05:30:00 AM EDT [facility] [address] [address] 06/10/2019 12:00:00 AM EDT eCW1 ([facility]) [address] [address] 06/06/2019 12:00:00 AM EDT eCW1 ([facility]) [address] [address] 06/03/2019 12:00:00 AM EDT [facility]CW1 [facility] Outpatient [email or web address] 06/02/2019 11:09:32 AM EDT [facility] [address] [place] [address], [place] [address] 06/02/2019 12:00:00 AM EDT eCW1 ([facility]) [address] [address] 05/30/2019 12:00:00 AM EDT eCW1 ([facility]) [facility] [address] [place] [phone] 05/27/2019 12:00:00 AM EDT eCW1 [facility] [address] [place] [phone] 05/16/2019 12:00:00 AM EDT eCW1 ([facility]) [address] [address] 05/12/2019 12:00:00 AM EDT eCW1 ([facility]) [address] [place] [address] 05/12/2019 12:00:00 AM EDT eCW1 ([facility]) [address] [place] [address] 05/12/2019 12:00:00 AM EDT eCW1 ([facility]) [address] [place] [address] 05/12/2019 12:00:00 AM EDT eCW1 ([facility]) [facility] [place] [address] [facility] [address] 05/09/2019 12:00:00 AM EDT eCW1 ([facility]) Outpatient 05/03/2019 11:18:00 AM EDT [facility] Outpatient 04/21/2019 01:58:00 PM EST [facility] Outpatient Attender: Zafar Diaz MD 04/19/2019 12:00:0 0 AM EST [facility] Outpatient 04/15/2019 06:06:00 AM EST [facility] [place] [address] [facility] [facility] [address] 04/15/2019 12:00:00 AM EST eCW1 ([facility]) [facility] GME Resident [address] [place] [address] 04/15/2019 12:00:00 AM EST eCW1 ([facility]) Outpatient 04/12/2019 10:01:00 AM EST [facility] Outpatient Attender: Zafar Diaz MD Admitter: Zafar Diaz MDReferrer: PROVIDER SYSTEM IN 04/05/2019 12:00:00 AM EST - 04/09/2019 12:00:00 AM EST acute leukemia [facility] acute leukemia Patient discharged. Outpatient Attender: Pedro Pablo George DAdmitter: Pedro Pablo Reece MDReferrer: Pedro Pablo Reece MD 04/03/2019 12:00:00 AM EST - 04/04/2019 12:00:00 AM EST Leukoerythroblastosis Rule out [facility] Leukoerythroblastosis Rule out Leukemia Outpatient [email or web address] 03/31/2019 09:24 :48 AM EST - 03/31/2019 09:45:58 AM EST [facility] Outpatient 03/30/2019 03:47:00 PM EST [facility] [place] [address] [facility] [address] 03/28/2019 12:00:00 AM EST eCW1 ([facility]) [facility] GME Resident [address] [place] [address] 03/25/2019 12:00:00 AM EST eCW1 ([facility]) [facility] Shandra Kang[address] [facility] [address] 03/18/2019 12:00:00 AM EST eCW1 ([facility]) [facility] Shandra Kang[address] [facility] [address] 02/17/2019 12:00:00 AM EST eCW1 ([facility]) Immunizations Vaccine Date Status Description Data Source(s) [...] active Sennosides-Docusate Sodium 8.6-50 MG eCW 1 ([facility]) Vitamin D-3 25 MCG (1000 UT) Vitamin D-3 25 MCG (1000 UT) 12:00:00 AM EST 1.0 {capsule} active Vitamin D- 3 25 MCG (1000 UT) eCW1 ([facility]) Acyclovir 200 MG Oral Capsule Acyclovir 200 MG 03/25/2020 12:00:00 AM EST 1.0 {capsule} active Acyclovir 200 MG eCW1 ([facility]) eltrombopag 25 MG Oral Tablet [Promacta] Promacta 25 MG Prom acta 25 MG 03/25/2020 12:00:00 AM EST active Promacta 25 MG eCW1 ([facility]) Levofloxacin 500 MG Oral Tablet Levofloxacin 500 MG 03/25/2020 1 2:00:00 AM EST 1.0 {tablet} active Levofloxaci n 500 MG eCW1 ([facility]) Prochlorperazine 10 MG Oral Tablet Prochlorperazine Ma leate 10 MG Prochlorperazine Maleate 10 MG 03/25/2020 12:00:00 AM EST 1. 0 {tablet_as_needed} active Prochlorperaz ine Maleate 10 MG eCW1 ([facility]) Umeclidinium [place] 62.5 MCG/INH UNK 03/25/2020 12:00:00 AM EST 1.0 {puff} active Umeclidinium [place] 62.5 MCG/INH eCW1 ([facility]) Insulin Lispro 100 UNT/ML Injectable Solution [Humalog ] Humalog 100 UNIT/ML Humalog 100 UNIT/ML 03/25/2020 12:00:00 AM EST active Humalog 100 UNIT/ML eCW1 ([facility]) Fluconazole 200 MG Oral Tablet Fluconazole 200 MG 03/25/2020 12:00: 00 AM EST 1.0 {tablet} active Fluconazole 200 MG eCW1 ([facility]) pantoprazole 40 MG Delayed Release Oral Tablet Pantopr azole Sodium 40 MG Pantoprazole Sodium 40 MG 03/25/2020 12:00:00 AM EST 1.0 {tablet} active Pantoprazole Sodium 40 MG eCW1 ( [facility]) Acetaminophen 500 MG Oral Tablet Acetaminophen 500 MG 2020 12:00:00 AM EST 2.0 {tablet_as_needed} active A cetaminophen 500 MG eCW1 ([facility]) Acetaminophen 325 MG Oral Tablet acetaminophen (TYLENO L) tablet 650 mg acetaminophen (TYLENOL) tablet 650 mg 03/18/2020 01:00:00 PM EST 65 0 mg Oral completed 650 mg, Oral, O nce, 03/18/20 at 1300, For 1 dose
Maximum daily dose of acetaminophen is 3,000 mg from all sources in 24 hours.
[facility] Medication administered onsite Diphenhydramine Hydrochloride 25 MG Oral Capsule diphenhydrAMINE (BENADRYL) capsule 25 mg diphenhydrAMINE (BENADRYL) capsule 25 mg 03/18/2020 01 :00:00 PM EST 25 mg Oral completed 25 mg, Oral, Once, 03/18/20 at 1300, For 1 dose [facility] Medication administered onsite carvedilol 3.125 MG Oral Tablet carvedilol (COREG) tab let 6.25 mg carvedilol (COREG) tablet 6.25 mg 03/18/2020 10:45:00 AM EST 6.25 mg Oral active 6.25 mg, Oral, Once, 03/18/20 at 1045, For 1 dose [facility] Medication administered onsite carvedilol 12.5 MG Oral Tablet Carvedilol 12.5 MG Oral Tablet (COREG) Carvedilol 12.5 MG Oral Tablet (COREG) 03/18/2020 12:00:00 AM EST 6.25 mg Oral active Take 0.5 tablets by mouth Two Ti mes Daily [facility] Levofloxacin 500 MG Oral Tablet levoFLOXacin 500 MG Or al Tablet (LEVAQUIN) levoFLOXacin 500 MG Oral Tablet (LEVAQUIN) 03/18/2020 12:00:00 AM EST 500 mg Oral active Take 1 tablet by melissa th daily for 7 days [facility] Levofloxacin 500 MG Oral Tablet levoFLOXacin (LEVAQUIN ) tablet 500 mg levoFLOXacin (LEVAQUIN) tablet 500 mg 03/17/2020 09:15:00 AM EST 50 0 mg Oral active 500 mg, Oral, E very 48 hours, First dose (after last reorder) on 03/17/20 at 0915, For 5 days
Administer 2 hours before or 4 hours after oral magnesium, calcium, iron, and sucralfate.
Discouraged Uses: Treatment of UTI
[facility] Medication administered onsite vancomycin (VANCOCIN) 1250 mg in NaCl 0.9 % 261 mL (premix) 03/17/2020 01:45:00 AM EST 1250 mg Intravenous aborted 1,250 mg, Intravenous, Administer over 90 Minutes, Every 24 hours, First dose (after last reorder) on 03/17/20 at 0145, For 3 days [facility] Medication administered onsite Piperacillin 3000 MG / tazobactam 375 MG Injection piperacillin-tazobactam (ZOSYN) IVPB 3.375 g (premix) piperacillin-tazobactam (ZOSYN) IVPB 3.3 75 g (premix) 03/17/2020 01:15:00 AM EST 3.375 g Intravenous abo rted 3.375 g, Intravenous, Administer over 4 Hours, Every 8 hours, First dose on Thu03/17/20 at 0115, For 7 days
This specific formulation of piperacillin- tazobactam is compatible with Lactated Ringers.
[facility] Medication administered onsite Levofloxacin 500 MG Oral Tablet levoFLOXacin (LEVAQUIN ) tablet 500 mg levoFLOXacin (LEVAQUIN) tablet 500 mg 03/16/2020 09:00:00 AM EST 50 0 mg Oral aborted 500 mg, Oral, D aily Standard, First dose on Thu03/16/20 at 0900, For 10 days
Administer 2 hours before or 4 hours after oral magnesium, calcium, iron, and sucralfate.
Discouraged Uses: Treatment of UTI
[facility] Medication administered onsite Sandraaglmarina KwikPen 100 UNIT/ML Subcutaneou s Solution Pen-injector (insulin glargine) 7808-4939-26 03/16/2020 12:00:00 AM EST 10 U Subcutaneous active Inject 10 Units into the skin ni [facility] maalox/lidocaine/diphenhydrAMINE 1:1:1 SWISH & SWAL oral kourtney pension 03/16/2020 12:00:00 AM EST 5 mL Swish & Spit active Swish and spit 5 mLs Four times daily before meals & bedtime as needed (mucositis) for up to 10 daysPharmacy compound: Maalox, lidocaine viscous 2 %, Benadryl 12.5 mg/5 mL [facility] pantoprazole 40 MG Delayed Release Oral Tablet Pantoprazole Sodium 40 MG Oral Tablet Delayed Release (PROTONIX) Pantoprazole Sodium 40 MG Oral Tablet De layed Release (PROTONIX) 03/16/2020 12:00:00 AM EST 40 mg Oral active Take 1 tablet by mouth daily [facility] Lidocaine 5 % External Patch (LIDODERM) 8668-0418-42 03/16/19 12:00:00 AM EST 1 {patch} Transdermal active Place 1 pa tch onto the skin daily 12 hours on 12 hours off [facility] Fluconazole 200 MG Oral Tablet Fluconazole 200 MG Oral Tablet (DIFLUCAN) Fluconazole 200 MG Oral Tablet (DIFLUCAN) 03/16/2020 12:00:00 AM EST 200 mg Oral active Take 1 tablet by melissa th daily [facility] Insulin Glargine 100 UNT/ML Injectable S olution [...] glucose more than 400 mg/dL: notify provider
[facility] Medication administered onsite eltrombopag 25 MG Oral Tablet Eltrombopag Olamine 25 M G Oral Tablet (PROMACTA) Eltrombopag Olamine 25 MG Oral Tablet (PROMACTA) 03/15/2020 12:00:00 AM EST 50 mg Oral active Take 2 tab lets by mouth daily Administer on an empty stomach, 1 hour before or 2 hours after a meal. [facility] maalox/lidocaine/diphenhydrAMINE 1:1:1 SWISH & SWAL oral kourtney pension 03/15/2020 12:00:00 AM EST 5 mL Swish & Spit aborted Swish and spit 5 mLs Four times daily before meals & bedtime as needed (mucositis) for up to 10 daysPharmacy compound: Maalox, lidocaine viscous 2 %, Benadryl 12.5 mg/5 mL [facility] Acyclovir 200 MG Oral Capsule Acyclovir 200 MG Oral Ca psule (ZOVIRAX) Acyclovir 200 MG Oral Capsule (ZOVIRAX) 03/15/2020 12:00:00 AM EST 400 mg Ora l active Take 2 capsules by mouth Three t imes daily [facility] Tiotropium [place] Monohydrate 2.5 MCG/A CT Inhalation Aerosol Solution (SPIRIVA RESPIMAT) [id number] 03/15/2020 12:00:00 AM EST 2 {puff} Inhalation aborted Inhale 2 puffs into the lungs daily [facility] sennosides, PRISON 8.6 MG Oral Tablet Senna 8.6 MG Oral T ablet Senna 8.6 MG Oral Tablet 03/15/2020 12:00:00 AM EST 2 {tbl} Oral active Take 2 tablets by mouth nightly [facility] NaCl infusion 0.9 % [id number] 03/14/2020 08:45:00 AM EST Intravenous aborted at 100 mL/hr, Intrav enous, Continuous, Starting Thu03/14/20 at 0845, For 30 days [facility] Medication administered onsite potassium chloride (K-DUR) dissolvable tablet 40 mEq [id number] 03/14/2020 03:15:00 AM EST 40 meq Oral completed 40 mEq, Oral, 2 Times Daily, First dose on Thu03/14/20 at 0315, For 1 day
May be dissolved in water for patients with a G-Tube or unable to swallow. If concern for clogging G-Tube, may contact Pharmacy to switch formulation to a powder packet.
[facility] Medication administered onsite TC-99M labeled red blood cells (ULTRATAG) 03/12/2020 11:00 :00 AM EST Intravenous completed Intravenous, Once, Thu03/12/20 at 1100, For 1 dose, Imaging Protocol [facility] Medication administered onsite sodium chloride 0.45 % 1,000 mL with sodium bicarbonate 8.4 % 75 mEq infusion 03/12/2020 09:00:00 AM EST Intravenous aborted at 100 mL/hr, Intravenous, Continuous, Starting Thu03/12/20 at 0900, For 30 days [facility] Medication administered onsite carvedilol 3.125 MG Oral Tablet carvedilol (COREG) tab let 12.5 mg carvedilol (COREG) tablet 12.5 mg 03/11/2020 09:00:00 PM EST 12.5 mg Oral aborted 12.5 mg, Oral, 2 Times Daily, First dose (after last modification) on Thu03/11/20 at 2100, For 51 doses [facility] Medication administered onsite vancomycin (VANCOCIN) 1250 mg in NaCl 0.9 % 261 mL (premix) 03/11/2020 08:00:00 PM EST 1250 mg Intravenous aborted 1,250 mg, Intravenous, at 174 mL/hr, Every 24 hours, First dose on 03/11/20 at 2000, For 3 doses
Discouraged Uses: -Treatment of C. difficile infection -Routine treatment of neutropenic fever -Non-purulent cellulitis -Community-acquired intra-abdominal infection
[facility] Medication administered onsite Diphenhydramine Hydrochloride 25 MG Oral Capsule diphenhydrAMINE (BENADRYL) capsule 25 mg diphenhydrAMINE (BENADRYL) capsule 25 mg 03/11/2020 06 :30:00 PM EST 25 mg Oral completed 25 mg, Oral, Every 6 hours PRN, transfusion, Starting 03/11/20 at 1830, For 6 days 14 hours [facility] Medication administered onsite Albuterol 0.83 MG/ML Inhalant Solution a lbuterol (PROVENTIL) nebulizer solution 2.5 mg albuterol (PROVENTIL) nebulizer solution 2.5 mg 2020 05:00:00 PM EST 2.5 mg Nebulization completed 2 .5 mg, Nebulization, Every 8 hours, First dose (after last reorder) on 03/11/20 at 1700, For 20 doses
For Adults Q8 Hours is Hospital Standard, all orders will be changed to this unless CIRSS is selected 'Yes' below.
[facility] Medication administered onsite phytonadione (VITAMIN K1) 1 mg/mL oral solution 5 mg 03/11/2020 02:30:00 PM EST 5 mg Oral completed 5 mg, Oral, Once, 03/11/20 at 1430, For 1 dose [facility] Medication administered onsite azaCITIDine (VIDAZA) 145 mg [...] completed within 1 hr of vial reconstitution.
[facility] Chronic myelomonocytic leukemia not havi ng achieved remission Medication administered onsite Ondansetron 8 MG Oral Tablet ondansetron (ZOFRAN) tabl et 8 mg ondansetron (ZOFRAN) tablet 8 mg 03/11/2020 01:00:00 PM EST 8 mg Oral completed 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 8 mg, Oral, Once, 03/11/20 at 1300, For 1 dose
Give prior to chemotherapy.
[facility] Chronic myelomonocytic leukemia not havi ng achieved remission Medication administered onsite lidocaine (LIDODERM) 5 % patch 1 patch [id number] 12:45:00 PM EST 1 {patch} Transdermal active 1 patch, T ransdermal, Daily Standard, First dose (after last modification) on 03/11/20 at 1245, For 8 doses
Apply to back12 hours on - 12 hours off
[facility] Medication administered onsite Furosemide 20 MG Oral Tablet furosemide (LASIX) tablet 40 mg furosemide (LASIX) tablet 40 mg 03/11/2020 09:30:00 AM EST 40 mg Oral abort ed 40 mg, Oral, Daily Standard, First dose on 03/11/20 at 0930, For 30 days [facility] Medication administered onsite heparin sodium, porcine 10 [...] patency and/or prn to obtain blood return.
[facility] Chronic myelomonocytic leukemia not havi ng achieved remission Medication administered onsite sodium chloride (preservative free) 0.9 % flush 10 mL [address]015- [id number] 03/11/2020 09:15:16 AM EST 10 mL Intravenous active Ch ronic myelomonocytic leukemia not having achieved remission 10 mL, Intravenous, PRN, Line Care, Starting 03/11/20 at 0915, For 30 days
Flush via port/central line/peripheral before and after each use.
[facility] Chronic myelomonocytic leukemia not havi ng achieved [...] line after NS prior to port deaccess.
[facility] Chronic myelomonocytic leukemia not havi ng achieved remission Medication administered onsite NaCl infusion 0.9 % [id number] 03/11/2020 09:15:16 AM EST Intravenous active Chronic myelomonocytic leukemia not having achieved remissio n Intravenous, PRN, Line care, Starting 03/11/20 at 0915, For 30 days
Flush with 30mL after each medication given intravenously.
[facility] Chronic myelomonocytic leukemia not havi ng achieved [...] of piperacillin-tazobactam is compatible with Lactated Ringers.
[facility] Medication administered onsite vancomycin (VANCOCIN) 1250 mg in NaCl 0.9 % 261 mL (premix) 03/10/2020 06:45:00 PM EST 1250 mg Intravenous completed 1,250 mg, Intravenous, Administer over 90 Minutes, Once, 03/10/20 at 1845, For 1 dose [facility] Medication administered onsite Acetaminophen 325 MG Oral Tablet acetaminophen (TYLENO L) tablet 650 mg acetaminophen (TYLENOL) tablet 650 mg 03/10/2020 06:15:00 PM EST 65 0 mg Oral completed 650 mg, Oral, O nce, 03/10/20 at 1815, For 1 dose
Maximum daily dose of acetaminophen is 3,000 mg from all sources in 24 hours.
[facility] Medication administered onsite Piperacillin 3000 MG / tazobactam 375 MG Injection piperacillin-tazobactam (ZOSYN) IVPB 3.375 g (premix) piperacillin-tazobactam (ZOSYN) IVPB 3.3 75 g (premix) 03/10/2020 06:15:00 PM EST 3.375 g Intravenous abo rted 3.375 g, Intravenous, Administer over 4 Hours, Every 8 hours, First dose on 03/10/20 at 1815, For 3 days
This specific formulation of piperacillin- tazobactam is compatible with Lactated Ringers.
[facility] Medication administered onsite azaCITIDine (VIDAZA) 145 mg [...] completed within 1 hr of vial reconstitution.
[facility] Chronic myelomonocytic leukemia not havi ng achieved remission Medication administered onsite Ondansetron 8 MG Oral Tablet ondansetron (ZOFRAN) tabl et 8 mg ondansetron (ZOFRAN) tablet 8 mg 03/10/2020 02:00:00 PM EST 8 mg Oral completed 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 8 mg, Oral, Once, 03/10/20 at 1400, For 1 dose
Give prior to chemotherapy.
[facility] Chronic myelomonocytic leukemia not havi ng achieved [...] patency and/or prn to obtain blood return.
[facility] Chronic myelomonocytic leukemia not havi ng achieved [...] line after NS prior to port deaccess.
[facility] Chronic myelomonocytic leukemia not havi ng achieved remission Medication administered onsite NaCl infusion 0.9 % [id number] 03/10/2020 11:13:25 AM EST Intravenous active Chronic myelomonocytic leukemia not having achieved remissio n Intravenous, PRN, Line care, Starting 03/10/20 at 1113, For 30 days
Flush with 30mL after each medication given intravenously.
[facility] Chronic myelomonocytic leukemia not havi ng achieved remission Medication administered onsite sodium chloride (preservative free) 0.9 % flush 10 mL 88529- [id number] 03/10/2020 11:13:25 AM EST 10 mL Intravenous active Ch ronic myelomonocytic leukemia not having achieved remission 10 mL, Intravenous, PRN, Line Care, Starting 03/10/20 at 1113, For 30 days
Flush via port/central line/peripheral before and after each use.
[facility] Chronic myelomonocytic leukemia not havi ng achieved remission Medication administered onsite eltrombopag 25 MG Oral Tablet eltrombopag (PROMACTA) t ablet 50 mg eltrombopag (PROMACTA) tablet 50 mg 03/09/2020 11:30:00 AM EST 50 mg Oral active 50 mg, Oral, Daily Standard, First dose on Thu03/09/20 at 1130, For 12 doses [facility] Medication administered onsite Docusate Sodium 100 MG Oral Capsule docusate sodium (C OLACE) capsule 100 mg docusate sodium (COLACE) capsule 100 mg 03/08/2020 09:00:00 PM EST 100 mg Oral active 100 mg, Oral, 2 Times Daily, First dose on Thu03/08/20 at 2100, For 30 days [facility] Medication administered onsite POLYETHYLENE GLYCOL [id number] [...] due to potential increased risk for aspiration.
[facility] Medication administered onsite Levofloxacin 250 MG Oral Tablet levoFLOXacin (LEVAQUIN ) tablet 250 mg levoFLOXacin (LEVAQUIN) tablet 250 mg 03/08/2020 09:00:00 AM EST 25 0 mg Oral aborted 250 mg, Oral, D aily Standard, First dose on Thu03/08/20 at 0900, For 10 days
Administer 2 hours before or 4 hours after oral magnesium, calcium, iron, and sucralfate.
Discouraged Uses: Treatment of UTI
[facility] Medication administered onsite Allopurinol 100 MG Oral Tablet allopurinol (ZYLOPRIM) tablet 100 mg allopurinol (ZYLOPRIM) tablet 100 mg 03/08/2020 09:00:00 AM EST 100 mg Oral active 100 mg, Oral, Daily Standard, First dose on Thu at 0900, For 30 days [facility] Medication administered onsite Diphenhydramine Hydrochloride 25 MG Oral Capsule diphenhydrAMINE (BENADRYL) capsule 25 mg diphenhydrAMINE (BENADRYL) capsule 25 mg 03/08/2020 08 :40:18 AM EST 25 mg Oral aborted 25 mg, O ral, Daily PRN, transfusion, Starting Ira 03/08/20 at 0840, For 30 days [facility] Medication administered onsite Acetaminophen 325 MG Oral Tablet acetaminophen (TYLENO L) tablet 650 mg acetaminophen (TYLENOL) tablet 650 mg 03/08/2020 08:39:40 AM EST 65 0 mg Oral active 650 mg, Oral, D aily PRN, transfusion, Starting Ira 03/08/20 at 0839, For 30 days
Maximum daily dose of acetaminophen is 3000 mg from all sources in 24 hours.
[facility] Medication administered onsite maalox/lidocaine/diphenhydrAMINE (RADIATION MIXTURE) 1 :1:1 oral suspension 5 mL 03/08/2020 08:38:26 AM EST 5 mL Swish & Spit activ e 5 mL, Swish & Spit, Before Meals & Bedtime-PRN, mucositis, Starting Ira 03/08/20 at 0838, For 30 days [facility] Medication administered onsite Acetaminophen 325 MG Oral Tablet acetaminophen (TYLENO L) tablet 650 mg acetaminophen (TYLENOL) tablet 650 mg 03/08/2020 05:30:00 AM EST 65 0 mg Oral completed 650 mg, Oral, O nce, [facility] 03/08/20 at 0530, For 1 dose
Maximum daily dose of acetaminophen is 3,000 mg from all sources in 24 hours.
[facility] Medication administered onsite sennosides, PRISON 8.6 MG Oral Tablet senna tablet 2 tablet sen na tablet 2 tablet 03/07/2020 10:00:00 PM EST 2 {tbl} Oral active 2 tablet, Oral, Nightly, First dose on Thu03/07/20 at 2200, For 30 days [facility] Medication administered onsite Diphenhydramine Hydrochloride 25 MG Oral Capsule diphenhydrAMINE (BENADRYL) capsule 25 mg diphenhydrAMINE (BENADRYL) capsule 25 mg 03/07/2020 09 :45:00 PM EST 25 mg Oral completed 25 mg, Oral, Once, Thu03/07/20 at 2145, For 1 dose [facility] Medication administered onsite Pravastatin Sodium 20 MG Oral Tablet pravastatin (PRAV ACHOL) tablet 40 mg pravastatin (PRAVACHOL) tablet 40 mg 03/07/2020 09:00:00 PM EST 40 mg Oral active 40 mg, Oral, Nai ry evening, First dose on Thu03/07/20 at 2100, For 30 days [facility] Medication administered onsite Acetaminophen 325 MG Oral Tablet acetaminophen (TYLENO L) tablet 650 mg acetaminophen (TYLENOL) tablet 650 mg 03/07/2020 08:30:00 PM EST 65 0 mg Oral completed 650 mg, Oral, O nce, Thu03/07/20 at 2030, For 1 dose
Maximum daily dose of acetaminophen is 3,000 mg from all sources in 24 hours.
[facility] Medication administered onsite Acetaminophen 325 MG Oral [...] mg from all sources in 24 hours.
[facility] Medication administered onsite lidocaine (XYLOCAINE) 2 % injection 10 mL [id number] 03/07/2020 11:45:00 AM EST 10 mL Infiltration completed 1 0 mL, Infiltration, Once, Thu03/07/20 at 1145, For 1 dose [facility] Medication administered onsite Acyclovir 200 MG Oral Capsule acyclovir (ZOVIRAX) caps ule 400 mg acyclovir (ZOVIRAX) capsule 400 mg 03/07/2020 09:00:00 AM EST 400 mg Oral active 400 mg, Oral, Three Times Daily Standar d, First dose on Thu03/07/20 at 0900, For 54 doses [facility] Medication administered onsite Amlodipine 5 MG Oral Tablet amlodipine (NORVASC) table t 5 mg amlodipine (NORVASC) tablet 5 mg 03/07/2020 09:00:00 AM EST 5 mg Oral active 5 mg, Oral, Daily Standard, First dose on Thu03/07/20 at 0900, For 30 days
Check vital signs before administering
[facility] Medication administered onsite Fluconazole 200 MG Oral Tablet fluconazole (DIFLUCAN) tablet 200 mg fluconazole (DIFLUCAN) tablet 200 mg 03/07/2020 09:00:00 AM EST 200 mg Oral active 200 mg, Oral, Daily Standard, First dose on Thu at 0900, For 18 doses [facility] Medication administered onsite Spironolactone 100 MG Oral Tablet spironolactone (LOVELY CTONE) tablet 100 mg spironolactone (ALDACTONE) tablet 100 mg 03/07/2020 09:00:00 AM EST 100 mg Oral active 100 mg, Oral, Daily Standard, First dose on Thu03/07/20 at 0900, For 30 days [facility] Medication administered onsite carvedilol 3.125 MG Oral Tablet carvedilol (COREG) tab let 12.5 mg carvedilol (COREG) tablet 12.5 mg 03/07/2020 09:00:00 AM EST 12.5 mg Oral aborted 12.5 mg, Oral, 2 Times Daily, First dose on Thu 1 at 0900, For 30 days [facility] Medication administered onsite 24 HR Isosorbide Mononitrate 30 MG Exten ded Release Oral Tablet isosorbide mononitrate (IMDUR) 24 hr tablet 60 mg isosorbide mononitrate (IMDUR) 24 hr tablet 60 mg 03/07/2020 09:00:00 AM EST 60 mg Oral activ e 60 mg, Oral, Daily Standard, First dose on Thu03/07/20 at 0900, For 30 days [facility] Medication administered onsite tiotropium (SPIRIVA RESPIMAT) inhalation spray 2 puff [id number] 03/07/2020 09:00:00 AM EST 2 {puff} Inhalation active 2 pu ff, Inhalation, Daily Standard, First dose on Thu03/07/20 at 0900, For 30 days [facility] Medication administered onsite Albuterol 0.83 MG/ML Inhalant [...] this unless CRISS is selected 'Yes' below.
[facility] Medication administered onsite insulin lispro (HumaLOG) injection LOW DOSE EATING INS ULIN patients 1-8 Units [id number] 03/07/2020 08:00:00 AM EST U Subcutaneous active 1-8 Units, Subcutaneous, Three Times Daily-With Meals, First dose on Thu03/07/20 at 0800, For 30 days
Nursing MUST open the 'SQ Insulin Dosing Charts' Sidebar Report, or, the Patient Summary or Summary Report within the ED.
[facility] Medication administered onsite Levofloxacin 500 MG Oral [...] and sucralfate.
Discouraged Uses: Treatment of UTI
[facility] Medication administered onsite pantoprazole 40 MG Delayed Release Oral Tablet pantoprazole (PROTONIX) EC tablet 40 mg pantoprazole (PROTONIX) EC tablet 40 mg 03/07/2020 12:00:[address] 40 mg Oral active 40 mg, Ora l, Daily Standard, First dose on Thu03/07/20 at 0000, For 30 days
Do not crush or chew
[facility] Medication administered onsite Prochlorperazine 5 MG/ML Injectable Solu tion prochlorperazine (COMPAZINE) injection 5 mg prochlorperazine (COMPAZINE) injection 5 mg 03/06/2020 11:53:38 PM EST 5 mg Intravenous active 5 mg , Intravenous, Every 6 hours PRN, Nausea, Vomiting, Starting Thu03/06/20 at 2353, For 30 days
For IV use: Prepare in 50 mL NS and infuse over 15 minutes.
[facility] Medication administered onsite NaCl infusion 0.9 % [id number] 03/06/2020 11:45:00 PM EST Intravenous aborted at 100 mL/hr, Intrav enous, Continuous, Starting Thu03/06/20 at 2345, For 135 hours [facility] Medication administered onsite Insulin Glargine 100 UNT/ML [...] glucose more than 400 mg/dL: notify provider
[facility] Medication administered onsite Glucose 0.417 MG/MG Oral Gel glucose (GLUTOSE) 40 % or al gel 15 g glucose (GLUTOSE) 40 % oral gel 15 g 03/06/2020 10:54:02 PM EST 15 g Oral active 15 g, Oral, PRN, Low blood s ugar, for gluose 55-69 mg/dl and able to take PO, Starting Thu03/06/20 at 2254, For 30 days [facility] Medication administered onsite dextrose 50 % IV solution 25 mL [id number] 03/06/2020 10:54:[address] 25 mL Intravenous active 25 mL, Intrav enous, PRN, Other, blood glucose <55, Starting Thu03/06/20 at 2254, For 30 days
Not for midline administration.
[facility] Medication administered onsite Glucagon 1 MG Injection glucagon (human recombinant) ( GLUCAGEN) injection 1 mg glucagon (human recombinant) (GLUCAGEN) injection 1 mg 03/06/2020 10:54:02 PM EST 1 mg Intramuscular active 1 mg, Intramuscular, PRN, for glucose <55 without IV access, Starting Thu03/06/20 at 2254, For 30 days [facility] Medication administered onsite INQOVI 35-100 MG TABS [id number] 12/14/2019 12:00:00 AM EDT active [facility] Pravastatin Sodium 40 MG Oral Tablet pravastatin (PRAV ACHOL) 40 MG tablet pravastatin (PRAVACHOL) 40 MG tablet 12/06/2019 12:00:00 AM EDT 40 mg Oral active Take 1 tablet (40 mg total) by mouth daily [facility] 7 ACTUAT umeclidinium 0.0625 MG/ACTUAT D ry Powder Inhaler [Incruse] INCRUSE ELLIPTA 62.5 MCG/INH AEPB INCRUSE ELLIPTA 62.5 MCG/INH AEPB 11/28/2019 12:00:00 AM EDT active INHALE 1 PUFF BY MOUTH ONCE DAILY [facility] Pravastatin Sodium 40 MG Oral Tablet Pravastatin Sodium 40 M G 06/28/2019 12:00:00 AM EDT 1.0 {tablet} active Pr avastatin Sodium 40 MG eCW1 (Formerly [facility]) Pravastatin Sodium 40 MG Oral Tablet Pravastatin Sodium 40 M G 06/28/2019 12:00:00 AM EDT 1.0 {tablet} active Pr avastatin Sodium 40 MG eCW1 (Formerly [facility]) Pravastatin Sodium 40 MG Oral Tablet Pravastatin Sodium 40 M G 06/28/2019 12:00:00 AM EDT 1.0 {tablet} active Pr avastatin Sodium 40 MG eCW1 (Formerly [facility]) Pravastatin Sodium 40 MG Oral Tablet Pravastatin Sodium 40 M G 06/28/2019 12:00:00 AM EDT 1.0 {tablet} active Pr avastatin Sodium 40 MG eCW1 (Formerly [facility]) Pravastatin Sodium 40 MG Oral Tablet Pravastatin Sodium 40 M G 06/28/2019 12:00:00 AM EDT 1.0 {tablet} active Pr avastatin Sodium 40 MG eCW1 (Formerly [facility]) Pravastatin Sodium 40 MG Oral Tablet Pravastatin Sodium 40 M G 06/28/2019 12:00:00 AM EDT active 1 tablet eCW1 (Formerly [facility]) Pravastatin Sodium 40 MG Oral Tablet Pravastatin Sodium 40 M G 06/28/2019 12:00:00 AM EDT 1.0 {tablet} active Pr avastatin Sodium 40 MG eCW1 (Formerly [facility]) Pravastatin Sodium 40 MG Oral Tablet Pravastatin Sodium 40 M G 06/28/2019 12:00:00 AM EDT 1.0 {tablet} active Pr avastatin Sodium 40 MG eCW1 (Formerly [facility]) 24 HR Isosorbide Mononitrate 60 MG Exten ded Release Oral Tablet Isosorbide Mononitrate ER 60 MG Isosorbide Mononitrate ER 60 MG 06/10/2019 12:00:00 AM EDT 1.0 {tablet_in_the_morning} active Isosorbide Mononitrate ER 60 MG eCW1 (Formerly [facility]) 24 HR Isosorbide Mononitrate 60 MG Exten ded Release Oral Tablet Isosorbide Mononitrate ER 60 MG Isosorbide Mononitrate ER 60 MG 06/10/2019 12:00:00 AM EDT active 1 tablet in the morning eCW1 (Formerly [facility]) 24 HR Isosorbide Mononitrate 60 MG Exten ded Release Oral Tablet Isosorbide Mononitrate ER 60 MG Isosorbide Mononitrate ER 60 MG 06/10/2019 12:00:00 AM EDT 1.0 {tablet_in_the_morning} active Isosorbide Mononitrate ER 60 MG eCW1 (Formerly [facility]) 24 HR Isosorbide Mononitrate 60 MG Exten ded Release Oral Tablet Isosorbide Mononitrate ER 60 MG Isosorbide Mononitrate ER 60 MG 06/10/2019 12:00:00 AM EDT 1.0 {tablet_in_the_morning} active Isosorbide Mononitrate ER 60 MG eCW1 (Formerly [facility]) 24 HR Isosorbide Mononitrate 60 MG Exten ded Release Oral Tablet Isosorbide Mononitrate ER 60 MG Isosorbide Mononitrate ER 60 MG 06/10/2019 12:00:00 AM EDT 1.0 {tablet_in_the_morning} active Isosorbide Mononitrate ER 60 MG eCW1 (Formerly [facility]) 24 HR Isosorbide Mononitrate 60 MG Exten ded Release Oral Tablet Isosorbide Mononitrate ER 60 MG Isosorbide Mononitrate ER 60 MG 06/10/2019 12:00:00 AM EDT active 1 tablet in the morning eCW1 (Formerly [facility]) 24 HR Isosorbide Mononitrate 60 MG Exten ded Release Oral Tablet Isosorbide Mononitrate ER 60 MG Isosorbide Mononitrate ER 60 MG 06/10/2019 12:00:00 AM EDT 1.0 {tablet_in_the_morning} active Isosorbide Mononitrate ER 60 MG eCW1 (Formerly [facility]) 24 HR Isosorbide Mononitrate 60 MG Exten ded Release Oral Tablet Isosorbide Mononitrate ER 60 MG Isosorbide Mononitrate ER 60 MG 06/10/2019 12:00:00 AM EDT 1.0 {tablet_in_the_morning} active Isosorbide Mononitrate ER 60 MG eCW1 (Formerly [facility]) 24 HR Isosorbide Mononitrate 60 MG Exten ded Release Oral Tablet Isosorbide Mononitrate ER 60 MG Isosorbide Mononitrate ER 60 MG 06/10/2019 12:00:00 AM EDT active 1 tablet in the morning eCW1 (Formerly [facility]) 24 HR Isosorbide Mononitrate 60 MG Exten ded Release Oral Tablet Isosorbide Mononitrate ER 60 MG Isosorbide Mononitrate ER 60 MG 06/10/2019 12:00:00 AM EDT 1.0 {tablet_in_the_morning} active Isosorbide Mononitrate ER 60 MG eCW1 (Formerly [facility]) Shower Chair without wheels UNK 05/27/2019 12:00:00 AM EDT active Shower Chair without wheels eCW1 (Formerly [facility]) Wheelchair - Wheelchair - 05/27/2019 12:00:00 AM EDT active as directed eCW1 (Formerly [facility]) Shower Chair without wheels UNK 05/27/2019 12:00:00 AM EDT active Shower Chair without wheels eCW1 (Formerly [facility]) Wheelchair - Wheelchair - 05/27/2019 12:00:00 AM EDT active as directed eCW1 (Formerly [facility]) Shower Chair without wheels UNK 05/27/2019 12:00:00 AM EDT active Shower Chair without wheels eCW1 (Formerly [facility]) Wheelchair - Wheelchair - 05/27/2019 12:00:00 AM EDT active Wheelchair - eCW1 (Formerly [facility]) Shower Chair without wheels UNK 05/27/2019 12:00:00 AM EDT active Shower Chair without wheels eCW1 (Formerly [facility]) Wheelchair - Wheelchair - 05/27/2019 12:00:00 AM EDT active as directed eCW1 (Formerly [facility]) Shower Chair without wheels UNK 05/27/2019 12:00:00 AM EDT active Shower Chair without wheels eCW1 (Formerly [facility]) Shower Chair without wheels UNK 05/27/2019 12:00:00 AM EDT active as directed eCW1 (Formerly [facility]) Wheelchair - Wheelchair - 05/27/2019 12:00:00 AM EDT active Wheelchair - eCW1 (Formerly [facility]) Wheelchair - Wheelchair - 05/27/2019 12:00:00 AM EDT active Wheelchair - eCW1 (Formerly [facility]) Wheelchair - Wheelchair - 05/27/2019 12:00:00 AM EDT active Wheelchair - eCW1 (Formerly [facility]) Shower Chair without wheels UNK 05/27/2019 12:00:00 AM EDT active as directed eCW1 (Formerly [facility]) Wheelchair - Wheelchair - 05/27/2019 12:00:00 AM EDT active as directed eCW1 (Formerly [facility]) Shower Chair without wheels UNK 05/27/2019 12:00:00 AM EDT active Shower Chair without wheels eCW1 (Formerly [facility]) Wheelchair - Wheelchair - 05/27/2019 12:00:00 AM EDT active Wheelchair - eCW1 (Formerly [facility]) Wheelchair - Wheelchair - 05/27/2019 12:00:00 AM EDT active Wheelchair - eCW1 (Formerly [facility]) Wheelchair - Wheelchair - 05/27/2019 12:00:00 AM EDT active Wheelchair - eCW1 (Formerly [facility]) Shower Chair without wheels UNK 05/27/2019 12:00:00 AM EDT active as directed eCW1 (Formerly [facility]) Shower Chair without wheels UNK 05/27/2019 12:00:00 AM EDT active as directed eCW1 (Formerly [facility]) Shower Chair without wheels UNK 05/27/2019 12:00:00 AM EDT active Shower Chair without wheels eCW1 (Formerly [facility]) carbamide peroxide 65 MG/ML Otic Solution [Debrox] Debrox 6. 5 % Debrox 6.5 % 05/16/2019 12:00:00 AM EDT 5.0 {drops_into_affected_ear} active Debrox 6.5 % eCW1 (Formerly [facility]) carbamide peroxide 65 MG/ML Otic Solution [Debrox] Debrox 6. 5 % Debrox 6.5 % 05/16/2019 12:00:00 AM EDT active 5 drops into affected ear eCW1 (Formerly [facility]) carbamide peroxide 65 MG/ML Otic Solution [Debrox] Debrox 6. 5 % Debrox 6.5 % 05/16/2019 12:00:00 AM EDT 5.0 {drops_into_affected_ear} active Debrox 6.5 % eCW1 (Formerly [facility]) carbamide peroxide 65 MG/ML Otic Solution [Debrox] Debrox 6. 5 % Debrox 6.5 % 05/16/2019 12:00:00 AM EDT 5.0 {drops_into_affected_ear} active Debrox 6.5 % W1 (Formerly [facility]) carbamide peroxide 65 MG/ML Otic Solution [Debrox] Debrox 6. 5 % Debrox 6.5 % 05/16/2019 12:00:00 AM EDT active 5 drops into affected ear eCW1 (Formerly [facility]) carbamide peroxide 65 MG/ML Otic Solution [Debrox] Debrox 6. 5 % Debrox 6.5 % 05/16/2019 12:00:00 AM EDT 5.0 {drops_into_affected_ear} active Debrox 6.5 % eCW1 (Formerly [facility]) carbamide peroxide 65 MG/ML Otic Solution [Debrox] Debrox 6. 5 % Debrox 6.5 % 05/16/2019 12:00:00 AM EDT 5.0 {drops_into_affected_ear} active Debrox 6.5 % eCW1 (Formerly [facility]) carbamide peroxide 65 MG/ML Otic Solution [Debrox] Debrox 6. 5 % Debrox 6.5 % 05/16/2019 12:00:00 AM EDT active 5 drops into affected ear eCW1 (Formerly [facility]) carbamide peroxide 65 MG/ML Otic Solution [Debrox] Debrox 6. 5 % Debrox 6.5 % 05/16/2019 12:00:00 AM EDT 5.0 {drops_into_affected_ear} active Debrox 6.5 % eCW1 (Formerly [facility]) carbamide peroxide 65 MG/ML Otic Solution [Debrox] Debrox 6. 5 % Debrox 6.5 % 05/16/2019 12:00:00 AM EDT active 5 drops into affected ear eCW1 (Formerly [facility]) Sodium Chloride 0.111 MEQ/ML Nasal [place] Saline Nasal [place] 0.65 % Saline Nasal [place] 0.65 % 05/12/2019 12:00:00 AM EDT activ e 2 sprays in each nostril as needed eCW1 (Formerly [facility]) Amoxicillin 875 MG / Clavulanate 125 MG Oral Tablet Amoxicillin-Pot Clavulanate 875-125 MG Amoxicillin-Pot Clavulanate 875-125 MG 04/22/2019 12:00:00 AM ES T active 1 tablet eCW1 (Formerly [facility]) Amoxicillin 875 MG / Clavulanate 125 MG Oral Tablet Amoxicillin-Pot Clavulanate 875-125 MG Amoxicillin-Pot Clavulanate 875-125 MG 04/22/2019 12:00:00 AM ES T suspended 1 tablet eCW1 ([facility]) Amoxicillin 875 MG / Clavulanate 125 MG Oral Tablet Amoxicillin-Pot Clavulanate 875-125 MG Amoxicillin-Pot Clavulanate 875-125 MG 04/22/2019 12:00:00 AM ES T suspended 1 tablet eCW1 ([facility]) Allopurinol 100 MG Oral Tablet Allopurinol 100 MG Oral Tablet (ZYLOPRIM) Allopurinol 100 MG Oral Tablet (ZYLOPRIM) 04/10/2019 12:00:00 AM EST 100 mg Oral active Take 1 tablet by [facility] Furosemide 40 MG Oral Tablet Furosemide 40 MG Oral Tab let (LASIX) Furosemide 40 MG Oral Tablet (LASIX) 04/10/2019 12:00:00 AM EST 40 mg Oral aborted Take 1 tablet by mouth daily [facility] 24 HR Isosorbide Mononitrate 60 MG Exten ded Release Oral Tablet Isosorbide Mononitrate ER 60 MG Oral Tablet Extended Release 24 Hour (IMDUR) Isosorbide Mononitrate ER 60 MG Oral Tablet Extended Release 24 Hour (IMDUR) 04/10/2019 12:00:00 AM EST 60 mg Oral active Take 1 t ablet by mouth daily [facility] calcium polycarbophil 625 MG Oral Tablet Calcium Polycarbophil 625 MG Oral Tablet (FIBERCON) Calcium Polycarbophil 625 MG Oral Tablet (FIBERCON) 12:00:00 AM EST 625 mg Oral active Take 1 tablet by mouth daily [facility] Amlodipine 5 MG Oral Tablet amLODIPine Besylate 5 MG O ral Tablet (NORVASC) amLODIPine Besylate 5 MG Oral Tablet (NORVASC) 04/10/2019 12:00:00 AM EST 5 mg Oral active Take 1 tablet by mouth d [facility] Tiotropium [place] Monohydrate 2.5 MCG/A CT Inhalation Aerosol Solution (SPIRIVA RESPIMAT) [id number] 04/10/2019 12:00:00 AM EST 2 {puff} Inhalation aborted Inhale 2 puffs into the lungs daily [facility] Insulin Glargine 100 UNT/ML Injectable S olution Insulin Glargine 100 UNIT/ML Subcutaneous Solution (LANTUS) Insulin Glargine 100 UNIT/ML Subcutaneou s Solution (LANTUS) 04/09/2019 12:00:00 AM EST 24 U Subcutaneous aborted Inject 24 Units into the skin nightly [facility] carvedilol 12.5 MG Oral Tablet Carvedilol 12.5 MG Oral Tablet (COREG) Carvedilol 12.5 MG Oral Tablet (COREG) 04/09/2019 12:00:00 AM EST 12.5 mg Oral aborted Take 1 tablet by mouth Two Times Daily [facility] sennosides, PRISON 8.6 MG Oral Tablet Senna 8.6 MG Oral T ablet Senna 8.6 MG Oral Tablet 04/09/2019 12:00:00 AM EST 2 {tbl} Oral aborted Take 2 tablets by mouth nightly [facility] Pravastatin Sodium 40 MG Oral Tablet Pra vastatin Sodium 40 MG Oral Tablet (PRAVACHOL) Pravastatin Sodium 40 MG Oral Tablet (PRAVACHOL) 04/09 12:00:00 AM EST 40 mg Oral aborted Take 1 tablet b y mouth every evening [facility] insulin lispro 100 UNIT/ML SC injection MEDIUM DOSE EA TING INSULIN patients [id number] 04/09/2019 12:00:00 AM EST U Subcutaneous aborted Patient Instructions: Please refer to Insulin Sliding Scale Instructions in the Discharge Instructions. [facility] Furosemide 20 MG Oral Tablet furosemide (LASIX) tablet 40 mg furosemide (LASIX) tablet 40 mg 04/08/2019 09:00:00 AM EST 40 mg Oral activ e 40 mg, Oral, Daily Standard, First dose (after last modification) on Thu04/08/19 at 0900, For 27 doses [facility] Medication administered onsite Acetaminophen 325 MG Oral [...] mg from all sources in 24 hours.
[facility] Medication administered onsite Allopurinol 100 MG Oral Tablet allopurinol (ZYLOPRIM) tablet 100 mg allopurinol (ZYLOPRIM) tablet 100 mg 04/07/2019 09:00:00 AM EST 100 mg Oral active 100 mg, Oral, Daily Standard, First dos e (after last reorder) on Thu04/07/19 at 0900, For 7 days [facility] Medication administered onsite Furosemide 20 MG Oral Tablet furosemide (LASIX) tablet 20 mg furosemide (LASIX) tablet 20 mg 04/07/2019 09:00:00 AM EST 20 mg Oral abort ed 20 mg, Oral, Daily Standard, First dose (after last modification) on Ira 04/07/19 at 0900, For 28 doses [facility] Medication administered onsite Acetaminophen 325 MG Oral Tablet acetaminophen (TYLENO L) tablet 650 mg acetaminophen (TYLENOL) tablet 650 mg 04/07/2019 12:30:00 AM EST 65 0 mg Oral completed 650 mg, Oral, O nce, Ira 04/07/19 at 0030, For 1 dose
Maximum daily dose of acetaminophen is 3,000 mg from all sources in 24 hours.
[facility] Medication administered onsite sennosides, PRISON 8.6 MG Oral Tablet senna 8.6 MG 2 tablet sen na 8.6 MG 2 tablet 04/06/2019 10:00:00 PM EST 2 {tbl} Oral active 2 tablet, Oral, Nightly, First dose on Thu04/06/19 at 2200, For 30 days [facility] Medication administered onsite Insulin Glargine 100 UNT/ML [...] glucose more than 400 mg/dL: notify provider
[facility] Medication administered onsite Pravastatin Sodium 20 MG Oral Tablet pravastatin (PRAV ACHOL) tablet 40 mg pravastatin (PRAVACHOL) tablet 40 mg 04/06/2019 09:00:00 PM EST 40 mg Oral active 40 mg, Oral, Nai ry evening, First dose on Thu04/06/19 at 2100, For 30 days [facility] Medication administered onsite Allopurinol 300 MG Oral Tablet allopurinol (ZYLOPRIM) tablet 300 mg allopurinol (ZYLOPRIM) tablet 300 mg 04/06/2019 01:15:00 PM EST 300 mg Oral completed 300 mg, Oral, Once, Thu04/06/19 at 1315, For 1 dose [facility] Medication administered onsite Amlodipine 5 MG Oral Tablet amlodipine (NORVASC) table t 5 mg amlodipine (NORVASC) tablet 5 mg 04/06/2019 09:00:00 AM EST 5 mg Oral active 5 mg, Oral, Daily Standard, First dose on Thu04/06/19 at 0900, For 30 days
Check vital signs before administering
[facility] Medication administered onsite calcium polycarbophil 625 MG Oral Tablet polycarbophil (FIBERCON) tablet 625 mg polycarbophil (FIBERCON) tablet 625 mg 04/06/2019 09:00:00 AM EST 6 25 mg Oral active 625 mg, Oral, D aily Standard, First dose on Thu04/06/19 at 0900, For 30 days [facility] Medication administered onsite carvedilol 6.25 MG Oral Tablet carvedilol (COREG) tabl et 12.5 mg carvedilol (COREG) tablet 12.5 mg 04/06/2019 09:00:00 AM EST 12.5 mg Oral active 12.5 mg, Oral, 2 Times Daily, First dose on Thu04/06/19 at 0900, For 30 days
Check vital signs before administering
[facility] Medication administered onsite 24 HR Isosorbide Mononitrate 30 MG Exten ded Release Oral Tablet isosorbide mononitrate (IMDUR) 24 hr tablet 60 mg isosorbide mononitrate (IMDUR) 24 hr tablet 60 mg 04/06/2019 09:00:00 AM EST 60 mg Oral activ e 60 mg, Oral, Daily Standard, First dose on Thu04/06/19 at 0900, For 30 days
DO NOT CRUSH/CHEW
[facility] Medication administered onsite lidocaine (XYLOCAINE) 2 % injection 10 mL [id number] 04/06/2019 08:30:00 AM EST 10 mL Infiltration completed 1 0 mL, Infiltration, Once, Thu04/06/19 at 0830, For 1 dose [facility] Medication administered onsite Insulin Lispro 100 UNT/ML [...] Summary or Summary Report within the ED.
[facility] Medication administered onsite 28 ACTUAT tiotropium 0.0025 MG/ACTUAT Me tered Dose Inhaler tiotropium (SPIRIVA RESPIMAT) inhalation spray 2 puff tiotropium (SPIRIVA RESPIMAT) inhalation spray 2 puff 04/06/2019 08:00:00 AM EST 2 {puff} Inhalation acti ve 2 puff, Inhalation, Daily RT, First dose on Thu04/06/19 at 0800, For 30 days [facility] Medication administered onsite Furosemide 20 MG Oral Tablet furosemide (LASIX) tablet 40 mg furosemide (LASIX) tablet 40 mg 04/06/2019 03:15:00 AM EST 40 mg Oral abort ed 40 mg, Oral, Daily Standard, First dose (after last modification) on Thu04/06/19 at 0315, For 30 days [facility] Medication administered onsite calcium gluconate in NaCl 0.9 % infusion 1 g/50 mL [id number] 04/06/2019 03:15:00 AM EST 1 g Intravenous completed 1 g, Intravenous, Administer over 1 Hours, Once, Thu04/06/19 at 0315, For 1 dose
1 g calcium gluconate = 90 mg elemental Ca++ = 4.5 mEq Ca++. Dosed on mg of calcium gluconate.
[facility] Medication administered onsite albuterol (PROVENTIL HFA;VENTOLIN HFA) inhaler 2 puff [id number] 04/05/2019 11:50:41 PM EST 2 {puff} Inhalation active 2 puff, Inhalation, Every 4 hours PRN, Wheezing, Shortness of Breath, Starting Thu04/05/19 at 2350, For 4 days 9 hours
Shake the inhaler well before each spray.
[facility] Medication administered onsite dextrose 50 % IV solution 25 mL [id number] 04/05/2019 11:46:[address] 25 mL Intravenous active 25 mL, Intrav enous, PRN, Other, blood glucose <55, Starting Thu04/05/19 at 2346, For 30 days
Not for midline administration.
[facility] Medication administered onsite Glucose 0.4 MG/MG Oral Gel glucose (GLUTOSE) 40 % oral gel 15 g glucose (GLUTOSE) 40 % oral gel 15 g 04/05/2019 11:46:06 PM EST 15 g Oral active 15 g, Oral, PRN, Low blood s ugar, for gluose 55-69 mg/dl and able to take PO, Starting Thu04/05/19 at 2346, For 30 days [facility] Medication administered onsite Glucagon 1 MG Injection glucagon (human recombinant) ( GLUCAGEN) injection 1 mg glucagon (human recombinant) (GLUCAGEN) injection 1 mg 04/05/2019 11:46:06 PM EST 1 mg Intramuscular active 1 mg, Intramuscular, PRN, for glucose <55 without IV access, Starting Thu04/05/19 at 2346, For 30 days [facility] Medication administered onsite Spironolactone 50 MG Oral Tablet spironolactone (ALDAC TONE) 50 MG tablet spironolactone (ALDACTONE) 50 MG tablet 04/16/2016 12:00:00 AM EST 50 mg Oral aborted Take 1 tablet (50 mg tota l) by mouth daily [facility] Hydralazine Hydrochloride 100 MG Oral Ta blet hydrALAZINE (APRESOLINE) 100 MG tablet hydrALAZINE (APRESOLINE) 100 MG tablet 50 mg Oral aborted Take 50 mg by mouth 2 (two) times a day [facility] Aspirin 81 MG Delayed Release Oral Tablet aspirin EC 8 1 MG EC tablet aspirin EC 81 MG EC tablet 81 mg Oral aborted Take 81 mg by mouth daily [facility] albuterol (PROVENTIL HFA;VENTOLIN HFA) 108 (90 BASE) MCG/[place] r [id number] 2 {puff} Inhalation aborted Inhale 2 puffs every 4 (four) hours as needed for wheezing or shortness of breath [facility] Acetaminophen 500 MG Oral Tablet Acetaminophen 500 MG Oral Tablet (TYLENOL) Acetaminophen 500 MG Oral Tablet (TYLENOL) 1000 mg Oral aborted Take 1,000 mg by mouth every 6 (six) hours as needed for Pain [facility] clopidogrel 75 MG Oral Tablet clopidogrel (PLAVIX) 75 MG tablet clopidogrel (PLAVIX) 75 MG tablet 75 mg Oral aborted Ta ke 75 mg by mouth daily [facility] Furosemide 40 MG Oral Tablet Furosemide 40 MG Oral Tab let (LASIX) Furosemide 40 MG Oral Tablet (LASIX) 40 mg Oral aborted Take 40 mg by mouth Two Times Daily [facility] Basaglar KwikPen 100 UNIT/ML Subcutaneou s Solution Pen-injector (insulin glargine) 9929-1000-35 30 U Subcutaneous aborted Inject 30 Units into the skin nightly [facility] Acyclovir 400 MG Oral Tablet Acyclovir 400 MG Oral Tab let (ZOVIRAX) Acyclovir 400 MG Oral Tablet (ZOVIRAX) 400 mg Oral aborted Take 400 mg by mouth Two Times Daily [facility] Inqovi 35-100 MG Oral Tablet (Decitabine-Cedazuridine) [address]-1 1 {tbl} Oral aborted Take 1 tablet by mouth daily for 5 days every 28 day cycle. [facility] Insurance Providers Payer name Policy type / Coverage type Policy ID Covered green party ID Covered green party's relationship to wiseman Policy Wiseman Plan Information MEDICARE [id number] SP [id number] [facility] [id number] SP [id number] [facility] [id number] SP [id number] MEDICARE PART A -O/P [id number] MEDICARE A [id number] Self [id number] MVP I [id number] Self [id number] MEDICAID [id number] MEDICARE [id number] Shira [id number] [facility] MEDICAID [id number] Shira [id number] [facility] 020/520 [id number] SP [id number] [facility] HEALTH CARE O [id number] S [id number] ANSI-Commercial [id number] ANSI-Not a Secondary Insurance [id number] ANSI-Not a Secondary Insurance [id number] ANSI-Commercial [id number] ANSI-Not a Secondary Insurance [id number] ANSI-Commercial [id number] [facility] Health Maintenance Organization (O) [id number] Self [id number] ANSI-Commercial [id number] ANSI-Not a Secondary Insurance [id number] ANSI-Not a Secondary Insurance [id number] ANSI-Commercial [id number] ANSI-Not a Secondary Insurance [id number] ANSI-Commercial [id number] ANSI-Not a Secondary Insurance [id number] ANSI-Commercial [id number] ANSI-Commercial [id number] ANSI-Not a Secondary Insurance [id number] ANSI-Commercial [id number] ANSI-Not a Secondary Insurance [id number] ANSI-Not a Secondary Insurance [id number] ANSI-Commercial [id number] ANSI-Commercial [id number] ANSI-Not a Secondary Insurance [id number] MVP MEDICAID PI PI ANSI-Commercial [id number] ANSI-Not a Secondary Insurance [id number] ANSI-Commercial [id number] ANSI-Not a Secondary Insurance [id number] ANSI-Not a Secondary Insurance [id number] ANSI-Commercial [id number] ANSI-Commercial [id number] ANSI-Not a Secondary Insurance [id number] ANSI-Commercial [id number] ANSI-Not a Secondary Insurance [id number] [employer] [place] 020 [id number] SP [id number] [employer] [place] [id number] SP [id number] [place]/307 [id number] SP [id number] [employer] B [id number] S W [id number] [employer] [place]/307 [id number] SP [id number] [employer] [place]/307 [id number] SP [id number] [employer] [id number] Shira W [id number] [employer] [place]/307 [id number] SP [id number] [employer] [place]/307 [id number] SP [id number] [employer] [place]/307 [id number] SP [id number] [employer] [place] [id number] SP [id number] Problems, Conditions, and Diagnoses Code Display Name Description Problem Type Effective Dates Data Source(s) N18.4 [id number] CKD (chronic kidney disease) stage 4, GFR 15-29 ml/min Problem 12/23/2019 12:00:00 AM EST eCW1 (Formerly [facility]) I65.23 [id number] Bilateral carotid artery stenosis Prob elaine 12/23/2019 12:00:00 AM EST eCW1 (Formerly [facility]) I50.30 [id number] Diastolic CHF with p reserved left ventricular function, NYHA class 2 Problem 12/23/2019 12:00:00 AM EST eCW1 ([facility]) Z95.810 Automatic implantable cardiac defibrilla tor in situ History of implantable cardioverter-defibrillator (ICD) placement Problem 12/23/2019 12:00:00 AM EST eCW1 (Formerly [facility]) Z98.61 [id number] Coronary angioplasty status Problem 12/23/19 12:00:00 AM EST eCW1 (Formerly [facility]) I10 [id number] Essential hypertension Problem 12/23/2019 12 :00:00 AM EST eCW1 (Formerly [facility]) C93.10 CMML (chronic myelomonocytic leukemia) C MML (chronic myelomonocytic leukemia) 85759377 12/21/2019 12:00:00 AM EST [facility] Z98.61 Coronary angioplasty status Coronary angioplasty statu s [id number] 12/21/2019 12:00:00 AM [facility] E78.5 Hyperlipidemia Hyperlipidemia 22457184 12/21/2019 12:00: 00 AM [facility] I50.9 Congestive heart failure Congestive heart failure 6457 2001 12/21/2019 12:00:00 AM [facility] D69.6 421933592 Thrombocytopenia Problem 06/07/2019 12:00:00 AM EDT eCW1 (Formerly [facility]) D69.6 163198030 Thrombocytopenia Problem 06/07/2019 12:00:00 AM EDT eCW1 (Formerly [facility]) C93.10 [id number] 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 Problem 05/27/2019 12:00:00 AM EDT eCW1 ([facility]) C93.10 503794813 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 acute leukemia acute leukemia Diagnosis 03/06/2020 10:19: [address] 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 POCT GLUCOSE, DOCKED POCT GLUCOSE, DOCKED Routine 03/18/2020 11:46 AM EST 03/18/2020 11:46:[address] [facility] PREPARE HLA PLATELET MATCHED PREPARE HLA PLATELET MATCHED Lili ne 03/18/2020 9:41 AM EST 03/18/2020 09:41:00 AM [facility] BLOOD COUNT COMPLETE AUTOMATED CBC Routine 03/18/2020 9:01 A M EST 03/18/2020 09:01:[address] [facility] TRANSFUSE RBC (ONCE) TRANSFUSE RBC (ONCE) STAT 03/18/2020 7:58 AM EST 03/18/2020 07:58:[address] [facility] POCT GLUCOSE, DOCKED POCT GLUCOSE, DOCKED Routine 03/18/2020 7:37 AM EST 03/18/2020 07:37:[address] [facility] BLOOD COUNT COMPLETE AUTO&AUTO DIFRNTL WBC COUNT CBC AND DIFFER ENTIAL Routine 03/18/2020 1:12 AM EST 03/18/2020 01:12:[address] [facility] PHOSPHORUS INORGANIC PHOSPHORUS LEVEL Routine 03/18/2020 1:[address] 03/18/2020 01:12:[address] [facility] MAGNESIUM MAGNESIUM LEVEL Routine 03/18/2020 1:12 AM EST 03/18/2020 01:12:[address] [facility] BASIC METABOLIC PANEL CALCIUM TOTAL BASIC METABOLIC PANEL Routi ne 03/18/2020 1:12 AM EST 03/18/2020 01:12:00 AM [facility] GLUCOSE QUANTITATIVE BLOOD XCPT REAGENT STRIP POCT GLUCOSE, DOC KED Routine 03/17/2020 9:14 PM EST 03/17/2020 09:14:[address] [facility] GLUCOSE QUANTITATIVE BLOOD XCPT REAGENT STRIP POCT GLUCOSE, DOC KED Routine 03/17/2020 4:43 PM EST 03/17/2020 04:43:[address] [facility] BLOOD COUNT PLATELET AUTOMATED PLATELET COUNT Routine 021 4:03 PM EST 03/17/2020 04:03:00 PM [facility] TRANSFUSE PLATELET HLA MATCHED (ONCE) TRANSFUSE PLATELET HL A MATCHED (ONCE) Routine 03/17/2020 3:32 PM EST 03/17/2020 03:32:[address] [facility] GLUCOSE QUANTITATIVE BLOOD XCPT REAGENT STRIP POCT GLUCOSE, DOC KED Routine 03/17/2020 11:33 AM EST 03/17/2020 11:33:[address] [facility] TRANSFUSE RBC (ONCE) TRANSFUSE RBC (ONCE) STAT 03/17/2020 11:27 AM EST 03/17/2020 11:27:[address] [facility] PREPARE HLA PLATELET MATCHED PREPARE HLA PLATELET MATCHED Routi ne 03/17/2020 10:25 AM EST 03/17/2020 10:25:00 AM [facility] GLUCOSE QUANTITATIVE BLOOD XCPT REAGENT STRIP POCT GLUCOSE, DOC KED Routine 03/17/2020 7:36 AM EST 03/17/2020 07:36:[address] [facility] XR CHEST FRONTAL ONLY [id number] XR CHEST FRONTAL ONLY [id number] Routine 03/17/2020 3:22 AM EST 03/17/2020 03:22:00 AM [facility] URNLS DIP STICK/TABLET REAGENT AUTO MICROSCOPY URINALYSIS W ITH MICROSCOPIC Routine 03/17/2020 1:08 AM EST 03/17/2020 01:08:[address] [facility] BLOOD COUNT COMPLETE AUTOMATED CBC AND DIFFERENTIAL Routine 03/17/2020 1:08 AM EST 03/17/2020 01:08:00 AM [facility] BLOOD TYPING ABO TYPE AND SCREEN Routine 03/17/2020 1:08 AM EST 03/17/2020 01:08:[address] [facility] PHOSPHORUS INORGANIC PHOSPHORUS LEVEL Routine 03/17/2020 1:[address] 03/17/2020 01:08:[address] [facility] MAGNESIUM MAGNESIUM LEVEL Routine 03/17/2020 1:08 AM EST 03/17/2020 01:08:[address] [facility] BASIC METABOLIC PANEL CALCIUM TOTAL BASIC METABOLIC PANEL Routi ne 03/17/2020 1:08 AM EST 03/17/2020 01:08:00 AM [facility] CULTURE BACTERIAL BLOOD AEROBIC W/ID ISOLATES BLOOD CULTURE R outine 03/17/2020 1:00 AM EST 03/17/2020 01:00:00 AM [facility] CULTURE BACTERIAL BLOOD AEROBIC W/ID ISOLATES BLOOD CULTURE R outine 03/17/2020 1:00 AM EST 03/17/2020 01:00:00 AM [facility] CULTURE BACTERIAL BLOOD AEROBIC W/ID ISOLATES BLOOD CULTURE R outine 03/17/2020 1:00 AM EST 03/17/2020 01:00:00 AM [facility] GLUCOSE QUANTITATIVE BLOOD XCPT REAGENT STRIP POCT GLUCOSE, DOC CLAUDIOD Routine 03/16/2020 9:56 PM EST 03/16/2020 09:56:[address] [facility] GLUCOSE QUANTITATIVE BLOOD XCPT REAGENT STRIP POCT GLUCOSE, DOC KED Routine 03/16/2020 4:28 PM EST 03/16/2020 04:28:[address] [facility] GLUCOSE QUANTITATIVE BLOOD XCPT REAGENT STRIP POCT GLUCOSE, DOC KED Routine 03/16/2020 11:29 AM EST 03/16/2020 11:29:[address] [facility] GLUCOSE QUANTITATIVE BLOOD XCPT REAGENT STRIP POCT GLUCOSE, DOC KED Routine 03/16/2020 8:01 AM EST 03/16/2020 08:01:[address] [facility] BLOOD COUNT COMPLETE AUTOMATED CBC AND DIFFERENTIAL Routine 03/16/2020 12:25 AM EST 03/16/2020 12:25:00 AM [facility] PHOSPHORUS INORGANIC PHOSPHORUS LEVEL Routine 03/16/2020 12:[address] 03/16/2020 12:25:[address] [facility] MAGNESIUM MAGNESIUM LEVEL Routine 03/16/2020 12:25 AM EST 03/16/2020 12:25:[address] [facility] BASIC METABOLIC PANEL CALCIUM TOTAL BASIC METABOLIC PANEL Routi ne 03/16/2020 12:25 AM EST 03/16/2020 12:25:00 AM [facility] GLUCOSE QUANTITATIVE BLOOD XCPT REAGENT STRIP POCT GLUCOSE, DOC KED Routine 03/15/2020 10:02 PM EST 03/15/2020 10:02:[address] [facility] GLUCOSE QUANTITATIVE BLOOD XCPT REAGENT STRIP POCT GLUCOSE, DOC KED Routine 03/15/2020 4:28 PM EST 03/15/2020 04:28:[address] [facility] BLOOD COUNT COMPLETE AUTOMATED CBC AND DIFFERENTIAL Timed 03/15/2020 11:48 AM EST 03/15/2020 11:48:00 AM [facility] GLUCOSE QUANTITATIVE BLOOD XCPT REAGENT STRIP POCT GLUCOSE, DOC KED Routine 03/15/2020 11:42 AM EST 03/15/2020 11:42:[address] [facility] GLUCOSE QUANTITATIVE BLOOD XCPT REAGENT STRIP POCT GLUCOSE, DOC KED Routine 03/15/2020 7:53 AM EST 03/15/2020 07:53:[address] [facility] BLOOD COUNT COMPLETE AUTOMATED CBC AND DIFFERENTIAL Timed 03/15/2020 12:16 AM EST 03/15/2020 12:16:00 AM [facility] PHOSPHORUS INORGANIC PHOSPHORUS LEVEL Routine 03/15/2020 12:[address] 03/15/2020 12:16:[address] [facility] MAGNESIUM MAGNESIUM LEVEL Routine 03/15/2020 12:16 AM EST 03/15/2020 12:16:[address] [facility] BASIC METABOLIC PANEL CALCIUM TOTAL BASIC METABOLIC PANEL Routi ne 03/15/2020 12:16 AM EST 03/15/2020 12:16:00 AM [facility] GLUCOSE QUANTITATIVE BLOOD XCPT REAGENT STRIP POCT GLUCOSE, DOC KED Routine 03/14/2020 11:00 PM EST 03/14/2020 11:00:[address] [facility] TRANSFUSE RBC (ONCE) TRANSFUSE RBC (ONCE) STAT 03/14/2020 10:00 PM EST 03/14/2020 10:00:[address] [facility] TRANSFUSE PLATELET HLA MATCHED (ONCE) TRANSFUSE PLATELET HL A MATCHED (ONCE) Routine 03/14/2020 7:47 PM EST 03/14/2020 07:47:[address] [facility] GLUCOSE QUANTITATIVE BLOOD XCPT REAGENT STRIP POCT GLUCOSE, DOC KED Routine 03/14/2020 4:35 PM EST 03/14/2020 04:35:[address] [facility] BLOOD COUNT COMPLETE AUTOMATED CBC AND DIFFERENTIAL Timed 03/14/2020 4:03 PM EST 03/14/2020 04:03:00 PM [facility] GLUCOSE QUANTITATIVE BLOOD XCPT REAGENT STRIP POCT GLUCOSE, DOC KED Routine 03/14/2020 3:04 PM EST 03/14/2020 03:04:[address] [facility] UPPER GI ENDOSCOPY W/CONTROL, BLEEDING, ANY METHOD UP PER GI ENDOSCOPY W/CONTROL, BLEEDING, ANY METHOD 03/14/2020 2:06 PM EST GI bleeding -possibly Small GI bleeding 03/14/2020 02: 06:00 PM EST - 03/14/2020 03:18:[address] [facility] SMALL INTESTINAL ENDO/ENTEROSCOPY, > 2ND PORTION DUODENUM, NOT W/ILEUM DX W/WO SPECIMEN (SEP PROC) SMALL INTESTINAL ENDO/ENTEROSCOPY, > 2ND PORTION DUODENUM, NOT W/ILEUM DX W/WO SPECIMEN (SEP PROC) 03/14/2020 2:06 PM EST GI bleeding -possibly Small GI bleeding 03/14/2020 02: 06:00 PM EST - 03/14/2020 03:18:[address] [facility] GLUCOSE QUANTITATIVE BLOOD XCPT REAGENT STRIP POCT GLUCOSE, DOC KED Routine 03/14/2020 11:40 AM EST 03/14/2020 11:40:[address] [facility] GLUCOSE QUANTITATIVE BLOOD XCPT REAGENT STRIP POCT GLUCOSE, DOC KED Routine 03/14/2020 7:55 AM EST 03/14/2020 07:55:[address] [facility] PREPARE HLA PLATELET MATCHED PREPARE HLA PLATELET MATCHED Lili ramirez 03/14/2020 5:22 AM EST 03/14/2020 05:22:00 AM [facility] BLOOD COUNT PLATELET AUTOMATED PLATELET COUNT Routine 021 4:58 AM EST 03/14/2020 04:58:00 AM [facility] TRANSFUSE PLATELET HLA MATCHED (ONCE) TRANSFUSE PLATELET HL A MATCHED (ONCE) Routine 03/14/2020 4:11 AM EST 03/14/2020 04:11:[address] [facility] BLOOD COUNT COMPLETE AUTOMATED CBC AND DIFFERENTIAL Timed 03/14/2020 12:29 AM EST 03/14/2020 12:29:00 AM [facility] PHOSPHORUS INORGANIC PHOSPHORUS LEVEL Routine 03/14/2020 12:[address] 03/14/2020 12:29:[address] [facility] MAGNESIUM MAGNESIUM LEVEL Routine 03/14/2020 12:29 AM EST 03/14/2020 12:29:[address] [facility] BASIC METABOLIC PANEL CALCIUM TOTAL BASIC METABOLIC PANEL Routi ne 03/14/2020 12:29 AM EST 03/14/2020 12:29:00 AM [facility] SMALL BOWEL ENTEROSCOPY SMALL BOWEL ENTEROSCOPY 03/14/2020 12:00 AM EST 03/14/2020 12:00:[address] [facility] GLUCOSE QUANTITATIVE BLOOD XCPT REAGENT STRIP POCT GLUCOSE, DOC KED Routine 03/13/2020 9:29 PM EST 03/13/2020 09:29:[address] [facility] CULTURE BACTERIAL BLOOD AEROBIC W/ID ISOLATES BLOOD CULTURE R outine 03/13/2020 8:41 PM EST 03/13/2020 08:41:00 PM [facility] CULTURE BACTERIAL BLOOD AEROBIC W/ID ISOLATES BLOOD CULTURE R outine 03/13/2020 8:27 PM EST 03/13/2020 08:27:00 PM [facility] CULTURE BACTERIAL BLOOD AEROBIC W/ID ISOLATES BLOOD CULTURE R outine 03/13/2020 8:25 PM EST 03/13/2020 08:25:00 PM [facility] URNLS DIP STICK/TABLET REAGENT AUTO MICROSCOPY URINALYSIS W ITH MICROSCOPIC Routine 03/13/2020 8:25 PM EST 03/13/2020 08:25:[address] [facility] XR CHEST FRONTAL ONLY [id number] XR CHEST FRONTAL ONLY [id number] Routine 03/13/2020 8:09 PM EST 03/13/2020 08:09:06 PM [facility] GLUCOSE QUANTITATIVE BLOOD XCPT REAGENT STRIP POCT GLUCOSE, DOC KED Routine 03/13/2020 4:34 PM EST 03/13/2020 04:34:[address] [facility] PREPARE HLA PLATELET MATCHED PREPARE HLA PLATELET MATCHED Routi ne 03/13/2020 2:24 PM EST 03/13/2020 02:24:00 PM [facility] LAB RESULTS (OUTSIDE/HISTORICAL) LAB RESULTS (OUTSIDE/HISTORICA L) 03/13/2020 1:03 PM EST 03/13/2020 01:03:31 PM [facility] GLUCOSE QUANTITATIVE BLOOD XCPT REAGENT STRIP POCT GLUCOSE, DOC KED Routine 03/13/2020 11:38 AM EST 03/13/2020 11:38:[address] [facility] BLOOD COUNT COMPLETE AUTOMATED CBC AND DIFFERENTIAL Timed 03/13/2020 10:19 AM EST 03/13/2020 10:19:00 AM [facility] GLUCOSE QUANTITATIVE BLOOD XCPT REAGENT STRIP POCT GLUCOSE, DOC KED Routine 03/13/2020 7:41 AM EST 03/13/2020 07:41:[address] [facility] TRANSFUSE RBC (ONCE) TRANSFUSE RBC (ONCE) Routine 03/13/2020 3:50 AM EST 03/13/2020 03:50:[address] [facility] PHOSPHORUS INORGANIC PHOSPHORUS LEVEL Routine 03/13/2020 1:[address] 03/13/2020 01:35:[address] [facility] MAGNESIUM MAGNESIUM LEVEL Routine 03/13/2020 1:35 AM EST 03/13/2020 01:35:[address] [facility] BASIC METABOLIC PANEL CALCIUM TOTAL BASIC METABOLIC PANEL Routi ne 03/13/2020 1:35 AM EST 03/13/2020 01:35:00 AM [facility] PREPARE PLATELET PHERESIS PREPARE PLATELET PHERESIS Routine 03/13/2020 12:04 AM EST 03/13/2020 12:04:00 AM [facility] BLOOD COUNT COMPLETE AUTO&AUTO DIFRNTL WBC COUNT CBC AND DIFFER ENTIAL Timed 03/12/2020 10:07 PM EST 03/12/2020 10:07:[address] [facility] TRANSFUSE PLATELET PHERESIS (ONCE) TRANSFUSE PLATELET PHERESIS (ONCE) Routine 03/12/2020 9:40 PM EST 03/12/2020 09:40:[address] [facility] GLUCOSE QUANTITATIVE BLOOD XCPT REAGENT STRIP POCT GLUCOSE, DOC KED Routine 03/12/2020 9:17 PM EST 03/12/2020 09:17:[address] [facility] TRANSFUSE RBC (ONCE) TRANSFUSE RBC (ONCE) STAT 03/12/2020 5:23 PM EST 03/12/2020 05:23:[address] [facility] GLUCOSE QUANTITATIVE BLOOD XCPT REAGENT STRIP POCT GLUCOSE, DOC KED Routine 03/12/2020 4:42 PM EST 03/12/2020 04:42:[address] [facility] PREPARE PLATELET PHERESIS PREPARE PLATELET PHERESIS Routine 03/12/2020 3:56 PM EST 03/12/2020 03:56:00 PM [facility] BLOOD COUNT PLATELET AUTOMATED PLATELET COUNT Routine 021 2:57 PM EST 03/12/2020 02:57:00 PM [facility] TRANSFUSE PLATELET PHERESIS (ONCE) TRANSFUSE PLATELET PHERESIS (ONCE) Routine 03/12/2020 2:45 PM EST 03/12/2020 02:45:[address] [facility] GLUCOSE QUANTITATIVE BLOOD XCPT REAGENT STRIP POCT GLUCOSE, DOC KED Routine 03/12/2020 12:21 PM EST 03/12/2020 12:21:[address] [facility] ACUTE GASTROINTESTINAL BLOOD LOSS IMAGING NM GI BLOOD LOSS IMAGING [id number] Routine 03/12/2020 11:58 AM EST 03/12/2020 11:58:[address] [facility] SERUM SCREENING % REACTIVE ANTIBODY QUICK METH HLA ANTIBODY ID SCREEN Routine 03/12/2020 9:31 AM EST 03/12/2020 09:31:[address] [facility] PREPARE PLATELET PHERESIS PREPARE PLATELET PHERESIS Routine 03/12/2020 8:52 AM EST 03/12/2020 08:52:00 AM [facility] GLUCOSE QUANTITATIVE BLOOD XCPT REAGENT STRIP POCT GLUCOSE, DOC KED Routine 03/12/2020 7:43 AM EST 03/12/2020 07:43:[address] [facility] BLOOD COUNT COMPLETE AUTOMATED CBC AND DIFFERENTIAL Timed 03/12/2020 5:07 AM EST 03/12/2020 05:07:00 AM [facility] PHOSPHORUS INORGANIC PHOSPHORUS LEVEL Routine 03/12/2020 5:[address] 03/12/2020 05:07:[address] [facility] MAGNESIUM MAGNESIUM LEVEL Routine 03/12/2020 5:07 AM EST 03/12/2020 05:07:[address] [facility] COMPREHENSIVE METABOLIC PANEL COMPREHENSIVE METABOLIC PANEL Eduardo ed 03/12/2020 5:07 AM EST 03/12/2020 05:07:00 AM [facility] TRANSFUSE RBC (ONCE) TRANSFUSE RBC (ONCE) STAT 03/11/2020 10:51 PM EST 03/11/2020 10:51:[address] [facility] GLUCOSE QUANTITATIVE BLOOD XCPT REAGENT STRIP POCT GLUCOSE, DOC SAMANTHA Routine 03/11/2020 9:35 PM EST 03/11/2020 09:35:[address] [facility] BLOOD COUNT COMPLETE AUTOMATED CBC AND DIFFERENTIAL Timed 03/11/2020 4:45 PM EST 03/11/2020 04:45:00 PM [facility] GLUCOSE QUANTITATIVE BLOOD XCPT REAGENT STRIP POCT GLUCOSE, DOC SAMANTHA Routine 03/11/2020 4:34 PM EST 03/11/2020 04:34:[address] [facility] TRANSFUSE PLATELET PHERESIS (ONCE) TRANSFUSE PLATELET PHERESIS (ONCE) Routine 03/11/2020 4:09 PM EST 03/11/2020 04:09:[address] [facility] PREPARE PLATELET PHERESIS PREPARE PLATELET PHERESIS Routine 03/11/2020 1:56 PM EST 03/11/2020 01:56:00 PM [facility] BLOOD OCCULT PEROXIDASE ACTV QUAL FECES 1 DETER FECAL OCCULT BLOOD, UPPER GI (HEMOCCULT-SENSA) Routine 03/11/2020 11:49 AM EST 03/11/2020 11:49:[address] [facility] GLUCOSE QUANTITATIVE BLOOD XCPT REAGENT STRIP POCT GLUCOSE, DOC SAMANTHA Routine 03/11/2020 11:40 AM EST 03/11/2020 11:40:[address] [facility] GLUCOSE QUANTITATIVE BLOOD XCPT REAGENT STRIP POCT GLUCOSE, DOC KEJair Routine 03/11/2020 7:37 AM EST 03/11/2020 07:37:[address] [facility] TRANSFUSE RBC (ONCE) TRANSFUSE RBC (ONCE) STAT 03/11/2020 3:12 AM EST 03/11/2020 03:12:[address] [facility] BLOOD TYPING ABO TYPE AND SCREEN STAT 03/11/2020 1:20 AM EST 03/11/2020 01:20:[address] [facility] CULTURE BCT ISOL&PRSMPTV ID ISOLATE EA URINE URINE CULTURE Ro utine 03/11/2020 12:44 AM EST 03/11/2020 12:44:00 AM [facility] BLOOD COUNT COMPLETE AUTOMATED CBC AND DIFFERENTIAL Routine 03/11/2020 12:28 AM EST 03/11/2020 12:28:00 AM [facility] PHOSPHORUS INORGANIC PHOSPHORUS LEVEL Routine 03/11/2020 12:[address] 03/11/2020 12:28:[address] [facility] MAGNESIUM MAGNESIUM LEVEL Routine 03/11/2020 12:28 AM EST 03/11/2020 12:28:[address] [facility] DRUG SCREEN QUALITATIVE VANCOMYCIN VANCOMYCIN, RANDOM Routine 03/11/2020 12:28 AM EST 03/11/2020 12:28:00 AM [facility] BASIC METABOLIC PANEL CALCIUM TOTAL BASIC METABOLIC PANEL Timed 03/11/2020 12:28 AM EST 03/11/2020 12:28:00 AM [facility] GLUCOSE QUANTITATIVE BLOOD XCPT REAGENT STRIP POCT GLUCOSE, DOC KED Routine 03/10/2020 9:05 PM EST 03/10/2020 09:05:[address] [facility] CUL PRSMPTV PTHGNC ORGANISM SCRN W/COLONY ESTIMJ MRSA CULTURE Routine 03/10/2020 7:05 PM EST 03/10/2020 07:05:[address] [facility] XR CHEST FRONTAL ONLY [id number] XR CHEST FRONTAL ONLY [id number] Routine 03/10/2020 6:51 PM EST 03/10/2020 06:51:54 PM [facility] CULTURE BACTERIAL BLOOD AEROBIC W/ID ISOLATES BLOOD CULTURE R outine 03/10/2020 6:45 PM EST 03/10/2020 06:45:00 PM [facility] CULTURE BACTERIAL BLOOD AEROBIC W/ID ISOLATES BLOOD CULTURE R outine 03/10/2020 6:45 PM EST 03/10/2020 06:45:00 PM [facility] GLUCOSE QUANTITATIVE BLOOD XCPT REAGENT STRIP POCT GLUCOSE, DOC KED Routine 03/10/2020 4:57 PM EST 03/10/2020 04:57:[address] [facility] TRANSFUSE RBC (ONCE) TRANSFUSE RBC (ONCE) STAT 03/10/2020 1:38 PM EST 03/10/2020 01:38:[address] [facility] GLUCOSE QUANTITATIVE BLOOD XCPT REAGENT STRIP POCT GLUCOSE, DOC KED Routine 03/10/2020 11:26 AM EST 03/10/2020 11:26:[address] [facility] BLOOD COUNT PLATELET AUTOMATED PLATELET COUNT Routine 9:00 AM EST 03/10/2020 09:00:00 AM [facility] TRANSFUSE PLATELET PHERESIS (ONCE) TRANSFUSE PLATELET PHERESIS (ONCE) Routine 03/10/2020 8:47 AM EST 03/10/2020 08:47:[address] [facility] GLUCOSE QUANTITATIVE BLOOD XCPT REAGENT STRIP POCT GLUCOSE, DOC KED Routine 03/10/2020 7:54 AM EST 03/10/2020 07:54:[address] [facility] PREPARE PLATELET PHERESIS PREPARE PLATELET PHERESIS Routine 03/10/2020 2:17 AM EST 03/10/2020 02:17:00 AM [facility] BLOOD COUNT COMPLETE AUTOMATED CBC AND DIFFERENTIAL Routine 03/10/2020 12:23 AM EST 03/10/2020 12:23:00 AM [facility] PHOSPHORUS INORGANIC PHOSPHORUS LEVEL Routine 03/10/2020 12:[address] 03/10/2020 12:23:[address] [facility] MAGNESIUM MAGNESIUM LEVEL Routine 03/10/2020 12:23 AM EST 03/10/2020 12:23:[address] [facility] BASIC METABOLIC PANEL CALCIUM TOTAL BASIC METABOLIC PANEL Timed 03/10/2020 12:23 AM EST 03/10/2020 12:23:00 AM [facility] GLUCOSE QUANTITATIVE BLOOD XCPT REAGENT STRIP POCT GLUCOSE, DOC KED Routine 03/09/2020 9:16 PM EST 03/09/2020 09:16:[address] [facility] GLUCOSE QUANTITATIVE BLOOD XCPT REAGENT STRIP POCT GLUCOSE, DOC KED Routine 03/09/2020 4:45 PM EST 03/09/2020 04:45:[address] [facility] BLOOD COUNT COMPLETE AUTOMATED CBC AND DIFFERENTIAL Routine 03/09/2020 11:51 AM EST 03/09/2020 11:51:00 AM [facility] FOLIC ACID SERUM FOLATE Routine 03/09/2020 11:51 AM EST 03/09/2020 11:51:[address] [facility] GLUCOSE QUANTITATIVE BLOOD XCPT REAGENT STRIP POCT GLUCOSE, DOC KED Routine 03/09/2020 11:32 AM EST 03/09/2020 11:32:[address] [facility] BLOOD COUNT RETICULOCYTE AUTOMATED RETICULOCYTES Routine 03/09/2020 9:40 AM EST 03/09/2020 09:40:00 AM [facility] CYANOCOBALAMIN VITAMIN B-12 VITAMIN B12 Routine 03/09/2020 9:40 AM EST 03/09/2020 09:40:[address] [facility] THROMBOPLASTIN TIME PARTIAL PLASMA/WHOLE BLOOD PARTIA L THROMBOPLASTIN TIME (PTT) Routine 03/09/2020 9:40 AM EST 03/09/2020 09:40 :[address] [facility] PROTHROMBIN TIME PROTIME INR Routine 03/09/2020 9:40 AM EST 03/09/2020 09:40:[address] [facility] FIBRINOGEN ACTIVITY FIBRINOGEN LEVEL Routine 03/09/2020 9:40 AM ES T 03/09/2020 09:40:[address] [facility] TRANSFUSE RBC (ONCE) TRANSFUSE RBC (ONCE) STAT 03/09/2020 9:28 AM EST 03/09/2020 09:28:[address] [facility] GLUCOSE QUANTITATIVE BLOOD XCPT REAGENT STRIP POCT GLUCOSE, DOC KED Routine 03/09/2020 7:45 AM EST 03/09/2020 07:45:[address] [facility] BLOOD COUNT COMPLETE AUTOMATED CBC Routine 03/09/2020 12:04 A M EST 03/09/2020 12:04:[address] [facility] PHOSPHORUS INORGANIC PHOSPHORUS LEVEL Routine 03/09/2020 12:[address] 03/09/2020 12:04:[address] [facility] MAGNESIUM MAGNESIUM LEVEL Routine 03/09/2020 12:04 AM EST 03/09/2020 12:04:[address] [facility] COMPREHENSIVE METABOLIC PANEL COMPREHENSIVE METABOLIC PANEL Rou mary 03/09/2020 12:04 AM EST 03/09/2020 12:04:00 AM [facility] GLUCOSE QUANTITATIVE BLOOD XCPT REAGENT STRIP POCT GLUCOSE, GLORIA SINGH Routine 03/08/2020 9:28 PM EST 03/08/2020 09:28:[address] [facility] GLUCOSE QUANTITATIVE BLOOD XCPT REAGENT STRIP POCT GLUCOSE, GLORIA SINGH Routine 03/08/2020 4:40 PM EST 03/08/2020 04:40:[address] [facility] EKG 12-LEAD - CMAXX REPORT EKG 12-LEAD - CMAXX REPORT 03/08/2020 2:29 PM EST 03/08/2020 02:29:27 PM [facility] EKG 12-LEAD - CMAXX REPORT EKG 12-LEAD - CMAXX REPORT 03/08/2020 2:29 PM EST 03/08/2020 02:29:27 PM [facility] EKG 12-LEAD EKG 12-LEAD Routine 03/08/2020 2:29 PM EST 03/08/2020 02:29:[address] [facility] BLOOD COUNT COMPLETE AUTOMATED CBC Routine 03/08/2020 11:37 A M EST 03/08/2020 11:37:[address] [facility] GLUCOSE QUANTITATIVE BLOOD XCPT REAGENT STRIP POCT GLUCOSE, GLORIA SINGH Routine 03/08/2020 11:35 AM EST 03/08/2020 11:35:[address] [facility] CT ABDOMEN & PELVIS W/O CONTRAST MATERIAL CT ABDOMEN PELVIS WITHOUT CONTRAST [id number] STAT 03/08/2020 9:46 AM EST 03/08/2020 09:46 :[address] [facility] TRANSFUSE RBC (ONCE) TRANSFUSE RBC (ONCE) STAT 03/08/2020 8:56 AM EST 03/08/2020 08:56:[address] [facility] GLUCOSE QUANTITATIVE BLOOD XCPT REAGENT STRIP POCT GLUCOSE, GLORIA SINGH Routine 03/08/2020 7:48 AM EST 03/08/2020 07:48:[address] [facility] TRANSFUSE RBC (ONCE) TRANSFUSE RBC (ONCE) Routine 03/08/2020 2:44 AM EST 03/08/2020 02:44:[address] [facility] BLOOD COUNT COMPLETE AUTOMATED CBC AND DIFFERENTIAL Routine 03/08/2020 2:30 AM EST 03/08/2020 02:30:00 AM [facility] URIC ACID BLOOD URIC ACID Routine 03/08/2020 2:30 AM EST 03/08/2020 02:30:[address] [facility] PHOSPHORUS INORGANIC PHOSPHORUS LEVEL Routine 03/08/2020 2:[address] 03/08/2020 02:30:[address] [facility] MAGNESIUM MAGNESIUM LEVEL Routine 03/08/2020 2:30 AM EST 03/08/2020 02:30:[address] [facility] LACTATE DEHYDROGENASE LDH LACTATE DEHYDROGENASE Routine 03/08/2020 2:30 AM EST 03/08/2020 02:30:00 AM [facility] HAPTOGLOBIN QUANTITATIVE HAPTOGLOBIN Routine 03/08/2020 2:30 AM ES T 03/08/2020 02:30:[address] [facility] COMPREHENSIVE METABOLIC PANEL COMPREHENSIVE METABOLIC PANEL Rou mary 03/08/2020 2:30 AM EST 03/08/2020 02:30:00 AM [facility] URNLS DIP STICK/TABLET REAGENT AUTO MICROSCOPY URINAL YSIS WITH REFLEX URINE CULTURE Routine 03/07/2020 9:50 PM EST 03/07/2020 09:50 :[address] [facility] BLOOD OCCULT FECAL HGB DETER IA QUAL FECES 1-3 FECAL OCCULT BLOOD, LOWER GI (HEMOCCULT-ICT), FIT TESTING, Routine 03/07/2020 9:48 PM EST 03/07/2020 09:48:[address] [facility] GLUCOSE QUANTITATIVE BLOOD XCPT REAGENT STRIP POCT GLUCOSE, DOC KED Routine 03/07/2020 9:16 PM EST 03/07/2020 09:16:[address] [facility] BLOOD COUNT COMPLETE AUTOMATED CBC AND DIFFERENTIAL Routine 03/07/2020 8:26 PM EST 03/07/2020 08:26:00 PM [facility] BLOOD TYPING ABO HC BLOOD TYPING;ABO Routine 03/07/2020 8:25 PM ES T 03/07/2020 08:25:[address] [facility] EKG 12-LEAD - CMAXX REPORT EKG 12-LEAD - CMAXX REPORT 03/07/2020 7:54 PM EST 03/07/2020 07:54:33 PM [facility] EKG 12-LEAD - CMAXX REPORT EKG 12-LEAD - CMAXX REPORT 03/07/2020 7:54 PM EST 03/07/2020 07:54:33 PM [facility] EKG 12-LEAD EKG 12-LEAD Routine 03/07/2020 7:54 PM EST 03/07/2020 07:54:[address] [facility] EKG 12-LEAD EKG 12-LEAD Routine 03/07/2020 7:54 PM EST 03/07/2020 07:54:[address] [facility] TRANSFUSE RBC (ONCE) TRANSFUSE RBC (ONCE) Routine 03/07/2020 6:09 PM EST 03/07/2020 06:09:[address] [facility] TRANSFUSE PLATELET PHERESIS (ONCE) TRANSFUSE PLATELET PHERESIS (ONCE) Routine 03/07/2020 6:06 PM EST 03/07/2020 06:06:[address] [facility] BLOOD COUNT PLATELET AUTOMATED PLATELET COUNT Routine 021 5:45 PM EST 03/07/2020 05:45:00 PM [facility] GLUCOSE QUANTITATIVE BLOOD XCPT REAGENT STRIP POCT GLUCOSE, DOC KED Routine 03/07/2020 4:45 PM EST 03/07/2020 04:45:[address] [facility] PREPARE PLATELET PHERESIS PREPARE PLATELET PHERESIS Routine 03/07/2020 12:31 PM EST 03/07/2020 12:31:00 PM [facility] GLUCOSE QUANTITATIVE BLOOD XCPT REAGENT STRIP POCT GLUCOSE, DOC KED Routine 03/07/2020 12:21 PM EST 03/07/2020 12:21:[address] [facility] THROMBOPLASTIN TIME PARTIAL PLASMA/WHOLE BLOOD PARTIA L THROMBOPLASTIN TIME (PTT) Routine 03/07/2020 10:47 AM EST 03/07/2020 10:47 :[address] [facility] PROTHROMBIN TIME PROTIME INR Routine 03/07/2020 10:47 AM EST 03/07/2020 10:47:[address] [facility] BLOOD COUNT COMPLETE AUTOMATED CBC AND DIFFERENTIAL Routine 03/07/2020 10:47 AM EST 03/07/2020 10:47:00 AM [facility] TRANSFUSE RBC (ONCE) TRANSFUSE RBC (ONCE) STAT 03/07/2020 9:18 AM EST 03/07/2020 09:18:[address] [facility] GLUCOSE QUANTITATIVE BLOOD XCPT REAGENT STRIP POCT GLUCOSE, DOC KED Routine 03/07/2020 8:08 AM EST 03/07/2020 08:08:[address] [facility] COVID-19 PCR COVID-19 PCR Routine 03/07/2020 12:47 AM EST 03/07/2020 12:47:[address] [facility] CONFIRMATORY TYPE CONFIRMATORY TYPE Routine 03/07/2020 12:47 AM EST 03/07/2020 12:47:[address] [facility] CROSSMATCH, ADDITIONAL CROSSMATCH, ADDITIONAL Routine 021 12:47 AM EST 03/07/2020 12:47:00 AM [facility] BLOOD COUNT COMPLETE AUTOMATED CBC Routine 03/07/2020 12:47 A M EST 03/07/2020 12:47:[address] [facility] BLOOD TYPING ABO TYPE AND SCREEN Routine 03/07/2020 12:47 AM EST 03/07/2020 12:47:[address] [facility] TRIIODOTHYRONINE T3 FREE T3, FREE Routine 03/07/2020 12:47 AM EST 03/07/2020 12:47:[address] [facility] THYROID STIMULATING HORMONE TSH TSH Routine 03/07/2020 12:47 AM EST 03/07/2020 12:47:[address] [facility] THYROXINE FREE T4, FREE Routine 03/07/2020 12:47 AM EST 03/07/2020 12:47:[address] [facility] COMPREHENSIVE METABOLIC PANEL COMPREHENSIVE METABOLIC PANEL Rou mary 03/07/2020 12:47 AM EST 03/07/2020 12:47:00 AM [facility] GLUCOSE QUANTITATIVE BLOOD XCPT REAGENT STRIP POCT GLUCOSE, DOC KED Routine 03/07/2020 12:16 AM EST 03/07/2020 12:16:[address] [facility] XR CHEST FRONTAL ONLY [id number] XR CHEST FRONTAL ONLY [id number] Routine 03/07/2020 12:10 AM EST 03/07/2020 12:10:00 AM [facility] CYTOGENETICS ONCOLOGY, BLOOD AND BONE MARROW CYTOGENE TICS ONCOLOGY, BLOOD AND BONE MARROW Routine 03/07/2020 12:00 AM EST 03/07/2020 12: 00:[address] [facility] HEMATOPATHOLOGY HEMATOPATHOLOGY Routine 03/07/2020 12:00 AM EST 03/07/2020 12:00:[address] [facility] ECG ROUTINE ECG W/LEAST 12 LDS W/I&R POCT AMB EKG Routine 12/21/2019 1:41 PM EST Coronary angioplasty status 12/21/2019 06:41:00 PM EST Coron evans angioplasty status [facility] Coronary angioplasty status BLOOD COUNT COMPLETE AUTO&AUTO DIFRNTL WBC COUNT CBC AND DIFFER ENTIAL Routine 12/19/2019 12/19/2019 12:00:00 AM EST [facility] HEPATIC FUNCTION PANEL HEPATIC FUNCTION PANEL Routine 12/05/2019 12/05/2019 12:00:00 AM EDT [facility] BASIC METABOLIC PANEL CALCIUM TOTAL BASIC METABOLIC PANEL Routine 12/05/2019 12/05/2019 12:00:00 AM EDT [facility] Transitional Care NO CHARGE Visit 06/29/2019 12:00:00 AM EDT [email or web address] ([facility]ly [facility]) LIPID PANEL LIPID PANEL Routine 05/30/2019 05/30/2019 1 2:00:00 AM EDT [facility] POCT GLUCOSE, DOCKED POCT GLUCOSE, DOCKED Routine 04/09/2019 11:54 AM EST 04/09/2019 04:54:[address] [facility] POCT GLUCOSE, DOCKED POCT GLUCOSE, DOCKED Routine 04/09/2019 7:28 AM EST 04/09/2019 12:28:[address] [facility] BLOOD COUNT COMPLETE AUTO&AUTO DIFRNTL WBC COUNT CBC AND DIFFER ENTIAL Routine 04/09/2019 12:33 AM EST 04/09/2019 05:33:[address] [facility] URIC ACID BLOOD URIC ACID Routine 04/09/2019 12:33 AM EST 04/09/2019 05:33:[address] [facility] BASIC METABOLIC PANEL CALCIUM TOTAL BASIC METABOLIC PANEL Routi ne 04/09/2019 12:33 AM EST 04/09/2019 05:33:00 AM EST [facility] GLUCOSE QUANTITATIVE BLOOD XCPT REAGENT STRIP POCT GLUCOSE, DOC KED Routine 04/08/2019 9:08 PM EST 04/09/2019 02:08:[address] [facility] GLUCOSE QUANTITATIVE BLOOD XCPT REAGENT STRIP POCT GLUCOSE, GLORIA SINGH Routine 04/08/2019 4:55 PM EST 04/08/2019 09:55:[address] [facility] GLUCOSE QUANTITATIVE BLOOD XCPT REAGENT STRIP POCT GLUCOSE, GLORIA SINGH Routine 04/08/2019 11:58 AM EST 04/08/2019 04:58:[address] [facility] GLUCOSE QUANTITATIVE BLOOD XCPT REAGENT STRIP POCT GLUCOSE, GLORIA SINGH Routine 04/08/2019 7:44 AM EST 04/08/2019 12:44:[address] [facility] BLOOD COUNT COMPLETE AUTOMATED CBC AND DIFFERENTIAL Routine 04/08/2019 12:46 AM EST 04/08/2019 05:46:00 AM [facility] URIC ACID BLOOD URIC ACID Routine 04/08/2019 12:46 AM EST 04/08/2019 05:46:[address] [facility] BASIC METABOLIC PANEL CALCIUM TOTAL BASIC METABOLIC PANEL Routi ne 04/08/2019 12:46 AM EST 04/08/2019 05:46:00 AM [facility] GLUCOSE QUANTITATIVE BLOOD XCPT REAGENT STRIP POCT GLUCOSE, GLORIA SINGH Routine 04/07/2019 9:44 PM EST 04/08/2019 02:44:[address] [facility] GLUCOSE QUANTITATIVE BLOOD XCPT REAGENT STRIP POCT GLUCOSE, GLORIA SINGH Routine 04/07/2019 4:35 PM EST 04/07/2019 09:35:[address] [facility] GLUCOSE QUANTITATIVE BLOOD XCPT REAGENT STRIP POCT GLUCOSE, GLORIA SINGH Routine 04/07/2019 11:39 AM EST 04/07/2019 04:39:[address] [facility] URIC ACID BLOOD URIC ACID Routine 04/07/2019 9:11 AM EST 04/07/2019 02:11:[address] [facility] TRIIODOTHYRONINE T3 FREE T3, FREE Routine 04/07/2019 9:11 AM EST 04/07/2019 02:11:[address] [facility] THYROXINE FREE T4, FREE Routine 04/07/2019 9:11 AM EST 04/07/2019 02:11:[address] [facility] GLUCOSE QUANTITATIVE BLOOD XCPT REAGENT STRIP POCT GLUCOSE, GLORIA SINGH Routine 04/07/2019 7:42 AM EST 04/07/2019 12:42:[address] [facility] HLA CLASS I&II LOW HLA-A -B -C -DRB1/3/4/5&-DQB1 HLA MOLECULAR MABDR Routine 04/07/2019 12:23 AM EST 04/07/2019 05:23:[address] [facility] IAAD EIA HIV-1 AG W/HIV-1&HIV-2 ANTBDY SINGLE HIV AG AB COMBO S CREEN Routine 04/07/2019 12:23 AM EST 04/07/2019 05:23:[address] [facility] ANTIBODY CYTOMEGALOVIRUS CMV CMV IGG Routine 04/07/2019 12:23 AM EST 04/07/2019 05:23:[address] [facility] MICROSOMAL ANTIBODIES EACH THYROID PEROXIDASE ANTIBODY Routine 04/07/2019 12:23 AM EST 04/07/2019 05:23:00 AM [facility] COPPER COPPER, PLASMA Routine 04/07/2019 12:23 AM EST 04/07/2019 05:23:[address] [facility] ZINC ZINC, PLASMA Routine 04/07/2019 12:23 AM EST 04/07/2019 05:23:[address] [facility] ACUTE HEPATITIS PANEL HEPATITIS PANEL, ACUTE Routine 04/07/2019 1 2:23 AM EST 04/07/2019 05:23:00 AM [facility] BLOOD COUNT COMPLETE AUTOMATED CBC AND DIFFERENTIAL Routine 04/07/2019 12:23 AM EST 04/07/2019 05:23:00 AM [facility] PHOSPHORUS INORGANIC PHOSPHORUS LEVEL Routine 04/07/2019 12:[address] 04/07/2019 05:23:[address] [facility] MAGNESIUM MAGNESIUM LEVEL Routine 04/07/2019 12:23 AM EST 04/07/2019 05:23:[address] [facility] BASIC METABOLIC PANEL CALCIUM TOTAL BASIC METABOLIC PANEL Routi ne 04/07/2019 12:23 AM EST 04/07/2019 05:23:00 AM [facility] GLUCOSE QUANTITATIVE BLOOD XCPT REAGENT STRIP POCT GLUCOSE, DOC KED Routine 04/06/2019 8:59 PM EST 04/07/2019 01:59:[address] [facility] GLUCOSE QUANTITATIVE BLOOD XCPT REAGENT STRIP POCT GLUCOSE, DOC KED Routine 04/06/2019 4:38 PM EST 04/06/2019 09:38:[address] [facility] FLOW CYTOMETRY CELL CYCLE/DNA GENET LEUKEMIA / LYMPHOM A PHENOTYPE, PERIPHERAL BLOOD Routine 04/06/2019 1:40 PM EST 04/06/2019 06:40 :[address] [facility] GLUCOSE QUANTITATIVE BLOOD XCPT REAGENT STRIP POCT GLUCOSE, DOC KED Routine 04/06/2019 11:48 AM EST 04/06/2019 04:48:[address] [facility] NATRIURETIC PEPTIDE PROBNP Routine 04/06/2019 9:54 AM EST 04/06/2019 02:54:[address] [facility] PROTHROMBIN TIME PROTIME INR Routine 04/06/2019 9:54 AM EST 04/06/2019 02:54:[address] [facility] FIBRINOGEN ACTIVITY FIBRINOGEN LEVEL Routine 04/06/2019 9:54 AM ES T 04/06/2019 02:54:[address] [facility] FIBRIN DGRADJ PRODUCTS D-DIMER QUAL/SEMIQUAN D-DIMER, QUANTITAT LESLYE Routine 04/06/2019 9:54 AM EST 04/06/2019 02:54:[address] [facility] BLOOD COUNT RETICULOCYTE AUTOMATED RETICULOCYTES Routine 04/06/2019 9:54 AM EST 04/06/2019 02:54:00 PM [facility] URIC ACID BLOOD URIC ACID Routine 04/06/2019 9:54 AM EST 04/06/2019 02:54:[address] [facility] THYROID STIMULATING HORMONE TSH TSH Routine 04/06/2019 9:54 AM EST 04/06/2019 02:54:[address] [facility] PHOSPHORUS INORGANIC PHOSPHORUS LEVEL Routine 04/06/2019 9:[address] 04/06/2019 02:54:[address] [facility] LACTATE DEHYDROGENASE LDH LACTATE DEHYDROGENASE Routine 04/06/2019 9:54 AM EST 04/06/2019 02:54:00 PM [facility] HAPTOGLOBIN QUANTITATIVE HAPTOGLOBIN Routine 04/06/2019 9:54 AM ES T 04/06/2019 02:54:[address] [facility] FERRITIN FERRITIN LEVEL Routine 04/06/2019 9:54 AM EST 04/06/2019 02:54:[address] [facility] CYANOCOBALAMIN VITAMIN B-12 VITAMIN B12 Routine 04/06/2019 9:54 AM EST 04/06/2019 02:54:[address] [facility] BASIC METABOLIC PANEL CALCIUM TOTAL BASIC METABOLIC PANEL Routi ne 04/06/2019 9:54 AM EST 04/06/2019 02:54:00 PM [facility] EKG 12-LEAD - CMAXX REPORT EKG 12-LEAD - CMAXX REPORT 04/06/2019 9:45 AM EST 04/06/2019 02:45:45 PM [facility] EKG 12-LEAD - CMAXX REPORT EKG 12-LEAD - CMAXX REPORT 04/06/2019 9:45 AM EST 04/06/2019 02:45:45 PM [facility] EKG 12-LEAD EKG 12-LEAD Routine 04/06/2019 9:45 AM EST 04/06/2019 02:45:[address] [facility] ECHO TTHRC R-T 2D W/WOM-MODE COMPL SPEC&COLR DOP ECHOCARDIO GRAM 2D COMPLETE Routine 04/06/2019 8:40 AM EST 04/06/2019 01:40:[address] [facility] GLUCOSE QUANTITATIVE BLOOD XCPT REAGENT STRIP POCT GLUCOSE, DOC KED Routine 04/06/2019 7:47 AM EST 04/06/2019 12:47:[address] [facility] EKG 12-LEAD - CMAXX REPORT EKG 12-LEAD - CMAXX REPORT 04/06/2019 2:43 AM EST 04/06/2019 07:43:24 AM [facility] EKG 12-LEAD - CMAXX REPORT EKG 12-LEAD - CMAXX REPORT 04/06/2019 2:42 AM EST 04/06/2019 07:42:52 AM [facility] EKG 12-LEAD - CMAXX REPORT EKG 12-LEAD - CMAXX REPORT 04/06/2019 2:42 AM EST 04/06/2019 07:42:52 AM [facility] EKG 12-LEAD EKG 12-LEAD Routine 04/06/2019 2:42 AM EST 04/06/2019 07:42:[address] [facility] BLOOD COUNT COMPLETE AUTOMATED CBC AND DIFFERENTIAL Routine 04/06/2019 12:09 AM EST 04/06/2019 05:09:00 AM [facility] COMPREHENSIVE METABOLIC PANEL COMPREHENSIVE METABOLIC PANEL Rou mary 04/06/2019 12:09 AM EST 04/06/2019 05:09:00 AM [facility] CYTOGENETICS ONCOLOGY, BLOOD AND BONE MARROW CYTOGENE TICS ONCOLOGY, BLOOD AND BONE MARROW Routine 04/06/2019 12:00 AM EST 04/06/2019 05: 00:[address] [facility] HEMATOPATHOLOGY HEMATOPATHOLOGY Routine 04/06/2019 12:00 AM EST 04/06/2019 05:00:[address] [facility] RESPIRATORY PANEL RESPIRATORY PANEL Routine 04/05/2019 11:16 PM EST 04/06/2019 04:16:[address] [facility] Results ID Date Data Source [id number] 03/24/2020 07:51:00 AM [facility] Name Value Range Interpretation Code Description Data Cheyenne rce(s) Supporting Document(s) SARS coronavirus 2 RNA [Presence] in Res piratory specimen by JOSE ROBERTO with probe detection NEGATIVE [facility] This lab was ordered by [facility] a nd reported by [facility]. ID Date Data Source [id number] 03/18/2020 04:17:58 PM [facility] Name Value Range Interpretation Code Description Data [place]yenne rce(s) Supporting Document(s) Platelets [#/volume] in Blood by Automated count 18 10*3/uL 150-400 [facility] No significant change since last result called ID Date Data Source [id number] 03/18/2020 01:44:37 PM [facility] Name Value Range Interpretation Code Description Data [place]yenne rce(s) Supporting Document(s) Discharge Summary [facility] [id number] lbm [file] [id number] ID Date Data Source [id number] 03/18/2020 11:51:42 AM [facility] Name Value Range Interpretation Code Description Data Cheyenne rce(s) Supporting Document(s) Glucose [Mass/volume] in Capillary blood by Glucometer 124 mg/dL 70- 140 [facility] ID Date Data Source [id number] 03/20/2020 01:56:04 AM [facility] Performed at [facility], Boby les[address] 03/18/20 Name Value Range Interpretation Code Description Data Cheyenne rce(s) Supporting Document(s) ID Date Data Source [id number] 03/18/2020 09:17:04 AM [facility] Name Value Range Interpretation Code Description Data [place]yenne rce(s) Supporting Document(s) Leukocytes [#/volume] in Blood by Automated count 0.5 10*3/uL 4-10 [facility] No significant change since last result called Erythrocytes [#/volume] in Blood by Automated count 2.78 10*6/uL 4.1- 5.3 L [facility] Hemoglobin [Mass/volume] in Blood 8.3 g/dL 11.5-15.5 L [facility] Hematocrit [Volume Fraction] of Blood by Automated count 23.8 % 3 6-45 L [facility] Erythrocyte mean corpuscular volume [Entitic volume] by Auto mated count 85.3 fL 80-96 [facility] Erythrocyte mean corpuscular hemoglobin [Entitic mass] by Automated count 29.8 pg 27-33 [facility] Erythrocyte mean corpuscular hemoglobin concentration [Mass/volume] by Automated count 34.9 g/[facility] width [Ratio] by Automated count 14.7 % 11.5-14.5 H [facility] Platelets [#/volume] in Blood by Automated count 10 10*3/uL 150-400 [facility] No significant change since last result called ID Date Data Source [id number] 03/18/2020 07:52:46 AM [facility] Name Value Range Interpretation Code Description Data Cheyenne rce(s) Supporting Document(s) Glucose [Mass/volume] in Capillary blood by Glucometer 85 mg/dL 70- 140 [facility] ID Date Data Source [id number] 03/18/2020 01:51:25 AM [facility] Name Value Range Interpretation Code Description Data Cheyenne rce(s) Supporting Document(s) Bicarbonate [Moles/volume] in Serum 22 mmol/L 22-29 [facility] Chloride [Moles/volume] in Serum or Plasma 108 mmol/L 98-107 H [facility] Creatinine [Mass/volume] in Serum or Plasma 1.45 mg/dL 0.50-0.90 [facility] Glucose [Mass/volume] in Serum or Plasma 117 mg/dL 70-140 [facility] Potassium [Moles/volume] in Serum or Plasma 3.6 mmol/L 3.4-5.1 [facility] Sodium [Moles/volume] in Serum or Plasma 138 mmol/L 136-145 [facility] Urea nitrogen [Mass/volume] in Serum or Plasma 26 mg/dL 8-23 H [facility] Anion gap 3 in Serum or Plasma 9 mmol/L 8-15 [facility] Osmolality of Serum or Plasma by calculation 292 mosm/kg 275-300 [facility] Creatinine/Urea nitrogen [Mass Ratio] in Serum or Plasma 18 [facility] Calcium [Mass/volume] in Serum or Plasma 8.0 mg/dL 8.8-10.2 L [facility] Glomerular filtration rate/1.73 sq M pre dicted among non-blacks [Volume Rate/Area] in Serum or Plasma by Creatinine-based formula (MDRD) 37 mL/min/1.73m2 >60 L [facility] Glomerular filtration rate/1.73 sq M pre dicted among blacks [Volume Rate/Area] in Serum or Plasma by Creatinine-based formula (MDRD) 43 mL/min/1.73m2 >60 L [facility] ID Date Data Source [id number] 03/18/2020 01:51:25 AM [facility] Name Value Range Interpretation Code Description Data Cheyenne rce(s) Supporting Document(s) Magnesium [Mass/volume] in Serum or Plasma 1.8 mg/dL 1.6-2.4 [facility] ID Date Data Source [id number] 03/18/2020 01:51:25 AM [facility] Name Value Range Interpretation Code Description Data [place]yenne rce(s) Supporting Document(s) Phosphate [Mass/volume] in Serum or Plasma 3.2 mg/dL 2.5-4.5 [facility] ID Date Data Source [id number] 03/18/2020 02:34:55 AM [facility] Name Value Range Interpretation Code Description Data [place]yenne rce(s) Supporting Document(s) Leukocytes [#/volume] in Blood by Automated count 0.5 10*3/uL 4-10 [facility] No significant change since last result called Erythrocytes [#/volume] in Blood by Automated count 2.27 10*6/uL 4.1- 5.3 L [facility] Hemoglobin [Mass/volume] in Blood 6.7 g/dL 11.5-15.5 L [facility] Hematocrit [Volume Fraction] of Blood by Automated count 19.3 % 3 6-45 [facility] No significant change since last result called Erythrocyte mean corpuscular volume [Entitic volume] by Auto mated count 85.0 fL 80-96 [facility] Erythrocyte mean corpuscular hemoglobin [Entitic mass] by Automated count 29.5 pg 27-33 [facility] Erythrocyte mean corpuscular hemoglobin concentration [Mass/volume] by Automated count 34.7 g/dL 32.0-36.[facility] E[facility]th[facility] distribution width [Ratio] by Automated count 14.7 % 11.5-14.5 H [facility] Platelets [#/volume] in Blood by Automated count 12 10*3/uL 150-400 [facility] No significant change since last result called Differential cell count method - Blood [facility] Neutrophils/100 leukocytes in Blood by Automated count 2 % [facility] Lymphocytes/100 leukocytes in Blood by Automated count 87 % [facility] Monocytes/100 leukocytes in Blood by Automated count 0 % [facility] Eosinophils/100 leukocytes in Blood by Automated count 1 % [facility] Neutrophils [#/volume] in Blood by Automated count 0.01 10*3/uL 1.8-7 .0 L [facility] Lymphocytes [#/volume] in Blood by Automated count 0.44 10*3/uL 1.2-4 .0 L [facility] Monocytes [#/volume] in Blood by Automated count 0.00 10*3/uL 0-0.8 [facility] Eosinophils [#/volume] in Blood by Automated count 0.00 10*3/uL 0-0.5 [facility] Nucleated erythrocytes/100 leukocytes [Ratio] in Blood by Automated count 0 /100{WBCs} 0-0 [facility] Variant lymphocytes/100 leukocytes in Blood by Manual count 4 % [facility] Metamyelocytes/100 leukocytes in Blood by Manual count 0 % [facility] Blasts/100 leukocytes in Blood by Manual count 6 % [facility] Lymphocytes [#/volume] in Blood 0.02 10*3/uL 0 H [facility] Metamyelocytes [#/volume] in Blood by Manual count 0.00 10*3/uL 0-0 [facility] Blasts [#/volume] in Blood by Manual count 0.03 10*3/uL 0-0 H [facility] Anisocytosis [Presence] in Blood by Light microscopy [facility] Poikilocytosis [Presence] in Blood by Light microscopy [facility] ID Date Data Source [id number] 03/17/2020 09:16:29 PM [facility] Value Range Interpretation Code Description Data Cheyenne rce(s) Supporting Document(s) Glucose [Mass/volume] in Capillary blood by Glucometer 104 mg/dL 70- 140 [facility] ID Date Data Source [id number] 03/17/2020 04:47:17 PM [facility] Value Range Interpretation Code Description Data Cheyenne rce(s) Supporting Document(s) Glucose [Mass/volume] in Capillary blood by Glucometer 93 mg/dL 70- 140 [facility] ID Date Data Source [id number] 03/17/2020 04:36:18 PM [facility] Value Range Interpretation Code Description Data [place]yenne rce(s) Supporting Document(s) Platelets [#/volume] in Blood by Automated count 16 10*3/uL 150-400 [facility] No significant change since last result called ID Date Data Source [id number] 03/17/2020 11:34:49 AM [facility] Name Value Range Interpretation Code Description Data [place]yenne rce(s) Supporting Document(s) Glucose [Mass/volume] in Capillary blood by Glucometer 110 mg/dL 70- 140 [facility] ID Date Data Source [id number] 03/19/2020 01:51:30 AM [facility] Name Value Range Interpretation Code Description Data [place]yenne rce(s) Supporting Document(s) Blood bank comment [facility] ID Date Data Source [id number] 03/17/2020 07:41:19 AM [facility] Value Range Interpretation Code Description Data [place]yenne rce(s) Supporting Document(s) Glucose [Mass/volume] in Capillary blood by Glucometer 125 mg/dL 70- 140 [facility] ID Date Data Source [id number] 03/17/2020 06:41:12 AM [facility] XR CHEST FRONTAL ONLY [id number] RESULTI nterpreted by:Dwain Wang, MDPROCEDURE INFORMATION: Exam: XR Chest, 1 View Exam date and time: 03/17/2020 5:22 AM Age: 65 years old 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 COMPARISON: CR XR CHEST FRONTAL ONLY [id number] PORTABLE 03/13/2020 7:59 PM FINDINGS: Tubes, catheters [...] rce(s) Supporting Document(s) ID Date Data Source [id number] 03/20/2020 01:56:04 AM [facility] Name Value Range Interpretation Code Description Data Cheyenne rce(s) Supporting Document(s) ABO and Rh group [Type] in Blood [facility] Blood group antibody screen [Presence] in Serum or Plasma [facility] Blood bank comment [facility] ID Date Data Source [id number] 03/17/2020 04:39:46 AM [facility] Name Value Range Interpretation Code Description Data Cheyenne rce(s) Supporting Document(s) Color of Urine [facility] Clarity of Urine [facility] Specific gravity of Urine by Refractometry automated 1.012 1.003 -1.030 [facility] pH of Urine by Automated test strip 5.0 5.0-8.0 [facility] Protein [Mass/volume] in Urine by Automated test strip Neg [facility] Glucose [Mass/volume] in Urine by Automated test strip Neg [facility] Ketones [Mass/volume] in Urine by Automated test strip Neg [facility] Bilirubin.total [Presence] in Urine by Automated test strip Negative [facility] Hemoglobin [Presence] in Urine by Automated test strip Neg ative A [facility] Leukocyte esterase [Presence] in Urine by Automated test strip Negative [facility] Nitrite [Presence] in Urine by Automated test strip Negati ve [facility] Leukocytes [#/area] in Urine sediment by Automated count 0 /HPF 0 -5 [facility] Erythrocytes [#/area] in Urine sediment by Automated count 0-3 [facility] Bacteria [#/area] in Urine sediment by Automated count Non e [facility] Epithelial cells.squamous [#/area] in Urine sediment by Auto mated count 8 /HPF None [facility] Mucus [#/area] in Urine sediment by Microscopy low power field None [facility] ID Date Data Source [id number] 03/17/2020 01:54:36 AM [facility] Name Value Range Interpretation Code Description Data Cheyenne rce(s) Supporting Document(s) Bicarbonate [Moles/volume] in Serum 22 mmol/L 22-29 [facility] Chloride [Moles/volume] in Serum or Plasma 105 mmol/L 98-107 [facility] Creatinine [Mass/volume] in Serum or Plasma 1.44 mg/dL 0.50-0.90 H [facility] Glucose [Mass/volume] in Serum or Plasma 105 mg/dL 70-140 [facility] Potassium [Moles/volume] in Serum or Plasma 3.8 mmol/L 3.4-5.1 [facility] Sodium [Moles/volume] in Serum or Plasma 136 mmol/L 136-145 [facility] Urea nitrogen [Mass/volume] in Serum or Plasma 28 mg/dL 8-23 H [facility] Anion gap 3 in Serum or Plasma 9 mmol/L 8-15 [facility] Osmolality of Serum or Plasma by calculation 288 mosm/kg 275-300 [facility] Creatinine/Urea nitrogen [Mass Ratio] in Serum or Plasma 19 [facility] Calcium [Mass/volume] in Serum or Plasma 8.4 mg/dL 8.8-10.2 L [facility] Glomerular filtration rate/1.73 sq M pre dicted among non-blacks [Volume Rate/Area] in Serum or Plasma by Creatinine-based formula (MDRD) 37 mL/min/1.73m2 >60 L [facility] Glomerular filtration rate/1.73 sq M pre dicted among blacks [Volume Rate/Area] in Serum or Plasma by Creatinine-based formula (MDRD) 43 mL/min/1.73m2 >60 L [facility] ID Date Data Source [id number] 03/17/2020 01:54:36 AM [facility] Name Value Range Interpretation Code Description Data [place]yenne rce(s) Supporting Document(s) Magnesium [Mass/volume] in Serum or Plasma 1.9 mg/dL 1.6-2.4 [facility] ID Date Data Source [id number] 03/17/2020 01:54:36 AM [facility] Name Value Range Interpretation Code Description Data [place]yenne rce(s) Supporting Document(s) Phosphate [Mass/volume] in Serum or Plasma 2.9 mg/dL 2.5-4.5 [facility] ID Date Data Source [id number] 03/17/2020 02:24:43 AM [facility] Name Value Range Interpretation Code Description Data [place] rce(s) Supporting Document(s) Leukocytes [#/volume] in Blood by Automated count 0.6 10*3/uL 4-10 [facility] Called to and read back by katrina cabrera rn [id number] [id number] at 0141 by 1522 Erythrocytes [#/volume] in Blood by Automated count 2.28 10*6/uL 4.1- 5.3 L [facility] Hemoglobin [Mass/volume] in Blood 6.8 g/dL 11.5-15.5 L [facility] Hematocrit [Volume Fraction] of Blood by Automated count 19.6 % 3 6-45 [facility] Called to and read back by katrina cabrera rn 10 [id number] at 0141 by 1522 Erythrocyte mean corpuscular volume [Entitic volume] by Auto mated count 85.9 fL 80-96 [facility] Erythrocyte mean corpuscular hemoglobin [Entitic mass] by Automated count 29.9 pg 27-33 [facility] Erythrocyte mean corpuscular hemoglobin concentration [Mass/volume] by Automated count 34.8 g/dL 32.0-36.[facility] E[facility]th[facility] distribution width [Ratio] by Automated count 14.8 % 11.5-14.5 H [facility] Platelets [#/volume] in Blood by Automated count 10 10*3/uL 150-400 [facility] Called to and read back by katrina cabrera rn 10 [id number] at 0141 by 1522 Differential cell count method - Blood [facility] Neutrophils/100 leukocytes in Blood by Automated count 2 % [facility] Lymphocytes/100 leukocytes in Blood by Automated count 84 % [facility] Monocytes/100 leukocytes in Blood by Automated count 1 % [facility] Neutrophils [#/volume] in Blood by Automated count 0.01 10*3/uL 1.8-7 .0 L [facility] Lymphocytes [#/volume] in Blood by Automated count 0.51 10*3/uL 1.2-4 .0 L [facility] Monocytes [#/volume] in Blood by Automated count 0.01 10*3/uL 0-0.8 [facility] Variant lymphocytes/100 leukocytes in Blood by Manual count 1 % [facility] Blasts/100 leukocytes in Blood by Manual count 11 % [facility] Lymphocytes [#/volume] in Blood 0.01 10*3/uL 0 H [facility] Blasts [#/volume] in Blood by Manual count 0.06 10*3/uL 0-0 H [facility] Anisocytosis [Presence] in Blood by Light microscopy [facility] Poikilocytosis [Presence] in Blood by Light microscopy [facility] Immature cells/100 leukocytes in Blood 1 % 0 H [facility] UNCLASSIFIED CELL IS ARTIFACT. REVIEWED BY Boby CURRAN MD03/19/20 Unidentified cells [#/volume] in Blood 0.01 10*3/uL 0 H [facility] ID Date Data Source [id number] 03/22/2020 12:17:20 PM [facility] XXX-Imp : PORTMicroorganism XXX Cult : No growth 5 days Name Value Range Interpretation Code Description Data Cheyenne rce(s) Supporting Document(s) ID Date Data Source [id number] 03/22/2020 12:17:20 PM [facility] XXX-Imp : R WRISTMicroorgan ism XXX Cult : No growth 5 days Name Value Range Interpretation Code Description Data Cheyenne rce(s) Supporting Document(s) ID Date Data Source [id number] 03/22/2020 12:17:20 PM [facility] XXX-Imp : L ACMicroorganism XXX Cult : No growth 5 days Name Value Range Interpretation Code Description Data [place]yenne rce(s) Supporting Document(s) ID Date Data Source [id number] 03/16/2020 09:58:55 PM [facility] Value Range Interpretation Code Description Data [place]yenne rce(s) Supporting Document(s) Glucose [Mass/volume] in Capillary blood by Glucometer 123 mg/dL 70- 140 [facility] ID Date Data Source [id number] 03/16/2020 04:31:17 PM [facility] Value Range Interpretation Code Description Data [place]yenne rce(s) Supporting Document(s) Glucose [Mass/volume] in Capillary blood by Glucometer 88 mg/dL 70- 140 [facility] ID Date Data Source [id number] 03/16/2020 11:32:37 AM [facility] Value Range Interpretation Code Description Data [place]enne rce(s) Supporting Document(s) Glucose [Mass/volume] in Capillary blood by Glucometer 124 mg/dL 70- 140 [facility] ID Date Data Source [id number] 03/16/2020 08:05:42 AM [facility] Value Range Interpretation Code Description Data [place]yenne rce(s) Supporting Document(s) Glucose [Mass/volume] in Capillary blood by Glucometer 104 mg/dL 70- 140 [facility] ID Date Data Source [id number] 03/16/2020 01:27:28 AM [facility] Name Value Range Interpretation Code Description Data Cheyenne rce(s) Supporting Document(s) Bicarbonate [Moles/volume] in Serum 23 mmol/L 22-29 [facility] Chloride [Moles/volume] in Serum or Plasma 108 mmol/L 98-107 H [facility] Creatinine [Mass/volume] in Serum or Plasma 1.52 mg/dL 0.50-0.90 H [facility] Glucose [Mass/volume] in Serum or Plasma 151 mg/dL 70-140 H [facility] Potassium [Moles/volume] in Serum or Plasma 4.1 mmol/L 3.4-5.1 [facility] Sodium [Moles/volume] in Serum or Plasma 138 mmol/L 136-145 [facility] Urea nitrogen [Mass/volume] in Serum or Plasma 33 mg/dL 8-23 H [facility] Anion gap 3 in Serum or Plasma 8 mmol/L 8-15 [facility] Osmolality of Serum or Plasma by calculation 297 mosm/kg 275-300 [facility] Creatinine/Urea nitrogen [Mass Ratio] in Serum or Plasma 22 [facility] Calcium [Mass/volume] in Serum or Plasma 8.5 mg/dL 8.8-10.2 L [facility] Glomerular filtration rate/1.73 sq M pre dicted among non-blacks [Volume Rate/Area] in Serum or Plasma by Creatinine-based formula (MDRD) 35 mL/min/1.73m2 >60 L [facility] Glomerular filtration rate/1.73 sq M pre dicted among blacks [Volume Rate/Area] in Serum or Plasma by Creatinine-based formula (MDRD) 41 mL/min/1.73m2 >60 L [facility] ID Date Data Source [id number] 03/16/2020 01:27:28 AM [facility] Name Value Range Interpretation Code Description Data Cheyenne rce(s) Supporting Document(s) Magnesium [Mass/volume] in Serum or Plasma 2.0 mg/dL 1.6-2.4 [facility] ID Date Data Source [id number] 03/16/2020 01:27:28 AM [facility] Value Range Interpretation Code Description Data Cheyenne rce(s) Supporting Document(s) Phosphate [Mass/volume] in Serum or Plasma 3.2 mg/dL 2.5-4.5 [facility] ID Date Data Source [id number] 03/16/2020 02:45:58 AM [facility] Name Value Range Interpretation Code Description Data Cheyenne rce(s) Supporting Document(s) Leukocytes [#/volume] in Blood by Automated count 0.5 10*3/uL 4-10 [facility] Called to and read back by kecia soto rn on 10h at 0120 by 2050 Erythrocytes [#/volume] in Blood by Automated count 2.44 10*6/uL 4.1- 5.3 L [facility] Hemoglobin [Mass/volume] in Blood 7.3 g/dL 11.5-15.5 [facility] Hematocrit [Volume Fraction] of Blood by Automated count 20.8 % 3 6-45 [facility] Called to and read back by kecia soto rn on 10h at 0120 by 2050 Erythrocyte mean corpuscular volume [Entitic volume] by Auto mated count 84.9 fL 80-96 [facility] Erythrocyte mean corpuscular hemoglobin [Entitic mass] by Automated count 30.0 pg 27-33 [facility] Erythrocyte mean corpuscular hemoglobin concentration [Mass/volume] by Automated count 35.4 g/[facility].0-[facility] distribution width [Ratio] by Automated count 14.8 % 11.5-14.5 H [facility] Platelets [#/volume] in Blood by Automated count 18 10*3/uL 150-400 [facility] Called to and read back by kecia soto rn on 10h at 0120 by 2050 Differential cell count method - Blood [facility] Neutrophils/100 leukocytes in Blood by Automated count 1 % [facility] Lymphocytes/100 leukocytes in Blood by Automated count 86 % [facility] Eosinophils/100 leukocytes in Blood by Automated count 1 % [facility] Neutrophils [#/volume] in Blood by Automated count 0.01 10*3/uL 1.8-7 .0 L [facility] Lymphocytes [#/volume] in Blood by Automated count 0.43 10*3/uL 1.2-4 .0 L [facility] Eosinophils [#/volume] in Blood by Automated count 0.01 10*3/uL 0-0.5 [facility] Nucleated erythrocytes/100 leukocytes [Ratio] in Blood by Automated count 1 /100{WBCs} 0-0 H [facility] Variant lymphocytes/100 leukocytes in Blood by Manual count 2 % [facility] Blasts/100 leukocytes in Blood by Manual count 10 % [facility] Lymphocytes [#/volume] in Blood 0.01 10*3/uL 0 H [facility] Blasts [#/volume] in Blood by Manual count 0.05 10*3/uL 0-0 H [facility] Anisocytosis [Presence] in Blood by Light microscopy [facility] Microcytes [Presence] in Blood by Light microscopy [facility] ID Date Data Source [id number] 03/19/2020 02:10:00 PM [facility] Cytogenetics ReportName: PATRICIA COTTON V.MR N: [id number] Number: [id number] Date: 03/15/2020 23:49Received Date: 03/16/2020 09:08Physician(s): LISA VELEZ MD GENTILE, TERESA C,MDCopy To:VJ JONES,DOSpecimediane(s) ReceivedA: Peripheral Blood (U-IF)Clinical HistoryHistory of CMMLTEST REQUESTED/PERFORMED: Fluorescence in situ hybridization - FISH DiagnosisFISH analysis detected monosomy 5 in 41% and trisomy 8 in 6% of nucleiexamined. FISH was negative for deletion/rearrangement of the PDGFRA(4q12) and FGFR1 (8p12) loci; and negative for rearrangement of PDGFRB(1u93-d43)Previous Cytogenetic studies [NS05-571 (bone marrow) and WX14-935(peripheral blood)] showed monosomies 5 and 7, and additional material on17p by chromosome analysis. 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%] and FISH negative for the BCR/ABL1 [t(9;22)]rearrangement.Electronically Signed By Ramses Carl, Ph.D., [facility], Director ofCytogenetics 03/19/2020 14:10:15Gross DescriptionFluorescence in situ Hybridization (FISH)nuc dayday(SCFD2,LNX,PDGFRA,KIT)x2[97/100],(PDGFRBx1)[41/100],(FWAJ9b2)[6/100]Descripti onFluorescence in situ hybridization (FISH) studies showed [...] Normal Abnormal NKCSLSI PDGFRA (4q12) tricolor fusion: DKML5QO, LNX-SO, PDGFRA/KIT-SA 3% 100 2 tricolor fusion (G,O,A): 97% 0 % 3% *LSI PDGFRB (7a76-t22) - BA 3% 100 2Y: 58% 1Y: 41% 1% *LSI FGFR3 (8p12) R/G CEP 8 (D8Z2) - Aqua 3% 100 2RGA: 92% 3RGA: 6% 2% Vendor: [employer] Probes: LSI: Locus Specific Probe; BA: Break Apart; Fluorochromes/ Signals: SG: Spectrum Green; SO: Spectrum [place]; SA:Spectrum Aqua; Y: Yellow Fusion NKCS: Signals [...] rce(s) Supporting Document(s) ID Date Data Source [id number] 03/15/2020 10:18:13 PM [facility] Name Value Range Interpretation Code Description Data Cheyenne rce(s) Supporting Document(s) Glucose [Mass/volume] in Capillary blood by Glucometer 150 mg/dL 70- 140 [facility] ID Date Data Source [id number] 03/15/2020 04:54:40 PM [facility] Name Value Range Interpretation Code Description Data Cheyenne rce(s) Supporting Document(s) Glucose [Mass/volume] in Capillary blood by Glucometer 181 mg/dL 70- 140 H [facility] ID Date Data Source [id number] 03/15/2020 01:05:48 PM [facility] Name Value Range Interpretation Code Description Data Cheyenne rce(s) Supporting Document(s) Leukocytes [#/volume] in Blood by Automated count 0.5 10*3/uL 4-10 [facility] Called to and read back by FELIZ Contreras RN AT 10H AT 1227 BY 1590 Erythrocytes [#/volume] in Blood by Automated count 2.76 10*6/uL 4.1- 5.3 L [facility] Hemoglobin [Mass/volume] in Blood 8.3 g/dL 11.5-15.5 [facility] Hematocrit [Volume Fraction] of Blood by Automated count 23.6 % 3 6-45 L [facility] Erythrocyte mean corpuscular volume [Entitic volume] by Auto mated count 85.7 fL 80-96 [facility] Erythrocyte mean corpuscular hemoglobin [Entitic mass] by Automated count 30.1 pg 27-33 [facility] Erythrocyte mean corpuscular hemoglobin concentration [Mass/volume] by Automated count 35.1 g/dL 32.0-36.0 [facility]th[facility] distribution width [Ratio] by Automated count 14.8 % 11.5-14.5 H [facility] Platelets [#/volume] in Blood by Automated count 29 10*3/uL 150-400 [facility] Called to and read back by FELIZ Contreras RN AT 10H AT 1227 BY 1590 Differential cell count method - Blood [facility] Neutrophils/100 leukocytes in Blood by Automated count 5 % [facility] Lymphocytes/100 leukocytes in Blood by Automated count 77 % [facility] Eosinophils/100 leukocytes in Blood by Automated count 3 % [facility] Neutrophils [#/volume] in Blood by Automated count 0.02 10*3/uL 1.8-7 .0 L [facility] Lymphocytes [#/volume] in Blood by Automated count 0.39 10*3/uL 1.2-4 .0 L [facility] Eosinophils [#/volume] in Blood by Automated count 0.01 10*3/uL 0-0.5 [facility] Blasts/100 leukocytes in Blood by Manual count 15 % [facility] Blasts [#/volume] in Blood by Manual count 0.07 10*3/uL 0-0 H [facility] ID Date Data Source [id number] 03/15/2020 11:51:28 AM [facility] Name Value Range Interpretation Code Description Data Cheyenne rce(s) Supporting Document(s) Glucose [Mass/volume] in Capillary blood by Glucometer 217 mg/dL 70- 140 H [facility] ID Date Data Source [id number] 03/15/2020 08:02:29 AM [facility] Value Range Interpretation Code Description Data Cheyenne rce(s) Supporting Document(s) Glucose [Mass/volume] in Capillary blood by Glucometer 206 mg/dL 70- 140 H [facility] ID Date Data Source [id number] 03/15/2020 01:14:56 AM [facility] Value Range Interpretation Code Description Data Cheyenne rce(s) Supporting Document(s) Bicarbonate [Moles/volume] in Serum 23 mmol/L 22-29 [facility] Chloride [Moles/volume] in Serum or Plasma 106 mmol/L 98-107 [facility] Creatinine [Mass/volume] in Serum or Plasma 1.55 mg/dL 0.50-0.90 H [facility] Glucose [Mass/volume] in Serum or Plasma 249 mg/dL 70-140 H [facility] Potassium [Moles/volume] in Serum or Plasma 4.0 mmol/L 3.4-5.1 [facility] Sodium [Moles/volume] in Serum or Plasma 138 mmol/L 136-145 [facility] Urea nitrogen [Mass/volume] in Serum or Plasma 41 mg/dL 8-23 H [facility] Anion gap 3 in Serum or Plasma 9 mmol/L 8-15 [facility] Osmolality of Serum or Plasma by calculation 304 mosm/kg 275-300 H [facility] Creatinine/Urea nitrogen [Mass Ratio] in Serum or Plasma 26 [facility] Calcium [Mass/volume] in Serum or Plasma 8.1 mg/dL 8.8-10.2 L [facility] Glomerular filtration rate/1.73 sq M pre dicted among non-blacks [Volume Rate/Area] in Serum or Plasma by Creatinine-based formula (MDRD) 34 mL/min/1.73m2 >60 L [facility] Glomerular filtration rate/1.73 sq M pre dicted among blacks [Volume Rate/Area] in Serum or Plasma by Creatinine-based formula (MDRD) 40 mL/min/1.73m2 >60 L [facility] ID Date Data Source [id number] 03/15/2020 01:14:56 AM [facility] Name Value Range Interpretation Code Description Data Cheyenne rce(s) Supporting Document(s) Magnesium [Mass/volume] in Serum or Plasma 2.0 mg/dL 1.6-2.4 [facility] ID Date Data Source [id number] 03/15/2020 01:14:56 AM [facility] Name Value Range Interpretation Code Description Data Cheyenne rce(s) Supporting Document(s) Phosphate [Mass/volume] in Serum or Plasma 3.8 mg/dL 2.5-4.5 [facility] ID Date Data Source [id number] 03/15/2020 03:35:11 AM [facility] Value Range Interpretation Code Description Data Cheyenne rce(s) Supporting Document(s) Leukocytes [#/volume] in Blood by Automated count 0.4 10*3/uL 4-10 [facility] No significant change since last result called Erythrocytes [#/volume] in Blood by Automated count 2.84 10*6/uL 4.1- 5.3 [facility] Hemoglobin [Mass/volume] in Blood 8.5 g/dL 11.5-15.5 [facility] Hematocrit [Volume Fraction] of Blood by Automated count 24.3 % 3 6-45 L [facility] Erythrocyte mean corpuscular volume [Entitic volume] by Auto mated count 85.5 fL 80-96 [facility] Erythrocyte mean corpuscular hemoglobin [Entitic mass] by Automated count 30.1 pg 27-33 [facility] Erythrocyte mean corpuscular hemoglobin concentration [Mass/volume] by Automated count 35.2 g/dL 32.0-36.0 [facility] Erythrocyte distribution width [Ratio] by Automated count 14.7 % 11.5-14.5 H [facility] Platelets [#/volume] in Blood by Automated count 34 10*3/uL 150-400 LL [facility] No significant change since last result called Differential cell count method - Blood [facility] Neutrophils/100 leukocytes in Blood by Automated count 3 % [facility] Lymphocytes/100 leukocytes in Blood by Automated count 75 % [facility] Monocytes/100 leukocytes in Blood by Automated count 3 % [facility] Basophils/100 leukocytes in Blood by Automated count 0 % [facility] Neutrophils [#/volume] in Blood by Automated count 0.01 10*3/uL 1.8-7 .0 L [facility] Lymphocytes [#/volume] in Blood by Automated count 0.30 10*3/uL 1.2-4 .0 L [facility] Monocytes [#/volume] in Blood by Automated count 0.01 10*3/uL 0-0.8 [facility] Basophils [#/volume] in Blood by Automated count 0.00 10*3/uL 0-0.2 [facility] Nucleated erythrocytes/100 leukocytes [Ratio] in Blood by Automated count 0 /100{WBCs} 0-0 [facility] Variant lymphocytes/100 leukocytes in Blood by Manual count 3 % [facility] Myelocytes/100 leukocytes in Blood by Manual count 1 % [facility] Metamyelocytes/100 leukocytes in Blood by Manual count 0 % [facility] Blasts/100 leukocytes in Blood by Manual count 15 % [facility] Lymphocytes [#/volume] in Blood 0.01 10*3/uL 0 H [facility] Myelocytes [#/volume] in Blood by Manual count 0.00 10*3/uL 0-0 [facility] Metamyelocytes [#/volume] in Blood by Manual count 0.00 10*3/uL 0-0 [facility] Blasts [#/volume] in Blood by Manual count 0.06 10*3/uL 0-0 H [facility] Anisocytosis [Presence] in Blood by Light microscopy [facility] ID Date Data Source [id number] 03/14/2020 11:02:51 PM [facility] Name Value Range Interpretation Code Description Data Cheyenne rce(s) Supporting Document(s) Glucose [Mass/volume] in Capillary blood by Glucometer 231 mg/dL 70- 140 H [facility] ID Date Data Source [id number] 03/14/2020 04:38:44 PM [facility] Name Value Range Interpretation Code Description Data Cheyenne rce(s) Supporting Document(s) Glucose [Mass/volume] in Capillary blood by Glucometer 111 mg/dL 70- 140 [facility] ID Date Data Source [id number] 03/14/2020 05:46:30 PM [facility] Name Value Range Interpretation Code Description Data Cheyenne rce(s) Supporting Document(s) Leukocytes [#/volume] in Blood by Automated count 0.5 10*3/uL 4-10 [facility] No significant change since last result called Erythrocytes [#/volume] in Blood by Automated count 2.22 10*6/uL 4.1- 5.3 [facility] Hemoglobin [Mass/volume] in Blood 6.6 g/dL 11.5-15.5 [facility] Hematocrit [Volume Fraction] of Blood by Automated count 19.3 % 3 6-45 [facility] No significant change since last result called Erythrocyte mean corpuscular volume [Entitic volume] by Auto mated count 86.8 fL 80-96 [facility] Erythrocyte mean corpuscular hemoglobin [Entitic mass] by Automated count 29.9 pg 27-33 [facility] Erythrocyte mean corpuscular hemoglobin concentration [Mass/volume] by Automated count 34.4 g/dL 32.0-36.0 [facility] Erythrocyte distribution width [Ratio] by Automated count 14.5 % 11.5-14.5 [facility] Platelets [#/volume] in Blood by Automated count 36 10*3/uL 150-400 [facility] No significant change since last result called Differential cell count method - Blood [facility] Neutrophils/100 leukocytes in Blood by Automated count 1 % [facility] Lymphocytes/100 leukocytes in Blood by Automated count 85 % [facility] Neutrophils [#/volume] in Blood by Automated count 0.01 10*3/uL 1.8-7 .0 [facility] Lymphocytes [#/volume] in Blood by Automated count 0.43 10*3/uL 1.2-4 .0 L [facility] Variant lymphocytes/100 leukocytes in Blood by Manual count 1 % [facility] Myelocytes/100 leukocytes in Blood by Manual count 1 % [facility] Blasts/100 leukocytes in Blood by Manual count 12 % [facility] Lymphocytes [#/volume] in Blood 0.01 10*3/uL 0 H [facility] Myelocytes [#/volume] in Blood by Manual count 0.01 10*3/uL 0-0 H [facility] Blasts [#/volume] in Blood by Manual count 0.06 10*3/uL 0-0 H [facility] ID Date Data Source [id number] 03/14/2020 03:07:19 PM [facility] Name Value Range Interpretation Code Description Data Cheyenne rce(s) Supporting Document(s) Glucose [Mass/volume] in Capillary blood by Glucometer 104 mg/dL 70- 140 [facility] ID Date Data Source [id number] 03/14/2020 02:13:18 PM [facility] Name Value Range Interpretation Code Description Data Cheyenne rce(s) Supporting Document(s) [facility] [id number]/NMHvqVXXwe9EpEHclOEe0FMmnZRMyR9LpBUL7tZ6uXAN5RVvTQvNiFqHeWNF9 lbm [file] ICAgICAgICAgICAgICAgICAgICAgICAgICAgICAgIC AgICAgICAgICAgICAgICAgICAgICAgICAgICAgICAgICAgICAgICAgICAgICAgDQogICAgICAgICAgIC AgICAgICAgICAgICAgICAgICAgICAgICAgICAgICAgICAgICAgICAgICAgICAgICAgICAgICAgICAgIC AgICAgICAgICAgICAgICAgICAgICAgICAgICAgDQog ICAgICAgICAgICAgICAgICAgICAgICAgICAgICAgICAgICAgICAgICAgICAgICAgICAgICAgICAgICAg ICAgICAgICAgICAgICAgICAgICAgICAgICAgICAgICAgICAgICAgDQogICAgICAgICAgICAgICAgICAg ICAgICAgICAgICAgICAgICAgICAgICAgICAgICAgIC AgICAgICAgICAgICAgICAgICAgICAgICAgICAgICAgICAgICAgICAgICAgICAgICAgDQogICAgICAgIC AgICAgICAgICAgICAgICAgICAgICAgICAgICAgICAgICAgICAgICAgICAgICAgICAgICAgICAgICAgIC AgICAgICAgICAgICAgICAgICAgICAgICAgICAgICAg DQogICAgICAgICAgICAgICAgICAgICAgICAgICAgICAgICAgICAgICAgICAgICAgICAgICAgICAgICAg ICAgICAgICAgICAgICAgICAgICAgICAgICAgICAgICAgICAgICAgICAgDQogICAgICAgICAgICAgICAg ICAgICAgICAgICAgICAgICAgICAgICAgICAgICAgIC AgICAgICAgICAgICAgICAgICAgICAgICAgICAgICAgICAgICAgICAgICAgICAgICAgICAgDQogICAgIC AgICAgICAgICAgICAgICAgICAgICAgICAgICAgICAgICAgICAgICAgICAgICAgICAgICAgICAgICAgIC AgICAgICAgICAgICAgICAgICAgICAgICAgICAgICAg ICAgDQogICAgICAgICAgICAgICAgICAgICAgICAgICAgICAgICAgICAgICAgICAgICAgICAgICAgICAg ICAgICAgICAgICAgICAgICAgICAgICAgICAgICAgICAgICAgICAgICAgICAgDQogICAgICAgICAgICAg ICAgICAgICAgICAgICAgICAgICAgICAgICAgICAgIC BaVLIlAUJvSLYsALOdCUMiMHIdRHDgEGHdPDCnOYHtRYFeXPXqIACrXRRlMQOqKAYpULRoMVUgWSs6B5 hlMBBcPLDvCS1nBIx2Sd7+RLkWHzDqWWG3azPsvH2WDZ3bv2XzXGibYNIbe3RmRFr2BR2XSQYdWVdxSU 2ZECbjyc5LQQBiKWFszRGWm5xmOfAmZDH6SAJmXpyd NJ9SWUXaE3vdhsZyNKEiXQPJZUbrIDKRLBatZMRUWOViODGnCvUcGgSmZTCtQBRvDLMXTS2MBhNqP6Hi tP62LQHOIk4+TTlfziKwInxTSbA7SPQin1XuLPr2CD6KIUYkTtsfc0OuWuDvUVGZECzySM8YVZE3TLLd VZCvGp5FSJNtH435shYfCN1SKb9AXzJvMP4tgo8RGl LeJZSwOvnTLqb6IOcoFV2QmYIxYSnHl13ciWi7lzCteEZVYPTlfiWFe7ceMNJCWWTzoHViSoN8QzGxCg NiBAy0OzcjPG5gAPzyBQ6NLSW8SCqeINFuLTLlK4eNFvSwTMLoIbZbwXtiRX4KWdHxR4KtfzAxsHSxSX AwIFINCj4+TFpdvmYyKghRUcMuLOWxs1RbRTq2RL6I SOXzODisYR6DYFRprN2kJCjzLF2LGuHbRnEeJEYZPyYbO77ebXEjXSd2J6YkLnVjVQQyWuksKKRnCDmf TmFtZXMgWyBdDQogID4+ID4+QBmnAP1RLJalujJySYAvLy8YMDBxHZUiRT6cBSGwOPDkV3Y2xYduWYYW DdBlS4gvnuwsFW8dFRBxR757jIolstNoDTT7COPoId 6NKLDtBYD3IYVuvMTbQujeMTMJGEohJP5HaYFyHHR1sU5uSMouFKPwHPLoA8sUXtGibYymOI18rHswco VsbCBdDQo+Zj1WUO0hf4GyLXb1onYnLRsiGYFsDLmgZZAaHBUjLULpHJN4FWO2OSROUgAkFKKoUDVpDY rrXPPmZKNavt4HBICsQQCpTINjDpQjMCFgOFYeBNqx BGVjLBUqLLG8HVKmXNFtOF7HDuNaJWUaVTWcFKydMROrNCUgva8HOMGkVIAeSOMnOOYzAYEpFWYtVSfu BTNnGFW9AHP4FWYiUOIgHS6BRhFaGYCmLHdvTIVsXMOpHWAuqw3NPLIdFGFuSsLkJBNzOCSuZVVcFVdt DDKoPVNpVnB1GHOvCNYhIV9AZgPrPQSlDCA1YlMxOE AsBIBtfb5SOYSsDSXyQlH8YmNgVHQyECZvGDmjSFFmTBV5FOIrYRYkWDLpAV6FAwRvDMCrZhF1HzJzGX XjXRZdrb1COILxMQEwVYy0PmZyWQDnLNUqMPsqKTZtGBP7EjTxECHjFNPgKJ4VFqUtBXMwIiW3MmcbKL PuBDXzuf4LGLUpJKVtYGW5HCJeAUYeFXEyOImtTPLm EPD6IRb3GVQoRZXtUC6BAbPcCEEcOmU3TrifSGQlAKScxx7WLXOrYAQpOddpHUUgXJIiJWWvGNonTYSi XWU8WQDjKOLcYBJoPH3QBeOeVOXbIcfsUOtcCKIoDTPhln1GLELeCRJtEUZlTsPgHNSyCZYiPWjhHQCp FKR9SUIcZPHmOKIpPJ2GMvIyTEGiEoelPhWvJHDbAP Eqph0ZEMAyATAmQCL5NEMzMKCmMNNbLDzgATNiTBW4UYG3WFDtBKCuCE5NApMtRDNjJbu6FKHsTWPxQG Otrp9AXQEsLVQ6AWK4IiClKJWcZADzDNatALAzOJZmWmL5PSWoGFEzGH7RQeFzYBPjXOS1NDejTKWaOI Wbwh4PqVIczRosbw4FQQfCUw2LjFtzNOUoSAndZh2h oCEsLLVvOEJZUk4IvyPgZPUaLMQGMSihENKiHDT7P9QjMfLnB9AqWFjpQXO7RpOtQkVkOEB3LPZ2RvIe PeU4YflfSJMdNIUpO9DuTKSzXxb9WXWhTMDuJPp0PwOcJsC+UT2sXEz+Vd7Fk2YbvoC5cfBvRBm0CUy4 QR7CVKRDQ4DPSv== ID Date Data Source [id number] 03/14/2020 11:42:19 AM [facility] Name Value Range Interpretation Code Description Data Cheyenne rce(s) Supporting Document(s) Glucose [Mass/volume] in Capillary blood by Glucometer 95 mg/dL 70- 140 [facility] ID Date Data Source [id number] 03/14/2020 09:29:25 AM [facility] Name Value Range Interpretation Code Description Data Cheyenne rce(s) Supporting Document(s) History and Physical [facility] [id number]/MAYmpBXRna0InXIkpIGy8RFzdESWhZ4DmEFK1qQ7rRKX8MUgUVlNsOrRkXLC3 lbm [file] [id number]TFe== ID Date Data Source [id number] 03/14/2020 08:03:14 AM [facility] Name Value Range Interpretation Code Description Data Cheyenne rce(s) Supporting Document(s) Glucose [Mass/volume] in Capillary blood by Glucometer 98 mg/dL 70- 140 [facility] ID Date Data Source [id number] 03/16/2020 07:27:48 AM EST [facility] Name Value Range Interpretation Code Description Data Cheyenne rce(s) Supporting Document(s) Blood bank comment [facility] ID Date Data Source [id number] 03/14/2020 05:18:37 AM [facility] Name Value Range Interpretation Code Description Data Cheyenne rce(s) Supporting Document(s) Platelets [#/volume] in Blood by Automated count 22 10*3/uL 150-400 [facility] No significant change since last result called ID Date Data Source [id number] 03/14/2020 03:00:23 AM [facility] Name Value Range Interpretation Code Description Data Cheyenne rce(s) Supporting Document(s) Leukocytes [#/volume] in Blood by Automated count 0.7 10*3/uL 4-10 [facility] Called to and read back by Eve Sierra RN on 10H at 0105 by 1521 Erythrocytes [#/volume] in Blood by Automated count 2.38 10*6/uL 4.1- 5.3 L [facility] Hemoglobin [Mass/volume] in Blood 7.2 g/dL 11.5-15.5 [facility] Hematocrit [Volume Fraction] of Blood by Automated count 20.2 % 3 6-45 [facility] Called to and read back by Eve Sierra RN on 10H at 0105 by 1521 Erythrocyte mean corpuscular volume [Entitic volume] by Auto mated count 84.7 fL 80-96 [facility] Erythrocyte mean corpuscular hemoglobin [Entitic mass] by Automated count 30.2 pg 27-33 [facility] Erythrocyte mean corpuscular hemoglobin concentration [Mass/volume] by Automated count 35.7 g/dL 32.0-36.0 [facility] distribution width [Ratio] by Automated count 14.6 % 11.5-14.5 H [facility] Platelets [#/volume] in Blood by Automated count 11 10*3/uL 150-400 [facility] Called to and read back by Eve Sierra RN on 10H at 0105 by 1521 Differential cell count method - Blood [facility] Neutrophils/100 leukocytes in Blood by Automated count 1 % [facility] Lymphocytes/100 leukocytes in Blood by Automated count 82 % [facility] Monocytes/100 leukocytes in Blood by Automated count 0 % [facility] Eosinophils/100 leukocytes in Blood by Automated count 1 % [facility] Neutrophils [#/volume] in Blood by Automated count 0.01 10*3/uL 1.8-7 .0 L [facility] Lymphocytes [#/volume] in Blood by Automated count 0.57 10*3/uL 1.2-4 .0 L [facility] Monocytes [#/volume] in Blood by Automated count 0.00 10*3/uL 0-0.8 [facility] Eosinophils [#/volume] in Blood by Automated count 0.00 10*3/uL 0-0.5 [facility] Nucleated erythrocytes/100 leukocytes [Ratio] in Blood by Automated count 0 /100{WBCs} 0-0 [facility] Variant lymphocytes/100 leukocytes in Blood by Manual count 6 % [facility] Blasts/100 leukocytes in Blood by Manual count 10 % [facility] Lymphocytes [#/volume] in Blood 0.04 10*3/uL 0 H [facility] Blasts [#/volume] in Blood by Manual count 0.07 10*3/uL 0-0 H [facility] Anisocytosis [Presence] in Blood by Light microscopy [facility] Poikilocytosis [Presence] in Blood by Light microscopy [facility] ID Date Data Source [id number] 03/14/2020 01:25:37 AM [facility] Name Value Range Interpretation Code Description Data Cheyenne rce(s) Supporting Document(s) Phosphate [Mass/volume] in Serum or Plasma 2.8 mg/dL 2.5-4.5 [facility] ID Date Data Source [id number] 03/14/2020 01:25:37 AM [facility] Name Value Range Interpretation Code Description Data Cheyenne rce(s) Supporting Document(s) Magnesium [Mass/volume] in Serum or Plasma 1.7 mg/dL 1.6-2.4 [facility] ID Date Data Source [id number] 03/14/2020 01:25:37 AM [facility] Name Value Range Interpretation Code Description Data Cheyenne rce(s) Supporting Document(s) Bicarbonate [Moles/volume] in Serum 22 mmol/L 22-29 [facility] Chloride [Moles/volume] in Serum or Plasma 104 mmol/L 98-107 [facility] Creatinine [Mass/volume] in Serum or Plasma 1.66 mg/dL 0.50-0.90 H [facility] Glucose [Mass/volume] in Serum or Plasma 123 mg/dL 70-140 [facility] Potassium [Moles/volume] in Serum or Plasma 3.3 mmol/L 3.4-5.1 L [facility] Sodium [Moles/volume] in Serum or Plasma 134 mmol/L 136-145 L [facility] Urea nitrogen [Mass/volume] in Serum or Plasma 44 mg/dL 8-23 H [facility] Anion gap 3 in Serum or Plasma 7 mmol/L 8-15 L [facility] Osmolality of Serum or Plasma by calculation 290 mosm/kg 275-300 [facility] Creatinine/Urea nitrogen [Mass Ratio] in Serum or Plasma 27 [facility] Calcium [Mass/volume] in Serum or Plasma 8.1 mg/dL 8.8-10.2 L [facility] Glomerular filtration rate/1.73 sq M pre dicted among non-blacks [Volume Rate/Area] in Serum or Plasma by Creatinine-based formula (MDRD) 31 mL/min/1.73m2 >60 L [facility] Glomerular filtration rate/1.73 sq M pre dicted among blacks [Volume Rate/Area] in Serum or Plasma by Creatinine-based formula (MDRD) 36 mL/min/1.73m2 >60 L [facility] ID Date Data Source [id number] 03/13/2020 09:31:16 PM [facility] Value Range Interpretation Code Description Data Cheyenne rce(s) Supporting Document(s) Glucose [Mass/volume] in Capillary blood by Glucometer 155 mg/dL 70- 140 H [facility] ID Date Data Source [id number] 03/18/2020 10:15:58 AM [facility] XXX-Imp : PORTMicroorganism XXX Cult : No growth 5 days Name Value Range Interpretation Code Description Data Cheyenne rce(s) Supporting Document(s) ID Date Data Source [id number] 03/18/2020 10:15:58 AM [facility] XXX-Imp : R ARMMicroorganis m XXX Cult : No growth 5 days Name Value Range Interpretation Code Description Data Cheyenne rce(s) Supporting Document(s) ID Date Data Source [id number] 03/13/2020 09:20:34 PM [facility] Value Range Interpretation Code Description Data Cheyenne rce(s) Supporting Document(s) Color of Urine [facility] Clarity of Urine [facility] Specific gravity of Urine by Refractometry automated 1.009 1.003 -1.030 [facility] pH of Urine by Automated test strip 5.0 5.0-8.0 [facility] Protein [Mass/volume] in Urine by Automated test strip Neg [facility] Glucose [Mass/volume] in Urine by Automated test strip Neg [facility] Ketones [Mass/volume] in Urine by Automated test strip Neg [facility] Bilirubin.total [Presence] in Urine by Automated test strip Negative [facility] Hemoglobin [Presence] in Urine by Automated test strip Neg ative A [facility] Leukocyte esterase [Presence] in Urine by Automated test strip Negative [facility] Nitrite [Presence] in Urine by Automated test strip Negati ve [facility] Leukocytes [#/area] in Urine sediment by Automated count 0 -5 [facility] Erythrocytes [#/area] in Urine sediment by Automated count 0-3 [facility] Epithelial cells.squamous [#/area] in Urine sediment by Automate d count None A [facility] ID Date Data Source [id number] 03/18/2020 10:15:58 AM [facility] C[facility] XXX-Imp : L ARMMicroorganis m XXX Cult : No growth 5 days Name Value Range Interpretation Code Description Data Cheyenne rce(s) Supporting Document(s) ID Date Data Source [id number] 03/13/2020 08:14:35 PM [facility] XR CHEST FRONTAL ONLY [id number] RESULTI nterpreted by:Edwin Spencer, MDPROCEDURE INFORMATION: Exam: XR Chest, 1 View Exam date and time: 03/13/2020 8:08 PM Age: 65 years old 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 COMPARISON: DX XR CHEST FRONTAL ONLY [id number] PORTABLE 03/10/2020 6:45 PM FINDINGS: Tubes, catheters [...] rce(s) Supporting Document(s) ID Date Data Source [id number] 03/13/2020 04:44:22 PM [facility] Name Value Range Interpretation Code Description Data Cheyenne rce(s) Supporting Document(s) Glucose [Mass/volume] in Capillary blood by Glucometer 130 mg/dL 70- 140 [facility] ID Date Data Source [id number] 03/16/2020 07:27:48 AM [facility] Performed at [facility], Amira Franks [place] ON 10H AT 0653 Name Value Range Interpretation Code Description Data Cheyenne rce(s) Supporting Document(s) ID Date Data Source [id number] 03/13/2020 11:39:55 AM [facility] Name Value Range Interpretation Code Description Data Cheyenne rce(s) Supporting Document(s) Glucose [Mass/volume] in Capillary blood by Glucometer 141 mg/dL 70- 140 H [facility] ID Date Data Source [id number] 03/13/2020 12:59:05 PM [facility] Name Value Range Interpretation Code Description Data Cheyenne rce(s) Supporting Document(s) Leukocytes [#/volume] in Blood by Automated count 0.6 10*3/uL 4-10 [facility] Called to and read back by KECIA SPENCER RN 10 [id number] Erythrocytes [#/volume] in Blood by Automated count 2.71 10*6/uL 4.1- 5.3 [facility] Hemoglobin [Mass/volume] in Blood 8.2 g/dL 11.5-15.5 L [facility] Hematocrit [Volume Fraction] of Blood by Automated count 23.2 % 3 6-45 L [facility] Erythrocyte mean corpuscular volume [Entitic volume] by Auto mated count 85.6 fL 80-96 [facility] Erythrocyte mean corpuscular hemoglobin [Entitic mass] by Automated count 30.3 pg 27-33 [facility] Erythrocyte mean corpuscular hemoglobin concentration [Mass/volume] by Automated count 35.3 g/dL 32.0-36.0 [facility] Erythrocyte distribution width [Ratio] by Automated count 14.7 % 11.5-14.5 H [facility] Platelets [#/volume] in Blood by Automated count 16 10*3/uL 150-400 LL [facility] Called to and read back by KECIA SPENCER RN [facility] [id number] Differential cell count method - Blood [facility] Neutrophils/100 leukocytes in Blood by Automated count 1 % [facility] Lymphocytes/100 leukocytes in Blood by Automated count 79 % [facility] Monocytes/100 leukocytes in Blood by Automated count 1 % [facility] Eosinophils/100 leukocytes in Blood by Automated count 1 % [facility] Basophils/100 leukocytes in Blood by Automated count 1 % [facility] Neutrophils [#/volume] in Blood by Automated count 0.00 10*3/uL 1.8-7 .0 L [facility] Lymphocytes [#/volume] in Blood by Automated count 0.46 10*3/uL 1.2-4 .0 L [facility] Monocytes [#/volume] in Blood by Automated count 0.01 10*3/uL 0-0.8 [facility] Eosinophils [#/volume] in Blood by Automated count 0.01 10*3/uL 0-0.5 [facility] Basophils [#/volume] in Blood by Automated count 0.00 10*3/uL 0-0.2 [facility] Nucleated erythrocytes/100 leukocytes [Ratio] in Blood by Automated count 0 /100{WBCs} 0-0 [facility] Variant lymphocytes/100 leukocytes in Blood by Manual count 5 % [facility] Myelocytes/100 leukocytes in Blood by Manual count 1 % [facility] Metamyelocytes/100 leukocytes in Blood by Manual count 0 % [facility] Blasts/100 leukocytes in Blood by Manual count 11 % [facility] Immature lymphocytes [Presence] in Blood by Manual count 0 % [facility] Lymphocytes [#/volume] in Blood 0.03 10*3/uL 0 H [facility] Myelocytes [#/volume] in Blood by Manual count 0.00 10*3/uL 0-0 [facility] Metamyelocytes [#/volume] in Blood by Manual count 0.00 10*3/uL 0-0 [facility] Blasts [#/volume] in Blood by Manual count 0.07 10*3/uL 0-0 H [facility] Abnormal lymphocytes [#/volume] in Blood 0.00 10*3/uL 0-0 [facility] Poikilocytosis [Presence] in Blood by Light microscopy [facility] Rouleaux [Presence] in Blood by Light microscopy [facility] Dwarf Megakaryocyte 3 % 0-0 H [facility] ID Date Data Source [id number] 03/13/2020 07:43:20 AM [facility] Name Value Range Interpretation Code Description Data Cheyenne rce(s) Supporting Document(s) Glucose [Mass/volume] in Capillary blood by Glucometer 113 mg/dL 70- 140 [facility] ID Date Data Source [id number] 03/13/2020 02:10:44 AM [facility] Value Range Interpretation Code Description Data Cheyenne rce(s) Supporting Document(s) Phosphate [Mass/volume] in Serum or Plasma 3.5 mg/dL 2.5-4.5 [facility] ID Date Data Source [id number] 03/13/2020 02:10:44 AM [facility] Value Range Interpretation Code Description Data Cheyenne rce(s) Supporting Document(s) Magnesium [Mass/volume] in Serum or Plasma 1.8 mg/dL 1.6-2.4 [facility] ID Date Data Source [id number] 03/13/2020 02:10:44 AM [facility] Value Range Interpretation Code Description Data Cheyenne rce(s) Supporting Document(s) Bicarbonate [Moles/volume] in Serum 19 mmol/L 22-29 L [facility] Chloride [Moles/volume] in Serum or Plasma 109 mmol/L 98-107 H [facility] Creatinine [Mass/volume] in Serum or Plasma 1.78 mg/dL 0.50-0.90 H [facility] Glucose [Mass/volume] in Serum or Plasma 134 mg/dL 70-140 [facility] Potassium [Moles/volume] in Serum or Plasma 3.6 mmol/L 3.4-5.1 [facility] Sodium [Moles/volume] in Serum or Plasma 136 mmol/L 136-145 [facility] Urea nitrogen [Mass/volume] in Serum or Plasma 42 mg/dL 8-23 H [facility] Anion gap 3 in Serum or Plasma 8 mmol/L 8-15 [facility] Osmolality of Serum or Plasma by calculation 294 mosm/kg 275-300 [facility] Creatinine/Urea nitrogen [Mass Ratio] in Serum or Plasma 24 [facility] Calcium [Mass/volume] in Serum or Plasma 8.0 mg/dL 8.8-10.2 L [facility] Glomerular filtration rate/1.73 sq M pre dicted among non-blacks [Volume Rate/Area] in Serum or Plasma by Creatinine-based formula (MDRD) 29 mL/min/1.73m2 >60 L [facility] Glomerular filtration rate/1.73 sq M pre dicted among blacks [Volume Rate/Area] in Serum or Plasma by Creatinine-based formula (MDRD) 33 mL/min/1.73m2 >60 L [facility] ID Date Data Source [id number] 03/13/2020 12:18:00 PM [facility] Name Value Range Interpretation Code Description Data Cheyenne rce(s) Supporting Document(s) Blood bank comment [facility] ID Date Data Source [id number] 03/13/2020 12:01:00 AM [facility] Name Value Range Interpretation Code Description Data Cheyenne rce(s) Supporting Document(s) Leukocytes [#/volume] in Blood by Automated count 0.5 10*3/uL 4-10 [facility] No significant change since last result called Erythrocytes [#/volume] in Blood by Automated count 2.20 10*6/uL 4.1- 5.3 [facility] Hemoglobin [Mass/volume] in Blood 6.8 g/dL 11.5-15.5 [facility] Hematocrit [Volume Fraction] of Blood by Automated count 19.1 % 3 6-45 [facility] No significant change since last result called Erythrocyte mean corpuscular volume [Entitic volume] by Auto mated count 86.6 fL 80-96 [facility] Erythrocyte mean corpuscular hemoglobin [Entitic mass] by Automated count 30.8 pg 27-33 [facility] Erythrocyte mean corpuscular hemoglobin concentration [Mass/volume] by Automated count 35.6 g/dL 32.0-36.0 [facility] Erythrocyte distribution width [Ratio] by Automated count 14.8 % 11.5-14.5 H [facility] Platelets [#/volume] in Blood by Automated count 26 10*3/uL 150-400 [facility] No significant change since last result called Differential cell count method - Blood [facility] Lymphocytes/100 leukocytes in Blood by Automated count 85 % [facility] Monocytes/100 leukocytes in Blood by Automated count 1 % [facility] Lymphocytes [#/volume] in Blood by Automated count 0.42 10*3/uL 1.2-4 .0 L [facility] Monocytes [#/volume] in Blood by Automated count 0.00 10*3/uL 0-0.8 [facility] Variant lymphocytes/100 leukocytes in Blood by Manual count 3 % [facility] Myelocytes/100 leukocytes in Blood by Manual count 1 % [facility] Blasts/100 leukocytes in Blood by Manual count 10 % [facility] Lymphocytes [#/volume] in Blood 0.01 10*3/uL 0 H [facility] Myelocytes [#/volume] in Blood by Manual count 0.00 10*3/uL 0-0 [facility] Blasts [#/volume] in Blood by Manual count 0.05 10*3/uL 0-0 H [facility] Anisocytosis [Presence] in Blood by Light microscopy [facility] ID Date Data Source [id number] 03/12/2020 09:21:29 PM [facility] Value Range Interpretation Code Description Data Cheyenne rce(s) Supporting Document(s) Glucose [Mass/volume] in Capillary blood by Glucometer 184 mg/dL 70- 140 [facility] ID Date Data Source [id number] 03/12/2020 04:53:33 PM [facility] Value Range Interpretation Code Description Data Cheyenne rce(s) Supporting Document(s) Glucose [Mass/volume] in Capillary blood by Glucometer 166 mg/dL 70- 140 [facility] ID Date Data Source [id number] 03/14/2020 07:22:17 AM [facility] Value Range Interpretation Code Description Data Cheyenne rce(s) Supporting Document(s) Blood bank comment [facility] ID Date Data Source [id number] 03/12/2020 03:29:37 PM [facility] Value Range Interpretation Code Description Data Cheyenne rce(s) Supporting Document(s) Platelets [#/volume] in Blood by Automated count 18 10*3/uL 150-400 [facility] No significant change since last result called ID Date Data Source [id number] 03/12/2020 12:44:54 PM [facility] NM GI BLOOD LOSS IMAGING [id number] RESU LTInterpreted by:Liliana Stevenson MDHISTORY: 65-year-old woman [...] rce(s) Supporting Document(s) ID Date Data Source [id number] 03/12/2020 12:35:41 PM [facility] Name Value Range Interpretation Code Description Data Cheyenne rce(s) Supporting Document(s) Glucose [Mass/volume] in Capillary blood by Glucometer 131 mg/dL 70- 140 [facility] ID Date Data Source [id number] 03/12/2020 09:57:00 AM [facility] Name Value Range Interpretation Code Description Data Cheyenne rce(s) Supporting Document(s) HLA Ab [Type] in Serum [facility] ID Date Data Source [id number] 03/14/2020 07:22:17 AM [facility] Performed at [facility], Amira Franks [place]KE[place] 10 0857 Name Value Range Interpretation Code Description Data Cheyenne rce(s) Supporting Document(s) ID Date Data Source [id number] 03/12/2020 07:56:54 AM [facility] Name Value Range Interpretation Code Description Data Cheyenne rce(s) Supporting Document(s) Glucose [Mass/volume] in Capillary blood by Glucometer 138 mg/dL 70- 140 [facility] ID Date Data Source [id number] 03/12/2020 05:45:08 AM [facility] Name Value Range Interpretation Code Description Data Cheyenne rce(s) Supporting Document(s) Albumin [Mass/volume] in Serum or Plasma by Bromocresol green (BCG) dye binding method 2.3 g/dL 3.5-5.2 [facility] Bilirubin.total [Mass/volume] in Serum or Plasma 0.7 mg/dL <1.2 [facility] Calcium [Mass/volume] in Serum or Plasma 8.2 mg/dL 8.8-10.2 L [facility] Chloride [Moles/volume] in Serum or Plasma 113 mmol/L 98-107 H [facility] Creatinine [Mass/volume] in Serum or Plasma 1.64 mg/dL 0.50-0.90 H [facility] Glucose [Mass/volume] in Serum or Plasma 130 mg/dL 70-140 [facility] Alkaline phosphatase [Enzymatic activity/volume] in Serum or Plasma 74 U/L 35-104 [facility] Potassium [Moles/volume] in Serum or Plasma 4.0 mmol/L 3.4-5.1 [facility] Protein [Mass/volume] in Serum or Plasma 4.5 g/dL 6.4-8.3 L [facility] Sodium [Moles/volume] in Serum or Plasma 135 mmol/L 136-145 L [facility] Aspartate aminotransferase [Enzymatic activity/volume] in Se rum or Plasma 5 U/L <32 [facility] Urea nitrogen [Mass/volume] in Serum or Plasma 43 mg/dL 8-23 H [facility] Osmolality of Serum or Plasma by calculation 293 mosm/kg 275-300 [facility] Creatinine/Urea nitrogen [Mass Ratio] in Serum or Plasma 26 [facility] Bicarbonate [Moles/volume] in Serum 16 mmol/L 22-29 L [facility] Alanine aminotransferase [Enzymatic activity/volume] in Seru m or Plasma 5 U/L <33 [facility] Anion gap 3 in Serum or Plasma 6 mmol/L 8-15 L [facility] Glomerular filtration rate/1.73 sq M pre dicted among non-blacks [Volume Rate/Area] in Serum or Plasma by Creatinine-based formula (MDRD) 32 mL/min/1.73m2 >60 L [facility] Glomerular filtration rate/1.73 sq M pre dicted among blacks [Volume Rate/Area] in Serum or Plasma by Creatinine-based formula (MDRD) 37 mL/min/1.73m2 >60 L [facility] ID Date Data Source [id number] 03/12/2020 05:45:08 AM [facility] Name Value Range Interpretation Code Description Data Cheyenne rce(s) Supporting Document(s) Magnesium [Mass/volume] in Serum or Plasma 2.0 mg/dL 1.6-2.4 [facility] ID Date Data Source [id number] 03/12/2020 05:45:08 AM [facility] Name Value Range Interpretation Code Description Data Cheyenne rce(s) Supporting Document(s) Phosphate [Mass/volume] in Serum or Plasma 3.1 mg/dL 2.5-4.5 [facility] ID Date Data Source [id number] 03/12/2020 08:11:17 AM [facility] Name Value Range Interpretation Code Description Data Cheyenne rce(s) Supporting Document(s) Leukocytes [#/volume] in Blood by Automated count 0.5 10*3/uL 4-10 [facility] No significant change since last result called Erythrocytes [#/volume] in Blood by Automated count 2.09 10*6/uL 4.1- 5.3 L [facility] Hemoglobin [Mass/volume] in Blood 6.5 g/dL 11.5-15.5 [facility] Hematocrit [Volume Fraction] of Blood by Automated count 18.3 % 3 6-45 [facility] No significant change since last result called Erythrocyte mean corpuscular volume [Entitic volume] by Auto mated count 87.7 fL 80-96 [facility] Erythrocyte mean corpuscular hemoglobin [Entitic mass] by Automated count 31.0 pg 27-33 [facility] [facility] Erythrocyte mean corpuscular hemoglobin concentration [Mass/volume] by Automated count 35.3 g/dL 32.0-36.0 [facility] distribution width [Ratio] by Automated count 13.8 % 11.5-14.5 [facility] Platelets [#/volume] in Blood by Automated count 10 10*3/uL 150-400 [facility] No significant change since last result called Differential cell count method - Blood [facility] Neutrophils/100 leukocytes in Blood by Automated count 1 % [facility] Lymphocytes/100 leukocytes in Blood by Automated count 87 % [facility] Monocytes/100 leukocytes in Blood by Automated count 0 % [facility] Eosinophils/100 leukocytes in Blood by Automated count 1 % [facility] Basophils/100 leukocytes in Blood by Automated count 0 % [facility] Neutrophils [#/volume] in Blood by Automated count 0.01 10*3/uL 1.8-7 .0 L [facility] Lymphocytes [#/volume] in Blood by Automated count 0.43 10*3/uL 1.2-4 .0 L [facility] Monocytes [#/volume] in Blood by Automated count 0.00 10*3/uL 0-0.8 [facility] Eosinophils [#/volume] in Blood by Automated count 0.01 10*3/uL 0-0.5 [facility] Basophils [#/volume] in Blood by Automated count 0.00 10*3/uL 0-0.2 [facility] Nucleated erythrocytes/100 leukocytes [Ratio] in Blood by Automated count 2 /100{WBCs} 0-0 H [facility] Variant lymphocytes/100 leukocytes in Blood by Manual count 3 % [facility] Myelocytes/100 leukocytes in Blood by Manual count 0 % [facility] Blasts/100 leukocytes in Blood by Manual count 8 % [facility] Lymphocytes [#/volume] in Blood 0.01 10*3/uL 0 H [facility] Myelocytes [#/volume] in Blood by Manual count 0.00 10*3/uL 0-0 [facility] Blasts [#/volume] in Blood by Manual count 0.04 10*3/uL 0-0 [facility] ID Date Data Source [id number] 03/11/2020 09:39:59 PM [facility] Name Value Range Interpretation Code Description Data Cheyenne rce(s) Supporting Document(s) Glucose [Mass/volume] in Capillary blood by Glucometer 128 mg/dL 70- 140 [facility] ID Date Data Source [id number] 03/11/2020 06:00:21 PM [facility] Name Value Range Interpretation Code Description Data Cheyenne rce(s) Supporting Document(s) Leukocytes [#/volume] in Blood by Automated count 0.5 10*3/uL 4-10 [facility] No significant change since last result called Erythrocytes [#/volume] in Blood by Automated count 2.19 10*6/uL 4.1- 5.3 L [facility] Hemoglobin [Mass/volume] in Blood 6.8 g/dL 11.5-15.5 [facility] Hematocrit [Volume Fraction] of Blood by Automated count 19.1 % 3 6-45 [facility] No significant change since last result called Erythrocyte mean corpuscular volume [Entitic volume] by Auto mated count 87.1 fL 80-96 [facility] Erythrocyte mean corpuscular hemoglobin [Entitic mass] by Automated count 31.0 pg 27-33 [facility] Erythrocyte mean corpuscular hemoglobin concentration [Mass/volume] by Automated count 35.5 g/dL 32.0-36.0 [facility]th[facility] distribution width [Ratio] by Automated count 14.1 % 11.5-14.5 [facility] Platelets [#/volume] in Blood by Automated count 13 10*3/uL 150-400 [facility] No significant change since last result called Differential cell count method - Blood [facility] Neutrophils/100 leukocytes in Blood by Automated count 1 % [facility] Lymphocytes/100 leukocytes in Blood by Automated count 84 % [facility] Monocytes/100 leukocytes in Blood by Automated count 2 % [facility] Eosinophils/100 leukocytes in Blood by Automated count 1 % [facility] Neutrophils [#/volume] in Blood by Automated count 0.01 10*3/uL 1.8-7 .0 L [facility] Lymphocytes [#/volume] in Blood by Automated count 0.42 10*3/uL 1.2-4 .0 L [facility] Monocytes [#/volume] in Blood by Automated count 0.01 10*3/uL 0-0.8 [facility] Eosinophils [#/volume] in Blood by Automated count 0.01 10*3/uL 0-0.5 [facility] Nucleated erythrocytes/100 leukocytes [Ratio] in Blood by Automated count 1 /100{WBCs} 0-0 H [facility] Variant lymphocytes/100 leukocytes in Blood by Manual count 5 % [facility] Myelocytes/100 leukocytes in Blood by Manual count 1 % [facility] Blasts/100 leukocytes in Blood by Manual count 6 % [facility] Lymphocytes [#/volume] in Blood 0.03 10*3/uL 0 H [facility] Myelocytes [#/volume] in Blood by Manual count 0.01 10*3/uL 0-0 H [facility] Blasts [#/volume] in Blood by Manual count 0.03 10*3/uL 0-0 H [facility] ID Date Data Source [id number] 03/11/2020 04:37:05 PM [facility] Name Value Range Interpretation Code Description Data Cheyenne rce(s) Supporting Document(s) Glucose [Mass/volume] in Capillary blood by Glucometer 137 mg/dL 70- 140 [facility] ID Date Data Source [id number] 03/13/2020 07:51:27 AM [facility] Value Range Interpretation Code Description Data Cheyenne rce(s) Supporting Document(s) Blood bank comment [facility] ID Date Data Source [id number] 03/11/2020 12:57:44 PM [facility] Service Cmnt XXX-Imp : NoneOB Pnl Stl [...] rce(s) Supporting Document(s) ID Date Data Source [id number] 03/11/2020 12:03:04 PM [facility] Value Range Interpretation Code Description Data Cheyenne rce(s) Supporting Document(s) Glucose [Mass/volume] in Capillary blood by Glucometer 98 mg/dL 70- 140 [facility] ID Date Data Source [id number] 03/11/2020 07:48:58 AM [facility] Value Range Interpretation Code Description Data Cheyenne rce(s) Supporting Document(s) Glucose [Mass/volume] in Capillary blood by Glucometer 97 mg/dL 70- 140 [facility] ID Date Data Source [id number] 03/16/2020 07:27:48 AM [facility] Value Range Interpretation Code Description Data Cheyenne rce(s) Supporting Document(s) ABO and Rh group [Type] in Blood [facility] Blood group antibody screen [Presence] in Serum or Plasma [facility] Blood bank comment [facility] ID Date Data Source [id number] 03/12/2020 11:40:48 AM [facility] Cmnt XXX-Imp : NoneMicroorganism XXX Cult : No growth 1 day Name Value Range Interpretation Code Description Data Cheyenne rce(s) Supporting Document(s) ID Date Data Source [id number] 03/11/2020 01:14:23 AM [facility] Value Range Interpretation Code Description Data Cheyenne rce(s) Supporting Document(s) Bicarbonate [Moles/volume] in Serum 16 mmol/L 22-29 L [facility] Chloride [Moles/volume] in Serum or Plasma 114 mmol/L 98-107 H [facility] Creatinine [Mass/volume] in Serum or Plasma 1.39 mg/dL 0.50-0.90 [facility] Glucose [Mass/volume] in Serum or Plasma 114 mg/dL 70-140 [facility] Potassium [Moles/volume] in Serum or Plasma 4.3 mmol/L 3.4-5.1 [facility] Sodium [Moles/volume] in Serum or Plasma 136 mmol/L 136-145 [facility] Urea nitrogen [Mass/volume] in Serum or Plasma 42 mg/dL 8-23 H [facility] Anion gap 3 in Serum or Plasma 6 mmol/L 8-15 [facility] Osmolality of Serum or Plasma by calculation 293 mosm/kg 275-300 [facility] Creatinine/Urea nitrogen [Mass Ratio] in Serum or Plasma 30 [facility] Calcium [Mass/volume] in Serum or Plasma 7.4 mg/dL 8.8-10.2 L [facility] Glomerular filtration rate/1.73 sq M pre dicted among non-blacks [Volume Rate/Area] in Serum or Plasma by Creatinine-based formula (MDRD) 39 mL/min/1.73m2 >60 L [facility] Glomerular filtration rate/1.73 sq M pre dicted among blacks [Volume Rate/Area] in Serum or Plasma by Creatinine-based formula (MDRD) 45 mL/min/1.73m2 >60 L [facility] ID Date Data Source [id number] 03/11/2020 01:14:23 AM [facility] Name Value Range Interpretation Code Description Data Cheyenne rce(s) Supporting Document(s) Magnesium [Mass/volume] in Serum or Plasma 1.9 mg/dL 1.6-2.4 [facility] ID Date Data Source [id number] 03/11/2020 01:14:23 AM [facility] Name Value Range Interpretation Code Description Data Cheyenne rce(s) Supporting Document(s) Phosphate [Mass/volume] in Serum or Plasma 2.7 mg/dL 2.5-4.5 [facility] ID Date Data Source [id number] 03/11/2020 01:14:23 AM [facility] Name Value Range Interpretation Code Description Data Cheyenne rce(s) Supporting Document(s) Vancomycin [Mass/volume] in Serum or Plasma 19.9 ug/mL [facility] ID Date Data Source [id number] 03/11/2020 01:42:20 AM [facility] Name Value Range Interpretation Code Description Data Cheyenne rce(s) Supporting Document(s) Leukocytes [#/volume] in Blood by Automated count 0.4 10*3/uL 4-10 [facility] No significant change since last result called Erythrocytes [#/volume] in Blood by Automated count 1.87 10*6/uL 4.1- 5.3 L [facility] Hemoglobin [Mass/volume] in Blood 5.7 g/dL 11.5-15.5 [facility] Hematocrit [Volume Fraction] of Blood by Automated count 16.5 % 3 6-45 [facility] No significant change since last result called Erythrocyte mean corpuscular volume [Entitic volume] by Auto mated count 88.2 fL 80-96 [facility] Erythrocyte mean corpuscular hemoglobin [Entitic mass] by Automated count 30.4 pg 27-33 [facility] Erythrocyte mean corpuscular hemoglobin concentration [Mass/volume] by Automated count 34.5 g/dL 32.0-36.0 [facility] Erythrocyte distribution width [Ratio] by Automated count 14.0 % 11.5-14.5 [facility] Platelets [#/volume] in Blood by Automated count 11 10*3/uL 150-400 [facility] No significant change since last result called Differential cell count method - Blood [facility] Lymphocytes/100 leukocytes in Blood by Automated count 88 % [facility] Monocytes/100 leukocytes in Blood by Automated count 2 % [facility] Lymphocytes [#/volume] in Blood by Automated count 0.35 10*3/uL 1.2-4 .0 L [facility] Monocytes [#/volume] in Blood by Automated count 0.01 10*3/uL 0-0.8 [facility] Variant lymphocytes/100 leukocytes in Blood by Manual count 4 % [facility] Blasts/100 leukocytes in Blood by Manual count 6 % [facility] Lymphocytes [#/volume] in Blood 0.02 10*3/uL 0 H [facility] Blasts [#/volume] in Blood by Manual count 0.03 10*3/uL 0-0 H [facility] ID Date Data Source [id number] 03/10/2020 09:21:11 PM [facility] Name Value Range Interpretation Code Description Data Cheyenne rce(s) Supporting Document(s) Glucose [Mass/volume] in Capillary blood by Glucometer 135 mg/dL 70- 140 [facility] ID Date Data Source [id number] 03/12/2020 07:46:13 AM [facility] Cmnt XXX-Imp : NoneMicroorganism XXX Cult : NO Methicillin resistant Staphylococcus aureus isolated Name Value Range Interpretation Code Description Data Cheyenne rce(s) Supporting Document(s) ID Date Data Source [id number] 03/10/2020 07:00:25 PM [facility] XR CHEST FRONTAL ONLY [id number] RESULTI nterpreted by:CECIL JulioROCEDURE INFORMATION: Exam: XR Chest, 1 View Exam date and time: 03/10/2020 6:51 PM Age: 65 years old 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 COMPARISON: DX XR CHEST FRONTAL ONLY [id number] PORTABLE 03/06/2020 11:56 PM FINDINGS: Tubes, catheters [...] rce(s) Supporting Document(s) ID Date Data Source [id number] 03/15/2020 09:14:16 AM [facility] Cmnt XXX-Imp : PORTMicroorganism XXX Cult : No growth 5 days Name Value Range Interpretation Code Description Data Cheyenne rce(s) Supporting Document(s) ID Date Data Source [id number] 03/15/2020 09:14:16 AM [facility] Cmnt XXX-Imp : R HANDMicroorgani sm XXX Cult : No growth 5 days Name Value Range Interpretation Code Description Data Cheyenne rce(s) Supporting Document(s) ID Date Data Source [id number] 03/10/2020 05:20:13 PM [facility] Value Range Interpretation Code Description Data Cheyenne rce(s) Supporting Document(s) Glucose [Mass/volume] in Capillary blood by Glucometer 88 mg/dL 70- 140 [facility] ID Date Data Source [id number] 03/10/2020 11:35:18 AM [facility] Value Range Interpretation Code Description Data Cheyenne rce(s) Supporting Document(s) Glucose [Mass/volume] in Capillary blood by Glucometer 77 mg/dL [address] [place] [address] ID Date Data Source [id number] 03/10/2020 10:04:32 AM [facility] Value Range Interpretation Code Description Data Cheyenne rce(s) Supporting Document(s) Platelets [#/volume] in Blood by Automated count 19 10*3/uL 150-400 [facility] Called to and read back by kimberly molina rn in 10h at 1000 1268 ID Date Data Source [id number] 03/10/2020 07:57:00 AM [facility] Value Range Interpretation Code Description Data Cheyenne rce(s) Supporting Document(s) Glucose [Mass/volume] in Capillary blood by Glucometer 91 mg/dL 70 140 [facility] ID Date Data Source [id number] 03/12/2020 08:58:45 AM [facility] Value Range Interpretation Code Description Data Cheyenne rce(s) Supporting Document(s) Blood bank comment [facility] ID Date Data Source [id number] 03/10/2020 02:17:03 AM [facility] Name Value Range Interpretation Code Description Data Cheyenne rce(s) Supporting Document(s) Bicarbonate [Moles/volume] in Serum 17 mmol/L 22-29 L [facility] Chloride [Moles/volume] in Serum or Plasma 113 mmol/L 98-107 H [facility] Creatinine [Mass/volume] in Serum or Plasma 1.35 mg/dL 0.50-0.90 H [facility] Glucose [Mass/volume] in Serum or Plasma 100 mg/dL 70-140 [facility] Potassium [Moles/volume] in Serum or Plasma 4.5 mmol/L 3.4-5.1 [facility] Sodium [Moles/volume] in Serum or Plasma 137 mmol/L 136-145 [facility] Urea nitrogen [Mass/volume] in Serum or Plasma 43 mg/dL 8-23 H [facility] Anion gap 3 in Serum or Plasma 7 mmol/L 8-15 L [facility] Osmolality of Serum or Plasma by calculation 295 mosm/kg 275-300 [facility] Creatinine/Urea nitrogen [Mass Ratio] in Serum or Plasma 32 [facility] Calcium [Mass/volume] in Serum or Plasma 7.6 mg/dL 8.8-10.2 L [facility] Glomerular filtration rate/1.73 sq M pre dicted among non-blacks [Volume Rate/Area] in Serum or Plasma by Creatinine-based formula (MDRD) 40 mL/min/1.73m2 >60 L [facility] Glomerular filtration rate/1.73 sq M pre dicted among blacks [Volume Rate/Area] in Serum or Plasma by Creatinine-based formula (MDRD) 47 mL/min/1.73m2 >60 L [facility] ID Date Data Source [id number] 03/10/2020 02:17:03 AM [facility] Name Value Range Interpretation Code Description Data Cheyenne rce(s) Supporting Document(s) Magnesium [Mass/volume] in Serum or Plasma 1.9 mg/dL 1.6-2.4 [facility] ID Date Data Source [id number] 03/10/2020 02:17:03 AM [facility] Value Range Interpretation Code Description Data Cheyenne rce(s) Supporting Document(s) Phosphate [Mass/volume] in Serum or Plasma 3.0 mg/dL 2.5-4.5 [facility] ID Date Data Source [id number] 03/10/2020 03:11:24 AM [facility] Name Value Range Interpretation Code Description Data Cheyenne rce(s) Supporting Document(s) Leukocytes [#/volume] in Blood by Automated count 0.5 10*3/uL 4-10 [facility] Called to and read back by Kaitlyn irvin RN, 10H, 02:00. 1663 Erythrocytes [#/volume] in Blood by Automated count 2.06 10*6/uL 4.1- 5.3 [facility] Hemoglobin [Mass/volume] in Blood 6.3 g/dL 11.5-15.5 [facility] Hematocrit [Volume Fraction] of Blood by Automated count 18.1 % 3 6-45 [facility] Called to and read back by Kaitlyn irvin RN, 10H, 02:00. 1663 Erythrocyte mean corpuscular volume [Entitic volume] by Auto mated count 88.1 fL 80-96 [facility] Erythrocyte mean corpuscular hemoglobin [Entitic mass] by Automated count 30.8 pg 27-33 [facility] Erythrocyte mean corpuscular hemoglobin concentration [Mass/volume] by Automated count 34.9 g/dL 32.0-36.0 [facility] E[facility]throcyte distribution width [Ratio] by Automated count 13.9 % 11.5-14.5 [facility] Platelets [#/volume] in Blood by Automated count 6 10*3/uL 150-400 [facility] Called to and read back by Kaitlyn irvin RN, 10H, 02:00. 1663 Differential cell count method - Blood [facility] Neutrophils/100 leukocytes in Blood by Automated count 1 % [facility] Lymphocytes/100 leukocytes in Blood by Automated count 83 % [facility] Monocytes/100 leukocytes in Blood by Automated count 2 % [facility] Neutrophils [#/volume] in Blood by Automated count 0.01 10*3/uL 1.8-7 .0 L [facility] Lymphocytes [#/volume] in Blood by Automated count 0.42 10*3/uL 1.2-4 .0 [facility] Monocytes [#/volume] in Blood by Automated count 0.01 10*3/uL 0-0.8 [facility] Nucleated erythrocytes/100 leukocytes [Ratio] in Blood by Automated count 1 /100{WBCs} 0-0 H [facility] Variant lymphocytes/100 leukocytes in Blood by Manual count 5 % [facility] Blasts/100 leukocytes in Blood by Manual count 9 % [facility] Lymphocytes [#/volume] in Blood 0.02 10*3/uL 0 H [facility] Blasts [#/volume] in Blood by Manual count 0.04 10*3/uL 0-0 H [facility] Anisocytosis [Presence] in Blood by Light microscopy [facility] ID Date Data Source [id number] 03/09/2020 09:20:58 PM [facility] Name Value Range Interpretation Code Description Data Cheyenne rce(s) Supporting Document(s) Glucose [Mass/volume] in Capillary blood by Glucometer 90 mg/dL 70- 140 [facility] ID Date Data Source [id number] 03/09/2020 04:47:46 PM [facility] Value Range Interpretation Code Description Data Cheyenne rce(s) Supporting Document(s) Glucose [Mass/volume] in Capillary blood by Glucometer 102 mg/dL 70- 140 [facility] ID Date Data Source [id number] 03/09/2020 01:06:57 PM [facility] Value Range Interpretation Code Description Data Cheyenne rce(s) Supporting Document(s) [facility] [id number] [file] [id number] ID Date Data Source [id number] 03/09/2020 01:57:31 PM [facility] Name Value Range Interpretation Code Description Data Cheyenne rce(s) Supporting Document(s) Folate [Mass/volume] in Serum or Plasma 7.21 ng/mL >4.77 [facility] ID Date Data Source [id number] 03/09/2020 01:35:22 PM [facility] Name Value Range Interpretation Code Description Data Cheyenne rce(s) Supporting Document(s) Leukocytes [#/volume] in Blood by Automated count 0.6 10*3/uL 4-10 [facility] Called to and read back by feliz contreras rn in 10h at 1253 1268 Erythrocytes [#/volume] in Blood by Automated count 2.47 10*6/uL 4.1- 5.3 [facility] Hemoglobin [Mass/volume] in Blood 7.6 g/dL 11.5-15.5 [facility] Hematocrit [Volume Fraction] of Blood by Automated count 21.7 % 3 6-45 [facility] Called to and read back by feliz contreras rn in 10h at 1253 1268 Erythrocyte mean corpuscular volume [Entitic volume] by Auto mated count 88.1 fL 80-96 [facility] Erythrocyte mean corpuscular hemoglobin [Entitic mass] by Automated count 30.7 pg 27-33 [facility] Erythrocyte mean corpuscular hemoglobin concentration [Mass/volume] by Automated count 34.9 g/dL 32.0-36.0 [facility] width [Ratio] by Automated count 13.9 % 11.5-14.5 [facility] Platelets [#/volume] in Blood by Automated count 10 10*3/uL 150-400 [facility] Called to and read back by feliz contreras rn in 10h at 1253 1268 Differential cell count method - Blood [facility] Neutrophils/100 leukocytes in Blood by Automated count 7 % [facility] Lymphocytes/100 leukocytes in Blood by Automated count 81 % [facility] Monocytes/100 leukocytes in Blood by Automated count 1 % [facility] Eosinophils/100 leukocytes in Blood by Automated count 2 % [facility] Basophils/100 leukocytes in Blood by Automated count 1 % [facility] Neutrophils [#/volume] in Blood by Automated count 0.04 10*3/uL 1.8-7 .0 [facility] Lymphocytes [#/volume] in Blood by Automated count 0.49 10*3/uL 1.2-4 .0 L [facility] Monocytes [#/volume] in Blood by Automated count 0.01 10*3/uL 0-0.8 [facility] Eosinophils [#/volume] in Blood by Automated count 0.01 10*3/uL 0-0.5 [facility] [facility] Basophils [#/volume] in Blood by Automated count 0.01 10*3/uL 0-0.2 [facility] Nucleated erythrocytes/100 leukocytes [Ratio] in Blood by Automated count 1 /100{WBCs} 0-0 H [facility] Myelocytes/100 leukocytes in Blood by Manual count 1 % [facility] Blasts/100 leukocytes in Blood by Manual count 7 % [facility] Myelocytes [#/volume] in Blood by Manual count 0.01 10*3/uL 0-0 H [facility] Blasts [#/volume] in Blood by Manual count 0.04 10*3/uL 0-0 H [facility] ID Date Data Source [id number] 03/09/2020 11:37:59 AM [facility] Value Range Interpretation Code Description Data Cheyenne rce(s) Supporting Document(s) Glucose [Mass/volume] in Capillary blood by Glucometer 83 mg/dL 70- 140 [facility] ID Date Data Source [id number] 03/09/2020 10:05:17 AM [facility] Value Range Interpretation Code Description Data Cheyenne rce(s) Supporting Document(s) Reticulocytes/100 erythrocytes in Blood by Automated count 0.3 % 0.6-2.8 [facility] Reticulocytes [#/volume] in Blood 7.2 10*3/uL 26-122 [facility] Immature reticulocytes/Reticulocytes.total in Blood 0.21 % 0.26-0 .52 [facility] ID Date Data Source [id number] 03/09/2020 10:17:46 AM [facility] Value Range Interpretation Code Description Data Cheyenne rce(s) Supporting Document(s) Fibrinogen [Mass/volume] in Platelet poor plasma by Coagulat ion assay 386 mg/dl 190-450 [facility] ID Date Data Source [id number] 03/09/2020 10:17:46 AM [facility] Value Range Interpretation Code Description Data Cheyenne rce(s) Supporting Document(s) Prothrombin time (PT) 15.9 s 12.5-14.9 H [facility] INR in Platelet poor plasma by Coagulation assay 1.26 [facility] Routine intensity oral anticoagulation I NR is typically 2.0-3.0. Target INR must be clinically individualized. ID Date Data Source [id number] 03/09/2020 10:17:46 AM [facility] Value Range Interpretation Code Description Data Cheyenne rce(s) Supporting Document(s) aPTT in Platelet poor plasma by Coagulation assay 33.1 s 24.0-33. 0 H [facility] ID Date Data Source [id number] 03/09/2020 01:52:11 PM [facility] Value Range Interpretation Code Description Data Cheyenne rce(s) Supporting Document(s) Cobalamin (Vitamin B12) [Mass/volume] in Serum or Plasma 621 pg/ml 2 11-946 [facility] ID Date Data Source [id number] 03/09/2020 07:47:24 AM [facility] Value Range Interpretation Code Description Data Cheyenne rce(s) Supporting Document(s) Glucose [Mass/volume] in Capillary blood by Glucometer 74 mg/dL 70- 140 [facility] ID Date Data Source [id number] 03/09/2020 12:26:38 AM [facility] Value Range Interpretation Code Description Data Cheyenne rce(s) Supporting Document(s) Leukocytes [#/volume] in Blood by Automated count 0.6 10*3/uL 4-10 [facility] No significant change since last result called Erythrocytes [#/volume] in Blood by Automated count 2.09 10*6/uL 4.1- 5.3 L [facility] Hemoglobin [Mass/volume] in Blood 6.3 g/dL 11.5-15.5 L [facility] Hematocrit [Volume Fraction] of Blood by Automated count 18.4 % 3 6-45 [facility] No significant change since last result called Erythrocyte mean corpuscular volume [Entitic volume] by Auto mated count 88.1 fL 80-96 [facility] Erythrocyte mean corpuscular hemoglobin [Entitic mass] by Automated count 30.4 pg 27-33 [facility] Erythrocyte mean corpuscular hemoglobin concentration [Mass/volume] by Automated count 34.5 g/dL 32.0-36.0 [facility] Erythrocyte distribution width [Ratio] by Automated count 14.0 % 11.5-14.5 [facility] Platelets [#/volume] in Blood by Automated count 10 10*3/uL 150-400 [facility] No significant change since last result called ID Date Data Source [id number] 03/09/2020 12:41:11 AM [facility] Name Value Range Interpretation Code Description Data Cheyenne rce(s) Supporting Document(s) Magnesium [Mass/volume] in Serum or Plasma 2.1 mg/dL 1.6-2.4 [facility] ID Date Data Source [id number] 03/09/2020 12:41:11 AM [facility] Value Range Interpretation Code Description Data Cheyenne rce(s) Supporting Document(s) Phosphate [Mass/volume] in Serum or Plasma 2.8 mg/dL 2.5-4.5 [facility] ID Date Data Source [id number] 03/09/2020 12:41:11 AM [facility] Value Range Interpretation Code Description Data Cheyenne rce(s) Supporting Document(s) Albumin [Mass/volume] in Serum or Plasma by Bromocresol green (BCG) dye binding method 2.6 g/dL 3.5-5.2 [facility] Bilirubin.total [Mass/volume] in Serum or Plasma 0.5 mg/dL <1.2 [facility] Calcium [Mass/volume] in Serum or Plasma 7.9 mg/dL 8.8-10.2 L [facility] Chloride [Moles/volume] in Serum or Plasma 111 mmol/L 98-107 H [facility] Creatinine [Mass/volume] in Serum or Plasma 1.53 mg/dL 0.50-0.90 H [facility] Glucose [Mass/volume] in Serum or Plasma 86 mg/dL 70-140 [facility] Alkaline phosphatase [Enzymatic activity/volume] in Serum or Plasma 72 U/L 35-104 [facility] Potassium [Moles/volume] in Serum or Plasma 4.1 mmol/L 3.4-5.1 [facility] Protein [Mass/volume] in Serum or Plasma 4.7 g/dL 6.4-8.3 [facility] Sodium [Moles/volume] in Serum or Plasma 136 mmol/L 136-145 [facility] Aspartate aminotransferase [Enzymatic activity/volume] in Se rum or Plasma 6 U/L <32 [facility] Urea nitrogen [Mass/volume] in Serum or Plasma 50 mg/dL 8-23 H [facility] Osmolality of Serum or Plasma by calculation 295 mosm/kg 275-300 [facility] Creatinine/Urea nitrogen [Mass Ratio] in Serum or Plasma 33 [facility] Bicarbonate [Moles/volume] in Serum 18 mmol/L 22-29 L [facility] Alanine aminotransferase [Enzymatic activity/volume] in Serum or Pl asma <33 [facility] Anion gap 3 in Serum or Plasma 8 mmol/L 8-15 [facility] Glomerular filtration rate/1.73 sq M pre dicted among non-blacks [Volume Rate/Area] in Serum or Plasma by Creatinine-based formula (MDRD) 35 mL/min/1.73m2 >60 L [facility] Glomerular filtration rate/1.73 sq M pre dicted among blacks [Volume Rate/Area] in Serum or Plasma by Creatinine-based formula (MDRD) 40 mL/min/1.73m2 >60 L [facility] ID Date Data Source [id number] 03/08/2020 09:35:28 PM [facility] Value Range Interpretation Code Description Data Cheyenne rce(s) Supporting Document(s) Glucose [Mass/volume] in Capillary blood by Glucometer 132 mg/dL 70- 140 [facility] ID Date Data Source [id number] 03/08/2020 04:46:38 PM [facility] Value Range Interpretation Code Description Data Cheyenne rce(s) Supporting Document(s) Glucose [Mass/volume] in Capillary blood by Glucometer 109 mg/dL 70- 140 [facility] ID Date Data Source [id number] 03/08/2020 02:41:54 PM [facility] Value Range Interpretation Code Description Data Cheyenne rce(s) Supporting Document(s) EKG [facility] ospital UISXQa9oRmQAGzQus6ZmLbRyIAWkGE6phfv3X2B4iXJwA9IlyVJsd1fbW1OrJ1SeVVDyOADBDC3GeCDf jb2 [file] cNuD+x00/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/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/Ymd+pB18ln98q/s3J/YuT+aR56cwNKDKvUviO38n386s239n170j817s950z0 42m271x248c805w974d199K66CML7ix1IBEhYCxNUfEaYkJwexVSM2LhAPBjsEAhs1mlZKyV+xc39i5/ 6Nqy5XhxjNV/ymjs0B9YR9uUTOuW6kgiJ7rT83Hwm2 J3buT+nyq6y7H7Wqd2Rd/sTOeGLn/sTO/QjZuOETGvdb3lzKAka9rjWJFf1gqARXKuyxAMODqvGRoWBt REAgqWvWTHxd5eEASrl9EHYQny0WdsJgx7JzxPro7sxvUmw7alLKLf2asQNOb+Ock5Bq3Vd+4hGI0D/Y iSSxFXZsmNeYHVsMK4zzdwr5YoF9E5FIwlMAkoI7mh iyhvzGCLaG/OzQobm5Yvs+teqiKHcEB4JDSaFJBFEKfTSYl6t46qRzsPSrXS4YFmL+Uam0sNTOWWnr0T YLyPCECTQXuVBxnFpMQMQPuovKEytXS6DM883W6rFetOZwJWzUChwvATSBv4HuUIZKYNOtvlUfwDkmA6 TlrYQbDPGkZ3qU7msFmroVfiTXy+wwcjhr9W0bItyl GgKmwPpFevnuoPCOe1XBJAjIWJ1B6dJYgccpnUzUZHEWEXlHeWDtJdJXKrn8DSrBym/usLG41aDW9YVI h6SY5XQONSp/SdlXqNGZk3J+47QPZ/3HeR+ek/fzwqaK74M6xb6YQnE/vJ72At7wag1JHgr5Esa/Q96S qFHoWapl1TOyvGE1t/dRGi1cpmWlyrYBUMxLnynHqz fFL6IHiihyjEb/vGHFHJkGDLMZHTVYiIm0DBnVpo6dJ/TR1KiNaJKR9djW/zBmO3ETdFoJDuQyW68LnJ kJ6iKnqSpUBH9HwHkTegl6q1cNoEDDVvZxYwSIhawuW4tsIV0q9oTE/WXH4jwRUyL0EuMpQ3DzTxpZDP GJIYVLtJUNxMZQfHQKHYCRNHNJWHoAAKHy5wlMLaT+ [file] ID Date Data Source [id number] 03/08/2020 12:13:11 PM [facility] Name Value Range Interpretation Code Description Data Cheyenne rce(s) Supporting Document(s) [facility] WTOWLq5fWrFAAyTrd2GpEiLeHMOzSK4ibmf1F2Q9jMImL3LukOUyp3srR0XiZ4WsXMCdQBQNTI3HdMWj jb2 [file] Ru+Bike Assembler+ryj3+3XGSWhxFniLHFT+mT7V8v2iw85k5Nu [file] 0j272E6f0J5J0192r7k/l56ajc1IzuG8ig9vLDt9UU 362BdGwe/B7bgXvuUR17lzejZ87x+12G6KGmVQtljPndD24Pl+R0/+6g3mX/tz6q5ybMbqz25hgSrtoq pzqody+GYrIB5vXuxQfk8rG7jAlkhK0K78sU2qy5hn2IHi3s1EZF4oA/ZatHyabL8kZXnurq7Gd9d9rb Qe+ueLrbBSfwmkHvch+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/Wdwc5TgY/UxwL8dQtmD [file] knuv0pG0/D66JdhKqv+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/tPah8Bg65aOt+Ozq/EzgRTXZjZWs27D96c23sg/wP9cF5+XsCxJDU4mmWm qRpmakEcBewWPmQyCPYjQqe8JI2WfAWeEHUsG0N5SX Ckfe3pONXxZBSstXJiEmIyBVPHVU6FhRKvJW8IUUd0TGU6KMUvBkToDYPdMJ74UJJuYJTTCj5kneXeZm jWHnBwQA9ilmn0S5R5tHPnJ807jRxrheLpXU0Yv7DqqAGiNK7IpDQrkAEsKSOzGZEgZ9hzf2CoTaWqTA WOHd2oesZuTxrANcOvYU2wakg5C9M0iHvugnEiJNFJ FSprMwwzDA3qjUmdjdibY5JqhONoIRPoZ6HkLIVsp72LMBYuTLfFVpEoVfVtAAHbUEMuNwtyYxCzQVCu GLEtIZYrSK1FaNVqTLPcCPGQNMgaYylrNGAflH0snQGLw8AaVOFTFAeoXnXBJIWvZKW1TbGvAOBaQ7Tr fkYkcETuFEJVJFwbCbbrFBXgmF8zrBbdP0UpINK3m3 LxFN8FH2YnYYMvDUNPIQO0d1WpCUWdfdfonhywOnLbHLBoSPNnCQTeEV8Jes6opUKfnqYyFAWBCVtnBk eeVE4prKdaaxzeT8KofVWeVTS+MlLqFR1ebo9+CpKdQICsXqh2JSVvVUxqUULcKSMyZQOqH6trLOMiNn BiQKTvWyTwTRImKVKpOHFyJ030mzQjBy2+TL6oe9Fh AwhwPKTOHBEaMALxDDFzCUF9BpXwZYFsDIDhVPLvDsT8UpXvCxBCILJnIEM5DyraRNXsYNBlMJOxFXff TKEkFZa8BKR6ZGUuUTIbQS9kTeTgIZDsHgM6VwfoFRNiRKYlvwXICEQhQDWhEAGoJQQ0TSJhJIWqCYcx VJJqICTjCLQ7NELbOQHdDR6uFxTlJDElSLPcQiskJL RtPOEatqXTQXBhUWPkCNF0BsRgWGWbAQOeWSxsGEIuULIxQdh8LICvKQKlRN7lNfGzIBKjBDQ2HPjmRZ LhLKZrtyLWARKlGNDsRYXbIpGbYWDhFMPyFWmyKFZcUSPuMmKrLSAuFJWfPS0dPuIkLSImQCN9KHNwRP VwHSElirARJQKfJZYiLQd2AAQpFSHxLIMhYWaiHBPs JXKdGEK2THGiOFZbSK2xJwOaLDScNGWoBORcRZNnDJLdpdSWLOTxTTGrSOW4BDIpMGXaPNBdIQqhZLWy PAUaJnl7ACDrCSJcQI1tXdArIRRrTWM9JZEgTIHuIFBmyhMPFKEfKPY0EmPiWcKaQSMwNXCmTAaeONYe RYZyCtN3UKHbTMNlLV1jQkWfAJOcMRN9DmZmNZUjNZ FxtbRXMTFxTCZyPTR3GwCyFKAxVACrKVggONMaXVw8PLc8CVScPRPhQI9fUmKsLYYsUuO9AkKtSOHnLL UigdWWGPBnBXC2ErJ6ZQFhWRPpEBRhCUvsZEDkZJhkMMGhPEWmOAWsZZ5wSlGfJPPpZEXhOOVgRtF7Sz IaObBNiKAvnPmomlv2XDmtN0g4PGVsADggLG6pchYu XNIlGusqAn7wkUT6BBIoDgrLJp8Yc8MgfwZ7jzTsSwf8KLIqTmSpOT7U ID Date Data Source [id number] 03/08/2020 12:04:38 PM [facility] Name Value Range Interpretation Code Description Data Cheyenne e(s) Supporting Document(s) Leukocytes [#/volume] in Blood by Automated count 0.7 10*3/uL 4-10 [facility] No significant change since last result called Erythrocytes [#/volume] in Blood by Automated count 2.36 10*6/uL 4.1- 5.3 L [facility] Hemoglobin [Mass/volume] in Blood 7.2 g/dL 11.5-15.5 L [facility] Hematocrit [Volume Fraction] of Blood by Automated count 20.7 % 3 6-45 [facility] No significant change since last result called Erythrocyte mean corpuscular volume [Entitic volume] by Auto mated count 87.8 fL 80-96 [facility] Erythrocyte mean corpuscular hemoglobin [Entitic mass] by Automated count 30.7 pg 27-33 [facility] Erythrocyte mean corpuscular hemoglobin concentration [Mass/volume] by Automated count 35.0 g/[facility].0-[facility] distribution width [Ratio] by Automated count 13.8 % 11.5-14.5 [facility] Platelets [#/volume] in Blood by Automated count 17 10*3/uL 150-400 [facility] No significant change since last result called ID Date Data Source [id number] 03/08/2020 11:38:54 AM [facility] Name Value Range Interpretation Code Description Data Cheyenne rce(s) Supporting Document(s) Glucose [Mass/volume] in Capillary blood by Glucometer 128 mg/dL 70- 140 [facility] ID Date Data Source [id number] 03/08/2020 10:03:[address] [facility] [address] ABDOMEN PELVIS WITHOUT CONTRAST [id number] FINAL RESULTInterpreted by:Gal Pagan, MDPROCEDURE INFORMATION: Exam: [...] rce(s) Supporting Document(s) ID Date Data Source [id number] 03/08/2020 08:00:45 AM [facility] Name Value Range Interpretation Code Description Data Cheyenne rce(s) Supporting Document(s) Glucose [Mass/volume] in Capillary blood by Glucometer 129 mg/dL 70- 140 [facility] ID Date Data Source [id number] 03/08/2020 03:16:02 AM [facility] Name Value Range Interpretation Code Description Data Cheyenne rce(s) Supporting Document(s) Albumin [Mass/volume] in Serum or Plasma by Bromocresol green (BCG) dye binding method 2.6 g/dL 3.5-5.2 [facility] Bilirubin.total [Mass/volume] in Serum or Plasma 1.0 mg/dL <1.2 [facility] Calcium [Mass/volume] in Serum or Plasma 7.9 mg/dL 8.8-10.2 L [facility] Chloride [Moles/volume] in Serum or Plasma 111 mmol/L 98-107 H [facility] Creatinine [Mass/volume] in Serum or Plasma 1.52 mg/dL 0.50-0.90 H [facility] Glucose [Mass/volume] in Serum or Plasma 137 mg/dL 70-140 [facility] Alkaline phosphatase [Enzymatic activity/volume] in Serum or Plasma 71 U/L 35-104 [facility] Potassium [Moles/volume] in Serum or Plasma 4.4 mmol/L 3.4-5.1 [facility] Protein [Mass/volume] in Serum or Plasma 4.6 g/dL 6.4-8.3 L [facility] Sodium [Moles/volume] in Serum or Plasma 136 mmol/L 136-145 [facility] Aspartate aminotransferase [Enzymatic activity/volume] in Serum or Plasma <32 [facility] Urea nitrogen [Mass/volume] in Serum or Plasma 67 mg/dL 8-23 H [facility] Osmolality of Serum or Plasma by calculation 304 mosm/kg 275-300 H [facility] Creatinine/Urea nitrogen [Mass Ratio] in Serum or Plasma 44 [facility] Bicarbonate [Moles/volume] in Serum 20 mmol/L 22-29 L [facility] Alanine aminotransferase [Enzymatic activity/volume] in Serum or Pl asma <33 [facility] Anion gap 3 in Serum or Plasma 5 mmol/L 8-15 L [facility] Glomerular filtration rate/1.73 sq M pre dicted among non-blacks [Volume Rate/Area] in Serum or Plasma by Creatinine-based formula (MDRD) 35 mL/min/1.73m2 >60 L [facility] Glomerular filtration rate/1.73 sq M pre dicted among blacks [Volume Rate/Area] in Serum or Plasma by Creatinine-based formula (MDRD) 41 mL/min/1.73m2 >60 L [facility] ID Date Data Source [id number] 03/08/2020 03:16:02 AM [facility] Value Range Interpretation Code Description Data Cheyenne rce(s) Supporting Document(s) Urate [Mass/volume] in Serum or Plasma 6.9 mg/dl 2.4-5.7 H [facility] ID Date Data Source [id number] 03/08/2020 03:16:02 AM [facility] Value Range Interpretation Code Description Data Cheyenne rce(s) Supporting Document(s) Magnesium [Mass/volume] in Serum or Plasma 2.2 mg/dL 1.6-2.4 [facility] ID Date Data Source [id number] 03/08/2020 03:16:02 AM [facility] Value Range Interpretation Code Description Data Cheyenne rce(s) Supporting Document(s) Phosphate [Mass/volume] in Serum or Plasma 3.5 mg/dL 2.5-4.5 [facility] ID Date Data Source [id number] 03/08/2020 08:57:35 AM EST [facility] Name Value Range Interpretation Code Description Data Cheyenne rce(s) Supporting Document(s) Lactate dehydrogenase [Enzymatic activit y/volume] in Serum or Plasma by Lactate to pyruvate reaction 219 U/L 122-214 H [facility] ID Date Data Source [id number] 03/08/2020 10:30:44 AM [facility] Name Value Range Interpretation Code Description Data Cheyenne rce(s) Supporting Document(s) Haptoglobin [Mass/volume] in Serum or Plasma 198 mg/dl 30-200 [facility] ID Date Data Source [id number] 03/08/2020 08:20:21 AM [facility] Name Value Range Interpretation Code Description Data Cheyenne rce(s) Supporting Document(s) Leukocytes [#/volume] in Blood by Automated count 0.5 10*3/uL 4-10 [facility] No significant change since last result called Erythrocytes [#/volume] in Blood by Automated count 1.99 10*6/uL 4.1- 5.3 L [facility] Hemoglobin [Mass/volume] in Blood 6.1 g/dL 11.5-15.5 [facility] Hematocrit [Volume Fraction] of Blood by Automated count 17.4 % 3 6-45 [facility] No significant change since last result called Erythrocyte mean corpuscular volume [Entitic volume] by Auto mated count 87.6 fL 80-96 [facility] Erythrocyte mean corpuscular hemoglobin [Entitic mass] by Automated count 30.9 pg 27-33 [facility] Erythrocyte mean corpuscular hemoglobin concentration [Mass/volume] by Automated count 35.2 g/dL 32.0-36.0 [facility] Erythrocyte distribution width [Ratio] by Automated count 13.9 % 11.5-14.5 [facility] Platelets [#/volume] in Blood by Automated count 17 10*3/uL 150-400 [facility] No significant change since last result called Differential cell count method - Blood [facility] Neutrophils/100 leukocytes in Blood by Automated count 2 % [facility] Lymphocytes/100 leukocytes in Blood by Automated count 78 % [facility] Monocytes/100 leukocytes in Blood by Automated count 4 % [facility] Eosinophils/100 leukocytes in Blood by Automated count 2 % [facility] Neutrophils [#/volume] in Blood by Automated count 0.01 10*3/uL 1.8-7 .0 L [facility] Lymphocytes [#/volume] in Blood by Automated count 0.39 10*3/uL 1.2-4 .0 L [facility] Monocytes [#/volume] in Blood by Automated count 0.02 10*3/uL 0-0.8 [facility] Eosinophils [#/volume] in Blood by Automated count 0.01 10*3/uL 0-0.5 [facility] Nucleated erythrocytes/100 leukocytes [Ratio] in Blood by Automated count 4 /100{WBCs} 0-0 H [facility] Variant lymphocytes/100 leukocytes in Blood by Manual count 4 % [facility] Blasts/100 leukocytes in Blood by Manual count 8 % [facility] Confirmed [id number] Plasma cells/100 leukocytes in Blood 2 % [facility] Lymphocytes [#/volume] in Blood 0.02 10*3/uL 0 H [facility] Blasts [#/volume] in Blood by Manual count 0.04 10*3/uL 0-0 H [facility] Plasma cells [#/volume] in Blood by Manual count 0.01 10*3/uL 0-0 H [facility] Dwarf Megakaryocyte 2 % 0-0 H [facility] ID Date Data Source [id number] 03/07/2020 10:20:43 PM EST [facility] Name Value Range Interpretation Code Description Data Cheyenne rce(s) Supporting Document(s) Color of Urine [facility] Clarity of Urine [facility] Specific gravity of Urine by Refractometry automated 1.014 1.003 -1.030 [facility] pH of Urine by Automated test strip 5.0 5.0-8.0 [facility] Protein [Mass/volume] in Urine by Automated test strip Neg [facility] Glucose [Mass/volume] in Urine by Automated test strip Neg [facility] Ketones [Mass/volume] in Urine by Automated test strip Neg [facility] Bilirubin.total [Presence] in Urine by Automated test strip Negative [facility] Hemoglobin [Presence] in Urine by Automated test strip Neg ative A [facility] Leukocyte esterase [Presence] in Urine by Automated test strip Negative [facility] Nitrite [Presence] in Urine by Automated test strip Negati ve [facility] Leukocytes [#/area] in Urine sediment by Automated count 0 /HPF 0 -5 [facility] Erythrocytes [#/area] in Urine sediment by Automated count 0-3 [facility] Service comment [facility] Epithelial cells.squamous [#/area] in Urine sediment by Auto mated count 1 /HPF None A [facility] ID Date Data Source [id number] 03/08/2020 07:16:37 PM [facility] Service Cmnt XXX-Imp : NoneMicroorganism XXX Cult : NEGATIVE for fecal occult blood by immunochromatography. This test is not designed to detect bleeding from the upper GI tract. To detect bleeding from the upper tract, order Fecal Occult Blood, Upper GI (Hemoccult-SENSA). Name Value Range Interpretation Code Description Data Cheyenne rce(s) Supporting Document(s) ID Date Data Source [id number] 03/07/2020 09:18:45 PM [facility] Name Value Range Interpretation Code Description Data Cheyenne rce(s) Supporting Document(s) Glucose [Mass/volume] in Capillary blood by Glucometer 148 mg/dL 70- 140 H [facility] ID Date Data Source [id number] 03/07/2020 09:52:09 PM [facility] Name Value Range Interpretation Code Description Data Cheyenne rce(s) Supporting Document(s) Leukocytes [#/volume] in Blood by Automated count 0.8 10*3/uL 4-10 [facility] Called to and read back by Katrina Helton RN 10H 2103 [place] 1478 Erythrocytes [#/volume] in Blood by Automated count 1.95 10*6/uL 4.1- 5.3 L [facility] Hemoglobin [Mass/volume] in Blood 6.0 g/dL 11.5-15.5 L [facility] Hematocrit [Volume Fraction] of Blood by Automated count 17.4 % 3 6-45 [facility] Called to and read back by Katrina Helton RN 10H 2103 [place] 1478 Erythrocyte mean corpuscular volume [Entitic volume] by Auto mated count 89.6 fL 80-96 [facility] Erythrocyte mean corpuscular hemoglobin [Entitic mass] by Automated count 30.9 pg 27-33 [facility] Erythrocyte mean corpuscular hemoglobin concentration [Mass/volume] by Automated count 34.5 g/dL 32.0-36.0 [facility] distribution width [Ratio] by Automated count 15.0 % 11.5-14.5 H [facility] Platelets [#/volume] in Blood by Automated count 26 10*3/uL 150-400 LL [facility] Called to and read back by Katrina Helton RN 10H 2103 [place] 8871 Differential cell count method - Blood [facility] Neutrophils/100 leukocytes in Blood by Automated count 1 % [facility] Lymphocytes/100 leukocytes in Blood by Automated count 74 % [facility] Monocytes/100 leukocytes in Blood by Automated count 3 % [facility] Eosinophils/100 leukocytes in Blood by Automated count 3 % [facility] Neutrophils [#/volume] in Blood by Automated count 0.01 10*3/uL 1.8-7 .0 L [facility] Lymphocytes [#/volume] in Blood by Automated count 0.59 10*3/uL 1.2-4 .0 L [facility] Monocytes [#/volume] in Blood by Automated count 0.02 10*3/uL 0-0.8 [facility] Eosinophils [#/volume] in Blood by Automated count 0.02 10*3/uL 0-0.5 [facility] Nucleated erythrocytes/100 leukocytes [Ratio] in Blood by Automated count 3 /100{WBCs} 0-0 H [facility] Variant lymphocytes/100 leukocytes in Blood by Manual count 9 % [facility] Blasts/100 leukocytes in Blood by Manual count 10 % [facility] Lymphocytes [#/volume] in Blood 0.07 10*3/uL 0 H [facility] Blasts [#/volume] in Blood by Manual count 0.08 10*3/uL 0-0 H [facility] Anisocytosis [Presence] in Blood by Light microscopy [facility] Poikilocytosis [Presence] in Blood by Light microscopy [facility] ID Date Data Source [id number] 03/08/2020 06:57:34 AM EST [facility] Hospital Name Value Range Interpretation Code Description Data Cheyenne rce(s) Supporting Document(s) Clerical Check [facility] No Hemolysis SeenNo Hemolysis Seen Direct antiglobulin test.poly specific reagent [Presence] on Red Blood Cells [facility] Direct antiglobulin test.poly specific r eagent [Presence] on Red Blood Cells --after transfusion reaction [facility] Transfusion reaction [Interpretation] in Plasma or RBC Narrative [facility] OPOSOPOS Blood product unit ID [#] [facility] Blood bank comment [facility] ID Date Data Source [id number] 03/07/2020 06:17:25 PM [facility] Name Value Range Interpretation Code Description Data Cheyenne rce(s) Supporting Document(s) Platelets [#/volume] in Blood by Automated count 28 10*3/uL 150-400 [facility] Called to and read back by Kecia Soto RN 10H at 1817 by 2086 ID Date Data Source [id number] 03/07/2020 04:52:40 PM [facility] Name Value Range Interpretation Code Description Data Cheyenne rce(s) Supporting Document(s) Glucose [Mass/volume] in Capillary blood by Glucometer 166 mg/dL 70- 140 [facility] ID Date Data Source [id number] 03/07/2020 01:23:31 PM [facility] Value Range Interpretation Code Description Data Cheyenne rce(s) Supporting Document(s) History and Physical [facility] [id number] lbm [file] [id number] ID Date Data Source [id number] 03/09/2020 07:09:42 AM [facility] Name Value Range Interpretation Code Description Data Cheyenne rce(s) Supporting Document(s) Blood bank comment [facility] ID Date Data Source [id number] 03/07/2020 12:23:13 PM [facility] Value Range Interpretation Code Description Data Cheyenne rce(s) Supporting Document(s) Glucose [Mass/volume] in Capillary blood by Glucometer 184 mg/dL 70- 140 H [facility] ID Date Data Source [id number] 03/07/2020 11:46:33 AM [facility] Value Range Interpretation Code Description Data Cheyenne rce(s) Supporting Document(s) Prothrombin time (PT) 16.6 s 12.5-14.9 H [facility] INR in Platelet poor plasma by Coagulation assay 1.32 [facility] Routine intensity oral anticoagulation I NR is typically 2.0-3.0. Target INR must be clinically individualized. ID Date Data Source [id number] 03/07/2020 11:46:33 AM [facility] Value Range Interpretation Code Description Data Cheyenne rce(s) Supporting Document(s) aPTT in Platelet poor plasma by Coagulation assay 32.9 s 24.0-33. 0 [facility] ID Date Data Source [id number] 03/07/2020 03:03:10 PM [facility] Value Range Interpretation Code Description Data Cheyenne rce(s) Supporting Document(s) Leukocytes [#/volume] in Blood by Automated count 1.2 10*3/uL 4-10 [facility] No significant change since last result called Erythrocytes [#/volume] in Blood by Automated count 2.06 10*6/uL 4.1- 5.3 L [facility] Hemoglobin [Mass/volume] in Blood 6.3 g/dL 11.5-15.5 L [facility] Hematocrit [Volume Fraction] of Blood by Automated count 18.0 % 3 6-45 [facility] No significant change since last result called Erythrocyte mean corpuscular volume [Entitic volume] by Auto mated count 87.6 fL 80-96 [facility] Erythrocyte mean corpuscular hemoglobin [Entitic mass] by Automated count 30.4 pg 27-33 [facility] Erythrocyte mean corpuscular hemoglobin concentration [Mass/volume] by Automated count 34.7 g/dL 32.0-36.0 [facility] Erythrocyte distribution width [Ratio] by Automated count 14.1 % 11.5-14.5 [facility] Platelets [#/volume] in Blood by Automated count 10 10*3/uL 150-400 LL [facility] No significant change since last result called Differential cell count method - Blood [facility] Neutrophils/100 leukocytes in Blood by Automated count 3 % [facility] Lymphocytes/100 leukocytes in Blood by Automated count 87 % [facility] Monocytes/100 leukocytes in Blood by Automated count 0 % [facility] Eosinophils/100 leukocytes in Blood by Automated count 1 % [facility] Neutrophils [#/volume] in Blood by Automated count 0.04 10*3/uL 1.8-7 .0 L [facility] Lymphocytes [#/volume] in Blood by Automated count 1.04 10*3/uL 1.2-4 .0 L [facility] Monocytes [#/volume] in Blood by Automated count 0.00 10*3/uL 0-0.8 [facility] Eosinophils [#/volume] in Blood by Automated count 0.01 10*3/uL 0-0.5 [facility] Nucleated erythrocytes/100 leukocytes [Ratio] in Blood by Automated count 1 /100{WBCs} 0-0 H [facility] Blasts/100 leukocytes in Blood by Manual count 9 % [facility] Confirmed by DR. PASCAL Blasts [#/volume] in Blood by Manual count 0.11 10*3/uL 0-0 H [facility] ID Date Data Source [id number] 03/07/2020 08:13:34 AM [facility] Name Value Range Interpretation Code Description Data Cheyenne rce(s) Supporting Document(s) Glucose [Mass/volume] in Capillary blood by Glucometer 162 mg/dL 70- 140 H [facility] ID Date Data Source [id number] 03/07/2020 01:28:04 AM [facility] XR CHEST FRONTAL ONLY [id number] RESULTI nterpreted by:Adelaida Peña, MDPROCEDURE INFORMATION: Exam: [...] rce(s) Supporting Document(s) ID Date Data Source [id number] 03/12/2020 08:58:45 AM [facility] 03/11/2020,[id number] Name Value Range Interpretation Code Description Data Cheyenne rce(s) Supporting Document(s) ABO and Rh group [Type] in [facility] Performed at [facility], [place], [place] ID Date Data Source [id number] 03/12/2020 08:58:45 AM [facility] Name Value Range Interpretation Code Description Data Cheyenne rce(s) Supporting Document(s) ABO and Rh group [Type] in [facility] Blood group antibody screen [Presence] in Serum or Plasma [facility] Performed at [facility], [place] M ON 10H AT 2220 Blood bank [facility] ID Date Data Source [id number] 03/07/2020 12:47:00 AM EST [facility] Name Value Range Interpretation Code Description Data Cheyenne rce(s) Supporting Document(s) SARS-CoV-2 RNA 2019 nCoV Real-Time RT-PCR: NOT DETECTED [facility] This lab was ordered by [facility] and reported by [facility]. ID Date Data Source [id number] 03/07/2020 09:40:06 AM [facility] Name Value Range Interpretation Code Description Data Cheyenne rce(s) Supporting Document(s) Specimen source [Identifier] of Unspecified specimen [facility] SARS-CoV-2 RNA 2019 nCoV Real-Time RT-PCR: NOT DETECTED [facility] Assay Performed [facility] Patients first test for condition [facility] Patient employed in healthcare setting [facility] Patient has symptoms related to condition [facility] When did you start to experience these symptoms [Date and time] [Phen X] [facility] Patient was hospitalized because of this condition [facility] patient was admitted to ICU for condition [facility] Patient resides in a congregate care setting [facility] status [facility] ID Date Data Source [id number] 03/07/2020 05:34:02 AM [facility] Name Value Range Interpretation Code Description Data Cheyenne rce(s) Supporting Document(s) ABO and Rh group [Type] in Blood [facility] Blood bank comment [facility] ID Date Data Source [id number] 03/07/2020 02:00:03 AM [facility] Name Value Range Interpretation Code Description Data Cheyenne rce(s) Supporting Document(s) Triiodothyronine (T3) Free [Mass/volume] in Serum or Plasma 1.41 pg/mL 2.00-4.40 [facility] ID Date Data Source [id number] 03/07/2020 02:00:03 AM [facility] Name Value Range Interpretation Code Description Data Cheyenne rce(s) Supporting Document(s) Albumin [Mass/volume] in Serum or Plasma by Bromocresol green (BCG) dye binding method 2.9 g[facility].2 [facility] Bilirubin.total [Mass/volume] in Serum or Plasma 0.6 mg/dL <1.2 [facility] Calcium [Mass/volume] in Serum or Plasma 8.1 mg/dL 8.8-10.2 L [facility] Chloride [Moles/volume] in Serum or Plasma 107 mmol/L 98-107 [facility] Creatinine [Mass/volume] in Serum or Plasma 1.51 mg/dL 0.50-0.90 H [facility] Glucose [Mass/volume] in Serum or Plasma 213 mg/dL 70-140 H [facility] Alkaline phosphatase [Enzymatic activity/volume] in Serum or Plasma 80 U/L 35-104 [facility] Potassium [Moles/volume] in Serum or Plasma 4.4 mmol/L 3.4-5.1 [facility] Protein [Mass/volume] in Serum or Plasma 5.0 g/dL 6.4-8.3 L [facility] Sodium [Moles/volume] in Serum or Plasma 137 mmol/L 136-145 [facility] Aspartate aminotransferase [Enzymatic activity/volume] in Se rum or Plasma 6 U/L <32 [facility] Urea nitrogen [Mass/volume] in Serum or Plasma 82 mg/dL 8-23 H [facility] Osmolality of Serum or Plasma by calculation 314 mosm/kg 275-300 H [facility] Creatinine/Urea nitrogen [Mass Ratio] in Serum or Plasma 54 [facility] Bicarbonate [Moles/volume] in Serum 20 mmol/L 22-29 L [facility] Alanine aminotransferase [Enzymatic activity/volume] in Seru m or Plasma 8 U/L <33 [facility] Anion gap 3 in Serum or Plasma 10 mmol/L 8-15 [facility] Glomerular filtration rate/1.73 sq M pre dicted among non-blacks [Volume Rate/Area] in Serum or Plasma by Creatinine-based formula (MDRD) 35 mL/min/1.73m2 >60 L [facility] Glomerular filtration rate/1.73 sq M pre dicted among blacks [Volume Rate/Area] in Serum or Plasma by Creatinine-based formula (MDRD) 41 mL/min/1.73m2 >60 L [facility] ID Date Data Source [id number] 03/07/2020 02:00:03 AM [facility] Name Value Range Interpretation Code Description Data Cheyenne rce(s) Supporting Document(s) Thyroxine (T4) free [Mass/volume] in Serum or Plasma 1.00 ng/dL 0.93- 1.70 [facility] ID Date Data Source [id number] 03/07/2020 02:00:03 AM [facility] Value Range Interpretation Code Description Data Cheyenne rce(s) Supporting Document(s) Thyrotropin [Units/volume] in Serum or Plasma 5.700 u[IU]/mL 0.270-4. 200 H [facility] ID Date Data Source [id number] 03/07/2020 02:20:48 AM [facility] Value Range Interpretation Code Description Data Cheyenne rce(s) Supporting Document(s) Leukocytes [#/volume] in Blood by Automated count 1.3 10*3/uL 4-10 [facility] Called to and read back by Neil beyer RN on at 135 by 1521 Erythrocytes [#/volume] in Blood by Automated count 1.92 10*6/uL 4.1- 5.3 L [facility] Hemoglobin [Mass/volume] in Blood 5.9 g/dL 11.5-15.5 [facility] Hematocrit [Volume Fraction] of Blood by Automated count 17.0 % 3 6-45 [facility] Called to and read back by Neil beyer RN on at 135 by 1521 Erythrocyte mean corpuscular volume [Entitic volume] by Auto mated count 88.4 fL 80-96 [facility] Erythrocyte mean corpuscular hemoglobin [Entitic mass] by Automated count 30.8 pg 27-33 [facility] Erythrocyte mean corpuscular hemoglobin concentration [Mass/volume] by Automated count 34.9 g/dL 32.0-36.0 [facility] Erythrocyte distribution width [Ratio] by Automated count 13.6 % 11.5-14.5 [facility] Platelets [#/volume] in Blood by Automated count 12 10*3/uL 150-400 [facility] Called to and read back by Neil beyer RN on at 135 by 1521Confirmed ID Date Data Source [id number] 03/07/2020 12:28:08 AM [facility] Name Value Range Interpretation Code Description Data Cheyenne rce(s) Supporting Document(s) Glucose [Mass/volume] in Capillary blood by Glucometer 198 mg/dL 70- 140 H [facility] ID Date Data Source [id number] 03/14/2020 11:07:00 AM [facility] Cytogenetics ReportName: PATRICIA COTTON V.MR N: [id number] Number: [id number] Date: 03/07/2020 00:00Received Date: 03/12/2020 15:45Physician(s): LISA VELEZ MD BEDoris,SHELLY VALLEJOpecimen(s) ReceivedA: Bone Marrow - Interphase FISH onlyClinical [id number] patient with history of CMML, concern for conversion to AMLTEST REQUESTED/PERFORMED: Fluorescence in situ hybridization - FISH DiagnosisFluorescence in situ hybridization (FISH) could not be performed due toinsufficient specimen. 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 Please correlate with the concurrentHematopathology report [id number]. Electronically Signed By Yokasta Curran MD, PhD AttendingPathologist 03/14/2020 11:07:08 Name Value Range Interpretation Code Description Data Cheyenne rce(s) Supporting Document(s) ID Date Data Source [id number] 03/09/2020 04:57:00 PM [facility] Hematopathology ReportName: PATRICIA COTTONMRN: [id number] Number: [id number] Date: 03/07/2020 00:00Received Date: 03/07/2020 13:38Physician(s): LISA VELEZ MD GILLIGAN, DIANA M,MDSpecimen(s) ReceivedA: Bone Marrow Biopsy, RPIC; Received 1 biopsy and 10 touch prepsB: Blood; Received 4 PB smearsC: Core Biopsy, Flow Cytometry; [facility] HistoryHistory of CMML, concern for conversion to [...] Signed Out03/08/2020 InterpretationPERIPHERAL BLOOD: CBC performed at [facility] #[id number](03/07/20)WBC 1.2 K/uLRBC *2.06 M/uLHgb *6.3 g/dLHct 18.0 [...] % Blasts 3.0 % Neutrophils 1.0 % Jmiubmjyipg67.0 % Lymphocytes--------100.0 % No bone marrow aspirate [...] Signed Out03/08/2020 InterpretationAcute Panel for Yury Iqbal [facility] 141 [id number] following markers were assayed: CD45 (gate), CD1a, CD2, CD3, CD4, CD5,CD7, CD8, CD10, CD11b, CD13, CD14, CD15, CD19, CD20, CD25,CD33, CD34,CD38, CD41, CD56, CD57, CD64, CD71, CD117, CD123, [place], Lambda, andHLA-DR.Events: [id number]: Routinely a minimum of 50,000 events are collected in each paneltube. Due to sample cellularity and/or processing this number was notachievable for this sample.Viability: 72%NOTE: Results are based on a sample that was partially compromised due tothe presence of greater than 20% non-viable leukocytes.Flow Cytometry Differential (CD45/SSC)Lymphocyte [place]: 23%CD45 dim [place]: 3%Monocyte [place]: 1%Granulocyte [place]: 15%Nucleated/Erythroid [place]: 37%The lymphocyte gate showsB-Cells (CD19): 3%Solway/Lambda Ratio: 2.3T- Cells (CD3): 95%CD4/CD8 Ratio: 0.6NK Cells: 2%Results (expressed as % of LYMPHOCYTE gate):B-Cell Markers: Solway = 1.9, Lambda = 0.9, CD19 = 3, CD20 = 3, CD19/10 =1, CD19/CD5 = 2, CD38/CD20 = 1Light chain as % of B-Cells: CD19/Solway = 56, CD19/Lambda = 25T-Cell Markers: CD2 = 96, CD3 = 95, CD3/CD4 = 34, CD5 = 88, CD7 = 87,CD3/CD8 = 57, CD3/57 = 30NK Cell Markers: CD56 = 9, CD57 = 33Other Markers: CD10 = 5, CD38 = 42Results (expressed as % of BLAST gate):B-Cell Markers: Solway = 1.7, Lambda = 0.4, CD19 = [...] were developed and theirperformance characteristics determined by [facility] Pathology department.They have not been cleared or approved by the US Food and DrugAdministration. The FDA has determined that such clearance or approval isnot necessary. Name Value Range Interpretation Code Description Data Cheyenne rce(s) Supporting Document(s) ID Date Data Source [id number] 03/06/2020 02:17:00 PM EST [facility] Name Value Range Interpretation Code Description Data Cheyenne rce(s) Supporting Document(s) SARS-CoV-2 (COVID 19) NEGATIVE - SARS-CoV-2 (COVID19) [facility] This lab was ordered by [facility] a nd reported by [facility]. ID Date Data Source [id number] 02/24/2020 04:54:23 PM EST [facility] Name Value Range Interpretation Code Description Data Cheyenne rce(s) Supporting Document(s) &PDF [facility] JTQDCn3mUfRWUfBp11/NSVkmWBYng5UvOFfiFSe7OLxaYYOdI7DdzNuwIYxSTUMxAxNWDLCDMWIXDP3w FcG [file] ICAgICAgICAgICAgICAgICAgICAgICAgICAgICAgICAgICAgICAgICAgICAgICAgICAgICAgICAgICAg ICAgICAgICAgICAgICAgICAgICAgICAgDQogICAgIC AgICAgICAgICAgICAgICAgICAgICAgICAgICAgICAgICAgICAgICAgICAgICAgICAgICAgICAgICAgIC AgICAgICAgICAgICAgICAgICAgICAgICAgICAgICAgICAgDQogICAgICAgICAgICAgICAgICAgICAgIC AgICAgICAgICAgICAgICAgICAgICAgICAgICAgICAg ICAgICAgICAgICAgICAgICAgICAgICAgICAgICAgICAgICAgICAgICAgICAgDQogICAgICAgICAgICAg ICAgICAgICAgICAgICAgICAgICAgICAgICAgICAgICAgICAgICAgICAgICAgICAgICAgICAgICAgICAg ICAgICAgICAgICAgICAgICAgICAgICAgICAgDQogIC AgICAgICAgICAgICAgICAgICAgICAgICAgICAgICAgICAgICAgICAgICAgICAgICAgICAgICAgICAgIC AgICAgICAgICAgICAgICAgICAgICAgICAgICAgICAgICAgICAgDQogICAgICAgICAgICAgICAgICAgIC AgICAgICAgICAgICAgICAgICAgICAgICAgICAgICAg ICAgICAgICAgICAgICAgICAgICAgICAgICAgICAgICAgICAgICAgICAgICAgICAgDQogICAgICAgICAg ICAgICAgICAgICAgICAgICAgICAgICAgICAgICAgICAgICAgICAgICAgICAgICAgICAgICAgICAgICAg ICAgICAgICAgICAgICAgICAgICAgICAgICAgICAgDQ ogICAgICAgICAgICAgICAgICAgICAgICAgICAgICAgICAgICAgICAgICAgICAgICAgICAgICAgICAgIC AgICAgICAgICAgICAgICAgICAgICAgICAgICAgICAgICAgICAgICAgDQogICAgICAgICAgICAgICAgIC AgICAgICAgICAgICAgICAgICAgICAgICAgICAgICAg ICAgICAgICAgICAgICAgICAgICAgICAgICAgICAgICAgICAgICAgICAgICAgICAgICAgDQogICAgICAg ICAgICAgICAgICAgICAgICAgICAgICAgICAgICAgICAgICAgICAgICAgICAgICAgICAgICAgICAgICAg ICAgICAgICAgICAgICAgICAgICAgICAgICAgICAgIC GbOUa2J0fwWHZeGWMnMZ3qOXq4Hs0+TBcNEhLaVUA2vlDffL5LCD4oi3RgAVxgXZHug3GkXQr7BG4UVC ClTLiuMN5MYMehxv3FJVEsUXMnqJCQb8msRmBkPJQ3FDLeUxblDI5CVFSpK2usosKiDZHiDZANWIqmAX NBKU5JAeQwW4LzwH03VJCKIx8+DQplbmRvYmoNCjE4 EHTgm7PfGFz3XV1XQLNcXTjgDF8YOXNjaO5dTFsaQA4NDcLrSxThRLETClUqO88xfHQjHZe0J9KnFdCc ZGVkRmlsZXMgPDwvTmFtZXMgWyBdDQogID4+ID4+HDbgJT5YTTcavwCrDZZgNg7DMNTnLBJ8FRZdhNMm RVggTOTKWKthRF2UmJCnNQJ5fR3aRQaySQAlAHPdS4 oUQbBsiCzmVD77fIxjnyEuvVUjRId+Zg6KEH0wy3KzXDr8jrYgXSkzKWE0CQlaJTNfFLByFXGpPEJ0DE I4BHBAXiXnXPDaNQObIHpkIOLrDUDccp5TLBBiJKKaHPTuTlFxUWTyQIJwVMswPGSnTYO9KWX5THCgWX ApAT9BNtQsDMTxYIRvVXIsYHNxJFNuec8ZEOVfNMMw Vhr3WcXcDDNqCNNnQOwtNEHcBDXpOHw3VOTyBTHhQR9YHcXuQBMaYFB2IJXfIPFiRFMeyh9ISXZsFNFj KHKoAIXcCMTrVMOvEHypSXWnEFF8CVw6FSWkTALpGK1JGjNdHSZtBVUrOnPsXQHbTIXqml1KWCPmCDWs DLK7ZYJpTHDaXSZuWXqsBHLcCEV5UsGiQGZsLWGdWL 2BPrDoHFPlLQE2RKWyPVMvGIHsdf5BLSSzCVIiRmddFHDvVKVpHBYyUWszYKSjWTXsWckjWFAeIKPqLG 3XNsWfZAAbGLM5DRZuPBJnGQVrfb0LMERrWLSsZWtrTQSaMFBxRMSzTXmfJLEaRDR2KpS5PAPoUOYlGR 1KEoZePYlmZTGIUoi4PNbtS4c7NBVxUH5TG8Zaf8Qq JCmbIJIUZOguDF2yotQzSZXuCk8VV3rEAaiaWOd6QcQ4X0NyBoKrPAMoHYXdWqZeZrmnVgDkBGBvUX3h IOR1VIKhXMUhSyKsDJEfCBQ0AzWcZHEeE7JySPPeYBBsAdAqCD1LAj4FNpT2PKN2mBCtWp6KKDd0YKTI NuOnFD3RODf= ID Date Data Source [id number] 02/16/2020 10:16:00 AM EST [facility] Name Value Range Interpretation Code Description Data Cheyenne rce(s) Supporting Document(s) SARS coronavirus 2 RNA [Presence] in Res piratory specimen by JOSE ROBERTO with probe detection [facility] This lab was ordered by [facility] a nd reported by [facility]. ID Date Data Source [id number] 11/03/2019 11:20:00 AM EDT [facility] Name Value Range Interpretation Code Description Data Cheyenne rce(s) Supporting Document(s) &PDF [facility] NHTSDr2vQwRZAuXr56/VTRqkHZCxp8NvVFurUEj4KYojZTIfZ8MxgMshDJsPMAIoDmGRLLIBHIKPKH7e oRX [file] ICAgICAgICAgICAgICAgICAgICAgICAgICAgICAgIC AgICAgICAgICAgICAgICAgICAgICAgICAgICAgICAgICAgICAgDQogICAgICAgICAgICAgICAgICAgIC AgICAgICAgICAgICAgICAgICAgICAgICAgICAgICAgICAgICAgICAgICAgICAgICAgICAgICAgICAgIC AgICAgICAgICAgICAgICAgICAgDQogICAgICAgICAg ICAgICAgICAgICAgICAgICAgICAgICAgICAgICAgICAgICAgICAgICAgICAgICAgICAgICAgICAgICAg ICAgICAgICAgICAgICAgICAgICAgICAgICAgICAgDQogICAgICAgICAgICAgICAgICAgICAgICAgICAg ICAgICAgICAgICAgICAgICAgICAgICAgICAgICAgIC AgICAgICAgICAgICAgICAgICAgICAgICAgICAgICAgICAgICAgICAgDQogICAgICAgICAgICAgICAgIC AgICAgICAgICAgICAgICAgICAgICAgICAgICAgICAgICAgICAgICAgICAgICAgICAgICAgICAgICAgIC AgICAgICAgICAgICAgICAgICAgICAgDQogICAgICAg ICAgICAgICAgICAgICAgICAgICAgICAgICAgICAgICAgICAgICAgICAgICAgICAgICAgICAgICAgICAg ICAgICAgICAgICAgICAgICAgICAgICAgICAgICAgICAgDQogICAgICAgICAgICAgICAgICAgICAgICAg ICAgICAgICAgICAgICAgICAgICAgICAgICAgICAgIC AgICAgICAgICAgICAgICAgICAgICAgICAgICAgICAgICAgICAgICAgICAgDQogICAgICAgICAgICAgIC AgICAgICAgICAgICAgICAgICAgICAgICAgICAgICAgICAgICAgICAgICAgICAgICAgICAgICAgICAgIC AgICAgICAgICAgICAgICAgICAgICAgICAgDQogICAg ICAgICAgICAgICAgICAgICAgICAgICAgICAgICAgICAgICAgICAgICAgICAgICAgICAgICAgICAgICAg ICAgICAgICAgICAgICAgICAgICAgICAgICAgICAgICAgICAgDQogICAgICAgICAgICAgICAgICAgICAg ICAgICAgICAgICAgICAgICAgICAgICAgICAgICAgIC WsJNPyUWUjMSKbSEImTJJjNUUlOATfEEYjTOWpFSZhSZZkASZsJNPuMKTbPDDfXZd7V1inNSVyWKUvGA 2nWEz7Vw1+SYaVYfYnSWM3vvNpuK1VVC7no9RsMDkzLCYmt3MuYAd7RI1IYEVlOFzvLB1ERXyxxw2ZNG QfOHBfzIWXn6piBiOmAKD4AGSpYideFU7KJKCmQ4yn oaOuWYMfZIHYTExxFUYSLY0VOfLsT7FfkT08FLEGNd1+HImeeoJbGdnHFeR9LCXcm0DtPMl7OW1JTOUf QKpuJR2FSWOfrA6cUXxrWB7UDkJwZmYsUAGYHaKqM07abGZiMZo5A5HdFsYfRFTfGtabJVOvDQrsYjIb ZXMgWyBdDQogID4+ID4+VLloNG6AIRepovJvUISjCl 7VYRYqYIP6ANAaxAGdENjiVAGJJEmvER1TcKDzGAT8jM8rVYksGFMhGLExF6rZPpMypDyaZS04xPpmrc VsbCBdDQo+Ac4XVV1ia7IvXRu9gkFqPIfvMBM0HQzcNFXoGVZwUOLgFXV8KXQ1WEQLMtLmDZJmBUVvKS mcPWLbSQWsvn8UUEHjFIAiGXR7RoZgTDOhUCZsUJaq DKBzLXT4HeZfKDXkHZSjJD3POcLgKLMfHQVsUXIuYVMbROOtaf7GKLGqXANwGqa9FjDdAPNnBTJiKKmq OFYeNLVlASD6QYUyIKHaMV5HCkSvKQWyZMW8RVBwYJSnYRRmyw5ERPTrMGBvCFI4KIVsPFFjVTRwGTvg JTAwPPI8MTY7RRUfVZWfLP5OQmErOZEwWSQdTVDvTJ GeCXBcht3NVXJtJFNwSSZ7CaHgXNUxXWMjBQpgSGQdDNE3BbT6PLJsVKPhFU1BDlAiTXRkEKU7UDgzPK CtIVPese7FKBSsZBYvWul7NKKuOMLaNWMqPJibLDFrJMSeCTQ4VLCkFBIbCE0WGcIjYSSxWGI2WAUgWK HeTCFnwi8QTDOuODVhLNv8ZFPxKVBzYRRwCNkuJKJm VCM5VcE8COZnHHAsVG9NJbWzAIshFOJCXsz6UOjbY3q9YGGlST6BV9Uju3NrXRubUUMWXCfsZI4povTz BMTdSs8SB6bWQmm6FTJoEZa8TWulULX9NZdeXUWgZDU8LcFpANtdFcTgMf2oPKtnVTR3ADvgSXO1Fatt TDHbYIJtHsj8TPL3YPD1HlWlYsPxDX6AGz4YVtL0YTW1uKWdLf7VWJx7CMWLPhWwWP8XCCs= ID Date Data Source LIPID PANEL (CARDIAC RISK) 05/30/2019 12:00:00 AM EDT eCW1 ( Formerly [facility]) Name Value Range Interpretation Code Description Data Cheyenne rce(s) Supporting Document(s) Triglyceride [Mass/volume] in Serum or Plasma by calculation 168 <150 TRIGLYCERIDES LEVEL eCW1 (Formerly [facility]) 52 NON-HDL-C eCW1 ([facility]) Cholesterol [Moles/volume] in Serum or Plasma 81 <200 CHOLESTEROL LEVEL eCW1 ([facility]) Cholesterol in LDL [Mass/volume] in Serum or Plasma by calculation 18 <100 LDL CHOLESTEROL eCW1 ([facility]ly [facility]) Cholesterol in HDL [Moles/volume] in Serum or Plasma 29 >40 HDL CHOLESTEROL eCW1 ([facility]ly [facility]) 2.793 <5 CHOLESTEROL RISK RATIO eCW1 ([facility]) ID Date Data Source [id number] 05/30/2019 12:00:00 AM EDT eCW1 ([facility]) Name Value Range Interpretation Code Description Data Cheyenne rce(s) Supporting Document(s) Hemoglobin A1c/Hemoglobin.total in Blood 6.9 HEMOGLOBIN A1c eCW1 (Formerly [facility]) ID Date Data Source Basic Metabolic Profile (BMP) 05/12/2019 12:00:00 AM EDT eCW 1 (Formerly [facility]) Name Value Range Interpretation Code Description Data Cheyenne rce(s) Supporting Document(s) 79 70-100 GLUCOSE, FASTING eCW1 ([facility]) 4.5 3.5-5.1 POTASSIUM SERUM eCW1 ([facility]) 39 7-18 BLOOD UREA NITROGEN eCW1 (Counts include 234 beds at the [facility]) 25.5 >45 GLOMERULAR FILTRATION RATE eCW 1 (Formerly [facility]) 140 136-145 SODIUM LEVEL eCW1 ([facility]) 2.08 0.55-1.30 CREATININE FOR GFR eCW1 ([facility]) 106 98-107 CHLORIDE LEVEL eCW1 ([facility]ly [facility]) 8.7 8.8-10.2 CALCIUM LEVEL eCW1 (Formerly [facility]) 28 21-32 CARBON DIOXIDE LEVEL eCW1 ([facility]) ID Date Data Source CBC with Differential 05/12/2019 12:00:00 AM EDT eCW1 ([facility]) Name Value Range Interpretation Code Description Data Cheyenne rce(s) Supporting Document(s) 2.92 4.00-5.40 RED BLOOD COUNT eCW1 ([facility]) 12.0 4.0-10.0 WHITE BLOOD COUNT eCW1 ([facility]) 7.9 12.0-15.5 HEMOGLOBIN eCW1 ([facility]) 90.8 80.0-96.0 MEAN CORPUSCULAR VOLUME e CW1 (Formerly [facility]) 27.1 27.0-33.0 MEAN CORPUSCULAR HEMOGLOB IN eCW1 (Formerly [facility]) 26.5 36.0-47.0 HEMATOCRIT eCW1 ([facility]) 29.8 32.0-36.5 MEAN CORPUSCULAR HGB CONC eCW1 (Formerly [facility]) 24 150-450 PLATELET COUNT, AUTOMATED eCW1 ([facility]ly [facility]) 21.2 11.5-14.5 RED CELL DISTRIBUTION WID TH eCW1 (Formerly [facility]) ID Date Data Source [id number] 04/14/2019 12:50:40 PM [facility] Name Value Range Interpretation Code Description Data Cheyenne rce(s) Supporting Document(s) Discharge Summary [facility] [id number]/UFBddSEVlq4H[id number] lbm [file] [id number] ID Date Data Source [id number] 04/09/2019 11:58:57 AM [facility] Name Value Range Interpretation Code Description Data Cheyenne rce(s) Supporting Document(s) Glucose [Mass/volume] in Capillary blood by Glucometer 223 mg/dL 70- 140 H [facility] ID Date Data Source [id number] 04/09/2019 07:32:05 AM [facility] Name Value Range Interpretation Code Description Data Cheyenne rce(s) Supporting Document(s) Glucose [Mass/volume] in Capillary blood by Glucometer 195 mg/dL 70- 140 H [facility] ID Date Data Source [id number] 04/09/2019 01:18:22 AM [facility] Name Value Range Interpretation Code Description Data Cheyenne rce(s) Supporting Document(s) Bicarbonate [Moles/volume] in Serum 20 mmol/L 22-29 L [facility] Chloride [Moles/volume] in Serum or Plasma 97 mmol/L 98-107 L [facility] Creatinine [Mass/volume] in Serum or Plasma 2.46 mg/dL 0.50-0.90 H [facility] Glucose [Mass/volume] in Serum or Plasma 131 mg/dL 70-140 [facility] Potassium [Moles/volume] in Serum or Plasma 4.8 mmol/L 3.4-5.1 [facility] Sodium [Moles/volume] in Serum or Plasma 130 mmol/L 136-145 L [facility] Urea nitrogen [Mass/volume] in Serum or Plasma 72 mg/dL 8-23 H [facility] Anion gap 3 in Serum or Plasma 13 mmol/L 8-15 [facility] Osmolality of Serum or Plasma by calculation 293 mosm/kg 275-300 [facility] Creatinine/Urea nitrogen [Mass Ratio] in Serum or Plasma 29 [facility] Calcium [Mass/volume] in Serum or Plasma 9.1 mg/dL 8.8-10.2 [facility] Glomerular filtration rate/1.73 sq M pre dicted among non-blacks [Volume Rate/Area] in Serum or Plasma by Creatinine-based formula (MDRD) 20 mL/min/1.73m2 >60 L [facility] Glomerular filtration rate/1.73 sq M pre dicted among blacks [Volume Rate/Area] in Serum or Plasma by Creatinine-based formula (MDRD) 23 mL/min/1.73m2 >60 L [facility] ID Date Data Source [id number] 04/09/2019 01:18:22 AM [facility] Name Value Range Interpretation Code Description Data Cheyenne rce(s) Supporting Document(s) Urate [Mass/volume] in Serum or Plasma 11.2 mg/dl 2.4-5.7 H [facility] ID Date Data Source [id number] 04/09/2019 02:39:14 AM [facility] Name Value Range Interpretation Code Description Data Cheyenne rce(s) Supporting Document(s) Leukocytes [#/volume] in Blood by Automated count 21.1 10*3/uL 4-10 H [facility] Erythrocytes [#/volume] in Blood by Automated count 3.02 10*6/uL 4.1- 5.3 [facility] Hemoglobin [Mass/volume] in Blood 8.5 g/dL 11.5-15.5 [facility] Hematocrit [Volume Fraction] of Blood by Automated count 26.6 % 3 6-45 [facility] Erythrocyte mean corpuscular volume [Entitic volume] by Auto mated count 88.0 fL 80-96 [facility] Erythrocyte mean corpuscular hemoglobin [Entitic mass] by Automated count 28.0 pg 27-33 [facility] Erythrocyte mean corpuscular hemoglobin concentration [Mass/volume] by Automated count 31.8 g/dL 32.0-[facility].0 [facility] width [Ratio] by Automated count 23.1 % 11.5-14.5 [facility] Platelets [#/volume] in Blood by Automated count 31 10*3/uL 150-400 [facility] No Significant Change Since Last Result CalledManual Platelet Count PerformedConfirmed 4060 JWYOccasional Large Platelets seen on slide Differential cell count method - Blood [facility] Neutrophils/100 leukocytes in Blood by Automated count 37 % [facility] Lymphocytes/100 leukocytes in Blood by Automated count 19 % [facility] Monocytes/100 leukocytes in Blood by Automated count 28 % [facility] Basophils/100 leukocytes in Blood by Automated count 3 % [facility] Neutrophils [#/volume] in Blood by Automated count 7.91 10*3/uL 1.8-7 .0 H [facility] Lymphocytes [#/volume] in Blood by Automated count 4.05 10*3/uL 1.2-4 .0 [facility] Monocytes [#/volume] in Blood by Automated count 5.89 10*3/uL 0-0.8 H [facility] Confirmed by 4060 jwy Basophils [#/volume] in Blood by Automated count 0.61 10*3/uL 0-0.2 H [facility] Confirmed by 1521 Nucleated erythrocytes/100 leukocytes [Ratio] in Blood by Automated count 9 /100{WBCs} 0-0 H [facility] Confirmed by 4060 jwy Band form neutrophils/100 leukocytes in Blood by Manual count 1 % [facility] Myelocytes/100 leukocytes in Blood by Manual count 5 % [facility] Metamyelocytes/100 leukocytes in Blood by Manual count 7 % [facility] Band form neutrophils [#/volume] in Blood by Manual count 0.21 10*3 /uL 0-0.6 [facility] Myelocytes [#/volume] in Blood by Manual count 1.01 10*3/uL 0-0 H [facility] Metamyelocytes [#/volume] in Blood by Manual count 1.41 10*3/uL 0-0 [facility] Anisocytosis [Presence] in Blood by Light microscopy [facility] Microcytes [Presence] in Blood by Light [facility] Poikilocytosis [Presence] in Blood by Light [facility] Stomatocytes [Presence] in Blood by [facility] ID Date Data Source [id number] 04/08/2019 09:16:43 PM [facility] Value Range Interpretation Code Description Data Cheyenne rce(s) Supporting Document(s) Glucose [Mass/volume] in Capillary blood by Glucometer 169 mg/dL 70- 140 [facility] ID Date Data Source [id number] 04/08/2019 04:58:01 PM [facility] Value Range Interpretation Code Description Data Cheyenne rce(s) Supporting Document(s) Glucose [Mass/volume] in Capillary blood by Glucometer 175 mg/dL 70- 140 [facility] ID Date Data Source [id number] 04/08/2019 12:07:39 PM [facility] Value Range Interpretation Code Description Data Cheyenne rce(s) Supporting Document(s) Glucose [Mass/volume] in Capillary blood by Glucometer 218 mg/dL 70- 140 [facility] ID Date Data Source [id number] 04/08/2019 07:49:38 AM [facility] Value Range Interpretation Code Description Data Cheyenne rce(s) Supporting Document(s) Glucose [Mass/volume] in Capillary blood by Glucometer 173 mg/dL 70- 140 H [facility] ID Date Data Source [id number] 04/08/2019 01:37:36 AM [facility] Value Range Interpretation Code Description Data Cheyenne rce(s) Supporting Document(s) Bicarbonate [Moles/volume] in Serum 21 mmol/L 22-29 L [facility] Chloride [Moles/volume] in Serum or Plasma 96 mmol/L 98-107 L [facility] Creatinine [Mass/volume] in Serum or Plasma 2.33 mg/dL 0.50-0.90 H [facility] Glucose [Mass/volume] in Serum or Plasma 188 mg/dL 70-140 H [facility] Potassium [Moles/volume] in Serum or Plasma 4.6 mmol/L 3.4-5.1 [facility] Sodium [Moles/volume] in Serum or Plasma 131 mmol/L 136-145 L [facility] Urea nitrogen [Mass/volume] in Serum or Plasma 71 mg/dL 8-23 H [facility] Anion gap 3 in Serum or Plasma 14 mmol/L 8-15 [facility] Osmolality of Serum or Plasma by calculation 298 mosm/kg 275-300 [facility] Creatinine/Urea nitrogen [Mass Ratio] in Serum or Plasma 30 [facility] Calcium [Mass/volume] in Serum or Plasma 9.4 mg/dL 8.8-10.2 [facility] Glomerular filtration rate/1.73 sq M pre dicted among non-blacks [Volume Rate/Area] in Serum or Plasma by Creatinine-based formula (MDRD) 21 mL/min/1.73m2 >60 L [facility] Glomerular filtration rate/1.73 sq M pre dicted among blacks [Volume Rate/Area] in Serum or Plasma by Creatinine-based formula (MDRD) 24 mL/min/1.73m2 >60 L [facility] ID Date Data Source [id number] 04/08/2019 01:37:36 AM [facility] Value Range Interpretation Code Description Data Cheyenne rce(s) Supporting Document(s) Urate [Mass/volume] in Serum or Plasma 11.3 mg/dl 2.4-5.7 H [facility] ID Date Data Source [id number] 04/08/2019 02:37:03 AM [facility] Name Value Range Interpretation Code Description Data Cheyenne rce(s) Supporting Document(s) Leukocytes [#/volume] in Blood by Automated count 18.3 10*3/uL 4-10 H [facility] Confirmed Erythrocytes [#/volume] in Blood by Automated count 3.06 10*6/uL 4.1- 5.3 L [facility] Hemoglobin [Mass/volume] in Blood 8.6 g/dL 11.5-15.5 [facility] Hematocrit [Volume Fraction] of Blood by Automated count 27.0 % 3 6-45 L [facility] Erythrocyte mean corpuscular volume [Entitic volume] by Auto mated count 88.2 fL 80-96 [facility] Erythrocyte mean corpuscular hemoglobin [Entitic mass] by Automated count 28.1 pg 27-33 [facility] Erythrocyte mean corpuscular hemoglobin concentration [Mass/volume] by Automated count 31.8 g/dL 32.0-[facility].0 [facility] distribution width [Ratio] by Automated count 22.6 % 11.5-14.5 H [facility] Platelets [#/volume] in Blood by Automated count 16 10*3/uL 150-400 [facility] ConfirmedNo significant change since t result called Differential cell count method - Blood [facility] Neutrophils/100 leukocytes in Blood by Automated count 35 % [facility] Lymphocytes/100 leukocytes in Blood by Automated count 14 % [facility] Monocytes/100 leukocytes in Blood by Automated count 22 % [facility] Eosinophils/100 leukocytes in Blood by Automated count 2 % [facility] Basophils/100 leukocytes in Blood by Automated count 1 % [facility] Neutrophils [#/volume] in Blood by Automated count 6.64 10*3/uL 1.8-7 .0 [facility] Lymphocytes [#/volume] in Blood by Automated count 2.62 10*3/uL 1.2-4 .0 [facility] Monocytes [#/volume] in Blood by Automated count 4.02 10*3/uL 0-0.8 H [facility] Eosinophils [#/volume] in Blood by Automated count 0.36 10*3/uL 0-0.5 [facility] Basophils [#/volume] in Blood by Automated count 0.17 10*3/uL 0-0.2 [facility] Nucleated erythrocytes/100 leukocytes [Ratio] in Blood by Automated count 6 /100{WBCs} 0-0 H [facility] Band form neutrophils/100 leukocytes in Blood by Manual count 1 % [facility] Myelocytes/100 leukocytes in Blood by Manual count 12 % [facility] Metamyelocytes/100 leukocytes in Blood by Manual count 13 % [facility] Confirmed by 1663. Band form neutrophils [#/volume] in Blood by Manual count 0.17 10*3 /uL 0-0.6 [facility] Myelocytes [#/volume] in Blood by Manual count 2.26 10*3/uL 0-0 H [facility] Metamyelocytes [#/volume] in Blood by Manual count 2.45 10*3/uL 0-0 H [facility] Acanthocytes [Presence] in Blood by Light microscopy [facility] Anisocytosis [Presence] in Blood by Light microscopy [facility] Schistocytes [Presence] in Blood by Light microscopy [facility] ID Date Data Source [id number] 04/13/2019 07:05:29 AM [facility] Name Value Range Interpretation Code Description Data Cheyenne rce(s) Supporting Document(s) Cytomegalovirus DNA [Units/volume] (sangita l load) in Plasma by Probe and target amplification method Negative [facility] (NOTE)No CMV DNA detected.The quantitati ve range of this assay is 200 to 1 million IU/mL.This test was developed and its performance characteristicsdetermined by [employer]. It has not been cleared or approved by theFood and Drug Administration. The FDA has determined that suchclearance or approval is not necessary.Performed At: [id number] [place], [place] [id number] Waldron MD Ph:[phone] Cytomegalovirus DNA [log units/volume] ( viral load) in Plasma by Probe and target amplification method [facility] (NOTE)Unable to calculate result since n on-numeric result obtained forcomponent test. ID Date Data Source [id number] 04/07/2019 09:45:54 PM [facility] Name Value Range Interpretation Code Description Data Cheyenne rce(s) Supporting Document(s) Glucose [Mass/volume] in Capillary blood by Glucometer 196 mg/dL 70- 140 H [facility] ID Date Data Source [id number] 04/07/2019 04:51:37 PM [facility] Value Range Interpretation Code Description Data Cheyenne rce(s) Supporting Document(s) Glucose [Mass/volume] in Capillary blood by Glucometer 236 mg/dL 70- 140 [facility] ID Date Data Source [id number] 04/07/2019 11:42:45 AM [facility] Value Range Interpretation Code Description Data Cheyenne rce(s) Supporting Document(s) Glucose [Mass/volume] in Capillary blood by Glucometer 258 mg/dL 70- 140 [facility] ID Date Data Source [id number] 04/07/2019 09:59:47 AM [facility] Value Range Interpretation Code Description Data Cheyenne rce(s) Supporting Document(s) Urate [Mass/volume] in Serum or Plasma 12.1 mg/dl 2.4-5.7 [facility] ID Date Data Source [id number] 04/07/2019 01:26:38 PM [facility] Value Range Interpretation Code Description Data Cheyenne rce(s) Supporting Document(s) Triiodothyronine (T3) Free [Mass/volume] in Serum or Plasma 2.02 pg/mL 2.00-4.40 [facility] ID Date Data Source [id number] 04/07/2019 01:26:38 PM [facility] Value Range Interpretation Code Description Data Cheyenne rce(s) Supporting Document(s) Thyroxine (T4) free [Mass/volume] in Serum or Plasma 1.24 ng/dL 0.93- 1.70 [facility] ID Date Data Source [id number] 04/07/2019 08:09:49 AM [facility] Value Range Interpretation Code Description Data Cheyenne rce(s) Supporting Document(s) Glucose [Mass/volume] in Capillary blood by Glucometer 180 mg/dL 70- 140 [facility] ID Date Data Source [id number] 04/07/2019 01:51:09 AM [facility] Value Range Interpretation Code Description Data Cheyenne rce(s) Supporting Document(s) HIV 1+2 Ab+HIV1 p24 Ag [Presence] in Serum or Plasma by Immu noassay Non Reactive [facility] Negative for HIV-1 p24 antigenand HIV-1/ HIV-2 antibodies. Nolaboratory evidence of HIVinfection. ID Date Data Source [id number] 04/11/2019 02:06:05 PM [facility] Name Value Range Interpretation Code Description Data Cheyenne rce(s) Supporting Document(s) Cytomegalovirus IgM Ab [Units/volume] in Serum by Immunoassay 0.0-29.9 [facility] (NOTE) Neg ative <30.0 Equivocal 30.0 - 34.9 Positive >34.9A positive result is generally indicative of acuteinfection, reactivation or persistent IgM production.Performed At: RN [facility] [address] [id number] Griffin MD Ph:[phone] ID Date Data Source [id number] 04/07/2019 01:36:55 AM [facility] Name Value Range Interpretation Code Description Data Cheyenne rce(s) Supporting Document(s) Bicarbonate [Moles/volume] in Serum 22 mmol/L 22-29 [facility] Chloride [Moles/volume] in Serum or Plasma 96 mmol/L 98-107 L [facility] Creatinine [Mass/volume] in Serum or Plasma 2.37 mg/dL 0.50-0.90 H [facility] Glucose [Mass/volume] in Serum or Plasma 190 mg/dL 70-140 H [facility] Potassium [Moles/volume] in Serum or Plasma 4.6 mmol/L 3.4-5.1 [facility] Sodium [Moles/volume] in Serum or Plasma 131 mmol/L 136-145 L [facility] Urea nitrogen [Mass/volume] in Serum or Plasma 67 mg/dL 8-23 H [facility] Anion gap 3 in Serum or Plasma 13 mmol/L 8-15 [facility] Osmolality of Serum or Plasma by calculation 296 mosm/kg 275-300 [facility] Creatinine/Urea nitrogen [Mass Ratio] in Serum or Plasma 28 [facility] Calcium [Mass/volume] in Serum or Plasma 9.9 mg/dL 8.8-10.2 [facility] Glomerular filtration rate/1.73 sq M pre dicted among non-blacks [Volume Rate/Area] in Serum or Plasma by Creatinine-based formula (MDRD) 21 mL/min/1.73m2 >60 L [facility] Glomerular filtration rate/1.73 sq M pre dicted among blacks [Volume Rate/Area] in Serum or Plasma by Creatinine-based formula (MDRD) 24 mL/min/1.73m2 >60 L [facility] ID Date Data Source [id number] 04/07/2019 04:26:05 AM [facility] Name Value Range Interpretation Code Description Data Cheyenne rce(s) Supporting Document(s) Leukocytes [#/volume] in Blood by Automated count 17.9 10*3/uL 4-10 H [facility] Confirmed Erythrocytes [#/volume] in Blood by Automated count 2.99 10*6/uL 4.1- 5.3 [facility] [facility] Hemoglobin [Mass/volume] in Blood 8.5 g/dL 11.5-15.5 L [facility] Hematocrit [Volume Fraction] of Blood by Automated count 26.3 % 3 6-45 L [facility] Erythrocyte mean corpuscular volume [Entitic volume] by Auto mated count 88.0 fL 80-96 [facility] Erythrocyte mean corpuscular hemoglobin [Entitic mass] by Automated count 28.4 pg 27-33 [facility] Erythrocyte mean corpuscular hemoglobin concentration [Mass/volume] by Automated count 32.3 g/[facility].0[facility] width [Ratio] by Automated count 22.6 % 11.5-14.5 H [facility] Platelets [#/volume] in Blood by Automated count 19 10*3/uL 150-400 LL [facility] ConfirmedCalled to and read back by Katrina Cabrera RN, 10H, 04:23. 0673 Differential cell count method - Blood [facility] Neutrophils/100 leukocytes in Blood by Automated count 19 % [facility] Lymphocytes/100 leukocytes in Blood by Automated count 24 % [facility] Monocytes/100 leukocytes in Blood by Automated count 28 % [facility] Eosinophils/100 leukocytes in Blood by Automated count 1 % [facility] Basophils/100 leukocytes in Blood by Automated count 2 % [facility] Neutrophils [#/volume] in Blood by Automated count 3.47 10*3/uL 1.8-7 .0 [facility] Lymphocytes [#/volume] in Blood by Automated count 4.35 10*3/uL 1.2-4 .0 H [facility] Monocytes [#/volume] in Blood by Automated count 5.05 10*3/uL 0-0.8 H [facility] Confirmed by [id number]. Eosinophils [#/volume] in Blood by Automated count 0.18 10*3/uL 0-0.5 [facility] Basophils [#/volume] in Blood by Automated count 0.34 10*3/uL 0-0.2 H [facility] Nucleated erythrocytes/100 leukocytes [Ratio] in Blood by Automated count 12 /100{WBCs} 0-0 H [facility] Band form neutrophils/100 leukocytes in Blood by Manual count 2 % [facility] Variant lymphocytes/100 leukocytes in Blood by Manual count 1 % [facility] Myelocytes/100 leukocytes in Blood by Manual count 14 % [facility] Metamyelocytes/100 leukocytes in Blood by Manual count 9 % [facility] Band form neutrophils [#/volume] in Blood by Manual count 0.34 10*3 /uL 0-0.6 [facility] Lymphocytes [#/volume] in Blood 0.18 10*3/uL 0 H [facility] Myelocytes [#/volume] in Blood by Manual count 2.43 10*3/uL 0-0 H [facility] Metamyelocytes [#/volume] in Blood by Manual count 1.56 10*3/uL 0-0 [facility] Acanthocytes [Presence] in Blood by [facility] Anisocytosis [Presence] in Blood by [facility] Microcytes [Presence] in Blood by [facility] Poikilocytosis [Presence] in Blood by [facility] Polychromasia [Presence] in Blood by [facility] Spherocytes [Presence] in Blood by [facility] ID Date Data Source [id number] 04/07/2019 09:22:13 AM [facility] Value Range Interpretation Code Description Data Cheyenne rce(s) Supporting Document(s) Magnesium [Mass/volume] in Serum or Plasma 3.2 mg/dL 1.6-2.4 H [facility] ID Date Data Source [id number] 04/07/2019 09:22:13 AM [facility] Value Range Interpretation Code Description Data Cheyenne rce(s) Supporting Document(s) Phosphate [Mass/volume] in Serum or Plasma 4.4 mg/dL 2.5-4.5 [facility] ID Date Data Source [id number] 04/08/2019 11:24:44 AM EST [facility] Name Value Range Interpretation Code Description Data Cheyenen rce(s) Supporting Document(s) Cytomegalovirus IgG Ab [Presence] in Serum by Immunoassay Negative A [facility] ID Date Data Source [id number] 04/09/2019 06:05:22 AM [facility] Value Range Interpretation Code Description Data Cheyenne rce(s) Supporting Document(s) Copper [Mass/volume] in Serum or Plasma 123 ug/dL 72-166 [facility] (NOTE)This test was developed and its pe rformance characteristicsdetermined by [facility]. It has not been cleared or approvedby the Food and Drug Administration. Detection Limit = 5Performed At: [facility] [id number] Waldron MD Ph:[phone] ID Date Data Source [id number] 04/09/2019 06:05:23 AM [facility] Value Range Interpretation Code Description Data Cheyenne rce(s) Supporting Document(s) Zinc [Mass/volume] in Serum or Plasma 68 ug/dL 56-134 [facility] (NOTE)This test was developed and its pe rformance characteristicsdetermined by [email or web address]. It has not been cleared or approvedby the Food and Drug Administration. Detection Limit = 5Performed At: [facility] [id number] Waldron MD Ph:[id number] ID Date Data Source [id number] 04/07/2019 01:53:04 AM [facility] Value Range Interpretation Code Description Data Cheyenne rce(s) Supporting Document(s) Hepatitis A virus IgM Ab [Presence] in Serum or Plasma by Im munoassay Non Reactive [facility] Hepatitis B virus core IgM Ab [Presence] in Serum or Plasma by Immunoassay Non Reactive [facility] IgM antibodies to HBc were not detected, does not exclude the possibility of exposure to HBV. Hepatitis C virus Ab [Presence] in Serum or Plasma by Immuno assay Non Reactive [facility] No serological evidence of active infect ion. If recent exposure is suspected, test for HCV RNA. Hepatitis B virus surface Ag [Presence] in Serum or Plasma b y Immunoassay Non Reactive [facility] No active or previous infection. Suscept ible to infection. ID Date Data Source [id number] 04/08/2019 08:42:01 AM [facility] Value Range Interpretation Code Description Data Cheyenne rce(s) Supporting Document(s) Thyroperoxidase Ab [Units/volume] in Serum or Plasma 0.5 IU/mL <9.0 [facility] ID Date Data Source [id number] 04/07/2019 01:08:00 AM [facility] Value Range Interpretation Code Description Data Cheyenne rce(s) Supporting Document(s) HLA MOLECULAR ABCDRDQ [facility] ID Date Data Source [id number] 04/06/2019 11:13:36 PM [facility] Value Range Interpretation Code Description Data Cheyenne rce(s) Supporting Document(s) History and Physical [facility] RPCWBh7bFxMIQiCs41/RHUyaUQJcq6JnHTsxHSa9CNwqCDRkZ3QjTTH1eF7zEUG3TUbHYkFgQyMdDrL5 lbm [file] ICAgICAgICAgICAgICAgICAgICAgICAgICAgICAgIC AgICAgICAgICAgICAgICAgICAgICAgICAgICAgICAgICAgDQogICAgICAgICAgICAgICAgICAgICAgIC AgICAgICAgICAgICAgICAgICAgICAgICAgICAgICAgICAgICAgICAgICAgICAgICAgICAgICAgICAgIC AgICAgICAgICAgICAgICAgDQogICAgICAgICAgICAg ICAgICAgICAgICAgICAgICAgICAgICAgICAgICAgICAgICAgICAgICAgICAgICAgICAgICAgICAgICAg ICAgICAgICAgICAgICAgICAgICAgICAgICAgDQogICAgICAgICAgICAgICAgICAgICAgICAgICAgICAg ICAgICAgICAgICAgICAgICAgICAgICAgICAgICAgIC AgICAgICAgICAgICAgICAgICAgICAgICAgICAgICAgICAgICAgDQogICAgICAgICAgICAgICAgICAgIC AgICAgICAgICAgICAgICAgICAgICAgICAgICAgICAgICAgICAgICAgICAgICAgICAgICAgICAgICAgIC AgICAgICAgICAgICAgICAgICAgDQogICAgICAgICAg ICAgICAgICAgICAgICAgICAgICAgICAgICAgICAgICAgICAgICAgICAgICAgICAgICAgICAgICAgICAg ICAgICAgICAgICAgICAgICAgICAgICAgICAgICAgDQogICAgICAgICAgICAgICAgICAgICAgICAgICAg ICAgICAgICAgICAgICAgICAgICAgICAgICAgICAgIC AgICAgICAgICAgICAgICAgICAgICAgICAgICAgICAgICAgICAgICAgDQogICAgICAgICAgICAgICAgIC AgICAgICAgICAgICAgICAgICAgICAgICAgICAgICAgICAgICAgICAgICAgICAgICAgICAgICAgICAgIC AgICAgICAgICAgICAgICAgICAgICAgDQogICAgICAg ICAgICAgICAgICAgICAgICAgICAgICAgICAgICAgICAgICAgICAgICAgICAgICAgICAgICAgICAgICAg ICAgICAgICAgICAgICAgICAgICAgICAgICAgICAgICAgDQogICAgICAgICAgICAgICAgICAgICAgICAg ICAgICAgICAgICAgICAgICAgICAgICAgICAgICAgIC RzWMUqSTHwUEVrGPWgXIQjDBAjAPBuIETcQROoMRBgINUzSYLcZGPxOHYgSZk1J8upWOKvFUUjCJ7vMT d3Jz8+DZdRKdRyKNI1ldIioR1OUV0up4WbZUjrFBSpz4TxAXa4HL7DWPKhAHgvKN1HPByejx2YWSMeSY BwqSUUn5ojJgAuNKV7DCVjZdpxHW2VTRAcF7srzxHm MQNfJOLESJtdARNZYAsbGBGGZPGmTUExOsBqMpOsZRCaGD3WMGQaN358mxXjCI0VZw1EGuMaNY1lxy0Q AaPtBGKcEowEYro8SDleBZ1KsBYkyIHuTDVeMJIXVzTdU8biy1VtQjVpHWZBNWywEB5Ys6KhjDJmAFv+ Dv3UYG2xt4MvAQusWEXrHX1mbk4MCIkQAgCqF4LpwB vfHJugHPMgjZFZrQRcfnOYWDcpgDQwfkLaOE0BNPD1EJZdDYmmQiQaHUSwQAnsLPGKOXdJNuVfS8Frg5 KxQqX0MRNlUcPwODydYBTtQpF1XR76fGcwEB9IYKAkNYQhUB65CIZzXHQkCo5VLf4KApGaTS9hpp7HVs PlSZCjIgmIUqq4GVtyKY6LyNIwS0KotKKcz0yURjVr H0YOFPEiTNNeBc7CPZNnVwQiNAQfVWjsKX2jBOWxVXSJmRkeqiX9KK8VWY2azhOrZK2MXvPlGf3zOz7N TnZpG2XsZ8GhNYIvRMLANDwtFI5BCRiuEL4kGM1Zu9SMuEVpeE4lnn4ZWDZyOETrYhlhgd2LUcndH0N5 jFzeQVGkRlFxSFHBDAudFO0JCXJcJOK6TZXxWwThZV WWAwNtM23xGP8EE8Mlx10aJmN7DQMqHxFjTXzjVW35qAqibgWlpNRbsMfjNL5JCg6+DQplbmRvYmoNCn agBRVMNnKdFrKVQwSmYVCnKTGcZSUfPzA7FaYdEh8FOXMrOWYyJUSlHcPiZSAbGHTlVNeuOKUwXZK2YO FfKXEgZGSgOW6MZrVcORXoLbD4RERaPKGtDKRnrz9P AAMmMRThCVL0KyDxFFMaNNBuWVaiPVCiJFO2UTinTHKrWYLqQR7MDuBhVDXlACXcHWCwRUXmBDEfsv9G QRSlHFKeYduhBbKmMVAjYSUsVMnrSEMaHQJ4NDK4SLGuLVEkKT2NAuWrSAXnZQV7GYLrUVIpMTLdlv6N MLFrQCAqGML4UETeUSScMPTbWNxgMAVcVIB2IfJmMX DlZROiOQ6LXjWsOCHcRRU4XTbfDLMgAUWmld6CSEUoOMVfGrP6SmMhGYGvUKXdPBmuSEMwYFG3PIwbQN YfUBBsSB3SBuFeVLGsDTk0XNIkAZHnYYSjjz7ZJKKoBNSzYZM8IMHqSTRoOFKnOZxkJCLfWRZ9BKSsXN FqXDBhHB7AOnQcKHEkIHz3IXKkXREcZIGknf3YNOIx WBNnXQu1UXSvGVZtMWBrQUopRAKmJPTbKGnmOIYaFERuYC6LVyQnIGQlYuKrROAsKKPkVKMkjm5DXTRj RJUgGIXaRTEpFJFdBBQmOUndGDNuEWMyFXJnPICzKTYeNA9XPuRhMECrWmT0YWliYBMlQRZinv7MUEOz SWNgBjDqHDIpUHCdCTEuJZacMUAhJHKvYUP1DVBbJQ JqJQ6PVgPjWKZoBoE4CoMoWZAoKQNbit1TQEPrGMVuAddjNDVtAPTiUOVdYLzyLLCgZMG2QqKsQQXbRQ JaCG1NKoTrTGHwLhR4KZDlZRZuQBDqcw9HOEMkYKWwUESlVMWvVJOdBHDeKGyeHQZfPLR5HTVhGGGrVP PpCF4CIfGrNMViLoarPfDjRBDkQKMvcj0QNUJcCEIp DcH8AgUiPKWdWCDpLOweVDVnRPN2VzH1ZZCjJGYnXE7STlNpIIjqDDKZWoq1IUcnO6z7DOBhUi7CN1Ps x0DyLjGdKGPTIOqaWO4srzBdUZLoTi1EA5xADlbzL8U9RPNeRaiuOtQsVtB1OEFfNZNlECFmJhD0DyK6 MQ4bNND2ZuO7JtL3GWGiHZLxDXleMAF0LBU7XZMhTN clOBYfOuCkKR4SKt7XIlV0FXE5oDTuMi3MXfh4MMIIGxCtYA4DQBh= ID Date Data Source [id number] 04/06/2019 09:08:25 PM [facility] Value Range Interpretation Code Description Data Cheyenne rce(s) Supporting Document(s) Glucose [Mass/volume] in Capillary blood by Glucometer 296 mg/dL 70- 140 H [facility] ID Date Data Source [id number] 04/06/2019 04:40:27 PM [facility] Value Range Interpretation Code Description Data Cheyenne rce(s) Supporting Document(s) Glucose [Mass/volume] in Capillary blood by Glucometer 221 mg/dL 70- 140 H [facility] ID Date Data Source [id number] 04/07/2019 09:10:08 AM [facility] Value Range Interpretation Code Description Data Cheyenne rce(s) Supporting Document(s) Flow cytometry study [facility] ID Date Data Source [id number] 04/06/2019 11:50:40 AM EST [facility] Name Value Range Interpretation Code Description Data Cheyenne rce(s) Supporting Document(s) Glucose [Mass/volume] in Capillary blood by Glucometer 171 mg/dL 70- 140 H [facility] ID Date Data Source [id number] 04/06/2019 10:44:06 AM EST [facility] Name Value Range Interpretation Code Description Data [place]yenne rce(s) Supporting Document(s) [facility] QZSLIn4pKsXNEkEye6CqLvNqEPLcVK4msjg9G2V9yXTlS5FaiXQec9wbS7CeR1VhVUQsNDZUTI1MnZXk jb2 [file] 7Xhl+7+7Xh1+5+pje4x28ekp9f94Ok+/n80G9BJ5/mh4/m5+fZ/PDh/Pw8nR8+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+f5/PDB/Tz84R++I h+fp7RDx/Sz89T+uFj+vnxswmQ/24TSAqe28hSTr8stJaDHb3OzHhhTysS4YoKSJWyb6sbHJsYY4MSUe +KRChJRH+8UzEsS75FsduWTmPNU/lRJkJpIj/aRChO 5EedCOWJ/XeLpQBSE0OjuUjik0TEAdThE2R8YubxZ2DR/WdKsZTCV72qBUxmp4pLpjA+9IpQsMiPYhFK FvnRLELRIj+cNQtl3Pb9TEYB/CgXoXSRH+0iFC/ho06T7mG+7WdXqUfSgxQOFGhXQRLOIe6mFllbjN+7 5ePOM13RmzrDtwBALkoJJ5W1Yf98Lqun0WrZJJDA/G xztqnXQ2WvyJDzz9xAkcwq681Crv8bI8G6zH32D5C93iOggZYPsyDBDZRRv8KLmlf7BGkOsIM/OkcodO TU9EmunhzkFbABoU+7X7H62eY7wRNXogEVQHEJd+FSwn83RB0T5JM/ukcofORH+Qilj/pcZ0O4pY/1I5 Q/8qN/kYKFjqYEWHAOweEJddO5NTBAWWV/OkgohORH LOjteTkdNvYWay26KRCC0fTWeAnBy/SQUg/zjc7M2jQ48HRSVrY/ekiph/HMKtg1eX9nNdSe5d32xYZY +qOHlHpIf/SQUg/jth1X0aV96PHXObV/ekiph/DDKti1rB8pAfAi7m49yGPK+js/3qBdkuzh9tEOihjM 9jTvdqkj5gO/1wQsaeS6voGF1zkK8wNYsq/ZmjZd86 OHlHpIf/SQUg/gbs8W0vI90WOXFaU/ekiph/UCWkx1xS7qUoIj8n65kWBB+qOHlHpIf/SQUg/bba8E3l A04RKAVrX/ekiph/XMHey5cN3dEbHc6d92eVVA+qOHlHpIf/SQUg/eqy5G6jF84KNJMbF/ekiph/RHDy f0yQ8qIuMo6j04jCSK+qOHlHpIf/SQUg/awh5N5uP2 0UNKPaQ/ekiph/DOUva4tY9eHwOp5k93sKKQ+qOHlHpIf/SQUg/yhi3vN2rHpU/fYQdRCBPX5XBWJDxw x/wfHlGFDQAyQbnLCw1EpzChoY4Ms8C+KP1R+mP0x+iP0R+jP0Z/jP4Y/TH6Y/TH6I/RH6M/Rn+M/hj9 Mfoz6M+gP4P+DPoz6M+gP4P+DPoz6M+gP4P+DPoz6M +gP4P+HWmv3Bhso5Bfvz2Mk5i+OP1x+uP0x+mP05/Ws5z+OP1x+uP0J+hP0J+gP0F/gv4E/Qn6E/Qn6E /Qn6A/QX+C/sT4CosH0PhQp5m/Vy4K0PxYc3z/Qx4T1IiJq1e/Nh0X1IkTh3a/Hs7D7ReSf5H/Fv1Z9G fRn0V/Ff0Q9YhJt1O/Ra9O0WpUs3S/Lq8A2JnZr80/ Ax1S7ZtHk37/Xq1X3XcUk58/Ga6L2RrYi98/Bz6N5Pzfdm+EuwjtrCXRE1GKh1qDul8RppK8Zf4V+rRn 48Ztnf04qo9z0mh2/6T5J80/af5J80+af9L8k+afNP+k+MrXlf2gcpia7kJujn0lxa5DAwTsPWxbXyUj hpAmIqSpCGkyQpqOkCYkpCkJaVJCmpaQJiakqQlpck [file] o96wc9M5941OT5X+9/++7jd+8//p1rqu51tBy4+O33 n95/8+7l03uTL8+/++2bDz/ryM1j7/002PAwHMTHYpHq4s/z/SlnL2g37/L7G241+Pb9m7/y2/sFfP/2 4/u//+rTyxfff/V6l4u7A1964vsFGv37++V//St/I9WVTy//+Le1770wwSUKso+/poMq8vu/+yNmh934 9/3qv50h93/45rgJ09986fCX0s4+/+4Dt849/dfOIJ ucpxn2b/Py7su//ys/u/nA/bN//PogN20P+fo3bz6+e/vyj+8/fXX/ims1z05qurh0880//Fz3jLhXdO sP77/+1qNArphgN49+/84uShr37v4W66455PQQq7iLcOmvlDc25seP969+fB+bnSj2lj///Kd/+eNffv zhn1/+23+8/Jq3rl3cEp/qtCngwoz25zmgm2491/7d h5d/+hvxf/rblz//6UV/VthRyRPzjj9199/8/c3X/+miHkNZmCb3S3/81b/u4FtooLI5fg/+FnjzVwb/ 0Q936g7KrC+uB1x/d/3dBBqCPGfX+p5X8ePyeIeq1rP8LGqoN0/vl5fr5/5K8UqHBz/8yw9/+Uu46/OX l998/Pa3MVK++190p398/ZO+tp/83fHzF/cflmd/6n D+eZS/a6qwy52s22WXikKY1gf+k/vntz/86d//7uUvv//1T39y48s77Sgiy9P/2SkkvyLgNLJl5Y4Ct/ n48sc//fsPf/nfv//Rb1G84fZ/tvtzqcbPd7/Bf/j43cs//6/Xk//jn//08/3HcnY/23/u4sH+4dOv/u HTH4C/uv3UsGb+q/0Yg12b10w/jkDp5764uk0xlc/A eiKEuoJL3zjPQ3wek/vv46qwTy7/f374t/367foN0btbuX397Rry8/+f/mb0l//4yz/97c9+va/Er3/4 8ff/+fLztE1Sl/n7//WH3//bH3//p/+8h8cTH//85x8/w5hmEe9XE/ZZf/jzHz5//EfqFefeSUC6XT0x D//jT3/8w+thPr+JvMq68E7ISAW/+2///jp6/vnzX3 /4/s3sK2421MUcHb0rh86/9+3Ht+/+6vvG4Md+fPv1/FM37sEbcbyd4H//k/xXUY3eZcG/8/v//sOLvP j8O509OVfG9+bC5Z92EHse/cu71/9zR7coub73oX91bgKVla/15joP5bP+ksF70xesf/3+m9ff3l/P/f BPv1ll8/2XuoZMkfryrzBqmCKaCZ2WGQ1sv8DiRbO2 XUKvg5PjQKgbCZz7pBWcYCeruvNzp9NvibvyS9Mka5GlIyCyKSFkJzIrCck5SQUdCpG7gBLlOhJbLCSi W6UbJADcRcH2RvQrYYELEX1HELGybuEoNeBwQCY+GjClZK5jnpydUYGtw8XgLBzrHKehCIPoT1B0vIfx CANnX3SmfP46FVFnQ7NimyH3EEC3WWIoAiKlGAExtS AxOSAwIFI+AaOpRQ2ebdyyUTXki6XdMItcYLD8aQ4tKInKIKUYKTrNSUehNwX4f98hjkRJHFQhXXVyKF 8YlnNbrKgkifGfmLBuNCM6SrUsTLMdSIauVHV8XAYCYCPxOLCuHMAcGNVwJ7FavSglZVqEVGIFDOgGRN otTmZhi1E1PDSzzxZBILSZCNULUJRWBHI6NCZrUxSc WM7PsYDlRAB5LEjAAADFMCkXFByoEgSil9Q3LJYpB8KdTAQbwdTaBSHIQQiwDxjfUR4ouIxztbymB9Vu vXHkJCJNTIOuITGtKDDfWTUdQ4Irt1X3D7PgLBfAQFDLUDgQPQhyWmW5p70sqwOBFONvKHWwXS7+ZW5k t0IbXg6VGSCoJL6vans5AF6EfOIoWO7AKVzcatMaV6 ezniJzEsAoKLDWAP0bQ6RrhW42OQQ+EuEnYQ7dzdt5szHoFaQkMHIcMJUiUHWjFLwyZGRoPJSmPLPfSL Y5TRL6UXYxAdXoOSTtXgJ4KgogFOFeLJLdvnQIMCOnFGX6TOYfUoAeVXCcUWVlBSerGCMaSJF1JhQ3GL RyMLKzCT0vHfHxUPTxFCNsZDOtJqP6UtVcYuQRZQFj QUKhABNvXtOuXQOeUDClLLknYTAdPXZhYBa6EZHpEWKbLH4pYjUkELTuGKWlFLXcRGZlUOUnvyJYYWTi UDQzKEE5ZAHoNXQxWXPaKAxlTAXqWJAzEGQ3LLYoIKPxUE6eQhVkRCCvHOC0QkSyYRMxBMJrujUMYESx WQFsNTC6HAEoALYpAPBqTKveXKSqOCYwZoQ3ZGBhPT JoFE8lXmPlKTEqPKJ7OVKpKTHfYOScfdRQHVUmSVRnTZr0VxUrMDInWCTxQRzcNYJbCDXeKDiaAEPzOG WkDS8pKiWdAUZuCMYaGRAzBCHgGLHfrmTRIPScUIIhFFD0CaTwEOVrCKBjXRrfYVRzSYEqJGZ4TJJsRK TlAL9sUoPvFBFgGeA6YhzpSNNqGHWbxdVDMPPtDMMf DUCtIHTgHRZaDCNkZCtpECRmWISaZfL3ZXEsKZWcCE6zSrGhWMThSWQ0WVLpRXKuMNDuwgAHATToLOPn KQRvNBG5NWUlDQUjWUm4nnItoLEkZgj0Gd6DcIunYQF4Zw9PzvMqUKDrUQSSSz7Lh470OETnAPFWBmn+ HjvacEOmpQinKBDBFdLvFiRUCJNSP1Q= ID Date Data Source [id number] 04/06/2019 10:40:50 AM [facility] Value Range Interpretation Code Description Data Cheyenne rce(s) Supporting Document(s) Fibrin D-dimer FEU [Mass/volume] in Platelet poor plas ma by Immunoassay 1.21 ug/mL{FEU} <0.50 H [facility] ID Date Data Source [id number] 04/06/2019 10:40:50 AM [facility] Value Range Interpretation Code Description Data Cheyenne rce(s) Supporting Document(s) Prothrombin time (PT) 15.7 s 12.5-14.9 H [facility] INR in Platelet poor plasma by Coagulation assay 1.20 [facility] Routine intensity oral anticoagulation I NR is typically 2.0-3.0. Target INR must be clinically individualized. ID Date Data Source [id number] 04/06/2019 10:42:25 AM [facility] Value Range Interpretation Code Description Data Cheyenne rce(s) Supporting Document(s) Fibrinogen [Mass/volume] in Platelet poor plasma by Coagulat ion assay 662 mg/dl 190-450 H [facility] ID Date Data Source [id number] 04/06/2019 10:44:30 AM [facility] Value Range Interpretation Code Description Data Cheyenne rce(s) Supporting Document(s) Phosphate [Mass/volume] in Serum or Plasma 3.8 mg/dL 2.5-4.5 [facility] ID Date Data Source [id number] 04/06/2019 10:44:30 AM [facility] Value Range Interpretation Code Description Data Cheyenne rce(s) Supporting Document(s) Bicarbonate [Moles/volume] in Serum 22 mmol/L 22-29 [facility] Chloride [Moles/volume] in Serum or Plasma 98 mmol/L 98-107 [facility] Creatinine [Mass/volume] in Serum or Plasma 2.24 mg/dL 0.50-0.90 H [facility] Glucose [Mass/volume] in Serum or Plasma 184 mg/dL 70-140 H [facility] Potassium [Moles/volume] in Serum or Plasma 5.2 mmol/L 3.4-5.1 [facility] Sodium [Moles/volume] in Serum or Plasma 134 mmol/L 136-145 L [facility] Urea nitrogen [Mass/volume] in Serum or Plasma 56 mg/dL 8-23 H [facility] Anion gap 3 in Serum or Plasma 14 mmol/L 8-15 [facility] Osmolality of Serum or Plasma by calculation 298 mosm/kg 275-300 [facility] Creatinine/Urea nitrogen [Mass Ratio] in Serum or Plasma 25 [facility] Calcium [Mass/volume] in Serum or Plasma 10.4 mg/dL 8.8-10.2 H [facility] Glomerular filtration rate/1.73 sq M pre dicted among non-blacks [Volume Rate/Area] in Serum or Plasma by Creatinine-based formula (MDRD) 22 mL/min/1.73m2 >60 L [facility] Glomerular filtration rate/1.73 sq M pre dicted among blacks [Volume Rate/Area] in Serum or Plasma by Creatinine-based formula (MDRD) 26 mL/min/1.73m2 >60 L [facility] ID Date Data Source [id number] 04/06/2019 10:44:30 AM EST [facility] Name Value Range Interpretation Code Description Data [place] rce(s) Supporting Document(s) Urate [Mass/volume] in Serum or Plasma 12.6 mg/dl 2.4-5.7 H [facility] ID Date Data Source [id number] 04/06/2019 11:13:26 AM [facility] Value Range Interpretation Code Description Data [place] rce(s) Supporting Document(s) Reticulocytes/100 erythrocytes in Blood by Automated count 5.0 % 0.6-2.8 H [facility] Reticulocytes [#/volume] in Blood 172.0 10*3/uL 26-122 H [facility] Immature reticulocytes/Reticulocytes.total in Blood 0.35 % 0.26-0 .52 [facility] ID Date Data Source [id number] 04/06/2019 12:55:32 PM [facility] Value Range Interpretation Code Description Data [place] rce(s) Supporting Document(s) Cobalamin (Vitamin B12) [Mass/volume] in Serum or Plasma 1491 pg/ml 2 11-946 H [facility] ID Date Data Source [id number] 04/06/2019 12:55:32 PM [facility] Value Range Interpretation Code Description Data [place] rce(s) Supporting Document(s) Thyrotropin [Units/volume] in Serum or Plasma 7.080 u[IU]/mL 0.270-4. 200 H [facility] ID Date Data Source [id number] 04/06/2019 12:55:32 PM [facility] Value Range Interpretation Code Description Data [place] rce(s) Supporting Document(s) Ferritin [Mass/volume] in Serum or Plasma 690 ng/ml 13-150 H [facility] ID Date Data Source [id number] 04/06/2019 12:55:32 PM [facility] Value Range Interpretation Code Description Data [place] rce(s) Supporting Document(s) Natriuretic peptide.B prohormone N-Terminal [Mass/volu me] in Serum or Plasma 1067 pg/mL <125 H [facility] ID Date Data Source [id number] 04/06/2019 01:00:28 PM [facility] Value Range Interpretation Code Description Data [place] rce(s) Supporting Document(s) Lactate dehydrogenase [Enzymatic activit y/volume] in Serum or Plasma by Lactate to pyruvate reaction 676 U/L 122-214 H [facility] ID Date Data Source [id number] 04/06/2019 04:03:43 PM [facility] Name Value Range Interpretation Code Description Data [place] rce(s) Supporting Document(s) Haptoglobin [Mass/volume] in Serum or Plasma 190 mg/dl 30-200 [facility] ID Date Data Source [id number] 04/06/2019 08:42:00 AM [facility] Name Value Range Interpretation Code Description Data [place] rce(s) Supporting Document(s) [facility] [id number] [file] [id number] ID Date Data Source [id number] 04/06/2019 07:48:44 AM [facility] Name Value Range Interpretation Code Description Data [place] rce(s) Supporting Document(s) Glucose [Mass/volume] in Capillary blood by Glucometer 161 mg/dL 70- 140 H [facility] ID Date Data Source [id number] 04/06/2019 12:54:23 AM [facility] Name Value Range Interpretation Code Description Data [place] rce(s) Supporting Document(s) Albumin [Mass/volume] in Serum or Plasma by Bromocresol green (BCG) dye binding method 4.0 g/dL [facility].5[facility] Bil[facility].total [Mass/volume] in Serum or Plasma 0.8 mg/dL <1.2 [facility] Calcium [Mass/volume] in Serum or Plasma 9.9 mg/dL 8.8-10.2 [facility] Chloride [Moles/volume] in Serum or Plasma 101 mmol/L 98-107 [facility] Creatinine [Mass/volume] in Serum or Plasma 2.23 mg/dL 0.50-0.90 H [facility] Glucose [Mass/volume] in Serum or Plasma 170 mg/dL 70-140 H [facility] Alkaline phosphatase [Enzymatic activity/volume] in Serum or Plasma 67 U/L 35-104 [facility] Potassium [Moles/volume] in Serum or Plasma 5.6 mmol/L 3.4-5.1 [facility] Protein [Mass/volume] in Serum or Plasma 7.4 g/dL 6.4-8.3 [facility] Sodium [Moles/volume] in Serum or Plasma 135 mmol/L 136-145 L [facility] Aspartate aminotransferase [Enzymatic activity/volume] in Serum or Plasma 19 U/L <32 [facility] Urea nitrogen [Mass/volume] in Serum or Plasma 58 mg/dL 8-23 H [facility] Osmolality of Serum or Plasma by calculation 300 mosm/kg 275-300 [facility] Creatinine/Urea nitrogen [Mass Ratio] in Serum or Plasma 26 [facility] Bicarbonate [Moles/volume] in Serum 20 mmol/L 22-29 L [facility] Alanine aminotransferase [Enzymatic activity/volume] in Seru m or Plasma 16 U/L <33 [facility] Anion gap 3 in Serum or Plasma 14 mmol/L 8-15 [facility] Albumin/Globulin [Mass Ratio] in Serum or Plasma 1.2 [facility] Glomerular filtration rate/1.73 sq M pre dicted among non-blacks [Volume Rate/Area] in Serum or Plasma by Creatinine-based formula (MDRD) 22 mL/min/1.73m2 >60 L [facility] Glomerular filtration rate/1.73 sq M pre dicted among blacks [Volume Rate/Area] in Serum or Plasma by Creatinine-based formula (MDRD) 26 mL/min/1.73m2 >60 L [facility] ID Date Data Source [id number] 04/06/2019 03:11:40 AM [facility] Name Value Range Interpretation Code Description Data Cheyenne rce(s) Supporting Document(s) Leukocytes [#/volume] in Blood by Automated count 23.3 10*3/uL 4-10 H [facility] Confirmed Erythrocytes [#/volume] in Blood by Automated count 3.40 10*6/uL 4.1- 5.3 L [facility] Hemoglobin [Mass/volume] in Blood 9.5 g/dL 11.5-15.5 L [facility] Hematocrit [Volume Fraction] of Blood by Automated count 30.4 % 3 6-45 L [facility] Erythrocyte mean corpuscular volume [Entitic volume] by Auto mated count 89.6 fL 80-96 [facility] Erythrocyte mean corpuscular hemoglobin [Entitic mass] by Automated count 28.0 pg 27-33 [facility] Erythrocyte mean corpuscular hemoglobin concentration [Mass/volume] by Automated count 31.3 g/dL 32.0-[facility] distribution width [Ratio] by Automated count 22.8 % 11.5-14.5 H [facility] Platelets [#/volume] in Blood by Automated count 50 10*3/uL 150-400 L [facility] ConfirmedMANUAL PLAT RESULT Differential cell count method - Blood [facility] Neutrophils/100 leukocytes in Blood by Automated count 47 % [facility] Lymphocytes/100 leukocytes in Blood by Automated count 15 % [facility] Monocytes/100 leukocytes in Blood by Automated count 25 % [facility] Basophils/100 leukocytes in Blood by Automated count 1 % [facility] Neutrophils [#/volume] in Blood by Automated count 10.94 10*3/uL 1.8- 7.0 H [facility] Lymphocytes [#/volume] in Blood by Automated count 3.35 10*3/uL 1.2-4 .0 [facility] Monocytes [#/volume] in Blood by Automated count 5.59 10*3/uL 0-0.8 H [facility] Confirmed by 1521 Basophils [#/volume] in Blood by Automated count 0.23 10*3/uL 0-0.2 [facility] Nucleated erythrocytes/100 leukocytes [Ratio] in Blood by Automated count 22 /100{WBCs} 0-0 H [facility] Confirmed by 1521 Band form neutrophils/100 leukocytes in Blood by Manual count 2 % [facility] Myelocytes/100 leukocytes in Blood by Manual count 7 % [facility] Confirmed by 1521 Metamyelocytes/100 leukocytes in Blood by Manual count 3 % [facility] Band form neutrophils [#/volume] in Blood by Manual count 0.46 10*3 /uL 0-0.6 [facility] Myelocytes [#/volume] in Blood by Manual count 1.57 10*3/uL 0-0 H [facility] Metamyelocytes [#/volume] in Blood by Manual count 0.66 10*3/uL 0-0 [facility] Anisocytosis [Presence] in Blood by Light microscopy [facility] Hypochromia [Presence] in Blood by Light microscopy [facility] Poikilocytosis [Presence] in Blood by Light microscopy [facility] Stomatocytes [Presence] in Blood by [facility] ID Date Data Source [id number] 04/21/2019 06:35:00 PM [facility] Hematopathology Report See Addendum Zeeshan w* Amended *Name: PATRICIA COTTON VMRN: [id number] Number: [id number] Date: 04/06/2019 00:00Received Date: 04/06/2019 14:04Physician(s): ZAFAR DIAZ BHASKARASpecimediane(s) ReceivedA: Bone Marrow Aspirate, [facility]IC; Received 1 clot and 6 aspirate smearsB: Bone Marrow Biopsy, [facility]; Received 1 biopsy and 6 touch prepsC: Blood; Received 4 PB smearsD: Bone Marrow, Flow Cytometry; Recieved 1 green top BM (1 EDTA toMolecular)Clinical Tdodcej43-fvfx-qqt female with leukocytosis, anemia, thrombocytopenia, fatigue,shortness of [...] ADDENDUM:Next-generation sequencing performed on this specimen by [facility] (MyeloidMolecular Profile; see JEFFREY molecular report MD20- [...] additional discussion, see the full report from [facility] within theResults section of the patient's electronic medical record. Addendum Electronically Signed By: Radha Kaur M.D., Ph.D. 04/21/2019 18:29 Addendum 04/11/2019 ADDENDUM:FISH testing of this specimen (see [id number]) is negative for a t(9;22)BCR-ABL1 gene rearrangement, [...] cassettefollowing decalcification.DP/pmwMicroscopic DescriptionPERIPHERAL BLOOD: CBC performed at [facility] on 04/06/2019 (#[id number]) White blood cell *23.3 K/uL Red blood cell *3.4 M/uL Hemoglobin *9.5 g/dL Hematocrit *30.4 % Mean cell volume 89.6 fL Mean cell hemoglobin 28 pg Mean cell Hgb conc *31.3 g/dL Red cell dist width *22.8 % Platelet count *50 K/uLDifferential count (200 cells): 1.5 % Blasts 6 % Lijiwmxjnx59.5 % Whbgdcpllwlpqy76.5 % Neutrophils 1 % Mnnqdzler97 % Lqnykatleid77.5 % Monocytes--------100.0 %PERIPHERAL BLOOD SMEAR: Leukocytosis with [...] Erythroid precursors 4.2 % Blasts 2.8 % Isbcvfncdgohn98.4 % Neutrophils and precursors 2.4 % Eosinophils [...] and severe thromb ocytopenia (50 K/uL).ANCILLARY STUDIES:Karyotype (QN73-033):44,XX,-5,-7,add(17)(p11.2),dmin[19]/46,XX[1].FISH ([id number]): 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 ProceduresFlow C ytometry Date Ordered:04/06/2019 Status: Signed Out04/07/2019 InterpretationAcute Panel for Yury Iqbal FD10-125 04/06/2019The following markers were assayed: CD45 (gate), CD1a, CD2, CD3, CD4, CD5,CD7, CD8, CD10, CD11b, CD13, CD14, CD15, CD19, CD20, CD25,CD33, CD34,CD38, CD41, CD56, CD57, CD64, CD71, CD117, CD123, Solway, Lambda, andHLA-DR.Events: 75421Vqwswhvrm: 89%Flow Cytometry Differential (CD45/SSC)Lymphocyte Micanopy: 5%CD45 dim Micanopy: 2%Monocyte Micanopy: 8%Granulocyte Micanopy: 30%Nucleated/Erythroid Micanopy: 46%The lymphocyte gate showsB- Cells (CD19): 1%Solway/Lambda Ratio: 2.1T-Cells (CD3): 92%CD4/CD8 Ratio: 1.0NK Cells: 0%Results (expressed as % of LYMPHOCYTE gate):B-Cell Markers: Solway = 0.5, Lambda = 0.4, CD19 = 1, CD20 = 7, CD19/10 =0, CD19/CD5 = 0, CD38/CD20 = 1Light chain as % of B-Cells: CD19/Solway = 63, CD19/Lambda = 30T-Cell Markers: CD2 = 98, CD3 = 92, CD3/CD4 = 47, CD5 = 85, CD7 = 83,CD3/CD8 = 48, CD3/57 = 40NK Cell Markers: CD56 = 9, CD57 = 42Other Markers: CD10 = 0, CD38 = 21Results (e xpressed as % of BLAST gate):B-Cell Markers: Solway = 0.0, Lambda = 1.9, CD19 = [...] CD123= 62, HLA-DR = 58Acute-Cytoplasmic Panel for [facility] HP20- 472 [id number] following markers were assayed: CD45 (gate), TDT, cCD22, cCD79a, MPO,and cCD3.# events: 10049Ofakroyhm: 91%Flow Cytometry Differential (CD45 dim/SSC):Lymphocyte Micanopy: 5%Blast Micanopy: 4%Monocyte Micanopy: 6%Granulocyte gate: 34%NRBC Micanopy: 12%Results (expressed as % of blast gate):T-cell [...] elliott- T cell antigens and a normal CD4/RG1jokql, an increased proportion of cytotoxic T cells, [...] were developed and theirperformance characteristics determined by [facility] Pathology department.They have not been cleared or approved by the US Food and DrugAdministration. The FDA has determined that such clearance or approval isnot necessary. Name Value Range Interpretation Code Description Data Cheyenne rce(s) Supporting Document(s) ID Date Data Source [id number] 04/19/2019 02:25:00 PM [facility] Molecular Diagnostics ReportName: PATRICIA COTTON VMRN: [id number] Number: [id number] Date: 04/06/2019 00:00Received Date: 04/08/2019 15:52Physician(s): ZAFAR DIAZ KRISHNA BCopy To:RADHA KAUR KSpecimen(s) ReceivedA: Bone Marrow - [employer] for NGS MyeloidTYPE OF STUDY: Myeloid Molecular ProfileCOMMENTS: A bone marrow sample for this patient was sent to [facility], [address] [place], [place] [id number] for analysis. Please see link forscanned external [...] alberto MD, PhD AttendingPathologist 04/19/2019 14:25:55Reported at [address] [place] [address]. Name Value Range Interpretation Code Description Data Cheyenne rce(s) Supporting Document(s) ID Date Data Source [id number] 04/08/2019 12:03:00 PM [facility] Cytogenetics Report See Addendum BelowNa me: PATRICIA COTTON VMRN: [id number] Number: [id number] Date: 04/06/2019 00:00Received Date: 04/06/2019 14:13Physician(s): ZAFAR DIAZ BHASKARASpecfrancheska(s) ReceivedA: Bone Marrow - Karyotype analysis and FISHClinical Toxcpah44-nskg-lqm female with leukocytosis, anemia, and thrombocytopenia,fatigue, shortness [...] and was reported on 04/08/19. [id number].DATA:SPECIMEN TYPE: BONE MARROW CULTURE TYPE: 24 HOUR UNSTIMULATEDNUCLEI EVALUATED for ADDITIONAL FISH: 200ISCN Nomenclature: nuc dayday (ABL1,BCR)x2[190/200] COMMENTS:Interphase FISH was performed utilizing an LSI BCR/ABL1 ES probe from[employer] It is a combination, direct labeled [...] been validated and authorized for clinical use [facility] ([facility]). However, the procedure isconsidered investigational, and should not be used as the sole criteriafor diagnosis. Procedure Electronically Signed Yokasta Curran MD, PhD 04/11/2019 15:13 DiagnosisCYTOGENETIC RESULTS: 44,XX,-5,-7,add(17)(p11.2),dmin[19] 46,XX[1]FISH RESULTS: nuc dayday (TP53x1,Z41V8z4)[71/100],(TP53x1,K15T0a3)[100]INTERPRETATION: Monosomy 5, monosomy 7, hemizygosity for TP53 [...] 17 centromere. A recent chromosome analysis study (EJ70-534: peripheral blood) showedloss of chromosomes 5,7 and 17, a marker chromosome and a double minute.The current chromosome analysis showed better morphology and the markerchromosome has now been reclassified as "add(17)(p11.2)".A combination of monosomy 7, monosomy 5 and deletion 17p (hemizygosity forTP53) is associated with a poor prognosis in MDS and AML. Please correlatewith concurrent Hematopathology report ([id number]).Electronically Signed By Ramses Carl, Ph.D., [facility], Director ofCytogenetics 04/08/2019 12:03:46Gross DescriptionDATA:SPECIMEN TYPE: BONE MARROW CULTURE TYPE: 24 HOUR UNSTIMULATED METAPHASES COUNTED AND ANALYZED: 20 METAPHASES KARYOTYPED: 3BAND RESOLUTION: 400-450NUCLEI EVALUATED FOR FISH: 100ISCN NOMENCLATURE: 44,XX,-5,-7,add(17)(p11.2),dmin[19]/46,XX[1]nuc dayday (TP53x1,V44Z7k3)[71/100],(TP53x1,K17T3q1)[100] COMMENTS: Fluorescence in situ hybridization (FISH) studies were performed toevaluate specifically for abnormalities of chromosome 17. The probe wasobtained from [employer], [employer]. Hybrid ization was carried out as per [...] Name Value Range Interpretation Code Description Data [facility](s) Supporting Document(s) ID Date Data Source [id number] 04/06/2019 12:53:45 AM [facility] Cmnt XXX-Imp : Microorganism XXX Cult [...] Name Value Range Interpretation Code Description Data [facility](s) Supporting Document(s) ID Date Data Source [id number] 04/05/2019 09:20:26 AM [facility] Name Value Range Interpretation Code Description Data [facility](s) Supporting Document(s) Flow cytometry study [facility] ID Date Data Source [id number] 04/05/2019 01:15:00 PM [facility] Hematopathology Report See Addendum Zeeshan wName: PATRICIA COTTON VMRN: [id number] Number: [id number] Date: 04/03/2019 00:00Received Date: 04/04/2019 13:58Physician(s): PEDRO PABLO REECE SHAHANDEH FCopy [facility]) ReceivedA: Blood, Flow Cytometry; Received 2 green top PB (2 EDTA PB to Molecular)Clinical Rawtdkn01-uvir-rvy female with leukocytosis, anemia, and thrombocytopenia DiagnosisPeripheral [...] 04/08/2019 ADDENDUM:Cytogenetic analysis of this specimen (see [id number]) yielded the followingresult:Karyotype: 44,XX,-5,-7,-17,+mar,dmin[19]/46,XX[1].This karyotype is similar to that derived from the subsequent bone marrowbiopsy collected 04/06/2019 (see FL35-702 and VA91-587). That karyotypeshowed better morphology, and the marker chromosome was reclassified as"add(17)(p11.2)". FISH studies of the latter karyotype also detecteddeletion 17p in 71% of nuclei, consistent with hemizygosity for the PP23wkgi. Addendum Electronically Signed By: Radha Kaur M.D., Ph.D. 04/09/2019 17:09 Microscopic DescriptionPERIPHERAL BLOOD: CBC performed at [facility] on 04/03/2019 White blood cell *23.3 K/uL Red blood cell *2.71 M/uL Hemoglobin *7.4 g/dL Hematocrit *24.8 % Mean cell volume 91.5 fL Mean cell hemoglobin 27.3 pg Mean cell Hgb conc *29.8 g/dL Red cell dist width *22.1 % Platelet count *49 K/uLDifferential count (100 cells): 1 % Blasts 7 % Tertweqiml70 % Hfuetzvaiilroe60 % Neutrophils 1 % Eosinophils 8 % Mskgnovyncw43 % Monocytes--------100.0 %PERIPHERAL BLOOD SMEAR: Leukocytosis with absolute neutrophilia, absolutemonocytosis, frequent left-shifted granulocytes, and a rare blast. Manygranulocytes are dysplastic with abnormally segmented nuclei,binucleation, and/or hypogranular cytoplasm. Moderate to severe anemiawith marked anisopoikilocytosis including elliptocytes, teardrop cells,macrocytes, microcytes, and frequent nucleated red blood cells (12 per 100leukocytes). Severe thrombocytopenia. ProceduresFlow Cytometry Date Ordered:04/04/2019 Status: Signed Out04/05/2019 InterpretationAcute Panel for Yury Iqbal [id number] 04/03/2019The following markers were assayed: CD45 (gate), CD1a, CD2, CD3, CD4, CD5,CD7, CD8, CD10, CD11b, CD13, CD14, CD15, CD19, CD20, CD25,CD33, CD34,CD38, CD41, CD56, CD57, CD64, CD71, CD117, CD123, Solway, Lambda, andHLA-DRMarielEvents: 56401Dvogafvnl: 92%Flow cytometry differential (CD45/SSC)Lymphocyte Micanopy: 4%CD45 dim Micanopy: 2%Monocyte Micanopy: 12%Granulocyte Micanopy: 53%Nucleated/Erythroid Micanopy: 18%The lymphocyte gate showsB-Cells (CD19): 4%Solway/Lambda Ratio: 1.9T-Cells (CD3): 79%CD4/CD8 Ratio: 0.8NK Cells: 2%Results (expressed as % of LYMPHOCYTE gate):B-Cell Markers: Solway = 3.7, Lambda = 1.3, CD19 = 4, CD20 = 5, CD19/10 =0, CD19/CD5 = 1, CD38/CD20 = 2Light chain as % of B-Cells: CD19/Solway = 56, CD19/Lambda = 30T-Cell Markers: CD2 = 87, CD3 = 79, CD3/CD4 = 36, CD5 = 75, CD7 = 75,CD3/CD8 = 44, CD3/57 = 34NK Cell Markers: CD56 = 10, CD57 = 38Other Markers: CD10 = 2, CD38 = 30Results (expressed as % of BLAST gate):B-Cell Markers: Solway = 0.2, Lambda = 0.3, CD19 = [...] were developed and theirperformance characteristics determined by [facility] Pathology department .They have not been cleared or approved by the US Food and DrugAdministration. The FDA has determined that such clearance or approval isnot necessary. Name Value Range Interpretation Code Description Data Cheyenne rce(s) Supporting Document(s) ID Date Data Source [id number] 04/07/2019 10:40:00 AM [facility] Cytogenetics ReportName: PATRICIA COTTON VMRN : [id number] Number: [id number] Date: 04/03/2019 00:00Received Date: 04/04/2019 14:08Physician(s): PEDRO PABLO REECE SHAHANDEH FSpecimen(s) ReceivedA: Peripheral Blood (-)Clinical Mqwlpkj53-vlvg-hoz female with leukocytosis, anemia, and thrombocytopeniaTEST REQUESTED/PERFORMED: [...] deletionof TP53. Please correlate with concurrent Hematopathology report([id number]).Electronically Signed By Ramses Carl, Ph.D., FAC, Director ofCytogenetics 04/07/2019 10:40:14Gross DescriptionDATA: SPECIMEN TYPE: PERIPHERAL BLOOD CULTURE TYPE: 24 HOUR UNSTIMULATED METAPHASES COUNTED AND ANALYZED: 20 METAPHASES KARYOTYPED: 4BAND RESOLUTION: 400ISCN Nomenclature: 44,XX,-5,-7,-17,+mar,dmin[19]/46,XX[1] Name Value Range Interpretation Code Description Data Cheyenne rce(s) Supporting Document(s) ID Date Data Source [id number] 03/31/2019 06:26:17 PM EST [facility] Name Value Range Interpretation Code Description Data Cheyenne rce(s) Supporting Document(s) &PDF [facility] CVNVYu5iOlJYCmRq80/JKBadDMUfh7FqOMqyPHz6FUlaKJXqL1TrrWfsNOyVPRIdXsLRUIEUJQGFJT4s oRX [file] iqIoiqIoiqIoiqIoiqIoiqIoiqIoiqIoiqIoiqIoiq IoiqJ+R/2CxLr2su4TLP1et9PgTYSoVDepbzIyRdcDCjR4DEBhn8QeGDpnYX8NXJ3cu5UdQNvuCGGrd7 RoTRl0EF1WJKGvHJAmA6ZctDDxB4PJZr7FRFa4E4arCFoaPp8IvNTyGXVrBYcqTL1Lb526UQb3SS4DPC MgQRAbXDPLRmDoECAhFrUwWDEvXLVHKm4SNyFbV7vW AjcsQ8DmSVneA5tgWnQsPPWpUAEQRLxaJNIvO2hnOlBpDXDfKUEWGl1WUgFlG7A3mFdCrVH1TVD6KH2S YmEGKqJuJBb4B0N4tEYcF4N1dRiTvRN0YS5CKJ9KPIWdCJ9+PhFxD0NWNRbUZCF3KA2RfYKwQN9IiNGY K2EjyLBtEf9nBAIrvPnapQb+ZvMkG5YLZHMUYBB5YW 5AkUHlWZ6OeRRJF3PkvCPwFm7zARpeCzVmOV3xNO3+FZ2EVVYWKsORGuGlQSqsRHekPNApPLh9V6I9AI ScL3ZHI4J3X8z8m2wegr8+BA3IHDZuQ2GAZUBMVmYtZXzaQCpvOTLjJXb3E9F4CVAvC4UDJ8loS1x6XG 4+PiANCiAgID4+DQo+Wk9RQZ4xy1VgMHutVzZkZH4d zc4XMTjhVOYqP3PdKBGjKZlmE5QuiWxrLT6MZKfgCKvpCJ6LXDHuWLO4OC0+YVfhhBPtKC9DBix/eHBh W3acaFKbRYygpa9d42k/SbTxAL2hXaFYZY6sW2QqdRy9mwIFwm1UP9lbRkgkKk0+RTfwBVz8NigoyG3s iUTfuYg3nWZ2lf7lXw1gLYzxNJcggM7cxlI1gQ6dCN DsRbG9akT6tCC7AD4gGm8CQLMeDTszQFC8CbUYJXhhlS6kFwDoUj7wmBG1lPsrF4g4ms36Cf9ibcpnUV p4YL7oLx8cTj2uRZEdx3evqJB9XJ4xMqo+UGdcLCRiVU4vEML1QsLHCr5DHOD7U8p5rU2zkGQ7DG8RTh AgICAgICAgICAgICAgICAgICAgICAgICAgICAgICAg ICAgICAgICAgICAgICAgICAgICAgICAgICAgICAgICAgICAgICAgICAgICAgICAgICAgICAgICAgICAg ICAgICAgICANCiAgICAgICAgICAgICAgICAgICAgICAgICAgICAgICAgICAgICAgICAgICAgICAgICAg ICAgICAgICAgICAgICAgICAgICAgICAgICAgICAgIC AgICAgICAgICAgICAgICAgICANCiAgICAgICAgICAgICAgICAgICAgICAgICAgICAgICAgICAgICAgIC AgICAgICAgICAgICAgICAgICAgICAgICAgICAgICAgICAgICAgICAgICAgICAgICAgICAgICAgICAgIC ANCiAgICAgICAgICAgICAgICAgICAgICAgICAgICAg ICAgICAgICAgICAgICAgICAgICAgICAgICAgICAgICAgICAgICAgICAgICAgICAgICAgICAgICAgICAg ICAgICAgICAgICANCiAgICAgICAgICAgICAgICAgICAgICAgICAgICAgICAgICAgICAgICAgICAgICAg ICAgICAgICAgICAgICAgICAgICAgICAgICAgICAgIC AgICAgICAgICAgICAgICAgICAgICANCiAgICAgICAgICAgICAgICAgICAgICAgICAgICAgICAgICAgIC AgICAgICAgICAgICAgICAgICAgICAgICAgICAgICAgICAgICAgICAgICAgICAgICAgICAgICAgICAgIC AgICANCiAgICAgICAgICAgICAgICAgICAgICAgICAg ICAgICAgICAgICAgICAgICAgICAgICAgICAgICAgICAgICAgICAgICAgICAgICAgICAgICAgICAgICAg ICAgICAgICAgICAgICANCiAgICAgICAgICAgICAgICAgICAgICAgICAgICAgICAgICAgICAgICAgICAg ICAgICAgICAgICAgICAgICAgICAgICAgICAgICAgIC AgICAgICAgICAgICAgICAgICAgICAgICANCiAgICAgICAgICAgICAgICAgICAgICAgICAgICAgICAgIC AgICAgICAgICAgICAgICAgICAgICAgICAgICAgICAgICAgICAgICAgICAgICAgICAgICAgICAgICAgIC AgICAgICANCiAgICAgICAgICAgICAgICAgICAgICAg ICAgICAgICAgICAgICAgICAgICAgICAgICAgICAgICAgICAgICAgICAgICAgICAgICAgICAgICAgICAg ICAgICAgICAgICAgICAgICANCjw/yUHfL1tdqVUlgpW1T3ovOk4KWq2OIF6kn5RzPJChLQayqnOaZgpX WcExUHLzDyxVXzw9RKbbNP4BfXWfX4QaI4EjSPwyAT 1OZOYoVTKybCWyXCSrBWLxMfX4BNQkTFsbXU1LtPGqOMwlXOWdXLKaHdRfPAUaFZ8DQVXbT652izSwSx 1NGz4XHcXvEV1jzk2QNRhzASQxBwxGZgd9YJzjPW1WnVVdW6SwjRYfv9uKZhDmX4TSQFC8AGYtBz1ZBR HoDkNxIQFmIStqNF4bTZNmJQVJxQmdjgG7AV6XKF9i kyWlVA8ZXdZgXl3sVh0JWqArM1OlT9XsHWGiQBQSWPwwDP3FMPDzBRH4BZWhTjVeFJSBGrBgG05ePV2D M2Dem87sRcI5NKJvWvLcRZizOU49bEkpxhLmnUUuvVmqDP7KQj7+DQplbmRvYmoNCnhyZWYNCjAgMTkN ZhHhRNNgRHOaEJZyDxX4OlCxIk1HLKIeSDByYXCrYk KmEWXiQUOuXHcxXMSkJIR0VuLbPIOoIPLiPP0XOwNuNSYmEQN2APHdLHHiDXDziu6OCOMeQENhFBT4VN ThYDZfIDAtXPudYSKtINSgNjwhTFTbQIIhQB1BMqKvSZVzQPX0SJylICRiYLUfcx4JPSXeRTYfQgIzPB KvLQJvLMRtTIgdKEJuMLZkVcSzVKFgVUCsBV3TRdIt ESRqZUTzXKPvGQQnWBJrci2YGLRhGTHjJSH0NfNjQWWeDVTiEIolDOFsUQW9Zgr6YKIkMONlVG6GJkXy MAHmBFV8RgvgSOBfGPGvfo5PZKOsBLMlGDzeKQHbUBCiXFRcSYxiVGFqGVN4TBE6GLSlVWHwKS0QRiFy IQXpBJG1OICzENDaRKDycc3KVQHsKLFfIOxxOZFjRS GfMYPfCJazIMJzJIE3UKBeDROwCYHxJO8BLwWpDNAsGEY3PXtfBNWqKWUsxq9YrNFylCegxv1UNUkRUb 9XaJweQDW8BQjoLl5juUBvVLPzHQZVDn0JmzFxMZYqXDXXXTtmXYRwDLV7HfY5RAVyWun8NXxeEDxaVt E0IxWvFPFiXIN2BILsYmA8IFa5DZQzF0WgWMOdVGR9 OGViNTZjNjBhMmUxZTYwNWM+KN6tOZo+Ok1Cv3YwxrT7peQzXHkuZqt1TZ0QNUBTX3MEAd== Procedure Social History Code Duration Value Status Description Data Source(s ) Alcohol intake 03/14/2020 12:00:00 AM EST Ex-drinker (finding) comp leted Ex- drinker (finding) [facility] Tobacco use and exposure 03/14/2020 12:00:00 AM EST Never used co mpleted Never used [facility] Smoking 03/14/2020 12:00:00 AM EST Former smoker completed Former smoker [facility] Smoking 12/23/2019 12:00:00 AM EST Former Smoker completed Former Smoker eCW1 ([facility]ly [facility]) Smoking 12/23/2019 12:00:00 AM EST Former Smoker completed Former Smoker eCW1 (Formerly [facility]) Smoking 12/23/2019 12:00:00 AM EST Former Smoker completed Former Smoker eCW1 (Formerly [facility]) Smoking 12/23/2019 12:00:00 AM EST Former Smoker completed Former Smoker eCW1 (Formerly [facility]) Smoking 12/23/2019 12:00:00 AM EST Former Smoker completed Former Smoker eCW1 (Formerly [facility]) Smoking 12/23/2019 12:00:00 AM EST Former Smoker completed Former Smoker eCW1 (Formerly [facility]) Alcohol intake 12/21/2019 12:00:00 AM EST No completed [facility] Cigarette pack-years 12/21/2019 12:00:00 AM EST UNK completed [facility] Cigarettes smoked current (pack per day) - Reported 12/21/19 12:00:00 AM EST UNK completed [facility] Smoking 12/21/2019 12:00:00 AM EST Current some day smoker com pleted Current some day smoker [facility] Smoking 06/24/2019 12:00:00 AM EDT Former Smoker completed Former Smoker eCW1 (Formerly [facility]) Smoking 04/05/2019 12:00:00 AM EST Unknown if ever smoked comp leted Unknown if ever smoked [facility] Vital Signs ID Date Data Source UNK Name Value Range Interpretation Code Description Data Source(s) Diastolic blood pressure 72 mm[Hg] 72 mm[Hg] eCW1 ([facility]ly [facility]) Systolic blood pressure 138 mm[Hg] 138 mm[Hg] e CW1 (Formerly [facility]) Body temperature 98.3 [degF] 98.3 [degF] eCW1 ( Formerly [facility]) Respiratory rate 18 /min 18 /min eCW1 ([facility]) Heart rate 83 /min 83 /min eCW1 ([facility]) Body mass index (BMI) [Ratio] 26.61 kg/m2 26.61 kg/m2 W1 (Formerly [facility]) Body height 68 [in_i] 68 [in_i] eCW1 ([facility]) Body weight 175 [lb_av] 175 [lb_av] eCW1 ([facility]) Diastolic blood pressure 58 mm[Hg] 58 mm[Hg] [facility] Systolic blood pressure 120 mm[Hg] 120 mm[Hg] [facility] Oxygen saturation in Arterial blood by Pulse oximetry 98 % 98 % [facility] Body mass index (BMI) [Ratio] 27.25 kg/m2 27.25 kg/m2 [facility] Body weight 78.926 kg 78.926 kg [facility] Body height 170.2 cm 170.2 cm [facility] Heart rate 66 /min 66 /min [facility] Diastolic blood pressure 60 mm[Hg] 60 mm[Hg] eCW1 (Formerly [facility]) Systolic blood pressure 134 mm[Hg] 134 mm[Hg] e CW1 (Formerly [facility]) Body temperature 98.7 [degF] 98.7 [degF] eCW1 ( Formerly [facility]) Respiratory rate 20 /min 20 /min eCW1 ([facility]) Heart rate 88 /min 88 /min eCW1 ([facility]) Body mass index (BMI) [Ratio] 27.61 kg/m2 27.61 kg/m2 eCW1 (Formerly [facility]) Body height 68 [in_us] 68 [in_us] eCW1 ([facility]) Body weight Measured 181.6 [lb_av] 181.6 [lb_av ] eCW1 (Formerly [facility]) Diastolic blood pressure 80 mm[Hg] 80 mm[Hg] eCW1 (Formerly [facility]) Systolic blood pressure 130 mm[Hg] 130 mm[Hg] e CW1 (Formerly [facility]) Body temperature 97.4 [degF] 97.4 [degF] eCW1 ( Formerly [facility]) Respiratory rate 20 /min 20 /min eCW1 ([facility]) Heart rate 88 /min 88 /min eCW1 ([facility]) Body mass index (BMI) [Ratio] 27.21 kg/m2 27.21 kg/m2 eCW1 (Formerly [facility]) Body height 68 [in_us] 68 [in_us] eCW1 ([facility]) Body weight Measured 179 [lb_av] 179 [lb_av] eC W1 (Formerly [facility]) Diastolic blood pressure 72 mm[Hg] 72 mm[Hg] eCW1 (Formerly [facility]) Systolic blood pressure 122 mm[Hg] 122 mm[Hg] e CW1 (Formerly [facility]) Body temperature 97.9 [degF] 97.9 [degF] eCW1 ( Formerly [facility]) Respiratory rate 20 /min 20 /min eCW1 ([facility]) Heart rate 93 /min 93 /min eCW1 ([facility]) Body mass index (BMI) [Ratio] 28.49 kg/m2 28.49 kg/m2 eCW1 (Formerly [facility]) Body height 68 [in_us] 68 [in_us] eCW1 ([facility]) Body weight Measured 187.4 [lb_av] 187.4 [lb_av ] eCW1 (Formerly [facility]) Diastolic blood pressure 58 mm[Hg] 58 mm[Hg] eCW1 ([facility]ly [facility]) Systolic blood pressure 90 mm[Hg] 90 mm[Hg] e CW1 ([facility]ly [facility]) Body temperature 97.7 [degF] 97.7 [degF] eCW1 ( Formerly [facility]) Respiratory rate 20 /min 20 /min eCW1 ([facility]) Heart rate 90 /min 90 /min eCW1 ([facility]) Body mass index (BMI) [Ratio] 29.19 kg/m2 29.19 kg/m2 eCW1 (Formerly [facility]) Body height 68 [in_us] 68 [in_us] eCW1 ([facility]) Body weight Measured 192 [lb_av] 192 [lb_av] eC W1 (Formerly [facility]) ID Date Data Source [id number] 03/31/2020 08:37:32 AM [facility] Name Value Range Interpretation Code Description Data Source(s) WEIGHT RECORDED 193.56 lb 193.56 lb [facility] WEIGHT RECORDED 185.4 lb 185.4 lb [facility] Body height Measured 64.17 in 64.17 in [facility] WEIGHT RECORDED 183.8 lb 183.8 lb [facility] WEIGHT RECORDED 170.2 lb 170.2 lb [facility] Body height Measured 64.17 in 64.17 in [facility] TRANSFER FROM [facility] ID Date Data Source [id number] 04/21/2019 06:36:07 PM [facility] Name Value Range Interpretation Code Description Data Source(s) WEIGHT RECORDED 185.4 lb 185.4 lb [facility] Patient Treatment Plan of Care Planned Activity Planned Date Details Description Data Source (s) carvedilol 12.5 MG Oral Tablet 03/18/2020 12:00:[address] [facility] Levofloxacin 500 MG Oral Tablet 03/18/2020 12:00:[address] [facility] Basaglar KwikPen 100 UNIT/ML Subcutaneou s Solution Pen-injector (insulin glargine) 03/16/2020 12:00:00 AM [facility] maalox/lidocaine/diphenhydrAMINE 1:1:1 SWISH & SWAL or al suspension 03/16/2020 12:00:00 AM [facility] ospital pantoprazole 40 MG Delayed Release Oral Tablet 03/16/2020 12:00:[address] [facility] Lidocaine 5 % External Patch (LIDODERM) 03/16/2020 12:00:[address] [facility] Fluconazole 200 MG Oral Tablet 03/16/2020 12:00:[address] [facility] maalox/lidocaine/diphenhydrAMINE 1:1:1 SWISH & SWAL or al suspension 03/15/2020 12:00:00 AM [facility] ospital Acyclovir 200 MG Oral Capsule 03/15/2020 12:00:[address] [facility] Tiotropium [place] Monohydrate 2.5 MCG/A CT Inhalation Aerosol Solution (SPIRIVA RESPIMAT) 03/15/2020 12:00:00 AM [facility] sennosides, PRISON 8.6 MG Oral Tablet 03/15/2020 12:00:[address] [facility] eltrombopag 25 MG Oral Tablet 03/15/2020 12:00:[address] [facility] 3 ML heparin sodium, porcine 100 UNT/ML Prefilled Syri nge 03/11/2020 09:15:16 AM [facility] ospital heparin sodium, porcine 10 UNT/ML Injectable Solution 03/11/2020 09:15:16 AM [facility] ospital sodium chloride (preservative free) 0.9 % flush 10 mL 03/11/2020 09:15:16 AM [facility] ospital NaCl infusion 0.9 % 03/11/2020 09:15:[address] [facility] heparin sodium, porcine 10 UNT/ML Injectable Solution 03/10/2020 11:13:25 AM [facility] ospital NaCl infusion 0.9 % 03/10/2020 11:13:[address] [facility] dextrose 50 % IV solution 25 mL 03/06/2020 10:54:[address] [facility] Glucagon 1 MG Injection 03/06/2020 10:54:[address] [facility] Glucose 0.417 MG/MG Oral Gel 03/06/2020 10:54:[address] [facility] INQOVI 35-100 MG TABS 12/14/2019 12:00:00 AM EDT [facility] Pravastatin Sodium 40 MG Oral Tablet 12/06/2019 12:00:00 AM EDT [facility] 7 ACTUAT umeclidinium 0.0625 MG/ACTUAT Dry Powder Inha ler [Incruse] 11/28/2019 12:00:00 AM EDT [facility] 24 HR Isosorbide Mononitrate 60 MG Extended Release Or al Tablet 06/10/2019 12:00:00 AM EDT eCW1 ([facility]) 24 HR Isosorbide Mononitrate 60 MG Extended Release Or al Tablet 06/10/2019 12:00:00 AM EDT eCW1 ([facility]) 24 HR Isosorbide Mononitrate 60 MG Extended Release Or al Tablet 06/10/2019 12:00:00 AM EDT eCW1 ([facility]) 24 HR Isosorbide Mononitrate 60 MG Extended Release Or al Tablet 06/10/2019 12:00:00 AM EDT eCW1 ([facility]) 24 HR Isosorbide Mononitrate 60 MG Extended Release Or al Tablet 06/10/2019 12:00:00 AM EDT eCW1 ([facility]) 24 HR Isosorbide Mononitrate 60 MG Extended Release Or al Tablet 06/10/2019 12:00:00 AM EDT eCW1 ([facility]) 24 HR Isosorbide Mononitrate 60 MG Extended Release Or al Tablet 06/10/2019 12:00:00 AM EDT eCW1 ([facility]) Wheelchair - 05/27/2019 12:00:00 AM EDT e CW1 (Formerly [facility]) Shower Chair without wheels 05/27/2019 12:00:00 AM EDT eCW1 (Formerly [facility]) Wheelchair - 05/27/2019 12:00:00 AM EDT e CW1 (Formerly [facility]) Shower Chair without wheels 05/27/2019 12:00:00 AM EDT eCW1 (Formerly [facility]) carbamide peroxide 65 MG/ML Otic Solution [Debrox] 05/16/2019 12 :00:00 AM EDT eCW1 (Formerly [facility]) Sodium Chloride 0.111 MEQ/ML Nasal [place] 05/12/2019 12:00:00 AM EDT eCW1 (Formerly [facility]) Amoxicillin 875 MG / Clavulanate 125 MG Oral Tablet 04/22/19 12:00:00 AM EST eCW1 ([facility]) Tiotropium [place] Monohydrate 2.5 MCG/A CT Inhalation Aerosol Solution (SPIRIVA RESPIMAT) 04/10/2019 12:00:00 AM [facility] 24 HR Isosorbide Mononitrate 60 MG Extended Release Or al Tablet 04/10/2019 12:00:00 AM [facility] ospital calcium polycarbophil 625 MG Oral Tablet 04/10/2019 12:00:[address] [facility] Furosemide 40 MG Oral Tablet 04/10/2019 12:00:[address] [facility] Amlodipine 5 MG Oral Tablet 04/10/2019 12:00:[address] [facility] Allopurinol 100 MG Oral Tablet 04/10/2019 12:00:[address] [facility] insulin lispro 100 UNIT/ML SC injection MEDIUM DOSE EA TING INSULIN patients 04/09/2019 12:00:00 AM [facility], PRISON 8.6 MG Oral Tablet 04/09/2019 12:00:[address] [facility] Pravastatin Sodium 40 MG Oral Tablet 04/09/2019 12:00:[address] [facility] Insulin Glargine 100 UNT/ML Injectable Solution 04/09/2019 12:00:[address] [facility] carvedilol 12.5 MG Oral Tablet 04/09/2019 12:00:[address] [facility] albuterol (PROVENTIL HFA;VENTOLIN HFA) inhaler 2 puff 04/05/2019 11:50:41 PM [facility] ospital dextrose 50 % IV solution 25 mL 04/05/2019 11:46:[address] [facility] Glucagon 1 MG Injection 04/05/2019 11:46:[address] [facility] Glucose 0.4 MG/MG Oral Gel 04/05/2019 11:46:[address] [facility] Spironolactone 50 MG Oral Tablet 04/16/2016 12:00:00 AM [facility] Acetaminophen 500 MG Oral Tablet [facility] Inqovi 35-100 MG Oral Tablet (Decitabine-Cedazuridine) [facility] Acyclovir 400 MG Oral Tablet [facility] Basaglar KwikPen 100 UNIT/ML Subcutaneou s Solution Pen-injector (insulin glargine) [facility] Furosemide 40 MG Oral Tablet [facility] clopidogrel 75 MG Oral Tablet [facility] albuterol (PROVENTIL HFA;VENTOLIN HFA) 108 (90 BASE) MCG/ACT inhale r [facility] Hydralazine Hydrochloride 100 MG Oral Tablet [facility] Aspirin 81 MG Delayed Release Oral Tablet [facility]
[2020-04-10] MEDS ORDERED: DEXTROSE 50% 50 ML SYRINGE IV PRN (04:15)
[2020-04-10] MEDS ORDERED: GLUCAGON INJ 1MG VIAL SC PRN (04:15)
[2020-04-10] MEDS ORDERED: GLUCOSE 4GM CHEW TABLET PO PRN (04:15)
[2020-04-10 05:54] LABS: HEMATOCRIT 24.8 % (36.0-47.0); HEMOGLOBIN 7.9 g/dl (12.0-15.5); MEAN CORPUSCULAR HEMOGLOBIN 27.4 pg (27.0-33.0); MEAN CORPUSCULAR HGB CONC 31.9 g/dl (32.0-36.5); MEAN CORPUSCULAR VOLUME 86.1 fl (80.0-96.0); RED BLOOD COUNT 2.88 10^6/uL (4.00-5.40); WHITE BLOOD COUNT 2.7 10^3/uL (4.0-10.0)
[2020-04-10 06:00] LABS: PLATELET COUNT, AUTOMATED 18 10^3/uL (150-450)
[2020-04-10 06:20] LABS: ALBUMIN 1.8 GM/DL (3.2-5.2); CALCIUM LEVEL 7.5 MG/DL (8.8-10.2); CREATININE FOR GFR 1.67 MG/DL (0.55-1.30); GLOMERULAR FILTRATION RATE 32.8 (>45); MAGNESIUM LEVEL 2.3 MG/DL (1.8-2.4); POTASSIUM SERUM 3.4 MEQ/L (3.5-5.1); TOTAL PROTEIN 4.8 GM/DL (6.4-8.2)
[2020-04-10 06:32] VITALS: BP 128/60
[2020-04-10] MEDS: VITAMIN D 1,000 INTERNATIONAL UNITS TABLET PO SCH (08:46)
[2020-04-10] MEDS: PANTOPRAZOLE 40MG TAB (PROTONIX) PO SCH (08:46)
[2020-04-10] MEDS: PRAVASTATIN 20 MG TAB PO SCH (08:46)
[2020-04-10] MEDS: ISOSORBIDE MON. (IMDUR) 60 MG XR TAB PO SCH (08:46)
[2020-04-10] MEDS: SPIRONOLACTONE 50 MG TAB PO SCH (08:46)
[2020-04-10] MEDS: FLUCONAZOLE 100 MG TAB PO SCH (08:46)
[2020-04-10] MEDS: HumaLOG INSULIN (NovoLOG) PER UNIT SC SCH ×4 (08:46→20:31)
[2020-04-10] MEDS: DOCUSATE SODIUM 100MG CAPSULE PO SCH ×2 (08:47→20:30)
[2020-04-10] MEDS: amLODIPine 5 MG TAB PO SCH (08:47)
[2020-04-10] MEDS: CARVedilol 12.5 MG TAB PO SCH ×2 (08:47→20:34)
[2020-04-10 10:22] LABS: ANISOCYTOSIS 1+; ATYPICAL LYMPH 7 % (0-5); BASOPHILS 2 % (0-1); BLAST CELLS 18 % (0-0); LYMPHOCYTES 64 % (16-44); MONOCYTES 5 % (0-5); NEUTROPHILS 4 % (28-66); PLATELET ESTIMATE MARKED DECREASE (NORMAL)
[2020-04-10] MEDS ORDERED: CORE6.25 PO (11:16)
--- NOTE | 2020-04-10 11:24 | DS.PDOC ---
Discharge Summary General Date of Admission Apr 09, 2020 at 21:59 Date of Discharge 04/10/20 Discharge Summary CHIEF COMPLAINT: Pre-syncope Final diagnosis Presyncopal episode HISTORY OF PRESENT ILLNESS: Patient is year-old female, past medical history most significant for CML (currently receiving chemotherapy), who was brought to the emergency department via EMS 04/09/20 after sustaining a fall at home walking to the commode. Patient reports that she "misstep", resulting in a slow fall toward the ground. Patient denies any loss of consciousness or vision changes and reports that she did not hit her head. She denies any resulting pain or injury. Due to patient's chemotherapy, patient does carry a history of chronic pancytopenia for which she receives platelet and RBC infusion. Patient reports that she had her last transfusion yesterday of platelets. In the emergency department, patient was found to have a pulse 100, respiratory rate of 20, blood pressure of 169/74 and oxygen saturation 98% room air. CBC was significant for a pancytopenia with platelet count of 24, which after fluid res uscitation have decreased to 18 and her hemoglobin has decreased to 7.9. Which is most likely due to hemodilution as she got 1 L bolus and was on 75 mL per hour., BUN/Cr of 35/1.61, baseline creatinine of 1.6. PT/INR 17.7/1.42. CT imaging of the patient's head was negative. Chest x-ray does show mild bilateral effusions. CT head will also done which did not show any acute intracranial abnormality. Her telemetry was reviewed, which showed that she was mildly bradycardic in upper 40s throughout the night and in the morning. Her heart rate was in sinus rhythm and in 70s. She does take Coreg 12.5 twice a day, which could have been the reason of her bradycardia and probable presyncopal. She was not complaining of any dizziness on standing up and no orthostatics were done at the time of presentation. She is Status post AICD. Echo performed in shows a LVEF of 60% in 07/05 . . He follows the Dr. Jimenez and will be seeing him pretty soon as per the patient. At my encounter, the patient was given only stable, but she already had gotten around 2 L of IV fluid. I had a detailed discussion with her regarding her medical condition and told her about the possibility of decreasing her Coreg to 6.125 along with that she kept on emphasizing that she just missed her step and does not think that she was dizzy. In any case, the patient is clinically optimized. Her drop in hemoglobin, platelet count is most likely secondary to hemodilution as she got up around 2 L of IV fluid. She is willing to go home and understands the risk of being in the hospital and getting nosocomial infection, especially with her CML. She is medically optimized for discharge and will be sent home with a follow-up with heme onc well as PCP. PHYSICAL EXAMINATION: VITAL SIGNS: Please see below GENERAL APPEARANCE: Patient interviewed and examined in the emergency department. Patient was found to be lying in bed comfortably in no acute distress. Patient does appear quite pale. Patient was able to participate in the examination and was an accurate historian. HEENT: Normocephalic, atraumatic, EOMI, mucous membranes dry CARDIOVASCULAR: Regular rate and rhythm without any S3 or S4, no appreciable murmur LUNGS: Basilar crackles are appreciated, fair aeration throughout ABDOMEN: Obese, soft, nontender, nondistended, no peritoneal signs EXTREMITIES: 1-2+ pitting edema in the lower extremities bilaterally, chronic, evidence of chronic venous stasis also apparent, no tenderness to palpation NEUROLOGICAL: Awake, alert, oriented. No dysarthria or dysphagia. Patient is able to move her upper and lower extremities equally bilaterally. PSYCHIATRIC: Mood and affect are appropriate given patient's current medical condition CODE STATUS: DNR/DNI Mediictations. As per discharge reconciliation medication list. . Her Coreg has been decreased to 6.25 twice a day from 12.5 twice a day Activity as tolerated Diet. 2 g sodium diet Follow-up appointments. PCP in 1 week.. He wants in 1 week Condition on discharge. Patient is medically optimized for discharge Discharge disposition: Home Total time spent on this discharge including coordination of care, review of chart documentation and actual patient contact is around 35 minutes Vital Signs/I&Os Vital Signs Date Time Temp Pulse Resp B/P (MAP) Pulse Ox O2 Delivery O2 Flow Rate FiO2 04/10/20 08:47 88 138/61 04/10/20 06:32 99.8 17 98 Room Air Laboratory Data Labs 24H Laboratory Tests 2 04/09/20 23:42: Immature Granulocyte % (Auto) , Neutrophils (%) (Auto) , Neutrophils # (Auto) , Nucleated Red Blood Cells % (auto) 4.0H, Neutrophils 4L, Lymphocytes (Manual) 64H, Monocytes (Manual) 5, Basophils (Manual) 2H, Blastocytes 18H, Atypical Lymphocytes 7H, Anisocytosis 1+, Platelet Estimate MARKED DECREASE, Prothrombin Time 17.7H, Prothromb Time International Ratio 1.42, Activated Partial Thromboplast Time 50.0H, Anion Gap 9, Glomerular Filtration Rate 34.2L, Lactic Acid Level 1.1, Calcium Level 8.3L, Magnesium Level 2.2, Total Creatine Kinase 44, Creatine Kinase MB < 1.0, Creatine Kinase MB Relative Index 2.27, Troponin I 0.10, Thyroid Stimulating Hormone (TSH) 4.070H, Free Thyroxine 1.15 04/10/20 01:13: Coronavirus (COVID-19)(PCR) NEGATIVE, Influenza Type A (RT-PCR) NEGATIVE, Influenza Type B (RT-PCR) NEGATIVE, Respiratory Syncytial Virus (PCR) NEGATIVE 04/10/20 05:32: Nucleated Red Blood Cells % (auto) 3.0H, Anion Gap 10, Glomerular Filtration Rate 32.8L, Calcium Level 7.5L, Magnesium Level 2.3, Total Bilirubin 1.0, Aspartate Amino Transf (AST/SGOT) 13, Alanine Aminotransferase (ALT/SGPT) 10L, Alkaline Phosphatase 113, Total Protein 4.8L, Albumin 1.8L, Albumin/Globulin Ratio 0.6L CBC/BMP Laboratory Tests 04/09/20 23:42 04/10/20 05:32 Discharge Medications Scheduled Acyclovir (Acyclovir) 200 Mg Capsule, 400 MG PO TID, (Reported) Amlodipine Besylate (Amlodipine Besylate) 5 Mg Tablet, 5 MG PO DAILY, (Reported) Carvedilol (Carvedilol) 12.5 Mg Tab, 12.5 MG PO BID, (Reported) Carvedilol (Coreg) 6.25 Mg Tablet, 6.25 MG PO BID Eltrombopag Olamine (Promacta) 25 Mg Tablet, 25 MG PO DAILY, (Reported) Fluconazole (Fluconazole) 200 Mg Tablet, 200 MG PO DAILY, (Reported) Insulin Glargine,Hum.rec.anlog (Basaglar Kwikpen U-100) 100 Unit/1 Ml Insuln.pen, 30 UNIT SC QHS, (Reported) Insulin Human Lispro (Humalog) 100 Unit/1 Ml Vial, 1 DOSE SC AC, (Reported) SLIDING SCALE Isosorbide Mononitrate (Isosorbide Mononitrate ER) 60 Mg Tab, 60 MG PO DAILY, (Reported) Pantoprazole Sodium (Pantoprazole Sodium) 40 Mg Tablet.dr, 40 MG PO DAILY, (Reported) Pravastatin Sodium (Pravastatin Sodium) 40 Mg Tablet, 40 MG PO DAILY, (Reported) Spironolactone (Spironolactone) 100 Mg Tablet, 100 MG PO DAILY, (Reported) Umeclidinium [place] (Incruse Ellipta) 62.5 Mcg Blst.w.dev, 1 PUFF INH DAILY, (Reported) Scheduled PRN Acetaminophen (Acetaminophen) 500 Mg Tablet, 1,000 MG PO Q6H PRN for PAIN, (Reported) Lidocaine (Lidocaine) 5% Adh..patch, 1 PATCH TOP DAILY PRN for PAIN, (Reported) USES ON BACK Allergies Coded Allergies: losartan (Verified Allergy, Severe, throat swelling, 06/28/18) DAKSHA PABLO MD Apr 10, 2020 11:23
[2020-04-10 14:00] VITALS: BP 124/56
--- NOTE | 2020-04-10 16:39 | ECGEPIP ---
[facility] - ED Test Date: 2020-04-10 Pat Name: PATRICIA PARKS Department: Room: [place] [address] Gender: Female Access Spec: ER : [id number] Requested By: JUWAN TOBIAS Order Number: [id number] Reading MD: Juwan Dobbins Measurements Intervals [place] Rate: 92 P: 48 ME: 132 QRS: 265 QRSD: 130 T: 29 QT: 458 QTc: 566 Interpretive Statements Normal sinus rhythm Prolonged QTc interval Possible Left atrial enlargement Right bundle branch block Nonspecific ST-T wave abnormalities Similar to tracing done 03-06-20 with longer QTc Electronically Signed on 04-10-2020 16:38:48 EST by Juwan Dobbins
[2020-04-10] MEDS ORDERED: **NOTE PATIENT COMMENT** MISC XX PRN (21:00)
[2020-04-10 22:00] VITALS: BP 132/63
[2020-04-11 05:59] LABS: HEMATOCRIT 24.3 % (36.0-47.0); HEMOGLOBIN 7.7 g/dl (12.0-15.5); MEAN CORPUSCULAR HEMOGLOBIN 27.6 pg (27.0-33.0); MEAN CORPUSCULAR HGB CONC 31.7 g/dl (32.0-36.5); MEAN CORPUSCULAR VOLUME 87.1 fl (80.0-96.0); RED BLOOD COUNT 2.79 10^6/uL (4.00-5.40); WHITE BLOOD COUNT 2.2 10^3/uL (4.0-10.0)
[2020-04-11 06:00] VITALS: BP 144/66
[2020-04-11 06:02] LABS: PLATELET COUNT, AUTOMATED 10 10^3/uL (150-450)
[2020-04-11 06:39] LABS: ALBUMIN 1.8 GM/DL (3.2-5.2); CALCIUM LEVEL 8.5 MG/DL (8.8-10.2); CREATININE FOR GFR 1.64 MG/DL (0.55-1.30); GLOMERULAR FILTRATION RATE 33.5 (>45); POTASSIUM SERUM 3.7 MEQ/L (3.5-5.1); TOTAL PROTEIN 5.9 GM/DL (6.4-8.2)
[2020-04-11] MEDS: HumaLOG INSULIN (NovoLOG) PER UNIT SC SCH ×4 (09:13→20:39)
[2020-04-11] MEDS: DOCUSATE SODIUM 100MG CAPSULE PO SCH ×2 (09:14→20:39)
[2020-04-11] MEDS: PRAVASTATIN 20 MG TAB PO SCH (09:14)
[2020-04-11] MEDS: FLUCONAZOLE 100 MG TAB PO SCH (09:14)
[2020-04-11] MEDS: PANTOPRAZOLE 40MG TAB (PROTONIX) PO SCH (09:15)
[2020-04-11] MEDS: SPIRONOLACTONE 50 MG TAB PO SCH (09:15)
[2020-04-11] MEDS: VITAMIN D 1,000 INTERNATIONAL UNITS TABLET PO SCH (09:15)
[2020-04-11] MEDS: CARVedilol 12.5 MG TAB PO SCH ×2 (09:17→20:40)
[2020-04-11] MEDS: amLODIPine 5 MG TAB PO SCH (09:17)
[2020-04-11] MEDS: ISOSORBIDE MON. (IMDUR) 60 MG XR TAB PO SCH (09:18)
[2020-04-11] MEDS ORDERED: FUROSEMIDE 40MG/4ML VIAL (J1940) IV ONE (14:00)
[2020-04-11 14:01] VITALS: BP 125/54
--- NOTE | 2020-04-11 14:56 | REP ---
INDICATION: fever and cough. COMPARISON: Portable chest 04/09/2020, 03/24/2020; CT 04/04/2019 TECHNIQUE: AP portable seated exam FINDINGS: Dual lead AICD pacer over the left upper chest with leads in the right atrium and right ventricle. There is a right jugular port catheter terminating in the SVC. There is some improvement in the infrahilar right lower lobe markings and perihilar opacity left mid lung zone is seen this may have been obscured on the previous study because of slight rotation. Interstitial changes are seen and patchy left mid lung zone a density surrounding the a more confluent 3.4 cm density. This could reflect consolidation with adjacent patchy infiltrate or mass with adjacent patchy infiltrate. Small left effusion suspected. The right CP angle sharply defined. Heart size unchanged. There is venous hypertension. Underlying fibrosis makes early interstitial edema difficult to exclude. IMPRESSION: 1. Dual lead AICD pacer and right jugular port catheter unchanged. 2. 3.4 cm density in the left mid lung zone perihilar region with adjacent patchy atelectasis or infiltrates and some infrahilar patchy density on the right which appears somewhat improved compared to previous study. Whether that is infiltrate or mass in the left mid lung zone is uncertain. It could certainly have been obscured on the previous study by rotation but is not visible on 03/24/2020. Therefore I suspect consolidation. 3. Heart size unchanged. Some vascular congestion noted underlying fibrosis makes early interstitial edema difficult to exclude. Small left effusion suspected. <Electronically signed by Golden Keller > 04/11/20 [id number]
--- NOTE | 2020-04-11 15:51 | REPVR ---
PROCEDURE INFORMATION: Exam: CT Head Without Contrast Exam date and time: 04/11/2020 3:39 PM Age: 65 years old Clinical indication: Injury or trauma; Fall; Blunt trauma (contusions or hematomas); Additional info: Rule out bleed. TECHNIQUE: Imaging protocol: Computed tomography of the head without contrast. Radiation optimization: All CT scans at this facility use at least one of these dose optimization techniques: automated exposure control; mA and/or kV adjustment per patient size (includes targeted exams where dose is matched to clinical indication); or iterative reconstruction. COMPARISON: CT Head without contrast 04/09/2020 10:51 PM FINDINGS: Brain: There is no acute intracranial hemorrhage, cerebral edema, or midline shift. Chronic microvascular ischemic changes are seen in the periventricular white matter. Mild cerebral and cerebellar volume loss is present. Cerebral ventricles: No hydrocephalus. Bones/joints: No acute fracture. Paranasal sinuses: There is opacification of the left sphenoid sinus. Mucosal thickening is noted in the right sphenoid sinus. Mastoid air cells: Poor pneumatization of the mastoids is likely due to remote/chronic inflammation. Partial opacification of the bilateral mastoid air cells is noted. Orbital cavity: The included orbital structures are unremarkable. Vasculature: Atherosclerotic calcifications are seen involving the cavernous carotid arteries. Soft tissues: Unremarkable. IMPRESSION: 1. No acute intracranial abnormality. 2. Chronic findings as discussed above. Electronically signed by: Beni Jaimes On 04/11/2020 15:52:09 PM
[2020-04-11] MEDS: PIPERACILLIN/TAZOBACTAM SOD 3.375 GM in D5W MINI-BAG PLUS 50 ML IV SCH ×2 (15:58→22:55)
[2020-04-11] MEDS ORDERED: ACETAMINOPHEN *IV* 1,000 MG in IV 1 EA IV ONE (16:00)
--- NOTE | 2020-04-11 16:17 | IPNPDOC ---
Subjective Date Seen The patient was seen on 04/11/20. Subjective Chief Complaint/HPI Patient was ok early this morning then became confused and spiked a fever of 104 in the afternoon. Spoke with Sister Yumiko at [phone] and updated her about the condition of the patient. Objective Physical Examination General Exam: Positive: Cooperative, No Acute Distress, Other (somnolent) Eye Exam: Positive: PERRLA, Conjunctiva & lids normal, EOMI; Negative: Sclera icteric ENT Exam: Positive: Atraumatic, Mucous membr. moist/pink, Pharynx Normal Neck Exam: Positive: Supple; Negative: JVD, thyromegaly Chest Exam: Positive: Normal air movement, Rhonchi, Wheezing Heart Exam: Positive: Rate Normal, Regular Rhythm, Normal S1, Normal S2 Abdomen Exam: Positive: Normal bowel sounds, Soft; Negative: Tenderness Extremity Exam: Positive: Edema, Swelling, Other (bilateral leg erythema and warmth) Assessment /Plan Assessment Patient is 65 year-old female, past medical history most significant for CMML (currently receiving chemotherapy), MDS, pancytopenia transfusion dependent, CAD s/p stents, h/o ischemic cardiomyopathy s/p AICD in 2018 with Improvement of EF to 65%, CKD stage 4 baseline creatinine about 2.0, who was brought to the emergency department via EMS 04/09/20 after sustaining 2 falls at home walking to the commode. Patient reports that she "misstep", resulting in a slow falls toward the ground. Patient denies any loss of consciousness or vision changes and reports that she did not hit her head. She denies any resulting pain or injury. Garett was medically cleared to be discharged on 04/10/20 however family 9husband and sister) felt that she was too weak to come home and they needed more help at home. So discharge was cancelled. Late morning of 04/11/20 she started becoming confused and somnolent so CT head was ordered. She spiked a fever of 104(rectally) in the afternoon. So Now she has Neutropenic fever. Spoke with Patient's Neutropenic fever will send blood cultures, UA, urine cultures, CXR Start Vanco and zosyn She has a chemo port and an AICD. Will give Neupogen until ANC 1500. ? bilateral leg cellulitis. Sepsis ? source could be bilateral cellulitis vs bacteremia in a neutropenic pateitn work up ordered as above. Metabolic encephalopathy most likely due to high grade fever and infection however with her platelet being at [address] head to rule out any bleeding. Bilateral leg red and warm ? bilateral cellulitis VS b/l stasis rubor On broad spectrum antibiotics. 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 CMV Igg positive continue fluconazole and acyclovir Thrombocytopenia will give platelet transfusion at 10 or lower Chronic anemia from anemia of ckd and from her cancer and MDS. Also has folate deficiency will transfuse prn when hb less than 7.0 Ischemic cardiomyopathy AICD Pacemaker placement December 2017. with improved EF now. CAD S/P stent 2 in 2009, 2 in 2016 CKD stage IV/Atrophic left kidney. creatinine appears to be better than baseline. Asthma/COPD continue spiriva in place of incruse albuterol prn. oxygen as needed Is not on oxygen at home. Type 2 diabetes. Levemir and lispro FS Ac and HS. CHF with preserved EF recived lasix. Now with fever and sepsis will hold off on lasix an spironolactone. Hypercholesterolemia. Known carotid artery stenosis, 50-69% bilaterally HFpEF, NYHA II LVEF of 60% in 07/05 will hold lasix and spironolactone as she is septic. Plan/VTE VTE Prophylaxis Ordered?: Yes VS, I&O, 24H, Fishbone Vital Signs/I&O Vital Signs Date Time Temp Pulse Resp B/P (MAP) Pulse Ox O2 Delivery O2 Flow Rate FiO2 04/11/20 14:01 104.0 96 39 125/54 (77) 94 Nasal Cannula 1.0 I&O- Last 24 Hours up to 6 AM 04/11/20 07:00 Intake Total 1840 ml Balance 1840 ml Laboratory Data 24H LABS Laboratory Tests 2 04/10/20 16:44: Bedside Glucose (Misc Panel) 97 04/10/20 20:12: Bedside Glucose (Misc Panel) 131H 04/11/20 05:38: Nucleated Red Blood Cells % (auto) 2.3H, Immature Platelet Fraction 3.2, Anion Gap 10, Glomerular Filtration Rate 33.5L, Calcium Level 8.5L, Total Bilirubin 1.0, Aspartate Amino Transf (AST/SGOT) 12, Alanine Aminotransferase (ALT/SGPT) 10L, Alkaline Phosphatase 113, Total Protein 5.9#L, Albumin 1.8L, Albumin/Globulin Ratio 0.4L 04/11/20 11:49: Bedside Glucose (Misc Panel) 164H 04/11/20 14:44: 04/11/20 15:07: Urine Color YELLOW, Urine Appearance CLEAR, Urine pH 6.0, Urine Specific [place] 1.012, Urine Protein 1+H, Urine Glucose (UA) NEGATIVE, Urine Ketones TRACEH, Urine Blood 1+H, Urine Nitrite NEGATIVE, Urine Bilirubin NEGATIVE, Urine Urobilinogen 2.0H, Urine Leukocyte Esterase NEGATIVE, Urine WBC (Auto) 0, Urine RBC (Auto) 2, Urine Hyaline Casts (Auto) 0, Urine Bacteria (Auto) 1+H, Urine Squamous Epithelial Cells 3, Urine Sperm (Auto) CBC/BMP Laboratory Tests 04/11/20 05:38 NEDA CORDOBA MD Apr 11, 2020 16:17
[2020-04-11] MEDS ORDERED: VANCOMYCIN HCL 1,000 MG, VIAL MATE ADAPTER 1 EACH in D5W 250 ML IV ONE (17:00)
[2020-04-11] MEDS ORDERED: VANCOMYCIN HCL 500 MG in D5W MINI-BAG PLUS 100 ML IV ONE (18:00)
[2020-04-11] MEDS: FILGRASTIM 300 MCG/0.5 ML SYRINGE (J1442 PER 1MCG) SC SCH (19:38)
[2020-04-11 22:30] VITALS: BP 131/52
[2020-04-11] MEDS: TIOTROPIUM INHALER/CAPSULE (SPIRIVA) INH SCH (22:40)
[2020-04-12] VITALS (11 sets, daily range): BP systolic 100–141; BP diastolic 51–66
[2020-04-12] MEDS: ALBUTEROL SULFATE 2.5 MG/0.5 ML INH NEB SOLN NEB PRN ×2 (00:46→05:25)
[2020-04-12] MEDS ORDERED: ACETAMINOPHEN 650 MG SUPP PR ONE (02:15)
[2020-04-12 02:41] LABS: ABG BASE EXCESS 4.1 (-2.0-2.0); ABG HCO3 25.8 MEQ/L (22.0-26.0); ABG O2 SATURATION 91.5 % (95.0-99.0); ABG PARTIAL PRESSURE O2 55.2 mmHg (75.0-100.0); ABG STANDARD HCO3 28.1 MEQ/L (22.0-26.0); ABG TOTAL CO2 26.7 MEQ/L (23.0-31.0); ABG pH (ARTERIAL) 7.583 UNITS (7.350-7.450)
[2020-04-12 02:43] LABS: HEMATOCRIT 24.8 % (36.0-47.0); HEMOGLOBIN 7.9 g/dl (12.0-15.5); MEAN CORPUSCULAR HEMOGLOBIN 27.2 pg (27.0-33.0); MEAN CORPUSCULAR HGB CONC 31.9 g/dl (32.0-36.5); MEAN CORPUSCULAR VOLUME 85.5 fl (80.0-96.0); WHITE BLOOD COUNT 2.5 10^3/uL (4.0-10.0)
[2020-04-12 02:48] LABS: PLATELET COUNT, AUTOMATED 5 10^3/uL (150-450)
--- NOTE | 2020-04-12 02:58 | REPVR ---
PROCEDURE INFORMATION: Exam: XR Chest Exam date and time: 04/12/2020 2:08 AM Age: 65 years old Clinical indication: Other: Rr >30 TECHNIQUE: Imaging protocol: XR of the chest Views: 1 view. COMPARISON: AR PORTABLE CHEST X-RAY 04/11/2020 2:24 PM FINDINGS: Tubes, catheters and devices: Right MediPort in expected location. Pacemaker is unchanged. Lungs: Worsening airspace consolidation in the left upper lobe and increasing opacities in the left lung base. Right lung remains clear. Pleural spaces: Small left pleural effusion. Heart/Mediastinum: Stable cardiomegaly. Bones/joints: Unremarkable. IMPRESSION: 1. Worsening pneumonia. 2. Small left pleural effusion. Electronically signed by: Kirit Franks On 04/12/2020 02:58:27 AM
--- NOTE | 2020-04-12 03:29 | IPNPDOC ---
Text Note Date of Service The patient was seen on 04/12/20. NOTE 325AM I called the patient's sister Yumiko Sosa to inform her that her sister has become more confused, continues to spike fevers and that she and the patient's should come to the hospital so that we can discuss the next steps in terms of how to manage the patient. They will both come to the hospital this morning. VS,Joshuabone, I+O VS, Maryjoe, I+O Laboratory Tests 04/11/20 05:38 04/12/20 02:27 Vital Signs Date Time Temp Pulse Resp B/P (MAP) Pulse Ox O2 Delivery O2 Flow Rate FiO2 04/12/20 02:14 104.4 04/12/20 02:00 95 40 141/66 (91) 89 Nasal Cannula 3.0 I&O- Last 24 Hours up to 6 AM 04/12/20 06:00 Intake Total 580 ml Output Total 0 ml Balance 580 ml BASHIR NEWELL MD Apr 12, 2020 03:29
[2020-04-12 03:31] LABS: ALBUMIN 1.9 GM/DL (3.2-5.2); BILIRUBIN,TOTAL 1.4 MG/DL (0.2-1.0); CALCIUM LEVEL 8.2 MG/DL (8.8-10.2); CREATININE FOR GFR 2.08 MG/DL (0.55-1.30); GLOMERULAR FILTRATION RATE 25.4 (>45); TOTAL PROTEIN 5.5 GM/DL (6.4-8.2)
[2020-04-12] MEDS ORDERED: SODIUM CHLORIDE 0.9% 1000ML IV ONE (03:55)
[2020-04-12] MEDS ORDERED: MICAFUNGIN SODIUM 100 MG in D5W MINI-BAG PLUS 100 ML IV SCH (04:00)
[2020-04-12 04:01] LABS: INR 1.58; PROTHROMBIN TIME 19.2 SECONDS (12.5-14.3)
[2020-04-12] MEDS: PIPERACILLIN/TAZOBACTAM SOD 3.375 GM in D5W MINI-BAG PLUS 50 ML IV SCH ×2 (05:37→08:06)
--- NOTE | 2020-04-12 05:48 | IPNPDOC ---
Text Note Date of Service The patient was seen on 04/12/20. NOTE Subjective: I was notified that patient continued to demonstrate increasing tachypnea, present earlier in the day. Having seen the patient at the time of her admiss ion, she appears quite decompensated. Patient is febrile and tachypneic despite a stable heart rate and SPO2. Objective: Gen.: Patient found in bed, able to follow simple commands, intermittent yes/no answers. Appears ill. Cardiac: Regular rate and rhythm Lungs: Tachypnea, rhonchorous at the bases bilaterally, maintaining appropriate saturation on 3 L via nasal cannula. Skin: Pale, petechiae on bilateral upper extremities Neuro: Arousable, not oriented to person place or time. Assessment/Plan: #Sepsis, neutropenic fever, suspect fungemia -Patient's symptoms continue to worsen despite broad-spectrum antibiotics. BC remain pending. -STAT beside XR appears unchanged from earlier in the day -Repeat ABG, lactic, repeat CBC, CMP, BC -Will start IV micafungin, fungal smear pending -Tylenol, ice packs and fan for fever. Consider cooling blanket. -Patient's family was contacted by Dr. Reese, asked to present to the hospital to discuss plan of care. #Thrombocytopenia -Patient has been unable to receive platelets 2/2 to persistent fever. VS,Fishbone, I+O VS, Fishbone, I+O Laboratory Tests 04/11/20 05:38 04/12/20 02:27 Vital Signs Date Time Temp Pulse Resp B/P (MAP) Pulse Ox O2 Delivery O2 Flow Rate FiO2 04/12/20 05:21 101.8 04/12/20 02:00 95 40 141/66 (91) 89 Nasal Cannula 3.0 I&O- Last 24 Hours up to 6 AM 04/12/20 06:00 Intake Total 580 ml Output Total 0 ml Balance 580 ml GME ATTESTATION GME ATTESTATION My faculty preceptor for this patient encounter was physically present during the encounter and was fully available. All aspects of the patient interview, examination, medical decision making process, and medical care plan development were reviewed and approved by the faculty preceptor. The faculty preceptor is aware and concurs with the plan as stated in the body of this note and will attest to such by his/her cosignature. OLVIN DELACRUZ DO Apr 12, 2020 05:48
[2020-04-12 06:20] LABS: HEMATOCRIT 21.9 % (36.0-47.0); MEAN CORPUSCULAR HEMOGLOBIN 27.5 pg (27.0-33.0); MEAN CORPUSCULAR VOLUME 85.9 fl (80.0-96.0); RED BLOOD COUNT 2.55 10^6/uL (4.00-5.40); WHITE BLOOD COUNT 1.7 10^3/uL (4.0-10.0)
[2020-04-12] MEDS ORDERED: NS 1,000 ML IV SCH (06:20)
[2020-04-12 06:23] LABS: PLATELET COUNT, AUTOMATED 4 10^3/uL (150-450)
[2020-04-12 06:41] LABS: CALCIUM LEVEL 7.6 MG/DL (8.8-10.2); CREATININE FOR GFR 2.01 MG/DL (0.55-1.30); GLOMERULAR FILTRATION RATE 26.5 (>45); POTASSIUM SERUM 3.5 MEQ/L (3.5-5.1)
[2020-04-12 06:43] LABS: BASOPHILS 1 % (0-1); EOSINOPHILS 1 % (0-3); LYMPHOCYTES 79 % (16-44); NEUTROPHILS 3 % (28-66); PROMYELOCYTES 1 % (0-0)
[2020-04-12 06:46] LABS: BLAST CELLS 15 % (0-0); PLATELET ESTIMATE MARKED DECREASE (NORMAL)
[2020-04-12] MEDS: TIOTROPIUM INHALER/CAPSULE (SPIRIVA) INH SCH (07:44)
[2020-04-12] MEDS: HumaLOG INSULIN (NovoLOG) PER UNIT SC SCH ×2 (08:05→11:12)
[2020-04-12] MEDS: DOCUSATE SODIUM 100MG CAPSULE PO SCH (08:06)
[2020-04-12] MEDS: VITAMIN D 1,000 INTERNATIONAL UNITS TABLET PO SCH (08:06)
[2020-04-12] MEDS: CARVedilol 12.5 MG TAB PO SCH (08:06)
[2020-04-12] MEDS: ISOSORBIDE MON. (IMDUR) 60 MG XR TAB PO SCH (08:06)
[2020-04-12] MEDS: PRAVASTATIN 20 MG TAB PO SCH (08:06)
[2020-04-12] MEDS: PANTOPRAZOLE 40MG TAB (PROTONIX) PO SCH (08:07)
[2020-04-12] MEDS: ACYCLOVIR 200 MG CAPSULE PO SCH ×2 (09:00→09:23)
[2020-04-12] MEDS: IPRATROPIUM 0.5MG/ALBUTEROL 2.5MG INH SOL UD 3ML (DUONEB) NEB SCH ×3 (12:00→20:00)
[2020-04-12] MEDS: FILGRASTIM 300 MCG/0.5 ML SYRINGE (J1442 PER 1MCG) SC SCH (12:35)
[2020-04-12 13:23] LABS: ABG HCO3 25.2 MEQ/L (22.0-26.0); ABG O2 SATURATION 88.3 % (95.0-99.0); ABG PARTIAL PRESSURE CO2 28.7 mmHg (35.0-45.0); ABG TOTAL CO2 26.1 MEQ/L (23.0-31.0); ABG pH (ARTERIAL) 7.562 UNITS (7.350-7.450)
[2020-04-12 13:28] LABS: ABG PARTIAL PRESSURE O2 49.5 mmHg (75.0-100.0)
--- NOTE | 2020-04-12 13:31 | IPNPDOC ---
Subjective Date Seen The patient was seen on 04/12/20. Subjective Chief Complaint/HPI Patient decompensating rapidly. At present she is confused, lethargic, tachypneic to 30s, requiring 8 l of oxygen. As per her wishes she wanted a trial period of noninvasive ventilation. 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 At present wilson cannot make any decisions by herself. Will get and ABG and decide on BIPAP or Vapotherm. Objective Physical Examination General Exam: Positive: Moderate Distress, Other (lethargic, confused) Eye Exam: Positive: Conjunctiva & lids normal; Negative: Sclera icteric ENT Exam: Positive: Atraumatic Neck Exam: Positive: Supple; Negative: JVD, thyromegaly Chest Exam: Positive: Rhonchi, Wheezing, Other (crackles onthe left) Heart Exam: Positive: Rate Normal, Regular Rhythm, Normal S1, Normal S2 Abdomen Exam: Positive: BS Hypoactive, Soft; Negative: Tenderness Extremity Exam: Positive: Edema, Other (bilateral leg erythema and warmth) Assessment /Plan Assessment Patient is 65 year-old female, past medical history most significant for CMML (currently receiving chemotherapy), MDS, pancytopenia transfusion dependent, CAD s/p stents, h/o ischemic cardiomyopathy s/p AICD in 2018 with Improvement of EF to 65%, CKD stage 4 baseline creatinine about 2.0, who was brought to the emergency department via EMS 04/09/20 after sustaining 2 falls at home walking to the commode. Patient reports that she "misstep", resulting in a slow falls toward the ground. Patient denies any loss of consciousness or vision changes and reports that she did not hit her head. She denies any resulting pain or injury. Wilson was medically cleared to be discharged on 04/10/20 however family 9husband and sister) felt that she was too weak to come home and they needed more help at home. So discharge was cancelled. Late morning of 04/11/20 she started becoming confused and somnolent so CT head was ordered. She spiked a fever of 104(rectally) in the afternoon. So Now she has Neutropenic fever. Spoke with Patient's Acute respiratory failure due to sepsis and pneumonia will get ABG and consider starting on BIPAP Sepsis From pneumonia and bilateral cellulitis. vanco zosyn, micofungin IVF continued in view of sepsis. Neutropenic fever from Left sided Pneumonia UA clean Vanco and zosyn adn micofungin. She has a chemo port and an AICD. Will give Neupogen until ANC 1500. Metabolic encephalopathy due to sepsis CT head no bleed. Bilateral leg red and warm ? bilateral cellulitis VS b/l stasis rubor On broad spectrum antibiotics. 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 CMV Igg positive continue acyclovir Thrombocytopenia will give platelet transfusion at 10 or lower Chronic anemia from anemia of ckd and from her cancer and MDS. Also has folate deficiency will transfuse prn when hb less than 7.0 Ischemic cardiomyopathy AICD Pacemaker placement December 2017. with improved EF now. CAD S/P stent 2 in 2009, 2 in 2016 CKD stage IV/Atrophic left kidney. baseline creatinine about 2.0 Asthma/COPD duonebs albuterol prn. Type 2 diabetes. Levemir and lispro FS Ac and HS. CHF with preserved EF Now with fever and sepsis will hold off on lasix an spironolactone. Hypercholesterolemia. hool statin Known carotid artery stenosis, 50-69% bilaterally HFpEF, NYHA II LVEF of 60% in 07/05 will hold lasix and spironolactone as she is septic. Plan/VTE VTE Prophylaxis Ordered?: Yes VS, I&O, 24H, Fishbone Vital Signs/I&O Vital Signs Date Time Temp Pulse Resp B/P (MAP) Pulse Ox O2 Delivery O2 Flow Rate FiO2 04/12/20 12:26 99.1 89 38 100/57 88 Nasal Cannula 8.0 I&O- Last 24 Hours up to 6 AM 04/12/20 06:00 Intake Total 840 ml Output Total 0 ml Balance 840 ml Laboratory Data 24H LABS Laboratory Tests 2 04/11/20 14:44: Methicillin-Resist S.aureus DNA PCR NOT DETECTED 04/11/20 15:07: Urine Color YELLOW, Urine Appearance CLEAR, Urine pH 6.0, Urine Specific [place] 1.012, Urine Protein 1+H, Urine Glucose (UA) NEGATIVE, Urine Ketones TRACEH, Urine Blood 1+H, Urine Nitrite NEGATIVE, Urine Bilirubin NEGATIVE, Urine U robilinogen 2.0H, Urine Leukocyte Esterase NEGATIVE, Urine WBC (Auto) 0, Urine RBC (Auto) 2, Urine Hyaline Casts (Auto) 0, Urine Bacteria (Auto) 1+H, Urine Squamous Epithelial Cells 3, Urine Sperm (Auto) 04/11/20 16:48: Bedside Glucose (Misc Panel) 118H 04/11/20 20:08: Bedside Glucose (Misc Panel) 152H 04/12/20 02:08: Blood Gas Bicarbonate Standard 28.1H, Arterial Blood pH 7.583H, Arterial Blood Partial Pressure CO2 28.0L, Arterial Blood Partial Pressure O2 55.2L, Arterial Blood Total CO2 26.7, Arterial Blood HCO3 25.8, Arterial Blood Base Excess 4.1H, Arterial Blood Oxygen Saturation 91.5L 04/12/20 02:27: Nucleated Red Blood Cells % (auto) 1.6H, Prothrombin Time 19.2H, Prothromb Time International Ratio 1.58, Anion Gap 7L, Glomerular Filtration Rate 25.4L, Lactic Acid Level 1.4, Calcium Level 8.2L, Total Bilirubin 1.4H, Aspartate Amino Transf (AST/SGOT) 12, Alanine Aminotransferase (ALT/SGPT) 9L, Alkaline Phosphatase 113, GT-Krz-P-Type Natriuretic Peptide [id number], Total Protein 5.5L, Albumin 1.9L, [place] min/Globulin Ratio 0.5L 04/12/20 05:59: Nucleated Red Blood Cells % (auto) 1.2H, Anion Gap 10, Glomerular Filtration Rate 26.5L, Calcium Level 7.6L, Immature Granulocyte % (Auto) , Neutrophils (%) (Auto) , Neutrophils # (Auto) , Neutrophils 3L, Lymphocytes (Manual) 79H, Eosinophils (Manual) 1, Basophils (Manual) 1, Promyelocytes 1H, Blastocytes 15H, Red Blood Cell Morphology NORMAL, Platelet Estimate MARKED DECREASE, Immature Platelet Fraction 7.0 04/12/20 11:05: Bedside Glucose (Misc Panel) 118H 04/12/20 13:10: CBC/BMP Laboratory Tests 04/12/20 02:27 04/12/20 05:59 Microbiology Microbiology 04/12/20 Blood Fungal Culture, Received Pending 04/12/20 Blood Culture, Received Pending 04/12/20 Blood Culture, Received Pending 04/11/20 Blood Culture, Received Pending 04/11/20 Blood Culture, Received Pending NEDA CORDOBA MD Apr 12, 2020 13:31
[2020-04-12] MEDS ORDERED: VANCOMYCIN HCL 750 MG, VIAL MATE ADAPTER 1 EACH in D5W 250 ML IV SCH (14:00)
[2020-04-12] MEDS ORDERED: HYOSCYAMINE SULFATE 0.125 MG SUBL TABLET PO PRN (14:15)
[2020-04-12] MEDS ORDERED: ONDANSETRON 4 MG ORAL DISINTEGRATING TAB PO PRN (14:15)
--- NOTE | 2020-04-12 14:32 | IPNPDOC ---
Text Note Date of Service The patient was seen on 04/12/20. NOTE Spoke with sister Yumiko and she and Pt's have opted to make Farida CONTROL MANAGER. Will update MOLST. VS,Antwan, I+O VS, Antwan, I+O Laboratory Tests 04/12/20 02:27 04/12/20 05:59 Vital Signs Date Time Temp Pulse Resp B/P (MAP) Pulse Ox O2 Delivery O2 Flow Rate FiO2 04/12/20 13:38 97.3 83 20 129/60 (83) 96 Nasal Cannula 8.0 I&O- Last 24 Hours up to 6 AM 04/12/20 06:00 Intake Total 840 ml Output Total 0 ml Balance 840 ml NEDA CORDOBA MD Apr 12, 2020 14:32
[2020-04-12] MEDS ORDERED: SLF 3 ML SYR IV PRN (14:45)
[2020-04-12] MEDS ORDERED: VANCOMYCIN HCL 500 MG in D5W MINI-BAG PLUS 100 ML IV SCH (15:00)
[2020-04-12] MEDS: MORPHINE 10MG/0.5ML ORAL CONCENTRATE SOLUTION U/D SL PRN (20:12)
[2020-04-12] MEDS: SLF 3 ML SYR IV SCH (21:16)
[2020-04-12] MEDS: ACETAMINOPHEN 650 MG SUPP PR PRN (23:04)
[2020-04-13] MEDS: SLF 3 ML SYR IV SCH ×2 (06:08→13:07)
[2020-04-13] MEDS: MORPHINE 10MG/0.5ML ORAL CONCENTRATE SOLUTION U/D SL PRN ×2 (06:08→21:31)
[2020-04-13] MEDS: IPRATROPIUM 0.5MG/ALBUTEROL 2.5MG INH SOL UD 3ML (DUONEB) NEB SCH ×6 (07:43→19:21)
[2020-04-13 10:00] VITALS: BP 122/57
[2020-04-13] MEDS: TIOTROPIUM INHALER/CAPSULE (SPIRIVA) INH SCH (11:03)
--- NOTE | 2020-04-13 11:07 | IPNPDOC ---
Subjective Date Seen The patient was seen on 04/13/20. Subjective Chief Complaint/HPI Patient is dramatically looking better today. She is awake and alert and sitting up and having juice. and sister are at bedside. She did have a temp of 101.1 last night. Objective Physical Examination General Exam: Positive: Alert, Cooperative, No Acute Distress, Other Eye Exam: Positive: Conjunctiva & lids normal; Negative: Sclera icteric ENT Exam: Positive: Atraumatic Neck Exam: Positive: Supple; Negative: JVD, thyromegaly Chest Exam: Positive: Rhonchi, Wheezing, Diminished, Other (crackles onthe left) Heart Exam: Positive: Rate Normal, Regular Rhythm, Normal S1, Normal S2 Abdomen Exam: Positive: Soft; Negative: Tenderness Extremity Exam: Positive: Other (bilateral leg erythema and warmth) Assessment /Plan Assessment Patient is 65 year-old female, past medical history most significant for CMML (currently receiving chemotherapy), MDS, pancytopenia transfusion dependent, CAD s/p stents, h/o ischemic cardiomyopathy s/p AICD in 2017 with Improvement of EF to 65%, CKD stage 4 baseline creatinine about 2.0, who was brought to the emergency department via EMS 04/09/20 after sustaining 2 falls at home walking to the commode. Late morning of 04/11/20 she started becoming confused and somnolent so CT head was ordered. She spiked a fever of 104(rectally) in the afternoon. She was found to have Pneumonia and sepsis with acute respiratory failure and acute metabolic encephalopathy. Advance directives were readdressed with HCPs and they wnated to transition her to [employer] status with the intension to taking her home with home hospice. [employer] status will continue with [employer] medications regular diet oxygen for comfort hospice consult. Acute respiratory failure due to sepsis and pneumonia oxygen supplementation for comfort. Sepsis From pneumonia and bilateral cellulitis. will give cefdinir to finish 7 days of antibiotics Neutropenic fever from Left sided Pneumonia UA clean, blood cultures are negative till date. cefdinir. Metabolic encephalopathy due to sepsis CT head no bleed. ? 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 Ischemic cardiomyopathy AICD Pacemaker placement December 2017. with improved EF now. CAD S/P stent 2 in 2009, 2 in 2017 CKD stage IV/Atrophic left kidney. baseline creatinine about 2.0 Asthma/COPD duonebs spiriva in place of incruse Type 2 diabetes. poor oral intake will dc insulin and antibiabetic meds. CHF with preserved EF euvolemia will stop diuretics. will keep lasix as prn. Hypercholesterolemia. stop statin Plan/VTE VTE Prophylaxis Ordered?: No VS, I&O, 24H, Fishbone Vital Signs/I&O Vital Signs Date Time Temp Pulse Resp B/P (MAP) Pulse Ox O2 Delivery O2 Flow Rate FiO2 04/13/20 10:00 98.0 85 24 122/57 (78) 92 Nasal Cannula 6.0 I&O- Last 24 Hours up to 6 AM 04/13/20 06:00 Intake Total 930 ml Output Total 0 ml Balance 930 ml Laboratory Data 24H LABS Laboratory Tests 2 04/12/20 11:05: Bedside Glucose (Misc Panel) 118H 04/12/20 13:10: Blood Gas Bicarbonate Standard 27.0H, Arterial Blood pH 7.562H, Arterial Blood Partial Pressure CO2 28.7L, Arterial Blood Partial Pressure O2 49.5*L, Arterial Blood Total CO2 26.1, Arterial Blood HCO3 25.2, Arterial Blood Base Excess 3.0H, Arterial Blood Oxygen Saturation 88.3L 04/12/20 13:13: Vancomycin Level Trough 18.5 Microbiology Microbiology 04/12/20 Blood Fungal Culture, Received Pending 04/12/20 Blood Culture - Preliminary, Resulted No growth after 24 hours . All specim... 04/12/20 Blood Culture - Preliminary, Resulted No growth after 24 hours . All specim... 04/11/20 Blood Culture - Preliminary, Resulted No growth after 24 hours . All specim... 04/11/20 Blood Culture - Preliminary, Resulted No growth after 24 hours . All specim... NEDA CORDOBA MD Apr 13, 2020 11:07
[2020-04-13] MEDS: PANTOPRAZOLE 40MG TAB (PROTONIX) PO SCH (11:11)
[2020-04-13] MEDS: FLUCONAZOLE 100 MG TAB PO SCH (11:11)
[2020-04-13] MEDS: ACYCLOVIR 200 MG CAPSULE PO SCH ×3 (11:12→21:29)
[2020-04-13] MEDS: CEFDINIR 300 MG CAP (OMNICEF) PO SCH ×2 (13:07→21:29)
[2020-04-13] MEDS ORDERED: SODIUM CHLORIDE NASAL 0.65% SPRAY BTL (OCEAN) PRN (22:35)
[2020-04-14] MEDS: MORPHINE 10MG/0.5ML ORAL CONCENTRATE SOLUTION U/D SL PRN ×5 (00:27→18:38)
[2020-04-14] MEDS: ACETAMINOPHEN 650 MG SUPP PR PRN ×2 (00:37→19:02)
[2020-04-14] MEDS: TIOTROPIUM INHALER/CAPSULE (SPIRIVA) INH SCH (07:56)
[2020-04-14] MEDS: IPRATROPIUM 0.5MG/ALBUTEROL 2.5MG INH SOL UD 3ML (DUONEB) NEB SCH ×4 (07:57→19:31)
[2020-04-14] MEDS: PANTOPRAZOLE 40MG TAB (PROTONIX) PO SCH (08:08)
[2020-04-14] MEDS: FLUCONAZOLE 100 MG TAB PO SCH (08:09)
[2020-04-14] MEDS: CEFDINIR 300 MG CAP (OMNICEF) PO SCH ×2 (08:09→21:02)
[2020-04-14] MEDS: LORazepam 1 MG TAB PO PRN ×3 (08:09→21:02)
[2020-04-14] MEDS: ACYCLOVIR 200 MG CAPSULE PO SCH ×3 (08:09→21:02)
[2020-04-15] MEDS: MORPHINE 10MG/0.5ML ORAL CONCENTRATE SOLUTION U/D SL PRN ×4 (06:13→21:15)
[2020-04-15] MEDS: TIOTROPIUM INHALER/CAPSULE (SPIRIVA) INH SCH ×2 (07:31→07:33)
[2020-04-15] MEDS: IPRATROPIUM 0.5MG/ALBUTEROL 2.5MG INH SOL UD 3ML (DUONEB) NEB SCH ×4 (07:31→20:19)
[2020-04-15] MEDS: ACYCLOVIR 200 MG CAPSULE PO SCH ×3 (09:00→20:35)
[2020-04-15] MEDS: CEFDINIR 300 MG CAP (OMNICEF) PO SCH ×2 (09:00→20:35)
[2020-04-15] MEDS: PANTOPRAZOLE 40MG TAB (PROTONIX) PO SCH (09:00)
[2020-04-15] MEDS: FLUCONAZOLE 100 MG TAB PO SCH (09:00)
[2020-04-15] MEDS: LORazepam 1 MG TAB PO PRN ×2 (13:45→20:59)
[2020-04-16] MEDS: LORazepam 1 MG TAB PO PRN ×2 (05:07→10:46)
[2020-04-16] MEDS: MORPHINE 10MG/0.5ML ORAL CONCENTRATE SOLUTION U/D SL PRN ×3 (05:07→18:20)
[2020-04-16] MEDS: IPRATROPIUM 0.5MG/ALBUTEROL 2.5MG INH SOL UD 3ML (DUONEB) NEB SCH ×4 (07:38→19:54)
[2020-04-16] MEDS: TIOTROPIUM INHALER/CAPSULE (SPIRIVA) INH SCH (07:38)
[2020-04-16] MEDS: FLUCONAZOLE 100 MG TAB PO SCH (08:09)
[2020-04-16] MEDS: ACYCLOVIR 200 MG CAPSULE PO SCH ×3 (08:10→21:00)
[2020-04-16] MEDS: CEFDINIR 300 MG CAP (OMNICEF) PO SCH ×2 (08:10→21:00)
[2020-04-16] MEDS: PANTOPRAZOLE 40MG TAB (PROTONIX) PO SCH (08:10)
--- NOTE | 2020-04-25 16:20 | DS.PDOC ---
Discharge Summary General Date of Admission Apr 11, 2020 at 22:52 Date of Discharge 04/17/20 Discharge Summary PROCEDURES PERFORMED DURING STAY: [None]. DISCHARGE DIAGNOSES: Acute respiratory failure Acute Metabolic Encephalopathy Pneumonia Sepsis Cellulitis Neutropenic Fever Pancytopenia Chronic Myelomonocytic Leukemia MDS CAD s/p stents, h/o ischemic cardiomyopathy s/p AICD in 2018 with Improvement of EF to 65%, CKD stage 4 DM HLD COPD COMPLICATIONS/CHIEF COMPLAINT: FALL. HOSPITAL COURSE: Patient is 65 year-old female, past medical history most significant for CMML (currently receiving chemotherapy), MDS, pancytopenia transfusion dependent, CAD s/p stents, h/o ischemic cardiomyopathy s/p AICD in 2018 with Improvement of EF to 65%, CKD stage 4 baseline creatinine about 2.0, who was brought to the emergency department via EMS 04/09/20 after sustaining 2 falls at home walking to the commode. Late morning of 04/11/20 she started becoming confused and somnolent so CT head was ordered. She spiked a fever of 104(rectally) in the afternoon. She was found to have Pneumonia and sepsis with acute respiratory failure and acute metabolic encephalopathy. She was very pancytopenia and recieved PRBCs, Platelet and neupogen. Advance directives were readdressed with HCPs and they wanted to transition her to BAKER PIE status on 04/13/20 with the intension to take her home with home hospice once all arrangements could be set up at home. Her AICD was switched off. Patient continued to worsen and subsequently peacefully on 04/17/20 with family at bedside. DISPOSITION: 20 . TIME SPENT ON DISCHARGE: 25 minutes. Discharge Medications Scheduled Acyclovir (Acyclovir) 200 Mg Capsule, 400 MG PO TID, (Reported) Amlodipine Besylate (Amlodipine Besylate) 5 Mg Tablet, 5 MG PO DAILY, (Reported) Carvedilol (Carvedilol) 12.5 Mg Tab, 12.5 MG PO BID, (Reported) Carvedilol (Coreg) 6.25 Mg Tablet, 6.25 MG PO BID Eltrombopag Olamine (Promacta) 25 Mg Tablet, 25 MG PO DAILY, (Reported) Fluconazole (Fluconazole) 200 Mg Tablet, 200 MG PO DAILY, (Reported) Insulin Glargine,Hum.rec.anlog (Basaglar Kwikpen U-100) 100 Unit/1 Ml Insuln.pen, 30 UNIT SC QHS, (Reported) Insulin Human Lispro (Humalog) 100 Unit/1 Ml Vial, 1 DOSE SC AC, (Reported) SLIDING SCALE Isosorbide Mononitrate (Isosorbide Mononitrate ER) 60 Mg Tab, 60 MG PO DAILY, (Reported) Pantoprazole Sodium (Pantoprazole Sodium) 40 Mg Tablet.dr, 40 MG PO DAILY, (Reported) Pravastatin Sodium (Pravastatin Sodium) 40 Mg Tablet, 40 MG PO DAILY, (Reported) Spironolactone (Spironolactone) 100 Mg Tablet, 100 MG PO DAILY, (Reported) Umeclidinium [place] (Incruse Ellipta) 62.5 Mcg Blst.w.dev, 1 PUFF INH DAILY, (Reported) Scheduled PRN Acetaminophen (Acetaminophen) 500 Mg Tablet, 1,000 MG PO Q6H PRN for PAIN, (Reported) Lidocaine (Lidocaine) 5% Adh..patch, 1 PATCH TOP DAILY PRN for PAIN, (Reported) USES ON BACK Allergies Coded Allergies: losartan (Verified Allergy, Severe, throat swelling, 06/28/18) NEDA CORDOBA MD Apr 25, 2020 16:20
== END 2020-04-17 03:45 | disposition expired | DRG 871 ==
LOC: M ED 21:58 → M ED INP 21:59 → M MSPAV 04-10 06:31 → OBSVTOIN 04-11 22:52 → M PCU 04-12 06:57 → M MS5PR 04-13 16:00
PROVIDERS: ADMIT Internal Medicine; ATTEND Internal Medicine Nephrology
PROC: 30233R1 Transfusion of Nonautologous Platelets into Peripheral Vein, Percutaneous Approach (ICD-10-PCS; principal; 2020-04-12)
DX: A41.9 Sepsis, unspecified organism (principal); J18.9 Pneumonia, unspecified organism; J96.01 Acute respiratory failure with hypoxia; G93.41 Metabolic encephalopathy; D61.810 Antineoplastic chemotherapy induced pancytopenia; I50.32 Chronic diastolic (congestive) heart failure; C93.90 Monocytic leukemia, unspecified, not having achieved remission; N18.4 Chronic kidney disease, stage 4 (severe); I25.5 Ischemic cardiomyopathy; Z51.5 Encounter for palliative care; Z66 Do not resuscitate; F17.210 Nicotine dependence, cigarettes, uncomplicated; D69.6 Thrombocytopenia, unspecified; D63.1 Anemia in chronic kidney disease; E87.6 Hypokalemia; D70.9 Neutropenia, unspecified; D63.0 Anemia in neoplastic disease; E11.22 Type 2 diabetes mellitus with diabetic chronic kidney disease; E78.5 Hyperlipidemia, unspecified; J44.9 Chronic obstructive pulmonary disease, unspecified; Z95.810 Presence of automatic (implantable) cardiac defibrillator; N26.1 Atrophy of kidney (terminal); I65.23 Occlusion and stenosis of bilateral carotid arteries; Z79.4 Long term (current) use of insulin; Z79.899 Other long term (current) drug therapy; Z88.8 Allergy status to other drugs, medicaments and biological substances